=== PATIENT | male | born 1950 | race Caucasian/White ===

== ENCOUNTER → 2019-09-01 08:01 | Outpatient (BNVA) | payer MEDICARE, SELFPAY | PROVIDERS: Family Provider Physician Assistant; PCP Physician Assistant; Referring Provider Physician Assistant; Visit Provider Podiatrist Foot & Ankle Surgery | DX: E11.621 Type 2 diabetes mellitus with foot ulcer (principal); L97.509 Non-pressure chronic ulcer of other part of unspecified foot with unspecified severity | CPT/HCPCS: 73630 ==

== ENCOUNTER 2019-09-01 13:33 | Outpatient (CLI) | payer MEDICARE, SELFPAY | END 2019-09-01 13:34 | disposition home or self-care (01) | LOC: SPT 13:34 | PROVIDERS: Family Provider Physician Assistant; PCP Physician Assistant; Visit Provider Podiatrist Foot & Ankle Surgery | DX: L97.512 Non-pressure chronic ulcer of other part of right foot with fat layer exposed (principal) | CPT/HCPCS: L4361 ==

== ENCOUNTER 2019-09-16 13:18 | Observation (INO) | payer MEDICARE, SELFPAY ==
[2019-09-15 15:12] VITALS: BMI 28.4
[2019-09-16] VITALS (36 sets, daily range): BP systolic 123–204; BP diastolic 67–115; PULSE 82–115; RESP 7–28; TEMP 36.8–37; O2SAT 96–99
--- NOTE | 2019-09-16 07:00 | XACV_ITS ---
Wt: 93 kg BSA: 2.17 m2 Any Known Allergies: Penicillins Gender: Male : 1950 Exam Type: Invasive Peripheral Vascular Procedure(s): Procedure Description: Peripheral Cath Diagnostic Procedure Procedure Description: Peripheral vascular Intervention Procedure Description: PV Balloon Exam Priority: Routine Abdominal Diagnostic Findings Patient has peripheral arterial disease with a positive noninvasive study. He presents with limb ischemia due to nonhealing ulcers of the right toe and right heel. Lower abdominal aorta contains mild plaquing but is essentially a normal study. Lower Extremity Diagnostic Findings Patient has limb ischemia with ulcers of the right heel and the right toe. Noninvasive studies suggest SFA disease. Patient is [place] grade II, category 5; [place] stage IV. Both common iliacs are without significant disease. The internal iliacs are patent. Both external iliacs and common femoral arteries are without significant disease. On the right, there is a flush occlusion of the superficial femoral artery. This occlusion extends down to the adductor canal and the vessel reconstitutes via collaterals from the profunda. The popliteal has mild to moderate diffuse disease. The anterior tibial is occluded. There is severe diffuse disease of the tibial peroneal trunk. There is one-vessel runoff below the right knee. This appears to be the peroneal artery. It is mildly diffusely diseased. The posterior tibial artery is occluded. Lower Extremity Interventional Findings A crossover sheath was placed from the left common femoral artery. There was a flush occlusion of the vessel however I was able to place a wire down the superficial femoral artery. Plain old balloon angioplasty was unsuccessful. Some plaque was transferred into the profunda femoris. Atherectomy was performed which opened the artery. This was followed by drug-eluting balloon angioplasty. Subsequent to this, several more plain old balloon angioplasty procedures had to be performed in order to open the vessel. An adequate angiographic result was obtained. Conclusions Occlusion of the right superficial femoral artery from the origin down to the adductor canal. Difficult procedure with difficulty placing the wire. Plain old balloon angioplasty was unsuccessful. Atherectomy performed followed by drug-eluting balloon angioplasty. The vessel was open with minimal plaquing and minimal narrowing at the end of the procedure. Patient was hypertensive. Intra-arterial nitroglycerin was used frequently. The end result was adequate. No complications occurred during the procedure and required no further treatment. null was treated with 4 Balloon. Recommendations Continue current medical management and risk factor modification. Follow up with PCP as directed. Hemodynamic Data Phase:Rest AO : 175.0 mmHg / 114.0 mmHg ( 144.0 mmHg ) @ 2:52:00 AM 230.0 mmHg / 98.0 mmHg ( 157.0 mmHg ) @ 3:21:00 AM Access Site Site: Left Femoral artery Sheath Size: 6 Fr Hemost... Method: Suture Hemost... Success: Successful Procedure Details Findings Procedure Consent Obtained. Pre-Procedure Time Out. Identified patient by full name and date of as verbalized by the patient/guarantor. Does the consent match the physician's order: Yes. Accurate & Complete Informed Consent: Yes. Inpatient/Outpatient History & Physical on Chart: Yes. If H&P is completed, is and addenduem needed: No; If yes, is the addendum complete: N/A. Visualize and Verify Site with Patient/Guarantor: N/A. Relevant Radiology Images available: N/A. Pre-op teaching completed and patient verbalized understanding. The risks, benefits, and alternatives of sedation and/or procedure were discussed by physician. The patient agrees to continue. Procedure started. Correct patient, site and procedure confirmed by cath team. PERRLA. Strong, equal hand wrapper hands sprayer bilaterally. Lungs clear x 5 lobes. IV Site on Arrival: 20 gauge in the right anticubital. IV Fluids: 0.9% NaCl at KVO. 0 mL infused prior to sanitation laborer. Pre Procedural Pulses: bilateral dorsalis pedis was Doppled. Pre Procedural Pulses: bilateral posterior tibial was Doppled. Pre Procedural Pulses: bilateral radial was 3+. Oxygen started at 2liters/min via nasal canula. bilateral groins was prepped with chloroprep then draped in the usual sterile fashion. Physician notified. Baseline sample Acquired. HR: 95 BPM. Equipment: Peripheral. Cardiac Cath Pack. ACIST Manifold Kit Model BT 2000. Heparinized Saline (2 units/mL), 1000 mL bag. Physician arrived. Physician scrubbed in. Time out performed with cath team. Lidocaine 1% infiltrated to the left groin. Arterial access obtained. A 5Fr Contra catheter in over wire. Abdominal aortogram performed in AP @ 10 mL/sec for a total of 30 mL. Glidewire inserted. Catheter removed over the glide wire. A JJ 5F RIM 65 cm Diagnostic Catheter was advanced over the wire and used for Lower extremity arteriography. Right leg runoff 10 ml for total of 30 ml. Glidewire inserted. Catheter removed over the glide wire. Short 6 fr sheath exchanged for long 45 cm 6 fr Flexor sheath. Patient's family updated. SEEKER support catheter inserted over glidewire. Glidewire out. Hand injection performed. Glidewire inserted. SEEKER catheter removed over Glidewire. Side port of sheath attached to Normal Saline flush at KVO to maintain patency. Inflation number : 1 A AB [place] 35 INSURANCE FOLLOW UP REP Catheter [id number] was prepped and advanced across the Superficial Femoral, Right , then inflated to 6 BETTY for 0:49 seconds. Balloon pulled back into sheath to check results. Balloon back down. Inflation number: 2 The AB [place] 35 INSURANCE FOLLOW UP REP Catheter [id number] was reinflated across the Superficial Femoral, Right, to 6 BETTY for 1:05 seconds. Balloon out over wire. Results checked. SEEKER catheter inserted over Glidewire. Glidewire out. VIPERwire inserted through SEEKER catheter. SEEKER catheter out over VIPER wire. [place] 360 Peripheral atherectomy 2.00mm device inserted over VIPER wire. Orbital atherectomy performed in right SFA. Orbital atherectomy performed in right SFA. Orbital atherectomy performed in right SFA. Orbital atherectomy performed in right SFA. Orbital atherectomy performed in right SFA. Orbital atherectomy performed in right SFA. Family updated. Atherectomy device pulled back on wire to check results. Atherectomy device removed over VIPER wire. SEEKER catheter inserted over VIPER wire. Michel Reyes, ATMOSPHERIC PHYSICIST was relieved by Shreya Luevano RT as monitoring person. VIPER wire out. [place] wire inserted. Seeker out over glide wire. Inflation number : 3 A BARD 5FR Lutinox [id number] drug coated balloon was prepped and advanced across the Superficial Femoral, Right , then inflated to 7 BETTY for 1:02 seconds. Inflation number: 4 The BARD 5FR Lutinox [id number] drug coated balloon was reinflated across the Superficial Femoral, Right, to 7 BETTY for 1:02 seconds. Inflation number: 5 The BARD 5FR Lutinox [id number] drug coated balloon was reinflated across the Superficial Femoral, Right, to 7 BETTY for 1:02 seconds. family updated. Inflation number: 6 The BARD 5FR Lutinox [id number] drug coated balloon was reinflated across the Superficial Femoral, Right, to 10 BETTY for 1:04 seconds. Balloon out. checking results. Inflation number : 7 A AB [place] 35 OTW [id number] was prepped and advanced across the Superficial Femoral, Right , then inflated to 6 BETTY for 0:31 seconds. Inflation number: 8 The AB [place] 35 OTW [id number] was reinflated across the Superficial Femoral, Right, to 6 BTETY for 0:31 seconds. Inflation number: 9 The AB [place] 35 OTW [id number] was reinflated across the Superficial Femoral, Right, to 8 BETTY for 0:51 seconds. Inflation number: 10 The AB [place] 35 OTW [id number] was reinflated across the Superficial Femoral, Right, to 8 BETTY for 0:32 seconds. Balloon out. Inflation number : 11 A AB [place] 35 OTW [id number] was prepped and advanced across the Superficial Femoral, Right , then inflated to 8 BETTY for 1:02 seconds. Balloon out. checking results. Sheath upsized to a 6 Fr. Sheath(s) sutured into position with 2-0 silk and sterile 4x4's and Op-site applied over the site. No oozing or signs and symptoms of hematoma noted. Arterial sheath flushed and connected to tranducer and pressure bag with heparinized saline. Post Procedure: Pulses reassessed and unchanged. PERRLA. Strong, equal hand wrapper hands sprayer bilaterally. No VTE prophylaxis required. Total IV fluids: 137 mL. Contrast type used: Visipaque 320 mgI/mL, 500 mL bottle. Contrast Material : Visipaque 291 ml. Medication's Wasted: Heparin = 4000 units. Medication's Wasted: Lidocaine 1% = 10 mL. Medication's Wasted: Other = verapamil 3 mg. Post-op diagnosis: PAD. Complications: none. Estimated blood loss: 5mL-10mL. A Suture was successful obtaining hemostatsis at the Left Femoral artery insertion site. Procedure completed. Patient transferred by bed to CPRU. Vital chart was stopped. Procedure Medications Start: 8:36 AM Stop: 8:36 AM Medication: Versed Amount: 1 mg Route: I.V. Start: 8:36 AM Stop: 8:36 AM Medication: Fentanyl Amount: 50 mcg Route: I.V. Start: 8:43 AM Stop: 8:43 AM Medication: Versed Amount: 1 mg Route: I.V. Start: 8:43 AM Stop: 8:43 AM Medication: Fentanyl Amount: 50 mcg Route: I.V. Start: 9:05 AM Stop: 9:05 AM Medication: Versed Amount: 1 mg Route: I.V. Start: 9:05 AM Stop: 9:05 AM Medication: Fentanyl Amount: 50 mcg Route: I.V. Start: 9:12 AM Stop: 9:12 AM Medication: Versed Amount: 1 mg Route: I.V. Start: 9:12 AM Stop: 9:12 AM Medication: Fentanyl Amount: 50 mcg Route: I.V. Start: 9:32 AM Stop: 9:32 AM Medication: Versed Amount: 1 mg Route: I.V. Start: 9:32 AM Stop: 9:32 AM Medication: Fentanyl Amount: 50 mcg Route: I.V. Start: 9:56 AM Stop: 9:56 AM Medication: Nitrogylcerin Amount: 400 mcg Route: I.A. Start: 9:56 AM Stop: 9:56 AM Medication: Nitrogylcerin Amount: 400 mcg Route: I.A. Start: 9:58 AM Stop: 9:58 AM Medication: Versed Amount: 1 mg Route: I.V. Start: 9:59 AM Stop: 9:59 AM Medication: Fentanyl Amount: 50 mcg Route: I.V. Start: 10:00 AM Stop: 10:00 AM Medication: Nitrogylcerin Amount: 400 mcg Route: I.A. Start: 10:07 AM Stop: 10:07 AM Medication: Nitrogylcerin Amount: 400 mcg Route: I.A. Start: 10:11 AM Stop: 10:11 AM Medication: Nitrogylcerin Amount: 400 mcg Route: I.A. Start: 10:20 AM Stop: 10:20 AM Medication: Plavix Amount: 600 mg Route: P.O. I, the attending physician, have reviewed and verified all procedure medications. Yes, all medications given per verbal order History/Risk Factors Hypertension: Yes Dyslipidemia: No Diabetic Therapy: Insulin Peripheral Arterial Disease (PAD): Yes Myocardial Infarction ([place]): No Obesity: No Renal Disease: No Tobacco Use: Never Prior Interventions PCI: No CABG: No Valve Surgery: No Report Signatures Finalized by:Dr. Domenico Munguia MD on 09/16/2019 10:38:02 AM
[2019-09-16 07:48] LABS: Basophils # 0.1 10^3/uL (0.0-0.1); Basophils % 0.9 %; Eosinophils # 0.4 10^3/uL (0.0-0.8); Hematocrit 42.3 % (42.0-52.0); Hemoglobin 14.1 g/dL (11.7-16.6); Lymphocytes # 3.6 10^3/uL (0.8-4.8); Lymphocytes % 37.7 %; Mean Corpuscular HGB Conc 33.3 g/dL (30.0-36.0); Mean Corpuscular Hemoglobin 29.9 pg (28.0-34.0); Mean Corpuscular Volume 89.8 fL (80-94); Monocytes # 0.5 10^3/uL (0.2-0.9); Monocytes % 5.5 %; Neutrophils % 51.7 %; Nucleated Red Blood Cells % 0 %; Platelet Count 272 10^3/cmm (130-400); Red Blood Count 4.71 10^6/uL (4.1-5.3); Red Cell Distribution Width 11.9 % (12.1-15.1); White Blood Count 9.6 10^3/uL (4.0-10.0)
[2019-09-16 07:54] LABS: Anion Gap 14.5 (5-19); Blood Urea Nitrogen 26 mg/dL (8-23); Calcium 9.5 mg/dL (8.5-10.5); Carbon Dioxide 27 mmol/L (22-29); Chloride 104 mmol/L (98-107); Glomerular Filtration Rate 55.1 mL/min (90-130); Glucose 236 mg/dL (65-115); Osmolality Calculated 297 mOsm/kg (285-295); Potassium 4.5 mmol/L (3.5-5.1); Sodium 141 mmol/L (136-145)
[2019-09-16] MEDS: diphenhydrAMINE 50 mg Capsule PO (07:55)
--- NOTE | 2019-09-16 10:47 | SUR.PHASEI ---
Post Procedure Note Post cath. Returned to CPRU 3 via bed. Patient has no c/o. VS and assessments per flowsheet. Call light given. Informed to call for needs.
--- NOTE | 2019-09-16 10:50 | SUR.PHASEI ---
IV fluids Iv fluids running at 100 ml/hr as ordered post procedure by Dr Munguia.
--- NOTE | 2019-09-16 11:34 | SUR.PHASEI ---
BLOOD PRESSURE HIGH Dr Munguia notified of consistent b/p reading 190/100's. No other c/o noted. Verbal prn b/p med orders received.
[2019-09-16] MEDS: hyDRALAzine 20 mg/mL INJ 1 mL 10 MG IVP ×2 (11:54→14:06)
[2019-09-16] MEDS: fentaNYL 50 mcg/mL INJ 2mL IVP (15:24)
--- NOTE | 2019-09-16 19:03 | PC.NURSE ---
Addendum entered by Ajith Rodrigues RN 09/16/19 19:07: see note Original Note: all flow cardiac flow sheet vitals are documented in vitals.
--- NOTE | 2019-09-16 22:41 | PC.NURSE ---
Patient ambulated in russ with nurse. Patient pulses were doppled in both feet and both feet are warm. Patient states that he has pain in his right leg. Dr. Olvera notified. Oxycodone 5-325 mg ordered for q4 hour for pain. Dressing to left groin c/d/i. No bleeding or hematoma noted. VSS before and after ambulation.
[2019-09-16] MEDS: oxyCODONE-APAP 5-325 mg Tablet 1 TAB PO (23:02)
--- NOTE | 2019-09-16 23:17 | PC.NURSE ---
NS bag was showing up due at 10 AM. Order states to give 100 ml/hr for 8 hours. Asked day shift nurse to clarify if a bag had been hung and due to a computer glitch or something it did not save the scan. Nurse stated that patient had received their 8 hours of NS per order.
[2019-09-17] VITALS (8 sets, daily range): BP systolic 120–164; BP diastolic 65–81; PULSE 88–95; RESP 15–20; TEMP 36.6–36.8; O2SAT 94–971
[2019-09-17 04:48] LABS: Basophils # 0.1 10^3/uL (0.0-0.1); Basophils % 0.6 %; Eosinophils # 0.3 10^3/uL (0.0-0.8); Eosinophils % 2.7 %; Hematocrit 36.1 % (42.0-52.0); Hemoglobin 11.6 g/dL (11.7-16.6); Lymphocytes # 2.8 10^3/uL (0.8-4.8); Mean Corpuscular HGB Conc 32.1 g/dL (30.0-36.0); Mean Corpuscular Hemoglobin 29.1 pg (28.0-34.0); Mean Corpuscular Volume 90.7 fL (80-94); Monocytes # 0.7 10^3/uL (0.2-0.9); Monocytes % 7.4 %; Neutrophils # 5.8 10^3/uL (1.8-7.7); Neutrophils % 60.1 %; Nucleated Red Blood Cells % 0 %; Platelet Count 214 10^3/cmm (130-400); Red Blood Count 3.98 10^6/uL (4.1-5.3); Red Cell Distribution Width 12.1 % (12.1-15.1); White Blood Count 9.6 10^3/uL (4.0-10.0)
[2019-09-17 05:13] LABS: Anion Gap 13.5 (5-19); Blood Urea Nitrogen 25 mg/dL (8-23); Calcium 8.6 mg/dL (8.5-10.5); Carbon Dioxide 26 mmol/L (22-29); Chloride 104 mmol/L (98-107); Glomerular Filtration Rate 60.4 mL/min (90-130); Glucose 296 mg/dL (65-115); Osmolality Calculated 296 mOsm/kg (285-295); Potassium 4.5 mmol/L (3.5-5.1); Sodium 139 mmol/L (136-145)
--- NOTE | 2019-09-17 07:17 | PM.PN ---
Subjective Subjective: Interval history: Usman underwent intervention to his right superficial femoral artery yesterday via the left common femoral artery. He underwent balloon angioplasty, followed by atherectomy and then drug-eluting balloon angioplasty. The vessel was patent with reasonable flow at the end of the procedure. Patient has had pain in his thigh and in his leg since the procedure. He required some narcotic pain relievers last evening. He is still having some pain this morning. He is nervous about going home. His leg has been warm overnight. He was very hypertensive in the cardiac catheterization laboratory. He was hypertensive for a short period of time after the procedure. Overnight his blood pressure has settled down. Medications: Reviewed: Yes Vitals/I&O/Wt Last Vital Signs Temp 98 F 09/17/19 04:43 Pulse 90 09/17/19 04:43 Resp 19 H 09/17/19 04:43 BP 135/68 09/17/19 04:43 Pulse Ox 97 09/17/19 04:43 09/16/19 09/17/19 09/17/19 22:59 06:59 14:59 Intake Total 500 / 1060 300 / 1360 Output Total 1100 / 1100 Balance -600 / -40 300 / 260 Weight last 48 hrs Weight 204 lb Physical Exam Narrative: EXAM NARRATIVE: GENERAL: In general he looks and feels well but complains of some pain in his right thigh and his right ankle. HEENT: Exam within normal limits. NECK: Supple without jugular vein distention. The carotid upstroke is normal without bruits. BACK: Exam normal. LUNGS: Clear. HEART: Regular rate and rhythm. ABDOMEN: Benign without organomegaly or tenderness. EXTREMITIES: No edema. The left groin entry site is flat and dry without any bleeding, hematoma or other vascular anomaly. The right leg is warm. There are no abnormalities of the thigh, lower leg or foot. No palpable pulses are present. NEUROLOGIC: Exam normal. SKIN: Unremarkable. Data : 09/17/19 04:20 09/17/19 04:20 A&P Assessment and plan (1) Peripheral arterial disease: Status: Acute Code(s): I73.9 - Peripheral vascular disease, unspecified (2) Chronic ulcer of great toe of right foot with fat layer exposed: Status: Acute Code(s): L97.512 - Non-pressure chronic ulcer of other part of right foot with fat layer exposed (3) Diabetes: Status: Acute Code(s): E11.9 - Type 2 diabetes mellitus without complications (4) HTN (hypertension): Status: Acute Code(s): I10 - Essential (primary) hypertension Additional A&P Information He is uncomfortable going home given the degree of pain he has. We will hold onto him today. I will get him some pain medications and encouraged him to get up and around. His leg is warm. He has very poor if any flow below the knee so there is some possibility of some distal embolization which may be causing the pain in the foot. He did have some fairly significant pain during the atherectomy procedure. This may be residual causing the pain in the thigh. We will get him up and around today and see how he does. I will continue the Plavix. Attestations Medical Necessity Statement*: Patient needs to be changed to an inpatient. He is having too much pain to go home today. Coding Level of Care Code Acute Program/Music Director for Abdirizak Fwwilber History Detailed Exam Detailed Medical Decision Making Moderate Complexity Diagnoses Peripheral arterial disease I73.9 Chronic ulcer of great toe of right foot with fat layer exposed L97.512 Diabetes E11.9 HTN (hypertension) I10
[2019-09-17] MEDS: metoprolol succinate ER (24 HR) 25 mg Tablet 12.5 MG PO (08:53)
[2019-09-17] MEDS: clopidogrel 75 mg Tablet PO (08:54)
[2019-09-17] MEDS: lisinopril 20 mg Tablet PO (08:54)
[2019-09-17] MEDS: oxyCODONE-APAP 5-325 mg Tablet 2 TAB PO (08:55)
--- NOTE | 2019-09-17 16:03 | PC.CHAP ---
Pastoral Care Encounter/Spiritual Assessment Type of Contact [] Declined transmission calibration engineer visit [x] Patient/Family/Request visit [] Outpatient visit [] Follow-up visit [] Physician referral [] Code/Alert [x] Routine visit [] Staff referral [] Actively dying [] Patient sleeping [] Family support [] [] Out of room [] Palliative care [] [x] Receiving care in room [] Pre-surgical visit [] Trauma [x] Long length of stay [] ICU visit [] Other: Relational/Emotional Strength [x] Patient feels connected with others/family/visitors/staff [] Distress [] Loneliness/isolation [] Abandonment Spirituality of Patient [x] Person of Maryann [] Attends Anabaptism of their Maryann [x] Believes in Prayer [] Reads Bible or Temple materials [] There are Spiritual issues to be addressed Transformer Builder Interventions [x] Prayer [x] Active listening [x] Non-anxious presence [x] Spiritual/emotional support [] Crisis/trauma care [x] Spiritual counseling [] Bereavement support [] Provided bereavement packet [] Provided Bible/devotional materials [] Provided toy/stuffed animal, coloring book to patient or family member [] Provided Communion [] Anointing/[place] [] Salvation [x] Completed spiritual assessment [] Other: Impact on Illness or Injury [] Angry [x] Fearful [x] Anxious [] Often cries [] Exhaustion [x] Unable to work [] Unable to attend tenriism [x] Unable to walk/stand [] Unable to read [x] Unable to drive [] Unable to eat/drink [] Unable to sleep [] Unable to be with family [] Patient intubated [] Other: Summary / communication very good / Knows what is going on in his health Time spent with patient 10 mins
[2019-09-17] MEDS: sodium chloride 0.9% 1,000 ML 100 ML IV (17:14)
[2019-09-18 00:29] VITALS: BP 132/70; PULSE 91; RESP 18; TEMP 36.8; O2SAT 96
[2019-09-18] MEDS: ondansetron 2 mg/ML SDV 2 mL 4 MG IVP (02:14)
[2019-09-18 05:11] VITALS: BP 163/98; PULSE 99; RESP 19; TEMP 36.8; O2SAT 96
[2019-09-18 07:26] VITALS: BP 137/78; PULSE 95; RESP 20; O2SAT 96
--- NOTE | 2019-09-18 08:43 | PM.DCS ---
Discharge Providers Date of Admission: 09/16/19 13:18 Date of Discharge: September 18, 2019 Attending Provider at Admission: Domenico Munguia MD Attending Provider at Discharge: Domenico Munguia MD Primary Care Provider: Beatriz Brady Diagnoses at Discharge Discharge Diagnosis (1) Peripheral arterial disease: Status: Acute (2) Chronic ulcer of great toe of right foot with fat layer exposed: Status: Acute (3) Diabetes: Status: Acute (4) HTN (hypertension): Status: Acute Reason for Visit Reason for Visit: Reason For Visit: Chronic ulcer of great toe of right foot with fat Hospital Course Hospital Course: Patient underwent angiography of the right lower extremity. The procedure was done from the left common femoral artery. The superficial femoral artery on the right was occluded at the ostium. It was a flush occlusion. The profunda femoris was patent and provided collateral flow to the distal leg. The profunda femoris had modest diffuse disease. I placed a wire down the superficial femoral artery and into the vessels below the knee. The patient has very little flow below the right knee. The distal popliteal is occluded. There is 1 vessel which lights up via collaterals from a small vessel that arises from the popliteal artery. This is probably the posterior tibial artery. Balloon angioplasty did not open the superficial femoral artery. I used an atherectomy device which did open the vessel. There was a segment about 2 inches long in the midportion of the SFA which was especially difficult to get through. Following the atherectomy I performed balloon angioplasty with a drug-eluting balloon. There was reasonable flow down the SFA and into the distal vessels however there was relatively poor flow still below the knee. Additionally with the opening of the SFA the collateral flow from the profunda femoris was diminished relative to what was noted initially. There were no complications regarding the entry site. The left groin was flat and dry. The patient experienced a significant amount of pain in the mid thigh and in the right foot. This required narcotic pain relievers. He was reluctant to go home the following day because of the severity of the pain. For several hours after the procedure he had a fullness in the mid right thigh which is probably related to the edema associated with the atherectomy. The leg remained warm. The warmth extended all the way down to the toes. He has minimal Doppler pulses in the posterior tibial artery but nothing else due to the severity of the disease below the right knee. Over the ensuing 24 hours the pain improved significantly and is essentially gone by the time he is discharged. I believe the pain in the mid thigh is related to the arthrectomy and the pain in the distal leg and foot is probably related to showering of the below the knee vessels with pulverized plaque. Other cause may be secondary to decreasing collateral flow. Physical Exam Narrative: EXAM NARRATIVE: GENERAL: In general he looks and feels well at discharge HEENT: Exam within normal limits. [] NECK: Supple without jugular vein distention. The carotid upstroke is normal without bruits. BACK: Exam normal. LUNGS: Clear. HEART: Regular rate and rhythm. ABDOMEN: Benign without organomegaly or tenderness. EXTREMITIES: No edema. There is no more fullness or other abnormality of the right thigh. The entire right leg is warm with dopplerable pulses in the area of the posterior tibial. The skin is normal. There is good capillary refill. NEUROLOGIC: Exam normal. SKIN: Unremarkable. Discharge Data Data Completed and Pending: Completed Studies During Hospitalization Category Date Time Status NEUROLOGY EPILEPSY PHYSICIAN request for service Routin e Exams 09/16/19 07:00 Completed Vitals: Last Vital Signs Temp 98.2 F 09/18/19 05:11 Pulse 95 09/18/19 07:26 Resp 20 H 09/18/19 07:26 BP 137/78 09/18/19 07:26 Pulse Ox 96 09/18/19 07:26 Discharge Plan Discharge Patient Disposition: Home, Self-Care Condition: Stable Prescriptions: New clopidogrel 75 mg Tablet 75 mg PO DAILY Qty: 30 RF: 1 Adult Low Dose Aspirin 81 mg tablet,delayed release (DR/EC) 81 mg PO DAILY Qty: 100 RF: 0 Continued levothyroxine 100 mcg capsule 100 mcg PO QDAY RF: 0 vitamin B complex [B Complex-Vitamin B12] Tablet 1 tab PO QDAY RF: 0 garlic 1,000 mg capsule 1,000 mg PO QDAY RF: 0 turmeric root extract 500 mg capsule 500 mg PO QDAY RF: 0 Levemir U-100 Insulin 100 unit/mL solution 18 unit SUBCUT QAM RF: 0 lisinopril 20 mg tablet 20 mg PO QDAY RF: 0 metoprolol succinate 25 mg tablet extended release 24 hr 12.5 mg PO QDAY RF: 0 (DME) Diabetic Shoes Qty: 1 RF: 0 (DME) CAM WALKER Qty: 1 RF: 0 insulin detemir U-100 100 unit/mL Solution 8 unit SUBCUT QPM RF: 0 Ozempic 0.25 mg or 0.5 mg(2 mg/1.5 mL) Pen Injector 0.5 mg SUBCUT Q7D RF: 0 Discharge Orders: Discharge Order (Routine); Ordered 09/18/19 Ordered By: Domenico Munguia Referrals: Domenico Munguia MD [Physician] - 3 months () Fatou Stewart FNP [Nurse Practitioner] - 4-7 days ([facility] will be contacting you to schedule 2 follow-up appointments. 1. Fatou Stewart in 4 to 7 days for Wound check and Chem panel. 2. Dr. Munguia in 3 months. If you haven't heard from them by Friday afternoon, please call ) Discharge Diet: Diabetic Discharge Activity: Increase activity as tolerated and Limit activity as instructed Patient Instructions: Aspirin (By mouth), Clopidogrel (By mouth), Peripheral Artery Disease (DC), Hypertension (DC), Post Angiogram Home Care Instructions Activity Restrictions/Additional Instructions: No lifting over 5 pounds for 2 days. May walk, use stairs, drive as much as desired. Discharge Attestations Time Spent in Discharge Care*: greater than 30 min Quality Metrics Clinical Quality Measures During this hospital stay, did patient experience: None Coding Level of Care Code Acute Chief Wharfinger for Rembertog Fwd Diagnoses Peripheral arterial disease I73.9 Chronic ulcer of great toe of right foot with fat layer exposed L97.512 Diabetes E11.9 HTN (hypertension) I10
--- NOTE | 2019-09-18 08:53 | P.DS_ITS ---
Discharge Providers Date of Admission: 09/16/19 13:18 Date of Discharge: September 18, 2019 Attending Provider at Admission: Domenico Munguia MD Attending Provider at Discharge: Domenico Munguia MD Primary Care Provider: Beatriz Brady Diagnoses at Discharge Discharge Diagnosis (1) Peripheral arterial disease: Status: Acute (2) Chronic ulcer of great toe of right foot with fat layer exposed: Status: Acute (3) Diabetes: Status: Acute (4) HTN (hypertension): Status: Acute Reason for Visit Reason for Visit: Reason For Visit: Chronic ulcer of great toe of right foot with fat Hospital Course Hospital Course: Patient underwent angiography of the right lower extremity. The procedure was done from the left common femoral artery. The superficial femoral artery on the right was occluded at the ostium. It was a flush occlusion. The profunda femoris was patent and provided collateral flow to the distal leg. The profunda femoris had modest diffuse disease. I placed a wire down the superficial femoral artery and into the vessels below the knee. The patient has very little flow below the right knee. The distal popliteal is occluded. There is 1 vessel which lights up via collaterals from a small vessel that arises from the popliteal artery. This is probably the posterior tibial artery. Balloon angioplasty did not open the superficial femoral artery. I used an atherectomy device which did open the vessel. There was a segment about 2 inches long in the midportion of the SFA which was especially difficult to get through. Following the atherectomy I performed balloon angioplasty with a drug- eluting balloon. There was reasonable flow down the SFA and into the distal vessels however there was relatively poor flow still below the knee. Additionally with the opening of the SFA the collateral flow from the profunda femoris was diminished relative to what was noted initially. There were no complications regarding the entry site. The left groin was flat and dry. The patient experienced a significant amount of pain in the mid thigh and in the right foot. This required narcotic pain relievers. He was reluctant to go home the following day because of the severity of the pain. For several hours after the procedure he had a fullness in the mid right thigh which is probably related to the edema associated with the atherectomy. The leg remained warm. The warmth extended all the way down to the toes. He has minimal Doppler pulses in the posterior tibial artery but nothing else due to the severity of the disease below the right knee. Over the ensuing 24 hours the pain improved significantly and is essentially gone by the time he is discharged. I believe the pain in the mid thigh is related to the arthrectomy and the pain in the distal leg and foot is probably related to showering of the below the knee vessels with pulverized plaque. Other cause may be secondary to decreasing col lateral flow. 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 Routin e Exams 09/16/19 07:00 Completed Vitals: Last Vital Signs Temp 98.2 F 09/18/19 05:11 Pulse 95 09/18/19 07:26 Resp 20 H 09/18/19 07:26 BP 137/78 09/18/19 07:26 Pulse Ox 96 09/18/19 07:26 Discharge Plan Discharge Patient Disposition: Home, Self-Care Condition: Stable Prescriptions: New clopidogrel 75 mg Tablet 75 mg PO DAILY Qty: 30 RF: 1 aspirin [Adult Low Dose Aspirin] 81 mg tablet,delayed release (DR/EC) 81 mg PO DAILY Qty: 100 RF: 0 Continued levothyroxine 100 mcg capsule 100 mcg PO QDAY RF: 0 vitamin B complex [B Complex-Vitamin B12] Tablet 1 tab PO QDAY RF: 0 garlic 1,000 mg capsule 1,000 mg PO QDAY RF: 0 turmeric root extract 500 mg capsule 500 mg PO QDAY RF: 0 Levemir U-100 Insulin 100 unit/mL solution 18 unit SUBCUT QAM RF: 0 lisinopril 20 mg tablet 20 mg PO QDAY RF: 0 metoprolol succinate 25 mg tablet extended release 24 hr 12.5 mg PO QDAY RF: 0 (DME) Diabetic Shoes Qty: 1 RF: 0 (DME) CAM WALKER Qty: 1 RF: 0 insulin detemir U-100 100 unit/mL Solution 8 unit SUBCUT QPM RF: 0 Ozempic 0.25 mg or 0.5 mg(2 mg/1.5 mL) Pen Injector 0.5 mg SUBCUT Q7D RF: 0 Discharge Orders: Discharge Order (Routine); Ordered 09/18/19 Ordered By: Domenico Munguia Referrals: Domenico Munguia MD [Physician] - 3 months Fatou Stewart FNP [Nurse Practitioner] - 4-7 days (Check left groin entry site and entire right leg. Chemistry panel as well.) Discharge Diet: Diabetic Activity Restrictions/Additional Instructions: No lifting over 5 pounds for 2 days. May walk, use stairs, drive as much as desired. 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
[2019-09-18] MEDS: clopidogrel 75 mg Tablet PO (09:10)
[2019-09-18] MEDS: lisinopril 20 mg Tablet PO (09:10)
[2019-09-18] MEDS: metoprolol succinate ER (24 HR) 25 mg Tablet 12.5 MG PO (09:10)
[2019-09-18 10:27] VITALS: BP 137/78; PULSE 95; RESP 20; O2SAT 96
[2019-09-18] MEDS: ondansetron 4 MG Tablet PO (11:23)
== END 2019-09-18 11:30 | disposition home or self-care (01) ==
LOC: CSU 13:19
PROVIDERS: Admitting Provider Internal Medicine Cardiovascular Disease; Family Provider Physician Assistant; PCP Physician Assistant; Visit Provider Internal Medicine Cardiovascular Disease
DX: I77.1 Stricture of artery (principal); I73.9 Peripheral vascular disease, unspecified; L97.512 Non-pressure chronic ulcer of other part of right foot with fat layer exposed; E11.9 Type 2 diabetes mellitus without complications; I10 Essential (primary) hypertension
CPT/HCPCS: 12345; 36415; 37225; 75625; 75710; 80048; 85025; 96360; 96361; 96372; 96375; C1724; C1725; C1769; C1887; C1894; C2623; G0378; J0360; J1644; J1815; J2001; J2250; J2405; J3010; J7030; Q0162; Q0163; Q9967

== ENCOUNTER → 2019-09-30 15:17 | Outpatient (BNVA) | payer MEDICARE, SELFPAY | PROVIDERS: Family Provider Physician Assistant; PCP Physician Assistant; Visit Provider Podiatrist Foot & Ankle Surgery | DX: L97.519 Non-pressure chronic ulcer of other part of right foot with unspecified severity (principal) | CPT/HCPCS: 73630 ==

== ENCOUNTER → 2019-10-04 15:10 | Outpatient (BNVA) | payer MEDICARE, SELFPAY | PROVIDERS: Family Provider Physician Assistant; PCP Physician Assistant; Visit Provider Nurse Practitioner Family | DX: I73.9 Peripheral vascular disease, unspecified (principal) | CPT/HCPCS: 80048 ==

== ENCOUNTER 2019-10-26 07:53 | Outpatient (RCR) | payer MEDICARE, SELFPAY | END 2019-11-02 23:59 | disposition home or self-care (01) | LOC: WOUND 07:53 | PROVIDERS: Family Provider Physician Assistant; PCP Physician Assistant; Visit Provider Thoracic Surgery (Cardiothoracic Vascular Surgery) | DX: E11.621 Type 2 diabetes mellitus with foot ulcer (principal); L97.519 Non-pressure chronic ulcer of other part of right foot with unspecified severity | CPT/HCPCS: 99204; 99212; G0463 ==

== ENCOUNTER 2019-11-30 08:10 | Outpatient (RCR) | payer MEDICARE, SELFPAY | END 2019-12-02 23:59 | disposition home or self-care (01) | LOC: WOUND 08:10 | PROVIDERS: Family Provider Physician Assistant; PCP Physician Assistant; Visit Provider Thoracic Surgery (Cardiothoracic Vascular Surgery) | DX: E11.621 Type 2 diabetes mellitus with foot ulcer (principal); L97.512 Non-pressure chronic ulcer of other part of right foot with fat layer exposed | CPT/HCPCS: 97597; 99212; G0463 ==

== ENCOUNTER 2019-12-03 09:51 | Outpatient (CLI) | payer MEDICARE, SELFPAY | END 2019-12-03 09:52 | disposition home or self-care (01) | LOC: WOUND 12-06 13:29 | PROVIDERS: Family Provider Physician Assistant; PCP Physician Assistant; Visit Provider Surgery | DX: E11.621 Type 2 diabetes mellitus with foot ulcer (principal); L97.511 Non-pressure chronic ulcer of other part of right foot limited to breakdown of skin | CPT/HCPCS: 97597 ==

== ENCOUNTER 2019-12-08 10:44 | Outpatient (CLI) | payer MEDICARE, SELFPAY | END 2019-12-08 10:45 | disposition home or self-care (01) | LOC: WOUND 10:46 | PROVIDERS: Family Provider Physician Assistant; PCP Physician Assistant; Visit Provider Thoracic Surgery (Cardiothoracic Vascular Surgery) | DX: E11.621 Type 2 diabetes mellitus with foot ulcer (principal); L97.512 Non-pressure chronic ulcer of other part of right foot with fat layer exposed | CPT/HCPCS: 97597; A6446 ==

== ENCOUNTER 2019-12-13 06:01 | Day surgery (SDC) | payer MEDICARE, SELFPAY ==
[2019-12-10 10:05] VITALS: BMI 25.7
--- NOTE | 2019-12-13 06:20 | ECG_ITS ---
Measurements Intervals [place] Rate: 90 P: 56 NE: 171 QRS: 41 QRSD: 91 T: 58 QT: 353 QTc: 433 SINUS RHYTHM WITH OCCASIONAL SUPRAVENTRICULAR PREMATURE COMPLEXES NONSPECIFIC T-WAVE ABNORMALITY No previous ECG available for comparison Electronically Signed On 12-13-2019 18:48:42 CDT by Lito Louis M.D. [id number]
--- NOTE | 2019-12-13 06:24 | W.PM.OPSUD ---
Surgery/Procedure H&P Update DATE OF PROCEDURE: December 13, 2019 DATE H&P PERFORMED: 12/08/19 H&P UPDATE INFORMATION: I have reviewed H&P completed within last 30 days, I have examined patient prior to procedure and No changes to prior documentation PRIMARY INDICATION FOR PROCEDURE: gangrene right great toe PLANNED PROCEDURE: Operation Date: 12/13/19 07:00 Proposed Procedures p Debridement of great right toe(Right) - Pantera Moraes MD s poss Amputation Toe/s(Right) - Pantera Moraes MD
[2019-12-13 06:29] LABS: Glucose Point of Care 185 mg/dL (70-110)
[2019-12-13] MEDS: vancomycin 1,000 MG in sodium chloride 0.9% 250 ML 250 MG IV (06:35)
[2019-12-13] MEDS: sodium chloride 0.9% 1,000 ML 30 ML IV (06:35)
[2019-12-13 06:40] LABS: Basophils # 0.1 10^3/uL (0.0-0.1); Basophils % 0.8 %; Eosinophils # 0.4 10^3/uL (0.0-0.8); Hematocrit 44.9 % (42.0-52.0); Hemoglobin 14.5 g/dL (11.7-16.6); Lymphocytes # 3.9 10^3/uL (0.8-4.8); Lymphocytes % 35.7 %; Mean Corpuscular HGB Conc 32.3 g/dL (30.0-36.0); Mean Corpuscular Hemoglobin 29.5 pg (28.0-34.0); Mean Corpuscular Volume 91.4 fL (80-94); Mean Platelet Volume 9.6 fL (7.4-10.4); Monocytes # 0.6 10^3/uL (0.2-0.9); Monocytes % 5.9 %; Neutrophils # 5.7 10^3/uL (1.8-7.7); Neutrophils % 53.3 %; Nucleated Red Blood Cells % 0 %; Platelet Count 348 10^3/cmm (130-400); Red Blood Count 4.91 10^6/uL (4.1-5.3); White Blood Count 10.8 10^3/uL (4.0-10.0)
[2019-12-13 06:41] VITALS: BP 214/109; PULSE 97; RESP 18; TEMP 37.1; O2SAT 99
--- NOTE | 2019-12-13 06:47 | P.ANESASSM_ITS ---
Pre-Anesthetic Assessment Pre-Anesthetic Assessment: Height/Weight: Height 1.8 m Weight 83.915 kg Temp Pulse Resp BP Pulse Ox 98.8 F 97 18 214/109 99 12/13/19 06:41 12/13/19 06:41 12/13/19 06:41 12/13/19 06:41 12/13/19 06:41 Preop Diagnosis: Gangrene Proposed Procedure: Operation Date: 12/13/19 07:00 Proposed Procedures p Debridement of great right toe(Right) - Pantera Moraes MD s poss Amputation Toe/s(Right) - Pantera Moraes MD Familial anesthetic complications: PONV Was Beta Alexey taken within 24 hours: N/A Last intake: Intake Last Liquid Date 12/12/19 Last Liquid Time 21:30 Last Solid Date 12/12/19 Last Solid Time 17:00 Social: Social History: No alcohol and No tobacco Exam: Pre-Anes Outpt Exam: alert, oriented x 3, clear to auscultation bilaterally and regular rate & rhythm Airway: Cervical ROM: WNL MP: 3 Dentition: False Pulmonary: Pulmonary: None reported CV/HEM: CV/HEM: HTN (currently not treated) and PVD Comments: on plavix for blood clot in leg s/p endovascular treatment - last took plavix on : : None reported Hepatic: Hepatic: None reported GI: GI: Hiatus hernia Comments: no acid reflux this morning Metabolic: Metabolic: DM and Thyroid Musc/skel: Musc/skel: None reported Neuropsych: Neuropsych: None reported Anesthetic Plan: ASA status: 3 Anesthesia: MAC Other: MAC as tolerated Risk of > 500 ml blood loss (7ml/kg in children): No Meds/Allergies Current Medications: Current Medications Generic Name Dose Route Start Last Admin Trade Name Freq PRN Reason Stop Dose Admin Sodium Chloride 1,000 mls @ 30 ml s/hr 12/13/19 06:15 12/13/19 06:35 Sodium Chloride 0.9% IV 12/14/19 06:14 30 mls/hr .Q24H SAHARA Administration Vancomycin HCl 1,0 00 mg/ 250 mls @ 250 mls /hr 12/13/19 07:00 12/13/19 06:35 Sodium Chloride IV 12/13/19 07:59 250 mls/hr ONCE ONE Administration Protocol PFSH Anesthesia PFSH: Medical History (Updated 12/10/19 @ 09:53 by Chanelle Aparicio) Diabetes HTN (hypertension) Surgical History S/P cataract extraction S/P cholecystectomy S/P tonsillectomy Social History Smoking and tobacco status: never smoked Alcohol intake: never Household members: spouse Marital status: Current occupational status: retired Data Anesthesia CBC & Chem 7: 12/13/19 06:25 Other Labs: Laboratory Results - last 48 hr 12/13/19 12/13/19 06:25 06:26 WBC 10.8 H RBC 4.91 Hgb 14.5 Hct 44.9 MCV 91.4 MCH 29.5 MCHC 32.3 RDW 12.0 L Plt Count 348 MPV 9.6 Neut % (Auto) 53.3 Lymph % (Auto) 35.7 [place] % (Auto) 5.9 Eos % (Auto) 4.0 Baso % (Auto) 0.8 Neut # (Auto) 5.7 Lymph # (Auto) 3.9 [place] # (Auto) 0.6 Eos # (Auto) 0.4 Baso # (Auto) 0.1 Nucleated RBC % (auto) 0 Nucleated RBCs # 0.0 POC Glucose 185 Cardiac Studies: No Data to Display
[2019-12-13] MEDS: midazolam 1 mg/mL INJ 2 mL 2 MG IVP (06:48)
[2019-12-13 06:55] LABS: Anion Gap 15.1 (5-19); Blood Urea Nitrogen 21 mg/dL (8-23); Calcium 8.7 mg/dL (8.5-10.5); Carbon Dioxide 28 mmol/L (22-29); Chloride 103 mmol/L (98-107); Glomerular Filtration Rate 60.4 mL/min (90-130); Glucose 206 mg/dL (65-115); Osmolality Calculated 297 mOsm/kg (285-295); Potassium 4.1 mmol/L (3.5-5.1); Sodium 142 mmol/L (136-145)
[2019-12-13] MEDS: vancomycin 1,000 MG SDV 1000 MG IRRIGATION (07:25)
[2019-12-13] MEDS: lidocaine 1% INJ 20 mL IM (07:25)
--- NOTE | 2019-12-13 08:13 | PM.OP ---
Operative Report Date of procedure: December 13, 2019 Pre-op Diagnosis: Gangrene right great toe Post-op diagnosis: same Procedure Done: Right great toe amputation distal one half Specimens removed/disposition: Right great toe Surgeon: Pantera Moraes Anesthesia: MAC and Nerve Block (Digital nerve block with 1% lidocaine to right great toe) Estimated blood loss (mL): 20 Complications: None Condition: stable Disposition: same day Brief History: 69-year-old gentleman has been followed in wound care services for gangrene of the distal one half of the right great toe with prior history of arrhythmia. This is been treated conservatively but is failed to heal and appears to represent full-thickness tissue loss of the distal one half of the right great toe. He was also evaluated by Dr. Campos who also concurred with recommendation for attempted debridement and possible amputation. Details of risk the procedure were carefully and frankly discussed. Proper consents have been reviewed and signed. Procedure: Mr. Alvarez it was appropriately marked for the correct side. He was taken operating room theater where he underwent IV conscious sedation anesthesia monitoring. His entire right foot and lower leg was sterilely prepped and draped. 1% lidocaine was utilized to perform a digital block to the right great toe. As expected, with initial debridement there was full tissue loss down to the distal phalanx of the distal one half of the right great toe. Therefore, this was incised circumferentially at the line of demarcation. He is also noted that there is some erythema beginning to develop on the dorsum of the right great toe proximally as well. This is a new finding. After completion of the incision line this was continued down to the phalanx which was then transected utilizing bone rongeur. I then completed debridement of the bone by continuing down to the interphalangeal joint and remove the articular surface of the proximal phalanx. There was mild bleeding noted. Cautery was not required. Wound was irrigated with a large amounts of antibiotic solution. Hemostasis confirmed. We then performed a primary closure initially with a 2-0 nylon suture in an interrupted mattress fashion. This was further secured with interrupted 3-0 nylon suture. Sterile dressing was applied. He tolerated procedure well was awakened and taken back to the outpatient surgery department. We will continue Levaquin 500 mg daily for the next week. He will follow-up in wound care services on December 14 at 10 AM.
[2019-12-13 08:14] VITALS: BP 170/85; PULSE 81; RESP 16; TEMP 36.6; O2SAT 99
--- NOTE | 2019-12-13 08:20 | ANE.PACU2 ---
 Inpatient post-anesthesia follow up: Airway intact: Yes Vital signs: Temperature 97.9 F Pulse Rate 81 Respiratory Rate 16 Blood Pressure 170/85 Pulse Oximetry 99 Oxygen Delivery Me thod Room Air Oxygen Flow Rate Fraction of Inspir ed Oxygen Hydration adequate: Yes Nausea and vomiting: No Pain level: 1 Mental status: Baseline
[2019-12-13 08:34] VITALS: BP 188/91; PULSE 78; RESP 18; O2SAT 99
== END 2019-12-13 09:10 | disposition home or self-care (01) ==
PROVIDERS: Family Provider Physician Assistant; PCP Physician Assistant; Visit Provider Thoracic Surgery (Cardiothoracic Vascular Surgery)
PROC: (CPT 28160; principal; 2019-12-13 07:00)
DX: I96 Gangrene, not elsewhere classified (principal); L97.512 Non-pressure chronic ulcer of other part of right foot with fat layer exposed; I10 Essential (primary) hypertension; Z79.02 Long term (current) use of antithrombotics/antiplatelets; E11.9 Type 2 diabetes mellitus without complications
CPT/HCPCS: 28160; 12345; 36415; 36416; 80048; 82962; 85025; 88305; 93005; 96365; 96374; J2001; J2250; J2704; J3010; J3370; J7030; J7050

== ENCOUNTER 2019-12-15 09:47 | Outpatient (RCR) | payer MEDICARE, SELFPAY | END 2020-01-02 23:59 | disposition home or self-care (01) | LOC: WOUND 09:47 | PROVIDERS: Family Provider Physician Assistant; PCP Physician Assistant; Visit Provider Thoracic Surgery (Cardiothoracic Vascular Surgery) | DX: E11.621 Type 2 diabetes mellitus with foot ulcer (principal); L97.512 Non-pressure chronic ulcer of other part of right foot with fat layer exposed | CPT/HCPCS: 99202; 99212; L3260 ==

== ENCOUNTER 2019-12-22 09:53 | Outpatient (CLI) | payer MEDICARE, SELFPAY | END 2019-12-22 09:54 | disposition home or self-care (01) | LOC: WOUND 09:55 | PROVIDERS: Family Provider Physician Assistant; PCP Physician Assistant; Visit Provider Thoracic Surgery (Cardiothoracic Vascular Surgery) | DX: Z09 Encounter for follow-up examination after completed treatment for conditions other than malignant neoplasm (principal); Z89.421 Acquired absence of other right toe(s) | CPT/HCPCS: 99212; L4387 ==

== ENCOUNTER 2019-12-29 09:56 | Outpatient (CLI) | payer MEDICARE, SELFPAY | END 2019-12-29 09:57 | disposition home or self-care (01) | LOC: WOUND 09:57 | PROVIDERS: Family Provider Physician Assistant; PCP Physician Assistant; Visit Provider Thoracic Surgery (Cardiothoracic Vascular Surgery) | DX: Z89.421 Acquired absence of other right toe(s) (principal) | CPT/HCPCS: 99212 ==

== ENCOUNTER 2020-01-05 09:15 | Outpatient (CLI) | payer MEDICARE, SELFPAY | END 2020-01-05 09:16 | disposition home or self-care (01) | LOC: WOUND 09:16 | PROVIDERS: Family Provider Physician Assistant; PCP Physician Assistant; Visit Provider Thoracic Surgery (Cardiothoracic Vascular Surgery) | DX: T81.89XA Other complications of procedures, not elsewhere classified, initial encounter (principal); Y83.8 Other surgical procedures as the cause of abnormal reaction of the patient, or of later complication, without mention of misadventure at the time of the procedure; Z89.421 Acquired absence of other right toe(s) | CPT/HCPCS: 97597 ==

== ENCOUNTER 2020-01-12 10:26 | Outpatient (CLI) | payer MEDICARE, SELFPAY | END 2020-01-12 10:27 | disposition home or self-care (01) | LOC: WOUND 10:29 | PROVIDERS: Family Provider Physician Assistant; PCP Physician Assistant; Visit Provider Thoracic Surgery (Cardiothoracic Vascular Surgery) | DX: T81.89XA Other complications of procedures, not elsewhere classified, initial encounter (principal); Y83.8 Other surgical procedures as the cause of abnormal reaction of the patient, or of later complication, without mention of misadventure at the time of the procedure; Z89.421 Acquired absence of other right toe(s) | CPT/HCPCS: G0463 ==

== ENCOUNTER 2020-01-19 10:39 | Outpatient (CLI) | payer MEDICARE, SELFPAY | END 2020-01-19 10:40 | disposition home or self-care (01) | LOC: WOUND 10:44 | PROVIDERS: Family Provider Physician Assistant; PCP Physician Assistant; Visit Provider Thoracic Surgery (Cardiothoracic Vascular Surgery) | DX: T81.89XA Other complications of procedures, not elsewhere classified, initial encounter (principal); Y83.8 Other surgical procedures as the cause of abnormal reaction of the patient, or of later complication, without mention of misadventure at the time of the procedure; Z89.421 Acquired absence of other right toe(s) | CPT/HCPCS: 11042 ==

== ENCOUNTER 2020-01-26 10:27 | Outpatient (CLI) | payer MEDICARE, SELFPAY | END 2020-01-26 10:28 | disposition home or self-care (01) | LOC: WOUND 10:29 | PROVIDERS: Family Provider Physician Assistant; PCP Physician Assistant; Visit Provider Thoracic Surgery (Cardiothoracic Vascular Surgery) | DX: T81.89XA Other complications of procedures, not elsewhere classified, initial encounter (principal); Y83.8 Other surgical procedures as the cause of abnormal reaction of the patient, or of later complication, without mention of misadventure at the time of the procedure; Z89.421 Acquired absence of other right toe(s) | CPT/HCPCS: 11042 ==

== ENCOUNTER 2020-02-02 09:43 | Outpatient (CLI) | payer MEDICARE, SELFPAY | END 2020-02-02 09:44 | disposition home or self-care (01) | LOC: WOUND 09:48 | PROVIDERS: Family Provider Physician Assistant; PCP Physician Assistant; Visit Provider Thoracic Surgery (Cardiothoracic Vascular Surgery) | DX: T81.89XA Other complications of procedures, not elsewhere classified, initial encounter (principal); Y83.8 Other surgical procedures as the cause of abnormal reaction of the patient, or of later complication, without mention of misadventure at the time of the procedure; Z89.421 Acquired absence of other right toe(s) | CPT/HCPCS: 11042 ==

== ENCOUNTER 2020-02-09 10:25 | Outpatient (CLI) | payer MEDICARE, SELFPAY | END 2020-02-09 10:26 | disposition home or self-care (01) | LOC: WOUND 10:27 | PROVIDERS: Family Provider Physician Assistant; PCP Physician Assistant; Visit Provider Thoracic Surgery (Cardiothoracic Vascular Surgery) | DX: T81.89XA Other complications of procedures, not elsewhere classified, initial encounter (principal); Y83.8 Other surgical procedures as the cause of abnormal reaction of the patient, or of later complication, without mention of misadventure at the time of the procedure; Z89.421 Acquired absence of other right toe(s) | CPT/HCPCS: 11042 ==

== ENCOUNTER 2020-02-16 15:23 | Outpatient (CLI) | payer MEDICARE, SELFPAY | END 2020-02-16 15:24 | disposition home or self-care (01) | PROVIDERS: Family Provider Physician Assistant; PCP Physician Assistant; Visit Provider Emergency Medicine | DX: T81.89XA Other complications of procedures, not elsewhere classified, initial encounter (principal); Z89.421 Acquired absence of other right toe(s) | CPT/HCPCS: 11042 ==

== ENCOUNTER 2020-02-22 11:08 | Outpatient (CLI) | payer MEDICARE, SELFPAY | END 2020-02-22 11:09 | disposition home or self-care (01) | LOC: WOUND 11:12 | PROVIDERS: Family Provider Physician Assistant; PCP Physician Assistant; Visit Provider Thoracic Surgery (Cardiothoracic Vascular Surgery) | DX: T81.89XA Other complications of procedures, not elsewhere classified, initial encounter (principal); Z89.421 Acquired absence of other right toe(s) | CPT/HCPCS: 11042 ==

== ENCOUNTER 2020-02-29 08:23 | Outpatient (CLI) | payer MEDICARE, SELFPAY | END 2020-02-29 08:24 | disposition home or self-care (01) | LOC: WOUND 08:28 | PROVIDERS: Family Provider Physician Assistant; PCP Physician Assistant; Visit Provider Thoracic Surgery (Cardiothoracic Vascular Surgery) | DX: E11.621 Type 2 diabetes mellitus with foot ulcer (principal); L97.512 Non-pressure chronic ulcer of other part of right foot with fat layer exposed; Z89.421 Acquired absence of other right toe(s) | CPT/HCPCS: 11042 ==

== ENCOUNTER 2020-03-07 08:36 | Outpatient (CLI) | payer MEDICARE, SELFPAY | END 2020-03-07 08:37 | disposition home or self-care (01) | LOC: WOUND 08:43 | PROVIDERS: Family Provider Physician Assistant; PCP Physician Assistant; Visit Provider Thoracic Surgery (Cardiothoracic Vascular Surgery) | DX: E11.621 Type 2 diabetes mellitus with foot ulcer (principal); L97.512 Non-pressure chronic ulcer of other part of right foot with fat layer exposed; Z89.421 Acquired absence of other right toe(s) | CPT/HCPCS: 11042; L3260 ==

== ENCOUNTER 2020-03-14 08:40 | Outpatient (CLI) | payer MEDICARE, SELFPAY | END 2020-03-14 08:41 | disposition home or self-care (01) | LOC: WOUND 08:40 | PROVIDERS: Family Provider Physician Assistant; PCP Physician Assistant; Visit Provider Emergency Medicine | DX: E11.621 Type 2 diabetes mellitus with foot ulcer (principal); L97.512 Non-pressure chronic ulcer of other part of right foot with fat layer exposed; Z89.421 Acquired absence of other right toe(s) | CPT/HCPCS: 11042 ==

== ENCOUNTER 2020-03-21 08:35 | Outpatient (CLI) | payer MEDICARE, SELFPAY | END 2020-03-21 08:36 | disposition home or self-care (01) | LOC: WOUND 08:36 | PROVIDERS: Family Provider Physician Assistant; PCP Physician Assistant; Visit Provider Nurse Practitioner Family | DX: E11.621 Type 2 diabetes mellitus with foot ulcer (principal); L97.512 Non-pressure chronic ulcer of other part of right foot with fat layer exposed; Z89.421 Acquired absence of other right toe(s) | CPT/HCPCS: 11042 ==

== ENCOUNTER → 2020-03-28 08:20 | Outpatient (BNVA) | payer MEDICARE, SELFPAY | PROVIDERS: Family Provider Physician Assistant; PCP Physician Assistant; Referring Provider Physician Assistant; Visit Provider Specialist | DX: G62.9 Polyneuropathy, unspecified (principal); R42 Dizziness and giddiness; R20.2 Paresthesia of skin | CPT/HCPCS: 99204 ==

== ENCOUNTER 2020-04-04 10:39 | Outpatient (CLI) | payer MEDICARE, SELFPAY | END 2020-04-04 10:40 | disposition home or self-care (01) | LOC: WOUND 10:41 | PROVIDERS: Family Provider Physician Assistant; PCP Physician Assistant; Visit Provider Thoracic Surgery (Cardiothoracic Vascular Surgery) | DX: E11.621 Type 2 diabetes mellitus with foot ulcer (principal); L97.512 Non-pressure chronic ulcer of other part of right foot with fat layer exposed; Z89.421 Acquired absence of other right toe(s) | CPT/HCPCS: 11042 ==

== ENCOUNTER 2020-04-11 08:04 | Outpatient (CLI) | payer MEDICARE, SELFPAY | END 2020-04-11 08:05 | disposition home or self-care (01) | LOC: WOUND 08:07 | PROVIDERS: Family Provider Physician Assistant; PCP Physician Assistant; Visit Provider Thoracic Surgery (Cardiothoracic Vascular Surgery) | DX: Z09 Encounter for follow-up examination after completed treatment for conditions other than malignant neoplasm (principal) | CPT/HCPCS: 99212 ==

== ENCOUNTER → 2020-04-13 08:04 | Outpatient (BNVA) | payer MEDICARE, SELFPAY | PROVIDERS: Family Provider Physician Assistant; PCP Physician Assistant; Referring Provider Physician Assistant; Visit Provider Internal Medicine | DX: E11.22 Type 2 diabetes mellitus with diabetic chronic kidney disease (principal); E11.42 Type 2 diabetes mellitus with diabetic polyneuropathy; E11.51 Type 2 diabetes mellitus with diabetic peripheral angiopathy without gangrene; E78.5 Hyperlipidemia, unspecified; I10 Essential (primary) hypertension; Z86.39 Personal history of other endocrine, nutritional and metabolic disease | CPT/HCPCS: 95909; 95910; 99204 ==

== ENCOUNTER → 2020-05-25 07:52 | Outpatient (BNVA) | payer MEDICARE, SELFPAY | PROVIDERS: Family Provider Physician Assistant; PCP Physician Assistant; Visit Provider Internal Medicine | DX: E11.22 Type 2 diabetes mellitus with diabetic chronic kidney disease (principal); E11.42 Type 2 diabetes mellitus with diabetic polyneuropathy; E11.51 Type 2 diabetes mellitus with diabetic peripheral angiopathy without gangrene; E78.5 Hyperlipidemia, unspecified; I10 Essential (primary) hypertension; Z86.39 Personal history of other endocrine, nutritional and metabolic disease | CPT/HCPCS: 99214 ==

== ENCOUNTER 2020-06-12 15:50 | Emergency (ER) | payer MEDICARE, SELFPAY ==
[2020-06-12] VITALS (8 sets, daily range): BP systolic 150–221; BP diastolic 87–114; PULSE 82–97; RESP 16–27; TEMP 36.6–36.7; O2SAT 96–99; BMI 31.8
--- NOTE | 2020-06-12 17:56 | ECG_ITS ---
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 Measurements Intervals [place] Rate: 99 P: 48 MT: 163 QRS: 21 QRSD: 95 T: 131 QT: 325 QTc: 419 Interpretive Statements SINUS RHYTHM POSSIBLE LEFT ATRIAL ENLARGEMENT [-0.1mV P WAVE IN V1/V2] POSSIBLE RIGHT VENTRICULAR CONDUCTION DELAY [RSR (QR) IN V1/V2] NONSPECIFIC T-WAVE ABNORMALITY Compared to ECG 12/13/2019 06:30:16 No significant changes Electronically Signed On 06-12-2020 18:40:59 UNISHEAR OPERATOR by Christin Esquivel M.D. [id number] f
--- NOTE | 2020-06-12 18:13 | XR_ITS ---
WS: [id number] XR chest 1V portable [id number] REASON FOR EXAM: CP/SOB FINDINGS: No previous examination for comparison. Infiltrative density in the medial right lower lung field and more prominently in the left lower lung field. There is blunting of the left costophrenic angle. No other significant pulmonary parenchymal or pleural abnormality. Mild tortuosity of the thoracic aorta. The heart is at the upper limits of normal in size. 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 XR/XR chest 1V portable [id number] IMPRESSION: No previous examination for comparison. However, changes are seen likely repres enting acute or subacute pneumonitis.
[2020-06-12 19:01] LABS: Basophils # 0.1 10^3/uL (0.0-0.1); Basophils % 0.9 %; Eosinophils # 0.2 10^3/uL (0.0-0.8); Eosinophils % 2.5 %; Hematocrit 44.7 % (42.0-52.0); Hemoglobin 14.2 g/dL (11.7-16.6); Lymphocytes # 2.7 10^3/uL (0.8-4.8); Lymphocytes % 28.6 %; Mean Corpuscular HGB Conc 31.8 g/dL (30.0-36.0); Mean Corpuscular Hemoglobin 29.8 pg (28.0-34.0); Mean Corpuscular Volume 93.7 fL (80-94); Monocytes # 0.5 10^3/uL (0.2-0.9); Monocytes % 5.7 %; Neutrophils # 5.92 10^3/uL (1.8-7.7); Nucleated Red Blood Cells % 0 %; Platelet Count 271 10^3/cmm (130-400); Red Blood Count 4.77 10^6/uL (4.1-5.3); Red Cell Distribution Width 12.3 % (12.1-15.1); White Blood Count 9.6 10^3/uL (4.0-10.0)
[2020-06-12 19:06] LABS: INR 0.98 (0.8-1.2)
[2020-06-12 19:07] LABS: Partial Thromboplastin Time 28.6 SECONDS (23.9-36.7)
[2020-06-12 19:10] LABS: D Dimer 0.77 ug/mIFEU (0-0.59)
[2020-06-12 19:15] LABS: Troponin(5th) Baseline 56 ng/L (0-15)
[2020-06-12 19:23] LABS: Alanine Aminotransferase 26 U/L (0-41); Alkaline Phosphatase 111 IU/L (40-130); Anion Gap 13.4 (5-19); Aspartate Amino Transferase 14 U/L (0-40); Blood Urea Nitrogen 24 mg/dL (8-23); Carbon Dioxide 28 mmol/L (22-29); Chloride 104 mmol/L (98-107); Globulin 1.6 g/dL (1.3-4.6); Glomerular Filtration Rate 54.9 mL/min (90-130); Glucose 303 mg/dL (65-115); NT Pro B Type Natriuretic Pept 5903 pg/mL (0-125); Osmolality Calculated 307 mOsm/kg (285-295); Potassium 4.4 mmol/L (3.5-5.1); Sodium 141 mmol/L (136-145); Total Bilirubin 0.3 mg/dL (0.15-1.2); Total Protein 5.6 g/dL (6.6-8.7)
[2020-06-12 22:26] LABS: Troponin 5 2HR 53.45 ng/L (0-15)
[2020-06-12 22:30] LABS: Troponin 5 2HR Delta -2.55 ABS# (0-10)
--- NOTE | 2020-06-12 22:49 | ED_ITS ---
HPI - Chest Pain General: Chief Complaint: Chest Pain Stated Complaint: CHEST PAIN/sob/swelling in legs Time Seen by Provider: 06/12/20 15:52 Source: patient and family Mode of arrival: ambulatory Limitations: no limitations History of Present Illness: HPI narrative: Patient presents to the emergency department with symptoms that have been going on for about a month now. His c omplaints include a chest heaviness, he states he has no real pain but just a heaviness that is there usually on exertion. He has also had associated worsening shortness of breath, orthopnea and leg s welling. He has gained about 23 pounds in about 2 weeks. He has not been able to lay down flat for at least 1 week and has to sleep in a recliner, however even with that he still gets short of breath at night. He is therefore here to be evaluated complaint: chest heaviness Onset (ago): month(s) (1) Timing of current episode: constant Prior episodes: Yes Onset: during rest Pain location: substernal Pain radiation: none Severity: mild Quality: heaviness Relieving factors: nothing Exacerbating factors: nothing Context: recent illness Associated symptoms: Reports dyspnea and leg edema; Deny abdominal pain, diaphoresis, fever(s), nausea, palpitations, sense of impending doom, syncope or vomiting Review of Systems General: Reports: 10 or more systems reviewed and unremarkable except in HPI and below Const: Denies: fever(s) or diaphoresis Eyes: Denies: change in vision or blurry vision ENMT: Denies: throat pain, enlarged tonsils, odynophagia, hoarseness, mouth pain or swelling of lips/tongue Card: Denies: palpitations or syncope Resp: Reports: dyspnea GI: Denies: abdominal pain, nausea or vomiting : Denies: flank pain, dysuria, urinary frequency, urinary urgency or urinary hesitancy Musc: Denies: neck pain, back pain or extremity swelling Skin/Breast: Denies: rash, pruritus or erythema Neuro: Denies: headache(s), numbness in extremities or weakness in extremities Endo: Denies: polyuria, polydipsia or tired all the time PFS ED PFSH: Medical History Amputation toe Diabetes HTN (hypertension) Kidney stone Surgical History S/P cataract extraction S/P cholecystectomy S/P tonsillectomy Family History Father Cancer LUNG Mother CAD (coronary artery disease) Diabetes CHF (congestive heart failure) Myocardial infarction Social History Smoking and tobacco status: never smoked Alcohol intake: never Household members: spouse Marital status: Current occupational status: retired Physical Exam Const: COMMON NORMALS: no acute distress, average body habitus, patient oriented x3, no limitations, healthy appearing, alert and well nourished HENMT: COMMON NORMALS: normocephalic, atraumatic and moist oral mucous membranes HEAD & SCALP: normocephalic and atraumatic Neck/C-Spine: COMMON NORMALS: no meningeal signs and no JVD Resp: COMMON NORMALS: normal respiratory effort, No retractions, No use of accessory muscles and percussion normal AUSCULTATION: rales bilateral at the base PERCUSSION: percussion normal Cardio: COMMON NORMALS: no JVD, regular rate, regular rhythm, S1 normal heart sound present, S2 normal heart sound present, No gallops present (Cardio), No clicks present (Cardio), No murmurs present (Cardio), No rub (Cardio) and Peripheral pulses 2+ throughout RATE: regular rate RHYTHM: regular rhythm HEART SOUNDS: S1 normal heart sound present and S2 normal heart sound present PERIPHERAL PULSES: Peripheral pulses 2+ throughout GI: COMMON NORMALS: Normal to inspection, nondistended, normoactive bowel sounds present, Soft to palpation, non-tender, No hepatosplenomegaly present, no masses and no bruits PALPATION: Yes Soft to palpation and Yes No hepatosplenomegaly present Extremity: COMMON NORMALS: normal to inspection, full ROM, capillary refill normal, no calf tenderness and no pedal edema GENERAL: Yes edema (2-3+) Neuro: COMMON NORMALS: patient oriented x3 SENSORIUM/ORIENTATION: Yes alert MENINGEAL SIGNS: Yes no meningeal signs Skin: COMMON NORMALS: no rashes or lesions noted, no wounds, turgor normal, no jaundice, no petechiae and no mottling GENERAL SKIN EXAM: no rashes or lesions noted and turgor normal Course Reevaluation(s): Reevaluation #1: Discussed his lab and imaging findings with him. He appears to be in congestive heart failure. This is a new diagnosis for him and ideally I would like to admit him, however he is not requiring oxygen, he is saturating 97 to 98% on room air. Vital signs are all normal. He is not in any distress, so I think it is reasonable for us to manage him outpatient especially as currently the hospital is full and surrounding hospitals in the state are also full. The patient voiced understanding and is in agreement with the plan. We will order an outpatient echocardiogram who discharged him home with a prescription for oral furosemide. Time: 22:49 Vital Signs: Vital signs: Vital Signs Temperature 97.9 F 06/12/20 23:07 Pulse Rate 94 06/12/20 23:07 Respiratory Rate 16 06/12/20 23:07 Blood Pressure 171/95 06/12/20 23:07 Pulse Oximetry 97 06/12/20 22:00 MDM - Chest Pain MDM Narrative: Medical decision making narrative: 70-year-old male who presents to the emergency department with clinical features consistent with new onset congestive heart failure. Symptoms have been going on for about a month. In the emergency department the patient is not requiring oxygen, does not appear significantly fluid overloaded. We have not been able to get any other patients admitted to any hospital in [place]. Since he is clinically stable, not requiring oxygen, I think he is stable to be discharged home and worked up on an outpatient basis. We will obtain an outpatient echocardiogram. We will start him on oral furosemide and his primary care provider can continue with his management and add beta-blockers and BENEDICT inhibitors to his medications. Medical Records: Attestation: I reviewed the patient's medical records. Lab Data: Attestation: I reviewed the patient's lab results. Labs: Lab Results 06/12/20 06/12/20 06/12/20 Range/Units 16:08 16:08 16:08 WBC 9.6 (4.0-10.0) 10^3/ uL RBC 4.77 (4.1-5.3) 10^6/u L Hgb 14.2 (11.7-16.6) g/dL Hct 44.7 (42.0-52.0) % MCV 93.7 (80-94) fL MCH 29.8 (28.0-34.0) pg MCHC 31.8 (30.0-36.0) g/dL RDW 12.3 (12.1-15.1) % Plt Count 271 (130-400) 10^3/c mm MPV 11.0 H (7.4-10.4) fL Neut % (Auto) 62.0 % Lymph % (Auto) 28.6 % Spink % (Auto) 5.7 % Eos % (Auto) 2.5 % Baso % (Auto) 0.9 % Neut # (Auto) 5.92 (1.8-7.7) 10^3/u L Lymph # (Auto) 2.7 (0.8-4.8) 10^3/u L Spink # (Auto) 0.5 (0.2-0.9) 10^3/u L Eos # (Auto) 0.2 (0.0-0.8) 10^3/u L Baso # (Auto) 0.1 (0.0-0.1) 10^3/u L Nucleated RBC % (a uto) 0 % Nucleated RBCs # 0.0 /100WBC PT 13.30 (12.1-14.9) SECO NDS INR 0.98 (0.8-1.2) APTT 28.6 (23.9-36.7) SECO NDS D-Dimer 0.77 H (0-0.59) ug/mIFE U Sodium 141 (136-145) mmol/L Potassium 4.4 (3.5-5.1) mmol/L Chloride 104 (98-107) mmol/L Carbon Dioxide 28 (22-29) mmol/L Anion Gap 13.4 (5-19) BUN 24 H (8-23) mg/dL Creatinine 1.3 H (0.7-1.2) mg/dL GFR Calculation 54.9 L (90-130) mL/min Glucose 303 H (65-115) mg/dL Calculated Osmolal ity 307 H (285-295) mOsm/k g Calcium 9.0 (8.5-10.5) mg/dL Total Bilirubin 0.3 (0.15-1.2) mg/dL AST 14 (0-40) U/L ALT 26 (0-41) U/L Alkaline Phosphata se 111 (40-130) IU/L Troponin T Baselin e (0-15) ng/L Troponin T 120 Min soraya (0-15) ng/L Delta Troponin T (0-10) ABS# NT-Pro-B Natriuret Pep 5903 H (0-125) pg/mL Total Protein 5.6 L (6.6-8.7) g/dL Albumin 4.0 (3.5-5.2) g/dL Globulin 1.6 (1.3-4.6) g/dL 06/12/20 06/12/20 Range/Units 16:08 19:38 WBC (4.0-10.0) 10^3/ uL RBC (4.1-5.3) 10^6/u L Hgb (11.7-16.6) g/dL Hct (42.0-52.0) % MCV (80-94) fL MCH (28.0-34.0) pg MCHC (30.0-36.0) g/dL RDW (12.1-15.1) % Plt Count (130-400) 10^3/c mm MPV (7.4-10.4) fL Neut % (Auto) % Lymph % (Auto) % Spink % (Auto) % Eos % (Auto) % Baso % (Auto) % Neut # (Auto) (1.8-7.7) 10^3/u L Lymph # (Auto) (0.8-4.8) 10^3/u L Spink # (Auto) (0.2-0.9) 10^3/u L Eos # (Auto) (0.0-0.8) 10^3/u L Baso # (Auto) (0.0-0.1) 10^3/u L Nucleated RBC % (a uto) % Nucleated RBCs # /100WBC PT (12.1-14.9) SECO NDS INR (0.8-1.2) APTT (23.9-36.7) SECO NDS D-Dimer (0-0.59) ug/mIFE U Sodium (136-145) mmol/L Potassium (3.5-5.1) mmol/L Chloride (98-107) mmol/L Carbon Dioxide (22-29) mmol/L Anion Gap (5-19) BUN (8-23) mg/dL Creatinine (0.7-1.2) mg/dL GFR Calculation (90-130) mL/min Glucose (65-115) mg/dL Calculated Osmolal ity (285-295) mOsm/k g Calcium (8.5-10.5) mg/dL Total Bilirubin (0.15-1.2) mg/dL AST (0-40) U/L ALT (0-41) U/L Alkaline Phosphata se (40-130) IU/L Troponin T Baselin e 56 H (0-15) ng/L Troponin T 120 Min soraya 53.45 H (0-15) ng/L Delta Troponin T -2.55 L (0-10) ABS# NT-Pro-B Natriuret Pep (0-125) pg/mL Total Protein (6.6-8.7) g/dL Albumin (3.5-5.2) g/dL Globulin (1.3-4.6) g/dL Imaging Data^: CXR: Attestation: I personally reviewed and interpreted this imaging study as follows: My impression: Pulmonary vascular congestion EKG Data^: EKG 1: Attestation: I personally reviewed and interpreted this EKG as follows: EKG interpretation date: 06/12/20 EKG interpretation time: 15:58 Prior EKG tracings: not available for review Interpretation: Normal sinus rhythm. Heart rate [address] changes. Discharge Plan Discharge Patient Disposition: Home Clinical Impression: Congestive heart failure (CHF) Qualifiers: Heart failure type: unspecified Heart failure chronicity: unspecified Qualified Code(s): I50.9 - Heart failure, unspecified Condition: Stable Prescriptions: New Lasix 20 mg tablet 20 mg PO QAM Qty: 30 RF: 0 Continued levothyroxine 100 mcg capsule 100 mcg PO QDAY RF: 0 vitamin B complex [B Complex-Vitamin B12] Tablet 1 tab PO QDAY RF: 0 garlic 1,000 mg capsule 1,000 mg PO DAILY RF: 0 turmeric root extract 500 mg capsule 500 mg PO QDAY RF: 0 Levemir U-100 Insulin 100 unit/mL solution 20 unit SUBCUT QAM RF: 0 Adult Low Dose Aspirin 81 mg tablet,delayed release (DR/EC) 81 mg PO DAILY Qty: 90 RF: 0 insulin detemir U-100 100 unit/mL solution 10 unit SUBCUT QPM RF: 0 Multi For Him 1 tab PO DAILY RF: 0 alpha lipoic acid 1 tab PO DAILY RF: 0 resveratrol 1 tab PO DAILY RF: 0 Discharge Orders: Discharge Order (Routine); Ordered 06/12/20 Ordered By: Joe Johnson Referrals: Beatriz Brady PA [Primary Care Provider] - 1-3 days Discharge Diet: Low Salt Discharge Activity: Increase activity as tolerated Patient Instructions: Heart Failure (ED) Activity Restrictions/Additional Instructions: Return for any new or worsening symptoms. Follow-up with your primary care provider within 3 days. Take the medication as prescribed. You will be contacted by case management to schedule an outpatient ultrasound of your heart. It is also called an echocardiogram. Coding Level of Care Code ED Mgmt Specialist for Abdirizak Fwd Exam Comprehensive
[2020-06-12] MEDS: FUROsemide 40 mg Tablet PO (22:59)
--- NOTE | 2020-06-13 10:07 | DCPLANNER ---
computer security manager had message to schedule an outpatient echo cardiogram for patient. computer security manager faxed order for the echo to centralized scheduling. computer security manager will call for appointment information.
--- NOTE | 2020-06-28 09:50 | DCPLANNER ---
Patient has an echo cardiogram scheduled for Friday, July 17, 2020 at 8:45. Centralized scheduling called patient with appointment information.
--- NOTE | 2020-07-21 08:12 | DCPLANNER ---
Patient had a follow up appointment scheduled for 07.17.20 for an echo - patient did attend appointment.
== END 2020-06-12 23:10 | disposition home or self-care (01) ==
PROVIDERS: Emergency Provider Family Medicine; PCP Physician Assistant
DX: I11.0 Hypertensive heart disease with heart failure (principal); I50.9 Heart failure, unspecified; E11.9 Type 2 diabetes mellitus without complications; Z79.82 Long term (current) use of aspirin; Z79.4 Long term (current) use of insulin
CPT/HCPCS: 12345; 36415; 71045; 80053; 83880; 84484; 85025; 85378; 85610; 85730; 93005; 96374; 99283; 99284

== ENCOUNTER 2020-07-06 07:27 | Outpatient (CLI) | payer MEDICARE, SELFPAY ==
[2020-07-06 08:50] VITALS: BMI 28.1
--- NOTE | 2020-07-06 08:51 | NMCV_ITS ---
NM ely perf SPECT r/s* [id number] KimUsman mcgill Age: 70 Gender: M : 1950 Exam Date: 07/06/2020 08:51 Ordering Phys: Beatriz Brady Technologist: SAMEER Coon Exam Location: [facility] Indications: HEART FAILURE STRESS TEST Please see separate stress test report in [facility] for full findings IMAGE PROTOCOL Rest/Stress 1 Lexiscan Day Radiopharmaceutical Dose (mCi) Administration Site Administered by Rest: Tc-99m 10.9 IV SAMEER Swain Sestamibi Stress:Tc-99m 32.0 IV SAMEER Swain Sestamibi Rest: 06-Jul-2020 60 Discovery 630 Stress: 06-Jul-2020 30 Discovery 630 0.4mg Lexiscan. Supine position only as patient was unable to lay prone. SPECT RESULTS Technical Quality: Excellent Raw Data Analysis: Normal Image Corrections: No attenuation or motion correction applied Summed Stress Score: 13 Summed Rest Score: 3 Summed Difference Score: 10 PERFUSION FINDINGS There is a large in size severe in intensity partially reversible perfusion defect in apical, apical septum, inferior and apical lateral soto. 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 FUNCTIONAL RESULTS (calculated via Gated SPECT) Stress Image LV EF (%): 32 Stress EDV (mL):182 TID: 1.22 Stress ESV (mL):124 FUNCTIONAL FINDINGS: LV systolic function is severely reduced and is 32%. Elevated transient ischemic dilation ratio of 1.22 is noted. IMPRESSIONS 1. Abnormal myocardial perfusion imaging. 2. Partially reversible perfusion defect of apical, apical lateral, apical septal and inferior soto. 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 3. Is severely reduced LV systolic function with EF of 32%. Elevated transient ischemic dilation ratio of 1.22 is noted. This could represent multivessel disease/subendocardial ischemia. Harry Bryant MD (Electronically Signed) Final Date: 06 July 2020 16:38 S
--- NOTE | 2020-07-06 08:51 | ECG_ITS ---
[facility] Test Date: 2020-07-06 Pat Name: Usman Alvarez Department: Room: Gender: Male Kettle Coordinator: : 1950 Requested By: Beatriz Viveros Order Number: [id number] Jim MD: Harry Bryant M.D. Interpretive Statements NAME OF STUDY: LEXISCAN SESTAMIBI STRESS TEST INDICATION: [Acute CHF] Procedure: The baseline blood pressure was 197/98 mmHg with a heart rate of 91 bpm. The electrocardiogram showed normal sinus rhythm with normal ST and T's. The Lexiscan was infused for a duration of 20 seconds. A total of 0.4 mg of Lexiscan was infused. The stress phase was continued for a total of 5 minutes. Heart rate at end of stress phase was 97 bpm, with a blood pressure 140/79 mmHg. The EKG at the peak infusion revealed sinus rhythm with no significant ST-T wave changes. Sestamibi was injected 20 seconds after Lexiscan infusion. Blood pressure at the end of recovery phase was not recorded mmHg with a heart rate of 94 bpm. No significant EKG changes during recovery phase. Conclusion: 1. Normal EKG response to Lexiscan infusion. 2. No Lexiscan induced chest pain or cardiac arrhythmia. 3. Normal blood pressure and heart rate response. 4. Sestamibi/sestamibi perfusion scan pending; see separate report. Electronically Signed On 07-06-2020 18:49:29 GRAIN SACKER by Harry Bryant M.D. [email or web address]
[2020-07-06] MEDS: regadenoson 0.4 Mg/5 ml Syringe IVP (09:33)
--- NOTE | 2020-07-06 09:33 | SUR.PREOP ---
Patient reports no pain or discomfort prior to the start of the procedure.
[2020-07-06 09:51] VITALS: BP 140/79; PULSE 94
== END 2020-07-06 07:28 | disposition home or self-care (01) ==
LOC: RAD 07:33 → CDL 08:35
PROVIDERS: PCP Physician Assistant; Visit Provider Physician Assistant
DX: I50.20 Unspecified systolic (congestive) heart failure (principal); I77.819 Aortic ectasia, unspecified site
CPT/HCPCS: 78452; 93017; A9500; J2785

== ENCOUNTER 2020-07-17 08:42 | Outpatient (CLI) | payer MEDICARE, SELFPAY ==
--- NOTE | 2020-07-17 08:53 | USCV_ITS ---
Usman Alvarez Age: 70 Gender: M : 1950 Exam Date: 07/17/2020 09:10 Ordering Phys: Joe Johnson MD [facility] [place]: Marbin Chapman [place] [facility] [place]ication: congestive heart failure BP: 144 / 83 HR: 84 Rhythm: Sinus Technical Quality: Fair MEASUREMENTS (Male / Female) Normal Values 2D ECHO LV Diastolic Diameter PLAX 5.0 cm 4.2 - 5.9 / 3.9 - 5.3 cm LV Systolic Diameter PLAX 3.3 cm IVS Diastolic Thickness 1.0 cm 0.6 - 1.0 / 0.6 - 0.9 cm IVS Systolic Thickness 1.9 cm LVPW Diastolic Thickness 1.0 cm 0.6 - 1.0 / 0.6 - 0.9 cm LVPW Systolic Thickness 1.7 cm LVOT Diameter 2.0 cm LV Ejection Fraction 2D Teich 61.8 % LV Ejection Fraction MOD 2C 58.9 % LV Ejection Fraction 2C AL 61.1 % LA Diameter 3.2 cm LA Width 4.6 cm LA Height 3.9 cm RA Width 2.9 cm RA Height 3.3 cm Aorta at Sinotubular Diameter 2.4 cm M-MODE LV Diastolic Diameter MM 4.8 cm 4.2 - 5.9 / 3.9 - 5.3 cm LV Systolic Diameter MM 3.3 cm LV Ejection Fraction MM Teich 60.0 % IVS Diastolic Thickness MM 1.4 cm 0.6 - 1.0 / 0.6 - 0.9 cm IVS Systolic Thickness MM 1.9 cm LVPW Diastolic Thickness MM 1.5 cm 0.6 - 1.0 / 0.6 - 0.9 cm LVPW Systolic Thickness MM 1.9 cm RV Diastolic Diameter MM 1.3 cm Aortic Annulus Diameter 3.5 cm LA Ao Ratio MM 0.8 MV E Point Septal Separation 0.9 cm DOPPLER AV Peak Velocity 111.0 cm/s LVOT Peak Velocity 86.0 cm/s AV Area Cont Eq vti 2.1 cm squared AV Area Cont Eq pk 2.5 cm squared MV Area PHT 6.5 cm squared Mitral E to A Ratio 0.8 MV E' Velocity 55.5 cm/s Mitral E to MV E' Ratio 14.8 Mitral E to LV E' Lateral Ratio 14.4 Mitral E to LV E' Septal Ratio 15.4 TR Peak Velocity 85.0 cm/s TR Peak Gradient 2.9 mmHg TV Peak E Velocity 50.0 cm/s Right Atrial Pressure 3.0 mmHg Pulmonary Artery Systolic Pressu 5.9 mmHg FINDINGS Left Ventricle Mildly increased left ventricular cavity size. Moderately decreased left ventricular systolic function. Left ventricular ejection fraction is estimated at 30-35 %. There is moderate global hypokinesis probably more pronounced in septal wall. Grade II diastolic dysfunction, moderately elevated filling pressures. Right Ventricle Normal right ventricular size and systolic function. Right ventricular systolic pressure 5.9 mmHg. Right Atrium Normal right atrial size. Left Atrium Mildly increased left atrial size. Mitral Valve Moderate mitral annular calcification. Moderately thickened mitral valve. No mitral valve stenosis. Trace mitral valve regurgitation. Aortic Valve Moderately thickened and calcified aortic valve. No aortic valve stenosis. Tricuspid Valve Structurally normal tricuspid valve. Trace tricuspid valve regurgitation. Pulmonic Valve Pulmonic valve not well visualized. Pericardium No pericardial effusion. Aorta Normal size aortic root. CONCLUSIONS 1. This is a technically difficult study. 2. Mildly increased left ventricular cavity size. Moderately decreased left ventricular systolic function. Left ventricular ejection fraction is estimated at 30-35 %. There is moderate global hypokinesis probably more pronounced in septal wall. Grade II diastolic dysfunction, moderately elevated filling pressures. 3. Mildly increased left atrial size. 4. No prior similar studies to compare. Christin Esquivel MD (Electronically Signed) Final Date: 17 July 2020 17:52 S
== END 2020-07-17 08:43 | disposition home or self-care (01) ==
LOC: US 08:44
PROVIDERS: PCP Physician Assistant; Visit Provider Family Medicine
DX: I50.9 Heart failure, unspecified (principal); I07.1 Rheumatic tricuspid insufficiency; I70.0 Atherosclerosis of aorta
CPT/HCPCS: 93306

== ENCOUNTER → 2020-08-08 10:42 | Outpatient (BNVA) | payer MEDICARE, SELFPAY | PROVIDERS: PCP Physician Assistant; Visit Provider Internal Medicine Cardiovascular Disease | DX: I73.9 Peripheral vascular disease, unspecified (principal); I50.41 Acute combined systolic (congestive) and diastolic (congestive) heart failure; R94.39 Abnormal result of other cardiovascular function study; I10 Essential (primary) hypertension; E78.2 Mixed hyperlipidemia; G62.9 Polyneuropathy, unspecified | CPT/HCPCS: 80048; 83735; 83880 ==

== ENCOUNTER → 2020-08-22 08:29 | Outpatient (BNVA) | payer MEDICARE, SELFPAY | PROVIDERS: PCP Physician Assistant; Visit Provider Internal Medicine | DX: E11.22 Type 2 diabetes mellitus with diabetic chronic kidney disease (principal); N18.9 Chronic kidney disease, unspecified; E11.42 Type 2 diabetes mellitus with diabetic polyneuropathy; E11.51 Type 2 diabetes mellitus with diabetic peripheral angiopathy without gangrene; E78.2 Mixed hyperlipidemia; I10 Essential (primary) hypertension; Z86.39 Personal history of other endocrine, nutritional and metabolic disease | CPT/HCPCS: 99215 ==

== ENCOUNTER 2020-08-23 12:39 | Outpatient (CLI) | payer MEDICARE, SELFPAY ==
[2020-08-23 16:59] LABS: Estmated Average Glucose 223; Hemoglobin A1C 9.4 % (4.0-6.0)
== END 2020-08-23 12:40 | disposition home or self-care (01) ==
PROVIDERS: PCP Physician Assistant; Visit Provider Internal Medicine
DX: E11.22 Type 2 diabetes mellitus with diabetic chronic kidney disease (principal)
CPT/HCPCS: 83036

== ENCOUNTER → 2020-08-29 14:00 | Outpatient (BNVA) | payer MEDICARE, SELFPAY | PROVIDERS: PCP Physician Assistant; Visit Provider Podiatrist Foot & Ankle Surgery | DX: E11.51 Type 2 diabetes mellitus with diabetic peripheral angiopathy without gangrene (principal); L97.509 Non-pressure chronic ulcer of other part of unspecified foot with unspecified severity; Z89.429 Acquired absence of other toe(s), unspecified side; L97.512 Non-pressure chronic ulcer of other part of right foot with fat layer exposed | CPT/HCPCS: 87070; 87075; 87077; 87186; 87205 ==

== ENCOUNTER 2020-08-31 14:11 | Outpatient (CLI) | payer MEDICARE, SELFPAY | END 2020-08-31 14:12 | disposition home or self-care (01) | LOC: WOUND 14:12 | PROVIDERS: PCP Physician Assistant; Visit Provider Thoracic Surgery (Cardiothoracic Vascular Surgery) | DX: E11.621 Type 2 diabetes mellitus with foot ulcer (principal); L97.512 Non-pressure chronic ulcer of other part of right foot with fat layer exposed | CPT/HCPCS: 11042; 99203; L3260 ==

== ENCOUNTER → 2020-09-05 09:44 | Outpatient (BNVA) | payer MEDICARE, SELFPAY | PROVIDERS: PCP Physician Assistant; Visit Provider Specialist | DX: R42 Dizziness and giddiness (principal); E11.40 Type 2 diabetes mellitus with diabetic neuropathy, unspecified; Z79.4 Long term (current) use of insulin; Z89.411 Acquired absence of right great toe | CPT/HCPCS: 99214 ==

== ENCOUNTER 2020-09-07 14:02 | Outpatient (CLI) | payer MEDICARE, SELFPAY | END 2020-09-07 14:03 | disposition home or self-care (01) | PROVIDERS: PCP Physician Assistant; Visit Provider Thoracic Surgery (Cardiothoracic Vascular Surgery) | DX: E11.621 Type 2 diabetes mellitus with foot ulcer (principal); L97.512 Non-pressure chronic ulcer of other part of right foot with fat layer exposed; Z89.421 Acquired absence of other right toe(s); M79.671 Pain in right foot; L53.9 Erythematous condition, unspecified; Z89.411 Acquired absence of right great toe | CPT/HCPCS: 11042; 73630; 87070; 87176; 87205; L4397 ==

== ENCOUNTER 2020-09-07 16:05 | Outpatient (CLI) | payer MEDICARE, SELFPAY ==
--- NOTE | 2020-09-07 16:25 | XR_ITS ---
WS: [id number] Right foot, 3 views, 09/07/2020 Clinical Data: NON HEALING ULCER/RIGHT FOOT PAIN Comparison: Right foot, 09/30/2019. Findings: There is amputation of the distal portion of the right great toe. The base of the first toe proximal phalanx remains. The remainder the foot is unremarkable. 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
== END 2020-09-07 16:06 | disposition home or self-care (01) ==
LOC: RAD 16:08
PROVIDERS: PCP Physician Assistant; Visit Provider Thoracic Surgery (Cardiothoracic Vascular Surgery)
DX: M79.671 Pain in right foot (principal); Z89.411 Acquired absence of right great toe; L97.512 Non-pressure chronic ulcer of other part of right foot with fat layer exposed; L53.9 Erythematous condition, unspecified
CPT/HCPCS: 73630

== ENCOUNTER 2020-09-13 08:09 | Outpatient (CLI) | payer MEDICARE, SELFPAY ==
--- NOTE | 2020-09-13 08:19 | CT_ITS ---
WS: [id number] CT ANGIOGRAPHY OF THE ABDOMINAL AORTA WITH RUNOFF TO THE ANKLES HISTORY: PAIN REDNESS, NON HEALING ULCER TECHNIQUE: Arterial injection is performed during imaging to evaluate the aorta and runoff vessels to the ankles. MIP and volume rendering imaging has also been performed. All images are reviewed. All C T scans at [facility] use at least one of these dose optimization techniques: automated ex posure control; mA and/or kV adjustment per patient size (includes targeted exams where dose is match ed to clinical indication); or iterative reconstruction. Contrast: Visipaque 320; 95 mL IV. DLP: 1541.94 mGycm COMPARISON: None available. Abdominal aorta: Moderate amount of calcified plaque and intimal thickening throughout the abdominal aorta. No aneurysm. Mild narrowing of the lumen with a minimal diameter of 11 mm. Mild atheroscleroti c plaque at the origins of the celiac axis and SMA. Inferior mesenteric artery is still patent. Bilat eral renal arteries are patent although small caliber with mild to moderate atherosclerotic disease. RIGHT lower extremity arterial system: Moderate to severe atherosclerotic plaque through the common, internal and external iliac arteries. 67% stenosis in the distal common iliac artery. 50% stenosis pr oximal internal iliac artery. Moderate stenosis near 50% in the common femoral artery. Complete occlu jodie involving the proximal SFA with small adjacent collateral vessels. Deep profunda patent with mil d atherosclerotic plaque. SFA is occluded to Neri's canal. There is reconstitution through collater als but there is still a significant amount of calcified plaque with stenosis in the popliteal artery . Intermittently visualized but heavily calcified arteries below the knee. Very poor runoff via all 3 vessels to the ankle. LEFT lower extremity arterial system: 50% stenosis at the origin of the LEFT common iliac artery. The re is heavy calcified plaque and intimal thickening. Plaque extends into the internal and external il iac arteries. Moderate plaque in the common femoral artery. Superficial femoral artery and the deep p rofunda are patent with moderate plaque. High-grade stenosis involving the proximal LEFT SFA. There i s additional multi focal areas of stenosis in the mid SFA. At Neri's canal there a very high-grade stenosis over a very short segment. Stenosis at 87 percent. High-grade stenosis through the poplitea l artery, stenosis greater than 90 %. Moderate calcifications scattered throughout the arteries below the knee. Poor runoff to the ankle. Majority of the runoff appears to be via the posterior tibial ar aquiles. Lung bases are clear. No cardiomegaly. Small hiatal hernia. Prior cholecystectomy. No bile duct dilat ation. Mild pancreatic atrophy. Negative spleen. Negative adrenal glands. Bilateral renal atrophy. Fo connie area of cortical thinning and moderate atrophy of the LEFT kidney. Mild ischemic changes or prior infarct involving the lower pole LEFT kidney. Diffuse mild constipation. No adenopathy or ascites. CT/CT angio abd aorta runof [id number] IMPRESSION: 1. Complete occlusion origin RIGHT SFA with reconstitution near Neri's canal . 2. Continued multifocal areas of stenosis in the RIGHT popliteal artery with p oor runoff to the ankle via all 3 arteries. 3. Multifocal areas of significant stenosis in the LEFT SFA and popliteal emily ry. 4. High-grade distal LEFT SFA stenosis, 87%. 5. High-grade stenosis, greater than 90% LEFT popliteal artery.
[2020-09-13] MEDS: iodixanol 320 mg/mL 100mL Btl IV (08:50)
== END 2020-09-13 08:10 | disposition home or self-care (01) ==
LOC: RADWPI 08:13
PROVIDERS: PCP Physician Assistant; Visit Provider Thoracic Surgery (Cardiothoracic Vascular Surgery)
DX: R52 Pain, unspecified (principal); L53.9 Erythematous condition, unspecified; L98.499 Non-pressure chronic ulcer of skin of other sites with unspecified severity; I70.8 Atherosclerosis of other arteries
CPT/HCPCS: 75635; Q9967

== ENCOUNTER 2020-09-14 13:12 | Outpatient (CLI) | payer MEDICARE, SELFPAY | END 2020-09-14 13:13 | disposition home or self-care (01) | LOC: WOUND 13:13 | PROVIDERS: PCP Physician Assistant; Visit Provider Nurse Practitioner Family | DX: E11.621 Type 2 diabetes mellitus with foot ulcer (principal); L97.512 Non-pressure chronic ulcer of other part of right foot with fat layer exposed; Z89.421 Acquired absence of other right toe(s) | CPT/HCPCS: 11042 ==

== ENCOUNTER 2020-09-21 13:04 | Outpatient (CLI) | payer MEDICARE, SELFPAY | END 2020-09-21 13:05 | disposition home or self-care (01) | LOC: WOUND 13:05 | PROVIDERS: PCP Physician Assistant; Visit Provider Nurse Practitioner Family | DX: E11.621 Type 2 diabetes mellitus with foot ulcer (principal); L97.512 Non-pressure chronic ulcer of other part of right foot with fat layer exposed; Z89.421 Acquired absence of other right toe(s) | CPT/HCPCS: 11042 ==

== ENCOUNTER 2020-09-28 12:58 | Outpatient (CLI) | payer MEDICARE, SELFPAY | END 2020-09-28 12:59 | disposition home or self-care (01) | LOC: WOUND 12:59 | PROVIDERS: PCP Physician Assistant; Visit Provider Thoracic Surgery (Cardiothoracic Vascular Surgery) | DX: E11.621 Type 2 diabetes mellitus with foot ulcer (principal); L97.512 Non-pressure chronic ulcer of other part of right foot with fat layer exposed; Z89.421 Acquired absence of other right toe(s) | CPT/HCPCS: 11042; 87070; 87176; 87205 ==

== ENCOUNTER 2020-09-29 08:26 | Outpatient (CLI) | payer MEDICARE, SELFPAY ==
--- NOTE | 2020-09-29 08:35 | MR_ITS ---
WS: [id number] MRI RIGHT FOOT WITHOUT AND WITH GADOLINIUM ENHANCEMENT TECHNIQUE: Sagittal proton density, sagittal STIR, axial proton density, axial T1, axial T2 fat sat, coronal proton density, coronal proton density fat sat, coronal T2 fat sat. Post gadolinium imaging w as obtained. CLINICAL INFORMATION: PAIN,REDNESS,NONHEALING ULCER COMPARISON: Radiograph September 07, 2020 FINDINGS: Prior postoperative changes amputation at the base first distal phalanx. Associated soft tissue stump . Diffuse soft tissue edema involving the midfoot and forefoot soft tissues. Small plantar ulceration along the first phalanx distally with a small amount of edema and soft tissue enhancement. Tiny amou nt of edema and enhancement involving the distal cortical surface first distal phalanx at the area of amputation. Small amount of bony irregularity in this area with enhancement. Findings suspicious for osteomyelitis involving the distal one third of the remaining first phalanx. First metatarsal is normal in appearance. Normal first MTP. No drainable abscess or fluid collection. Diffuse edema in the plantar subcutaneous soft tissues. Plantar calcaneal spurring. Tiny Achilles en thesophyte. MR/MR foot RT wo/w con [id number] IMPRESSION: 1. Suspected osteomyelitis involving the distal one third remaining first phal anx at the area of amputation. Associated edema and enhancement involving the c ortical surface. 2. First MTP is normal in appearance. 3. Small soft tissue ulceration involving the plantar surface first distal pha lanx. 4. Diffuse soft tissue edema and enhancement consistent with cellulitis involv ing the midfoot and forefoot.
[2020-09-29] MEDS: gadobenate dimeglumine 20 mL vial IV (13:41)
== END 2020-09-29 08:27 | disposition home or self-care (01) ==
LOC: RADSHAW 08:32
PROVIDERS: PCP Physician Assistant; Visit Provider Thoracic Surgery (Cardiothoracic Vascular Surgery)
DX: M79.671 Pain in right foot (principal); L53.9 Erythematous condition, unspecified; R60.0 Localized edema; L97.519 Non-pressure chronic ulcer of other part of right foot with unspecified severity
CPT/HCPCS: 73720; A9577

== ENCOUNTER 2020-10-05 13:11 | Outpatient (CLI) | payer MEDICARE, SELFPAY | END 2020-10-05 13:12 | disposition home or self-care (01) | LOC: WOUND 13:12 | PROVIDERS: PCP Physician Assistant; Visit Provider Thoracic Surgery (Cardiothoracic Vascular Surgery) | DX: E11.621 Type 2 diabetes mellitus with foot ulcer (principal); L97.513 Non-pressure chronic ulcer of other part of right foot with necrosis of muscle; Z89.421 Acquired absence of other right toe(s) | CPT/HCPCS: 11042; 87070; 87176; 87205; L4387 ==

== ENCOUNTER → 2020-10-09 09:05 | Day surgery (SDC) | payer MEDICARE, SELFPAY ==
--- NOTE | 2020-10-09 09:43 | XR_ITS ---
WS: [id number] CHEST XRAY TECHNIQUE: Portable chest. CLINICAL INFORMATION: PICC PLACEMENT COMPARISON: None. FINDINGS: Left PICC line with tip in the mid to distal SVC. No pneumothorax. Heart: Cardiomegaly Lungs: Lungs are clear. No consolidation or pleural effusion. Bones: Normal visualized bony structures. XR/XR chest 1V portable [id number] IMPRESSION: Left PICC line in good position.
[2020-10-09 11:00] VITALS: BP 188/88; PULSE 84; RESP 18; TEMP 36.8; O2SAT 100
[2020-10-09 11:39] LABS: Blood Urea Nitrogen 27 mg/dL (8-23); Calcium 8.4 mg/dL (8.5-10.5); Carbon Dioxide 27 mmol/L (22-29); Chloride 101 mmol/L (98-107); Creatinine Clr Calc Pharmacy 68.6453; Glomerular Filtration Rate 60.2 mL/min (90-130); Glucose 330 mg/dL (65-115); Osmolality Calculated 300 mOsm/kg (285-295); Sodium 136 mmol/L (136-145)
[2020-10-09] MEDS: vancomycin 1,250 MG/250 ML PIGGYBACK 250 MG IV (12:03)
--- NOTE | 2020-10-09 12:32 | XRR_ITS ---
PROCEDURE INFORMATION: Exam: XR Chest Exam date and time: 10/09/2020 1:29 PM Age: 70 years old Clinical indication: Condition or disease; Lung condition and disease; Respiratory distress; Additional info: Encounter for screening for resp disorders TECHNIQUE: Imaging protocol: XR of the chest Views: 2 views. COMPARISON: No relevant prior studies available. FINDINGS: Tubes, catheters and devices: There is a left PICC catheter whose tip is at the cavoatrial junction. Lungs: Unremarkable. No consolidation. Pleural spaces: Unremarkable. No pleural effusion. No pneumothorax. Heart/Mediastinum: Unremarkable. No cardiomegaly. Bones/joints: Degenerative change is identified in the spine. There is no evidence for acute fracture or malalignment. XR/XR chest 2V* [id number] IMPRESSION: There are no acute concerning abnormalities.
--- NOTE | 2020-10-09 12:32 | ECG_ITS ---
[facility] Test Date: 2020-10-09 Pat Name: Usman Alvarez Department: Room: Gender: Male Increment Manager: : 1950 Requested By: Pantera Moraes Order Number: [id number] Diandra MD: HERLINDA LINTON Measurements Intervals [place] Rate: 75 P: 57 CT: 161 QRS: 32 QRSD: 93 T: 134 QT: 367 QTc: 410 Interpretive Statements SINUS RHYTHM NONSPECIFIC T-WAVE ABNORMALITY Compared to ECG 06/12/2020 15:58:12 No significant changes Electronically Signed On 10-09-2020 18:30:10 TUBE FITTER by HERLINDA LINTON [id number]
[2020-10-09 13:47] LABS: Basophils # 0.1 10^3/uL (0.0-0.1); Basophils % 0.9 %; Eosinophils # 0.2 10^3/uL (0.0-0.8); Eosinophils % 1.6 %; Hematocrit 38.6 % (42.0-52.0); Hemoglobin 12.7 g/dL (11.7-16.6); Lymphocytes # 3.4 10^3/uL (0.8-4.8); Lymphocytes % 32.9 %; Mean Corpuscular HGB Conc 32.9 g/dL (30.0-36.0); Mean Corpuscular Hemoglobin 30.5 pg (28.0-34.0); Mean Corpuscular Volume 92.6 fL (80-94); Mean Platelet Volume 9.8 fL (7.4-10.4); Monocytes # 0.6 10^3/uL (0.2-0.9); Monocytes % 5.8 %; Neutrophils % 58.5 %; Nucleated Red Blood Cells % 0 %; Platelet Count 249 10^3/cmm (130-400); Red Blood Count 4.17 10^6/uL (4.1-5.3); Red Cell Distribution Width 12.4 % (12.1-15.1); White Blood Count 10.4 10^3/uL (4.0-10.0)
[2020-10-09 13:48] LABS: C Reactive Protein 3.5 mg/L (0.0-4.9); Prealbumin 20.6 mg/dL (20-40)
[2020-10-09 14:19] LABS: Estmated Average Glucose 212
[2020-10-09 14:40] LABS: Erythrocyte Sedimentation Rate 22 mm/hr (0-10)
== END ==
PROVIDERS: PCP Physician Assistant; Visit Provider Thoracic Surgery (Cardiothoracic Vascular Surgery)
DX: M86.171 Other acute osteomyelitis, right ankle and foot (principal)
CPT/HCPCS: 36569; 36592; 71045; 71046; 80048; 83036; 84134; 85025; 85651; 86140; 93005; 96365; J3370

== ENCOUNTER 2020-10-12 12:02 | Outpatient (CLI) | payer MEDICARE, SELFPAY ==
[2020-10-12 12:23] LABS: Hematocrit 39.4 % (42.0-52.0); Hemoglobin 13.2 g/dL (11.7-16.6); Mean Corpuscular HGB Conc 33.5 g/dL (30.0-36.0); Mean Corpuscular Hemoglobin 30.6 pg (28.0-34.0); Mean Corpuscular Volume 91.2 fL (80-94); Mean Platelet Volume 9.9 fL (7.4-10.4); Platelet Count 285 10^3/cmm (130-400); Red Blood Count 4.32 10^6/uL (4.1-5.3); Red Cell Distribution Width 12.3 % (12.1-15.1); White Blood Count 9.2 10^3/uL (4.0-10.0)
[2020-10-12 12:42] LABS: Anion Gap 11.6 (5-19); Blood Urea Nitrogen 25 mg/dL (8-23); Calcium 8.8 mg/dL (8.5-10.5); Carbon Dioxide 28 mmol/L (22-29); Chloride 103 mmol/L (98-107); Glomerular Filtration Rate 60.2 mL/min (90-130); Glucose 207 mg/dL (65-115); Osmolality Calculated 296 mOsm/kg (285-295); Potassium 4.6 mmol/L (3.5-5.1); Sodium 138 mmol/L (136-145)
[2020-10-12 12:48] LABS: Vancomycin Trough 10.3 ug/mL (10-15)
[2020-10-12 12:52] LABS: Eosinophils 1 %; Lymphocytes 50 %; Monocytes Absolute 0.5 10^3/cmm (0.1-0.6); Platelet Estimate Normal (Normal); Segmented Neutrophils 44 %; Total Cells Counted 100 (0-100)
== END 2020-10-12 12:03 | disposition home or self-care (01) ==
LOC: LAB 12:03
PROVIDERS: PCP Physician Assistant; Visit Provider Thoracic Surgery (Cardiothoracic Vascular Surgery)
DX: M86.9 Osteomyelitis, unspecified (principal)
CPT/HCPCS: 80048; 80202; 85007; 85027

== ENCOUNTER 2020-10-12 14:41 | Outpatient (CLI) | payer MEDICARE, SELFPAY | END 2020-10-12 14:42 | disposition home or self-care (01) | LOC: WOUND 14:42 | PROVIDERS: PCP Physician Assistant; Visit Provider Thoracic Surgery (Cardiothoracic Vascular Surgery) | DX: E11.621 Type 2 diabetes mellitus with foot ulcer (principal); L97.512 Non-pressure chronic ulcer of other part of right foot with fat layer exposed; Z89.421 Acquired absence of other right toe(s) | CPT/HCPCS: 11042 ==

== ENCOUNTER 2020-10-16 12:46 | Outpatient (CLI) | payer MEDICARE, SELFPAY ==
[2020-10-16 13:27] LABS: Anion Gap 13.2 (5-19); Blood Urea Nitrogen 26 mg/dL (8-23); Calcium 8.5 mg/dL (8.5-10.5); Carbon Dioxide 27 mmol/L (22-29); Chloride 102 mmol/L (98-107); Glomerular Filtration Rate 66.6 mL/min (90-130); Glucose 187 mg/dL (65-115); Osmolality Calculated 296 mOsm/kg (285-295); Potassium 4.2 mmol/L (3.5-5.1); Sodium 138 mmol/L (136-145)
[2020-10-16 13:35] LABS: Vancomycin Trough 16.8 ug/mL (10-15)
[2020-10-16 13:43] LABS: Hematocrit 41.1 % (42.0-52.0); Hemoglobin 13.6 g/dL (11.7-16.6); Mean Corpuscular HGB Conc 33.1 g/dL (30.0-36.0); Mean Corpuscular Hemoglobin 30.4 pg (28.0-34.0); Mean Corpuscular Volume 91.7 fL (80-94); Mean Platelet Volume 9.9 fL (7.4-10.4); Platelet Count 290 10^3/cmm (130-400); Red Blood Count 4.48 10^6/uL (4.1-5.3); Red Cell Distribution Width 12.3 % (12.1-15.1); White Blood Count 10.5 10^3/uL (4.0-10.0)
[2020-10-16 14:24] LABS: Absolute Eosinophils 0.1 10^3/cmm (0.0-0.7); Absolute Neutrophil 5.7 10^3/cmm (1.4-6.5); Absolute Segmented Neutrophil 5.3 10/cmm (1.6-7.1); Band Neutrophils Absolute 0.4 10^3/cmm (0.0-1.2); Eosinophils 1 %; Lymphocytes 39 %; Monocytes Absolute 0.6 10^3/cmm (0.1-0.6); Platelet Estimate Normal (Normal); Segmented Neutrophils 50 %; Total Cells Counted 100 (0-100)
== END 2020-10-16 12:47 | disposition home or self-care (01) ==
LOC: LAB 12:47
PROVIDERS: PCP Physician Assistant; Visit Provider Thoracic Surgery (Cardiothoracic Vascular Surgery)
DX: M86.171 Other acute osteomyelitis, right ankle and foot (principal)
CPT/HCPCS: 80048; 80202; 85007; 85027

== ENCOUNTER 2020-10-19 13:45 | Outpatient (CLI) | payer MEDICARE, SELFPAY | END 2020-10-19 13:46 | disposition home or self-care (01) | LOC: WOUND 13:45 | PROVIDERS: PCP Physician Assistant; Visit Provider Thoracic Surgery (Cardiothoracic Vascular Surgery) | DX: E11.621 Type 2 diabetes mellitus with foot ulcer (principal); L97.512 Non-pressure chronic ulcer of other part of right foot with fat layer exposed; Z89.421 Acquired absence of other right toe(s) | CPT/HCPCS: 11042; 11044 ==

== ENCOUNTER 2020-10-23 14:26 | Outpatient (CLI) | payer MEDICARE, SELFPAY ==
[2020-10-23 15:09] LABS: Basophils # 0.1 10^3/uL (0.0-0.1); Basophils % 0.5 %; Eosinophils # 0.3 10^3/uL (0.0-0.8); Eosinophils % 2.8 %; Hematocrit 40.3 % (42.0-52.0); Hemoglobin 13.2 g/dL (11.7-16.6); Lymphocytes # 3.4 10^3/uL (0.8-4.8); Lymphocytes % 34.5 %; Mean Corpuscular HGB Conc 32.8 g/dL (30.0-36.0); Mean Corpuscular Hemoglobin 30.7 pg (28.0-34.0); Mean Corpuscular Volume 93.7 fL (80-94); Mean Platelet Volume 9.6 fL (7.4-10.4); Monocytes # 0.5 10^3/uL (0.2-0.9); Monocytes % 5.4 %; Neutrophils % 56.5 %; Nucleated Red Blood Cells % 0 %; Platelet Count 292 10^3/cmm (130-400); Red Cell Distribution Width 12.6 % (12.1-15.1); White Blood Count 9.7 10^3/uL (4.0-10.0)
[2020-10-23 15:27] LABS: Anion Gap 17.9 (5-19); Blood Urea Nitrogen 29 mg/dL (8-23); Calcium 8.8 mg/dL (8.5-10.5); Carbon Dioxide 24 mmol/L (22-29); Chloride 101 mmol/L (98-107); Glomerular Filtration Rate 66.6 mL/min (90-130); Glucose 313 mg/dL (65-115); Osmolality Calculated 304 mOsm/kg (285-295); Potassium 4.9 mmol/L (3.5-5.1); Sodium 138 mmol/L (136-145)
[2020-10-23 15:28] LABS: Vancomycin Trough 20.5 ug/mL (10-15)
== END 2020-10-23 14:27 | disposition home or self-care (01) ==
LOC: LAB 14:30
PROVIDERS: PCP Physician Assistant; Visit Provider Nurse Practitioner Family
DX: M86.171 Other acute osteomyelitis, right ankle and foot (principal)
CPT/HCPCS: 36415; 80048; 80202; 85025

== ENCOUNTER 2020-10-26 14:41 | Outpatient (CLI) | payer MEDICARE, SELFPAY | END 2020-10-26 14:42 | disposition home or self-care (01) | LOC: WOUND 14:43 | PROVIDERS: PCP Physician Assistant; Visit Provider Nurse Practitioner Family | DX: E11.621 Type 2 diabetes mellitus with foot ulcer (principal); L97.512 Non-pressure chronic ulcer of other part of right foot with fat layer exposed; L97.516 Non-pressure chronic ulcer of other part of right foot with bone involvement without evidence of necrosis; Z89.411 Acquired absence of right great toe | CPT/HCPCS: G0463 ==

== ENCOUNTER 2020-10-30 14:27 | Outpatient (CLI) | payer MEDICARE, SELFPAY ==
[2020-10-30 15:20] LABS: Blood Urea Nitrogen 24 mg/dL (8-23); Glomerular Filtration Rate 66.6 mL/min (90-130)
[2020-10-30 15:44] LABS: Vancomycin Trough 19.8 ug/mL (10-15)
== END 2020-10-30 14:28 | disposition home or self-care (01) ==
LOC: LAB 14:31
PROVIDERS: PCP Physician Assistant; Visit Provider Nurse Practitioner Family
DX: M86.171 Other acute osteomyelitis, right ankle and foot (principal)
CPT/HCPCS: 36415; 80202; 82565; 84520

== ENCOUNTER 2020-11-02 11:42 | Outpatient (CLI) | payer MEDICARE, SELFPAY ==
[2020-11-02 12:36] LABS: Vancomycin Trough 22.3 ug/mL (10-15)
[2020-11-02 12:46] LABS: Blood Urea Nitrogen 24 mg/dL (8-23); Calcium 8.2 mg/dL (8.5-10.5); Carbon Dioxide 26 mmol/L (22-29); Chloride 102 mmol/L (98-107); Glomerular Filtration Rate 60.2 mL/min (90-130); Glucose 110 mg/dL (65-115); Osmolality Calculated 291 mOsm/kg (285-295); Sodium 138 mmol/L (136-145)
== END 2020-11-02 11:43 | disposition home or self-care (01) ==
LOC: LAB 11:45
PROVIDERS: PCP Physician Assistant; Visit Provider Thoracic Surgery (Cardiothoracic Vascular Surgery)
DX: M86.171 Other acute osteomyelitis, right ankle and foot (principal)
CPT/HCPCS: 80048; 80202

== ENCOUNTER 2020-11-02 14:14 | Outpatient (CLI) | payer MEDICARE, SELFPAY | END 2020-11-02 14:15 | disposition home or self-care (01) | LOC: WOUND 14:15 | PROVIDERS: PCP Physician Assistant; Visit Provider Thoracic Surgery (Cardiothoracic Vascular Surgery) | DX: E11.621 Type 2 diabetes mellitus with foot ulcer (principal); L97.512 Non-pressure chronic ulcer of other part of right foot with fat layer exposed; L97.513 Non-pressure chronic ulcer of other part of right foot with necrosis of muscle; I96 Gangrene, not elsewhere classified | CPT/HCPCS: 11042; 11043 ==

== ENCOUNTER → 2020-11-03 11:36 | Outpatient (BNVA) | payer MEDICARE, SELFPAY | PROVIDERS: PCP Physician Assistant; Visit Provider Internal Medicine Cardiovascular Disease | DX: Z20.822 Contact with and (suspected) exposure to COVID-19 (principal) | CPT/HCPCS: 87635 ==

== ENCOUNTER 2020-11-06 12:27 | Outpatient (CLI) | payer MEDICARE, SELFPAY ==
[2020-11-06 12:55] LABS: Hematocrit 34.7 % (42.0-52.0); Hemoglobin 11.7 g/dL (11.7-16.6); Mean Corpuscular HGB Conc 33.7 g/dL (30.0-36.0); Mean Corpuscular Hemoglobin 30.9 pg (28.0-34.0); Mean Corpuscular Volume 91.6 fL (80-94); Mean Platelet Volume 9.7 fL (7.4-10.4); Platelet Count 291 10^3/cmm (130-400); Red Blood Count 3.79 10^6/uL (4.1-5.3); Red Cell Distribution Width 12.5 % (12.1-15.1); White Blood Count 7.2 10^3/uL (4.0-10.0)
[2020-11-06 13:09] LABS: Anion Gap 11.3 (5-19); Blood Urea Nitrogen 31 mg/dL (8-23); Calcium 8.5 mg/dL (8.5-10.5); Carbon Dioxide 22 mmol/L (22-29); Chloride 109 mmol/L (98-107); Glomerular Filtration Rate 60.2 mL/min (90-130); Glucose 370 mg/dL (65-115); Osmolality Calculated 308 mOsm/kg (285-295); Potassium 4.3 mmol/L (3.5-5.1); Sodium 138 mmol/L (136-145)
[2020-11-06 13:30] LABS: Lymphocytes 44 %; Monocytes Absolute 0.1 10^3/cmm (0.1-0.6); Segmented Neutrophils 55 %; Total Cells Counted 100 (0-100)
[2020-11-06 13:31] LABS: Eosinophils 0 %; Lymphocytes Absolute 3.2 10^3/cmm (1.2-3.4); Platelet Estimate Normal (Normal); Smudge Cells 1+
== END 2020-11-06 12:28 | disposition home or self-care (01) ==
LOC: LAB 12:31
PROVIDERS: PCP Physician Assistant; Visit Provider Thoracic Surgery (Cardiothoracic Vascular Surgery)
DX: M86.171 Other acute osteomyelitis, right ankle and foot (principal)
CPT/HCPCS: 80048; 80202; 85007; 85027

== ENCOUNTER 2020-11-09 07:27 | Day surgery (SDC) | payer MEDICARE, SELFPAY ==
[2020-11-09] VITALS (37 sets, daily range): BP systolic 129–187; BP diastolic 68–114; PULSE 76–95; RESP 0–22; TEMP 36.2–36.8; O2SAT 96–100; BMI 29.0
--- NOTE | 2020-11-09 07:30 | XACV_ITS ---
Exam Room: [facility] Ht: 180 cm Wt: 94 kg BSA: 2.19 m2 Gender: Male : 1950 Any Known Allergies: Penicillins Exam Priority: Routine Procedure(s): Procedure Description: Diagnostic procedure Procedure Description: PCI procedure Procedure Description: Drug Eluting Coronary Stent Procedure Description: Miscellaneous Procedure Description: ACT Procedure Description: Coronary Angiography Procedure Description: Pressure Wire Christin Esquivel MD; Diagnostic Cath Status: Elective Diagnostic Findings * LM has 0% stenosis. * CX has 0% stenosis. * Mid Left Anterior Descending Coronary Artery: Severe 75% stenosis, BAN: 3 flow. * Mid Right Coronary Artery: Moderate 60% stenosis, BAN: 3 flow. * Coronary angiography shows right dominance. Interventional Findings * Mid Left Anterior Descending Coronary Artery: 75% stenosis treated with MONICA R MAXIMO 2.5X26 JETT. 0% residual stenosis, BAN: 3 flow. Conclusions 1. LADIFR: After equalizing the distal and proximal pressure of IFR wire proximal to the lesion, mid LAD lesion was crossed with IFR wire. IFR was noted to be significant at 0.72.RCAFFR: After equalizing the distal and proximal pressure of FFR wire proximal to the lesion, mid RCA lesion was crossed with FFR wire. IV adenosine at rate of 140 mcg/min was started. Patient did not compliant of any symptoms, at then end of two minutes FFR was recorded as 0.85, which is not significant . 2. There is severe coronary artery disease with two vessel disease. 3. Mid Left Anterior Descending Coronary Artery was treated with Drug Eluting Stent. 4. Indication 5. for left heart cath/PCI: LV dysfunction, CHF, unexplained shortness of breath. Recommendations * 1-Return to inpatient for close monitoring and routine cath care 2-Risk factor modification for secondary prevention 3-Statin and aspirin 81 mg life--long, if tolerated 4-continue Plavix 75mg p.o. daily for at least one year. We will assess at the end of one year again to continue if further or not 5-Continue optimal medical management 6-Follow up with Cardiology in four weeks and primary care in 10 days. Diagnostic RX Recommendation: PCI w/o planned CABG Pressures Phase:Rest AO : 152 / 92 ( 122 ) @ 4:44:00 AM 159 / 70 ( 108 ) @ 4:58:00 AM 152 / 59 ( 99 ) @ 5:21:00 AM 159 / 62 ( 101 ) @ 5:26:00 AM 115 / 67 ( 89 ) @ 5:39:00 AM Clinical Evaluation EBL: 5mL-10mL Procedural Details Procedure Consent Obtained. Pre-Procedure Time Out. Identified patient by full name and date of as verbalized by the patient/guarantor. Does the consent match the physician's order: Yes. Accurate & Complete Informed Consent: Yes. Inpatient/Outpatient History & Physical on Chart: Yes. If H&P is completed, is and addenduem needed: No; If yes, is the addendum complete: N/A. Visualize and Verify Site with Patient/Guarantor: N/A. Relevant Radiology Images available: N/A. Pre-op teaching completed and patient verbalized understanding. The risks, benefits, and alternatives of sedation and/or procedure were discussed by physician. The patient agrees to continue. Procedure started. [facility] Clinical Fraility Score: 4: Vulnerable. Lumber Checker Indications: LV dysfunction Other--abnormal stress test. Chest Pain Symptom Assessment: Atypical Angina. Cardiovascular Instability: No. Correct patient, site and procedure confirmed by cath team. PERRLA. Strong, equal hand condenser winder bilaterally. Lungs clear x 5 lobes. Pt has PICC line to left upper arm. IV Fluids: 0.9% NaCl at KVO. 0 mL infused prior to grinding and polishing laborer. Pre Procedural Pulses: bilateral dorsalis pedis was 1+. Pre Procedural Pulses: bilateral posterior tibial was Doppled. Pre Procedural Pulses: bilateral radial was 3+. Oxygen started at 2liters/min via nasal canula. Physician arrived. Equipment: 6F - Radial. Cardiac Cath Pack. ACIST Manifold Kit Model BT 2000. Heparinized Saline (2 units/mL), 1000 mL bag. Baseline sample Acquired. HR: 96 BPM. bilateral groins was prepped with chloroprep then draped in the usual sterile fashion. right radial was prepped with chloroprep then draped in the usual sterile fashion. Physician scrubbed in. Immediate Pre-Procedure Time Out. Correct Patient: Yes; Correct Procedure: Yes; Correct Site: Yes; Correct Patient Position: Yes; Correct Supplies: Yes; Dried Flammable Prep: Yes; Blood Products Available: N/A;. Lidocaine 1% infiltrated to the right radial. Arterial access obtained. Inventory is TR Glidewire Angled Stiff Shaft .035 260cm. Exchange wire out. Glidewire inserted. Glidewire out. A 5 [place] citizen TIG catheter in over wire. Multiple views taken of left coronary artery. Catheter redirected to the RCA. A 5 [place] citizen 3DRC catheter in over wire. Catheter removed over the exchange wire. Multiple views taken of right coronary artery. Catheter removed over the exchange wire. Inventory is CRD 6 FR XB 3.5 GUIDE. 6 [place] citizen XB 3.5 guide catheter was inserted over the wire. FFR guidewire was advanced through the guide catheter to lesion in the mid LAD. Wire out. Guide catheter out. Inventory is CRD 6FR JL 4 GUIDE. 6 [place] citizen JL 4 guide catheter was inserted over the wire. Family updated. FFR guidewire was advanced through the guide catheter to lesion in the mid LAD. IFR 0.72. Pulled wire back to prox lesion of mid LAD. 0.96. Winona guidewire was advanced through the guide catheter to lesion in the mid LAD. Inventory is Apsalar Winona XT .014 190cm Str. Guidewire. FFR Wire out. Inflation Number : 1 Amanda Gaines MAXIMO 2.5X26 JETT -Lot Number# [id number] exp date 06/26/2022 was prepped and advanced across the Mid LAD. The stent was deployed at 12 BETTY for 0:42 seconds. Stent balloon out over wire. Results checked. Wire out. Guide catheter out. Inventory is CRD 6FR AL .75 GUIDE. 6 [place] citizen AL 0.75 guide catheter was inserted over the wire. Winona guidewire was advanced through the guide catheter to lesion in the mid RCA. Unable to cross lesion, guidewire removed. Guide catheter out. Inventory is CRD 6FR 3 DRC GUIDE. 6 [place] citizen 3DRC guide catheter was inserted over the wire. Family updated. FFR guidewire was advanced through the guide catheter to lesion in the mid RCA. An FFR value of 0.85 was obtained for a lesion located at Mid RCA. Wire out. Results checked. Guide catheter out. Physician scrubbed out. Fractional flow reserve measurements obtained. Physician scrubbed out. ACT drawn. Results 230 seconds. Therapeutic limits - pre-heparin administration 90-150 seconds and monitoring heparin during a vascular procedure >250 seconds. A TR Band was successful obtaining hemostatsis at the Right Radial artery insertion site. TR band placed. Hemostasis obtained. Post Procedure: Pulses reassessed and unchanged. PERRLA. Strong, equal hand condenser winder bilaterally. No VTE prophylaxis required. Medication's Wasted: Lidocaine 1% = 16 mL. Medication's Wasted: Nitro = 49.6 mg. Medication's Wasted: Other = adenosine 63 mg. Total IV fluids: 100 mL. Contrast type used: Visipaque 320 mgI/mL, 500 mL bottle. PCI Indication: CAD (without ischemic symptoms). Post-op diagnosis: obstructive CAD, post Mid LAD PCI. Complications: none. Estimated blood loss: 5mL-10mL. Procedure completed. Patient transferred by bed to 1st floor. Vital chart was stopped. Access Site Site: Right Radial artery Sheath Size: 6 Fr Hemostasis Method: TR Band Hemostasis Success: Successful Procedure Medications Start: 9:26 AM Stop: 9:26 AM Medication: Versed Amount: 1 mg Route: I.V. Start: 9:28 AM Stop: 9:28 AM Medication: Fentanyl Amount: 25 mcg Route: I.V. Start: 9:35 AM Stop: 9:35 AM Medication: Versed Amount: 1 mg Route: I.V. Start: 9:39 AM Stop: 9:39 AM Medication: Nitrogylcerin Amount: 200 mcg Route: I.A. Start: 9:42 AM Stop: 9:42 AM Medication: Heparin Amount: 5000 units Route: I.V. Start: 9:42 AM Stop: 9:42 AM Medication: Fentanyl Amount: 25 mcg Route: I.V. Start: 9:45 AM Stop: 9:45 AM Medication: Versed Amount: 1 mg Route: I.V. Start: 9:56 AM Stop: 9:56 AM Medication: Versed Amount: 1 mg Route: I.V. Start: 10:13 AM Stop: 10:13 AM Medication: Fentanyl Amount: 50 mcg Route: I.V. Start: 10:18 AM Stop: 10:18 AM Medication: Versed Amount: 1 mg Route: I.V. Start: 10:21 AM Stop: 10:21 AM Medication: Heparin Amount: 4000 units Route: I.V. Start: 10:25 AM Stop: 10:25 AM Medication: Nitrogylcerin Amount: 200 mcg Route: I.C. Start: 10:31 AM Stop: 10:31 AM Medication: Versed Amount: 1 mg Route: I.V. Start: 10:41 AM Stop: 10:41 AM Medication: Versed Amount: 1 mg Route: I.V. Start: 10:53 AM Stop: 10:53 AM Medication: Heparin Amount: 2000 units Route: I.V. I, the attending physician, have reviewed and verified all procedure medications. Yes, all medications given per verbal order History/Risk Factors Hypertension: Yes Dyslipidemia: Yes Peripheral Arterial Disease (PAD): No Myocardial Infarction (HI): No Obesity: No Renal Disease: No Tobacco Use: Never Prior Interventions PCI: No CABG: No Valve Surgery: No Report Signatures Finalized by Arnulfo Olvera MD on 11/22/2020 12:06 AM
[2020-11-09] MEDS: diphenhydrAMINE 50 mg Capsule PO (07:40)
--- NOTE | 2020-11-09 09:04 | P.HP_ITS ---
Same Day Surgery H&P Indication for Procedure/HPI DATE OF PROCEDURE: November 09, 2020 CHIEF COMPLAINT/INDICATIONFOR SURGICAL PROCEDURE: Worsening of heart failure, abnormal stress test in the patient with severe peripheral vascular disease PREOP DIAGNOSIS: Abnormal stress test, LV dysfunction, worsening of heart failure, PLANNED PROCEDRUE: Operation Date: 11/09/20 08:30 Proposed Procedures p left Cardiac Catheterization 40217 r94.39(Left) - Arnulfo Olvera MD 70-year-old male past medical history significant for worsening of heart failure chest pain abnormal stress test has been referred to us by Dr. Esquivel for left heart cath. Patient has been explained all risk benefit and not later for the procedure. Patient has been explained the risk for major minor bleed, CVA, arrhythmia, urgent emergent surgery and in worse case scenario. He would like to proceed with it. Patient is a good candidate for DAPT. Medications/Allergies* Home Medications Medication Instructions Recorded Confirmed Type garlic 1,000 mg capsule 1,000 mg PO DAILY 08/31/19 11/09/20 History turmeric root extract 500 mg 500 mg PO QDAY 08/31/19 11/09/20 History capsule vitamin B complex 1 tab PO QDAY 08/31/19 11/09/20 History Multi For Him 1 tab PO DAILY 06/12/20 11/09/20 History alpha lipoic acid 1 tab PO DAILY 06/12/20 11/09/20 History resveratrol 1 tab PO DAILY 06/12/20 11/09/20 History amitriptyline 25 mg tablet 25 mg PO DAILY 08/08/20 11/09/20 History levothyroxine 100 mcg tablet 100 mcg PO DAILY tab 08/08/20 11/09/20 History losartan 50 mg tablet 50 mg PO DAILY 08/08/20 11/09/20 History nitroglycerin 0.4 mg sublingual 0.4 mg SUBLINGUAL PRN 08/08/20 11/09/20 History tablet insulin detemir U-100 100 unit/mL 30 unit SUBCUT QAM ml 08/22/20 11/09/20 History subcutaneous solution Allergies/Adverse Reactions Allergy/AdvReac Type Severity Reaction Status Date / Time Penicillins Allergy Severe Throat Verified 11/09/20 07:59 swells Current Medications: Generic Name Dose Route Start Last Admin Trade Name Freq PRN Reason Stop Dose Admin Sodium Chloride 1,000 mls @ 50 mls/hr 11/09/20 07:30 11/09/20 07:44 Sodium Chloride 0.9% IV 11/10/20 03:29 Not Given .Q20H ONE Pertinent History/Comorbid Conditions* Medical History (Updated 08/29/20 @ 17:11 by Walter Baird DPM) Amputation toe Diabetes HTN (hypertension) Kidney stone Surgical History (Updated 09/09/19 @ 10:27 by Walter Baird DPM) S/P cataract extraction S/P cholecystectomy S/P tonsillectomy Family History (Updated 08/31/19 @ 12:05 by Daniela Roa RN) Diabetes Mother CAD (coronary artery disease) Mother CHF (congestive heart failure) Mother Myocardial infarction Mother Cancer Father LUNG Social History Smoking and tobacco status: never smoked Alcohol intake: never Household members: spouse Marital status: Current occupational status: retired Pertinent Exam Findings alert, oriented x 3, clear to auscultation bilaterally and regular rate & rhythm Conscious Sedation Assessment AIRWAY EVAL/ANESTHESIA PLAN: ASA II, Risks, benefits & alternatives of sedation and/or procedure discussed and Patient agrees to continue as planned Recommendations Surgery/Procedure today Coding Level of Care Code Acute On Air Host for Abdirizak Zhou
--- NOTE | 2020-11-09 11:17 | PC.CHAP ---
Pastoral Care Encounter/Spiritual Assessment Type of Contact [] Declined shipboard intelligence analyst visit [] Patient/Family/Request visit [] Outpatient visit [x] Follow-up visit [] Physician referral [] Code/Alert [] Routine visit [] Staff referral [] Actively dying [] Patient sleeping [] Family support [] [] Out of room [] Palliative care [] [] Receiving care in room [] Pre-surgical visit [] Trauma [] Long length of stay [] ICU visit [] Other: Proceedure Relational/Emotional Strength [] Patient feels connected with others/family/visitors/staff [] Distress [] Loneliness/isolation [] Abandonment Spirituality of Patient [] Person of Maryann [] Attends Nondenominational of their Maryann [] Believes in Prayer [] Reads Bible or Jew materials [] There are Spiritual issues to be addressed Personal Secretary Interventions [] Prayer [] Active listening [] Non-anxious presence [] Spiritual/emotional support [] Crisis/trauma care [] Spiritual counseling [] Bereavement support [] Provided bereavement packet [] Provided Bible/devotional materials [] Provided toy/stuffed animal, coloring book to patient or family member [] Provided Communion [] Anointing/Hoffmeister [] Salvation [] Completed spiritual assessment [] Other: Impact on Illness or Injury [] Angry [] Fearful [] Anxious [] Often cries [] Exhaustion [] Unable to work [] Unable to attend judaism [] Unable to walk/stand [] Unable to read [] Unable to drive [] Unable to eat/drink [] Unable to sleep [] Unable to be with family [] Patient intubated [] Other: Summary in Proceedure Time spent with patient 5 mins
[2020-11-09 11:28] LABS: Glucose Point of Care 90 mg/dL (70-110)
--- NOTE | 2020-11-09 12:01 | PC.NURSE ---
received from cardiac irrigation laborer at 1105 via bed.report received.pt is awake but drowsy.sr on monitor.right wrist with tr bands on times two and both are inflated.no hematoma noted.right hand is warm to touch and with brisk capillary refill.palpable radial pulse noted distal to tr bands.instructed in activity restrictions,and instructed to notify staff for any bleeding,pain,numbness..or for any concerns at all.pt verb understanding of instructions.
[2020-11-09] MEDS: losartan 50 mg Tablet PO (13:34)
[2020-11-09] MEDS: aspirin 81 mg EC Tablet PO (13:35)
[2020-11-09] MEDS: sodium chloride 0.9% 1,000 ML 75 ML IV (13:35)
[2020-11-09 16:56] LABS: Glucose Point of Care 287 mg/dL (70-110)
--- NOTE | 2020-11-09 18:12 | PC.NURSE ---
proximal tr band removed at 1500 and distal tr band removed at 1600.no hematoma noted .site dressed with 2x2 and secured with biocclusive drsg.right hand remains warm to touch and radial pulse palpable.instructed in activity restrictions s/p tr band removal..and instructed to notify staff for any bleeding,pain,numbness..or for any concerns at all.pt verb understanding of instructions.
[2020-11-09 20:44] LABS: Glucose Point of Care 305 mg/dL (70-110)
[2020-11-09] MEDS: carvedilol 6.25 mg Tablet PO (21:14)
[2020-11-09] MEDS: amitriptyline 25 mg Tablet PO (21:14)
[2020-11-09 23:50] LABS: Glucose Point of Care 51 mg/dL (70-110)
[2020-11-10] VITALS (7 sets, daily range): BP systolic 104–161; BP diastolic 64–87; PULSE 82–93; RESP 10–19; TEMP 36.6–36.9; O2SAT 96
[2020-11-10] MEDS: dextrose 50% syringe 50 mL 25 ML IVP (00:02)
[2020-11-10] MEDS: sodium chloride 0.9% 1,000 ML 75 ML IV (00:03)
[2020-11-10 01:01] LABS: Glucose Point of Care 173 mg/dL (70-110)
[2020-11-10 01:01] LABS: Glucose Point of Care 51 mg/dL (70-110)
[2020-11-10 05:36] LABS: Basophils % 0.4 %; Hematocrit 32.1 % (42.0-52.0); Hemoglobin 10.6 g/dL (11.7-16.6); Lymphocytes # 1.6 10^3/uL (0.8-4.8); Lymphocytes % 23.2 %; Mean Corpuscular Hemoglobin 30.6 pg (28.0-34.0); Mean Corpuscular Volume 92.8 fL (80-94); Mean Platelet Volume 9.5 fL (7.4-10.4); Monocytes # 0.5 10^3/uL (0.2-0.9); Monocytes % 6.8 %; Neutrophils # 4.88 10^3/uL (1.8-7.7); Neutrophils % 69.3 %; Nucleated Red Blood Cells % 0 %; Platelet Count 240 10^3/cmm (130-400); Red Blood Count 3.46 10^6/uL (4.1-5.3); Red Cell Distribution Width 12.5 % (12.1-15.1)
[2020-11-10 05:57] LABS: Anion Gap 12.5 (5-19); Blood Urea Nitrogen 31 mg/dL (8-23); Calcium 7.8 mg/dL (8.5-10.5); Carbon Dioxide 22 mmol/L (22-29); Chloride 107 mmol/L (98-107); Glomerular Filtration Rate 46.5 mL/min (90-130); Glucose 221 mg/dL (65-115); Osmolality Calculated 297 mOsm/kg (285-295); Potassium 4.5 mmol/L (3.5-5.1); Sodium 137 mmol/L (136-145)
[2020-11-10 07:19] LABS: Glucose Point of Care 219 mg/dL (70-110)
[2020-11-10] MEDS: losartan 50 mg Tablet 100 MG PO (08:02)
[2020-11-10] MEDS: levothyroxine 100 mcg Tablet PO (08:04)
[2020-11-10] MEDS: aspirin 81 mg EC Tablet PO (08:04)
[2020-11-10] MEDS: carvedilol 6.25 mg Tablet PO (08:04)
[2020-11-10] MEDS: clopidogrel 75 mg Tablet PO (08:04)
[2020-11-10 11:40] LABS: Glucose Point of Care 361 mg/dL (70-110)
--- NOTE | 2020-11-10 12:16 | P.DS_ITS ---
Discharge Providers Date of Discharge: November 10, 2020 Attending Provider at Discharge: Arnulfo Olvera MD Primary Care Provider: Beatriz Brady Reason for Visit Reason for Visit: [facility] Hospital Course Hospital Course 70-year-old male for worsening of heart failure, abnormal stress test underwent left heart cath noted to have a significant LAD by IFR treated with drug-eluting stent. Mid RCA also had moderate lesion which was not significant by FFR, it was left alone for medical management. Post PCI patient did fine from a cardiovascular perspective except this morning creatinine was slightly increased. Patient is on vancomycin for osteomyelitis. I will hold vancomycin for 2 days we will recheck level of vancomycin on Friday along with Chem-7. Patient has been advised to continue aspirin statin beta-narcisa diuretics and clopidogrel. His blood pressure was moderately elevated losartan was increased 100 mg. We will see him back in cardiology clinic with Ms. Fatou Stewart our cardiology nurse practitioner in 7 days. Will recheck BMP to rule out contrast- induced nephropathy in 2 to 3 days. Patient has been advised to call us with the result as home health are going to come and draw his blood work up on Friday Physical Exam Narrative: EXAM NARRATIVE: GENERAL: Patient is alert, awake and oriented x3. NECK: No jugular vein distension. HEENT: No cyanosis. No icterus. No pallor. HEART: Regular S1 and S2. No murmur, rub or gallop. LUNGS: Clear to auscultate bilaterally. ABDOMEN: Soft, nontender and nondistended. Positive bowel sounds. No guarding, rebound or tenderness. CENTRAL NERVOUS SYSTEM: Grossly nonfocal. EXTREMITIES: Lower extremities without edema bilaterally. Discharge Data Data Completed and Pending: Pending at discharge Category Date Time Status HRIS SPECIALIST request for service Routin e Exams 11/09/20 07:30 Taken Labs from last 24 hours 11/10/20 11/10/20 11/10/20 10:56 07:14 04:58 WBC RBC Hgb Hct MCV MCH MCHC RDW Plt Count MPV Neut % (Auto) Lymph % (Auto) Adams % (Auto) Eos % (Auto) Baso % (Auto) Neut # (Auto) Lymph # (Auto) Adams # (Auto) Eos # (Auto) Baso # (Auto) Nucleated RBC % (a uto) Nucleated RBCs # Sodium 137 Potassium 4.5 Chloride 107 Carbon Dioxide 22 Anion Gap 12.5 BUN 31 H Creatinine 1.5 H GFR Calculation 46.5 L Glucose 221 H POC Glucose 361 H 219 H Calculated Osmolal ity 297 H Calcium 7.8 L 11/10/20 11/10/20 11/09/20 04:58 00:43 23:57 WBC 7.0 RBC 3.46 L Hgb 10.6 L Hct 32.1 L MCV 92.8 MCH 30.6 MCHC 33.0 RDW 12.5 Plt Count 240 MPV 9.5 Neut % (Auto) 69.3 Lymph % (Auto) 23.2 Adams % (Auto) 6.8 Eos % (Auto) 0.0 Baso % (Auto) 0.4 Neut # (Auto) 4.88 Lymph # (Auto) 1.6 Adams # (Auto) 0.5 Eos # (Auto) 0.0 Baso # (Auto) 0.0 Nucleated RBC % (a uto) 0 Nucleated RBCs # 0.0 Sodium Potassium Chloride Carbon Dioxide Anion Gap BUN Creatinine GFR Calculation Glucose POC Glucose 173 H 51 L Calculated Osmolal ity Calcium 11/09/20 11/09/20 11/09/20 23:46 20:31 16:37 WBC RBC Hgb Hct MCV MCH MCHC RDW Plt Count MPV Neut % (Auto) Lymph % (Auto) Adams % (Auto) Eos % (Auto) Baso % (Auto) Neut # (Auto) Lymph # (Auto) Adams # (Auto) Eos # (Auto) Baso # (Auto) Nucleated RBC % (a uto) Nucleated RBCs # Sodium Potassium Chloride Carbon Dioxide Anion Gap BUN Creatinine GFR Calculation Glucose POC Glucose 51 L 305 H 287 H Calculated Osmolal ity Calcium Vitals: Last Vital Signs Temp 98.0 F 11/10/20 10:57 Pulse 84 11/10/20 10:57 Resp 10 L 11/10/20 10:57 BP 161/79 11/10/20 10:57 Pulse Ox 96 11/10/20 10:57 Discharge Plan Discharge Patient Disposition: Home Condition: Stable Prescriptions: Continued nitroglycerin 0.4 mg tablet, sublingual 0.4 mg sublingual PRN RF: 0 amitriptyline 25 mg tablet 25 mg PO DAILY RF: 0 levothyroxine 100 mcg tablet 100 mcg PO DAILY RF: 0 vitamin B complex [B Complex-Vitamin B12] Tablet 1 tab PO QDAY RF: 0 garlic 1,000 mg capsule 1,000 mg PO DAILY RF: 0 turmeric root extract 500 mg capsule 500 mg PO QDAY RF: 0 Levemir U-100 Insulin 100 unit/mL solution 30 unit SUBCUT QAM RF: 0 carvedilol 6.25 mg tablet 6.25 mg PO BID Qty: 180 RF: 3 furosemide 40 mg tablet 20 mg PO DAILY Qty: 30 RF: 0 Multi For Him 1 tab PO DAILY RF: 0 alpha lipoic acid 1 tab PO DAILY RF: 0 resveratrol 1 tab PO DAILY RF: 0 Adult Low Dose Aspirin 81 mg tablet,delayed release (DR/EC) 81 mg PO DAILY Qty: 90 RF: 4 Changed losartan 50 mg tablet 100 mg PO DAILY Qty: 30 RF: 3 Held vancomycin in 0.9 % sodium chl 1 gram/250 mL Solution 1 g IV Q24H RF: 0 Hold Instructions: Resume on 11/14/20. Hold for 3 days. Check vancomycin level on friday, check bmp on friday Discontinued clopidogrel 75 mg tablet 75 mg PO DAILY Qty: 5 RF: 0 No Action clopidogrel 75 mg tablet 75 mg PO DAILY Qty: 90 RF: 4 Discharge Orders: Discharge Order (Routine); Ordered 11/10/20 Ordered By: Arnulfo Olvera Referrals: Fatou Stewart FNP [Nurse Practitioner] - 4-7 days (You will have a follow-up appointment with Fatou Stewart on November 13 at 9:30 AM. Please call [phone] if need to reschedule. Thank You.) Chirstin Eqsuivel MD [Physician] - 1 month (You will have a cardiology appointment with Dr. Esquivel on December 18 at 10 AM. Please call [phone] if need to reschedule. Thank You.) Discharge Diet: Cardiac Discharge Activity: Increase activity as tolerated Patient Instructions: Clopidogrel (By mouth), Left Heart Catheterization (DC), Coronary Intravascular Stent Placement (DC), Cardiac Rehabilitation (DC), Post Angiogram Home Care Instructions Activity Restrictions/Additional Instructions: Follow-up with Fatou Stewart for wound care, Blood draw such as BMP and Vancomy maria ines level. Please hold your vancomycin and Furosemide(Lasix) for 2-3 days until you get your blood draw on Friday. If you gain more than 3 pound in 2 consecutive days or becoming short of breath please call Dr. Esquivel's office. Discharge Attestations Time Spent in Discharge Care*: greater than 30 min Status at Discharge: Cognitive status at discharge: cognitively intact , Behavioral status at discharge: cooperative , Quality Metrics Clinical Quality Measures During this hospital stay, did patient experience: None Coding Level of Care Code Established Pt Acute Chg FW DC note Patient Type Established History Detailed Exam Detailed Medical Decision Making Moderate Complexity
--- NOTE | 2020-11-10 13:01 | PC.CHAP ---
Pastoral Care Encounter/Spiritual Assessment Type of Contact [] Declined lean manufacturing specialist visit [] Patient/Family/Request visit [] Outpatient visit [] Follow-up visit [] Physician referral [] Code/Alert [xx] Routine visit [] Staff referral [] Actively dying [] Patient sleeping [] Family support [] [] Out of room [] Palliative care [] [] Receiving care in room [] Pre-surgical visit [] Trauma [] Long length of stay [] ICU visit [] Other: Relational/Emotional Strength [xx] Patient feels connected with others/family/visitors/staff [] Distress [] Loneliness/isolation [] Abandonment Spirituality of Patient [xx] Person of Maryann [xx] Attends Shinto of their Maryann [xx] Believes in Prayer [xx] Reads Bible or Presybeterian materials [] There are Spiritual issues to be addressed Cigarette Machine Filler Interventions [xx] Prayer [xx] Active listening [xx] Non-anxious presence [xx] Spiritual/emotional support [] Crisis/trauma care [] Spiritual counseling [] Bereavement support [] Provided bereavement packet [xx] Provided Bible/devotional materials [] Provided toy/stuffed animal, coloring book to patient or family member [] Provided Communion [] Anointing/[place] [] Salvation [xx] Completed spiritual assessment [] Other: Impact on Illness or Injury [] Angry [] Fearful [] Anxious [] Often cries [] Exhaustion [] Unable to work [] Unable to attend sabianism [] Unable to walk/stand [] Unable to read [] Unable to drive [] Unable to eat/drink [] Unable to sleep [] Unable to be with family [] Patient intubated [] Other: Summary Patient had stent put in today. He is worried about another surgery in few weeks to remove artery blockages in other parts of the body. That surgery could not be done today and he is worried about what might happen before the next surgery. Our Daily [employer] devotional accepted by him. Time spent with patient
--- NOTE | 2020-11-10 14:30 | PC.NURSE ---
Called [facility] Talked to nurse Hester regarding Dr. Olvera's order to hold pt's Vancomycin infusion for 3 days until they check the Vancomycin level trough on Friday. Hand-off report faxed to [facility] at [phone].
--- NOTE | 2020-11-10 15:06 | PC.NURSE ---
called [facility] pharmacy to verify the Clopidogrel 75 mg daily, 90 tabs quatity for 4 refills [address] ordered by Dr[address] Olvera to pharmacist.
--- NOTE | 2020-11-10 15:38 | PC.NURSE ---
Discharge to home with spouse Dr. Olvera is informed on pt's creatinine level today. Dr. Olvera at bedside, instructed pt and to hold pt's Vancomycin and Furosemide for 3 days until pt get his blood draws on Friday. 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 Educated pt on the importance of taking his Clopidogrel for [address] Olvera discussion at bedside. Educated pt on post angiogram home care such as wound care and activity restrictions and signs and symptoms of infection and how to call 911 or come to E.R for any worsening of symptoms. Pt and verbalizes understanding. Pt and questions has been answered by the doctor at bedside. Discharge packet provided to pt. Ushered via wheelchair.
== END 2020-11-10 15:07 | disposition home or self-care (01) ==
LOC: CCL 07:28 → CSU 07:39
PROVIDERS: PCP Physician Assistant; Visit Provider Internal Medicine Cardiovascular Disease
DX: I25.10 Atherosclerotic heart disease of native coronary artery without angina pectoris (principal); R94.39 Abnormal result of other cardiovascular function study; I50.9 Heart failure, unspecified; I73.9 Peripheral vascular disease, unspecified; E11.9 Type 2 diabetes mellitus without complications; Z79.4 Long term (current) use of insulin; I10 Essential (primary) hypertension; Z82.49 Family history of ischemic heart disease and other diseases of the circulatory system; Z83.3 Family history of diabetes mellitus; E78.5 Hyperlipidemia, unspecified
CPT/HCPCS: 36415; 36416; 36592; 80048; 82962; 85025; 85347; 93454; 96372; C1725; C1769; C1874; C1887; C1894; C9600; J0153; J1644; J1815; J2250; J3010; J3490; J7030; Q0163; Q9967

== ENCOUNTER 2020-11-13 13:14 | Outpatient (CLI) | payer MEDICARE, SELFPAY ==
[2020-11-13 13:35] LABS: Basophils # 0.1 10^3/uL (0.0-0.1); Basophils % 0.9 %; Eosinophils # 0.1 10^3/uL (0.0-0.8); Eosinophils % 1.9 %; Hematocrit 34.8 % (42.0-52.0); Hemoglobin 11.5 g/dL (11.7-16.6); Lymphocytes % 31.3 %; Mean Corpuscular Hemoglobin 30.6 pg (28.0-34.0); Mean Corpuscular Volume 92.6 fL (80-94); Mean Platelet Volume 9.8 fL (7.4-10.4); Monocytes # 0.4 10^3/uL (0.2-0.9); Monocytes % 5.8 %; Neutrophils # 3.86 10^3/uL (1.8-7.7); Neutrophils % 59.9 %; Nucleated Red Blood Cells % 0 %; Platelet Count 275 10^3/cmm (130-400); Red Blood Count 3.76 10^6/uL (4.1-5.3); Red Cell Distribution Width 12.5 % (12.1-15.1); White Blood Count 6.4 10^3/uL (4.0-10.0)
[2020-11-13 13:48] LABS: Anion Gap 10.1 (5-19); Blood Urea Nitrogen 30 mg/dL (8-23); Calcium 8.2 mg/dL (8.5-10.5); Carbon Dioxide 26 mmol/L (22-29); Chloride 108 mmol/L (98-107); Glomerular Filtration Rate 50.4 mL/min (90-130); Glucose 217 mg/dL (65-115); Osmolality Calculated 303 mOsm/kg (285-295); Potassium 4.1 mmol/L (3.5-5.1); Sodium 140 mmol/L (136-145)
[2020-11-13 13:59] LABS: Vancomycin Trough 5.7 ug/mL (10-15)
== END 2020-11-13 13:15 | disposition home or self-care (01) ==
LOC: LAB 13:16
PROVIDERS: PCP Physician Assistant; Visit Provider Thoracic Surgery (Cardiothoracic Vascular Surgery)
DX: M86.171 Other acute osteomyelitis, right ankle and foot (principal)
CPT/HCPCS: 80048; 80202; 85025

== ENCOUNTER 2020-11-16 10:48 | Outpatient (CLI) | payer MEDICARE, SELFPAY ==
[2020-11-16 11:19] LABS: Anion Gap 12.1 (5-19); Blood Urea Nitrogen 24 mg/dL (8-23); Calcium 8.3 mg/dL (8.5-10.5); Carbon Dioxide 29 mmol/L (22-29); Chloride 102 mmol/L (98-107); Glomerular Filtration Rate 54.9 mL/min (90-130); Glucose 126 mg/dL (65-115); Osmolality Calculated 294 mOsm/kg (285-295); Potassium 4.1 mmol/L (3.5-5.1); Sodium 139 mmol/L (136-145)
[2020-11-16 11:30] LABS: Vancomycin Trough 13.4 ug/mL (10-15)
== END 2020-11-16 10:49 | disposition home or self-care (01) ==
PROVIDERS: Nurse Practitioner Family; PCP Physician Assistant; Visit Provider Thoracic Surgery (Cardiothoracic Vascular Surgery)
DX: I10 Essential (primary) hypertension (principal); I73.9 Peripheral vascular disease, unspecified
CPT/HCPCS: 80048; 80202

== ENCOUNTER 2020-11-16 13:13 | Outpatient (CLI) | payer MEDICARE, SELFPAY | END 2020-11-16 13:14 | disposition home or self-care (01) | LOC: WOUND 13:15 | PROVIDERS: PCP Physician Assistant; Visit Provider Thoracic Surgery (Cardiothoracic Vascular Surgery) | DX: E11.621 Type 2 diabetes mellitus with foot ulcer (principal); L97.513 Non-pressure chronic ulcer of other part of right foot with necrosis of muscle; Z89.421 Acquired absence of other right toe(s) | CPT/HCPCS: 11042 ==

== ENCOUNTER 2020-11-20 12:07 | Outpatient (CLI) | payer MEDICARE, SELFPAY ==
[2020-11-20 12:48] LABS: Anion Gap 11.7 (5-19); Blood Urea Nitrogen 25 mg/dL (8-23); Carbon Dioxide 28 mmol/L (22-29); Chloride 104 mmol/L (98-107); Glomerular Filtration Rate 60.2 mL/min (90-130); Glucose 227 mg/dL (65-115); Osmolality Calculated 300 mOsm/kg (285-295); Potassium 4.7 mmol/L (3.5-5.1); Sodium 139 mmol/L (136-145)
[2020-11-20 13:03] LABS: Vancomycin Trough 14.4 ug/mL (10-15)
== END 2020-11-20 12:08 | disposition home or self-care (01) ==
PROVIDERS: PCP Physician Assistant; Visit Provider Thoracic Surgery (Cardiothoracic Vascular Surgery)
DX: M86.171 Other acute osteomyelitis, right ankle and foot (principal)
CPT/HCPCS: 80048; 80202

== ENCOUNTER 2020-11-23 13:56 | Outpatient (CLI) | payer MEDICARE, SELFPAY | END 2020-11-23 13:57 | disposition home or self-care (01) | LOC: WOUND 13:58 | PROVIDERS: PCP Physician Assistant; Visit Provider Thoracic Surgery (Cardiothoracic Vascular Surgery) | DX: E11.621 Type 2 diabetes mellitus with foot ulcer (principal); L97.512 Non-pressure chronic ulcer of other part of right foot with fat layer exposed; Z89.421 Acquired absence of other right toe(s) | CPT/HCPCS: 11042 ==

== ENCOUNTER → 2020-11-24 14:39 | Outpatient (BNVA) | payer MEDICARE, SELFPAY | PROVIDERS: PCP Physician Assistant; Visit Provider Internal Medicine Cardiovascular Disease | DX: Z01.812 Encounter for preprocedural laboratory examination (principal); Z20.822 Contact with and (suspected) exposure to COVID-19 | CPT/HCPCS: 87635 ==

== ENCOUNTER 2020-11-30 13:19 | Observation (INO) | payer MEDICARE, SELFPAY ==
[2020-11-03 10:55] LABS: Basophils % 0.3 %; Eosinophils % 0.1 %; Hematocrit 36.5 % (42.0-52.0); Hemoglobin 12.1 g/dL (11.7-16.6); Lymphocytes # 3.1 10^3/uL (0.8-4.8); Lymphocytes % 39.7 %; Mean Corpuscular HGB Conc 33.2 g/dL (30.0-36.0); Mean Corpuscular Hemoglobin 30.7 pg (28.0-34.0); Mean Corpuscular Volume 92.6 fL (80-94); Monocytes # 0.4 10^3/uL (0.2-0.9); Monocytes % 4.5 %; Neutrophils # 4.34 10^3/uL (1.8-7.7); Neutrophils % 55.3 %; Nucleated Red Blood Cells % 0 %; Platelet Count 271 10^3/cmm (130-400); Red Blood Count 3.94 10^6/uL (4.1-5.3); Red Cell Distribution Width 12.1 % (12.1-15.1); White Blood Count 7.8 10^3/uL (4.0-10.0)
[2020-11-03 11:14] LABS: INR 0.99 (0.83-1.21); Prothrombin Time (Patient) 13.4 Seconds (12.0-15.1)
[2020-11-03 11:16] LABS: Anion Gap 14.4 (5-19); Blood Urea Nitrogen 27 mg/dL (8-23); Calcium 8.3 mg/dL (8.5-10.5); Carbon Dioxide 25 mmol/L (22-29); Chloride 101 mmol/L (98-107); Glomerular Filtration Rate 66.6 mL/min (90-130); Glucose 221 mg/dL (65-115); Osmolality Calculated 294 mOsm/kg (285-295); Potassium 4.4 mmol/L (3.5-5.1); Sodium 136 mmol/L (136-145)
[2020-11-24 14:30] LABS: Basophils # 0.1 10^3/uL (0.0-0.1); Basophils % 1.4 %; Eosinophils % 0.1 %; Hematocrit 39.4 % (42.0-52.0); Lymphocytes # 2.8 10^3/uL (0.8-4.8); Lymphocytes % 32.4 %; Mean Corpuscular Hemoglobin 30.6 pg (28.0-34.0); Mean Corpuscular Volume 92.7 fL (80-94); Mean Platelet Volume 9.3 fL (7.4-10.4); Monocytes # 0.5 10^3/uL (0.2-0.9); Monocytes % 5.9 %; Neutrophils # 5.26 10^3/uL (1.8-7.7); Nucleated Red Blood Cells % 0 %; Platelet Count 312 10^3/cmm (130-400); Red Blood Count 4.25 10^6/uL (4.1-5.3); Red Cell Distribution Width 12.5 % (12.1-15.1); White Blood Count 8.8 10^3/uL (4.0-10.0)
[2020-11-24 14:40] LABS: INR 1.01 (0.8-1.2)
[2020-11-24 14:51] LABS: Anion Gap 11.8 (5-19); Blood Urea Nitrogen 27 mg/dL (8-23); Calcium 8.1 mg/dL (8.5-10.5); Carbon Dioxide 28 mmol/L (22-29); Chloride 103 mmol/L (98-107); Glomerular Filtration Rate 54.9 mL/min (90-130); Glucose 232 mg/dL (65-115); Osmolality Calculated 299 mOsm/kg (285-295); Potassium 4.8 mmol/L (3.5-5.1); Sodium 138 mmol/L (136-145)
[2020-11-30] VITALS (46 sets, daily range): BP systolic 109–171; BP diastolic 61–105; PULSE 90–102; RESP 10–46; TEMP 36.5–37; O2SAT 92–100; BMI 30.2
--- NOTE | 2020-11-30 09:00 | XACV_ITS ---
Ht: 185 cm Wt: 98 kg BSA: 2.27 m2 Any Known Allergies: Penicillins Gender: Male : 1950 Exam Type: Invasive Peripheral Vascular Procedure(s): Procedure Description: Peripheral Cath Diagnostic Procedure Procedure Description: Abdominal aortic angiography Procedure Description: Lower extremities' angiography Exam Priority: Routine Conclusions Indication for peripheral indication for peripheral angiogram: Critical limb ischemia of the right foot.Abdominal aorta has luminal irregularity, left renal artery has luminal irregularity right renal artery is not well visualized. Bilateral common iliac has luminal irregularity, bilateral external and internal iliac arteries luminal irregularity right common femoral has luminal irregularity. 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 Tibioperoneal trunk is not well visualized due to less contrast.Please note that at this point we took patient off the back table due to an emergency in the ER as we have to bring that patient for emergent procedure. We will bring patient back in couple of hours. Further plan will advised then. Recommendations We will continue the sheath in the left common iliac. Due to emergent case from the ER I will take this patient off the table and bring him back in couple of hours. Access Site Site: Left Femoral artery Sheath Size: 6 Fr Hemost... Method: Suture Hemost... Success: Successful Procedure Details Findings Procedure Consent Obtained. Pre-Procedure Time Out. Identified patient by full name and date of as verbalized by the patient/guarantor. Does the consent match the physician's order: Yes. Accurate & Complete Informed Consent: Yes. Inpatient/Outpatient History & Physical on Chart: Yes. If H&P is completed, is and addenduem needed: No; If yes, is the addendum complete: N/A. Visualize and Verify Site with Patient/Guarantor: N/A. Relevant Radiology Images available: Yes. Pre-op teaching completed and patient verbalized understanding. The risks, benefits, and alternatives of sedation and/or procedure were discussed by physician. The patient agrees to continue. Procedure started. PERRLA. Strong, equal hand fruit and vegetable packer bilaterally. Lungs clear x 5 lobes. Current diagnosis: Peripheral Vascular Disease. Correct patient, site and procedure confirmed by cath team. IV Site on Arrival: 20 gauge in the left anticubital. IV Fluids: 0.9% NaCl at KVO. 0 mL infused prior to metallurgy laboratory technician. Pre Procedural Pulses: bilateral dorsalis pedis was Doppled. Pre Procedural Pulses: bilateral posterior tibial was Doppled. Pre Procedural Pulses: bilateral radial was 2+. Oxygen started at 2liters/min via nasal canula. bilateral groins was prepped with chloroprep then draped in the usual sterile fashion. Physician notified. Baseline sample Acquired. HR: 102 BPM. Equipment: Peripheral. Cardiac Cath Pack. ACIST Manifold Kit Model BT 2000. Heparinized Saline (2 units/mL), 1000 mL bag. Physician arrived. Physician scrubbed in. Time out performed with cath team. Lidocaine 1% infiltrated to the left groin. Arterial access obtained with micropuncture set. A 5FrFr RIM catheter in over wire. Glidewire inserted. Catheter out. A 5FrFr UF catheter in over wire. Abdominal aortogram performed in LOVETT @ 10 mL/sec for a total of 30 mL. Glidewire inserted. Catheter out. 6FR regular sheath exchanged for a 6FR flexor long sheath. Dr. Olvera scrubbed out for emergency. Side port of sheath attached to Normal Saline flush at KVO to maintain patency. Wire out. Sheath(s) sutured into position with 2-0 silk and sterile 4x4's and Op-site applied over the site. No oozing or signs and symptoms of hematoma noted. Arterial sheath flushed and connected to tranducer and pressure bag with heparinized saline. Post Procedure: Pulses reassessed and unchanged. PERRLA. Strong, equal hand fruit and vegetable packer bilaterally. No VTE prophylaxis required. A Suture was successful obtaining hemostatsis at the Left Femoral artery insertion site. Due to emergency, patient taken off of table. Vital chart was stopped. Procedure Medications Start: 10:49 AM Stop: 10:49 AM Medication: Versed Amount: 1 mg Route: I.V. Start: 10:49 AM Stop: 10:49 AM Medication: Fentanyl Amount: 50 mcg Route: I.V. Start: 10:57 AM Stop: 10:57 AM Medication: Hydralazine Amount: 10 mg Route: I.V. Start: 10:58 AM Stop: 10:58 AM Medication: Versed Amount: 1 mg Route: I.V. Start: 10:58 AM Stop: 10:58 AM Medication: Fentanyl Amount: 50 mcg Route: I.V. I, the attending physician, have reviewed and verified all procedure medications. Yes, all medications given per verbal order History/Risk Factors Hypertension: Yes Dyslipidemia: Yes Peripheral Arterial Disease (PAD): No Obesity: No Renal Disease: No Tobacco Use: Never Prior Interventions PCI: Yes CABG: No Valve Surgery: No Report Signatures Finalized by Arnulfo Olvera MD on 12/11/2020 09:36 PM
[2020-11-30] MEDS: diphenhydrAMINE 50 mg Capsule PO (09:16)
--- NOTE | 2020-11-30 10:38 | P.HPUD_ITS ---
Surgery/Procedure H&P Update DATE OF PROCEDURE: November 30, 2020 DATE H&P PERFORMED: 11/14/19 H&P UPDATE INFORMATION: I have reviewed H&P completed within last 30 days, I have examined patient prior to procedure and No changes to prior documentation PREOP DIAGNOSIS: Abnormal stress test, LV dysfunction, worsening of heart failure, PLANNED PROCEDURE: Operation Date: 11/30/20 10:00 Proposed Procedures p Peripheral Diagnostic 86943 I73.9(Not Applicable) - Arnulfo Olvera MD PATIENT REASSESSED PRIOR TO SEDATION, WITH NO CHANGE NOTED: Yes PHYSICAL EXAM: alert, oriented x 3, clear to auscultation bilaterally and regular rate & rhythm AIRWAY EVAL/ANESTHESIA PLAN: ASA II, Risks, benefits & alternatives of sedation and/or procedure discussed and Patient agrees to continue as planned ADDITIONAL INFORMATION: Patient has been explained all risk benefit and alt ernative for the procedure. Patient has been explained all the risk for urgent emergent bleeding requiring transfusion, urgent emergent vascular surgery, acute limb ischemia, limb threatening ischemia leading to urgent emergent surgery. He would like to proceed with it. Patient has been explained all risk benefit and alternative for drug-coated balloon which he refused and would not like to use drug-coated balloon however he has nothing against stents or drug-coated stents..
--- NOTE | 2020-11-30 11:40 | SUR.PHASEI ---
PT RETURNED TO [facility] DUE TO EMERGENT CASE BEING BROUGHT TO [employer]STRUCTOR [employer]RESP[employer]. 6 FR SHEATH IN LEFT GROIN STITCHED IN PLACE CONNECTED TO PRESSURE BAG, NO HEMATOMA OR BLEEDING NOTED. PT ABLE TO ANSWER QUESTIONS APPROPRIATELY. STATES NO PAIN. WILL RETURN TO [employer] AFER CASE IS FINISHED.
--- NOTE | 2020-11-30 11:59 | SUR.PHASEI ---
PT AT BEDSIDE, PT ALERT AND TALKING. 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 SHEATH SITE STILL WITH NO BLEEDING OR HEMATOMA.
--- NOTE | 2020-11-30 12:16 | XACV_ITS ---
Ht: 185 cm Wt: 98 kg BSA: 2.27 m2 Any Known Allergies: Penicillins Gender: Male : 1950 Exam Type: Invasive Peripheral Vascular Procedure(s): Procedure Description: Peripheral Cath Diagnostic Procedure Procedure Description: Abdominal aortic angiography Procedure Description: Peripheral vascular Intervention Procedure Description: PV Balloon Procedure Description: Upper Extremity Arteriography Exam Priority: Routine Conclusions Indication for peripheral angiogram: Critical limb ischemia of the right foot. Please note that we perform peripheral angiogram due to elevated is present in the previous report from this morning due to emergent situation in the ER we have to bring patient to the Ramp And Cargo Supervisor therefore Mr. Ugarte was taken off to the Ramp And Cargo Supervisor table well and now we are bringing him back.As per peripheral angiogram described in the previous report patient has chronically occluded ostial to distal SFA and proximal popliteal vessel. Popliteal vessel reconstitute at the distal end. Through left common femoral approach Glidewire and seeker were used to cross the lesion. Balloon angioplasty of the proximal to distal right SFA into the popliteal artery was performed. Excellent angiographic result with good flow was achieved. Right tibioperoneal trunk has luminal irregularity, good single-vessel runoff was noted below the knee,. Recommendations Usual post-cath care. Continue medical management. Hemodynamic Data Phase:Rest AO : 90.0 / 78.0 ( 84.0 ) @ 12:16:00 PM Procedure Details Findings Procedure Consent Obtained. Pre-Procedure Time Out. Identified patient by full name and date of as verbalized by the patient/guarantor. Does the consent match the physician's order: Yes. Accurate & Complete Informed Consent: Yes. Inpatient/Outpatient History & Physical on Chart: Yes. If H&P is completed, is and addenduem needed: No; If yes, is the addendum complete: No. Visualize and Verify Site with Patient/Guarantor: N/A. Relevant Radiology Images available: Yes. Pre-op teaching completed and patient verbalized understanding. The risks, benefits, and alternatives of sedation and/or procedure were discussed by physician. The patient agrees to continue. Procedure started. Correct patient, site and procedure confirmed by cath team. PERRLA. Strong, equal hand septic tank servicer bilaterally. Lungs clear x 5 lobes. IV Fluids: 0.9% NaCl at KVO. 0 mL infused prior to clinical lab clerk. IV Site on Arrival: 20 gauge in the left anticubital. Physician notified. Baseline sample Acquired. HR: 104 BPM. Equipment: Peripheral. Cardiac Cath Pack. ACIST Manifold Kit Model BT 2000. Heparinized Saline (2 units/mL), 1000 mL bag. Physician arrived. Physician scrubbed in. Immediate Pre-Procedure Time Out. Correct Patient: Yes; Correct Procedure: Yes; Correct Site: Yes; Correct Patient Position: Yes; Correct Supplies: Yes; Dried Flammable Prep: Yes; Blood Products Available: No;. Lidocaine 1% infiltrated to the left groin. 6FR sheath already in place from prior procedure. 6FR flexor 45 cm sheath exchanged for new 6FR 45 cm sheath. Right leg runoff performed at 10mL for a total of 30mL. Glidewire inserted. Glidewire out. Trailblazer inserted and parked in the SFA. Hand injection performed. Glidewire inserted. Wire advanced to the TP trunk. Glidewire out. Hand injection performed. Glidewire inserted. Trailblazer out. Inflation number : 1 A [employer] [place] [employer] Catheter [id number] was prepped and advanced across the Superficial Femoral, Right , then inflated to 8 BETTY for 2:06 seconds. Inflation number: 2 The [employer] [place] [employer] SPECIALIST Catheter [id number] was reinflated across the Superficial Femoral, Right, to 8 BETTY for 2:00 seconds. Inflation number: 1 The [employer] [place] [employer] SPECIALIST Catheter [id number] was reinflated across the Proximal Superficial Femoral, Right, to 8 BETTY for 2:01 seconds. Balloon out. 6FR flexor sheath exchanged for 6FR regular sheath. Left leg runoff performed. ACT drawn. Results 183 seconds. Therapeutic limits - pre-heparin administration 90-150 seconds and monitoring heparin during a vascular procedure >250 seconds. Sheath(s) sutured into position with 2-0 silk and sterile 4x4's and Op-site applied over the site. No oozing or signs and symptoms of hematoma noted. Arterial sheath flushed and connected to tranducer and pressure bag with heparinized saline. Post Procedure: Pulses reassessed and unchanged. PERRLA. Strong, equal hand septic tank servicer bilaterally. No VTE prophylaxis required. Medication's Wasted: Heparin = 1000 units. Medication's Wasted: Lidocaine 1% = 12 mL. Medication's Wasted: Nitro = 49.6 mg. Medication's Wasted: Other = Hydralazine 10mg. Total IV fluids: 70.8 mL. Contrast type used: Visipaque 320 mgI/mL, 500 mL bottle. Post-op diagnosis: PAD. Complications: None. Estimated blood loss: 5mL-10mL. Procedure completed. Patient transferred by bed to 1st floor. Vital chart was stopped. Procedure Medications Start: 12:43 PM Stop: 12:43 PM Medication: Versed Amount: 1 mg Route: I.V. Start: 12:43 PM Stop: 12:43 PM Medication: Fentanyl Amount: 50 mcg Start: 12:48 PM Stop: 12:48 PM Medication: Versed Amount: 1 mg Route: I.V. Start: 12:48 PM Stop: 12:48 PM Medication: Fentanyl Amount: 50 mcg Start: 12:50 PM Stop: 12:50 PM Medication: Hydralazine Amount: 10 mg Route: I.V. Start: 1:10 PM Stop: 1:10 PM Medication: Heparin Amount: 5000 units Route: I.V. Start: 1:12 PM Stop: 1:12 PM Medication: Versed Amount: 1 mg Route: I.V. Start: 1:12 PM Stop: 1:12 PM Medication: Fentanyl Amount: 50 mcg Start: 1:31 PM Stop: 1:31 PM Medication: Heparin Amount: 2000 units Route: I.V. I, the attending physician, have reviewed and verified all procedure medications. Yes, all medications given per verbal order History/Risk Factors Hypertension: Yes Dyslipidemia: Yes Peripheral Arterial Disease (PAD): No Obesity: No Renal Disease: No Tobacco Use: Never Prior Interventions PCI: Yes CABG: No Valve Surgery: No Report Signatures Finalized by Arnulfo Olvera MD on 12/11/2020 09:48 PM
[2020-11-30] MEDS: sodium chloride 0.9% 1,000 ML 100 ML IV (13:50)
[2020-11-30 16:10] LABS: Partial Thromboplastin Time 233.4 SECONDS (23.9-36.7)
--- NOTE | 2020-11-30 18:00 | PC.NURSE ---
Pt refused novolog Pt and concerns of taking Novolog sliding scale while in the hospital. Per pt statement he had previous episode in the hospital where he did not tolerate the novolog and bottom his blood sugar level. Notified Dr and received order to okay to start pt on his own home med of insulin.
[2020-11-30 19:00] LABS: Partial Thromboplastin Time 28.9 SECONDS (23.9-36.7)
[2020-11-30 19:24] LABS: Glucose Point of Care 409 mg/dL (70-110)
--- NOTE | 2020-11-30 19:56 | PC.NURSE ---
Bedside report received from [facility]. Pt is A & O x4. Pt has a sheath to left groin, tolerating well. patient has no complaints of pain or needs at this time. Will continue to monitor patient and start sheath removal.
[2020-11-30 20:25] LABS: Glucose Point of Care 395 mg/dL (70-110)
[2020-11-30] MEDS: temazepam 15 mg Capsule PO (21:18)
[2020-11-30] MEDS: FUROsemide 10 mg/mL SDV 4mL 40 MG IVP (21:18)
[2020-11-30] MEDS: HYDROcodone-acetaminophen 5-325 mg Tablet 1 TAB PO (21:18)
[2020-11-30] MEDS: carvedilol 6.25 mg Tablet PO (21:22)
[2020-12-01] VITALS (8 sets, daily range): BP systolic 113–159; BP diastolic 66–90; PULSE 83–98; RESP 12–24; TEMP 36.2–36.9; O2SAT 97–98
--- NOTE | 2020-12-01 01:40 | PC.NURSE ---
Sheath removed @ 2048 per protocol. Hemostasis achieved immediately, pressure applied for 20 minutes. No hematoma formation. Patient tolerated well.
[2020-12-01 04:37] LABS: Basophils # 0.1 10^3/uL (0.0-0.1); Eosinophils % 0.2 %; Hematocrit 38.8 % (42.0-52.0); Hemoglobin 12.7 g/dL (11.7-16.6); Lymphocytes # 2.8 10^3/uL (0.8-4.8); Lymphocytes % 32.5 %; Mean Corpuscular HGB Conc 32.7 g/dL (30.0-36.0); Mean Corpuscular Hemoglobin 30.1 pg (28.0-34.0); Mean Corpuscular Volume 91.9 fL (80-94); Mean Platelet Volume 9.5 fL (7.4-10.4); Monocytes # 0.7 10^3/uL (0.2-0.9); Monocytes % 7.5 %; Neutrophils # 5.07 10^3/uL (1.8-7.7); Neutrophils % 58.6 %; Nucleated Red Blood Cells % 0 %; Platelet Count 247 10^3/cmm (130-400); Red Blood Count 4.22 10^6/uL (4.1-5.3); Red Cell Distribution Width 12.3 % (12.1-15.1); White Blood Count 8.7 10^3/uL (4.0-10.0)
[2020-12-01 04:55] LABS: Anion Gap 13.1 (5-19); Blood Urea Nitrogen 28 mg/dL (8-23); Calcium 7.9 mg/dL (8.5-10.5); Carbon Dioxide 27 mmol/L (22-29); Chloride 105 mmol/L (98-107); Glomerular Filtration Rate 46.5 mL/min (90-130); Glucose 185 mg/dL (65-115); Osmolality Calculated 300 mOsm/kg (285-295); Potassium 5.1 mmol/L (3.5-5.1); Sodium 140 mmol/L (136-145)
[2020-12-01 06:41] LABS: Glucose Point of Care 106 mg/dL (70-110)
[2020-12-01] MEDS: FUROsemide 20 mg Tablet PO (09:33)
[2020-12-01] MEDS: aspirin 81 mg EC Tablet PO (09:33)
[2020-12-01] MEDS: levothyroxine 100 mcg Tablet PO (09:33)
[2020-12-01] MEDS: losartan 50 mg Tablet 100 MG PO (09:34)
[2020-12-01] MEDS: multivitamin therapeutic Tablet 1 TAB PO (09:35)
[2020-12-01] MEDS: clopidogrel 75 mg Tablet PO (09:35)
[2020-12-01 11:15] LABS: Glucose Point of Care 213 mg/dL (70-110)
--- NOTE | 2020-12-01 11:20 | PC.NURSE ---
Pt stated he will use his own home med of Insulin. Notified Dr. Olvera that pt takes Levemir 30 units SQ. Okay with doctor. Pt brought his own flex touch pen and needle. Notified pharmacy to get pt's label as non-formulary.
--- NOTE | 2020-12-01 11:49 | PM.DCS ---
Discharge Providers Date of Admission: 11/30/20 13:19 Date of Discharge: December 01, 2020 Attending Provider at Admission: Arnulfo Olvera MD Attending Provider at Discharge: Arnulfo Olvera MD Primary Care Provider: Beatriz Brady Reason for Visit Reason for Visit: periphreal diagnositic Hospital Course Hospital Course For critical limb ischemia patient underwent peripheral angiogram noted to have complete occlusion of right SFA from the ostium to the distal segment. Through left common femoral approach with the help of Glidewire and seeker we were able to cross the lesion. Balloon angioplasty was performed which revealed excellent angiographic result with good flow above and below the knee. Overnight patient did not report any event. He has good anterior posterior tibial pulse. Foot color looks good he is moving around without any difficulty. Groin wound looks good no hematoma. We will discharge him today. Follow-up with Fatou Stewart in cardiology nurse practitioner in 7 days.. Follow-up with Dr. Moraes in wound care. Physical Exam Narrative: EXAM NARRATIVE: GENERAL: Patient is alert, awake and oriented x3. NECK: No jugular vein distension. HEENT: No cyanosis. No icterus. No pallor. HEART: Regular S1 and S2. No murmur, rub or gallop. LUNGS: Clear to auscultate bilaterally. ABDOMEN: Soft, nontender and nondistended. Positive bowel sounds. No guarding, rebound or tenderness. CENTRAL NERVOUS SYSTEM: Grossly nonfocal. EXTREMITIES: Lower extremities without edema bilaterally. Pulses palpable in the lower extremities, both dorsalis pedis and posterior tibial. Const: COMMON NORMALS: alert Resp: COMMON NORMALS: clear to auscultation bilaterally AUSCULTATION: clear to auscultation bilaterally Neuro: SENSORIUM/ORIENTATION: Yes alert Discharge Data Data Completed and Pending: Pending at discharge Category Date Time Status MANAGER OF BUSINESS OPERATIONS request for service Routin e Exams 11/30/20 09:00 Taken MANAGER OF BUSINESS OPERATIONS request for service Routin e Exams 11/30/20 12:16 Taken Labs from last 24 hours 12/01/20 12/01/20 12/01/20 10:57 06:31 04:13 WBC RBC Hgb Hct MCV MCH MCHC RDW Plt Count MPV Neut % (Auto) Lymph % (Auto) [place] % (Auto) Eos % (Auto) Baso % (Auto) Neut # (Auto) Lymph # (Auto) [place] # (Auto) Eos # (Auto) Baso # (Auto) Nucleated RBC % (a uto) Nucleated RBCs # APTT Sodium 140 Potassium 5.1 Chloride 105 Carbon Dioxide 27 Anion Gap 13.1 BUN 28 H Creatinine 1.5 H GFR Calculation 46.5 L Glucose 185 H POC Glucose 213 H 106 Calculated Osmolal ity 300 H Calcium 7.9 L 12/01/20 11/30/20 11/30/20 04:13 20:16 19:19 WBC 8.7 RBC 4.22 Hgb 12.7 Hct 38.8 L MCV 91.9 MCH 30.1 MCHC 32.7 RDW 12.3 Plt Count 247 MPV 9.5 Neut % (Auto) 58.6 Lymph % (Auto) 32.5 [place] % (Auto) 7.5 Eos % (Auto) 0.2 Baso % (Auto) 1.0 Neut # (Auto) 5.07 Lymph # (Auto) 2.8 [place] # (Auto) 0.7 Eos # (Auto) 0.0 Baso # (Auto) 0.1 Nucleated RBC % (a uto) 0 Nucleated RBCs # 0.0 APTT Sodium Potassium Chloride Carbon Dioxide Anion Gap BUN Creatinine GFR Calculation Glucose POC Glucose 395 H 409 H Calculated Osmolal ity Calcium 11/30/20 11/30/20 18:20 15:15 WBC RBC Hgb Hct MCV MCH MCHC RDW Plt Count MPV Neut % (Auto) Lymph % (Auto) [place] % (Auto) Eos % (Auto) Baso % (Auto) Neut # (Auto) Lymph # (Auto) [place] # (Auto) Eos # (Auto) Baso # (Auto) Nucleated RBC % (a uto) Nucleated RBCs # APTT 28.9 D 233.4 H* Sodium Potassium Chloride Carbon Dioxide Anion Gap BUN Creatinine GFR Calculation Glucose POC Glucose Calculated Osmolal ity Calcium Vitals: Last Vital Signs Temp 97.1 F L 12/01/20 11:22 Pulse 85 12/01/20 11:22 Resp 12 12/01/20 11:22 BP 159/83 12/01/20 11:22 Pulse Ox 98 12/01/20 11:22 Discharge Plan Discharge Patient Disposition: Home Condition: Stable Prescriptions: Continued nitroglycerin 0.4 mg tablet, sublingual 0.4 mg sublingual PRN RF: 0 amitriptyline 25 mg tablet 25 mg PO DAILY RF: 0 levothyroxine 100 mcg tablet 100 mcg PO DAILY RF: 0 vitamin B complex [B Complex-Vitamin B12] Tablet 1 tab PO QDAY RF: 0 garlic 1,000 mg capsule 1,000 mg PO DAILY RF: 0 turmeric root extract 500 mg capsule 500 mg PO QDAY RF: 0 Levemir U-100 Insulin 100 unit/mL solution 30 unit SUBCUT QAM RF: 0 carvedilol 6.25 mg tablet 6.25 mg PO BID Qty: 180 RF: 3 furosemide 40 mg tablet 20 mg PO DAILY Qty: 30 RF: 0 clopidogrel 75 mg tablet 75 mg PO DAILY Qty: 90 RF: 4 Multi For Him 1 tab PO DAILY RF: 0 alpha lipoic acid 1 tab PO DAILY RF: 0 resveratrol 1 tab PO DAILY RF: 0 losartan 50 mg tablet 100 mg PO DAILY Qty: 30 RF: 3 aspirin [Adult Low Dose Aspirin] 81 mg tablet,delayed release (DR/EC) 81 mg PO DAILY Qty: 90 RF: 4 Discharge Orders: Discharge Order (Routine); Ordered 12/01/20 Ordered By: Arnulfo Olvera Referrals: Fatou Stewart FNP [Nurse Practitioner] - 12/11/20 11:00 am (You have a post procedure followup with AMRIT Luna at [facility] December 11 at 11:00am) Christin Esquivel MD [Physician] - 12/18/20 10:15 am (Please keep thhe appointment you already have scheduled with Dr. Esquivel at [facility] on December 18 at 10:15am) WOUND [facility]ARE CL[facility], [Staff Physician] - (Please keep the appointment you already have scheduled at the Wound Care Clinic with Dr. Moraes. Thank you) Discharge Diet: Cardiac Discharge Activity: Increase activity as tolerated Patient Instructions: Peripheral Vascular Angioplasty (DC), Opioid Safety, Post Angiogram Home Care Instructions Activity Restrictions/Additional Instructions: No lifting of more than a gallon of milk for next 3 days. Follow-up with Dr. Moraes as scheduled, follow-up with Dr. Esquivel as scheduled follow-up with Ms. Fatou Stewart in 7 days. Discharge Attestations Time Spent in Discharge Care*: greater than 30 min Status at Discharge: Cognitive status at discharge: cognitively intact, Behavioral status at discharge: cooperative, Quality Metrics Clinical Quality Measures During this hospital stay, did patient experience: None Coding Level of Care Code Acute Chg FW DC note Exam Expanded Problem Focused
--- NOTE | 2020-12-01 12:08 | PC.NURSE ---
carvedilol Pt and stated he has not been taking coreg at home since last week. The is concerned that it made his hands and feet cold and cause reduce blood flow. stated she has been cutting his coreg to half dose. Asked if pt's doctors are aware and she has not. Educated and patient to inform his doctors if there is any concerns on his meds before changing his home meds. and pt verbalizes understanding. Dr. Olvera notified.
--- NOTE | 2020-12-01 14:16 | PC.NURSE ---
Discharge to home Instructed pt on post angiogram home care instructions such as activity restrictions and wound care. disharge packet provided to pt.
== END 2020-12-01 14:17 | disposition home or self-care (01) ==
LOC: CSU 13:20
PROVIDERS: Internal Medicine Cardiovascular Disease; Admitting Provider Internal Medicine Cardiovascular Disease; PCP Physician Assistant; Visit Provider Internal Medicine Cardiovascular Disease
DX: I73.9 Peripheral vascular disease, unspecified (principal); I25.10 Atherosclerotic heart disease of native coronary artery without angina pectoris; Z79.4 Long term (current) use of insulin; E11.9 Type 2 diabetes mellitus without complications; I10 Essential (primary) hypertension
CPT/HCPCS: 36415; 36416; 37224; 80048; 82962; 85025; 85347; 85610; 85730; 96372; C1725; C1769; C1887; C1894; G0378; J0360; J1644; J1940; J2250; J3010; J7030; Q0163; Q9967

== ENCOUNTER 2020-12-04 13:09 | Outpatient (CLI) | payer MEDICARE, SELFPAY | END 2020-12-04 13:10 | disposition home or self-care (01) | LOC: WOUND 13:10 | PROVIDERS: PCP Physician Assistant; Visit Provider Thoracic Surgery (Cardiothoracic Vascular Surgery) | DX: E11.621 Type 2 diabetes mellitus with foot ulcer (principal); L97.512 Non-pressure chronic ulcer of other part of right foot with fat layer exposed; Z89.421 Acquired absence of other right toe(s) | CPT/HCPCS: 11042 ==

== ENCOUNTER 2020-12-11 13:06 | Outpatient (CLI) | payer MEDICARE, SELFPAY | END 2020-12-11 13:07 | disposition home or self-care (01) | LOC: WOUND 13:07 | PROVIDERS: PCP Physician Assistant; Visit Provider Thoracic Surgery (Cardiothoracic Vascular Surgery) | DX: E11.621 Type 2 diabetes mellitus with foot ulcer (principal); L97.512 Non-pressure chronic ulcer of other part of right foot with fat layer exposed; Z89.421 Acquired absence of other right toe(s) | CPT/HCPCS: 11042; 80048; 97597 ==

== ENCOUNTER 2020-12-13 13:14 | Outpatient (CLI) | payer MEDICARE, SELFPAY | END 2020-12-13 13:15 | disposition home or self-care (01) | LOC: WOUND 13:16 | PROVIDERS: PCP Physician Assistant; Visit Provider Thoracic Surgery (Cardiothoracic Vascular Surgery) | DX: E11.621 Type 2 diabetes mellitus with foot ulcer (principal); L97.516 Non-pressure chronic ulcer of other part of right foot with bone involvement without evidence of necrosis; Z89.421 Acquired absence of other right toe(s) | CPT/HCPCS: G0277 ==

== ENCOUNTER 2020-12-14 13:17 | Outpatient (CLI) | payer MEDICARE, SELFPAY | END 2020-12-14 13:18 | disposition home or self-care (01) | LOC: WOUND 13:18 | PROVIDERS: PCP Physician Assistant; Visit Provider Thoracic Surgery (Cardiothoracic Vascular Surgery) | DX: E11.621 Type 2 diabetes mellitus with foot ulcer (principal); L97.516 Non-pressure chronic ulcer of other part of right foot with bone involvement without evidence of necrosis; Z89.421 Acquired absence of other right toe(s) | CPT/HCPCS: G0277 ==

== ENCOUNTER 2020-12-15 13:23 | Outpatient (CLI) | payer MEDICARE, SELFPAY | END 2020-12-15 13:24 | disposition home or self-care (01) | LOC: WOUND 13:24 | PROVIDERS: PCP Physician Assistant; Visit Provider Nurse Practitioner Family | DX: E11.621 Type 2 diabetes mellitus with foot ulcer (principal); L97.516 Non-pressure chronic ulcer of other part of right foot with bone involvement without evidence of necrosis; Z89.421 Acquired absence of other right toe(s) | CPT/HCPCS: G0277 ==

== ENCOUNTER 2020-12-18 16:56 | Inpatient (IN) | payer MEDICARE, SELFPAY ==
[2020-12-18 17:35] VITALS: BP 130/74; PULSE 94; RESP 17; TEMP 36.9; O2SAT 100
--- NOTE | 2020-12-18 17:35 | CTR_ITS ---
PROCEDURE INFORMATION: Exam: CT Right Lower Extremity Without Contrast, Foot Exam date and time: 12/18/2020 6:52 PM Age: 70 years old Clinical indication: Cellulitis; Foot; Right; Prior surgery; Additional info: Cellultis TECHNIQUE: Imaging protocol: CT of the Right lower extremity without contrast was performed. Exam focused on the foot. Radiation optimization: All CT scans at this facility use at least one of these dose optimization techniques: automated exposure control; mA and/or kV adjustment per patient size (includes targeted exams where dose is matched to clinical indication); or iterative reconstruction. COMPARISON: MR foot RT wo/w con [id number] 09/29/2020 8:52 AM RADIATION DOSE METRICS: Total DLP (mGy-cm): 214.28 FINDINGS: Bones/joints: First distal phalanx has been amputated. There is cortical irregularity of the 2nd distal phalanx. No fracture. Soft tissues: There is diffuse subcutaneous edema without organized fluid collection. CT/CT foot RT wo con* [id number] IMPRESSION: 1. Cortical irregularity at the 2nd distal phalanx suspicious for osteomyelitis. 2. Cellulitis without abscess. Radiation Dose CTDIVOL = (mGy): DLP = 214.28 (mGy-cm)
--- NOTE | 2020-12-18 17:41 | P.HP_ITS ---
Providers/Chief Complaint Admitting Physician: Vitaly Leyva MD Primary Care Provider: Beatriz Brady Chief Complaint: cellulitis left foot History of Present Illness Usman Alvarez is a 70 year old male with a past medical history of CAD status post stenting, CHF, insulin-dependent type 2 diabetes mellitus, peripheral arterial disease status post balloon angioplasty, hypertension, hyperlipidemia, history of right foot osteomyelitis status post 6 weeks of IV vancomycin, all for the last 3 weeks, history of chronic diabetic foot infections right foot, managed through wound care, who presents to [facility] due to concerns for right foot, second digit gangrenous necrosis, with surrounding cellulitis, concern for deep tissue infection. Patient tells me that he follows up with wound care, gets regular debridements, over the weekend his right foot second digit became much more dusky appearing, but became gangrenous, he when he presented to the wound care Dr. Moraes was concern for gangrenous necrosis, surrounding cellulitis, deep tissue infection so sent to [facility] for further evaluation. No fevers, chills, recent injuries, recent trauma. She recently finished 3 weeks of vancomycin IV, through PICC line, for deep tissue infection osteomyelitis of the right foot. Has received interventions for peripheral arterial disease on the right side by Dr. Su with the last few months. Review of Systems Const: Denies: fever(s), chills, fatigue or malaise Eyes: Denies: change in vision or blurry vision ENMT: Denies: nasal congestion Resp: Denies: dyspnea, productive cough, non-productive cough or wheezing GI: Denies: abdominal pain, nausea, vomiting, hematemesis, diarrhea, hematochezia or melena : Denies: flank pain or difficulty urinating Musc: Reports: back pain; Denies: neck pain Skin/Breast: Denies: rash Neuro: Denies: headache(s), dizziness or vertigo Endo: Denies: polyuria or polydipsia Medications/Allergies Home Medications Medication Instructions Recorded Confirmed Last Taken Type garlic 1,000 mg capsule 1,000 mg PO DAILY 08/31/19 12/11/20 11/29/20 08:00 History turmeric root extract 500 mg 500 mg PO QDAY 08/31/19 12/11/20 11/29/20 08:00 History capsule vitamin B complex 1 tab PO QDAY 08/31/19 12/11/20 11/29/20 08:00 History Multi For Him 1 tab PO DAILY 06/12/20 12/11/20 11/29/20 08:00 History alpha lipoic acid 1 tab PO DAILY 06/12/20 12/11/20 11/29/20 08:00 History resveratrol 1 tab PO DAILY 06/12/20 12/11/20 11/29/20 08:00 History amitriptyline 25 mg tablet 25 mg PO DAILY 08/08/20 11/29/20 11/29/20 08:00 History levothyroxine 100 mcg tablet 100 mcg PO DAILY tab 08/08/20 12/11/20 11/29/20 08:00 History nitroglycerin 0.4 mg sublingual 0.4 mg SUBLINGUAL PRN 08/08/20 12/11/20 Unknown History tablet insulin detemir U-100 100 unit/mL 30 unit SUBCUT QAM ml 08/22/20 12/11/20 11/29/20 08:00 History subcutaneous solution carvedilol 6.25 mg tablet 6.25 mg PO BID #180 tab 09/27/20 12/11/20 11/29/20 08:00 Rx furosemide 40 mg tablet 20 mg PO DAILY #30 tab 09/27/20 12/11/20 11/29/20 08:00 Rx aspirin [Adult Low Dose Aspirin] 81 mg PO DAILY #90 tab 11/10/20 12/11/20 11/29/20 08:00 Rx clopidogrel 75 mg tablet 75 mg PO DAILY #90 tab 11/10/20 12/11/20 11/29/20 08:00 Rx losartan 100 mg PO DAILY #30 tab 11/10/20 12/11/20 11/29/20 18:00 Rx Allergies Allergy/AdvReac Type Severity Reaction Status Date / Time Penicillins Allergy Severe Throat Verified 12/11/20 11:17 swells PFSH Acute PFSH: Medical History Amputation toe Atherosclerosis of coronary artery Diabetes HTN (hypertension) Kidney stone Surgical History S/P cataract extraction S/P cholecystectomy S/P tonsillectomy Family History Father Cancer LUNG Mother CAD (coronary artery disease) Diabetes CHF (congestive heart failure) Myocardial infarction Social History Smoking and tobacco status: never smoked Alcohol intake: never Household members: spouse Marital status: Current occupational status: retired Physical Exam Const: COMMON NORMALS: no acute distress and patient oriented x3 GENERAL APPEARANCE: cooperative and comfortable HENMT: COMMON NORMALS: normocephalic HEAD & SCALP: normocephalic Eye: COMMON NORMALS: Equal, round and reactive pupils present and EOMs intact bilaterally GENERAL EYE: appearance normal, both eyes and all related structures Neck/C-Spine: COMMON NORMALS: full ROM, no JVD and Thyroid normal Lymph: LYMPHATIC: no lymphadenopathy noted Resp: COMMON NORMALS: normal respiratory effort, No retractions, No use of accessory muscles and clear to auscultation bilaterally AUSCULTATION: clear to auscultation bilaterally Cardio: COMMON NORMALS: no JVD, regular rate, regular rhythm, S1 normal heart sound present, S2 normal heart sound present, No gallops present (Cardio), No clicks present (Cardio) and No murmurs present (Cardio) RATE: regular rate RHYTHM: regular rhythm HEART SOUNDS: S1 normal heart sound present and S2 normal heart sound present GI: COMMON NORMALS: Normal to inspection, nondistended, normoactive bowel sounds present, Soft to palpation, non-tender and No hepatosplenomegaly present PALPATION: Yes Soft to palpation and Yes No hepatosplenomegaly present Extremity: COMMON NORMALS: normal to inspection, full ROM and no pedal edema NARRATIVE EXTREMITY EXAM: Right foot, second digit, dusky in appearance, and gangrenous in appearance, with surrounding cellulitis Neuro: COMMON NORMALS: patient oriented x3, CN's II-XII intact bilaterally, moves all extremities and no focal motor deficits Psych: COMMON NORMALS: mental status grossly normal, Normal thought process present and cooperative THOUGHT PROCESS: Normal thought process present A&P Assessment and plan (1) Diabetic ulcer of right foot: Right foot, second digit, dusky in appearance, gangrenous, with surrounding cellulitis Admit to general medical floors CBC, CMP, ESR, CRP, blood cultures, wound cultures, will do CT scan of the right lower extremity Vancomycin, Levaquin for antibiotic coverage Monitor clinical status, monitor clinical progress Continue aspirin, Plavix for peripheral arterial disease Dr. Moraes at some point will perform a debridement Full code Lovenox for DVT prophylaxis Status: Acute (2) Atherosclerosis of coronary artery: Status: Acute (3) Diabetes mellitus with chronic kidney disease: Continue Levemir 30 units every morning, with insulin sliding scale Status: Acute (4) Hyperlipidemia: Status: Acute Qualifiers: Hyperlipidemia type: mixed hyperlipidemia Qualified Code(s): E78.2 - Mixed hyperlipidemia (5) Diabetes mellitus with peripheral vascular disease: Status: Acute (6) History of diabetic retinopathy: Status: Acute (7) Diabetic neuropathy: Status: Acute (8) Peripheral neuropathy: Status: Acute (9) Diabetic peripheral neuropathy associated with type 2 diabetes mellitus: Status: Acute (10) HTN (hypertension): Status: Acute Qualifiers: Hypertension type: essential hypertension Qualified Code(s): I10 - Essential (primary) hypertension Additional A&P Information Hypothyroidism, continue levothyroxine Attestations Medical Necessity Statement*: Patient requires hospitalization, inpatient, greater than 2 midnights, for diabetic foot ulcer right foot, concern for deep tissue infection, requiring IV antibiotics or treatment Coding Level of Care Code Acute [place] [employer] Controller for [facility] Fwd Diagnoses Diabetic ulcer of right foot E11.621; L97.519 Atherosclerosis of coronary artery I25.10 Diabetes mellitus with chronic kidney disease E11.22 Hyperlipidemia E78.2 Hyperlipidemia type: mixed hyperlipidemia Diabetes mellitus with peripheral vascular disease E11.51 History of diabetic retinopathy Z86.39 Diabetic neuropathy E11.40 Peripheral neuropathy G62.9 Diabetic peripheral neuropathy associated with type 2 diabetes mellitus E11.42 HTN (hypertension) I10 Hypertension type: essential hypertension
[2020-12-18 18:23] LABS: Basophils # 0.1 10^3/uL (0.0-0.1); Basophils % 0.7 %; Eosinophils # 0.1 10^3/uL (0.0-0.8); Eosinophils % 0.8 %; Hematocrit 36.9 % (42.0-52.0); Hemoglobin 12.1 g/dL (11.7-16.6); Lymphocytes # 2.3 10^3/uL (0.8-4.8); Mean Corpuscular HGB Conc 32.8 g/dL (30.0-36.0); Mean Corpuscular Volume 91.3 fL (80-94); Mean Platelet Volume 9.2 fL (7.4-10.4); Monocytes # 0.8 10^3/uL (0.2-0.9); Monocytes % 6.8 %; Neutrophils # 8.75 10^3/uL (1.8-7.7); Neutrophils % 72.5 %; Nucleated Red Blood Cells % 0 %; Platelet Count 363 10^3/cmm (130-400); Red Blood Count 4.04 10^6/uL (4.1-5.3); Red Cell Distribution Width 11.5 % (12.1-15.1); White Blood Count 12.1 10^3/uL (4.0-10.0)
[2020-12-18] MEDS: famotidine 20 mg Tablet PO (18:25)
[2020-12-18] MEDS: levofloxacin-dextrose 5 % 750 MG/150 ML PREMIX 100 MG IV (18:25)
[2020-12-18] MEDS: HYDROcodone-acetaminophen 5-325 mg Tablet 1 TAB PO (18:25)
[2020-12-18 18:50] LABS: NT Pro B Type Natriuretic Pept 4701 pg/mL (0-125)
[2020-12-18 18:51] LABS: C Reactive Protein 136.4 mg/L (0.0-4.9); Thyroid Stimulating Hormone 3.55 uIU/mL (0.27-4.20)
[2020-12-18 19:00] LABS: Erythrocyte Sedimentation Rate 109 mm/hr (0-10)
[2020-12-18 19:02] LABS: Alanine Aminotransferase 12 U/L (0-41); Albumin Level 3.5 g/dL (3.5-5.2); Alkaline Phosphatase 118 IU/L (40-130); Aspartate Amino Transferase 16 U/L (0-40); Blood Urea Nitrogen 24 mg/dL (8-23); Calcium 8.5 mg/dL (8.5-10.5); Carbon Dioxide 27 mmol/L (22-29); Chloride 102 mmol/L (98-107); Globulin 3.3 g/dL (1.3-4.6); Glomerular Filtration Rate 46.5 mL/min (90-130); Glucose 128 mg/dL (65-115); Magnesium 2.2 mg/dL (1.7-2.3); Osmolality Calculated 292 mOsm/kg (285-295); Sodium 138 mmol/L (136-145); Total Bilirubin 0.3 mg/dL (0.15-1.2); Total Protein 6.8 g/dL (6.6-8.7)
[2020-12-18 19:03] LABS: Anion Gap 13.8 (5-19); Potassium 4.8 mmol/L (3.5-5.1)
[2020-12-18 19:36] VITALS: BP 101/67; PULSE 91; RESP 18; TEMP 36.8; O2SAT 95
[2020-12-18 21:33] LABS: Estmated Average Glucose 189; Hemoglobin A1C 8.2 % (4.0-6.0)
[2020-12-18 21:51] LABS: Glucose Point of Care 150 mg/dL (70-110)
[2020-12-18 23:42] VITALS: BP 150/79; PULSE 85; RESP 18; TEMP 36.5; O2SAT 98
[2020-12-19] VITALS (12 sets, daily range): BP systolic 109–153; BP diastolic 70–81; PULSE 82–155; RESP 15–24; TEMP 36.5–37.2; O2SAT 97–100
--- NOTE | 2020-12-19 00:20 | PC.PHAR ---
Pharmacokinetic dosing service Date: 12/19/20 Time: 30 Objective: Patient: Usman Alvarez Floor: 264-1 Age: 70 yo Serum creatinine: 1.5 mg/dL Height: 71.0 Inches Weight (kg): 97.6 Diagnosis: Relevant medical/social history: Cultures and sensitivities: Other labs: Assessment: IBW (kg): 75.30 Dosing wt(kg): 97.6 Estimated Creatinine clearance (ml/min): 50.2 CRCL method: Cockcroft and Gault using ibw(default). Drug selected: Vancomycin Loading dose (mg): 0 Vd (liters): 87.8 (factor used: 0.9 L/kg) Olman (hr-1): 0.046 Half life (hrs): 15.07 Recommended dose: 1500 mg Interval: 18 hrs Infusion time (hrs): 1.5 Predicted peak (mcg/mL): 29.3 Predicted trough (mcg/mL): 13.72 Total body weight is being used for vancomycin dosing. Renal function is stable [ ] /unstable [ ] Recommendations: Give Vancomycin 1500 mg q 18 hrs with an expected Cpeak of 29.3 mcg/ml and an expected Ctrough of 13.72 mcg/ml Renal dosing of other antibiotics (review renal dosing of other medications and list guidelines here): Thank you for the consult, will continue to follow. Signature: Kyung Damian [facility]
[2020-12-19] MEDS: vancomycin 1,500 MG/300 ML PIGGYBACK 200 MG IV ×2 (01:16→20:29)
[2020-12-19] MEDS: HYDROcodone-acetaminophen 5-325 mg Tablet 1 TAB PO (01:39)
[2020-12-19 06:21] LABS: Basophils # 0.1 10^3/uL (0.0-0.1); Basophils % 0.8 %; Eosinophils # 0.1 10^3/uL (0.0-0.8); Eosinophils % 1.6 %; Hematocrit 32.7 % (42.0-52.0); Hemoglobin 10.4 g/dL (11.7-16.6); Lymphocytes # 1.8 10^3/uL (0.8-4.8); Lymphocytes % 21.7 %; Mean Corpuscular HGB Conc 31.8 g/dL (30.0-36.0); Mean Corpuscular Hemoglobin 29.9 pg (28.0-34.0); Mean Platelet Volume 9.1 fL (7.4-10.4); Monocytes # 0.7 10^3/uL (0.2-0.9); Monocytes % 8.4 %; Neutrophils # 5.61 10^3/uL (1.8-7.7); Neutrophils % 66.9 %; Nucleated Red Blood Cells % 0 %; Platelet Count 280 10^3/cmm (130-400); Red Blood Count 3.48 10^6/uL (4.1-5.3); Red Cell Distribution Width 11.6 % (12.1-15.1); White Blood Count 8.4 10^3/uL (4.0-10.0)
[2020-12-19 06:43] LABS: Alanine Aminotransferase 9 U/L (0-41); Albumin Level 2.9 g/dL (3.5-5.2); Alkaline Phosphatase 95 IU/L (40-130); Anion Gap 13.9 (5-19); Aspartate Amino Transferase 11 U/L (0-40); Blood Urea Nitrogen 23 mg/dL (8-23); Calcium 8.1 mg/dL (8.5-10.5); Carbon Dioxide 27 mmol/L (22-29); Chloride 102 mmol/L (98-107); Globulin 2.8 g/dL (1.3-4.6); Glomerular Filtration Rate 46.5 mL/min (90-130); Glucose 107 mg/dL (65-115); Magnesium 2.1 mg/dL (1.7-2.3); Osmolality Calculated 290 mOsm/kg (285-295); Phosphorus 3.9 mg/dL (2.5-4.5); Potassium 4.9 mmol/L (3.5-5.1); Sodium 138 mmol/L (136-145); Total Bilirubin 0.3 mg/dL (0.15-1.2); Total Protein 5.7 g/dL (6.6-8.7)
[2020-12-19 06:50] LABS: Glucose Point of Care 117 mg/dL (70-110)
[2020-12-19] MEDS: clopidogrel 75 mg Tablet PO (08:56)
[2020-12-19] MEDS: losartan 50 mg Tablet 100 MG PO (08:56)
[2020-12-19] MEDS: famotidine 20 mg Tablet PO ×2 (08:56→18:09)
[2020-12-19] MEDS: levothyroxine 100 mcg Tablet PO (08:56)
[2020-12-19] MEDS: aspirin 81 mg EC Tablet PO (08:56)
--- NOTE | 2020-12-19 09:36 | PC.CHAP ---
Pastoral Care Encounter/Spiritual Assessment Type of Contact [] Declined weights and measures inspector visit [] Patient/Family/Request visit [] Outpatient visit [] Follow-up visit [] Physician referral [] Code/Alert [x] Routine visit [] Staff referral [] Actively dying [] Patient sleeping [] Family support [] [x] Out of room [] Palliative care [] [] Receiving care in room [] Pre-surgical visit [] Trauma [] Long length of stay [] ICU visit [] Other: Relational/Emotional Strength [] Patient feels connected with others/family/visitors/staff [] Distress [] Loneliness/isolation [] Abandonment Spirituality of Patient [] Person of Maryann [] Attends Synagogue of their Maryann [] Believes in Prayer [] Reads Bible or Uatsdin materials [] There are Spiritual issues to be addressed [place] Interventions [] Prayer [] Active listening [] Non-anxious presence [] Spiritual/emotional support [] Crisis/trauma care [] Spiritual counseling [] Bereavement support [] Provided bereavement packet [] Provided Bible/devotional materials [] Provided toy/stuffed animal, coloring book to patient or family member [] Provided Communion [] Anointing/[place] [] Salvation [] Completed spiritual assessment [] Other: Impact on Illness or Injury [] Angry [] Fearful [] Anxious [] Often cries [] Exhaustion [] Unable to work [] Unable to attend buddhism [] Unable to walk/stand [] Unable to read [] Unable to drive [] Unable to eat/drink [] Unable to sleep [] Unable to be with family [] Patient intubated [] Other: Summary Time spent with patient
[2020-12-19] MEDS: ondansetron 2 mg/ML SDV 2 mL 4 MG IVP (10:07)
[2020-12-19 10:17] LABS: Glucose Point of Care 130 mg/dL (70-110)
[2020-12-19 11:35] LABS: Glucose Point of Care 187 mg/dL (70-110)
--- NOTE | 2020-12-19 12:04 | PM.PN ---
Subjective Subjective: Interval history: Patient was seen this morning, he tells me that he did have some pain overnight, but overall doing better, no fevers, no chills, no nausea, vomiting Vitals/I&O/Wt Last Vital Signs Temp 98.1 F 12/19/20 11:29 Pulse 87 12/19/20 11:29 Resp 15 12/19/20 11:29 BP 119/73 12/19/20 11:29 Pulse Ox 98 12/19/20 11:29 12/18/20 12/19/20 12/19/20 22:59 06:59 14:59 Intake Total 450 / 450 480 / 480 Output Total 100 / 100 100 / 200 Balance -100 / -100 350 / 250 480 / 480 Weight last 48 hrs Weight 92.986 kg Physical Exam Const: COMMON NORMALS: no acute distress and patient oriented x3 Neck/C-Spine: COMMON NORMALS: no JVD Resp: COMMON NORMALS: normal respiratory effort, No retractions, No use of accessory muscles and clear to auscultation bilaterally AUSCULTATION: clear to auscultation bilaterally Cardio: COMMON NORMALS: no JVD, regular rate, regular rhythm, S1 normal heart sound present and S2 normal heart sound present RATE: regular rate RHYTHM: regular rhythm HEART SOUNDS: S1 normal heart sound present and S2 normal heart sound present GI: COMMON NORMALS: Normal to inspection, nondistended, normoactive bowel sounds present, Soft to palpation, non-tender and No hepatosplenomegaly present PALPATION: Yes Soft to palpation and Yes No hepatosplenomegaly present Extremity: COMMON NORMALS: no pedal edema NARRATIVE EXTREMITY EXAM: Right foot, second digit, dusky in appearance, and gangrenous in appearance, with surrounding cellulitis Neuro: COMMON NORMALS: patient oriented x3 Psych: COMMON NORMALS: mental status grossly normal Data : 12/19/20 05:40 12/19/20 05:40 Micro: Microbiology 12/18/20 18:12 Gram Stain - Final Toe - Abscess 12/18/20 19:30 Blood Culture - Preliminary Blood SPECIMEN COLLECTED 12/18/20 19:36 Blood Culture - Preliminary Blood SPECIMEN COLLECTED A&P Assessment and plan (1) Diabetic ulcer of right foot: Right foot, second digit, dusky in appearance, gangrenous, with surrounding cellulitis Admit to general medical floors Blood cultures and wound cultures pending. ESR 109 CT scan shows osteomyelitis in the right second distal phalanx Vancomycin, Levaquin for antibiotic coverage Monitor clinical status, monitor clinical progress Continue aspirin, Plavix for peripheral arterial disease Dr. Moraes to see patient Full code Lovenox for DVT prophylaxis Status: Acute (2) Atherosclerosis of coronary artery: Status: Acute (3) Diabetes mellitus with chronic kidney disease: Continue Levemir 30 units every morning, with insulin sliding scale Status: Acute (4) Hyperlipidemia: Status: Acute Qualifiers: Hyperlipidemia type: mixed hyperlipidemia Qualified Code(s): E78.2 - Mixed hyperlipidemia (5) Diabetes mellitus with peripheral vascular disease: Status: Acute (6) History of diabetic retinopathy: Status: Acute (7) Diabetic neuropathy: Status: Acute (8) Peripheral neuropathy: Status: Acute (9) Diabetic peripheral neuropathy associated with type 2 diabetes mellitus: Status: Acute (10) HTN (hypertension): Status: Acute Qualifiers: Hypertension type: essential hypertension Qualified Code(s): I10 - Essential (primary) hypertension Additional A&P Information Hypothyroidism, continue levothyroxine Attestations Medical Necessity Statement*: Patient requires hospitalization for diabetic ulcer right foot Coding Level of Care Code Acute Animal Daycare Provider for [facility] Fwd Diagnoses Diabetic ulcer of right foot E11.621; L97.519 Atherosclerosis of coronary artery I25.10 Diabetes mellitus with chronic kidney disease E11.22 Hyperlipidemia E78.2 Hyperlipidemia type: mixed hyperlipidemia Diabetes mellitus with peripheral vascular disease E11.51 History of diabetic retinopathy Z86.39 Diabetic neuropathy E11.40 Peripheral neuropathy G62.9 Diabetic peripheral neuropathy associated with type 2 diabetes mellitus E11.42 HTN (hypertension) I10 Hypertension type: essential hypertension
--- NOTE | 2020-12-19 16:40 | PM.PN ---
Subjective Subjective: Interval history: Mr. Alvarez is afebrile. He states he is feeling improved. His white count has decreased since admission. He continues on parenteral antibiotics. 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 I will plan for amputation of the distal one half of the right second toe tomorrow morning. He request that we attempt to preserve as much length as possible. This is a similar situation to his right great toe which underwent distal amputation previously. Success of this limited amputation was frankly discussed with him and his with the understanding that further surgery or amputation may be required. Details and risk of surgery reviewed. We will plan to proceed with surgery in the morning. Status: Acute Attestations Medical Necessity Statement*: Negative changes right second toe Time Spent in Patient Care: less than 15 minutes Coding Level of Care Code Acute Chief Orthoptist for [facility] Diagnoses Chronic ulcer of toe of right foot with fat layer exposed L97.512
[2020-12-19 17:24] LABS: Glucose Point of Care 204 mg/dL (70-110)
[2020-12-19] MEDS: levofloxacin-dextrose 5 % 750 MG/150 ML PREMIX 100 MG IV (18:08)
--- NOTE | 2020-12-19 19:51 | ECG_ITS ---
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 Measurements Intervals [place] Rate: 152 P: 240 SC: 93 QRS: 23 QRSD: 102 T: 56 QT: 312 QTc: 497 Interpretive Statements POSSIBLE ATRIAL FLUTTER INCOMPLETE RIGHT BUNDLE BRANCH BLOCK [90+ ms QRS DURATION, TERMINAL R IN V1/V2, 40+ ms S IN I/aVL/V4/V5/V6] ABNORMAL RHYTHM ECG Compared to ECG 10/09/2020 12:47:14 Incomplete right bundle-branch block now present Sinus rhythm no longer present T-wave abnormality no longer present Electronically Signed On 12-26-2020 18:39:26 CDT by Christin Esquivel M.D. [id number]
[2020-12-19 19:52] LABS: Glucose Point of Care 206 mg/dL (70-110)
[2020-12-19] MEDS: nitroglycerin 0.4 mg sublingual Tablet SUBLINGUAL (20:01)
[2020-12-19] MEDS: metoprolol tartrate 1 mg/1 mL SDV 5 mL 5 MG IV (20:02)
[2020-12-19 20:42] LABS: Glucose Point of Care 185 mg/dL (70-110)
--- NOTE | 2020-12-19 21:32 | ECG_ITS ---
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 Measurements Intervals [place] Rate: 149 P: 233 WI: 133 QRS: 27 QRSD: 103 T: 58 QT: 307 QTc: 484 Interpretive Statements POSSIBLE ATRIAL FLUTTER LOW QRS VOLTAGE IN EXTREMITY LEADS [QRS DEFLECTION < 0.5 mV IN LIMB LEADS] INCOMPLETE RIGHT BUNDLE BRANCH BLOCK [90+ ms QRS DURATION, TERMINAL R IN V1/V2, 40+ ms S IN I/aVL/V4/V5/V6] ABNORMAL RHYTHM ECG Compared to ECG 12/19/2020 19:29:19 Low QRS voltage now present Electronically Signed On 12-26-2020 18:39:12 CDT by Christin Esquivel M.D. [id number]
[2020-12-19 21:48] LABS: Troponin(5th) Baseline 85 ng/L (0-15)
--- NOTE | 2020-12-19 21:51 | ECG_ITS ---
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 Measurements Intervals [place] Rate: 150 P: [place]: QRS: 30 QRSD: 104 T: 58 QT: 302 QTc: 478 Interpretive Statements ATRIAL FLUTTER/TACHYCARDIA WITH RAPID VENTRICULAR RESPONSE LOW QRS VOLTAGE IN EXTREMITY LEADS [QRS DEFLECTION < 0.5 mV IN LIMB LEADS] ABNORMAL RHYTHM ECG Compared to ECG 12/19/2020 19:29:19 Low QRS voltage now present Incomplete right bundle-branch block no longer present Electronically Signed On 12-26-2020 18:43:35 CDT by Christin Esquivel M.D. [id number]
[2020-12-19] MEDS: amitriptyline 25 mg Tablet PO (22:43)
--- NOTE | 2020-12-19 23:21 | PC.NURSE ---
Patient was noted to be in sinus tachycardia on telemetry. Upon assessment, he reported having chest pressure. Vital signs as follows: 123/83 P152 98% on RA 2L of oxygen applied. Phoned Dr. Barakat at 1938. Orders received: Nitostat sublinqual protocol - do not exceed 3 tabs. Call if pain/pressure persists after 3 tabs are administered. Metoprolol 5mg IVP every 4 hours as needed for HR > 110. Serial troponins, EKG series Nitro and metoprolol were administered at approximately 2000. HR did not decrease, patient became hypotensive at 80s/50s. Placed patient in trendelenberg position. BP 108/64. HR 148 Patient reported chest discomfort radiating into his neck, describing it as a arturo horse. This improved after approximately [address] Barakat arrived to assess the the patient at approximately 2100. Persistently tachycardiac in 140s-150s. Orders received for amiodorone bolus, and drip protocol. Transferred to CSU. , Anna, notified.
[2020-12-19 23:53] LABS: Troponin 5 2HR 86.58 ng/L (0-15); Troponin 5 2HR Delta 1.58 ABS# (0-10)
[2020-12-20] VITALS (109 sets, daily range): BP systolic 111–153; BP diastolic 62–93; PULSE 56–101; RESP 1–32; TEMP 36.1–37.3; O2SAT 94–100
--- NOTE | 2020-12-20 01:51 | ECG_ITS ---
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 Measurements Intervals [place] Rate: 88 P: 14 MS: 161 QRS: 27 QRSD: 94 T: 56 QT: 366 QTc: 445 Interpretive Statements SINUS RHYTHM NONSPECIFIC T-WAVE ABNORMALITY Compared to ECG 12/19/2020 21:43:04 T-wave abnormality now present Atrial flutter no longer present Electronically Signed On 12-21-2020 23:59:35 CDT by Lito Louis M.D. [email or web address] [facility].Pick a Student/store/[id number]
[2020-12-20 03:37] LABS: Basophils # 0.1 10^3/uL (0.0-0.1); Basophils % 0.6 %; Eosinophils # 0.1 10^3/uL (0.0-0.8); Eosinophils % 1.5 %; Hematocrit 33.7 % (42.0-52.0); Hemoglobin 10.7 g/dL (11.7-16.6); Lymphocytes # 1.9 10^3/uL (0.8-4.8); Lymphocytes % 21.8 %; Mean Corpuscular HGB Conc 31.8 g/dL (30.0-36.0); Mean Corpuscular Hemoglobin 30.2 pg (28.0-34.0); Mean Corpuscular Volume 95.2 fL (80-94); Mean Platelet Volume 10.1 fL (7.4-10.4); Monocytes # 0.6 10^3/uL (0.2-0.9); Monocytes % 6.8 %; Neutrophils # 5.86 10^3/uL (1.8-7.7); Neutrophils % 68.9 %; Nucleated Red Blood Cells % 0 %; Platelet Count 285 10^3/cmm (130-400); Red Blood Count 3.54 10^6/uL (4.1-5.3); Red Cell Distribution Width 11.5 % (12.1-15.1); White Blood Count 8.5 10^3/uL (4.0-10.0)
[2020-12-20 04:10] LABS: Alanine Aminotransferase 12 U/L (0-41); Alkaline Phosphatase 112 IU/L (40-130); Aspartate Amino Transferase 18 U/L (0-40); Blood Urea Nitrogen 26 mg/dL (8-23); Calcium 7.7 mg/dL (8.5-10.5); Carbon Dioxide 23 mmol/L (22-29); Chloride 104 mmol/L (98-107); Globulin 2.1 g/dL (1.3-4.6); Glomerular Filtration Rate 43.2 mL/min (90-130); Glucose 139 mg/dL (65-115); Magnesium 2.1 mg/dL (1.7-2.3); Osmolality Calculated 295 mOsm/kg (285-295); Phosphorus 4.6 mg/dL (2.5-4.5); Sodium 139 mmol/L (136-145); Total Bilirubin 0.2 mg/dL (0.15-1.2); Total Protein 5.1 g/dL (6.6-8.7)
[2020-12-20 04:11] LABS: Troponin 5 6HR 87.42 ng/L (0-15); Troponin 5 6HR Delta 2.42 ng/L (0-12)
[2020-12-20 04:16] LABS: Anion Gap 16.9 (5-19); Potassium 4.9 mmol/L (3.5-5.1)
--- NOTE | 2020-12-20 04:33 | PC.NURSE ---
received order from Dr Barakat to hold am dose of levemir
--- NOTE | 2020-12-20 05:05 | PC.NURSE ---
right foot cleaned with chg wipes and wrapped with telfa and kerlex
--- NOTE | 2020-12-20 06:16 | P.PN_ITS ---
Subjective Subjective: Interval history: No complaints this morning. Uneventful night. Vital signs are stable. Vitals/I&O/Wt Last Vital Signs Temp 98 F 12/20/20 04:00 Pulse 88 12/20/20 05:58 Resp 17 12/20/20 04:00 BP 147/93 12/20/20 04:00 Pulse Ox 100 12/20/20 04:00 12/19/20 12/19/20 12/20/20 14:59 22:59 06:59 Intake Total 960 / 960 690 / 1650 203 / 1853 Output Total 250 / 250 Balance 960 / 960 440 / 1400 203 / 1603 Weight last 48 hrs Weight 205 lb Physical Exam Resp: COMMON NORMALS: normal respiratory effort and clear to auscultation bilaterally AUSCULTATION: clear to auscultation bilaterally Cardio: COMMON NORMALS: regular rate, regular rhythm and S1 normal heart sound present RATE: regular rate RHYTHM: regular rhythm HEART SOUNDS: S1 normal heart sound present Extremity: OTHER: Decreased edema of the right to proceed with amputation of the distal one half of the right second toe Data : 12/20/20 03:18 12/20/20 03:18 Micro: Microbiology 12/18/20 19:30 Blood Culture - Preliminary Blood NEGATIVE TO DATE 12/18/20 19:36 Blood Culture - Preliminary Blood NEGATIVE TO DATE 12/18/20 18:12 Gram Stain - Final Toe - Abscess A&P Assessment and plan (1) Chronic 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 Alvarez and his that further surgery including further amputation may be required. He has requested that we attempt to limit amputation as much as possible. He and his are aware that further surgery, limited amputation, or major amputation may be required. Details the risk of the procedure were frankly discussed. Status: Acute Attestations Medical Necessity Statement*: Gangrenous changes right second toe Time Spent in Patient Care: 16 - 35 minutes Coding Level of Care Code Acute Inventory Control Analyst for [employer] Diagnoses Chronic ulcer of toe of right foot with fat layer exposed L97.512
--- NOTE | 2020-12-20 06:51 | P.ANESASSM_ITS ---
Pre-Anesthetic Assessment Pre-Anesthetic Assessment: Height/Weight: Height 1.8 m Weight 92.986 kg Temp Pulse Resp BP Pulse Ox 97 F L 97 18 153/79 100 12/20/20 06:29 12/20/20 06:29 12/20/20 06:29 12/20/20 06:29 12/20/20 06:29 Preop Diagnosis: Abnormal stress test, LV dysfunction, worsening of heart failure, Proposed Procedure: Operation Date: 12/20/20 07:00 Proposed Procedures p Right second toe amputation(Right) - Pantera Moraes MD Was Beta Alexey taken within 24 hours: Yes Was Clonidine taken within 24 hours: N/A Last intake: Intake Last Liquid Date 12/19/20 Last Solid Date 12/19/20 Social: Social History: No alcohol and No tobacco Exam: Pre-Anes Outpt Exam: alert, oriented x 3 and clear to auscultation bilaterally Additional Exam Findings (including area of procedure): Irregular rate and rhythm Airway: Submandibular: WNL Cervical ROM: WNL MP: 2 Additional comments: Edentulous Pulmonary: Pulmonary: SEGURA and SOB CV/HEM: CV/HEM: Afib, Angina (Unstable), Arrythmia, HTN and CA : : None reported Hepatic: Hepatic: None reported GI: GI: None reported Metabolic: Metabolic: DM, Morbid obesity and Thyroid Musc/skel: Musc/skel: OA/DJD Neuropsych: Neuropsych: None reported Anesthetic Plan: ASA status: 4 Anesthesia: MAC Meds/Allergies Current Medications: Current Medications Generic Name Dose Route Start Last Admin Trade Name Freq PRN Reason Stop Dose Admin Hydrocodone Bitart /Acetaminophen 1 tab 12/18/20 17:35 12/19/20 01:39 Hydrocodone-Acet aminophen 5-325 Mg Tablet PO 1 tab Q4H PRN Administration MODERATE TO SEVER E PAIN Amitriptyline HCl 25 mg 12/19/20 21:00 12/19/20 22:43 Amitriptyline 25 Mg Tablet PO 25 mg BEDTIME SAHARA Administration Aspirin 81 mg 12/19/20 09:00 12/19/20 08:56 Aspirin 81 Mg Ec Tablet PO 81 mg DAILY SAHARA Administration Clopidogrel Bisulf ate 75 mg 12/19/20 09:00 12/19/20 08:56 Clopidogrel 75 M g Tablet PO 75 mg DAILY SAHARA Administration Famotidine 20 mg 12/18/20 18:00 12/19/20 18:09 Famotidine 20 Mg Tablet PO 20 mg BID SAHARA Administration Levofloxacin/Dextr ose 750 mg in 150 mls @ 100 mls/hr 12/18/20 19:00 12/19/20 21:01 Levaquin-D5w IV Infused Q24H SAHARA Infusion Protocol Vancomycin/PEG/NAD A/Lysine/Water 1,500 mg in 300 m ls @ 200 mls/hr 12/19/20 01:00 12/19/20 22:44 Vancocin IV Infused Q18H SAHARA Infusion Amiodarone HCl 900 mg/ 518 mls @ 17.267 mls/hr 12/19/20 21:15 12/19/20 22:58 Dextrose/ IV Misce llaneous IV 0.5 mg/min Supplies CONT SAHARA 17.3 mls/hr Administration 0.5 MG/MIN Insulin Aspart 0 unit 12/18/20 18:00 12/19/20 18:09 Insulin Aspart 1 00 Unit/1 Ml SUBCUT 4 unit TIDWM SAHARA Administration Protocol Insulin Detemir 30 unit 12/19/20 06:00 12/20/20 05:07 Insulin Detemir 100 Units/1 Ml SUBCUT Not Given QAM [facility] Levothyroxine Sodi um 100 mcg 12/19/20 09:00 12/19/20 08:56 Levothyroxine 10 0 Mcg Tablet PO 100 mcg DAILY SAHARA Administration Losartan Potassium 100 mg 12/19/20 09:00 12/19/20 08:56 Losartan 50 Mg T ablet PO 100 mg DAILY SAHARA Administration Metoprolol Tartrat e 5 mg 12/19/20 19:43 12/19/20 20:02 Metoprolol Tartr ate 1 Mg/1 Ml Sdv 5 Ml IV 5 mg Q4H PRN Administration HR 110 Nitroglycerin 0.4 mg 12/19/20 19:44 12/19/20 20:01 Nitroglycerin 0. 4 Mg Sublingual Ta blet SUBLINGUAL 1 tab Q5M PRN Administration CHEST PAIN Ondansetron HCl 4 mg 12/18/20 17:35 12/19/20 10:07 Ondansetron 2 Mg /Ml Sdv 2 Ml IVP 4 mg Q8H PRN Administration vomiting, or N/V if npo PFSH Anesthesia PFSH: Medical History Amputation toe Atherosclerosis of coronary artery Diabetes HTN (hypertension) Kidney stone Surgical History S/P cataract extraction S/P cholecystectomy S/P tonsillectomy Family History Father Cancer LUNG Mother CAD (coronary artery disease) Diabetes CHF (congestive heart failure) Myocardial infarction Social History Smoking and tobacco status: never smoked Alcohol intake: never Household members: spouse Marital status: Current occupational status: retired Data Anesthesia CBC & Chem 7: 12/20/20 03:18 12/20/20 03:18 Other Labs: Laboratory Results - last 48 hr 12/18/20 12/18/20 12/18/20 18:00 18:00 18:00 WBC RBC Hgb Hct MCV MCH MCHC RDW Plt Count MPV Neut % (Auto) Lymph % (Auto) [place] % (Auto) Eos % (Auto) Baso % (Auto) Neut # (Auto) Lymph # (Auto) [place] # (Auto) Eos # (Auto) Baso # (Auto) Nucleated RBC % (auto) Nucleated RBCs # ESR 109 H Sodium Potassium Chloride Carbon Dioxide Anion Gap BUN Creatinine GFR Calculation Glucose POC Glucose Estimat Average Glucose 189 Hemoglobin A1c 8.2 H Calculated Osmolality Calcium Phosphorus Magnesium Total Bilirubin AST ALT Alkaline Phosphatase Troponin T Baseline Troponin T 120 Minute Delta Troponin T Troponin T Hi Sens 6Hr Troponin T Hi Sens 6Hr Delta C-Reactive Protein 136.4 H NT-Pro-B Natriuret Pep Total Protein Albumin Globulin Procalcitonin TSH 3.55 12/18/20 12/18/20 12/18/20 18:00 18:00 19:29 WBC 12.1 H RBC 4.04 L Hgb 12.1 Hct 36.9 L MCV 91.3 MCH 30.0 MCHC 32.8 RDW 11.5 L Plt Count 363 MPV 9.2 Neut % (Auto) 72.5 Lymph % (Auto) 19.0 [place] % (Auto) 6.8 Eos % (Auto) 0.8 Baso % (Auto) 0.7 Neut # (Auto) 8.75 H Lymph # (Auto) 2.3 [place] # (Auto) 0.8 Eos # (Auto) 0.1 Baso # (Auto) 0.1 Nucleated RBC % (auto) 0 Nucleated RBCs # 0.0 ESR Sodium 138 Potassium 4.8 Chloride 102 Carbon Dioxide 27 Anion Gap 13.8 BUN 24 H Creatinine 1.5 H GFR Calculation 46.5 L Glucose 128 H POC Glucose 150 H Estimat Average Glucose Hemoglobin A1c Calculated Osmolality 292 Calcium 8.5 Phosphorus 3.0 Magnesium 2.2 Total Bilirubin 0.3 AST 16 ALT 12 Alkaline Phosphatase 118 Troponin T Baseline Troponin T 120 Minute Delta Troponin T Troponin T Hi Sens 6Hr Troponin T Hi Sens 6Hr Delta C-Reactive Protein NT-Pro-B Natriuret Pep 4701 H Total Protein 6.8 Albumin 3.5 Globulin 3.3 Procalcitonin 0.20 TSH 12/19/20 12/19/20 12/19/20 05:40 05:40 06:36 WBC 8.4 RBC 3.48 L Hgb 10.4 L Hct 32.7 L MCV 94.0 MCH 29.9 MCHC 31.8 RDW 11.6 L Plt Count 280 MPV 9.1 Neut % (Auto) 66.9 Lymph % (Auto) 21.7 [place] % (Auto) 8.4 Eos % (Auto) 1.6 Baso % (Auto) 0.8 Neut # (Auto) 5.61 Lymph # (Auto) 1.8 [place] # (Auto) 0.7 Eos # (Auto) 0.1 Baso # (Auto) 0.1 Nucleated RBC % (auto) 0 Nucleated RBCs # 0.0 ESR Sodium 138 Potassium 4.9 Chloride 102 Carbon Dioxide 27 Anion Gap 13.9 BUN 23 Creatinine 1.5 H GFR Calculation 46.5 L Glucose 107 POC Glucose 117 H Estimat Average Glucose Hemoglobin A1c Calculated Osmolality 290 Calcium 8.1 L Phosphorus 3.9 Magnesium 2.1 Total Bilirubin 0.3 AST 11 ALT 9 Alkaline Phosphatase 95 Troponin T Baseline Troponin T 120 Minute Delta Troponin T Troponin T Hi Sens 6Hr Troponin T Hi Sens 6Hr Delta C-Reactive Protein NT-Pro-B Natriuret Pep Total Protein 5.7 L Albumin 2.9 L Globulin 2.8 Procalcitonin TSH 12/19/20 12/19/20 12/19/20 10:14 11:20 17:11 WBC RBC Hgb Hct MCV MCH MCHC RDW Plt Count MPV Neut % (Auto) Lymph % (Auto) [place] % (Auto) Eos % (Auto) Baso % (Auto) Neut # (Auto) Lymph # (Auto) [place] # (Auto) Eos # (Auto) Baso # (Auto) Nucleated RBC % (auto) Nucleated RBCs # ESR Sodium Potassium Chloride Carbon Dioxide Anion Gap BUN Creatinine GFR Calculation Glucose POC Glucose 130 H 187 H 204 H Estimat Average Glucose Hemoglobin A1c Calculated Osmolality Calcium Phosphorus Magnesium Total Bilirubin AST ALT Alkaline Phosphatase Troponin T Baseline Troponin T 120 Minute Delta Troponin T Troponin T Hi Sens 6Hr Troponin T Hi Sens 6Hr Delta C-Reactive Protein NT-Pro-B Natriuret Pep Total Protein Albumin Globulin Procalcitonin TSH 12/19/20 12/19/20 12/19/20 19:36 20:38 20:50 WBC RBC Hgb Hct MCV MCH MCHC RDW Plt Count MPV Neut % (Auto) Lymph % (Auto) [place] % (Auto) Eos % (Auto) Baso % (Auto) Neut # (Auto) Lymph # (Auto) [place] # (Auto) Eos # (Auto) Baso # (Auto) Nucleated RBC % (auto) Nucleated RBCs # ESR Sodium Potassium Chloride Carbon Dioxide Anion Gap BUN Creatinine GFR Calculation Glucose POC Glucose 206 H 185 H Estimat Average Glucose Hemoglobin A1c Calculated Osmolality Calcium Phosphorus Magnesium Total Bilirubin AST ALT Alkaline Phosphatase Troponin T Baseline 85 H Troponin T 120 Minute Delta Troponin T Troponin T Hi Sens 6Hr Troponin T Hi Sens 6Hr Delta C-Reactive Protein NT-Pro-B Natriuret Pep Total Protein Albumin Globulin Procalcitonin TSH 12/19/20 12/20/20 12/20/20 23:00 03:18 03:18 WBC 8.5 RBC 3.54 L Hgb 10.7 L Hct 33.7 L MCV 95.2 H MCH 30.2 MCHC 31.8 RDW 11.5 L Plt Count 285 MPV 10.1 Neut % (Auto) 68.9 Lymph % (Auto) 21.8 [place] % (Auto) 6.8 Eos % (Auto) 1.5 Baso % (Auto) 0.6 Neut # (Auto) 5.86 Lymph # (Auto) 1.9 [place] # (Auto) 0.6 Eos # (Auto) 0.1 Baso # (Auto) 0.1 Nucleated RBC % (auto) 0 Nucleated RBCs # 0.0 ESR Sodium 139 Potassium 4.9 Chloride 104 Carbon Dioxide 23 Anion Gap 16.9 BUN 26 H Creatinine 1.6 H GFR Calculation 43.2 L Glucose 139 H POC Glucose Estimat Average Glucose Hemoglobin A1c Calculated Osmolality 295 Calcium 7.7 L Phosphorus 4.6 H Magnesium 2.1 Total Bilirubin 0.2 AST 18 ALT 12 Alkaline Phosphatase 112 Troponin T Baseline Troponin T 120 Minute 86.58 H Delta Troponin T 1.58 Troponin T Hi Sens 6Hr Troponin T Hi Sens 6Hr Delta C-Reactive Protein NT-Pro-B Natriuret Pep Total Protein 5.1 L Albumin 3.0 L Globulin 2.1 Procalcitonin TSH 12/20/20 03:18 WBC RBC Hgb Hct MCV MCH MCHC RDW Plt Count MPV Neut % (Auto) Lymph % (Auto) [place] % (Auto) Eos % (Auto) Baso % (Auto) Neut # (Auto) Lymph # (Auto) [place] # (Auto) Eos # (Auto) Baso # (Auto) Nucleated RBC % (auto) Nucleated RBCs # ESR Sodium Potassium Chloride Carbon Dioxide Anion Gap BUN Creatinine GFR Calculation Glucose POC Glucose Estimat Average Glucose Hemoglobin A1c Calculated Osmolality Calcium Phosphorus Magnesium Total Bilirubin AST ALT Alkaline Phosphatase Troponin T Baseline Troponin T 120 Minute Delta Troponin T Troponin T Hi Sens 6Hr 87.42 H Troponin T Hi Sens 6Hr Delta 2.42 C-Reactive Protein NT-Pro-B Natriuret Pep Total Protein Albumin Globulin Procalcitonin TSH Micro: Microbiology 12/18/20 19:30 Blood Culture - Preliminary Blood NEGATIVE TO DATE 12/18/20 19:36 Blood Culture - Preliminary Blood NEGATIVE TO DATE 12/18/20 18:12 Gram Stain - Final Toe - Abscess Cardiac Studies: No Data to Display
[2020-12-20] MEDS: sodium chloride 0.9% 1,000 ML 30 ML IV (07:05)
[2020-12-20] MEDS: lidocaine 1% INJ 20 mL INJECTION (07:15)
[2020-12-20] MEDS: vancomycin 1,000 MG SDV 1000 MG IRRIGATION (07:21)
--- NOTE | 2020-12-20 08:25 | P.OP_ITS ---
Operative Report Date of procedure: December 20, 2020 Pre-op Diagnosis: Gangrene Right second toe Post-op diagnosis: same Procedure Done: Amputation right second toe Specimens removed/disposition: Right second toe/to pathology Surgeon: Pantera Moraes Anesthesia: MAC and Local Complications: None Findings: Suppurative changes of the distal portion of the right second toe extending proximally to near the metatarsophalangeal joint. This necessitated removal of the entire toe. Condition: stable Disposition: PACU Brief History: Mr. Alvarez is a 70-year-old diabetic gentleman with peripheral vascular disease status post intervention for PAD to the right lower extremity by Dr. Olvera. He has been followed in wound care for nonhealing right second toe lesion. He had prior amputation of the distal one half of the right great toe. Patient was seen in wound care services 2 days ago with subjective fevers and malaise. There appear to be worsening of the right second toe along with erythema and I recommended admission. He has been under the care of Dr. Leyva from our hospitalist service. He has been on vancomycin and Levaquin. Initial white count was over 12,000 and decreased to 8000 within 24 hours. Serum glucose level was over 400 upon presentation and decreased to 130 after 24 hours. I have recommended amputation of the right second toe. Details of risk the procedure were carefully and frankly discussed. Proper consents have been reviewed and signed. As noted he did have an episode of what appeared to be a flutter with rapid ventricular response overnight. He was treated with IV amiodarone and returned to sinus rhythm. There was slight elevation of his troponin level. This appears to be demand induced. I did discuss carefully with Dr. Jefferson from our anesthesia service. He appears comfortable in proceeding with the planned procedure. Procedure: Mr. Alvarez was taken to the operating room and carefully positioned on the OR table. He received IV conscious sedation with anesthesia monitoring. His entire right foot was sterilely prepped and draped. 1% lidocaine was utili zed to create a digital block to the right second toe. Following this, we initially began our incision at the interphalangeal joint in an attempt to save the proximal portion of the right second toe. However, it became evident fairly quickly there was purulence extending more proximally well down to near the base of the second toe. Therefore we proceeded with an elliptical incision at the base extending down through associated tendons and ligaments down to the phalangeal metatarsal joint. Indeed, purulence did extend down to near this level. The toe was removed at this level. Articular surface of the second metatarsal was then removed utilizing bone rongeur. The bone appeared to be viable and uninvolved at this level. Associated tendons were placed on stretch and divided. The entire wound was irrigated with large amounts of vancomycin laden saline solution. Bleeding was present during amputation, though modest. Following Irrigation, the wound was then closed with interrupted 3-0 nylon suture. Xeroform gauze was applied to the incision. The small wound of the right great toe underwent procedure #and Xeroform gauze was placed on this wound as well. Dressing was then applied. Mr. Alvarez tolerated procedure well and was awakened from conscious sedation and transferred to the PACU in stable condition. He had no arrhythmias throughout the procedure. I did career placement services counselor with his at the completion of the procedure.
[2020-12-20 08:44] LABS: Glucose Point of Care 142 mg/dL (70-110)
--- NOTE | 2020-12-20 08:50 | USCV_ITS ---
Usman Alvarez Age: 70 Gender: M : 1950 Exam Date: 12/20/2020 10:52 Ordering Phys: Vitaly Leyva MD Technologist: Exam Location: [facility] [place] Indication: AFLUTTER BP: 140 / 74 HR: 86 Rhythm: Sinus Technical Quality: Adequate MEASUREMENTS (Male / Female) Normal Values 2D ECHO LV Diastolic Diameter PLAX 4.8 cm 4.2 - 5.9 / 3.9 - 5.3 cm LV Systolic Diameter PLAX 2.8 cm IVS Diastolic Thickness 1.0 cm 0.6 - 1.0 / 0.6 - 0.9 cm IVS Systolic Thickness 1.0 cm LVPW Diastolic Thickness 1.0 cm 0.6 - 1.0 / 0.6 - 0.9 cm LVPW Systolic Thickness 1.5 cm LVOT Diameter 2.0 cm LV Ejection Fraction 2D Teich 71.4 % LV Ejection Fraction MOD 2C 68.3 % LV Ejection Fraction 2C AL 68.3 % LA Diameter 3.7 cm LA Width 4.8 cm LA Height 4.7 cm RA Width 4.0 cm RA Height 4.3 cm Aorta at Sinotubular Diameter 3.0 cm M-MODE LV Diastolic Diameter MM 3.5 cm 4.2 - 5.9 / 3.9 - 5.3 cm LV Systolic Diameter MM 2.6 cm LV Ejection Fraction MM Teich 53.3 % IVS Diastolic Thickness MM 1.0 cm 0.6 - 1.0 / 0.6 - 0.9 cm IVS Systolic Thickness MM 1.7 cm LVPW Diastolic Thickness MM 1.0 cm 0.6 - 1.0 / 0.6 - 0.9 cm LVPW Systolic Thickness MM 1.5 cm RV Diastolic Diameter MM 1.3 cm DOPPLER AV Peak Velocity 153.0 cm/s LVOT Peak Velocity 101.0 cm/s AV Area Cont Eq vti 2.2 cm squared AV Area Cont Eq pk 2.1 cm squared MV Area PHT 5.0 cm squared Mitral E to A Ratio 0.9 MV E' Velocity 61.5 cm/s Mitral E to MV E' Ratio 21.4 Mitral E to LV E' Lateral Ratio 24.1 Mitral E to LV E' Septal Ratio 19.7 TR Peak Velocity 129.3 cm/s TR Peak Gradient 6.7 mmHg TV Peak E Velocity 130.0 cm/s PV Peak Velocity 63.3 cm/s FINDINGS Left Ventricle Diffuse hypokinesia of the left ventricle with ejection fraction of around 40 to 45%.Grade I/IV diastolic dysfunction (abnormal relaxation filling pattern), normal to mildly elevated filling pressures. Technically difficult study because of the poor ultrasonic window Right Ventricle Normal right ventricular size and systolic function. Right Atrium Normal right atrial size. Left Atrium Normal left atrial size. Mitral Valve Thickened mitral valve. Moderate mitral annular calcification. Aortic Valve Thickened aortic valve. Aortic valve sclerosis. Tricuspid Valve No gross abnormalities noted Pulmonic Valve Pulmonic valve not well visualized. Pericardium Normal pericardium without effusion. Aorta Normal ascending aorta dimension. CONCLUSIONS Diffuse hypokinesia of the left ventricle with ejection fraction of around 40 to 45%. Grade I/IV diastolic dysfunction (abnormal relaxation filling pattern), normal to mildly elevated filling pressures. Technically difficult study because of the poor ultrasonic window. Thickened mitral valve. Moderate mitral annular calcification. Features of of aortic valve sclerosis No significant regurgitant lesions, based on the color flow examination Technically difficult study because of the poor ultrasonic window. Comparison with the previous study is difficult because of the difference in the technical quality. Dr Lito Louis MD [facility] (Electronically Signed) Final Date: 21 Dec 2020 01:07 S
--- NOTE | 2020-12-20 08:53 | ANE.PACU2 ---
Inpatient post-anesthesia follow up: Airway intact: Yes Vital signs: Temperature 98.3 F Pulse Rate 85 Respiratory Rate 16 Blood Pressure 136/69 Pulse Oximetry 98 Oxygen Delivery Me thod Room Air Oxygen Flow Rate 6 Fraction of Inspir ed Oxygen Hydration adequate: Yes Nausea and vomiting: No Pain level: 1 Mental status: Baseline
[2020-12-20] MEDS: dilTIAZem 30 mg Tablet PO ×3 (09:57→21:33)
[2020-12-20] MEDS: ondansetron 2 mg/ML SDV 2 mL 4 MG IVP (10:27)
[2020-12-20 11:12] LABS: Glucose Point of Care 196 mg/dL (70-110)
[2020-12-20] MEDS: HYDROcodone-acetaminophen 5-325 mg Tablet 1 TAB PO ×3 (11:47→21:33)
--- NOTE | 2020-12-20 12:17 | P.PN_ITS ---
Subjective Subjective: Interval history: Overnight patient developed episodes of atrial flutter, requiring metoprolol, however his blood pressures did drop, requiring transfer down to CSU for amiodarone drip, currently he converted to normal sinus rhythm, amiodarone drip has been turned off, he went to the OR at this morning, had amputation of right second toe, tolerated procedure well, currently alert oriented x3, no chest pain, no palpitation, no lightheadedness, no dizziness, no nausea, no vomiting Vitals/I&O/Wt Last Vital Signs Temp 98.2 F 12/20/20 11:09 Pulse 56 L 12/20/20 11:09 Resp 21 H 12/20/20 11:09 BP 111/77 12/20/20 11:09 Pulse Ox 94 12/20/20 11:09 12/19/20 12/20/20 12/20/20 22:59 06:59 14:59 Intake Total 690 / 1650 203 / 1853 220.287 / 220.287 Output Total 250 / 250 49 / 49 Balance 440 / 1400 203 / 1603 171.287 / 171.287 Weight last 48 hrs Weight 92.986 kg Physical Exam Chest: COMMONS NORMALS: normal inspection of the chest Cardio: COMMON NORMALS: regular rate, regular rhythm, S1 normal heart sound present and S2 normal heart sound present RATE: regular rate RHYTHM: regular rhythm HEART SOUNDS: S1 normal heart sound present and S2 normal heart sound present GI: COMMON NORMALS: Normal to inspection, nondistended, normoactive bowel sounds present, Soft to palpation, non-tender and No hepatosplenomegaly present PALPATION: Yes Soft to palpation and Yes No hepatosplenomegaly present Extremity: OTHER: Right lower extremity, and Kerlix bandage Data : 12/20/20 03:18 12/20/20 03:18 Micro: Microbiology 12/18/20 18:12 Gram Stain - Final Toe - Abscess Abscess Culture - Preliminary Staphylococcus aureus 12/18/20 19:30 Blood Culture - Preliminary Blood NEGATIVE TO DATE 12/18/20 19:36 Blood Culture - Preliminary Blood NEGATIVE TO DATE A&P Assessment and plan (1) Diabetic ulcer of right foot: Right foot, second digit, dusky in appearance, gangrenous, with surrounding cellulitis Status post amputation of right second toe Admit to general medical floors Blood cultures and wound cultures pending. ESR 109 CT scan shows osteomyelitis in the right second distal phalanx Vancomycin, Levaquin for antibiotic coverage, likely patient will require oral antibiotics on discharge Monitor clinical status, monitor clinical progress Continue aspirin, Plavix for peripheral arterial disease Dr. Moraes to see patient Full code Lovenox for DVT prophylaxis Status: Acute (2) Atherosclerosis of coronary artery: , Continue aspirin, Plavix Status: Acute (3) Diabetes mellitus with chronic kidney disease: Continue Levemir 30 units every morning, with insulin sliding scale Status: Acute (4) Hyperlipidemia: Status: Acute Qualifiers: Hyperlipidemia type: mixed hyperlipidemia Qualified Code(s): E78.2 - Mixed hyperlipidemia (5) Diabetes mellitus with peripheral vascular disease: Status: Acute (6) History of diabetic retinopathy: Status: Acute (7) Diabetic neuropathy: Status: Acute (8) Peripheral neuropathy: Status: Acute (9) Diabetic peripheral neuropathy associated with type 2 diabetes mellitus: Status: Acute (10) HTN (hypertension): Status: Acute Qualifiers: Hypertension type: essential hypertension Qualified Code(s): I10 - Essential (primary) hypertension (11) Atrial flutter: -Patient does report intermittent fluttering of his chest -Required amiodarone drip, currently off -On normal sinus rhythm -Continue Cardizem -Troponins as high as 87.42, 6-hour delta 2.42 -EKG no acute ST-T wave changes -Monitor for chest pain, monitor telemetry, monitor EKGs, monitor troponins -Cardiac echocardiogram ordered -Recently patient had stent placement RCA, in November 2020 -We will transition to Eliquis, but therapeutic Lovenox for now Status: Acute Additional A&P Information Hypothyroidism, continue levothyroxine Attestations Medical Necessity Statement*: Patient requires hospitalization, for diabetic ulcer, status post amputation, cellulitis, atrial flutter Coding Level of Care Code Acute Publications Production Supervisor for [facility] Fwd Diagnoses Diabetic ulcer of right foot E11.621; L97.519 Atherosclerosis of coronary artery I25.10 Diabetes mellitus with chronic kidney disease E11.22 Hyperlipidemia E78.2 Hyperlipidemia type: mixed hyperlipidemia Diabetes mellitus with peripheral vascular disease E11.51 History of diabetic retinopathy Z86.39 Diabetic neuropathy E11.40 Peripheral neuropathy G62.9 Diabetic peripheral neuropathy associated with type 2 diabetes mellitus E11.42 HTN (hypertension) I10 Hypertension type: essential hypertension Atrial flutter I48.92
[2020-12-20 12:23] LABS: Troponin T (5th) Once 76 ng/L (0-15)
[2020-12-20] MEDS: vancomycin 1,500 MG/300 ML PIGGYBACK 200 MG IV (13:51)
[2020-12-20 16:22] LABS: Glucose Point of Care 277 mg/dL (70-110)
[2020-12-20] MEDS: levofloxacin-dextrose 5 % 750 MG/150 ML PREMIX 100 MG IV (17:16)
[2020-12-20] MEDS: famotidine 20 mg Tablet PO (17:21)
[2020-12-20] MEDS: enoxaparin 100 mg/mL Syringe 90 MG SUBCUT (17:21)
--- NOTE | 2020-12-20 18:25 | PM.CONSULT ---
Providers/Reason For Consult Consulting Physican/Specialty*: SEVERIANO Louis MD/cardiology Reason for Consult*: Patient with history of coronary artery disease, status post recent PCI, currently with chest pain and elevated troponin T Attending Physician: Vitaly Leyva MD Primary Care Provider: Beatriz Brady History of Present Illness History of Present Illness Usman Alvarez is a 70 year old male with a history of atherosclerotic heart disease, status post PCI of the mid LAD, underwent amputation of the right second toe by Dr. Moraes today for nonhealing ulcer/osteomyelitis. He is complaining of intermittent episodes of tight feeling in the chest postoperatively. Cardiology consult is requested for further cardiac evaluation recommendations. This patient had a cardiac catheterization followed by PCI of the mid LAD lesion approximately a month ago. He had moderate disease in the right coronary artery which was found to be functionally insignificant by FFR. According the patient, he has been having episodes of tightness/heaviness in the chest intermittently for the last many months. Even after the PCI, he did not have any significant improvement of the symptoms. The current feeling of tightness/pressure in the chest is chronic with no significant change. He also has been having episodes of palpitations for the last many months. Last night, he had a prolonged episode of palpitation associated with chest tightness. He was found to be in atrial flutter with rapid ventricular rate. Even though he had palpitations before, usually it lasts only for a few minutes. But last night the palpitation lasted for 3 to 4 hours. His troponin T went up to 70 following this episode. The EKG did not reveal any acute ST-T changes. Patient is known to have cardiomyopathy with an LV ejection fraction of 30 to 35%, based on echocardiogram in July 2020. He has not had any repeat echocardiogram, following the PCI. Known to have peripheral arterial disease-severe diffuse disease in the SFA and popliteal artery bilaterally. He underwent atherectomy followed by angioplasty and stent placement of the right SFA in 2018. Apparently he did well after this. He had amputation of the right big toe for nonhealing ulcer and osteomyelitis in 2019. He has been in undergoing the wound care clinic for a nonhealing ulcer in his second toe on the right side. Lately the infection was found to be getting worse with purulent discharges and features of osteomyelitis. He had a repeat peripheral angiogram last month which revealed reocclusion of the right SFA from the ostium to the popliteal artery. He underwent balloon angioplasty of this lesion by Dr. Olvera. Apparently he has severe infrapopliteal disease. Review of Systems Narrative: CONSTITUTIONAL: No fever or chills. EYES: No blurring of vision or other visual disturbances lately. ENT: No hoarseness of voice, auditory disturbances or sore throat. CARDIOVASCULAR: As mentioned above. RESPIRATORY: No significant cough. GASTROINTESTINAL: No hematemesis or melena. GENITOURINARY: No dysuria or hematuria. INTEGUMENTARY: No skin rashes or history of skin cancer. NEURO: No transient ischemic attacks or amaurosis. PSYCHIATRIC: No history of psychosis or major depression. HEMATOLOGIC: No bleeding disorders or significant anemia. ENDOCRINE: Uncontrolled diabetes MUSCULOSKELETAL: As mentioned above ALLERGY/IMMUNOLOGY: As mentioned above. Meds/Allergies Home Medications and Allergies Home Medications Medication Instructions Recorded Confirmed Last Taken Type garlic 1,000 mg capsule 1,000 mg PO DAILY 08/31/19 12/19/20 11/29/20 08:00 History turmeric root extract 500 mg 500 mg PO DAILY 08/31/19 12/19/20 11/29/20 08:00 History capsule vitamin B complex 1 tab PO DAILY 08/31/19 12/19/20 11/29/20 08:00 History alpha lipoic acid 1 tab PO DAILY 06/12/20 12/19/20 11/29/20 08:00 History multivitamin 1 tab PO DAILY #0 06/12/20 12/19/20 11/29/20 08:00 History resveratrol 1 tab PO DAILY 06/12/20 12/19/20 11/29/20 08:00 History amitriptyline 25 mg tablet 25 mg PO BEDTIME 08/08/20 12/19/20 11/29/20 08:00 History levothyroxine 100 mcg tablet 100 mcg PO DAILY tab 08/08/20 12/19/20 11/29/20 08:00 History nitroglycerin 0.4 mg sublingual 0.4 mg SUBLINGUAL Q2M PRN 08/08/20 12/19/20 Unknown History tablet insulin detemir U-100 100 unit/mL 30 unit SUBCUT QAM ml 08/22/20 12/19/20 11/29/20 08:00 History subcutaneous solution carvedilol 6.25 mg tablet 6.25 mg PO BID #180 tab 09/27/20 12/19/20 11/29/20 08:00 Rx furosemide 40 mg tablet 20 mg PO DAILY #30 tab 09/27/20 12/19/20 11/29/20 08:00 Rx aspirin [Adult Low Dose Aspirin] 81 mg PO DAILY #90 tab 11/10/20 12/19/20 11/29/20 08:00 Rx clopidogrel 75 mg tablet 75 mg PO DAILY #90 tab 11/10/20 12/19/20 11/29/20 08:00 Rx losartan 100 mg PO DAILY #30 tab 11/10/20 12/19/20 11/29/20 18:00 Rx Allergies Allergy/AdvReac Type Severity Reaction Status Date / Time Penicillins Allergy Severe Throat Verified 12/11/20 11:17 [email or web address] Current Medications Current Medications Generic Name Dose Route Start Last Admin Trade Name Freq PRN Reason Stop Dose Admin Hydrocodone Bitart/Acetaminophen 1 tab 12/18/20 17:35 12/20/20 17:17 Hydrocodone-Acetaminophen 5-325 Mg Tablet PO 1 tab Q4H PRN Administration MODERATE TO SEVERE PAIN Amitriptyline HCl 25 mg 12/19/20 21:00 12/19/20 22:43 Amitriptyline 25 Mg Tablet PO 25 mg BEDTIME SAHARA Administration Aspirin 81 mg 12/19/20 09:00 12/19/20 08:56 Aspirin 81 Mg Ec Tablet PO 81 mg DAILY SAHARA Administration Clopidogrel Bisulfate 75 mg 12/19/20 09:00 12/19/20 08:56 Clopidogrel 75 Mg Tablet PO 75 mg DAILY SAHARA Administration Diltiazem HCl 30 mg 12/20/20 09:00 12/20/20 17:21 Diltiazem 30 Mg Tablet PO 30 mg Q6H SAHARA Administration Enoxaparin Sodium 90 mg 12/20/20 18:00 12/20/20 17:21 Enoxaparin 100 Mg/Ml Syringe 1 mg/kg (90 mg) 90 mg SUBCUT Administration Q12H SAHARA Famotidine 20 mg 12/18/20 18:00 12/20/20 17:21 Famotidine 20 Mg Tablet PO 20 mg BID SAHARA Administration Levofloxacin/Dextrose 750 mg in 150 mls @ 100 mls/hr 12/18/20 19:00 12/20/20 17:16 Levaquin-D5w IV 100 mls/hr Q24H SAHARA Administration Protocol Vancomycin/PEG/NADA/Lysine/Water 1,500 mg in 300 mls @ 200 mls/hr 12/19/20 01:00 12/20/20 13:51 Vancocin IV 200 mls/hr Q18H SAHARA Administration Insulin Aspart 0 unit 12/18/20 18:00 12/20/20 17:22 Insulin Aspart 100 Unit/1 Ml SUBCUT Not Given TIDWM SAHARA Protocol Insulin Detemir 30 unit 12/19/20 06:00 12/20/20 05:07 Insulin Detemir 100 Units/1 Ml SUBCUT Not Given QAM SAHARA Levothyroxine Sodium 100 mcg 12/19/20 09:00 12/19/20 08:56 Levothyroxine 100 Mcg Tablet PO 100 mcg DAILY SAHARA Administration Losartan Potassium 100 mg 12/19/20 09:00 12/19/20 08:56 Losartan 50 Mg Tablet PO 100 mg DAILY SAHARA Administration Metoprolol Tartrate 5 mg 12/19/20 19:43 12/19/20 20:02 Metoprolol Tartrate 1 Mg/1 Ml Sdv 5 Ml IV 5 mg Q4H PRN Administration HR 110 Nitroglycerin 0.4 mg 12/19/20 19:44 12/19/20 20:01 Nitroglycerin 0.4 Mg Sublingual Tablet SUBLINGUAL 1 tab Q5M PRN Administration CHEST PAIN Ondansetron HCl 4 mg 12/18/20 17:35 12/20/20 10:27 Ondansetron 2 Mg/Ml Sdv 2 Ml IVP 4 mg Q8H PRN Administration vomiting, or N/V if npo PFSH Acute PFSH: Medical History Amputation toe Atherosclerosis of coronary artery Diabetes HTN (hypertension) Kidney stone Surgical History S/P cataract extraction S/P cholecystectomy S/P tonsillectomy Family History Father Cancer LUNG Mother CAD (coronary artery disease) Diabetes CHF (congestive heart failure) Myocardial infarction Social History Smoking and tobacco status: never smoked Alcohol intake: never Household members: spouse Marital status: Current occupational status: retired Vitals/I&O/Wt Last Vital Signs Temp 98.2 F 12/20/20 11:09 Pulse 56 L 12/20/20 11:09 Resp 21 H 12/20/20 11:09 BP 111/77 12/20/20 11:09 Pulse Ox 94 12/20/20 11:09 12/20/20 12/20/20 12/20/20 06:59 14:59 22:59 Intake Total 203 / 1853 460.287 / 460.287 Output Total 49 / 49 Balance 203 / 1603 411.287 / 411.287 Weight last 48 hrs Weight 205 lb Physical Exam Narrative: EXAM NARRATIVE: GENERAL: The patient is alert and oriented times three. Not in any acute distress. HEENT: Minimal pallor, no icterus or lymphadenopathy. The pupils are reactant to light. Oral cavity: There are no mucous membrane lesions. Funduscopic examination: The fundus is not visualized NECK: Trachea appears to be central. No masses noted. No JVD or thyromegaly appreciated. No carotid bruit. RESPIRATORY: Chest is symmetrical. No intercostals muscle retraction or any accessory muscle activation. There is no chest wall tenderness. Breath sounds are heard bilaterally. No rales or rhonchi heard. No evidence of any consolidation. BREASTS: Deferred. HEART: The PMI could not be palpated. No other palpable precordial events. S1 and S2 are normal. No S3 or S4 heard. No pericardial rub or any click heard. ABDOMEN: No vessel pulsations or distention. No tenderness. No organomegaly appreciated. No abdominal bruit. Bowel sounds are normally heard. : Deferred. RECTAL: Deferred. LYMPHATIC: No lymphadenopathy noted in the neck or groin. EXTREMITIES: The dorsalis pedis and posterior pulses on the left side are nonpalpable. Femoral pulses are palpable in fairly good volume bilaterally. MUSCULOSKELETAL: No acute joint deformities or any swelling. SKIN: There are no significant scars or skin rash noted. NEUROPSYCHIATRIC: The patient is alert and oriented x3. Appears to be in a good mood. The higher functions are grossly within normal limits. No tremors or rigidity noted. Data Labs: Other Labs: Laboratory Last Values WBC 8.5 10^3/uL (4.0- 10.0) 12/20/20 03:18 RBC 3.54 10^6/uL (4.1 -5.3) L 12/20/20 03:18 Hgb 10.7 g/dL (11.7-1 6.6) L 12/20/20 03:18 Hct 33.7 % (42.0-52.0 ) L 12/20/20 03:18 MCV 95.2 fL (80-94) H 12/20/20 03:18 MCH 30.2 pg (28.0-34. 0) 12/20/20 03:18 MCHC 31.8 g/dL (30.0-3 6.0) 12/20/20 03:18 RDW 11.5 % (12.1-15.1 ) L 12/20/20 03:18 Plt Count 285 10^3/cmm (130 -400) 12/20/20 03:18 MPV 10.1 fL (7.4-10.4 ) 12/20/20 03:18 Neut % (Auto) 68.9 % 12/20/20 03:18 Lymph % (Auto) 21.8 % 12/20/20 03:18 Sac % (Auto) 6.8 % 12/20/20 03:18 Eos % (Auto) 1.5 % 12/20/20 03:18 Baso % (Auto) 0.6 % 12/20/20 03:18 Neut # (Auto) 5.86 10^3/uL (1.8 -7.7) 12/20/20 03:18 Lymph # (Auto) 1.9 10^3/uL (0.8- 4.8) 12/20/20 03:18 Sac # (Auto) 0.6 10^3/uL (0.2- 0.9) 12/20/20 03:18 Eos # (Auto) 0.1 10^3/uL (0.0- 0.8) 12/20/20 03:18 Baso # (Auto) 0.1 10^3/uL (0.0- 0.1) 12/20/20 03:18 Nucleated RBC % (a uto) 0 % 12/20/20 03:18 Nucleated RBCs # 0.0 /100WBC 12/20/20 03:18 ESR 109 mm/hr (0-10) H 12/18/20 18:00 Sodium 139 mmol/L (136-1 45) 12/20/20 03:18 Potassium 4.9 mmol/L (3.5-5 .1) 12/20/20 03:18 Chloride 104 mmol/L (98-10 7) 12/20/20 03:18 Carbon Dioxide 23 mmol/L (22-29) 12/20/20 03:18 Anion Gap 16.9 (5-19) 12/20/20 03:18 BUN 26 mg/dL (8-23) H 12/20/20 03:18 Creatinine 1.6 mg/dL (0.7-1. 2) H 12/20/20 03:18 GFR Calculation 43.2 mL/min (90-1 30) L 12/20/20 03:18 Glucose 139 mg/dL (65-115 ) H 12/20/20 03:18 POC Glucose 210 mg/dL (70-110 ) H 12/20/20 20:10 Estimat Average Gl ucose 189 12/18/20 18:00 Hemoglobin A1c 8.2 % (4.0-6.0) H 12/18/20 18:00 Calculated Osmolal ity 295 mOsm/kg (285- 295) 12/20/20 03:18 Calcium 7.7 mg/dL (8.5-10 .5) L 12/20/20 03:18 Phosphorus 4.6 mg/dL (2.5-4. 5) H 12/20/20 03:18 Magnesium 2.1 mg/dL (1.7-2. 3) 12/20/20 03:18 Total Bilirubin 0.2 mg/dL (0.15-1 .2) 12/20/20 03:18 AST 18 U/L (0-40) 12/20/20 03:18 ALT 12 U/L (0-41) 12/20/20 03:18 Alkaline Phosphata se 112 IU/L (40-130) 12/20/20 03:18 Troponin T Gen 5 n g/L 76 ng/L (0-15) H 12/20/20 11:36 Troponin T Baselin e 85 ng/L (0-15) H 12/19/20 20:50 Troponin T 120 Min in[place] 86.58 ng/L (0-15) H 12/19/20 23:00 Delta Troponin T 1.58 ABS# (0-10) 12/19/20 23:00 Troponin T Hi Sens 6Hr 87.42 ng/L (0-15) H 12/20/20 03:18 Troponin T Hi Sens 6Hr Delta 2.42 ng/L (0-12) 12/20/20 03:18 C-Reactive Protein 136.4 mg/L (0.0-4 .9) H 12/18/20 18:00 NT-Pro-B Natriuret Pep 4701 pg/mL (0-125 ) H 12/18/20 18:00 Total Protein 5.1 g/dL (6.6-8.7 ) L 12/20/20 03:18 Albumin 3.0 g/dL (3.5-5.2 ) L 12/20/20 03:18 Globulin 2.1 g/dL (1.3-4.6 ) 12/20/20 03:18 Procalcitonin 0.20 ng/mL (0-0.5 ) 12/18/20 18:00 TSH 3.55 uIU/mL (0.27 -4.20) 12/18/20 18:00 Micro: Micro: Microbiology 12/18/20 18:12 Gram Stain - Final Toe - Abscess Abscess Culture - Preliminary Staphylococcus aureus 12/18/20 19:30 Blood Culture - Pr eliminary Blood NEGATIVE TO COLETTE E 12/18/20 19:36 Blood Culture - Pr eliminary Blood NEGATIVE TO COLETTE E Peripheral angiogram in March 2020 1. Complete occlusion origin RIGHT SFA with reconstitution near Neri's canal. 2. Continued multifocal areas of stenosis in the RIGHT popliteal artery with poor runoff to the ankle via all 3 arteries. 3. Multifocal areas of significant stenosis in the LEFT SFA and popliteal artery. 4. High-grade distal LEFT SFA stenosis, 87%. 5. High-grade stenosis, greater than 90% LEFT popliteal artery. EKG^: EKG 1: My Interpretation: The EKG from early this morning shows sinus rhythm with some nonspecific changes. No acute ST-T changes. A&P Assessment and plan (1) Atypical chest pain: Patient chest pain is atypical and chronic. Most likely the arrhythmia might be causing the pain. The elevated troponin T could be related to the tachyarrhythmic episode yesterday. The 2-hour and 6-hour delta is insignificant. At this point, I may focus on controlling the arrhythmia. Status: Acute (2) Atrial flutter: For better control of the arrhythmia, I may start her on metoprolol 25 mg p.o. twice daily. The Eliquis may be restarted after 24 hours, if okay with Dr. Moraes Status: Acute Qualifiers: Atrial flutter type: typical Qualified Code(s): I48.3 - Typical atrial flutter (3) Chronic ulcer of toe of right foot with fat layer exposed: Status post amputation of the right big toe. Management as per Dr. Moraes Status: Acute (4) Diabetes mellitus with peripheral vascular disease: Continue on the Plavix and aspirin at this point. Status: Acute (5) HTN (hypertension): Status: Acute Qualifiers: Hypertension type: essential hypertension Qualified Code(s): I10 - Essential (primary) hypertension (6) Peripheral arterial disease: Continue on the current medications. Status: Acute (7) Atherosclerosis of coronary artery: Since there is no significant EKG changes, I may hold off on any further cardiac work-up at this point. Status: Acute Qualifiers: Coronary Disease-Associated Artery/Lesion type: [place] artery [place] vs. transplanted heart: [place] heart Associated angina: with other forms of angina Qualified Code(s): I25.118 - Atherosclerotic heart disease of [place] coronary artery with other forms of angina pectoris (8) Ischemic cardiomyopathy: I may go ahead and do a repeat echocardiogram, to reevaluate the LV ejection fraction. Need to consider LifeVest, if the left ventricular ejection fraction is still depressed. Status: Acute Additional A&P Information No problems are Anemia Diabetic neuropathy Chronic kidney disease Based on the patient's clinical progress and the results of the above tests, further recommendations will be made. Thank you for the opportunity to evaluate this patient and make these recommendations Consult Attestations Medical Necessity Statement: Disposition as per the primary. 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 transplanted heart: [place] heart Associated angina: with other forms of angina Ischemic cardiomyopathy I25.5
[2020-12-20 20:14] LABS: Glucose Point of Care 210 mg/dL (70-110)
--- NOTE | 2020-12-20 20:33 | PC.NURSE ---
pt and are refusing the novolog insulin ac/hc.states pt is extremely sensitive to novolog insulin...and last vist to [facility]...his blood sugar kept bottoming out after receiving it.pt is accepting his lantus insulin.
--- NOTE | 2020-12-20 20:57 | PC.NURSE ---
received from operating room at 0840.sleepy but easily awakened.report received.sr on monitor.amioderone drip infusing at 0.5 mg/hr.right foot drsg dry and intact.vss.
--- NOTE | 2020-12-20 20:59 | PC.NURSE ---
cardizem po given as ordered at 0957.amioderone drip turned off per dr rosales at 1130.pt remains sr on monitor.
--- NOTE | 2020-12-20 21:02 | PC.NURSE ---
pt c/o chest discomfort at 11:00.described discomfort as an icy cold feeling in my left chest .nonradiating.pt slightly diaphoretic.pt is s/p stent 11/22.ekg obtained.sr on monitor.vss.dr rosales notified..and he ordered a troponin..which was obtained.discomfort dissipated with -in 10 min.
[2020-12-20] MEDS: metoprolol tartrate 25 mg Tablet PO (21:33)
[2020-12-20] MEDS: amitriptyline 25 mg Tablet PO (21:33)
--- NOTE | 2020-12-20 22:57 | PC.NURSE ---
Patient is currently resting with eyes closed. Will monitor.
[2020-12-21] VITALS (11 sets, daily range): BP systolic 105–154; BP diastolic 59–73; PULSE 77–86; RESP 14–23; TEMP 36.6–37; O2SAT 92–97
[2020-12-21] MEDS: dilTIAZem 30 mg Tablet PO ×2 (03:17→09:42)
[2020-12-21] MEDS: HYDROcodone-acetaminophen 5-325 mg Tablet 1 TAB PO ×2 (03:17→07:45)
[2020-12-21 03:41] LABS: Basophils # 0.1 10^3/uL (0.0-0.1); Basophils % 0.8 %; Eosinophils # 0.2 10^3/uL (0.0-0.8); Eosinophils % 2.4 %; Hematocrit 31.9 % (42.0-52.0); Lymphocytes # 2.2 10^3/uL (0.8-4.8); Lymphocytes % 21.8 %; Mean Corpuscular HGB Conc 31.3 g/dL (30.0-36.0); Mean Corpuscular Hemoglobin 29.6 pg (28.0-34.0); Mean Corpuscular Volume 94.4 fL (80-94); Mean Platelet Volume 8.8 fL (7.4-10.4); Monocytes # 0.7 10^3/uL (0.2-0.9); Monocytes % 6.8 %; Neutrophils # 6.74 10^3/uL (1.8-7.7); Neutrophils % 67.9 %; Nucleated Red Blood Cells % 0 %; Platelet Count 268 10^3/cmm (130-400); Red Blood Count 3.38 10^6/uL (4.1-5.3); Red Cell Distribution Width 11.6 % (12.1-15.1); White Blood Count 9.9 10^3/uL (4.0-10.0)
[2020-12-21 04:03] LABS: Alanine Aminotransferase 15 U/L (0-41); Albumin Level 2.8 g/dL (3.5-5.2); Alkaline Phosphatase 122 IU/L (40-130); Aspartate Amino Transferase 22 U/L (0-40); Blood Urea Nitrogen 26 mg/dL (8-23); Calcium 7.8 mg/dL (8.5-10.5); Carbon Dioxide 25 mmol/L (22-29); Chloride 105 mmol/L (98-107); Glomerular Filtration Rate 35.4 mL/min (90-130); Glucose 63 mg/dL (65-115); Magnesium 2.1 mg/dL (1.7-2.3); Osmolality Calculated 289 mOsm/kg (285-295); Phosphorus 4.6 mg/dL (2.5-4.5); Sodium 138 mmol/L (136-145); Total Bilirubin 0.2 mg/dL (0.15-1.2); Total Protein 5.8 g/dL (6.6-8.7)
--- NOTE | 2020-12-21 06:31 | P.PN_ITS ---
Subjective Subjective: Interval history: POD #1 status post amputation right second toe. Appreciate oversight and medical management of Dr. Leyva as a consultation from Dr. Louis. Further chest discomfort. Vital signs are stable. Postoperative discomfort is under good control. No further arrhythmias. Heart rate 84 and sinus this morning. Vitals/I&O/Wt Last Vital Signs Temp 97.9 F 12/21/20 03:40 Pulse 83 12/21/20 06:00 Resp 22 H 12/21/20 03:40 BP 135/73 12/21/20 03:40 Pulse Ox 92 12/21/20 03:40 12/20/20 12/20/20 12/21/20 14:59 22:59 06:59 Intake Total 758.000 / 758.000 888.5 / 1646.500 150 / 1796.500 Output Total 49 / 49 900 / 949 Balance 709.000 / 709.000 -11.5 / 697.500 150 / 847.500 Weight last 48 hrs Weight 205 lb Physical Exam Extremity: OTHER: Surgical dressing remains in place. I would leave in position for another 24 hours. Data : 12/21/20 03:10 12/21/20 03:10 Micro: Microbiology 12/18/20 18:12 Gram Stain - Final Toe - Abscess Abscess Culture - Preliminary Staphylococcus aureus A&P Assessment and plan (1) Status post amputation of toe of right foot: POD #1 status post amputation of right second toe. May resume Eliquis at discretion of Dr. Leyva and Dr. Louis. May follow-up in wound care services at discharge. If Mr. Alvarez remains hospitalized for another day I will remove bandage tomorrow. 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
[2020-12-21 07:05] LABS: Glucose Point of Care 69 mg/dL (70-110)
[2020-12-21] MEDS: enoxaparin 100 mg/mL Syringe 90 MG SUBCUT (07:46)
[2020-12-21] MEDS: metoprolol tartrate 25 mg Tablet PO (09:38)
[2020-12-21] MEDS: famotidine 20 mg Tablet PO ×2 (09:40→18:50)
[2020-12-21] MEDS: clopidogrel 75 mg Tablet PO (09:40)
[2020-12-21] MEDS: aspirin 81 mg EC Tablet PO (09:41)
[2020-12-21] MEDS: levothyroxine 100 mcg Tablet PO (09:42)
[2020-12-21 09:53] LABS: Glucose Point of Care 129 mg/dL (70-110)
--- NOTE | 2020-12-21 10:06 | PC.SOCIAL ---
*IMM UPDATE* Gave patient IMM update with at bedside. Provided copy of pg 2. Verbalized understanding. 12/21/20 @ 9893 Initialed, dated, timed and placed in chart.
[2020-12-21 11:34] LABS: Glucose Point of Care 129 mg/dL (70-110)
[2020-12-21] MEDS: sodium chloride 0.9% 1,000 ML 75 ML IV (12:02)
--- NOTE | 2020-12-21 12:32 | P.PN_ITS ---
Subjective Subjective: Interval history: Patient was seen this morning, is at bedside, no fevers overnight, no nausea, no vomiting, he does tell me that his right hip is bothering him, but the [place] is helping, denies any chest pain this morning, no palpitations, no shortness of breath Vitals/I&O/Wt Last Vital Signs Temp 97.9 F 12/21/20 03:40 Pulse 83 12/21/20 06:00 Resp 22 H 12/21/20 03:40 BP 105/59 12/21/20 11:35 Pulse Ox 92 12/21/20 03:40 12/20/20 12/21/20 12/21/20 22:59 06:59 14:59 Intake Total 888.5 / 1646.500 150 / 1796.500 Output Total 900 / 949 Balance -11.5 / 697.500 150 / 847.500 Physical Exam Const: COMMON NORMALS: no acute distress Resp: COMMON NORMALS: normal respiratory effort, No retractions, No use of accessory muscles and clear to auscultation bilaterally AUSCULTATION: clear to auscultation bilaterally Cardio: COMMON NORMALS: regular rate, regular rhythm, S1 normal heart sound present, S2 normal heart sound present and No murmurs present (Cardio) RATE: regular rate RHYTHM: regular rhythm HEART SOUNDS: S1 normal heart sound present and S2 normal heart sound present GI: COMMON NORMALS: Normal to inspection, nondistended, normoactive bowel sounds present, Soft to palpation and non-tender PALPATION: Yes Soft to palpation Extremity: NARRATIVE EXTREMITY EXAM: Right lower extremity wrapped and bandaged Data : 12/21/20 03:10 12/21/20 03:10 Micro: Microbiology 12/18/20 18:12 Gram Stain - Final Toe - Abscess Abscess Culture - Preliminary Staphylococcus aureus A&P Assessment and plan (1) Diabetic ulcer of right foot: Right foot, second digit, dusky in appearance, gangrenous, with surrounding cellulitis Status post amputation of right second toe Admitted to [facility] Blood cultures and wound cultures so far show staph. ESR 109 CT scan shows osteomyelitis in the right second distal phalanx Stop vancomycin due to elevated Vanco troughs, and creatinine up to 1.9, switch to Zyvox, stop Levaquin, switch to p.o. ciprofloxacin Monitor clinical status, monitor clinical progress Continue aspirin, Plavix, therapeutic Lovenox for peripheral arterial disease and atrial flutter Dr. Moraes to see patient Full code Lovenox for DVT prophylaxis Status: Acute (2) Atherosclerosis of coronary artery: , Continue aspirin, Plavix Status: Acute Qualifiers: Coronary Disease-Associated Artery/Lesion type: [place] artery [place] vs. transplanted heart: [place] heart Associated angina: with other forms of angina Qualified Code(s): I25.118 - Atherosclerotic heart disease of [place] coronary artery with other forms of angina pectoris (3) Diabetes mellitus with chronic kidney disease: Continue Levemir 30 units every morning, with insulin sliding scale Status: Acute (4) Hyperlipidemia: Status: Acute Qualifiers: Hyperlipidemia type: mixed hyperlipidemia Qualified Code(s): E78.2 - Mixed hyperlipidemia (5) Diabetes mellitus with peripheral vascular disease: Status: Acute (6) History of diabetic retinopathy: Status: Acute (7) Diabetic neuropathy: Status: Acute (8) Peripheral neuropathy: Status: Acute (9) Diabetic peripheral neuropathy associated with type 2 diabetes mellitus: Status: Acute (10) HTN (hypertension): Status: Acute Qualifiers: Hypertension type: essential hypertension Qualified Code(s): I10 - Essential (primary) hypertension (11) Atrial flutter: -Patient does report intermittent fluttering of his chest -Required amiodarone drip, currently off -On normal sinus rhythm -Continue Cardizem -Troponins as high as 87.42, 6-hour delta 2.42 -EKG no acute ST-T wave changes -Monitor for chest pain, monitor telemetry, monitor EKGs, monitor troponins -Cardiac echocardiogram shows Diffuse hypokinesia of the left ventricle with ejection fraction of around 40 to 45%. Grade I/IV diastolic dysfunction (abnormal relaxation filling pattern), normal to mildly elevated filling pressures. Technically difficult study because of the poor ultrasonic window. Thickened mitral valve. Moderate mitral annular calcification. Features of of aortic valve sclerosis No significant regurgitant lesions, based on the color flow examination Technically difficult study because of the poor ultrasonic window. Comparison with the previous study is difficult because of the difference in the technical quality. -Recently patient had stent placement RCA, in November 2020 -We will transition to Eliquis, but therapeutic Lovenox for now Status: Acute Qualifiers: Atrial flutter type: typical Qualified Code(s): I48.3 - Typical atrial flutter (12) Atypical chest pain: -EKG does not show any acute ST-T wave changes, troponin 87.42, delta 2.42, no active chest pain, on aspirin, Plavix, therapeutic Lovenox, echocardio gram as above, cardiology on consult Status: Acute (13) SALLY (acute kidney injury): -Creatinine up to 1.9, then trough was 25, likely component of dehydration, vancomycin toxicity -Hold nephrotoxic agents -Monitor creatinine, monitor urine output -Receiving IV fluids at 75 cc an hour Status: Acute Additional A&P Information Hypothyroidism, continue levothyroxine Plan for today, continue wound care, continue antibiotics, start fluids, await cardiology recommendation, likely discharge in the next 24 hours Attestations Medical Necessity Statement*: Patient requires hospitalization for SALLY, a typical chest pain, right lower extremity cellulitis with osteomyelitis, atrial flutter Coding Level of Care Code Acute Shotblast Equipment Operator for g Fwd Diagnoses Diabetic ulcer of right foot E11.621; L97.519 Atherosclerosis of coronary artery I25.118 Coronary Disease-Associated Artery/Lesion type: [place] artery [place] vs. transplanted heart: [place] heart Associated angina: with other forms of angina Diabetes mellitus with chronic kidney disease E11.22 Hyperlipidemia E78.2 Hyperlipidemia type: mixed hyperlipidemia Diabetes mellitus with peripheral vascular disease E11.51 History of diabetic retinopathy Z86.39 Diabetic neuropathy E11.40 Peripheral neuropathy G62.9 Diabetic peripheral neuropathy associated with type 2 diabetes mellitus E11.42 HTN (hypertension) I10 Hypertension type: essential hypertension Atrial flutter I48.3 Atrial flutter type: typical Atypical chest pain R07.89 SALLY (acute kidney injury) N17.9
[2020-12-21] MEDS: ondansetron 2 mg/ML SDV 2 mL 4 MG IVP (13:50)
[2020-12-21] MEDS: linezolid premix 600 MG/300 ML PREMIX 300 MG IV (13:59)
--- NOTE | 2020-12-21 16:06 | PM.PN ---
Subjective Subjective: Interval history: Patient is feeling well. Post procedure he went into atrial flutter with RVR. No chest pain. Medications: Reviewed: Yes Vitals/I&O/Wt Last Vital Signs Temp 97.8 F 12/21/20 15:58 Pulse 78 12/21/20 15:58 Resp 14 12/21/20 15:58 BP 135/62 12/21/20 15:58 Pulse Ox 97 12/21/20 15:58 12/21/20 12/21/20 12/21/20 06:59 14:59 22:59 Intake Total 150 / 1796.500 350 / 350 Balance 150 / 847.500 350 / 350 Data : 12/21/20 03:10 12/21/20 03:10 Micro: Microbiology 12/18/20 18:12 Gram Stain - Final Toe - Abscess Abscess Culture - Preliminary Staphylococcus aureus A&P Assessment and plan (1) Atypical chest pain: Likely in setting of atrial flutter with RVR. Status: Acute (2) Atrial flutter: Paroxysmal atrial flutter currently in sinus rhythm. -Stop Cardizem and increase metoprolol tartrate to 50 mg twice a day. -Transition to Eliquis 5 mg twice a day. -On discharge will change metoprolol tartrate to his home dose of Coreg 6.25 mg twice a day Status: Acute Qualifiers: Atrial flutter type: typical Qualified Code(s): I48.3 - Typical atrial flutter (3) Atherosclerosis of coronary artery: S/p drug-eluting stent placement to mid LAD on 05 November 2020. -Stop aspirin and continue with Plavix and Eliquis. Status: Acute Qualifiers: Associated angina: with other forms of angina Coronary Disease-Associated Artery/Lesion type: [place] artery [place] vs. transplanted heart: [place] heart Qualified Code(s): I25.118 - Atherosclerotic heart disease of [place] coronary artery with other forms of angina pectoris (4) Ischemic cardiomyopathy: Heart failure with improved ejection fraction: recent echocardiogram on December 22 with LV ejection fraction of 40 to 45%. Status: Acute (5) Diabetic ulcer of right foot: Postop day #1 s/p amputation of right second toe. -CT scan showed osteomyelitis in right second distal phalanx. -On antibiotics as per primary team. Status: Acute (6) SALLY (acute kidney injury): BUN 26 and creatinine 1.9. Status: Acute (7) Diabetes mellitus with peripheral vascular disease: Status: Acute (8) HTN (hypertension): Fairly controlled. Status: Acute Qualifiers: Hypertension type: essential hypertension Qualified Code(s): I10 - Essential (primary) hypertension (9) Peripheral arterial disease: S/p balloon angioplasty of the occluded right SFA from ostium to popliteal artery. -He is to be scheduled for peripheral angiogram and left lower extremity as an outpatient. Status: Acute Attestations Medical Necessity Statement*: As per primary team. Time Spent in Patient Care: 16 - 35 minutes (>than 50% of time spent in counselling and/or direct pt care on unit). Coding Level of Care Code Acute Php Architect for Abdirizak Zhou Diagnoses Atypical chest pain R07.89 Atrial flutter I48.3 Atrial flutter type: typical Atherosclerosis of coronary artery I25.118 Associated angina: with other forms of angina Coronary Disease-Associated Artery/Lesion type: [place] artery [place] vs. transplanted heart: [place] heart Ischemic cardiomyopathy I25.5 Diabetic ulcer of right foot E11.621; L97.519 SALLY (acute kidney injury) N17.9 Diabetes mellitus with peripheral vascular disease E11.51 HTN (hypertension) I10 Hypertension type: essential hypertension Peripheral arterial disease I73.9
[2020-12-21 16:39] LABS: Glucose Point of Care 156 mg/dL (70-110)
[2020-12-21] MEDS: ciprofloxacin 500 mg Tablet 250 MG PO (18:48)
[2020-12-21 20:13] LABS: Glucose Point of Care 114 mg/dL (70-110)
[2020-12-21] MEDS: apixaban 5 mg Tablet PO (21:31)
[2020-12-21] MEDS: metoprolol tartrate 50 mg Tablet PO (21:31)
--- NOTE | 2020-12-21 22:46 | PC.NURSE ---
AO x4, follows commands, denies pain and SOB, C/O slight nausea but denied need for medication, supine 30 degrees call light within reach
[2020-12-22] VITALS (7 sets, daily range): BP systolic 136–162; BP diastolic 72–79; PULSE 78–84; RESP 17–24; TEMP 36.8–36.9; O2SAT 94–99
[2020-12-22] MEDS: linezolid premix 600 MG/300 ML PREMIX 300 MG IV (01:28)
[2020-12-22] MEDS: sodium chloride 0.9% 1,000 ML 75 ML IV (01:35)
[2020-12-22 03:54] LABS: Basophils # 0.1 10^3/uL (0.0-0.1); Basophils % 0.6 %; Eosinophils # 0.3 10^3/uL (0.0-0.8); Eosinophils % 2.7 %; Hematocrit 30.9 % (42.0-52.0); Hemoglobin 9.8 g/dL (11.7-16.6); Lymphocytes # 1.7 10^3/uL (0.8-4.8); Lymphocytes % 18.3 %; Mean Corpuscular HGB Conc 31.7 g/dL (30.0-36.0); Mean Corpuscular Volume 94.5 fL (80-94); Mean Platelet Volume 8.8 fL (7.4-10.4); Monocytes # 0.6 10^3/uL (0.2-0.9); Monocytes % 5.8 %; Neutrophils # 6.89 10^3/uL (1.8-7.7); Neutrophils % 72.4 %; Nucleated Red Blood Cells % 0 %; Platelet Count 244 10^3/cmm (130-400); Red Blood Count 3.27 10^6/uL (4.1-5.3); Red Cell Distribution Width 11.7 % (12.1-15.1); White Blood Count 9.5 10^3/uL (4.0-10.0)
[2020-12-22 04:23] LABS: Alanine Aminotransferase 14 U/L (0-41); Albumin Level 2.7 g/dL (3.5-5.2); Alkaline Phosphatase 128 IU/L (40-130); Anion Gap 13.6 (5-19); Aspartate Amino Transferase 16 U/L (0-40); Blood Urea Nitrogen 24 mg/dL (8-23); Calcium 7.6 mg/dL (8.5-10.5); Carbon Dioxide 22 mmol/L (22-29); Chloride 108 mmol/L (98-107); Globulin 2.9 g/dL (1.3-4.6); Glomerular Filtration Rate 46.5 mL/min (90-130); Glucose 90 mg/dL (65-115); Osmolality Calculated 292 mOsm/kg (285-295); Phosphorus 3.8 mg/dL (2.5-4.5); Potassium 4.6 mmol/L (3.5-5.1); Sodium 139 mmol/L (136-145); Total Bilirubin 0.2 mg/dL (0.15-1.2); Total Protein 5.6 g/dL (6.6-8.7)
[2020-12-22] MEDS: ciprofloxacin 500 mg Tablet 250 MG PO (05:51)
--- NOTE | 2020-12-22 06:22 | PC.NURSE ---
uneventful night, AO x4, no complaints throughout shift, supine 45 degrees call light within reach
[2020-12-22 06:36] LABS: Glucose Point of Care 86 mg/dL (70-110)
--- NOTE | 2020-12-22 07:46 | P.PN_ITS ---
Subjective Subjective: Interval history: Rested fairly well last night. Complaining of fatigue but no chest discomfort. Dressing change to right foot. Vitals/I&O/Wt Last Vital Signs Temp 98.5 F 12/22/20 07:23 Pulse 84 12/22/20 07:23 Resp 17 12/22/20 07:23 BP 152/73 12/22/20 07:23 Pulse Ox 98 12/22/20 07:23 12/21/20 12/22/20 12/22/20 22:59 06:59 14:59 Intake Total 300 / 650 1000 / 1650 Output Total 300 / 300 750 / 1050 Balance 0 / 350 250 / 600 Physical Exam Extremity: OTHER: Right second toe amputation site incision line is clean and intact. Incision painted with Betadine and Hydrofera Blue applied to it as well as the small wound on the right great toe. I recommended dressing changes daily. Data : 12/22/20 03:20 12/22/20 03:20 Micro: Microbiology 12/18/20 18:12 Gram Stain - Final Toe - Abscess Abscess Culture - Preliminary Staphylococcus aureus A&P Assessment and plan (1) Status post amputation of toe of right foot: Postop day #2. Plan: Follow-up with wound care services after discharge. Continue Betadine to the incision line and Hydrofera Blue to both it and the wound on the right great toe. Dressing changes to be performed daily. Greatly appreciate the expertise of our hospitalist and cardiology colleagues. Status: Acute Attestations 2 Medical Necessity Statement*: Status post right second toe amputation secondary to gangrene Time Spent in Patient Care: 16 - 35 minutes Coding Level of Care Code Acute Customer Account Coordinator for Abdirizak Fwwilber Diagnoses Status post amputation of toe of right foot Z89.421
[2020-12-22] MEDS: metoclopramide 5 mg/mL SDV 2 mL IVP (08:19)
[2020-12-22] MEDS: losartan 50 mg Tablet 100 MG PO (08:48)
[2020-12-22] MEDS: levothyroxine 100 mcg Tablet PO (08:48)
[2020-12-22] MEDS: apixaban 5 mg Tablet PO (08:49)
[2020-12-22] MEDS: famotidine 20 mg Tablet PO (08:49)
[2020-12-22] MEDS: metoprolol tartrate 50 mg Tablet PO (08:49)
[2020-12-22] MEDS: clopidogrel 75 mg Tablet PO (08:49)
[2020-12-22] MEDS: meclizine 25 mg tablet PO (10:28)
[2020-12-22 11:39] LABS: Glucose Point of Care 90 mg/dL (70-110)
--- NOTE | 2020-12-22 11:58 | P.PN_ITS ---
Subjective Subjective: Interval history: Patient is feeling well. Post procedure he went into atrial flutter with RVR. No chest pain. Overnight, he was in flutter with RVR for ~ 25-30 minutes. Medications: Reviewed: Yes Vitals/I&O/Wt Last Vital Signs Temp 98.5 F 12/22/20 07:23 Pulse 84 12/22/20 07:23 Resp 17 12/22/20 07:23 BP 162/74 12/22/20 08:48 Pulse Ox 98 12/22/20 07:23 12/21/20 12/22/20 12/22/20 22:59 06:59 14:59 Intake Total 300 / 650 1000 / 1650 120 / 120 Output Total 300 / 300 750 / 1050 Balance 0 / 350 250 / 600 120 / 120 Physical Exam Narrative: EXAM NARRATIVE: Gen: NAD, laying comfortably in bed. HEENT/Neck: PEERL, No JVD RS: CTAB/L, NO wheezing, rales or rhonchi CVS: S1, S2, normal , No murmur, rub or gallop INFORMATION SECURITY: AAOx 3, No DND Ext: Right foot dressed, No edema, No cyanosis. Psych: Normal mood and appropriate affect Data : 12/22/20 03:20 12/22/20 03:20 Micro: Microbiology 12/18/20 18:12 Gram Stain - Final Toe - Abscess Abscess Culture - Preliminary Staphylococcus aureus A&P Assessment and plan (1) Atypical chest pain: Likely in setting of atrial flutter with RVR. -resolved -No further w/u warranted. Status: Acute (2) Atrial flutter: Paroxysmal atrial flutter currently in sinus rhythm. -On metoprolol tartrate 50 mg twice a day. -Transition to Eliquis 5 mg twice a day. -On discharge will change metoprolol tartrate to his home dose of Coreg 6.25 mg twice a day -start on amiodarone 200 mg twice a day x 3 weeks and then 200 mg daily. -May be discharged today with follow up in [facility] in 2 weeks. Status: Acute Qualifiers: Atrial flutter type: typical Qualified Code(s): I48.3 - Typical atrial flutter (3) Atherosclerosis of coronary artery: S/p drug-eluting stent placement to mid LAD on 05 November 2020. -Stop aspirin and continue with Plavix and Eliquis. Status: Acute Qualifiers: Associated angina: with other forms of angina Coronary Disease- Associated Artery/Lesion type: [place] artery [place] vs. transplanted heart: [place] heart Qualified Code(s): I25.118 - Atherosclerotic heart disease of [place] coronary artery with other forms of angina pectoris (4) Ischemic cardiomyopathy: Heart failure with improved ejection fraction: recent echocardiogram on December 22 with LV ejection fraction of 40 to 45%. -continue coreg and losartan. Status: Acute (5) Diabetic ulcer of right foot: Postop day #2 s/p amputation of right second toe by Dr. Moraes. -CT scan showed osteomyelitis in right second distal phalanx. -On antibiotics as per primary team. Status: Acute (6) SALLY (acute kidney injury): BUN 26 and creatinine 1.9-->1.5. Status: Acute (7) Diabetes mellitus with peripheral vascular disease: Status: Acute (8) HTN (hypertension): Fairly controlled. Status: Acute Qualifiers: Hypertension type: essential hypertension Qualified Code(s): I10 - Essential (primary) hypertension (9) Peripheral arterial disease: S/p balloon angioplasty of the occluded right SFA from ostium to popliteal artery. -He is to be scheduled for peripheral angiogram and left lower extremity as an outpatient. Status: Acute Attestations Medical Necessity Statement*: As per primary team Time Spent in Patient Care: 16 - 35 minutes (>than 50% of time spent in counselling and/or direct pt care on unit) . Coding Level of Care Code Acute Lusterer for [facility] Fwd Diagnoses Atypical chest pain R07.89 Atrial flutter I48.3 Atrial flutter type: typical Atherosclerosis of coronary artery I25.118 Associated angina: with other forms of angina Coronary Disease-Associated Artery/Lesion type: [place] artery [place] vs. transplanted heart: [place] heart Ischemic cardiomyopathy I25.5 Diabetic ulcer of right foot E11.621; L97.519 SALLY (acute kidney injury) N17.9 Diabetes mellitus with peripheral vascular disease E11.51 HTN (hypertension) I10 Hypertension type: essential hypertension Peripheral arterial disease I73.9
--- NOTE | 2020-12-22 12:11 | PC.CHAP ---
Pastoral Care Encounter/Spiritual Assessment Type of Contact [] Declined launching pad mechanic visit [] Patient/Family/Request visit [] Outpatient visit [xx] Follow-up visit [] Physician referral [] Code/Alert [xx] Routine visit [] Staff referral [] Actively dying [] Patient sleeping [] Family support [] [] Out of room [] Palliative care [] [] Receiving care in room [] Pre-surgical visit [] Trauma [] Long length of stay [] ICU visit [] Other: Relational/Emotional Strength [xx] Patient feels connected with others/family/visitors/staff [] Distress [] Loneliness/isolation [] Abandonment Spirituality of Patient [xx] Person of Maryann [xx] Attends Catholic of their Maryann [xx] Believes in Prayer [xx] Reads Bible or Hinduism materials [] There are Spiritual issues to be addressed Paper Twister Tender Interventions [xx] Prayer [xx] Active listening [xx] Non-anxious presence [] Spiritual/emotional support [] Crisis/trauma care [] Spiritual counseling [] Bereavement support [] Provided bereavement packet [] Provided Bible/devotional materials [] Provided toy/stuffed animal, coloring book to patient or family member [] Provided Communion [] Anointing/[place] [] Salvation [xx] Completed spiritual assessment [] Other: Impact on Illness or Injury [] Angry [] Fearful [] Anxious [] Often cries [] Exhaustion [] Unable to work [] Unable to attend uatsdin [] Unable to walk/stand [] Unable to read [] Unable to drive [] Unable to eat/drink [] Unable to sleep [] Unable to be with family [] Patient intubated [] Other: Summary present. Patient doing better and hopes to be discharged by end of day. Time spent with patient 6 minutes
--- NOTE | 2020-12-22 12:20 | PM.PN ---
Subjective Subjective: Interval history: Patient was seen this morning, no chest pain overnight, no fevers overnight, it was difficult for him to work with physical therapy, as he is not able to bear weight in his forefoot, he is having episodes of significant nausea, overnight, and into this morning, cannot keep down liquids, he had his dressing changed by Dr. Moraes, continues to feel weak, nauseous, no signs of bleeding from his surgical site Vitals/I&O/Wt Last Vital Signs Temp 98.5 F 12/22/20 07:23 Pulse 84 12/22/20 07:23 Resp 17 12/22/20 07:23 BP 162/74 12/22/20 08:48 Pulse Ox 98 12/22/20 07:23 12/21/20 12/22/20 12/22/20 22:59 06:59 14:59 Intake Total 300 / 650 1000 / 1650 120 / 120 Output Total 300 / 300 750 / 1050 Balance 0 / 350 250 / 600 120 / 120 Physical Exam Const: COMMON NORMALS: no acute distress and patient oriented x3 HENMT: COMMON NORMALS: normocephalic HEAD & SCALP: normocephalic Neck/C-Spine: COMMON NORMALS: no JVD Resp: COMMON NORMALS: normal respiratory effort, No retractions, No use of accessory muscles and clear to auscultation bilaterally AUSCULTATION: clear to auscultation bilaterally Cardio: COMMON NORMALS: no JVD, regular rate, regular rhythm, S1 normal heart sound present and S2 normal heart sound present RATE: regular rate RHYTHM: regular rhythm HEART SOUNDS: S1 normal heart sound present and S2 normal heart sound present GI: COMMON NORMALS: Normal to inspection, nondistended, normoactive bowel sounds present, Soft to palpation, non-tender, No hepatosplenomegaly present, no masses and no bruits PALPATION: Yes Soft to palpation and Yes No hepatosplenomegaly present Extremity: NARRATIVE EXTREMITY EXAM: Surgical site is wrapped and bandaged Neuro: COMMON NORMALS: patient oriented x3 Psych: COMMON NORMALS: mental status grossly normal Data : 12/22/20 03:20 12/22/20 03:20 Micro: Microbiology 12/18/20 18:12 Gram Stain - Final Toe - Abscess Abscess Culture - Preliminary Staphylococcus aureus A&P Assessment and plan (1) Diabetic ulcer of right foot: Right foot, second digit, dusky in appearance, gangrenous, with surrounding cellulitis Status post amputation of right second toe Admitted to [facility] Blood cultures and wound cultures so far show staph. ESR 109 CT scan shows osteomyelitis in the right second distal phalanx Stop vancomycin due to elevated Vanco troughs, and creatinine up to 1.9, stop Zyvox due to nausea and vomiting, stop Levaquin, switch to p.o. ciprofloxacin and doxycycline Monitor clinical status, monitor clinical progress Continue Plavix, Eliquis for peripheral arterial disease and atrial flutter Dr. Moraes to see patient Full code Eliquis for DVT prophylaxis PT OT, nonweightbearing forefoot Plan for today, nausea control, with met Reglan, Zofran, promethazine, continue PT OT Status: Acute (2) Atherosclerosis of coronary artery: , Continue aspirin, Plavix Status: Acute Qualifiers: Coronary Disease-Associated Artery/Lesion type: [place] artery [place] vs. transplanted heart: [place] heart Associated angina: with other forms of angina Qualified Code(s): I25.118 - Atherosclerotic heart disease of [place] coronary artery with other forms of angina pectoris (3) Diabetes mellitus with chronic kidney disease: Continue Levemir 30 units every morning, with insulin sliding scale Status: Acute (4) Hyperlipidemia: Status: Acute Qualifiers: Hyperlipidemia type: mixed hyperlipidemia Qualified Code(s): E78.2 - Mixed hyperlipidemia (5) Diabetes mellitus with peripheral vascular disease: Status: Acute (6) History of diabetic retinopathy: Status: Acute (7) Diabetic neuropathy: Status: Acute (8) Peripheral neuropathy: Status: Acute (9) Diabetic peripheral neuropathy associated with type 2 diabetes mellitus: Status: Acute (10) HTN (hypertension): Status: Acute Qualifiers: Hypertension type: essential hypertension Qualified Code(s): I10 - Essential (primary) hypertension (11) Atrial flutter: -Patient does report intermittent fluttering of his chest -Required amiodarone drip, currently off -In normal sinus rhythm -On metoprolol -Troponins as high as 87.42, 6-hour delta 2.42 -EKG no acute ST-T wave changes -Monitor for chest pain, monitor telemetry, monitor EKGs, monitor troponins -Cardiac echocardiogram shows Diffuse hypokinesia of the left ventricle with ejection fraction of around 40 to 45%. Grade I/IV diastolic dysfunction (abnormal relaxation filling pattern), normal to mildly elevated filling pressures. Technically difficult study because of the poor ultrasonic window. Thickened mitral valve. Moderate mitral annular calcification. Features of of aortic valve sclerosis No significant regurgitant lesions, based on the color flow examination Technically difficult study because of the poor ultrasonic window. Comparison with the previous study is difficult because of the difference in the technical quality. -Recently patient had stent placement RCA, in November 2020 -We will transition to Eliquis, but therapeutic Lovenox for now Status: Acute Qualifiers: Atrial flutter type: typical Qualified Code(s): I48.3 - Typical atrial flutter (12) Atypical chest pain: -EKG does not show any acute ST-T wave changes, troponin 87.42, delta 2.42, no active chest pain, on aspirin, Plavix, therapeutic Lovenox, echocardiogram as above, cardiology on consult Status: Acute (13) SALLY (acute kidney injury): -Creatinine up to 1.5, then vancomycin trough was 25, likely component of dehydration, vancomycin toxicity -Hold nephrotoxic agents -Monitor creatinine, monitor urine output -Hold fluids Status: Acute Additional A&P Information Hypothyroidism, continue levothyroxine Plan for today, continue wound care, continue antibiotics, nausea control, physical therapy, hopefully discharge in the next 12 to 24 hours Attestations Medical Necessity Statement*: Patient requires hospitalization for diabetic ulcer right foot, atrial flutter, SALLY, chest pain, severe nausea vomiting Coding Level of Care Code Acute [place] Filter Operator for Chg Fwd Diagnoses Diabetic ulcer of right foot E11.621; L97.519 Atherosclerosis of coronary artery I25.118 Coronary Disease-Associated Artery/Lesion type: [place] artery [place] vs. transplanted heart: [place] heart Associated angina: with other forms of angina Diabetes mellitus with chronic kidney disease E11.22 Hyperlipidemia E78.2 Hyperlipidemia type: mixed hyperlipidemia Diabetes mellitus with peripheral vascular disease E11.51 History of diabetic retinopathy Z86.39 Diabetic neuropathy E11.40 Peripheral neuropathy G62.9 Diabetic peripheral neuropathy associated with type 2 diabetes mellitus E11.42 HTN (hypertension) I10 Hypertension type: essential hypertension Atrial flutter I48.3 Atrial flutter type: typical Atypical chest pain R07.89 SALLY (acute kidney injury) N17.9
--- NOTE | 2020-12-22 14:09 | P.DS_ITS ---
Discharge Providers Date of Admission: 12/18/20 16:56 Date of Discharge: December 22, 2020 Attending Provider at Admission: Vitaly Leyva MD Attending Provider at Discharge: Vitaly Leyva MD Primary Care Provider: Beatriz Brady Diagnoses at Discharge Discharge Diagnosis (1) Atypical chest pain: Status: Acute (2) Atrial flutter: Status: Acute Qualifiers: Atrial flutter type: typical Qualified Code(s): I48.3 - Typical atrial flutter (3) Atherosclerosis of coronary artery: Status: Acute Qualifiers: Associated angina: with other forms of angina Coronary Disease- Associated Artery/Lesion type: [place] artery [place] vs. transplanted heart: [place] heart Qualified Code(s): I25.118 - Atherosclerotic heart disease of [place] coronary artery with other forms of angina pectoris (4) Ischemic cardiomyopathy: Status: Acute (5) Diabetic ulcer of right foot: Status: Acute (6) SALLY (acute kidney injury): Status: Acute (7) Diabetes mellitus with peripheral vascular disease: Status: Acute (8) HTN (hypertension): Status: Acute Qualifiers: Hypertension type: essential hypertension Qualified Code(s): I10 - Essential (primary) hypertension (9) Peripheral arterial disease: Status: Acute Reason for Visit Reason for Visit: cellulitis left foot Hospital Course Hospital Course This is a 70-year-old male with a past medical history of CAD status post stenting to RCA a few months ago on aspirin, Plavix, ischemic cardiomyopathy, history of chronic diabetic ulcers of the right foot, type 2 diabetes mellitus insulin-dependent, hypertension, epilepsy medical for arterial disease, who presents [facility] due to concerns for worsening diabetic ulcer right foot with gangrene Patient was admitted to [facility] for right foot diabetic ulcer, has already finished 6 weeks of IV antibiotics for osteomyelitis of the right foot, this time had second digit, with gangrene, osteomyelitis, received IV antibiotics, status post amputation by Dr. Moraes, tolerated surgery well, culture showed staph aureus, discharged on 10 remaining days of doxycycline and ciprofloxacin, wound care, follow-up with wound center next week, weightbearing as tolerated, nonweightbearing in the forefoot, home health care, walker, wheelchair, bedside commode Patient also developed atrial flutter during his hospitalization, converted to normal sinus rhythm after amiodarone drip, discharged on Coreg 6.25 twice daily, amiodarone 200 mg twice daily for 3 weeks followed by 200 mg daily, with Eliquis 5 mg twice daily follow-up with cardiology 1 week, follow-up with general physician in a few weeks for recheck CBC, monitor for bloody or black stools if so go to the emergency room He also had atypical chest pain during his hospitalization, managed with Plavix, and Eliquis On discharge aspirin was stopped, continue Plavix, Eliquis Has ischemic cardiomyopathy, echocardiogram showed EF of 40 to 45%, continue Coreg, losartan Has peripheral arterial disease, follow-up as outpatient for angiogram of left lower extremity Physical Exam Const: COMMON NORMALS: no acute distress and patient oriented x3 Resp: COMMON NORMALS: normal respiratory effort, No retractions, No use of accessory muscles and clear to auscultation bilaterally AUSCULTATION: clear to auscultation bilaterally Cardio: COMMON NORMALS: regular rate, regular rhythm, S1 normal heart sound present and S2 normal heart sound present RATE: regular rate RHYTHM: regular rhythm HEART SOUNDS: S1 normal heart sound present and S2 normal heart sound present GI: COMMON NORMALS: Normal to inspection, nondistended, normoactive bowel sounds present, Soft to palpation and No hepatosplenomegaly present PALPATION: Yes Soft to palpation and Yes No hepatosplenomegaly present Extremity: NARRATIVE EXTREMITY EXAM: Surgical site is wrapped and bandaged Neuro: COMMON NORMALS: patient oriented x3 Discharge Data Data Completed and Pending: Completed Studies During Hospitalization Category Date Time Status CT foot RT wo con * [id number] Routine Cat Scan 12/18/20 17:35 Completed Pathology: Surgic al [PTH] Routine Pth 12/20/20 08:09 Completed CV echo complete* [id number] Routine Ultrasound 12/20/20 08:50 Completed Pending at discharge Category Date Time Status Abscess Culture a nd Gram Stain Stat Lab 12/18/20 18:12 Results Blood Culture Rou zak Lab 12/18/20 19:30 Results Vancomycin Trough Timed Lab 12/23/20 12:00 Ordered Labs from last 24 hours 12/22/20 12/22/20 12/22/20 11:34 06:30 03:20 WBC RBC Hgb Hct MCV MCH MCHC RDW Plt Count MPV Neut % (Auto) Lymph % (Auto) [place] % (Auto) Eos % (Auto) Baso % (Auto) Neut # (Auto) Lymph # (Auto) [place] # (Auto) Eos # (Auto) Baso # (Auto) Nucleated RBC % (a uto) Nucleated RBCs # Sodium 139 Potassium 4.6 Chloride 108 H Carbon Dioxide 22 Anion Gap 13.6 BUN 24 H Creatinine 1.5 H GFR Calculation 46.5 L Glucose 90 POC Glucose 90 86 Calculated Osmolal ity 292 Calcium 7.6 L Phosphorus 3.8 Magnesium 2.0 Total Bilirubin 0.2 AST 16 ALT 14 Alkaline Phosphata se 128 Total Protein 5.6 L Albumin 2.7 L Globulin 2.9 12/22/20 12/21/20 12/21/20 03:20 20:05 16:36 WBC 9.5 RBC 3.27 L Hgb 9.8 L Hct 30.9 L MCV 94.5 H MCH 30.0 MCHC 31.7 RDW 11.7 L Plt Count 244 MPV 8.8 Neut % (Auto) 72.4 Lymph % (Auto) 18.3 [place] % (Auto) 5.8 Eos % (Auto) 2.7 Baso % (Auto) 0.6 Neut # (Auto) 6.89 Lymph # (Auto) 1.7 [place] # (Auto) 0.6 Eos # (Auto) 0.3 Baso # (Auto) 0.1 Nucleated RBC % (a uto) 0 Nucleated RBCs # 0.0 Sodium Potassium Chloride Carbon Dioxide Anion Gap BUN Creatinine GFR Calculation Glucose POC Glucose 114 H 156 H Calculated Osmolal ity Calcium Phosphorus Magnesium Total Bilirubin AST ALT Alkaline Phosphata se Total Protein Albumin Globulin Vitals: Last Vital Signs Temp 98.4 F 12/22/20 12:00 Pulse 81 12/22/20 12:00 Resp 24 H 12/22/20 12:00 BP 136/78 12/22/20 12:00 Pulse Ox 94 12/22/20 12:00 Discharge Plan Discharge Patient Disposition: Home Condition: Stable Prescriptions: New hydrocodone-acetaminophen 5-325 mg Tablet 1 tab PO Q12H PRN (Reason: Moderate To Severe Pain) 7 Days Qty: 14 RF: 0 ciprofloxacin HCl 500 mg Tablet 250 mg PO Q12H 10 Days Qty: 10 RF: 0 doxycycline monohydrate 100 mg Tablet 100 mg PO BID 10 Days Qty: 20 RF: 0 nitroglycerin 0.4 mg Tablet, Sublingual 0.4 mg sublingual Q5M PRN (Reason: Chest Pain) 30 Days Qty: 30 RF: 0 Eliquis 5 mg Tablet 5 mg PO BID@0900,2100 30 Days Qty: 60 RF: 0 amiodarone [Pacerone] 200 mg Tablet See Rx Instructions .ROUTE .COMPLEX 30 Days Qty: 60 RF: 0 ondansetron HCl [Zofran] 4 mg tablet 4 mg PO TID PRN (Reason: nausea and vomiting) 5 Days Qty: 15 RF: 0 Continued nitroglycerin 0.4 mg tablet, sublingual 0.4 mg sublingual Q2M PRN (Reason: Pain) RF: 0 amitriptyline 25 mg tablet 25 mg PO BEDTIME RF: 0 levothyroxine 100 mcg tablet 100 mcg PO DAILY RF: 0 vitamin B complex [B Complex-Vitamin B12] Tablet 1 tab PO DAILY RF: 0 garlic 1,000 mg capsule 1,000 mg PO DAILY RF: 0 turmeric root extract 500 mg capsule 500 mg PO DAILY RF: 0 Levemir U-100 Insulin 100 unit/mL solution 30 unit SUBCUT QAM RF: 0 furosemide 40 mg tablet 20 mg PO DAILY Qty: 30 RF: 0 clopidogrel 75 mg tablet 75 mg PO DAILY Qty: 90 RF: 4 multivitamin Tablet 1 tab PO DAILY Qty: 0 RF: 0 alpha lipoic acid 1 tab PO DAILY RF: 0 resveratrol 1 tab PO DAILY RF: 0 losartan 50 mg tablet 100 mg PO DAILY Qty: 30 RF: 3 carvedilol 6.25 mg tablet 6.25 mg PO BID 30 Days Qty: 180 RF: 3 Discontinued aspirin [Adult Low Dose Aspirin] 81 mg tablet,delayed release (DR/EC) 81 mg PO DAILY Qty: 90 RF: 4 Discharge Orders: Discharge Order (Routine); Ordered 12/22/20 Ordered By: Vitaly Leyva Other Ambulatory Orders: DME: Commode (Order) Location: None Selected Ordered By: Vitaly Leyva DME: Wheelchair (Order) Location: None Selected Ordered By: Vitaly Leyva Referrals: [facility] [Outside] Lito Louis MD [Physician] - 7-10 days (aflutter) [facility], [Staff Physician] - 1-3 days Discharge Diet: Cardiac Discharge Activity: Resume usual activity Patient Instructions: Opioid Safety Activity Restrictions/Additional Instructions: -Patient was advised to take antibiotics for the next 10 days, probiotics, drink plenty electrolyte balance fluids -Right lower extremity, weightbearing as tolerated, minimize weightbearing in the forefoot, -Follow-up with wound care -Follow-up with cardiology in 1 week for atrial flutter -Metoprolol, amiodarone, Eliquis or new medications -Monitor for bloody or black stools, continue Plavix -Stop aspirin Discharge Attestations Time Spent in Discharge Care*: other Status at Discharge: Cognitive status at discharge: cognitively intact , Behavioral status at discharge: cooperative , Quality Metrics Clinical Quality Measures During this hospital stay, did patient experience: None Coding Level of Care Code Acute Chg FW DC note Diagnoses Atypical chest pain R07.89 Atrial flutter I48.3 Atrial flutter type: typical Atherosclerosis of coronary artery I25.118 Associated angina: with other forms of angina Coronary Disease-Associated Artery/Lesion type: [place] artery [place] vs. transplanted heart: [place] heart Ischemic cardiomyopathy I25.5 Diabetic ulcer of right foot E11.621; L97.519 SALLY (acute kidney injury) N17.9 Diabetes mellitus with peripheral vascular disease E11.51 HTN (hypertension) I10 Hypertension type: essential hypertension Peripheral arterial disease I73.9
[2020-12-22] MEDS: amiodarone 200 mg Tablet PO (14:15)
[2020-12-22 16:08] LABS: Glucose Point of Care 117 mg/dL (70-110)
--- NOTE | 2020-12-22 18:04 | PC.NURSE ---
Patient education has been provided to and himself. Neither have any questions or concerns regarding d/c medications, follow ups or diagnosis. Patient VS are stable upon departure. Patient taken to ER exit via wheelchair
== END 2020-12-22 16:45 | disposition home health service (06) | DRG 256 ==
LOC: MEDSURG 16:57 → CSU 12-19 22:28
PROVIDERS: Thoracic Surgery (Cardiothoracic Vascular Surgery); Admitting Provider Family Medicine; PCP Physician Assistant; Visit Provider Family Medicine
PROC: 0Y6R0Z0 Detachment at Right 2nd Toe, Complete, Open Approach (ICD-10-PCS; principal; 2020-12-20 07:00)
DX: E11.52 Type 2 diabetes mellitus with diabetic peripheral angiopathy with gangrene (principal); I96 Gangrene, not elsewhere classified; M86.171 Other acute osteomyelitis, right ankle and foot; I48.92 Unspecified atrial flutter; N17.9 Acute kidney failure, unspecified; E11.69 Type 2 diabetes mellitus with other specified complication; E11.621 Type 2 diabetes mellitus with foot ulcer; E11.51 Type 2 diabetes mellitus with diabetic peripheral angiopathy without gangrene; E11.319 Type 2 diabetes mellitus with unspecified diabetic retinopathy without macular edema; E11.42 Type 2 diabetes mellitus with diabetic polyneuropathy; L97.512 Non-pressure chronic ulcer of other part of right foot with fat layer exposed; L03.031 Cellulitis of right toe; E66.01 Morbid (severe) obesity due to excess calories; Z68.28 Body mass index [BMI] 28.0-28.9, adult; Z95.820 Peripheral vascular angioplasty status with implants and grafts; I25.118 Atherosclerotic heart disease of native coronary artery with other forms of angina pectoris; I50.9 Heart failure, unspecified; I11.0 Hypertensive heart disease with heart failure; E78.5 Hyperlipidemia, unspecified; Z89.411 Acquired absence of right great toe; Z87.442 Personal history of urinary calculi; I25.5 Ischemic cardiomyopathy; G89.29 Other chronic pain; B95.8 Unspecified staphylococcus as the cause of diseases classified elsewhere; E86.0 Dehydration; T36.8X5A Adverse effect of other systemic antibiotics, initial encounter; Z79.4 Long term (current) use of insulin; I35.8 Other nonrheumatic aortic valve disorders
CPT/HCPCS: 11042; 36415; 36416; 73700; 80053; 80202; 82962; 83036; 83735; 83880; 84100; 84145; 84443; 84484; 85025; 85651; 86140; 87040; 87070; 87075; 87077; 87186; 87205; 88305; 93005; 93306; 96372; 97162; 97530; G0277; J0282; J1650; J1815; J1956; J2020; J2405; J2704; J2765; J3010; J3370; J3490; J7030; J7060; J8597

== ENCOUNTER 2020-12-26 13:07 | Outpatient (CLI) | payer MEDICARE, SELFPAY | END 2020-12-26 13:08 | disposition home or self-care (01) | LOC: WOUND 13:09 | PROVIDERS: PCP Physician Assistant; Visit Provider Nurse Practitioner Family | DX: E11.621 Type 2 diabetes mellitus with foot ulcer (principal); L97.516 Non-pressure chronic ulcer of other part of right foot with bone involvement without evidence of necrosis; M86.9 Osteomyelitis, unspecified; Z89.421 Acquired absence of other right toe(s) | CPT/HCPCS: G0277; G0463 ==

== ENCOUNTER 2020-12-28 13:18 | Outpatient (CLI) | payer MEDICARE, SELFPAY | END 2020-12-28 13:19 | disposition home or self-care (01) | LOC: WOUND 13:19 | PROVIDERS: PCP Physician Assistant; Visit Provider Thoracic Surgery (Cardiothoracic Vascular Surgery) | DX: E11.621 Type 2 diabetes mellitus with foot ulcer (principal); L97.516 Non-pressure chronic ulcer of other part of right foot with bone involvement without evidence of necrosis; M86.9 Osteomyelitis, unspecified; Z89.421 Acquired absence of other right toe(s) | CPT/HCPCS: G0277 ==

== ENCOUNTER 2021-01-02 13:04 | Outpatient (CLI) | payer MEDICARE, SELFPAY | END 2021-01-02 13:05 | disposition home or self-care (01) | LOC: WOUND 13:05 | PROVIDERS: PCP Physician Assistant; Visit Provider Thoracic Surgery (Cardiothoracic Vascular Surgery) | DX: E11.621 Type 2 diabetes mellitus with foot ulcer (principal); L97.511 Non-pressure chronic ulcer of other part of right foot limited to breakdown of skin | CPT/HCPCS: 97597 ==

== ENCOUNTER 2021-01-03 13:11 | Outpatient (CLI) | payer MEDICARE, SELFPAY | END 2021-01-03 13:12 | disposition home or self-care (01) | LOC: WOUND 13:12 | PROVIDERS: PCP Physician Assistant; Visit Provider Thoracic Surgery (Cardiothoracic Vascular Surgery) | DX: E11.621 Type 2 diabetes mellitus with foot ulcer (principal); L97.516 Non-pressure chronic ulcer of other part of right foot with bone involvement without evidence of necrosis; M86.9 Osteomyelitis, unspecified; Z89.421 Acquired absence of other right toe(s) | CPT/HCPCS: G0277 ==

== ENCOUNTER 2021-01-04 13:11 | Outpatient (CLI) | payer MEDICARE, SELFPAY | END 2021-01-04 13:12 | disposition home or self-care (01) | LOC: WOUND 13:14 | PROVIDERS: PCP Physician Assistant; Visit Provider Thoracic Surgery (Cardiothoracic Vascular Surgery) | DX: E11.621 Type 2 diabetes mellitus with foot ulcer (principal); L97.516 Non-pressure chronic ulcer of other part of right foot with bone involvement without evidence of necrosis; M86.9 Osteomyelitis, unspecified; Z89.421 Acquired absence of other right toe(s) | CPT/HCPCS: G0277 ==

== ENCOUNTER 2021-01-05 13:04 | Outpatient (CLI) | payer MEDICARE, SELFPAY | END 2021-01-05 13:05 | disposition home or self-care (01) | LOC: WOUND 13:27 | PROVIDERS: PCP Physician Assistant; Visit Provider Surgery | DX: E11.621 Type 2 diabetes mellitus with foot ulcer (principal); L97.516 Non-pressure chronic ulcer of other part of right foot with bone involvement without evidence of necrosis; M86.9 Osteomyelitis, unspecified; Z89.421 Acquired absence of other right toe(s) | CPT/HCPCS: G0277 ==

== ENCOUNTER 2021-01-08 13:07 | Outpatient (CLI) | payer MEDICARE, SELFPAY | END 2021-01-08 13:08 | disposition home or self-care (01) | PROVIDERS: PCP Physician Assistant; Visit Provider Thoracic Surgery (Cardiothoracic Vascular Surgery) | DX: E11.621 Type 2 diabetes mellitus with foot ulcer (principal); L97.516 Non-pressure chronic ulcer of other part of right foot with bone involvement without evidence of necrosis; M86.9 Osteomyelitis, unspecified; Z89.421 Acquired absence of other right toe(s) | CPT/HCPCS: 11042; 97597; G0277 ==

== ENCOUNTER 2021-01-09 08:08 | Outpatient (CLI) | payer MEDICARE, SELFPAY | END 2021-01-09 08:09 | disposition home or self-care (01) | LOC: WOUND 08:08 | PROVIDERS: PCP Physician Assistant; Visit Provider Thoracic Surgery (Cardiothoracic Vascular Surgery) | DX: E11.621 Type 2 diabetes mellitus with foot ulcer (principal); L97.516 Non-pressure chronic ulcer of other part of right foot with bone involvement without evidence of necrosis; M86.9 Osteomyelitis, unspecified; Z89.421 Acquired absence of other right toe(s) | CPT/HCPCS: G0277 ==

== ENCOUNTER 2021-01-10 13:03 | Outpatient (CLI) | payer MEDICARE, SELFPAY | END 2021-01-10 13:04 | disposition home or self-care (01) | LOC: WOUND 13:04 | PROVIDERS: PCP Physician Assistant; Visit Provider Thoracic Surgery (Cardiothoracic Vascular Surgery) | DX: E11.621 Type 2 diabetes mellitus with foot ulcer (principal); L97.516 Non-pressure chronic ulcer of other part of right foot with bone involvement without evidence of necrosis; M86.9 Osteomyelitis, unspecified | CPT/HCPCS: G0277 ==

== ENCOUNTER 2021-01-11 13:05 | Outpatient (CLI) | payer MEDICARE, SELFPAY | END 2021-01-11 13:06 | disposition home or self-care (01) | LOC: WOUND 13:05 | PROVIDERS: PCP Physician Assistant; Visit Provider Thoracic Surgery (Cardiothoracic Vascular Surgery) | DX: E11.621 Type 2 diabetes mellitus with foot ulcer (principal); L97.516 Non-pressure chronic ulcer of other part of right foot with bone involvement without evidence of necrosis; M86.9 Osteomyelitis, unspecified | CPT/HCPCS: G0277 ==

== ENCOUNTER 2021-01-12 12:59 | Outpatient (CLI) | payer MEDICARE, SELFPAY | END 2021-01-12 13:00 | disposition home or self-care (01) | LOC: WOUND 13:00 | PROVIDERS: PCP Physician Assistant; Visit Provider Nurse Practitioner Family | DX: E11.621 Type 2 diabetes mellitus with foot ulcer (principal); L97.516 Non-pressure chronic ulcer of other part of right foot with bone involvement without evidence of necrosis; M86.9 Osteomyelitis, unspecified | CPT/HCPCS: G0277 ==

== ENCOUNTER 2021-01-15 13:01 | Outpatient (CLI) | payer MEDICARE, SELFPAY | END 2021-01-15 13:02 | disposition home or self-care (01) | LOC: WOUND 13:02 | PROVIDERS: PCP Physician Assistant; Visit Provider Thoracic Surgery (Cardiothoracic Vascular Surgery) | DX: E11.621 Type 2 diabetes mellitus with foot ulcer (principal); L97.516 Non-pressure chronic ulcer of other part of right foot with bone involvement without evidence of necrosis; M86.9 Osteomyelitis, unspecified; Z89.421 Acquired absence of other right toe(s) | CPT/HCPCS: 97597; G0277 ==

== ENCOUNTER 2021-01-17 13:20 | Outpatient (CLI) | payer MEDICARE, SELFPAY | END 2021-01-17 13:21 | disposition home or self-care (01) | LOC: WOUND 13:21 | PROVIDERS: PCP Physician Assistant; Visit Provider Thoracic Surgery (Cardiothoracic Vascular Surgery) | DX: E11.621 Type 2 diabetes mellitus with foot ulcer (principal); L97.516 Non-pressure chronic ulcer of other part of right foot with bone involvement without evidence of necrosis; M86.9 Osteomyelitis, unspecified | CPT/HCPCS: G0277 ==

== ENCOUNTER 2021-01-22 13:09 | Outpatient (CLI) | payer MEDICARE, SELFPAY | END 2021-01-22 13:10 | disposition home or self-care (01) | LOC: WOUND 13:10 | PROVIDERS: PCP Physician Assistant; Visit Provider Nurse Practitioner Family | DX: E11.621 Type 2 diabetes mellitus with foot ulcer (principal); L97.516 Non-pressure chronic ulcer of other part of right foot with bone involvement without evidence of necrosis; M86.9 Osteomyelitis, unspecified; Z89.421 Acquired absence of other right toe(s) | CPT/HCPCS: 11042; G0277 ==

== ENCOUNTER 2021-01-23 13:32 | Outpatient (CLI) | payer MEDICARE, SELFPAY | END 2021-01-23 13:33 | disposition home or self-care (01) | LOC: WOUND 13:33 | PROVIDERS: PCP Physician Assistant; Visit Provider Nurse Practitioner Family | DX: E11.621 Type 2 diabetes mellitus with foot ulcer (principal); L97.516 Non-pressure chronic ulcer of other part of right foot with bone involvement without evidence of necrosis; M86.9 Osteomyelitis, unspecified | CPT/HCPCS: G0277 ==

== ENCOUNTER 2021-01-25 07:47 | Outpatient (CLI) | payer MEDICARE, SELFPAY | END 2021-01-25 07:48 | disposition home or self-care (01) | LOC: WOUND 07:48 | PROVIDERS: PCP Physician Assistant; Visit Provider Nurse Practitioner Family | DX: E11.621 Type 2 diabetes mellitus with foot ulcer (principal); L97.516 Non-pressure chronic ulcer of other part of right foot with bone involvement without evidence of necrosis; M86.9 Osteomyelitis, unspecified | CPT/HCPCS: G0277 ==

== ENCOUNTER 2021-01-26 13:08 | Outpatient (CLI) | payer MEDICARE, SELFPAY | END 2021-01-26 13:09 | disposition home or self-care (01) | LOC: WOUND 13:09 | PROVIDERS: PCP Physician Assistant; Visit Provider Surgery | DX: E11.621 Type 2 diabetes mellitus with foot ulcer (principal); L97.516 Non-pressure chronic ulcer of other part of right foot with bone involvement without evidence of necrosis; M86.9 Osteomyelitis, unspecified | CPT/HCPCS: G0277 ==

== ENCOUNTER 2021-01-29 13:13 | Outpatient (CLI) | payer MEDICARE, SELFPAY | END 2021-01-29 13:14 | disposition home or self-care (01) | LOC: WOUND 13:14 | PROVIDERS: PCP Physician Assistant; Visit Provider Nurse Practitioner Family | DX: E11.621 Type 2 diabetes mellitus with foot ulcer (principal); L97.516 Non-pressure chronic ulcer of other part of right foot with bone involvement without evidence of necrosis; M86.9 Osteomyelitis, unspecified; Z89.421 Acquired absence of other right toe(s) | CPT/HCPCS: 11042; G0277 ==

== ENCOUNTER 2021-01-31 13:09 | Outpatient (CLI) | payer MEDICARE, SELFPAY | END 2021-01-31 13:10 | disposition home or self-care (01) | LOC: WOUND 13:10 | PROVIDERS: PCP Physician Assistant; Visit Provider Nurse Practitioner Family | DX: E11.621 Type 2 diabetes mellitus with foot ulcer (principal); L97.516 Non-pressure chronic ulcer of other part of right foot with bone involvement without evidence of necrosis; M86.671 Other chronic osteomyelitis, right ankle and foot | CPT/HCPCS: G0277 ==

== ENCOUNTER 2021-02-01 13:06 | Outpatient (CLI) | payer MEDICARE, SELFPAY | END 2021-02-01 13:07 | disposition home or self-care (01) | LOC: WOUND 13:07 | PROVIDERS: PCP Physician Assistant; Visit Provider Thoracic Surgery (Cardiothoracic Vascular Surgery) | DX: E11.621 Type 2 diabetes mellitus with foot ulcer (principal); L97.516 Non-pressure chronic ulcer of other part of right foot with bone involvement without evidence of necrosis; M86.9 Osteomyelitis, unspecified | CPT/HCPCS: G0277 ==

== ENCOUNTER 2021-02-02 13:05 | Outpatient (CLI) | payer MEDICARE, SELFPAY | END 2021-02-02 13:06 | disposition home or self-care (01) | LOC: WOUND 13:06 | PROVIDERS: PCP Physician Assistant; Visit Provider Nurse Practitioner Family | DX: E11.621 Type 2 diabetes mellitus with foot ulcer (principal); L97.516 Non-pressure chronic ulcer of other part of right foot with bone involvement without evidence of necrosis; M86.9 Osteomyelitis, unspecified | CPT/HCPCS: G0277 ==

== ENCOUNTER 2021-02-19 12:55 | Outpatient (CLI) | payer MEDICARE, SELFPAY | END 2021-02-19 12:56 | disposition home or self-care (01) | LOC: WOUND 12:58 | PROVIDERS: PCP Physician Assistant; Visit Provider Thoracic Surgery (Cardiothoracic Vascular Surgery) | DX: E11.621 Type 2 diabetes mellitus with foot ulcer (principal); L97.512 Non-pressure chronic ulcer of other part of right foot with fat layer exposed; Z89.421 Acquired absence of other right toe(s) | CPT/HCPCS: 11043 ==

== ENCOUNTER 2021-02-26 12:56 | Outpatient (CLI) | payer MEDICARE, SELFPAY | END 2021-02-26 12:57 | disposition home or self-care (01) | LOC: WOUND 12:57 | PROVIDERS: PCP Physician Assistant; Visit Provider Nurse Practitioner Family | DX: E11.621 Type 2 diabetes mellitus with foot ulcer (principal); L97.512 Non-pressure chronic ulcer of other part of right foot with fat layer exposed; Z89.421 Acquired absence of other right toe(s) | CPT/HCPCS: 11042; 87070; 87077; 87176; 87186; 87205 ==

== ENCOUNTER 2021-03-05 13:05 | Outpatient (CLI) | payer MEDICARE, SELFPAY | END 2021-03-05 13:06 | disposition home or self-care (01) | LOC: WOUND 13:06 | PROVIDERS: PCP Physician Assistant; Visit Provider Thoracic Surgery (Cardiothoracic Vascular Surgery) | DX: E11.621 Type 2 diabetes mellitus with foot ulcer (principal); L97.512 Non-pressure chronic ulcer of other part of right foot with fat layer exposed; Z89.421 Acquired absence of other right toe(s) | CPT/HCPCS: 11043 ==

== ENCOUNTER 2021-03-08 13:58 | Outpatient (CLI) | payer MEDICARE, SELFPAY | END 2021-03-08 13:59 | disposition home or self-care (01) | LOC: WOUND 13:59 | PROVIDERS: PCP Physician Assistant; Visit Provider Thoracic Surgery (Cardiothoracic Vascular Surgery) | DX: T81.31XA Disruption of external operation (surgical) wound, not elsewhere classified, initial encounter (principal); Y83.8 Other surgical procedures as the cause of abnormal reaction of the patient, or of later complication, without mention of misadventure at the time of the procedure | CPT/HCPCS: 11042; 87070; 87077; 87186; 97605 ==

== ENCOUNTER 2021-03-12 13:02 | Outpatient (CLI) | payer MEDICARE, SELFPAY | END 2021-03-12 13:03 | disposition home or self-care (01) | LOC: WOUND 13:03 | PROVIDERS: PCP Physician Assistant; Visit Provider Nurse Practitioner Family | DX: E11.621 Type 2 diabetes mellitus with foot ulcer (principal); L97.512 Non-pressure chronic ulcer of other part of right foot with fat layer exposed; Z89.421 Acquired absence of other right toe(s) | CPT/HCPCS: 11042 ==

== ENCOUNTER 2021-03-19 13:59 | Outpatient (CLI) | payer MEDICARE, SELFPAY | END 2021-03-19 14:00 | disposition home or self-care (01) | LOC: WOUND 14:00 | PROVIDERS: PCP Physician Assistant; Visit Provider Thoracic Surgery (Cardiothoracic Vascular Surgery) | DX: E11.621 Type 2 diabetes mellitus with foot ulcer (principal); L97.512 Non-pressure chronic ulcer of other part of right foot with fat layer exposed; Z89.421 Acquired absence of other right toe(s) | CPT/HCPCS: 11042 ==

== ENCOUNTER 2021-03-26 14:11 | Outpatient (CLI) | payer MEDICARE, SELFPAY | END 2021-03-26 14:12 | disposition home or self-care (01) | LOC: WOUND 14:13 | PROVIDERS: PCP Physician Assistant; Visit Provider Thoracic Surgery (Cardiothoracic Vascular Surgery) | DX: E11.621 Type 2 diabetes mellitus with foot ulcer (principal); L97.512 Non-pressure chronic ulcer of other part of right foot with fat layer exposed; Z89.421 Acquired absence of other right toe(s) | CPT/HCPCS: 87070; 97597 ==

== ENCOUNTER 2021-03-27 09:35 | Outpatient (CLI) | payer MEDICARE, SELFPAY | END 2021-03-27 09:36 | disposition home or self-care (01) | LOC: WOUND 09:36 | PROVIDERS: PCP Physician Assistant; Visit Provider Nurse Practitioner Family | DX: E11.621 Type 2 diabetes mellitus with foot ulcer (principal); L97.512 Non-pressure chronic ulcer of other part of right foot with fat layer exposed; I73.9 Peripheral vascular disease, unspecified; I50.9 Heart failure, unspecified; M86.171 Other acute osteomyelitis, right ankle and foot | CPT/HCPCS: 99212 ==

== ENCOUNTER 2021-04-02 13:43 | Outpatient (CLI) | payer MEDICARE, SELFPAY | END 2021-04-02 13:44 | disposition home or self-care (01) | LOC: WOUND 13:44 | PROVIDERS: PCP Physician Assistant; Visit Provider Nurse Practitioner Family | DX: E11.621 Type 2 diabetes mellitus with foot ulcer (principal); L97.512 Non-pressure chronic ulcer of other part of right foot with fat layer exposed; Z89.411 Acquired absence of right great toe | CPT/HCPCS: 11042 ==

== ENCOUNTER 2021-04-16 13:07 | Outpatient (CLI) | payer MEDICARE, SELFPAY | END 2021-04-16 13:08 | disposition home or self-care (01) | LOC: WOUND 13:09 | PROVIDERS: PCP Physician Assistant; Visit Provider Thoracic Surgery (Cardiothoracic Vascular Surgery) | DX: E11.621 Type 2 diabetes mellitus with foot ulcer (principal); L97.512 Non-pressure chronic ulcer of other part of right foot with fat layer exposed; Z89.421 Acquired absence of other right toe(s) | CPT/HCPCS: 11042 ==

== ENCOUNTER 2021-04-30 13:10 | Outpatient (CLI) | payer MEDICARE, SELFPAY | END 2021-04-30 13:11 | disposition home or self-care (01) | LOC: WOUND 13:11 | PROVIDERS: PCP Physician Assistant; Visit Provider Emergency Medicine | DX: Z09 Encounter for follow-up examination after completed treatment for conditions other than malignant neoplasm (principal) | CPT/HCPCS: 99212 ==

== ENCOUNTER 2021-09-12 14:22 | Outpatient (CLI) | payer MEDICARE, SELFPAY | END 2021-09-12 14:23 | disposition home or self-care (01) | LOC: WOUND 14:28 | PROVIDERS: PCP Physician Assistant; Visit Provider Thoracic Surgery (Cardiothoracic Vascular Surgery) | DX: I96 Gangrene, not elsewhere classified (principal); I87.2 Venous insufficiency (chronic) (peripheral); L97.311 Non-pressure chronic ulcer of right ankle limited to breakdown of skin; E11.622 Type 2 diabetes mellitus with other skin ulcer; L97.811 Non-pressure chronic ulcer of other part of right lower leg limited to breakdown of skin; L97.821 Non-pressure chronic ulcer of other part of left lower leg limited to breakdown of skin | CPT/HCPCS: 97597; 97598; 99213 ==

== ENCOUNTER 2021-09-19 14:17 | Outpatient (CLI) | payer MEDICARE, SELFPAY | END 2021-09-19 14:18 | disposition home or self-care (01) | LOC: WOUND 14:18 | PROVIDERS: PCP Physician Assistant; Visit Provider Thoracic Surgery (Cardiothoracic Vascular Surgery) | DX: I96 Gangrene, not elsewhere classified (principal); I87.2 Venous insufficiency (chronic) (peripheral); L97.311 Non-pressure chronic ulcer of right ankle limited to breakdown of skin; L97.811 Non-pressure chronic ulcer of other part of right lower leg limited to breakdown of skin; L97.821 Non-pressure chronic ulcer of other part of left lower leg limited to breakdown of skin; E11.9 Type 2 diabetes mellitus without complications | CPT/HCPCS: 97597; 97598 ==

== ENCOUNTER → 2021-09-24 09:25 | Outpatient (BNVA) | payer MEDICARE, SELFPAY | PROVIDERS: PCP Physician Assistant; Visit Provider Internal Medicine Cardiovascular Disease | DX: E78.5 Hyperlipidemia, unspecified (principal); I10 Essential (primary) hypertension; I25.5 Ischemic cardiomyopathy; I48.92 Unspecified atrial flutter; I73.9 Peripheral vascular disease, unspecified | CPT/HCPCS: 80048; 83735; 83880 ==

== ENCOUNTER 2021-09-26 08:44 | Outpatient (CLI) | payer MEDICARE, SELFPAY ==
--- NOTE | 2021-09-26 08:50 | USCV_ITS ---
KimUsman mcgill Age: 71 Gender: M : 1950 Exam Date: 09/26/2021 09:06 Ordering Phys: Pantera Moraes MD (Andy) ([email or web address]) Technologist: ADIS Exam Location: [facility] [place] Indication: TYPE 2 DM ULCERS Risk Factors: Previous Vascular Surgery: RIGHT LEFT Waveform Velocity (cm/s) Velocity (cm/s) Waveform Triphasic Iliac Prox Biphasic 107.7 160.6 Triphasic 137.3 Iliac Mid 136.0 Biphasic Triphasic 152.6 Iliac Distal 154.9 Biphasic Triphasic 111.4 SPOOLER OPERATOR AUTOMATIC 140.3 Biphasic Biphasic 38.1 SFA Prox 51.9 Biphasic N/A SFA Mid 91.5 Biphasic Monophasic 54.7 SFA Dist 158.5 Biphasic Monophasic 38.5 POP 85.0 Biphasic Monophasic 42.7 ELECTRIC MOTOR WINDER 67.8 Monophasic N/A DPA 39.5 Monophasic FINDINGS UNABLE TO OBTAIN SANIYA'S DUE TO PT HAVING OPEN ULCERS AT ANKLES. Moderate heterogeneous plaques are noted in the right SFA. No Doppler flow signals in the right mid SFA and the dorsalis pedis artery. Monophasic and continuous waveforms in the popliteal and posterior tibial arteries on the right side CONCLUSIONS 1. Features of total occlusion of the superficial femoral artery at the mid segment on the right side with collateral filling of the popliteal and posterior tibial artery. Possible occlusion of the dorsalis pedis artery on the right side. 2. Patent iliac, femoral, popliteal and infrapopliteal vessels on the left side. Moderate diffuse plaques were noted in the popliteal and infrapopliteal vessels. 3. ABIs could not be obtained because of the ulcerations at the ankle. Dr Lito Louis MD [facility] (Electronically Signed) Final Date: 26 September 2021 18:38 S
== END 2021-09-26 08:45 | disposition home or self-care (01) ==
PROVIDERS: PCP Physician Assistant; Visit Provider Thoracic Surgery (Cardiothoracic Vascular Surgery)
DX: E11.622 Type 2 diabetes mellitus with other skin ulcer (principal)
CPT/HCPCS: 93925

== ENCOUNTER 2021-09-26 09:42 | Outpatient (CLI) | payer MEDICARE, SELFPAY | END 2021-09-26 09:43 | disposition home or self-care (01) | LOC: WOUND 09:43 | PROVIDERS: PCP Physician Assistant; Visit Provider Thoracic Surgery (Cardiothoracic Vascular Surgery) | DX: I96 Gangrene, not elsewhere classified (principal); I87.2 Venous insufficiency (chronic) (peripheral); L97.311 Non-pressure chronic ulcer of right ankle limited to breakdown of skin; L97.811 Non-pressure chronic ulcer of other part of right lower leg limited to breakdown of skin; L97.821 Non-pressure chronic ulcer of other part of left lower leg limited to breakdown of skin; E11.9 Type 2 diabetes mellitus without complications | CPT/HCPCS: 97597 ==

== ENCOUNTER 2021-10-03 14:14 | Outpatient (CLI) | payer MEDICARE, SELFPAY | END 2021-10-03 14:15 | disposition home or self-care (01) | LOC: WOUND 14:15 | PROVIDERS: PCP Physician Assistant; Visit Provider Thoracic Surgery (Cardiothoracic Vascular Surgery) | DX: E11.622 Type 2 diabetes mellitus with other skin ulcer (principal); L97.311 Non-pressure chronic ulcer of right ankle limited to breakdown of skin; L97.811 Non-pressure chronic ulcer of other part of right lower leg limited to breakdown of skin; L97.821 Non-pressure chronic ulcer of other part of left lower leg limited to breakdown of skin; I87.2 Venous insufficiency (chronic) (peripheral) | CPT/HCPCS: 97597; 99212 ==

== ENCOUNTER 2021-10-10 09:09 | Outpatient (CLI) | payer MEDICARE, SELFPAY | END 2021-10-10 09:10 | disposition home or self-care (01) | LOC: WOUND 09:11 | PROVIDERS: PCP Physician Assistant; Visit Provider Thoracic Surgery (Cardiothoracic Vascular Surgery) | DX: I87.2 Venous insufficiency (chronic) (peripheral) (principal); L97.311 Non-pressure chronic ulcer of right ankle limited to breakdown of skin; L97.811 Non-pressure chronic ulcer of other part of right lower leg limited to breakdown of skin; L97.821 Non-pressure chronic ulcer of other part of left lower leg limited to breakdown of skin | CPT/HCPCS: 11042; 97597; 99214 ==

== ENCOUNTER → 2021-10-16 14:08 | Outpatient (BNVA) | payer MEDICARE, SELFPAY | PROVIDERS: PCP Physician Assistant; Visit Provider Internal Medicine | DX: Z01.812 Encounter for preprocedural laboratory examination (principal); Z20.822 Contact with and (suspected) exposure to COVID-19 | CPT/HCPCS: 87635 ==

== ENCOUNTER 2021-10-17 09:21 | Outpatient (CLI) | payer MEDICARE, SELFPAY | END 2021-10-17 09:22 | disposition home or self-care (01) | LOC: WOUND 09:22 | PROVIDERS: PCP Physician Assistant; Visit Provider Thoracic Surgery (Cardiothoracic Vascular Surgery) | DX: I87.2 Venous insufficiency (chronic) (peripheral) (principal); I73.9 Peripheral vascular disease, unspecified; L97.311 Non-pressure chronic ulcer of right ankle limited to breakdown of skin; L97.811 Non-pressure chronic ulcer of other part of right lower leg limited to breakdown of skin; L97.821 Non-pressure chronic ulcer of other part of left lower leg limited to breakdown of skin | CPT/HCPCS: 97597 ==

== ENCOUNTER 2021-10-19 13:12 | Observation (INO) | payer MEDICARE, SELFPAY ==
[2021-10-16 14:00] LABS: Basophils # 0.1 10^3/uL (0.0-0.1); Basophils % 0.8 %; Eosinophils # 0.4 10^3/uL (0.0-0.8); Eosinophils % 4.1 %; Hematocrit 41.3 % (42.0-52.0); Hemoglobin 12.7 g/dL (11.7-16.6); Lymphocytes # 3.4 10^3/uL (0.8-4.8); Mean Corpuscular HGB Conc 30.8 g/dL (30.0-36.0); Mean Corpuscular Hemoglobin 28.1 pg (28.0-34.0); Mean Corpuscular Volume 91.4 fl (80-94); Mean Platelet Volume 9.5 fL (7.4-10.4); Monocytes # 0.5 10^3/uL (0.2-0.9); Monocytes % 5.4 %; Neutrophils # 5.36 10^3/uL (1.8-7.7); Neutrophils % 54.5 %; Nucleated Red Blood Cells % 0 %; Platelet Count 229 10^3/cmm (130-400); Red Blood Count 4.52 10^6/uL (4.1-5.3); Red Cell Distribution Width 13.2 % (12.1-15.1); White Blood Count 9.8 10^3/uL (4.0-10.0)
[2021-10-16 14:05] LABS: INR 0.98 (0.83-1.21); Prothrombin Time (Patient) 13.3 Seconds (12.0-15.1)
[2021-10-16 14:36] LABS: Anion Gap 14.9 (5-19); Blood Urea Nitrogen 52 mg/dL (8-23); Calcium 8.7 mg/dL (8.5-10.5); Carbon Dioxide 28 mmol/L (22-29); Chloride 102 mmol/L (98-107); Glomerular Filtration Rate 37.6 mL/min (90-130); Glucose 234 mg/dL (65-115); Osmolality Calculated 312 mOsm/kg (285-295); Potassium 4.9 mmol/L (3.5-5.1); Sodium 140 mmol/L (136-145)
[2021-10-19] VITALS (32 sets, daily range): BP systolic 99–161; BP diastolic 61–92; PULSE 85–97; RESP 12–25; TEMP 36.7; O2SAT 88–98; BMI 30.7
--- NOTE | 2021-10-19 07:30 | XACV_ITS ---
Ht: 584 cm Wt: 33 kg BSA: 1.99 m2 Any Known Allergies: Penicillins Gender: Male : 1950 Exam Type: Invasive Peripheral Vascular Procedure(s): Procedure Description: Peripheral Cath Diagnostic Procedure Procedure Description: Lower extremities' angiography Procedure Description: Peripheral vascular Intervention Procedure Description: PV Balloon Exam Priority: Routine Lower Extremity Diagnostic Findings INDICATION: 71-year-old man with past medical history of ischemic cardiomyopathy, peripheral artery disease and diabetes has been referred by Dr. Moraes for evaluation regarding percutaneous intervention of his right SFA. Patient had right SFA occlusion and revascularization in the past. He has nonhealing ulcers and Doppler ultrasound reveals occluded mid SFA with collateral filling to the popliteal artery. Right common iliac artery: Patent Right external iliac artery: Patent Right common femoral artery: Patent Right profunda femoris artery: Patent Right SFA: Occluded at origin TP segment is reconstituted via collaterals. Right popliteal artery: Occluded TP segment: Has disease. Reconstitutes via collaterals. Has Severe below the knee peripheral artery disease.. Right Mid-longitudinal Superficial Femoral Artery: 70% stenosis. Lower Extremity Interventional Findings Procedure detail: After obtaining access in left common femoral artery, we used a UF catheter to go up and over to the contralateral lower extremity. SFA was ostially occluded. We attempted to wire totally stenotic SFA with seeker support catheter and Glidewire. However it was going into dissection plane. We then switched our access site to right posterior tibial artery. We were able to cross the occluded segment with a wire. As balloon was not advancing through the posterior tibial artery, we externalized to the Glidewire by snaring it through left common femoral access site. Balloon angioplasty is using 5.0x 250 mm balloon were performed from ostial SFA to popliteal artery. Pedal access sheath was removed and pressure was held. Final angiogram demonstrated latter-day of flow in SFA and popliteal artery. However below the knee patient has severe peripheral artery disease that is not amenable to intervention as it is diffuse and foot is supplied mostly by collateral blood supply.. Right Mid-longitudinal Superficial Femoral Artery: 70% stenosis treated with AB [place] 35 DELIVERY CLERK Catheter [id number]. Conclusions Severe peripheral artery disease in right lower extremity s/p successful revascularization of SFA and popliteal artery with balloon angioplasties. Patient has severe below the knee diffuse small vessel disease. Foot mostly supplied by collateral blood supply. There is severe right lower extremity disease. Right Mid-longitudinal Superficial Femoral Artery was treated with Balloon. Recommendations Continue aspirin and Plavix. Transfer to [facility]. Follow up with wound care. Outpatient cardiology follow up in 4 weeks. Hemodynamic Data Phase:Rest AO : 123.0 / 93.0 ( 108.0 ) @ 1:43:00 PM 156.0 / 76.0 ( 109.0 ) @ 1:51:00 PM 179.0 / 78.0 ( 116.0 ) @ 2:13:00 PM 158.0 / 65.0 ( 101.0 ) @ 2:22:00 PM 143.0 / 59.0 ( 93.0 ) @ 2:34:00 PM 132.0 / 79.0 ( 103.0 ) @ 3:04:00 PM Access Site Site: Left Pedal Sheath Size: 6 Fr Hemost... Method: Mechanical Compression Hemost... Success: Successful Site: Left Femoral artery Sheath Size: 6 Fr Hemost... Method: Suture Hemost... Success: Successful Procedure Details Findings Procedure Consent Obtained. Admit Source: Out Patient. Pre-Procedure Time Out. Identified patient by full name and date of as verbalized by the patient/guarantor. Does the consent match the physician's order: Yes. Accurate & Complete Informed Consent: Yes. Inpatient/Outpatient History & Physical on Chart: Yes. If H&P is completed, is and addenduem needed: N/A; If yes, is the addendum complete: N/A. Visualize and Verify Site with Patient/Guarantor: N/A. Relevant Radiology Images available: Yes. Pre-op teaching completed and patient verbalized understanding. The risks, benefits, and alternatives of sedation and/or procedure were discussed by physician. The patient agrees to continue. Procedure started. Correct patient, site and procedure confirmed by cath team. Current diagnosis: PVD. PERRLA. Strong, equal hand planning aide bilaterally. Lungs clear x 5 lobes. IV Site on Arrival: 20 gauge in the left anticubital. IV Fluids: 0.9% NaCl at KVO. 500 mL infused prior to cath lab nurse. Pre Procedural Pulses: bilateral posterior tibial was Doppled. Pre Procedural Pulses: bilateral dorsalis pedis was Doppled. Oxygen started at 2liters/min via nasal canula. bilateral groins was prepped with chloroprep then draped in the usual sterile fashion. Baseline sample Acquired. HR: 85 BPM. Physician notified. Physician arrived. Physician scrubbed in. Time out performed with cath team. Lidocaine 1% infiltrated to the left groin. Arterial access obtained with micropuncture set. A 5FrFr RIM catheter in over wire. Glidewire inserted. Rim catheter advanced to the external iliac. Glidewire removed. Pigtail postioned above the bifurcation of the iliacs. Aortagram performed @ 10 mL/sec for a total of 30 mL. Glidewire inserted. Catheter removed over the glide wire. 6 Fr short sheath exchanged for 45cm 6Fr Flexor Sheath. Seeker catheter inserted over the wire. Seeker positioned in mid SFA. Glidewire removed. [place] of femoral sheath connected to KVO to maintain patency. right posterior tibal was prepped with chloroprep then draped in the usual sterile fashion. Lidocaine 1% infiltrated to the right posterior tibial. Arterial access obtained with pedal access kit. Hand injection performed through the microdilator. Seeker catheter removed from femoral access. Glidewire advanced through pedal access site. Seeker catheter inserted into pedal access site. Wire and seeker positioned in the R SFA. Balloon inserted over the wire to the superficial femoral. Balloon out due to inability to cross lesion. Seeker catheter removed. Seeker inserted over the Glidewire. 6 FR Snare catheter inserted into femoral sheath. Glidewire snared through pedal access site and pulled through femoral access site. Seeker catheter removed from pedal access site. Balloon inserted over the wire to the superficial femoral. Inflation number : 1 A AB [place] 35 DELIVERY CLERK Catheter [id number] was prepped and advanced across the Mid Superficial Femoral, Right , then inflated to 6 BETTY for 1:30 seconds. Inflation number: 2 The AB [place] 35 DELIVERY CLERK Catheter [id number] was reinflated across the Mid Superficial Femoral, Right, to 6 BETTY for 1:49 seconds. Inflation number: 3 The AB [place] 35 DELIVERY CLERK Catheter [id number] was reinflated across the Mid Superficial Femoral, Right, to 4 BETTY for 1:31 seconds. Inflation number: 4 The AB [place] 35 DELIVERY CLERK Catheter [id number] was reinflated across the Mid Superficial Femoral, Right, to 6ATM for 1:33 seconds. Balloon out. R posterior tibial sheath removed and manual compression held. A Mechanical Compression was successful obtaining hemostatsis at the Left Pedal insertion site. Seeker inserted over the glidewire. Hand injection performed through the seeker catheter. Results checked. Seeker catheter removed. 6 Fr 45cm Flexor sheath exchaged for 6Fr short sheath. Glidewire removed. A Suture was successful obtaining hemostatsis at the Left Femoral artery insertion site. Post Procedure: Pulses reassessed and unchanged. PERRLA. Strong, equal hand planning aide bilaterally. No VTE prophylaxis required. Medication's Wasted: Lidocaine 1% = 8 mL. Medication's Wasted: Nitro = 49.6 mg. Medication's Wasted: Other = Hydralazine 10 mg. Total IV fluids: 362 mL. Post-op diagnosis: Severe PVD. Complications: none. Estimated blood loss: 5mL-10mL. Responsiveness - Normal response to verbal stimuli; alert and oriented, PERRLA. Airway - Unaffected, no intervention required; spontaneous ventilation. Circulation: W/N/L, pulses unchanged. Nausea/Vomiting: No. Procedure completed. Patient transferred by bed to 1st floor. Vital chart was stopped. Procedure Medications Start: 12:25 PM Stop: 12:25 PM Medication: Versed Amount: 1 mg Route: I.V. Start: 12:22 PM Stop: 12:22 PM Medication: Versed Amount: 1 mg Route: I.V. Start: 12:22 PM Stop: 12:22 PM Medication: Fentanyl Amount: 50 mcg Route: I.V. Start: 12:37 PM Stop: 12:37 PM Medication: Fentanyl Amount: 25 mcg Route: I.V. Start: 12:48 PM Stop: 12:48 PM Medication: Versed Amount: 1 mg Route: I.V. Start: 12:48 PM Stop: 12:48 PM Medication: Fentanyl Amount: 25 mcg Route: I.V. Start: 1:13 PM Stop: 1:13 PM Medication: Hydralazine Amount: 10 mg Route: I.V. Start: 1:15 PM Stop: 1:15 PM Medication: Versed Amount: 1 mg Route: I.V. Start: 1:28 PM Stop: 1:28 PM Medication: Versed Amount: 1 mg Route: I.V. Start: 1:28 PM Stop: 1:28 PM Medication: Fentanyl Amount: 25 mcg Route: I.V. Start: 1:35 PM Stop: 1:35 PM Medication: Versed Amount: 1 mg Route: I.V. Start: 1:35 PM Stop: 1:35 PM Medication: Fentanyl Amount: 25 mcg Route: I.V. Start: 1:47 PM Stop: 1:47 PM Medication: Versed Amount: 1 mg Route: I.V. Start: 1:47 PM Stop: 1:47 PM Medication: Fentanyl Amount: 25 mcg Route: I.V. Start: 2:04 PM Stop: 2:04 PM Medication: Versed Amount: 1 mg Route: I.V. Start: 2:04 PM Stop: 2:04 PM Medication: Fentanyl Amount: 25 mcg Route: I.V. Start: 2:08 PM Stop: 2:08 PM Medication: Heparin Amount: 5000 units Route: I.V. Start: 2:20 PM Stop: 2:20 PM Medication: Versed Amount: 1 mg Route: I.V. Start: 2:20 PM Stop: 2:20 PM Medication: Fentanyl Amount: 25 mcg Route: I.V. Start: 2:22 PM Stop: 2:22 PM Medication: Nitrogylcerin Amount: 400 mcg Route: I.A. Start: 2:35 PM Stop: 2:35 PM Medication: Versed Amount: 1 mg Route: I.V. Start: 2:35 PM Stop: 2:35 PM Medication: Fentanyl Amount: 25 mcg Route: I.V. Start: 2:39 PM Stop: 2:39 PM Medication: Fentanyl Amount: 25 mcg Route: I.V. Start: 2:41 PM Stop: 2:41 PM Medication: Heparin Amount: 3000 units Route: I.V. Start: 2:42 PM Stop: 2:42 PM Medication: Fentanyl Amount: 25 mcg Route: I.V. I, the attending physician, have reviewed and verified all procedure medications. Yes, all medications given per verbal order History/Risk Factors Hypertension: Yes Dyslipidemia: No Peripheral Arterial Disease (PAD): Yes Obesity: Yes Renal Disease: No Tobacco Use: Never Prior Interventions PCI: No CABG: No Valve Surgery: No Report Signatures Finalized by Harry Bryant MD on 10/31/2021 12:08 PM
--- NOTE | 2021-10-19 12:21 | W.PM.OPSUD ---
Surgery/Procedure H&P Update DATE OF PROCEDURE: October 19, 2021 DATE H&P PERFORMED: 10/10/21 H&P UPDATE INFORMATION: I have reviewed H&P completed within last 30 days, I have examined patient prior to procedure and No changes to prior documentation PREOP DIAGNOSIS: Non healing ulcers of right lower extremity/ Peripheral artery disease PRIMARY INDICATION FOR PROCEDURE: Non healing ulcers of right lower extremity/ Peripheral artery disease PLANNED PROCEDURE: Operation Date: 10/19/21 12:00 Proposed Procedures p Peripheral Diagnostic(Bilateral) - Harry Bryant M.D Possible percutaneous intervention of right lower extremity PATIENT REASSESSED PRIOR TO SEDATION, WITH NO CHANGE NOTED: Yes PHYSICAL EXAM: alert, oriented x 3, clear to auscultation bilaterally and regular rate & rhythm AIRWAY EVAL/ANESTHESIA PLAN: normal airway, ASA III, Monitored Anesthesia, Local Anesthesia, Risks, benefits & alternatives of sedation and/or procedure discussed and Patient agrees to continue as planned
[2021-10-19] MEDS: sodium chloride 0.9% 1,000 ML 100 ML IV (15:20)
[2021-10-19 17:00] LABS: Glucose Point of Care 201 mg/dL (70-110)
[2021-10-19] MEDS: saline nasal spray 44mL Btl 1 SPRAY NASAL (17:31)
[2021-10-19] MEDS: aspirin 81 mg EC Tablet PO (17:32)
[2021-10-19] MEDS: insulin lispro 100 unit/1 mL SUBCUT ×2 (17:32→20:25)
[2021-10-19 18:03] LABS: Partial Thromboplastin Time 161.2 SECONDS (23.9-36.7)
--- NOTE | 2021-10-19 18:37 | PC.NURSE ---
received from cardiac poultry farm laborer at 1520.report received.pt is awake and alert.denies pain.sr on monitor.vss.left femoral sheath intact to pressurized system.dressing is dry and intact.no hematoma noted.all le pulses dopplerable except for right pt..poultry farm laborer aware.warm pack applied to rle.pt and cg instructed in activity restrictions..and instructed to notify staff for any bleeding,pain,numbness,chest pain...or for any concerns at all.pt and cg vrb understanding of instructions.
--- NOTE | 2021-10-19 18:55 | PC.NURSE ---
at 1630 ,dopplerable right pt pulse noted.
--- NOTE | 2021-10-19 18:55 | PC.NURSE ---
ptt at 1755 reported by lab as critical at 161.2.small amt of blood noted oozing from left femoral sheath site.dressing applied.dr salmeron notified of lab and status.will continue to observe closely and recheck ptt at 2000
--- NOTE | 2021-10-19 19:03 | PC.NURSE ---
Received report from REESE Ladd. Patient is s/p peripheral angiogram via left groin. Noted oozing to dressing. No s/s of hematoma to site. Patient denies pain at this time. Instructed patient on pending lab draw for PTT. He and his verbalized complete understanding. Doppled lower extremity pulses present. No distress observed. Will continue to monitor.
[2021-10-19 19:58] LABS: Glucose Point of Care 237 mg/dL (70-110)
[2021-10-19 20:45] LABS: Partial Thromboplastin Time 30.8 SECONDS (23.9-36.7)
[2021-10-19] MEDS: temazepam 15 mg Capsule PO (21:06)
--- NOTE | 2021-10-19 21:38 | PC.NURSE ---
Instructed patient on sheath removal s/p peripheral angiogram. Patient verbalized understanding. Initiated sheath removal at 2114 per protocol. Hemostasis achieved immediately. Maintained pressure for 20min. VS remained WNL. No s/s of bleeding or hematoma formation observed. Covered site with 2x2 and occlusive dressing. Instructed patient on site care and restrictions. Patient again verbalized understanding. Will continue to monitor.
[2021-10-20] VITALS (15 sets, daily range): BP systolic 119–153; BP diastolic 72–80; PULSE 86–90; RESP 12–28; TEMP 36.6; O2SAT 90–96
[2021-10-20] MEDS: sodium chloride 0.9% 1,000 ML 100 ML IV (01:22)
--- NOTE | 2021-10-20 03:32 | PC.NURSE ---
Patient up to ambulate. Dressing to left groin remains c,d,i with no s/s of bleeding or hematoma formation observed. Patient denies pain to site. Does c/o mild discomfort to right lower extremity. Bilateral extremities warm to touch with doppled pulses. Pedal pulse to right foot faint but palpable. Instructed patient on site care and restrictions. Patient verbalized complete understanding. No distress observed. Will continue to monitor.
[2021-10-20 05:16] LABS: Basophils # 0.1 10^3/uL (0.0-0.1); Eosinophils # 0.3 10^3/uL (0.0-0.8); Eosinophils % 2.8 %; Hematocrit 41.2 % (42.0-52.0); Hemoglobin 12.4 g/dL (11.7-16.6); Lymphocytes # 2.5 10^3/uL (0.8-4.8); Lymphocytes % 24.5 %; Mean Corpuscular HGB Conc 30.1 g/dL (30.0-36.0); Mean Corpuscular Hemoglobin 27.9 pg (28.0-34.0); Mean Corpuscular Volume 92.8 fl (80-94); Mean Platelet Volume 9.9 fL (7.4-10.4); Monocytes # 0.6 10^3/uL (0.2-0.9); Monocytes % 5.8 %; Neutrophils # 6.55 10^3/uL (1.8-7.7); Neutrophils % 65.6 %; Nucleated Red Blood Cells % 0 %; Platelet Count 238 10^3/cmm (130-400); Red Blood Count 4.44 10^6/uL (4.1-5.3); Red Cell Distribution Width 13.7 % (12.1-15.1)
[2021-10-20 05:40] LABS: Anion Gap 15.6 (5-19); Blood Urea Nitrogen 42 mg/dL (8-23); Calcium 8.5 mg/dL (8.5-10.5); Carbon Dioxide 26 mmol/L (22-29); Chloride 105 mmol/L (98-107); Glomerular Filtration Rate 37.6 mL/min (90-130); Glucose 257 mg/dL (65-115); Osmolality Calculated 313 mOsm/kg (285-295); Potassium 4.6 mmol/L (3.5-5.1); Sodium 142 mmol/L (136-145)
[2021-10-20 06:17] LABS: Glucose Point of Care 231 mg/dL (70-110)
--- NOTE | 2021-10-20 06:27 | PC.NURSE ---
Shift Note Frequent safety and comfort rounds continue. Orders and/or nursing care completed as indicated. Patient monitored for response to intervention and treatment(s). Education provided includes post procedure site care and restrictions. Patient verbalized complete understanding. Dressing to left groin remains c,d,i with no s/s of bleeding or hematoma formation observed. Patient denies pain or needs. No distress observed. Will continue to monitor.
--- NOTE | 2021-10-20 07:31 | PC.NURSE ---
received report, assumed care of pt, no needs identified at this time.
[2021-10-20] MEDS: clopidogrel 75 mg Tablet PO (08:45)
[2021-10-20] MEDS: insulin lispro 100 unit/1 mL SUBCUT (08:46)
[2021-10-20] MEDS: gabapentin 100 mg Capsule PO (08:46)
[2021-10-20] MEDS: aspirin 81 mg EC Tablet PO (08:46)
--- NOTE | 2021-10-20 09:22 | PM.SDS ---
Short Stay Summary Providers Date of Admit/Discharge: 10/19/21 Attending Provider: Harry Bryant M.D Primary Care Provider: Beatriz Brady Chief Complaint: 07171 i73.9Peripheral vascular disease, unspecifie HPI History of Present Illness 71-year-old man with past medical history of ischemic cardiomyopathy, peripheral artery disease and diabetes has been referred by Dr. Moraes for evaluation regarding percutaneous intervention of his right SFA.? Patient had right SFA occlusion and revascularization in the past.? He has nonhealing ulcers and Doppler ultrasound reveals occluded mid SFA with collateral filling to the popliteal artery.? Patient planned to undergo peripheral angiogram Review of Systems Const: Denies: fever(s), chills, change in weight, fatigue or diaphoresis Eyes: Denies: change in vision or eye redness ENMT: Denies: throat pain, odynophagia, mouth pain or epistaxis Card: Reports: palpitations (occasionally), irregular heart rhythm (occasionally) and swelling of feet/ankles (improved); Denies: chest pain, edema, lightheadedness, syncope, pre-syncope, dyspnea on exertion, orthopnea or leg pain with exertion Resp: Denies: dyspnea, productive cough or wheezing GI: Denies: nausea, vomiting, hematemesis, hematochezia or melena : Denies: hematuria Musc: Denies: extremity swelling or joint pain Skin/Breast: Denies: rash, pruritus, erythema or new lesions Neuro: Reports: weakness in extremities; Denies: numbness in extremities, sensory changes, frequent falls, dizziness, Slurred speech present or difficulty communicating thoughts Psych: Denies: anxiety, depression, irritability, suicidal ideation or homicidal ideation Endo: Denies: polyuria, polydipsia or excessive sweating Zeb/Lymph: Reports: easy bruising and easy bleeding Home Meds/Allergies Home Medications and Allergies Home Medications Medication Instructions Recorded Confirmed Type garlic 1,000 mg capsule 1,000 mg PO DAILY 08/31/19 10/29/21 History vitamin B complex (B 1 tab PO DAILY 08/31/19 10/29/21 History Complex-Vitamin B12) multivitamin 1 tab PO DAILY #0 06/12/20 10/29/21 History resveratrol 1 tab PO DAILY 06/12/20 10/29/21 History nitroglycerin 0.4 mg sublingual 0.4 mg SUBLINGUAL Q2M PRN 08/08/20 10/29/21 History tablet insulin detemir U-100 100 unit/mL 38 unit SUBCUT QAM ml 08/22/20 10/29/21 History subcutaneous solution (Levemir U-100 Insulin) gabapentin 100 mg capsule 100 mg PO DAILY 09/14/21 10/29/21 History furosemide 40 mg tablet 100 mg PO DIRECTED tab 09/25/21 10/29/21 History Allergies Allergy/AdvReac Type Severity Reaction Status Date / Time Penicillins Allergy Severe Throat Verified 10/29/21 09:47 swells ciprofloxacin Allergy hallucinations Verified 10/29/21 09:47 and burning sensation in legs PFSH Acute PFSH: Medical History Amputation toe Atherosclerosis of coronary artery Diabetes HTN (hypertension) Kidney stone Surgical History S/P cataract extraction S/P cholecystectomy S/P tonsillectomy Family History Father Cancer LUNG Mother CAD (coronary artery disease) Diabetes CHF (congestive heart failure) Myocardial infarction Social History Smoking and tobacco status: never smoked Alcohol intake: never Household members: spouse Marital status: Current occupational status: retired Vitals/I&O/Wt Last Vital Signs Temp 98.0 F 10/19/21 08:04 Pulse 89 10/20/21 04:17 Resp 27 H 10/20/21 03:00 BP 122/72 10/20/21 03:30 Pulse Ox 96 10/20/21 09:06 10/19/21 10/20/21 10/20/21 22:59 06:59 14:59 Intake Total 1440 / 1440 1000 / 2440 Output Total 950 / 950 Balance 490 / 490 1000 / 1490 Weight last 48 hrs Weight 220 lb Physical Exam Const: COMMON NORMALS: no acute distress and patient oriented x3 Resp: COMMON NORMALS: normal respiratory effort, No retractions, No use of accessory muscles and clear to auscultation bilaterally AUSCULTATION: clear to auscultation bilaterally Cardio: COMMON NORMALS: regular rate, regular rhythm, S1 normal heart sound present and S2 normal heart sound present RATE: regular rate RHYTHM: regular rhythm HEART SOUNDS: S1 normal heart sound present and S2 normal heart sound present GI: COMMON NORMALS: Normal to inspection, nondistended, normoactive bowel sounds present, Soft to palpation and No hepatosplenomegaly present PALPATION: Yes Soft to palpation and Yes No hepatosplenomegaly present Extremity: NARRATIVE EXTREMITY EXAM: Pulses are weak in right lower extremity Neuro: COMMON NORMALS: patient oriented x3 Hospital Course Hospital Course 71-year-old man with past medical history of ischemic cardiomyopathy, peripheral artery disease and diabetes has been referred by Dr. Moraes for evaluation regarding percutaneous intervention of his right SFA.? Patient had right SFA occlusion and revascularization in the past.? He has nonhealing ulcers and Doppler ultrasound reveals occluded mid SFA with collateral filling to the popliteal artery.?Patient underwent peripheral angiogram yesterday that showed occluded ostial SFA with reconstitution of TP segement. Blow the knee patient has poor run off with mainly collateral filling. Successful revascularization was performed with balloon angioplasty. Patient was observed overnight and went home in a stable condition. SSS Data Data Completed and Pending: Pending at discharge Category Date Time Status NEWS EDITOR request for service Routin e Exams 10/19/21 07:30 Taken Discharge Plan Discharge Patient Disposition: Home Condition: Stable Prescriptions: New aspirin 81 mg Tablet,Delayed Release (Dr/Ec) 81 mg PO DAILY Qty: 90 2RF Continued nitroglycerin 0.4 mg tablet, sublingual 0.4 mg sublingual Q2M PRN (Reason: Pain) 0RF gabapentin 100 mg capsule 100 mg PO DAILY 0RF Rx Instructions: TITRATING TO TID vitamin B complex [B Complex-Vitamin B12] Tablet 1 tab PO DAILY 0RF garlic 1,000 mg capsule 1,000 mg PO DAILY 0RF Levemir U-100 Insulin 100 unit/mL solution 38 unit SUBCUT QAM 0RF clopidogrel 75 mg tablet 75 mg PO DAILY Qty: 90 4RF multivitamin Tablet 1 tab PO DAILY Qty: 0 0RF resveratrol 1 tab PO DAILY 0RF Held furosemide 40 mg tablet 100 mg PO DIRECTED 0RF Hold Instructions: Resume on 10/21/21. Rx Instructions: 60mg in AM and 40mg in PM Discharge Orders: Discharge Order (Routine); Ordered 10/20/21 Ordered By: Harry Bryant Referrals: Fatou Stewart FNP [Nurse Practitioner] - 7-10 days ([facility] will contact you to schedule an follow-up with Fatou Stewart in 7 to 10 days. If you haven't heard from them by Friday. Please call ) Christin Esquivel MD [Physician] - 1 month ([facility] will contact you to schedule an follow-up appointment with Dr. Esquivel. If you haven't heard from them by Friday. Please call ) Discharge Diet: Cardiac Discharge Activity: Increase activity as tolerated Patient Instructions: Aspirin (By mouth), Peripheral Vascular Angioplasty (DC), Opioid Safety, Post Angiogram Home Care Instructions Activity Restrictions/Additional Instructions: Please do not lift more than 5 pounds of weight for the next 5 days Attestations Medical Necessity Statement*: Care not expected to cross 2 midnights. Time Spent in Patient Care*: less than 30 min Status at Discharge: Cognitive status at discharge: cognitively intact, Behavioral status at discharge: cooperative, Quality Metrics Clinical Quality Measures: [ No reported AMI, CVA or VTE this stay] Coding Level of Care Code Acute Behavioral Health Worker for Abdirizak Zhou
--- NOTE | 2021-10-20 12:19 | PC.NURSE ---
dc'd pts piv. catheter intact. discharge instructions given. pt and verbalized understanding and have no further questions. pt left via wheelchair to private vehicle.
== END 2021-10-20 11:00 | disposition home or self-care (01) ==
LOC: CSU 13:12
PROVIDERS: Admitting Provider Internal Medicine; PCP Physician Assistant; Visit Provider Internal Medicine
DX: I73.9 Peripheral vascular disease, unspecified (principal); I25.5 Ischemic cardiomyopathy; I25.10 Atherosclerotic heart disease of native coronary artery without angina pectoris; I10 Essential (primary) hypertension; Z79.4 Long term (current) use of insulin; L98.499 Non-pressure chronic ulcer of skin of other sites with unspecified severity; E11.42 Type 2 diabetes mellitus with diabetic polyneuropathy
CPT/HCPCS: 36415; 36416; 37224; 75625; 75710; 80048; 82962; 85025; 85610; 85730; 96372; C1725; C1769; C1773; C1887; C1894; G0378; J0360; J1644; J1815; J2250; J3010; J3490; J7030; Q9967

== ENCOUNTER → 2021-10-24 08:58 | Outpatient (BNVA) | payer MEDICARE, SELFPAY | PROVIDERS: PCP Physician Assistant; Visit Provider Thoracic Surgery (Cardiothoracic Vascular Surgery) | DX: I73.9 Peripheral vascular disease, unspecified (principal); I87.2 Venous insufficiency (chronic) (peripheral); L97.311 Non-pressure chronic ulcer of right ankle limited to breakdown of skin; L97.811 Non-pressure chronic ulcer of other part of right lower leg limited to breakdown of skin; L97.821 Non-pressure chronic ulcer of other part of left lower leg limited to breakdown of skin | CPT/HCPCS: 97597 ==

== ENCOUNTER → 2021-10-29 11:09 | Outpatient (BNVA) | payer MEDICARE, SELFPAY | PROVIDERS: PCP Physician Assistant; Visit Provider Nurse Practitioner Family | DX: I73.9 Peripheral vascular disease, unspecified (principal) | CPT/HCPCS: 36415; 80048; 99213; 99214 ==

== ENCOUNTER → 2021-10-31 08:54 | Outpatient (BNVA) | payer MEDICARE, SELFPAY | PROVIDERS: PCP Physician Assistant; Visit Provider Thoracic Surgery (Cardiothoracic Vascular Surgery) | DX: I87.2 Venous insufficiency (chronic) (peripheral) (principal); I73.9 Peripheral vascular disease, unspecified; L97.311 Non-pressure chronic ulcer of right ankle limited to breakdown of skin; L97.811 Non-pressure chronic ulcer of other part of right lower leg limited to breakdown of skin; L97.821 Non-pressure chronic ulcer of other part of left lower leg limited to breakdown of skin | CPT/HCPCS: 97597 ==

== ENCOUNTER → 2021-11-07 08:22 | Outpatient (BNVA) | payer MEDICARE, SELFPAY | PROVIDERS: PCP Physician Assistant; Visit Provider Thoracic Surgery (Cardiothoracic Vascular Surgery) | DX: I87.2 Venous insufficiency (chronic) (peripheral) (principal); I73.9 Peripheral vascular disease, unspecified; L97.311 Non-pressure chronic ulcer of right ankle limited to breakdown of skin; L97.811 Non-pressure chronic ulcer of other part of right lower leg limited to breakdown of skin; L97.821 Non-pressure chronic ulcer of other part of left lower leg limited to breakdown of skin | CPT/HCPCS: 97597 ==

== ENCOUNTER → 2021-11-14 08:05 | Outpatient (BNVA) | payer MEDICARE, SELFPAY | PROVIDERS: PCP Physician Assistant; Visit Provider Thoracic Surgery (Cardiothoracic Vascular Surgery) | DX: I87.2 Venous insufficiency (chronic) (peripheral); I73.9 Peripheral vascular disease, unspecified; L97.821 Non-pressure chronic ulcer of other part of left lower leg limited to breakdown of skin; Z09 Encounter for follow-up examination after completed treatment for conditions other than malignant neoplasm | CPT/HCPCS: 99212 ==

== ENCOUNTER → 2022-01-14 13:45 | Outpatient (BNVA) | payer MEDICARE, SELFPAY | PROVIDERS: PCP Physician Assistant; Visit Provider Internal Medicine | DX: I73.9 Peripheral vascular disease, unspecified (principal); E11.42 Type 2 diabetes mellitus with diabetic polyneuropathy; I10 Essential (primary) hypertension; L98.499 Non-pressure chronic ulcer of skin of other sites with unspecified severity; Z79.4 Long term (current) use of insulin | CPT/HCPCS: 99214 ==

== ENCOUNTER 2022-04-18 06:41 | Outpatient (CLI) | payer MEDICARE, SELFPAY ==
--- NOTE | 2022-04-18 07:13 | CT_ITS ---
WS: [id number] CT CHEST TECHNIQUE: Noncontrast CT of the chest with coronal and sagittal reformatted images. CLINICAL INFORMATION: LEFT PLEURAL EFFUSION COMPARISON: None. DLP: 929.[address] scans at [facility] use at least one of these dose optimization techniques: automated e xposure control; mA and/or kV adjustment per patient size (includes targeted exams where dose is matc hed to clinical indication); or iterative reconstruction. FINDINGS: Small to moderate LEFT pleural effusion with compressive atelectasis LEFT lower lobe. Volume loss LEF T lung. Pleural effusion is similar to April 15, 2022. LEFT upper lobe is well aerated. RIGHT pattie g is well aerated. No pulmonary infiltrates in the RIGHT lung. Normal caliber thoracic aorta. Coronary calcification. Aortic calcification. No mediastinal or hilar lymphadenopathy. No axillary lymphadenopathy. Cholecystectomy clips. Small esophageal hiatal hernia. Hypertrophic changes thoracic spine.No axillar y lymphadenopathy. CT/CT chest wo con [id number] IMPRESSION: 1. Small to moderate LEFT pleural effusion with compressive atelectasis LEFT l ower lobe. Recommend correlation for pneumonia. Pleural fluid appears similar t o April 15, 2022 radiograph. 2. RIGHT lung is well aerated. 3. No mediastinal or hilar lymphadenopathy. 4. Vascular calcification including coronary. 5. Cholecystectomy clips. 6. No other acute findings.
== END 2022-04-18 06:42 | disposition home or self-care (01) ==
PROVIDERS: PCP Physician Assistant; Visit Provider Physician Assistant
DX: J90 Pleural effusion, not elsewhere classified (principal); Z90.49 Acquired absence of other specified parts of digestive tract
CPT/HCPCS: 71250

== ENCOUNTER 2022-05-09 11:11 | Day surgery (SDC) | payer MEDICARE, SELFPAY ==
[2022-05-08 11:19] VITALS: BMI 30.7
--- NOTE | 2022-05-09 11:16 | US_ITS ---
WS: [id number] Ultrasound LEFT thorax. HISTORY: Patient presents for possible LEFT thoracentesis. COMPARISON: Chest CT 04/18/2022 and chest radiograph 04/15/2022 are reviewed. There is a small LEFT pleural effusion identified. There is pleural thickening and mobile lung is not ed within the fluid. Patient understands the risks associated with a thoracentesis. Due to the small size of the thoracent esis patient has declined at this time in order for other imaging and evaluation prior to an invasive procedure. I have explained in detail the procedure with the wrist to the patient and his . US/US chest [id number] IMPRESSION: 1. Small LEFT pleural effusion with mobile atelectatic lung within the effusion . At this time patient has elected not to proceed with thoracentesis due to the r isk. 2. Suggest additional evaluation of the lungs. Chest CT with IV contrast would be helpful. Follow-up with pulmonology and possible bronchoscopy may be helpful to determine etiology of this fluid.
[2022-05-09 11:32] VITALS: BP 206/119; PULSE 91; RESP 16; TEMP 36.1; O2SAT 98
[2022-05-09 11:42] LABS: Glucose Point of Care 177 mg/dL (70-110)
[2022-05-09 11:56] LABS: INR 0.97 (0.8-1.2)
== END 2022-05-09 12:30 | disposition home or self-care (01) ==
PROVIDERS: Radiology Diagnostic Radiology; PCP Physician Assistant; Visit Provider Physician Assistant
DX: J90 Pleural effusion, not elsewhere classified (principal)
CPT/HCPCS: 36415; 36416; 76604; 82962; 85610

== ENCOUNTER → 2022-06-03 11:48 | Outpatient (BNVA) | payer MEDICARE, SELFPAY | PROVIDERS: PCP Physician Assistant; Visit Provider Internal Medicine Pulmonary Disease | DX: J90 Pleural effusion, not elsewhere classified (principal); I25.5 Ischemic cardiomyopathy; J98.6 Disorders of diaphragm; I50.20 Unspecified systolic (congestive) heart failure; J98.11 Atelectasis | CPT/HCPCS: 99204 ==

== ENCOUNTER 2022-06-11 14:38 | Outpatient (CLI) | payer MEDICARE, SELFPAY ==
--- NOTE | 2022-06-11 15:02 | XRR_ITS ---
PROCEDURE INFORMATION: Exam: XR Chest Exam date and time: 06/11/2022 3:02 PM Age: 72 years old Clinical indication: Condition or disease; Lung condition and disease; Pleural effusion; Other: Not specified; Prior surgery; Surgery type: Heart stent, gb, kidney; Additional info: Follow up pleural effusion TECHNIQUE: Imaging protocol: Radiologic exam of the chest. Views: 2 views. COMPARISON: CR XR chest 2V* [id number] 05/30/2022 11:53 AM FINDINGS: Lungs: Linear bibasilar atelectasis or scarring. No new or worsening consolidation. Pleural spaces: Similar appearance of a small to moderate volume left pleural effusion. No pneumothorax. Heart/Mediastinum: Similar cardiomegaly. Bones/joints: Visualized osseous structures are intact. XR/XR chest 2V* [id number] IMPRESSION: Similar appearance of a small to moderate volume left pleural effusion.
== END 2022-06-11 14:39 | disposition home or self-care (01) ==
LOC: RAD 14:40
PROVIDERS: PCP Physician Assistant; Visit Provider Internal Medicine Pulmonary Disease
DX: J98.6 Disorders of diaphragm (principal); J90 Pleural effusion, not elsewhere classified
CPT/HCPCS: 71046

== ENCOUNTER 2022-06-17 09:56 | Day surgery (SDC) | payer MEDICARE, SELFPAY ==
[2022-06-14 09:12] VITALS: BMI 30.4
[2022-06-17 10:33] LABS: Glucose Point of Care 112 mg/dL (70-110)
[2022-06-17 10:34] VITALS: BP 155/88; PULSE 84; RESP 18; TEMP 36.6; O2SAT 95
[2022-06-17] MEDS: sodium chloride 0.9% 1,000 ML 30 ML IV (10:35)
--- NOTE | 2022-06-17 10:48 | P.ANESASSM_ITS ---
Pre-Anesthetic Assessment Height/Weight: Height 1.8 m Weight 98.883 kg Temp Pulse Resp BP Pulse Ox O2 Del Method 97.8 F 84 18 155/88 95 06/17/22 10:34 06/17/22 10:34 06/17/22 10:34 06/17/22 10:34 06/17/22 10:34 06/17/22 10:34 Preop Diagnosis: Non healing ulcers of right lower extremity/ Peripheral artery disease Operation Date: 06/17/22 15:00 Proposed Procedures p bronchoscopy; 47834, 35379, 60880, 90193 J98.1(Not Applicable) - Wilfredo Mejía MD s Thoracentesis(Not Applicable) - Wilfredo NolascorMD Familial anesthetic complications: PONV Was Beta Alexey taken within 24 hours: N/A Was Clonidine taken within 24 hours: N/A Last intake: Intake Last Liquid Date 06/16/22 Last Liquid Time 22:00 Last Solid Date 06/16/22 Last Solid Time 20:30 Social No alcohol and No tobacco Exam alert, oriented x 3, clear to auscultation bilaterally (coarse breath sounds b/l ) and regular rate & rhythm Airway Mallampati: Class II Dentition: false Pulmonary L pleural effusion CV/HEM Arrythmia (hx a flutter), Coronary Artery Disease, Congestive Heart Failure (Ischemic cardiomyopathy - EF 40-45% with grade I diastolic dysfunction on 12/22 echo), Hypertension and Peripheral Vascular Disease Metabolic Diabetes Mellitus, Hyperlipidemia and Thyroid Disease Anesthetic Plan ASA status: 4 Anesthesia: General Risk of > 500 ml blood loss (7ml/kg in children): No Medications/Allergies Home Medications Medication Instructions Recorded Confirmed Last Taken Type garlic 1,000 mg capsule 1,000 mg PO DAILY 08/31/19 06/14/22 06/14/22 History multivitamin 1 tab PO DAILY ##0 06/12/20 06/14/22 06/14/22 History nitroglycerin 0.4 mg sublingual 0.4 mg sublingual Q2M PRN Pain 08/08/20 06/14/22 1 Year Ago History tablet ~06/14/21 insulin detemir U-100 100 unit/mL 38 unit SUBCUT QAM 08/22/20 06/14/22 06/14/22 History subcutaneous solution (Levemir U-100 Insulin) furosemide 40 mg tablet 40 mg PO DIRECTED 09/25/21 06/14/22 06/14/22 History aspirin 81 mg tablet,delayed 81 mg PO DAILY #90 tabs 10/20/21 06/14/22 06/14/22 Rx release cardio for life 1 dose PO DAILY 01/14/22 06/14/22 06/14/22 History potassium chloride 10 mEq 10 meq PO DAILY #30 tabs 06/03/22 06/14/22 06/14/22 Rx tablet,extended release levothyroxine 100 mcg tablet 100 mcg PO DAILY 06/14/22 06/14/22 06/14/22 History tramadol 50 mg tablet 50 mg PO PRN PRN Pain 06/14/22 06/14/22 06/14/22 History Allergies Allergy/AdvReac Type Severity Reaction Status Date / Time Penicillins Allergy Severe Throat Verified 06/14/22 09:06 swells azithromycin Allergy ADR/ALGY-Pa Verified 06/14/22 09:06 lpitations ciprofloxacin Allergy hallucinations Verified 06/14/22 09:06 and burning sensation in legs [facility] Anesthesia Medical History Amputation toe Atherosclerosis of coronary artery Diabetes HTN (hypertension) Kidney stone Surgical History S/P cataract extraction S/P cholecystectomy S/P tonsillectomy Family History Father Cancer LUNG Mother CAD (coronary artery disease) Diabetes CHF (congestive heart failure) Myocardial infarction Social History Smoking and tobacco status: never smoked Alcohol intake: never Household members: spouse Marital status: Current occupational status: retired Data Anesthesia : 06/17/22 10:25 06/17/22 10:25 Cardiac Studies: Echocardiogram Ultrasound 12/20/20 Sestamibi Stress Test (Cardiology) 07/06
[2022-06-17 10:49] LABS: Basophils # 0.1 10^3/uL (0.0-0.1); Basophils % 0.9 %; Eosinophils # 0.4 10^3/uL (0.0-0.8); Eosinophils % 3.2 %; Hematocrit 44.5 % (42.0-52.0); Lymphocytes # 4.4 10^3/uL (0.8-4.8); Lymphocytes % 38.1 %; Mean Corpuscular HGB Conc 31.5 g/dL (30.0-36.0); Mean Corpuscular Hemoglobin 30.3 pg (28.0-34.0); Mean Corpuscular Volume 96.3 fl (80-94); Mean Platelet Volume 9.3 fL (7.4-10.4); Monocytes # 0.5 10^3/uL (0.2-0.9); Monocytes % 4.4 %; Neutrophils # 6.15 10^3/uL (1.8-7.7); Neutrophils % 53.1 %; Nucleated Red Blood Cells % 0 %; Platelet Count 329 10^3/cmm (130-400); Red Blood Count 4.62 10^6/uL (4.1-5.3); Red Cell Distribution Width 12.4 % (12.1-15.1); White Blood Count 11.6 10^3/uL (4.0-10.0)
[2022-06-17 10:51] LABS: Slide Review Slide Review Perform
[2022-06-17 11:13] LABS: Alanine Aminotransferase 17 U/L (0-41); Albumin Level 3.6 g/dL (3.5-5.2); Alkaline Phosphatase 99 U/L (40-130); Anion Gap 10.5 (5-19); Aspartate Amino Transferase 26 U/L (0-40); Blood Urea Nitrogen 41 mg/dL (8-23); Calcium 8.9 mg/dL (8.5-10.5); Carbon Dioxide 33 mmol/L (22-29); Chloride 98 mmol/L (98-107); Globulin 3.4 g/dL (1.3-4.6); Glomerular Filtration Rate 33.2 mL/min (90-130); Glucose 118 mg/dL (65-115); Osmolality Calculated 295 mOsm/kg (285-295); Potassium 4.5 mmol/L (3.5-5.1); Sodium 137 mmol/L (136-145); Total Bilirubin 0.3 mg/dL (0.15-1.2)
--- NOTE | 2022-06-17 12:10 | W.PM.OPSUD ---
Surgery/Procedure H&P Update DATE OF PROCEDURE: June 17, 2022 DATE H&P PERFORMED: 06/03/22 CHANGES TO PREVIOUS DOCUMENTATION: None PREOP DIAGNOSIS: Non healing ulcers of right lower extremity/ Peripheral artery disease PRIMARY INDICATION FOR PROCEDURE: Persistent left hemidiaphragm elevation with [id number] left pleural effusion causing compressive atelectasis of left lower lobe-bronchoscopic evaluation to check for any endobronchial lesions PLANNED PROCEDURE: Operation Date: 06/17/22 15:00 Proposed Procedures p bronchoscopy; 99039, 95949, 71710, 15315 J98.1(Not Applicable) - Wilfredo Mejía MD s Thoracentesis(Not Applicable) - Wilfredo Mejía MD
[2022-06-17] MEDS: lidocaine 1% INJ 20 mL MDV (mL) XX (12:35)
[2022-06-17 13:03] VITALS: BP 115/69; PULSE 80; RESP 16; TEMP 36.3; O2SAT 96
[2022-06-17 13:08] VITALS: BP 138/74; PULSE 80; RESP 18; O2SAT 100
[2022-06-17 13:13] VITALS: BP 129/73; PULSE 89; RESP 18; O2SAT 96
--- NOTE | 2022-06-17 13:41 | XR_ITS ---
WS: [id number] Exam: XR chest 1V portable [id number] Date/Time of Exam: 06/17/2022 2:01 PM Reason For Exam: post bronch Comparison 06/11/2022. Moderate size left basal pleural effusion noted unchanged. Heart size is top limits normal. No pneumo thorax. The mediastinum is normal in contour. Regional bony structures are intact. XR/XR chest 1V portable [id number] IMPRESSION: 1. Left basal pleural effusion unchanged. No other significant finding.
--- NOTE | 2022-06-17 13:45 | ANE.PACU2 ---
Inpatient post-anesthesia follow up: Airway intact: Yes Vital signs: Temperature 97.4 F Pulse Rate 89 Respiratory Rate 18 Blood Pressure 129/73 Pulse Oximetry 96 Oxygen Delivery Me thod Nasal Cannula Oxygen Flow Rate 3 Fraction of Inspir ed Oxygen Hydration adequate: Yes Nausea and vomiting: No Pain level: 1 Mental status: Baseline
--- NOTE | 2022-06-17 13:46 | P.OP_ITS ---
Operative Report Date of procedure: June 17, 2022 Pre-op diagnosis: Preop Diagnosis chronic left lower lobe atelectasis with pleural effusion and elevated left hemidiaphragm-suspect endobronchial obstruction Post-op diagnosis: Intrinsic endobronchial obstruction in left lower lobe secondary to significant mucosal wall edema Post-op findings: Mucopurulent secretions in bilateral tracheobronchial tree, intrinsic endobronchial obstruction in left lower lobe secondary to significant mucosal wall edema Procedure done: 99956 Bronch via Trach site 29338 Dx Bronchoscope w/Washings or airway inspection 48266 Dx Bronchoscope w/BAL 38994 Dx Bronchoscopy w/Bronchial or Endobronchial biopsy(s), single or multiple sites 08780 Bronchoscopy w/ therapeutic aspiration of the tracheobronchial tree (clearance of airway secretions, removal of mucus plugs) Surgeon: Wilfredo Mejía MD [facility] Complications: None Brief History: 72-year-old Mr. Usman Alvarez has a past medical history of atrial flutter, diabetes, hypertension, hyperlipidemia, PAD, CHF-presented with symptoms of pneumonia in April-he had a chest x-ray and CT chest which showed consolidation/atelectasis/of left lower lung and [id number] left pleural effusion. He received antibiotics and was reviewed by IR for US guided thoracentesis on 05/09/2022, procedure was aborted due to small left pleural effusion with mobile atelectatic lung with not good enough pocket to tap. Follow-up CT chest 05/30/2022 showed continued consolidation of left lung base and so referred to pulmonary clinic. Patient is scheduled today for ultrasound evaluation of left pleural effusion as well as bronchoscopic evaluation of left lower lobe airways for endobronchial lesions. Procedure: Procedure: 17209 Bronch via Trach site 79902 Dx Bronchoscope w/Washings or airway inspection 04912 Dx Bronchoscope w/BAL 24124 Dx Bronchoscopy w/Bronchial or Endobronchial biopsy(s), single or multiple sites 16073 Bronchoscopy w/ therapeutic aspiration of the tracheobronchial tree (clearance of airway secretions, removal of mucus plugs) Pre-Operative Diagnosis: chronic left lower lobe atelectasis with pleural effusion and elevated left hemidiaphragm-suspect endobronchial obstruction Post-Operative Diagnosis: Intrinsic endobronchial obstruction in left lower lobe secondary to significant mucosal wall edema Indication: Chronic left diaphragm elevation with compressive atelectasis of left lower lobe with possible pleural effusion Anesthesia: Managed as per anesthesia team Pre-procedure Evaluation: Patient was evaluated clinically and ancillary testing reviewed. The risk of having active MTB infection is very low in my clinical judgement. ASA: 3 Consent: Consents were obtained from patient and placed in the chart Procedure Details: Time out was performed by the procedure team and nursing staff. Vent support maintained on Fio2 100. The bronchoscope was introduced through the laryngeal mask airway. A bronchoscopic airway exam was performed to evaluate the visible tracheobronchial tree to the segmental level. Summary of Significant Findings: -Bronchoscope passed through laryngeal mask airway, mobile vocal cords visualized to ml 1% lidocaine instilled on the vocal cords. Bronchoscope was passed into the trachea and noted moderate purulent secretions at the level of main pepe pooling around in both right and left main bronchus. Normal endotracheal mucosa. Instilled 2 mL 1% lidocaine at the level of main pepe, 2 mL each in both mainstem bronchi. After suctioning mucopurulent secretions in the right mainstem bronchus, the scope was passed through the right bronchial tree was assessed to include the RBI, and RUL/RML/RLL bronchi to the segmental and subsegmental levels. All airways were filled with free-flowing mucopurulent secretions which were all suctioned right away. Mucosa appeared normal. After clearing all airways-openings of all subsegments on right side were checked and they appeared patent with no endobronchial obstruction.. Then the scope was left bronchial tree was assessed to include the left mainstem bronchus, LOBITO, Lingula, and LLL bronchi to the segmental and subsegmental level. All airways were filled with free-flowing mucopurulent secretions which were all suctioned right away. After clearing all airways-openings of all subsegments on left side were checked and they appeared patent except opening of left lower lobe airways were edematous causing closure of the airway. 3 samples of endobronchial biopsies were taken and bleeding controlled with cold saline. BAL obtained from Left lower lobe the bronchoscope was then removed and the procedure terminated. Estimated Blood Loss: None Specimens: 1. 20 cc bronchoalveolar lavage was taken from left lower lobe and sent for wash analysis, microbiology cultures, cytology 2. 3 specimens of endobronchial biopsies from left lower lobe were sent in formalin for histopathology Complications:None; patient tolerated the procedure well. Disposition: Patient was extubated and recovering in PACU Wilfredo Mejía MD [facility] Pulmonary critical Care Medicine [facility]
[2022-06-17 13:51] LABS: Glucose Point of Care 109 mg/dL (70-110)
--- NOTE | 2022-06-17 14:07 | PM.MISC ---
Miscellaneous Note Purpose of Documentation: Scheduled for thoracentesis of left pleural effusion-however procedure was aborted secondary to inadequate fluid pocket Note: Prior to doing bronchoscopy-I checked with ultrasound for left pleural effusion -There is small left pleural effusion with atelectatic lung coming close to the diaphragm and there is no safe pocket to drain
[2022-06-17 14:11] VITALS: BP 137/72; PULSE 79; RESP 18; O2SAT 100
[2022-06-17 14:49] LABS: Cyto Order Verification Order Verified
[2022-06-17 14:50] LABS: Apprearance, Bronch Wash Bloody (CLEAR); Color, Bronc Wash Red
[2022-06-17 14:51] LABS: Bronch Source LEFT LOWER LOBE
[2022-06-17 15:38] LABS: Total Cells Counted Bronch 9595
[2022-06-26 15:36] LABS: Miscellaneous Test SEE COMMENTS
== END 2022-06-17 14:46 | disposition home or self-care (01) ==
PROVIDERS: Anesthesiology; PCP Physician Assistant; Visit Provider Internal Medicine Pulmonary Disease
PROC: 0BJ08ZZ Inspection of Tracheobronchial Tree, Via Natural or Artificial Opening Endoscopic (ICD-10-PCS; CPT 31622; principal; 2022-06-17 15:00)
DX: J98.11 Atelectasis (principal); I73.9 Peripheral vascular disease, unspecified; J90 Pleural effusion, not elsewhere classified; I25.10 Atherosclerotic heart disease of native coronary artery without angina pectoris; I11.0 Hypertensive heart disease with heart failure; I50.9 Heart failure, unspecified; E78.5 Hyperlipidemia, unspecified; Z79.82 Long term (current) use of aspirin; E11.621 Type 2 diabetes mellitus with foot ulcer
CPT/HCPCS: 31624; 31625; 36415; 36416; 71045; 80053; 80503; 82962; 85025; 87015; 87070; 87077; 87102; 87116; 87205; 87206; 87801; 88108; 88305; 89050; J2370; J2405; J2704; J7030

== ENCOUNTER 2022-07-19 09:04 | Outpatient (CLI) | payer MEDICARE, SELFPAY ==
--- NOTE | 2022-07-19 09:19 | XRR_ITS ---
PROCEDURE INFORMATION: Exam: XR Chest Exam date and time: 07/19/2022 9:28 AM Age: 72 years old Clinical indication: Condition or disease; Lung condition and disease; Other: Not specified; Prior surgery; Surgery type: Heart stent, gb, lt kidney; Patient HX: SOB, cough, HX pleural effusion TECHNIQUE: Imaging protocol: Radiologic exam of the chest. Views: 2 views. COMPARISON: CR XR chest 1V portable [id number] 06/17/2022 2:17 PM FINDINGS: Lungs: Left base is opacified consistent with a left pleural effusion and left lower lobe atelectasis. This is unchanged. There is increasing subsegmental atelectasis in the right lower lobe. Pleural spaces: Left pleural effusion. No pneumothorax. Heart/Mediastinum: Unremarkable. No cardiomegaly. Bones/joints: Unremarkable. XR/XR chest 2V* [id number] IMPRESSION: 1. Stable left basilar atelectasis and left pleural effusion. 2. Increasing subsegmental atelectasis in the right lung base.
== END 2022-07-19 09:05 | disposition home or self-care (01) ==
PROVIDERS: PCP Physician Assistant; Visit Provider Internal Medicine Pulmonary Disease
DX: J90 Pleural effusion, not elsewhere classified (principal); J98.6 Disorders of diaphragm; J98.11 Atelectasis; I25.5 Ischemic cardiomyopathy; I50.20 Unspecified systolic (congestive) heart failure
CPT/HCPCS: 71046; 99214

== ENCOUNTER 2022-07-24 11:18 | Outpatient (CLI) | payer MEDICARE, SELFPAY ==
--- NOTE | 2022-07-24 11:15 | FL_ITS ---
WS: [id number] Exam: FL sniff test [id number] Date/Time of Exam: 07/24/2022 11:25 AM Reason For Exam: Sniff test for evaluation of diaphragmatic motion performed under fluoroscopic visualization. There were no findings to suggest abnormal diaphragmatic motion during the sniff test. The margin of the left diaphragm was somewhat obscured by consolidation, pleural effusion and atelectasis in the le ft lower lobe. FL/FL sniff test [id number] IMPRESSION: 1. Sniff test demonstrating no obvious abnormal diaphragmatic motion. 2. Consolidation and atelectasis in the left lower lobe and left basal pleural effusion is visualized.
== END 2022-07-24 11:19 | disposition home or self-care (01) ==
LOC: RAD 11:19
PROVIDERS: PCP Physician Assistant; Visit Provider Internal Medicine Pulmonary Disease
DX: J98.6 Disorders of diaphragm (principal)
CPT/HCPCS: 76000

== ENCOUNTER 2022-08-14 09:18 | Outpatient (CLI) | payer MEDICARE, SELFPAY ==
--- NOTE | 2022-08-14 09:30 | FL_ITS ---
WS: [id number] FL barium swallow [id number] REASON FOR EXAM: CHRONIC PULMONARY ASPIRATION FLUOROSCOPY TIME: 2min [id number] # OF SPOT FILMS: Multiple FINDINGS: The esophagus was studied with multiple swallows in the upright and prone LOVETT projection. No abnormality of the cervical esophagus was identified. In the thoracic esophagus there are intermittent periods of loss of the primary peristaltic wave and development of low-level tertiary contractions with stasis of the contrast in the esophagus. Under fl uoroscopic evaluation episodes of retrograde reflux of this retained barium to the level of thoracic inlet were identified. No hiatal hernia or esophageal stricture. FL/FL barium swallow [id number] IMPRESSION: Esophageal dysmotility as described above which has the potential for aspiratio n.
== END 2022-08-14 09:19 | disposition home or self-care (01) ==
LOC: RAD 09:20
PROVIDERS: PCP Physician Assistant; Visit Provider Internal Medicine Pulmonary Disease
DX: T17.908A Unspecified foreign body in respiratory tract, part unspecified causing other injury, initial encounter (principal); X58.XXXA Exposure to other specified factors, initial encounter
CPT/HCPCS: 74220

== ENCOUNTER 2022-09-04 06:00 | Outpatient (RCR) | payer MEDICARE, SELFPAY | END 2022-10-01 23:59 | disposition home or self-care (01) | LOC: SST 06:00 | PROVIDERS: PCP Physician Assistant; Visit Provider Internal Medicine Pulmonary Disease | DX: R93.3 Abnormal findings on diagnostic imaging of other parts of digestive tract (principal) | CPT/HCPCS: 92610 ==

== ENCOUNTER 2022-09-22 16:36 | Emergency (ER) | payer MEDICARE, SELFPAY ==
[2022-09-22] VITALS (7 sets, daily range): BP systolic 153–176; BP diastolic 100–121; PULSE 104–135; RESP 20–22; TEMP 36.8; O2SAT 92–98; BMI 29.2
--- NOTE | 2022-09-22 16:52 | ED_ITS ---
HPI - Arrhythmia/Palpitations General: Chief Complaint: Arrhythmia/Palpitations Stated Complaint: high heart rate sent by Time Seen by Provider: 09/22/22 16:52 History of Present Illness: Mr. Alvarez is a 89-year-old gentleman with complex past medical history including diabetes, hypertension, hyperlipidemia, peripheral arterial disease, history of recent VATS presenting to the emergency department for racing heart associated with lightheadedness and generalized malaise. Onset of symptoms was at rest this morning. He endorses variability with sometimes improvement sometimes worse however it has been more persistent since this morning. Notes generalized weakness and lightheadedness. Intensity symptoms is moderate. Course has persisted since this morning. No other spec ific changes in health, exacerbating, or alleviating factors identified. Onset (ago): hour(s) Duration: constant Severity: moderate Associated symptoms: Reports short of breath and other Review of Systems General: Reports: 10 or more systems reviewed and unremarkable except in HPI and below PFSH ED PFSH: Medical History Amputation toe Atherosclerosis of coronary artery Diabetes HTN (hypertension) Kidney stone Surgical History S/P cataract extraction S/P cholecystectomy S/P tonsillectomy Family History Father Cancer LUNG Mother CAD (coronary artery disease) Diabetes CHF (congestive heart failure) Myocardial infarction Social History Smoking and tobacco status: never smoked Alcohol intake: never Household members: spouse Marital status: Current occupational status: retired Physical Exam Const: COMMON NORMALS: alert GENERAL APPEARANCE: cooperative and well developed HENMT: COMMON NORMALS: normocephalic and atraumatic HEAD & SCALP: normocephalic and atraumatic Eye: COMMON NORMALS: conjunctivae normal CONJUNCTIVA: Yes conjunctivae normal SCLERA: sclerae normal Neck/C-Spine: COMMON NORMALS: supple GENERAL: Yes trachea midline Resp: EFFORT & INSPECTION: Yes able to speak in complete sentences AUSCULTATION: diminished lung sounds on the left in the lower lung west Cardio: COMMON NORMALS: regular rhythm RATE: tachycardic RHYTHM: regular rhythm GI: COMMON NORMALS: Soft to palpation PALPATION: Yes Soft to palpation and No Tenderness to palpation present (GI) Extremity: GENERAL: Yes normal exam except as noted and No edema Neuro: COMMON NORMALS: moves all extremities SENSORIUM/ORIENTATION: Yes alert and No Orientation impaired Psych: COMMON NORMALS: mental status grossly normal and Normal thought process present THOUGHT PROCESS: Normal thought process present Course Vital Signs: Vital signs: Vital Signs Temperature 98.2 F 09/22/22 16:39 Pulse Rate 127 H 09/23/22 02:00 Respiratory Rate 18 09/23/22 02:00 Blood Pressure 125/79 09/23/22 02:00 Pulse Oximetry 98 09/23/22 02:00 Oxygen Delivery Me thod 09/23/22 02:00 MDM - Arrhythmia/Palpitations Medical Decision Making 72-year-old gentleman with complex past medical history presenting to the emergency department for persistent tachycardia. He reports recent hospitalization with VATS and chest tube placement at [facility] in [place]. He has had chest tubes removed and had been doing well postoperatively however over the past day noticed persistently increased heart rate as well as some dyspnea on exertion and generalized malaise. Associated with high heart rate is lightheadedness as well and generalized weakness. EKG demonstrates sinus tachycardia. Normal axis and intervals. No STEMI. Hematologic panel essentially unremarkable, no leukocytosis, normal hemoglobin, normal platelet count. Metabolic panel notable for mild hyperkalemia, near baseline CKD, mild hyperglycemia without evidence of DKA. Negative range 2-hour delta troponin. BNP is elevated. TSH elevated with pending free T4. Negative viral respiratory panel. Chest x-ray demonstrates left pleural effusion with compressive atelectasis and/or pneumonia. Given persistent tachycardia in the context of recent hospitalization and surgical procedures as well as patient unable to be ruled out by PERC criteria CTA ordered. There is no evidence of pulmonary embolism. There is small to moderate left and small right pleural effusion. There are also 2 apparent sections of tubing. Patient given IV fluids and 2 deficits of metoprolol without significant improvement in heart rate. Most likely etiology of patient's symptoms is unclear. He has had recurrent pleural effusions in the context of complex recent surgical management. Given his persistent tachycardia patient requires transfer for availability of cardiothoracic surgery which we do not have. I discussed extensively with the patient. He is reticent to be transferred for mostly financial reasons. I sympathized with him however ultimately still recommend transfer. He declines EMS transport. I discussed risks of transfer outside facility and risk of non-EMS transfer. Patient accepted by [facility] as a transfer and patient will be transferred via private vehicle. Medical Records I reviewed the patient's medical records. Lab Data I reviewed the patient's lab results. 09/22/22 17:12 09/22/22 17:12 Radiology Impressions Chest X-Ray 09/22/22 17:07 IMPRESSION: 1. Large left pleural effusion with adjacent compressive atelectasis and or pneumonia. 2. The left heart border is obscured. Possible cardiomegaly. Chest CTA 09/22/22 18:09 IMPRESSION: 1. Small to moderate left pleural effusion and small right pleural effusion with adjacent compressive atelectasis and or pneumonia. 2. A 6.1 cm portion of a tube is present in the left upper lobe along the oblique fissure with adjacent consolidation. A 2.2 cm segment of a tube extends along the pericardium of the left ventricle. Presumably these are residual portions of a drainage tube. 3. Streaky consolidation in the left lung may represent scarring, atelectasis, and or pneumonia. Laboratory Results WBC 9.5 10^3/uL (4.0-10.0) 09/22/22 17:12 RBC 4.23 10^6/uL (4.1-5.3) 09/22/22 17:12 Hgb 11.9 g/dL (11.7-16.6) 09/22/22 17:12 Hct 39.1 % (42.0-52.0) L 09/22/22 17:12 MCV 92.4 fl (80-94) 09/22/22 17:12 MCH 28.1 pg (28.0-34.0) 09/22/22 17:12 MCHC 30.4 g/dL (30.0-36.0) 09/22/22 17:12 RDW 13.1 % (12.1-15.1) 09/22/22 17:12 Plt Count 343 10^3/cmm (130-400) 09/22/22 17:12 MPV 9.4 fL (7.4-10.4) 09/22/22 17:12 Neut % (Auto) 55.8 % 09/22/22 17:12 Lymph % (Auto) 33.5 % 09/22/22 17:12 [place] % (Auto) 6.9 % 09/22/22 17:12 Eos % (Auto) 3.0 % 09/22/22 17:12 Baso % (Auto) 0.6 % 09/22/22 17:12 Neut # (Auto) 5.31 10^3/uL (1.8-7.7) 09/22/22 17:12 Lymph # (Auto) 3.2 10^3/uL (0.8-4.8) 09/22/22 17:12 [place] # (Auto) 0.7 10^3/uL (0.2-0.9) 09/22/22 17:12 Eos # (Auto) 0.3 10^3/uL (0.0-0.8) 09/22/22 17:12 Baso # (Auto) 0.1 10^3/uL (0.0-0.1) 09/22/22 17:12 Nucleated RBC % (auto) 0 % 09/22/22 17:12 Nucleated RBCs # 0.0 /100WBC 09/22/22 17:12 Sodium 141 mmol/L (136-145) 09/22/22 17:12 Potassium 5.3 mmol/L (3.5-5.1) H 09/22/22 17:12 Chloride 99 mmol/L (98-107) 09/22/22 17:12 Carbon Dioxide 32 mmol/L (22-29) H 09/22/22 17:12 Anion Gap 15.3 (5-19) 09/22/22 17:12 BUN 43 mg/dL (8-23) H 09/22/22 17:12 Creatinine 1.7 mg/dL (0.7-1.2) H 09/22/22 17:12 GFR Calculation 40.0 mL/min (90-130) L 09/22/22 17:12 Glucose 150 mg/dL (65-115) H 09/22/22 17:12 POC Glucose 63 mg/dL (70-110) L 09/22/22 20:56 Calculated Osmolality 306 mOsm/kg (285-295) H 09/22/22 17:12 Calcium 8.6 mg/dL (8.5-10.5) 09/22/22 17:12 Magnesium 2.4 mg/dL (1.7-2.3) H 09/22/22 17:12 Total Bilirubin 0.2 mg/dL (0.15-1.2) 09/22/22 17:12 AST 12 U/L (0-40) 09/22/22 17:12 ALT 9 U/L (0-41) 09/22/22 17:12 Alkaline Phosphatase 131 U/L (40-130) H 09/22/22 17:12 Troponin T Baseline 77 ng/L (0-15) H 09/22/22 17:12 Troponin T 120 Minute 67.93 ng/L (0-15) H 09/22/22 19:12 Delta Troponin T -9.07 ABS# (0-10) L 09/22/22 19:12 C-Reactive Protein 32.8 mg/L (0.0-4.9) H 09/22/22 17:12 NT-Pro-B Natriuret Pep 8524 pg/mL (0-125) H 09/22/22 17:12 Total Protein 5.9 g/dL (6.6-8.7) L 09/22/22 17:12 Albumin 3.7 g/dL (3.5-5.2) 09/22/22 17:12 Globulin 2.2 g/dL (1.3-4.6) 09/22/22 17:12 Procalcitonin 0.28 ng/mL (0-0.5) 09/22/22 17:12 TSH 29.62 uIU/mL (0.27-4.20) H 09/22/22 17:12 Free T4 0.84 ng/dL (0.82-1.77) 09/22/22 17:12 Coronavirus 229E (PCR) Not detected (NOT DETECT) 09/22/22 19:58 SARS-CoV-2 (PCR) Not detected (NOT DETECT) 09/22/22 19:58 Discharge Plan Discharge Patient Disposition: Xfer Short-Term Hosp Clinical Impression: Tachycardia, Recurrent pleural effusion, Hyperkalemia, CKD (chronic kidney disease), Elevated brain natriuretic peptide (BNP) level, Breath shortness, Abnormal TSH Condition: Stable Referrals: Beatriz Brady PA [Primary Care Provider] - Coding Level of Care Code ED Ceiling Insulation Blower for Chg Abelardo
--- NOTE | 2022-09-22 17:07 | XRR_ITS ---
PROCEDURE INFORMATION: Exam: XR Chest Exam date and time: 09/22/2022 5:12 PM Age: 72 years old Clinical indication: Pain; Chest pressure; TECHNIQUE: Imaging protocol: Radiologic exam of the chest. Views: 1 view. COMPARISON: CR XR chest 2V* [id number] 07/19/2022 9:28 AM FINDINGS: Lungs: See Pleural spaces finding. Pleural spaces: Large left pleural effusion with adjacent compressive atelectasis or pneumonia. Heart/Mediastinum: The left heart border is obscured. Possible cardiomegaly. Vasculature: There is calcified plaque in the aortic knob. Bones/joints: Unremarkable. XR/XR chest 1V portable [id number] IMPRESSION: 1. Large left pleural effusion with adjacent compressive atelectasis and or pneumonia. 2. The left heart border is obscured. Possible cardiomegaly.
[2022-09-22 17:24] LABS: Basophils # 0.1 10^3/uL (0.0-0.1); Basophils % 0.6 %; Eosinophils # 0.3 10^3/uL (0.0-0.8); Hematocrit 39.1 % (42.0-52.0); Hemoglobin 11.9 g/dL (11.7-16.6); Lymphocytes # 3.2 10^3/uL (0.8-4.8); Lymphocytes % 33.5 %; Mean Corpuscular HGB Conc 30.4 g/dL (30.0-36.0); Mean Corpuscular Hemoglobin 28.1 pg (28.0-34.0); Mean Corpuscular Volume 92.4 fl (80-94); Mean Platelet Volume 9.4 fL (7.4-10.4); Monocytes # 0.7 10^3/uL (0.2-0.9); Monocytes % 6.9 %; Neutrophils # 5.31 10^3/uL (1.8-7.7); Neutrophils % 55.8 %; Nucleated Red Blood Cells % 0 %; Platelet Count 343 10^3/cmm (130-400); Red Blood Count 4.23 10^6/uL (4.1-5.3); Red Cell Distribution Width 13.1 % (12.1-15.1); White Blood Count 9.5 10^3/uL (4.0-10.0)
--- NOTE | 2022-09-22 17:48 | ECG_ITS ---
[facility] Test Date: 2022-09-22 Pat Name: Usman Alvarez Department: Room: Gender: Male Beck Tender: : 1950 Requested By: Basil River Order Number: [id number] Diandra MD: Lito Louis M.D. Measurements Intervals [place] Rate: 130 P: 49 WV: 178 QRS: 23 QRSD: 98 T: 71 QT: 350 QTc: 515 Interpretive Statements SINUS TACHYCARDIA NONSPECIFIC ST & T-WAVE ABNORMALITY ABNORMAL RHYTHM ECG Compared to ECG 12/20/2020 10:35:01 Sinus rhythm no longer present T-wave abnormality still present Electronically Signed On 09-22-2022 22:08:24 DINING ROOM ATTENDANT by Lito Louis M.D. [id number]
[2022-09-22 17:51] LABS: Troponin(5th) Baseline 77 ng/L (0-15)
[2022-09-22 17:58] LABS: Slide Review Slide Review Perform
[2022-09-22 17:59] LABS: NT Pro B Type Natriuretic Pept 8524 pg/mL (0-125); Procalcitonin 0.28 ng/mL (0-0.5); Thyroid Stimulating Hormone 29.62 uIU/mL (0.27-4.20)
--- NOTE | 2022-09-22 18:09 | CTR_ITS ---
PROCEDURE INFORMATION: Exam: CTA Chest With Contrast Exam date and time: 09/22/2022 6:48 PM Age: 72 years old Clinical indication: Shortness of breath; Prior surgery; Surgery date: <1 month; Patient HX: HX of thoracentesis with drain; Additional info: Recent surg SOB tachycardia TECHNIQUE: Imaging protocol: Computed tomographic angiography of the chest with contrast. 3D rendering (Not supervised by radiologist): MIP and/or 3D reconstructed images were created by the technologist. Radiation optimization: All CT scans at this facility use at least one of these dose optimization techniques: automated exposure control; mA and/or kV adjustment per patient size (includes targeted exams where dose is matched to clinical indication); or iterative reconstruction. Contrast material: OMNI 350; Contrast volume: 100 ml; Contrast route: INTRAVENOUS (IV); Other protocol: This patient has received [address] and 0 known cardiac nuclear medicine studies in the 12 months prior to the current study. COMPARISON: CT chest wo con [id number] 04/18/2022 7:15 AM RADIATION DOSE METRICS: Total DLP (mGy-cm): 465.36 FINDINGS: Pulmonary arteries: Normal. No pulmonary emboli. Aorta: Unremarkable. No aortic aneurysm. No aortic dissection. Lungs: There are pulmonary parenchymal calcifications consistent with remote granulomatous organism exposure. There is streaky consolidation in the left lung. A 6.1 cm portion of a tube is present in the left upper lobe along the oblique fissure with adjacent consolidation. A 2.2 cm segment of a tube extends along the pericardium of the left ventricle. Pleural spaces: Small to moderate left pleural effusion and small right pleural effusion with adjacent compressive atelectasis and or pneumonia. Heart: See Lungs finding. Coronary arteries: Multivessel atherosclerotic disease which involves the coronary arteries. Lymph nodes: Unremarkable. No enlarged lymph nodes. Gallbladder and bile ducts: The gallbladder has been removed. Intraperitoneal space: Partially visualized hernia posterior left upper abdomen, stable from the prior study. Bones/joints: There are diffuse enthesopathic changes consistent with benign diffuse idiopathic skeletal hyperostosis (DISH). Soft tissues: Unremarkable. CT/CT angio chest PE protcl [id number] IMPRESSION: 1. Small to moderate left pleural effusion and small right pleural effusion with adjacent compressive atelectasis and or pneumonia. 2. A 6.1 cm portion of a tube is present in the left upper lobe along the oblique fissure with adjacent consolidation. A 2.2 cm segment of a tube extends along the pericardium of the left ventricle. Presumably these are residual portions of a drainage tube. 3. Streaky consolidation in the left lung may represent scarring, atelectasis, and or pneumonia.
[2022-09-22 18:10] LABS: Alanine Aminotransferase 9 U/L (0-41); Albumin Level 3.7 g/dL (3.5-5.2); Alkaline Phosphatase 131 U/L (40-130); Anion Gap 15.3 (5-19); Aspartate Amino Transferase 12 U/L (0-40); Blood Urea Nitrogen 43 mg/dL (8-23); C Reactive Protein 32.8 mg/L (0.0-4.9); Calcium 8.6 mg/dL (8.5-10.5); Carbon Dioxide 32 mmol/L (22-29); Chloride 99 mmol/L (98-107); Globulin 2.2 g/dL (1.3-4.6); Glucose 150 mg/dL (65-115); Magnesium 2.4 mg/dL (1.7-2.3); Osmolality Calculated 306 mOsm/kg (285-295); Potassium 5.3 mmol/L (3.5-5.1); Sodium 141 mmol/L (136-145); Total Bilirubin 0.2 mg/dL (0.15-1.2); Total Protein 5.9 g/dL (6.6-8.7)
[2022-09-22] MEDS: iohexol 350 mg/mL 500 mL Btl (per mL) IV (18:38)
--- NOTE | 2022-09-22 18:39 | ECG_ITS ---
[facility] Test Date: 2022-10-14 Pat Name: Usman Alvarez Department: Room: Gender: Male Temporary Administrative Assistant: : 1950 Requested By: Basil River Order Number: [id number] Diandra MD: Lito Louis M.D. Measurements Intervals [place] Rate: 77 P: 55 NC: 156 QRS: 42 QRSD: 97 T: 92 QT: 423 QTc: 480 Interpretive Statements SINUS RHYTHM POSSIBLE LEFT ATRIAL ENLARGEMENT [-0.1mV P-WAVE IN V1/V2] NONSPECIFIC ST & T-WAVE ABNORMALITY INTERPRETATION BASED ON A DEFAULT AGE OF 40 YEARS Compared to ECG 09/22/2022 21:21:31 Sinus tachycardia no longer present T-wave abnormality still present Electronically Signed On 10-15-2022 0:16:29 CDT by Lito Louis M.D. [id number] f
--- NOTE | 2022-09-22 19:08 | ECG_ITS ---
[facility] Test Date: 2022-09-22 Pat Name: Usman Alvarez Department: Room: Gender: Male Pulp Screen Operator: : 1950 Requested By: Basil River Order Number: [id number] Diandra MD: Lito Louis M.D. Measurements Intervals [place] Rate: 116 P: 79 SD: 160 QRS: 63 QRSD: 105 T: 89 QT: 320 QTc: 446 Interpretive Statements SINUS TACHYCARDIA POSSIBLE LEFT ATRIAL ENLARGEMENT [-0.1mV P-WAVE IN V1/V2] NONSPECIFIC T-WAVE ABNORMALITY ABNORMAL RHYTHM ECG INTERPRETATION BASED ON A DEFAULT AGE OF 40 YEARS Compared to ECG 09/22/2022 19:08:13 No significant changes Electronically Signed On 09-23-2022 19:14:01 BUCKRAM SEWER by Lito Louis M.D. [email or web address] Pharmawhitfield medical surgical hospitalCannonballohiohealth [facility].[employer]/store/[id number] f
[2022-09-22] MEDS: metoprolol tartrate 1 mg/1 mL SDV 5 mL 2.5 MG IVP ×2 (19:49→20:40)
[2022-09-22 20:01] LABS: Troponin 5 2HR 67.93 ng/L (0-15)
[2022-09-22 20:02] LABS: Troponin 5 2HR Delta -9.07 ABS# (0-10)
[2022-09-22 21:12] LABS: Glucose Point of Care 63 mg/dL (70-110)
[2022-09-22 21:53] LABS: Adenovirus Not Detected (NOT DETECT); Chlamydia Pneumoniae Not Detected (NOT DETECT); Coronavirus 229E,HKU1,NL63,OC4 Not Detected (NOT DETECT); Human Metapneumovirus Not Detected (NOT DETECT); Human Rhinovirus/Enterovirus Not Detected (NOT DETECT); Influenza A Not Detected (NOT DETECT); Influenza A H1 Not Detected (NOT DETECT); Influenza A H1-2009 Not Detected (NOT DETECT); Influenza A H3 Not Detected (NOT DETECT); Influenza B Not Detected (NOT DETECT); Mycoplasma Pneumoniae Not Detected (NOT DETECT); Parainfluenza Virus Type 1 Not Detected (NOT DETECT); Parainfluenza Virus Type 2 Not Detected (NOT DETECT); Parainfluenza Virus Type 3 Not Detected (NOT DETECT); Parainfluenza Virus Type 4 Not Detected (NOT DETECT); Respiratory Syncytial Virus A Not Detected (NOT DETECT); Respiratory Syncytial Virus B Not Detected (NOT DETECT); SARS-COV-2 Not Detected (NOT DETECT)
[2022-09-22] MEDS: FUROsemide 10 mg/mL SDV 4mL 40 MG IVP (22:54)
--- NOTE | 2022-09-22 23:08 | ECG_ITS ---
[facility] Test Date: 2022-09-22 Pat Name: Usman Alvarez Department: Room: Gender: Male Tappet Adjuster: : 1950 Requested By: Basil River Order Number: [id number] Diandra MD: Lito Louis M.D. Measurements Intervals [place] Rate: 128 P: 75 AK: 203 QRS: 56 QRSD: 96 T: 82 QT: 351 QTc: 513 Interpretive Statements SINUS TACHYCARDIA NONSPECIFIC T-WAVE ABNORMALITY ABNORMAL RHYTHM ECG Compared to ECG 09/22/2022 17:48:43 No significant changes Electronically Signed On 09-22-2022 22:21:30 SHIPPER by Lito Louis M.D. [email or web address] mississippi medical centerCallix Brasilsumma health barberton campusNPR/store/OM/[id number]
[2022-09-23] VITALS: BP 161/105; PULSE 124; RESP 18; O2SAT 96
[2022-09-23] MEDS: labetalol 5 mg/mL SDV 20mL 10 MG IVP (00:36)
[2022-09-23 00:55] LABS: Free T4 Free Thyroxine 0.84 ng/dL (0.82-1.77)
[2022-09-23 02:00] VITALS: BP 125/79; PULSE 127; RESP 18; O2SAT 98
== END 2022-09-23 02:15 | disposition short-term general hospital (02) ==
PROVIDERS: Emergency Provider Emergency Medicine; PCP Physician Assistant
DX: R00.0 Tachycardia, unspecified (principal); R06.02 Shortness of breath; J90 Pleural effusion, not elsewhere classified; E87.5 Hyperkalemia; R79.89 Other specified abnormal findings of blood chemistry; Z20.822 Contact with and (suspected) exposure to COVID-19; I12.9 Hypertensive chronic kidney disease with stage 1 through stage 4 chronic kidney disease, or unspecified chronic kidney disease; E11.22 Type 2 diabetes mellitus with diabetic chronic kidney disease; N18.9 Chronic kidney disease, unspecified; I25.10 Atherosclerotic heart disease of native coronary artery without angina pectoris
CPT/HCPCS: 36415; 36416; 71045; 71275; 80053; 82962; 83735; 83880; 84145; 84439; 84443; 84484; 85025; 86140; 87040; 87635; 93005; 96374; 96375; 96376; 99285; J1940; J3490; Q9967

== ENCOUNTER → 2022-10-14 13:19 | Outpatient (BNVA) | payer MEDICARE, SELFPAY | PROVIDERS: PCP Physician Assistant; Visit Provider Nurse Practitioner Family | DX: I11.0 Hypertensive heart disease with heart failure (principal); I50.20 Unspecified systolic (congestive) heart failure; I25.5 Ischemic cardiomyopathy; I48.3 Typical atrial flutter; I25.118 Atherosclerotic heart disease of native coronary artery with other forms of angina pectoris; Z79.82 Long term (current) use of aspirin | CPT/HCPCS: 93005; 99214 ==

== ENCOUNTER 2022-11-21 09:43 | Outpatient (CLI) | payer MEDICARE, SELFPAY ==
--- NOTE | 2022-11-21 09:57 | US_ITS ---
WS: [id number] RENAL ULTRASOUND HISTORY: STAGE 3B CHRONIC KIDNEY DZ COMPARISON: None available. TECHNIQUE: 2-D and color Doppler imaging of the kidney submitted. Right kidney: 12.5 cm x 7.1 cm x 6.9 cm. Cortex: 1.5 cm Normal echogenicity with no hydronephrosis or mass. Left kidney: 9.8 cm x 6.1 cm x 5.6 cm. Cortex: 1.6 cm Normal echogenicity with no hydronephrosis or mass. Aorta: Mild ectasia aorta. Urinary Bladder: There is very mild diffuse thickening of the bladder wall. This in part may be due t o underdistention or outlet obstruction. Prostate gland is enlarged and heterogeneous measuring 3.8 x 3.5 x 4.7 cm. US/US renal BI* [id number] IMPRESSION: 1. Normal kidneys. 2. Mildly enlarged prostate gland. 3. Mild diffuse bladder wall thickening is probably due to outlet obstruction from the enlarged prostate. No discrete mass.
== END 2022-11-21 09:44 | disposition home or self-care (01) ==
PROVIDERS: PCP Physician Assistant; Visit Provider Internal Medicine Nephrology
DX: N18.32 Chronic kidney disease, stage 3b (principal)
CPT/HCPCS: 76770

== ENCOUNTER → 2023-01-31 08:09 | Outpatient (BNVA) | payer MEDICARE, SELFPAY | PROVIDERS: PCP Physician Assistant; Visit Provider Thoracic Surgery (Cardiothoracic Vascular Surgery) | DX: E11.52 Type 2 diabetes mellitus with diabetic peripheral angiopathy with gangrene (principal); L97.522 Non-pressure chronic ulcer of other part of left foot with fat layer exposed | CPT/HCPCS: 99213 ==

== ENCOUNTER 2023-02-05 10:36 | Inpatient (IN) | payer MEDICARE, SELFPAY ==
[2023-02-05] VITALS (7 sets, daily range): BP systolic 129–150; BP diastolic 73–83; PULSE 82–100; RESP 16–18; TEMP 36.4–36.9; O2SAT 92–97; BMI 27.1
--- NOTE | 2023-02-05 11:25 | XRR_ITS ---
PROCEDURE INFORMATION: Exam: XR Right Foot Exam date and time: 02/05/2023 11:47 AM Age: 72 years old Clinical indication: Pain; Foot; Right TECHNIQUE: Imaging protocol: Radiologic exam of the right foot. Views: 3 or more views. COMPARISON: CT foot RT wo con* [id number] 12/18/2020 8:58 PM FINDINGS: Bones/joints: Prior amputation of the great toe at the mid proximal phalangeal level. Prior amputation of the 2nd toe. Believe there has been surgery involving the 3rd toe with the distal phalanx rotated medially. Soft tissues: Soft tissue swelling in the forefoot. Potential ulceration in the soft tissue of the stump of the great toe. Believe there may be gas in the soft tissue of the forefoot, particularly worrisome adjacent to the 3rd proximal phalanx on the AP view. XR/XR foot RT min 3V* [id number] IMPRESSION: Postoperative changes. Forefoot soft tissue swelling, potential ulceration, and possible soft tissue gas.
--- NOTE | 2023-02-05 11:25 | CT_ITS ---
WS: [id number] CTA ABDOMINAL AORTA WITH RUNOFF TECHNIQUE: Contrast enhanced CTA of the abdominal aorta with bilateral lower extremity runoff. Multip lanar reformatted images were obtained. MIP reformats were also reviewed. CLINICAL INFORMATION: leg pain COMPARISON: September 13, 2020 DLP: 707.[address] scans at [facility] use at least one of these dose optimization techniques: automated e xposure control; mA and/or kV adjustment per patient size (includes targeted exams where dose is matc hed to clinical indication); or iterative reconstruction. FINDINGS: Normal caliber abdominal aorta. Dense vascular calcification. Celiac and SMA are patent. Mo derate to severe RIGHT renal ostial stenosis. Normal renal parenchymal enhancement. RIGHT: Dense common iliac calcification. Densely calcified internal iliac artery. External iliac emily ry remains patent. Common femoral artery is patent. Superficial femoral artery is occluded at the quiana gin and remains occluded. Deep femoral artery is patent. Some reconstitution of the popliteal artery [id number]. Densely calcified popliteal artery with moderate to severe segmental stenosis. Areas of occlusion or near occlusion popliteal artery. Distal popliteal artery is tiny but patent at the tr ifurcation. Anterior tibial artery is occluded. Two-vessel runoff to the ankle with poor flow in the peroneal artery. Posterior tibial artery is dominant. LEFT: Common iliac artery is patent with dense calcification. Internal iliac artery is patent and den sely calcified. External iliac artery is patent. Mild stenosis common femoral artery which remains pa tent. Deep femoral artery is patent. Superficial femoral artery origin is patent with mild stenosis. Multifocal moderate to severe narrowing in the superficial femoral artery which is nearly occluded in the distal thigh near the adductor hiatus. Popliteal artery is diminutive with multifocal calcified stenosis moderate to severe. Distal popliteal artery is patent. Poor lower extremity runoff with brenden nant posterior tibial artery. No significant contribution from the anterior tibial or peroneal arteri es. Superficial femoral artery and popliteal artery disease has progressed. Prior cholecystectomy. Normal renal parenchymal enhancement. No hydronephrosis. Small esophageal hiat al hernia. Normal splenic enhancement. Enlarged prostate measuring 5.5 CM. Partially visualized LEFT lateral abdominal wall/spigelian hernia . No evidence of high-grade obstruction. CT/CT angio abd aorta runof [id number] IMPRESSION: 1. RIGHT: Superficial femoral artery is occluded at the origin and remains occ luded throughout the thigh. Reconstitution of the popliteal artery [id number] with multifocal areas of moderate to severe stenosis and near occlusion. Two -vessel runoff to the ankle with dominant posterior tibial artery. Tiny amount of flow in the peroneal artery. Anterior tibial artery is occluded. Popliteal d isease progressed compared to previous 2. LEFT: Moderate to severe multifocal segmental stenosis superficial femoral artery with near occlusion at the adductor hiatus. Tiny popliteal artery with m ultifocal stenosis. Dominant single vessel posterior tibial runoff. Densely connie cified anterior tibial and peroneal arteries. 3. No abdominal aortic aneurysm. 4. Small LEFT pleural effusion with patchy infiltrates LEFT lower lobe partial ly visualized.Recommend correlation for pneumonia. 5. Tiny RIGHT pleural effusion.
[2023-02-05 11:54] LABS: Basophils # 0.1 10^3/uL (0.0-0.1); Basophils % 0.4 %; Eosinophils # 0.2 10^3/uL (0.0-0.8); Hematocrit 38.7 % (42.0-52.0); Lymphocytes # 2.5 10^3/uL (0.8-4.8); Lymphocytes % 14.2 %; Mean Corpuscular Hemoglobin 27.9 pg (28.0-34.0); Monocytes # 0.8 10^3/uL (0.2-0.9); Monocytes % 4.7 %; Neutrophils # 13.92 10^3/uL (1.8-7.7); Nucleated Red Blood Cells % 0 %; Platelet Count 290 10^3/cmm (130-400); Red Cell Distribution Width 13.2 % (12.1-15.1); White Blood Count 17.6 10^3/uL (4.0-10.0)
[2023-02-05 12:21] LABS: Lactic Sepsis W/Reflex 1.2 mmol/L (0.5-2.2)
[2023-02-05 12:22] LABS: Alanine Aminotransferase 12 U/L (0-41); Albumin Level 2.6 g/dL (3.5-5.2); Alkaline Phosphatase 130 U/L (40-130); Anion Gap 17.5 (5-19); Aspartate Amino Transferase 11 U/L (0-40); Blood Urea Nitrogen 36 mg/dL (8-23); Carbon Dioxide 25 mmol/L (22-29); Chloride 95 mmol/L (98-107); Globulin 3.2 g/dL (1.3-4.6); Glucose 206 mg/dL (65-115); Osmolality Calculated 290 mOsm/kg (285-295); Potassium 4.5 mmol/L (3.5-5.1); Sodium 133 mmol/L (136-145); Total Bilirubin 0.3 mg/dL (0.15-1.2); Total Protein 5.8 g/dL (6.6-8.7)
[2023-02-05] MEDS: vancomycin 1,000 MG in sodium chloride 0.9% 250 ML 250 MG IV (12:41)
[2023-02-05 13:04] LABS: INR 1.09 (0.8-1.2)
--- NOTE | 2023-02-05 13:53 | W.ED.EXTPRO ---
HPI - Extremity Problem General: Chief complaint: Extremity Problem,Nontraumatic Stated complaint: Right foot,toe pain Time Seen by Provider: 02/05/23 11:14 Source: patient Mode of arrival: ambulatory Limitations: no limitations History of Present Illness: 72-year-old male has a history of diabetes severe peripheral vascular disease he has had amputations of toes on the right side in the past patient was sent here today as he is having worsening pain in that foot over the last 2 days and also has had toe that is became gangrenous with foul smelling. He states he is supposed to have a CT angiogram with runoff later this week. Rates his pain in that leg up 4 out of 10 currently. Denies any worsening proving factors. Associated symptoms: Deny chest pain, fever(s) or rash Review of Systems Const: Denies: fever(s), chills, body aches or change in appetite ENMT: Denies: throat pain or dental pain Card: Denies: chest pain Resp: Denies: dyspnea GI: Denies: abdominal pain, nausea, vomiting or diarrhea Musc: Reports: extremity pain; Denies: neck pain or back pain Skin/Breast: Denies: rash Neuro: Denies: headache(s) PFSH ED PFSH: Medical History Amputation toe Atherosclerosis of coronary artery Diabetes HTN (hypertension) Kidney stone Surgical History S/P cataract extraction S/P cholecystectomy S/P tonsillectomy Family History Father Cancer LUNG Mother CAD (coronary artery disease) Diabetes CHF (congestive heart failure) Myocardial infarction Social History Smoking and tobacco status: never smoked Alcohol intake: never Substance/Drug Use: never Household members: spouse Marital status: Current occupational status: retired Physical Exam Const: COMMON NORMALS: patient oriented x3 GENERAL APPEARANCE: ill appearing HENMT: COMMON NORMALS: normocephalic and atraumatic HEAD & SCALP: normocephalic and atraumatic Eye: COMMON NORMALS: Equal, round and reactive pupils present and EOMs intact bilaterally PUPIL: Yes Equal, round and reactive pupils present Neck/C-Spine: COMMON NORMALS: full ROM and supple Chest: COMMONS NORMALS: normal inspection of the chest Resp: COMMON NORMALS: normal respiratory effort Cardio: COMMON NORMALS: regular rate, regular rhythm and No murmurs present (Cardio) RATE: regular rate RHYTHM: regular rhythm GI: COMMON NORMALS: Normal to inspection, nondistended, normoactive bowel sounds present, Soft to palpation, non-tender and no masses PALPATION: Yes Soft to palpation Extremity: COMMON NORMALS: full ROM NARRATIVE EXTREMITY EXAM: Gangrenous right toe with foul-smelling thready pulse palpated has good cap refill Neuro: COMMON NORMALS: patient oriented x3, moves all extremities and no focal motor deficits Psych: COMMON NORMALS: mental status grossly normal, Normal thought process present and cooperative THOUGHT PROCESS: Normal thought process present Skin: COMMON NORMALS: no rashes or lesions noted and no wounds GENERAL SKIN EXAM: no rashes or lesions noted Course Vital Signs: Vital signs: Vital Signs Temperature 98.2 F 02/05/23 10:55 Pulse Rate 93 02/05/23 11:34 Respiratory Rate 16 02/05/23 11:34 Blood Pressure 143/76 02/05/23 11:34 Pulse Oximetry 96 02/05/23 11:34 Oxygen Delivery Me thod Room Air 02/05/23 11:34 MDM - Extremity (Nontraumatic) Medical Decision Making Patient presents here with right leg pain likely some claudication from peripheral vascular disease CTA runoff he does have severe disease no signs of acute ischemic limb he does have a gangrenous toe that is chronic but is acutely worsened with an elevated white count I did start him IV antibiotics up spoke to interventional cardiology along with CT surgery and podiatry will admit patient at this time on IV antibiotics. Lab Data 02/05/23 11:38 02/05/23 11:38 Radiology Impressions Aorta w/Runoff CTA 02/05/23 11:25 IMPRESSION: 1. RIGHT: Superficial femoral artery is occluded at the origin and remains occluded throughout the thigh. Reconstitution of the popliteal artery [id number] with multifocal areas of moderate to severe stenosis and near occlusion. Two-vessel runoff to the ankle with dominant posterior tibial artery. Tiny amount of flow in the peroneal artery. Anterior tibial artery is occluded. Popliteal disease progressed compared to previous 2. LEFT: Moderate to severe multifocal segmental stenosis superficial femoral artery with near occlusion at the adductor hiatus. Tiny popliteal artery with multifocal stenosis. Dominant single vessel posterior tibial runoff. Densely calcified anterior tibial and peroneal arteries. 3. No abdominal aortic aneurysm. 4. Small LEFT pleural effusion with patchy infiltrates LEFT lower lobe partially visualized.Recommend correlation for pneumonia. 5. Tiny RIGHT pleural effusion. Foot X-Ray 02/05/23 11:25 IMPRESSION: Postoperative changes. Forefoot soft tissue swelling, potential ulceration, and possible soft tissue gas. Laboratory Results WBC 17.6 10^3/uL (4.0-10.0) H 02/05/23 11:38 RBC 4.30 10^6/uL (4.1-5.3) 02/05/23 11:38 Hgb 12.0 g/dL (11.7-16.6) 02/05/23 11:38 Hct 38.7 % (42.0-52.0) L 02/05/23 11:38 MCV 90.0 fl (80-94) 02/05/23 11:38 MCH 27.9 pg (28.0-34.0) L 02/05/23 11:38 MCHC 31.0 g/dL (30.0-36.0) 02/05/23 11:38 RDW 13.2 % (12.1-15.1) 02/05/23 11:38 Plt Count 290 10^3/cmm (130-400) 02/05/23 11:38 MPV 9.0 fL (7.4-10.4) 02/05/23 11:38 Neut % (Auto) 79.0 % 02/05/23 11:38 Lymph % (Auto) 14.2 % 02/05/23 11:38 Saunders % (Auto) 4.7 % 02/05/23 11:38 Eos % (Auto) 1.0 % 02/05/23 11:38 Baso % (Auto) 0.4 % 02/05/23 11:38 Neut # (Auto) 13.92 10^3/uL (1.8-7.7) H 02/05/23 11:38 Lymph # (Auto) 2.5 10^3/uL (0.8-4.8) 02/05/23 11:38 Saunders # (Auto) 0.8 10^3/uL (0.2-0.9) 02/05/23 11:38 Eos # (Auto) 0.2 10^3/uL (0.0-0.8) 02/05/23 11:38 Baso # (Auto) 0.1 10^3/uL (0.0-0.1) 02/05/23 11:38 Nucleated RBC % (auto) 0 % 02/05/23 11:38 Nucleated RBCs # 0.0 /100WBC 02/05/23 11:38 PT 14.40 SECONDS (12.1-14.9) 02/05/23 12:39 INR 1.09 (0.8-1.2) 02/05/23 12:39 Sodium 133 mmol/L (136-145) L 02/05/23 11:38 Potassium 4.5 mmol/L (3.5-5.1) 02/05/23 11:38 Chloride 95 mmol/L (98-107) L 02/05/23 11:38 Carbon Dioxide 25 mmol/L (22-29) 02/05/23 11:38 Anion Gap 17.5 (5-19) 02/05/23 11:38 BUN 36 mg/dL (8-23) H 02/05/23 11:38 Creatinine 1.7 mg/dL (0.7-1.2) H 02/05/23 11:38 GFR Calculation 40.0 mL/min (90-130) L 02/05/23 11:38 Glucose 206 mg/dL (65-115) H 02/05/23 11:38 Calculated Osmolality 290 mOsm/kg (285-295) 02/05/23 11:38 Lactic Acid 1.2 mmol/L (0.5-2.2) 02/05/23 11:38 Calcium 8.0 mg/dL (8.5-10.5) L 02/05/23 11:38 Total Bilirubin 0.3 mg/dL (0.15-1.2) 02/05/23 11:38 AST 11 U/L (0-40) 02/05/23 11:38 ALT 12 U/L (0-41) 02/05/23 11:38 Alkaline Phosphatase 130 U/L (40-130) 02/05/23 11:38 Total Protein 5.8 g/dL (6.6-8.7) L 02/05/23 11:38 Albumin 2.6 g/dL (3.5-5.2) L 02/05/23 11:38 Globulin 3.2 g/dL (1.3-4.6) 02/05/23 11:38 Discharge Plan Discharge Admit Provider: Paddy Madsen Clinical Impression: Diabetes mellitus with peripheral vascular disease, 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
--- NOTE | 2023-02-05 14:35 | PM.CONSULT ---
Providers/Reason For Consult Consulting Physician/Specialty*: Walter Baird D.P.M. Reason for Consult*: Gangrene right third toe Primary Care Provider: Beatriz Brady History of Present Illness History of Present Illness Usman Alvarez is a 72 year old male with history of diabetes and peripheral arterial insufficiency presents with gangrenous right third toe with bone exposed, has foul odor. Patient endorses malaise. Review of Systems General: Reports: 10 or more systems reviewed and unremarkable except in HPI and below Const: Denies: fever(s) or chills Eyes: Denies: change in vision Card: Denies: chest pain or palpitations Resp: Denies: dyspnea or productive cough GI: Denies: abdominal pain, nausea or vomiting : Denies: flank pain Musc: Reports: extremity swelling, joint stiffness and deformity Skin/Breast: Reports: erythema, sores, changes in skin color, dry skin, nail changes and change in hair Neuro: Reports: numbness in extremities, sensory changes and difficulty walking Psych: Denies: suicidal ideation Endo: Denies: change in body appearance Zeb/Lymph: Denies: tender lymph nodes Medications/Allergies Home Medications Medication Instructions Recorded Confirmed Last Taken Type garlic 1,000 mg capsule 1,000 mg PO BEDTIME 08/31/19 02/05/23 02/04/23 History furosemide 40 mg tablet 40 mg PO QAM 09/25/21 02/05/23 02/04/23 History see pharmacy comment tramadol 50 mg tablet 50 mg PO BEDTIME 06/14/22 02/05/23 06/14/22 History potassium chloride 10 mEq 10 meq PO DAILY #30 tabs 12/09/22 02/05/23 2 Weeks Ago Rx tablet,extended release ~01/22/23 linezolid 600 mg tablet (Zyvox) 600 mg PO BID #14 tabs 01/31/23 02/05/23 02/05/23 05:30 Rx Clean Spleen Capsules 1 cap PO DAILY 02/05/23 02/05/23 Unknown History Dna Insulin Drops 10 drp buccal BID 02/05/23 02/05/23 Unknown History Mullein Drops See Rx Instructions .Route .COMPLEX 02/05/23 02/05/23 Unknown History Vitamin B Complex Liquid See Rx Instructions .Route .COMPLEX 02/05/23 02/05/23 Unknown History acetylcysteine 600 mg capsule (NAC) 600 mg PO DAILY 02/05/23 02/05/23 Unknown History aspirin 81 mg tablet,delayed 81 mg PO BEDTIME 02/05/23 02/05/23 1 Week Ago History release ~01/29/23 hawthorn 500 mg capsule (hawthorn 500 mg PO BID 02/05/23 02/05/23 Unknown History tejada) insulin detemir U-100 100 unit/mL 36 unit SUBCUT QAM 02/05/23 02/05/23 02/05/23 History (3 mL) subcutaneous pen (Levemir FlexPen) insulin regular human 100 unit/mL See Rx Instructions .Route .COMPLEX 02/05/23 02/05/23 Unknown History injection solution (Novolin R Regular U-100 Insulin) magnesium oxide 400 mg PO QPM 02/05/23 02/05/23 Unknown History nitroglycerin 0.4 mg sublingual 0.4 mg sublingual Q5M PRN Chest 02/05/23 02/05/23 Unknown History tablet (Nitrostat) Pain resveratrol 100 mg capsule 100 mg PO BID 02/05/23 02/05/23 Unknown History thyroid (pork) 60 mg tablet 60 mg PO QAM 02/05/23 02/05/23 1 Week Ago History ([place] Thyroid) ~01/29/23 Allergies Allergy/AdvReac Type Severity Reaction Status Date / Time Penicillins Allergy Severe Throat Verified 02/05/23 14:24 swells amiodarone Allergy Unknown Verified 02/05/23 14:24 azithromycin Allergy ADR/ALGY-Pa Verified 02/05/23 14:24 lpitations ciprofloxacin Allergy hallucinations Verified 02/05/23 14:24 and burning sensation in legs Cordarone Allergy Unknown Confusion Uncoded 10/14/22 13:31 PFSH Acute PFSH: Medical History (Updated 02/05/23 @ 16:05 by Walter Baird DPM) Amputation toe Atherosclerosis of coronary artery Diabetes Diabetes mellitus with peripheral vascular disease Diabetic neuropathy Diabetic ulcer of right foot HTN (hypertension) Ischemic cardiomyopathy Kidney stone Non-healing ulcer Pleural effusion, left Systolic heart failure Surgical History (Updated 02/05/23 @ 15:38 by Paddy Madsen MD) H/O chest tube placement S/P cataract extraction S/P cholecystectomy S/P tonsillectomy Family History Father Cancer LUNG Mother CAD (coronary artery disease) Diabetes CHF (congestive heart failure) Myocardial infarction Social History Smoking and tobacco status: never smoked Alcohol intake: never Substance/Drug Use: never Household members: spouse Marital status: Current occupational status: retired Vitals/I&O/Wt Last Vital Signs Temp 98.2 F 02/05/23 10:55 Pulse 93 02/05/23 11:34 Resp 16 02/05/23 11:34 BP 143/76 02/05/23 11:34 Pulse Ox 96 02/05/23 11:34 O2 Del Method Room Air 02/05/23 11:34 Weight last 48 hrs Weight 195 lb Physical Exam Narrative: GENERAL: Patient is alert and oriented ?3 and in no acute distress. The following is a focused right lower extremity exam. Accompanied by his . VASCULAR: Dorsalis pedis diminished. Right posterior tibial artery diminished. No cap refill at the right distal third toe. Rubor to bilateral lower extremity, dependent. NEUROLOGICAL: Protective sensation intact 0/10 sites, tested with [place] Jennifer monofilament to bilateral feet. DERMATOLOGICAL: Ischemic changes to the distal two thirds of right third toe, exposed proximal phalanx head and medial dislocation at the PIPJ. No proximal lymphangitic streaking. MUSCULOSKELETAL: Status post amputation of right great toe and second toe. No pain to palpation of right foot secondary to neuropathy. No crepitus with palpation of soft tissue, right foot. Data 02/05/23 11:38 02/05/23 11:38 Micro: Microbiology 02/05/23 12:39 Blood Culture - Preliminary Blood SPECIMEN COLLECTED 02/05/23 11:38 Blood Culture - Preliminary Blood SPECIMEN COLLECTED A&P Assessment and plan (1) Diabetes mellitus with peripheral vascular disease: (2) Non-pressure chronic ulcer of other part of right foot with necrosis of bone: (3) Peripheral arterial disease: (4) Gangrenous toe: Plan 72-year-old male with diabetes and peripheral arterial disease presents with gangrenous right third toe. Patient examined and evaluated, findings and treatment options were discussed with patient at length. Recommended right third toe amputation. Patient is agreeable and states that he was planning on this. Discussed risk of delayed healing, dehiscence of surgical amputation site, he is at increased risk for this due to underlying peripheral arterial disease. Ultimately patient is at risk of higher level amputation as a result of his vascular status. CT angiogram performed in the emergency department, see radiology report. Empiric IV antibiotics started, planning on admission to the floor and n.p.o. at midnight. Scheduled for right third toe amputation tomorrow morning 7:00 AM. Podiatry will follow. Coding Level of Care Code Acute Code for [facility] Diagnoses Diabetes mellitus with peripheral vascular disease E11.51 Non-pressure chronic ulcer of other part of right foot with necrosis of bone L97.514 Peripheral arterial disease I73.9 Gangrenous toe I96
--- NOTE | 2023-02-05 14:58 | PC.PHAR ---
Addendum entered by Marga Murguia 02/05/23 15:03: pt had an advair diskus 250-50mcg/dose inhaler written 06/19/22 states no longer having to use since his lung operation Original Note: pts states she takes care of the pts medications-pts states the pt takes lasix 40mg qam rx filled 11/04/22 90d/s 40mg bid-pt states he uses levemir flextouch 36 units daily and buys otc from [facility] r ss tid prn-pts states the pts kcl was put on hold states the pt not taken for 2 weeks-ext med history shows ultram 50mg tid prn filled 01/13/23 10d/s pts states the pt only takes 50mg hs-pts states the pt is still taking zyvox 600mg bid filled 01/31/23 7d/s pts states the pt has 4 tabs left-
--- NOTE | 2023-02-05 15:31 | USCV_ITS ---
Usman Alvarez Age: 72 Gender: M : 1950 Exam Date: 02/05/2023 16:14 Ordering Phys: Paddy Madsen MD Technologist: CT Exam Location: [facility] [place] Indication: chest tightness, hx of cad BP: 142 / 69 HR: 92 Rhythm: Sinus Technical Quality: Adequate MEASUREMENTS (Male / Female) Normal Values 2D ECHO LV Diastolic Diameter PLAX 5.0 cm 4.2 - 5.9 / 3.9 - 5.3 cm LV Systolic Diameter PLAX 4.3 cm LV Chamber Size 5.3 cm IVS Diastolic Thickness 1.5 cm 0.6 - 1.0 / 0.6 - 0.9 cm IVS Systolic Thickness 2.1 cm LVPW Diastolic Thickness 1.4 cm 0.6 - 1.0 / 0.6 - 0.9 cm LVPW Systolic Thickness 1.9 cm RV Chamber Size 4.4 cm LVOT Diameter 2.1 cm LV Ejection Fraction 2D Teich 23.0 % LV Ejection Fraction MOD 2C 21.1 % LV Ejection Fraction 2C AL 23.1 % LA Diameter 3.9 cm LA Width 6.0 cm LA Height 5.5 cm RA Width 4.1 cm RA Height 4.6 cm Aorta at Sinotubular Diameter 2.9 cm IVC Diameter 2.0 cm M-MODE Aortic Annulus Diameter 2.9 cm LA Ao Ratio MM 1.3 MV E Point Septal Separation 1.6 cm DOPPLER AV Peak Velocity 177.0 cm/s LVOT Peak Velocity 64.0 cm/s AV Area Cont Eq vti 2.0 cm squared AV Area Cont Eq pk 1.3 cm squared MV Peak Velocity 149.0 cm/s MV Area PHT 5.1 cm squared Mitral E to A Ratio 0.9 MV E' Velocity 64.0 cm/s Mitral E to MV E' Ratio 24.7 Mitral E to LV E' Lateral Ratio 28.1 Mitral E to LV E' Septal Ratio 22.4 TR Peak Velocity 109.0 cm/s TR Peak Gradient 4.8 mmHg TV Peak E Velocity 82.0 cm/s Right Atrial Pressure 3.0 mmHg Pulmonary Artery Systolic Pressu 7.8 mmHg FINDINGS Left Ventricle Left ventricle is normal in size. LV systolic function is severely reduced with EF of 30-35%. Accurate assessment of regional wall motion abnormalities is not possible because of poor ultrasonic windows. Grade 1 diastolic dysfunction. Right Ventricle Normal in size and function Right Atrium Normal in size Left Atrium Dilated Mitral Valve Moderate mitral annular calcification. Trace mitral regurgitation. Aortic Valve Aortic valve is thickened and calcified. Mild aortic stenosis with aortic valve area of 2 cm2. Mean gradient across arctic valve of 9 mmHg. Tricuspid Valve Mild tricuspid regurgitation. Insufficient TR jet to calculate RVSP. Pulmonic Valve Not well visualized Pericardium Normal Aorta Normal in size IVC Appears to be normal CONCLUSIONS Technically limited quality echocardiogram because of limited visualization LV systolic function is severely reduced with EF of 30 to 35%. Accurate assessment of regional wall motion abnormalities is not possible because of poor ultrasonic windows. Left atrial dilation Trace mitral regurgitation Mild aortic stenosis. Mild tricuspid regurgitation Compared to prior echocardiogram from 2019, no significant changes are seen Harry Bryant MD (Electronically Signed) Final Date: 06 February 2023 08:53 S
--- NOTE | 2023-02-05 15:48 | P.HP_ITS ---
Providers/Chief Complaint Admitting Physician: Paddy Madsen Primary Care Provider: Beatriz Brady Chief Complaint: Right foot,toe pain History of Present Illness Pleasant 72-year-old gentleman with past history of CAD, prior stenting, ischemic cardiomyopathy, EF initially down to 30 to 35% back in 2019, most recent echocardiogram back in December 2020 ejection fraction improved to 40-45% after revascularization, history of diabetes with diabetic nephropathy, complicated by peripheral arterial disease, previously requiring vascularization, toe amputations, presented with frankly gangrenous distal third right toe evaluated and wound care clinic, was referred for evaluation to ER due to worsening pain, malodorous drainage from the gangrenous toe. He denies any proximal redness, has not had fever, but has not been feeling well over the last several weeks at least, getting tired easily. He intermittently gets chest tightness, although thought it may be related to stress, denies relation to exertion, although does get out of breath with walking. His states he has not been getting up and around much for a number of reasons, including toe infection, but additionally recently had lost quite a bit of muscle mass and functional capacity after his hospitalization back in August due to pleural effusion for which he required a chest tube, and states around that time also had some persistent tachycardia which was also treated with hospitalization in [place], his states it was evaluated and found not to be atrial fibrillation. He was going to have CTA aorta with runoff as per prior outpatient plans, this was obtained in ER, finding of right SFA occlusion at origin, occluded throughout the thigh. Reconstitution and popliteal artery above the knee with multifocal areas of moderate to severe stenosis and near occlusion. Two-vessel runoff to the ankle with no posterior tibial artery. Tiny amount of fluid in peroneal artery. Anterior tibial artery occluded. Popliteal disease progressed compared to prior. On the left moderate to severe multifocal segmental stenosis. SFA with near occlusion at the abductor hiatus. Tiny popliteal artery with multifocal stenosis. Dominant single-vessel posterior tibial runoff. Densely calcified anterior tibial and peroneal arteries. Additionally incidentally noted small left pleural effusion with patchy infiltrates left lower lobe partially visualized. Cannot exclude pneumonia. Tiny right pleural effusion. He states that he takes aspirin. States he does not take statin, he and his think that perhaps he had some sort of intolerance to it in the past. Review of Systems Const: Reports: change in appetite (Has been having poor appetite) and malaise; Denies: fever(s), chills or body aches ENMT: Denies: throat pain Card: Reports: dyspnea on exertion and other (Occasional chest tightness, not related to activity. None at this time.); Denies: edema or pre-syncope Resp: Reports: dyspnea; Denies: change in phlegm color or hemoptysis GI: Denies: abdominal pain, nausea, vomiting, diarrhea, constipation, hematochezia or melena : Denies: flank pain, difficulty urinating, urinary frequency or hematuria Musc: Denies: back pain, joint swelling or joint redness Skin/Breast: Reports: changing lesions; Denies: rash Neuro: Denies: headache(s), numbness in extremities, weakness in extremities, dizziness, confusion or seizure-like activity Medications/Allergies Home Medications Medication Instructions Recorded Confirmed Last Taken Type garlic 1,000 mg capsule 1,000 mg PO BEDTIME 08/31/19 02/05/23 02/04/23 History furosemide 40 mg tablet 40 mg PO QAM 09/25/21 02/05/23 02/04/23 History see pharmacy comment tramadol 50 mg tablet 50 mg PO BEDTIME 06/14/22 02/05/23 06/14/22 History potassium chloride 10 mEq 10 meq PO DAILY #30 tabs 12/09/22 02/05/23 2 Weeks Ago Rx tablet,extended release ~01/22/23 linezolid 600 mg tablet (Zyvox) 600 mg PO BID #14 tabs 01/31/23 02/05/23 02/05/23 05:30 Rx Clean Spleen Capsules 1 cap PO DAILY 02/05/23 02/05/23 Unknown History Dna Insulin Drops 10 drp buccal BID 02/05/23 02/05/23 Unknown History Mullein Drops See Rx Instructions .Route .COMPLEX 02/05/23 02/05/23 Unknown History Vitamin B Complex Liquid See Rx Instructions .Route .COMPLEX 02/05/23 02/05/23 Unknown History acetylcysteine 600 mg capsule (NAC) 600 mg PO DAILY 02/05/23 02/05/23 Unknown History aspirin 81 mg tablet,delayed 81 mg PO BEDTIME 02/05/23 02/05/23 1 Week Ago History release ~01/29/23 hawthorn 500 mg capsule (hawthorn 500 mg PO BID 02/05/23 02/05/23 Unknown History tejada) insulin detemir U-100 100 unit/mL 36 unit SUBCUT QAM 02/05/23 02/05/23 02/05/23 History (3 mL) subcutaneous pen (Levemir FlexPen) insulin regular human 100 unit/mL See Rx Instructions .Route .COMPLEX 02/05/23 02/05/23 Unknown History injection solution (Novolin R Regular U-100 Insulin) magnesium oxide 400 mg PO QPM 02/05/23 02/05/23 Unknown History nitroglycerin 0.4 mg sublingual 0.4 mg sublingual Q5M PRN Chest 02/05/23 02/05/23 Unknown History tablet (Nitrostat) Pain resveratrol 100 mg capsule 100 mg PO BID 02/05/23 02/05/23 Unknown History thyroid (pork) 60 mg tablet 60 mg PO QAM 02/05/23 02/05/23 1 Week Ago History ([place] Thyroid) ~01/29/23 Allergies Allergy/AdvReac Type Severity Reaction Status Date / Time Penicillins Allergy Severe Throat Verified 02/05/23 14:24 swells amiodarone Allergy Unknown Verified 02/05/23 14:24 azithromycin Allergy ADR/ALGY-Pa Verified 02/05/23 14:24 lpitations ciprofloxacin Allergy hallucinations Verified 02/05/23 14:24 and burning sensation in legs Cordarone Allergy Unknown Confusion Uncoded 10/14/22 13:31 PFSH Acute PFSH: Medical History (Updated 02/05/23 @ 16:42 by Paddy Madsen MD) Amputation toe Atherosclerosis of coronary artery CKD (chronic kidney disease) Diabetes Diabetes mellitus with peripheral vascular disease Diabetic neuropathy Diabetic ulcer of right foot HTN (hypertension) Ischemic cardiomyopathy Kidney stone Non-healing ulcer Pleural effusion, left Systolic heart failure Surgical History H/O chest tube placement S/P cataract extraction S/P cholecystectomy S/P tonsillectomy Family History Father Cancer LUNG Mother CAD (coronary artery disease) Diabetes CHF (congestive heart failure) Myocardial infarction Social History Smoking and tobacco status: never smoked Alcohol intake: never Substance/Drug Use: never Household members: spouse Marital status: Current occupational status: retired Vitals/I&O/Wt Last Vital Signs Temp 98.2 F 02/05/23 10:55 Pulse 82 02/05/23 15:15 Resp 16 02/05/23 15:15 BP 143/76 02/05/23 15:15 Pulse Ox 92 02/05/23 15:15 O2 Del Method Room Air 02/05/23 15:15 Weight last 48 hrs Weight 88.451 kg Physical Exam Narrative: Accompanied by his Const: COMMON NORMALS: patient oriented x3 and alert GENERAL APPEARANCE: cooperative ORIENTATION/CONSCIOUSNESS: Yes awake HENMT: COMMON NORMALS: oropharynx normal Neck/C-Spine: COMMON NORMALS: no JVD Resp: COMMON NORMALS: normal respiratory effort and clear to auscultation bilaterally AUSCULTATION: clear to auscultation bilaterally Cardio: COMMON NORMALS: no JVD, regular rhythm, S1 normal heart sound present, S2 normal heart sound present and No murmurs present (Cardio) RHYTHM: regular rhythm HEART SOUNDS: S1 normal heart sound present and S2 normal heart sound present GI: COMMON NORMALS: Normal to inspection, nondistended, normoactive bowel sounds present, Soft to palpation and non-tender PALPATION: Yes Soft to palpation Extremity: COMMON NORMALS: no joint enlargement and no pedal edema NARRATIVE EXTREMITY EXAM: Right foot prior first and second digit amputations. Gangrenous distal right third toe, malodorous discharge. No proximal erythema. Neuro: COMMON NORMALS: patient oriented x3 and moves all extremities SENSORIUM/ORIENTATION: Yes alert Skin: GENERAL SKIN EXAM: no erythema OTHER: Minimal faint bruise plantar surface of the right foot. No erythema proximally to the gangrenous distal right third toe. Some scarring from prior wounds dorsal medial right foot, ankle. Data 02/05/23 11:38 02/05/23 11:38 Micro: Microbiology 02/05/23 12:39 Blood Culture - Preliminary Blood SPECIMEN COLLECTED 02/05/23 11:38 Blood Culture - Preliminary Blood SPECIMEN COLLECTED A&P Assessment and plan (1) Non-pressure chronic ulcer of other part of right foot with necrosis of bone: IGangrene of the distal third right toe with worsening, malodorous discharge, with noted leukocytosis 17.6. Is afebrile. No proximal cellulitis noted on exam. His noticed a small faint bruise on the plantar surface of the right foot. At the moment cannot entirely exclude osteomyelitis of proximal foot as well. Known peripheral atrial disease, noted worsening on aorta runoff CTA. Pending cardiac evaluation and consideration of angiographic relation, possible reperfusion. Assessed by podiatry with plan for toe amputation for tomorrow. In terms of surgical intervention would be at elevated risk for anesthesia given history of CAD, ischemic cardiomyopathy, recently intermittent chest pressure episodes, although these do not appear to be related to exertion. Underwent LAD in November 2020. Also noted moderate lesion mid RCA, nonsignificant by FFR. There was improvement in ejection fraction from original echocardiogram back in 2019 EF 30 To 35% suspected ischemic cardiomyopathy, improved up to 40-45% in December 2020. He does note some exertional dyspnea limitation, although overall states has participated with physical therapy recently after recent hospitalization. Will assess with TTE. Obtain baseline troponin, EKG. Discussed with podiatry, planning to perform procedure with local anesthesia. Additionally pending cardiology evaluation. Once more pressing issues are assessed, may benefit from consideration of cardiac risk stratification. At the current time does not have any apparent decompensated heart failure. For now empiric IV antibiotic coverage is added. Has throat swelling listed as allergy to penicillins,, allergy was in childhood. He has received vancomycin and has tolerated well. Reports additional treatment with vancomycin in the past. Discussed with him to follow-up with primary provider with consideration of allergy testing as he may have lost his allergy. For now we will continue vancomycin, otherwise add aztreonam, Flagyl empirically. Follow-up intraoperative cultures. Otherwise does not appear to have proximal cellulitis at current time. Requesting MRI to assess for osteomyelitis in the proximal foot to help assess duration of antibiotics needed following toe amputation, depending on this and intraoperative findings, brief antibiotic course may be all that may be needed. MRI noncontrast due to CKD. Assess A1c. (2) Diabetes mellitus with peripheral vascular disease: Additional assessment of progression of PVD as above. Accu-Cheks requested. Continue Lantus. Add SSI. Consistent carb diet. (3) Chest tightness: Intermittent chest tightness, not related to exertion, sometimes possibly related to stress as per his . None currently. Does have a history of coronary disease, stenting. Subsequently with abnormal stress test. History of ischemic cardiomyopathy with decreased EF. Will additionally assess with TTE. Obtain baseline troponin EKG. Will be seen by cardiology as well. Once more pressing issues are addressed, consideration may be given to further cardiac risk stratification. SL NTG as needed. Monitor with telemetry. (4) Exertional dyspnea: Further assessment as above. TTE. Additionally empiric coverage for possible pneumonia left lower lobe with patchy infiltrate noted with small effusion likely residual from prior effusion back in August for which he required treatment with chest tube as per him and his . Once more pressing issues are addressed, consideration may be given to further cardiac risk stratification. (5) Pulmonary infiltrate present on computed tomography: Left lower lung small effusion with patchy infiltrate noted. He has not been feeling well over the last several weeks, which is difficult to tell could be secondary to the infection as third right toe, but cannot entirely fluid pneumonia. Currently empiric antibiotic coverage as above. Sputum culture if he is able to provide. Will need follow-up to resolution with primary provider. (6) CKD (chronic kidney disease): Creatinine noted 1.7. Monitor renal function with contrast administration. Plan History of tachycardia during hospitalization: His is not sure what type of tachycardia it was, but states that after evaluation it was determined it was not atrial fibrillation. States that he has done well since then without recurrence. We will check magnesium level. Monitor on telemetry. HTN: Monitor blood pressure. Cardiac diet. Other medical problems noted. Discussed with ER physician, ER documentation reviewed. Podiatry documentation reviewed. Attestations Medical Necessity Statement*: Admission of that anticipated for assessment management of worsening of gangrenous third right toe and gentleman with progression of peripheral chill disease, diabetes with complications, CKD, additionally history of CAD, episodes of chest tightness, exertional dyspnea, additional comorbidities as above. Diagnoses Non-pressure chronic ulcer of other part of right foot with necrosis of bone L97.514 Diabetes mellitus with peripheral vascular disease E11.51 Chest tightness R07.89 Exertional dyspnea R06.09 Pulmonary infiltrate present on computed tomography R91.8 CKD (chronic kidney disease) N18.9
[2023-02-05 16:38] LABS: Troponin T (5th) Once 120 ng/L (0-15)
--- NOTE | 2023-02-05 16:57 | P.CONIM_ITS ---
Providers/Reason For Consult Consulting Physician/Specialty*: Cardiovascular diseases Reason for Consult*: Critical limb ischemia right lower extremity Requesting Physician: Emergency room Attending Physician: Paddy Madsen Primary Care Provider: Beatriz Brady History of Present Illness History of Present Illness Usman Alvarez is a 72 year old male with a complicated history. He has diabetes with neuropathy. He has not been a smoker. He developed peripheral arterial disease several years ago. I saw him in August 2019 when he had ulcers of his right leg and foot. I intervened on his right superficial femoral artery at that time. It was occluded. He had percutaneous angioplasty, atherectomy and then drug-coated balloon angioplasty at that time. Since then he has had his right great toe and right second toe amputated for gangrene and osteomyelitis. The following year in November he developed heart disease and underwent angiography after having presented with congestive heart failure. He had a stent placed to his LAD. At that time a lesion was found in his right but was not significant by fractional flow reserve. He did have a mild increase in his creatinine after that. Later the same month he underwent lower extremity angiography because of worsening right lower extremity signs and symptoms. The right superficial artery was occluded and intervened upon. This time percutaneous angioplasty only was performed. Then again the following October 2021 he had further difficulty with his right lower extremity and underwent angiography again. This time his right superficial femoral artery was occluded and was intervened upon. He has a long history of atrial flutter, dyslipidemia, congestive heart failure, nephrolithiasis, ischemic cardiomyopathy, hypertension, diabetes with nephropa thy, coronary disease. He has been seeing physicians in the wound clinic since 2019. He was there recently with worsening discoloration of his right third toe. He now was sent to the emergency room with a gangrenous right third toe. He has been admitted for IV antibiotics. He has been seen by podiatry and they are scheduled to remove the right third toe tomorrow morning at 7:00. He did have an abdominal aortogram with runoff by CT scanning today. His right superficial femoral artery is once again occluded and reconstitutes at the popliteal however the popliteal has multiple stenoses. He has scant two-vessel runoff below the right knee. On the left there are moderate to severe multif ocal lesions of the superficial femoral artery with one-vessel runoff below the left knee. Currently his creatinine is 1.7 with a BUN of 36. His glomerular filtration rate is 40. His white blood cell count is 17.6. His hemoglobin and hematocrit are 12 and 38 respectively. He has pain in the foot and toe. Review of Systems Narrative: No chest pain, shortness of breath. Medications/Allergies Home Medications Medication Instructions Recorded Confirmed Last Taken Type garlic 1,000 mg capsule 1,000 mg PO BEDTIME 08/31/19 02/05/23 02/04/23 History furosemide 40 mg tablet 40 mg PO QAM 09/25/21 02/05/23 02/04/23 History see pharmacy comment tramadol 50 mg tablet 50 mg PO BEDTIME 06/14/22 02/05/23 06/14/22 History potassium chloride 10 mEq 10 meq PO DAILY #30 tabs 12/09/22 02/05/23 2 Weeks Ago Rx tablet,extended release ~01/22/23 linezolid 600 mg tablet (Zyvox) 600 mg PO BID #14 tabs 01/31/23 02/05/23 02/05/23 05:30 Rx Clean Spleen Capsules 1 cap PO DAILY 02/05/23 02/05/23 Unknown History Dna Insulin Drops 10 drp buccal BID 02/05/23 02/05/23 Unknown History [place]lein Drops See Rx Instructions .Route .COMPLEX 02/05/23 02/05/23 Unknown History Vitamin B Complex Liquid See Rx Instructions .Route .COMPLEX 02/05/23 02/05/23 Unknown History acetylcysteine 600 mg capsule (NAC) 600 mg PO DAILY 02/05/23 02/05/23 Unknown History aspirin 81 mg tablet,delayed 81 mg PO BEDTIME 02/05/23 02/05/23 1 Week Ago History release ~01/29/23 hawthorn 500 mg capsule (hawthorn 500 mg PO BID 02/05/23 02/05/23 Unknown History tejada) insulin detemir U-100 100 unit/mL 36 unit SUBCUT QAM 02/05/23 02/05/23 02/05/23 History (3 mL) subcutaneous pen (Levemir FlexPen) insulin regular human 100 unit/mL See Rx Instructions .Route .COMPLEX 02/05/23 02/05/23 Unknown History injection solution (Novolin R Regular U-100 Insulin) magnesium oxide 400 mg PO QPM 02/05/23 02/05/23 Unknown History nitroglycerin 0.4 mg sublingual 0.4 mg sublingual Q5M PRN Chest 02/05/23 02/05/23 Unknown History tablet (Nitrostat) Pain resveratrol 100 mg capsule 100 mg PO BID 02/05/23 02/05/23 Unknown History thyroid (pork) 60 mg tablet 60 mg PO QAM 02/05/23 02/05/23 1 Week Ago History (Ava Thyroid) ~01/29/23 Allergies Allergy/AdvReac Type Severity Reaction Status Date / Time Penicillins Allergy Severe Throat Verified 02/05/23 14:24 swells amiodarone Allergy Unknown Verified 02/05/23 14:24 azithromycin Allergy ADR/ALGY-Pa Verified 02/05/23 14:24 lpitations ciprofloxacin Allergy hallucinations Verified 02/05/23 14:24 and burning sensation in legs Cordarone Allergy Unknown Confusion Uncoded 10/14/22 13:31 PFSH Acute PFSH: Medical History (Updated 02/05/23 @ 16:42 by Paddy Madsen MD) Amputation toe Atherosclerosis of coronary artery CKD (chronic kidney disease) Diabetes Diabetes mellitus with peripheral vascular disease Diabetic neuropathy Diabetic ulcer of right foot HTN (hypertension) Ischemic cardiomyopathy Kidney stone Non-healing ulcer Pleural effusion, left Systolic heart failure Surgical History H/O chest tube placement S/P cataract extraction S/P cholecystectomy S/P tonsillectomy Family History Father Cancer LUNG Mother CAD (coronary artery disease) Diabetes CHF (congestive heart failure) Myocardial infarction Social History Smoking and tobacco status: never smoked Alcohol intake: never Substance/Drug Use: never Household members: spouse Marital status: Current occupational status: retired Vitals/I&O/Wt Last Vital Signs Temp 97.6 F 02/05/23 16:32 Pulse 93 02/05/23 16:32 Resp 18 02/05/23 16:32 BP 150/83 02/05/23 16:32 Pulse Ox 97 02/05/23 16:32 O2 Del Method Room Air 02/05/23 16:32 02/05/23 02/05/23 02/05/23 06:59 14:59 22:59 Intake Total 250 / 250 Balance 250 / 250 Weight last 48 hrs Weight 195 lb Physical Exam Narrative: GENERAL: In general he appears uncomfortable. There is a distinctive odor in the room HEENT: Exam within normal limits. NECK: Supple without jugular vein distention. The carotid upstroke is normal without bruits. BACK: Exam normal. LUNGS: Clear. HEART: Regular rate and rhythm. ABDOMEN: Benign without organomegaly or tenderness. EXTREMITIES: No edema. The right foot is wrapped. I did not unwrap this given the appearance of the right foot x-ray. NEUROLOGIC: Exam normal. SKIN: Unremarkable. Data 02/05/23 11:38 02/05/23 11:38 Micro: Microbiology 02/05/23 12:39 Blood Culture - Preliminary Blood SPECIMEN COLLECTED 02/05/23 11:38 Blood Culture - Preliminary Blood SPECIMEN COLLECTED A&P Assessment and plan (1) CKD (chronic kidney disease): (2) Pulmonary infiltrate present on computed tomography: (3) Exertional dyspnea: (4) Diabetes mellitus with peripheral vascular disease: (5) Diabetic ulcer of right foot: (6) Diabetic neuropathy: (7) Ischemic cardiomyopathy: (8) Pleural effusion, left: (9) Systolic heart failure: (10) Gangrenous toe: (11) Status post amputation of toe of right foot: (12) Atypical chest pain: (13) Atrial flutter: Qualifiers: Atrial flutter type: typical Qualified Code(s): I48.3 - Typical atrial flutter (14) Atherosclerosis of coronary artery: Qualifiers: Coronary Disease-Associated Artery/Lesion type: [place] artery [place] vs. transplanted heart: [place] heart Associated angina: with other forms of angina Qualified Code(s): I25.118 - Atherosclerotic heart disease of [place] coronary artery with other forms of angina pectoris (15) Diabetes mellitus with chronic kidney disease: (16) Hyperlipidemia: Qualifiers: Hyperlipidemia type: mixed hyperlipidemia Qualified Code(s): E78.2 - Mixed hyperlipidemia (17) History of diabetic retinopathy: (18) Peripheral neuropathy: Plan He will need angiography again. One concern is his creatinine. I spoke to Dr. Baird over the phone. Our plan is to have him remove the right third toe at 7 tomorrow morning. Shortly thereafter I will plan to perform angiography of the right lower extremity and potential intervention. This will be to hopefully improve the flow to the foot which will promote healing. This will be the fourth attempt at intervention. The other possibility is that he may need a femoral-popliteal bypass if that is possible given the appearance of his popliteal artery. I also warned him that he may eventually come to amputation. Consult Attestations Medical Necessity Statement: Admission for treatment of critical limb ischemia on the right. and High Time for a total of 45 minutes, includes reviewing past or interval history, examining/interviewing patient, placing orders, counseling patient/family/other support, updating patient/family/other support, discussing plan of care with staff, communicating with other healthcare providers, documenting encounter and coordinating care Diagnoses CKD (chronic kidney disease) N18.9 Pulmonary infiltrate present on computed tomography R91.8 Exertional dyspnea R06.09 Diabetes mellitus with peripheral vascular disease E11.51 Diabetic ulcer of right foot E11.621; L97.519 Diabetic neuropathy E11.40 Ischemic cardiomyopathy I25.5 Pleural effusion, left J90 Systolic heart failure I50.20 Gangrenous toe I96 Status post amputation of toe of right foot Z89.421 Atypical chest pain R07.89 Atrial flutter I48.3 Atrial flutter type: typical Atherosclerosis of coronary artery I25.118 Coronary Disease-Associated Artery/Lesion type: [place] artery [place] vs. transplanted heart: [place] heart Associated angina: with other forms of angina Diabetes mellitus with chronic kidney disease E11.22 Hyperlipidemia E78.2 Hyperlipidemia type: mixed hyperlipidemia History of diabetic retinopathy Z86.39 Peripheral neuropathy G62.9
--- NOTE | 2023-02-05 17:01 | ECG_ITS ---
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 Measurements Intervals [place] Rate: 94 P: 52 MO: 168 QRS: 4 QRSD: 93 T: 34 QT: 330 QTc: 414 Interpretive Statements SINUS RHYTHM NONSPECIFIC T-WAVE ABNORMALITY Compared to ECG 10/14/2022 02:01:02 No significant changes Electronically Signed On 02-06-2023 12:24:33 CDT by Harry Bryant M.D. [email or web address]
[2023-02-05 17:03] LABS: Glucose Point of Care 115 mg/dL (70-110)
[2023-02-05 17:12] LABS: Magnesium 2.1 mg/dL (1.7-2.3)
[2023-02-05] MEDS: aztreonam 1,000 MG in sodium chloride 0.9% (plus) 50 ML 100 MG IV (17:42)
[2023-02-05] MEDS: heparin 5,000 unit/mL INJ 1 mL 5000 UNIT SUBCUT (17:42)
[2023-02-05] MEDS: sodium chloride 0.9% 1,000 ML 50 ML IV (17:44)
[2023-02-05] MEDS: metroNIDAZOLE IV 500 MG/100 ML PREMIX 100 MG IV (18:33)
[2023-02-05] MEDS: vancomycin 1,500 MG/300 ML PIGGYBACK 200 MG IV (20:55)
[2023-02-05] MEDS: aspirin 81 mg EC Tablet PO (20:55)
[2023-02-05] MEDS: acetaminophen 325 mg Tablet 650 MG PO (20:55)
[2023-02-05] MEDS: TRAMadol 50 mg Tablet PO (20:55)
[2023-02-05 21:02] LABS: Glucose Point of Care 227 mg/dL (70-110)
[2023-02-05] MEDS: ondansetron 2 mg/ML SDV 2 mL 4 MG IVP (22:31)
--- NOTE | 2023-02-05 23:16 | PC.NURSE ---
Pt showed SVT on compliance monitor. Went to check pt, he was A+Ox4 and asymptomatic. Called Dr. Moreno, received orders to check BMP and magnesium STAT.
[2023-02-06] VITALS (42 sets, daily range): BP systolic 111–155; BP diastolic 60–87; PULSE 89–102; RESP 7–28; TEMP 36.6–37.4; O2SAT 85–100
[2023-02-06 01:09] LABS: Basophils # 0.1 10^3/uL (0.0-0.1); Basophils % 0.3 %; Eosinophils # 0.2 10^3/uL (0.0-0.8); Eosinophils % 1.2 %; Hematocrit 38.1 % (42.0-52.0); Lymphocytes # 3.1 10^3/uL (0.8-4.8); Lymphocytes % 15.9 %; Mean Corpuscular HGB Conc 31.5 g/dL (30.0-36.0); Mean Platelet Volume 8.8 fL (7.4-10.4); Monocytes # 0.9 10^3/uL (0.2-0.9); Monocytes % 4.7 %; Neutrophils % 77.2 %; Nucleated Red Blood Cells % 0 %; Platelet Count 330 10^3/cmm (130-400); Red Blood Count 4.28 10^6/uL (4.1-5.3); Red Cell Distribution Width 13.2 % (12.1-15.1); White Blood Count 19.3 10^3/uL (4.0-10.0)
[2023-02-06] MEDS: metroNIDAZOLE IV 500 MG/100 ML PREMIX 100 MG IV ×2 (01:17→18:03)
[2023-02-06 01:31] LABS: Anion Gap 13.8 (5-19); Blood Urea Nitrogen 38 mg/dL (8-23); Carbon Dioxide 30 mmol/L (22-29); Chloride 98 mmol/L (98-107); Glomerular Filtration Rate 37.5 mL/min (90-130); Glucose 171 mg/dL (65-115); Magnesium 2.3 mg/dL (1.7-2.3); Osmolality Calculated 297 mOsm/kg (285-295); Potassium 4.8 mmol/L (3.5-5.1); Sodium 137 mmol/L (136-145)
[2023-02-06] MEDS: aztreonam 1,000 MG in sodium chloride 0.9% (plus) 50 ML 100 MG IV ×2 (05:21→19:57)
[2023-02-06] MEDS: FUROsemide 40 mg Tablet PO (05:21)
[2023-02-06] MEDS: thyroid 60 mg Tablet PO (05:21)
[2023-02-06] MEDS: heparin 5,000 unit/mL INJ 1 mL 5000 UNIT SUBCUT ×2 (05:22→18:04)
[2023-02-06] MEDS: insulin glargine 100 units/1 mL 36 UNIT SUBCUT (05:22)
--- NOTE | 2023-02-06 06:14 | XACV_ITS ---
Ht: 180 cm Wt: 88 kg BSA: 2.12 m2 Any Known Allergies: Other Gender: Male : 1950 Exam Type: Invasive Peripheral Vascular Procedure(s): Procedure Description: Peripheral Cath Diagnostic Procedure Procedure Description: Abdominal aortic angiography Exam Priority: Routine CROKE, Ezra; Lower Extremity Diagnostic Findings This patient with severe bilateral lower extremity peripheral arterial disease with multiple interventions has just had a gangrenous third toe removed this morning. He had a CT angiogram of the lower abdominal aorta with runoff yesterday which shows bilateral superficial femoral artery occlusions. His creatinine was 1.7 yesterday and is 1.8 this morning. Angiography is done to assess the vasculature and determine the possibility for intervention. The right common iliac artery is patent. The right external iliac artery is patent. The right internal iliac artery is occluded. Common femoral artery on the right is patent. The superficial femoral artery is occluded just at its origin. There is no stump available. The profunda femoris artery is patent and provides the collateral flow distally. There is reconstitution of the distal SFA and popliteal beyond the adductor canal. The popliteal appears patent but is a relatively small moderately diffusely diseased artery. The popliteal is nearly occluded at the knee joint. There is some collateral flow to the distal popliteal beyond this. I cannot identify an anterior tibial, posterior tibial or peroneal below the knee. Some small collaterals which emanate from the popliteal artery proximally provide a minimal amount of distal flow. There is 1 artery identified which is probably the posterior tibial artery which is seen via collateral flow. I do not see the anterior tibial or peroneal via collaterals.. Conclusions Severe peripheral arterial disease on the right with flush occlusion of the SFA with reconstitution distally, minimal flow to the popliteal with no antegrade flow below the knee. Some reconstitution via collaterals from the profunda femoris artery. An attempt at placing a wire via the common femoral artery was unsuccessful as the wire tends to preferentially enter the profunda femoris. Patient has had 3 prior interventions to this vessel with continued closure of the vessel again after intervention.. Recommendations Surgical evaluation for the possibility of femoral-popliteal bypass. Hemodynamic Data Phase:Rest AO : 106.0 / 88.0 ( 97.0 ) @ 8:55:00 AM Access Site Site: Left Femoral artery Sheath Size: 6 Fr Hemost... Method: Manual Compression Hemost... Success: Successful Procedure Details Findings Procedure Consent Obtained. Admit Source: In Patient. Pre-Procedure Time Out. Identified patient by full name and date of as verbalized by the patient/guarantor. Does the consent match the physician's order: Yes. Accurate & Complete Informed Consent: Yes. Inpatient/Outpatient History & Physical on Chart: Yes. If H&P is completed, is and addenduem needed: No; If yes, is the addendum complete: N/A. Visualize and Verify Site with Patient/Guarantor: N/A. Relevant Radiology Images available: Yes. The risks, benefits, and alternatives of sedation and/or procedure were discussed by physician. The patient agrees to continue. Procedure started. Correct patient, site and procedure confirmed by cath team. PERRLA. 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 Lungs clear x 5 lobes. IV Site on Arrival: 20 gauge in the right hand. IV Fluids: 0.9% NaCl at KVO. 50 mL infused prior to lab tester. Pre Procedural Pulses: bilateral posterior tibial was Doppled. Pre Procedural Pulses: bilateral dorsalis pedis was Doppled. Oxygen started at 2liters/min via nasal canula. bilateral groins was prepped with chloroprep then draped in the usual sterile fashion. Physician notified. Baseline sample Acquired. HR: 98 BPM. Physician arrived. Physician scrubbed in. Time out performed with cath team. Lidocaine 1% infiltrated to the left groin. Arterial access obtained. A 5FrFr RIM catheter in over glidewire. Glidewire removed. Sheath injected in Right common femoral artery and runoff performed. Glidewire inserted. Catheter out. A Manual Compression was successful obtaining hemostatsis at the Left Femoral artery insertion site. Post Procedure: Pulses reassessed and unchanged. PERRLA. 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 No VTE prophylaxis required. Right common iliac selected and arteriogram with runoff performed @ 10 mL/sec for a total of 30 mL. Post-op diagnosis: PAD. Complications: none. Estimated blood loss: 5mL-10mL. Responsiveness - Normal response to verbal stimuli; alert and oriented, PERRLA. Airway - Unaffected, no intervention required; spontaneous ventilation. Circulation: W/N/L, pulses unchanged. Nausea/Vomiting: No. Total IV fluids: 50 mL. Medication's Wasted: Heparin = 1000 units. Procedure completed. Patient transferred by bed to CPRU. Lidocaine 1% infiltrated to the left groin. Glidewire removed. Vital chart was stopped. Procedure Medications Start: 7:42 AM Stop: 7:42 AM Medication: Versed 1 mg and Fentanyl 25 mcg Amount: 1 Route: I.V. Start: 7:49 AM Stop: 7:49 AM Medication: Fentanyl Amount: 25 mcg Route: I.V. Start: 8:08 AM Stop: 8:08 AM Medication: Fentanyl Amount: 25 mcg Route: I.V. Start: 8:18 AM Stop: 8:18 AM Medication: Fentanyl Amount: 25 mcg Route: I.V. I, the attending physician, have reviewed and verified all procedure medications. Yes, all medications given per verbal order History/Risk Factors Hypertension: Yes Dyslipidemia: Yes Peripheral Arterial Disease (PAD): Yes Obesity: No Renal Disease: Yes Prior Interventions PCI: Yes Valve Surgery: No Date of PCI: 11/09/2020 Report Signatures Finalized by Dr. Domenico Munguia MD on 02/06/2023 08:35 AM
[2023-02-06 06:44] LABS: Glucose Point of Care 184 mg/dL (70-110)
--- NOTE | 2023-02-06 06:46 | W.PM.OPSUD ---
Surgery/Procedure H&P Update DATE OF PROCEDURE: February 06, 2023 DATE H&P PERFORMED: 02/05/23 CHANGES TO PREVIOUS DOCUMENTATION: none PLANNED PROCEDURE: Operation Date: 02/06/23 07:00 Proposed Procedures p Right third toe amputation(Right) - Walter Baird DPM
[2023-02-06] MEDS: sodium chloride 0.9% 1,000 ML 30 ML IV (06:56)
--- NOTE | 2023-02-06 07:22 | P.ANESASSM_ITS ---
Pre-Anesthetic Assessment Height/Weight: Height 1.8 m Weight 88.451 kg Temp Pulse Resp BP Pulse Ox O2 Del Method 98.2 F 97 17 155/80 93 Room Air 02/06/23 04:00 02/06/23 06:00 02/06/23 04:00 02/06/23 04:00 02/06/23 04:00 02/06/23 06:35 Operation Date: 02/06/23 07:00 Proposed Procedures p Right third toe amputation(Right) - Walter Baird DPM Familial anesthetic complications: none Was Beta Alexey taken within 24 hours: N/A Was Clonidine taken within 24 hours: N/A Last intake: Intake Last Liquid Date 02/05/23 Last Liquid Time 22:00 Last Solid Date 02/05/23 Last Solid Time 18:00 Social No alcohol and No tobacco Exam alert, oriented x 3, clear to auscultation bilaterally and regular rate & rhythm Airway Submandibular: within normal limits Cervical ROM: within normal limits Mallampati: Class II Dentition: false CV/HEM Atrial Fibrillation, Anemia, Arrythmia, Coronary Artery Disease (stent), Congestive Heart Failure, Hypertension and Peripheral Vascular Disease CONCLUSIONS ?Diffuse hypokinesia of the left ventricle with ejection fraction ?of around 40 to 45%. ?Grade I/IV diastolic dysfunction (abnormal relaxation filling ?pattern), normal to mildly elevated filling pressures. ? Technically difficult study because of the poor ultrasonic ?window. ?Thickened mitral valve. Moderate mitral annular calcification. ?Features of? of aortic valve sclerosis ?No significant regurgitant lesions, based on the color flow ?examination ?Technically difficult study because of the poor ultrasonic ?window. ?Comparison with the previous study is difficult because of the ?difference in the technical quality. ?Dr Lito Louis MD [facility] ?(Electronically Signed) ?Final Date:? ? ? 21 Dec 2020 01: Chronic Renal Insufficiency Metabolic Diabetes Mellitus and Hyperlipidemia Neuropsych Neuropathy Anesthetic Plan ASA status: 3 Anesthesia: MAC Medications/Allergies Home Medications Medication Instructions Recorded Confirmed Last Taken Type garlic 1,000 mg capsule 1,000 mg PO BEDTIME 08/31/19 02/05/23 02/04/23 History furosemide 40 mg tablet 40 mg PO QAM 09/25/21 02/05/23 02/04/23 History see pharmacy comment tramadol 50 mg tablet 50 mg PO BEDTIME 06/14/22 02/05/2306/14/22 History potassium chloride 10 mEq 10 meq PO DAILY #30 tabs 12/09/22 02/05/23 2 Weeks Ago Rx tablet,extended release ~01/22/23 linezolid 600 mg tablet (Zyvox) 600 mg PO BID #14 tabs 01/31/23 02/05/23 02/05/23 05:30 Rx Clean Spleen Capsules 1 cap PO DAILY 02/05/23 02/05/23 Unknown History Dna Insulin Drops 10 drp buccal BID 02/05/23 02/05/23 Unknown History Mullein Drops See Rx Instructions .Route .COMPLEX 02/05/23 02/05/23 Unknown History Vitamin B Complex Liquid See Rx Instructions .Route .COMPLEX 02/05/23 02/05/23 Unknown History acetylcysteine 600 mg capsule (NAC) 600 mg PO DAILY 02/05/23 02/05/23 Unknown History aspirin 81 mg tablet,delayed 81 mg PO BEDTIME 02/05/23 02/05/23 1 Week Ago History release ~01/29/23 hawthorn 500 mg capsule (hawthorn 500 mg PO BID 02/05/23 02/05/23 Unknown History tejada) insulin detemir U-100 100 unit/mL 36 unit SUBCUT QAM 02/05/23 02/05/23 02/05/23 History (3 mL) subcutaneous pen (Levemir FlexPen) insulin regular human 100 unit/mL See Rx Instructions .Route .COMPLEX 02/05/23 02/05/23 Unknown History injection solution (Novolin R Regular U-100 Insulin) magnesium oxide 400 mg PO QPM 02/05/23 02/05/23 Unknown History nitroglycerin 0.4 mg sublingual 0.4 mg sublingual Q5M PRN Chest 02/05/2312/24 Unknown History tablet (Nitrostat) Pain resveratrol 100 mg capsule 100 mg PO BID 02/05/23 02/05/23 Unknown History thyroid (pork) 60 mg tablet 60 mg PO QAM 02/05/23 02/05/23 1 Week Ago History ([place] Thyroid) ~01/29/23 Allergies Allergy/AdvReac Type Severity Reaction Status Date / Time Penicillins Allergy Severe Throat Verified 02/05/23 14:24 swells amiodarone Allergy Unknown Verified 02/05/23 14:24 azithromycin Allergy ADR/ALGY-Pa Verified 02/05/23 14:24 lpitations ciprofloxacin Allergy hallucinations Verified 02/05/23 14:24 and burning sensation in legs Cordarone Allergy Unknown Confusion Uncoded 10/14/22 13:31 Current Medications Generic Name Dose Route Start Last Admin Trade Name Freq PRN Reason Stop Dose Admin Acetaminophen 650 mg 02/05/23 15:48 02/05/23 20:55 Acetaminophen 325 Mg Tablet PO 650 mg Q6H PRN Administration Mild/Mod Pain Or Temp >/= 101 Aspirin 81 mg 02/05/23 21:00 02/05/23 20:55 Aspirin 81 Mg Ec Tablet PO 81 mg BEDTIME SAHARA Administration Furosemide 40 mg 02/06/23 06:00 02/06/23 05:21 Furosemide 40 Mg Tablet PO 40 mg QAM SAHARA Administration Heparin Sodium (Porcine) 5,000 unit 02/05/23 18:00 02/06/23 05:22 Heparin 5,000 Unit/Ml Inj 1 Ml SUBCUT 5,000 unit Q12H SAHARA Administration Aztreonam 1,000 mg/ Sodium 50 mls @ 100 mls/hr 02/05/23 17:00 02/06/23 06:03 Chloride IV Infused Q12H SAHARA Infusion Protocol Metronidazole 500 mg in 100 mls @ 100 mls/hr 02/05/23 16:30 02/06/23 02:20 Flagyl Iv IV Infused Q8H SAHARA Infusion Protocol Vancomycin/PEG/NADA/Lysine/Water 1,500 mg in 300 mls @ 200 mls/hr 02/05/23 21:00 02/05/23 22:39 Vancocin IV Infused Q24H SAHARA Infusion Sodium Chloride 1,000 mls @ 50 mls/hr 02/05/23 16:55 02/05/23 17:44 Sodium Chloride 0.9% IV 02/06/23 12:54 50 mls/hr .Q20H ONE Administration Sodium Chloride 1,000 mls @ 30 mls/hr 02/06/23 07:00 02/06/23 06:56 Sodium Chloride 0.9% IV 02/07/23 06:59 30 mls/hr .Q24H SAHARA Administration Insulin Glargine 36 unit 02/06/23 06:00 02/06/23 05:22 Insulin Glargine 100 Units/1 Ml SUBCUT 36 unit QAM SAHARA Administration Insulin Human Lispro 0 unit 02/05/23 18:00 02/05/23 21:10 Insulin Lispro 100 Unit/1 Ml SUBCUT Not Given WM&BEDTIME SAHARA Protocol Magnesium Oxide 400 mg 02/05/23 18:00 02/05/23 17:44 Magnesium Oxide 400 Mg Tablet PO Not Given QPM SAHARA Non-Formulary Medication 10 drop 02/05/23 18:00 02/05/23 17:37 Dna Insulin Drops BUCCAL Not Given BID SAHARA Ondansetron HCl 4 mg 02/05/23 15:48 02/05/23 22:31 Ondansetron 2 Mg/Ml Sdv 2 Ml IVP 4 mg Q8H PRN Administration vomiting, or N/V if npo Thyroid 60 mg 02/06/23 06:00 02/06/23 05:21 Thyroid 60 Mg Tablet PO 60 mg QAM SAHARA Administration Tramadol HCl 50 mg 02/05/23 21:00 02/05/23 20:55 Tramadol 50 Mg Tablet PO 50 mg BEDTIME SAHARA Administration [facility] Anesthesia Medical History (Updated 02/05/23 @ 16:42 by Paddy Madsen MD) Amputation toe Atherosclerosis of coronary artery CKD (chronic kidney disease) Diabetes Diabetes mellitus with peripheral vascular disease Diabetic neuropathy Diabetic ulcer of right foot HTN (hypertension) Ischemic cardiomyopathy Kidney stone Non-healing ulcer Pleural effusion, left Systolic heart failure Surgical History H/O chest tube placement S/P cataract extraction S/P cholecystectomy S/P tonsillectomy Family History Father Cancer LUNG Mother CAD (coronary artery disease) Diabetes CHF (congestive heart failure) Myocardial infarction Social History Smoking and tobacco status: never smoked Alcohol intake: never Substance/Drug Use: never Household members: spouse Marital status: Current occupational status: retired Data Anesthesia 02/06/23 00:56 02/06/23 00:56 Short CBC 02/05/23 02/06/23 Range/Units 11:38 00:56 WBC 17.6 H 19.3 H (4.0-10.0) 10^3/uL Hgb 12.0 12.0 (11.7-16.6) g/dL Hct 38.7 L 38.1 L (42.0-52.0) % MCV 90.0 89.0 (80-94) fl Plt Count 290 330 (130-400) 10^3/cmm Neut % (Auto) 79.0 77.2 % Neut # (Auto) 13.92 H 14.90 H (1.8-7.7) 10^3/uL BMP 02/05/23 02/06/23 11:38 00:56 Sodium 133 L 137 Potassium 4.5 4.8 Chloride 95 L 98 Carbon Dioxide 25 30 H BUN 36 H 38 H Creatinine 1.7 H 1.8 H Glucose 206 H 171 H Calcium 8.0 L 8.0 L Cardiac Enzymes 02/05/23 Range/Units 15:53 Troponin T Gen 5 ng/L 120 H* (0-15) ng/L Liver Function 02/05/23 Range/Units 11:38 Total Bilirubin 0.3 (0.15-1.2) mg/dL AST 11 (0-40) U/L ALT 12 (0-41) U/L Alkaline Phosphatase 130 (40-130) U/L Albumin 2.6 L (3.5-5.2) g/dL Coags 02/05/23 12:39 PT 14.40 INR 1.09 Microbiology 02/05/23 12:39 Blood Culture - Preliminary Blood SPECIMEN COLLECTED 02/05/23 11:38 Blood Culture - Preliminary Blood SPECIMEN COLLECTED Cardiac Studies: Echocardiogram Ultrasound 12/20/20 Sestamibi Stress Test (Cardiology) 07/06
[2023-02-06] MEDS: lidocaine 2% INJ 20 mL 10 ML INJECTION (07:26)
--- NOTE | 2023-02-06 07:31 | PM.OP ---
Operative Report Date of procedure: February 06, 2023 Pre-op diagnosis: Gangrene right third toe Post-op diagnosis: Gangrene right third toe Procedure done: Third toe amputation at metatarsal phalangeal joint. Implants: None Specimens removed/disposition: Third proximal phalanx bone sent to microbiology for Gram stain, culture and sensitivity. Pathology: Right third toe sent to pathology gross anatomic review Surgeon: Walter Baird D.P.M. Custodial Officer: Zurdo Estimated blood loss: 5 0 IV fluids: 0 Urine output: 0 Complications: None Brief History: 72-year-old male with diabetes and peripheral arterial disease presents with gangrenous right third toe. Patient examined and evaluated, findings and treatment options were discussed with patient at length.? Recommended right third toe amputation.? Patient is agreeable and states that he was planning on this.? Discussed risk of delayed healing, dehiscence of surgical amputation site, he is at increased risk for this due to underlying peripheral arterial disease.? Ultimately patient is at risk of higher level amputation as a result of his vascular status.? CT angiogram performed in the emergency department, see radiology report.? Empiric IV antibiotics started, planning on admission to the floor and n.p.o. at midnight.? Scheduled for right third toe amputation tomorrow morning 7:00 AM.? Procedure: Patient was brought to the operating room, timeout was performed. Anesthesia administered by the anesthesia service. Local anesthesia injected by myself consisting of one-to-one mixture 1% lidocaine and 0.25 sent Marcaine total of 20 cc in a right third ray block fashion. Well-padded pneumatic tourniquet was applied to the right ankle. This was never inflated during the duration of the procedure. The right lower extremity was scrubbed, prepped and draped utilizing normal aseptic technique. Attention was directed to the right third toe where gangrenous changes were appreciated with exposed bone. Vertical semilateral incisions converging about the right third metatarsal phalangeal joint were performed full-thickness down to bone and the right third toe was sharply disarticulated at the third metatarsal phalangeal joint and passed from the operative field. Base of the proximal phalanx of the right third toe was sent to microbiology as a bone culture. The remaining toe was sent to pathology for gross anatomic review. The incision was irrigated with copious amounts of sterile skin solution. Third metatarsal head was directly visualized and had appropriate color, was bright white without density changes, no obvious signs of infection at this level. Skin margins were delayed and bleeding. I am guarded as to healing potential. Planning on transferring to the [facility] for angiography. Patient tolerated the procedure and anesthesia well and was transferred to [facility] for continued care.
--- NOTE | 2023-02-06 08:35 | PC.NURSE ---
Patient arrived from laboratory immunologist to [facility] room 3. Pt drowsy and arouses to verbal and touch stimuli. Breathing even and non-labored on room air. Placed on bedside playground monitor. Awaiting room on CSU. Left groin has dressing without sheath. Clean, dry, and asymptomatic. No signs of hematoma. Left pedal pulses dopplered. Right foot is wrapped with priscilla wrap, dressing is clean, dry, and intact. at bedside. Pt denies pain at this time.
--- NOTE | 2023-02-06 10:23 | ANE.PACU2 ---
Inpatient post-anesthesia follow up: Airway intact: Yes Vital signs: Temperature 98.2 F Pulse Rate 92 Respiratory Rate 23 Blood Pressure 129/70 Pulse Oximetry 96 Oxygen Delivery Me thod Room Air Oxygen Flow Rate Fraction of Inspir ed Oxygen Hydration adequate: Yes Nausea and vomiting: No Pain level: 1 Mental status: Baseline
[2023-02-06 11:12] LABS: Glucose Point of Care 128 mg/dL (70-110)
[2023-02-06] MEDS: sodium chloride 0.9% 1,000 ML 100 ML IV ×2 (11:32→19:57)
--- NOTE | 2023-02-06 11:47 | P.PN_ITS ---
Subjective Subjective: He is somewhat tired after his eventful morning with peripheral angiogram and amputation, currently resting, denies pain or discomfort. Accompanied by his . Vitals/I&O/Wt Last Vital Signs Temp 98.2 F 02/06/23 04:00 Pulse 93 02/06/23 11:15 Resp 25 H 02/06/23 11:15 BP 131/73 02/06/23 11:15 Pulse Ox 100 02/06/23 11:15 O2 Del Method Oxymask 02/06/23 08:00 O2 Flow Rate 3 02/06/23 08:00 02/05/23 02/06/23 02/06/23 22:59 06:59 14:59 Intake Total 1180 / 1180 150 / 1330 895.833 / 895.833 Output Total Balance 1180 / 1180 125 / 1305 895.833 / 895.833 Weight last 48 hrs Weight 88.451 kg Physical Exam Narrative: Accompanied by his Const: COMMON NORMALS: patient oriented x3 GENERAL APPEARANCE: cooperative OTHER: Somnolent, wakes up to voice. HENMT: COMMON NORMALS: oropharynx normal Neck/C-Spine: COMMON NORMALS: no JVD Resp: COMMON NORMALS: normal respiratory effort and clear to auscultation bilaterally AUSCULTATION: clear to auscultation bilaterally Cardio: COMMON NORMALS: no JVD, regular rhythm, S1 normal heart sound present, S2 normal heart sound present and No murmurs present (Cardio) RHYTHM: regular rhythm HEART SOUNDS: S1 normal heart sound present and S2 normal heart sound present GI: COMMON NORMALS: Normal to inspection, nondistended, normoactive bowel sounds present, Soft to palpation and non-tender PALPATION: Yes Soft to palpation Extremity: COMMON NORMALS: no joint enlargement and no pedal edema NARRATIVE EXTREMITY EXAM: Right foot in post-op dressing. No proximal erythema or swelling at the ankle. Neuro: COMMON NORMALS: patient oriented x3 and moves all extremities Skin: GENERAL SKIN EXAM: no erythema OTHER: Some scarring from prior wounds dorsal medial right foot, ankle. Data 02/06/23 00:56 02/06/23 00:56 Micro: Microbiology 02/05/23 12:39 Blood Culture - Preliminary Blood SPECIMEN COLLECTED 02/05/23 11:38 Blood Culture - Preliminary Blood SPECIMEN COLLECTED A&P Assessment and plan (1) Non-pressure chronic ulcer of other part of right foot with necrosis of bone: Status post amputation third digit of the right foot. Subsequently peripheral angiogram this morning with possibility of intervention. Guarded healing potential. Discussed with cardiovascular surgery, considering whether there is possibility and benefits outweigh the risks with regards to potential femoropopliteal bypass, to further consider options with patient and family. Pending MRI evaluation of proximal foot to assess for any osteomyelitis. Discussed with his study suboptimal due to lack of contrast, she would still potentially offer better use compared to CT scan. Continue calcium and as noted will need prolonged course of antibiotic. In case no osteomyelitis, discussed still could be possibility of false negative without contrast use, consideration of longer antibiotic course empirically, but not without risk of complications. states would be concerned with proceeding that route, per discussion pending imaging results. Leukocytosis noted worse today up to 19.3, predominantly neutrophilic 14.9.. Currently continue IV antibiotic coverage empirically. Follow-up intraoperative cultures. Hx throat swelling listed as allergy to penicillins, allergy was in childhood. He has received vancomycin and has tolerated well. Reports additional treatment with vancomycin in the past. Discussed with him to follow-up with primary provider with consideration of allergy testing as he may have lost his allergy. Tolerating vancomycin so far. Assess A1c. (2) Diabetes mellitus with peripheral vascular disease: No possibility of percutaneous revascularization. Reassess renal function. Caution with fluid, at risk of overload with cardiomyopathy, EF again noted down to 30-35% on TTE. Glucose noted 128. Continue Accu-Cheks. Continue Lantus. SSI. Consistent carb diet. (3) Chest tightness: TTE noted ejection fraction down to 30-35% again. Gets occasional episodes of chest tightness. No current symptoms. EKG with nonspecific T wave abnormality. Baseline troponin 120 in setting of CKD. Discussed with him and his this morning at some point would benefit from additional cardiac risk stratification with stress testing after more acute i ssues are addressed. Intermittent chest tightness, not related to exertion, sometimes possibly rela bhavna to stress as per his . None currently. Does have a history of coronary disease, stenting. Subsequently with abnormal stress test. History of ischemic cardiomyopathy with decreased EF. Once more pressing issues are addressed, consideration may be given to further cardiac risk stratification. SL NTG as needed. Monitor with telemetry. (4) Exertional dyspnea: Discussed with him and his possible underlying pneumonia with left lower lung patchy infiltrate, additionally possibility of scar tissue plus atelectasis with small effusion, following chest tube and the report talc pleurodesis. Currently empiric IV antibiotics as above. Consideration of additional antibiotic course coverage for pneumonia in case not requiring longer course of antibiotics for lower extremity wound. Additionally noted TTE ejection fraction down to 30-35% again as above. (5) Pulmonary infiltrate present on computed tomography: Left lower lung small effusion with patchy infiltrate noted. He has not been feeling well over the last several weeks, which is difficult to tell could be secondary to the infection as third right toe, but cannot entirely fluid pneumonia. Currently empiric antibiotic coverage as above. Sputum culture if he is able to provide. Will need follow-up to resolution with primary provider. (6) CKD (chronic kidney disease): Creatinine noted 1.8. Monitor renal function with contrast administration. Receiving gentle IV hydration following contrast administration. Caution with IVF with cardiomyopathy, risk of fluid overload. Plan History of tachycardia during hospitalization: His is not sure what type of tachycardia it was, but states that after evaluation it was determined it was not atrial fibrillation. States that he has done well since then without recurrence. We will check magnesium level. Monitor on telemetry. HTN: Monitor blood pressure. Cardiac diet. Other medical problems noted. Discussed with CV surgery, cardiology and podiatry documentation reviewed. Attestations 2 Medical Necessity Statement*: Continue assessment management following infection with gangrene of the third right digit, requiring amputation, with PVD not amenable to percutaneous revascularization, guarded healing potential, consideration of further options, further assessment to exclude more proximal bone infection, in a gentleman also with diabetes, CKD and additional underlying comorbidities as above. Diagnoses Non-pressure chronic ulcer of other part of right foot with necrosis of bone L97.514 Diabetes mellitus with peripheral vascular disease E11.51 Chest tightness R07.89 Exertional dyspnea R06.09 Pulmonary infiltrate present on computed tomography R91.8 CKD (chronic kidney disease) N18.9
[2023-02-06 12:24] LABS: Estmated Average Glucose 174; Hemoglobin A1C 7.7 % (4.0-6.0)
[2023-02-06] MEDS: acetaminophen 325 mg Tablet 650 MG PO ×2 (14:42→20:00)
[2023-02-06 16:40] LABS: Glucose Point of Care 170 mg/dL (70-110)
[2023-02-06] MEDS: magnesium oxide 400 mg tablet PO (18:04)
[2023-02-06] MEDS: insulin lispro 100 unit/1 mL SUBCUT ×2 (18:04→22:17)
[2023-02-06] MEDS: aspirin 81 mg EC Tablet PO (20:00)
[2023-02-06] MEDS: TRAMadol 50 mg Tablet PO (20:00)
[2023-02-06] MEDS: vancomycin 1,500 MG/300 ML PIGGYBACK 200 MG IV (20:45)
[2023-02-06 22:24] LABS: Glucose Point of Care 159 mg/dL (70-110)
[2023-02-07] VITALS (45 sets, daily range): BP systolic 108–151; BP diastolic 56–96; PULSE 89–155; RESP 0–34; TEMP 36.8–37.3; O2SAT 88–98
[2023-02-07] MEDS: metroNIDAZOLE IV 500 MG/100 ML PREMIX 100 MG IV ×3 (00:19→15:26)
[2023-02-07 00:40] LABS: Glucose Point of Care 49 mg/dL (70-110)
[2023-02-07 01:04] LABS: Glucose Point of Care 79 mg/dL (70-110)
[2023-02-07 01:50] LABS: Glucose Point of Care 108 mg/dL (70-110)
[2023-02-07 03:58] LABS: Basophils # 0.1 10^3/uL (0.0-0.1); Basophils % 0.3 %; Eosinophils # 0.2 10^3/uL (0.0-0.8); Eosinophils % 1.1 %; Hematocrit 36.8 % (42.0-52.0); Hemoglobin 11.2 g/dL (11.7-16.6); Lymphocytes # 2.6 10^3/uL (0.8-4.8); Lymphocytes % 14.2 %; Mean Corpuscular HGB Conc 30.4 g/dL (30.0-36.0); Mean Corpuscular Hemoglobin 27.9 pg (28.0-34.0); Mean Corpuscular Volume 91.5 fl (80-94); Monocytes # 0.7 10^3/uL (0.2-0.9); Monocytes % 3.8 %; Neutrophils # 14.93 10^3/uL (1.8-7.7); Nucleated Red Blood Cells % 0 %; Platelet Count 301 10^3/cmm (130-400); Red Blood Count 4.02 10^6/uL (4.1-5.3); Red Cell Distribution Width 13.6 % (12.1-15.1); White Blood Count 18.6 10^3/uL (4.0-10.0)
[2023-02-07 04:26] LABS: Anion Gap 17.9 (5-19); Blood Urea Nitrogen 46 mg/dL (8-23); Calcium 7.7 mg/dL (8.5-10.5); Carbon Dioxide 25 mmol/L (22-29); Chloride 100 mmol/L (98-107); Glomerular Filtration Rate 16.8 mL/min (90-130); Glucose 132 mg/dL (65-115); Osmolality Calculated 300 mOsm/kg (285-295); Potassium 4.9 mmol/L (3.5-5.1); Sodium 138 mmol/L (136-145)
[2023-02-07] MEDS: heparin 5,000 unit/mL INJ 1 mL 5000 UNIT SUBCUT ×2 (05:24→17:40)
[2023-02-07] MEDS: thyroid 60 mg Tablet PO (05:25)
[2023-02-07] MEDS: FUROsemide 40 mg Tablet PO (05:25)
[2023-02-07] MEDS: sodium chloride 0.9% 1,000 ML 100 ML IV ×2 (05:27→21:05)
[2023-02-07] MEDS: aztreonam 1,000 MG in sodium chloride 0.9% (plus) 50 ML 100 MG IV ×2 (05:29→17:42)
--- NOTE | 2023-02-07 06:21 | PM.PN ---
Subjective Subjective: Mr. Alvarez was evaluated bedside this AM, he was resting comfortably. He reported a hypoglycemic event overnight. Has discomfort to his right lower extremity but no pain. Headache is subsiding. No strikethrough bleeding at his right foot dressing. Vitals/I&O/Wt Last Vital Signs Temp 98.6 F 02/07/23 03:09 Pulse 97 02/07/23 05:54 Resp 18 02/07/23 03:09 BP 134/72 02/07/23 03:09 Pulse Ox 93 02/07/23 03:09 O2 Del Method Room Air 02/07/23 03:09 O2 Flow Rate 3 02/06/23 08:00 02/06/23 02/06/23 02/07/23 14:59 22:59 06:59 Intake Total 1031.833 / 2197.136 5597.667 / 2673.500 1600 / 4273.500 Output Total 100 / 100 300 / 400 Balance 1031.833 / 0254.862 5577.667 / 2573.500 1300 / 3873.500 Weight last 48 hrs Weight 195 lb Physical Exam Narrative: GENERAL: Patient is alert and oriented ?3 and in no acute distress. The following is a focused right lower extremity exam. Accompanied by his . VASCULAR: Dorsalis pedis diminished. Right posterior tibial artery diminished. Delayed capillary refill at right fourth and fifth toes. Rubor to bilateral lower extremity, dependent. NEUROLOGICAL: Protective sensation intact 0/10 sites, tested with [place] Jennifer monofilament to bilateral feet. DERMATOLOGICAL: Right third amputation site of right third toe left open. Minimal bleeding, no purulence, rubor to the right forefoot more prominent laterally and dorsally. MUSCULOSKELETAL: Status post amputation of right great toe and second toe. Status post right third toe amputation. No pain to palpation of right foot secondary to neuropathy. No crepitus with palpation of soft tissue, right foot. Data 02/07/23 03:27 02/07/23 03:27 Micro: Microbiology 02/06/23 07:20 Gram Stain - Final Foot - Right 02/05/23 12:39 Blood Culture - Preliminary Blood NEGATIVE TO DATE 02/05/23 11:38 Blood Culture - Preliminary Blood NEGATIVE TO DATE A&P Assessment and plan (1) Diabetes mellitus with peripheral vascular disease: (2) Non-pressure chronic ulcer of other part of right foot with necrosis of bone: (3) Peripheral arterial disease: (4) Gangrenous toe: Plan 72-year-old male with diabetes and peripheral arterial disease presents with gangrenous right third toe. -Status post right third toe amputation secondary to gangrene. Date of operation 02/06/2023. Amputation site left open for delayed closure versus tertiary healing. -We will continue saline wet-to-dry dressing changes 3 times daily and evaluate for clinical improvement of soft tissue envelope, hopeful that delayed closure can be performed in the next 2 to 3 days. -Bone culture pending, to amputation was curative of osteomyelitis, antibiotics at this point are for soft tissue. -Angiography with intervention 02/06/2023, patient has extensive PAD, poor healing prognosis. Ultimately at risk for higher limb amputation, I am guarded as to TMA, more likely BKA. Patient wishing to continue limb salvage efforts. -Heel touch for transfers with postop shoe. -Podiatry will follow Dr. Goodman CurzPBerenice. cell phone [phone] Attestations Medical Necessity Statement*: Gangrene Coding Level of Care Code Acute Code for [facility] Fwd Diagnoses Diabetes mellitus with peripheral vascular disease E11.51 Non-pressure chronic ulcer of other part of right foot with necrosis of bone L97.514 Peripheral arterial disease I73.9 Gangrenous toe I96
[2023-02-07 06:31] LABS: Glucose Point of Care 126 mg/dL (70-110)
--- NOTE | 2023-02-07 08:16 | PM.PN ---
Subjective Subjective: Umsan states that he feels okay today. He thinks he had low blood sugar overnight. His leg is comfortable. Unfortunately, but not unexpectedly, his creatinine has gone up to 3.6 with a BUN of 46 today. His glomerular filtration rate is down to 16.8. Vitals/I&O/Wt Last Vital Signs Temp 98.6 F 02/07/23 03:09 Pulse 97 02/07/23 05:54 Resp 18 02/07/23 03:09 BP 134/72 02/07/23 03:09 Pulse Ox 93 02/07/23 03:09 O2 Del Method Room Air 02/07/23 03:09 O2 Flow Rate 3 02/06/23 08:00 02/06/23 02/07/23 02/07/23 22:59 06:59 14:59 Intake Total 1641.667 / 2673.500 1600 / 4273.500 Output Total 100 / 100 300 / 400 Balance 1541.667 / 2573.500 1300 / 3873.500 Weight last 48 hrs Weight 195 lb Physical Exam Narrative: GENERAL: In general he looks and feels well HEENT: Exam within normal limits. NECK: Supple without jugular vein distention. The carotid upstroke is normal without bruits. BACK: Exam normal. LUNGS: Clear. HEART: Regular rate and rhythm. ABDOMEN: Benign without organomegaly or tenderness. EXTREMITIES: No edema. NEUROLOGIC: Exam normal. SKIN: Unremarkable. Data 02/07/23 03:27 02/07/23 03:27 Micro: Microbiology 02/06/23 07:20 Gram Stain - Final Foot - Right 02/05/23 12:39 Blood Culture - Preliminary Blood NEGATIVE TO DATE 02/05/23 11:38 Blood Culture - Preliminary Blood NEGATIVE TO DATE A&P Assessment and plan (1) CKD (chronic kidney disease): (2) Non-pressure chronic ulcer of other part of right foot with necrosis of bone: (3) Diabetes mellitus with peripheral vascular disease: (4) Diabetic neuropathy: (5) Ischemic cardiomyopathy: (6) Pleural effusion, left: (7) Systolic heart failure: (8) Gangrenous toe: (9) Atrial flutter: Qualifiers: Atrial flutter type: typical Qualified Code(s): I48.3 - Typical atrial flutter (10) Atherosclerosis of coronary artery: Qualifiers: Coronary Disease-Associated Artery/Lesion type: [place] artery [place] vs. transplanted heart: [place] heart Associated angina: with other forms of angina Qualified Code(s): I25.118 - Atherosclerotic heart disease of [place] coronary artery with other forms of angina pectoris (11) Hyperlipidemia: Qualifiers: Hyperlipidemia type: mixed hyperlipidemia Qualified Code(s): E78.2 - Mixed hyperlipidemia (12) HTN (hypertension): Qualifiers: Hypertension type: essential hypertension Qualified Code(s): I10 - Essential (primary) hypertension (13) Peripheral arterial disease: (14) Contrast-induced nephropathy: Plan Follow kidney function. For now given the inability to intervene interventionally and with little to no surgical option we will follow him medically. I spoke to both him and his yesterday about all of the possibilities including eventual amputation. For now continue antibiotics. Attestations Medical Necessity Statement*: Hospital stay for treatment of gangrene, cellulitis, contrast-induced nephropathy. and Moderate Time for a total of 40 minutes, includes reviewing past or interval history, examining/interviewing patient, placing orders, counseling patient/family/other support, updating patient/family/other support, discussing plan of care with staff, communicating with other healthcare providers, documenting encounter and coordinating care Diagnoses CKD (chronic kidney disease) N18.9 Non-pressure chronic ulcer of other part of right foot with necrosis of bone L97.514 Diabetes mellitus with peripheral vascular disease E11.51 Diabetic neuropathy E11.40 Ischemic cardiomyopathy I25.5 Pleural effusion, left J90 Systolic heart failure I50.20 Gangrenous toe I96 Atrial flutter I48.3 Atrial flutter type: typical Atherosclerosis of coronary artery I25.118 Coronary Disease-Associated Artery/Lesion type: [place] artery [place] vs. transplanted heart: [place] heart Associated angina: with other forms of angina Hyperlipidemia E78.2 Hyperlipidemia type: mixed hyperlipidemia HTN (hypertension) I10 Hypertension type: essential hypertension Peripheral arterial disease I73.9 Contrast-induced nephropathy N14.11; T50.8X5A
--- NOTE | 2023-02-07 09:30 | MR_ITS ---
WS: [id number] MRI RIGHT FOOT without CONTRAST. COMPARISON: RIGHT foot radiograph 02/05/2023. Multiplanar, multisequence imaging is performed without contrast. History: Recent third toe amputation. Postoperative changes at the amputation site of the third phalanx. There is increased edema and posto perative changes in the soft tissues. No fluid collection. Typical and expected postoperative changes . No marrow edema in the residual bone. Also prior amputation involving the distal phalanx of the fir st toe. Absent second toe. Normal alignment at the tarsometatarsal junction. No additional areas of abnormal signal on this unen hanced exam. MR/MR foot RT wo con* [id number] IMPRESSION: 1. Satisfactory postoperative recent changes of amputation involving the third phalanx. 2. No marrow edema identified involving the distal third metatarsal. 3. Prior amputation distal phalanx first toe and absent second toe.
[2023-02-07 11:07] LABS: Glucose Point of Care 111 mg/dL (70-110)
[2023-02-07] MEDS: acetaminophen 325 mg Tablet 650 MG PO ×2 (15:32→21:42)
[2023-02-07 16:26] LABS: Glucose Point of Care 123 mg/dL (70-110)
[2023-02-07] MEDS: magnesium oxide 400 mg tablet PO (17:42)
[2023-02-07 20:23] LABS: Glucose Point of Care 200 mg/dL (70-110)
--- NOTE | 2023-02-07 20:30 | PC.NURSE ---
Patient monitor showing tachycardia. Rate 150's. Patient in no apparent distress. Denies chest pain. BP 141/86. Sata 12 lead EKG ordered.
--- NOTE | 2023-02-07 20:38 | ECG_ITS ---
[facility] Test Date: 2023-02-07 Pat Name: Usman Alvarez Department: Room: 101 Gender: Male Zigzag [employer]: : 1950 Requested By: Kia Moreno Order Number: [id number] Diandra MD: Harry Bryant M.D. Measurements Intervals [place] Rate: 154 P: 0 TN: 0 QRS: 8 QRSD: 99 T: 13 QT: 309 QTc: 496 Interpretive Statements ATRIAL FLUTTER WITH RAPID VENTRICULAR RESPONSE NONSPECIFIC T-WAVE ABNORMALITY Compared to ECG 02/05/2023 17:01:21 Sinus rhythm no longer present T-wave abnormality still present Electronically Signed On 02-08-2023 1:08:07 CDT by Harry Bryant M.D. [email or web address]/[id number]
[2023-02-07 20:41] LABS: Vancomycin Trough 34.1 ug/mL (10-15)
[2023-02-07 21:10] LABS: Anion Gap 16.6 (5-19); Blood Urea Nitrogen 51 mg/dL (8-23); Calcium 7.6 mg/dL (8.5-10.5); Carbon Dioxide 25 mmol/L (22-29); Chloride 98 mmol/L (98-107); Glomerular Filtration Rate 12.4 mL/min (90-130); Glucose 192 mg/dL (65-115); Magnesium 2.2 mg/dL (1.7-2.3); Osmolality Calculated 297 mOsm/kg (285-295); Potassium 5.6 mmol/L (3.5-5.1); Sodium 134 mmol/L (136-145)
[2023-02-07] MEDS: TRAMadol 50 mg Tablet PO (21:19)
[2023-02-07] MEDS: aspirin 81 mg EC Tablet PO (21:20)
--- NOTE | 2023-02-07 21:39 | P.PN_ITS ---
Subjective Subjective: He states he is doing all right today. Not in pain. No discomfort. No trouble breathing. Vitals/I&O/Wt Last Vital Signs Temp 98.6 F 02/07/23 19:41 Pulse 94 02/07/23 19:41 Resp 22 H 02/07/23 19:41 BP 127/73 02/07/23 19:41 Pulse Ox 95 02/07/23 19:41 O2 Del Method Room Air 02/07/23 19:41 O2 Flow Rate 3 02/06/23 08:00 02/07/23 02/07/23 02/07/23 06:59 14:59 22:59 Intake Total 1600 / 4273.500 1420 / 1420 1500 / 2920 Output Total 300 / 400 Balance 1300 / 3873.500 1420 / 1420 1500 / 2920 Physical Exam Narrative: Accompanied by his Const: COMMON NORMALS: patient oriented x3 and alert GENERAL APPEARANCE: cooperative ORIENTATION/CONSCIOUSNESS: Yes awake HENMT: COMMON NORMALS: oropharynx normal Neck/C-Spine: COMMON NORMALS: no JVD Resp: COMMON NORMALS: normal respiratory effort and clear to auscultation bilaterally AUSCULTATION: clear to auscultation bilaterally Cardio: COMMON NORMALS: no JVD, regular rhythm, S1 normal heart sound present, S2 normal heart sound present and No murmurs present (Cardio) RHYTHM: regular rhythm HEART SOUNDS: S1 normal heart sound present and S2 normal heart sound present GI: COMMON NORMALS: Normal to inspection, nondistended, normoactive bowel sounds present, Soft to palpation and non-tender PALPATION: Yes Soft to palpation Extremity: COMMON NORMALS: no joint enlargement and no pedal edema NARRATIVE EXTREMITY EXAM: Right foot in post-op dressing. No proximal erythema or swelling at the ankle. Neuro: COMMON NORMALS: patient oriented x3 and moves all extremities SENSORIUM/ORIENTATION: Yes alert Skin: GENERAL SKIN EXAM: no erythema OTHER: Some scarring from prior wounds dorsal medial right foot, ankle. Data 02/07/23 03:27 02/07/23 20:00 Micro: Microbiology 02/06/23 07:20 Gram Stain - Final Foot - Right Tissue Culture - Preliminary A&P Assessment and plan (1) Acute kidney injury superimposed on CKD: Worsening renal function without response to fluid challenge. Hold further IVF he is listed as cumulative +8 L, although not sure that is accurate. Requesting daily weights. Nephrology consultation. Noted developing hyperkalemia, changed to low potassium diet. Follow-up chemistry. Monitor on telemetry. Possibly progressing to renal failure at risk of electrolyte normality, arrhythmia. (2) Non-pressure chronic ulcer of other part of right foot with necrosis of nusrat ne: Appreciated reassessment by podiatry. Continue wound care. Continue empiric antibiotics. Consideration of delayed closure. MRI foot obtained today, no evidence of OM. They were reluctant for extended empiric antibiotics for ROM, will discuss results in the morning. Otherwise no option for vascular intervention. At risk of nonhealing wound, infection, additional more proximal amputation in the future. Discussed with PT. Case management. If returning home may end up needing a wheelchair due to 100 foot distance which would be difficult for him to cover. Status post amputation third digit of the right foot. Subsequently peripheral angiogram this morning with possibility of intervention. Guarded healing potential. Leukocytosis with mild improvement. Wound culture noted with 2 gram-negative rods, few gram-positive cocci in pairs, rare PMNs. A1c is reasonable at 7.7. (3) Diabetes mellitus with peripheral vascular disease: No possibility of percutaneous revascularization. Reassess renal function. Caution with fluid, at risk of overload with cardiomyopathy, EF again noted down to 30-35% on TTE. Glucose noted 128. Continue Accu-Cheks. Continue Lantus. SSI. Consistent carb diet. (4) Chest tightness: TTE noted ejection fraction down to 30-35% again. Gets occasional episodes of chest tightness. No current symptoms. EKG with nonspecific T wave abnormality. Baseline troponin 120 in setting of CKD. Discussed with him and his this morning at some point would benefit from additional cardiac risk stratification with stress testing after more acute issues are addressed. Intermittent chest tightness, not related to exertion, sometimes possibly related to stress as per his . None currently. Does have a history of coronary disease, stenting. Subsequently with abnormal stress test. History of ischemic cardiomyopathy with decreased EF. Once more pressing issues are addressed, consideration may be given to further cardiac risk stratification. SL NTG as needed. Monitor with telemetry. (5) Exertional dyspnea: Discussed with him and his possible underlying pneumonia with left lower lung patchy infiltrate, additionally possibility of scar tissue plus atelectasis with small effusion, following chest tube and the report talc pleurodesis. Currently empiric IV antibiotics as above. Consideration of additional antibiotic course coverage for pneumonia in case not requiring longer course of antibiotics for lower extremity wound. Additionally noted TTE ejection fraction down to 30-35% again as above. (6) Pulmonary infiltrate present on computed tomography: Left lower lung small effusion with patchy infiltrate noted. He has not been feeling well over the last several weeks, which is difficult to tell could be secondary to the infection as third right toe, but cannot entirely fluid pneumonia. Currently empiric antibiotic coverage as above. Sputum culture if he is able to provide. Will need follow-up to resolution with primary provider. (7) CKD (chronic kidney disease): As above. Plan History of tachycardia during hospitalization: His is not sure what type of tachycardia it was, but states that after evaluation it was determined it was not atrial fibrillation. States that he has done well since then without recurrence. We will check magnesium level. Monitor on telemetry. HTN: Monitor blood pressure. Cardiac diet. Other medical problems noted. Cardiology documentation noted. Attestations Medical Necessity Statement*: Continue assessment management following infection with gangrene of the third right digit, requiring amputation, with PVD not amenable to percutaneous revascularization, guarded healing potential, consideration of further options, further assessment to exclude more proximal bone infection, in a gentleman also with diabetes, CKD and additional underlying comorbidities as above. Diagnoses Acute kidney injury superimposed on CKD N17.9; N18.9 Non-pressure chronic ulcer of other part of right foot with necrosis of bone L97.514 Diabetes mellitus with peripheral vascular disease E11.51 Chest tightness R07.89 Exertional dyspnea R06.09 Pulmonary infiltrate present on computed tomography R91.8 CKD (chronic kidney disease) N18.9
[2023-02-07] MEDS: metoprolol tartrate 1 mg/1 mL SDV 5 mL 5 MG IVP (21:43)
--- NOTE | 2023-02-07 21:49 | ECG_ITS ---
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 Measurements Intervals [place] Rate: 145 P: 68 WI: 159 QRS: 58 QRSD: 96 T: 21 QT: 325 QTc: 506 Interpretive Statements ATRIAL FLUTTER WITH RAPID VENTRICULAR RATE NONSPECIFIC T-WAVE ABNORMALITY ABNORMAL RHYTHM ECG Compared to ECG 02/07/2023 20:38:24 No significant changes Electronically Signed On 02-08-2023 1:07:38 CDT by Harry Bryant M.D. [id number]
--- NOTE | 2023-02-07 22:00 | PC.NURSE ---
Dr. Munguia at bedside. Order received for adenosine. Adenosine given at 2222. Patient tolerated administration well. No CP. No nausea. HR response to 93.
[2023-02-07] MEDS: adenosine 3 mg/mL SDV 2mL 6 MG IVP (22:21)
--- NOTE | 2023-02-07 22:25 | PM.MISC ---
Miscellaneous Note Note: I received a call from the hospitalist a short time ago that the patient's heart rate was 150 bpm. Twelve-lead EKG appears to show SVT. The hospitalist gave him 5 mg of IV metoprolol which did not make a difference. I came in to see him. He is hemodynamically stable and actually does not even feel the tachycardia. I tried carotid sinus massage and Valsalva neither of which made a difference. I then gave him 6 mg of adenosine IV which immediately converted him to sinus rhythm. Continue present care.
[2023-02-07] MEDS: ondansetron 2 mg/ML SDV 2 mL 4 MG IVP (22:57)
[2023-02-08] VITALS (30 sets, daily range): BP systolic 116–181; BP diastolic 56–111; PULSE 70–121; RESP 16–34; TEMP 36.3–36.9; O2SAT 88–98
[2023-02-08] MEDS: metroNIDAZOLE IV 500 MG/100 ML PREMIX 100 MG IV ×3 (00:43→22:23)
[2023-02-08 02:31] LABS: Basophils # 0.1 10^3/uL (0.0-0.1); Basophils % 0.4 %; Eosinophils # 0.2 10^3/uL (0.0-0.8); Eosinophils % 0.9 %; Hematocrit 36.4 % (42.0-52.0); Hemoglobin 11.2 g/dL (11.7-16.6); Lymphocytes # 2.4 10^3/uL (0.8-4.8); Lymphocytes % 12.7 %; Mean Corpuscular HGB Conc 30.8 g/dL (30.0-36.0); Mean Platelet Volume 9.1 fL (7.4-10.4); Monocytes # 0.7 10^3/uL (0.2-0.9); Monocytes % 3.9 %; Neutrophils # 15.23 10^3/uL (1.8-7.7); Neutrophils % 81.5 %; Nucleated Red Blood Cells % 0 %; Platelet Count 289 10^3/cmm (130-400); Red Cell Distribution Width 13.9 % (12.1-15.1); White Blood Count 18.7 10^3/uL (4.0-10.0)
[2023-02-08 02:53] LABS: Anion Gap 19.3 (5-19); Blood Urea Nitrogen 54 mg/dL (8-23); Calcium 7.7 mg/dL (8.5-10.5); Carbon Dioxide 22 mmol/L (22-29); Chloride 99 mmol/L (98-107); Glomerular Filtration Rate 11.3 mL/min (90-130); Glucose 148 mg/dL (65-115); Osmolality Calculated 298 mOsm/kg (285-295); Potassium 5.3 mmol/L (3.5-5.1); Sodium 135 mmol/L (136-145)
[2023-02-08] MEDS: FUROsemide 40 mg Tablet PO (05:33)
[2023-02-08] MEDS: aztreonam 1,000 MG in sodium chloride 0.9% (plus) 50 ML 100 MG IV ×2 (05:33→21:18)
[2023-02-08] MEDS: thyroid 60 mg Tablet PO (05:33)
[2023-02-08] MEDS: insulin glargine 100 units/1 mL 36 UNIT SUBCUT (05:34)
[2023-02-08] MEDS: heparin 5,000 unit/mL INJ 1 mL 5000 UNIT SUBCUT (05:34)
[2023-02-08 06:33] LABS: Glucose Point of Care 127 mg/dL (70-110)
--- NOTE | 2023-02-08 07:52 | PM.PN ---
Subjective Subjective: Patient seen bedside this morning, was resting comfortably. His is present. Patient denies any subjective nausea, vomiting, fever, chills, shortness of breath or chest pain. Vitals/I&O/Wt Last Vital Signs Temp 98.1 F 02/08/23 03:05 Pulse 91 02/08/23 06:00 Resp 16 02/08/23 03:05 BP 133/72 02/08/23 03:05 Pulse Ox 96 02/08/23 03:05 O2 Del Method Room Air 02/08/23 03:05 O2 Flow Rate 3 02/06/23 08:00 02/07/23 02/08/23 02/08/23 22:59 06:59 14:59 Intake Total 1575 / 2995 Balance 1575 / 2995 Weight last 48 hrs Weight 8 lb Physical Exam Narrative: GENERAL: Patient is alert and oriented ?3 and in no acute distress. The following is a focused right lower extremity exam. Accompanied by his . VASCULAR: Dorsalis pedis diminished. Right posterior tibial artery diminished. Delayed capillary refill at right fourth and fifth toes. Rubor to bilateral lower extremity, dependent. NEUROLOGICAL: Protective sensation intact 0/10 sites, tested with [place] Jennifer monofilament to bilateral feet. DERMATOLOGICAL: Right third amputation site of right third toe left open. Minimal bleeding, no purulence, improving rubor to the right forefoot more prominent laterally and dorsally. MUSCULOSKELETAL: Status post amputation of right great toe and second toe. Status post right third toe amputation. No pain to palpation of right foot secondary to neuropathy. No crepitus with palpation of soft tissue, right foot. Data 02/08/23 00:08 02/08/23 00:08 Micro: Microbiology 02/06/23 07:20 Gram Stain - Final Foot - Right Tissue Culture - Preliminary A&P Assessment and plan (1) Diabetes mellitus with peripheral vascular disease: (2) Non-pressure chronic ulcer of other part of right foot with necrosis of bone: (3) Peripheral arterial disease: (4) Gangrenous toe: Plan 72-year-old male with diabetes and peripheral arterial disease presents with gangrenous right third toe. -Status post right third toe amputation secondary to gangrene. Date of operation 02/06/2023. Amputation site left open for delayed closure versus tertiary healing. -We will continue saline wet-to-dry dressing changes 3 times daily and evaluate for clinical improvement of soft tissue envelope, hopeful that delayed closure can be performed in the next 2 to 3 days. -Bone culture pending, to amputation was curative of osteomyelitis, antibiotics at this point are for soft tissue. -Angiography with intervention 02/06/2023, patient has extensive PAD, poor healing prognosis. Ultimately at risk for higher limb amputation, I am guarded as to TMA, more likely BKA. Patient wishing to continue limb salvage efforts. Some clinical improvement at the right foot. We will plan for further irrigation and delayed closure tomorrow a.m. -N.p.o. at midnight -Heel touch for transfers with postop shoe. -Podiatry will follow Dr. Goodman CruzP.Kevin. cell phone [phone] Attestations Medical Necessity Statement*: Gangrene right foot Coding Level of Care Code Acute Code for [facility] Fwd Diagnoses Diabetes mellitus with peripheral vascular disease E11.51 Non-pressure chronic ulcer of other part of right foot with necrosis of bone L97.514 Peripheral arterial disease I73.9 Gangrenous toe I96
--- NOTE | 2023-02-08 08:24 | P.PN_ITS ---
Subjective Subjective: Usman had an episode of SVT last night around 10:00. Please see my note from last evening for management. He has remained in sinus rhythm overnight. His urine output has dropped off. He even recognizes that he is not urinating. This morning his creatinine is up to 5.1 with a BUN of 54 and glomerular filtration rate of 11.3. His potassium is 5.3. He does not feel well. He is a little nauseated. He has not had any vomiting. He does not have an appetite. Vitals/I&O/Wt Last Vital Signs Temp 98.4 F 02/08/23 07:51 Pulse 91 02/08/23 07:51 Resp 28 H 02/08/23 07:51 BP 160/81 02/08/23 07:51 Pulse Ox 97 02/08/23 07:51 O2 Del Method Room Air 02/08/23 07:51 O2 Flow Rate 3 02/06/23 08:00 02/07/23 02/08/23 02/08/23 22:59 06:59 14:59 Intake Total 1575 / 2995 150 / 150 Balance 1575 / 2995 150 / 150 Weight last 48 hrs Weight 8 lb Physical Exam Narrative: GENERAL: In general he looks and feels somewhat uncomfortable HEENT: Exam within normal limits. NECK: Supple without jugular vein distention. The carotid upstroke is normal without bruits. BACK: Exam normal. LUNGS: Clear. HEART: Regular rate and rhythm. ABDOMEN: Benign without organomegaly or tenderness. EXTREMITIES: No edema. NEUROLOGIC: Exam normal. SKIN: Unremarkable. Data 02/08/23 00:08 02/08/23 00:08 Micro: Microbiology 02/06/23 07:20 Gram Stain - Final Foot - Right Tissue Culture - Preliminary A&P Assessment and plan (1) Contrast-induced nephropathy: (2) Acute kidney injury superimposed on CKD: (3) Non-pressure chronic ulcer of other part of right foot with necrosis of nusrat ne: (4) Diabetes mellitus with peripheral vascular disease: (5) Ischemic cardiomyopathy: (6) Pleural effusion, left: (7) Systolic heart failure: (8) Status post amputation of toe of right foot: (9) Atrial flutter: Qualifiers: Atrial flutter type: typical Qualified Code(s): I48.3 - Typical atrial flutter (10) Diabetes mellitus with chronic kidney disease: (11) HTN (hypertension): Qualifiers: Hypertension type: essential hypertension Qualified Code(s): I10 - Esse ntial (primary) hypertension (12) Peripheral arterial disease: (13) SVT (supraventricular tachycardia): Plan He will likely need nephrology involvement and possibly the dialysis. Currently he is not uremic and his potassium though slightly high is stable. 1 could try some Lasix to see if we can get his kidneys going. This is an unfortunate complication of underlying kidney disease with diabetes and application of contrast material. He and I discussed this before the angiogram. Attestations Medical Necessity Statement*: Continued hospitalization necessary for management of multiple medical problems including contrast-induced nephropathy, severe peripheral arterial disease with limb ischemia among others. and High Time for a total of 50 minutes, includes reviewing past or interval history, examining/interviewing patient, placing orders, counseling patient/family/other support, updating patient/family/other support, discussing plan of care with staff, communicating with other healthcare providers, documenting encounter and coordinating care Diagnoses Contrast-induced nephropathy N14.11; T50.8X5A Acute kidney injury superimposed on CKD N17.9; N18.9 Non-pressure chronic ulcer of other part of right foot with necrosis of bone L97.514 Diabetes mellitus with peripheral vascular disease E11.51 Ischemic cardiomyopathy I25.5 Pleural effusion, left J90 Systolic heart failure I50.20 Status post amputation of toe of right foot Z89.421 Atrial flutter I48.3 Atrial flutter type: typical Diabetes mellitus with chronic kidney disease E11.22 HTN (hypertension) I10 Hypertension type: essential hypertension Peripheral arterial disease I73.9 SVT (supraventricular tachycardia) I47.1
--- NOTE | 2023-02-08 08:33 | XRR_ITS ---
PROCEDURE INFORMATION: Exam: XR Chest Exam date and time: 02/08/2023 11:04 AM Age: 72 years old Clinical indication: Shortness of breath; Additional info: Assess for pna TECHNIQUE: Imaging protocol: Radiologic exam of the chest. Views: 1 view. COMPARISON: CR (CHEST, ) 09/22/2022 5:12 PM FINDINGS: Lungs: Left basilar consolidation concerning for possible pneumonia versus scarring versus atelectasis. This is overall similar to prior exam. The remainder of the lung parenchyma is clear. Pleural spaces: The right costophrenic angle remain sharp. Difficult to exclude left-sided pleural effusion given left basilar consolidation. Heart/Mediastinum: The cardiomediastinal silhouette is within normal limits. Bones/joints: Unremarkable. XR/XR chest 1V portable [id number] IMPRESSION: Left basilar consolidation concerning for pneumonia, scarring, or atelectasis. This is overall similar to prior exam.
[2023-02-08] MEDS: metoprolol tartrate 25 mg Tablet PO ×2 (09:02→21:00)
[2023-02-08] MEDS: ondansetron 2 mg/ML SDV 2 mL 4 MG IVP (09:21)
--- NOTE | 2023-02-08 10:50 | P.CONIM_ITS ---
Providers/Reason For Consult Consulting Physician/Specialty*: [facility]/nephrology Reason for Consult*: sally Attending Physician: Paddy Madsen Primary Care Provider: Beatriz Brady History of Present Illness History of Present Illness Usman Alvarez is a 72 year old male with past medical history of coronary artery disease prior stents, ischemic cardiomyopathy with ejection fraction 35%, diabetes hypertension, peripheral vascular disease presented to the hospital on 02/05/2023 due to right third toe. Patient initially had a CT angiogram showing right SFA occlusion and left sided multilevel stenosis. Patient had underwent a right third toe amputation on 02/06/2023. He also had a CT angiogram with runoff.. His creatinine on presentation is 1.7, he has a history of CKD with a baseline creatinine of 1.7-2 range. And patient follows with Dr. Julio from nephrology as outpatient in [place]. Patient's creatinine has further gotten worse in the last 48 hours to 5.1 today along with hyperkalemia with a potassium of 5.3 and metabolic acidosis with a bicarbonate level of 19. His urine output has dropped as well Review of Systems Narrative: On review of systems negative Medications/Allergies Home Medications Medication Instructions Recorded Confirmed Last Taken Type garlic 1,000 mg capsule 1,000 mg PO BEDTIME 08/31/19 02/05/23 02/04/23 History furosemide 40 mg tablet 40 mg PO QAM 09/25/21 02/05/23 02/04/23 History see pharmacy comment tramadol 50 mg tablet 50 mg PO BEDTIME 06/14/22 02/05/23 06/14/22 History potassium chloride 10 mEq 10 meq PO DAILY #30 tabs 12/09/22 02/05/23 2 Weeks Ago Rx tablet,extended release ~01/22/23 linezolid 600 mg tablet (Zyvox) 600 mg PO BID #14 tabs 01/31/23 02/05/23 02/05/23 05:30 Rx Clean Spleen Capsules 1 cap PO DAILY 02/05/23 02/05/23 Unknown History Dna Insulin Drops 10 drp buccal BID 02/05/23 02/05/23 Unknown History Mullein Drops See Rx Instructions .Route .COMPLEX 02/05/23 02/05/23 Unknown History Vitamin B Complex Liquid See Rx Instructions .Route .COMPLEX 02/05/23 02/05/23 Unknown History acetylcysteine 600 mg capsule (NAC) 600 mg PO DAILY 02/05/23 02/05/23 Unknown History aspirin 81 mg tablet,delayed 81 mg PO BEDTIME 02/05/23 02/05/23 1 Week Ago History release ~01/29/23 hawthorn 500 mg capsule (hawthorn 500 mg PO BID 02/05/23 02/05/23 Unknown History tejada) insulin detemir U-100 100 unit/mL 36 unit SUBCUT QAM 02/05/23 02/05/23 02/05/23 History (3 mL) subcutaneous pen (Levemir FlexPen) insulin regular human 100 unit/mL See Rx Instructions .Route .COMPLEX 02/05/23 02/05/23 Unknown History injection solution (Novolin R Regular U-100 Insulin) magnesium oxide 400 mg PO QPM 02/05/23 02/05/23 Unknown History nitroglycerin 0.4 mg sublingual 0.4 mg sublingual Q5M PRN Chest 02/05/23 02/05/23 Unknown History tablet (Nitrostat) Pain resveratrol 100 mg capsule 100 mg PO BID 02/05/23 02/05/23 Unknown History thyroid (pork) 60 mg tablet 60 mg PO QAM 02/05/23 02/05/23 1 Week Ago History ([place] Thyroid) ~01/29/23 Allergies Allergy/AdvReac Type Severity Reaction Status Date / Time Penicillins Allergy Severe Throat Verified 02/05/23 14:24 swells amiodarone Allergy Unknown Verified 02/05/23 14:24 azithromycin Allergy ADR/ALGY-Pa Verified 02/05/23 14:24 lpitations ciprofloxacin Allergy hallucinations Verified 02/05/23 14:24 and burning sensation in legs Cordarone Allergy Unknown Confusion Uncoded 10/14/22 13:31 Current Medications Generic Name Dose Route Start Last Admin Trade Name Freq PRN Reason Stop Dose Admin Acetaminophen 650 mg 02/05/23 15:48 02/07/23 21:42 Acetaminophen 325 Mg Tablet PO 650 mg Q6H PRN Administration Mild/Mod Pain Or Temp >/= 101 Aspirin 81 mg 02/05/23 21:00 02/07/23 21:20 Aspirin 81 Mg Ec Tablet PO 81 mg BEDTIME SAHARA Administration Furosemide 40 mg 02/06/23 06:00 02/08/23 05:33 Furosemide 40 Mg Tablet PO 40 mg QAM SAHARA Administration Heparin Sodium (Porcine) 5,000 unit 02/05/23 18:00 02/08/23 05:34 Heparin 5,000 Unit/Ml Inj 1 Ml SUBCUT 5,000 unit Q12H SAHARA Administration Aztreonam 1,000 mg/ Sodium 50 mls @ 100 mls/hr 02/05/23 17:00 02/08/23 08:08 Chloride IV Infused Q12H SAHARA Infusion Protocol Metronidazole 500 mg in 100 mls @ 100 mls/hr 02/05/23 16:30 02/08/23 10:12 Flagyl Iv IV Infused Q8H SAHARA Infusion Protocol Sodium Chloride 1,000 mls @ 100 mls/hr 02/06/23 10:47 02/07/23 21:05 Sodium Chloride 0.9% IV 100 mls/hr .Q10H SAHARA Administration Insulin Glargine 36 unit 02/06/23 06:00 02/08/23 05:34 Insulin Glargine 100 Units/1 Ml SUBCUT 36 unit QAM SAHARA Administration Insulin Human Lispro 0 unit 02/05/23 18:00 02/08/23 08:10 Insulin Lispro 100 Unit/1 Ml SUBCUT Not Given WM&BEDTIME SAHARA Protocol Magnesium Oxide 400 mg 02/05/23 18:00 02/07/23 17:42 Magnesium Oxide 400 Mg Tablet PO 400 mg QPM SAHARA Administration Metoprolol Tartrate 25 mg 02/08/23 09:00 02/08/23 09:02 Metoprolol Tartrate 25 Mg Tablet PO 25 mg BID SAHARA Administration Non-Formulary Medication 600 mg 02/06/23 09:00 02/08/23 09:04 Acetylcysteine [Nac] PO Not Given DAILY SAHARA Non-Formulary Medication 10 drop 02/05/23 18:00 02/08/23 09:04 Dna Insulin Drops BUCCAL Not Given BID SAHARA Ondansetron HCl 4 mg 02/05/23 15:48 02/08/23 09:21 Ondansetron 2 Mg/Ml Sdv 2 Ml IVP 4 mg Q8H PRN Administration vomiting, or N/V if npo Thyroid 60 mg 02/06/23 06:00 02/08/23 05:33 Thyroid 60 Mg Tablet PO 60 mg QAM SAHARA Administration Tramadol HCl 50 mg 02/05/23 21:00 02/07/23 21:19 Tramadol 50 Mg Tablet PO 50 mg BEDTIME SAHARA Administration PFSH Acute PFSH: Medical History (Updated 02/08/23 @ 08:26 by Domenico Munguia MD) Amputation toe Atherosclerosis of coronary artery CKD (chronic kidney disease) Diabetes Diabetes mellitus with peripheral vascular disease Diabetic neuropathy Diabetic ulcer of right foot HTN (hypertension) Ischemic cardiomyopathy Kidney stone Non-healing ulcer Pleural effusion, left SVT (supraventricular tachycardia) Systolic heart failure Surgical History H/O chest tube placement S/P cataract extraction S/P cholecystectomy S/P tonsillectomy Family History Father Cancer LUNG Mother CAD (coronary artery disease) Diabetes CHF (congestive heart failure) Myocardial infarction Social History Smoking and tobacco status: never smoked Alcohol intake: never Substance/Drug Use: never Household members: spouse Marital status: Current occupational status: retired Vitals/I&O/Wt Last Vital Signs Temp 98.4 F 02/08/23 07:51 Pulse 91 02/08/23 07:51 Resp 28 H 02/08/23 07:51 BP 160/81 02/08/23 07:51 Pulse Ox 97 02/08/23 08:50 O2 Del Method Room Air 02/08/23 08:50 O2 Flow Rate 3 02/06/23 08:00 02/07/23 02/08/23 02/08/23 22:59 06:59 14:59 Intake Total 1575 / 2995 250 / 250 Balance 1575 / 2995 250 / 250 Weight last 48 hrs Weight 3.629 kg Physical Exam Narrative: Patient is awake alert with no acute distress, on room air HEENT S1-S2 regular rate and rhythm per report Clear to auscultation per report Right foot dressed, has pedal edema Data 02/08/23 00:08 02/08/23 00:08 Micro: Microbiology 02/06/23 07:20 Gram Stain - Final Foot - Right Tissue Culture - Preliminary A&P Assessment and plan (1) Acute kidney injury superimposed on CKD: 1. Acute on chronic kidney disease stage III: Baseline creatinine is in the 1.7-2 range. Patient now has SALLY's-multifactorial secondary to ATN from acute infection, contrast nephropathy -Creatinine getting worse along with hyperkalemia and metabolic acidosis -Requested temporary HD catheter placement and initiate HD. -Anticipate patient renal function to get further worse without dialysis. Discussed with patient and patient's at bedside, who agreed for temporary dialysis. 2. Hyperkalemia: Placed on low potassium diet, check BMP this afternoon, will give a dose of Lasix, and amp of bicarbonate 3. History of hypertension: Blood pressure controlled 4. Metabolic acidosis: Secondary to lactic acidosis, 5 severe peripheral vascular disease: Status post right toe amputation. 6. History of coronary artery disease and prior stents Patient evaluated using audiovisual cart. Time spent 40 minutes. - Consult Attestations Medical Necessity Statement: Per medicine Coding Level of Care Code Acute Code for Chg Fwd Diagnoses Acute kidney injury superimposed on CKD N17.9; N18.9
[2023-02-08 12:10] LABS: Glucose Point of Care 92 mg/dL (70-110)
[2023-02-08] MEDS: pantoprazole 40 mg SDV IVP (13:32)
[2023-02-08] MEDS: diphenhydrAMINE 50 mg/mL SDV 1mL 12.5 MG IVP (13:34)
--- NOTE | 2023-02-08 14:02 | P.PN_ITS ---
Subjective Subjective: This morning had nausea, vomited. Currently feeling slightly better. Vitals/I&O/Wt Last Vital Signs Temp 97.7 F 02/08/23 11:33 Pulse 79 02/08/23 11:33 Resp 17 02/08/23 11:33 BP 119/71 02/08/23 11:33 Pulse Ox 97 02/08/23 11:33 O2 Del Method Room Air 02/08/23 11:33 O2 Flow Rate 3 02/06/23 08:00 02/07/23 02/08/23 02/08/23 22:59 06:59 14:59 Intake Total 1575 / 2995 250 / 250 Balance 1575 / 2995 250 / 250 Weight last 48 hrs Weight 3.629 kg Physical Exam Narrative: Accompanied by his Const: COMMON NORMALS: patient oriented x3 and alert GENERAL APPEARANCE: cooperative ORIENTATION/CONSCIOUSNESS: Yes awake OTHER: Somnolent, wakes up to voice. HENMT: COMMON NORMALS: oropharynx normal Neck/C-Spine: COMMON NORMALS: no JVD Resp: COMMON NORMALS: normal respiratory effort and clear to auscultation bilaterally AUSCULTATION: clear to auscultation bilaterally Cardio: COMMON NORMALS: no JVD, regular rhythm, S1 normal heart sound present, S2 normal heart sound present and No murmurs present (Cardio) RHYTHM: regular rhythm HEART SOUNDS: S1 normal heart sound present and S2 normal heart sound present GI: COMMON NORMALS: Normal to inspection, nondistended, normoactive bowel sounds present, Soft to palpation and non-tender PALPATION: Yes Soft to palpation Extremity: COMMON NORMALS: no joint enlargement and no pedal edema NARRATIVE EXTREMITY EXAM: Right foot in post-op dressing. No proximal erythema or swelling at the ankle. Neuro: COMMON NORMALS: patient oriented x3 and moves all extremities SENSORIUM/ORIENTATION: Yes alert Skin: GENERAL SKIN EXAM: no erythema OTHER: Some scarring from prior wounds dorsal medial right foot, ankle. Data 02/08/23 00:08 02/08/23 00:08 Micro: Microbiology 02/06/23 07:20 Gram Stain - Final Foot - Right Tissue Culture - Preliminary A&P Assessment and plan (1) Acute kidney injury superimposed on CKD: Acute renal failure, anuria. Discussed with nephrology, appreciate consultation, documentation reviewed, anticipated further deterioration, possibly severe and/or life-threatening without dialysis. Temporary hemodialysis catheter and dialysis tonight. No uremia in setting of cardiomyopathy, high risk of CHF decompensation, electro abnormality with hyperkalemia, potassium 5.3, metabolic acidosis, and gap of 19.3, bicarb down to 22. Creatinine with rapid rise, currently 5.1. This morning nausea, vomiting. Noted developing hyperkalemia, changed to low potassium diet. Follow-up chemistry. Monitor on telemetry. Possibly progressing to renal failure at risk of electrolyte normality, arrhythmia. (2) Non-pressure chronic ulcer of other part of right foot with necrosis of bone: Discussed with podiatry, wound is appearing better today, still guarded long- term prognosis, discussed with patient again still elevated risk that down the line may end up requiring BKA. However, tomorrow if wound continues to be in improved condition consideration may be given to closure. Continue wound care. Continue empiric antibiotics. Consideration of delayed closure. MRI foot obtained today, no evidence of OM. They would not want extended empiric antibiotics for OM. Consideration of shorter course of antibiotic at discharge additionally with coverage for possible pneumonia. He is afebrile, but leukocytosis is noted persistent 18.7. Most neutrophilic 15.23. Wound culture day 1 reviewed, results to follow. Blood culture remaining negative so far. With persistent leukocytosis additionally requested chest x-ray, UA if possible to obtain, although may be difficult with oliguria/anuria, kidney, bladder ultrasound. Discussed with case management. Otherwise no option for vascular intervention. At risk of nonhealing wound, inf ection, additional more proximal amputation in the future. Status post amputation third digit of the right foot. Subsequently peripheral angiogram this morning with possibility of intervention. Guarded healing potential. (3) Diabetes mellitus with peripheral vascular disease: A1c is reasonable at 7.7. Glucose noted 148. Continue Accu-Cheks. Continue Lantus. SSI. Consistent carb diet when resumed, currently n.p.o. (4) Chest tightness: TTE noted ejection fraction down to 30-35% again. Gets occasional episodes of chest tightness. No current symptoms. EKG with nonspecific T wave abnormality. Baseline troponin 120 in setting of CKD. Discussed with him and his this morning at some point would benefit from additional cardiac risk stratification with stress testing after more acute issues are addressed. Intermittent chest tightness, not related to exertion, sometimes possibly related to stress as per his . None currently. Does have a history of coronary disease, stenting. Subsequently with abnormal stress test. History of ischemic cardiomyopathy with decreased EF. Once more pressing issues are addressed, consideration may be given to further cardiac risk stratification. SL NTG as needed. Monitor with telemetry. (5) Exertional dyspnea: Discussed with him and his possible underlying pneumonia with left lower lung patchy infiltrate, additionally possibility of scar tissue plus atelectasis with small effusion, following chest tube and the report talc pleurodesis. Currently empiric IV antibiotics as above. Consideration of additional antibiotic course coverage for pneumonia in case not requiring longer course of antibiotics for lower extremity wound. Additionally noted TTE ejection fraction down to 30-35% again as above. (6) Pulmonary infiltrate present on computed tomography: Left lower lung small effusion with patchy infiltrate noted. He has not been feeling well over the last several weeks, which is difficult to tell could be secondary to the infection as third right toe, but cannot entirely fluid pneumonia. Currently empiric antibiotic coverage as above. Sputum culture if he is able to provide. Will need follow-up to resolution with primary provider. (7) CKD (chronic kidney disease): As above. Plan History of tachycardia during hospitalization: His is not sure what type of tachycardia it was, but states that after evaluation it was determined it was not atrial fibrillation. States that he has done well since then without recurrence. We will check magnesium level. Monitor on telemetry. HTN: Monitor blood pressure. Cardiac diet. Other medical problems noted. Cardiology documentation noted. Attestations Medical Necessity Statement*: Continue admission for assessment management of acute renal failure with SALLY on CKD, HTN, with underlying cardiomyopathy, treatment of complicated wound with peripheral vascular disease status post amputation of gangrenous third right toe with underlying diabetes. Diagnoses Acute kidney injury superimposed on CKD N17.9; N18.9 Non-pressure chronic ulcer of other part of right foot with necrosis of bone L97.514 Diabetes mellitus with peripheral vascular disease E11.51 Chest tightness R07.89 Exertional dyspnea R06.09 Pulmonary infiltrate present on computed tomography R91.8 CKD (chronic kidney disease) N18.9
--- NOTE | 2023-02-08 14:50 | SC_ITS ---
WS: [id number] C-arm FL for CVA [id number] REASON FOR EXAM: dialysis cath placement FINDINGS: Right subclavian dual lumen catheter placement with the tip in the superior vena cava above the right atrium. SC/C-arm FL for CVA [id number] IMPRESSION: Catheter placement as above.
--- NOTE | 2023-02-08 15:32 | PM.CONSULT ---
Providers/Reason For Consult Consulting Physician/Specialty*: Jagdeep gibson MD generl surgeon Reason for Consult*: place dialysis catheter Requesting Physician: see below Attending Physician: Paddy Madsen Primary Care Provider: Beatriz Brady History of Present Illness History of Present Illness Usman Alvarez is a 72 year old male recently had foot/toe amputation and needs it closed in OR tomorrow. He developed contast induced nephropathy/ATN and needs temporary dialysis catheter placed. He has had PICC line in past but never had diaylis catheter or central line. He did not eat today because of nausea. Nephrology wants to dialyze him prior to closure of open amputation site tomorrow Review of Systems Narrative: Constitutional: denies rigors, singnificant weight gain, increased appetite HEENT: denies chronic cough, blurry vision, excessive tearing, eye pain, flashing lights, odynophagia, painful mastication, change in voice, change in taste, chronic sore throat, hypersalivation Heart: denies racing heart, palpitations, othropnea, PND Lungs: denies hemoptysis, pain with deep inspiration, chronic bronchitis GI: denies hematemesis, hematochezia, dysphagia, tenesmus : denies polyuria, hematuria, painful micturation Musculoskeletal: denies hemarthrosis, Muscle wasting, change in amubation Neuro: denies new onset syncope, dysesthesia, dysequilibrium, ptosis eyelid or face SKin: denies new onset hyperalgia, new rash new cyanosis Endocrine: denies new polyuria, polydipsia, polyphagia, heat intolerance, excessive energy Hem/Onc: denies new petechiae, swollen glands, new excessive epstaxis Psych: denies racing thought Medications/Allergies Home Medications Medication Instructions Recorded Confirmed Last Taken Type garlic 1,000 mg capsule 1,000 mg PO BEDTIME 08/31/19 02/05/23 02/04/23 History furosemide 40 mg tablet 40 mg PO QAM 09/25/21 02/05/23 02/04/23 History see pharmacy comment tramadol 50 mg tablet 50 mg PO BEDTIME 06/14/22 02/05/23 06/14/22 History potassium chloride 10 mEq 10 meq PO DAILY #30 tabs 12/09/22 02/05/23 2 Weeks Ago Rx tablet,extended release ~01/22/23 linezolid 600 mg tablet (Zyvox) 600 mg PO BID #14 tabs 01/31/23 02/05/23 02/05/23 05:30 Rx Clean Spleen Capsules 1 cap PO DAILY 02/05/23 02/05/23 Unknown History Dna Insulin Drops 10 drp buccal BID 02/05/23 02/05/23 Unknown History Mullein Drops See Rx Instructions .Route .COMPLEX 02/05/23 02/05/23 Unknown History Vitamin B Complex Liquid See Rx Instructions .Route .COMPLEX 02/05/23 02/05/23 Unknown History acetylcysteine 600 mg capsule (NAC) 600 mg PO DAILY 02/05/23 02/05/23 Unknown History aspirin 81 mg tablet,delayed 81 mg PO BEDTIME 02/05/23 02/05/23 1 Week Ago History release ~01/29/23 hawthorn 500 mg capsule (hawthorn 500 mg PO BID 02/05/23 02/05/23 Unknown History tejada) insulin detemir U-100 100 unit/mL 36 unit SUBCUT QAM 02/05/23 02/05/23 02/05/23 History (3 mL) subcutaneous pen (Levemir FlexPen) insulin regular human 100 unit/mL See Rx Instructions .Route .COMPLEX 02/05/23 02/05/23 Unknown History injection solution (Novolin R Regular U-100 Insulin) magnesium oxide 400 mg PO QPM 02/05/23 02/05/23 Unknown History nitroglycerin 0.4 mg sublingual 0.4 mg sublingual Q5M PRN Chest 02/05/23 02/05/23 Unknown History tablet (Nitrostat) Pain resveratrol 100 mg capsule 100 mg PO BID 02/05/23 02/05/23 Unknown History thyroid (pork) 60 mg tablet 60 mg PO QAM 02/05/23 02/05/23 1 Week Ago History ([place] Thyroid) ~01/29/23 Allergies Allergy/AdvReac Type Severity Reaction Status Date / Time Penicillins Allergy Severe Throat Verified 02/05/23 14:24 swells amiodarone Allergy Unknown Verified 02/05/23 14:24 azithromycin Allergy ADR/ALGY-Pa Verified 02/05/23 14:24 lpitations ciprofloxacin Allergy hallucinations Verified 02/05/23 14:24 and burning sensation in legs Cordarone Allergy Unknown Confusion Uncoded 10/14/22 13:31 Current Medications Generic Name Dose Route Start Last Admin Trade Name Jarrett PRN Reason Stop Dose Admin Acetaminophen 650 mg 02/05/23 15:48 02/07/23 21:42 Acetaminophen 325 Mg Tablet PO 650 mg Q6H PRN Administration Mild/Mod Pain Or Temp >/= 101 Aspirin 81 mg 02/05/23 21:00 02/07/23 21:20 Aspirin 81 Mg Ec Tablet PO 81 mg BEDTIME SAHARA Administration Furosemide 40 mg 02/06/23 06:00 02/08/23 05:33 Furosemide 40 Mg Tablet PO 40 mg QAM SAHARA Administration Heparin Sodium (Porcine) 5,000 unit 02/05/23 18:00 02/08/23 05:34 Heparin 5,000 Unit/Ml Inj 1 Ml SUBCUT 5,000 unit Q12H SAHARA Administration Aztreonam 1,000 mg/ Sodium 50 mls @ 100 mls/hr 02/05/23 17:00 02/08/23 08:08 Chloride IV Infused Q12H SAHARA Infusion Protocol Metronidazole 500 mg in 100 mls @ 100 mls/hr 02/05/23 16:30 02/08/23 10:12 Flagyl Iv IV Infused Q8H [facility] Infusion Protocol Sodium Chloride 1,000 mls @ 100 mls/hr 02/06/23 10:47 02/07/23 21:05 Sodium Chloride 0.9% IV 100 mls/hr .Q10H SAHARA Administration Insulin Glargine 36 unit 02/06/23 06:00 02/08/23 05:34 Insulin Glargine 100 Units/1 Ml SUBCUT 36 unit QAM SAHARA Administration Insulin Human Lispro 0 unit 02/05/23 18:00 02/08/23 12:56 Insulin Lispro 100 Unit/1 Ml SUBCUT Not Given WM&BEDTIME SAHARA Protocol Magnesium Oxide 400 mg 02/05/23 18:00 02/07/23 17:42 Magnesium Oxide 400 Mg Tablet PO 400 mg QPM SAHARA Administration Metoprolol Tartrate 25 mg 02/08/23 09:00 02/08/23 09:02 Metoprolol Tartrate 25 Mg Tablet PO 25 mg BID SAHARA Administration Non-Formulary Medication 600 mg 02/06/23 09:00 02/08/23 09:04 Acetylcysteine [Nac] PO Not Given DAILY SAHARA Non-Formulary Medication 10 drop 02/05/23 18:00 02/08/23 09:04 Dna Insulin Drops BUCCAL Not Given BID SAHARA Ondansetron HCl 4 mg 02/05/23 15:48 02/08/23 09:21 Ondansetron 2 Mg/Ml Sdv 2 Ml IVP 4 mg Q8H PRN Administration vomiting, or N/V if npo Pantoprazole Sodium 40 mg 02/08/23 11:00 02/08/23 13:32 Pantoprazole 40 Mg Sdv IVP 40 mg DAILY SAHARA Administration Thyroid 60 mg 02/06/23 06:00 02/08/23 05:33 Thyroid 60 Mg Tablet PO 60 mg QAM SAHARA Administration Tramadol HCl 50 mg 02/05/23 21:00 02/07/23 21:19 Tramadol 50 Mg Tablet PO 50 mg BEDTIME SAHARA Administration PFSH Acute PFSH: Medical History (Updated 02/08/23 @ 08:26 by Domenico Munguia MD) Amputation toe Atherosclerosis of coronary artery CKD (chronic kidney disease) Diabetes Diabetes mellitus with peripheral vascular disease Diabetic neuropathy Diabetic ulcer of right foot HTN (hypertension) Ischemic cardiomyopathy Kidney stone Non-healing ulcer Pleural effusion, left SVT (supraventricular tachycardia) Systolic heart failure Surgical History H/O chest tube placement S/P cataract extraction S/P cholecystectomy S/P tonsillectomy Family History Father Cancer LUNG Mother CAD (coronary artery disease) Diabetes CHF (congestive heart failure) Myocardial infarction Social History Smoking and tobacco status: never smoked Alcohol intake: never Substance/Drug Use: never Household members: spouse Marital status: Current occupational status: retired Vitals/I&O/Wt Last Vital Signs Temp 97.4 F L 02/08/23 15:19 Pulse 89 02/08/23 15:19 Resp 20 H 02/08/23 15:19 BP 152/79 02/08/23 15:19 Pulse Ox 98 02/08/23 15:19 O2 Del Method Room Air 02/08/23 15:19 O2 Flow Rate 3 02/06/23 08:00 02/08/23 02/08/23 02/08/23 06:59 14:59 22:59 Intake Total 250 / 250 Balance 250 / 250 Weight last 48 hrs Weight 8 lb Physical Exam Narrative: Patient is a well developed well nourished and in NAD and is afebrile with vitals stable and is answering questions appropriately with a normal affect and is alert and oriented x3 HEENT: normocephalic with normal external ears and nonicteric, oral mucosa moist and dentition normal for age, trachea midline with no large masses visualized Heart: RRR, no gallops murmurs or rubs, normal PMI with no thrills Lungs: normal excursions, no loud audible wheezing, no subcutaneous emphysema Abdomen: nondistended, no gross hepatosplenomegaly, no masses, no rigidity or rebound, no loud borborygmi Neuro: nonfocal, RAUSCH, grossly normal sensation Musculoskeletal: good muscle tone, no fasciculations, normal gait Skin: pink warm and dry with no rashes or ecchymosis Vascular: good radial pulses, no ulceration, less than 2 second capillary refill in hand : deferred Data 02/08/23 00:08 02/08/23 00:08 Micro: Microbiology 02/06/23 07:20 Gram Stain - Final Foot - Right Tissue Culture - Preliminary A&P Assessment and plan (1) Acute kidney injury superimposed on CKD: Patient requires temporary dialysis. He has never had this before. He understands risks benefits and alternatives to procedure. Risks include bleeding, infection, cardiopulmonary problems, mechanical problems, VTE, aspiration, more surgery, PTX, injury to neck/chest/leg structures. Coding Level of Care Code 20343 Diagnoses Acute kidney injury superimposed on CKD N17.9; N18.9
--- NOTE | 2023-02-08 15:49 | P.ANESUD_ITS ---
Pre-Anesthetic Update Pre-Anesthetic Assessment: Date of Surgery/Procedure: 02/08/23 Preop Jeannine gnosis: renal failure Proposed Procedure: Operation Date: 02/06/23 07:00 Proposed Procedures p Right third toe amputation(Right) - Walter Baird DPM Operation Date: 02/06/23 08:30 Proposed Procedures p Peripheral Diagnostic(Right) - Domenico Munguia MD Operation Date: 02/08/23 14:50 Proposed Procedures p Dialysis Catheter Insertion(Not Applicable) - Bennie Shafer MD Any changes to Pre-Anesthetic Assessment?: Yes Changes from Pre-Anesthetic Assessment: Acute on chronic renal failure, N/V, EF 30-35% Last Intake: Intake Last Liquid Date 02/05/23 Last Liquid Time 22:00 Last Solid Date 02/05/23 Last Solid Time 18:00 Labs Last 48hrs: Short CBC 02/07/23 02/08/23 Range/Units 03:27 00:08 WBC 18.6 H 18.7 H (4.0-10.0) 10^3/ uL Hgb 11.2 L 11.2 L (11.7-16.6) g/dL Hct 36.8 L 36.4 L (42.0-52.0) % MCV 91.5 91.0 (80-94) fl Plt Count 301 289 (130-400) 10^3/c mm Neut % (Auto) 80.0 81.5 % Neut # (Auto) 14.93 H 15.23 H (1.8-7.7) 10^3/u L BMP 02/07/23 02/07/23 02/08/23 03:27 20:00 00:08 Sodium 138 134 L 135 L Potassium 4.9 5.6 H 5.3 H Chloride 100 98 99 Carbon Dioxide 25 25 22 BUN 46 H 51 H 54 H Creatinine 3.6 H 4.7 H 5.1 H Glucose 132 H 192 H 148 H Calcium 7.7 L 7.6 L 7.7 L Vitals: Temperature 97.4 F L 02/08/23 15:19 Temperature Source Temporal Artery S can 02/08/23 15:19 Pulse Rate 89 02/08/23 15:19 Pulse Rhythm Regular 02/06/23 06:35 Pulse Strength 3+ Normal 02/08/23 10:00 Respiratory Rate 20 H 02/08/23 15:19 Respiratory Effort Spontaneous, Non- Labored 02/05/23 21:11 Respiratory Depth Normal 02/05/23 21:11 Respiratory Patter n Normal 02/05/23 21:11 Blood Pressure 152/79 02/08/23 15:19 Blood Pressure Amanda n 103 02/08/23 15:19 Blood Pressure Pos ition Semi Fowlers 02/08/23 11:33 Pulse Oximetry 98 02/08/23 15:19 Oxygen Delivery Me thod Room Air 02/08/23 15:19 Oxygen Flow Rate 3 02/06/23 08:00 Exam: Pre-Anes Outpt Exam: alert, oriented x 3, clear to auscultation bilaterally and regular rate & rhythm Additional Exam Findings (including area of procedure): ASA 3E Cardiac Studies: Echocardiogram 02/05/23 Echocardiogram Ultrasound 12/20/20 Sestamibi Stress Test (Cardiology) 07/06
--- NOTE | 2023-02-08 15:51 | PC.NURSE ---
in the surgery for HD insertion- temporary HD port.
[2023-02-08] MEDS: lidocaine-epi 1% 20 mL INJ 10 ML INJECTION (15:55)
[2023-02-08] MEDS: heparin, porcine 1,000 unit/mL INJ 10 mL 10000 UNIT INJECTION (16:01)
--- NOTE | 2023-02-08 16:09 | XRR_ITS ---
PROCEDURE INFORMATION: Exam: XR Chest Exam date and time: 02/08/2023 4:31 PM Age: 72 years old Clinical indication: Device placement; Other: Dialysis cath placement; Additional info: Upright for line placement TECHNIQUE: Imaging protocol: Radiologic exam of the chest. Views: 1 view. COMPARISON: CR (CHEST, ) 02/08/2023 11:04 AM FINDINGS: Tubes, catheters and devices: There is a right subclavian dialysis catheter with tip in the superior vena cava. Lungs: There is mild improvement in left basilar opacity compatible with atelectasis versus pneumonitis. There is new linear atelectasis mid right lung. Pleural spaces: Unchanged small left pleural effusion. There is no evidence of pneumothorax. Heart/Mediastinum: The heart is enlarged. Bones/joints: No acute abnormality. XR/XR chest 1V portable [id number] IMPRESSION: 1. There is a right subclavian dialysis catheter with tip in the superior vena cava. 2. There is mild improvement in left basilar opacity compatible with atelectasis versus pneumonitis.
--- NOTE | 2023-02-08 16:19 | PM.OP ---
Operative Report Date of procedure: February 08, 2023 Pre-op diagnosis: Preop Diagnosis renal failure Post-op diagnosis: same Procedure done: right subclavian temporary dialysis catheter placement Implants: temporary dual lumen dialysis catheter Surgeon: Jagdeep gibson MD general surgeon Estimated blood loss: minimal Complications: none Brief History: Patient in for toe amputation. He developed ATN on chronic renal failure. He needs dialysis temporarily. He understands risks, benefits and alternatives to surgery. Risks include bleeding, infection, cardiopulmonary problems, mechanical issues, VTE, PTX, more procedures, aspiration Procedure: After prepping and draping patient in supine position, patient placed in trendelenberg position. 1% lidocaine with epinephrine was infused over the vein and was cannulated with large bore needle. A guide wire was inserted with use of fluoro toward heart. BY seldinger technique a large bore two lumen arrow temporary dialysis catheter with no cuff was inserted with use of fluoro with tip at junction of SVC and right atrium. Good blood flow was noted from both ports and were hepflushed after removal of guide wire. Catheter was sutured to skin with 3-0 nylon and aseptically dressed the catheter was inserted its entire length at 16 cm at skin. CXR in recovery room is pending.
--- NOTE | 2023-02-08 16:23 | ANE.PACU2 ---
Inpatient post-anesthesia follow up: Airway intact: Yes Vital signs: Temperature 97.4 F Pulse Rate 80 Respiratory Rate 17 Blood Pressure [Le ft Arm] 150/80 Blood Pressure 141/74 Pulse Oximetry 94 Oxygen Delivery Me thod [ Room Air Current Rate & Del hilda] Oxygen Delivery Me thod Room Air Oxygen Flow Rate 3 Fraction of Inspir ed Oxygen Hydration adequate: Yes Nausea and vomiting: No Pain level: 1 Mental status: Baseline
--- NOTE | 2023-02-08 17:19 | PC.NURSE ---
in dialysis right now.
--- NOTE | 2023-02-08 17:30 | PC.HD ---
Upon treatment initiation, this RN was unable to draw from arterial port at all. Treatment was set up wtih lines reversed. Arterial pressures elevated, but within acceptable range at this time. Sink Cutter notified.
[2023-02-08] MEDS: aspirin 81 mg EC Tablet PO (21:00)
[2023-02-08] MEDS: TRAMadol 50 mg Tablet PO (21:00)
[2023-02-08] MEDS: magnesium oxide 400 mg tablet PO (21:00)
[2023-02-08 21:35] LABS: Glucose Point of Care 45 mg/dL (70-110)
[2023-02-08 22:04] LABS: Hepatitis B Surface AB 6.6 (11.5-1000); Hepatitis B Surface Antigen Non-Reactive (Nonreactive)
[2023-02-08 22:09] LABS: Glucose Point of Care 74 mg/dL (70-110)
[2023-02-08] MEDS: acetaminophen 325 mg Tablet 650 MG PO (23:24)
[2023-02-09] VITALS (16 sets, daily range): BP systolic 112–142; BP diastolic 60–78; PULSE 77–88; RESP 16–24; TEMP 36.1–37.3; O2SAT 89–98
[2023-02-09] MEDS: metroNIDAZOLE IV 500 MG/100 ML PREMIX 100 MG IV ×2 (00:23→16:25)
[2023-02-09 03:16] LABS: Basophils # 0.1 10^3/uL (0.0-0.1); Basophils % 0.4 %; Eosinophils # 0.2 10^3/uL (0.0-0.8); Eosinophils % 1.4 %; Hematocrit 34.3 % (42.0-52.0); Hemoglobin 10.5 g/dL (11.7-16.6); Lymphocytes # 3.3 10^3/uL (0.8-4.8); Lymphocytes % 20.4 %; Mean Corpuscular HGB Conc 30.6 g/dL (30.0-36.0); Mean Corpuscular Volume 91.5 fl (80-94); Mean Platelet Volume 8.9 fL (7.4-10.4); Monocytes # 0.9 10^3/uL (0.2-0.9); Monocytes % 5.7 %; Neutrophils # 11.67 10^3/uL (1.8-7.7); Neutrophils % 71.4 %; Nucleated Red Blood Cells % 0 %; Platelet Count 240 10^3/cmm (130-400); Red Blood Count 3.75 10^6/uL (4.1-5.3); White Blood Count 16.4 10^3/uL (4.0-10.0)
[2023-02-09 03:30] LABS: Anion Gap 12.7 (5-19); Blood Urea Nitrogen 34 mg/dL (8-23); Calcium 7.8 mg/dL (8.5-10.5); Carbon Dioxide 27 mmol/L (22-29); Chloride 99 mmol/L (98-107); Glomerular Filtration Rate 14.1 mL/min (90-130); Glucose 83 mg/dL (65-115); Osmolality Calculated 285 mOsm/kg (285-295); Potassium 4.7 mmol/L (3.5-5.1); Sodium 134 mmol/L (136-145)
[2023-02-09 03:31] LABS: Vancomycin Random 23.3 ug/mL (20.0-40.0)
[2023-02-09] MEDS: heparin 5,000 unit/mL INJ 1 mL 5000 UNIT SUBCUT ×2 (05:25→17:35)
[2023-02-09] MEDS: aztreonam 1,000 MG in sodium chloride 0.9% (plus) 50 ML 100 MG IV ×2 (05:26→17:34)
[2023-02-09 06:21] LABS: Glucose Point of Care 68 mg/dL (70-110)
[2023-02-09] MEDS: dextrose 5 % 500 ML 50 ML IV (06:24)
--- NOTE | 2023-02-09 07:33 | P.PN_ITS ---
Subjective Subjective: Usman had the temporary dialysis catheter placed yesterday and underwent dialysis yesterday. Currently he is in the operating room for further treatment of the toe amputation area. No changes otherwise. 2 L were removed yesterday. Creatinine down to 4.2 today with a BUN of 34. Vitals/I&O/Wt Last Vital Signs Temp 97 F L 02/09/23 07:33 Pulse 87 02/09/23 07:33 Resp 18 02/09/23 07:33 BP 117/60 02/09/23 07:33 Pulse Ox 97 02/09/23 07:33 O2 Del Method Room Air 02/09/23 07:33 O2 Flow Rate 3 02/06/23 08:00 02/08/23 02/09/23 02/09/23 22:59 06:59 14:59 Intake Total 400 / 650 1515 / 2165 Output Total 2300 / 2300 0 / 2300 Balance -1900 / -1650 1515 / -135 Weight last 48 hrs Weight 215 lb 3.2 oz Weight 212 lb 8.41 oz Weight 8 lb Physical Exam Narrative: GENERAL: Generally looks and feels comfortable today HEENT: Exam within normal limits. NECK: Supple without jugular vein distention. The carotid upstroke is normal without bruits. BACK: Exam normal. LUNGS: Clear. HEART: Regular rate and rhythm. ABDOMEN: Benign without organomegaly or tenderness. EXTREMITIES: No edema. NEUROLOGIC: Exam normal. SKIN: Unremarkable. Data 02/09/23 03:02 02/09/23 03:02 Micro: Microbiology 02/06/23 07:20 Gram Stain - Final Foot - Right Tissue Culture - Preliminary Gram Negative Rods Coag positive Staphylococcus A&P Assessment and plan (1) SVT (supraventricular tachycardia): (2) Acute kidney injury superimposed on CKD: (3) Contrast-induced nephropathy: (4) Pulmonary infiltrate present on computed tomography: (5) Non-pressure chronic ulcer of other part of right foot with necrosis of b one: (6) Diabetes mellitus with peripheral vascular disease: (7) Pleural effusion, left: (8) Systolic heart failure: (9) Atrial flutter: Qualifiers: Atrial flutter type: typical Qualified Code(s): I48.3 - Typical atrial flutter (10) Diabetes mellitus with chronic kidney disease: (11) Peripheral arterial disease: Plan Continue present management. Attestations Medical Necessity Statement*: Can continued hospitalization required for management of multiple medical problems mentioned above. and Moderate Time for a total of 30 minutes, includes reviewing past or interval history, examining/interviewing patient, counseling patient/family/other support, updating patient/family/other support, documenting encounter and coordinating care Diagnoses SVT (supraventricular tachycardia) I47.1 Acute kidney injury superimposed on CKD N17.9; N18.9 Contrast-induced nephropathy N14.11; T50.8X5A Pulmonary infiltrate present on computed tomography R91.8 Non-pressure chronic ulcer of other part of right foot with necrosis of bone L97.514 Diabetes mellitus with peripheral vascular disease E11.51 Pleural effusion, left J90 Systolic heart failure I50.20 Atrial flutter I48.3 Atrial flutter type: typical Diabetes mellitus with chronic kidney disease E11.22 Peripheral arterial disease I73.9
--- NOTE | 2023-02-09 07:58 | W.PM.OPSUD ---
Surgery/Procedure H&P Update DATE OF PROCEDURE: February 09, 2023 DATE H&P PERFORMED: 02/05/23 CHANGES TO PREVIOUS DOCUMENTATION: none PREOP DIAGNOSIS: renal failure PLANNED PROCEDURE: Operation Date: 02/06/23 07:00 Proposed Procedures p Right third toe amputation(Right) - Walter Baird DPM Operation Date: 02/06/23 08:30 Proposed Procedures p Peripheral Diagnostic(Right) - Domenico Munguia MD Operation Date: 02/08/23 14:50 Proposed Procedures p Dialysis Catheter Insertion(Not Applicable) - Bennie Shafer MD Operation Date: 02/09/23 08:10 Proposed Procedures p Delayed Wound Closure RIGHT FOOT(Right) - Walter Baird DPM
--- NOTE | 2023-02-09 08:11 | PC.NURSE ---
pt ushered to the surgery
--- NOTE | 2023-02-09 08:13 | ANES.PAUD2 ---
Documented by User: Domenico Marrero, DIANE 02/09/23 08:14 Pre-Anesthetic Update Pre-Anesthetic Assessment: Date of Surgery/Procedure: 02/09/23 Preop Diagnosis: renal failure Proposed Procedure: Operation Date: 02/06/23 07:00 Proposed Procedures p Right third toe amputation(Right) - Walter Baird DPM Operation Date: 02/06/23 08:30 Proposed Procedures p Peripheral Diagnostic(Right) - Domenico Munguia MD Operation Date: 02/08/23 14:50 Proposed Procedures p Dialysis Catheter Insertion(Not Applicable) - Bennie Shafer MD Operation Date: 02/09/23 08:10 Proposed Procedures p Delayed Wound Closure RIGHT FOOT(Right) - Walter Baird DPM Any changes to Pre-Anesthetic Assessment?: No Last Intake: Intake Last Liquid Date 02/05/23 Last Liquid Time 22:00 Last Solid Date 02/05/23 Last Solid Time 18:00 Labs Last 48hrs: Short CBC 02/08/23 02/09/23 Range/Units 00:08 03:02 WBC 18.7 H 16.4 H (4.0-10.0) 10^3/ uL Hgb 11.2 L 10.5 L (11.7-16.6) g/dL Hct 36.4 L 34.3 L (42.0-52.0) % MCV 91.0 91.5 (80-94) fl Plt Count 289 240 (130-400) 10^3/c mm Neut % (Auto) 81.5 71.4 % Neut # (Auto) 15.23 H 11.67 H (1.8-7.7) 10^3/u L BMP 02/07/23 02/08/23 02/09/23 20:00 00:08 03:02 Sodium 134 L 135 L 134 L Potassium 5.6 H 5.3 H 4.7 Chloride 98 99 99 Carbon Dioxide 25 22 27 BUN 51 H 54 H 34 H Creatinine 4.7 H 5.1 H 4.2 H Glucose 192 H 148 H 83 Calcium 7.6 L 7.7 L 7.8 L Vitals: Temperature 97 F L 02/09/23 07:33 Temperature Source Oral 02/09/23 04:00 Pulse Rate 87 02/09/23 07:33 Pulse Rhythm Regular 02/08/23 08:00 Pulse Strength 3+ Normal 02/08/23 20:00 Respiratory Rate 18 02/09/23 07:33 Respiratory Effort Spontaneous, Non- Labored 02/08/23 20:00 Respiratory Depth Normal 02/08/23 20:00 Respiratory Patter n Normal 02/05/23 21:11 Blood Pressure 117/60 02/09/23 07:33 Blood Pressure Amanda n 79 02/09/23 07:33 Blood Pressure Pos ition Semi Fowlers 02/08/23 11:33 Pulse Oximetry 97 02/09/23 07:33 Oxygen Delivery Me thod Room Air 02/09/23 07:33 Oxygen Flow Rate 3 02/06/23 08:00 Exam: Pre-Anes Outpt Exam: alert, oriented x 3, clear to auscultation bilaterally and regular rate & rhythm Cardiac Studies: Echocardiogram 02/05/23 Echocardiogram Ultrasound 12/20/20 Sestamibi Stress Test (Cardiology) 07/06/20 Documented by User: Rufus Rene 02/09/23 09:15 Pre-Anesthetic Update Pre-Anesthetic Assessment: Date of Surgery/Procedure: 02/09/23 Cardiac Studies: Echocardiogram 02/05/23 Echocardiogram Ultrasound 12/20/20 Sestamibi Stress Test (Cardiology) 07/06/20
--- NOTE | 2023-02-09 08:32 | PM.OP ---
Operative Report Date of procedure: February 09, 2023 Pre-op diagnosis: Gangrene right third toe status post right third toe amputation. Post-op diagnosis: Gangrene right third toe Post-op findings: Diminished skin bleeding and diminished pedal pulses. Procedure done: Primary delayed closure right foot. CPT code 41241 Implants: 4-0 Monocryl. 3-0 Prolene Specimens removed/disposition: None Pathology: None Surgeon: Walter Baird D.P.M. Licensed Nurse Practitioner: [place] Estimated blood loss: 1 No tourniquet IV fluids: 0 Urine output: None Complications: None Findings: Diminished pedal pulses and diminished skin bleeding at amputation site. Brief History: Mr. Alvarez is a pleasant 72-year-old male with diabetes type 2, insulin-dependent, history of significant peripheral arterial disease with multiple revascularizations within the last 5 years. He has had a progression of PAD. Patient admitted to the hospital service for gangrene to the right third toe. Is status post right third toe amputation which was performed 02/06/2023. Over the course of his hospitalization following the amputation while on empiric IV antibiotics his soft tissue continue to improve. Will require further debridement and delayed closure. Procedure: Under mild sedation the patient was brought to the operating room and remained on the hospital bed in supine position. A timeout was performed. Anesthesia was then administered by the anesthesia service. The right lower extremity was scrubbed, prepped and draped utilizing normal aseptic technique. No tourniquet was utilized during this procedure. Attention was directed to the right forefoot at the right third toe amputation site where sharp debridement was performed excisionally with pickups and a #15 blade through subcutaneous tissue, myofascial layer and tendon. The incision was debrided of all devitalized tissue sharply and irrigated with copious amounts of Staticin solution. The incision wound was then closed in a layered fashion. Myofascial layer and subcutaneous tissue layer were closed with 4-0 Monocryl. Skin was closed with 3-0 Prolene. The incision was dressed with Adaptic, sterile 4 x 4's, Kerlix and Domniik wrap without compression with Dominik wrap as to not hinder underlying perfusion. The patient tolerated the procedure well and was transferred to the PACU with vital signs stable and vascular status intact. I am guarded as the patient's ability to heal with underlying peripheral arterial disease. Discussed frankly the risk factor of delayed healing and nonhealing, surgical site dehiscence, infection and ultimately need for higher level of amputation. Patient is agreeable. May heel touch for transfers. We will continue antibiotics at this time. Third toe amputation performed 02/06/2023 significant for gram-negative rods and coag positive staph. Will collaborate with hospitalist and infectious disease if available regarding antibiotic regimen at discharge.
--- NOTE | 2023-02-09 08:33 | USR_ITS ---
PROCEDURE INFORMATION: Exam: US Retroperitoneal; Complete; Kidneys and Bladder Exam date and time: 02/09/2023 11:22 AM Age: 72 years old Clinical indication: Abnormal findings; Abnormal lab test; Abnormal kidney function lab tests; Additional info: Gregorio, leukocytosis TECHNIQUE: Imaging protocol: Real-time ultrasound of the retroperitoneum with image documentation. Complete exam focused on the kidneys and bladder. COMPARISON: US renal BI* [id number] 11/21/2022 10:07 AM FINDINGS: Right kidney: Normal. No stones. No hydronephrosis. Left kidney: Normal. No stones. No hydronephrosis. Urinary bladder: Unremarkable. US/US renal BI with PV bladder IMPRESSION: Unremarkable kidneys and bladder.
--- NOTE | 2023-02-09 09:16 | ANE.PACU2 ---
Inpatient post-anesthesia follow up: Airway intact: Yes Vital signs: Temperature 97 F Pulse Rate 80 Respiratory Rate 16 Blood Pressure [Le ft Arm] 150/80 Blood Pressure 116/66 Pulse Oximetry 95 Oxygen Delivery Me thod [ Room Air Current Rate & Del hilda] Oxygen Delivery Me thod Room Air Oxygen Flow Rate 3 Fraction of Inspir ed Oxygen Hydration adequate: Yes Nausea and vomiting: No Pain level: 1 Mental status: Baseline
[2023-02-09] MEDS: metoprolol tartrate 25 mg Tablet PO ×2 (09:21→17:34)
[2023-02-09] MEDS: pantoprazole 40 mg SDV IVP (09:22)
[2023-02-09] MEDS: ondansetron 2 mg/ML SDV 2 mL 4 MG IVP (09:27)
--- NOTE | 2023-02-09 11:36 | PM.PN ---
Subjective Subjective: s/p OR today Medications: Reviewed: Yes Vitals/I&O/Wt Last Vital Signs Temp 99.2 F 02/09/23 11:18 Pulse 83 02/09/23 11:18 Resp 24 H 02/09/23 11:18 BP 122/74 02/09/23 11:18 Pulse Ox 91 02/09/23 11:18 O2 Del Method Room Air 02/09/23 11:18 O2 Flow Rate 3 02/06/23 08:00 02/08/23 02/09/23 02/09/23 22:59 06:59 14:59 Intake Total 400 / 650 1515 / 2165 0 / 0 Output Total 2300 / 2300 0 / 2300 1 / 1 Balance -1900 / -1650 1515 / -135 -1 / -1 Weight last 48 hrs Weight 97.613 kg Weight 96.4 kg Weight 3.629 kg Physical Exam Narrative: Patient is awake alert with no acute distress, on room air HEENT S1-S2 regular rate and rhythm per report Clear to auscultation per report Right foot dressed, has pedal edema Data 02/09/23 03:02 02/09/23 03:02 Micro: Microbiology 02/06/23 07:20 Gram Stain - Final Foot - Right Tissue Culture - Preliminary Gram Negative Rods Coag positive Staphylococcus A&P Assessment and plan (1) Acute kidney injury superimposed on CKD: 1. Acute on chronic kidney disease stage III: Baseline creatinine is in the 1.7-2 range. Patient now has SALLY's-multifactorial secondary to ATN from acute infection, contrast nephropathy -Creatinine getting worse along with hyperkalemia and metabolic acidosis -Requested temporary HD catheter placement and initiate HD. Discussed with patient and patient's at bedside, who agreed for temporary dialysis. - s/p HD yesterday 2. Hyperkalemia: Placed on low potassium diet, check BMP this afternoon, will give a dose of Lasix, and amp of bicarbonate 3. History of hypertension: Blood pressure controlled 4. Metabolic acidosis: Secondary to lactic acidosis, 5 severe peripheral vascular disease: Status post right toe amputation, s/p OR today again 6. History of coronary artery disease and prior stents Patient evaluated using audiovisual cart. Time spent 40 minutes. - Attestations Medical Necessity Statement*: per medicine Coding Level of Care Code Acute Code for [facility] Fwd Diagnoses Acute kidney injury superimposed on CKD N17.9; N18.9
[2023-02-09 11:52] LABS: Glucose Point of Care 155 mg/dL (70-110)
[2023-02-09] MEDS: insulin lispro 100 unit/1 mL SUBCUT ×2 (12:55→21:36)
--- NOTE | 2023-02-09 13:56 | P.PN_ITS ---
Subjective Subjective: no complaints Vitals/I&O/Wt Last Vital Signs Temp 99.2 F 02/09/23 11:18 Pulse 83 02/09/23 11:18 Resp 24 H 02/09/23 11:18 BP 122/74 02/09/23 11:18 Pulse Ox 91 02/09/23 11:18 O2 Del Method Room Air 02/09/23 11:18 O2 Flow Rate 3 02/06/23 08:00 02/08/23 02/09/23 02/09/23 22:59 06:59 14:59 Intake Total 400 / 650 1515 / 2165 180 / 180 Output Total 2300 / 2300 0 / 2300 Balance -1900 / -1650 1515 / -135 179 / 179 Weight last 48 hrs Weight 215 lb 3.2 oz Weight 212 lb 8.41 oz Weight 8 lb Physical Exam Narrative: Patient is a well developed well nourished and in NAD and is afebrile with vitals stable and is answering questions appropriately with a normal affect and is alert and oriented x3 HEENT: normocephalic with normal external ears and nonicteric, oral mucosa moist and dentition normal for age, trachea midline with no large masses visualized Heart: RRR, no gallops murmurs or rubs, normal PMI with no thrills Lungs: normal excursions, no loud audible wheezing, no subcutaneous emphysema Abdomen: nondistended, no gross hepatosplenomegaly, no masses, no rigidity or rebound, no loud borborygmi Neuro: nonfocal, RAUSCH, grossly normal sensation Musculoskeletal: good muscle tone, no fasciculations, normal gait Skin: pink warm and dry with no rashes or ecchymosis Vascular: good radial pulses, less than 2 second capillary refill in hand : deferred Data 02/09/23 03:02 02/09/23 03:02 Micro: Microbiology 02/06/23 07:20 Gram Stain - Final Foot - Right Tissue Culture - Preliminary Gram Negative Rods Coag positive Staphylococcus A&P Assessment and plan (1) Acute kidney injury superimposed on CKD: Temporary dialysis catheter is functioning. He has not been dialyzed today so far. Attestations Medical Necessity Statement*: see hospitalist note Coding Level of Care Code Acute Code for [facility] Fwd Diagnoses Acute kidney injury superimposed on CKD N17.9; N18.9
[2023-02-09 16:32] LABS: Glucose Point of Care 131 mg/dL (70-110)
[2023-02-09] MEDS: magnesium oxide 400 mg tablet PO (17:34)
[2023-02-09] MEDS: acetaminophen 325 mg Tablet 650 MG PO (20:05)
[2023-02-09] MEDS: aspirin 81 mg EC Tablet PO (20:05)
[2023-02-09] MEDS: TRAMadol 50 mg Tablet PO (20:06)
--- NOTE | 2023-02-09 21:09 | PM.PN ---
Subjective Subjective: He is feeling much better after dialysis, but still having nausea this morning. Received some nausea medicine. Could not tolerate breakfast. Has not made any urine. No chest pain or pressure. No pain in his right foot. Status post wound closure this morning. Vitals/I&O/Wt Last Vital Signs Temp 98.4 F 02/09/23 19:17 Pulse 88 02/09/23 19:17 Resp 22 H 02/09/23 19:17 BP 142/75 02/09/23 19:17 Pulse Ox 89 L 02/09/23 19:17 O2 Del Method Room Air 02/09/23 19:17 O2 Flow Rate 3 02/06/23 08:00 02/09/23 02/09/23 02/09/23 06:59 14:59 22:59 Intake Total 1515 / 2165 180 / 180 150 / 330 Output Total 0 / 2300 Balance 1515 / -135 179 / 179 150 / 329 Weight last 48 hrs Weight 97.613 kg Weight 96.4 kg Weight 3.629 kg Physical Exam Narrative: Accompanied by his Holding a basin. Const: COMMON NORMALS: patient oriented x3 and alert GENERAL APPEARANCE: cooperative ORIENTATION/CONSCIOUSNESS: Yes awake OTHER: Somnolent, wakes up to voice. HENMT: COMMON NORMALS: oropharynx normal Neck/C-Spine: COMMON NORMALS: no JVD Resp: COMMON NORMALS: normal respiratory effort and clear to auscultation bilaterally AUSCULTATION: clear to auscultation bilaterally Cardio: COMMON NORMALS: no JVD, regular rhythm, S1 normal heart sound present, S2 normal heart sound present and No murmurs present (Cardio) RHYTHM: regular rhythm HEART SOUNDS: S1 normal heart sound present and S2 normal heart sound present GI: COMMON NORMALS: Normal to inspection, nondistended, normoactive bowel sounds present, Soft to palpation and non-tender PALPATION: Yes Soft to palpation Extremity: COMMON NORMALS: no joint enlargement and no pedal edema NARRATIVE EXTREMITY EXAM: Right foot in post-op dressing after wound closure. No proximal erythema or swelling at the ankle. Neuro: COMMON NORMALS: patient oriented x3 and moves all extremities SENSORIUM/ORIENTATION: Yes alert Skin: GENERAL SKIN EXAM: no erythema OTHER: Some scarring from prior wounds dorsal medial right foot, ankle. Data 02/09/23 03:02 02/09/23 03:02 Micro: Microbiology 02/06/23 07:20 Gram Stain - Final Foot - Right Tissue Culture - Final Citrobacter Freundii Complex Staphylococcus aureus A&P Assessment and plan (1) Acute kidney injury superimposed on CKD: Feeling better after dialysis. Noted 2300 mL removed yesterday. Still nauseated this morning. Has not made urine. Continue renal replacement therapy at this time as per nephrology. Documentation appreciated. Reassess renal function, monitor urine output. Discussed with RN. Further consideration of duration of dialysis depending on condition. Surgery note reviewed, dialysis catheter is functioning. Acute renal failure, anuria. No uremia in setting of cardiomyopathy, high risk of CHF decompensation, electro abnormality with hyperkalemia, potassium 5.3, metabolic acidosis, and gap of 19.3, bicarb down to 22. Creatinine with rapid rise, currently 5.1. This morning nausea, vomiting. Hyperkalemia resolved, status post dialysis. At risk of further electrolyte abnormalities. Follow-up chemistry. Monitor on telemetry at risk of arrhythmia with underlying cardiac disease including cardiomyopathy. Cardiology note reviewed. Continue present management. (2) Non-pressure chronic ulcer of other part of right foot with necrosis of bone: Underwent wound closure today. Podiatry operative note reviewed. At risk of poor healing, additional infection. At risk of loss of limb. Continued risk of need for additional amputation. May heel touch for transfers. Continue current antibiotics. Considering infectious disease consultation if available this coming week. Noted supratherapeutic with vancomycin with renal failure. At risk of toxicity. Monitor. Tissue culture from 02/06 noted with Citrobacter and MSSA Staph aureus, sensitive to current antibiotics. Blood cultures so far remaining negative. MRI foot obtained, no evidence of OM but noncontrast study. They would not want extended empiric antibiotics for OM. Consideration of shorter course of antibiotic at discharge additionally with coverage for possible pneumonia. Leukocytosis is now noted with improvement down to 16.4. Neutrophilia 11.67. Chest x-ray similar to CT. Kidney ultrasound unremarkable. So far no available urine sample due to anuria. Discussed with case management in rounds. Otherwise no option for vascular intervention. At risk of nonhealing wound, infection, additional more proximal amputation in the future. Status post amputation third digit of the right foot. Peripheral angiogram without possibility of intervention. Guarded healing potential. (3) Diabetes mellitus with peripheral vascular disease: A1c is reasonable at 7.7. Glucose noted 206. But this morning 83. Hold off on increasing long-acting insulin. Continue to monitor Accu-Cheks. Continue Accu-Cheks. Continue Lantus. SSI. Consistent carb diet (4) Pulmonary infiltrate present on computed tomography: Left lower lung small effusion with patchy infiltrate noted. He has not been feeling well over the last several weeks, which is difficult to tell could be secondary to the infection as third right toe, but cannot entirely fluid pneumonia. Currently empiric antibiotic coverage as above. Sputum culture if he is able to provide. Will need follow-up to resolution. (5) Chest tightness: TTE noted ejection fraction down to 30-35% again. Gets occasional episodes of chest tightness. No current symptoms. EKG with nonspecific T wave abnormality. Baseline troponin 120 in setting of CKD. Discussed with him and his this morning at some point would benefit from additional cardiac risk stratification with stress testing after more acute issues are addressed. Intermittent chest tightness, not related to exertion, sometimes possibly related to stress as per his . None currently. Does have a history of coronary disease, stenting. Subsequently with abnormal stress test. History of ischemic cardiomyopathy with decreased EF. Once more pressing issues are addressed, consideration may be given to further cardiac risk stratification. SL NTG as needed. Monitor with telemetry. (6) Exertional dyspnea: Discussed with him and his possible underlying pneumonia with left lower lung patchy infiltrate, additionally possibility of scar tissue plus atelectasis with small effusion, following chest tube and the report talc pleurodesis. Currently empiric IV antibiotics as above. Consideration of additional antibiotic course coverage for pneumonia in case not requiring longer course of antibiotics for lower extremity wound. Additionally noted TTE ejection fraction down to 30-35% again as above. (7) CKD (chronic kidney disease): As above. Plan History of tachycardia during hospitalization: His is not sure what type of tachycardia it was, but states that after evaluation it was determined it was not atrial fibrillation. States that he has done well since then without recurrence. We will check magnesium level. Monitor on telemetry. HTN: Monitor blood pressure. Cardiac diet. Other medical problems noted. Cardiology documentation noted. Attestations Medical Necessity Statement*: Continue admission for assessment management of acute renal failure with SALLY on CKD, HTN, with underlying cardiomyopathy, treatment of complicated wound with peripheral vascular disease status post amputation of gangrenous third right toe with underlying diabetes. Diagnoses Acute kidney injury superimposed on CKD N17.9; N18.9 Non-pressure chronic ulcer of other part of right foot with necrosis of bone L97.514 Diabetes mellitus with peripheral vascular disease E11.51 Pulmonary infiltrate present on computed tomography R91.8 Chest tightness R07.89 Exertional dyspnea R06.09 CKD (chronic kidney disease) N18.9
[2023-02-09 21:18] LABS: Glucose Point of Care 206 mg/dL (70-110)
[2023-02-10] VITALS (58 sets, daily range): BP systolic 101–144; BP diastolic 66–78; PULSE 77–86; RESP 0–26; TEMP 36.8–37.4; O2SAT 77–99; BMI 30.3
[2023-02-10 00:12] LABS: Glucose Point of Care 185 mg/dL (70-110)
[2023-02-10] MEDS: metroNIDAZOLE IV 500 MG/100 ML PREMIX 100 MG IV ×2 (01:43→10:01)
[2023-02-10] MEDS: ondansetron 2 mg/ML SDV 2 mL 4 MG IVP (01:52)
[2023-02-10 03:25] LABS: Basophils # 0.1 10^3/uL (0.0-0.1); Basophils % 0.6 %; Eosinophils # 0.3 10^3/uL (0.0-0.8); Eosinophils % 1.9 %; Hematocrit 34.1 % (42.0-52.0); Hemoglobin 10.5 g/dL (11.7-16.6); Lymphocytes # 3.3 10^3/uL (0.8-4.8); Mean Corpuscular HGB Conc 30.8 g/dL (30.0-36.0); Mean Corpuscular Hemoglobin 27.9 pg (28.0-34.0); Mean Corpuscular Volume 90.5 fl (80-94); Monocytes # 0.9 10^3/uL (0.2-0.9); Monocytes % 6.1 %; Neutrophils # 9.84 10^3/uL (1.8-7.7); Neutrophils % 67.8 %; Nucleated Red Blood Cells % 0 %; Platelet Count 245 10^3/cmm (130-400); Red Blood Count 3.77 10^6/uL (4.1-5.3); Red Cell Distribution Width 14.1 % (12.1-15.1); White Blood Count 14.5 10^3/uL (4.0-10.0)
[2023-02-10 03:42] LABS: Anion Gap 16.5 (5-19); Blood Urea Nitrogen 41 mg/dL (8-23); Carbon Dioxide 24 mmol/L (22-29); Chloride 99 mmol/L (98-107); Glomerular Filtration Rate 10.8 mL/min (90-130); Glucose 164 mg/dL (65-115); Osmolality Calculated 294 mOsm/kg (285-295); Potassium 4.5 mmol/L (3.5-5.1); Sodium 135 mmol/L (136-145)
[2023-02-10 04:35] LABS: Vancomycin Random 21.3 ug/mL (20.0-40.0)
[2023-02-10] MEDS: aztreonam 1,000 MG in sodium chloride 0.9% (plus) 50 ML 100 MG IV ×2 (04:48→18:24)
[2023-02-10] MEDS: FUROsemide 40 mg Tablet PO (05:54)
[2023-02-10] MEDS: thyroid 60 mg Tablet PO (05:55)
[2023-02-10] MEDS: heparin 5,000 unit/mL INJ 1 mL 5000 UNIT SUBCUT ×2 (05:55→18:24)
[2023-02-10] MEDS: insulin glargine 100 units/1 mL 36 UNIT SUBCUT (05:55)
--- NOTE | 2023-02-10 06:38 | PM.PN ---
Subjective Subjective: Patient seen bedside this AM. Denies any acute events overnight. Status post right third toe amputation secondary to gangrene performed 02/06/2023. He is 1 day status post primary delayed closure performed 02/09/2023. Vitals/I&O/Wt Last Vital Signs Temp 99.3 F 02/10/23 03:48 Pulse 85 02/10/23 06:00 Resp 22 H 02/10/23 03:48 BP 131/76 02/10/23 03:48 Pulse Ox 93 02/10/23 03:48 O2 Del Method Room Air 02/10/23 03:48 O2 Flow Rate 3 02/06/23 08:00 02/09/23 02/09/23 02/10/23 14:59 22:59 06:59 Intake Total 180 / 180 150 / 330 150 / 480 Output Total Balance 179 / 179 150 / 329 150 / 479 Weight last 48 hrs Weight 217 lb 5 oz Weight 215 lb 3.2 oz Weight 212 lb 8.41 oz Physical Exam Narrative: GENERAL: Patient is alert and oriented ?3 and in no acute distress. The following is a focused right lower extremity exam. Accompanied by his . VASCULAR: Dorsalis pedis diminished. Right posterior tibial artery diminished. Delayed capillary refill at right fourth and fifth toes. Rubor to bilateral lower extremity, dependent. NEUROLOGICAL: Protective sensation intact 0/10 sites, tested with [place] [employer] monofilament to bilateral feet. DERMATOLOGICAL: Postoperative dressings left intact, no strikethrough bleeding. No proximal lymphangitic streaking or erythema at the right ankle. MUSCULOSKELETAL: Status post amputation of right great toe and second toe. Status post right third toe amputation. No pain to palpation of right foot secondary to neuropathy. No crepitus with palpation of soft tissue, right foot. Data 02/10/23 03:16 02/10/23 03:16 Micro: Microbiology 02/06/23 07:20 Gram Stain - Final Foot - Right Tissue Culture - Final Citrobacter Freundii Complex Staphylococcus aureus A&P Assessment and plan (1) Diabetes mellitus with peripheral vascular disease: (2) Gangrenous toe: (3) Status post amputation of toe of right foot: (4) Peripheral arterial disease: Plan 72-year-old male with diabetes and peripheral arterial disease presents with gangrenous right third toe. -1 day status post primary delayed closure right foot. -Postoperative dressings to be kept clean and dry. -May heel touch for transfers of the right lower extremity with postop shoe. -We will continue saline wet-to-dry dressing changes 3 times daily and evaluate for clinical improvement of soft tissue envelope, hopeful that delayed closure can be performed in the next 2 to 3 days. -Bone culture right third toe significant for Citrobacter and MRSA. -WBC trending down. Right foot is clinically stable. Underlying concern is adequate perfusion. Patient is aware that he may require higher level of amputation should he fail to heal delayed closure at the right third toe amputation site. -We will collaborate with hospitalist on antibiotic regimen at discharge -From podiatry standpoint patient is okay for discharge. He is to keep his surgical dressing clean, dry and intact until follow-up visit input clinic outpatient 02/14/2023. Dr. Baird D.P.M. cell phone [phone] Attestations Medical Necessity Statement*: Gangrene right foot Coding Level of Care Code Acute Code for [facility] Fwd Diagnoses Diabetes mellitus with peripheral vascular disease E11.51 Gangrenous toe I96 Status post amputation of toe of right foot Z89.421 Peripheral arterial disease I73.9
[2023-02-10 06:46] LABS: Glucose Point of Care 173 mg/dL (70-110)
--- NOTE | 2023-02-10 07:08 | P.PN_ITS ---
Subjective Subjective: Things are largely unchanged. No urine output yesterday. Intake less than 500 mL. Still feels less than good. Slight nausea. Creatinine is up to 5.3 today. His potassium is within normal limits. No further arrhythmias. Vitals/I&O/Wt Last Vital Signs Temp 99.3 F 02/10/23 03:48 Pulse 85 02/10/23 06:00 Resp 22 H 02/10/23 03:48 BP 131/76 02/10/23 03:48 Pulse Ox 93 02/10/23 03:48 O2 Del Method Room Air 02/10/23 03:48 O2 Flow Rate 3 02/06/23 08:00 02/09/23 02/10/23 02/10/23 22:59 06:59 14:59 Intake Total 150 / 330 150 / 480 Balance 150 / 329 150 / 479 Weight last 48 hrs Weight 217 lb 5 oz Weight 215 lb 3.2 oz Weight 212 lb 8.41 oz Physical Exam Narrative: GENERAL: Sleeping this morning otherwise comfortable HEENT: Exam within normal limits. NECK: Supple without jugular vein distention. The carotid upstroke is normal without bruits. BACK: Exam normal. LUNGS: Clear. HEART: Regular rate and rhythm. ABDOMEN: Benign without organomegaly or tenderness. EXTREMITIES: No edema. NEUROLOGIC: Exam normal. SKIN: Unremarkable. Data 02/10/23 03:16 02/10/23 03:16 Micro: Microbiology 02/06/23 07:20 Gram Stain - Final Foot - Right Tissue Culture - Final Citrobacter Freundii Complex Staphylococcus aureus A&P Assessment and plan (1) SVT (supraventricular tachycardia): (2) Acute kidney injury superimposed on CKD: (3) Contrast-induced nephropathy: (4) CKD (chronic kidney disease): (5) Diabetes mellitus with peripheral vascular disease: (6) Ischemic cardiomyopathy: (7) Pleural effusion, left: (8) Systolic heart failure: (9) Gangrenous toe: (10) Status post amputation of toe of right foot: (11) Atherosclerosis of coronary artery: Qualifiers: Coronary Disease-Associated Artery/Lesion type: zuni artery [place] vs. transplanted heart: zuni heart Associated angina: with other forms of angina Qualified Code(s): I25.118 - Atherosclerotic heart disease of zuni coronary artery with other forms of angina pectoris (12) Hyperlipidemia: Qualifiers: Hyperlipidemia type: mixed hyperlipidemia Qualified Code(s): E78.2 - Mixed hyperlipidemia (13) HTN (hypertension): Qualifiers: Hypertension type: essential hypertension Qualified Code(s): I10 - Essential (primary) hypertension (14) Peripheral arterial disease: Plan Hemodialysis as needed. Otherwise continue present plan. Attestations Medical Necessity Statement*: Continued hospitalization for management of multiple medical problems as noted and Moderate Time for a total of 30 minutes, includes reviewing past or interval history, examining/interviewing patient, updating patient/family/other support, communicating with other healthcare providers and documenting encounter Diagnoses SVT (supraventricular tachycardia) I47.1 Acute kidney injury superimposed on CKD N17.9; N18.9 Contrast-induced nephropathy N14.11; T50.8X5A CKD (chronic kidney disease) N18.9 Diabetes mellitus with peripheral vascular disease E11.51 Ischemic cardiomyopathy I25.5 Pleural effusion, left J90 Systolic heart failure I50.20 Gangrenous toe I96 Status post amputation of toe of right foot Z89.421 Atherosclerosis of coronary artery I25.118 Coronary Disease-Associated Artery/Lesion type: zuni artery [place] vs. transplanted heart: zuni heart Associated angina: with other forms of angina Hyperlipidemia E78.2 Hyperlipidemia type: mixed hyperlipidemia HTN (hypertension) I10 Hypertension type: essential hypertension Peripheral arterial disease I73.9
--- NOTE | 2023-02-10 08:50 | PC.HD ---
This RN was unable to draw from arterial port of HD catheter. Lines were set up in reverse configuration. Machine arterial pressures remained very elevated with alarms. Unable to maintain prescribed blood flow rate of 350. Blood flow rate lowered to 250; A/P remain very elevated without alarms.
--- NOTE | 2023-02-10 09:03 | PC.NURSE ---
In the dialysis room
[2023-02-10] MEDS: pantoprazole 40 mg SDV IVP (10:01)
[2023-02-10] MEDS: metoprolol tartrate 25 mg Tablet PO ×2 (10:02→18:23)
--- NOTE | 2023-02-10 10:12 | PC.SOCIAL ---
IMM Update pg 2 of IMM updated and reviewed w/ patient. Copy provided and copy dated, and initialed and placed in chart.
--- NOTE | 2023-02-10 10:20 | PM.PN ---
Subjective Subjective: denies nay complaints Medications: Reviewed: Yes Vitals/I&O/Wt Last Vital Signs Temp 98.4 F 02/10/23 08:49 Pulse 81 02/10/23 08:49 Resp 16 02/10/23 08:49 BP 122/73 02/10/23 08:49 Pulse Ox 97 02/10/23 08:00 O2 Del Method Room Air 02/10/23 08:00 O2 Flow Rate 3 02/06/23 08:00 02/09/23 02/10/23 02/10/23 22:59 06:59 14:59 Intake Total 150 / 330 150 / 480 Balance 150 / 329 150 / 479 Weight last 48 hrs Weight 98.571 kg Weight 97.613 kg Weight 96.4 kg Physical Exam Narrative: Patient is awake alert with no acute distress, on room air HEENT S1-S2 regular rate and rhythm per report Clear to auscultation per report Right foot dressed, has pedal edema Data 02/10/23 03:16 02/10/23 03:16 Micro: Microbiology 02/06/23 07:20 Gram Stain - Final Foot - Right Tissue Culture - Final Citrobacter Freundii Complex Staphylococcus aureus A&P Assessment and plan (1) Acute kidney injury superimposed on CKD: 1. Acute on chronic kidney disease stage III: Baseline creatinine is in the 1.7-2 range. Patient now has SALLY's-multifactorial secondary to ATN from acute infection, contrast nephropathy -Creatinine getting worse along with hyperkalemia and metabolic acidosis -Requested temporary HD catheter placement and initiate HD. Discussed with patient and patient's at bedside, who agreed for temporary dialysis. - HD today , no renal recovery yet 2. Hyperkalemia: Placed on low potassium diet, check BMP this afternoon, will give a dose of Lasix, and amp of bicarbonate 3. History of hypertension: Blood pressure controlled 4. Metabolic acidosis: Secondary to lactic acidosis, 5 severe peripheral vascular disease: Status post right toe amputation, 6. History of coronary artery disease and prior stents Patient evaluated using audiovisual cart. Time spent 40 minutes. Attestations Medical Necessity Statement*: per medicine Coding Level of Care Code Acute Code for Chg Fwd Diagnoses Acute kidney injury superimposed on CKD N17.9; N18.9
--- NOTE | 2023-02-10 12:55 | P.PN_ITS ---
Subjective Subjective: Patient getting dialyzed Hemoglobin stable No overnight events White count trending down Reviewed podiatry recommendations hosp course Very pleasant gentleman, usually accompanied by his , with history of PAD, diabetes, amputations of first and second toes on the right foot, recently pres ented to wound care clinic with gangrene of the third toe, CTA was ordered outpatient, but due to pain came into the ER. CTA done in the ER, noted with occlusion of SFA down to popliteal, with some reconstitution distally, but poor flow, seen by podiatry, cardiology, underwent potation of the toe, empirically treated with aztreonam, vancomycin, Flagyl. Seen by cardiology, underwent angiogram but without possibility of intervention. Seen also by vascular surgery, consideration of femoropopliteal bypass, but thought to be likely to risky/more detrimental than beneficial. No good option for intervention. Continues with antibiotics. Podiatry followed initially concern for one of the area appearing dusky after amputation, but then looked better day yesterday, today underwent delayed closure. Hospitalization complicated by acute renal failure, possibly contrast-induced nephropathy, possibly ATN secondary to infection, possibly also due to some cardiorenal syndrome, although he is maintaining his blood pressures. He does have history of CAD, stent in the past, as well as cardiomyopathy, previously EF 30-35%, after stenting improved up to 40-45%. On presentation stated that he occasionally gets chest pressure episodes, not really related to exertion, but does get dyspnea with exertion. R echeck echocardiogram, EF again down to 30-35%. Will need further work-up for possible progression of CAD, and/or possible additional underlying pulmonary condition after more acute issues are resolved. Renal failure with oliguria, acidosis, hyperkalemia, uremia, nephrology saw him, temporary HD catheter placed, underwent dialysis yesterday, feeling somewhat better. Nephrology following. Additionally has been having some persistent pretty high leukocytosis, even despite amputation, left lower lung appears to have some patchy infiltrates in the night, he previously had a pleural effusion and chest tube back in August earlier this year, subsequently he had pleurodesis. Difficult to say if some of that is due to scarring or actually having some pneumonia again. Does not really have a lot of respiratory symptoms, but has been fatigued in the last several weeks. Covered empirically with antibiotics. Did MRI of his foot, and does not appear to have osteomyelitis, but MRI was done without contrast. Discussed this with them, they are somewhat reluctant to keep on long-term antibiotics empirically for possibility of OM. However, podiatry may wish to continue him on some antibiotics for a while. Today underwent delayed closure of the wound, seems stable would like infectious disease consu ltation if available Vitals/I&O/Wt Last Vital Signs Temp 98.6 F 02/10/23 11:48 Pulse 83 02/10/23 11:48 Resp 16 02/10/23 11:48 BP 128/71 02/10/23 11:48 Pulse Ox 97 02/10/23 08:00 O2 Del Method Room Air 02/10/23 08:00 O2 Flow Rate 3 02/06/23 08:00 02/09/23 02/10/23 02/10/23 22:59 06:59 14:59 Intake Total 150 / 330 150 / 480 400 / 400 Output Total 2300 / 2300 Balance 150 / 329 150 / 479 -1900 / -1900 Weight last 48 hrs Weight 96.3 kg Weight 98.571 kg Weight 97.613 kg Weight 96.4 kg Physical Exam Narrative: Euvolemic Right foot covered in dressing No active drainage No active fever Pleasant cooperative Getting dialyzed GCS 15 Nonfocal neuro exam Currently on room air Data 02/10/23 03:16 02/10/23 03:16 Micro: Microbiology 02/05/23 12:39 Blood Culture - Final Blood NO GROWTH AFTER 5 DAYS 02/05/23 11:38 Blood Culture - Final Blood NO GROWTH AFTER 5 DAYS 02/06/23 07:20 Gram Stain - Final Foot - Right Tissue Culture - Final Citrobacter Freundii Complex Staphylococcus aureus A&P Assessment and plan (1) SVT (supraventricular tachycardia): (2) Acute kidney injury superimposed on CKD: (3) Contrast-induced nephropathy: (4) Pulmonary infiltrate present on computed tomography: (5) Exertional dyspnea: (6) Non-pressure chronic ulcer of other part of right foot with necrosis of bone: (7) Diabetes mellitus with peripheral vascular disease: (8) Diabetic neuropathy: (9) Ischemic cardiomyopathy: (10) Non-healing ulcer: (11) Pleural effusion, left: (12) Gangrenous toe: (13) Elevated hemidiaphragm: (14) Status post amputation of toe of right foot: (15) HTN (hypertension): Qualifiers: Hypertension type: essential hypertension Qualified Code(s): I10 - Essential (primary) hypertension (16) Peripheral arterial disease: Plan Diabetic foot ulcer with gangrene Status post amputation, Dr. Baird operated on him on 02/09 Postop day 1: Delayed primary closure Saline wet-to-dry dressing change 3 times daily Concern for delayed wound healing with underlying peripheral arterial disease Wound culture positive for Citrobacter and Staph aureus tissue culture 02/06, discontinue metronidazole, Staph aureus is sensitive to cephalosporins, but resistant to ampicillin, patient has listed allergy of anaphylaxis with penicillin, I would be reluctant to use cephalosporins Vanco trough level around 21.3, will switch to linezolid, Leukocytosis trending down Afebrile MRI without contrast did not show osteomyelitis Patient at risk of higher level of amputation if he wound fails to heal, cardiology has not recommended vascular intervention at this point Contrast-induced nephropathy Temporary dialysis Monitor urine output No significant renal recovery at this point Monitor closely to see if patient would require tunnel catheter and permanent dialysis Angina: Patient will need coronary angiogram versus stress test once renal function improves, no active chest pain, appreciate cardiology recommendations EF has not improved 30 to 35%, Diabetes with peripheral vascular disease and neuropathy A1c 7.7 No active hypoglycemic events Intermittent tachycardia: Monitor on telemetry floor We will touch base with Dr. Jimenez today for long-term antibiotic regimen, family is not very excited but IV prolonged antibiotic course but considering guarded healing this seems inevitable at this point Attestations Medical Necessity Statement*: Continue medical therapy Diagnoses SVT (supraventricular tachycardia) I47.1 Acute kidney injury superimposed on CKD N17.9; N18.9 Contrast-induced nephropathy N14.11; T50.8X5A Pulmonary infiltrate present on computed tomography R91.8 Exertional dyspnea R06.09 Non-pressure chronic ulcer of other part of right foot with necrosis of bone L97.514 Diabetes mellitus with peripheral vascular disease E11.51 Diabetic neuropathy E11.40 Ischemic cardiomyopathy I25.5 Non-healing ulcer L98.499 Pleural effusion, left J90 Gangrenous toe I96 Elevated hemidiaphragm J98.6 Status post amputation of toe of right foot Z89.421 HTN (hypertension) I10 Hypertension type: essential hypertension Peripheral arterial disease I73.9
[2023-02-10 13:34] LABS: Glucose Point of Care 110 mg/dL (70-110)
[2023-02-10] MEDS: linezolid premix 600 MG/300 ML PREMIX 300 MG IV (15:15)
[2023-02-10 17:16] LABS: Glucose Point of Care 183 mg/dL (70-110)
[2023-02-10] MEDS: magnesium oxide 400 mg tablet PO (18:23)
[2023-02-10] MEDS: aspirin 81 mg EC Tablet PO (20:13)
[2023-02-10] MEDS: TRAMadol 50 mg Tablet PO (20:14)
[2023-02-10] MEDS: acetaminophen 325 mg Tablet 650 MG PO (20:20)
[2023-02-10 21:13] LABS: Glucose Point of Care 226 mg/dL (70-110)
[2023-02-11] VITALS (55 sets, daily range): BP systolic 111–140; BP diastolic 61–78; PULSE 70–85; RESP 0–31; TEMP 36.6–37.1; O2SAT 85–100; BMI 29.5
[2023-02-11] MEDS: linezolid premix 600 MG/300 ML PREMIX 300 MG IV (01:19)
[2023-02-11 01:31] LABS: Glucose Point of Care 192 mg/dL (70-110)
[2023-02-11] MEDS: thyroid 60 mg Tablet PO (05:22)
[2023-02-11] MEDS: insulin glargine 100 units/1 mL 36 UNIT SUBCUT (05:22)
[2023-02-11] MEDS: heparin 5,000 unit/mL INJ 1 mL 5000 UNIT SUBCUT ×2 (05:22→19:24)
[2023-02-11] MEDS: FUROsemide 40 mg Tablet PO (05:22)
[2023-02-11] MEDS: aztreonam 1,000 MG in sodium chloride 0.9% (plus) 50 ML 100 MG IV (05:22)
[2023-02-11 05:34] LABS: Basophils # 0.1 10^3/uL (0.0-0.1); Basophils % 0.5 %; Eosinophils # 0.3 10^3/uL (0.0-0.8); Eosinophils % 2.1 %; Hematocrit 35.3 % (42.0-52.0); Hemoglobin 10.5 g/dL (11.7-16.6); Lymphocytes # 2.8 10^3/uL (0.8-4.8); Lymphocytes % 20.8 %; Mean Corpuscular HGB Conc 29.7 g/dL (30.0-36.0); Mean Corpuscular Hemoglobin 27.6 pg (28.0-34.0); Mean Corpuscular Volume 92.7 fl (80-94); Mean Platelet Volume 9.5 fL (7.4-10.4); Monocytes % 7.1 %; Neutrophils # 9.42 10^3/uL (1.8-7.7); Nucleated Red Blood Cells % 0 %; Platelet Count 283 10^3/cmm (130-400); Red Blood Count 3.81 10^6/uL (4.1-5.3); Red Cell Distribution Width 13.9 % (12.1-15.1); White Blood Count 13.7 10^3/uL (4.0-10.0)
[2023-02-11 06:20] LABS: Anion Gap 15.4 (5-19); Blood Urea Nitrogen 30 mg/dL (8-23); Calcium 7.9 mg/dL (8.5-10.5); Carbon Dioxide 24 mmol/L (22-29); Chloride 100 mmol/L (98-107); Glucose 168 mg/dL (65-115); Osmolality Calculated 290 mOsm/kg (285-295); Potassium 4.4 mmol/L (3.5-5.1); Sodium 135 mmol/L (136-145)
[2023-02-11 06:43] LABS: Glucose Point of Care 180 mg/dL (70-110)
--- NOTE | 2023-02-11 06:55 | PM.PN ---
Subjective Subjective: Patient seen bedside this AM. Denies any acute events overnight. Status post right third toe amputation secondary to gangrene performed 02/06/2023. is bedside. Vitals/I&O/Wt Last Vital Signs Temp 98.0 F 02/11/23 04:00 Pulse 79 02/11/23 06:00 Resp 18 02/11/23 04:00 BP 138/78 02/11/23 04:00 Pulse Ox 99 02/11/23 04:00 O2 Del Method Room Air 02/11/23 04:00 O2 Flow Rate 3 02/06/23 08:00 02/10/23 02/10/23 02/11/23 14:59 22:59 06:59 Intake Total 636 / 636 468 / 1104 500 / 1604 Output Total 2301 / 2301 25 / 2326 Balance -1665 / -1665 468 / -1197 475 / -722 Weight last 48 hrs Weight 212 lb 4.882 oz Weight 217 lb 5 oz Physical Exam Narrative: GENERAL: Patient is alert and oriented ?3 and in no acute distress. The following is a focused right lower extremity exam. Accompanied by his . VASCULAR: Dorsalis pedis diminished. Right posterior tibial artery diminished. Delayed capillary refill at right fourth and fifth toes. Rubor to bilateral lower extremity, dependent. NEUROLOGICAL: Protective sensation intact 0/10 sites, tested with [place] Jennifer monofilament to bilateral feet. DERMATOLOGICAL: Sutures intact without dehiscence at delayed closure site. No proximal lymphangitic streaking or erythema at the right ankle. MUSCULOSKELETAL: Status post amputation of right great toe and second toe. Status post right third toe amputation. No pain to palpation of right foot secondary to neuropathy. No crepitus with palpation of soft tissue, right foot. Data 02/11/23 04:28 02/11/23 04:28 Micro: Microbiology 02/05/23 12:39 Blood Culture - Final Blood NO GROWTH AFTER 5 DAYS 02/05/23 11:38 Blood Culture - Final Blood NO GROWTH AFTER 5 DAYS A&P Assessment and plan (1) Diabetes mellitus with peripheral vascular disease: (2) Gangrenous toe: (3) Status post amputation of toe of right foot: (4) Peripheral arterial disease: Plan 72-year-old male with diabetes and peripheral arterial disease presents with gangrenous right third toe. -status post primary delayed closure right foot. -Postoperative dressings to be kept clean and dry. -May heel touch for transfers of the right lower extremity with postop shoe. -Bone culture right third toe significant for Citrobacter and MRSA. -WBC trending down. Right foot is clinically stable. Underlying concern is adequate perfusion. Patient is aware that he may require higher level of amputation should he fail to heal delayed closure at the right third toe amputation site. -Plans for PICC line in ceftriaxone -From podiatry standpoint patient is okay for discharge. Daily dressing change of Maxorb AG, gauze and skin retention tape at amputation site right foot. Follow-up visit input clinic outpatient 02/14/2023. Dr. Baird D.P.M. cell phone [phone] Attestations Medical Necessity Statement*: Gangrene right third toe Coding Level of Care Code Acute Code for g Fwd Diagnoses Diabetes mellitus with peripheral vascular disease E11.51 Gangrenous toe I96 Status post amputation of toe of right foot Z89.421 Peripheral arterial disease I73.9
--- NOTE | 2023-02-11 07:51 | P.PN_ITS ---
Subjective Subjective: Usman is doing okay. He was dialyzed yesterday. His wants to know when he can go home. Hemoglobin is stable at 10.5. Creatinine is down to 4.5 today. Potassium 4.4. He says he has had a very small amount of urine. No further arrhythmias. Vitals/I&O/Wt Last Vital Signs Temp 98.0 F 02/11/23 04:00 Pulse 79 02/11/23 06:00 Resp 18 02/11/23 04:00 BP 138/78 02/11/23 04:00 Pulse Ox 99 02/11/23 04:00 O2 Del Method Room Air 02/11/23 04:00 O2 Flow Rate 3 02/06/23 08:00 02/10/23 02/11/23 02/11/23 22:59 06:59 14:59 Intake Total 468 / 1104 500 / 1604 Output Total 25 / 2326 Balance 468 / -1197 475 / -722 Weight last 48 hrs Weight 212 lb 4.882 oz Weight 217 lb 5 oz Physical Exam Narrative: GENERAL: In general he appears comfortable today. HEENT: Exam within normal limits. NECK: Supple without jugular vein distention. The carotid upstroke is normal without bruits. BACK: Exam normal. LUNGS: Clear. HEART: Regular rate and rhythm. ABDOMEN: Benign without organomegaly or tenderness. EXTREMITIES: No edema. NEUROLOGIC: Exam normal. SKIN: Unremarkable. Data 02/11/23 04:28 02/11/23 04:28 Micro: Microbiology 02/05/23 12:39 Blood Culture - Final Blood NO GROWTH AFTER 5 DAYS 02/05/23 11:38 Blood Culture - Final Blood NO GROWTH AFTER 5 DAYS A&P Assessment and plan (1) SVT (supraventricular tachycardia): (2) Acute kidney injury superimposed on CKD: (3) Contrast-induced nephropathy: (4) Diabetes mellitus with peripheral vascular disease: (5) Ischemic cardiomyopathy: (6) Pleural effusion, left: (7) Systolic heart failure: (8) Gangrenous toe: (9) Atherosclerosis of coronary artery: Qualifiers: Coronary Disease-Associated Artery/Lesion type: [place] artery [place] vs. transplanted heart: [place] heart Associated angina: with other forms of angina Qualified Code(s): I25.118 - Atherosclerotic heart disease of [place] coronary artery with other forms of angina pectoris (10) HTN (hypertension): Qualifiers: Hypertension type: essential hypertension Qualified Code(s): I10 - Essential (primary) hypertension (11) Peripheral arterial disease: Plan Continue present plan. No changes. Attestations Medical Necessity Statement*: Continued hospitalization for management of critical limb ischemia and contrast- induced nephropathy. and Moderate Time for a total of 35 minutes, includes reviewing past or interval history, examining/interviewing patient, counseling p atient/family/other support, updating patient/family/other support, communicating with other healthcare providers and documenting encounter Diagnoses SVT (supraventricular tachycardia) I47.1 Acute kidney injury superimposed on CKD N17.9; N18.9 Contrast-induced nephropathy N14.11; T50.8X5A Diabetes mellitus with peripheral vascular disease E11.51 Ischemic cardiomyopathy I25.5 Pleural effusion, left J90 Systolic heart failure I50.20 Gangrenous toe I96 Atherosclerosis of coronary artery I25.118 Coronary Disease-Associated Artery/Lesion type: [place] artery [place] vs. transplanted heart: [place] heart Associated angina: with other forms of angina HTN (hypertension) I10 Hypertension type: essential hypertension Peripheral arterial disease I73.9
[2023-02-11] MEDS: ondansetron 2 mg/ML SDV 2 mL 4 MG IVP (08:06)
[2023-02-11] MEDS: pantoprazole 40 mg SDV IVP (08:06)
[2023-02-11] MEDS: acetaminophen 325 mg Tablet 650 MG PO (08:17)
[2023-02-11] MEDS: metoprolol tartrate 25 mg Tablet PO ×2 (09:29→19:24)
[2023-02-11] MEDS: cefTRIAXone 2,000 MG in sodium chloride 0.9% (plus) 50 ML 100 MG IV (09:29)
--- NOTE | 2023-02-11 09:37 | PM.PN ---
Subjective Subjective: denies any complaints Medications: Reviewed: Yes Vitals/I&O/Wt Last Vital Signs Temp 98.0 F 02/11/23 04:00 Pulse 79 02/11/23 06:00 Resp 18 02/11/23 04:00 BP 138/78 02/11/23 04:00 Pulse Ox 99 02/11/23 04:00 O2 Del Method Room Air 02/11/23 04:00 O2 Flow Rate 3 02/06/23 08:00 02/10/23 02/11/23 02/11/23 22:59 06:59 14:59 Intake Total 468 / 1104 500 / 1604 Output Total 2325 Balance 468 / -1197 475 / -722 Weight last 48 hrs Weight 96.162 kg Weight 96.3 kg Weight 98.571 kg Physical Exam Narrative: Patient is awake alert with no acute distress, on room air HEENT S1-S2 regular rate and rhythm per report Clear to auscultation per report Right foot dressed, has pedal edema Data 02/11/23 04:28 02/11/23 04:28 Micro: Microbiology 02/05/23 12:39 Blood Culture - Final Blood NO GROWTH AFTER 5 DAYS 02/05/23 11:38 Blood Culture - Final Blood NO GROWTH AFTER 5 DAYS A&P Assessment and plan (1) Acute kidney injury superimposed on CKD: 1. Acute on chronic kidney disease stage III: Baseline creatinine is in the 1.7-2 range. Patient now has SALLY's-multifactorial secondary to ATN from acute infection, contrast nephropathy -Creatinine getting worse along with hyperkalemia and metabolic acidosis -Requested temporary HD catheter placement and initiate HD. Discussed with patient and patient's at bedside, who agreed for temporary dialysis.s/p HD yesterday -Non renal recovery yet , assess daily for HD needs 2. Hyperkalemia: Placed on low potassium diet, check BMP this afternoon, will give a dose of Lasix, and amp of bicarbonate 3. History of hypertension: Blood pressure controlled 4. Metabolic acidosis: Secondary to lactic acidosis, 5 severe peripheral vascular disease: Status post right toe amputation, 6. History of coronary artery disease and prior stents Patient evaluated using audiovisual cart. Time spent 40 minutes. Attestations Medical Necessity Statement*: per medicine Coding Level of Care Code Acute Code for Chg Fwd Diagnoses Acute kidney injury superimposed on CKD N17.9; N18.9
--- NOTE | 2023-02-11 10:07 | P.PN_ITS ---
Subjective Subjective: Leukocytosis trending down I have decided to go with ceftriaxone 2 g daily I have asked nurse to notify me if any signs of anaphylactic reaction skin rash or itching are reported by the patient Patient had a bowel movement yesterday Patient is stating that he does not feel like eating he feels nauseous however no active vomiting Passing flatus, he made about 25 ml of urine this morning I would go ahead and request PICC line placement and give him 4 weeks of ceftriaxone 2 g daily I have asked criminal justice social worker to see if PCP could follow-up for IV antibiotics Vitals/I&O/Wt Last Vital Signs Temp 98.0 F 02/11/23 04:00 Pulse 79 02/11/23 06:00 Resp 18 02/11/23 04:00 BP 123/76 02/11/23 10:02 Pulse Ox 99 02/11/23 04:00 O2 Del Method Room Air 02/11/23 04:00 O2 Flow Rate 3 02/06/23 08:00 02/10/23 02/11/23 02/11/23 22:59 06:59 14:59 Intake Total 468 / 1104 500 / 1604 Output Total / 6 150 / 150 Balance 468 / -1197 475 / -722 -150 / -150 Weight last 48 hrs Weight 96.162 kg Weight 96.3 kg Weight 98.571 kg Physical Exam Narrative: Patient lying supine Fatigued and lethargic Awake and alert GCS 15 Nonfocal neuro exam Abdomen soft Dialysis catheter in place S1, S2 Abdomen soft Lower extremity trace edema Cellulitis improving Right foot covered in dressing Data 02/11/23 04:28 02/11/23 04:28 Micro: Microbiology 02/05/23 12:39 Blood Culture - Final Blood NO GROWTH AFTER 5 DAYS 02/05/23 11:38 Blood Culture - Final Blood NO GROWTH AFTER 5 DAYS A&P Assessment and plan (1) Contrast-induced nephropathy: (2) Pulmonary infiltrate present on computed tomography: (3) Exertional dyspnea: (4) Chest tightness: (5) Non-pressure chronic ulcer of other part of right foot with necrosis of bone: (6) Diabetes mellitus with peripheral vascular disease: (7) Diabetic ulcer of right foot: (8) Ischemic cardiomyopathy: (9) Gangrenous toe: (10) Diabetes: Qualifiers: Diabetes mellitus type: type 2 Diabetes mellitus nursing home insulin use: with bed bug exterminator use Diabetes mellitus complication status: with kidney complications (11) Peripheral neuropathy: (12) History of diabetic retinopathy: (13) History of amputation of toe: Plan Diabetic foot ulcer with gangrene Postop day 2 Leukocytosis trending down Afebrile MSSA and Citrobacter sensitive to cephalosporin Start ceftriaxone 2 g, will need PICC line placement and 4 weeks of antibiotics Asked criminal justice social worker to follow-up with PCP if they could follow-up for IV antibiotics Appreciate podiatry recommendations MRI without osteomyelitis Contrast-induced nephropathy Temporary dialysis catheter in place Getting dialyzed Only made 25 mL of urine We will ask nephrology if this needs to be changed to tunneled catheter Patient will need long-term IV antibiotics as he is at risk of delayed wound healing, further worsening, amputation Anorexia Nausea, patient had a bowel movement yesterday No active emesis Could be due to uremia Insomnia: We will give him sleep aid tonight Diabetes with retinopathy peripheral vascular disease and neuropathy Consistent carb renal diet Intermittent tachycardia: No acute exacerbation Patient and his both agreeable for PICC line placement and 4 weeks of IV antibiotics at discharge Spoke with, Nataliya and Dr. Munguia Attestations Medical Necessity Statement*: Continue medical management Diagnoses Contrast-induced nephropathy N14.11; T50.8X5A Pulmonary infiltrate present on computed tomography R91.8 Exertional dyspnea R06.09 Chest tightness R07.89 Non-pressure chronic ulcer of other part of right foot with necrosis of bone L97.514 Diabetes mellitus with peripheral vascular disease E11.51 Diabetic ulcer of right foot E11.621; L97.519 Ischemic cardiomyopathy I25.5 Gangrenous toe I96 Diabetes E11.9 Diabetes mellitus type: type 2 Diabetes mellitus nursing home insulin use: with bed bug exterminator use Diabetes mellitus complication status: with kidney complications Peripheral neuropathy G62.9 History of diabetic retinopathy Z86.39 History of amputation of toe Z89.429
[2023-02-11] MEDS: metoclopramide 5 mg/mL SDV 2 mL IVP (10:52)
[2023-02-11 11:33] LABS: Glucose Point of Care 155 mg/dL (70-110)
--- NOTE | 2023-02-11 11:47 | PC.NURSE ---
Patient did not feel like eating breakfast, due to nausea. Offered snack if he gets hungry/or feels like eating before lunch.
--- NOTE | 2023-02-11 18:02 | PC.NURSE ---
Patient and had asked that patient please get a bath today. I told them that we could try and do that. Explained to patient and that time had gotten away from us throughout the day and that we had not been able to get him a bath and that we would talk to power and recovery shift engineer about the patient getting a bath prior to going to sleep tonight.
[2023-02-11 18:06] LABS: Glucose Point of Care 198 mg/dL (70-110)
[2023-02-11] MEDS: magnesium oxide 400 mg tablet PO (19:23)
[2023-02-11] MEDS: zolpidem 5 mg Tablet PO (20:18)
[2023-02-11] MEDS: aspirin 81 mg EC Tablet PO (20:18)
[2023-02-11] MEDS: TRAMadol 50 mg Tablet PO (20:19)
[2023-02-11 22:05] LABS: Glucose Point of Care 213 mg/dL (70-110)
[2023-02-12] VITALS (9 sets, daily range): BP systolic 120–142; BP diastolic 62–78; PULSE 77–87; RESP 16–27; TEMP 36.5–36.9; O2SAT 92–98
[2023-02-12 04:34] LABS: Basophils # 0.1 10^3/uL (0.0-0.1); Basophils % 0.4 %; Eosinophils # 0.3 10^3/uL (0.0-0.8); Eosinophils % 1.7 %; Hematocrit 35.2 % (42.0-52.0); Lymphocytes # 3.3 10^3/uL (0.8-4.8); Mean Corpuscular HGB Conc 31.3 g/dL (30.0-36.0); Mean Corpuscular Hemoglobin 28.6 pg (28.0-34.0); Mean Corpuscular Volume 91.7 fl (80-94); Mean Platelet Volume 9.6 fL (7.4-10.4); Monocytes % 6.1 %; Neutrophils # 11.12 10^3/uL (1.8-7.7); Neutrophils % 70.2 %; Nucleated Red Blood Cells % 0 %; Platelet Count 371 10^3/cmm (130-400); Red Blood Count 3.84 10^6/uL (4.1-5.3); Red Cell Distribution Width 14.1 % (12.1-15.1); White Blood Count 15.9 10^3/uL (4.0-10.0)
[2023-02-12 04:56] LABS: Blood Urea Nitrogen 34 mg/dL (8-23); Calcium 8.1 mg/dL (8.5-10.5); Carbon Dioxide 27 mmol/L (22-29); Chloride 97 mmol/L (98-107); Glomerular Filtration Rate 12.4 mL/min (90-130); Glucose 100 mg/dL (65-115); Osmolality Calculated 286 mOsm/kg (285-295); Sodium 134 mmol/L (136-145)
[2023-02-12] MEDS: FUROsemide 40 mg Tablet PO (05:05)
[2023-02-12] MEDS: thyroid 60 mg Tablet PO (05:06)
[2023-02-12] MEDS: insulin glargine 100 units/1 mL 36 UNIT SUBCUT (05:06)
[2023-02-12] MEDS: heparin 5,000 unit/mL INJ 1 mL 5000 UNIT SUBCUT ×2 (05:06→18:27)
[2023-02-12 06:35] LABS: Glucose Point of Care 91 mg/dL (70-110)
--- NOTE | 2023-02-12 07:09 | P.PN_ITS ---
Subjective Subjective: Usman said he is doing fine except for out of 4:00 this morning he felt a little woozy. No nausea. Creatinine is 4.7 this morning with a BUN of 34. He says he is making a little urine. No arrhythmias Vitals/I&O/Wt Last Vital Signs Temp 98.4 F 02/12/23 03:58 Pulse 83 02/12/23 04:54 Resp 16 02/12/23 03:58 BP 131/67 02/12/23 03:58 Pulse Ox 98 02/12/23 03:58 O2 Del Method Room Air 02/12/23 03:58 O2 Flow Rate 3 02/06/23 08:00 02/11/23 02/12/23 02/12/23 22:59 06:59 14:59 Intake Total 236 / 522 1000 / 1522 Output Total 275 / 525 500 / 1025 Balance -39 / -3 500 / 497 Weight last 48 hrs Weight 190 lb Weight 212 lb Weight 212 lb 4.882 oz Physical Exam Narrative: GENERAL: In general he is comfortable this morning HEENT: Exam within normal limits. NECK: Supple without jugular vein distention. The carotid upstroke is normal without bruits. BACK: Exam normal. LUNGS: Clear. HEART: Regular rate and rhythm. ABDOMEN: Benign without organomegaly or tenderness. EXTREMITIES: No edema. NEUROLOGIC: Exam normal. SKIN: Unremarkable. Data 02/12/23 03:09 02/12/23 03:09 A&P Assessment and plan (1) SVT (supraventricular tachycardia): (2) Acute kidney injury superimposed on CKD: (3) Contrast-induced nephropathy: (4) Diabetes mellitus with peripheral vascular disease: (5) Ischemic cardiomyopathy: (6) Pleural effusion, left: (7) Systolic heart failure: (8) Gangrenous toe: (9) Status post amputation of toe of right foot: (10) Atherosclerosis of coronary artery: Qualifiers: Coronary Disease-Associated Artery/Lesion type: [place] artery [place] vs. transplanted heart: [place] heart Associated angina: with other forms of angina Qualified Code(s): I25.118 - Atherosclerotic heart disease of [place] coronary artery with other forms of angina pectoris (11) Hyperlipidemia: Qualifiers: Hyperlipidemia type: mixed hyperlipidemia Qualified Code(s): E78.2 - Mixed hyperlipidemia (12) Peripheral neuropathy: (13) HTN (hypertension): Qualifiers: Hypertension type: essential hypertension Qualified Code(s): I10 - Essential (primary) hypertension (14) Peripheral arterial disease: Plan Continue present care. Hopefully his kidneys will recover. Attestations Medical Necessity Statement*: Hospitalization required for management of acute renal failure among other problems and Straight Forward/Low Time for a total of 15 minutes, includes reviewing past or interval history, examining/interviewing patient, updating patient/family/other support and documenting encounter Diagnoses SVT (supraventricular tachycardia) I47.1 Acute kidney injury superimposed on CKD N17.9; N18.9 Contrast-induced nephropathy N14.11; T50.8X5A Diabetes mellitus with peripheral vascular disease E11.51 Ischemic cardiomyopathy I25.5 Pleural effusion, left J90 Systolic heart failure I50.20 Gangrenous toe I96 Status post amputation of toe of right foot Z89.421 Atherosclerosis of coronary artery I25.118 Coronary Disease-Associated Artery/Lesion type: [place] artery [place] vs. transplanted heart: [place] heart Associated angina: with other forms of angina Hyperlipidemia E78.2 Hyperlipidemia type: mixed hyperlipidemia Peripheral neuropathy G62.9 HTN (hypertension) I10 Hypertension type: essential hypertension Peripheral arterial disease I73.9
[2023-02-12] MEDS: pantoprazole 40 mg SDV IVP (09:07)
[2023-02-12] MEDS: metoprolol tartrate 25 mg Tablet PO ×2 (09:07→18:27)
[2023-02-12] MEDS: cefTRIAXone 2,000 MG in sodium chloride 0.9% (plus) 50 ML 100 MG IV (09:08)
--- NOTE | 2023-02-12 09:53 | P.PN_ITS ---
Subjective Subjective: no new complaints Medications: Reviewed: Yes Vitals/I&O/Wt Last Vital Signs Temp 98.3 F 02/12/23 07:31 Pulse 83 02/12/23 07:31 Resp 27 H 02/12/23 07:31 BP 134/74 02/12/23 07:31 Pulse Ox 97 02/12/23 07:31 O2 Del Method Room Air 02/12/23 07:31 O2 Flow Rate 3 02/06/23 08:00 02/11/23 02/12/23 02/12/23 22:59 06:59 14:59 Intake Total 236 / 522 1000 / 1522 473 / 473 Output Total 275 / 525 500 / 1025 Balance -39 / -3 500 / 497 473 / 473 Weight last 48 hrs Weight 86.183 kg Weight 96.162 kg Weight 96.3 kg Physical Exam Narrative: Patient is awake alert with no acute distress, on room air HEENT S1-S2 regular rate and rhythm per report Clear to auscultation per report Right foot dressed, has pedal edema Data 02/12/23 03:09 02/12/23 03:09 A&P Assessment and plan (1) Acute kidney injury superimposed on CKD: 1. Acute on chronic kidney disease stage III: Baseline creatinine is in the 1.7-2 range. Patient now has SALLY's-multifactorial secondary to ATN from acute infection, contrast nephropathy -Creatinine worsened with hyperkalemia and metabolic acidosis, s/p temporary HD catheter placement and initiate HD. s/p 2 sessions - Cr stable today and UOP increased -No HD today and watch for renal recovery. 2. Hyperkalemia: Placed on low potassium diet, check BMP this afternoon, will g reymundo a dose of Lasix, and amp of bicarbonate 3. History of hypertension: Blood pressure controlled 4. Metabolic acidosis: Secondary to lactic acidosis, 5 severe peripheral vascular disease: Status post right toe amputation, 6. History of coronary artery disease and prior stents Patient evaluated using audiovisual cart. Time spent 40 minutes. (2) Contrast-induced nephropathy: (3) Diabetes mellitus with peripheral vascular disease: (4) Ischemic cardiomyopathy: (5) Status post amputation of toe of right foot: (6) Hyperlipidemia: Qualifiers: Hyperlipidemia type: mixed hyperlipidemia Qualified Code(s): E78.2 - Mixed hyperlipidemia (7) Peripheral neuropathy: (8) HTN (hypertension): Qualifiers: Hypertension type: essential hypertension Qualified Code(s): I10 - Essential (primary) hypertension (9) Peripheral arterial disease: Attestations Medical Necessity Statement*: per medicine Coding Level of Care Code Acute Code for [facility] Fwd Diagnoses Acute kidney injury superimposed on CKD N17.9; N18.9 Contrast-induced nephropathy N14.11; T50.8X5A Diabetes mellitus with peripheral vascular disease E11.51 Ischemic cardiomyopathy I25.5 Status post amputation of toe of right foot Z89.421 Hyperlipidemia E78.2 Hyperlipidemia type: mixed hyperlipidemia Peripheral neuropathy G62.9 HTN (hypertension) I10 Hypertension type: essential hypertension Peripheral arterial disease I73.9
--- NOTE | 2023-02-12 10:03 | PM.PN ---
Subjective Subjective: Urine output has improved Creatinine stable No hyperkalemia or acidosis Monitoring off dialysis for 1 more day PICC line today Patient will need ceftriaxone 2 g daily, PCP to follow-up outpatient for IV antibiotics request lifevest Ef30% Vitals/I&O/Wt Last Vital Signs Temp 98.3 F 02/12/23 07:31 Pulse 83 02/12/23 07:31 Resp 27 H 02/12/23 07:31 BP 134/74 02/12/23 07:31 Pulse Ox 97 02/12/23 07:31 O2 Del Method Room Air 02/12/23 07:31 O2 Flow Rate 3 02/06/23 08:00 02/11/23 02/12/23 02/12/23 22:59 06:59 14:59 Intake Total 236 / 522 1000 / 1522 473 / 473 Output Total 275 / 525 500 / 1025 Balance -39 / -3 500 / 497 473 / 473 Weight last 48 hrs Weight 86.183 kg Weight 96.162 kg Weight 96.3 kg Physical Exam Narrative: Patient is laying supine Clinically looks euvolemic No active complaints Currently on room air Short attention span No active chest pain Hemodynamically stable Data 02/12/23 03:09 02/12/23 03:09 A&P Assessment and plan (1) Ischemic cardiomyopathy: (2) Contrast-induced nephropathy: (3) Pulmonary infiltrate present on computed tomography: (4) Exertional dyspnea: (5) Diabetes mellitus with peripheral vascular disease: (6) Diabetic neuropathy: (7) Systolic heart failure: (8) Gangrenous toe: (9) History of amputation of toe: (10) Peripheral neuropathy: (11) History of diabetic retinopathy: (12) Diabetes: Qualifiers: Diabetes mellitus type: type 2 Diabetes mellitus terminal carman insulin use: with terminal carman use Diabetes mellitus complication status: with kidney complications (13) Peripheral arterial disease: Plan Diabetic foot with gangrene Status post surgical intervention by Dr. Baird MSSA and Citrobacter patient has not developed any reaction to ceftriaxone which was started on 02/11, patient will need at least 4 weeks of ceftriaxone 2 g daily sr. social media & mobile manager notified PCP to follow-up outpatient Systolic reduced EF exacerbation Continue Lasix We will request LifeVest at discharge No plan for stress test or angiogram at this point considering worsening contrast-induced nephropathy Non-STEMI: Medical management for now Appreciate cardio recommendations Contrast-induced nephropathy requiring dialysis Monitoring off dialysis for next 24 hours Urine output more than a liter in last 24 hours Creatinine is stable no hyperkalemia or acidosis No plan for permanent dialysis catheter placement as of yet Appreciate nephro recommendations Diabetes: Consistent carb diet DVT prophylaxis heparin Continue Lantus Hypomagnesemia: Continue p.o. magnesium tablets Continue levothyroxine Insomnia: Ambien started yesterday patient rested well PICC line to be placed today Attestations Medical Necessity Statement*: Continue medical management Diagnoses Ischemic cardiomyopathy I25.5 Contrast-induced nephropathy N14.11; T50.8X5A Pulmonary infiltrate present on computed tomography R91.8 Exertional dyspnea R06.09 Diabetes mellitus with peripheral vascular disease E11.51 Diabetic neuropathy E11.40 Systolic heart failure I50.20 Gangrenous toe I96 History of amputation of toe Z89.429 Peripheral neuropathy G62.9 History of diabetic retinopathy Z86.39 Diabetes E11.9 Diabetes mellitus type: type 2 Diabetes mellitus terminal carman insulin use: with custodial use Diabetes mellitus complication status: with kidney complications Peripheral arterial disease I73.9
--- NOTE | 2023-02-12 10:29 | PC.SOCIAL ---
Imm update IMM updated with patient at bedside. Copy of page 2 provided. Patient verbalized understanding. Copy in chart initialed, dated and timed.
[2023-02-12 11:18] LABS: Glucose Point of Care 204 mg/dL (70-110)
[2023-02-12] MEDS: acetaminophen 325 mg Tablet 650 MG PO ×2 (11:26→20:49)
[2023-02-12] MEDS: insulin lispro 100 unit/1 mL SUBCUT (11:56)
--- NOTE | 2023-02-12 13:30 | XR_ITS ---
WS: [id number] XR chest 1V portable [id number] REASON FOR EXAM: Post PICC FINDINGS: A left arm PICC line has been placed. The tip of the PICC line is in the superior vena cava just above the right atrium. Left pleural effusion. Increasing reticular lung opacities in the central lungs and additional airspace consolidation in the left lower lung compared to the previous examination of 02/08/2023. No other interval change or new findings. XR/XR chest 1V portable [id number] IMPRESSION: PICC line placement in proper position in the SVC as above. Increasing lung opacities as above. The central lung opacities may represent ea rly interstitial edema. The left lung base abnormality may represent pneumoniti s and/or atelectasis.
--- NOTE | 2023-02-12 14:32 | PC.NURSE ---
Single lumen PICC placed without difficulty. Referred for PICC line due to need for IV antibiotics x 4-6 weeks. Pt states he had a PICC line previously and they were unable to pass catheter through right shoulder area. Left arm basilic vein assessed, noted to be 5 mm, straight, and apparent best choice for placement. Informed consent obtained from patient and prior to procedure. Using sterile technique and MST, left basilic vein accessed x 1 stick. Mid-arm circumference measured 10 cm from left AC 30 cm. Trimmed cath 42 cm with 0 cm external length. CXR confirms tip in SVC, in good position for use per radiologist. Stat lock used to secure line. Insertion site covered with Biopatch and TSM. Report given to charge nurse Tracy.
[2023-02-12 18:09] LABS: Glucose Point of Care 112 mg/dL (70-110)
[2023-02-12] MEDS: magnesium oxide 400 mg tablet PO (18:27)
[2023-02-12] MEDS: aspirin 81 mg EC Tablet PO (20:48)
[2023-02-12] MEDS: TRAMadol 50 mg Tablet PO (20:48)
[2023-02-12 20:59] LABS: Glucose Point of Care 163 mg/dL (70-110)
[2023-02-13] VITALS (11 sets, daily range): BP systolic 115–141; BP diastolic 46–73; PULSE 52–95; RESP 14–31; TEMP 36.5–36.8; O2SAT 92–100
--- NOTE | 2023-02-13 00:15 | PC.NURSE ---
Patient requested that I recheck his blood glucose.
[2023-02-13 00:22] LABS: Glucose Point of Care 125 mg/dL (70-110)
[2023-02-13 05:27] LABS: Basophils # 0.1 10^3/uL (0.0-0.1); Basophils % 0.5 %; Eosinophils # 0.3 10^3/uL (0.0-0.8); Eosinophils % 1.9 %; Hematocrit 33.9 % (42.0-52.0); Hemoglobin 10.5 g/dL (11.7-16.6); Lymphocytes # 3.2 10^3/uL (0.8-4.8); Lymphocytes % 22.7 %; Mean Corpuscular Hemoglobin 28.3 pg (28.0-34.0); Mean Corpuscular Volume 91.4 fl (80-94); Mean Platelet Volume 9.4 fL (7.4-10.4); Monocytes % 6.7 %; Neutrophils # 9.63 10^3/uL (1.8-7.7); Neutrophils % 67.6 %; Nucleated Red Blood Cells % 0 %; Platelet Count 414 10^3/cmm (130-400); Red Blood Count 3.71 10^6/uL (4.1-5.3); Red Cell Distribution Width 14.2 % (12.1-15.1); White Blood Count 14.3 10^3/uL (4.0-10.0)
[2023-02-13 05:44] LABS: Anion Gap 12.5 (5-19); Blood Urea Nitrogen 36 mg/dL (8-23); Calcium 7.9 mg/dL (8.5-10.5); Carbon Dioxide 28 mmol/L (22-29); Chloride 102 mmol/L (98-107); Glomerular Filtration Rate 14.9 mL/min (90-130); Glucose 85 mg/dL (65-115); Osmolality Calculated 294 mOsm/kg (285-295); Potassium 4.5 mmol/L (3.5-5.1); Sodium 138 mmol/L (136-145)
[2023-02-13 06:11] LABS: Glucose Point of Care 87 mg/dL (70-110)
[2023-02-13] MEDS: FUROsemide 40 mg Tablet PO (06:16)
[2023-02-13] MEDS: heparin 5,000 unit/mL INJ 1 mL 5000 UNIT SUBCUT ×2 (06:16→18:18)
[2023-02-13] MEDS: thyroid 60 mg Tablet PO (06:16)
--- NOTE | 2023-02-13 07:53 | PM.PN ---
Subjective Subjective: Usman is comfortable. He did not require dialysis. Hemoglobin hematocrit are stable 10.5 and 33.9 respectively. His creatinine is down to 4.0 with a BUN of 36. Potassium remains well within normal range. His urine output has picked up. According to the chart 910 mL of urine output yesterday. His echo from the fifth was limited and suggested an ejection fraction of 30 to 35% but it was a poor quality study. There was no significant valvular disease. The echo looks similar to the echo from 2019. Vitals/I&O/Wt Last Vital Signs Temp 97.7 F 02/13/23 07:31 Pulse 95 02/13/23 07:31 Resp 14 02/13/23 07:31 BP 115/46 02/13/23 07:31 Pulse Ox 97 02/13/23 07:31 O2 Del Method Room Air 02/13/23 07:31 O2 Flow Rate 2 02/13/23 04:00 02/12/23 02/13/23 02/13/23 22:59 06:59 14:59 Intake Total 356 / 1239 120 / 1359 Output Total 810 / 1110 Balance -454 / 129 120 / 249 Weight last 48 hrs Weight 190 lb Weight 212 lb Physical Exam Narrative: GENERAL: He is awake and alert and comfortable. HEENT: Exam within normal limits. NECK: Supple without jugular vein distention. The carotid upstroke is normal without bruits. BACK: Exam normal. LUNGS: Clear. HEART: Regular rate and rhythm. ABDOMEN: Benign without organomegaly or tenderness. EXTREMITIES: No edema. NEUROLOGIC: Exam normal. SKIN: Unremarkable. Data 02/13/23 04:04 02/13/23 04:04 A&P Assessment and plan (1) SVT (supraventricular tachycardia): (2) Acute kidney injury superimposed on CKD: (3) Contrast-induced nephropathy: (4) CKD (chronic kidney disease): (5) Diabetes mellitus with peripheral vascular disease: (6) Ischemic cardiomyopathy: (7) Systolic heart failure: (8) Gangrenous toe: (9) Status post amputation of toe of right foot: (10) Atherosclerosis of coronary artery: Qualifiers: Coronary Disease-Associated Artery/Lesion type: [place] artery [place] vs. transplanted heart: [place] heart Associated angina: with other forms of angina Qualified Code(s): I25.118 - Atherosclerotic heart disease of [place] coronary artery with other forms of angina pectoris (11) History of diabetic retinopathy: (12) Hyperlipidemia: Qualifiers: Hyperlipidemia type: mixed hyperlipidemia Qualified Code(s): E78.2 - Mixed hyperlipidemia (13) History of amputation of toe: (14) HTN (hypertension): Qualifiers: Hypertension type: essential hypertension Qualified Code(s): I10 - Essential (primary) hypertension (15) Peripheral arterial disease: Plan He said someone mentioned a LifeVest. He seems relatively uninterested in this. His ejection fraction has been the same since 2019. His renal function appears to be recovering. Urine output is up significantly and his creatinine has stabilized. Hopefully he will not need dialysis for the future. Attestations Medical Necessity Statement*: Hospitalist management of acute renal failure, ischemic cardiomyopathy, critical limb ischemia. and Moderate Time for a total of 30 minutes, includes reviewing past or interval history, examining/interviewing patient, updating patient/family/other support and documenting encounter Diagnoses SVT (supraventricular tachycardia) I47.1 Acute kidney injury superimposed on CKD N17.9; N18.9 Contrast-induced nephropathy N14.11; T50.8X5A CKD (chronic kidney disease) N18.9 Diabetes mellitus with peripheral vascular disease E11.51 Ischemic cardiomyopathy I25.5 Systolic heart failure I50.20 Gangrenous toe I96 Status post amputation of toe of right foot Z89.421 Atherosclerosis of coronary artery I25.118 Coronary Disease-Associated Artery/Lesion type: [place] artery [place] vs. transplanted heart: [place] heart Associated angina: with other forms of angina History of diabetic retinopathy Z86.39 Hyperlipidemia E78.2 Hyperlipidemia type: mixed hyperlipidemia History of amputation of toe Z89.429 HTN (hypertension) I10 Hypertension type: essential hypertension Peripheral arterial disease I73.9
--- NOTE | 2023-02-13 08:26 | P.PN_ITS ---
Subjective Subjective: This morning patient is resting comfortably No overnight complaints Patient is stating that he rested very well last night Currently on room air Made about 900 mL urine No active chest pain shortness of breath or abdominal pain LifeVest has been requested PICC line has been placed Creatinine improvement noted We might not need tunneled catheter Vitals/I&O/Wt Last Vital Signs Temp 97.7 F 02/13/23 07:31 Pulse 95 02/13/23 07:31 Resp 14 02/13/23 07:31 BP 115/46 02/13/23 07:31 Pulse Ox 97 02/13/23 07:31 O2 Del Method Room Air 02/13/23 07:31 O2 Flow Rate 2 02/13/23 04:00 02/12/23 02/13/23 02/13/23 22:59 06:59 14:59 Intake Total 356 / 1239 120 / 1359 Output Total 810 / 1110 Balance -454 / 129 120 / 249 Weight last 48 hrs Weight 86.183 kg Weight 96.162 kg Physical Exam 2 Narrative: Awake and alert Euvolemic No active pain S1, S2 Doing well on room air Nonfocal neuro exam Left arm PICC line Abdomen soft Data 02/13/23 04:04 02/13/23 04:04 A&P Assessment and plan (1) Contrast-induced nephropathy: (2) Pulmonary infiltrate present on computed tomography: (3) Exertional dyspnea: (4) Non-pressure chronic ulcer of other part of right foot with necrosis of bone: (5) Diabetic ulcer of right foot: (6) Ischemic cardiomyopathy: (7) Non-healing ulcer: (8) Diabetic neuropathy: (9) Gangrenous toe: (10) Peripheral arterial disease: (11) HTN (hypertension): Qualifiers: Hypertension type: essential hypertension Qualified Code(s): I10 - Essential (primary) hypertension (12) Diabetic peripheral neuropathy associated with type 2 diabetes mellitus: (13) Diabetes mellitus with chronic kidney disease: (14) History of diabetic retinopathy: Plan Diabetic foot ulcer/gangrene status post intervention MSSA and Citrobacter sensitive to cephalosporins plan is to do 6 weeks of ceftriaxone 2 g daily bone margins are positive Dr. Baird in agreement PCP follow-up for IV antibiotics Non-STEMI: Medical management as of now Ischemic cardiomyopathy: Requested LifeVest Contrast-induced nephropathy: Kidney function is improving gradually, made 900 mL today patient is not oliguric anymore we might be able to remove dialysis catheter if he keeps showing signs of improvement Insomnia: Resolved Systolic reduced EF CHF exacerbation: Improving Continue low-dose Lasix at this point Consistent carb diet DVT prophylaxis covered with heparin Magnesium supplemented PICC line placed left arm Ambien on board as well for insomnia Full code Patient will be discharged home once his dialysis catheter is removed and kidney function is improving he will get home health care, PCP will follow-up for IV antibiotic Attestations Medical Necessity Statement*: Continue medical manage Diagnoses Contrast-induced nephropathy N14.11; T50.8X5A Pulmonary infiltrate present on computed tomography R91.8 Exertional dyspnea R06.09 Non-pressure chronic ulcer of other part of right foot with necrosis of bone L97.514 Diabetic ulcer of right foot E11.621; L97.519 Ischemic cardiomyopathy I25.5 Non-healing ulcer L98.499 Diabetic neuropathy E11.40 Gangrenous toe I96 Peripheral arterial disease I73.9 HTN (hypertension) I10 Hypertension type: essential hypertension Diabetic peripheral neuropathy associated with type 2 diabetes mellitus E11.42 Diabetes mellitus with chronic kidney disease E11.22 History of diabetic retinopathy Z86.39
[2023-02-13] MEDS: pantoprazole 40 mg SDV IVP (08:55)
[2023-02-13] MEDS: cefTRIAXone 2,000 MG in sodium chloride 0.9% (plus) 50 ML 100 MG IV (08:55)
[2023-02-13] MEDS: metoprolol tartrate 25 mg Tablet PO ×2 (08:55→21:45)
--- NOTE | 2023-02-13 10:56 | PM.PN ---
Subjective Subjective: no new complaints Medications: Reviewed: Yes Vitals/I&O/Wt Last Vital Signs Temp 97.7 F 02/13/23 07:31 Pulse 95 02/13/23 07:31 Resp 14 02/13/23 07:31 BP 115/46 02/13/23 07:31 Pulse Ox 97 02/13/23 07:31 O2 Del Method Room Air 02/13/23 07:31 O2 Flow Rate 2 02/13/23 04:00 02/12/23 02/13/23 02/13/23 22:59 06:59 14:59 Intake Total 356 / 1239 120 / 1359 Output Total 810 / 1110 700 / 700 Balance -454 / 129 120 / 249 -700 / -700 Weight last 48 hrs Weight 86.183 kg Physical Exam Narrative: Patient is awake alert with no acute distress, on room air HEENT S1-S2 regular rate and rhythm per report Clear to auscultation per report Right foot dressed, has pedal edema Data 02/13/23 04:04 02/13/23 04:04 A&P Assessment and plan (1) Acute kidney injury superimposed on CKD: 1. Acute on chronic kidney disease stage III: Baseline creatinine is in the 1.7-2 range. Patient now has SALLY's-multifactorial secondary to ATN from acute infection, contrast nephropathy -Creatinine worsened with hyperkalemia and metabolic acidosis, s/p temporary HD catheter placement and initiate HD. s/p 2 sessions - Cr improving and UOP increased -No HD and pt recovering renal function 2. Hyperkalemia: Placed on low potassium diet, improved 3. History of hypertension: Blood pressure controlled 4. Metabolic acidosis: Secondary to lactic acidosis,improved 5 severe peripheral vascular disease: Status post right toe amputation, 6. History of coronary artery disease and prior stents Patient evaluated using audiovisual cart. Time spent 20 minutes. Plan per medicine Attestations Medical Necessity Statement*: per medicine Coding Level of Care Code Acute Code for [facility] Fwd Diagnoses Acute kidney injury superimposed on CKD N17.9; N18.9
[2023-02-13 11:23] LABS: Glucose Point of Care 181 mg/dL (70-110)
[2023-02-13] MEDS: insulin lispro 100 unit/1 mL SUBCUT (13:00)
[2023-02-13] MEDS: acetaminophen 325 mg Tablet 650 MG PO ×2 (14:59→21:45)
[2023-02-13 16:29] LABS: Glucose Point of Care 86 mg/dL (70-110)
--- NOTE | 2023-02-13 17:38 | PC.NURSE ---
Notified Dr Baird via cellphone provided in chart Notified him in regards to pt's right foot/toe amputation is started to get red, tender, shooting pain off and on since last night and has pus underneath the sole of his right foot. patient requested pain medicine.
[2023-02-13] MEDS: morphine IR 15 mg Tablet PO ×2 (17:57→21:58)
[2023-02-13] MEDS: magnesium oxide 400 mg tablet PO (17:59)
--- NOTE | 2023-02-13 19:57 | DCPLANNER ---
Addendum entered by Yovani Hand RN 02/13/23 20:11: pls wound assessment Original Note: Wound assessment Dressing change w/ night nurse donald to visualize wound. sutures intact, purulent yellow slough noted around the amputated toe, below the amputated, proximal volar plantar areas has gangrene, 10 cm redness and small spots of necrotic areas. 4th and 5th toes are red and swollen.
--- NOTE | 2023-02-13 20:09 | XRR_ITS ---
PROCEDURE INFORMATION: Exam: XR Right Foot Exam date and time: 02/13/2023 8:19 PM Age: 72 years old Clinical indication: Pain; Foot; Right; Prior surgery; Surgery date: 1-6 months; Surgery type: Toe amputations; Additional info: Pain and redness TECHNIQUE: Imaging protocol: Radiologic exam of the right foot. Views: 3 or more views. COMPARISON: CR XR foot RT min 3V* [id number] 02/05/2023 11:47 AM FINDINGS: Bones/joints: Interval amputation of the 3rd toe. Previous amputation the 1st toe across the base of the proximal phalanx, and amputation of the 2nd toe again noted. Hyperlucent 2nd metatarsal head is concerning for infection. Soft tissues: Gas is present in the soft tissues lateral to the 1st proximal phalanx base extending to the level of the 3rd metatarsal head. No radiopaque foreign body. XR/XR foot RT min 3V* [id number] IMPRESSION: 1. Interval amputation of the 3rd toe. 2. There appears to be acute bony destructive change of the 2nd metatarsal head. 3. Multifocal soft tissue gas has developed extending from the lateral aspect of the 1st proximal phalanx to the region overlying the 3rd metatarsal head. This could be surgical change, but infection is not excluded.
--- NOTE | 2023-02-13 20:14 | PC.NURSE ---
Wound assessment Dressing change w/ night nurse donald to visualize wound. sutures intact, purulent yellow slough noted around the amputated toe, below the amputated, proximal volar plantar areas has gangrene, 10 cm redness and small spots of necrotic areas. 4th and 5th toes are red and swollen.
[2023-02-13 21:07] LABS: Glucose Point of Care 123 mg/dL (70-110)
[2023-02-13] MEDS: aspirin 81 mg EC Tablet PO (21:45)
[2023-02-13] MEDS: TRAMadol 50 mg Tablet PO (21:58)
[2023-02-14] VITALS (13 sets, daily range): BP systolic 114–139; BP diastolic 59–74; PULSE 80–120; RESP 14–26; TEMP 36.1–37.3; O2SAT 93–99
[2023-02-14 05:08] LABS: Basophils # 0.1 10^3/uL (0.0-0.1); Basophils % 0.5 %; Eosinophils # 0.3 10^3/uL (0.0-0.8); Eosinophils % 1.7 %; Hematocrit 35.2 % (42.0-52.0); Hemoglobin 10.7 g/dL (11.7-16.6); Lymphocytes # 5.4 10^3/uL (0.8-4.8); Lymphocytes % 31.5 %; Mean Corpuscular HGB Conc 30.4 g/dL (30.0-36.0); Mean Corpuscular Hemoglobin 27.9 pg (28.0-34.0); Mean Corpuscular Volume 91.7 fl (80-94); Monocytes # 1.1 10^3/uL (0.2-0.9); Monocytes % 6.5 %; Neutrophils # 10.23 10^3/uL (1.8-7.7); Neutrophils % 59.3 %; Nucleated Red Blood Cells % 0 %; Platelet Count 475 10^3/cmm (130-400); Red Blood Count 3.84 10^6/uL (4.1-5.3); Red Cell Distribution Width 14.4 % (12.1-15.1); White Blood Count 17.2 10^3/uL (4.0-10.0)
[2023-02-14 05:27] LABS: Anion Gap 14.8 (5-19); Blood Urea Nitrogen 33 mg/dL (8-23); Calcium 8.1 mg/dL (8.5-10.5); Carbon Dioxide 29 mmol/L (22-29); Chloride 103 mmol/L (98-107); Creatinine Clr Calc Pharmacy 24.9808; Glucose 46 mg/dL (65-115); Osmolality Calculated 298 mOsm/kg (285-295); Potassium 4.8 mmol/L (3.5-5.1); Sodium 142 mmol/L (136-145)
[2023-02-14] MEDS: FUROsemide 40 mg Tablet PO (05:31)
[2023-02-14] MEDS: thyroid 60 mg Tablet PO (05:31)
[2023-02-14] MEDS: heparin 5,000 unit/mL INJ 1 mL 5000 UNIT SUBCUT ×2 (05:32→17:25)
[2023-02-14 05:46] LABS: Slide Review Slide Review Perform
--- NOTE | 2023-02-14 06:07 | PM.PN ---
Subjective Subjective: Patient seen bedside. Experiencing increased pain to the right foot. Complains of increased redness of the right foot. Vitals/I&O/Wt Last Vital Signs Temp 97.0 F L 02/14/23 04:00 Pulse 81 02/14/23 04:00 Resp 22 H 02/14/23 04:00 BP 139/71 02/14/23 04:00 Pulse Ox 99 02/14/23 04:00 O2 Del Method Oxymask 02/14/23 04:00 O2 Flow Rate 2 02/14/23 04:00 02/13/23 02/13/23 02/14/23 14:59 22:59 06:59 Intake Total 170 / 170 480 / 650 Output Total 700 / 700 600 / 1300 220 / 1520 Balance -530 / -530 -600 / -1130 260 / -870 Physical Exam Narrative: GENERAL: Patient is alert and oriented ?3 and in no acute distress. The following is a focused right lower extremity exam. Accompanied by his . VASCULAR: Dorsalis pedis diminished. Right posterior tibial artery diminished. Delayed capillary refill at right fourth and fifth toes. Rubor to bilateral lower extremity, dependent. NEUROLOGICAL: Protective sensation intact 0/10 sites, tested with [place] Jennifer monofilament to bilateral feet. DERMATOLOGICAL: Full-thickness dehiscence at the amputation site of the right third toe. Skin margins at dehiscence site ischemic appearing, erythema streaking proximally at the right plantar foot to the level of the instep. MUSCULOSKELETAL: Status post amputation of right great toe and second toe. Status post right third toe amputation. No pain to palpation of right foot secondary to neuropathy. Tenderness to palpation at the right plantar foot. Data 02/14/23 04:34 02/14/23 04:34 A&P Assessment and plan (1) Diabetes mellitus with peripheral vascular disease: (2) Gangrenous toe: (3) Status post amputation of toe of right foot: (4) Peripheral arterial disease: Plan 72-year-old male with diabetes and peripheral arterial disease presents with gangrenous right third toe. Surgical site dehiscence with ischemic appearing incision and erythema streaking at the plantar right foot with increased pain. Repeat x-ray right foot negative for soft tissue emphysema, no obvious bony erosions or lysis. Packed with iodoform May heel touch for transfers of the right lower extremity with postop shoe. Discussed indications for transmetatarsal amputation versus bone amputation. Patient will contemplate this. He is opposed amputation at this time. States that he may be willing to proceed with a transmetatarsal amputation. I am guarded as to his ability to heal this level amputation due to arterial insufficiency. We will collaborate with hospitalist on potentially empiric IV antibiotics being reinitiated, will continue to discuss amputation options with the patient tomorrow. Attestations Medical Necessity Statement*: Gangrene right foot Coding Level of Care Code Acute Code for [facility] Fw Diagnoses Diabetes mellitus with peripheral vascular disease E11.51 Gangrenous toe I96 Status post amputation of toe of right foot Z89.421 Peripheral arterial disease I73.9
[2023-02-14 06:20] LABS: Glucose Point of Care 83 mg/dL (70-110)
--- NOTE | 2023-02-14 08:19 | PM.PN ---
Subjective Subjective: Usman has had a significant amount of pain in the right foot overnight. He also complains of redness in the foot itself especially near the surgical site. He is tachycardic this morning with a heart rate of about 120. The rhythm is sinus. His white blood cell count is elevated today 17.2. He produced 1520 mL of urine yesterday. He has not required dialysis in 2 or 3 days. Hemoglobin hematocrit are stable. His creatinine is down to 3.1 with a BUN of 33. Vitals/I&O/Wt Last Vital Signs Temp 97.8 F 02/14/23 07:28 Pulse 119 H 02/14/23 07:28 Resp 17 02/14/23 07:28 BP 114/74 02/14/23 07:28 Pulse Ox 97 02/14/23 07:28 O2 Del Method Room Air 02/14/23 07:28 O2 Flow Rate 2 02/14/23 04:00 02/13/23 02/14/23 02/14/23 22:59 06:59 14:59 Intake Total 480 / 650 Output Total 600 / 1300 220 / 1520 Balance -600 / -1130 260 / -870 Weight last 48 hrs Weight 211 lb 8 oz Physical Exam Narrative: GENERAL: In general he is comfortable. Tachycardic HEENT: Exam within normal limits. NECK: Supple without jugular vein distention. The carotid upstroke is normal without bruits. BACK: Exam normal. LUNGS: Clear. HEART: Regular rate and rhythm. ABDOMEN: Benign without organomegaly or tenderness. EXTREMITIES: No edema. NEUROLOGIC: Exam normal. SKIN: Unremarkable. Data 02/14/23 04:34 02/14/23 04:34 A&P Assessment and plan (1) SVT (supraventricular tachycardia): (2) Acute kidney injury superimposed on CKD: (3) Contrast-induced nephropathy: (4) Diabetes mellitus with peripheral vascular disease: (5) Ischemic cardiomyopathy: (6) Systolic heart failure: (7) Gangrenous toe: (8) Status post amputation of toe of right foot: (9) Atherosclerosis of coronary artery: Qualifiers: Coronary Disease-Associated Artery/Lesion type: [place] artery [place] vs. transplanted heart: [place] heart Associated angina: with other forms of angina Qualified Code(s): I25.118 - Atherosclerotic heart disease of [place] coronary artery with other forms of angina pectoris (10) Diabetes mellitus with chronic kidney disease: (11) Hyperlipidemia: Qualifiers: Hyperlipidemia type: mixed hyperlipidemia Qualified Code(s): E78.2 - Mixed hyperlipidemia (12) HTN (hypertension): Qualifiers: Hypertension type: essential hypertension Qualified Code(s): I10 - Essential (primary) hypertension (13) Peripheral arterial disease: Plan I fear the infection is worsening. His white blood cell count is up and he is tachycardic. He has pain redness in the area. I think he will ultimately need further tissue removal. He is blood supply to that area is extremely poor and I do not think he will heal this without further tissue removal. He no longer needs dialysis at this time but I would not remove the catheter until we are sure he is through this acute episode. Attestations Medical Necessity Statement*: Continued hospitalization for management of infected foot, critical limb ischemia, contrast-induced nephropathy. and Moderate Time for a total of 30 minutes, includes reviewing past or interval history, examining/interviewing patient, counseling patient/family/other support, updating patient/family/other support and documenting encounter Diagnoses SVT (supraventricular tachycardia) I47.1 Acute kidney injury superimposed on CKD N17.9; N18.9 Contrast-induced nephropathy N14.11; T50.8X5A Diabetes mellitus with peripheral vascular disease E11.51 Ischemic cardiomyopathy I25.5 Systolic heart failure I50.20 Gangrenous toe I96 Status post amputation of toe of right foot Z89.421 Atherosclerosis of coronary artery I25.118 Coronary Disease-Associated Artery/Lesion type: [place] artery [place] vs. transplanted heart: [place] heart Associated angina: with other forms of angina Diabetes mellitus with chronic kidney disease E11.22 Hyperlipidemia E78.2 Hyperlipidemia type: mixed hyperlipidemia HTN (hypertension) I10 Hypertension type: essential hypertension Peripheral arterial disease I73.9
[2023-02-14] MEDS: cefTRIAXone 2,000 MG in sodium chloride 0.9% (plus) 50 ML 100 MG IV (08:34)
[2023-02-14] MEDS: pantoprazole 40 mg SDV IVP (08:35)
[2023-02-14] MEDS: metoprolol tartrate 25 mg Tablet PO ×2 (08:35→17:25)
--- NOTE | 2023-02-14 09:29 | PM.PN ---
Subjective Subjective: White count worsening No fever Redness of right foot around surgical site Dr. Baird discussed amputation with the patient, he would contemplate once is at the bedside, As per nephrology will need dialysis anymore patient has improved significantly making adequate urine, creatinine improving, we can remove dialysis catheter There is still a plan in place to give him ceftriaxone for at least 6 weeks for positive bone margins for MSSA and Citrobacter with ceftriaxone 2 g daily however this plan might change if patient opts for amputation Vitals/I&O/Wt Last Vital Signs Temp 97.8 F 02/14/23 07:28 Pulse 119 H 02/14/23 07:28 Resp 17 02/14/23 07:28 BP 114/74 02/14/23 07:28 Pulse Ox 97 02/14/23 07:28 O2 Del Method Room Air 02/14/23 07:28 O2 Flow Rate 2 02/14/23 04:00 02/13/23 02/14/23 02/14/23 22:59 06:59 14:59 Intake Total 480 / 650 650 / 650 Output Total 600 / 1300 220 / 1520 Balance -600 / -1130 260 / -870 650 / 650 Weight last 48 hrs Weight 95.935 kg Physical Exam Narrative: Laying supine No active pain Looks euvolemic Sinus tachycardia heart rate 120 No active worsening of pain Abdomen soft Awake and alert Short attention span Pleasant and cooperative Right foot surgical site dehiscence with redness Data 02/14/23 04:34 02/14/23 04:34 A&P Assessment and plan (1) Contrast-induced nephropathy: (2) Acute kidney injury superimposed on CKD: (3) Pulmonary infiltrate present on computed tomography: (4) Exertional dyspnea: (5) Diabetes mellitus with peripheral vascular disease: (6) Diabetic ulcer of right foot: (7) Dehiscence of wound: (8) Ischemic cardiomyopathy: (9) Non-healing ulcer: (10) Gangrenous toe: (11) History of diabetic retinopathy: (12) Peripheral neuropathy: (13) Diabetic peripheral neuropathy associated with type 2 diabetes mellitus: (14) Peripheral arterial disease: Plan Gangrene right foot Status post primary delayed closure Bone margins are positive, culture showed Citrobacter and MSSA there was plan to discharge him on 6 weeks of IV antibiotics via PICC line and PCP to follow-up outpatient However White count worsened 02/14 Amputation discussed with the patient who will contemplate about it and let us know, Dr. Baird has seen him today there is some surgical site dehiscence, afebrile patient is tachycardic Continue ceftriaxone for now in case of further worsening of white count I will opt for broad-spectrum antibiotics 1 more time Contrast-induced nephropathy Kidney function improved Nephrology recommended removal of dialysis catheter Adequate urine output Creatinine improving Insomnia: Resolved Constipation: Resolved Non-STEMI: Ischemic cardiomyopathy EF has not changed since 2019, family is not interested in LifeVest at this point Cardiac consistent carb diet Insulin and sliding scale Peripheral arterial disease continue aspirin Sinus tachycardia I will give him a small bolus of 250 to see if his heart rate would improve We will request D-dimer as well Communicated with commercial construction estimator, will touch base with Dr. Baird Attestations Medical Necessity Statement*: Continue medical management Diagnoses Contrast-induced nephropathy N14.11; T50.8X5A Acute kidney injury superimposed on CKD N17.9; N18.9 Pulmonary infiltrate present on computed tomography R91.8 Exertional dyspnea R06.09 Diabetes mellitus with peripheral vascular disease E11.51 Diabetic ulcer of right foot E11.621; L97.519 Dehiscence of wound T81.30XA Ischemic cardiomyopathy I25.5 Non-healing ulcer L98.499 Gangrenous toe I96 History of diabetic retinopathy Z86.39 Peripheral neuropathy G62.9 Diabetic peripheral neuropathy associated with type 2 diabetes mellitus E11.42 Peripheral arterial disease I73.9
[2023-02-14 09:48] LABS: D Dimer 1.45 ug/mIFEU (0-0.59)
--- NOTE | 2023-02-14 09:52 | PC.SOCIAL ---
IMM IMM updated with patient and at bedside. Verbalized an understanding. Copy Pg 2 provided. Initialled, dated, timed, and placed in chart.
[2023-02-14 09:58] LABS: Hematocrit 35.3 % (42.0-52.0); Hemoglobin 10.7 g/dL (11.7-16.6); Mean Corpuscular HGB Conc 30.3 g/dL (30.0-36.0); Mean Corpuscular Hemoglobin 27.8 pg (28.0-34.0); Mean Corpuscular Volume 91.7 fl (80-94); Mean Platelet Volume 8.9 fL (7.4-10.4); Platelet Count 471 10^3/cmm (130-400); Red Blood Count 3.85 10^6/uL (4.1-5.3); Red Cell Distribution Width 14.6 % (12.1-15.1); White Blood Count 14.4 10^3/uL (4.0-10.0)
[2023-02-14] MEDS: sodium chloride 0.9% 250 ML IV (10:02)
[2023-02-14 10:21] LABS: Slide Review Slide Review Perform
[2023-02-14 10:22] LABS: Absolute Eosinophils 0.1 10^3/cmm (0.0-0.7); Absolute Neutrophil 8.5 10^3/cmm (1.4-6.5); Absolute Segmented Neutrophil 8.4 10/cmm (1.6-7.1); Band Neutrophils Absolute 0.1 10^3/cmm (0.0-1.2); Eosinophils 1 %; Lymphocytes 19 %; Lymphocytes Absolute 5.3 10^3/cmm (1.2-3.4); Monocytes Absolute 0.4 10^3/cmm (0.1-0.6); Platelet Estimate Increased (Normal); Segmented Neutrophils 58 %; Total Cells Counted 100 (0-100)
[2023-02-14] MEDS: morphine IR 15 mg Tablet PO ×3 (10:26→22:02)
[2023-02-14 11:33] LABS: Glucose Point of Care 147 mg/dL (70-110)
[2023-02-14] MEDS: insulin lispro 100 unit/1 mL SUBCUT ×3 (12:18→20:14)
--- NOTE | 2023-02-14 12:50 | PM.PN ---
Subjective Subjective: no new complaints feels better Medications: Reviewed: Yes Vitals/I&O/Wt Last Vital Signs Temp 97.8 F 02/14/23 07:28 Pulse 119 H 02/14/23 07:28 Resp 26 H 02/14/23 10:26 BP 114/74 02/14/23 07:28 Pulse Ox 97 02/14/23 10:26 O2 Del Method Room Air 02/14/23 07:28 O2 Flow Rate 2 02/14/23 04:00 02/13/23 02/14/23 02/14/23 22:59 06:59 14:59 Intake Total 480 / 650 900 / 900 Output Total 600 / 1300 220 / 1520 750 / 750 Balance -600 / -1130 260 / -870 150 / 150 Weight last 48 hrs Weight 95.935 kg Physical Exam Narrative: Patient is awake alert with no acute distress, on room air HEENT S1-S2 regular rate and rhythm per report Clear to auscultation per report Right foot dressed, has pedal edema Data 02/14/23 09:36 02/14/23 04:34 A&P Assessment and plan (1) Acute kidney injury superimposed on CKD: 1. Acute on chronic kidney disease stage III: Baseline creatinine is in the 1.7-2 range. Patient now has SALLY's-multifactorial secondary to ATN from acute infection, contrast nephropathy -Creatinine worsened with hyperkalemia and metabolic acidosis, s/p temporary HD catheter placement and initiate HD. s/p 2 sessions - Cr improving and UOP increased , Cr 3.1 today -No HD and pt recovering renal function - can DC temp hD catheter - Pt to follow up with ( Nephrology ) 2 weeks post discharge . 2. Hyperkalemia: Placed on low potassium diet, improved 3. History of hypertension: Blood pressure controlled 4. Metabolic acidosis: Secondary to lactic acidosis,improved 5 severe peripheral vascular disease: Status post right toe amputation, 6. History of coronary artery disease and prior stents Patient evaluated using audiovisual cart. Time spent 20 minutes. Plan per medicine Attestations Medical Necessity Statement*: per medicine Coding Level of Care Code Acute Code for Chg Fwd Diagnoses Acute kidney injury superimposed on CKD N17.9; N18.9
--- NOTE | 2023-02-14 15:11 | PC.NURSE ---
Dressing change of the right 2nd toe, Dr. Baird came in and removed dressing and assessed the surgical site. Scant purulent yellow slough is noted around amputated toe. 10cm of redness and small spots of necrotic areas are observed. The right 4th and 5th toes are red, swollen, and warm to the touch.
[2023-02-14] MEDS: magnesium oxide 400 mg tablet PO (17:24)
[2023-02-14 17:38] LABS: Glucose Point of Care 151 mg/dL (70-110)
[2023-02-14 20:02] LABS: Glucose Point of Care 177 mg/dL (70-110)
[2023-02-14] MEDS: acetaminophen 325 mg Tablet 650 MG PO (20:11)
[2023-02-14] MEDS: aspirin 81 mg EC Tablet PO (20:12)
[2023-02-14] MEDS: TRAMadol 50 mg Tablet PO (20:13)
--- NOTE | 2023-02-14 20:46 | PC.NURSE ---
clarified NPO order with Dr Baird, received verbal order to continue PO meds scheduled for 0600
--- NOTE | 2023-02-14 22:31 | PC.NURSE ---
Left lateral posterior side larger than right side. Patient states no pain or tenderness. No redness noted. Area marked to monitor.
[2023-02-14 22:35] LABS: Urine Appearance Hazy (CLEAR); Urine Color Yellow (Yellow)
[2023-02-14 22:36] LABS: Add Urine Microscopic? YES; Bilirubin Urine Neg (Negative); Blood Urine 2+ (Negative); Glucose Urine UA Norm (Normal); Ketones Urine Negative (Negative); Leukocyte Esterase Urine Trace (Negative); Nitrate Urine Negative (Negative); Protein Urine 2+ (Negative); Urobilinogen Urine Norm (Negative); pH Urine 5 (5-7)
[2023-02-14 22:39] LABS: Bacteria Urine 1+ /hpf; Squamous Epithelial Cell Urine 0-4 /hpf (0-5)
[2023-02-14 22:40] LABS: Add Urine Culture? Yes
[2023-02-15] VITALS (16 sets, daily range): BP systolic 115–136; BP diastolic 58–82; PULSE 85–130; RESP 12–26; TEMP 36.7–37.2; O2SAT 91–97
[2023-02-15] MEDS: HYDROmorphone 1 mg/mL INJ 1 mL IVP (00:19)
--- NOTE | 2023-02-15 01:28 | PC.NURSE ---
Helped patient to the bsc, patient was diaphoretic with very damp gown and linens. Changed linens and gown and adjusted temp in room. Patient now resting comfortable.
[2023-02-15 02:43] LABS: Basophils # 0.1 10^3/uL (0.0-0.1); Basophils % 0.5 %; Eosinophils # 0.2 10^3/uL (0.0-0.8); Eosinophils % 1.6 %; Hemoglobin 10.2 g/dL (11.7-16.6); Lymphocytes # 3.3 10^3/uL (0.8-4.8); Lymphocytes % 21.5 %; Mean Corpuscular HGB Conc 30.9 g/dL (30.0-36.0); Mean Corpuscular Hemoglobin 28.4 pg (28.0-34.0); Mean Corpuscular Volume 91.9 fl (80-94); Mean Platelet Volume 8.9 fL (7.4-10.4); Monocytes % 6.7 %; Neutrophils # 10.71 10^3/uL (1.8-7.7); Neutrophils % 69.3 %; Nucleated Red Blood Cells % 0 %; Platelet Count 452 10^3/cmm (130-400); Red Blood Count 3.59 10^6/uL (4.1-5.3); Red Cell Distribution Width 14.5 % (12.1-15.1); White Blood Count 15.5 10^3/uL (4.0-10.0)
[2023-02-15 02:56] LABS: Anion Gap 11.9 (5-19); Blood Urea Nitrogen 30 mg/dL (8-23); Calcium 7.8 mg/dL (8.5-10.5); Carbon Dioxide 29 mmol/L (22-29); Chloride 102 mmol/L (98-107); Glomerular Filtration Rate 28.3 mL/min (90-130); Glucose 109 mg/dL (65-115); Osmolality Calculated 293 mOsm/kg (285-295); Potassium 4.9 mmol/L (3.5-5.1); Sodium 138 mmol/L (136-145)
[2023-02-15] MEDS: FUROsemide 40 mg Tablet PO (05:30)
[2023-02-15] MEDS: thyroid 60 mg Tablet PO (05:30)
--- NOTE | 2023-02-15 06:36 | PC.NURSE ---
Reviewed charting and agree with documentation by nurse resident
[2023-02-15 06:58] LABS: Glucose Point of Care 138 mg/dL (70-110)
--- NOTE | 2023-02-15 07:15 | W.PM.OPSUD ---
Surgery/Procedure H&P Update DATE OF PROCEDURE: February 15, 2023 DATE H&P PERFORMED: 02/14/23 CHANGES TO PREVIOUS DOCUMENTATION: None PREOP DIAGNOSIS: renal failure PLANNED PROCEDURE: Operation Date: 02/06/23 07:00 Proposed Procedures p Right third toe amputation(Right) - Walter Baird DPM Operation Date: 02/06/23 08:30 Proposed Procedures p Peripheral Diagnostic(Right) - Domenico Munguia MD Operation Date: 02/08/23 14:50 Proposed Procedures p Dialysis Catheter Insertion(Not Applicable) - Bennie Shafer MD Operation Date: 02/09/23 08:10 Proposed Procedures p Delayed Wound Closure RIGHT FOOT(Right) - Walter Baird DPM Operation Date: 02/15/23 08:20 Proposed Procedures p Amputation Transmetatarsal(Right) - Walter Baird DPM
[2023-02-15] MEDS: sodium chloride 0.9% 1,000 ML 30 ML IV (07:30)
--- NOTE | 2023-02-15 07:32 | P.ANESUD_ITS ---
Pre-Anesthetic Update Pre-Anesthetic Assessment: Date of Surgery/Procedure: 02/15/23 Preop Jeannine gnosis: renal failure Proposed Procedure: Operation Date: 02/06/23 07:00 Proposed Procedures p Right third toe amputation(Right) - Walter Baird DPM Operation Date: 02/06/23 08:30 Proposed Procedures p Peripheral Diagnostic(Right) - Domenico Munguia MD Operation Date: 02/08/23 14:50 Proposed Procedures p Dialysis Catheter Insertion(Not Applicable) - Bennie Shafer MD Operation Date: 02/09/23 08:10 Proposed Procedures p Delayed Wound Closure RIGHT FOOT(Right) - Walter Baird DPM Operation Date: 02/15/23 08:20 Proposed Procedures p Amputation Transmetatarsal(Right) - Walter Baird DPM Any changes to Pre-Anesthetic Assessment?: Yes Changes from Pre-Anesthetic Assessment: Kidney function improving Last Intake: Intake Last Liquid Date 02/14/23 Last Liquid Time 23:59 Last Solid Date 02/14/23 Last Solid Time 17:30 Labs Last 48hrs: Short CBC 02/14/23 02/14/23 02/15/23 Range/Units 04:34 09:36 02:28 WBC 17.2 H 14.4 H 15.5 H (4.0-10.0) 10^3/ uL Hgb 10.7 L 10.7 L 10.2 L (11.7-16.6) g/dL Hct 35.2 L 35.3 L 33.0 L (42.0-52.0) % MCV 91.7 91.7 91.9 (80-94) fl Plt Count 475 H 471 H 452 H (130-400) 10^3/c mm Neut % (Auto) 59.3 69.3 % Neut # (Auto) 10.23 H 10.71 H (1.8-7.7) 10^3/u L BMP 02/14/23 02/15/23 04:34 02:28 Sodium 142 138 Potassium 4.8 4.9 Chloride 103 102 Carbon Dioxide 29 29 BUN 33 H 30 H Creatinine 3.1 H 2.3 H Glucose 46 L 109 Calcium 8.1 L 7.8 L Urine 02/14/23 Range/Units 22:20 Urine Color Yellow (Yellow) Urine Appearance Hazy A (CLEAR) Urine pH 5 (5-7) Ur Specific Gravit y 1.020 (1.005-1.030) Urine Protein 2+ H (Negative) Urine Glucose (UA) Norm (Normal) Urine Ketones Negative (Negative) Urine Nitrate Negative (Negative) Urine Bilirubin Neg (Negative) Ur Leukocyte Kassandra ase Trace H (Negative) Urine RBC 10-15 H (0-2) /hpf Urine WBC 10-15 H (0-5) /hpf Coags 02/14/23 04:34 D-Dimer 1.45 H Vitals: Temperature 99.0 F 02/15/23 07:17 Temperature Source Temporal Artery S can 02/15/23 07:17 Pulse Rate 89 02/15/23 07:17 Pulse Rhythm Regular 02/14/23 23:53 Pulse Strength 3+ Normal 02/14/23 23:53 Respiratory Rate 17 02/15/23 07:17 Respiratory Effort Spontaneous, Non- Labored 02/15/23 00:19 Respiratory Depth Normal 02/15/23 00:19 Respiratory Patter n Normal 02/15/23 00:19 Blood Pressure 135/65 02/15/23 07:17 Blood Pressure Amanda n 88 02/15/23 07:17 Blood Pressure Pos ition Semi Fowlers 02/15/23 04:00 Pulse Oximetry 94 02/15/23 07:17 Oxygen Delivery Me thod Room Air 02/15/23 07:17 Oxygen Flow Rate 1.5 02/15/23 04:00 Exam: Pre-Anes Outpt Exam: alert, oriented x 3, clear to auscultation bilaterally and regular rate & rhythm Cardiac Studies: Echocardiogram 02/05/23 Echocardiogram Ultrasound 12/20/20 Sestamibi Stress Test (Cardiology) 07/06
[2023-02-15] MEDS: vancomycin 1,000 MG SDV 1000 MG XX (08:04)
[2023-02-15] MEDS: lidocaine 2% INJ 20 mL INJECTION (08:05)
[2023-02-15 08:58] LABS: Glucose Point of Care 130 mg/dL (70-110)
[2023-02-15 08:58] LABS: Glucose Point of Care 157 mg/dL (70-110)
--- NOTE | 2023-02-15 09:12 | PM.OP ---
Operative Report Date of procedure: February 15, 2023 Pre-op diagnosis: Gangrene right foot Post-op diagnosis: Gangrene foot Procedure done: Right transmetatarsal amputation. CPT code 57703 Implants: 2-0 Vicryl, 3-0 nylon Specimens removed/disposition: No cultures, patient has been on empiric antibiotics as well as narrowed antibiotics, previous cultures were taken during his hospitalization. Cultures at today's surgery would result in suppression of growth. Pathology: Right forefoot sent to pathology for permanent included distal metatarsals 1 through 5 and toes 4 and 5 Surgeon: Walter Baird D.P.M. Deportation Officer: Kaylen Estimated blood loss: 15 17 IV fluids: 0 Urine output: 0 Complications: None Brief History: Patient has peripheral arterial disease, had a wound with gangrene to the right third toe. Status post right third toe amputation as well as delayed closure to the right foot, on admission had empiric IV antibiotics which were narrowed once surgical cultures yielded further information. History of 3 revascularizations of the lower extremities. Attempted revascularization during this hospitalization was unsuccessful to the lower extremity. Has significant peripheral arterial disease and diabetes with neuropathy. Continued to have gangrenous changes to the right forefoot necessitating a higher level of amputation. Patient not on board with a below-knee amputation, requesting a transmetatarsal potation with the understanding that there are no guarantees that this will go on to heal. I reviewed at length with the patient, the risks, potential complications, benefits, alternatives, expectations, and typical outcomes associated with the surgery. The risks and potential complications were explained in detail, including but not limited to infection, wound dehiscence or soft tissue complications, bleeding and hematoma, chronic edema, neuritis or nerve damage producing numbness or chronic pain, CRPS, failure to relieve pain or worsening pain, thick / painful / unsightly scar, limited motion / stiffness, malposition, delayed union, malunion, or nonunion, fracture, reaction to implants, anesthetic complications, venous thromboembolism, and deformity recurrence. I discussed the notion of no regrets with the patient as it pertains to complications and outcomes. The patient seemed to understand the nature of the proposed care and required convalescence. They asked appropriate questions, answered to their satisfaction. They are aware no guarantees can be made as to a satisfactory outcome and they understand there may be other possible unforeseen complications or outcomes not listed here that will be treated accordingly if they arise. There were no written or implied guarantees given to the patient. They gave informed consent to proceed. Procedure: Under mild sedation the patient was brought to the operating room and remained on the hospital bed in supine position. A timeout was performed. Anesthesia was then administered by the anesthesia service. Local anesthesia was injected by myself consisting of 30 cc of one-to-one mixture 1% lidocaine and 0.5% Marcaine plain in a right ankle block fashion. Well-padded pneumatic tourniquet was applied to the right ankle. The right lower extremity was scrubbed, prepped and draped utilizing normal aseptic technique. A longitudinal incision was made over the dorsum of the right foot, extending from the base of the great toe to the midfoot. Dissection was carried down to the underlying subcutaneous tissue. The underlying soft tissues were found to be extensively necrotic and infected. Copious irrigation with a sterile saline solution was performed to remove debris and reduce bacterial load. The necrotic tissues were sharply debrided, and any pockets of pus were drained this was noted plantarly in the fat pad at the ball of the foot.. Hemostasis was achieved using bipolar electrocautery as needed. The metatarsals were identified and carefully dissected from the surrounding soft tissues. A decision was made to perform a transmetatarsal amputation due to the extent of the infection and tissue loss. The second, third, and fourth metatarsals were transected at their bases using an oscillating saw, ensuring adequate margins for healing. The proximal and distal ends of the metatarsals were smoothed and beveled to minimize any potential sharp edges. Attention was given to preserving the neurovascular structures during the procedure. The wound bed was thoroughly irrigated once again to remove any residual debris. Closure was achieved in layers. The deep fascia was reapproximated using interrupted absorbable sutures. Subcutaneous tissues were closed using absorbable sutures, and the skin was closed with interrupted non-absorbable sutures. Sterile dressings were applied, and the foot was immobilized with a bulky dressing. Postoperative Care: The patient was transferred to the post-anesthesia care unit in stable condition. Regular monitoring of vital signs and close evaluation of the surgical site were performed. The patient was advised to keep the right foot elevated to minimize swelling and promote healing. Nonweightbearing status to the right lower extremity at this time to prevent further soft tissue injury and to reduce risk of amputation site dehiscing. Discussion: The right transmetatarsal amputation was performed successfully to address the severe infection and tissue necrosis involving the metatarsal region. The patient will be closely monitored during the postoperative period to ensure adequate wound healing and prevent any potential complications. Rehabilitation and prosthetic options will be considered to optimize functional outcomes for the patient.
--- NOTE | 2023-02-15 10:00 | ANE.PACU2 ---
Inpatient post-anesthesia follow up: Airway intact: Yes Vital signs: Temperature 98.0 F Pulse Rate 89 Respiratory Rate 25 Blood Pressure [Le ft Arm] 150/80 Blood Pressure 115/60 Pulse Oximetry 95 Oxygen Delivery Me thod [ Room Air Current Rate & Del hilda] Oxygen Delivery Me thod Room Air Oxygen Flow Rate 1.5 Fraction of Inspir ed Oxygen Hydration adequate: Yes Nausea and vomiting: Yes Pain level: 1 Mental status: Baseline
[2023-02-15] MEDS: fluconazole 100 mg Tablet 150 MG PO (10:05)
--- NOTE | 2023-02-15 10:35 | P.PN_ITS ---
Subjective Subjective: Cardiology coverage This patient admitted with gangrene of the right toes, diabetic ulcer, periph eral artery disease, atherosclerotic heart disease, chronic kidney disease and multiple other medical problems. Patient underwent a transmetatarsal amputation of the right foot this morning because of a nonhealing ulcer and the ongoing infection. Patient currently seems to be stable. He has no chest pain. No recurrence of SVT. He is on continuous telemetry. Denies any palpitations I may see the patient as and when it is needed. Or any unusual shortness of breath. Medications: Medication Review Details: Current Medications Acetaminophen (Acetaminophen 325 Mg Tablet) 650 mg PO Q6H PRN PRN Reason: Mild/Mod Pain Or Temp >/= 101 Last Admin: 02/14/23 20:11 Dose: 650 mg Albuterol Sulfate (Albuterol 2.5 Mg/3 Ml Neb) 2.5 mg INHALATION ONCE PRN PRN Reason: WHEEZING Aspirin (Aspirin 81 Mg Ec Tablet) 81 mg PO BEDTIME [facility] Last Admin: 02/14/23 20:12 Dose: 81 mg Dextrose (Dextrose 50% Syringe 50 Ml) 50 ml IVP PRN PRN; Protocol PRN Reason: hypoglycemia protocol Dextrose (Dextrose 50% Syringe 50 Ml) 25 ml IVP ONCE PRN; Protocol PRN Reason: hypoglycemia protocol Furosemide (Furosemide 40 Mg Tablet) 40 mg PO QAM [facility] Last Admin: 02/15/23 05:30 Dose: 40 mg Glucagon (Glucagon 1 Mg/Ml Inj 1 Ml) 1 mg IM ONCE PRN; Protocol PRN Reason: Adult Acute Hypoglycemia Prot. Heparin Sodium (Porcine) (Heparin 5,000 Unit/Ml Inj 1 Ml) 5,000 unit SUBCUT Q12H [facility] Last Admin: 02/15/23 05:44 Dose: Not Given Aztreonam 1,000 mg/ Sodium (Chloride) 50 mls @ 100 mls/hr IV Q12H [facility]; Protocol Last Infusion: 02/11/23 05:57 Dose: Infused Dextrose (D5w) 500 mls @ 100 mls/hr IV ONCE PRN; Protocol PRN Reason: Adult Acute Hypoglycemia Prot Last Infusion: 02/09/23 08:00 Dose: 0 mls/hr Sodium Chloride (Sodium Chloride 0.9%) 1,000 mls @ 0 mls/hr IV .Q0M PRN PRN Reason: hypotension or symptomatic Albumin Human (Albumin) 12.5 gm in 50 mls @ 60 mls/hr IV PRN PRN PRN Reason: Hypotension and/or symptomatic Sodium Chloride (Sodium Chloride 0.9%) 1,000 mls @ 0 mls/hr IV .Q0M PRN PRN Reason: hypotension or symptomatic Linezolid (Zyvox Premix) 600 mg in 300 mls @ 300 mls/hr IV Q12H [facility]; Protocol Last Infusion: 02/11/23 02:57 Dose: Infused Ceftriaxone Sodium 2,000 mg/ (Sodium Chloride) 50 mls @ 100 mls/hr IV Q24H [facility]; Protocol Last Infusion: 02/14/23 09:23 Dose: Infused Insulin Glargine (Insulin Glargine 100 Units/1 Ml) 36 unit SUBCUT QAM [facility] Last Admin: 02/15/23 05:45 Dose: Not Given Insulin Human Lispro (Insulin Lispro 100 Unit/1 Ml) 0 unit SUBCUT WM&BEDTIME [facility]; Protocol Last Admin: 02/14/23 20:14 Dose: 4 unit Magnesium Oxide (Magnesium Oxide 400 Mg Tablet) 400 mg PO QPM [facility] Last Admin: 02/14/23 17:24 Dose: 400 mg Metoprolol Tartrate (Metoprolol Tartrate 25 Mg Tablet) 25 mg PO BID [facility] Last Admin: 02/14/23 17:25 Dose: 25 mg Morphine Sulfate (Morphine Ir 15 Mg Tablet) 15 mg PO Q4H PRN PRN Reason: SEVERE PAIN Last Admin: 02/14/23 22:02 Dose: 15 mg Nitroglycerin (Nitroglycerin 0.4 Mg Sublingual Tablet) 0.4 mg SUBLINGUAL Q5M PRN PRN Reason: Chest Pain Non-Formulary Medication (Acetylcysteine [Nac]) 600 mg PO DAILY [facility] Last Admin: 02/14/23 09:17 Dose: Not Given Non-Formulary Medication (Dna Insulin Drops) 10 drop BUCCAL BID [facility] Last Admin: 02/14/23 17:48 Dose: Not Given Ondansetron HCl (Ondansetron 2 Mg/Ml Sdv 2 Ml) 4 mg IVP Q8H PRN PRN Reason: vomiting, or N/V if npo Last Admin: 02/11/23 08:06 Dose: 4 mg Pantoprazole Sodium (Pantoprazole 40 Mg Sdv) 40 mg IVP DAILY [facility] Last Admin: 02/14/23 08:35 Dose: 40 mg Thyroid (Thyroid 60 Mg Tablet) 60 mg PO QAM [facility] Last Admin: 02/15/23 05:30 Dose: 60 mg Tramadol HCl (Tramadol 50 Mg Tablet) 50 mg PO BEDTIME [facility] Last Admin: 02/14/23 20:13 Dose: 50 mg Zolpidem Tartrate (Zolpidem 5 Mg Tablet) 5 mg PO BEDTIME [facility] Last Admin: 02/14/23 20:09 Dose: Not Given Vitals/I&O/Wt Last Vital Signs Temp 98.8 F 02/15/23 08:59 Pulse 88 02/15/23 08:59 Resp 17 02/15/23 08:59 BP 122/61 02/15/23 08:59 Pulse Ox 94 02/15/23 08:59 O2 Del Method Room Air 02/15/23 08:59 O2 Flow Rate 1.5 02/15/23 04:00 02/14/23 02/15/23 02/15/23 22:59 06:59 14:59 Intake Total 440 / 1780 630 / 630 Output Total 700 / 1450 350 / 1800 Balance -260 / 330 -350 / -20 610 / 610 Weight last 48 hrs Weight 211 lb 4 oz Weight 211 lb 8 oz Physical Exam Narrative: GENERAL: The patient is alert and oriented times three. Not in any acute distress. HEENT: No significant pallor, icterus or lymphadenopathy.Oral cavity: There are no mucous membrane lesions. NECK: Trachea appears to be central. No masses noted. No JVD or thyromegaly appr eciated. RESPIRATORY: Chest is symmetrical. No intercostals muscle retraction or any accessory muscle activation. There is no chest wall tenderness. Breath sounds are heard bilaterally. No rales or rhonchi heard. No evidence of any consolidation. BREASTS: Deferred. HEART: The heart sounds are normal. No S3 or S4. No significant murmurs. No pericardial rub ABDOMEN: No vessel pulsations or distention. No tenderness. No organomegaly appreciated. Bowel sounds are normally heard. : Deferred. RECTAL: Deferred. LYMPHATIC: No lymphadenopathy noted in the neck. EXTREMITIES: Diffuse edema of the right lower extremity. Status post transmetatarsal amputation of the right foot. MUSCULOSKELETAL: No acute joint deformities or swelling SKIN: There are no significant rashes or ecchymosis NEUROPSYCHIATRIC: The patient is alert and oriented x3. Appears to be in a good mood. No tremors or rigidity noted. Data 02/15/23 02:28 02/15/23 02:28 Other data: Echocardiogram on 02/05/2023 technically limited quality echocardiogram because of limited ?visualization ?LV systolic function is severely reduced with EF of 30 to 35%.? ?Accurate assessment of regional wall motion abnormalities is not ?possible because of poor ultrasonic windows. ?Left atrial dilation ?Trace mitral regurgitation ?Mild aortic stenosis. ?Mild tricuspid regurgitation ?Compared to prior echocardiogram from 2019, no significant ?changes are seen A&P Assessment and plan (1) Non-healing ulcer: Had a gangrene of the toe. Signs of nonhealing with progression of the infection. Status post a transmetatarsal amputation of the right foot. Currently he is doing okay. (2) SVT (supraventricular tachycardia): No recurrence of SVT at this time. (3) Contrast-induced nephropathy: BUN /creatinine is improving. This is being followed by the nephrology service. (4) Diabetes mellitus with peripheral vascular disease: ColonoscopyAppropriate management of the diabetes (5) Ischemic cardiomyopathy: No evidence of any cardiac decompensation. May continue on the current medications. (6) Atherosclerosis of coronary artery: Status post PCI of the LAD lesion, currently remaining stable. May continue on the current medications. Qualifiers: Coronary Disease-Associated Artery/Lesion type: seminole artery [place] vs. transplanted heart: seminole heart Associated angina: with other forms of angina Qualified Code(s): I25.118 - Atherosclerotic heart disease of seminole coronary artery with other forms of angina pectoris Plan May continue on the current treatment measures. Based on the clinical progress, further recommendations will be made. Attestations Medical Necessity Statement*: Patient requires continued hospital stay for close monitoring and further management Coding Level of Care Code 43140 Diagnoses Non-healing ulcer L98.499 SVT (supraventricular tachycardia) I47.1 Contrast-induced nephropathy N14.11; T50.8X5A Diabetes mellitus with peripheral vascular disease E11.51 Ischemic cardiomyopathy I25.5 Atherosclerosis of coronary artery I25.118 Coronary Disease-Associated Artery/Lesion type: seminole artery [place] vs. transplanted heart: seminole heart Associated angina: with other forms of angina
[2023-02-15 11:19] LABS: Glucose Point of Care 129 mg/dL (70-110)
--- NOTE | 2023-02-15 11:46 | XRR_ITS ---
PROCEDURE INFORMATION: Exam: XR Right Foot Exam date and time: 02/15/2023 12:07 PM Age: 72 years old Clinical indication: Other: S/P tma TECHNIQUE: Imaging protocol: Radiologic exam of the right foot. Views: 3 or more views. COMPARISON: CR (LOW EXM, ) 02/13/2023 8:19 PM FINDINGS: Bones/joints: There is amputation of the forefoot at the level of the proximal shaft of the metatarsals. No acute bony abnormalities seen. Soft tissues: The soft tissues of the stump shows subcutaneous air adjacent to the residual bone structures. This finding may represent postoperative etiology. Cranium with shoe XR/XR foot RT min 3V* [id number] IMPRESSION: 1. Amputation of the forefoot at the level of the proximal shaft of the metatarsals 2. Subcutaneous emphysema of the postoperative stump likely surgical changes
--- NOTE | 2023-02-15 12:14 | PM.PN ---
Subjective Subjective: TMA status post Postop day 0 Leukocytosis morning no Patient not endorsing pain at the bedside They are hoping if he could be discharged tomorrow if everything remains stable he will still need 6 weeks of IV antibiotics Vitals/I&O/Wt Last Vital Signs Temp 98.5 F 02/15/23 09:39 Pulse 85 02/15/23 09:39 Resp 16 02/15/23 09:39 BP 121/61 02/15/23 09:39 Pulse Ox 95 02/15/23 09:39 O2 Del Method Room Air 02/15/23 09:39 O2 Flow Rate 1.5 02/15/23 04:00 02/14/23 02/15/23 02/15/23 22:59 06:59 14:59 Intake Total 440 / 1780 630 / 630 Output Total 700 / 1450 350 / 1800 Balance -260 / 330 -350 / -20 610 / 610 Weight last 48 hrs Weight 95.821 kg Weight 95.935 kg Physical Exam Narrative: Patient in supine Currently on facemask Awake and alert Abdomen soft No active complaints is at the bedside Patient looks euvolemic Pleasant and cooperative Data 02/15/23 02:28 02/15/23 02:28 A&P Assessment and plan (1) Dehiscence of wound: (2) Acute kidney injury superimposed on CKD: (3) Exertional dyspnea: (4) Diabetic ulcer of right foot: (5) Diabetic neuropathy: (6) Peripheral arterial disease: (7) Diabetes: Qualifiers: Diabetes mellitus type: type 2 Diabetes mellitus [employer] insulin use: with retirement use Diabetes mellitus complication status: with kidney complications (8) HTN (hypertension): Qualifiers: Hypertension type: essential hypertension Qualified Code(s): I10 - Essential (primary) hypertension (9) Peripheral neuropathy: (10) History of amputation of toe: (11) S/P transmetatarsal amputation of foot: Plan Postop day 0 transmetatarsal amputation Plan is to discharge on ceftriaxone 2 g daily for 6 weeks Leukocytosis trending down Yeast infection in urine currently on ceftriaxone, given 1 dose of fluconazole Non-STEMI: Medical management Insomnia: Resolved Plan to discharge home with home health on IV antibiotics We will remove dialysis catheter before discharge contrast-induced nephropathy:Improving creatinine trending down Full code Diabetic diet Attestations Medical Necessity Statement*: Discharge in next 24 to 48 hours Diagnoses Dehiscence of wound T81.30XA Acute kidney injury superimposed on CKD N17.9; N18.9 Exertional dyspnea R06.09 Diabetic ulcer of right foot E11.621; L97.519 Diabetic neuropathy E11.40 Peripheral arterial disease I73.9 Diabetes E11.9 Diabetes mellitus type: type 2 Diabetes mellitus retirement insulin use: with intermodal customer service use Diabetes mellitus complication status: with kidney complications HTN (hypertension) I10 Hypertension type: essential hypertension Peripheral neuropathy G62.9 History of amputation of toe Z89.429 S/P transmetatarsal amputation of foot Z89.439
[2023-02-15] MEDS: metoprolol tartrate 25 mg Tablet PO ×2 (14:21→20:47)
[2023-02-15 17:06] LABS: Glucose Point of Care 181 mg/dL (70-110)
[2023-02-15] MEDS: magnesium oxide 400 mg tablet PO (17:15)
[2023-02-15] MEDS: insulin lispro 100 unit/1 mL SUBCUT ×2 (17:15→20:47)
[2023-02-15] MEDS: heparin 5,000 unit/mL INJ 1 mL 5000 UNIT SUBCUT (17:15)
[2023-02-15] MEDS: HYDROcodone-acetaminophen 5-325 mg Tablet 1 TAB PO (18:56)
--- NOTE | 2023-02-15 19:54 | PM.PN ---
Subjective Subjective: no new complaints Medications: Reviewed: Yes Vitals/I&O/Wt Last Vital Signs Temp 98.4 F 02/15/23 19:24 Pulse 88 02/15/23 19:24 Resp 26 H 02/15/23 19:24 BP 120/67 02/15/23 19:24 Pulse Ox 96 02/15/23 19:24 O2 Del Method Room Air 02/15/23 19:24 O2 Flow Rate 1.5 02/15/23 04:00 02/15/23 02/15/23 02/15/23 06:59 14:59 22:59 Intake Total 630 / 630 Output Total 350 / 1800 270 / 270 350 / 620 Balance -350 / -20 360 / 360 -350 / 10 Weight last 48 hrs Weight 95.821 kg Weight 95.935 kg Physical Exam Narrative: Patient is awake alert with no acute distress, on room air HEENT S1-S2 regular rate and rhythm per report Clear to auscultation per report Right foot dressed, has pedal edema Data 02/15/23 02:28 02/15/23 02:28 A&P Assessment and plan (1) Acute kidney injury superimposed on CKD: 1. Acute on chronic kidney disease stage III: Baseline creatinine is in the 1.7-2 range. Patient now has SALLY's-multifactorial secondary to ATN from acute infection, contrast nephropathy -Creatinine worsened with hyperkalemia and metabolic acidosis, s/p temporary HD catheter placement and initiate HD. s/p 2 sessions - Cr improving and UOP increased , -No HD and pt recovering renal function - can DC temp hD catheter - Pt to follow up with ( Nephrology ) 2 weeks post discharge . 2. Hyperkalemia: Placed on low potassium diet, improved 3. History of hypertension: Blood pressure controlled 4. Metabolic acidosis: Secondary to lactic acidosis,improved 5 severe peripheral vascular disease: Status post right toe amputation, 6. History of coronary artery disease and prior stents Patient evaluated using audiovisual cart. Time spent 20 minutes. Plan per medicine Attestations Medical Necessity Statement*: per medicine Coding Level of Care Code Acute Code for Chg Fwd Diagnoses Acute kidney injury superimposed on CKD N17.9; N18.9
[2023-02-15 20:03] LABS: Glucose Point of Care 213 mg/dL (70-110)
[2023-02-15] MEDS: TRAMadol 50 mg Tablet PO (20:47)
[2023-02-15] MEDS: aspirin 81 mg EC Tablet PO (20:47)
[2023-02-15] MEDS: acetaminophen 325 mg Tablet 650 MG PO (20:47)
[2023-02-16] VITALS (10 sets, daily range): BP systolic 105–143; BP diastolic 60–79; PULSE 85–96; RESP 16–24; TEMP 36.8–37.3; O2SAT 90–97
[2023-02-16 02:56] LABS: Basophils # 0.1 10^3/uL (0.0-0.1); Basophils % 0.5 %; Eosinophils # 0.2 10^3/uL (0.0-0.8); Eosinophils % 1.1 %; Hematocrit 35.9 % (42.0-52.0); Hemoglobin 10.5 g/dL (11.7-16.6); Lymphocytes # 3.2 10^3/uL (0.8-4.8); Lymphocytes % 21.5 %; Mean Corpuscular HGB Conc 29.2 g/dL (30.0-36.0); Mean Corpuscular Hemoglobin 27.5 pg (28.0-34.0); Mean Platelet Volume 8.9 fL (7.4-10.4); Monocytes % 6.4 %; Neutrophils # 10.51 10^3/uL (1.8-7.7); Neutrophils % 70.1 %; Nucleated Red Blood Cells % 0 %; Platelet Count 495 10^3/cmm (130-400); Red Blood Count 3.82 10^6/uL (4.1-5.3); Red Cell Distribution Width 14.5 % (12.1-15.1)
[2023-02-16 03:15] LABS: Anion Gap 14.6 (5-19); Blood Urea Nitrogen 31 mg/dL (8-23); Calcium 8.2 mg/dL (8.5-10.5); Carbon Dioxide 29 mmol/L (22-29); Chloride 102 mmol/L (98-107); Glomerular Filtration Rate 31.4 mL/min (90-130); Glucose 182 mg/dL (65-115); Osmolality Calculated 301 mOsm/kg (285-295); Potassium 5.6 mmol/L (3.5-5.1); Sodium 140 mmol/L (136-145)
[2023-02-16] MEDS: FUROsemide 40 mg Tablet PO (05:23)
[2023-02-16] MEDS: thyroid 60 mg Tablet PO (05:23)
[2023-02-16] MEDS: heparin 5,000 unit/mL INJ 1 mL 5000 UNIT SUBCUT ×2 (05:24→17:59)
[2023-02-16] MEDS: insulin glargine 100 units/1 mL 36 UNIT SUBCUT (06:31)
[2023-02-16 06:37] LABS: Glucose Point of Care 186 mg/dL (70-110)
[2023-02-16] MEDS: metoprolol tartrate 25 mg Tablet PO ×2 (08:26→17:59)
[2023-02-16] MEDS: insulin lispro 100 unit/1 mL SUBCUT ×4 (08:27→20:51)
[2023-02-16] MEDS: cefTRIAXone 2,000 MG in sodium chloride 0.9% (plus) 50 ML 100 MG IV (08:27)
--- NOTE | 2023-02-16 09:32 | PM.PN ---
Subjective Subjective: k elevated Medications: Reviewed: Yes Vitals/I&O/Wt Last Vital Signs Temp 98.5 F 02/16/23 07:21 Pulse 96 02/16/23 07:00 Resp 21 H 02/16/23 07:00 BP 127/79 02/16/23 07:00 Pulse Ox 96 02/16/23 07:00 O2 Del Method Room Air 02/16/23 04:32 O2 Flow Rate 1.5 02/15/23 04:00 02/15/23 02/16/23 02/16/23 22:59 06:59 14:59 Intake Total 0 / 630 290 / 290 Output Total 650 / 920 250 / 1170 275 / 275 Balance -650 / -290 -250 / -540 Weight last 48 hrs Weight 95.98 kg Weight 95.821 kg Physical Exam Narrative: Patient is awake alert with no acute distress, on room air HEENT S1-S2 regular rate and rhythm per report Clear to auscultation per report Right foot dressed, has pedal edema Data 02/16/23 02:47 02/16/23 02:47 A&P Assessment and plan (1) Acute kidney injury superimposed on CKD: 1. Acute on chronic kidney disease stage III: Baseline creatinine is in the 1.7-2 range. Patient now has SALLY's-multifactorial secondary to ATN from acute infection, contrast nephropathy -Creatinine worsened with hyperkalemia and metabolic acidosis, s/p temporary HD catheter placement and initiate HD. s/p 2 sessions - Cr improving and UOP increased , -No HD and pt recovering renal function - can DC temp hD catheter - Pt to follow up with ( Nephrology ) 2 weeks post discharge . 2. Hyperkalemia: Placed on low potassium diet, improved 3. History of hypertension: Blood pressure controlled 4. Metabolic acidosis: Secondary to lactic acidosis,improved 5 severe peripheral vascular disease: Status post right toe amputation, 6. History of coronary artery disease and prior stents 7. Hyperkalemia : K 5.6 , recommeded low K diet , ordered a dose of Kayexylate Patient evaluated using audiovisual cart. Time spent 20 minutes. Plan per medicine Attestations Medical Necessity Statement*: per medicine Coding Level of Care Code Acute Code for g Fwd Diagnoses Acute kidney injury superimposed on CKD N17.9; N18.9
[2023-02-16] MEDS: sodium polystyrene sulfonate 15 gm/60 mL Btl 30 GM PR (09:59)
[2023-02-16] MEDS: HYDROcodone-acetaminophen 5-325 mg Tablet 1 TAB PO ×2 (10:38→17:22)
--- NOTE | 2023-02-16 10:58 | P.PN_ITS ---
Subjective Subjective: Patient seen bedside this morning. He is 1 day status post right transmetatarsal amputation. Pain is being controlled with medication, took a hydrocodone this morning with improvement. Strikethrough on outer layer stockinette from fiberglass cast having been saturated and water. There is no s trikethrough bleeding or purulence. Vitals/I&O/Wt Last Vital Signs Temp 98.5 F 02/16/23 07:21 Pulse 96 02/16/23 07:00 Resp 21 H 02/16/23 07:00 BP 127/79 02/16/23 07:00 Pulse Ox 96 02/16/23 07:00 O2 Del Method Room Air 02/16/23 04:32 O2 Flow Rate 1.5 02/15/23 04:00 02/15/23 02/16/23 02/16/23 22:59 06:59 14:59 Intake Total 0 / 630 290 / 290 Output Total 650 / 920 250 / 1170 275 / 275 Balance -650 / -290 -250 / -540 Weight last 48 hrs Weight 211 lb 9.6 oz Weight 211 lb 4 oz Physical Exam Narrative: GENERAL: Patient is alert and oriented ?3 and in no acute distress. The following is a focused right lower extremity exam. Accompanied by his . VASCULAR: Dorsalis pedis diminished. Right posterior tibial artery diminished. Delayed capillary refill at right fourth and fifth toes. Rubor to bilateral lower extremity, dependent. NEUROLOGICAL: Protective sensation intact 0/10 sites, tested with Sheldon Jennifer monofilament to bilateral feet. DERMATOLOGICAL: Postoperative dressings are clean, outer layer stockinette was changed, underlying dressings are not saturated. No erythema or warmth of the right proximal leg. Julio splint left intact. MUSCULOSKELETAL status post right transmetatarsal amputation. Data 02/16/23 02:47 02/16/23 02:47 A&P Assessment and plan (1) Diabetes mellitus with peripheral vascular disease: (2) Gangrenous toe: (3) Status post amputation of toe of right foot: (4) Peripheral arterial disease: Plan 72-year-old male with diabetes and peripheral arterial disease presents with gangrenous right third toe. Status post right transmetatarsal amputation. Right transmetatarsal potation performed 02/15/2023 Surgical dressing left intact. Will not change until later this week in clinic outpatient. Nonweightbearing right foot at this time until amputation site is healed. PICC line in place, 2 g of ceftriaxone being administered daily, this will be continued on discharge at home. Hydrocodone 5/325 mg to be taken every 8 hours as needed for pain sent to pharmacy of choice electronically ([facility]) to be utilized at discharge. Patient okay for discharge from podiatry standpoint. Follow-up in podiatry clinic 7:30 AM this , 02/20/2023 Attestations Medical Necessity Statement*: Green right foot Coding Level of Care Code Acute Code for Chg Fwd Diagnoses Diabetes mellitus with peripheral vascular disease E11.51 Gangrenous toe I96 Status post amputation of toe of right foot Z89.421 Peripheral arterial disease I73.9
--- NOTE | 2023-02-16 10:59 | PC.SOCIAL ---
IMM Updated Updated pt on IMM. No questions voiced. Provided pt a copy. Initialed, dated, & timed copy in chart.
[2023-02-16 11:10] LABS: Glucose Point of Care 227 mg/dL (70-110)
--- NOTE | 2023-02-16 11:43 | P.PN_ITS ---
Subjective Subjective: This morning patient is not complaining of active pain Leukocytosis around 15,000 No fever Spoke with Dr. Baird who has cleared him to return home, Dr. Baird was notified about the mild soaking of dressing For hyperkalemia patient will receive Kayexalate Urine output been good in last 48 hours, today around 300 mL in the morning Vitals/I&O/Wt Last Vital Signs Temp 98.5 F 02/16/23 07:21 Pulse 87 02/16/23 11:21 Resp 16 02/16/23 11:21 BP 117/66 02/16/23 11:21 Pulse Ox 90 02/16/23 11:21 O2 Del Method Room Air 02/16/23 04:32 O2 Flow Rate 1.5 02/15/23 04:00 02/15/23 02/16/23 02/16/23 22:59 06:59 14:59 Intake Total 0 / 630 290 / 290 Output Total 650 / 920 250 / 1170 275 / 275 Balance -650 / -290 -250 / -540 Weight last 48 hrs Weight 95.98 kg Weight 95.821 kg Physical Exam Narrative: Patient is laying supine No active complaint Currently on room air Abdominal soft Bowel sound present No audible stridor or wheezing Pleasant and cooperative S1, S2 GCS 15 Nonfocal neuro exam Right foot covered in dressing Data 02/16/23 02:47 02/16/23 02:47 Micro: Microbiology 02/14/23 22:20 Urine Culture - Preliminary Urine,Clean Catch Yeast species A&P Assessment and plan (1) S/P transmetatarsal amputation of foot: (2) Dehiscence of wound: (3) Acute kidney injury superimposed on CKD: (4) Contrast-induced nephropathy: (5) Exertional dyspnea: (6) Diabetes mellitus with peripheral vascular disease: (7) Diabetic neuropathy: (8) Ischemic cardiomyopathy: (9) Non-healing ulcer: (10) Peripheral arterial disease: (11) HTN (hypertension): Qualifiers: Hypertension type: essential hypertension Qualified Code(s): I10 - Essential (primary) hypertension (12) History of diabetic retinopathy: Plan Gangrene right foot status post amputation third proximal phalanx with positive bone margins Patient suffered with wound dehiscence with worsening of leukocytosis 02/14 however remained afebrile, cultures negative, previous wound culture positive for MSSA and Citrobacter sensitive to cephalosporin Because of worsening leukocytosis and surgical site dehiscence patient went for transmetatarsal amputation however he is still considered high risk for below- knee amputation considering peripheral vascular disease Has been cleared by Dr. 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 Baird will see him in the clinic on PICC line placed left arm 02/12 Acute hypoxia: Resolved Left lung consolidation Patient has received antibiotics during hospitalization No need of antibiotics at the time of discharge for pneumonia Contrast-induced nephropathy, status post 2 dialysis session, temporary dialysis catheter Temporary dialysis catheter to be removed today 02/16 Kidney function is improved Increased urine output noted Continue low-dose Lasix Hyperkalemia Given Kayexalate today Intermittent sinus tachycardia, patient is on metoprolol Currently heart rate is below 90 PICC line tip is in SVC Peripheral vascular disease: Medical management appreciate cardio recommendations Continue aspirin and statin Non-STEMI: Patient and family not interested in LifeVest, cardiology has not approved LifeVest because his EF is still the same since 2019 Full code Cardiac diet Plan to discharge him on Friday if leukocytosis trends below 15,000 Prophylaxis heparin Insomnia: Patient responded well to Ambien Constipation: Resolved Spoke with Dr. Baird Attestations Medical Necessity Statement*: Anticipating discharge on Friday if white count below 15,000 Diagnoses S/P transmetatarsal amputation of foot Z89.439 Dehiscence of wound T81.30XA Acute kidney injury superimposed on CKD N17.9; N18.9 Contrast-induced nephropathy N14.11; T50.8X5A Exertional dyspnea R06.09 Diabetes mellitus with peripheral vascular disease E11.51 Diabetic neuropathy E11.40 Ischemic cardiomyopathy I25.5 Non-healing ulcer L98.499 Peripheral arterial disease I73.9 HTN (hypertension) I10 Hypertension type: essential hypertension History of diabetic retinopathy Z86.39
--- NOTE | 2023-02-16 15:14 | PC.NURSE ---
Temporary dialysis catheter removed from right chest. Patient was instructed to hold breath and bear down, Dialysis catheter removed. Pressure held for 15 minutes. No external or signs of internal bleeding observed. Site cleaned and covered with gauze and transparent dressing to allow for easier assessments. Patient instructed to limit use or right arm for next 2 hours and avoid strenuous activity or lifting object with right arm.
[2023-02-16 17:06] LABS: Glucose Point of Care 177 mg/dL (70-110)
[2023-02-16 17:39] LABS: Potassium 4.8 mmol/L (3.5-5.1)
[2023-02-16] MEDS: magnesium oxide 400 mg tablet PO (17:59)
--- NOTE | 2023-02-16 20:05 | PM.PN ---
Subjective Subjective: The patient seems to be doing okay with no chest pain or palpitations. No arrhythmias on the monitor. Remains afebrile. White cell count is coming down. No new symptoms. Medications: Medication Review Details: Current Medications Acetaminophen (Acetaminophen 325 Mg Tablet) 650 mg PO Q6H PRN PRN Reason: Mild/Mod Pain Or Temp >/= 101 Last Admin: 02/15/23 20:47 Dose: 650 mg Hydrocodone Bitart/Acetaminophen (Hydrocodone-Acetaminophen 5-325 Mg Tablet) 1 tab PO Q6H PRN PRN Reason: MODERATE PAIN Last Admin: 02/16/23 17:22 Dose: 1 tab Albuterol Sulfate (Albuterol 2.5 Mg/3 Ml Neb) 2.5 mg INHALATION ONCE PRN PRN Reason: WHEEZING Aspirin (Aspirin 81 Mg Ec Tablet) 81 mg PO BEDTIME [facility] Last Admin: 02/15/23 20:47 Dose: 81 mg Dextrose (Dextrose 50% Syringe 50 Ml) 50 ml IVP PRN PRN; Protocol PRN Reason: hypoglycemia protocol Dextrose (Dextrose 50% Syringe 50 Ml) 25 ml IVP ONCE PRN; Protocol PRN Reason: hypoglycemia protocol Furosemide (Furosemide 40 Mg Tablet) 40 mg PO QAM [facility] Last Admin: 02/16/23 05:23 Dose: 40 mg Glucagon (Glucagon 1 Mg/Ml Inj 1 Ml) 1 mg IM ONCE PRN; Protocol PRN Reason: Adult Acute Hypoglycemia Prot. Heparin Sodium (Porcine) (Heparin 5,000 Unit/Ml Inj 1 Ml) 5,000 unit SUBCUT Q12H [facility] Last Admin: 02/16/23 17:59 Dose: 5,000 unit Aztreonam 1,000 mg/ Sodium (Chloride) 50 mls @ 100 mls/hr IV Q12H [facility]; Protocol Last Infusion: 02/11/23 05:57 Dose: Infused Dextrose (D5w) 500 mls @ 100 mls/hr IV ONCE PRN; Protocol PRN Reason: Adult Acute Hypoglycemia Prot Last Infusion: 02/09/23 08:00 Dose: 0 mls/hr Sodium Chloride (Sodium Chloride 0.9%) 1,000 mls @ 0 mls/hr IV .Q0M PRN PRN Reason: hypotension or symptomatic Sodium Chloride (Sodium Chloride 0.9%) 1,000 mls @ 0 mls/hr IV .Q0M PRN PRN Reason: hypotension or symptomatic Ceftriaxone Sodium 2,000 mg/ (Sodium Chloride) 50 mls @ 100 mls/hr IV Q24H [facility]; Protocol Last Infusion: 02/16/23 09:16 Dose: Infused Insulin Glargine (Insulin Glargine 100 Units/1 Ml) 36 unit SUBCUT QAM [facility] Last Admin: 02/16/23 06:31 Dose: 36 unit Insulin Human Lispro (Insulin Lispro 100 Unit/1 Ml) 0 unit SUBCUT WM&BEDTIME [facility]; Protocol Last Admin: 02/16/23 17:58 Dose: 4 unit Magnesium Oxide (Magnesium Oxide 400 Mg Tablet) 400 mg PO QPM [facility] Last Admin: 02/16/23 17:59 Dose: 400 mg Metoprolol Tartrate (Metoprolol Tartrate 25 Mg Tablet) 25 mg PO BID [facility] Last Admin: 02/16/23 17:59 Dose: 25 mg Morphine Sulfate (Morphine Ir 15 Mg Tablet) 15 mg PO Q12H PRN PRN Reason: SEVERE PAIN Nitroglycerin (Nitroglycerin 0.4 Mg Sublingual Tablet) 0.4 mg SUBLINGUAL Q5M PRN PRN Reason: Chest Pain Non-Formulary Medication (Acetylcysteine [Nac]) 600 mg PO DAILY [facility] Last Admin: 02/16/23 09:17 Dose: Not Given Non-Formulary Medication (Dna Insulin Drops) 10 drop BUCCAL BID [facility] Last Admin: 02/16/23 19:17 Dose: Not Given Ondansetron HCl (Ondansetron 2 Mg/Ml Sdv 2 Ml) 4 mg IVP Q8H PRN PRN Reason: vomiting, or N/V if npo Last Admin: 02/11/23 08:06 Dose: 4 mg Thyroid (Thyroid 60 Mg Tablet) 60 mg PO QAM [facility] Last Admin: 02/16/23 05:23 Dose: 60 mg Tramadol HCl (Tramadol 50 Mg Tablet) 50 mg PO BEDTIME [facility] Last Admin: 02/15/23 20:47 Dose: 50 mg Zolpidem Tartrate (Zolpidem 5 Mg Tablet) 5 mg PO BEDTIME [facility] Last Admin: 02/15/23 20:54 Dose: Not Given Vitals/I&O/Wt Last Vital Signs Temp 98.2 F 02/16/23 15:38 Pulse 85 02/16/23 15:38 Resp 20 H 02/16/23 15:38 BP 143/73 02/16/23 17:00 Pulse Ox 93 02/16/23 15:38 O2 Del Method Room Air 02/16/23 04:32 O2 Flow Rate 1.5 02/15/23 04:00 02/16/23 02/16/23 02/16/23 06:59 14:59 22:59 Intake Total 0 / 630 510 / 510 240 / 750 Output Total 250 / 1170 275 / 275 Balance -250 / -540 235 / 235 240 / 475 Weight last 48 hrs Weight 211 lb 9.6 oz Weight 211 lb 4 oz Physical Exam Narrative: GENERAL: The patient is alert and oriented times three. Not in any acute distress. HEENT: No significant pallor, icterus or lymphadenopathy.Oral cavity: There are no mucous membrane lesions. NECK: Trachea appears to be central. No masses noted. No JVD or thyromegaly appreciated. RESPIRATORY: Chest is symmetrical. No intercostals muscle retraction or any accessory muscle activation. There is no chest wall tenderness. Breath sounds are heard bilaterally. No rales or rhonchi heard. No evidence of any consolidation. BREASTS: Deferred. HEART: The heart sounds are normal. No S3 or S4. No significant murmurs. No pericardial rub ABDOMEN: No vessel pulsations or distention. No tenderness. No organomegaly appreciated. Bowel sounds are normally heard. : Deferred. RECTAL: Deferred. LYMPHATIC: No lymphadenopathy noted in the neck. EXTREMITIES: Diffuse edema of the right lower extremity. Status post transmetatarsal amputation of the right foot. Currently bandaged. MUSCULOSKELETAL: No acute joint deformities or swelling SKIN: There are no significant rashes or ecchymosis NEUROPSYCHIATRIC: The patient is alert and oriented x3. Appears to be in a good mood. No tremors or rigidity noted. Data 02/16/23 02:47 02/16/23 16:45 Other Labs: Laboratory Last Values WBC 15.0 10^3/uL (4.0-10.0) H 02/16/23 02:47 RBC 3.82 10^6/uL (4.1-5.3) L 02/16/23 02:47 Hgb 10.5 g/dL (11.7-16.6) L 02/16/23 02:47 Hct 35.9 % (42.0-52.0) L 02/16/23 02:47 MCV 94.0 fl (80-94) 02/16/23 02:47 MCH 27.5 pg (28.0-34.0) L 02/16/23 02:47 MCHC 29.2 g/dL (30.0-36.0) L D 02/16/23 02:47 RDW 14.5 % (12.1-15.1) 02/16/23 02:47 Plt Count 495 10^3/cmm (130-400) H 02/16/23 02:47 MPV 8.9 fL (7.4-10.4) 02/16/23 02:47 Neut % (Auto) 70.1 % 02/16/23 02:47 Lymph % (Auto) 21.5 % 02/16/23 02:47 [place] % (Auto) 6.4 % 02/16/23 02:47 Eos % (Auto) 1.1 % 02/16/23 02:47 Baso % (Auto) 0.5 % 02/16/23 02:47 Neut # (Auto) 10.51 10^3/uL (1.8-7.7) H 02/16/23 02:47 Lymph # (Auto) 3.2 10^3/uL (0.8-4.8) 02/16/23 02:47 [place] # (Auto) 1.0 10^3/uL (0.2-0.9) H 02/16/23 02:47 Eos # (Auto) 0.2 10^3/uL (0.0-0.8) 02/16/23 02:47 Baso # (Auto) 0.1 10^3/uL (0.0-0.1) 02/16/23 02:47 Nucleated RBC % (auto) 0 % 02/16/23 02:47 Total Counted 100 (0-100) 02/14/23 09:36 Atypical Lymphs % 18.0 % (0-5) H 02/14/23 09:36 Absolute Neutrophils 8.5 10^3/cmm (1.4-6.5) H 02/14/23 09:36 Segmented Neutrophils 58 % 02/14/23 09:36 Abs Segm Neuts (Man) 8.4 10/cmm (1.6-7.1) H 02/14/23 09:36 Band Neutrophils 1.0 % 02/14/23 09:36 Abs Band Neuts (Man) 0.1 10^3/cmm (0.0-1.2) 02/14/23 09:36 Absolute Lymphocytes 5.3 10^3/cmm (1.2-3.4) H 02/14/23 09:36 Lymphocytes (Manual) 19 % 02/14/23 09:36 Monocytes (Manual) 3.0 % 02/14/23 09:36 Absolute Monocytes 0.4 10^3/cmm (0.1-0.6) 02/14/23 09:36 Eosinophils (Manual) 1 % 02/14/23 09:36 Absolute Eosinophils 0.1 10^3/cmm (0.0-0.7) 02/14/23 09:36 Basophils (Manual) 0.0 % 02/14/23 09:36 Absolute Basophils 0.0 10^3/cmm (0.0-0.2) 02/14/23 09:36 Nucleated RBCs # 0.0 /100WBC 02/16/23 02:47 Platelet Estimate Increased (Normal) 02/14/23 09:36 PT 14.40 SECONDS (12.1-14.9) 02/05/23 12:39 INR 1.09 (0.8-1.2) 02/05/23 12:39 D-Dimer 1.45 ug/mIFEU (0-0.59) H 02/14/23 04:34 Sodium 140 mmol/L (136-145) 02/16/23 02:47 Potassium 4.8 mmol/L (3.5-5.1) 02/16/23 16:45 Chloride 102 mmol/L (98-107) 02/16/23 02:47 Carbon Dioxide 29 mmol/L (22-29) 02/16/23 02:47 Anion Gap 14.6 (5-19) 02/16/23 02:47 BUN 31 mg/dL (8-23) H 02/16/23 02:47 Creatinine 2.1 mg/dL (0.7-1.2) H 02/16/23 02:47 GFR Calculation 31.4 mL/min (90-130) L 02/16/23 02:47 Glucose 182 mg/dL (65-115) H 02/16/23 02:47 POC Glucose 177 mg/dL (70-110) H 02/16/23 16:51 Estimat Average Glucose 174 02/06/23 00:56 Hemoglobin A1c 7.7 % (4.0-6.0) H 02/06/23 00:56 Calculated Osmolality 301 mOsm/kg (285-295) H 02/16/23 02:47 Lactic Acid 1.2 mmol/L (0.5-2.2) 02/05/23 11:38 Calcium 8.2 mg/dL (8.5-10.5) L 02/16/23 02:47 Magnesium 2.2 mg/dL (1.7-2.3) 02/07/23 20:00 Total Bilirubin 0.3 mg/dL (0.15-1.2) 02/05/23 11:38 AST 11 U/L (0-40) 02/05/23 11:38 ALT 12 U/L (0-41) 02/05/23 11:38 Alkaline Phosphatase 130 U/L (40-130) 02/05/23 11:38 Troponin T Gen 5 ng/L 120 ng/L (0-15) H* 02/05/23 15:53 Total Protein 5.8 g/dL (6.6-8.7) L 02/05/23 11:38 Albumin 2.6 g/dL (3.5-5.2) L 02/05/23 11:38 Globulin 3.2 g/dL (1.3-4.6) 02/05/23 11:38 Urine Color Yellow (Yellow) 02/14/23 22:20 Urine Appearance Hazy (CLEAR) A 02/14/23 22:20 Urine pH 5 (5-7) 02/14/23 22:20 Ur Specific [place] 1.020 (1.005-1.030) 02/14/23 22:20 Urine Protein 2+ (Negative) H 02/14/23 22:20 Urine Glucose (UA) Norm (Normal) 02/14/23 22:20 Urine Ketones Negative (Negative) 02/14/23 22:20 Urine Blood 2+ (Negative) H 02/14/23 22:20 Urine Nitrate Negative (Negative) 02/14/23 22:20 Urine Bilirubin Neg (Negative) 02/14/23 22:20 Urine Urobilinogen Norm mg/dL (Negative) 02/14/23 22:20 Ur Leukocyte Esterase Trace (Negative) H 02/14/23 22:20 Urine RBC 10-15 /hpf (0-2) H 02/14/23 22:20 Urine WBC 10-15 /hpf (0-5) H 02/14/23 22:20 Ur Squamous Epith Cells 0-4 /hpf (0-5) H 02/14/23 22:20 Amorphous Sediment Not Reportable 02/14/23 22:20 Urine Bacteria 1+ /hpf (NONE) H 02/14/23 22:20 Urine Yeast 3+ /hpf H 02/14/23 22:20 Vancomycin Trough 34.1 ug/mL (10-15) H* 02/07/23 20:00 Random Vancomycin 21.3 ug/mL (20.0-40.0) 02/10/23 03:16 Hep Bs Antigen Non-reactive (Nonreactive) 02/08/23 17:55 Hep Bs Antibody 6.6 (11.5-1000) L 02/08/23 17:55 Micro: Microbiology 02/14/23 22:20 Urine Culture - Preliminary Urine,Clean Catch Yeast species A&P Assessment and plan (1) Non-healing ulcer: Patient is status post transmetatarsal amputation of the right foot. Currently remaining afebrile. The white cell count is coming down. (2) SVT (supraventricular tachycardia): No recurrence of SVT at this time. Myocardial nuclear medications (3) Contrast-induced nephropathy: BUN /creatinine is improving. This is being followed by the nephrology service. (4) Diabetes mellitus with peripheral vascular disease: Gangrene of the toe, status post transmetatarsal amputation (5) Ischemic cardiomyopathy: No evidence of any cardiac decompensation. May continue on the current medications. (6) Atherosclerosis of coronary artery: Status post PCI of the LAD lesion, currently remaining stable. May continue on the current medications. Qualifiers: Coronary Disease-Associated Artery/Lesion type: [place] artery [place] vs. transplanted heart: [place] heart Associated angina: with other forms of angina Qualified Code(s): I25.118 - Atherosclerotic heart disease of [place] coronary artery with other forms of angina pectoris Plan May continue on the current treatment measures. Based on the clinical progress, further recommendations will be made. Attestations Medical Necessity Statement*: Disposition as per the primary Coding Level of Care Code Acute Code for Chg Fwd Diagnoses Non-healing ulcer L98.499 SVT (supraventricular tachycardia) I47.1 Contrast-induced nephropathy N14.11; T50.8X5A Diabetes mellitus with peripheral vascular disease E11.51 Ischemic cardiomyopathy I25.5 Atherosclerosis of coronary artery I25.118 Coronary Disease-Associated Artery/Lesion type: [place] artery [place] vs. transplanted heart: [place] heart Associated angina: with other forms of angina
[2023-02-16 20:40] LABS: Glucose Point of Care 171 mg/dL (70-110)
[2023-02-16] MEDS: TRAMadol 50 mg Tablet PO (20:49)
[2023-02-16] MEDS: acetaminophen 325 mg Tablet 650 MG PO (20:49)
[2023-02-16] MEDS: aspirin 81 mg EC Tablet PO (20:50)
[2023-02-17] VITALS (8 sets, daily range): BP systolic 116–146; BP diastolic 65–83; PULSE 78–95; RESP 18–33; TEMP 36.7–37.2; O2SAT 93–98
--- NOTE | 2023-02-17 00:45 | PC.NURSE ---
Patient stated pain level at a 4 on a scale 0-10. Patient was offered the prn pain medication, patient refused medication, said pain was tolerable.
[2023-02-17] MEDS: HYDROcodone-acetaminophen 5-325 mg Tablet 1 TAB PO ×2 (02:50→13:40)
[2023-02-17 03:05] LABS: Basophils # 0.1 10^3/uL (0.0-0.1); Basophils % 0.5 %; Eosinophils # 0.1 10^3/uL (0.0-0.8); Hematocrit 32.6 % (42.0-52.0); Hemoglobin 9.8 g/dL (11.7-16.6); Lymphocytes # 2.8 10^3/uL (0.8-4.8); Lymphocytes % 20.5 %; Mean Corpuscular HGB Conc 30.1 g/dL (30.0-36.0); Mean Corpuscular Hemoglobin 27.5 pg (28.0-34.0); Mean Corpuscular Volume 91.6 fl (80-94); Mean Platelet Volume 8.5 fL (7.4-10.4); Monocytes # 0.8 10^3/uL (0.2-0.9); Monocytes % 6.2 %; Neutrophils # 9.56 10^3/uL (1.8-7.7); Neutrophils % 71.3 %; Nucleated Red Blood Cells % 0 %; Platelet Count 419 10^3/cmm (130-400); Red Blood Count 3.56 10^6/uL (4.1-5.3); Red Cell Distribution Width 14.6 % (12.1-15.1); White Blood Count 13.4 10^3/uL (4.0-10.0)
[2023-02-17 03:27] LABS: Anion Gap 15.3 (5-19); Blood Urea Nitrogen 31 mg/dL (8-23); C Reactive Protein 120.8 mg/L (0.0-4.9); Calcium 8.3 mg/dL (8.5-10.5); Carbon Dioxide 30 mmol/L (22-29); Chloride 102 mmol/L (98-107); Glomerular Filtration Rate 37.5 mL/min (90-130); Glucose 84 mg/dL (65-115); Osmolality Calculated 302 mOsm/kg (285-295); Potassium 4.3 mmol/L (3.5-5.1); Sodium 143 mmol/L (136-145)
[2023-02-17] MEDS: FUROsemide 40 mg Tablet PO (06:03)
[2023-02-17] MEDS: thyroid 60 mg Tablet PO (06:03)
[2023-02-17] MEDS: heparin 5,000 unit/mL INJ 1 mL 5000 UNIT SUBCUT (06:04)
[2023-02-17] MEDS: insulin glargine 100 units/1 mL 36 UNIT SUBCUT (06:28)
[2023-02-17 06:33] LABS: Glucose Point of Care 104 mg/dL (70-110)
--- NOTE | 2023-02-17 07:18 | PC.NURSE ---
chart reviewed and agree with documentation by nurse resident
--- NOTE | 2023-02-17 07:26 | P.PN_ITS ---
Subjective Subjective: The events of the weekend are noted. He had a right transmetatarsal amputation on Friday. His heart rate is back down less than 100. Rhythm is sinus. Creatinine is down to 1.8 today. Urine output greater than 1 L. He is fast asleep this morning. Vitals/I&O/Wt Last Vital Signs Temp 98.9 F 02/17/23 05:11 Pulse 92 02/17/23 06:00 Resp 33 H 02/17/23 05:11 BP 146/72 02/17/23 05:11 Pulse Ox 93 02/17/23 05:11 O2 Del Method Room Air 02/17/23 00:00 O2 Flow Rate 1.5 02/15/23 04:00 02/16/23 02/17/23 02/17/23 22:59 06:59 14:59 Intake Total 390 / 900 325 / 1225 Output Total 500 / 775 250 / 1025 Balance -110 / 125 75 / 200 Weight last 48 hrs Weight 210 lb 9.6 oz Weight 211 lb 9.6 oz Physical Exam Narrative: GENERAL: In general he looks and feels well this morning HEENT: Exam within normal limits. NECK: Supple without jugular vein distention. The carotid upstroke is normal without bruits. BACK: Exam normal. LUNGS: Clear. HEART: Regular rate and rhythm. ABDOMEN: Benign without organomegaly or tenderness. EXTREMITIES: No edema. NEUROLOGIC: Exam normal. SKIN: Unremarkable. Data 02/17/23 02:57 02/17/23 02:57 Micro: Microbiology 02/14/23 22:20 Urine Culture - Preliminary Urine,Clean Catch Yeast species A&P Assessment and plan (1) S/P transmetatarsal amputation of foot: (2) Dehiscence of wound: (3) SVT (supraventricular tachycardia): (4) Acute kidney injury superimposed on CKD: (5) Contrast-induced nephropathy: (6) Diabetes mellitus with peripheral vascular disease: (7) Atherosclerosis of coronary artery: Qualifiers: Coronary Disease-Associated Artery/Lesion type: [place] artery [place] vs. transplanted heart: [place] heart Associated angina: with other forms of ang uriah Qualified Code(s): I25.118 - Atherosclerotic heart disease of [place] c oronary artery with other forms of angina pectoris (8) Hyperlipidemia: Qualifiers: Hyperlipidemia type: mixed hyperlipidemia Qualified Code(s): E78.2 - Mixed hyperlipidemia (9) Peripheral arterial disease: Plan Stable cardiovascular system. No changes today. Attestations Medical Necessity Statement*: Continued hospitalization for management of critical limb ischemia and contrast- induced nephropathy. and Straight Forward/Low Time for a total of 15 minutes, includes reviewing past or interval history, examining/interviewing patient and documenting encounter Diagnoses S/P transmetatarsal amputation of foot Z89.439 Dehiscence of wound T81.30XA SVT (supraventricular tachycardia) I47.1 Acute kidney injury superimposed on CKD N17.9; N18.9 Contrast-induced nephropathy N14.11; T50.8X5A Diabetes mellitus with peripheral vascular disease E11.51 Atherosclerosis of coronary artery I25.118 Coronary Disease-Associated Artery/Lesion type: [place] artery [place] vs. transplanted heart: [place] heart Associated angina: with other forms of angina Hyperlipidemia E78.2 Hyperlipidemia type: mixed hyperlipidemia Peripheral arterial disease I73.9
[2023-02-17] MEDS: cefTRIAXone 2,000 MG in sodium chloride 0.9% (plus) 50 ML 100 MG IV (08:14)
[2023-02-17] MEDS: metoprolol tartrate 25 mg Tablet PO (08:14)
--- NOTE | 2023-02-17 10:36 | PM.PN ---
Subjective Subjective: discussed with RN No new complaints Medications: Reviewed: Yes Vitals/I&O/Wt Last Vital Signs Temp 98.0 F 02/17/23 08:00 Pulse 93 02/17/23 08:00 Resp 22 H 02/17/23 08:00 BP 116/65 02/17/23 08:00 Pulse Ox 96 02/17/23 08:00 O2 Del Method Room Air 02/17/23 08:00 O2 Flow Rate 1.5 02/15/23 04:00 02/16/23 02/17/23 02/17/23 22:59 06:59 14:59 Intake Total 390 / 900 325 / 1225 410 / 410 Output Total 500 / 775 250 / 1025 400 / 400 Balance -110 / 125 75 / 200 10 / 10 Weight last 48 hrs Weight 95.527 kg Weight 95.98 kg Physical Exam Narrative: deferred Data 02/17/23 02:57 02/17/23 02:57 Micro: Microbiology 02/14/23 22:20 Urine Culture - Preliminary Urine,Clean Catch Yeast species A&P Assessment and plan (1) Acute kidney injury superimposed on CKD: 1. Acute on chronic kidney disease stage III: Baseline creatinine is in the 1.7-2 range. Patient now has SALLY's-multifactorial secondary to ATN from acute infection, contrast nephropathy -Creatinine worsened with hyperkalemia and metabolic acidosis, s/p temporary HD catheter placement and initiate HD. s/p 2 sessions - Crimproved back to baseline , - can DC temp hD catheter - Pt to follow up with ( Nephrology ) 2 weeks post discharge . 2. Hyperkalemia: Placed on low potassium diet, improved 3. History of hypertension: Blood pressure controlled 4. Metabolic acidosis: Secondary to lactic acidosis,improved 5 severe peripheral vascular disease: Status post right toe amputation, 6. History of coronary artery disease and prior stents 7. Hyperkalemia : K 5.6 , recommeded low K diet , ordered a dose of Kayexylate Patient evaluated using audiovisual cart. Time spent 20 minutes. Plan per medicine Attestations Medical Necessity Statement*: per medicine Coding Level of Care Code Acute Code for Chg Fwd Diagnoses Acute kidney injury superimposed on CKD N17.9; N18.9
[2023-02-17 11:15] LABS: Glucose Point of Care 183 mg/dL (70-110)
[2023-02-17] MEDS: insulin lispro 100 unit/1 mL SUBCUT (12:43)
--- NOTE | 2023-02-17 14:43 | P.DS_ITS ---
Discharge Providers Date of Admission: 02/05/23 14:37 Date of Discharge: February 17, 2023 Attending Provider at Admission: Paddy Madsen Attending Provider at Discharge: Paddy Madsen Primary Care Provider: Beatriz Brady Diagnoses at Discharge Discharge Diagnosis (1) Acute kidney injury superimposed on CKD: Status: Acute Reason for Visit Reason for Visit: Right foot,toe pain Hospital Course Hospital Course Very pleasant 72-year-old with history of PVD, DM, prior amputations first and second digit on the right foot, prior to admission, presented to wound care clinic with gangrene of the third toe, CTA was ordered outpatient, but due to pain came into the ER. CTA done in the ER, noted with occlusion of SFA down to popliteal, with some reconstitution distally, but poor flow, seen by podiatry, cardiology, underwent potation of the toe, empirically treated with aztreonam, vancomycin, Flagyl. Seen by cardiology, underwent angiogram but without possibility of intervention. Seen also by vascular surgery, consideration of femoropopliteal bypass, but thought to be likely to risky/more detrimental than beneficial. No good option for intervention. Underwent third right digit amputation on 02/09. Continued with empiric IV antibiotics. Subsequently underwent delayed closure following amputation. Continues to have gangrenous changes to the right forefoot necessitating a higher level of amputation. Despite discussion of poor vascular supply and elevated risk of nonhealing, he was not on board for BKA. Underwent TMT amputation on 02/15. He is to remain nonweightbearing on right lower extremity amputation site is healed. Maintain dressing until follow-up with podiatry in office. Prognosis still guarded without guarantees that this will heal. MRI right foot, noncontrast due to renal failure, did not show osteomyelitis. Original cultures from 02/06 growing Citrobacter from the and MSSA. He was planned to continue with additional 6 weeks of IV ceftriaxone at discharge via PICC line placed during this admission. Hospitalization was complicated by acute renal failure, possibly contrast- induced nephropathy, possibly ATN secondary to infection. With progressively worsening renal failure, uremia, required placement of t emporary dialysis catheter and dialysis support while in hospital. SALLY gradually improved, and was able to come off dialysis, temporary dialysis catheter was removed. He is asked to follow-up with nephrology with Dr. Julio. While in the hospital maintain on low potassium diet due to trending up potassium initially, is asked to continue. Creatinine has been gradually improving, today down to 1.8. During hospitalization monitored also for fluid overload. He does have history of CAD, stent in the past, as well as cardiomyopathy, previously EF 30-35%, after stenting improved up to 40-45%. On presentation stated that he occasionally gets chest pressure episodes, not really related to exertion, but does get dyspnea with exertion. Recheck echocardiogram, EF again down to 30-35%, although other cardiac work-up with no suggestion of acute ischemia. Per discussion with cardiology he should follow-up with cardiology in office for determination of further assessment steps, consideration of stress test versus other options. Continue to optimize cardiovascular risk factors. Physical Exam Narrative: Accompanied by his Const: COMMON NORMALS: patient oriented x3 and alert GENERAL APPEARANCE: cooperative ORIENTATION/CONSCIOUSNESS: Yes awake HENMT: COMMON NORMALS: oropharynx normal Neck/C-Spine: COMMON NORMALS: no JVD Resp: COMMON NORMALS: normal respiratory effort and clear to auscultation bilaterally AUSCULTATION: clear to auscultation bilaterally Cardio: COMMON NORMALS: no JVD, regular rhythm, S1 normal heart sound present, S2 normal heart sound present and No murmurs present (Cardio) RHYTHM: regular rhythm HEART SOUNDS: S1 normal heart sound present and S2 normal heart sound present GI: COMMON NORMALS: Normal to inspection, nondistended, normoactive bowel sounds present, Soft to palpation and non-tender PALPATION: Yes Soft to palpation Extremity: COMMON NORMALS: no joint enlargement and no pedal edema NARRAT EVETTE EXTREMITY EXAM: Right foot in post-op dressing after wound closure. No proximal erythema or swelling at the ankle. Neuro: COMMON NORMALS: patient oriented x3 and moves all extremities SENSORIUM/ORIENTATION: Yes alert Skin: GENERAL SKIN EXAM: no erythema Discharge Data Studies Completed and Pending Completed Studies During Hospitalization Category Date Time Status CT angio abd aorta runof [id number] Stat Cat Scan 02/05/23 11:25 Completed [employer] request for service Routine Exams 02/06/23 06:14 Completed CXRP [XR chest 1V portable [id number]] Routine Exams 02/08/23 08:33 Completed CXRP [XR chest 1V portable [id number]] Routine Exams 02/12/23 13:30 Completed XR chest 1V portable [id number] Stat Exams 02/08/23 16:09 Completed XR foot RT min 3V* [id number] Routine Exams 02/13/23 20:09 Completed XR foot RT min 3V* [id number] Routine Exams 02/15/23 11:46 Completed XR foot RT min 3V* [id number] Stat Exams 02/05/23 11:25 Completed MR foot RT wo con* [id number] Routine MRI 02/07/23 09:30 Completed Pathology: Surgical [PTH] Routine Pth 02/06/23 07:43 Completed CV. echo complete* [id number] Routine Ultrasound 02/05/23 15:31 Completed US renal BI with PV bladder Routine Ultrasound 02/09/23 08:33 Completed Pending at discharge Category Date Time Status Sputum Culture and Gram Stain Routine Lab 02/05/23 16:02 Uncollected Urine Culture Routine Lab 02/14/23 22:20 Results Pathology: Surgical [PTH] Routine Pth 02/15/23 08:47 Received Radiology Impressions Aorta w/Runoff CTA 02/05/23 11:25 IMPRESSION: 1. RIGHT: Superficial femoral artery is occluded at the origin and remains occluded throughout the thigh. Reconstitution of the popliteal artery [id number] with multifocal areas of moderate to severe stenosis and near occlusion. Two-vessel runoff to the ankle with dominant posterior tibial artery. Tiny amount of flow in the peroneal artery. Anterior tibial artery is occluded. Popliteal disease progressed compared to previous 2. LEFT: Moderate to severe multifocal segmental stenosis superficial femoral artery with near occlusion at the adductor hiatus. Tiny popliteal artery with multifocal stenosis. Dominant single vessel posterior tibial runoff. Densely calcified anterior tibial and peroneal arteries. 3. No abdominal aortic aneurysm. 4. Small LEFT pleural effusion with patchy infiltrates LEFT lower lobe partially visualized.Recommend correlation for pneumonia. 5. Tiny RIGHT pleural effusion. Foot MRI 02/07/23 09:30 IMPRESSION: 1. Satisfactory postoperative recent changes of amputation involving the third phalanx. 2. No marrow edema identified involving the distal third metatarsal. 3. Prior amputation distal phalanx first toe and absent second toe. C-Arm Fluoroscopy 02/08/23 14:50 IMPRESSION: Catheter placement as above. Renal Ultrasound 02/09/23 08:33 IMPRESSION: Unremarkable kidneys and bladder. Chest X-Ray 02/12/23 13:30 IMPRESSION: PICC line placement in proper position in the SVC as above. Increasing lung opacities as above. The central lung opacities may represent early interstitial edema. The left lung base abnormality may represent pneumonitis and/or atelectasis. Foot X-Ray 02/15/23 11:46 IMPRESSION: 1. Amputation of the forefoot at the level of the proximal shaft of the metatarsals 2. Subcutaneous emphysema of the postoperative stump likely surgical changes Laboratory Results WBC 13.4 10^3/uL (4.0-10.0) H 02/17/23 02:57 RBC 3.56 10^6/uL (4.1-5.3) L 02/17/23 02:57 Hgb 9.8 g/dL (11.7-16.6) L 02/17/23 02:57 Hct 32.6 % (42.0-52.0) L 02/17/23 02:57 MCV 91.6 fl (80-94) 02/17/23 02:57 MCH 27.5 pg (28.0-34.0) L 02/17/23 02:57 MCHC 30.1 g/dL (30.0-36.0) 02/17/23 02:57 RDW 14.6 % (12.1-15.1) 02/17/23 02:57 Plt Count 419 10^3/cmm (130-400) H 02/17/23 02:57 MPV 8.5 fL (7.4-10.4) 02/17/23 02:57 Neut % (Auto) 71.3 % 02/17/23 02:57 Lymph % (Auto) 20.5 % 02/17/23 02:57 Rich % (Auto) 6.2 % 02/17/23 02:57 Eos % (Auto) 1.0 % 02/17/23 02:57 Baso % (Auto) 0.5 % 02/17/23 02:57 Neut # (Auto) 9.56 10^3/uL (1.8-7.7) H 02/17/23 02:57 Lymph # (Auto) 2.8 10^3/uL (0.8-4.8) 02/17/23 02:57 Rich # (Auto) 0.8 10^3/uL (0.2-0.9) 02/17/23 02:57 Eos # (Auto) 0.1 10^3/uL (0.0-0.8) 02/17/23 02:57 Baso # (Auto) 0.1 10^3/uL (0.0-0.1) 02/17/23 02:57 Nucleated RBC % (auto) 0 % 02/17/23 02:57 Total Counted 100 (0-100) 02/14/23 09:36 Atypical Lymphs % 18.0 % (0-5) H 02/14/23 09:36 Absolute Neutrophils 8.5 10^3/cmm (1.4-6.5) H 02/14/23 09:36 Segmented Neutrophils 58 % 02/14/23 09:36 Abs Segm Neuts (Man) 8.4 10/cmm (1.6-7.1) H 02/14/23 09:36 Band Neutrophils 1.0 % 02/14/23 09:36 Abs Band Neuts (Man) 0.1 10^3/cmm (0.0-1.2) 02/14/23 09:36 Absolute Lymphocytes 5.3 10^3/cmm (1.2-3.4) H 02/14/23 09:36 Lymphocytes (Manual) 19 % 02/14/23 09:36 Monocytes (Manual) 3.0 % 02/14/23 09:36 Absolute Monocytes 0.4 10^3/cmm (0.1-0.6) 02/14/23 09:36 Eosinophils (Manual) 1 % 02/14/23 09:36 Absolute Eosinophils 0.1 10^3/cmm (0.0-0.7) 02/14/23 09:36 Basophils (Manual) 0.0 % 02/14/23 09:36 Absolute Basophils 0.0 10^3/cmm (0.0-0.2) 02/14/23 09:36 Nucleated RBCs # 0.0 /100WBC 02/17/23 02:57 Platelet Estimate Increased (Normal) 02/14/23 09:36 PT 14.40 SECONDS (12.1-14.9) 02/05/23 12:39 INR 1.09 (0.8-1.2) 02/05/23 12:39 D-Dimer 1.45 ug/mIFEU (0-0.59) H 02/14/23 04:34 Sodium 143 mmol/L (136-145) 02/17/23 02:57 Potassium 4.3 mmol/L (3.5-5.1) 02/17/23 02:57 Chloride 102 mmol/L (98-107) 02/17/23 02:57 Carbon Dioxide 30 mmol/L (22-29) H 02/17/23 02:57 Anion Gap 15.3 (5-19) 02/17/23 02:57 BUN 31 mg/dL (8-23) H 02/17/23 02:57 Creatinine 1.8 mg/dL (0.7-1.2) H 02/17/23 02:57 GFR Calculation 37.5 mL/min (90-130) L 02/17/23 02:57 Glucose 84 mg/dL (65-115) 02/17/23 02:57 POC Glucose 183 mg/dL (70-110) H 02/17/23 11:09 Estimat Average Glucose 174 02/06/23 00:56 Hemoglobin A1c 7.7 % (4.0-6.0) H 02/06/23 00:56 Calculated Osmolality 302 mOsm/kg (285-295) H 02/17/23 02:57 Lactic Acid 1.2 mmol/L (0.5-2.2) 02/05/23 11:38 Calcium 8.3 mg/dL (8.5-10.5) L 02/17/23 02:57 Magnesium 2.2 mg/dL (1.7-2.3) 02/07/23 20:00 Total Bilirubin 0.3 mg/dL (0.15-1.2) 02/05/23 11:38 AST 11 U/L (0-40) 02/05/23 11:38 ALT 12 U/L (0-41) 02/05/23 11:38 Alkaline Phosphatase 130 U/L (40-130) 02/05/23 11:38 Troponin T Gen 5 ng/L 120 ng/L (0-15) H* 02/05/23 15:53 C-Reactive Protein 120.8 mg/L (0.0-4.9) H 02/17/23 02:57 Total Protein 5.8 g/dL (6.6-8.7) L 02/05/23 11:38 Albumin 2.6 g/dL (3.5-5.2) L 02/05/23 11:38 Globulin 3.2 g/dL (1.3-4.6) 02/05/23 11:38 Urine Color Yellow (Yellow) 02/14/23 22:20 Urine Appearance Hazy (CLEAR) A 02/14/23 22:20 Urine pH 5 (5-7) 02/14/23 22:20 Ur Specific [place] 1.020 (1.005-1.030) 02/14/23 22:20 Urine Protein 2+ (Negative) H 02/14/23 22:20 Urine Glucose (UA) Norm (Normal) 02/14/23 22:20 Urine Ketones Negative (Negative) 02/14/23 22:20 Urine Blood 2+ (Negative) H 02/14/23 22:20 Urine Nitrate Negative (Negative) 02/14/23 22:20 Urine Bilirubin Neg (Negative) 02/14/23 22:20 Urine Urobilinogen Norm mg/dL (Negative) 02/14/23 22:20 Ur Leukocyte Esterase Trace (Negative) H 02/14/23 22:20 Urine RBC 10-15 /hpf (0-2) H 02/14/23 22:20 Urine WBC 10-15 /hpf (0-5) H 02/14/23 22:20 Ur Squamous Epith Cells 0-4 /hpf (0-5) H 02/14/23 22:20 Amorphous Sediment Not Reportable 02/14/23 22:20 Urine Bacteria 1+ /hpf (NONE) H 02/14/23 22:20 Urine Yeast 3+ /hpf H 02/14/23 22:20 Vancomycin Trough 34.1 ug/mL (10-15) H* 02/07/23 20:00 Random Vancomycin 21.3 ug/mL (20.0-40.0) 02/10/23 03:16 Hep Bs Antigen Non-reactive (Nonreactive) 02/08/23 17:55 Hep Bs Antibody 6.6 (11.5-1000) L 02/08/23 17:55 Vitals Last Vital Signs Temp 98.0 F 02/17/23 08:00 Pulse 92 02/17/23 12:00 Resp 19 H 02/17/23 12:00 BP 133/66 02/17/23 12:00 Pulse Ox 96 02/17/23 12:00 O2 Del Method Room Air 02/17/23 12:00 O2 Flow Rate 1.5 02/15/23 04:00 Discharge Plan Discharge Patient Disposition: Home Health Service Condition: Stable Prescriptions: New hydrocodone-acetaminophen 5-325 mg tablet 1 tab PO Q8H PRN (Reason: pain) 7 Days Qty: 21 0RF ceftriaxone 1 gram recon soln 2 g IM Q24H 42 Days Qty: 43 0RF Continued garlic 1,000 mg capsule 1,000 mg PO BEDTIME furosemide 40 mg tablet 40 mg PO QAM Hold Instructions: Resume on 10/21/21. Novolin R Regular U-100 Insuln 100 unit/mL Solution See Rx Instructions .ROUTE .COMPLEX Rx Instructions: sliding scale three times a day as needed Nitrostat 0.4 mg Tablet, Sublingual 0.4 mg SUBLINGUAL Q5M PRN (Reason: Chest Pain) Rx Instructions: do not exceed 3 doses per episode [place]orn tejada 500 mg Capsule 500 mg PO BID Levemir FlexPen 100 unit/mL (3 mL) insulin pen 36 unit SUBCUT QAM [place] Thyroid 60 mg tablet 60 mg PO QAM magnesium oxide 400 mg magnesium Capsule 400 mg PO QPM NAC 600 mg Capsule 600 mg PO DAILY resveratrol 100 mg Capsule 100 mg PO BID Clean Spleen Capsules 1 cap PO DAILY Dna Insulin Drops 10 drp buccal BID [place] Drops See Rx Instructions .ROUTE .COMPLEX Rx Instructions: one dropperful twice a day Vitamin B Complex Liquid See Rx Instructions .ROUTE .COMPLEX Rx Instructions: one dropperful twice a day aspirin 81 mg tablet,delayed release (DR/EC) 81 mg PO BEDTIME tramadol 50 mg tablet 50 mg PO BEDTIME Discontinued linezolid [Zyvox] 600 mg tablet 600 mg PO BID Qty: 14 0RF Rx Instructions: for 7 days (rx filled 01/31/23) potassium chloride 10 mEq tablet extended release 10 meq PO DAILY Qty: 30 3RF Rx Instructions: medication on hold as of 02/05/23 pt not taken in 2 weeks Discharge Orders: Discharge Order (Routine); Ordered 02/17/23 Ordered By: Paddy Madsen Other Ambulatory Orders: DME: Wheelchair (Order) Location: None Selected Ordered By: Paddy Madsen Miscellaneous Procedure (Order) Location: None Selected Ordered By: Paddy Madsen Referrals: Nephrology [Provider Group] - 2 weeks ([facility] has been contacted with your discharge appointment information. They will cotact you to schedule an appointment. ) [facility] [Outside] [facility] [place]) [Outside] Domenico Munguia MD [Physician] - (Your Dr. Munguia follow up appointment will be scheduled while you are at your Fatou Stewart appointment. Thank you.) Walter Baird DPM [Physician] - 02/20/23 7:45 am (Please arrive 15 min prior to appointment time.) Fatou Stewart FNP [Nurse Practitioner] - 02/21/23 10:00 am Beatriz Brady PA [Primary Care Provider] - 03/14/23 8:40 am Discharge Diet: As Directed and Cardiac Discharge Activity: Limit activity as instructed and As per PT/OT instructions Patient Instructions: Hydrocodone/Acetaminophen (By mouth), Ceftriaxone (By injection), Heart Failure (DC), Dialysis Diet (DC), Peripheral Vascular Angioplasty (DC), Hemodialysis (DC), PICC (Peripherally Inserted [address]) (GEN), CHF Stoplight, Opioid Safety, Post Angiogram Home Care Instructions Activity Restrictions/Additional Instructions: Please maintain low potassium, cardiac diet. Follow-up with cardiology and nephrology in office. Continue IV antibiotic ceftriaxone as per prior plan for 6 weeks. Follow-up with your primary provider as well as podiatry for reassessment. Once antibiotic completed unless it needs to be extended PICC line should be removed. Nonweightbearing right foot at this time until amputation site is healed. Continue to monitor blood pressure 3 times daily, write down values. Continue to optimize risk factors of cardiovascular disease with your primary doctor and cardiology. Please follow-up with cardiology for additional discussion regarding cardiomyopathy and consideration of further evaluation, stress test or other. Seek medical attention in case of any worsening pain or color change in your right lower extremity, any malodorous or purulent appearing drainage, fever, or any other concerning findings, including chest pain pressure, shortness of breath, feeling faint, being unable to urinate, or any other concerns. Discharge Attestations Time Spent in Discharge Care*: greater than 30 min Status at Discharge: Cognitive status at discharge: cognitively intact , Behavioral status at discharge: [facility] , Quality Metrics Clinical Quality Measures [ No reported AMI, CVA or VTE this stay] Coding Level of Care Code 54313 Total time (in minutes) for Discharge: 60 Diagnoses Acute kidney injury superimposed on CKD N17.9; N18.9
[2023-02-17 17:03] LABS: Glucose Point of Care 89 mg/dL (70-110)
== END 2023-02-17 18:13 | disposition home health service (06) | DRG 239 ==
LOC: ER 13:53 → MEDSURG 14:38 → CSU 02-06 08:32
PROVIDERS: Hospitalist; Internal Medicine; Internal Medicine Cardiovascular Disease; Podiatrist Foot & Ankle Surgery; Specialist; Admitting Provider Internal Medicine; Emergency Provider Emergency Medicine; PCP Physician Assistant; Visit Provider Internal Medicine
PROC: 0Y6T0Z0 Detachment at Right 3rd Toe, Complete, Open Approach (ICD-10-PCS; principal; 2023-02-06 07:00)
PROC: B41DYZZ Fluoroscopy of Aorta and Bilateral Lower Extremity Arteries using Other Contrast (ICD-10-PCS; principal; 2023-02-06 08:30)
PROC: 02HV33Z Insertion of Infusion Device into Superior Vena Cava, Percutaneous Approach (ICD-10-PCS; principal; 2023-02-08 14:50)
PROC: 0JQQ0ZZ Repair Right Foot Subcutaneous Tissue and Fascia, Open Approach (ICD-10-PCS; CPT 13160; principal; 2023-02-09 08:00)
PROC: 0Y6M0Z9 Detachment at Right Foot, Partial 1st Ray, Open Approach (ICD-10-PCS; CPT 28805; principal; 2023-02-15 08:00)
DX: E11.52 Type 2 diabetes mellitus with diabetic peripheral angiopathy with gangrene (principal); N17.0 Acute kidney failure with tubular necrosis; B37.49 Other urogenital candidiasis; I96 Gangrene, not elsewhere classified; I13.0 Hypertensive heart and chronic kidney disease with heart failure and stage 1 through stage 4 chronic kidney disease, or unspecified chronic kidney disease; M86.171 Other acute osteomyelitis, right ankle and foot; M86.671 Other chronic osteomyelitis, right ankle and foot; I50.22 Chronic systolic (congestive) heart failure; T81.31XA Disruption of external operation (surgical) wound, not elsewhere classified, initial encounter; Z16.11 Resistance to penicillins; E87.20 Acidosis, unspecified; I47.1 Supraventricular tachycardia; I48.4 Atypical atrial flutter; E11.621 Type 2 diabetes mellitus with foot ulcer; L97.514 Non-pressure chronic ulcer of other part of right foot with necrosis of bone; E11.69 Type 2 diabetes mellitus with other specified complication; E11.42 Type 2 diabetes mellitus with diabetic polyneuropathy; E11.319 Type 2 diabetes mellitus with unspecified diabetic retinopathy without macular edema; E11.22 Type 2 diabetes mellitus with diabetic chronic kidney disease; N18.30 Chronic kidney disease, stage 3 unspecified; T50.8X5A Adverse effect of diagnostic agents, initial encounter; N14.11 Contrast-induced nephropathy; G47.00 Insomnia, unspecified; Z89.411 Acquired absence of right great toe; Z89.421 Acquired absence of other right toe(s); I82.411 Acute embolism and thrombosis of right femoral vein; B95.61 Methicillin susceptible Staphylococcus aureus infection as the cause of diseases classified elsewhere; B96.89 Other specified bacterial agents as the cause of diseases classified elsewhere; I25.10 Atherosclerotic heart disease of native coronary artery without angina pectoris; Z95.5 Presence of coronary angioplasty implant and graft; I25.5 Ischemic cardiomyopathy; T81.82XA Emphysema (subcutaneous) resulting from a procedure, initial encounter; Z79.4 Long term (current) use of insulin; Z79.82 Long term (current) use of aspirin; Z79.891 Long term (current) use of opiate analgesic; K59.00 Constipation, unspecified; E87.5 Hyperkalemia; E78.2 Mixed hyperlipidemia; Z88.0 Allergy status to penicillin; Y83.8 Other surgical procedures as the cause of abnormal reaction of the patient, or of later complication, without mention of misadventure at the time of the procedure
CPT/HCPCS: 36415; 36416; 36569; 71045; 73630; 73718; 75635; 75710; 76770; 76857; 77001; 80048; 80053; 80202; 81001; 82962; 83036; 83605; 83735; 84132; 84484; 85007; 85025; 85378; 85610; 86140; 86706; 87040; 87070; 87077; 87086; 87106; 87176; 87186; 87205; 87340; 88305; 88307; 88311; 90935; 93005; 93306; 96365; 96372; 96376; 97110; 97116; 97161; 97530; 97760; 99152; 99153; 99285; C1752; C1769; C1887; C1894; C9113; J0153; J0696; J1170; J1200; J1644; J1815; J2020; J2250; J2371; J2405; J2704; J2765; J3010; J3370; J3490; J7030; J7050; J7060; L3260; Q3014; Q9967

== ENCOUNTER 2023-02-24 14:50 | Outpatient (CLI) | payer MEDICARE, SELFPAY ==
[2023-02-24 15:23] LABS: Basophils # 0.1 10^3/uL (0.0-0.1); Basophils % 1.1 %; Eosinophils # 0.4 10^3/uL (0.0-0.8); Eosinophils % 3.9 %; Hematocrit 38.5 % (42.0-52.0); Hemoglobin 11.5 g/dL (11.7-16.6); Lymphocytes # 1.7 10^3/uL (0.8-4.8); Lymphocytes % 18.6 %; Mean Corpuscular HGB Conc 29.9 g/dL (30.0-36.0); Mean Corpuscular Hemoglobin 27.8 pg (28.0-34.0); Mean Corpuscular Volume 93.2 fl (80-94); Mean Platelet Volume 9.2 fL (7.4-10.4); Monocytes # 0.5 10^3/uL (0.2-0.9); Monocytes % 5.1 %; Neutrophils # 6.58 10^3/uL (1.8-7.7); Neutrophils % 70.9 %; Nucleated Red Blood Cells % 0 %; Platelet Count 498 10^3/cmm (130-400); Red Blood Count 4.13 10^6/uL (4.1-5.3); Red Cell Distribution Width 14.4 % (12.1-15.1); White Blood Count 9.3 10^3/uL (4.0-10.0)
[2023-02-24 16:13] LABS: Alanine Aminotransferase 8 U/L (0-41); Alkaline Phosphatase 145 U/L (40-130); Anion Gap 15.6 (5-19); Aspartate Amino Transferase 11 U/L (0-40); Blood Urea Nitrogen 23 mg/dL (8-23); Calcium 8.6 mg/dL (8.5-10.5); Carbon Dioxide 30 mmol/L (22-29); Chloride 96 mmol/L (98-107); Globulin 3.4 g/dL (1.3-4.6); Glomerular Filtration Rate 54.6 mL/min (90-130); Glucose 139 mg/dL (65-115); Osmolality Calculated 290 mOsm/kg (285-295); Potassium 4.6 mmol/L (3.5-5.1); Sodium 137 mmol/L (136-145); Total Bilirubin 0.2 mg/dL (0.15-1.2); Total Protein 6.4 g/dL (6.6-8.7)
== END 2023-02-24 14:51 | disposition home or self-care (01) ==
LOC: LAB 14:54
PROVIDERS: PCP Physician Assistant; Visit Provider Physician Assistant
DX: L97.514 Non-pressure chronic ulcer of other part of right foot with necrosis of bone (principal)
CPT/HCPCS: 80053; 85025

== ENCOUNTER 2023-03-03 12:17 | Outpatient (CLI) | payer MEDICARE, SELFPAY ==
[2023-03-03 12:46] LABS: Basophils # 0.1 10^3/uL (0.0-0.1); Basophils % 1.1 %; Eosinophils # 0.2 10^3/uL (0.0-0.8); Eosinophils % 2.4 %; Hematocrit 39.8 % (42.0-52.0); Hemoglobin 11.8 g/dL (11.7-16.6); Lymphocytes # 1.9 10^3/uL (0.8-4.8); Lymphocytes % 29.9 %; Mean Corpuscular HGB Conc 29.6 g/dL (30.0-36.0); Mean Corpuscular Hemoglobin 27.6 pg (28.0-34.0); Mean Platelet Volume 9.2 fL (7.4-10.4); Monocytes # 0.8 10^3/uL (0.2-0.9); Monocytes % 12.5 %; Neutrophils # 3.37 10^3/uL (1.8-7.7); Neutrophils % 53.2 %; Nucleated Red Blood Cells % 0 %; Platelet Count 390 10^3/cmm (130-400); Red Blood Count 4.28 10^6/uL (4.1-5.3); Red Cell Distribution Width 14.9 % (12.1-15.1); White Blood Count 6.3 10^3/uL (4.0-10.0)
[2023-03-03 13:04] LABS: Slide Review Slide Review Perform
[2023-03-03 13:07] LABS: Alanine Aminotransferase 6 U/L (0-41); Albumin Level 2.9 g/dL (3.5-5.2); Alkaline Phosphatase 113 U/L (40-130); Anion Gap 12.3 (5-19); Aspartate Amino Transferase 10 U/L (0-40); Blood Urea Nitrogen 25 mg/dL (8-23); Calcium 8.3 mg/dL (8.5-10.5); Carbon Dioxide 34 mmol/L (22-29); Chloride 100 mmol/L (98-107); Globulin 2.9 g/dL (1.3-4.6); Glomerular Filtration Rate 59.9 mL/min (90-130); Glucose 172 mg/dL (65-115); Osmolality Calculated 302 mOsm/kg (285-295); Potassium 4.3 mmol/L (3.5-5.1); Sodium 142 mmol/L (136-145); Total Bilirubin 0.2 mg/dL (0.15-1.2); Total Protein 5.8 g/dL (6.6-8.7)
== END 2023-03-03 12:18 | disposition home or self-care (01) ==
LOC: LAB 12:18
PROVIDERS: PCP Physician Assistant; Visit Provider Physician Assistant
DX: L97.514 Non-pressure chronic ulcer of other part of right foot with necrosis of bone (principal)
CPT/HCPCS: 80053; 85025

== ENCOUNTER 2023-03-10 11:24 | Outpatient (CLI) | payer MEDICARE, SELFPAY ==
[2023-03-10 11:50] LABS: Basophils # 0.1 10^3/uL (0.0-0.1); Basophils % 0.9 %; Eosinophils % 0.1 %; Hemoglobin 12.7 g/dL (11.7-16.6); Lymphocytes # 2.7 10^3/uL (0.8-4.8); Lymphocytes % 34.8 %; Mean Corpuscular Hemoglobin 28.6 pg (28.0-34.0); Mean Corpuscular Volume 92.3 fl (80-94); Mean Platelet Volume 9.8 fL (7.4-10.4); Monocytes # 0.6 10^3/uL (0.2-0.9); Monocytes % 7.4 %; Neutrophils # 4.32 10^3/uL (1.8-7.7); Neutrophils % 56.4 %; Nucleated Red Blood Cells % 0 %; Platelet Count 283 10^3/cmm (130-400); Red Blood Count 4.44 10^6/uL (4.1-5.3); Red Cell Distribution Width 14.7 % (12.1-15.1); White Blood Count 7.7 10^3/uL (4.0-10.0)
[2023-03-10 12:43] LABS: Slide Review Slide Review Perform
[2023-03-10 12:47] LABS: Alanine Aminotransferase 7 U/L (0-41); Albumin Level 2.9 g/dL (3.5-5.2); Alkaline Phosphatase 97 U/L (40-130); Anion Gap 13.4 (5-19); Aspartate Amino Transferase 13 U/L (0-40); Blood Urea Nitrogen 29 mg/dL (8-23); Calcium 8.2 mg/dL (8.5-10.5); Carbon Dioxide 31 mmol/L (22-29); Chloride 103 mmol/L (98-107); Globulin 2.4 g/dL (1.3-4.6); Glomerular Filtration Rate 54.6 mL/min (90-130); Glucose 85 mg/dL (65-115); Osmolality Calculated 301 mOsm/kg (285-295); Potassium 4.4 mmol/L (3.5-5.1); Sodium 143 mmol/L (136-145); Total Bilirubin 0.2 mg/dL (0.15-1.2); Total Protein 5.3 g/dL (6.6-8.7)
== END 2023-03-10 11:25 | disposition home or self-care (01) ==
LOC: LAB 11:24
PROVIDERS: PCP Physician Assistant; Visit Provider Physician Assistant
DX: L97.514 Non-pressure chronic ulcer of other part of right foot with necrosis of bone (principal)
CPT/HCPCS: 80053; 85025

== ENCOUNTER 2023-03-17 13:06 | Outpatient (CLI) | payer MEDICARE, SELFPAY ==
[2023-03-17 13:37] LABS: Basophils # 0.1 10^3/uL (0.0-0.1); Basophils % 1.1 %; Hematocrit 43.6 % (42.0-52.0); Hemoglobin 13.1 g/dL (11.7-16.6); Lymphocytes # 2.8 10^3/uL (0.8-4.8); Mean Corpuscular Hemoglobin 28.1 pg (28.0-34.0); Mean Corpuscular Volume 93.6 fl (80-94); Mean Platelet Volume 9.6 fL (7.4-10.4); Monocytes # 0.5 10^3/uL (0.2-0.9); Monocytes % 5.5 %; Neutrophils # 5.67 10^3/uL (1.8-7.7); Neutrophils % 62.2 %; Nucleated Red Blood Cells % 0 %; Platelet Count 253 10^3/cmm (130-400); Red Blood Count 4.66 10^6/uL (4.1-5.3); Red Cell Distribution Width 14.6 % (12.1-15.1); White Blood Count 9.1 10^3/uL (4.0-10.0)
[2023-03-17 13:56] LABS: Slide Review Slide Review Perform
[2023-03-17 14:07] LABS: Alanine Aminotransferase 9 U/L (0-41); Albumin Level 3.4 g/dL (3.5-5.2); Alkaline Phosphatase 94 U/L (40-130); Anion Gap 15.3 (5-19); Aspartate Amino Transferase 12 U/L (0-40); Blood Urea Nitrogen 37 mg/dL (8-23); Calcium 8.6 mg/dL (8.5-10.5); Carbon Dioxide 33 mmol/L (22-29); Chloride 103 mmol/L (98-107); Globulin 2.4 g/dL (1.3-4.6); Glomerular Filtration Rate 59.9 mL/min (90-130); Glucose 139 mg/dL (65-115); Osmolality Calculated 313 mOsm/kg (285-295); Potassium 5.3 mmol/L (3.5-5.1); Sodium 146 mmol/L (136-145); Total Bilirubin 0.3 mg/dL (0.15-1.2); Total Protein 5.8 g/dL (6.6-8.7)
== END 2023-03-17 13:07 | disposition home or self-care (01) ==
LOC: LAB 13:07
PROVIDERS: PCP Physician Assistant; Visit Provider Physician Assistant
DX: L97.514 Non-pressure chronic ulcer of other part of right foot with necrosis of bone (principal)
CPT/HCPCS: 80053; 85025

== ENCOUNTER 2023-03-25 17:23 | Outpatient (CLI) | payer MEDICARE, SELFPAY ==
[2023-03-25 17:57] LABS: Basophils # 0.1 10^3/uL (0.0-0.1); Basophils % 0.9 %; Hematocrit 45.9 % (37-53); Lymphocytes % 29.5 %; Mean Corpuscular HGB Conc 30.1 g/dL (30-55); Mean Corpuscular Hemoglobin 28.7 pg (27-33); Mean Corpuscular Volume 95.4 fl (82-101); Mean Platelet Volume 9.9 fL (7.4-10.4); Monocytes # 0.6 10^3/uL (0.2-0.9); Monocytes % 5.5 %; Neutrophils # 6.42 10^3/uL (1.8-7.7); Neutrophils % 63.8 %; Nucleated Red Blood Cells % 0 %; Platelet Count 252 10^3/cmm (157-399); Red Blood Count 4.81 10^6/uL (3.85-5.65); Red Cell Distribution Width 14.6 % (12.1-15.1); White Blood Count 10.06 10^3/uL (3.29-11.43)
[2023-03-25 18:00] LABS: Erythrocyte Sedimentation Rate 10 mm/hr (0-10)
[2023-03-25 18:23] LABS: Slide Review Slide Review Perform
[2023-03-25 18:25] LABS: Alanine Aminotransferase 12 U/L (0-41); Albumin Level 3.6 g/dL (3.5-5.2); Alkaline Phosphatase 91 U/L (40-130); Anion Gap 13.6 (5-19); Aspartate Amino Transferase 12 U/L (0-40); Blood Urea Nitrogen 39 mg/dL (8-23); Calcium 8.5 mg/dL (8.5-10.5); Carbon Dioxide 35 mmol/L (22-29); Chloride 104 mmol/L (98-107); Globulin 2.3 g/dL (1.3-4.6); Glomerular Filtration Rate 54.6 mL/min (90-130); Glucose 151 mg/dL (65-115); Osmolality Calculated 318 mOsm/kg (285-295); Potassium 4.6 mmol/L (3.5-5.1); Sodium 148 mmol/L (136-145); Total Bilirubin 0.2 mg/dL (0.15-1.2); Total Protein 5.9 g/dL (6.6-8.7)
== END 2023-03-25 17:24 | disposition home or self-care (01) ==
PROVIDERS: Podiatrist Foot & Ankle Surgery; PCP Physician Assistant; Visit Provider Physician Assistant
DX: L97.514 Non-pressure chronic ulcer of other part of right foot with necrosis of bone (principal); Z89.439 Acquired absence of unspecified foot
CPT/HCPCS: 80053; 85025; 85651; 86140

== ENCOUNTER → 2023-03-26 08:56 | Outpatient (BNVA) | payer MEDICARE, SELFPAY | PROVIDERS: PCP Physician Assistant; Visit Provider Podiatrist Foot & Ankle Surgery | DX: E11.51 Type 2 diabetes mellitus with diabetic peripheral angiopathy without gangrene; I73.9 Peripheral vascular disease, unspecified; N18.9 Chronic kidney disease, unspecified; Z89.431 Acquired absence of right foot; Z79.4 Long term (current) use of insulin; E11.22 Type 2 diabetes mellitus with diabetic chronic kidney disease | CPT/HCPCS: 73630 ==

== ENCOUNTER 2023-03-26 11:17 | Outpatient (CLI) | payer MEDICARE, SELFPAY | END 2023-03-26 11:18 | disposition home or self-care (01) | LOC: SPT 11:18 | PROVIDERS: PCP Physician Assistant; Visit Provider Podiatrist Foot & Ankle Surgery | DX: Z46.89 Encounter for fitting and adjustment of other specified devices (principal); E11.51 Type 2 diabetes mellitus with diabetic peripheral angiopathy without gangrene; I73.9 Peripheral vascular disease, unspecified; Z79.4 Long term (current) use of insulin; Z89.431 Acquired absence of right foot; E11.22 Type 2 diabetes mellitus with diabetic chronic kidney disease; N18.9 Chronic kidney disease, unspecified | CPT/HCPCS: 97760; 99024; L4361 ==

== ENCOUNTER → 2023-04-16 11:36 | Outpatient (BNVA) | payer MEDICARE, SELFPAY | PROVIDERS: PCP Physician Assistant; Visit Provider Internal Medicine Cardiovascular Disease | DX: I73.9 Peripheral vascular disease, unspecified (principal); E11.51 Type 2 diabetes mellitus with diabetic peripheral angiopathy without gangrene; I13.0 Hypertensive heart and chronic kidney disease with heart failure and stage 1 through stage 4 chronic kidney disease, or unspecified chronic kidney disease; E11.22 Type 2 diabetes mellitus with diabetic chronic kidney disease; I50.20 Unspecified systolic (congestive) heart failure; N18.9 Chronic kidney disease, unspecified; N17.9 Acute kidney failure, unspecified; Z89.439 Acquired absence of unspecified foot; I47.1 Supraventricular tachycardia; N14.11 Contrast-induced nephropathy; R06.09 Other forms of dyspnea; I25.5 Ischemic cardiomyopathy; Z89.421 Acquired absence of other right toe(s); I48.3 Typical atrial flutter; I25.118 Atherosclerotic heart disease of native coronary artery with other forms of angina pectoris; G62.9 Polyneuropathy, unspecified; Z79.4 Long term (current) use of insulin | CPT/HCPCS: 99215 ==

== ENCOUNTER → 2023-04-28 16:15 | Outpatient (BNVA) | payer MEDICARE, SELFPAY | PROVIDERS: PCP Physician Assistant; Visit Provider Podiatrist Foot & Ankle Surgery | DX: I73.9 Peripheral vascular disease, unspecified; Z89.431 Acquired absence of right foot; Z98.890 Other specified postprocedural states; E11.51 Type 2 diabetes mellitus with diabetic peripheral angiopathy without gangrene; E11.22 Type 2 diabetes mellitus with diabetic chronic kidney disease; N18.9 Chronic kidney disease, unspecified; Z79.4 Long term (current) use of insulin | CPT/HCPCS: 73630; 99024 ==

== ENCOUNTER → 2023-05-27 15:33 | Outpatient (BNVA) | payer MEDICARE, SELFPAY | PROVIDERS: PCP Physician Assistant; Visit Provider Podiatrist Foot & Ankle Surgery | DX: Z89.431 Acquired absence of right foot (principal); E11.51 Type 2 diabetes mellitus with diabetic peripheral angiopathy without gangrene; I73.9 Peripheral vascular disease, unspecified; N18.9 Chronic kidney disease, unspecified; E11.22 Type 2 diabetes mellitus with diabetic chronic kidney disease; Z79.4 Long term (current) use of insulin | CPT/HCPCS: 99213 ==

== ENCOUNTER 2023-07-01 15:24 | Inpatient (IN) | payer MEDICARE, SELFPAY ==
[2023-07-01] VITALS (18 sets, daily range): BP systolic 107–156; BP diastolic 57–103; PULSE 72–83; RESP 14–20; TEMP 36.3; O2SAT 94–98
--- NOTE | 2023-07-01 15:55 | XRR_ITS ---
PROCEDURE INFORMATION: Exam: XR Chest Exam date and time: 07/01/2023 4:11 PM Age: 73 years old Clinical indication: Cough and dyspnea; Additional info: Dyspnea/cough TECHNIQUE: Imaging protocol: Radiologic exam of the chest. Views: 1 view. COMPARISON: CR XR chest 1V portable [id number] 02/12/2023 2:11 PM FINDINGS: Lungs: Air-fluid level projecting over the right lower chest. Pleural spaces: Unremarkable. No pleural effusion. No pneumothorax. Heart/Mediastinum: Unremarkable. No cardiomegaly. Bones/joints: Unremarkable. XR/XR chest 1V portable [id number] IMPRESSION: Air-fluid level projecting over the right lower chest. This is a new finding most likely reflecting either a hiatal hernia, pulmonary abscess, or interposed colon.
--- NOTE | 2023-07-01 15:56 | ED_ITS ---
HPI - Recheck/Abnormal Lab/Rx General: Chief Complaint: Recheck/Abnormal Lab/Rx Stated Complaint: sent down, low 02 stats, chills Time Seen by Provider: 07/01/23 15:54 PFSH ED PFSH: Medical History Amputation toe Atherosclerosis of coronary artery CKD (chronic kidney disease) Diabetes Diabetes mellitus with peripheral vascular disease Diabetic neuropathy Diabetic ulcer of right foot Gangrenous toe HTN (hypertension) Ischemic cardiomyopathy Kidney stone Non-healing ulcer Pleural effusion, left SVT (supraventricular tachycardia) Systolic heart failure Surgical History H/O chest tube placement S/P cataract extraction S/P cholecystectomy S/P tonsillectomy Family History Father Cancer LUNG Mother CAD (coronary artery disease) Diabetes CHF (congestive heart failure) Myocardial infarction Social History Smoking and tobacco/nicotine status: never used tobacco/nicotine Alcohol intake: never Substance/Drug Use: never Household members: spouse Marital status: Current occupational status: retired Course Vital Signs: Vital signs: Vital Signs Temperature 97.4 F L 07/01/23 15:35 Pulse Rate 83 07/01/23 15:35 Respiratory Rate 18 07/01/23 15:35 Blood Pressure 151/72 07/01/23 15:35 Pulse Oximetry 96 07/01/23 15:35 Oxygen Delivery Me thod Room Air 07/01/23 15:35 Discharge Plan Discharge Condition: Stable Prescriptions: No Action garlic 1,000 mg capsule 1,000 mg PO BEDTIME mirtazapine [Remeron] 15 mg tablet 15 mg PO DAILY Qty: 30 0RF (DME) [place] Boot to the right See Rx Instructions .Route .MEDSUPPLY Qty: 1 0RF Rx Instructions: As directed furosemide 40 mg tablet 40 mg PO QAM Hold Instructions: Resume on 10/21/21. (DME) [place] to Right Lower Extremity See Rx Instructions .Route .MEDSUPPLY Qty: 1 0RF Rx Instructions: As directed [place] Bull Novolin R Regular U100 Insulin 100 unit/mL Solution See Rx Instructions .ROUTE .COMPLEX Rx Instructions: sliding scale three times a day as needed Nitrostat 0.4 mg Tablet, Sublingual 0.4 mg SUBLINGUAL Q5M PRN (Reason: Chest Pain) Rx Instructions: do not exceed 3 doses per episode [place] tejada 500 mg Capsule 500 mg PO BID Levemir FlexPen 100 unit/mL (3 mL) insulin pen 36 unit SUBCUT QAM [place] Thyroid 60 mg tablet 60 mg PO QAM magnesium oxide 400 mg magnesium Capsule 400 mg PO QPM NAC 600 mg Capsule 600 mg PO DAILY resveratrol 100 mg Capsule 100 mg PO BID Clean Spleen Capsules 1 cap PO DAILY Dna Insulin Drops 10 drp buccal BID [place] Drops See Rx Instructions .ROUTE .COMPLEX Rx Instructions: one dropperful twice a day aspirin 81 mg tablet,delayed release (DR/EC) 81 mg PO BEDTIME Vitamin B Complex Liquid See Rx Instructions .ROUTE .COMPLEX Rx Instructions: one dropperful once a day tramadol 50 mg tablet 50 mg PO BEDTIME Referrals: Beatriz Brady PA [Primary Care Provider] - Coding Level of Care Code ED [employer] Instructor for Abdirizak Zhou
--- NOTE | 2023-07-01 15:58 | ED_ITS ---
Documented by User: Garrett Martinezgustavolorena, DO 07/08/23 07:51 HPI - SOB/Dyspnea 2 General: Chief Complaint: Recheck/Abnormal Lab/Rx Stated Complaint: Baird sent down, low 02 stats, chills Time Seen by Provider: 07/01/23 15:54 Source: patient Mode of arrival: ambulatory History of Present Illness: HPI Narrative: 73-year-old male presents emergency room via his [employer] office he was there today and they noted to have hypoxia with sats reported in the 80s. He has not had any fever sweats or chills. He has been immobile since he had a surgical procedure done his right foot with transmetatarsal amputation. He has been sitting quite a bit and has noticed increased swelling. They have been wrapping his legs he has developed some fluid blisters on his light left leg that have deroofed and drained Dr. Baird wrap of those today. He denies any chest pain. He is somewhat short of breath with even repositioning in the bed. MD elicited complaint: shortness of breath and cough Associated symptoms: Deny abdominal pain, chest congestion, chest pain, cough, diaphoresis, dizziness, extremity pain, fever(s), hemoptysis, lightheadedness, myalgias, nausea, orthopnea, palpitations, paresthesias, polydipsia, polyuria, rash, sense of impending doom, syncope or vomiting Review of Systems 2 Const: Denies: fever(s), chills or diaphoresis Card: Denies: chest pain, palpitations, lightheadedness, syncope or orthopnea Resp: Denies: dyspnea, hemoptysis or chest congestion GI: Denies: abdominal pain, nausea or vomiting : Denies: dysuria, urinary frequency or urinary urgency Musc: Denies: neck pain, back pain or extremity pain Skin/Breast: Denies: rash Neuro: Denies: dizziness Endo: Denies: polyuria or polydipsia PFSH ED 2 PFSH: Medical History SVT (supraventricular tachycardia) Gangrenous toe CKD (chronic kidney disease) Systolic heart failure Pleural effusion, left Non-healing ulcer Ischemic cardiomyopathy Diabetic ulcer of right foot Atherosclerosis of coronary artery Kidney stone Amputation toe Diabetes mellitus with peripheral vascular disease Diabetic neuropathy HTN (hypertension) Diabetes Surgical History H/O chest tube placement S/P cholecystectomy S/P tonsillectomy S/P cataract extraction Family History Father Cancer LUNG Mother CAD (coronary artery disease) Diabetes CHF (congestive heart failure) Myocardial infarction Social History Smoking and tobacco/nicotine status: never used tobacco/nicotine Alcohol intake: never Substance/Drug Use: never Household members: spouse Marital status: Current occupational status: retired Physical Exam 2 Const: GENERAL APPEARANCE: cooperative and comfortable O RIENTATION/CONSCIOUSNESS: Yes awake, Yes oriented to person, Yes oriented to place and Yes oriented to time HENMT: COMMON NORMALS: normocephalic, atraumatic and hearing grossly normal bilaterally HEAD & SCALP: normocephalic and atraumatic Resp: COMMON NORMALS: normal respiratory effort, No retractions, No use of accessory muscles and clear to auscultation bilaterally AUSCULTATION: clear to auscultation bilaterally Cardio: COMMON NORMALS: regular rate, regular rhythm and No murmurs present (Cardio) RATE: regular rate RHYTHM: regular rhythm GI: COMMON NORMALS: Soft to palpation and No hepatosplenomegaly present A USCULTATION: Yes normoactive bowel sounds PALPATION: Yes Soft to palpation, No Tenderness to palpation present (GI), No Guarding due to palpation present (GI) and Yes No hepatosplenomegaly present Extremity: OTHER: 2+ edema of the left lower extremity wit h skin breakdown and deroofed ulcers. It is red and inflamed warm to the touch in the distal forefoot with slow capillary refill. Neuro: SENSORIUM/ORIENTATION: Yes oriented to person, Yes oriented to place and Yes oriented to time Skin: COMMON NORMALS: no rashes or lesions noted GENERAL SKIN EXAM: no rashes or lesions noted Course 2 Vital Signs: Vital signs: Vital Signs Temperature 98.5 F 07/08/23 04:14 Pulse Rate 75 07/08/23 06:00 Respiratory Rate 25 H 07/08/23 04:17 Blood Pressure 114/67 07/08/23 04:14 Pulse Oximetry 90 07/08/23 04:17 Oxygen Delivery Me thod Nasal Cannula 07/07/23 20:22 Oxygen Flow Rate 2 07/07/23 20:22 Fraction of Inspir ed Oxygen 35 07/07/23 04:00 MDM - SOB/Dyspnea Medical Decision Making Patient initially seen and evaluated, labs pending at change of shift. Care signed out to Dr. Nunez at change of shift. See final notes for diagnosis and disposition. Patient presents here with history of peripheral vascular disease along with chronic kidney disease he has acute kidney injury here his BUN and creatinine is elevated he also has hyperkalemia I did give him insulin D50 along with calcium spoke to hospitalist will admit to the ICU at this time he had a pleural effusion noted as well did have blood cultures drawn and antibiotics he is not febrile here. Lab Data 07/08/23 07:00 07/08/23 07:00 Labs/Radiology: Radiology Impressions Chest CT 07/01/23 16:58 IMPRESSION: 1. Moderate volume right pleural effusion, with right basilar atelectasis, and patulous atelectasis of the right middle lobe. No pulmonary abscess. 2. Mild cardiomegaly. Chest X-Ray 07/06/23 07:00 IMPRESSION: Bilateral predominantly perihilar and lower lobe opacities. There are bilateral pleural effusions. Findings may be seen with pulmonary edema or pneumonia. Laboratory Results WBC 11.85 10^3/uL (3.29-11.43) H 07/01/23 16:24 RBC 5.19 10^6/uL (3.85-5.65) 07/01/23 16:24 Hgb 13.50 g/dL (11.27-16.99) 07/01/23 16:24 Hct 47.1 % (37-53) 07/01/23 16:24 MCV 90.8 fl (82-101) 07/01/23 16:24 MCH 26.0 pg (27-33) L 07/01/23 16:24 MCHC 28.7 g/dL (30-55) L 07/01/23 16:24 RDW 15.6 % (12.1-15.1) H 07/01/23 16:24 Plt Count 187 10^3/cmm (157-399) 07/01/23 16:24 MPV 9.9 fL (7.4-10.4) 07/01/23 16: Neut % (Auto) 59.8 % 07/01/23 16:24 Lymph % (Auto) 32.0 % 07/01/23 16:24 Marshall % (Auto) 5.8 % 07/01/23 16:24 Eos % (Auto) 1.7 % 07/01/23 16:24 Baso % (Auto) 0.5 % 07/01/23 16:24 Neut # (Auto) 7.09 10^3/uL (1.8-7.7) 07/01/23 16:24 Lymph # (Auto) 3.8 10^3/uL (0.8-4.8) 07/01/23 16:24 Marshall # (Auto) 0.7 10^3/uL (0.2-0.9) 07/01/23 16:24 Eos # (Auto) 0.2 10^3/uL (0.0-0.8) 07/01/23 16:24 Baso # (Auto) 0.1 10^3/uL (0.0-0.1) 07/01/23 16:24 Nucleated RBC % (auto) 0 % 07/01/23 16: Nucleated RBCs # 0.0 /100WBC 07/01/23 16:24 Specimen Type Arterial 07/01/23 23:25 Sample Site Radial, right 07/01/23 23:25 ABG pH 7.39 (7.35-7.45) 07/01/23 23:25 ABG pCO2 54.9 mmHg (35-45) H 07/01/23 23:25 ABG pO2 120.0 mmHg (80.0-100.0) H 07/01/23 23:25 ABG PO2/FiO2 Ratio 0 07/01/23 23:25 ABG HCO3 32.9 mmol/L (22-26) H 07/01/23 23:25 ABG O2 Saturation 98.6 07/01/23 23:25 ABG Base Excess 6.3 mmol/L (-2.0-2.0) H 07/01/23 23:25 Peter Test Pos 07/01/23 23:25 A-a O2 Gradient 3.5 mmHg (5-10) L 07/01/23 23:25 Hematocrit 38.8 % (42-52) L 07/01/23 23:25 Hgb O2 Saturation 96.8 % (95-100) 07/01/23 23:25 Carboxyhemoglobin 1.2 %THgb (0.4-20.1) 07/01/23 23:25 Methemoglobin 0.6 % (0.4-1.5) 07/01/23 23:25 Total Hemoglobin 12.7 g/dL (14-18) L 07/01/23 23:25 Sodium 143.0 mmol/L (131-143) 07/01/23 23:25 Potassium 5.6 mmol/L (3.5-5.0) H 07/01/23 23:25 Glucose 80.0 mg/dL (70-115) 07/01/23 23:25 Ionized Calcium 1.1 mmol/L (1.1-1.4) 07/01/23 23:25 O2 Delivery Device Bipap 07/01/23 23:25 O2 Liters/Min 1.5 % 07/01/23 21:34 FiO2 30.0 % 07/01/23 23:25 Tidal Volume 0.45 07/01/23 23:25 PEEP 8.0 cmH20 07/01/23 23:25 Electric Brain Wave Equipment Mechanic ID [email or web address] 07/01/23 23:25 Sodium 144 mmol/L (136-145) 07/01/23 22:19 Potassium 6.3 mmol/L (3.5-5.1) H 07/01/23 22:19 Chloride 106 mmol/L (98-107) 07/01/23 22:19 Carbon Dioxide 32 mmol/L (22-29) H 07/01/23 22:19 Anion Gap 12.3 (5-19) 07/01/23 22:19 BUN 86 mg/dL (8-23) H* 07/01/23 22:19 Creatinine 3.2 mg/dL (0.7-1.2) H 07/01/23 22:19 GFR Calculation Not Reportable 07/01/23 22:19 Glucose 78 mg/dL (65-115) 07/01/23 22:19 POC Glucose 96 mg/dL (70-110) 07/01/23 23:35 Calculated Osmolality 323 mOsm/kg (285-295) H 07/01/23 22:19 Lactic Acid 0.9 mmol/L (0.5-2.2) 07/01/23 16:53 Calcium 7.6 mg/dL (8.5-10.5) L 07/01/23 22:19 Total Bilirubin 0.3 mg/dL (0.15-1.2) 07/01/23 16:24 AST 12 U/L (0-40) 07/01/23 16:24 ALT 17 U/L (0-41) 07/01/23 16:24 Alkaline Phosphatase 109 U/L (40-130) 07/01/23 16:24 C-Reactive Protein 3.0 mg/L (0.0-4.9) 07/01/23 16:53 NT-Pro-B Natriuret Pep 38558 pg/mL (0-125) H 07/01/23 16:53 Total Protein 5.8 g/dL (6.6-8.7) L 07/01/23 16:24 Albumin 3.6 g/dL (3.5-5.2) 07/01/23 16:24 Globulin 2.2 g/dL (1.3-4.6) 07/01/23 16:24 Discharge Plan Discharge Patient Disposition: Admitted As Inpatient Admit Provider: Arnulfo Frances Clinical Impression: Acute kidney injury, Acute hyperkalemia, Pleural effusion, History of amputation of toe, Diabetes mellitus with chronic kidney disease Condition: Stable Coding Level of Care Code ED Bench Assembl[employer] for [employer]g Fwd Documented by User: Silvia Nunez MD 07/01/23 19:27 HPI - SOB/Dyspnea 2 General: Chief Complaint: Recheck/Abnormal Lab/Rx Stated Complaint: Baird sent down, low 02 stats, chills Time Seen by Provider: 07/01/23 15:54 PFSH ED 2 PFSH: Medical History SVT (supraventricular tachycardia) Gangrenous toe CKD (chronic kidney disease) Systolic heart failure Pleural effusion, left Non-healing ulcer Ischemic cardiomyopathy Diabetic ulcer of right foot Atherosclerosis of coronary artery Kidney stone Amputation toe Diabetes mellitus with peripheral vascular disease Diabetic neuropathy HTN (hypertension) Diabetes Surgical History H/O chest tube placement S/P cholecystectomy S/P tonsillectomy S/P cataract extraction Family History Father Cancer LUNG Mother CAD (coronary artery disease) Diabetes CHF (congestive heart failure) Myocardial infarction Social History Smoking and tobacco/nicotine status: never used tobacco/nicotine Alcohol intake: never Substance/Drug Use: never Household members: spouse Marital status: Current occupational status: retired Course 2 Vital Signs: Vital signs: Vital Signs Temperature 98.5 F 07/08/23 04:14 Pulse Rate 75 07/08/23 06:00 Respiratory Rate 25 H 07/08/23 04:17 Blood Pressure 114/67 07/08/23 04:14 Pulse Oximetry 90 07/08/23 04:17 Oxygen Delivery Me thod Nasal Cannula 07/07/23 20:22 Oxygen Flow Rate 2 07/07/23 20:22 Fraction of Inspir ed Oxygen 35 07/07/23 04:00 MDM - SOB/Dyspnea Medical Decision Making Patient presents here with history of peripheral vascular disease along with chronic kidney disease he has acute kidney injury here his BUN and creatinine is elevated he also has hyperkalemia I did give him insulin D50 along with calcium spoke to hospitalist will admit to the ICU at this time he had a pleural effusion noted as well did have blood cultures drawn and antibiotics he is not febrile here. Medical Records I reviewed the patient's medical records. Lab Data I reviewed the patient's lab results. 07/08/23 07:00 07/08/23 07:00 Labs/Radiology: Radiology Impressions Chest CT 07/01/23 16:58 IMPRESSION: 1. Moderate volume right pleural effusion, with right basilar atelectasis, and patulous atelectasis of the right middle lobe. No pulmonary abscess. 2. Mild cardiomegaly. Chest X-Ray 07/06/23 07:00 IMPRESSION: Bilateral predominantly perihilar and lower lobe opacities. There are bilateral pleural effusions. Findings may be seen with pulmonary edema or pneumonia. Laboratory Results WBC 11.85 10^3/uL (3.29-11.43) H 07/01/23 16:24 RBC 5.19 10^6/uL (3.85-5.65) 07/01/23 16:24 Hgb 13.50 g/dL (11.27-16.99) 07/01/23 16:24 Hct 47.1 % (37-53) 07/01/23 16:24 MCV 90.8 fl (82-101) 07/01/23 16:24 MCH 26.0 pg (27-33) L 07/01/23 16:24 MCHC 28.7 g/dL (30-55) L 07/01/23 16:24 RDW 15.6 % (12.1-15.1) H 07/01/23 16:24 Plt Count 187 10^3/cmm (157-399) 07/01/23 16:24 MPV 9.9 fL (7.4-10.4) 07/01/23 16:24 Neut % (Auto) 59.8 % 07/01/23 16:24 Lymph % (Auto) 32.0 % 07/01/23 16:24 Marshall % (Auto) 5.8 % 07/01/23 16:24 Eos % (Auto) 1.7 % 07/01/23 16:24 Baso % (Auto) 0.5 % 07/01/23 16: Neut # (Auto) 7.09 10^3/uL (1.8-7.7) 07/01/23 16:24 Lymph # (Auto) 3.8 10^3/uL (0.8-4.8) 07/01/23 16:24 Marshall # (Auto) 0.7 10^3/uL (0.2-0.9) 07/01/23 16:24 Eos # (Auto) 0.2 10^3/uL (0.0-0.8) 07/01/23 16:24 Baso # (Auto) 0.1 10^3/uL (0.0-0.1) 07/01/23 16:24 Nucleated RBC % (auto) 0 % 07/01/23 16:24 Nucleated RBCs # 0.0 /100WBC 07/01/23 16:24 Specimen Type Arterial 07/01/23 23:25 Sample Site Radial, right 07/01/23 23:25 ABG pH 7.39 (7.35-7.45) 07/01/23 23:25 ABG pCO2 54.9 mmHg (35-45) H 07/01/23 23:25 ABG pO2 120.0 mmHg (80.0-100.0) H 07/01/23 23:25 ABG PO2/FiO2 Ratio 0 07/01/23 23:25 ABG HCO3 32.9 mmol/L (22-26) H 07/01/23 23:25 ABG O2 Saturation 98.6 07/01/23 23:25 ABG Base Excess 6.3 mmol/L (-2.0-2.0) H 07/01/23 23:25 Peter Test Pos 07/01/23 23:25 A-a O2 Gradient 3.5 mmHg (5-10) L 07/01/23 23:25 Hematocrit 38.8 % (42-52) L 07/01/23 23:25 Hgb O2 Saturation 96.8 % (95-100) 07/01/23 23:25 Carboxyhemoglobin 1.2 %THgb (0.4-20.1) 07/01/23 23:25 Methemoglobin 0.6 % (0.4-1.5) 07/01/23 23:25 Total Hemoglobin 12.7 g/dL (14-18) L 07/01/23 23:25 Sodium 143.0 mmol/L (131-143) 07/01/23 23:25 Potassium 5.6 mmol/L (3.5-5.0) H 07/01/23 23:25 Glucose 80.0 mg/dL (70-115) 07/01/23 23:25 Ionized Calcium 1.1 mmol/L (1.1-1.4) 07/01/23 23:25 O2 Delivery Device Bipap 07/01/23 23:25 O2 Liters/Min 1.5 % 07/01/23 21:34 FiO2 30.0 % 07/01/23 23:25 Tidal Volume 0.45 07/01/23 23:25 PEEP 8.0 cmH20 07/01/23 23:25 Electric Brain Wave Equipment Mechanic ID [email or web address] 07/01/23 23:25 Sodium 144 mmol/L (136-145) 07/01/23 22:19 Potassium 6.3 mmol/L (3.5-5.1) H 07/01/23 22:19 Chloride 106 mmol/L (98-107) 07/01/23 22:19 Carbon Dioxide 32 mmol/L (22-29) H 07/01/23 22:19 Anion Gap 12.3 (5-19) 07/01/23 22:19 BUN 86 mg/dL (8-23) H* 07/01/23 22:19 Creatinine 3.2 mg/dL (0.7-1.2) H 07/01/23 22:19 GFR Calculation Not Reportable 07/01/23 22:19 Glucose 78 mg/dL (65-115) 07/01/23 22:19 POC Glucose 96 mg/dL (70-110) 07/01/23 23:35 Calculated Osmolality 323 mOsm/kg (285-295) H 07/01/23 22:19 Lactic Acid 0.9 mmol/L (0.5-2.2) 07/01/23 16:53 Calcium 7.6 mg/dL (8.5-10.5) L 07/01/23 22:19 Total Bilirubin 0.3 mg/dL (0.15-1.2) 07/01/23 16:24 AST 12 U/L (0-40) 07/01/23 16:24 ALT 17 U/L (0-41) 07/01/23 16:24 Alkaline Phosphatase 109 U/L (40-130) 07/01/23 16:24 C-Reactive Protein 3.0 mg/L (0.0-4.9) 07/01/23 16:53 NT-Pro-B Natriuret Pep 23641 pg/mL (0-125) H 07/01/23 16:53 Total Protein 5.8 g/dL (6.6-8.7) L 07/01/23 16:24 Albumin 3.6 g/dL (3.5-5.2) 07/01/23 16:24 Globulin 2.2 g/dL (1.3-4.6) 07/01/23 16:24 All radiology interpretation(s) finalized by discharge Critical Care Time 2 Critical Care Time: Critical Care Time: Yes Total Critical Care Time: 40 Attestation: The high probability of a clinically significant, sudden or life threatening deterioration of the patient's renal system(s) required my full and direct attention, intervention and personal management. The critical care time is as shown. This time is in addition to time spent performing any reported procedures but includes the following: [x] Data and vital sign review and interpretation [x] Patient assessment, examination and intervention [x] Documentation [x] Medication orders and management Discharge Plan Discharge Patient Disposition: Admitted As Inpatient Admit Provider: Arnulfo Frances Clinical Impression: Acute kidney injury, Acute hyperkalemia, Pleural effusion, History of amputation of toe, Diabetes mellitus with chronic kidney disease Condition: Stable Coding Level of Care Code ED Bench Assembler Electrical for Abdirizak Zhou
[2023-07-01 16:38] LABS: Basophils # 0.1 10^3/uL (0.0-0.1); Basophils % 0.5 %; Eosinophils # 0.2 10^3/uL (0.0-0.8); Eosinophils % 1.7 %; Hematocrit 47.1 % (37-53); Lymphocytes # 3.8 10^3/uL (0.8-4.8); Mean Corpuscular HGB Conc 28.7 g/dL (30-55); Mean Corpuscular Volume 90.8 fl (82-101); Mean Platelet Volume 9.9 fL (7.4-10.4); Monocytes # 0.7 10^3/uL (0.2-0.9); Monocytes % 5.8 %; Neutrophils # 7.09 10^3/uL (1.8-7.7); Neutrophils % 59.8 %; Nucleated Red Blood Cells % 0 %; Platelet Count 187 10^3/cmm (157-399); Red Blood Count 5.19 10^6/uL (3.85-5.65); Red Cell Distribution Width 15.6 % (12.1-15.1); White Blood Count 11.85 10^3/uL (3.29-11.43)
--- NOTE | 2023-07-01 16:58 | CTR_ITS ---
PROCEDURE INFORMATION: Exam: CT Chest Without Contrast; Diagnostic Exam date and time: 07/01/2023 6:24 PM Age: 73 years old Clinical indication: Shortness of breath; Additional info: Hypoxic TECHNIQUE: Imaging protocol: Diagnostic computed tomography of the chest without contrast. Radiation optimization: All CT scans at this facility use at least one of these dose optimization techniques: automated exposure control; mA and/or kV adjustment per patient size (includes targeted exams where dose is matched to clinical indication); or iterative reconstruction. REPORTING DATA: Count of CT and Cardiac NM exams in prior 12 months: This patient has received 2 known CTs and 0 known cardiac nuclear medicine studies in the 12 months prior to the current study. COMPARISON: CT angio chest PE protcl [id number] 09/22/2022 6:48 PM RADIATION DOSE METRICS: Total DLP (mGy-cm): 609 FINDINGS: Lungs: Right basilar atelectasis adjacent to the effusion and streaky atelectasis in the right middle lobe. Subsegmental atelectasis in the left lower lung. No pulmonary abscess. Pleural spaces: Moderate volume right pleural effusion with fluid within the pulmonary fissure which along with the atelectasis in the right lower and middle lobes are contributing to the appearance of an air-fluid artifact on prior radiographs. Heart: Coronary artery calcifications noted. Mild cardiomegaly. Lymph nodes: Unremarkable. No enlarged lymph nodes. Vasculature: Unremarkable. No aortic aneurysm. Bones/joints: Unremarkable. No acute fracture. Soft tissues: Unremarkable. CT/CT chest [facility] [id number] IMPRESSION: 1. Moderate volume right pleural effusion, with right basilar atelectasis, and patulous atelectasis of the right middle lobe. No pulmonary abscess. 2. Mild cardiomegaly.
[2023-07-01 17:15] LABS: Alanine Aminotransferase 17 U/L (0-41); Albumin Level 3.6 g/dL (3.5-5.2); Alkaline Phosphatase 109 U/L (40-130); Anion Gap 16.7 (5-19); Aspartate Amino Transferase 12 U/L (0-40); Calcium 7.9 mg/dL (8.5-10.5); Carbon Dioxide 31 mmol/L (22-29); Chloride 102 mmol/L (98-107); Globulin 2.2 g/dL (1.3-4.6); Glucose 64 mg/dL (65-115); Osmolality Calculated 322 mOsm/kg (285-295); Sodium 143 mmol/L (136-145); Total Bilirubin 0.3 mg/dL (0.15-1.2); Total Protein 5.8 g/dL (6.6-8.7)
[2023-07-01 17:28] LABS: Potassium 6.7 mmol/L (3.5-5.1)
[2023-07-01 17:29] LABS: Blood Urea Nitrogen 91 mg/dL (8-23)
[2023-07-01 17:48] LABS: NT Pro B Type Natriuretic Pept 19864 pg/mL (0-125)
[2023-07-01] MEDS: dextrose 50% syringe 50 mL IVP ×5 (17:52→22:24)
[2023-07-01] MEDS: calcium gluconate 0.1 gm/mL 10% SDV 10mL 1 GM IVP (17:57)
[2023-07-01 18:04] LABS: Lactic Sepsis W/Reflex 0.9 mmol/L (0.5-2.2)
[2023-07-01 18:23] LABS: Glucose Point of Care 110 mg/dL (70-110)
--- NOTE | 2023-07-01 18:32 | ECG_ITS ---
[facility] Test Date: 2023-07-01 Pat Name: Usman Alvarez Department: Room: Gender: Male Home Health Nurse: : 1950 Requested By: Silvia Nunez Order Number: [id number] Diandra MD: Paula Steele M.D. Measurements Intervals [place] Rate: 82 P: 73 MD: 185 QRS: 40 QRSD: 97 T: 85 QT: 389 QTc: 456 Interpretive Statements SINUS RHYTHM LOW QRS VOLTAGE IN PRECORDIAL LEADS [QRS DEFLECTION < 1.0 mV IN CHEST LEADS] INCOMPLETE RIGHT BUNDLE BRANCH BLOCK [90+ ms QRS DURATION, TERMINAL R IN V1/V2, 40+ ms S IN I/aVL/V4/V5/V6] SEPTAL MYOCARDIAL INFARCTION , OF INDETERMINATE AGE [40+ ms Q WAVE IN V1/V2] Compared to ECG 02/07/2023 21:49:27 Low QRS voltage now present Atrial flutter no longer present Electronically Signed On 07-03-2023 16:49:54 TEST ANALYST by Paula Steele M.D. [email or web address]
[2023-07-01] MEDS: insulin regular-human 100 units/1 mL 10 UNIT IVP (18:43)
[2023-07-01] MEDS: vancomycin 1,000 MG in sodium chloride 0.9% 250 ML 250 MG IV (18:45)
[2023-07-01 19:20] LABS: Glucose Point of Care 120 mg/dL (70-110)
--- NOTE | 2023-07-01 19:24 | P.HP_ITS ---
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 Baird once a month, venous stasis dermatitis, history of contrast-induced nephropathy leading to ATN required temporary dialysis catheter placement in 2 dialysis sessions which improved his kidney function, referred from Dr. Baird's clinic for chills/rigors. Patient is drowsy after getting hyperkalemic treatment. His sugar was low he was getting D50 amp at the time of my evaluation I requested ABG. Patient does have hyperkalemia with acute on chronic kidney disease. As per the he has not been eating very well but they have not followed potassium restricted diet, patient was also getting potassium with Lasix about 40 mEq, Patient is not a provide history because of his drowsiness He is full code Able to protect airway Hemodynamically stable Review of Systems 2 General: Reports: ROS unobtainable due to medical condition Medications/Allergies Home Medications Medication Instructions Recorded Confirmed Last Taken Type garlic 1,000 mg capsule 1,000 mg PO BEDTIME 08/31/19 07/01/23 06/30/23 History furosemide 40 mg tablet 40 mg PO QAM 09/25/21 07/01/23 07/01/23 History tramadol 50 mg tablet 50 mg PO BEDTIME 06/14/22 07/01/23 06/30/23 History Mullein Drops See Rx Instructions .Route .COMPLEX 02/05/23 07/01/23 07/01/23 History aspirin 81 mg tablet,delayed 81 mg PO BEDTIME 02/05/23 07/01/23 06/30/23 History release hawthorn 500 mg capsule (hawthorn 500 mg PO BID 02/05/23 07/01/23 07/01/23 History tejada) insulin detemir U-100 100 unit/mL 36 unit SUBCUT QAM 02/05/23 07/01/23 06/30/23 History (3 mL) subcutaneous pen (Levemir FlexPen) insulin regular human 100 unit/mL See Rx Instructions .Route .COMPLEX 02/05/23 07/01/23 06/30/23 History injection solution (Novolin R Regular U-100 Insulin) magnesium oxide 400 mg PO QPM 02/05/23 07/01/23 06/30/23 History nitroglycerin 0.4 mg sublingual 0.4 mg sublingual Q5M PRN Chest 02/05/23 07/01/23 Unknown History tablet (Nitrostat) Pain resveratrol 100 mg capsule 100 mg PO BID 02/05/23 07/01/23 07/01/23 History thyroid (pork) 60 mg tablet 60 mg PO QAM 02/05/23 07/01/23 1 Week Ago History ([place] Thyroid) ~01/29/23 Owls Boot to Right Lower Extremity #1 ea 03/24/23 07/01/23 Unknown Rx Cam Boot to the right #1 ea 03/26/23 07/01/23 Unknown Rx Vitamin B Complex Liquid See Rx Instructions .Route .COMPLEX 04/16/23 07/01/23 07/01/23 History mirtazapine 15 mg tablet (Remeron) 15 mg PO DAILY #30 tabs 06/20/23 07/01/23 07/01/23 Rx Allergies Allergy/AdvReac Type Severity Reaction Status Date / Time Penicillins Allergy Severe Throat Verified 07/01/23 15:43 swells amiodarone Allergy Unknown Verified 07/01/23 15:43 azithromycin Allergy ADR/ALGY-Pa Verified 07/01/23 15:43 lpitations ciprofloxacin Allergy hallucinations Verified 07/01/23 15:43 and burning sensation in legs Cordarone Allergy Unknown Confusion Uncoded 07/01/23 14:55 PFSH Acute 2 PFSH: Medical History SVT (supraventricular tachycardia) Gangrenous toe CKD (chronic kidney disease) Systolic heart failure Pleural effusion, left Non-healing ulcer Ischemic cardiomyopathy Diabetic ulcer of right foot Atherosclerosis of coronary artery Kidney stone Amputation toe Diabetes mellitus with peripheral vascular disease Diabetic neuropathy HTN (hypertension) Diabetes Surgical History H/O chest tube placement S/P cholecystectomy S/P tonsillectomy S/P cataract extraction Family History Father Cancer LUNG Mother CAD (coronary artery disease) Diabetes CHF (congestive heart failure) Myocardial infarction Social History Smoking and tobacco/nicotine status: never used tobacco/nicotine Alcohol intake: never Substance/Drug Use: never Household members: spouse Marital status: Current occupational status: retired Vitals/I&O/Wt Last Vital Signs Temp 97.4 F L 07/01/23 15:35 Pulse 78 07/01/23 17:30 Resp 16 07/01/23 17:30 BP 107/64 07/01/23 17:30 Pulse Ox 94 07/01/23 17:30 O2 Del Method Nasal Cannula 07/01/23 17:30 O2 Flow Rate 2 07/01/23 17:30 Physical Exam 2 Narrative: Patient is drowsy and lethargic Able to protect airway Hemodynamically stable Currently on 2 L Abdomen soft Positive asterixis Left foot with venous stasis dermatitis Right foot covered with dressing Back was not examined patient was unable to follow commands Pupils are symmetrical S1, S2 Hemodynamic stable at the bedside Data 07/01/23 16:24 07/01/23 16:24 Micro: Microbiology 07/01/23 16:55 Blood Culture - Preliminary Blood SPECIMEN COLLECTED 07/01/23 16:53 Blood Culture - Preliminary Blood SPECIMEN COLLECTED A&P Assessment and plan (1) Acute hyperkalemia: (2) Pleural effusion: (3) S/P transmetatarsal amputation of foot: Qualifiers: Laterality: right Qualified Code(s): Z89.431 - Acquired absence of right foot (4) Acute kidney injury superimposed on CKD: (5) CKD (chronic kidney disease): (6) Pulmonary infiltrate present on computed tomography: (7) Non-pressure chronic ulcer of other part of right foot with necrosis of bone: (8) Diabetic neuropathy: (9) Ischemic cardiomyopathy: (10) Systolic heart failure: (11) Elevated hemidiaphragm: (12) Atelectasis, left: (13) Status post amputation of toe of right foot: (14) Atrial flutter: Qualifiers: Atrial flutter type: typical Qualified Code(s): I48.3 - Typical atrial flutter Plan Acute on chronic kidney disease Patient is showing signs of asterixis Nephro consulted Required temporary dialysis for contrast-induced nephropathy in the past Patient has received hyperkalemia treatment cocktail which made him hypoglycemic He was given D50 amp at the time my evaluation requested ABG Able to protect airway Admit to ICU Patient is full code Once able to swallow we will give Kayexalate along lactulose Acute hypoxia requiring 2 L Related pleural effusion Systolic CHF Family not interested in a LifeVest or AICD However EF has improved from 35% to 45% now Patient has bilateral lower extremity swelling I will continue IV Lasix EF 40 to 45% Intermittent tachycardia patient receives metoprolol at home Peripheral vascular disease cardiology recommended medical management Wound care: Follows up with Dr. Baird once a month Consistent carb diet Sliding scale DVT prophylaxis on board Patient is full code Attestations 2 Medical Necessity Statement*: More than 2 midnights anticipated Diagnoses Acute hyperkalemia E87.5 Pleural effusion J90 Status post amputation of right foot through metatarsal bone Z89.431 Laterality: right Acute kidney injury superimposed on CKD N17.9; N18.9 CKD (chronic kidney disease) N18.9 Pulmonary infiltrate present on computed tomography R91.8 Non-pressure chronic ulcer of other part of right foot with necrosis of bone L97.514 Diabetic neuropathy E11.40 Ischemic cardiomyopathy I25.5 Systolic heart failure I50.20 Elevated hemidiaphragm J98.6 Atelectasis, left J98.11 Status post amputation of toe of right foot Z89.421 Typical atrial flutter I48.3 Atrial flutter type: typical
[2023-07-01 20:05] LABS: Glucose Point of Care 55 mg/dL (70-110)
[2023-07-01 20:49] LABS: Glucose Point of Care 77 mg/dL (70-110)
[2023-07-01 21:23] LABS: Glucose Point of Care 116 mg/dL (70-110)
[2023-07-01 21:45] LABS: ABG PH Result 7.22 (7.35-7.45); Arterial Blood Gas Hematocrit 40.1 % (42-52); Base Excess ABG 3.5 mmol/L (-2.0-2.0); Blood Gas Allen Test Pos; Blood Gas LPM 1.5 %; Blood Gas Sample Site Radial, right; Blood Gas Sample Type Arterial; Carboxyhemoglobin 1.1 %THgb (0.4-20.1); HCO3 ABG 33.8 mmol/L (22-26); HGB O2 Sat 95.2 % (95-100); Ionized Calcium Level - ABG 1.1 mmol/L (1.1-1.4); Methemoglobin 0.4 % (0.4-1.5); Oxygen Device NC; Oxygen Saturation ABG 96.7; Potassium Level - ABG 5.7 mmol/L (3.5-5.0); Total Hemoglobin 13.1 g/dL (14-18)
[2023-07-01 21:48] LABS: ABG PCO2 82.3 mmHg (35-45)
[2023-07-01 22:27] LABS: Glucose Point of Care 68 mg/dL (70-110)
[2023-07-01 22:39] LABS: Anion Gap 12.3 (5-19); Calcium 7.6 mg/dL (8.5-10.5); Carbon Dioxide 32 mmol/L (22-29); Chloride 106 mmol/L (98-107); Glucose 78 mg/dL (65-115); Osmolality Calculated 323 mOsm/kg (285-295); Potassium 6.3 mmol/L (3.5-5.1); Sodium 144 mmol/L (136-145)
[2023-07-01 22:41] LABS: Blood Urea Nitrogen 86 mg/dL (8-23)
[2023-07-01 23:16] LABS: Glucose Point of Care 93 mg/dL (70-110)
[2023-07-01 23:36] LABS: ABG PCO2 54.9 mmHg (35-45); ABG PH Result 7.39 (7.35-7.45); Alveolar-Arterial Oxygen Gradi 3.5 mmHg (5-10); Arterial Blood Gas Hematocrit 38.8 % (42-52); Base Excess ABG 6.3 mmol/L (-2.0-2.0); Blood Gas Allen Test Pos; Blood Gas Sample Site Radial, right; Blood Gas Sample Type Arterial; Blood Gas Tidal Volume 0.45; Carboxyhemoglobin 1.2 %THgb (0.4-20.1); HCO3 ABG 32.9 mmol/L (22-26); HGB O2 Sat 96.8 % (95-100); Ionized Calcium Level - ABG 1.1 mmol/L (1.1-1.4); Methemoglobin 0.6 % (0.4-1.5); Oxygen Device BIPAP; Oxygen Saturation ABG 98.6; PO2 FiO2 Ratio Arterial Blood 0; Potassium Level - ABG 5.6 mmol/L (3.5-5.0); Total Hemoglobin 12.7 g/dL (14-18)
[2023-07-01 23:37] LABS: Glucose Point of Care 96 mg/dL (70-110)
[2023-07-02] VITALS (97 sets, daily range): BP systolic 100–219; BP diastolic 47–182; PULSE 74–120; RESP 2–38; TEMP 36.4–36.6; O2SAT 75–98; BMI 33.4
[2023-07-02] MEDS: dextrose 50% syringe 50 mL 25 ML IVP ×2 (01:16→01:31)
[2023-07-02] MEDS: dextrose 5 % 500 ML 100 ML IV (01:17)
--- NOTE | 2023-07-02 01:30 | PC.NURSE ---
Blood Sugar Patient's blood sugar 52 upon arrival to the unit. 4 oz of apple juice administered per protocol. 15 minutes later, patient's blood sugar 61. Juice not administered due to high potassium. 25 ml of D50w administered IVP and D5w started at 100 ml/hr per protocol. Dr. Frances notified; orders received to stop D5 and administer another 25 ml of D50w IVP once. Heparin medication also ordered for 1999 on 07/01/23 not administered. Order received to administer the 5000 units heparin SubQ now. See MAR for details.
[2023-07-02] MEDS: sodium polystyrene sulfonate 15 gm/60 mL Btl PO (01:32)
[2023-07-02] MEDS: lactulose oral liq 20 gm/30 mL UDC 10 GM PO (01:32)
[2023-07-02 02:03] LABS: Glucose Point of Care 52 mg/dL (70-110)
[2023-07-02 02:03] LABS: Glucose Point of Care 61 mg/dL (70-110)
[2023-07-02 02:03] LABS: Glucose Point of Care 113 mg/dL (70-110)
[2023-07-02] MEDS: heparin 5,000 unit/mL INJ 1 mL 5000 UNIT SUBCUT ×3 (02:04→20:35)
[2023-07-02 04:35] LABS: Add Urine Culture? No; Add Urine Microscopic? YES; Bacteria Urine TRACE /hpf; Bilirubin Urine Neg (Negative); Blood Urine Neg (Negative); Glucose Urine UA Norm (Normal); Ketones Urine Negative (Negative); Leukocyte Esterase Urine Negative (Negative); Mucus Urine 1+ /hpf; Nitrate Urine Negative (Negative); Protein Urine 1+ (Negative); RBC Urine 0-4 /hpf (0-2); Specific Gravity, Urine 1.015 (1.005-1.030); Urine Appearance Clear (CLEAR); Urine Color Yellow (Yellow); Urobilinogen Urine Neg (Negative); pH Urine 5 (5-7)
[2023-07-02 04:58] LABS: Glucose Point of Care 94 mg/dL (70-110)
[2023-07-02 04:58] LABS: Glucose Point of Care 95 mg/dL (70-110)
[2023-07-02 05:41] LABS: Glucose Point of Care 92 mg/dL (70-110)
[2023-07-02 05:59] LABS: Basophils # 0.1 10^3/uL (0.0-0.1); Basophils % 0.6 %; Eosinophils # 0.2 10^3/uL (0.0-0.8); Eosinophils % 2.1 %; Hematocrit 45.3 % (37-53); Lymphocytes % 37.4 %; Mean Corpuscular HGB Conc 28.3 g/dL (30-55); Mean Corpuscular Hemoglobin 26.1 pg (27-33); Mean Corpuscular Volume 92.4 fl (82-101); Mean Platelet Volume 9.9 fL (7.4-10.4); Monocytes # 0.6 10^3/uL (0.2-0.9); Monocytes % 5.6 %; Neutrophils # 5.85 10^3/uL (1.8-7.7); Neutrophils % 54.2 %; Nucleated Red Blood Cells % 0 %; Platelet Count 174 10^3/cmm (157-399); Red Cell Distribution Width 15.5 % (12.1-15.1); White Blood Count 10.79 10^3/uL (3.29-11.43)
[2023-07-02 06:21] LABS: Anion Gap 12.1 (5-19); C Reactive Protein 3.4 mg/L (0.0-4.9); Calcium 7.7 mg/dL (8.5-10.5); Carbon Dioxide 34 mmol/L (22-29); Chloride 106 mmol/L (98-107); Glucose 95 mg/dL (65-115); Magnesium 3.6 mg/dL (1.7-2.3); Osmolality Calculated 327 mOsm/kg (285-295); Phosphorus 5.3 mg/dL (2.5-4.5); Potassium 6.1 mmol/L (3.5-5.1); Sodium 146 mmol/L (136-145)
[2023-07-02 06:33] LABS: Blood Urea Nitrogen 84 mg/dL (8-23)
--- OUTSIDE RECORDS SUMMARY | 2023-07-02 06:53 | XMS_ITS | Encounter Summary ---
Author Name Unknown Organization [facility] Address [facility] [place] [address] Encounter Details Date Type Department Care Team Description 2023-02-28 Telephone [facility] [address] [place] [address] Jannet Patel Medication Reconciliation was successfully completed by the [facility]. ASSESSMENT No Information TREATMENT PLAN No Information
[2023-07-02] MEDS: thyroid 60 mg Tablet PO (06:58)
[2023-07-02 08:29] LABS: Glucose Point of Care 99 mg/dL (70-110)
[2023-07-02 08:29] LABS: Glucose Point of Care 86 mg/dL (70-110)
[2023-07-02] MEDS: FUROsemide 10 mg/mL SDV 4mL 40 MG IVP ×3 (08:32→20:35)
[2023-07-02] MEDS: cefTRIAXone 1,000 MG in sodium chloride 0.9% (plus) 50 ML 100 MG IV (08:35)
[2023-07-02 08:43] LABS: ABG PH Result 7.22 (7.35-7.45); Arterial Blood Gas Hematocrit 39.5 % (42-52); Base Excess ABG 3.7 mmol/L (-2.0-2.0); Blood Gas Allen Test Pos; Blood Gas Operator Identificat GD; Blood Gas Sample Site Radial, left; Blood Gas Sample Type Arterial; HCO3 ABG 34.1 mmol/L (22-26); Oxygen Device NC; PO2 ABG 96.9 mmHg (80.0-100.0); PO2 FiO2 Ratio Arterial Blood 0
[2023-07-02 08:44] LABS: ABG PCO2 83.6 mmHg (35-45)
--- NOTE | 2023-07-02 09:13 | PC.SOCIAL ---
IMM Update Pg.2 of IMM Updated and reviewed with patient. Copy provided to patient, initialed and dated copy in chart.
[2023-07-02] MEDS: dextrose 50% syringe 50 mL IVP ×3 (09:30→12:46)
[2023-07-02] MEDS: insulin regular-human 10 UNIT in SYRINGE 1 EACH IVP (09:33)
[2023-07-02] MEDS: dexamethasone 10 mg/mL INJ 6 MG IVP (09:42)
[2023-07-02 10:05] LABS: Glucose Point of Care 103 mg/dL (70-110)
--- NOTE | 2023-07-02 10:16 | USCV_ITS ---
Usman Alvarez Age: 73 Gender: M : 1950 Exam Date: 07/02/2023 10:52 Ordering Phys: Vitaly Leyva MD Technologist: Marbin Chapman [place] [facility] [place] Indication: EDEMA PROCEDURES: The venous duplex Doppler examination of both lower extremities was performed in the standard fashion. The following venous structures were evaluated: common femoral vein, profunda vein, proximal portion of the greater saphenous vein, superficial femoral vein, and the popliteal vein. FINDINGS: Normal 2-D Doppler and augmentation and compressibility throughout the lower extremity venous structures. Additional imaging through the proximal calf veins also reveals no thrombus. Limited evaluation of the greater saphenous vein is patent with no thrombus. CONCLUSIONS No evidence of right lower extremity DVT. No evidence of left lower extremity DVT. Sj Arenas MD (Electronically Signed) Final Date: 02 July 2023 12:45 S
--- NOTE | 2023-07-02 10:16 | ECG_ITS ---
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 Measurements Intervals [place] Rate: 79 P: 56 [place]: 172 QRS: 41 QRSD: 94 T: 81 QT: 391 QTc: 449 Interpretive Statements SINUS RHYTHM LOW QRS VOLTAGE IN PRECORDIAL LEADS [QRS DEFLECTION < 1.0 mV IN CHEST LEADS] Septal myocardial infarction, indeterminate age NONSPECIFIC T-WAVE ABNORMALITY Compared to ECG 07/01/2023 18:32:33 No significant change Electronically Signed On 07-03-2023 16:43:38 HOME CARE ASSISTANT by Paula Steele M.D. [id number]
--- NOTE | 2023-07-02 10:16 | USCV_ITS ---
KimUsman james Age: 73 Gender: M : 1950 Exam Date: 07/02/2023 10:42 Ordering Phys: Vitaly Leyva MD Technologist: Marbin Chapman Exam Location: [facility] Indication: sob BP: 128 / 73 HR: 79 Rhythm: Sinus Technical Quality: Adequate MEASUREMENTS (Male / Female) Normal Values 2D ECHO LV Diastolic Diameter PLAX 5.6 cm 4.2 - 5.9 / 3.9 - 5.3 cm LV Systolic Diameter PLAX 4.8 cm IVS Diastolic Thickness 1.2 cm 0.6 - 1.0 / 0.6 - 0.9 cm IVS Systolic Thickness 1.7 cm LVPW Diastolic Thickness 1.7 cm 0.6 - 1.0 / 0.6 - 0.9 cm LVPW Systolic Thickness 1.3 cm LVOT Diameter 2.0 cm LV Ejection Fraction 2D Teich 11.0 % LV Ejection Fraction MOD 2C 67.2 % LV Ejection Fraction 2C AL 68.3 % LA Diameter 3.4 cm M-MODE Aortic Annulus Diameter 3.6 cm LA Ao Ratio MM 0.9 MV E Point Septal Separation 2.0 cm DOPPLER RV Acceleration Time 0.1 s FINDINGS Left Ventricle Mild left ventricular hypertrophy. Mildly reduced LV systolic function. Mild hypokinesis of mid anterior and anteroseptal wall segment. Estimated LVEF is mildly reduced 45 to 50%. Right Ventricle Normal right ventricular size and systolic function. Right Atrium Normal right atrial size. Left Atrium Normal left atrial size. Mitral Valve Aortic Valve Tricuspid Valve Pulmonic Valve Pericardium Aorta IVC CONCLUSIONS Limited echo to assess the LV function. Mild concentric LVH. Mildly reduced LV systolic function with hypokinesis of mid anterior and anteroseptal wall segments. Estimated LVEF is mildly reduced 45 to 50%. Aortic valve appears significantly thickened with sclerosis and restricted movements of aortic valve leaflets. However any stenosis or regurgitation was not evaluated during the study. Paula Steele MD (Electronically Signed) Final Date: 02 July 2023 14:13 S
[2023-07-02 10:29] LABS: ABG PCO2 59.5 mmHg (35-45); ABG PH Result 7.37 (7.35-7.45); Alveolar-Arterial Oxygen Gradi 3.2 mmHg (5-10); Arterial Blood Gas Hematocrit 38.5 % (42-52); Base Excess ABG 7.5 mmol/L (-2.0-2.0); Blood Gas Allen Test Pos; Blood Gas Operator Identificat GD; Blood Gas Sample Site Radial, right; Blood Gas Sample Type Arterial; Carboxyhemoglobin 1.4 %THgb (0.4-20.1); HCO3 ABG 34.6 mmol/L (22-26); HGB O2 Sat 94.3 % (95-100); Methemoglobin 0.6 % (0.4-1.5); Oxygen Device BIPAP; Oxygen Saturation ABG 96.2; PO2 ABG 74.8 mmHg (80.0-100.0); PO2 FiO2 Ratio Arterial Blood 0; Potassium Level - ABG 5.1 mmol/L (3.5-5.0); Total Hemoglobin 12.6 g/dL (14-18)
[2023-07-02 10:41] LABS: Glucose Point of Care 52 mg/dL (70-110)
--- NOTE | 2023-07-02 10:43 | P.CONIM_ITS ---
Providers/Reason For Consult 2 Consulting Physician/Specialty*: [facility] /Nephrology Reason for Consult*: aCUTE ON ckd Attending Physician: Vitaly Leyva MD Primary Care Provider: Beatriz Brady History of Present Illness History of Present Illness Usman Alvarez is a 73 year old male With past medical history of chronic kidney disease, peripheral vascular disease, diabetes, coronary artery disease and cardiomyopathy with ejection fraction 35 to 45%, history of prior femoropopliteal bypass, prior transmetatarsal amputation on the right was sent from PCPs office due to fevers and chills. Patient was noted to be hypoglycemic and also has SALLY with hyperkalemia with a potassium of 6.7 on presentation. Family reports decreased p.o. intake at home. Patient takes Lasix at home In the emergency department vital signs are stable lab data significant for potassium 6.7 BUN of 91 creatinine 3.5. Blood cultures have been drawn and pending at this time Review of Systems 2 Narrative: Other review of systems negative Medications/Allergies Home Medications Medication Instructions Recorded Confirmed Last Taken Type garlic 1,000 mg capsule 1,000 mg PO BEDTIME 08/31/19 07/01/23 06/30/23 History furosemide 40 mg tablet 40 mg PO QAM 09/25/21 07/01/23 07/01/23 History tramadol 50 mg tablet 50 mg PO BEDTIME 06/14/22 07/01/23 06/30/23 History Mullein Drops See Rx Instructions .Route .COMPLEX 02/05/23 07/01/23 07/01/23 History aspirin 81 mg tablet,delayed 81 mg PO BEDTIME 02/05/23 07/01/23 06/30/23 History release hawthorn 500 mg capsule (hawthorn 500 mg PO BID 02/05/23 07/01/23 07/01/23 History tejada) insulin detemir U-100 100 unit/mL 36 unit SUBCUT QAM 02/05/23 07/01/23 06/30/23 History (3 mL) subcutaneous pen (Levemir FlexPen) insulin regular human 100 unit/mL See Rx Instructions .Route .COMPLEX 02/05/23 07/01/23 06/30/23 History injection solution (Novolin R Regular U-100 Insulin) magnesium oxide 400 mg PO QPM 02/05/23 07/01/23 06/30/23 History nitroglycerin 0.4 mg sublingual 0.4 mg sublingual Q5M PRN Chest 02/05/23 07/01/23 Unknown History tablet (Nitrostat) Pain resveratrol 100 mg capsule 100 mg PO BID 02/05/23 07/01/23 07/01/23 History thyroid (pork) 60 mg tablet 60 mg PO QAM 02/05/23 07/01/23 1 Week Ago History ([place] Thyroid) ~01/29/23 Owls Boot to Right Lower Extremity #1 ea 03/24/23 07/01/23 Unknown Rx Cam Boot to the right #1 ea 03/26/23 07/01/23 Unknown Rx Vitamin B Complex Liquid See Rx Instructions .Route .COMPLEX 04/16/23 07/01/23 07/01/23 History mirtazapine 15 mg tablet (Remeron) 15 mg PO DAILY #30 tabs 06/20/23 07/01/23 07/01/23 Rx Allergies Allergy/AdvReac Type Severity Reaction Status Date / Time Penicillins Allergy Severe Throat Verified 07/01/23 15:43 swells amiodarone Allergy Unknown Verified 07/01/23 15:43 azithromycin Allergy ADR/ALGY-Pa Verified 07/01/23 15:43 lpitations ciprofloxacin Allergy hallucinations Verified 07/01/23 15:43 and burning sensation in legs Cordarone Allergy Unknown Confusion Uncoded 07/01/23 14:55 Current Medications Generic Name Dose Route Start Last Admin Trade Name Freq PRN Reason Stop Dose Admin Heparin Sodium (Porcine) 5,000 unit 07/01/23 20:00 07/02/23 09:15 Heparin 5,000 Unit/Ml Inj 1 Ml SUBCUT 5,000 unit Q12H SAHARA Administration Dextrose 500 mls @ 0 mls/hr 07/01/23 19:25 07/02/23 01:27 D5w IV 0 mls/hr ONCE PRN Infusion Adult Acute Hypoglycemia Prot Protocol Per Protocol Ceftriaxone Sodium 1,000 mg/ 50 mls @ 100 mls/hr 07/02/23 09:00 07/02/23 09:00 Sodium Chloride IV Infused DAILY SAHARA Infusion Protocol Insulin Human Lispro 0 unit 07/02/23 08:00 07/02/23 08:27 Insulin Lispro 100 Unit/1 Ml SUBCUT Not Given TIDWM SAHARA Protocol Thyroid 60 mg 07/02/23 06:00 07/02/23 06:58 Thyroid 60 Mg Tablet PO 60 mg QAM SAHARA Administration PFSH Acute 2 PFSH: Medical History SVT (supraventricular tachycardia) Gangrenous toe CKD (chronic kidney disease) Systolic heart failure Pleural effusion, left Non-healing ulcer Ischemic cardiomyopathy Diabetic ulcer of right foot Atherosclerosis of coronary artery Kidney stone Amputation toe Diabetes mellitus with peripheral vascular disease Diabetic neuropathy HTN (hypertension) Diabetes Surgical History H/O chest tube placement S/P cholecystectomy S/P tonsillectomy S/P cataract extraction Family History Father Cancer LUNG Mother CAD (coronary artery disease) Diabetes CHF (congestive heart failure) Myocardial infarction Social History Smoking and tobacco/nicotine status: never used tobacco/nicotine Alcohol intake: never Substance/Drug Use: never Household members: spouse Marital status: Current occupational status: retired Vitals/I&O/Wt Last Vital Signs Temp 97.6 F 07/02/23 08:00 Pulse 80 07/02/23 09:51 Resp 28 H 07/02/23 08:55 BP 130/66 07/02/23 08:45 Pulse Ox 98 07/02/23 09:51 O2 Del Method BiPAP 07/02/23 08:55 O2 Flow Rate 2 07/02/23 08:00 FiO2 24 07/02/23 09:51 07/01/23 07/02/23 07/02/23 22:59 06:59 14:59 Intake Total 16.667 / 16.667 50 / 50 Output Total 1020 / 1020 Balance -1003.333 / -1003.333 50 / 50 Weight last 48 hrs Weight 108.771 kg Weight 108.771 kg Physical Exam 2 Narrative: Awake, no acute distress Urinary Catheter Management: K[place]aid: Cath Placed During This Visit: yes Reason for Continuing Indwelling Catheter: Accurate Measurement of Urinary Output in Critically Ill Patients Urinary Catheter Date of Insertion: 07/02/23 Urinary Catheter Time of Insertion: 03:30 Data 07/02/23 05:20 07/02/23 05:20 Micro: Microbiology 07/01/23 16:55 Blood Culture - Preliminary Blood SPECIMEN COLLECTED 07/01/23 16:53 Blood Culture - Preliminary Blood SPECIMEN COLLECTED A&P Assessment and plan (1) Acute kidney injury superimposed on CKD: Plan 1. Acute on chronic kidney disease stage III: Baseline creatinine is in the mid 1 range, had prior SALLY requiring temporary hemodialysis due to contrast nephropathy -Patient now presented with SALLY with a creatinine of 3.5 on presentation likely prerenal/ATN. Nonoliguric. Also has hyperkalemia with a potassium of 6.1. -Status post IV diuretics, hold off on further diuretics until renal function back to baseline, avoid contrast studies -UA with 1+ protein, 2. Hyperkalemia: Medical management, low K diet, repeat BMP pending 3. Hyponatremia: Mild, monitor 4. History of CHF, with low ejection fraction 35 to 45%, status post diuretics on hold now 5. History of peripheral vascular disease and right TMA in the past Patient evaluated using audiovisual cart. Time spent 35 minutes. Consult Attestations 2 Medical Necessity Statement: Per medicine team Coding Level of Care Code Acute Code for Chg Fwd Diagnoses Acute kidney injury superimposed on CKD N17.9; N18.9
[2023-07-02] MEDS: citric acid-sodium citrate 30 mL UDC 60 ML PO (11:20)
[2023-07-02 11:35] LABS: Glucose Point of Care 92 mg/dL (70-110)
[2023-07-02 12:05] LABS: Troponin(5th) Baseline 123 ng/L (0-15)
[2023-07-02] MEDS: metOLazone 5 MG Tablet PO (12:18)
[2023-07-02 12:37] LABS: Glucose Point of Care 62 mg/dL (70-110)
[2023-07-02 14:34] LABS: Anion Gap 17.4 (5-19); Calcium 7.4 mg/dL (8.5-10.5); Carbon Dioxide 30 mmol/L (22-29); Chloride 104 mmol/L (98-107); Glucose 89 mg/dL (65-115); Osmolality Calculated 326 mOsm/kg (285-295); Potassium 5.4 mmol/L (3.5-5.1); Sodium 146 mmol/L (136-145)
--- NOTE | 2023-07-02 14:36 | P.PN_ITS ---
Subjective 2 Subjective: Patient was examined multiple times throughout the morning, ? Early in the morning he was seen, he was found to have acute hypercarbic respiratory failure, was placed on BiPAP, currently seen, currently resting on BiPAP he does awaken, but falls back asleep, ? Was seen by me at bedside, with at bedside, ? Had extensive discussion with about patient's hypercarbic respiratory failure, will see if he responds to BiPAP therapy if he does not we will have to intubate him, to help with his hypercarbia and his respiratory failure, she is agreeable, patient was reexamined, his PCO2 is improving, he is much more alert and awake, will continue bipap -We discussed his fluid overload, he has bilateral lower extremity edema, 3+ pitting edema, he has crackles in all lung west, will have to diurese him, given his CKD and his SALLY this is going to be difficult, he has a risk of renal failure, risk of dialysis, but with his fluid overload is respiratory failure we will have to diurese him, she is agreeable, we will continue to monitor him in the ICU, discussed dialysis she is agreeable if it is needed, he did need dialysis back in February when he had contrast-induced nephropathy needing to 2 sessions Vitals/I&O/Wt Last Vital Signs Temp 97.6 F 07/02/23 08:00 Pulse 115 H 07/02/23 14:15 Resp 19 H 07/02/23 14:15 BP 133/76 07/02/23 14:15 Pulse Ox 96 07/02/23 14:15 O2 Del Method BiPAP 07/02/23 08:55 O2 Flow Rate 2 07/02/23 08:00 FiO2 24 07/02/23 12:02 07/01/23 07/02/23 07/02/23 22:59 06:59 14:59 Intake Total 16.667 / 16.667 110 / 110 Output Total 1020 / 1020 1100 / 1100 Balance -1003.333 / -1003.333 -990 / -990 Weight last 48 hrs Weight 108.771 kg Weight 108.771 kg Physical Exam 2 Const: COMMON NORMALS: no acute distress Resp: AUSCULTATION: crackles and wheezes Cardio: COMMON NORMALS: regular rate, regular rhythm, S1 normal heart sound present and S2 normal heart sound present RATE: regular rate RHYTHM: r egular rhythm HEART SOUNDS: S1 normal heart sound present and S2 normal heart sound present GI: COMMON NORMALS: Normal to inspection, nondistended, normoactive bowel sounds present and non-tender Extremity: NARRATIVE EXTREMITY EXAM: 3+ pitting edema bilateral extremity, an asarca Urinary Catheter Management: Kincaid: Cath Placed During This Visit: yes Reason for Continuing Indwelling Catheter: Accurate Measurement of Urinary Output in Critically Ill Patients Urinary Catheter Date of Insertion: 07/02/23 Urinary Catheter Time of Insertion: 03:30 Data 07/02/23 05:20 07/02/23 13:42 Micro: Microbiology 07/01/23 16:55 Blood Culture - Preliminary Blood SPECIMEN COLLECTED 07/01/23 16:53 Blood Culture - Preliminary Blood SPECIMEN COLLECTED A&P Assessment and plan (1) Acute hyperkalemia: (2) Pleural effusion: (3) S/P transmetatarsal amputation of foot: Qualifiers: Laterality: right Qualified Code(s): Z89.431 - Acquired absence of right foot (4) Acute kidney injury superimposed on CKD: (5) CKD (chronic kidney disease): (6) Pulmonary infiltrate present on computed tomography: (7) Non-pressure chronic ulcer of other part of right foot with necrosis of bone: (8) Diabetic neuropathy: (9) Ischemic cardiomyopathy: (10) Systolic heart failure: (11) Elevated hemidiaphragm: (12) Atelectasis, left: (13) Status post amputation of toe of right foot: (14) Atrial flutter: Qualifiers: Atrial flutter type: typical Qualified Code(s): I48.3 - Typical atrial flutter (15) Acute respiratory failure with hypoxia and hypercapnia: (16) NSTEMI (non-ST elevated myocardial infarction): (17) Systolic CHF, acute: (18) Pulmonary edema: (19) Fluid overload: (20) Hyperkalemia: Plan Acute hypoxic hypercarbic respiratory failure ? Secondary to pulm edema, fluid overload, systolic CHF, ? Plan, ? Monitor intensive care unit, ? Continue BiPAP therapy, ? Monitor ABG, ? Monitor respiratory status, ? Status post 2 doses of IV Lasix 40 mg, metolazone, monitor urine output we will consider further doses of Lasix based on clinical progress and possible Lasix drip, ? Monitor creatinine monitor urine output, monitor potassium ? Full code, ? Heparin for DVT prophylaxis Systolic CHF, ? Repeat cardiac echo, ? As above, NSTEMI, History of CAD, stenting x1, ? Type I versus type II NSTEMI ? Acute respiratory failure, ? Plan, ? Serial EKGs, serial troponins, telemetry monitoring, ? Cardiac echo as above, ? Aspirin, statin, ? Based on troponin trend will consider anticoagulant therapy Acute on chronic kidney disease Patient is showing signs of asterixis Nephro consulted Required temporary dialysis for contrast-induced nephropathy in the past Hyperkalemia, ? With underlying CKD, ? Several doses of insulin, D50, Kayexalate have been given, with Lasix as above ? Continue ICU monitoring, monitor telemetry, repeat BMP in afternoon Acute hypoxia requiring 2 L Related pleural effusion Right pleural effusion, will consider thoracocentesis Systolic CHF Family not interested in a LifeVest or AICD However EF has improved from 35% to 45% now Patient has bilateral lower extremity swelling I will continue IV Lasix EF 40 to 45% Intermittent tachycardia patient receives metoprolol at home Peripheral vascular disease cardiology recommended medical management Wound care: Follows up with Dr. Baird once a month Consistent carb diet Sliding scale DVT prophylaxis on board Patient is full code Attestations 2 Medical Necessity Statement*: Patient requires hospitalization for acute hypoxic hypercarbic respiratory failure secondary fluid overload, NSTEMI, CHF, SALLY Diagnoses Acute hyperkalemia E87.5 Pleural effusion J90 Status post amputation of right foot through metatarsal bone Z89.431 Laterality: right Acute kidney injury superimposed on CKD N17.9; N18.9 CKD (chronic kidney disease) N18.9 Pulmonary infiltrate present on computed tomography R91.8 Non-pressure chronic ulcer of other part of right foot with necrosis of bone L97.514 Diabetic neuropathy E11.40 Ischemic cardiomyopathy I25.5 Systolic heart failure I50.20 Elevated hemidiaphragm J98.6 Atelectasis, left J98.11 Status post amputation of toe of right foot Z89.421 Typical atrial flutter I48.3 Atrial flutter type: typical Acute respiratory failure with hypoxia and hypercapnia J96.01; J96.02 NSTEMI (non-ST elevated myocardial infarction) I21.4 Systolic CHF, acute I50.21 Pulmonary edema J81.1 Fluid overload E87.70 Hyperkalemia E87.5
[2023-07-02 14:38] LABS: Blood Urea Nitrogen 81 mg/dL (8-23); Troponin 5 2HR 137.1 ng/L (0-15); Troponin 5 2HR Delta 14.1 ABS# (0-10)
[2023-07-02 14:46] LABS: Glucose Point of Care 95 mg/dL (70-110)
[2023-07-02 15:33] LABS: Glucose Point of Care 96 mg/dL (70-110)
[2023-07-02] MEDS: aspirin 81 mg EC Tablet PO ×2 (15:41→20:35)
[2023-07-02] MEDS: acetaminophen 500 mg Tablet PO (15:41)
[2023-07-02] MEDS: thiamine 100 mg Tablet PO (15:41)
[2023-07-02 16:47] LABS: Glucose Point of Care 87 mg/dL (70-110)
[2023-07-02 16:47] LABS: Glucose Point of Care 127 mg/dL (70-110)
[2023-07-02 17:22] LABS: Glucose Point of Care 108 mg/dL (70-110)
[2023-07-02 17:57] LABS: Adenovirus Not Detected (NOT DETECT); Chlamydia Pneumoniae Not Detected (NOT DETECT); Coronavirus 229E,HKU1,NL63,OC4 Not Detected (NOT DETECT); Human Metapneumovirus Not Detected (NOT DETECT); Human Rhinovirus/Enterovirus Not Detected (NOT DETECT); Influenza A Not Detected (NOT DETECT); Influenza A H1 Not Detected (NOT DETECT); Influenza A H1-2009 Not Detected (NOT DETECT); Influenza A H3 Not Detected (NOT DETECT); Influenza B Not Detected (NOT DETECT); Mycoplasma Pneumoniae Not Detected (NOT DETECT); Parainfluenza Virus Type 1 Not Detected (NOT DETECT); Parainfluenza Virus Type 2 Not Detected (NOT DETECT); Parainfluenza Virus Type 3 Not Detected (NOT DETECT); Parainfluenza Virus Type 4 Not Detected (NOT DETECT); Respiratory Syncytial Virus A Not Detected (NOT DETECT); Respiratory Syncytial Virus B Not Detected (NOT DETECT); SARS-COV-2 Not Detected (NOT DETECT)
[2023-07-02 18:09] LABS: Troponin 5 6HR Delta 11.4 ng/L (0-12)
[2023-07-02 18:12] LABS: Troponin 5 6HR 134.4 ng/L (0-15)
[2023-07-02] MEDS: atorvastatin 40 mg Tablet PO (20:35)
[2023-07-02 22:14] LABS: Glucose Point of Care 211 mg/dL (70-110)
[2023-07-03] VITALS (16 sets, daily range): BP systolic 110–174; BP diastolic 59–102; PULSE 81–96; RESP 14–32; TEMP 36.7–36.8; O2SAT 82–99; BMI 33.0
[2023-07-03 04:19] LABS: Alanine Aminotransferase 12 U/L (0-41); Albumin Level 2.8 g/dL (3.5-5.2); Alkaline Phosphatase 93 U/L (40-130); Calcium 7.4 mg/dL (8.5-10.5); Carbon Dioxide 32 mmol/L (22-29); Chloride 101 mmol/L (98-107); Globulin 1.9 g/dL (1.3-4.6); Glucose 219 mg/dL (65-115); Magnesium 3.2 mg/dL (1.7-2.3); Osmolality Calculated 325 mOsm/kg (285-295); Phosphorus 3.7 mg/dL (2.5-4.5); Sodium 141 mmol/L (136-145); Total Bilirubin 0.5 mg/dL (0.15-1.2); Total Protein 4.7 g/dL (6.6-8.7)
[2023-07-03 04:38] LABS: Aspartate Amino Transferase 16 U/L (0-40); Blood Urea Nitrogen 86 mg/dL (8-23)
[2023-07-03 04:46] LABS: NT Pro B Type Natriuretic Pept 18430 pg/mL (0-125)
[2023-07-03 04:57] LABS: Basophils % 0.3 %; Eosinophils % 0.2 %; Lymphocytes # 4.4 10^3/uL (0.8-4.8); Lymphocytes % 45.4 %; Mean Corpuscular HGB Conc 30.2 g/dL (30-55); Mean Platelet Volume 9.7 fL (7.4-10.4); Monocytes # 0.5 10^3/uL (0.2-0.9); Monocytes % 5.5 %; Neutrophils # 4.68 10^3/uL (1.8-7.7); Neutrophils % 48.4 %; Nucleated Red Blood Cells % 0 %; Platelet Count 189 10^3/cmm (157-399); Red Blood Count 4.77 10^6/uL (3.85-5.65); Red Cell Distribution Width 15.4 % (12.1-15.1); White Blood Count 9.67 10^3/uL (3.29-11.43)
[2023-07-03 05:10] LABS: ABG PH Result 7.53 (7.35-7.45); Arterial Blood Gas Hematocrit 38.2 % (42-52); Base Excess ABG 11.8 mmol/L (-2.0-2.0); Blood Gas Allen Test Pos; Blood Gas Operator Identificat CAK; Blood Gas Sample Site Radial, left; Blood Gas Sample Type Arterial; HCO3 ABG 35.8 mmol/L (22-26); Oxygen Device BIPAP; PO2 ABG 70.1 mmHg (80.0-100.0); PO2 FiO2 Ratio Arterial Blood 0
[2023-07-03] MEDS: thyroid 60 mg Tablet PO (06:11)
--- NOTE | 2023-07-03 07:33 | PC.NURSE ---
Provider ordered PT/OT evaluation. Order entered.
[2023-07-03 07:58] LABS: Glucose Point of Care 187 mg/dL (70-110)
[2023-07-03] MEDS: FUROsemide 10 mg/mL SDV 4mL 40 MG IVP (08:04)
[2023-07-03] MEDS: heparin 5,000 unit/mL INJ 1 mL 5000 UNIT SUBCUT ×2 (08:05→19:55)
[2023-07-03] MEDS: albumin 25 G/100 ML BAG 60 G IV ×3 (08:05→23:44)
[2023-07-03] MEDS: metOLazone 5 MG Tablet PO (08:10)
[2023-07-03] MEDS: insulin lispro 100 unit/1 mL SUBCUT (09:21)
[2023-07-03] MEDS: insulin glargine 100 units/1 mL 20 UNIT SUBCUT (09:22)
[2023-07-03] MEDS: mirtazapine 15 mg Tablet PO (10:15)
[2023-07-03] MEDS: thiamine 100 mg Tablet PO (10:15)
[2023-07-03] MEDS: FUROsemide 10 mg/mL SDV 10mL 80 MG IVP (10:15)
[2023-07-03] MEDS: citric acid-sodium citrate 30 mL UDC 60 ML PO (10:15)
[2023-07-03] MEDS: sodium polystyrene sulfonate 15 gm/60 mL Btl 30 GM PO (10:16)
--- NOTE | 2023-07-03 10:35 | P.PN_ITS ---
Subjective 2 Subjective: no new complaints Medications: Reviewed: Yes Vitals/I&O/Wt Last Vital Signs Temp 97.7 F 07/02/23 17:00 Pulse 84 07/03/23 09:32 Resp 18 07/03/23 09:32 BP 124/59 07/03/23 06:03 Pulse Ox 94 07/03/23 09:32 O2 Del Method Nasal Cannula 07/03/23 09:32 O2 Flow Rate 2 07/03/23 09:32 FiO2 24 07/02/23 12:02 07/02/23 07/03/23 07/03/23 22:59 06:59 14:59 Intake Total 740 / 850 Output Total 1800 / 2900 850 / 3750 Balance -1060 / -2050 -850 / -2900 Weight last 48 hrs Weight 107.671 kg Weight 108.771 kg Weight 108.771 kg Physical Exam 2 Narrative: Awake, no acute distress Urinary Catheter Management: Kincaid: Cath Placed During This Visit: yes Reason for Continuing Indwelling Catheter: Accurate Measurement of Urinary Output in Critically Ill Patients Urinary Catheter Date of Insertion: 07/02/23 Urinary Catheter Time of Insertion: 03:30 Data 07/03/23 04:50 07/03/23 03:15 Micro: Microbiology 07/01/23 16:55 Blood Culture - Preliminary Blood NEGATIVE TO DATE 07/01/23 16:53 Blood Culture - Preliminary Blood NEGATIVE TO DATE A&P Assessment and plan (1) Acute kidney injury superimposed on CKD: Plan 1. Acute on chronic kidney disease stage III: Baseline creatinine is in the mid 1 range, had prior SALLY requiring temporary hemodialysis due to contrast nephropathy -Patient now presented with SALLY with a creatinine of 3.5 on presentation likely prerenal/ATN. Nonoliguric. Also has hyperkalemia with a potassium of 6.1. -Status post IV diuretics, hold off on further diuretics until renal function back to baseline, avoid contrast studies -UA with 1+ protein, - repeat BMP , UOP reasonable 2. Hyperkalemia: Medical management, low K diet, repeat BMP pending 3. Hyponatremia: improved 4. History of CHF, with low ejection fraction 35 to 45%, status post diuretics , on hold now 5. History of peripheral vascular disease and right TMA in the past 6. Metabolic alkalosis Patient evaluated using audiovisual cart. Time spent 35 minutes. Attestations 2 Medical Necessity Statement*: per medicine team Coding Level of Care Code Acute Code for Chg Fwd Diagnoses Acute kidney injury superimposed on CKD N17.9; N18.9
[2023-07-03 12:04] LABS: Glucose Point of Care 140 mg/dL (70-110)
[2023-07-03 14:31] LABS: Anion Gap 11.9 (5-19); Calcium 7.7 mg/dL (8.5-10.5); Carbon Dioxide 38 mmol/L (22-29); Chloride 100 mmol/L (98-107); Glucose 111 mg/dL (65-115); Osmolality Calculated 326 mOsm/kg (285-295); Potassium 4.9 mmol/L (3.5-5.1); Sodium 145 mmol/L (136-145)
[2023-07-03 14:38] LABS: Blood Urea Nitrogen 83 mg/dL (8-23)
--- NOTE | 2023-07-03 14:47 | PC.NURSE ---
Dr Cee is notified of patients K+ level of 4.9. She said to hold the kayexalate for the rest of the day.
--- NOTE | 2023-07-03 15:53 | P.PN_ITS ---
Subjective 2 Subjective: Patient was examined early in the morning, he is alert to person And place, to time, he is on 2 L, he had a good night, he tells me that he does not feel short of breath this morning, no fevers, no chills, no nausea, no vomiting, we discussed his kidney function is improving with diuresis we will continue to monitor closely continues to have hyperkalemia we will need to monitor that closely, but he is -3 L overnight so far we will continue to diurese him, he is agreeable, he has been tolerating the BiPAP well for the hypercarbic respiratory failure, Vitals/I&O/Wt Last Vital Signs Temp 97.7 F 07/02/23 17:00 Pulse 91 07/03/23 15:40 Resp 14 07/03/23 15:40 BP 113/62 07/03/23 15:40 Pulse Ox 95 07/03/23 15:40 O2 Del Method Room Air 07/03/23 15:40 O2 Flow Rate 2 07/03/23 12:00 FiO2 24 07/02/23 12:02 07/03/23 07/03/23 07/03/23 06:59 14:59 22:59 Intake Total 220 / 220 Output Total 850 / 3750 Balance -850 / -2900 220 / 220 Weight last 48 hrs Weight 107.671 kg Weight 108.771 kg Weight 108.771 kg Physical Exam 2 Const: COMMON NORMALS: no acute distress and patient oriented x3 Resp: COMMON NORMALS: normal respiratory effort, No retractions, No use of accessory muscles and clear to auscultation bilaterally AUSCULTATION: clear to auscultation bilaterally Cardio: COMMON NORMALS: regular rate, regular rhythm, S1 normal heart sound present and S2 normal heart sound present RATE: regular rate RHYTHM: r egular rhythm HEART SOUNDS: S1 normal heart sound present and S2 normal heart sound present GI: COMMON NORMALS: Normal to inspection, nondistended, normoactive bowel sounds present and non-tender Extremity: NARRATIVE EXTREMITY EXAM: 1+ pitting edema Neuro: COMMON NORMALS: patient oriented x3 Psych: COMMON NORMALS: mental status grossly normal Urinary Catheter Management: Kincaid: Cath Placed During This Visit: yes Reason for Continuing Indwelling Catheter: Accurate Measurement of Urinary Output in Critically Ill Patients Urinary Catheter Date of Insertion: 07/02/23 Urinary Catheter Time of Insertion: 03:30 Data 07/03/23 04:50 07/03/23 14:03 Micro: Microbiology 07/01/23 16:55 Blood Culture - Preliminary Blood NEGATIVE TO DATE 07/01/23 16:53 Blood Culture - Preliminary Blood NEGATIVE TO DATE A&P Assessment and plan (1) Acute hyperkalemia: (2) Pleural effusion: (3) S/P transmetatarsal amputation of foot: Qualifiers: Laterality: right Qualified Code(s): Z89.431 - Acquired absence of right foot (4) Acute kidney injury superimposed on CKD: (5) CKD (chronic kidney disease): (6) Pulmonary infiltrate present on computed tomography: (7) Non-pressure chronic ulcer of other part of right foot with necrosis of bone: (8) Diabetic neuropathy: (9) Ischemic cardiomyopathy: (10) Systolic heart failure: (11) Elevated hemidiaphragm: (12) Atelectasis, left: (13) Status post amputation of toe of right foot: (14) Atrial flutter: Qualifiers: Atrial flutter type: typical Qualified Code(s): I48.3 - Typical atrial flutter (15) Acute respiratory failure with hypoxia and hypercapnia: (16) NSTEMI (non-ST elevated myocardial infarction): (17) Systolic CHF, acute: (18) Pulmonary edema: (19) Fluid overload: (20) Hyperkalemia: Plan Acute hypoxic hypercarbic respiratory failure ? Secondary to pulm edema, fluid overload, systolic CHF, ? Plan, ? Monitor intensive care unit, ? Continue BiPAP therapy, ? Monitor ABG, ? Monitor respiratory status, ? -3 L so far, creatinine 3.2, IV doses of Lasix this morning ? Monitor creatinine monitor urine output, monitor potassium ? Full code, ? Heparin for DVT prophylaxis Systolic CHF, ? Repeat cardiac echo, CONCLUSIONS Limited echo to assess the LV function. Mild concentric LVH. Mildly reduced LV systolic function with hypokinesis of mid anterior and anteroseptal wall segments. Estimated LVEF is mildly reduced 45 to 50%. Aortic valve appears significantly thickened with sclerosis and restricted movements of aortic valve leaflets. However any stenosis or regurgitation was not evaluated during the study. ? As above, NSTEMI, History of CAD, stenting x1, ? Type I versus type II NSTEMI ? Acute respiratory failure, ? Plan, ? Serial EKGs, serial troponins, telemetry monitoring, ? Cardiac echo as above, does show mildly reduced ejection fraction ? Aspirin, statin, ? No chest pain complaints, will continue to monitor, consider stress testing either inpatient versus outpatient depending on clinical progress Acute on chronic kidney disease Creatinine 3.2 Nephro consulted Required temporary dialysis for contrast-induced nephropathy in the past Hyperkalemia, improving ? With underlying CKD, ? Several doses of insulin, D50, Kayexalate have been given, with Lasix as above ? Currently on scheduled Kayexalate Acute hypoxia requiring 2 L Related pleural effusion Right pleural effusion, will consider thoracocentesis Systolic CHF Family not interested in a LifeVest or AICD However EF has improved from 35% to 45% now Patient has bilateral lower extremity swelling I will continue IV Lasix EF 40 to 45% Intermittent tachycardia patient receives metoprolol at home Peripheral vascular disease cardiology recommended medical management Wound care: Follows up with Dr. Baird once a month Consistent carb diet Sliding scale DVT prophylaxis on board Patient is full code Plan for today, moved to general medical floors continue IV diuresis, continue to monitor clinically, monitor kidney function monitor hyperkalemia, Attestations 2 Medical Necessity Statement*: Patient requires hospitalization for CHF exacerbation requiring diuresis, fluid overload, SALLY, on CKD, hyperkalemia Diagnoses Acute hyperkalemia E87.5 Pleural effusion J90 Status post amputation of right foot through metatarsal bone Z89.431 Laterality: right Acute kidney injury superimposed on CKD N17.9; N18.9 CKD (chronic kidney disease) N18.9 Pulmonary infiltrate present on computed tomography R91.8 Non-pressure chronic ulcer of other part of right foot with necrosis of bone L97.514 Diabetic neuropathy E11.40 Ischemic cardiomyopathy I25.5 Systolic heart failure I50.20 Elevated hemidiaphragm J98.6 Atelectasis, left J98.11 Status post amputation of toe of right foot Z89.421 Typical atrial flutter I48.3 Atrial flutter type: typical Acute respiratory failure with hypoxia and hypercapnia J96.01; J96.02 NSTEMI (non-ST elevated myocardial infarction) I21.4 Systolic CHF, acute I50.21 Pulmonary edema J81.1 Fluid overload E87.70 Hyperkalemia E87.5
[2023-07-03 17:30] LABS: Glucose Point of Care 118 mg/dL (70-110)
--- NOTE | 2023-07-03 18:40 | PC.NURSE ---
Provider is notified of the monitor reading his last 2 blood pressures high. A manual blood pressure is taken and it 174/72. Provider said to just monitor for now.
[2023-07-03] MEDS: aspirin 81 mg EC Tablet PO (20:17)
[2023-07-03] MEDS: acetaminophen 500 mg Tablet PO (20:18)
--- NOTE | 2023-07-03 20:53 | PC.NURSE ---
Transferred to [facility]-2 via bed. at bedside. Bedside report given to Yakelin. No distress noted.
[2023-07-03 20:59] LABS: Glucose Point of Care 228 mg/dL (70-110)
--- NOTE | 2023-07-03 21:16 | PC.NURSE ---
TRANSFER FROM ICU Pt received from ICU at 2054. Alert and oriented. at bedside. Pt only c/o is of being cold. Warm blanket applied. O2 in place at 2l per NC and BIPAP up from ICU for use. Oriented to new room. Call light at bedside
[2023-07-03 23:31] LABS: T3 Free 1.4 PG/ML (2.0-4.4); Thyroid Stimulating Hormone 60.81 uIU/mL (0.27-4.20)
[2023-07-04] VITALS (10 sets, daily range): BP systolic 118–158; BP diastolic 65–81; PULSE 73–126; RESP 16–34; TEMP 36.4–36.8; O2SAT 92–97
[2023-07-04] MEDS: thyroid 60 mg Tablet PO (05:18)
[2023-07-04 06:14] LABS: Glucose Point of Care 193 mg/dL (70-110)
[2023-07-04 06:16] LABS: Basophils % 0.3 %; Eosinophils # 0.1 10^3/uL (0.0-0.8); Eosinophils % 1.5 %; Hematocrit 40.2 % (37-53); Lymphocytes # 2.9 10^3/uL (0.8-4.8); Lymphocytes % 30.6 %; Mean Corpuscular HGB Conc 29.1 g/dL (30-55); Mean Corpuscular Hemoglobin 25.9 pg (27-33); Mean Corpuscular Volume 89.1 fl (82-101); Mean Platelet Volume 8.9 fL (7.4-10.4); Monocytes # 0.5 10^3/uL (0.2-0.9); Monocytes % 5.1 %; Neutrophils # 5.97 10^3/uL (1.8-7.7); Neutrophils % 62.2 %; Nucleated Red Blood Cells % 0 %; Platelet Count 142 10^3/cmm (157-399); Red Blood Count 4.51 10^6/uL (3.85-5.65); Red Cell Distribution Width 15.7 % (12.1-15.1)
[2023-07-04 06:44] LABS: Alanine Aminotransferase 13 U/L (0-41); Albumin Level 3.8 g/dL (3.5-5.2); Alkaline Phosphatase 96 U/L (40-130); Anion Gap 11.4 (5-19); Aspartate Amino Transferase 17 U/L (0-40); Calcium 7.2 mg/dL (8.5-10.5); Carbon Dioxide 37 mmol/L (22-29); Chloride 101 mmol/L (98-107); Globulin 1.7 g/dL (1.3-4.6); Glucose 221 mg/dL (65-115); Magnesium 2.9 mg/dL (1.7-2.3); Osmolality Calculated 332 mOsm/kg (285-295); Phosphorus 4.2 mg/dL (2.5-4.5); Potassium 4.4 mmol/L (3.5-5.1); Sodium 145 mmol/L (136-145); Total Bilirubin 0.4 mg/dL (0.15-1.2); Total Protein 5.5 g/dL (6.6-8.7)
[2023-07-04 06:59] LABS: Blood Urea Nitrogen 82 mg/dL (8-23)
[2023-07-04 07:17] LABS: NT Pro B Type Natriuretic Pept 22634 pg/mL (0-125)
[2023-07-04] MEDS: mirtazapine 15 mg Tablet PO (08:43)
[2023-07-04] MEDS: thiamine 100 mg Tablet PO (08:43)
[2023-07-04] MEDS: heparin 5,000 unit/mL INJ 1 mL 5000 UNIT SUBCUT (08:44)
[2023-07-04] MEDS: insulin lispro 100 unit/1 mL SUBCUT (08:46)
[2023-07-04] MEDS: albumin 25 G/100 ML BAG 60 G IV ×3 (08:47→23:26)
[2023-07-04] MEDS: metOLazone 5 MG Tablet PO (09:29)
[2023-07-04] MEDS: liothyronine 5 mcg Tablet 10 MCG PO (09:29)
[2023-07-04] MEDS: FUROsemide 10 mg/mL SDV 4mL 40 MG IVP (09:30)
[2023-07-04] MEDS: insulin glargine 100 units/1 mL 20 UNIT SUBCUT (09:59)
--- NOTE | 2023-07-04 11:26 | PC.SOCIAL ---
Pg 2 IMM Explained to pt Pg 2 IMM. No questions voiced. Provided pt a copy. Initialed, dated, & timed a copy & placed in chart.
[2023-07-04 11:30] LABS: Glucose Point of Care 117 mg/dL (70-110)
--- NOTE | 2023-07-04 11:51 | P.PN_ITS ---
Subjective 2 Subjective: no new complaints Medications: Reviewed: Yes Vitals/I&O/Wt Last Vital Signs Temp 97.6 F 07/04/23 11:34 Pulse 89 07/04/23 11:34 Resp 19 H 07/04/23 11:34 BP 138/69 07/04/23 11:34 Pulse Ox 93 07/04/23 11:34 O2 Del Method Nasal Cannula 07/04/23 11:34 O2 Flow Rate 2 07/04/23 07:22 FiO2 28 07/03/23 21:50 07/03/23 07/04/23 07/04/23 22:59 06:59 14:59 Intake Total 420 / 640 300 / 940 580 / 580 Output Total 850 / 850 725 / 1575 Balance -430 / -210 -425 / -635 580 / 580 Weight last 48 hrs Weight 110.223 kg Weight 107.671 kg Physical Exam 2 Narrative: Awake, no acute distress Urinary Catheter Management: Kincaid: Cath Placed During This Visit: yes Reason for Continuing Indwelling Catheter: Other Urinary Catheter Date of Insertion: 07/02/23 Urinary Catheter Time of Insertion: 03:30 Data 07/04/23 06:05 07/04/23 06:05 A&P Assessment and plan (1) Acute kidney injury superimposed on CKD: Plan 1. Acute on chronic kidney disease stage III: Baseline creatinine is in the mid 1 range, had prior SALLY requiring temporary hemodialysis due to contrast nephropathy -Patient now presented with SALLY with a creatinine of 3.5 on presentation likely prerenal/ATN. Nonoliguric. Also has hyperkalemia with a potassium of 6.1. -Cr stable @ 3.1 ,getting IV albumin , holding off lasix - for another day sec to met alkalosis , avoid contrast studies -UA with 1+ protein, - , UOP reasonable 2. Hyperkalemia: Medical management, low K diet, repeat BMP pending 3. Hyponatremia: improved 4. History of CHF, with low ejection fraction 35 to 45%, status post diuretics , on hold now 5. History of peripheral vascular disease and right TMA in the past 6. Metabolic alkalosis - contraction alkalosis Patient evaluated using audiovisual cart. Time spent 20minutes. Attestations 2 Medical Necessity Statement*: per medicie team Coding Level of Care Code Acute Code for Chg Fwd Diagnoses Acute kidney injury superimposed on CKD N17.9; N18.9
--- NOTE | 2023-07-04 14:42 | ECG_ITS ---
[facility] Test Date: 2023-07-04 Pat Name: Usman Alvarez Department: Room: 278 Gender: Male Pill Packer: : [id number] Requested By: Vitaly Leyva Order Number: [id number] Diandra MD: Harry Bryant M.D. Measurements Intervals [place] Rate: 179 P: 0 MD: 0 QRS: 35 QRSD: 97 T: 236 QT: 241 QTc: 417 Interpretive Statements SUPRAVENTRICULAR TACHYCARDIA INCOMPLETE RIGHT BUNDLE BRANCH BLOCK [90+ ms QRS DURATION, TERMINAL R IN V1/V2, 40+ ms S IN I/aVL/V4/V5/V6] ST DEVIATION AND MODERATE T-WAVE ABNORMALITY, CONSIDER ANTEROLATERAL ISCHEMIA [-0.1+ mV T-WAVE IN V3-V6] ST DEVIATION AND MODERATE T-WAVE ABNORMALITY, CONSIDER INFERIOR ISCHEMIA [-0.1+ mV T-WAVE IN II/aVF] CRITICAL TEST RESULT Compared to ECG 07/02/2023 11:09:05 Incomplete right bundle-branch block now present Possible ischemia now present Sinus rhythm no longer present Myocardial infarct finding no longer present T-wave abnormality still present Electronically Signed On 07-07-2023 8:19:23 INSEAM TRIMMING MACHINE OPERATOR by Harry Bryant M.D. [id number]
[2023-07-04] MEDS: adenosine 3 mg/mL SDV 2mL IVP (15:16)
[2023-07-04] MEDS: metoprolol tartrate 1 mg/1 mL SDV 5 mL 5 MG IVP (15:16)
--- NOTE | 2023-07-04 15:17 | PC.NURSE ---
I presented to the room and patient was connected to EKG with A Fib with RVR converting to SVT in Lead II. Julissa Ferrera RN placed patient on Zoll monitor. Continued monitoring, patient HR increased to 150-[address] Leyva at the bedside and gave verbal order for Adenosine 6 mg IV push. Order placed and medication drawn up, pushed using stop-cock and rapid administration method with the assistance of Julissa Ferrera RN pushing flush immediately behind dose. Patient had no pause in rhythm or cardiac activity, but did decrease rate to 105-110. Monitored patient for 5 minutes and HR continued to increase and decrease erratically between [address] Leyva ordered for patient to be placed on an Amiodarone gtt and transferred to CSU. Patient's spouse at bedside and is agreeable with plan of care.
[2023-07-04] MEDS: metoprolol tartrate 25 mg Tablet PO (15:21)
--- NOTE | 2023-07-04 15:40 | PC.OT ---
OT tx attempted at this time. Pt currently having issues with increased heart rate and in the process of being transferred to CSU fro continued care. Hold OT tx at this time.
[2023-07-04 15:51] LABS: Glucose Point of Care 38 mg/dL (70-110)
[2023-07-04 15:53] LABS: Basophils # 0.1 10^3/uL (0.0-0.1); Basophils % 0.4 %; Eosinophils # 0.2 10^3/uL (0.0-0.8); Eosinophils % 1.4 %; Lymphocytes # 3.2 10^3/uL (0.8-4.8); Lymphocytes % 28.3 %; Mean Corpuscular HGB Conc 28.5 g/dL (30-55); Mean Corpuscular Hemoglobin 26.2 pg (27-33); Mean Corpuscular Volume 91.7 fl (82-101); Mean Platelet Volume 10.3 fL (7.4-10.4); Monocytes # 0.6 10^3/uL (0.2-0.9); Neutrophils # 7.17 10^3/uL (1.8-7.7); Neutrophils % 64.6 %; Nucleated Red Blood Cells % 0 %; Platelet Count 146 10^3/cmm (157-399); Red Blood Count 4.47 10^6/uL (3.85-5.65); Red Cell Distribution Width 15.8 % (12.1-15.1); White Blood Count 11.12 10^3/uL (3.29-11.43)
[2023-07-04] MEDS: dextrose 50% syringe 50 mL IVP (15:54)
[2023-07-04 16:17] LABS: Alanine Aminotransferase 12 U/L (0-41); Albumin Level 3.6 g/dL (3.5-5.2); Alkaline Phosphatase 80 U/L (40-130); Blood Urea Nitrogen 77 mg/dL (8-23); Calcium 7.6 mg/dL (8.5-10.5); Carbon Dioxide 35 mmol/L (22-29); Chloride 100 mmol/L (98-107); Globulin 1.9 g/dL (1.3-4.6); Magnesium 2.9 mg/dL (1.7-2.3); Osmolality Calculated 317 mOsm/kg (285-295); Sodium 144 mmol/L (136-145); Total Bilirubin 0.5 mg/dL (0.15-1.2); Total Protein 5.5 g/dL (6.6-8.7)
[2023-07-04 16:34] LABS: Glucose Point of Care 101 mg/dL (70-110)
[2023-07-04 16:46] LABS: Anion Gap 12.8 (5-19); Aspartate Amino Transferase 20 U/L (0-40); Glucose 35 mg/dL (65-115); Potassium 3.8 mmol/L (3.5-5.1)
--- NOTE | 2023-07-04 17:00 | PC.NURSE ---
received from [facility] unit at 1635 via bed.report received.pt in svt/afib on monitor with rate 120'2-140's.bp 118/65.denies chest pain,sob.alert and awake.blood sugar 101 on arrival to unit. noted to have converted to nsr at approx 1650.dr rosales notified.he ordered to hold cardizem drip .pt instructed in turn of events...and oriented to room environment.instructed to notify staff for any chest pain,sob,or for any concerns at all.pt verb understanding of instructions
--- NOTE | 2023-07-04 17:46 | P.PN_ITS ---
Subjective 2 Subjective: - Patient was seen this morning, is at bedside, continues to complain shortness of breath, fatigue, malaise, ? Patient tells me that the Remeron has not really helped with his sleep, ? Patient tells me that he has not taken his thyroid medication in over a week due to nausea, not feeling well, we discussed his TSH being over 60, likely etiology behind his weakness, fatigue, low T3, T4, will resume and monitor his TSH, given his persistent fatigue, malaise, will dose 1 dose Cytomel ? He does report no fevers, no chills, he was gotten up to a chair with physical therapy, ? We discussed with his monitoring his kidney function and monitoring his urine output, he is agreeable he is a bit uncomfortable with the Kincaid catheter in place we will decide in the evening time if he needs to be removed, ? At roughly 4 PM or so patient had episodes with SVT versus A-fib, ? Did vagal maneuvers, ice pack without improvement of heart rates, heart rates went as high as 190s ? Initially it looked like SVT, but then it started to look like A-fib on the telemetry monitoring, ? Looking at patient, he is alert to person, to place, not time he was fatigue and tired, short of breath, did follow commands, did not appear to be in respiratory distress, is at bedside, she tells me that this happens time to time, nursing staff reports that he had a coughing fit and right after that he went into SVT heart rates in the 190s versus A-fib ? Given 5 mg IV push metoprolol, heart rates did improve to the 140s, on the monitors it showed SVT, ? Patient was given 6 mg of IV push adenosine 5 minutes after, heart rates came down to the low 100s, patient was much more alert, heart rates in the 1 low 100s sometimes going to the 120s, EKG showed A-fib with RVR, ? Plan was to move him down to the CSU to be placed on a Cardizem drip as an allergic reaction amiodarone, ? Was given 25 mg of p.o. metoprolol, ? Patient was moved down to CSU, in CSU he was in A-fib then converted to normal sinus rhythm, currently in sinus rhythm, ? Vitals/I&O/Wt Last Vital Signs Temp 97.6 F 07/04/23 11:34 Pulse 82 07/04/23 16:00 Resp 26 H 07/04/23 16:00 BP 118/65 07/04/23 16:00 Pulse Ox 97 07/04/23 16:00 O2 Del Method Nasal Cannula 07/04/23 11:34 O2 Flow Rate 2 07/04/23 07:22 FiO2 28 07/03/23 21:50 07/04/23 07/04/23 07/04/23 06:59 14:59 22:59 Intake Total 300 / 940 640 / 640 Output Total 725 / 1575 Balance -425 / -635 640 / 640 Weight last 48 hrs Weight 110.223 kg Weight 107.671 kg Physical Exam 2 Const: COMMON NORMALS: no acute distress and patient oriented x3 Neck/C-Spine: COMMON NORMALS: no JVD Resp: COMMON NORMALS: normal respiratory effort, No retractions, No use of accessory muscles and clear to auscultation bilaterally AUSCULTATION: clear to auscultation bilaterally Cardio: COMMON NORMALS: no JVD, regular rate, regular rhythm, S1 normal heart sound present and S2 normal heart sound present RATE: regular rate RHYTHM: regular rhythm HEART SOUNDS: S1 normal heart sound present and S2 normal heart sound present GI: COMMON NORMALS: Normal to inspection, nondistended, normoactive bowel sounds present and non-tender Extremity: COMMON NORMALS: no pedal edema Neuro: COMMON NORMALS: patient oriented x3 Psych: COMMON NORMALS: mental status grossly normal Urinary Catheter Management: Kincaid: Cath Placed During This Visit: yes Reason for Continuing Indwelling Catheter: Other Urinary Catheter Date of Insertion: 07/02/23 Urinary Catheter Time of Insertion: 03:30 Data 07/04/23 15:45 07/04/23 15:45 A&P Assessment and plan (1) Acute hyperkalemia: (2) Pleural effusion: (3) S/P transmetatarsal amputation of foot: Qualifiers: Laterality: right Qualified Code(s): Z89.431 - Acquired absence of right foot (4) Acute kidney injury superimposed on CKD: (5) CKD (chronic kidney disease): (6) Pulmonary infiltrate present on computed tomography: (7) Non-pressure chronic ulcer of other part of right foot with necrosis of bone: (8) Diabetic neuropathy: (9) Ischemic cardiomyopathy: (10) Systolic heart failure: (11) Elevated hemidiaphragm: (12) Atelectasis, left: (13) Status post amputation of toe of right foot: (14) Atrial flutter: Qualifiers: Atrial flutter type: typical Qualified Code(s): I48.3 - Typical atrial flutter (15) Acute respiratory failure with hypoxia and hypercapnia: (16) NSTEMI (non-ST elevated myocardial infarction): (17) Systolic CHF, acute: (18) Pulmonary edema: (19) Fluid overload: (20) Hyperkalemia: (21) Hypothyroidism: (22) SVT (supraventricular tachycardia): (23) Atrial fibrillation with RVR: Plan Acute hypoxic hypercarbic respiratory failure ? Secondary to pulm edema, fluid overload, systolic CHF, ? Plan, ? Monitor intensive care unit, ? Continue BiPAP therapy, ? Monitor ABG, ? Monitor respiratory status, ? -4 L so far, creatinine 3.2, IV doses of Lasix this morning ? Monitor creatinine monitor urine output, monitor potassium ? Full code, ? Heparin for DVT prophylaxis Systolic CHF, ? Repeat cardiac echo, CONCLUSIONS Limited echo to assess the LV function. Mild concentric LVH. Mildly reduced LV systolic function with hypokinesis of mid anterior and anteroseptal wall segments. Estimated LVEF is mildly reduced 45 to 50%. Aortic valve appears significantly thickened with sclerosis and restricted movements of aortic valve leaflets. However any stenosis or regurgitation was not evaluated during the study. ? As above, NSTEMI, History of CAD, stenting x1, ? Type I versus type II NSTEMI ? Acute respiratory failure, ? Plan, ? Serial EKGs, serial troponins, telemetry monitoring, ? Cardiac echo as above, does show mildly reduced ejection fraction ? Aspirin, statin, ? No chest pain complaints, will continue to monitor, consider stress testing either inpatient versus outpatient depending on clinical progress Acute on chronic kidney disease Creatinine 3.2 Nephro consulted Required temporary dialysis for contrast-induced nephropathy in the past Hyperkalemia, improving ? With underlying CKD, ? Several doses of insulin, D50, Kayexalate have been given, with Lasix as above ? Currently on scheduled Kayexalate Acute hypoxia requiring 2 L Related pleural effusion Right pleural effusion, will consider thoracocentesis Systolic CHF Family not interested in a LifeVest or AICD However EF has improved from 35% to 45% now Patient has bilateral lower extremity swelling I will continue IV Lasix EF 40 to 45% Intermittent tachycardia patient receives metoprolol at home Peripheral vascular disease cardiology recommended medical management SVT, status post adenosine, A-fib with RVR, converted to normal sinus rhythm, currently on metoprolol Wound care: Follows up with Dr. Baird once a month Consistent carb diet Sliding scale DVT prophylaxis on board - Patient was seen this morning, is at bedside, continues to complain shortness of breath, fatigue, malaise, ? Patient tells me that the Remeron has not really helped with his sleep, ? Patient tells me that he has not taken his thyroid medication in over a week due to nausea, not feeling well, we discussed his TSH being over 60, likely etiology behind his weakness, fatigue, low T3, T4, will resume and monitor his TSH, given his persistent fatigue, malaise, will dose 1 dose Cytomel ? He does report no fevers, no chills, he was gotten up to a chair with physical therapy, ? We discussed with his monitoring his kidney function and monitoring his urine output, he is agreeable he is a bit uncomfortable with the Ikncaid catheter in place we will decide in the evening time if he needs to be removed, ? At roughly 4 PM or so patient had episodes with SVT versus A-fib, ? Did vagal maneuvers, ice pack without improvement of heart rates, heart rates went as high as 190s ? Initially it looked like SVT, but then it started to look like A-fib on the telemetry monitoring, ? Looking at patient, he is alert to person, to place, not time he was fatigue and tired, short of breath, did follow commands, did not appear to be in respiratory distress, is at bedside, she tells me that this happens time to time, nursing staff reports that he had a coughing fit and right after that he went into SVT heart rates in the 190s versus A-fib ? Given 5 mg IV push metoprolol, heart rates did improve to the 140s, on the monitors it showed SVT, ? Patient was given 6 mg of IV push adenosine 5 minutes after, heart rates came down to the low 100s, patient was much more alert, heart rates in the 1 low 100s sometimes going to the 120s, EKG showed A-fib with RVR, ? Plan was to move him down to the CSU to be placed on a Cardizem drip as an allergic reaction amiodarone, ? Was given 25 mg of p.o. metoprolol, ? Patient was moved down to CSU, in CSU he was in A-fib then converted to normal sinus rhythm, currently in sinus rhythm, ? Patient is full code Attestations 2 Medical Necessity Statement*: Patient requires hospitalization, due to SVT, A-fib with RVR, respiratory failure requiring diuresis, Coding Level of Care Code Critical Care >/= 30 minutes Critical care time (in minutes): 35 The high probability of a clinically significant, sudden or life threatening deterioration, as referenced in this documentation, required my full and direct attention, intervention and personal management. The critical care time shown is in addition to time spent performing any reported separately billable procedures and includes the following: [x] Data and vital sign review and interpretation [x ] Patient assessment, examination and intervention [x] Medication orders and management [x] Patient/Family updates as able [x] Care Coordination and Documentation. Diagnoses Acute hyperkalemia E87.5 Pleural effusion J90 Status post amputation of right foot through metatarsal bone Z89.431 Laterality: right Acute kidney injury superimposed on CKD N17.9; N18.9 CKD (chronic kidney disease) N18.9 Pulmonary infiltrate present on computed tomography R91.8 Non-pressure chronic ulcer of other part of right foot with necrosis of bone L97.514 Diabetic neuropathy E11.40 Ischemic cardiomyopathy I25.5 Systolic heart failure I50.20 Elevated hemidiaphragm J98.6 Atelectasis, left J98.11 Status post amputation of toe of right foot Z89.421 Typical atrial flutter I48.3 Atrial flutter type: typical Acute respiratory failure with hypoxia and hypercapnia J96.01; J96.02 NSTEMI (non-ST elevated myocardial infarction) I21.4 Systolic CHF, acute I50.21 Pulmonary edema J81.1 Fluid overload E87.70 Hyperkalemia E87.5 Hypothyroidism E03.9 SVT (supraventricular tachycardia) I47.1 Atrial fibrillation with RVR I48.91
--- NOTE | 2023-07-04 18:57 | PC.NURSE ---
pt took a few bites of food and immediately regurgitated it up and out. aware.
[2023-07-04] MEDS: glucagon 1 mg/mL KIT 1 mL IM (20:16)
[2023-07-04 20:31] LABS: Glucose Point of Care 38 mg/dL (70-110)
--- NOTE | 2023-07-04 20:36 | PC.NURSE ---
at ~2000 Family and patient requested to have blood sugar checked due to sudden not feeling well. Found patient blood sugar to be at 38. Found Dr Frances on the floor and informed him of patient's condition. Patient is currently unable to swallow anything. Glucagon given as ordered and Dr Frances added D10W at 100ml/hr for maintenance. Patient reports feeling some better. Spouse remains at bedside. Patient tried a popsicle and was not able to eat it due to inability to swallow. Speech therapy has been consulted. Patient unable to swallow medications at this time. Will check with him later and continue to monitor blood sugars.
[2023-07-04] MEDS: dextrose 10% 1,000 ML 100 ML IV (20:40)
--- NOTE | 2023-07-04 20:57 | PC.NURSE ---
Patient's current blood sugar is 121. Patient reports feeling better.
[2023-07-04 21:41] LABS: Glucose Point of Care 121 mg/dL (70-110)
[2023-07-04 21:43] LABS: Anion Gap 8.4 (5-19); Blood Urea Nitrogen 76 mg/dL (8-23); Calcium 7.6 mg/dL (8.5-10.5); Carbon Dioxide 40 mmol/L (22-29); Chloride 101 mmol/L (98-107); Glucose 109 mg/dL (65-115); Osmolality Calculated 325 mOsm/kg (285-295); Potassium 3.4 mmol/L (3.5-5.1); Sodium 146 mmol/L (136-145)
[2023-07-04] MEDS: acetaminophen 500 mg Tablet PO (23:25)
--- NOTE | 2023-07-04 23:31 | PC.NURSE ---
Patient wanted to attempt to take a tylenol at this time. Patient says it goes a little way and then everything just comes back up. Unable to keep anything down. Not emesis however.
[2023-07-05] VITALS (27 sets, daily range): BP systolic 74–172; BP diastolic 52–117; PULSE 66–146; RESP 3–35; TEMP 36.5–37; O2SAT 83–100
[2023-07-05] MEDS: morphine 4 mg/mL SDV 1 mL 2 MG IVP ×3 (01:42→23:19)
[2023-07-05 03:52] LABS: Basophils % 0.2 %; Eosinophils # 0.1 10^3/uL (0.0-0.8); Eosinophils % 0.6 %; Hematocrit 42.6 % (37-53); Lymphocytes # 2.1 10^3/uL (0.8-4.8); Lymphocytes % 16.6 %; Mean Corpuscular HGB Conc 28.2 g/dL (30-55); Mean Corpuscular Volume 92.2 fl (82-101); Mean Platelet Volume 9.5 fL (7.4-10.4); Monocytes # 0.6 10^3/uL (0.2-0.9); Monocytes % 4.5 %; Neutrophils # 9.79 10^3/uL (1.8-7.7); Neutrophils % 77.9 %; Nucleated Red Blood Cells % 0 %; Platelet Count 119 10^3/cmm (157-399); Red Blood Count 4.62 10^6/uL (3.85-5.65); Red Cell Distribution Width 15.7 % (12.1-15.1); White Blood Count 12.56 10^3/uL (3.29-11.43)
--- NOTE | 2023-07-05 03:53 | PC.NURSE ---
Performed dressing change to right foot. Removed old dressing. Noted area of amputation to be healing well with minimal drainage to site. Replaced dressing using betadine and gauze wet/dry. Wrapped with kerlix and tape. Patient requested to leave boot off at this time. Performed dressing change to left stanley. Removed serous fluid soaked dressing from left stanley. Observed area of blister that has drained and as area of skin peeling away. Cleaned area with normal saline. Applied abd and wrapped with kerlix. Patient tolerated procedures well.
[2023-07-05 04:24] LABS: Alanine Aminotransferase 14 U/L (0-41); Albumin Level 4.1 g/dL (3.5-5.2); Alkaline Phosphatase 83 U/L (40-130); Anion Gap 12.5 (5-19); Aspartate Amino Transferase 24 U/L (0-40); Blood Urea Nitrogen 72 mg/dL (8-23); Calcium 7.4 mg/dL (8.5-10.5); Carbon Dioxide 36 mmol/L (22-29); Chloride 101 mmol/L (98-107); Globulin 1.6 g/dL (1.3-4.6); Glucose 154 mg/dL (65-115); Magnesium 2.7 mg/dL (1.7-2.3); Osmolality Calculated 326 mOsm/kg (285-295); Phosphorus 4.3 mg/dL (2.5-4.5); Potassium 3.5 mmol/L (3.5-5.1); Sodium 146 mmol/L (136-145); Total Bilirubin 0.7 mg/dL (0.15-1.2); Total Protein 5.7 g/dL (6.6-8.7)
[2023-07-05 04:28] LABS: Free T4 Free Thyroxine 0.38 ng/dL (0.82-1.77); T3 Free 1.6 PG/ML (2.0-4.4)
[2023-07-05 04:35] LABS: NT Pro B Type Natriuretic Pept 27875 pg/mL (0-125); Thyroid Stimulating Hormone 41.64 uIU/mL (0.27-4.20)
--- NOTE | 2023-07-05 05:41 | PC.NURSE ---
Patient's heart rate increased to 190 sustained for about 2 min then decreased back to 69 NSR. Then increased again to 170s then dropped again. Patient is now currently sustaining 150s. Dr Frances notified. In to see patient. Verified with spouse regarding amiodarone allergy. ordering Amiodarone 150mg IVP times.
--- NOTE | 2023-07-05 06:03 | ECG_ITS ---
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 Measurements Intervals [place] Rate: 138 P: 111 IA: 169 QRS: 47 QRSD: 105 T: -19 QT: 355 QTc: 540 Interpretive Statements SINUS TACHYCARDIA LOW QRS VOLTAGE [QRS DEFLECTION < 0.5/1.0 mV IN LIMB/CHEST LEADS] NONSPECIFIC ST & T-WAVE ABNORMALITY INTERPRETATION BASED ON A DEFAULT AGE OF 40 YEARS Compared to ECG 07/04/2023 14:45:03 Low QRS voltage now present Supraventricular tachycardia no longer present Incomplete right bundle-branch block no longer present Possible ischemia no longer present T-wave abnormality still present Electronically Signed On 07-07-2023 8:18:36 PROJECT MANAGER PROCESS DEVELOPMENT by Harry Bryant M.D. [id number]
[2023-07-05] MEDS: sodium chloride 0.9% 250 ML 999 ML IV (06:21)
[2023-07-05] MEDS: amiodarone 50 mg/mL SDV 3 mL 150 MG IVP (06:21)
--- NOTE | 2023-07-05 06:26 | W.PM.EVENTAC ---
Event Notes Attestations Time Spent in Patient Care: I examined the patient when he was showing signs of tachyarrhythmia Heart rate was fluctuating Initial rhythm was sinus however EKG did verify atrial fibrillation Patient was put on BiPAP his D10 Patient was able to answer questions He was saturating low 80s his FiO2 was increased that improved his hypoxia Magnesium was above 2, potassium below 4 Creatinine plateaued Assessment and plan Paroxysmal A-fib I did verify amiodarone side effect with the stated that she read online that it is hard on the kidneys, she has drug journal which she is using I requested 150 mg of amiodarone, this was pushed relatively fast within a minute instead of 10 minutes that dropped her blood pressure Heart rate improved to low 70s, however blood pressure dropped to 80/54mmhg, I gave him 250 mill bolus which improved his blood pressure current map is around 80, blood pressure 110/70 mmHg now I do believe hypotension was related to rapid push of amiodarone, I would not put him on amiodarone drip, Patient will need cardiology consultation for his paroxysmal A-fib he cannot take any p.o. medication because he has been vomiting, not a good candidate for digoxin because of kidney issue
[2023-07-05 06:38] LABS: Glucose Point of Care 123 mg/dL (70-110)
--- NOTE | 2023-07-05 06:48 | PC.NURSE ---
Dr Frances in to see patient. Patient's heart sustaining 140s. decreased in blood pressure after giving amiodarone. NS 250ml bolus given. BP recovered. Patient transferred to ICU 5.
[2023-07-05 07:52] LABS: Glucose Point of Care 112 mg/dL (70-110)
--- NOTE | 2023-07-05 08:34 | XRR_ITS ---
PROCEDURE INFORMATION: Exam: XR Chest Exam date and time: 07/05/2023 10:33 AM Age: 73 years old Clinical indication: Shortness of breath; Additional info: SOB TECHNIQUE: Imaging protocol: Radiologic exam of the chest. Views: 1 view. COMPARISON: CT chest con [id number] 07/01/2023 6:24 PM FINDINGS: Lungs: Unchanged bilateral lower lung atelectasis and/or pneumonitis. Pleural spaces: Unchanged large right pleural effusion. Unchanged small left pleural effusion. No pneumothorax. Heart/Mediastinum: Unremarkable. No cardiomegaly. Bones/joints: Unchanged mild and moderate multilevel spondylosis. Unchanged shoulder arthritis. XR/XR chest 1V portable [id number] IMPRESSION: Unchanged bilateral pleural effusions and bibasilar atelectasis and/or pneumonitis.
[2023-07-05] MEDS: albumin 25 G/100 ML BAG 60 G IV ×3 (08:41→20:53)
[2023-07-05] MEDS: ondansetron 2 mg/ML SDV 2 mL 4 MG IVP (08:46)
[2023-07-05] MEDS: FUROsemide 10 mg/mL SDV 4mL 40 MG IVP ×3 (08:46→21:09)
[2023-07-05 09:22] LABS: ABG PH Result 7.31 (7.35-7.45); Arterial Blood Gas Hematocrit 34.9 % (42-52); Base Excess ABG 11.1 mmol/L (-2.0-2.0); Blood Gas Allen Test Pos; Blood Gas Operator Identificat CAK; Blood Gas Sample Site Radial, left; Blood Gas Sample Type Arterial; Oxygen Device BIPAP; PO2 ABG 83.3 mmHg (80.0-100.0); PO2 FiO2 Ratio Arterial Blood 0
[2023-07-05 09:23] LABS: ABG PCO2 79.1 mmHg (35-45)
[2023-07-05] MEDS: dextrose 50% syringe 50 mL IVP (09:59)
[2023-07-05 11:35] LABS: Glucose Point of Care 107 mg/dL (70-110)
[2023-07-05 11:35] LABS: Glucose Point of Care 118 mg/dL (70-110)
[2023-07-05 11:35] LABS: Glucose Point of Care 93 mg/dL (70-110)
--- NOTE | 2023-07-05 13:08 | XRR_ITS ---
PROCEDURE INFORMATION: Exam: XR Chest Exam date and time: 07/05/2023 1:10 PM Age: 73 years old Clinical indication: Other: Possible pe; Additional info: Pulmonary edema TECHNIQUE: Imaging protocol: Radiologic exam of the chest. Views: 1 view. COMPARISON: CR (CHEST, ) 07/05/2023 10:33 AM FINDINGS: Lungs: Unchanged bilateral atelectasis and/or pneumonitis. Pleural spaces: Unchanged bilateral pleural effusions. Heart/Mediastinum: Unremarkable. No cardiomegaly. Bones/joints: No change. XR/XR chest 1V portable [id number] IMPRESSION: No change.
--- NOTE | 2023-07-05 13:14 | PC.SLP ---
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 Leyva.
[2023-07-05] MEDS: norepinephrine 4 MG/250 ML BAG 11.25 MG IV (13:16)
[2023-07-05] MEDS: hydrocortisone 100 mg/2 mL SDV IVP (13:36)
--- NOTE | 2023-07-05 13:40 | SUR.PREOP ---
TIME OUT FOR PICC LINE INSERTION.
--- NOTE | 2023-07-05 14:44 | PC.NURSE ---
Event Patient has been resting well on bipap for the duration of this shift until around 1330. Patient woke up and wanted to sit on the side of the bed. This nurse took bipap off and placed 4L nc on. Patient sat on the side of the bed and began to feel unwell. Dizzy and lightheaded. Patient laid back in bed and became hypoxic and unresponsive, blood pressure dropped to a MAP of 52. Albumin, Levophed, and a 250ml bolus was given per physician orders. Bipap was placed back on and patient has been resting. Blood pressure has recovered. Nurse will continue to monitor patient closely.
[2023-07-05 15:23] LABS: Glucose Point of Care 95 mg/dL (70-110)
--- NOTE | 2023-07-05 17:04 | P.PN_ITS ---
Subjective 2 Subjective: Patient was examined multiple times throughout the morning, early in the morning he was seen, he is alert, awake, did not follow commands was on BiPAP, heart rates were atrial fibrillation, but heart rates are well controlled, patient's is at bedside, she tells me that he did not sleep throughout the night, he does awaken, but easily falls back asleep, will hold off on speech therapy eval until the afternoon, will keep n.p.o. continue BiPAP monitor heart rate, was given metoprolol, Lasix, albumin and monitored ? At about noon time, patient was got up to the side of the bed, became suddenly hypotensive, less responsive, ? Immediately examined patient, systolic 70s over 40s, patient was blue, cyanotic, closest O2 sats in the 90s, heart rates in the 90s, look like atrial fibrillation, he is nonresponsive, ? Placed in Trendelenburg, blood pressures improved slightly to 80s over 50s, becoming a bit more responsive, ? Was placed on BiPAP, was given a dose of albumin, started on low-dose Levophed at 4, ? Immediately thereafter, his blood pressures improved to 160s over 80s he is much more alert and awake, can follow some commands, heart rates are still in the low 100s, looks like atrial fibrillation, kept on BiPAP has diffuse crackles on exam ? We will give another dose of Lasix continue Levophed, monitor urine output, ? Had extensive discussion with at bedside, patient has had episodes of A- fib with RVR requiring amiodarone bolus, during the nighttime, now with worsening respiratory failure, ? We had extensive discussion about her thoughts of goals of care, for now she wants to keep Usman a full code, she wants us to do everything, if need be she is okay with elective intubation, ? Early in the morning we had discussions about possible elective intubation, when he became hypotensive and unresponsive, but after our interventions, he was much more alert and awake, and his respiratory status improved, so decision was made to hold off on intubation for now continue to monitor status very closely in the ICU, patient's is agreeable ? Discussed morbidity and mortality associate with respiratory failure, A-fib, his current clinical condition, she voiced understanding, all questions answered, shared decision making, agreed to proceed, ? Examined multiple times about the evening, remains in sinus rhythm, urine output about 1100, resting comfortably on BiPAP, no episodes of agitation, will continue to monitor in the ICU, 1 more dose of IV Lasix this evening, will see if we can give him his Eliquis and metoprolol tonight, Vitals/I&O/Wt Last Vital Signs Temp 98.6 F 07/05/23 04:00 Pulse 70 07/05/23 16:00 Resp 6 L 07/05/23 16:00 BP 122/72 07/05/23 16:00 Pulse Ox 98 07/05/23 16:00 O2 Del Method BiPAP 07/05/23 09:44 O2 Flow Rate 2 07/05/23 02:29 FiO2 35 07/05/23 15:48 07/05/23 07/05/23 07/05/23 06:59 14:59 22:59 Intake Total 1308.333 / 2398.433 100 / 100 100 / 200 Output Total 600 / 850 Balance 708.333 / 1548.433 100 / 100 100 / 200 Weight last 48 hrs Weight 104.553 kg Weight 110.223 kg Physical Exam 2 Const: COMMON NORMALS: no acute distress EXAM LIMITATIONS: altered mental status ORIENTATION/CONSCIOUSNESS: Yes awake, Yes oriented to person, Yes oriented to place and Yes confused; not oriented to time Eye: COMMON NORMALS: Equal, round and reactive pupils present PUPIL: Yes Equal, round and reactive pupils present Neck/C-Spine: COMMON NORMALS: no JVD Resp: COMMON NORMALS: normal respiratory effort, No retractions and No use of accessory muscles AUSCULTATION: crackles Cardio: COMMON NORMALS: no JVD, S1 normal heart sound present and S2 normal heart sound present RATE: tachycardic RHYTHM: abnormal rhythm HEART SOUNDS: S1 normal heart sound present and S2 normal heart sound present GI: COMMON NORMALS: Normal to inspection, nondistended, normoactive bowel sounds present and non-tender Extremity: NARRATIVE EXTREMITY EXAM: 2+ pitting edema Neuro: SENSORIUM/ORIENTATION: Yes oriented to person, Yes oriented to place and No oriented to time Psych: COMMON NORMALS: mental status grossly normal Urinary Catheter Management: Kincaid: Cath Placed During This Visit: yes Reason for Continuing Indwelling Catheter: Acute Urinary Retention or Obstruction Urinary Catheter Date of Insertion: 07/02/23 Urinary Catheter Time of Insertion: 03:30 Data 07/05/23 03:43 07/05/23 03:43 A&P Assessment and plan (1) Acute hyperkalemia: (2) Pleural effusion: (3) S/P transmetatarsal amputation of foot: Qualifiers: Laterality: right Qualified Code(s): Z89.431 - Acquired absence of right foot (4) Acute kidney injury superimposed on CKD: (5) CKD (chronic kidney disease): (6) Pulmonary infiltrate present on computed tomography: (7) Non-pressure chronic ulcer of other part of right foot with necrosis of bone: (8) Diabetic neuropathy: (9) Ischemic cardiomyopathy: (10) Systolic heart failure: (11) Elevated hemidiaphragm: (12) Atelectasis, left: (13) Status post amputation of toe of right foot: (14) Atrial flutter: Qualifiers: Atrial flutter type: typical Qualified Code(s): I48.3 - Typical atrial flutter (15) Acute respiratory failure with hypoxia and hypercapnia: (16) NSTEMI (non-ST elevated myocardial infarction): (17) Systolic CHF, acute: (18) Pulmonary edema: (19) Fluid overload: (20) Hyperkalemia: (21) Hypothyroidism: (22) SVT (supraventricular tachycardia): (23) Atrial fibrillation with RVR: (24) PNA (pneumonia): Plan Acute encephalopathy, ? Likely secondary to fluid overload, pulmonary edema ? Monitor mentation closely, ? Neurochecks, aspiration precautions, Acute hypoxic hypercarbic respiratory failure ? Secondary to pulm edema, fluid overload, systolic CHF, ? Plan, ? Monitor intensive care unit, ? Continue BiPAP therapy, ? Monitor ABG, in a.m. ? Monitor respiratory status, ?Continue low-dose Levophed, albumin therapy, ? 1 dose of Lasix tonight ? Monitor creatinine monitor urine output, monitor potassium ? Full code, ? Heparin for DVT prophylaxis Pneumonia Chest x-ray shows bibasilar atelectasis and/or pneumonitis Possible aspiration event given his altered mental status, hypotension episode, A-fib with RVR, his choking spells? keep n.p.o. Speech therapy eval vancomycin aztreonam Acute hypotension ? Likely secondary to vasovagal event, A-fib with RVR, ? Continue on low-dose Levophed, wean off as tolerated ? Currently midline in place, A-fib with RVR ? Currently in normal sinus rhythm, resume low-dose metoprolol if blood pressure heart rate will allow, ? It sensitive to amiodarone, had hypotension will avoid for now ? Can consider Cardizem ? Eliquis for DVT prophylaxis Systolic CHF, ? Repeat cardiac echo, CONCLUSIONS Limited echo to assess the LV function. Mild concentric LVH. Mildly reduced LV systolic function with hypokinesis of mid anterior and anteroseptal wall segments. Estimated LVEF is mildly reduced 45 to 50%. Aortic valve appears significantly thickened with sclerosis and restricted movements of aortic valve leaflets. However any stenosis or regurgitation was not evaluated during the study. ? As above, NSTEMI, History of CAD, stenting x1, ? Type I versus type II NSTEMI ? Acute respiratory failure, ? Plan, ? Serial EKGs, serial troponins, telemetry monitoring, ? Cardiac echo as above, does show mildly reduced ejection fraction ? Aspirin, statin, ? No chest pain complaints, will continue to monitor, consider stress testing either inpatient versus outpatient depending on clinical progress Acute on chronic kidney disease Creatinine 3.2 Nephro consulted Required temporary dialysis for contrast-induced nephropathy in the past Hyperkalemia, improving ? With underlying CKD, ? Several doses of insulin, D50, Kayexalate have been given, with Lasix as above ? Currently on scheduled Kayexalate Right pleural effusion, will consider thoracocentesis Systolic CHF Family not interested in a LifeVest or AICD However EF has improved from 35% to 45% now Patient has bilateral lower extremity swelling Intermittent tachycardia patient receives metoprolol at home Peripheral vascular disease cardiology recommended medical management SVT, status post adenosine, on 07/04/2023 Wound care: Follows up with Dr. Baird once a month Consistent carb diet Sliding scale DVT prophylaxis on board - Patient was seen this morning, is at bedside, continues to complain shortness of breath, fatigue, malaise, ? Patient tells me that the Remeron has not really helped with his sleep, ? Patient tells me that he has not taken his thyroid medication in over a week due to nausea, not feeling well, we discussed his TSH being over 60, likely etiology behind his weakness, fatigue, low T3, T4, will resume and monitor his TSH, given his persistent fatigue, malaise, will dose 1 dose Cytomel ? He does report no fevers, no chills, he was gotten up to a chair with physical therapy, ? We discussed with his monitoring his kidney function and monitoring his urine output, he is agreeable he is a bit uncomfortable with the Kincaid catheter in place we will decide in the evening time if he needs to be removed, ? At roughly 4 PM or so patient had episodes with SVT versus A-fib, ? Did vagal maneuvers, ice pack without improvement of heart rates, heart rates went as high as 190s ? Initially it looked like SVT, but then it started to look like A-fib on the telemetry monitoring, ? Looking at patient, he is alert to person, to place, not time he was fatigue and tired, short of breath, did follow commands, did not appear to be in respiratory distress, is at bedside, she tells me that this happens time to time, nursing staff reports that he had a coughing fit and right after that he went into SVT heart rates in the 190s versus A-fib ? Given 5 mg IV push metoprolol, heart rates did improve to the 140s, on the monitors it showed SVT, ? Patient was given 6 mg of IV push adenosine 5 minutes after, heart rates came down to the low 100s, patient was much more alert, heart rates in the 1 low 100s sometimes going to the 120s, EKG showed A-fib with RVR, ? Plan was to move him down to the CSU to be placed on a Cardizem drip as an allergic reaction amiodarone, ? Was given 25 mg of p.o. metoprolol, ? Patient was moved down to CSU, in CSU he was in A-fib then converted to normal sinus rhythm, currently in sinus rhythm, ? Patient was examined multiple times throughout the morning, early in the morning he was seen, he is alert, awake, did not follow commands was on BiPAP, heart rates were atrial fibrillation, but heart rates are well controlled, patient's is at bedside, she tells me that he did not sleep throughout the night, he does awaken, but easily falls back asleep, will hold off on speech therapy eval until the afternoon, will keep n.p.o. continue BiPAP monitor heart rate, was given metoprolol, Lasix, albumin and monitored ? At about noon time, patient was got up to the side of the bed, became suddenly hypotensive, less responsive, ? Immediately examined patient, systolic 70s over 40s, patient was blue, cyanotic, closest O2 sats in the 90s, heart rates in the 90s, look like atrial fibrillation, he is nonresponsive, ? Placed in Trendelenburg, blood pressures improved slightly to 80s over 50s, becoming a bit more responsive, ? Was placed on BiPAP, was given a dose of albumin, started on low-dose Levophed at 4, ? Immediately thereafter, his blood pressures improved to 160s over 80s he is much more alert and awake, can follow some commands, heart rates are still in the low 100s, looks like atrial fibrillation, kept on BiPAP has diffuse crackles on exam ? We will give another dose of Lasix continue Levophed, monitor urine output, ? Had extensive discussion with at bedside, patient has had episodes of A- fib with RVR requiring amiodarone bolus, during the nighttime, now with worsening respiratory failure, ? We had extensive discussion about her thoughts of goals of care, for now she wants to keep Usman a full code, she wants us to do everything, if need be she is okay with elective intubation, ? Early in the morning we had discussions about possible elective intubation, when he became hypotensive and unresponsive, but after our interventions, he was much more alert and awake, and his respiratory status improved, so decision was made to hold off on intubation for now continue to monitor status very closely in the ICU, patient's is agreeable ? Discussed morbidity and mortality associate with respiratory failure, A-fib, his current clinical condition, she voiced understanding, all questions answered, shared decision making, agreed to proceed, ? Examined multiple times about the evening, remains in sinus rhythm, urine output about 1100, resting comfortably on BiPAP, no episodes of agitation, will continue to monitor in the ICU, 1 more dose of IV Lasix this evening, will see if we can give him his Eliquis and metoprolol tonight, Attestations 2 Medical Necessity Statement*: Patient requires hospitalization for acute hypoxic respiratory failure, acute hypotension, NSTEMI, A-fib with RVR, encephalopathy, acute hypercarbic respiratory failure, hypoxia, fluid overload systolic CHF, Coding Level of Care Code Critical Care >/= 30 minutes Critical care time (in minutes): 45 The high probability of a clinically significant, sudden or life threatening deterioration, as referenced in this documentation, required my full and direct attention, intervention and personal management. The critical care time shown is in addition to time spent performing any reported separately billable procedures and includes the following: [x] Data and vital sign review and interpretation [x ] Patient assessment, examination and intervention [x] Medication orders and management [x] Patient/Family updates as able [x] Care Coordination and Documentation. Diagnoses Acute hyperkalemia E87.5 Pleural effusion J90 Status post amputation of right foot through metatarsal bone Z89.431 Laterality: right Acute kidney injury superimposed on CKD N17.9; N18.9 CKD (chronic kidney disease) N18.9 Pulmonary infiltrate present on computed tomography R91.8 Non-pressure chronic ulcer of other part of right foot with necrosis of bone L97.514 Diabetic neuropathy E11.40 Ischemic cardiomyopathy I25.5 Systolic heart failure I50.20 Elevated hemidiaphragm J98.6 Atelectasis, left J98.11 Status post amputation of toe of right foot Z89.421 Typical atrial flutter I48.3 Atrial flutter type: typical Acute respiratory failure with hypoxia and hypercapnia J96.01; J96.02 NSTEMI (non-ST elevated myocardial infarction) I21.4 Systolic CHF, acute I50.21 Pulmonary edema J81.1 Fluid overload E87.70 Hyperkalemia E87.5 Hypothyroidism E03.9 SVT (supraventricular tachycardia) I47.1 Atrial fibrillation with RVR I48.91 PNA (pneumonia) J18.9
[2023-07-05] MEDS: aztreonam 1,000 MG in sodium chloride 0.9% (plus) 50 ML 100 MG IV (18:00)
[2023-07-05 18:18] LABS: Glucose Point of Care 110 mg/dL (70-110)
[2023-07-05] MEDS: metoprolol tartrate 25 mg Tablet 12.5 MG PO (19:14)
[2023-07-05] MEDS: vancomycin 1,500 MG/300 ML PIGGYBACK 200 MG IV (19:51)
[2023-07-05 20:15] LABS: Glucose Point of Care 104 mg/dL (70-110)
[2023-07-05] MEDS: apixaban 5 mg Tablet PO (21:02)
[2023-07-05] MEDS: lanolin oint 7 gm 1 APPLIC TOPICAL (21:02)
[2023-07-05] MEDS: aspirin 81 mg EC Tablet PO (21:02)
--- NOTE | 2023-07-05 21:23 | P.PN_ITS ---
Subjective 2 Subjective: no new complaints Medications: Reviewed: Yes Vitals/I&O/Wt Last Vital Signs Temp 98.6 F 07/05/23 04:00 Pulse 75 07/05/23 19:33 Resp 19 H 07/05/23 19:33 BP 122/72 07/05/23 16:00 Pulse Ox 99 07/05/23 19:33 O2 Del Method BiPAP 07/05/23 19:33 O2 Flow Rate 2 07/05/23 02:29 FiO2 35 07/05/23 19:33 07/05/23 07/05/23 07/05/23 06:59 14:59 22:59 Intake Total 1308.333 / 2398.433 100 / 100 150 / 250 Output Total 600 / 850 1100 / 1100 Balance 708.333 / 1548.433 100 / 100 -950 / -850 Weight last 48 hrs Weight 104.553 kg Weight 110.223 kg Physical Exam 2 Narrative: Awake, no acute distress Urinary Catheter Management: Kincaid: Cath Placed During This Visit: yes Reason for Continuing Indwelling Catheter: Acute Urinary Retention or Obstruction Urinary Catheter Date of Insertion: 07/02/23 Urinary Catheter Time of Insertion: 03:30 Data 07/05/23 03:43 07/05/23 03:43 A&P Assessment and plan (1) Acute kidney injury superimposed on CKD: Plan 1. Acute on chronic kidney disease stage III: Baseline creatinine is in the mid 1 range, had prior SALLY requiring temporary hemodialysis due to contrast nephropathy -Patient presented with SALLY with a creatinine of 3.5 on presentation likely prerenal/ATN. Nonoliguric. Also has hyperkalemia with a potassium of 6.1. -Cr improved , resumed lasix -UA with 1+ protein, - , UOP reasonable 2. Hyperkalemia: Medical management, low K diet, repeat BMP pending 3. Hyponatremia: improved 4. History of CHF, with low ejection fraction 35 to 45%, 5. History of peripheral vascular disease and right TMA in the past 6. Metabolic alkalosis - contraction alkalosis Patient evaluated using audiovisual cart. Time spent 20minutes. Attestations 2 Medical Necessity Statement*: per medicine team Coding Level of Care Code Acute Code for [facility] Fwd Diagnoses Acute kidney injury superimposed on CKD N17.9; N18.9
[2023-07-05 21:26] LABS: Glucose Point of Care 105 mg/dL (70-110)
[2023-07-05 22:29] LABS: Glucose Point of Care 129 mg/dL (70-110)
[2023-07-05 23:26] LABS: Glucose Point of Care 106 mg/dL (70-110)
[2023-07-06] VITALS (27 sets, daily range): BP systolic 113–187; BP diastolic 53–111; PULSE 70–104; RESP 10–30; TEMP 36.6–37.4; O2SAT 90–100
[2023-07-06 00:14] LABS: Glucose Point of Care 108 mg/dL (70-110)
--- NOTE | 2023-07-06 01:28 | PC.NURSE ---
Addendum entered by Ibis Murguia RN 07/06/23 01:38: Levophed drip still shows as running in oct, however, per report, was turned off by day shift nurse. Original Note: Levophed drip not running upon my arrival on shift.
--- NOTE | 2023-07-06 01:30 | PC.NURSE ---
Report given to REESE Baumann
[2023-07-06 01:31] LABS: Glucose Point of Care 105 mg/dL (70-110)
[2023-07-06 02:17] LABS: Glucose Point of Care 107 mg/dL (70-110)
[2023-07-06 03:13] LABS: Glucose Point of Care 99 mg/dL (70-110)
[2023-07-06 04:00] LABS: Basophils % 0.2 %; Eosinophils % 0.3 %; Hematocrit 38.5 % (37-53); Lymphocytes # 2.7 10^3/uL (0.8-4.8); Lymphocytes % 29.9 %; Mean Corpuscular HGB Conc 29.6 g/dL (30-55); Mean Corpuscular Hemoglobin 25.7 pg (27-33); Mean Corpuscular Volume 86.9 fl (82-101); Mean Platelet Volume 9.7 fL (7.4-10.4); Monocytes # 0.3 10^3/uL (0.2-0.9); Monocytes % 3.2 %; Neutrophils % 66.2 %; Nucleated Red Blood Cells % 0 %; Platelet Count 113 10^3/cmm (157-399); Red Blood Count 4.43 10^6/uL (3.85-5.65); Red Cell Distribution Width 15.7 % (12.1-15.1); White Blood Count 9.07 10^3/uL (3.29-11.43)
[2023-07-06 04:30] LABS: Base Excess ABG 13.6 mmol/L (-2.0-2.0); Blood Gas Sample Site Brachial, right; Blood Gas Sample Type Arterial; Blood Gas Tidal Volume 0.45; HCO3 ABG 36.6 mmol/L (22-26); Oxygen Device BIPAP; PO2 FiO2 Ratio Arterial Blood 0
[2023-07-06 04:34] LABS: ABG PH Result 7.58 (7.35-7.45)
[2023-07-06 04:46] LABS: Alanine Aminotransferase 11 U/L (0-41); Albumin Level 3.9 g/dL (3.5-5.2); Alkaline Phosphatase 71 U/L (40-130); Anion Gap 16.4 (5-19); Aspartate Amino Transferase 12 U/L (0-40); Chloride 100 mmol/L (98-107); Glucose 103 mg/dL (65-115); Phosphorus 3.7 mg/dL (2.5-4.5)
[2023-07-06] MEDS: thyroid 60 mg Tablet PO (04:48)
[2023-07-06] MEDS: albumin 25 G/100 ML BAG 60 G IV ×5 (04:49→20:59)
[2023-07-06 04:53] LABS: Procalcitonin 2.73 ng/mL (0-0.5)
[2023-07-06 05:04] LABS: Creatine Phosphokinase 61 U/L (39-308)
[2023-07-06 05:05] LABS: Glucose Point of Care 109 mg/dL (70-110)
[2023-07-06 05:20] LABS: Blood Urea Nitrogen 70 mg/dL (8-23); C Reactive Protein 60.5 mg/L (0.0-4.9); Calcium 7.9 mg/dL (8.5-10.5); Carbon Dioxide 35 mmol/L (22-29); Magnesium 2.6 mg/dL (1.7-2.3); Osmolality Calculated 327 mOsm/kg (285-295); Potassium 3.4 mmol/L (3.5-5.1); Sodium 148 mmol/L (136-145); Total Protein 4.9 g/dL (6.6-8.7)
[2023-07-06] MEDS: aztreonam 1,000 MG in sodium chloride 0.9% (plus) 50 ML 100 MG IV ×2 (06:35→17:10)
[2023-07-06 06:42] LABS: Glucose Point of Care 105 mg/dL (70-110)
--- NOTE | 2023-07-06 07:00 | XRR_ITS ---
PROCEDURE INFORMATION: Exam: XR Chest Exam date and time: 07/06/2023 5:42 AM Age: 73 years old Clinical indication: Shortness of breath; Patient HX: F/u SOB. Wearing bipap. TECHNIQUE: Imaging protocol: Radiologic exam of the chest. Views: 1 view. COMPARISON: CR (CHEST, ) 07/05/2023 1:10 PM FINDINGS: Lungs: Bilateral predominantly perihilar and lower lobe opacities. Findings may be seen with pulmonary edema or pneumonia. Pleural spaces: There are bilateral pleural effusions. Heart/Mediastinum: Cardiomegaly. Bones/joints: No acute fracture. XR/XR chest 1V portable [id number] IMPRESSION: Bilateral predominantly perihilar and lower lobe opacities. There are bilateral pleural effusions. Findings may be seen with pulmonary edema or pneumonia.
[2023-07-06 07:36] LABS: Glucose Point of Care 112 mg/dL (70-110)
--- NOTE | 2023-07-06 08:43 | PC.NURSE ---
Pt bed zeroed out by previous nurse. Pt becomes severely hypoxic whenever transferred, so this nurse is unable to obtain daily weight.
[2023-07-06 09:03] LABS: Free T4 Free Thyroxine 0.41 ng/dL (0.82-1.77); T3 Free 1.3 PG/ML (2.0-4.4); Thyroid Stimulating Hormone 21.08 uIU/mL (0.27-4.20)
[2023-07-06] MEDS: lidocaine 1% 5 ML in potassium chloride premix 100 ML 26.25 ML IV (09:22)
[2023-07-06] MEDS: FUROsemide 10 mg/mL SDV 4mL 40 MG IVP (09:23)
[2023-07-06] MEDS: midodrine 5 mg TABLET PO (09:23)
[2023-07-06] MEDS: metOLazone 5 MG Tablet PO (09:23)
[2023-07-06] MEDS: thiamine 100 mg Tablet PO (09:24)
[2023-07-06] MEDS: apixaban 5 mg Tablet PO ×2 (09:28→20:59)
[2023-07-06] MEDS: metoprolol tartrate 25 mg Tablet 12.5 MG PO ×2 (09:28→20:57)
[2023-07-06 11:52] LABS: Glucose Point of Care 128 mg/dL (70-110)
[2023-07-06] MEDS: FUROsemide 10 mg/mL SDV 10mL 80 MG IVP (12:41)
--- NOTE | 2023-07-06 13:10 | P.PN_ITS ---
Subjective 2 Subjective: c/o increased SOB Medications: Reviewed: Yes Vitals/I&O/Wt Last Vital Signs Temp 98.9 F 07/06/23 07:47 Pulse 78 07/06/23 12:00 Resp 18 07/06/23 12:00 BP 131/62 07/06/23 12:00 Pulse Ox 95 07/06/23 12:00 O2 Del Method Nasal Cannula 07/06/23 12:00 O2 Flow Rate 3 07/06/23 12:00 FiO2 35 07/06/23 04:00 07/05/23 07/06/23 07/06/23 22:59 06:59 14:59 Intake Total 650 / 750 180 / 930 100 / 100 Output Total 1100 / 1100 2600 / 3700 400 / 400 Balance -450 / -350 -2420 / -2770 -300 / -300 Weight last 48 hrs Weight 104.553 kg Physical Exam 2 Narrative: Awake, mild distress Urinary Catheter Management: Kincaid: Cath Placed During This Visit: yes Reason for Continuing Indwelling Catheter: Accurate Measurement of Urinary Output in Critically Ill Patients Urinary Catheter Date of Insertion: 07/02/23 Urinary Catheter Time of Insertion: 03:30 Data 07/06/23 03:46 07/06/23 03:46 A&P Assessment and plan (1) Acute kidney injury superimposed on CKD: Plan 1. Acute on chronic kidney disease stage III: Baseline creatinine is in the mid 1 range, had prior SALLY requiring temporary hemodialysis due to contrast nephropathy -Patient presented with SALLY with a creatinine of 3.5 on presentation likely prerenal/ATN. Nonoliguric. Also has hyperkalemia with a potassium of 6.1. -Cr stable , but has SOB and increased O2 requirement , - will increase lasix - if no adequate UOP -will discuss temporary HD -UA with 1+ protein, - , UOP reasonable 2. Hyperkalemia: Medical management, low K diet, repeat BMP pending 3. Hypernatremia ,liberlize free water intake to 2000 ml/day 4. History of CHF, with low ejection fraction 35 to 45%, 5. History of peripheral vascular disease and right TMA in the past 6. Metabolic alkalosis - contraction alkalosis , likely will get worse with increasing diuretic dose Patient evaluated using audiovisual cart. Time spent 20minutes. Attestations 2 Medical Necessity Statement*: per medicine team Coding Level of Care Code Acute Code for [facility] Fwd Diagnoses Acute kidney injury superimposed on CKD N17.9; N18.9
--- NOTE | 2023-07-06 15:30 | PC.NURSE ---
PICC dressing changed at 24hour [place] per protocol. Tolerated well.
--- NOTE | 2023-07-06 15:38 | P.PN_ITS ---
Subjective 2 Subjective: Patient was examined multiple times throughout the morning, into the afternoon, ? Seen early in the morning, he is alert awake to person, to place, not to time he can follow commands, he is on 4 L, denies any shortness of breath, no fevers, no chills, no cough ? I had a detailed discussion with the patient's , and patient about his respiratory failure, likely secondary to flash pulm edema, hypercarbia, but I am very highly suspicious that when he was on MedSurg and he had a coughing spell, choking spell, I am highly suspicious that he aspirated and developed a pneumonia, as his chest x-ray shows evidence of bilateral lower lobe pneumonia, ? The question is is that he is chronically aspirating, he does report a globus sensation, we will have speech therapy evaluate him, ? The plan is to continue to monitor him in the ICU, will avoid amiodarone as he has hypotension with amiodarone, will continue metoprolol, ? Patient was reexamined, after speech therapy omid spoke to speech therapy, patient seems to have episodes of aspiration, choking, gagging, a few minutes after his meals, we are going to try to keep him on clear liquids, and will do a modified barium and barium swallow tomorrow, ? I spoke to patient about this, I advised him for small volume feeds, aspiration precautions, monitor for cough choking, coughing, gagging if so please stop feeding, discussed morbidity and mortality associate with aspiration, aspiration pneumonitis, aspiration pneumonia, choking and gagging, he voiced understanding, all questions answered, ? Discussed diuresis, will continue to monitor, Vitals/I&O/Wt Last Vital Signs Temp 98.9 F 07/06/23 07:47 Pulse 78 07/06/23 12:00 Resp 18 07/06/23 12:00 BP 131/62 07/06/23 12:00 Pulse Ox 95 07/06/23 12:00 O2 Del Method Nasal Cannula 07/06/23 12:00 O2 Flow Rate 3 07/06/23 12:00 FiO2 35 07/06/23 04:00 07/06/23 07/06/23 07/06/23 06:59 14:59 22:59 Intake Total 180 / 930 305 / 305 Output Total 2600 / 3700 1400 / 1400 Balance -2420 / -2770 -1095 / -1095 Weight last 48 hrs Weight 104.553 kg Physical Exam 2 Const: COMMON NORMALS: no acute distress and patient oriented x3 Resp: COMMON NORMALS: normal respiratory effort, No retractions, No use of accessory muscles and clear to auscultation bilaterally AUSCULTATION: clear to auscultation bilaterally Cardio: COMMON NORMALS: regular rate, regular rhythm, S1 normal heart sound present and S2 normal heart sound present RATE: regular rate RHYTHM: r egular rhythm HEART SOUNDS: S1 normal heart sound present and S2 normal heart sound present GI: COMMON NORMALS: Normal to inspection, nondistended, normoactive bowel sounds present and non-tender Extremity: COMMON NORMALS: no pedal edema Neuro: COMMON NORMALS: patient oriented x3 Psych: COMMON NORMALS: mental status grossly normal Urinary Catheter Management: Kincaid: Cath Placed During This Visit: yes Reason for Continuing Indwelling Catheter: Accurate Measurement of Urinary Output in Critically Ill Patients Urinary Catheter Date of Insertion: 07/02/23 Urinary Catheter Time of Insertion: 03:30 Data 07/06/23 03:46 07/06/23 03:46 A&P Assessment and plan (1) Acute hyperkalemia: (2) Pleural effusion: (3) S/P transmetatarsal amputation of foot: Qualifiers: Laterality: right Qualified Code(s): Z89.431 - Acquired absence of right foot (4) Acute kidney injury superimposed on CKD: (5) CKD (chronic kidney disease): (6) Pulmonary infiltrate present on computed tomography: (7) Non-pressure chronic ulcer of other part of right foot with necrosis of bone: (8) Diabetic neuropathy: (9) Ischemic cardiomyopathy: (10) Systolic heart failure: (11) Elevated hemidiaphragm: (12) Atelectasis, left: (13) Status post amputation of toe of right foot: (14) Atrial flutter: Qualifiers: Atrial flutter type: typical Qualified Code(s): I48.3 - Typical atrial flutter (15) Acute respiratory failure with hypoxia and hypercapnia: (16) NSTEMI (non-ST elevated myocardial infarction): (17) Systolic CHF, acute: (18) Pulmonary edema: (19) Fluid overload: (20) Hyperkalemia: (21) Hypothyroidism: (22) SVT (supraventricular tachycardia): (23) Atrial fibrillation with RVR: (24) PNA (pneumonia): (25) Aspiration into airway: (26) Aspiration pneumonitis: (27) Physical deconditioning: (28) Protein calorie malnutrition: Plan Plan Acute encephalopathy, resolving ? Likely secondary to fluid overload, pulmonary edema ? Monitor mentation closely, ? Neurochecks, aspiration precautions, Acute hypoxic hypercarbic respiratory failure ? Secondary to pulm edema, fluid overload, systolic CHF, pneumonia, aspiration pneumonitis, aspiration into airway ? Plan, ? Monitor intensive care unit, ? Continue BiPAP therapy, as needed during the day, schedule during the night ? Monitor ABG, in a.m. ? Monitor respiratory status, ? 1 dose of Lasix, with metolazone with albumin, -7 L so far ? Monitor creatinine monitor urine output, monitor potassium ? Full code, ? Heparin for DVT prophylaxis Pneumonia Chest x-ray shows bibasilar atelectasis and/or pneumonitis Highly concerning for aspiration event given his altered mental status, hypotension episode, A-fib with RVR, his choking spells? Continue clear liquids for now Speech therapy eval ? Modified barium swallow and barium swallow tomorrow vancomycin aztreonam Aspiration pneumonia, aspiration pneumonitis, aspiration airway, ? Aspiration precautions, small volume feeds, for now clear liquids, ? Modified barium and barium swallow tomorrow Acute hypotension ? Likely secondary to vasovagal event, A-fib with RVR, ? currently off leophed ? Currently midline in place, A-fib with RVR ? Currently in normal sinus rhythm, resume low-dose metoprolol if blood pressure heart rate will allow, ? It sensitive to amiodarone, had hypotension will avoid for now -eliquis ? Eliquis for DVT prophylaxis Systolic CHF, ? Repeat cardiac echo, CONCLUSIONS Limited echo to assess the LV function. Mild concentric LVH. Mildly reduced LV systolic function with hypokinesis of mid anterior and anteroseptal wall segments. Estimated LVEF is mildly reduced 45 to 50%. Aortic valve appears significantly thickened with sclerosis and restricted movements of aortic valve leaflets. However any stenosis or regurgitation was not evaluated during the study. ? As above, NSTEMI, History of CAD, stenting x1, ? Type I versus type II NSTEMI ? Acute respiratory failure, ? Plan, ? Serial EKGs, serial troponins, telemetry monitoring, ? Cardiac echo as above, does show mildly reduced ejection fraction ? Aspirin, statin, ? No chest pain complaints, will continue to monitor, consider stress testing either inpatient versus outpatient depending on clinical progress Acute on chronic kidney disease Creatinine 3.2 Nephro consulted Required temporary dialysis for contrast-induced nephropathy in the past Hyperkalemia, improving ? With underlying CKD, ? Several doses of insulin, D50, Kayexalate have been given, with Lasix as above ? Currently on scheduled Kayexalate Right pleural effusion, will consider thoracocentesis Systolic CHF Family not interested in a LifeVest or AICD However EF has improved from 35% to 45% now Patient has bilateral lower extremity swelling Intermittent tachycardia patient receives metoprolol at home Peripheral vascular disease cardiology recommended medical management SVT, status post adenosine, on 07/04/2023 Physical deconditioning, protein calorie malnutrition, consult dietary, PT OT Wound care: Follows up with Dr. Baird once a month Consistent carb diet Sliding scale DVT prophylaxis on board Patient was examined multiple times throughout the morning, into the afternoon, ? Seen early in the morning, he is alert awake to person, to place, not to time he can follow commands, he is on 4 L, denies any shortness of breath, no fevers, no chills, no cough ? I had a detailed discussion with the patient's , and patient about his respiratory failure, likely secondary to flash pulm edema, hypercarbia, but I am very highly suspicious that when he was on MedSurg and he had a coughing spell, choking spell, I am highly suspicious that he aspirated and developed a pneumonia, as his chest x-ray shows evidence of bilateral lower lobe pneumonia, ? The question is is that he is chronically aspirating, he does report a globus sensation, we will have speech therapy evaluate him, ? The plan is to continue to monitor him in the ICU, will avoid amiodarone as he has hypotension with amiodarone, will continue metoprolol, ? Patient was reexamined, after speech therapy omid spoke to speech therapy, patient seems to have episodes of aspiration, choking, gagging, a few minutes after his meals, we are going to try to keep him on clear liquids, and will do a modified barium and barium swallow tomorrow, ? I spoke to patient about this, I advised him for small volume feeds, aspiration precautions, monitor for cough choking, coughing, gagging if so please stop feeding, discussed morbidity and mortality associate with aspiration, aspiration pneumonitis, aspiration pneumonia, choking and gagging, he voiced understanding, all questions answered, ? Discussed diuresis, will continue to monitor, Attestations 2 Medical Necessity Statement*: Patient requires hospitalization for acute respiratory failure, fluid overload, pneumonia, aspiration pneumonia, aspiration events, aspiration into airways, deconditioning, Diagnoses Acute hyperkalemia E87.5 Pleural effusion J90 Status post amputation of right foot through metatarsal bone Z89.431 Laterality: right Acute kidney injury superimposed on CKD N17.9; N18.9 CKD (chronic kidney disease) N18.9 Pulmonary infiltrate present on computed tomography R91.8 Non-pressure chronic ulcer of other part of right foot with necrosis of bone L97.514 Diabetic neuropathy E11.40 Ischemic cardiomyopathy I25.5 Systolic heart failure I50.20 Elevated hemidiaphragm J98.6 Atelectasis, left J98.11 Status post amputation of toe of right foot Z89.421 Typical atrial flutter I48.3 Atrial flutter type: typical Acute respiratory failure with hypoxia and hypercapnia J96.01; J96.02 NSTEMI (non-ST elevated myocardial infarction) I21.4 Systolic CHF, acute I50.21 Pulmonary edema J81.1 Fluid overload E87.70 Hyperkalemia E87.5 Hypothyroidism E03.9 SVT (supraventricular tachycardia) I47.1 Atrial fibrillation with RVR I48.91 PNA (pneumonia) J18.9 Aspiration into airway T17.908A Aspiration pneumonitis J69.0 Physical deconditioning R53.81 Protein calorie malnutrition E46
[2023-07-06 17:02] LABS: Glucose Point of Care 168 mg/dL (70-110)
[2023-07-06] MEDS: insulin lispro 100 unit/1 mL SUBCUT (17:11)
[2023-07-06 18:22] LABS: Anion Gap 18.9 (5-19); Blood Urea Nitrogen 67 mg/dL (8-23); Calcium 7.9 mg/dL (8.5-10.5); Carbon Dioxide 34 mmol/L (22-29); Chloride 98 mmol/L (98-107); Glucose 148 mg/dL (65-115); Osmolality Calculated 326 mOsm/kg (285-295); Potassium 3.9 mmol/L (3.5-5.1); Sodium 147 mmol/L (136-145)
[2023-07-06] MEDS: aspirin 81 mg EC Tablet PO (20:57)
[2023-07-06] MEDS: morphine 4 mg/mL SDV 1 mL 2 MG IVP (21:13)
[2023-07-06 22:12] LABS: Glucose Point of Care 100 mg/dL (70-110)
--- NOTE | 2023-07-06 22:40 | PC.NURSE ---
Patient calls out and reports that he is feeling anxious and a little short of breath. Patient is sweaty, blood sugar on patients dexcom is 120. Checked temp, currently decreased from 99.4 oral to 97.9 axillary. Placed on bipap. Will continue to monitor.
[2023-07-07] VITALS (44 sets, daily range): BP systolic 107–171; BP diastolic 51–117; PULSE 65–143; RESP 0–32; TEMP 36.3–37.1; O2SAT 58–100
[2023-07-07 04:47] LABS: Basophils % 0.3 %; Eosinophils # 0.3 10^3/uL (0.0-0.8); Eosinophils % 2.8 %; Hematocrit 38.2 % (37-53); Lymphocytes # 3.4 10^3/uL (0.8-4.8); Lymphocytes % 38.2 %; Mean Corpuscular HGB Conc 28.8 g/dL (30-55); Mean Corpuscular Hemoglobin 25.9 pg (27-33); Mean Corpuscular Volume 90.1 fl (82-101); Mean Platelet Volume 10.7 fL (7.4-10.4); Monocytes # 0.4 10^3/uL (0.2-0.9); Monocytes % 4.8 %; Neutrophils # 4.76 10^3/uL (1.8-7.7); Neutrophils % 53.6 %; Nucleated Red Blood Cells % 0 %; Platelet Count 115 10^3/cmm (157-399); Red Blood Count 4.24 10^6/uL (3.85-5.65)
[2023-07-07 05:13] LABS: Lactate (Lactic Acid level) 0.8 mmol/L (0.5-2.2)
[2023-07-07] MEDS: albumin 25 G/100 ML BAG 60 G IV ×3 (05:14→20:45)
[2023-07-07] MEDS: aztreonam 1,000 MG in sodium chloride 0.9% (plus) 50 ML 100 MG IV ×2 (05:15→17:29)
[2023-07-07 05:17] LABS: Procalcitonin 2.46 ng/mL (0-0.5)
[2023-07-07] MEDS: thyroid 60 mg Tablet PO (05:20)
[2023-07-07 05:22] LABS: Alanine Aminotransferase 12 U/L (0-41); Albumin Level 4.5 g/dL (3.5-5.2); Alkaline Phosphatase 75 U/L (40-130); Anion Gap 20.6 (5-19); Aspartate Amino Transferase 18 U/L (0-40); Blood Urea Nitrogen 69 mg/dL (8-23); C Reactive Protein 35.3 mg/L (0.0-4.9); Calcium 7.9 mg/dL (8.5-10.5); Carbon Dioxide 32 mmol/L (22-29); Chloride 99 mmol/L (98-107); Glucose 117 mg/dL (65-115); Magnesium 2.6 mg/dL (1.7-2.3); Osmolality Calculated 327 mOsm/kg (285-295); Phosphorus 4.1 mg/dL (2.5-4.5); Potassium 3.6 mmol/L (3.5-5.1); Sodium 148 mmol/L (136-145); Total Bilirubin 1.2 mg/dL (0.15-1.2); Total Protein 5.5 g/dL (6.6-8.7)
[2023-07-07] MEDS: metoprolol tartrate 25 mg Tablet 12.5 MG PO (05:23)
[2023-07-07 05:31] LABS: Creatine Phosphokinase 41 U/L (39-308)
[2023-07-07 05:38] LABS: NT Pro B Type Natriuretic Pept 29234 pg/mL (0-125)
[2023-07-07 07:54] LABS: Glucose Point of Care 120 mg/dL (70-110)
[2023-07-07] MEDS: metoprolol tartrate 25 mg Tablet PO ×2 (08:51→20:46)
[2023-07-07] MEDS: thiamine 100 mg Tablet PO (08:55)
[2023-07-07] MEDS: apixaban 5 mg Tablet PO ×2 (08:55→20:46)
[2023-07-07] MEDS: vancomycin 1,500 MG/300 ML PIGGYBACK 200 MG IV (08:55)
--- NOTE | 2023-07-07 10:21 | P.PN_ITS ---
Subjective 2 Subjective: no new complaints Medications: Reviewed: Yes Vitals/I&O/Wt Last Vital Signs Temp 97.4 F L 07/07/23 04:00 Pulse 73 07/07/23 08:00 Resp 16 07/07/23 08:00 BP 157/65 07/07/23 04:00 Pulse Ox 91 07/07/23 08:00 O2 Del Method Nasal Cannula 07/07/23 08:00 O2 Flow Rate 3 07/07/23 08:00 FiO2 35 07/07/23 04:00 07/06/23 07/07/23 07/07/23 22:59 06:59 14:59 Intake Total 1200 / 1505 Output Total 450 / 1850 1000 / 2850 Balance 750 / -345 -1000 / -1345 Physical Exam 2 Narrative: Awake, mild distress Urinary Catheter Management: Kincaid: Cath Placed During This Visit: yes Reason for Continuing Indwelling Catheter: Accurate Measurement of Urinary Output in Critically Ill Patients Urinary Catheter Date of Insertion: 07/02/23 Urinary Catheter Time of Insertion: 03:30 Data 07/07/23 04:07 07/07/23 04:07 Micro: Microbiology 07/01/23 16:55 Blood Culture - Final Blood NO GROWTH AFTER 5 DAYS 07/01/23 16:53 Blood Culture - Final Blood NO GROWTH AFTER 5 DAYS A&P Assessment and plan (1) Acute kidney injury superimposed on CKD: Plan 1. Acute on chronic kidney disease stage III: Baseline creatinine is in the mid 1 range, had prior SALLY requiring temporary hemodialysis due to contrast nephropathy -Patient presented with SALLY with a creatinine of 3.5 on presentation likely prerenal/ATN. Nonoliguric. Also has hyperkalemia with a potassium of 6.1. -Cr up today , still with high O2 requirement and has LE edema , watch another 24 hours , if O2 requirement remain high - will benifit from inititation of HD -UA with 1+ protein, - , UOP reasonable 2. Hyperkalemia: Medical management, low K diet, 3. Hypernatremia ,liberlize free water intake to 2000 ml/day 4. History of CHF, with low ejection fraction 35 to 45%, 5. History of peripheral vascular disease and right TMA in the past 6. Metabolic alkalosis - contraction alkalosis , likely will get worse with increasing diuretic dose Patient evaluated using audiovisual cart. Time spent 20minutes. Attestations 2 Medical Necessity Statement*: PER MEDICINE TEAM Coding Level of Care Code Acute Code for Chg Fwd Diagnoses Acute kidney injury superimposed on CKD N17.9; N18.9
--- NOTE | 2023-07-07 11:15 | FL_ITS ---
WS: [id number] MODIFIED BARIUM SWALLOW TECHNIQUE: Modified barium swallow with speech therapy using multiple consistencies. FLUOROSCOPY TIME: 2min [phone] # of spot films: 1 CLINICAL INFORMATION: Oral dysphagia COMPARISON: None. FINDINGS: Multiple consistencies utilized. No evidence of aspiration or penetration. No difficulties of the bar ium tablet. Mild esophageal dysmotility visualized with slightly delayed emptying. Evidence of esophageal reflux to the thoracic inlet. IMPRESSION: 1. No evidence of aspiration or penetration. 2. Mild esophageal dysmotility with delayed emptying. 3. Esophageal reflux visualized to the thoracic inlet.
[2023-07-07 12:29] LABS: Glucose Point of Care 243 mg/dL (70-110)
[2023-07-07] MEDS: insulin lispro 100 unit/1 mL SUBCUT ×3 (12:33→21:33)
--- NOTE | 2023-07-07 14:06 | PC.SOCIAL ---
IMM Updated Updated pt on IMM. No questions voiced. Provided pt a copy. Initialed, dated, & timed copy in chart.
--- NOTE | 2023-07-07 14:11 | P.PN_ITS ---
Subjective 2 Subjective: Patient was seen early this morning, he is sitting up in bed, he is shaving his easley, using a electric shaver, his oxygen is off O2 sats in the low 80s, he denies any shortness of breath, is able to put back on his oxygen on him, he tells me he is doing okay, no fevers, cough, shortness of breath, abdominal pain, we discussed his modified barium swallow today we will see how he does with that test, and then we will have physical therapy work with him, plan on moving him to the cardiac side of the hospital, him and his are agreeable, Vitals/I&O/Wt Last Vital Signs Temp 98.8 F 07/07/23 13:00 Pulse 72 07/07/23 13:30 Resp 27 H 07/07/23 13:30 BP 125/68 07/07/23 13:30 Pulse Ox 93 07/07/23 13:30 O2 Del Method Nasal Cannula 07/07/23 13:00 O2 Flow Rate 3 07/07/23 13:00 FiO2 35 07/07/23 04:00 07/06/23 07/07/23 07/07/23 22:59 06:59 14:59 Intake Total 1200 / 1505 850 / 850 Output Total 450 / 1850 1000 / 2850 150 / 150 Balance 750 / -345 -1000 / -1345 700 / 700 Physical Exam 2 Const: COMMON NORMALS: no acute distress and patient oriented x3 Resp: COMMON NORMALS: normal respiratory effort, No retractions, No use of accessory muscles and clear to auscultation bilaterally AUSCULTATION: clear to auscultation bilaterally Cardio: COMMON NORMALS: regular rate, regular rhythm, S1 normal heart sound present and S2 normal heart sound present RATE: regular rate RHYTHM: r egular rhythm HEART SOUNDS: S1 normal heart sound present and S2 normal heart sound present GI: COMMON NORMALS: Normal to inspection, nondistended, normoactive bowel sounds present and non-tender Extremity: COMMON NORMALS: no pedal edema Neuro: COMMON NORMALS: patient oriented x3 Psych: COMMON NORMALS: mental status grossly normal Urinary Catheter Management: Kincaid: Cath Placed During This Visit: yes Reason for Continuing Indwelling Catheter: Accurate Measurement of Urinary Output in Critically Ill Patients Urinary Catheter Date of Insertion: 07/02/23 Urinary Catheter Time of Insertion: 03:30 Data 12/04/23 04:07 07/07/23 04:07 Micro: Microbiology 07/01/23 16:55 Blood Culture - Final Blood NO GROWTH AFTER 5 DAYS 07/01/23 16:53 Blood Culture - Final Blood NO GROWTH AFTER 5 DAYS A&P Assessment and plan (1) Acute hyperkalemia: (2) Pleural effusion: (3) S/P transmetatarsal amputation of foot: Qualifiers: Laterality: right Qualified Code(s): Z89.431 - Acquired absence of right foot (4) Acute kidney injury superimposed on CKD: (5) CKD (chronic kidney disease): (6) Pulmonary infiltrate present on computed tomography: (7) Non-pressure chronic ulcer of other part of right foot with necrosis of bone: (8) Diabetic neuropathy: (9) Ischemic cardiomyopathy: (10) Systolic heart failure: (11) Elevated hemidiaphragm: (12) Atelectasis, left: (13) Status post amputation of toe of right foot: (14) Atrial flutter: Qualifiers: Atrial flutter type: typical Qualified Code(s): I48.3 - Typical atrial flutter (15) Acute respiratory failure with hypoxia and hypercapnia: (16) NSTEMI (non-ST elevated myocardial infarction): (17) Systolic CHF, acute: (18) Pulmonary edema: (19) Fluid overload: (20) Hyperkalemia: (21) Hypothyroidism: (22) SVT (supraventricular tachycardia): (23) Atrial fibrillation with RVR: (24) PNA (pneumonia): (25) Aspiration into airway: (26) Aspiration pneumonitis: (27) Physical deconditioning: (28) Protein calorie malnutrition: Plan Plan Acute encephalopathy, resolved ? Likely secondary to fluid overload, pulmonary edema ? Monitor mentation closely, ? Neurochecks, aspiration precautions, Acute hypoxic hypercarbic respiratory failure ? Secondary to pulm edema, fluid overload, systolic CHF, pneumonia, aspiration pneumonitis, aspiration into airway ? Plan, ? Monitor intensive care unit, ? Continue BiPAP therapy, as needed during the day, schedule during the night ? Monitor respiratory status, ? Creatinine 3.2, looks euvolemic, -7 L so far ? Monitor creatinine monitor urine output, monitor potassium ? Full code, ? Heparin for DVT prophylaxis Pneumonia Chest x-ray shows bibasilar atelectasis and/or pneumonitis Highly concerning for aspiration event given his altered mental status, hypotension episode, A-fib with RVR, his choking spells? Continue clear liquids for now Speech therapy eval ? Modified barium swallow and barium swallow today vancomycin aztreonam Aspiration pneumonia, aspiration pneumonitis, aspiration airway, ? Aspiration precautions, small volume feeds, for now clear liquids, ? Modified barium and barium swallow today Acute hypotension, resolved ? Likely secondary to vasovagal event, A-fib with RVR, ? currently off leophed ? Currently midline in place, A-fib with RVR ? Currently in normal sinus rhythm, resume low-dose metoprolol if blood pressure heart rate will allow, ? It sensitive to amiodarone, had hypotension will avoid for now -eliquis ? Eliquis for DVT prophylaxis Systolic CHF, ? Repeat cardiac echo, CONCLUSIONS Limited echo to assess the LV function. Mild concentric LVH. Mildly reduced LV systolic function with hypokinesis of mid anterior and anteroseptal wall segments. Estimated LVEF is mildly reduced 45 to 50%. Aortic valve appears significantly thickened with sclerosis and restricted movements of aortic valve leaflets. However any stenosis or regurgitation was not evaluated during the study. ? As above, NSTEMI, History of CAD, stenting x1, ? Type I versus type II NSTEMI ? Acute respiratory failure, ? Plan, ? Serial EKGs, serial troponins, telemetry monitoring, ? Cardiac echo as above, does show mildly reduced ejection fraction ? Aspirin, statin, ? No chest pain complaints, will continue to monitor, consider stress testing either inpatient versus outpatient depending on clinical progress Acute on chronic kidney disease Creatinine 3.2 Nephro consulted Required temporary dialysis for contrast-induced nephropathy in the past Hyperkalemia, improving ? With underlying CKD, ? Several doses of insulin, D50, Kayexalate have been given, with Lasix as above ? Currently on scheduled Kayexalate Right pleural effusion, will consider thoracocentesis Systolic CHF Family not interested in a LifeVest or AICD However EF has improved from 35% to 45% now Patient has bilateral lower extremity swelling Intermittent tachycardia patient receives metoprolol at home Peripheral vascular disease cardiology recommended medical management SVT, status post adenosine, on 07/04/2023 Physical deconditioning, protein calorie malnutrition, consult dietary, PT OT Wound care: Follows up with Dr. Baird once a month Consistent carb diet Sliding scale DVT prophylaxis on board Attestations 2 Medical Necessity Statement*: Patient requires hospitalization for fluid overload, A-fib, fluid overload, NSTEMI, deconditioning, pneumonia Diagnoses Acute hyperkalemia E87.5 Pleural effusion J90 Status post amputation of right foot through metatarsal bone Z89.431 Laterality: right Acute kidney injury superimposed on CKD N17.9; N18.9 CKD (chronic kidney disease) N18.9 Pulmonary infiltrate present on computed tomography R91.8 Non-pressure chronic ulcer of other part of right foot with necrosis of bone L97.514 Diabetic neuropathy E11.40 Ischemic cardiomyopathy I25.5 Systolic heart failure I50.20 Elevated hemidiaphragm J98.6 Atelectasis, left J98.11 Status post amputation of toe of right foot Z89.421 Typical atrial flutter I48.3 Atrial flutter type: typical Acute respiratory failure with hypoxia and hypercapnia J96.01; J96.02 NSTEMI (non-ST elevated myocardial infarction) I21.4 Systolic CHF, acute I50.21 Pulmonary edema J81.1 Fluid overload E87.70 Hyperkalemia E87.5 Hypothyroidism E03.9 SVT (supraventricular tachycardia) I47.1 Atrial fibrillation with RVR I48.91 PNA (pneumonia) J18.9 Aspiration into airway T17.908A Aspiration pneumonitis J69.0 Physical deconditioning R53.81 Protein calorie malnutrition E46
[2023-07-07 17:00] LABS: Glucose Point of Care 239 mg/dL (70-110)
--- NOTE | 2023-07-07 18:27 | PC.NURSE ---
SHift Summary: Uneventful shift. Patient was up to the chair for most of the day, worked with PT and did additional exercise on his own. Went for a barium swallow which revelaed reflux, diet changed to soft mechanical. Physician recommends small but more frequent meals, eating more slowly, and remaining upright for 1 hour after meals. started with 3LNC, down to 1LNC. Total urine output for dayshift 07/07/2023: 275mL
[2023-07-07 19:38] LABS: Glucose Point of Care 304 mg/dL (70-110)
[2023-07-07] MEDS: morphine 4 mg/mL SDV 1 mL 2 MG IVP (20:46)
[2023-07-07] MEDS: aspirin 81 mg EC Tablet PO (20:46)
[2023-07-07 21:30] LABS: Glucose Point of Care 232 mg/dL (70-110)
[2023-07-07 23:33] LABS: Glucose Point of Care 161 mg/dL (70-110)
[2023-07-08] VITALS (38 sets, daily range): BP systolic 92–162; BP diastolic 53–88; PULSE 63–113; RESP 11–31; TEMP 36.7–36.9; O2SAT 90–100; BMI 32.1
[2023-07-08 01:59] LABS: Glucose Point of Care 87 mg/dL (70-110)
[2023-07-08 02:01] LABS: Glucose Point of Care 89 mg/dL (70-110)
--- NOTE | 2023-07-08 02:09 | PC.NURSE ---
Addendum entered by Ibis Murguia RN 07/08/23 02:54: Blood glucose at 02:30 123. Original Note: Patient's blood glucose 87 at 0130. Grape juice given. Recheck at 2 am 89. Ice cream given. Report called to Sugar nurse in [facility] via telephone. Patient transferred to [facility]. to be notified later in the morning.
[2023-07-08 02:45] LABS: Glucose Point of Care 123 mg/dL (70-110)
--- NOTE | 2023-07-08 03:01 | PC.NURSE ---
patient arrived to [facility] floor at 0230 from ICU. Ibis LEIGH called report. Patient currently stable, sitting on side of bed. Vitals 97/53, HR 74, O2 94 temp 98.5 ax.
[2023-07-08] MEDS: morphine 4 mg/mL SDV 1 mL 2 MG IVP (04:17)
[2023-07-08] MEDS: albumin 25 G/100 ML BAG 60 G IV (04:18)
[2023-07-08] MEDS: aztreonam 1,000 MG in sodium chloride 0.9% (plus) 50 ML 100 MG IV ×2 (06:35→17:25)
[2023-07-08] MEDS: thyroid 60 mg Tablet PO (06:36)
[2023-07-08 06:48] LABS: Glucose Point of Care 187 mg/dL (70-110)
[2023-07-08 07:14] LABS: Basophils % 0.4 %; Eosinophils # 0.2 10^3/uL (0.0-0.8); Eosinophils % 2.3 %; Lymphocytes % 32.3 %; Mean Corpuscular HGB Conc 27.7 g/dL (30-55); Mean Corpuscular Hemoglobin 26.3 pg (27-33); Mean Corpuscular Volume 94.9 fl (82-101); Mean Platelet Volume 10.9 fL (7.4-10.4); Monocytes # 0.5 10^3/uL (0.2-0.9); Monocytes % 5.4 %; Neutrophils % 59.3 %; Nucleated Red Blood Cells % 0 %; Platelet Count 114 10^3/cmm (157-399); Red Blood Count 4.11 10^6/uL (3.85-5.65); Red Cell Distribution Width 16.1 % (12.1-15.1); White Blood Count 9.27 10^3/uL (3.29-11.43)
[2023-07-08 07:49] LABS: Alanine Aminotransferase 13 U/L (0-41); Alkaline Phosphatase 77 U/L (40-130); Anion Gap 19.8 (5-19); Aspartate Amino Transferase 19 U/L (0-40); C Reactive Protein 22.3 mg/L (0.0-4.9); Calcium 7.9 mg/dL (8.5-10.5); Carbon Dioxide 32 mmol/L (22-29); Chloride 94 mmol/L (98-107); Globulin 1.1 g/dL (1.3-4.6); Glucose 185 mg/dL (65-115); Magnesium 2.5 mg/dL (1.7-2.3); Osmolality Calculated 324 mOsm/kg (285-295); Phosphorus 5.4 mg/dL (2.5-4.5); Potassium 3.8 mmol/L (3.5-5.1); Sodium 142 mmol/L (136-145); Total Bilirubin 0.8 mg/dL (0.15-1.2); Total Protein 6.1 g/dL (6.6-8.7)
[2023-07-08 07:57] LABS: Procalcitonin 2.01 ng/mL (0-0.5)
[2023-07-08 08:10] LABS: Blood Urea Nitrogen 83 mg/dL (8-23); Creatine Phosphokinase 40 U/L (39-308)
[2023-07-08 08:18] LABS: Lactate (Lactic Acid level) 0.7 mmol/L (0.5-2.2)
[2023-07-08 08:49] LABS: Glucose Point of Care 178 mg/dL (70-110)
[2023-07-08 08:57] LABS: Glucose Point of Care 191 mg/dL (70-110)
[2023-07-08] MEDS: apixaban 5 mg Tablet PO (10:32)
[2023-07-08] MEDS: thiamine 100 mg Tablet PO (10:33)
[2023-07-08] MEDS: metoprolol tartrate 25 mg Tablet PO ×2 (10:33→21:35)
[2023-07-08] MEDS: insulin lispro 100 unit/1 mL SUBCUT ×2 (10:34→12:48)
[2023-07-08 11:26] LABS: Blood Gas Allen Test Pos; Blood Gas Sample Type Arterial
[2023-07-08 11:36] LABS: ABG PCO2 99.7 mmHg (35-45); ABG PH Result 7.18 (7.35-7.45); Arterial Blood Gas Hematocrit 34.6 % (42-52); Base Excess ABG 6.2 mmol/L (-2.0-2.0); Blood Gas Operator Identificat MONRO; Blood Gas Sample Site Radial, right; HCO3 ABG 37.3 mmol/L (22-26); Oxygen Device NC; PO2 ABG 97.8 mmHg (80.0-100.0); PO2 FiO2 Ratio Arterial Blood 0
[2023-07-08] MEDS: midodrine 5 mg TABLET PO (11:37)
[2023-07-08] MEDS: metOLazone 5 MG Tablet PO (11:37)
[2023-07-08] MEDS: FUROsemide 10 mg/mL SDV 4mL 40 MG IVP ×3 (11:37→21:08)
[2023-07-08] MEDS: lidocaine 1% 5 ML in potassium chloride premix 100 ML 52.5 ML IV (11:38)
[2023-07-08 11:47] LABS: Glucose Point of Care 231 mg/dL (70-110)
--- NOTE | 2023-07-08 12:30 | PC.NURSE ---
Called report to REESE Pedersen
[2023-07-08] MEDS: albumin 12.5 GM/50 ML VIAL IV (12:47)
[2023-07-08 13:09] LABS: ABG PH Result 7.29 (7.35-7.45); Alveolar-Arterial Oxygen Gradi 4.6 mmHg (5-10); Arterial Blood Gas Hematocrit 34.2 % (42-52); Base Excess ABG 8.6 mmol/L (-2.0-2.0); Blood Gas Allen Test Pos; Blood Gas Sample Site Radial, right; Blood Gas Sample Type Arterial; Carboxyhemoglobin 1.9 %THgb (0.4-20.1); HCO3 ABG 37.6 mmol/L (22-26); Methemoglobin 0.4 % (0.4-1.5); Oxygen Device BIPAP; Oxygen Saturation ABG 99.3; PO2 FiO2 Ratio Arterial Blood 0; Total Hemoglobin 11.2 g/dL (14-18)
[2023-07-08 13:12] LABS: ABG PCO2 77.8 mmHg (35-45)
--- NOTE | 2023-07-08 13:41 | PC.NURSE ---
Arrived from [facility], little LEthargic at this time, tolerating BiPap at this time. Dr. Leyva on unit
--- NOTE | 2023-07-08 13:42 | PC.OT ---
OT tx attempted. Pt has had a decline in status and is being transferred to ICU at this time.
--- NOTE | 2023-07-08 16:32 | PC.NURSE ---
glucose 75, v.o. received per mar, recheck 1 hour after
[2023-07-08] MEDS: dextrose 50% syringe 50 mL IVP (16:39)
[2023-07-08 16:57] LABS: Glucose Point of Care 75 mg/dL (70-110)
--- NOTE | 2023-07-08 18:00 | P.PN_ITS ---
Subjective 2 Subjective: ? Patient was examined multiple times throughout the morning, into the afternoon into the evening, As she was seen early in the morning in the cardiac stepdown unit,, ? Early in the morning, he had 3 L of oral intake, and the last 12 hours, ? On examination he is alert to person, not to place, not to time, encephalopathic, confused with bilateral pitting edema, ? I had extensive discussion with the , my concerns for his decreasing urine output, developing respiratory failure, encephalopathy, hypercarbia, ? Patient was urgently moved into the intensive care unit, for concerns for acute hypoxic hypercarbic respiratory failure, acute encephalopathy secondary to uremia, and hypercarbia, acute renal failure with decreasing urine output, fluid overload, confirmed CODE STATUS with , is a full code ? Repeat ABG shows hypercarbic respiratory failure, was placed on BiPAP, PCO2 was over 99, repeat ABG shows PCO2 improving to 77.8, ? Concerns for fluid overload and was given Lasix in the morning, urine output about 600 cc, ? I had extensive discussion about goals of care with patient's at bedside, for now as his PCO2 is improving he is becoming more alert and awake as he was examined in the ICU, we can hold off on intubation, but his mentation deteriorates, respiratory test deteriorates, we will have to consider intubation, she is agreeable, ? In terms of his fluid overload, I advised her that this continues to be a vicious cycle, he continues to develop fluid overload, his urine output is decreasing his creatinine is becoming increased, his uremia is worsening, this could be playing a role in terms of his encephalopathy, ? Thus we discussed the possibility of dialysis, would help with his fluid overload to help with urea, she was initially hesitant however if his urine output continues to decline his urea continues to worsens, she is agreeable for dialysis, ? For now we will plan on possible dialysis early in the morning tomorrow, based on clinical progress ? Patient did have episode of hypoglycemia, improved with D50, will have to monitor his blood sugars closely, as he has had a history of hypoglycemia, likely related to his acute renal failure ? Mel continues antibiotic therapy ? I again discussed in detail with the patient's at bedside, plan is to monitor urine output overnight, monitor respiratory status, if he is uremia worsens, respiratory status worsens, she is agreeable to intubation, if his uremia worsens urine output through the declines, respiratory status worsens, she is agreeable to elective dialysis Vitals/I&O/Wt Last Vital Signs Temp 98.0 F 07/08/23 08:00 Pulse 66 07/08/23 17:40 Resp 14 07/08/23 17:40 BP 150/76 07/08/23 17:40 Pulse Ox 100 07/08/23 17:40 O2 Del Method Nasal Cannula 07/08/23 11:28 O2 Flow Rate 3 07/08/23 08:00 FiO2 30 07/08/23 15:54 07/08/23 07/08/23 07/08/23 06:59 14:59 22:59 Intake Total 890 / 3920 290 / 290 Output Total 400 / 400 200 / 600 Balance 890 / 3645 -110 / -110 -200 / -310 Weight last 48 hrs Weight 104.326 kg Weight 102.421 kg Physical Exam 2 Urinary Catheter Management: Kincaid: Cath Placed During This Visit: yes Reason for Continuing Indwelling Catheter: Accurate Measurement of Urinary Output in Critically Ill Patients Urinary Catheter Date of Insertion: 07/02/23 Urinary Catheter Time of Insertion: 03:30 Data 07/08/23 07:00 07/08/23 07:00 A&P Assessment and plan (1) Acute hyperkalemia: (2) Pleural effusion: (3) S/P transmetatarsal amputation of foot: Qualifiers: Laterality: right Qualified Code(s): Z89.431 - Acquired absence of right foot (4) Acute kidney injury superimposed on CKD: (5) CKD (chronic kidney disease): (6) Pulmonary infiltrate present on computed tomography: (7) Non-pressure chronic ulcer of other part of right foot with necrosis of bone: (8) Diabetic neuropathy: (9) Ischemic cardiomyopathy: (10) Systolic heart failure: (11) Elevated hemidiaphragm: (12) Atelectasis, left: (13) Status post amputation of toe of right foot: (14) Atrial flutter: Qualifiers: Atrial flutter type: typical Qualified Code(s): I48.3 - Typical atrial flutter (15) Acute respiratory failure with hypoxia and hypercapnia: (16) NSTEMI (non-ST elevated myocardial infarction): (17) Systolic CHF, acute: (18) Pulmonary edema: (19) Fluid overload: (20) Hyperkalemia: (21) Hypothyroidism: (22) SVT (supraventricular tachycardia): (23) Atrial fibrillation with RVR: (24) PNA (pneumonia): (25) Aspiration into airway: (26) Aspiration pneumonitis: (27) Physical deconditioning: (28) Protein calorie malnutrition: Plan Plan Plan Acute encephalopathy, secondary to hypercarbia, uremia ? Likely secondary to fluid overload, pulmonary edema ? Monitor mentation closely, ? Neurochecks, aspiration precautions, Acute renal failure, ? With uremia, ? With uremic encephalopathy, ? Monitor urine output, monitor creatinine, ? Hold Eliquis, keep n.p.o. midnight, for possible dialysis catheter placement tomorrow based on clinical progress Acute hypoxic hypercarbic respiratory failure, ? Low threshold for intubation, continue ICU monitoring ? Secondary to pulm edema, fluid overload, systolic CHF, pneumonia, aspiration pneumonitis, aspiration into airway\?currently hypercarbic respiratory failure PCO2 improving with bipap ? Plan, ? Monitor intensive care unit, ? Continue BiPAP therapy, ? Monitor respiratory status, ?Lasix 40 mg IV 3 doses with metolazone today ? Monitor creatinine monitor urine output, monitor potassium ? Full code, ? scd for DVT prophylaxis Pneumonia Chest x-ray shows bibasilar atelectasis and/or pneumonitis Highly concerning for aspiration event given his altered mental status, hypotension episode, A-fib with RVR, his choking spells? Continue clear liquids for now Speech therapy eval ? Modified barium swallow and barium swallow today vancomycin aztreonam Aspiration pneumonia, aspiration pneumonitis, aspiration airway, ? Aspiration precautions, small volume feeds, for now clear liquids, ? Modified barium and barium swallow today Acute hypotension, resolved ? Likely secondary to vasovagal event, A-fib with RVR, ? currently off leophed ? Currently midline in place, A-fib with RVR ? Currently in normal sinus rhythm, resume low-dose metoprolol if blood pressure heart rate will allow, ? It sensitive to amiodarone, had hypotension will avoid for now -eliquis ? Eliquis for DVT prophylaxis Systolic CHF, ? Repeat cardiac echo, CONCLUSIONS Limited echo to assess the LV function. Mild concentric LVH. Mildly reduced LV systolic function with hypokinesis of mid anterior and anteroseptal wall segments. Estimated LVEF is mildly reduced 45 to 50%. Aortic valve appears significantly thickened with sclerosis and restricted movements of aortic valve leaflets. However any stenosis or regurgitation was not evaluated during the study. ? As above, NSTEMI, History of CAD, stenting x1, ? Type I versus type II NSTEMI ? Acute respiratory failure, ? Plan, ? Serial EKGs, serial troponins, telemetry monitoring, ? Cardiac echo as above, does show mildly reduced ejection fraction ? Aspirin, statin, ? No chest pain complaints, will continue to monitor, consider stress testing either inpatient versus outpatient depending on clinical progress Acute on chronic kidney disease Creatinine 3.2 Nephro consulted Required temporary dialysis for contrast-induced nephropathy in the past Hyperkalemia, improving ? With underlying CKD, ? Several doses of insulin, D50, Kayexalate have been given, with Lasix as above ? Currently on scheduled Kayexalate Right pleural effusion, will consider thoracocentesis Systolic CHF Family not interested in a LifeVest or AICD However EF has improved from 35% to 45% now Patient has bilateral lower extremity swelling Intermittent tachycardia patient receives metoprolol at home Peripheral vascular disease cardiology recommended medical management SVT, status post adenosine, on 07/04/2023 Physical deconditioning, protein calorie malnutrition, consult dietary, PT OT Wound care: Follows up with Dr. Baird once a month Consistent carb diet Sliding scale DVT prophylaxis on board ? Patient was examined multiple times throughout the morning, into the afternoon into the evening, As she was seen early in the morning in the cardiac stepdown unit,, ? Early in the morning, he had 3 L of oral intake, and the last 12 hours, ? On examination he is alert to person, not to place, not to time, encephalopathic, confused with bilateral pitting edema, ? I had extensive discussion with the , my concerns for his decreasing urine output, developing respiratory failure, encephalopathy, hypercarbia, ? Patient was urgently moved into the intensive care unit, for concerns for acute hypoxic hypercarbic respiratory failure, acute encephalopathy secondary to uremia, and hypercarbia, acute renal failure with decreasing urine output, fluid overload, confirmed CODE STATUS with , is a full code ? Repeat ABG shows hypercarbic respiratory failure, was placed on BiPAP, PCO2 was over 99, repeat ABG shows PCO2 improving to 77.8, ? Concerns for fluid overload and was given Lasix in the morning, urine output about 600 cc, ? I had extensive discussion about goals of care with patient's at bedside, for now as his PCO2 is improving he is becoming more alert and awake as he was examined in the ICU, we can hold off on intubation, but his mentation deteriorates, respiratory test deteriorates, we will have to consider intubation, she is agreeable, ? In terms of his fluid overload, I advised her that this continues to be a vicious cycle, he continues to develop fluid overload, his urine output is decreasing his creatinine is becoming increased, his uremia is worsening, this could be playing a role in terms of his encephalopathy, ? Thus we discussed the possibility of dialysis, would help with his fluid overload to help with urea, she was initially hesitant however if his urine output continues to decline his urea continues to worsens, she is agreeable for dialysis, ? For now we will plan on possible dialysis early in the morning tomorrow, based on clinical progress ? Patient did have episode of hypoglycemia, improved with D50, will have to monitor his blood sugars closely, as he has had a history of hypoglycemia, likely related to his acute renal failure ? continues antibiotic therapy ? So far urine output in the last 12 hours it has been 1800 ? I again discussed in detail with the patient's at bedside, plan is to monitor urine output overnight, monitor respiratory status, if he is uremia worsens, respiratory status worsens, she is agreeable to intubation, if his uremia worsens urine output through the declines, respiratory status worsens, she is agreeable to elective dialysis Attestations 2 Medical Necessity Statement*: Patient requires hospitalization for acute hypoxic hypercarbic respiratory failure, uremia, hypercarbia, acute renal failure, encephalopathy, requiring ICU admission, full code, possible dialysis, possible intubation based on clinical progress pneumonia, Coding Level of Care Code Critical Care >/= 30 minutes Critical care time (in minutes): 55 The high probability of a clinically significant, sudden or life threatening deterioration, as referenced in this documentation, required my full and direct attention, intervention and personal management. The critical care time shown is in addition to time spent performing any reported separately billable procedures and includes the following: [x] Data and vital sign review and interpretation [x ] Patient assessment, examination and intervention [x] Medication orders and management [x] Patient/Family updates as able [x] Care Coordination and Documentation. Diagnoses Acute hyperkalemia E87.5 Pleural effusion J90 Status post amputation of right foot through metatarsal bone Z89.431 Laterality: right Acute kidney injury superimposed on CKD N17.9; N18.9 CKD (chronic kidney disease) N18.9 Pulmonary infiltrate present on computed tomography R91.8 Non-pressure chronic ulcer of other part of right foot with necrosis of bone L97.514 Diabetic neuropathy E11.40 Ischemic cardiomyopathy I25.5 Systolic heart failure I50.20 Elevated hemidiaphragm J98.6 Atelectasis, left J98.11 Status post amputation of toe of right foot Z89.421 Typical atrial flutter I48.3 Atrial flutter type: typical Acute respiratory failure with hypoxia and hypercapnia J96.01; J96.02 NSTEMI (non-ST elevated myocardial infarction) I21.4 Systolic CHF, acute I50.21 Pulmonary edema J81.1 Fluid overload E87.70 Hyperkalemia E87.5 Hypothyroidism E03.9 SVT (supraventricular tachycardia) I47.1 Atrial fibrillation with RVR I48.91 PNA (pneumonia) J18.9 Aspiration into airway T17.908A Aspiration pneumonitis J69.0 Physical deconditioning R53.81 Protein calorie malnutrition E46
[2023-07-08 18:01] LABS: Glucose Point of Care 107 mg/dL (70-110)
[2023-07-08 18:02] LABS: Anion Gap 17.5 (5-19); Calcium 7.8 mg/dL (8.5-10.5); Carbon Dioxide 34 mmol/L (22-29); Chloride 97 mmol/L (98-107); Glucose 86 mg/dL (65-115); Osmolality Calculated 326 mOsm/kg (285-295); Potassium 3.5 mmol/L (3.5-5.1); Sodium 145 mmol/L (136-145)
--- NOTE | 2023-07-08 18:09 | P.PN_ITS ---
Subjective 2 Subjective: on 3 L o2 Medications: Reviewed: Yes Vitals/I&O/Wt Last Vital Signs Temp 98.0 F 07/08/23 08:00 Pulse 66 07/08/23 17:40 Resp 14 07/08/23 17:40 BP 150/76 07/08/23 17:40 Pulse Ox 100 07/08/23 17:40 O2 Del Method Nasal Cannula 07/08/23 11:28 O2 Flow Rate 3 07/08/23 08:00 FiO2 30 07/08/23 15:54 07/08/23 07/08/23 07/08/23 06:59 14:59 22:59 Intake Total 890 / 3920 290 / 290 Output Total 400 / 400 200 / 600 Balance 890 / 3645 -110 / -110 -200 / -310 Weight last 48 hrs Weight 104.326 kg Weight 102.421 kg Physical Exam 2 Narrative: Awake, mild distress Urinary Catheter Management: Kincaid: Cath Placed During This Visit: yes Reason for Continuing Indwelling Catheter: Accurate Measurement of Urinary Output in Critically Ill Patients Urinary Catheter Date of Insertion: 07/02/23 Urinary Catheter Time of Insertion: 03:30 Data 07/08/23 07:00 07/08/23 17:25 A&P Assessment and plan (1) Acute kidney injury superimposed on CKD: Plan 1. Acute on chronic kidney disease stage III: Baseline creatinine is in the mid 1 range, had prior SALLY requiring temporary hemodialysis due to contrast nephropathy -Patient presented with SALLY with a creatinine of 3.5 on presentation likely prerenal/ATN. Nonoliguric. Also has hyperkalemia with a potassium of 6.1. -Cr up today , still with has LE edema , if no improvement - will benifit from inititation of HD -UA with 1+ protein, - , UOP lower today 2. Hyperkalemia: Medical management, low K diet, improved 3. Hypernatremia ,improving 4. History of CHF, with low ejection fraction 35 to 45%, 5. History of peripheral vascular disease and right TMA in the past 6. Metabolic alkalosis - contraction alkalosis ,stable Patient evaluated using audiovisual cart. Time spent 20minutes. Attestations 2 Medical Necessity Statement*: per mediicen team Coding Level of Care Code Acute Code for Chg Fwd Diagnoses Acute kidney injury superimposed on CKD N17.9; N18.9
[2023-07-08 18:24] LABS: Blood Urea Nitrogen 87 mg/dL (8-23)
[2023-07-08 18:51] LABS: Glucose Point of Care 65 mg/dL (70-110)
[2023-07-08 20:46] LABS: Glucose Point of Care 91 mg/dL (70-110)
[2023-07-08] MEDS: vancomycin 1,500 MG/300 ML PIGGYBACK 200 MG IV (20:57)
[2023-07-08] MEDS: aspirin 81 mg EC Tablet PO (21:35)
[2023-07-09] VITALS (56 sets, daily range): BP systolic 113–171; BP diastolic 40–81; PULSE 66–89; RESP 12–36; TEMP 36.9; O2SAT 88–99
[2023-07-09 03:15] LABS: Glucose Point of Care 95 mg/dL (70-110)
[2023-07-09 05:03] LABS: ABG PH Result 7.36 (7.35-7.45); Arterial Blood Gas Hematocrit 34.5 % (42-52); Base Excess ABG 7.7 mmol/L (-2.0-2.0); Blood Gas Allen Test Pos; Blood Gas Sample Site Radial, right; Blood Gas Sample Type Arterial; HCO3 ABG 34.9 mmol/L (22-26); Oxygen Device BIPAP; PO2 ABG 78.9 mmHg (80.0-100.0); PO2 FiO2 Ratio Arterial Blood 0
[2023-07-09 05:36] LABS: Basophils # 0.1 10^3/uL (0.0-0.1); Basophils % 0.5 %; Eosinophils # 0.4 10^3/uL (0.0-0.8); Eosinophils % 3.7 %; Lymphocytes # 3.8 10^3/uL (0.8-4.8); Mean Corpuscular HGB Conc 28.5 g/dL (30-55); Mean Corpuscular Hemoglobin 25.8 pg (27-33); Mean Corpuscular Volume 90.5 fl (82-101); Mean Platelet Volume 10.8 fL (7.4-10.4); Monocytes # 0.5 10^3/uL (0.2-0.9); Monocytes % 4.9 %; Neutrophils # 4.99 10^3/uL (1.8-7.7); Neutrophils % 51.7 %; Nucleated Red Blood Cells % 0 %; Platelet Count 119 10^3/cmm (157-399); Red Blood Count 4.31 10^6/uL (3.85-5.65); Red Cell Distribution Width 16.1 % (12.1-15.1); White Blood Count 9.66 10^3/uL (3.29-11.43)
[2023-07-09 05:47] LABS: INR 1.76 (0.8-1.2)
[2023-07-09 05:53] LABS: Lactate (Lactic Acid level) 0.8 mmol/L (0.5-2.2)
[2023-07-09] MEDS: aztreonam 1,000 MG in sodium chloride 0.9% (plus) 50 ML 100 MG IV ×2 (05:54→17:28)
[2023-07-09 06:07] LABS: Procalcitonin 1.61 ng/mL (0-0.5); Thyroid Stimulating Hormone 30.74 uIU/mL (0.27-4.20)
[2023-07-09 06:20] LABS: Alanine Aminotransferase 12 U/L (0-41); Alkaline Phosphatase 71 U/L (40-130); Anion Gap 18.8 (5-19); Aspartate Amino Transferase 12 U/L (0-40); C Reactive Protein 17.6 mg/L (0.0-4.9); Calcium 7.9 mg/dL (8.5-10.5); Carbon Dioxide 33 mmol/L (22-29); Chloride 97 mmol/L (98-107); Creatine Phosphokinase 25 U/L (39-308); Globulin 1.3 g/dL (1.3-4.6); Glucose 101 mg/dL (65-115); Magnesium 2.6 mg/dL (1.7-2.3); Osmolality Calculated 328 mOsm/kg (285-295); Phosphorus 4.4 mg/dL (2.5-4.5); Potassium 3.8 mmol/L (3.5-5.1); Sodium 145 mmol/L (136-145); Total Bilirubin 0.8 mg/dL (0.15-1.2); Total Protein 5.3 g/dL (6.6-8.7)
[2023-07-09 06:22] LABS: Blood Urea Nitrogen 91 mg/dL (8-23)
[2023-07-09 06:28] LABS: NT Pro B Type Natriuretic Pept 30948 pg/mL (0-125)
--- NOTE | 2023-07-09 06:45 | PM.CONSULT ---
Providers/Reason For Consult Consulting Physician/Specialty*: Walter Baird D.P.M. Reason for Consult*: Venous insufficiency wound left leg, wound right transmetatarsal amputation Attending Physician: Vitaly Leyva MD Primary Care Provider: Beatriz Brady History of Present Illness History of Present Illness Usman Alvarez is a 73 year old male Review of Systems General: Reports: 10 or more systems reviewed and unremarkable except in HPI and below Const: Denies: fever(s) or chills Eyes: Denies: change in vision Card: Denies: chest pain or palpitations Resp: Denies: dyspnea or productive cough GI: Denies: abdominal pain, nausea or vomiting : Denies: flank pain Musc: Reports: extremity swelling, joint stiffness and deformity Skin/Breast: Reports: erythema, sores, changes in skin color, dry skin, nail changes and change in hair Neuro: Reports: numbness in extremities, sensory changes and difficulty walking Psych: Denies: suicidal ideation Endo: Denies: change in body appearance Zeb/Lymph: Denies: tender lymph nodes Medications/Allergies Home Medications Medication Instructions Recorded Confirmed Last Taken Type garlic 1,000 mg capsule 1,000 mg PO BEDTIME 08/31/19 07/01/23 06/30/23 History furosemide 40 mg tablet 40 mg PO QAM 09/25/21 07/01/23 07/01/23 History tramadol 50 mg tablet 50 mg PO BEDTIME 06/14/22 07/01/23 06/30/23 History [place] Drops See Rx Instructions .Route .COMPLEX 02/05/23 07/01/23 07/01/23 History aspirin 81 mg tablet,delayed 81 mg PO BEDTIME 02/05/23 07/01/23 06/30/23 History release hawthorn 500 mg capsule (hawthorn 500 mg PO BID 02/05/23 07/01/23 07/01/23 History tejada) insulin detemir U-100 100 unit/mL 36 unit SUBCUT QAM 02/05/23 07/01/23 06/30/23 History (3 mL) subcutaneous pen (Levemir FlexPen) insulin regular human 100 unit/mL See Rx Instructions .Route .COMPLEX 02/05/23 07/01/23 06/30/23 History injection solution (Novolin R Regular U-100 Insulin) magnesium oxide 400 mg PO QPM 02/05/23 07/01/23 06/30/23 History nitroglycerin 0.4 mg sublingual 0.4 mg sublingual Q5M PRN Chest 02/05/23 07/01/23 Unknown History tablet (Nitrostat) Pain resveratrol 100 mg capsule 100 mg PO BID 02/05/23 07/01/23 07/01/23 History thyroid (pork) 60 mg tablet 60 mg PO QAM 02/05/23 07/01/23 1 Week Ago History ([place] Thyroid) ~01/29/23 [place] to Right Lower Extremity #1 ea 03/24/23 07/01/23 Unknown Rx [place] Boot to the right #1 ea 03/26/23 07/01/23 Unknown Rx Vitamin B Complex Liquid See Rx Instructions .Route .COMPLEX 04/16/23 07/01/23 07/01/23 History mirtazapine 15 mg tablet (Remeron) 15 mg PO DAILY #30 tabs 06/20/23 07/01/23 07/01/23 Rx Allergies Allergy/AdvReac Type Severity Reaction Status Date / Time Penicillins Allergy Severe Throat Verified 07/01/23 15:43 swells amiodarone Allergy Unknown Verified 07/05/23 05:55 atorvastatin Allergy ADR-Muscle Verified 07/06/23 03:25 Pain azithromycin Allergy ADR/ALGY-Pa Verified 07/01/23 15:43 lpitations ciprofloxacin Allergy hallucinations Verified 07/01/23 15:43 and burning sensation in legs simvastatin Allergy ADR-Muscle Verified 07/06/23 03:12 Pain Cordarone Allergy Unknown Confusion Uncoded 07/01/23 14:55 Current Medications Generic Name Dose Route Start Last Admin Trade Name Freq PRN Reason Stop Dose Admin Acetaminophen 500 mg 07/01/23 19:25 07/04/23 23:25 Acetaminophen 500 Mg Tablet PO 500 mg Q4H PRN Administration fever Apixaban 5 mg 07/05/23 21:00 07/08/23 10:32 Apixaban 5 Mg Tablet PO 5 mg BID@0900,2100 SAHARA Administration Aspirin 81 mg 07/02/23 14:40 07/08/23 21:35 Aspirin 81 Mg Ec Tablet PO 81 mg BEDTIME SAHARA Administration Dextrose 500 mls @ 0 mls/hr 07/01/23 19:25 07/08/23 02:58 D5w IV Infused ONCE PRN Infusion Adult Acute Hypoglycemia Prot Protocol Per Protocol Aztreonam 1,000 mg/ Sodium 50 mls @ 100 mls/hr 07/05/23 18:00 07/09/23 06:29 Chloride IV Infused Q12H SAHARA Infusion Protocol Vancomycin/PEG/NADA/Lysine/Water 1,500 mg in 300 mls @ 200 mls/hr 07/05/23 19:30 07/08/23 22:30 Vancocin IV Infused Q36H SAHARA Infusion Insulin Human Lispro 0 unit 07/07/23 21:15 07/08/23 20:59 Insulin Lispro 100 Unit/1 Ml SUBCUT Not Given WM&BEDTIME SAHARA Protocol Lanolin 1 applic 07/05/23 20:51 07/05/23 21:02 Lanolin Oint 7 Gm TOPICAL 1 applic PRN PRN Administration DRYNESS Metoprolol Tartrate 25 mg 07/07/23 09:00 07/08/23 21:35 Metoprolol Tartrate 25 Mg Tablet PO 25 mg BID@0900,2100 SAHARA Administration Ondansetron HCl 4 mg 07/01/23 19:25 07/05/23 08:46 Ondansetron 2 Mg/Ml Sdv 2 Ml IVP 4 mg Q6H PRN Administration NAUSEA AND VOMITING Thiamine Mononitrate 100 mg 07/02/23 14:40 07/08/23 10:33 Thiamine 100 Mg Tablet PO 100 mg DAILY SAHARA Administration Thyroid 60 mg 07/05/23 06:00 07/09/23 05:53 Thyroid 60 Mg Tablet PO Not Given QAM SAHARA PFSH Acute PFSH: Medical History SVT (supraventricular tachycardia) Gangrenous toe CKD (chronic kidney disease) Systolic heart failure Pleural effusion, left Non-healing ulcer Ischemic cardiomyopathy Diabetic ulcer of right foot Atherosclerosis of coronary artery Kidney stone Amputation toe Diabetes mellitus with peripheral vascular disease Diabetic neuropathy HTN (hypertension) Diabetes Surgical History H/O chest tube placement S/P cholecystectomy S/P tonsillectomy S/P cataract extraction Family History Father Cancer LUNG Mother CAD (coronary artery disease) Diabetes CHF (congestive heart failure) Myocardial infarction Social History Smoking and tobacco/nicotine status: never used tobacco/nicotine Alcohol intake: never Substance/Drug Use: never Household members: spouse Marital status: Current occupational status: retired Vitals/I&O/Wt Last Vital Signs Temp 98.5 F 07/09/23 05:30 Pulse 73 07/09/23 06:00 Resp 12 07/09/23 06:00 BP 152/62 07/09/23 06:00 Pulse Ox 99 07/09/23 06:00 O2 Del Method BiPAP 07/09/23 06:00 O2 Flow Rate 3 07/08/23 08:00 FiO2 30 07/09/23 06:00 07/08/23 07/08/23 07/09/23 14:59 22:59 06:59 Intake Total 290 / 290 505 / 795 50 / 845 Output Total 400 / 400 200 / 600 150 / 750 Balance -110 / -110 305 / 195 -100 / 95 Weight last 48 hrs Weight 232 lb 8 oz Weight 230 lb Weight 225 lb 12.8 oz Physical Exam Narrative: GENERAL: Patient is alert and oriented ?3 and in no acute distress. The following is a focused right lower extremity exam. VASCULAR: Dorsalis pedis and posterior tibial arteries diminished. Delay in capillary refill right transmetatarsal potation stump. Edema to the right lower extremity. NEUROLOGICAL: Protective sensation diminished to light touch. DERMATOLOGICAL: Eschar at the plantar lateral aspect of the right transmetatarsal amputation site. No purulence or erythema or warmth. Bilateral feet and leg dependent rubor. Water blisters limited to breakdown of skin x 2 at the left anterior leg. No purulent drainage and no proximal lymphangitic streaking, no soft tissue crepitus. MUSCULOSKELETAL: No pain with posterior calf squeeze. Status post right transmetatarsal amputation. Urinary Catheter Management: Kincaid: Cath Placed During This Visit: yes Reason for Continuing Indwelling Catheter: Accurate Measurement of Urinary Output in Critically Ill Patients Urinary Catheter Date of Insertion: 07/02/23 Urinary Catheter Time of Insertion: 03:30 Data 07/10/23 04:58 07/10/23 04:58 A&P Assessment and plan (1) S/P transmetatarsal amputation of foot: Qualifiers: Laterality: right Qualified Code(s): Z89.431 - Acquired absence of right foot (2) Dehiscence of wound: (3) Diabetic peripheral neuropathy associated with type 2 diabetes mellitus: (4) Leg wound, left: Plan 73-year-old male status post right transmetatarsal amputation with surgical site dehiscence and delayed healing. At this time the right TMA amputation site with wound is stable with a stable eschar, no periwound erythema, there is no warmth or drainage. Right foot wound was dressed at today's visit with silver alginate, 4 inch Kerlix, skin tape, sock covering and white stockinette without compression of the right leg. Left leg has a grade 1 wound at the anterior lateral leg without acute signs of infection. Dressed with silver alginate, Unna boot, formed Kerlix, Dominik wrap and stockinette. Patient may weight-bear as tolerated with a Ortho Claudia whole limb salvage boot to the right lower extremity and a diabetic shoe with diabetic insert to the left lower extremity. May be weightbearing as tolerated with physical therapy, will require aggressive physical therapy for standing, transferring and walking. Coding Level of Care Code Acute Code for Chg Fwd Diagnoses Status post amputation of right foot through metatarsal bone Z89.431 Laterality: right Dehiscence of wound T81.30XA Diabetic peripheral neuropathy associated with type 2 diabetes mellitus E11.42 Leg wound, left S81.802A
--- NOTE | 2023-07-09 07:00 | XRR_ITS ---
PROCEDURE INFORMATION: Exam: XR Chest Exam date and time: 07/09/2023 7:56 AM Age: 73 years old Clinical indication: Shortness of breath; Additional info: SOB TECHNIQUE: Imaging protocol: Radiologic exam of the chest. Views: 1 view. COMPARISON: CR (CHEST, ) 07/06/2023 5:42 AM FINDINGS: Lungs: There is increased strandy atelectasis or infiltrate in the left lung base. Density in the right hemithorax is thought to be a combination of right basilar atelectasis/infiltrate and right pleural effusion some of which is layering posteriorly. The pleural effusion appears somewhat larger than before but this could be due to differences in positioning. Pleural spaces: See Lungs finding. Heart/Mediastinum: The heart is mildly enlarged and stable. Bones/joints: Unremarkable. XR/XR chest 1V portable [id number] IMPRESSION: 1. Increased atelectasis/infiltrate left lung base. 2. Increased density right lung thought to be a combination of increased atelectasis/infiltrate right lung base and increased size right pleural effusion, see above.
[2023-07-09 07:13] LABS: ABG PCO2 61.7 mmHg (35-45)
[2023-07-09 07:54] LABS: Glucose Point of Care 93 mg/dL (70-110)
--- NOTE | 2023-07-09 08:18 | PC.OT ---
OT TREATMENT HELD DUE TO ELEVATED BUN
[2023-07-09] MEDS: albumin 25 G/100 ML BAG 60 G IV (08:53)
[2023-07-09] MEDS: bumetanide 0.25 mg/mL SDV 4 mL 1 MG IVP ×2 (08:54→15:43)
[2023-07-09] MEDS: metOLazone 5 MG Tablet PO (08:54)
[2023-07-09] MEDS: metoprolol tartrate 25 mg Tablet PO ×2 (08:54→21:06)
[2023-07-09] MEDS: thiamine 100 mg Tablet PO (08:54)
--- NOTE | 2023-07-09 09:11 | P.PN_ITS ---
Subjective 2 Subjective: UOP low Medications: Reviewed: Yes Vitals/I&O/Wt Last Vital Signs Temp 98.5 F 07/09/23 05:30 Pulse 73 07/09/23 08:00 Resp 12 07/09/23 08:00 BP 171/75 07/09/23 08:00 Pulse Ox 98 07/09/23 08:00 O2 Del Method BiPAP 07/09/23 08:00 O2 Flow Rate 3 07/08/23 08:00 FiO2 30 07/09/23 08:00 07/08/23 07/09/23 07/09/23 22:59 06:59 14:59 Intake Total 505 / 795 50 / 845 0 / 0 Output Total 200 / 600 150 / 750 575 / 575 Balance 305 / 195 -100 / 95 -575 / -575 Weight last 48 hrs Weight 105.46 kg Weight 104.326 kg Weight 102.421 kg Physical Exam 2 Narrative: Awake, mild distress Urinary Catheter Management: Kincaid: Cath Placed During This Visit: yes Reason for Continuing Indwelling Catheter: Accurate Measurement of Urinary Output in Critically Ill Patients Urinary Catheter Date of Insertion: 07/02/23 Urinary Catheter Time of Insertion: 03:30 Data 07/09/23 04:52 07/09/23 04:52 A&P Assessment and plan (1) Acute kidney injury superimposed on CKD: Plan 1. Acute on chronic kidney disease stage III: Baseline creatinine is in the mid 1 range, had prior SALLY requiring temporary hemodialysis due to contrast nephropathy -Patient presented with SALLY with a creatinine of 3.5 on presentation likely prerenal/ATN. Nonoliguric. no improvement in renal function - has volume overload , rising BUN , and low UOP , -UA with 1+ protein, - , UOP low, plan to inititate HD for volume management 2. Hyperkalemia: Medical management, low K diet, improved 3. Hypernatremia ,improving 4. History of CHF, with low ejection fraction 35 to 45%, 5. History of peripheral vascular disease and right TMA in the past 6. Metabolic alkalosis - contraction alkalosis ,stable Patient evaluated using audiovisual cart. Time spent 20minutes. Attestations 2 Medical Necessity Statement*: per medicine Coding Level of Care Code Acute Code for Chg Fwd Diagnoses Acute kidney injury superimposed on CKD N17.9; N18.9
--- NOTE | 2023-07-09 09:55 | PC.SOCIAL ---
IMM Update Updated pt on IMM. No questions voiced. Provided pt a copy. Initialed, dated, & timed copy in chart.
[2023-07-09] MEDS: epoetin alfa 1000 Unit/0.05 mL (ESRD) 20000 UNIT IVP (11:05)
[2023-07-09 11:20] LABS: Glucose Point of Care 108 mg/dL (70-110)
--- NOTE | 2023-07-09 14:59 | P.PN_ITS ---
Subjective 2 Subjective: ? Patient was examined early this morning is alert oriented x3, follows all commands and is on nasal cannula, we discussed his persistent hypercarbia improved to 66, plan on putting him back on BiPAP throughout the day, we can try clear liquids if he can tolerate we can advance to GI soft diet ?I discussed his renal failure, he is uremia, I will continue diuresis, but he has had recurrent ICU visits for acute flash pulm edema fluid overload, I would strongly recommend for him to get dialysis, to keep the fluid off of him, to help with the uremia, and hopefully keep him out of the hospital, to keep him out of the ICU to keep him out of acute flash pulmonary edema, ? I spoke to him about the risk and benefits about dialysis, at bedside, he voiced understanding, all questions answered, agreed to proceed with dialysis, ? Spoke to general surgery last dose of Eliquis was yesterday at 10 AM, plan on permacath placement tomorrow morning at in the morning, I spoke to nephrology, plan on dialysis tomorrow morning plan is to dialyze hopefully tomorrow, ? We will diurese today Vitals/I&O/Wt Last Vital Signs Temp 98.4 F 07/09/23 10:00 Pulse 74 07/09/23 14:00 Resp 20 H 07/09/23 13:30 BP 154/68 07/09/23 13:30 Pulse Ox 95 07/09/23 13:30 O2 Del Method BiPAP 07/09/23 13:30 O2 Flow Rate 3 07/09/23 13:00 FiO2 30 07/09/23 13:30 07/08/23 07/09/23 07/09/23 22:59 06:59 14:59 Intake Total 505 / 795 50 / 845 160 / 160 Output Total 200 / 600 150 / 750 1000 / 1000 Balance 305 / 195 -100 / 95 -840 / -840 Weight last 48 hrs Weight 105.46 kg Weight 104.326 kg Weight 102.421 kg Physical Exam 2 Const: COMMON NORMALS: no acute distress and patient oriented x3 Resp: COMMON NORMALS: normal respiratory effort, No retractions and No use of accessory muscles OTHER: Crackles on examination Cardio: COMMON NORMALS: regular rate, regular rhythm, S1 normal heart sound present and S2 normal heart sound present RATE: regular rate RHYTHM: r egular rhythm HEART SOUNDS: S1 normal heart sound present and S2 normal heart sound present GI: COMMON NORMALS: Normal to inspection, nondistended, normoactive bowel sounds present and non-tender Extremity: NARRATIVE EXTREMITY EXAM: 2+ pitting edema bilateral extremity Neuro: COMMON NORMALS: patient oriented x3 Psych: COMMON NORMALS: mental status grossly normal Urinary Catheter Management: Kincaid: Cath Placed During This Visit: yes Reason for Continuing Indwelling Catheter: Accurate Measurement of Urinary Output in Critically Ill Patients Urinary Catheter Date of Insertion: 07/02/23 Urinary Catheter Time of Insertion: 03:30 Data 07/09/23 04:52 07/09/23 04:52 A&P Assessment and plan (1) Acute hyperkalemia: (2) Pleural effusion: (3) S/P transmetatarsal amputation of foot: Qualifiers: Laterality: right Qualified Code(s): Z89.431 - Acquired absence of right foot (4) Acute kidney injury superimposed on CKD: (5) CKD (chronic kidney disease): (6) Pulmonary infiltrate present on computed tomography: (7) Non-pressure chronic ulcer of other part of right foot with necrosis of bone: (8) Diabetic neuropathy: (9) Ischemic cardiomyopathy: (10) Systolic heart failure: (11) Elevated hemidiaphragm: (12) Atelectasis, left: (13) Status post amputation of toe of right foot: (14) Atrial flutter: Qualifiers: Atrial flutter type: typical Qualified Code(s): I48.3 - Typical atrial flutter (15) Acute respiratory failure with hypoxia and hypercapnia: (16) NSTEMI (non-ST elevated myocardial infarction): (17) Systolic CHF, acute: (18) Pulmonary edema: (19) Fluid overload: (20) Hyperkalemia: (21) Hypothyroidism: (22) SVT (supraventricular tachycardia): (23) Atrial fibrillation with RVR: (24) PNA (pneumonia): (25) Aspiration into airway: (26) Aspiration pneumonitis: (27) Physical deconditioning: (28) Protein calorie malnutrition: Plan Plan Plan Acute encephalopathy, secondary to hypercarbia, uremia ? Improving this morning, back to baseline alert oriented x3 ? Likely secondary to fluid overload, pulmonary edema ? Monitor mentation closely, ? Neurochecks, aspiration precautions, Acute renal failure, ? With uremia, ? With uremic encephalopathy, ? Monitor urine output, monitor creatinine, ? Hold Eliquis, keep n.p.o. midnight, for possible dialysis catheter placement tomorrow -General surgery consulted Acute hypoxic hypercarbic respiratory failure, ? Low threshold for intubation, continue ICU monitoring ? Secondary to pulm edema, fluid overload, systolic CHF, pneumonia, aspiration pneumonitis, aspiration into airway\?currently hypercarbic respiratory failure PCO2 improving with bipap ? Plan, ? Monitor intensive care unit, ? Continue BiPAP therapy, ? Monitor respiratory status, ? 2 doses of Bumex today we will consider another dose this afternoon based on clinical progress ? Monitor creatinine monitor urine output, monitor potassium ? Full code, ? scd for DVT prophylaxis Pneumonia Chest x-ray shows bibasilar atelectasis and/or pneumonitis Highly concerning for aspiration event given his altered mental status, hypotension episode, A-fib with RVR, his choking spells? Continue clear liquids for now Speech therapy eval ? Modified barium swallow and barium swallow today vancomycin aztreonam Aspiration pneumonia, aspiration pneumonitis, aspiration airway, ? Aspiration precautions, small volume feeds, for now clear liquids, ? Modified barium and barium swallow today Acute hypotension, resolved ? Likely secondary to vasovagal event, A-fib with RVR, ? currently off leophed ? Currently midline in place, A-fib with RVR ? Currently in normal sinus rhythm, resume low-dose metoprolol if blood pressure heart rate will allow, ? It sensitive to amiodarone, had hypotension will avoid for now -eliquis ? Eliquis for DVT prophylaxis Systolic CHF, ? Repeat cardiac echo, CONCLUSIONS Limited echo to assess the LV function. Mild concentric LVH. Mildly reduced LV systolic function with hypokinesis of mid anterior and anteroseptal wall segments. Estimated LVEF is mildly reduced 45 to 50%. Aortic valve appears significantly thickened with sclerosis and restricted movements of aortic valve leaflets. However any stenosis or regurgitation was not evaluated during the study. ? As above, NSTEMI, History of CAD, stenting x1, ? Type I versus type II NSTEMI ? Acute respiratory failure, ? Plan, ? Serial EKGs, serial troponins, telemetry monitoring, ? Cardiac echo as above, does show mildly reduced ejection fraction ? Aspirin, statin, ? No chest pain complaints, will continue to monitor, consider stress testing either inpatient versus outpatient depending on clinical progress Acute on chronic kidney disease Creatinine 3.2 Nephro consulted Required temporary dialysis for contrast-induced nephropathy in the past Hyperkalemia, improving ? With underlying CKD, ? Several doses of insulin, D50, Kayexalate have been given, with Lasix as above ? Currently on scheduled Kayexalate Right pleural effusion, will consider thoracocentesis Systolic CHF Family not interested in a LifeVest or AICD However EF has improved from 35% to 45% now Patient has bilateral lower extremity swelling Intermittent tachycardia patient receives metoprolol at home Peripheral vascular disease cardiology recommended medical management SVT, status post adenosine, on 07/04/2023 Physical deconditioning, protein calorie malnutrition, consult dietary, PT OT Wound care: Follows up with Dr. Baird once a month Consistent carb diet Sliding scale DVT prophylaxis on board Plan for today continue diuresis, optimize for dialysis catheter placement tomorrow, n.p.o. midnight, hold anticoagulant therapy, continue BiPAP therapy persistently hypercarbic, continue to monitor closely in ICU Attestations 2 Medical Necessity Statement*: Patient requires hospitalization for acute renal failure, hypercarbic respiratory failure, fluid overload, uremia, pneumonia Diagnoses Acute hyperkalemia E87.5 Pleural effusion J90 Status post amputation of right foot through metatarsal bone Z89.431 Laterality: right Acute kidney injury superimposed on CKD N17.9; N18.9 CKD (chronic kidney disease) N18.9 Pulmonary infiltrate present on computed tomography R91.8 Non-pressure chronic ulcer of other part of right foot with necrosis of bone L97.514 Diabetic neuropathy E11.40 Ischemic cardiomyopathy I25.5 Systolic heart failure I50.20 Elevated hemidiaphragm J98.6 Atelectasis, left J98.11 Status post amputation of toe of right foot Z89.421 Typical atrial flutter I48.3 Atrial flutter type: typical Acute respiratory failure with hypoxia and hypercapnia J96.01; J96.02 NSTEMI (non-ST elevated myocardial infarction) I21.4 Systolic CHF, acute I50.21 Pulmonary edema J81.1 Fluid overload E87.70 Hyperkalemia E87.5 Hypothyroidism E03.9 SVT (supraventricular tachycardia) I47.1 Atrial fibrillation with RVR I48.91 PNA (pneumonia) J18.9 Aspiration into airway T17.908A Aspiration pneumonitis J69.0 Physical deconditioning R53.81 Protein calorie malnutrition E46
[2023-07-09 15:01] LABS: Hepatitis B Core AB, Total Non-Reactive (Nonreactive); Hepatitis B Surface AB < 3.5 (11.5-1000); Hepatitis B Surface Antigen Non-Reactive (Nonreactive)
--- NOTE | 2023-07-09 16:10 | P.CONIM_ITS ---
Providers/Reason For Consult 2 Consulting Physician/Specialty*: Dr. Yogesh De La Rosa, DO/General surgery Reason for Consult*: Need for hemodialysis access Attending Physician: Vitaly Leyva MD Primary Care Provider: Beatriz Brady History of Present Illness History of Present Illness Usman Alvarez is a 73 year old male who originally presented to the hospital from his practice advisor's office due to hypoxia. He has been in the hospital approximately 2 weeks now. He does have a history of ATN after contrast-induced Nephropathy. He has a history of temporary hemodialysis catheter placed twice. He is currently responsive on BiPAP in the ICU. He denies any current pain. Medications/Allergies Home Medications Medication Instructions Recorded Confirmed Last Taken Type garlic 1,000 mg capsule 1,000 mg PO BEDTIME 08/31/19 07/01/23 06/30/23 History furosemide 40 mg tablet 40 mg PO QAM 09/25/21 07/01/23 07/01/23 History tramadol 50 mg tablet 50 mg PO BEDTIME 06/14/22 07/01/23 06/30/23 History [place]lein Drops See Rx Instructions .Route .COMPLEX 02/05/23 07/01/23 07/01/23 History aspirin 81 mg tablet,delayed 81 mg PO BEDTIME 02/05/23 07/01/23 06/30/23 History release hawthorn 500 mg capsule (hawthorn 500 mg PO BID 02/05/23 07/01/23 07/01/23 History tejada) insulin detemir U-100 100 unit/mL 36 unit SUBCUT QAM 02/05/23 07/01/23 06/30/23 History (3 mL) subcutaneous pen (Levemir FlexPen) insulin regular human 100 unit/mL See Rx Instructions .Route .COMPLEX 02/05/23 07/01/23 06/30/23 History injection solution (Novolin R Regular U-100 Insulin) magnesium oxide 400 mg PO QPM 02/05/23 07/01/23 06/30/23 History nitroglycerin 0.4 mg sublingual 0.4 mg sublingual Q5M PRN Chest 02/05/23 07/01/23 Unknown History tablet (Nitrostat) Pain resveratrol 100 mg capsule 100 mg PO BID 02/05/23 07/01/23 07/01/23 History thyroid (pork) 60 mg tablet 60 mg PO QAM 02/05/23 07/01/23 1 Week Ago History (Mead Thyroid) ~01/29/23 Owls Boot to Right Lower Extremity #1 ea 03/24/23 07/01/23 Unknown Rx Cam Boot to the right #1 ea 03/26/23 07/01/23 Unknown Rx Vitamin B Complex Liquid See Rx Instructions .Route .COMPLEX 04/16/23 07/01/23 07/01/23 History mirtazapine 15 mg tablet (Remeron) 15 mg PO DAILY #30 tabs 06/20/23 07/01/23 07/01/23 Rx Allergies Allergy/AdvReac Type Severity Reaction Status Date / Time Penicillins Allergy Severe Throat Verified 07/01/23 15:43 swells amiodarone Allergy Unknown Verified 07/05/23 05:55 atorvastatin Allergy ADR-Muscle Verified 07/06/23 03:25 Pain azithromycin Allergy ADR/ALGY-Pa Verified 07/01/23 15:43 lpitations ciprofloxacin Allergy hallucinations Verified 07/01/23 15:43 and burning sensation in legs simvastatin Allergy ADR-Muscle Verified 07/06/23 03:12 Pain Cordarone Allergy Unknown Confusion Uncoded 07/01/23 14:55 Current Medications Generic Name Dose Route Start Last Admin Trade Name Freq PRN Reason Stop Dose Admin Acetaminophen 500 mg 07/01/23 19:25 07/09/23 22:07 Acetaminophen 500 Mg Tablet PO 500 mg Q4H PRN Administration fever Apixaban 5 mg 07/05/23 21:00 07/08/23 10:32 Apixaban 5 Mg Tablet PO 5 mg BID@0900,2100 SAHARA Administration Aspirin 81 mg 07/02/23 14:40 07/09/23 21:06 Aspirin 81 Mg Ec Tablet PO 81 mg BEDTIME SAHARA Administration Dextrose 500 mls @ 0 mls/hr 07/01/23 19:25 07/08/23 02:58 D5w IV Infused ONCE PRN Infusion Adult Acute Hypoglycemia Prot Protocol Per Protocol Aztreonam 1,000 mg/ Sodium 50 mls @ 100 mls/hr 07/05/23 18:00 07/10/23 06:27 Chloride IV Infused Q12H SAHARA Infusion Protocol Vancomycin/PEG/NADA/Lysine/Water 1,500 mg in 300 mls @ 200 mls/hr 07/05/23 19:30 07/10/23 07:41 Vancocin IV Not Given Q36H SAHARA Insulin Human Lispro 0 unit 07/07/23 21:15 07/09/23 21:05 Insulin Lispro 100 Unit/1 Ml SUBCUT 8 unit WM&BEDTIME SAHARA Administration Protocol Lanolin 1 applic 07/05/23 20:51 07/05/23 21:02 Lanolin Oint 7 Gm TOPICAL 1 applic PRN PRN Administration DRYNESS Metoprolol Tartrate 25 mg 07/07/23 09:00 07/09/23 21:06 Metoprolol Tartrate 25 Mg Tablet PO 25 mg BID@0900,2100 SAHARA Administration Ondansetron HCl 4 mg 07/01/23 19:25 07/05/23 08:46 Ondansetron 2 Mg/Ml Sdv 2 Ml IVP 4 mg Q6H PRN Administration NAUSEA AND VOMITING Thiamine Mononitrate 100 mg 07/02/23 14:40 07/09/23 08:54 Thiamine 100 Mg Tablet PO 100 mg DAILY SAHARA Administration Thyroid 60 mg 07/05/23 06:00 07/10/23 07:40 Thyroid 60 Mg Tablet PO Not Given QAM SAHARA PFSH Acute 2 PFSH: Medical History SVT (supraventricular tachycardia) Gangrenous toe CKD (chronic kidney disease) Systolic heart failure Pleural effusion, left Non-healing ulcer Ischemic cardiomyopathy Diabetic ulcer of right foot Atherosclerosis of coronary artery Kidney stone Amputation toe Diabetes mellitus with peripheral vascular disease Diabetic neuropathy HTN (hypertension) Diabetes Surgical History H/O chest tube placement S/P cholecystectomy S/P tonsillectomy S/P cataract extraction Family History Father Cancer LUNG Mother CAD (coronary artery disease) Diabetes CHF (congestive heart failure) Myocardial infarction Social History Smoking and tobacco/nicotine status: never used tobacco/nicotine Alcohol intake: never Substance/Drug Use: never Household members: spouse Marital status: Current occupational status: retired Vitals/I&O/Wt Last Vital Signs Temp 98.6 F 07/10/23 04:30 Pulse 78 07/10/23 06:00 Resp 15 07/10/23 05:00 BP 144/64 07/10/23 06:00 Pulse Ox 96 07/10/23 06:00 O2 Del Method Nasal Cannula 07/10/23 06:00 O2 Flow Rate 3 07/10/23 06:00 FiO2 30 07/10/23 04:00 07/09/23 07/10/23 07/10/23 22:59 06:59 14:59 Intake Total 470 / 630 293 / 923 Output Total 425 / 1425 300 / 1725 Balance 45 / -795 -7 / -802 Weight last 48 hrs Weight 229 lb 9.6 oz Weight 232 lb 8 oz Physical Exam 2 Narrative: General : Patient is well developed , no acute distress, oriented x3 Head : Normal cephalic, a-traumatic. Ears : Pinnae and external canal are normal. Hearing is normal. Eyes : PERRLA, Sclera and injection are normal. No conjunctival discharge. Nose : Mucous membranes are without erythema. Throat : buccal mucosa is normal, gums are without significant recession or hypertrophy. Lungs : Equal chest rise bilaterally, no use of accessory muscles, trachea is midline. Cor : Rate and rhythm are normal. Abdomen : Soft, ND, NT, no g/r/m Extremities : No edema, no cyanosis or clubbing, dorsalis pedis pulses are present bilaterally, non-tender to palpation of calves. Upper extremities are normal bilaterally. Back : non-tender to palpation, no CVA tenderness. Neuro : CN II - XII intact, Upper and lower extremities have equal and full strength Urinary Catheter Management: Ikncaid: Cath Placed During This Visit: yes Reason for Continuing Indwelling Catheter: Accurate Measurement of Urinary Output in Critically Ill Patients Urinary Catheter Date of Insertion: 07/02/23 Urinary Catheter Time of Insertion: 03:30 Data 07/10/23 04:58 07/10/23 04:58 A&P Assessment and plan (1) Contrast-induced nephropathy: (2) CKD (chronic kidney disease): (3) Fluid overload: Plan Permacath placement tomorrow The risks and benefits of the procedure, including but not limited to, bleeding, infection, infection requiring Mediport removal antibiotic therapy and repeat surgery, damage to surrounding structures, scar, numbness, pain, pneumothorax requiring thoracostomy tube, were explained to the patient. He/She is understanding of the risks and wishes to proceed. Coding Level of Care Code 41367 Diagnoses Contrast-induced nephropathy N14.11; T50.8X5A CKD (chronic kidney disease) N18.9 Fluid overload E87.70
[2023-07-09 17:24] LABS: Glucose Point of Care 133 mg/dL (70-110)
[2023-07-09 20:53] LABS: Glucose Point of Care 253 mg/dL (70-110)
[2023-07-09] MEDS: insulin lispro 100 unit/1 mL SUBCUT (21:05)
[2023-07-09] MEDS: aspirin 81 mg EC Tablet PO (21:06)
[2023-07-09 22:05] LABS: Glucose Point of Care 242 mg/dL (70-110)
[2023-07-09] MEDS: acetaminophen 500 mg Tablet PO (22:07)
[2023-07-10] VITALS (52 sets, daily range): BP systolic 102–177; BP diastolic 52–101; PULSE 72–89; RESP 3–36; TEMP 36.6–37; O2SAT 79–100
[2023-07-10 05:37] LABS: Basophils % 0.4 %; Eosinophils # 0.2 10^3/uL (0.0-0.8); Eosinophils % 2.2 %; Hematocrit 36.9 % (37-53); Lymphocytes # 4.6 10^3/uL (0.8-4.8); Lymphocytes % 44.5 %; Mean Corpuscular HGB Conc 29.3 g/dL (30-55); Mean Corpuscular Hemoglobin 25.9 pg (27-33); Mean Corpuscular Volume 88.5 fl (82-101); Mean Platelet Volume 10.8 fL (7.4-10.4); Monocytes # 0.6 10^3/uL (0.2-0.9); Monocytes % 5.5 %; Neutrophils # 4.85 10^3/uL (1.8-7.7); Neutrophils % 47.2 %; Nucleated Red Blood Cells % 0 %; Platelet Count 119 10^3/cmm (157-399); Red Blood Count 4.17 10^6/uL (3.85-5.65); Red Cell Distribution Width 15.9 % (12.1-15.1); White Blood Count 10.29 10^3/uL (3.29-11.43)
[2023-07-10 05:54] LABS: INR 1.54 (0.8-1.2)
[2023-07-10 06:01] LABS: Alanine Aminotransferase 8 U/L (0-41); Albumin Level 3.9 g/dL (3.5-5.2); Alkaline Phosphatase 69 U/L (40-130); Aspartate Amino Transferase 9 U/L (0-40); C Reactive Protein 36.9 mg/L (0.0-4.9); Calcium 8.1 mg/dL (8.5-10.5); Carbon Dioxide 31 mmol/L (22-29); Chloride 98 mmol/L (98-107); Globulin 1.5 g/dL (1.3-4.6); Glucose 194 mg/dL (65-115); Magnesium 2.4 mg/dL (1.7-2.3); Osmolality Calculated 336 mOsm/kg (285-295); Phosphorus 3.6 mg/dL (2.5-4.5); Sodium 145 mmol/L (136-145); Total Bilirubin 0.8 mg/dL (0.15-1.2); Total Protein 5.4 g/dL (6.6-8.7)
[2023-07-10] MEDS: aztreonam 1,000 MG in sodium chloride 0.9% (plus) 50 ML 100 MG IV ×2 (06:01→17:56)
[2023-07-10 06:04] LABS: Blood Urea Nitrogen 99 mg/dL (8-23)
[2023-07-10 06:12] LABS: Procalcitonin 1.29 ng/mL (0-0.5); Thyroid Stimulating Hormone 42.32 uIU/mL (0.27-4.20)
[2023-07-10 06:26] LABS: Creatine Phosphokinase 24 U/L (39-308)
[2023-07-10 06:33] LABS: NT Pro B Type Natriuretic Pept 34891 pg/mL (0-125)
[2023-07-10 07:40] LABS: Vancomycin Trough 29.1 ug/mL (10-15)
[2023-07-10 07:52] LABS: Glucose Point of Care 172 mg/dL (70-110)
--- NOTE | 2023-07-10 08:09 | SC_ITS ---
WS: [id number] C-arm fluoroscopy for dialysis catheter placement, 07/10/2023 Clinical Data: intraoperative Comparison: None. Findings: The dialysis catheter has been placed into the right internal jugular vein and ends in the mid superi or vena cava. Impression: Placement of right-sided dialysis catheter.
--- NOTE | 2023-07-10 08:14 | P.PN_ITS ---
Vitals/I&O/Wt Last Vital Signs Temp 98.6 F 07/10/23 04:30 Pulse 78 07/10/23 06:00 Resp 15 07/10/23 05:00 BP 144/64 07/10/23 06:00 Pulse Ox 96 07/10/23 06:00 O2 Del Method Nasal Cannula 07/10/23 06:00 O2 Flow Rate 3 07/10/23 06:00 FiO2 30 07/10/23 04:00 07/09/23 07/10/23 07/10/23 22:59 06:59 14:59 Intake Total 470 / 630 293 / 923 Output Total 425 / 1425 300 / 1725 Balance 45 / -795 -7 / -802 Weight last 48 hrs Weight 229 lb 9.6 oz Weight 232 lb 8 oz Physical Exam 2 Urinary Catheter Management: Kincaid: Cath Placed During This Visit: yes Reason for Continuing Indwelling Catheter: Accurate Measurement of Urinary Output in Critically Ill Patients Urinary Catheter Date of Insertion: 07/02/23 Urinary Catheter Time of Insertion: 03:30 Data 07/10/23 04:58 07/10/23 04:58 A&P Assessment and plan (1) Contrast-induced nephropathy: (2) CKD (chronic kidney disease): (3) Fluid overload: Plan Permacath placement The risks and benefits of the procedure, including but not limited to, bleeding, infection, infection requiring Mediport removal antibiotic therapy and repeat surgery, damage to surrounding structures, scar, numbness, pain, pneumothorax requiring thoracostomy tube, were explained to the patient. He/She is understanding of the risks and wishes to proceed. Attestations 2 Medical Necessity Statement*: Per primary Coding Level of Care Code Acute Code for g Fwd Diagnoses Contrast-induced nephropathy N14.11; T50.8X5A CKD (chronic kidney disease) N18.9 Fluid overload E87.70
--- NOTE | 2023-07-10 08:38 | P.ANESASSM_ITS ---
Pre-Anesthetic Assessment Height/Weight: Height 1.8 m Weight 104.145 kg Temp Pulse Resp BP Pulse Ox O2 Del Method O2 Flow Rate 98.6 F 80 18 155/62 95 Nasal Cannula 3 07/10/23 04:30 07/10/23 08:36 07/10/23 08:36 07/10/23 08:00 07/10/23 08:36 07/10/23 08:36 07/10/23 08:36 FiO2 30 07/10/23 04:00 Operation Date: 07/10/23 09:30 Proposed Procedures p Dialysis Catheter Insertion(Not Applicable) - Yogesh De La Rosa DO Familial anesthetic complications: none Was Beta Alexey taken within 24 hours: N/A Was Clonidine taken within 24 hours: N/A Social No alcohol and No tobacco Exam alert and clear to auscultation bilaterally Airway Submandibular: within normal limits Cervical ROM: within normal limits Mallampati: Class II Dentition: false Pulmonary Acute resp failure CV/HEM Acquired Immunodeficiency Syndrome, Anemia, Coronary Artery Disease, Congestive Heart Failure, Hypertension, Myocardial Infarction, Murmur and Peripheral Vascular Disease CONCLUSIONS Limited echo to assess the LV function. Mild concentric LVH. Mildly reduced LV systolic function with hypokinesis of mid anterior and anteroseptal wall segments. Estimated LVEF is mildly reduced 45 to 50%. Aortic valve appears significantly thickened with sclerosis and restricted movements of aortic valve leaflets. However any stenosis or regurgitation was not evaluated during the study. Paula Steele MD (Electronically Signed) Final Date: 02 July 2023 Chronic Renal Insufficiency Acute renal failure Neuropsych Anxiety and Depression Anesthetic Plan ASA status: 4 Anesthesia: MAC Medications/Allergies Home Medications Medication Instructions Recorded Confirmed Last Taken Type garlic 1,000 mg capsule 1,000 mg PO BEDTIME 08/31/19 07/01/23 06/30/23 History furosemide 40 mg tablet 40 mg PO QAM 09/25/21 07/01/23 07/01/23 History tramadol 50 mg tablet 50 mg PO BEDTIME 06/14/22 07/01/23 06/30/23 History [place] Drops See Rx Instructions .Route .COMPLEX 02/05/23 07/01/23 07/01/23 History aspirin 81 mg tablet,delayed 81 mg PO BEDTIME 02/05/23 07/01/23 06/30/23 History release hawthorn 500 mg capsule (hawthorn 500 mg PO BID 02/05/23 07/01/23 07/01/23 History tejada) insulin detemir U-100 100 unit/mL 36 unit SUBCUT QAM 02/05/23 07/01/23 06/30/23 History (3 mL) subcutaneous pen (Levemir FlexPen) insulin regular human 100 unit/mL See Rx Instructions .Route .COMPLEX 02/05/23 07/01/23 06/30/23 History injection solution (Novolin R Regular U-100 Insulin) magnesium oxide 400 mg PO QPM 02/05/23 07/01/23 06/30/23 History nitroglycerin 0.4 mg sublingual 0.4 mg sublingual Q5M PRN Chest 02/05/23 07/01/23 Unknown History tablet (Nitrostat) Pain resveratrol 100 mg capsule 100 mg PO BID 02/05/23 07/01/23 07/01/23 History thyroid (pork) 60 mg tablet 60 mg PO QAM 02/05/23 07/01/23 1 Week Ago History ([place] Thyroid) ~01/29/23 [place] to Right Lower Extremity #1 ea 03/24/23 07/01/23 Unknown Rx Cam Boot to the right #1 ea 03/26/23 07/01/23 Unknown Rx Vitamin B Complex Liquid See Rx Instructions .Route .COMPLEX 04/16/23 07/01/23 07/01/23 History mirtazapine 15 mg tablet (Remeron) 15 mg PO DAILY #30 tabs 06/20/23 07/01/23 07/01/23 Rx Allergies Allergy/AdvReac Type Severity Reaction Status Date / Time Penicillins Allergy Severe Throat Verified 07/01/23 15:43 swells amiodarone Allergy Unknown Verified 07/05/23 05:55 atorvastatin Allergy ADR-Muscle Verified 07/06/23 03:25 Pain azithromycin Allergy ADR/ALGY-Pa Verified 07/01/23 15:43 lpitations ciprofloxacin Allergy hallucinations Verified 07/01/23 15:43 and burning sensation in legs simvastatin Allergy ADR-Muscle Verified 07/06/23 03:12 Pain Cordarone Allergy Unknown Confusion Uncoded 07/01/23 14:55 Current Medications Generic Name Dose Route Start Last Admin Trade Name Freq PRN Reason Stop Dose Admin Acetaminophen 500 mg 07/01/23 19:25 07/09/23 22:07 Acetaminophen 500 Mg Tablet PO 500 mg Q4H PRN Administration fever Apixaban 5 mg 07/05/23 21:00 07/08/23 10:32 Apixaban 5 Mg Tablet PO 5 mg BID@0900,2100 [facility] Administration Aspirin 81 mg 07/02/23 14:40 07/09/23 21:06 Aspirin 81 Mg Ec Tablet PO 81 mg BEDTIME SAHARA Administration Dextrose 500 mls @ 0 mls/hr 07/01/23 19:25 07/08/23 02:58 D5w IV Infused ONCE PRN Infusion Adult Acute Hypoglycemia Prot Protocol Per Protocol Aztreonam 1,000 mg/ Sodium 50 mls @ 100 mls/hr 07/05/23 18:00 07/10/23 06:27 Chloride IV Infused Q12H [facility] Infusion Protocol Vancomycin/PEG/NADA/Lysine/Water 1,500 mg in 300 mls @ 200 mls/hr 07/05/23 19:30 07/10/23 07:41 Vancocin IV Not Given Q36H [facility] Insulin Human Lispro 0 unit 07/07/23 21:15 07/10/23 08:18 Insulin Lispro 100 Unit/1 Ml SUBCUT Not Given WM&BEDTIME [facility] Protocol Lanolin 1 applic 07/05/23 20:51 07/05/23 21:02 Lanolin Oint 7 Gm TOPICAL 1 applic PRN PRN Administration DRYNESS Metoprolol Tartrate 25 mg 07/07/23 09:00 07/09/23 21:06 Metoprolol Tartrate 25 Mg Tablet PO 25 mg BID@0900,2100 [facility] Administration Ondansetron HCl 4 mg 07/01/23 19:25 07/05/23 08:46 Ondansetron 2 Mg/Ml Sdv 2 Ml IVP 4 mg Q6H PRN Administration NAUSEA AND VOMITING Thiamine Mononitrate 100 mg 07/02/23 14:40 07/09/23 08:54 Thiamine 100 Mg Tablet PO 100 mg DAILY SAHARA Administration Thyroid 60 mg 07/05/23 06:00 07/10/23 07:40 Thyroid 60 Mg Tablet PO Not Given QAM [facility] Anesthesia Medical History SVT (supraventricular tachycardia) Gangrenous toe CKD (chronic kidney disease) Systolic heart failure Pleural effusion, left Non-healing ulcer Ischemic cardiomyopathy Diabetic ulcer of right foot Atherosclerosis of coronary artery Kidney stone Amputation toe Diabetes mellitus with peripheral vascular disease Diabetic neuropathy HTN (hypertension) Diabetes Surgical History H/O chest tube placement S/P cholecystectomy S/P tonsillectomy S/P cataract extraction Family History Father Cancer LUNG Mother CAD (coronary artery disease) Diabetes CHF (congestive heart failure) Myocardial infarction Social History Smoking and tobacco/nicotine status: never used tobacco/nicotine Alcohol intake: never Substance/Drug Use: never Household members: spouse Marital status: Current occupational status: retired Data Anesthesia 07/10/23 04:58 07/10/23 04:58 Short CBC 07/09/23 07/10/23 Range/Units 04:52 04:58 WBC 9.66 10.29 (3.29-11.43) 10^3/uL Hgb 11.10 L 10.80 L (11.27-16.99) g/dL Hct 39.0 36.9 L (37-53) % MCV 90.5 88.5 (82-101) fl Plt Count 119 L 119 L (157-399) 10^3/cmm Neut % (Auto) 51.7 47.2 % Neut # (Auto) 4.99 4.85 (1.8-7.7) 10^3/uL BMP 07/08/23 07/09/23 07/10/23 17:25 04:52 04:58 Sodium 145 145 145 Potassium 3.5 3.8 4.0 Chloride 97 L 97 L 98 Carbon Dioxide 34 H 33 H 31 H BUN 87 H* 91 H* 99 H* Creatinine 4.0 H 3.6 H 3.8 H Glucose 86 101 194 H Calcium 7.8 L 7.9 L 8.1 L Cardiac Enzymes 07/09/23 07/10/23 Range/Units 04:52 04:58 Creatine Kinase 25 L 24 L (39-308) U/L NT-Pro-B Natriuret Pep 60597 H 97855 H (0-125) pg/mL Liver Function 07/09/23 07/10/23 Range/Units 04:52 04:58 Total Bilirubin 0.8 0.8 (0.15-1.2) mg/dL AST 12 9 (0-40) U/L ALT 12 8 (0-41) U/L Alkaline Phosphatase 71 69 (40-130) U/L Albumin 4.0 3.9 (3.5-5.2) g/dL Coags 07/09/23 07/10/23 04:52 04:58 PT 21.10 H 19.00 H INR 1.76 H 1.54 H C-Reactive Protein 17.6 H 36.9 H ABG 07/08/23 07/08/23 07/09/23 11:13 12:57 04:55 Specimen Type Arterial Arterial Arterial Sample Site Radial, right Radial, right Radial, right ABG pH 7.18 L* 7.29 L 7.36 ABG pCO2 99.7 H* 77.8 H* 61.7 H* ABG pO2 97.8 121.0 H 78.9 L ABG PO2/FiO2 Ratio 0 0 0 ABG HCO3 37.3 H 37.6 H 34.9 H ABG O2 Saturation 99.3 ABG Base Excess 6.2 H 8.6 H 7.7 H A-a O2 Gradient 4.6 L O2 Delivery Device Nc Bipap Bipap O2 Liters/Min 3.0 FiO2 32.0 35.0 30.0 PEEP 6.0 Cardiac Studies: 2 Echocardiogram 02/05/23 Echocardiogram Limited Views 07/02/23 Echocardiogram Ultrasound 12/20/20 Sestamibi Stress Test (Cardiology) 07/06
--- NOTE | 2023-07-10 08:47 | PC.OT ---
HOLD OT TREATMENT TODAY DUE TO PERMACATH PLACEMENT SCHEDULED.
[2023-07-10] MEDS: lidocaine-epi 2% 20 mL INJ INJECTION (09:08)
[2023-07-10] MEDS: heparin, porcine 1,000 unit/mL INJ 10 mL 10000 UNIT INJECTION (09:08)
--- NOTE | 2023-07-10 09:21 | XR_ITS ---
WS: [id number] Portable AP upright chest, 07/10/2023 Clinical Data: Postop permacath placement Comparison: Portable chest, 07/09/2023 Findings: The right dialysis catheter enters the right internal jugular vein and ends at the cavoatri al junction. The right pleural effusion has increased. There is a small left effusion unchanged. Ther e is opacity in the right lung which may represent atelectasis and/or pneumonia. There is opacity ove r the surface of the left diaphragm which could represent atelectasis and/or pneumonia. The heart siz e remains the same. Aortic arch shows calcification. Monitor leads are on the chest wall. Impression: 1. Placement of right dialysis catheter. 2. Increase in right pleural effusion and no change in left pleural effusion. 3. Patchy opacities in the right lung and left lower lobe.
--- NOTE | 2023-07-10 09:21 | PM.OP ---
Operative Report Date of procedure: July 10, 2023 Pre-op diagnosis: Acute on chronic kidney disease requiring hemodialysis Post-op diagnosis: same Procedure done: Permacath placement Implants: 27 cm PermCath Specimens removed/disposition: None Surgeon: Yogesh De La Rosa DO Anesthesia: MAC Estimated blood loss (mL): 5 Complications: None apparent Brief History: This is a very pleasant 73-year-old male with acute on chronic kidney disease. Nephrology requested permacath placement for hemodialysis access. The risk and benefits were explained and documented. Procedure: Patient was taken to the operating room and placed supine on the operating room table. All bony prominences were padded. He was given IV sedation and monitored throughout the case by the anesthesia personnel. SCDs were placed and turned on. The arms were tucked to the side. Patient received Vancomycin preoperatively IV. The bilateral chest wall was prepped and draped in usual sterile fashion using chlorhexidine base prep. Sterile drapes were applied. We did procedure pause prior to beginning. An 18 gauge needle was placed in the right internal jugular vein under ultrasound guidance. Dark, nonpulsatile blood was aspirated. A guidewire was placed through the needle centrally toward the atrial/vena caval junction. Fluoroscopy visualized good placement. The needle was removed and the guidewire was clipped to the drape with a hemostat. Further local anesthetic was infiltrated in the soft tissues of the right chest wall and a #15 blade was used to make a vertical skin incision. A #15 blade was used to make a small skin delphine around the guidewire insertion area. The permacath tubing was tunneled through the subcutaneous tissues up to the needle insertion location. Serial dilators were used to serially dilate over the guidewire . A dilator with a peel-away sheath was placed over the guidewire and placed centrally. The guidewire was removed as well as the dilator and the permacath was fed into the split sheath. The split sheath was removed. Both ports were aspirated to reveal dark blood and were flushed with saline only as the patient has a heparin allergy. final fluoroscopy visualization showed no kink in the catheter and the tip of the permacath tubing near the atrial/vena caval junction. Both skin incisions were thoroughly irrigated and suctioned dry. Meticulous hemostasis noted. The internal jugular access site was closed with 4-0 Vicryl in a subcuticular fashion. The skin overlying the permacath was closed in a similar manner. The permacath was then sutured into place using 2-0 nylon in a simple interrupted fashion. skin glue was applied as a topical dressing. This was allowed to dry. Patient was awakened from anesthesia and transferred via her cart to the recovery room in stable condition. All needle, sponge, and instrument counts were correct per the operating personnel x2 counts.
--- NOTE | 2023-07-10 09:33 | PC.NURSE ---
Report given to REESE Gonzalez ICU
--- NOTE | 2023-07-10 09:58 | P.PN_ITS ---
Subjective 2 Subjective: getting tunnelled catheter placed Medications: Reviewed: Yes Vitals/I&O/Wt Last Vital Signs Temp 98.6 F 07/10/23 04:30 Pulse 80 07/10/23 08:36 Resp 18 07/10/23 08:36 BP 155/62 07/10/23 08:00 Pulse Ox 95 07/10/23 08:36 O2 Del Method Nasal Cannula 07/10/23 08:36 O2 Flow Rate 3 07/10/23 08:36 FiO2 30 07/10/23 04:00 07/09/23 07/10/23 07/10/23 22:59 06:59 14:59 Intake Total 470 / 630 293 / 923 0 / 0 Output Total 425 / 1425 300 / 1725 Balance 45 / -795 -7 / -802 0 / 0 Weight last 48 hrs Weight 104.145 kg Weight 105.46 kg Physical Exam 2 Narrative: Awake, mild distress + edema Urinary Catheter Management: Kincaid: Cath Placed During This Visit: yes Reason for Continuing Indwelling Catheter: Accurate Measurement of Urinary Output in Critically Ill Patients Urinary Catheter Date of Insertion: 07/02/23 Urinary Catheter Time of Insertion: 03:30 Data 07/10/23 04:58 07/10/23 04:58 A&P Assessment and plan (1) Acute kidney injury superimposed on CKD: Plan 1. Acute on chronic kidney disease stage III: Baseline creatinine is in the mid 1 range, had prior SALLY requiring temporary hemodialysis due to contrast nephropathy -Patient presented with SALLY with a creatinine of 3.5 on presentation likely prerenal/ATN. Nonoliguric. no improvement in renal function - has volume overload , rising BUN , and low UOP ,, - plan to inititate HD for volume management , HD #1 today 2. Hyperkalemia: Medical maximiliano gemisis, low K diet, improved 3. Hypernatremia ,improving 4. History of CHF, with low ejection fraction 35 to 45%, 5. History of peripheral vascular disease and right TMA in the past 6. Metabolic alkalosis - contraction alkalosis ,stable Patient evaluated using audiovisual cart. Time spent 20minutes. Attestations 2 Medical Necessity Statement*: per medicine team Coding Level of Care Code Acute Code for Chg Fwd Diagnoses Acute kidney injury superimposed on CKD N17.9; N18.9
--- NOTE | 2023-07-10 10:09 | XR_ITS ---
WS: [id number] Portable AP upright chest, 07/10/2023, 1014 hours Clinical Data: Thoravent Comparison: Portable chest, 07/10/2023, 0942 hours Findings: There is a small chest tube which has been inserted and the pleural effusion is greatly red uced. No pneumothorax is seen. The remainder of the chest shows no change. Impression: Decrease in right pleural effusion due to insertion of small right chest tube.
--- NOTE | 2023-07-10 10:22 | PC.NURSE ---
Addendum entered by Lisa Quiroga RN 07/10/23 10:29: Time out performed at 0951 Original Note: Event Note: Patient arrived back to ICU from OR for permacath dialysis placement. Upon arrival patient's oxygen saturation level was lower than normal, upon presentation with Dr. De La Roas beside chest xray ordered, chest xray showed pneumothorax on right side, thoravent placed via emergent need, time out performed with this nurse, Dr. De La Rosa, and Tracy LEIGH. Consent obtained see chart. Family updated.
[2023-07-10 10:33] LABS: ABG PCO2 85.4 mmHg (35-45); ABG PH Result 7.24 (7.35-7.45); Arterial Blood Gas Hematocrit 35.4 % (42-52); Base Excess ABG 6.4 mmol/L (-2.0-2.0); Blood Gas Allen Test Pos; Blood Gas Operator Identificat GD; Blood Gas Sample Site Radial, right; Blood Gas Sample Type Arterial; Carboxyhemoglobin 1.7 %THgb (0.4-20.1); HCO3 ABG 36.4 mmol/L (22-26); HGB O2 Sat 96.7 % (95-100); Ionized Calcium Level - ABG 1.1 mmol/L (1.1-1.4); Methemoglobin 0.9 % (0.4-1.5); Oxygen Device SIMPLE MASK; Oxygen Saturation ABG 99.3; Potassium Level - ABG 3.8 mmol/L (3.5-5.0); Total Hemoglobin 11.5 g/dL (14-18)
[2023-07-10] MEDS: ondansetron 2 mg/ML SDV 2 mL 4 MG IVP (10:42)
[2023-07-10 11:17] LABS: Glucose Point of Care 176 mg/dL (70-110)
--- NOTE | 2023-07-10 12:10 | XR_ITS ---
WS: [id number] Portable AP upright chest, 07/10/2023, 1220 hours Clinical Data: CP SOB Comparison: Portable chest, 07/10/2023 1014 hours Findings: The right chest tube remains in good position. There is reexpansion of the right lung. The right dialysis catheter remains in good position. There is patchy opacity over the surface of the lef t diaphragm which may represent atelectasis or pneumonia. There is minimal opacity on the lateral asp ect of the right diaphragm with a small right effusion. The heart remains enlarged. There are monitor leads on the chest wall. There is contrast material in the colon. Impression: 1. Satisfactory position of small right chest tube with complete reexpansion of right lung. 2. No change in heart size or left and right lung opacities
--- NOTE | 2023-07-10 12:15 | ECG_ITS ---
[facility] Test Date: 2023-07-10 Pat Name: Usman Alvarez Department: Room: ICU09 Gender: Male [id number] Architect: : [id number] Requested By: Vitaly Leyva Order Number: [id number] Diandra MD: Domenico Munguia M.D. Measurements Intervals [place] Rate: 78 P: 34 FL: 172 QRS: 11 QRSD: 110 T: 32 QT: 369 QTc: 422 Interpretive Statements SINUS RHYTHM POSSIBLE LEFT ATRIAL ENLARGEMENT [-0.1mV P-WAVE IN V1/V2] INCOMPLETE RIGHT BUNDLE BRANCH BLOCK [90+ ms QRS DURATION, TERMINAL R IN V1/V2, 40+ ms S IN I/aVL/V4/V5/V6] NONSPECIFIC T-WAVE ABNORMALITY Compared to ECG 07/05/2023 06:06:17 Incomplete right bundle-branch block now present Sinus tachycardia no longer present T-wave abnormality still present Electronically Signed On 07-10-2023 14:38:17 AUDIO INSTALLER by Domenico Munguia M.D. [email or web address]
--- NOTE | 2023-07-10 12:39 | P.PCN_ITS ---
Acute Procedures Chest Tube: Chest Tube 1: Progress: Preoperative diagnosis: Right-sided pneumothorax Postoperative diagnosis: Same Procedure: Thoravent placement Surgeon: Dr. Yogesh De La Rosa DO Estimated blood loss: 1 cc Complications: None apparent Brief history: This is a 73-year-old gentleman who just came back from a right- sided permacath placement. Postoperative chest x-ray showed pneumothorax. Thora vent placement was indicated. The risk and benefits were explained and documented. Description of procedure: The right chest was inspected prepped and draped in usual sterile fashion. A timeout was performed. All present were in agreement. 2% lidocaine with epinephrine was used to anesthetize the skin overlying the second intercostal space in the midclavicular line. An 11 blade scalpel was used to make a 5 mm incision. Thora vent was then placed through this incision and into the chest. The obturator was removed and the Thora vent was sewn into place with 2-0 silk in an interrupted fashion. The Thora vent was then hooked up to wall suction and approximately 1 L of serous fluid was withdrawn immediately. There was initially an air leak and then none. Patient tolerated procedure well.
[2023-07-10] MEDS: heparin, porcine 1,000 unit/mL INJ 10 mL 10000 UNIT INTRACATH (14:11)
[2023-07-10 14:29] LABS: ABG PH Result 7.29 (7.35-7.45); Arterial Blood Gas Hematocrit 34.3 % (42-52); Base Excess ABG 4.9 mmol/L (-2.0-2.0); Blood Gas Allen Test Pos; Blood Gas Operator Identificat GD; Blood Gas Sample Site Radial, right; Blood Gas Sample Type Arterial; HCO3 ABG 33.3 mmol/L (22-26); Oxygen Device NC; PO2 FiO2 Ratio Arterial Blood 0
[2023-07-10 14:30] LABS: ABG PCO2 69.9 mmHg (35-45)
--- NOTE | 2023-07-10 15:36 | ANE.PACU2 ---
Inpatient post-anesthesia follow up: Airway intact: Yes Vital signs: Temperature 98.6 F Pulse Rate 78 Respiratory Rate 12 Blood Pressure 141/76 Pulse Oximetry 99 Oxygen Delivery Me thod Nasal Cannula Oxygen Flow Rate 2 Fraction of Inspir ed Oxygen 30 Hydration adequate: Yes Nausea and vomiting: No Pain level: 2 Mental status: Baseline Additional Comments: Postop PTX
--- NOTE | 2023-07-10 15:47 | PC.NURSE ---
1,400 removed with dialysis
--- NOTE | 2023-07-10 17:24 | P.PN_ITS ---
Subjective 2 Subjective: ? Patient was examined multiple times throughout the morning, ? Reason morning he was seen just before he was going to have his dialysis catheter placed, alert awake, following all commands, denies any shortness of breath, uneventful overnight, ? Seen after dialysis catheter placement, patient had a pneumothorax, status post Thora vent placement, ? He was seen thereafter, he is alert awake, can follow commands, does report intermittent shortness of breath and chest pain repeat chest x-ray shows pneumothorax has resolved, ? He did have about 1200 mL from his Thora vent ? He is receiving dialysis, did complain of intermittent chest pain, and shortness of breath, repeat chest x-ray no reexpansion of pneumothorax pneumothorax cannot be seen on chest x-ray, EKG no acute ST-T wave changes, ? Seen there after dialysis he is alert awake and follow commands, his pCO2 has gone down 69.9, will continue to monitor, will try to avoid BiPAP throughout the night, if he does become confused increasingly short of breath we will place back on BiPAP on suction Thora vent, ? Currently Thora vent on suction, he has no complaints of chest pain, no shortness of breath, we will continue to monitor likely to be clamped tomorrow morning, ? Overnight, if patient does become short of breath, can put him on BiPAP, monitor pCO2, while Thora vent is on suction Vitals/I&O/Wt Last Vital Signs Temp 97.9 F 07/10/23 15:52 Pulse 78 07/10/23 15:52 Resp 16 07/10/23 15:52 BP 149/65 07/10/23 15:52 Pulse Ox 98 07/10/23 15:30 O2 Del Method Nasal Cannula 07/10/23 15:30 O2 Flow Rate 1 07/10/23 15:30 FiO2 30 07/10/23 04:00 07/10/23 07/10/23 07/10/23 06:59 14:59 22:59 Intake Total 293 / 923 620 / 650 Output Total 300 / 1725 1200 / 1200 1965 / 3165 Balance -7 / -802 -1170 / -1170 -1345 / -2515 Weight last 48 hrs Weight 93.259 kg Weight 104.145 kg Weight 105.46 kg Physical Exam 2 Const: COMMON NORMALS: no acute distress and patient oriented x3 Chest: OTHER: Right chest Thora vent in place, right chest permacath in place Resp: COMMON NORMALS: normal respiratory effort, No retractions, No use of accessory muscles and clear to auscultation bilaterally AUSCULTATION: clear to auscultation bilaterally Cardio: COMMON NORMALS: regular rate, regular rhythm, S1 normal heart sound present and S2 normal heart sound present RATE: regular rate RHYTHM: r egular rhythm HEART SOUNDS: S1 normal heart sound present and S2 normal heart sound present GI: COMMON NORMALS: Normal to inspection, nondistended, normoactive bowel sounds present and non-tender Neuro: COMMON NORMALS: patient oriented x3 Psych: COMMON NORMALS: mental status grossly normal Urinary Catheter Management: Kincaid: Cath Placed During This Visit: yes Reason for Continuing Indwelling Catheter: Accurate Measurement of Urinary Output in Critically Ill Patients Urinary Catheter Date of Insertion: 07/02/23 Urinary Catheter Time of Insertion: 03:30 Data 07/10/23 04:58 07/10/23 04:58 A&P Assessment and plan (1) Acute hyperkalemia: (2) Pleural effusion: (3) S/P transmetatarsal amputation of foot: Qualifiers: Laterality: right Qualified Code(s): Z89.431 - Acquired absence of right foot (4) Acute kidney injury superimposed on CKD: (5) CKD (chronic kidney disease): (6) Pulmonary infiltrate present on computed tomography: (7) Non-pressure chronic ulcer of other part of right foot with necrosis of bone: (8) Diabetic neuropathy: (9) Ischemic cardiomyopathy: (10) Systolic heart failure: (11) Elevated hemidiaphragm: (12) Atelectasis, left: (13) Status post amputation of toe of right foot: (14) Atrial flutter: Qualifiers: Atrial flutter type: typical Qualified Code(s): I48.3 - Typical atrial flutter (15) Acute respiratory failure with hypoxia and hypercapnia: (16) NSTEMI (non-ST elevated myocardial infarction): (17) Systolic CHF, acute: (18) Pulmonary edema: (19) Fluid overload: (20) Hyperkalemia: (21) Hypothyroidism: (22) SVT (supraventricular tachycardia): (23) Atrial fibrillation with RVR: (24) PNA (pneumonia): (25) Aspiration into airway: (26) Aspiration pneumonitis: (27) Physical deconditioning: (28) Protein calorie malnutrition: (29) Pneumothorax on right: Plan Plan Pneumothorax, -Repeat chest x-ray does not show any radiographic evidence of recurrence or pneumothorax, ? Currently Thora vent to suction, ? Will continue to monitor over 24 hours consider placing to waterseal, ? Will repeat chest x-ray tomorrow morning Right pleural effusion, ? Thora vent in place, ? 1200 mL removed's overall recommend ?monitor for reexpansion injury Acute encephalopathy, secondary to hypercarbia, uremia, resolving ? Improving this morning, back to baseline alert oriented x3 ? Likely secondary to fluid overload, pulmonary edema ? Monitor mentation closely, ? Neurochecks, aspiration precautions, Acute renal failure, ? With uremia, ? With uremic encephalopathy, ? Monitor urine output, monitor creatinine, ?Status post dialysis catheter replacement, status post dialysis Acute hypoxic hypercarbic respiratory failure, ? Low threshold for intubation, continue ICU monitoring ? Secondary to pulm edema, fluid overload, systolic CHF, pneumonia, aspiration pneumonitis, aspiration into airway ?currently hypercarbic respiratory failure -Holding off on BiPAP, as Thora vent in place ? However if respiratory status worsens overnight, can consider putting back on BiPAP with Thora vent on suction ? Plan, ? Monitor intensive care unit, ? Monitor respiratory status, ? Status post dialysisi ? Monitor creatinine monitor urine output, monitor potassium ? Full code, ? scd for DVT prophylaxis Pneumonia Chest x-ray shows bibasilar atelectasis and/or pneumonitis Highly concerning for aspiration event given his altered mental status, hypotension episode, A-fib with RVR, his choking spells? Continue clear liquids for now Speech therapy eval ? Modified barium swallow and barium swallow today vancomycin on hold due to elevated vancomycin trough at 29.1 aztreonam Aspiration pneumonia, aspiration pneumonitis, aspiration airway, ? Aspiration precautions, small volume feeds, for now clear liquids, ? Modified barium and barium swallow today Acute hypotension, resolved ? Likely secondary to vasovagal event, A-fib with RVR, ? currently off leophed ? Currently midline in place, A-fib with RVR, resolved ? Currently in normal sinus rhythm, resume low-dose metoprolol if blood pressure heart rate will allow, ? It sensitive to amiodarone, had hypotension will avoid for now -eliquis ? Metoprolol 25 twice daily ? Eliquis for DVT prophylaxis Systolic CHF, ? Repeat cardiac echo, CONCLUSIONS Limited echo to assess the LV function. Mild concentric LVH. Mildly reduced LV systolic function with hypokinesis of mid anterior and anteroseptal wall segments. Estimated LVEF is mildly reduced 45 to 50%. Aortic valve appears significantly thickened with sclerosis and restricted movements of aortic valve leaflets. However any stenosis or regurgitation was not evaluated during the study. ? As above, NSTEMI, History of CAD, stenting x1, ? Type I versus type II NSTEMI ? Acute respiratory failure, ? Plan, ? Serial EKGs, serial troponins, telemetry monitoring, ? Cardiac echo as above, does show mildly reduced ejection fraction ? Aspirin, statin, ? No chest pain complaints, will continue to monitor, consider stress testing either inpatient versus outpatient depending on clinical progress Acute on chronic kidney disease Creatinine 3.2 Nephro consulted Required temporary dialysis for contrast-induced nephropathy in the past Hyperkalemia, improving ? With underlying CKD, ? Several doses of insulin, D50, Kayexalate have been given, with Lasix as above ? Currently on scheduled Kayexalate Systolic CHF Family not interested in a LifeVest or AICD However EF has improved from 35% to 45% now Patient has bilateral lower extremity swelling Intermittent tachycardia patient receives metoprolol at home Peripheral vascular disease cardiology recommended medical management SVT, status post adenosine, on 07/04/2023 Physical deconditioning, protein calorie malnutrition, consult dietary, PT OT Wound care: Follows up with Dr. Baird once a month Consistent carb diet Sliding scale DVT prophylaxis, Eliquis currently on hold, resume tomorrow morning ? Patient was examined multiple times throughout the morning, ? Reason morning he was seen just before he was going to have his dialysis catheter placed, alert awake, following all commands, denies any shortness of breath, uneventful overnight, ? Seen after dialysis catheter placement, patient had a pneumothorax, status post Thora vent placement, ? He was seen thereafter, he is alert awake, can follow commands, does report intermittent shortness of breath and chest pain repeat chest x-ray shows pneumothorax has resolved, ? He did have about 1200 mL from his Thora vent ? He is receiving dialysis, did complain of intermittent chest pain, and shortness of breath, repeat chest x-ray no reexpansion of pneumothorax pneumothorax cannot be seen on chest x-ray, EKG no acute ST-T wave changes, ? Seen there after dialysis he is alert awake and follow commands, his pCO2 has gone down 69.9, will continue to monitor, will try to avoid BiPAP throughout the night, if he does become confused increasingly short of breath we will place back on BiPAP on suction Thora vent, ? Currently Thora vent on suction, he has no complaints of chest pain, no shortness of breath, we will continue to monitor likely to be clamped tomorrow morning, ? Overnight, if patient does become short of breath, can put him on BiPAP, monitor pCO2, while Thora vent is on suction Attestations 2 Medical Necessity Statement*: Patient requires hospitalization for pneumothorax, fluid overload, hypercarbia, pneumonia, fluid overload, end-stage renal disease, Coding Level of Care Code Critical Care >/= 30 minutes Critical care time (in minutes): 45 The high probability of a clinically significant, sudden or life threatening deterioration, as referenced in this documentation, required my full and direct attention, intervention and personal management. The critical care time shown is in addition to time spent performing any reported separately billable procedures and includes the following: [x] Data and vital sign review and interpretation [x ] Patient assessment, examination and intervention [x] Medication orders and management [x] Patient/Family updates as able [x] Care Coordination and Documentation. Diagnoses Acute hyperkalemia E87.5 Pleural effusion J90 Status post amputation of right foot through metatarsal bone Z89.431 Laterality: right Acute kidney injury superimposed on CKD N17.9; N18.9 CKD (chronic kidney disease) N18.9 Pulmonary infiltrate present on computed tomography R91.8 Non-pressure chronic ulcer of other part of right foot with necrosis of bone L97.514 Diabetic neuropathy E11.40 Ischemic cardiomyopathy I25.5 Systolic heart failure I50.20 Elevated hemidiaphragm J98.6 Atelectasis, left J98.11 Status post amputation of toe of right foot Z89.421 Typical atrial flutter I48.3 Atrial flutter type: typical Acute respiratory failure with hypoxia and hypercapnia J96.01; J96.02 NSTEMI (non-ST elevated myocardial infarction) I21.4 Systolic CHF, acute I50.21 Pulmonary edema J81.1 Fluid overload E87.70 Hyperkalemia E87.5 Hypothyroidism E03.9 SVT (supraventricular tachycardia) I47.1 Atrial fibrillation with RVR I48.91 PNA (pneumonia) J18.9 Aspiration into airway T17.908A Aspiration pneumonitis J69.0 Physical deconditioning R53.81 Protein calorie malnutrition E46 Pneumothorax on right J93.9
[2023-07-10 17:30] LABS: Glucose Point of Care 232 mg/dL (70-110)
[2023-07-10] MEDS: insulin lispro 100 unit/1 mL SUBCUT ×2 (17:56→20:08)
[2023-07-10] MEDS: acetaminophen 500 mg Tablet PO (17:57)
--- NOTE | 2023-07-10 19:34 | PC.NURSE ---
Oxycodone: Pt reporting 6/10 pain in his shoulder and hips. requesting no morphine. Dr. Frances aware. New order for 5mg Oxycodone IR NOW ONCE.
[2023-07-10] MEDS: polyethylene glycol 3350 Pkt 17 gm PO (19:51)
[2023-07-10] MEDS: oxyCODONE 5 mg IR Tab/Cap PO (19:52)
[2023-07-10 19:54] LABS: Glucose Point of Care 289 mg/dL (70-110)
[2023-07-10] MEDS: aspirin 81 mg EC Tablet PO (20:02)
[2023-07-10] MEDS: metoprolol tartrate 25 mg Tablet PO (20:02)
[2023-07-11] VITALS (59 sets, daily range): BP systolic 89–153; BP diastolic 46–93; PULSE 67–84; RESP 0–34; TEMP 36.6–36.9; O2SAT 84–100
[2023-07-11] MEDS: acetaminophen 500 mg Tablet PO (02:12)
[2023-07-11 05:00] LABS: ABG PH Result 7.23 (7.35-7.45); Arterial Blood Gas Hematocrit 34.1 % (42-52); Base Excess ABG 4.8 mmol/L (-2.0-2.0); Blood Gas Allen Test Pos; Blood Gas Operator Identificat JB; Blood Gas Sample Site Radial, right; Blood Gas Sample Type Arterial; HCO3 ABG 34.5 mmol/L (22-26); Oxygen Device NC
[2023-07-11 05:01] LABS: ABG PCO2 82.5 mmHg (35-45)
[2023-07-11 05:26] LABS: Basophils % 0.4 %; Eosinophils # 0.2 10^3/uL (0.0-0.8); Hematocrit 38.6 % (37-53); Lymphocytes # 4.1 10^3/uL (0.8-4.8); Lymphocytes % 43.9 %; Mean Corpuscular HGB Conc 28.5 g/dL (30-55); Mean Corpuscular Hemoglobin 26.3 pg (27-33); Mean Corpuscular Volume 92.3 fl (82-101); Mean Platelet Volume 10.3 fL (7.4-10.4); Monocytes # 0.6 10^3/uL (0.2-0.9); Monocytes % 6.2 %; Neutrophils # 4.43 10^3/uL (1.8-7.7); Neutrophils % 47.2 %; Nucleated Red Blood Cells % 0 %; Platelet Count 128 10^3/cmm (157-399); Red Blood Count 4.18 10^6/uL (3.85-5.65); Red Cell Distribution Width 15.9 % (12.1-15.1)
--- NOTE | 2023-07-11 05:29 | PC.NURSE ---
BIPAP: Critically high CO2. pt is lethargic. RT adjusted BIPAP settings and pt was placed on BIPAP. Dr. Frances made aware. Dr. De La Rosa made aware @1366. No new orders, continue w/ chest x-ray in the morning.
[2023-07-11 05:38] LABS: INR 1.36 (0.8-1.2)
[2023-07-11 05:48] LABS: Alanine Aminotransferase 9 U/L (0-41); Alkaline Phosphatase 73 U/L (40-130); Anion Gap 12.8 (5-19); Aspartate Amino Transferase 11 U/L (0-40); Blood Urea Nitrogen 69 mg/dL (8-23); C Reactive Protein 35.2 mg/L (0.0-4.9); Calcium 8.2 mg/dL (8.5-10.5); Carbon Dioxide 35 mmol/L (22-29); Chloride 99 mmol/L (98-107); Globulin 1.7 g/dL (1.3-4.6); Glucose 155 mg/dL (65-115); Magnesium 2.3 mg/dL (1.7-2.3); Osmolality Calculated 317 mOsm/kg (285-295); Phosphorus 4.4 mg/dL (2.5-4.5); Potassium 4.8 mmol/L (3.5-5.1); Sodium 142 mmol/L (136-145); Total Bilirubin 0.6 mg/dL (0.15-1.2); Total Protein 5.7 g/dL (6.6-8.7)
[2023-07-11] MEDS: aztreonam 1,000 MG in sodium chloride 0.9% (plus) 50 ML 100 MG IV ×2 (05:48→17:20)
[2023-07-11 05:50] LABS: Lactate (Lactic Acid level) 0.7 mmol/L (0.5-2.2)
[2023-07-11 05:55] LABS: Procalcitonin 1.11 ng/mL (0-0.5)
[2023-07-11 06:08] LABS: ABG PH Result 7.27 (7.35-7.45); Arterial Blood Gas Hematocrit 33.6 % (42-52); Base Excess ABG 4.7 mmol/L (-2.0-2.0); Blood Gas Allen Test Pos; Blood Gas Operator Identificat JB; Blood Gas Sample Site Radial, right; Blood Gas Sample Type Arterial; HCO3 ABG 33.5 mmol/L (22-26); Oxygen Device BIPAP; PO2 ABG 87.4 mmHg (80.0-100.0); PO2 FiO2 Ratio Arterial Blood 0
[2023-07-11 06:08] LABS: Creatine Phosphokinase 28 U/L (39-308)
[2023-07-11 06:09] LABS: ABG PCO2 73.4 mmHg (35-45)
[2023-07-11 06:16] LABS: NT Pro B Type Natriuretic Pept 29357 pg/mL (0-125)
[2023-07-11] MEDS: thyroid 60 mg Tablet PO (06:17)
--- NOTE | 2023-07-11 07:00 | XRR_ITS ---
PROCEDURE INFORMATION: Exam: XR Chest Exam date and time: 07/11/2023 5:50 AM Age: 73 years old Clinical indication: Shortness of breath; Prior surgery; Surgery date: 3-7 days post-operative; Surgery type: Thoravent, dialysis cath; Additional info: SOB TECHNIQUE: Imaging protocol: Radiologic exam of the chest. Views: 1 view. COMPARISON: CR XR chest 1V portable [id number] 07/10/2023 1:19 PM FINDINGS: Tubes, catheters and devices: Short right thoracostomy tube and multi lumen right catheter unchanged. Lungs: Bibasilar atelectasis, left greater than right unchanged. Pleural spaces: Only a trace right pleural effusion is present. Heart/Mediastinum: See Vasculature finding. Vasculature: Mild cardiomegaly and uncoiling of the thoracic aorta. Bones/joints: Unremarkable. Gastrointestinal tract: Contrast residue within colon. XR/XR chest 1V portable [id number] IMPRESSION: 1. No acute findings. 2. No significant interval change.
--- NOTE | 2023-07-11 08:25 | XR_ITS ---
WS: [id number] Portable AP upright chest, 07/11/2023, 0842 hours Clinical Data: increase SOB Comparison: Portable chest, 07/11/2023, 0551 hours Findings: The bibasilar opacities have not changed. There is more opacity on the left than the right. The heart is slightly enlarged. No upper lobe pneumonia is seen. There is no pneumothorax. The small right chest tube remains in position. The dialysis catheter is not changed. There are monitor leads on the chest wall. Impression: No change from earlier chest x-ray.
[2023-07-11] MEDS: FUROsemide 40 mg Tablet PO ×2 (08:34→17:35)
[2023-07-11] MEDS: metoprolol tartrate 25 mg Tablet PO ×2 (08:34→20:41)
[2023-07-11] MEDS: thiamine 100 mg Tablet PO (08:34)
[2023-07-11] MEDS: insulin lispro 100 unit/1 mL SUBCUT ×2 (08:41→20:42)
[2023-07-11 08:44] LABS: Glucose Point of Care 154 mg/dL (70-110)
--- NOTE | 2023-07-11 10:00 | PC.SOCIAL ---
IMM Updated Updated pt & his on IMM. No questions voiced. Provided pt a copy. Initialed, dated, & timed copy in chart.
[2023-07-11 11:51] LABS: ABG PH Result 7.29 (7.35-7.45); Arterial Blood Gas Hematocrit 33.3 % (42-52); Blood Gas Allen Test Pos; Blood Gas Operator Identificat GD; Blood Gas Sample Site Radial, right; Blood Gas Sample Type Arterial; Carboxyhemoglobin 1.7 %THgb (0.4-20.1); HCO3 ABG 35.5 mmol/L (22-26); HGB O2 Sat 95.7 % (95-100); Ionized Calcium Level - ABG 1.1 mmol/L (1.1-1.4); Methemoglobin 0.8 % (0.4-1.5); Oxygen Device BIPAP; Oxygen Saturation ABG 98.2; Potassium Level - ABG 4.3 mmol/L (3.5-5.0); Total Hemoglobin 10.9 g/dL (14-18)
[2023-07-11 11:52] LABS: Alveolar-Arterial Oxygen Gradi 0.7 mmHg (5-10); Blood Gas Tidal Volume 0.35; PO2 FiO2 Ratio Arterial Blood 0
[2023-07-11 11:54] LABS: ABG PCO2 73.2 mmHg (35-45)
--- NOTE | 2023-07-11 12:20 | PM.PN ---
Subjective Subjective: Patient seen and examined. He is somewhat somnolent in the ICU bed. No further air leak Vitals/I&O/Wt Last Vital Signs Temp 99.1 F 07/12/23 08:00 Pulse 108 H 07/12/23 12:11 Resp 15 07/12/23 08:33 BP 105/65 07/12/23 10:00 Pulse Ox 95 07/12/23 12:11 O2 Del Method BiPAP 07/12/23 08:33 O2 Flow Rate 24 07/12/23 08:33 FiO2 24 07/12/23 12:11 07/11/23 07/12/23 07/12/23 22:59 06:59 14:59 Intake Total 670 / 730 50 / 780 480 / 480 Output Total 6 / 2066 Balance -1396 / -1336 50 / -1286 480 / 480 Weight last 48 hrs Weight 221 lb Weight 221 lb Weight 205 lb 9.6 oz Physical Exam Narrative: General: No acute distress, somnolent on BiPAP Respiratory: Equal chest rise bilaterally on BiPAP, Thora vent on wall suction without air leak, serous output Urinary Catheter Management: Kincaid: Cath Placed During This Visit: yes Reason for Continuing Indwelling Catheter: Accurate Measurement of Urinary Output in Critically Ill Patients Urinary Catheter Date of Insertion: 07/02/23 Urinary Catheter Time of Insertion: 03:30 Data 07/12/23 04:36 07/12/23 04:36 A&P Assessment and plan (1) Acute kidney injury: (2) Systolic CHF, acute: (3) Fluid overload: (4) Pneumothorax on right: Plan Status post permacath placement Status post right-sided Thoravent placement for Right-sided pneumothorax Continue Pleur-evac to wall suction until off high-pressure ventilation Hemodialysis per nephrology Medical management per hospitalist Attestations Medical Necessity Statement*: Per primary Coding Level of Care Code Acute Code for [facility] Diagnoses Acute kidney injury N17.9 Systolic CHF, acute I50.21 Fluid overload E87.70 Pneumothorax on right J93.9
[2023-07-11 12:28] LABS: Glucose Point of Care 82 mg/dL (70-110)
--- NOTE | 2023-07-11 13:33 | P.PN_ITS ---
Subjective 2 Subjective: - Patient was seen this morning, he does awaken, described drowsy, alert to person, not to place, not to time, at bedside, -thora vent currently to waterseal, on B iPAP, no air leak detected ? Currently on BiPAP, switched chest tube to suction, while on BiPAP, chest x- ray does not show reoccurrence of pneumothorax, ? Discussed with at bedside, currently the issue is that he is hypercarbic, has hypercarbic respiratory failure, will keep on BiPAP for the next few hours, if his pCO2 does not improve he will need a longer course of BiPAP while he is on BiPAP will keep the chest tube to suction, to prevent reoccurrence of the pneumothorax, ? Will have to monitor his pCO2 closely, I need him to blow off the CO2, as it is affecting his mentation, and morbidity mortality associated, he has had hypercarbic respiratory failure here during his hospitalization and typically with appropriate BiPAP therapy he blows off his CO2 I am hoping that we can continue to use BiPAP, however if his respiratory status worsens or imitations worsen then we will have to consider intubation ? Once his hypercarbia resolves, we can consider putting the chest tube to waterseal and likely hopefully remove ? Continue to diurese, Vitals/I&O/Wt Last Vital Signs Temp 98.1 F 07/10/23 23:30 Pulse 67 07/11/23 12:00 Resp 19 H 07/11/23 12:00 BP 125/59 07/11/23 12:00 Pulse Ox 98 07/11/23 12:00 O2 Del Method BiPAP 07/11/23 08:34 O2 Flow Rate 30 07/11/23 08:34 FiO2 24 07/11/23 12:00 07/10/23 07/11/23 07/11/23 22:59 06:59 14:59 Intake Total 1088 / 1118 100 / 1218 60 / 60 Output Total 2375 / 3575 185 / 3760 Balance -1287 / -2457 -85 / -2542 60 / 60 Weight last 48 hrs Weight 93.259 kg Weight 104.145 kg Physical Exam 2 Const: COMMON NORMALS: no acute distress Neck/C-Spine: COMMON NORMALS: no lymphadenopathy Resp: COMMON NORMALS: normal respiratory effort, No retractions and No use of accessory muscles AUSCULTATION: crackles Cardio: COMMON NORMALS: regular rate, regular rhythm, S1 normal heart sound present, S2 normal heart sound present, No gallops present (Cardio), No clicks present (Cardio) and No murmurs present (Cardio) RATE: regular rate R HYTHM: regular rhythm HEART SOUNDS: S1 normal heart sound present and S2 normal heart sound present GI: COMMON NORMALS: Normal to inspection, nondistended, normoactive bowel sounds present and Soft to palpation PALPATION: Yes Soft to palpation Extremity: NARRATIVE EXTREMITY EXAM: 1+ pitting edema Urinary Catheter Management: Kincaid: Cath Placed During This Visit: yes Reason for Continuing Indwelling Catheter: Accurate Measurement of Urinary Output in Critically Ill Patients Urinary Catheter Date of Insertion: 07/02/23 Urinary Catheter Time of Insertion: 03:30 Data 07/11/23 05:04 07/11/23 05:04 A&P Assessment and plan (1) Acute hyperkalemia: (2) Pleural effusion: (3) S/P transmetatarsal amputation of foot: Qualifiers: Laterality: right Qualified Code(s): Z89.431 - Acquired absence of right foot (4) Acute kidney injury superimposed on CKD: (5) CKD (chronic kidney disease): (6) Pulmonary infiltrate present on computed tomography: (7) Non-pressure chronic ulcer of other part of right foot with necrosis of bone: (8) Diabetic neuropathy: (9) Ischemic cardiomyopathy: (10) Systolic heart failure: (11) Elevated hemidiaphragm: (12) Atelectasis, left: (13) Status post amputation of toe of right foot: (14) Atrial flutter: Qualifiers: Atrial flutter type: typical Qualified Code(s): I48.3 - Typical atrial flutter (15) Acute respiratory failure with hypoxia and hypercapnia: (16) NSTEMI (non-ST elevated myocardial infarction): (17) Systolic CHF, acute: (18) Pulmonary edema: (19) Fluid overload: (20) Hyperkalemia: (21) Hypothyroidism: (22) SVT (supraventricular tachycardia): (23) Atrial fibrillation with RVR: (24) PNA (pneumonia): (25) Aspiration into airway: (26) Aspiration pneumonitis: (27) Physical deconditioning: (28) Protein calorie malnutrition: (29) Pneumothorax on right: Plan Plan Pneumothorax, -Repeat chest x-ray does not show any radiographic evidence of recurrence or pneumothorax, ? Currently Thora vent to suction, while he is on BiPAP ? Will continue to monitor over 24 hours consider placing to waterseal, ? Will repeat chest x-ray tomorrow morning Right pleural effusion, ? Thora vent in place, ? 1200 mL removed's overall recommend ?monitor for reexpansion injury, Left pleural effusion will consider thoracocentesis based on clinical progress Acute encephalopathy, secondary to hypercarbia, uremia, resolving ? Currently having hypercarbic encephalopathy, continue bipap, monitor ABG, ? Likely secondary to fluid overload, pulmonary edema ? Monitor mentation closely, ? Neurochecks, aspiration precautions, Acute renal failure, ? With uremia, ? With uremic encephalopathy, ? Monitor urine output, monitor creatinine, ?Status post dialysis catheter replacement, status post dialysis Acute hypoxic hypercarbic respiratory failure, ? Low threshold for intubation, continue ICU monitoring ? Secondary to pulm edema, fluid overload, systolic CHF, pneumonia, aspiration pneumonitis, aspiration into airway ?currently hypercarbic respiratory failure -Holding off on BiPAP, as Thora vent in place ? However if respiratory status worsens overnight, can consider putting back on BiPAP with Thora vent on suction ? Plan, ? Monitor intensive care unit, ? Monitor respiratory status, ? Status post dialysisi ? Monitor creatinine monitor urine output, monitor potassium ? Full code, ? scd for DVT prophylaxis Pneumonia Chest x-ray shows bibasilar atelectasis and/or pneumonitis Highly concerning for aspiration event given his altered mental status, hypotension episode, A-fib with RVR, his choking spells? Continue clear liquids for now Speech therapy eval ? Modified barium swallow and barium swallow today vancomycin on hold due to elevated vancomycin trough at 29.1 aztreonam Aspiration pneumonia, aspiration pneumonitis, aspiration airway, ? Aspiration precautions, small volume feeds, for now clear liquids, ? Modified barium and barium swallow today Acute hypotension, resolved ? Likely secondary to vasovagal event, A-fib with RVR, ? currently off leophed ? Currently midline in place, A-fib with RVR, resolved ? Currently in normal sinus rhythm, resume low-dose metoprolol if blood pressure heart rate will allow, ? It sensitive to amiodarone, had hypotension will avoid for now -eliquis ? Metoprolol 25 twice daily ? Eliquis for DVT prophylaxis Systolic CHF, ? Repeat cardiac echo, CONCLUSIONS Limited echo to assess the LV function. Mild concentric LVH. Mildly reduced LV systolic function with hypokinesis of mid anterior and anteroseptal wall segments. Estimated LVEF is mildly reduced 45 to 50%. Aortic valve appears significantly thickened with sclerosis and restricted movements of aortic valve leaflets. However any stenosis or regurgitation was not evaluated during the study. ? As above, NSTEMI, History of CAD, stenting x1, ? Type I versus type II NSTEMI ? Acute respiratory failure, ? Plan, ? Serial EKGs, serial troponins, telemetry monitoring, ? Cardiac echo as above, does show mildly reduced ejection fraction ? Aspirin, statin, ? No chest pain complaints, will continue to monitor, consider stress testing either inpatient versus outpatient depending on clinical progress Acute on chronic kidney disease Creatinine 3.2 Nephro consulted Required temporary dialysis for contrast-induced nephropathy in the past Hyperkalemia, improving ? With underlying CKD, ? Several doses of insulin, D50, Kayexalate have been given, with Lasix as above ? Currently on scheduled Kayexalate Systolic CHF Family not interested in a LifeVest or AICD However EF has improved from 35% to 45% now Patient has bilateral lower extremity swelling Intermittent tachycardia patient receives metoprolol at home Peripheral vascular disease cardiology recommended medical management SVT, status post adenosine, on 07/04/2023 Physical deconditioning, protein calorie malnutrition, consult dietary, PT OT Wound care: Follows up with Dr. Baird once a month Consistent carb diet Sliding scale DVT prophylaxis, Eliquis currently on hold, resume tomorrow morning - Patient was seen this morning, he does awaken, described drowsy, alert to person, not to place, not to time, at bedside, -thora vent currently to waterseal, on BiPAP, no air leak detected ? Currently on BiPAP, switched chest tube to suction, while on BiPAP, chest x- ray does not show reoccurrence of pneumothorax, ? Discussed with at bedside, currently the issue is that he is hypercarbic, has hypercarbic respiratory failure, will keep on BiPAP for the next few hours, if his pCO2 does not improve he will need a longer course of BiPAP while he is on BiPAP will keep the chest tube to suction, to prevent reoccurrence of the pneumothorax, ? Will have to monitor his pCO2 closely, I need him to blow off the CO2, as it is affecting his mentation, and morbidity mortality associated, he has had hypercarbic respiratory failure here during his hospitalization and typically with appropriate BiPAP therapy he blows off his CO2 I am hoping that we can continue to use BiPAP, however if his respiratory status worsens or imitations worsen then we will have to consider intubation ? Once his hypercarbia resolves, we can consider putting the chest tube to waterseal and likely hopefully remove ? Continue to dmitry, Attricardo 2 Medical Necessity Statement*: Patient requires for hypercarbic respiratory failure, renal failure, fluid overload, chest tube management, hypercarbic respiratory failure requiring BiPAP, diuresis, Coding Level of Care Code Critical Care >/= 30 minutes Critical care time (in minutes): 45 The high probability of a clinically significant, sudden or life threatening deterioration, as referenced in this documentation, required my full and direct attention, intervention and personal management. The critical care time shown is in addition to time spent performing any reported separately billable procedures and includes the following: [x] Data and vital sign review and interpretation [x ] Patient assessment, examination and intervention [x] Medication orders and management [x] Patient/Family updates as able [x] Care Coordination and Documentation. Diagnoses Acute hyperkalemia E87.5 Pleural effusion J90 Status post amputation of right foot through metatarsal bone Z89.431 Laterality: right Acute kidney injury superimposed on CKD N17.9; N18.9 CKD (chronic kidney disease) N18.9 Pulmonary infiltrate present on computed tomography R91.8 Non-pressure chronic ulcer of other part of right foot with necrosis of bone L97.514 Diabetic neuropathy E11.40 Ischemic cardiomyopathy I25.5 Systolic heart failure I50.20 Elevated hemidiaphragm J98.6 Atelectasis, left J98.11 Status post amputation of toe of right foot Z89.421 Typical atrial flutter I48.3 Atrial flutter type: typical Acute respiratory failure with hypoxia and hypercapnia J96.01; J96.02 NSTEMI (non-ST elevated myocardial infarction) I21.4 Systolic CHF, acute I50.21 Pulmonary edema J81.1 Fluid overload E87.70 Hyperkalemia E87.5 Hypothyroidism E03.9 SVT (supraventricular tachycardia) I47.1 Atrial fibrillation with RVR I48.91 PNA (pneumonia) J18.9 Aspiration into airway T17.908A Aspiration pneumonitis J69.0 Physical deconditioning R53.81 Protein calorie malnutrition E46 Pneumothorax on right J93.9
--- NOTE | 2023-07-11 15:32 | P.PN_ITS ---
Subjective 2 Subjective: feels ok Medications: Reviewed: Yes Vitals/I&O/Wt Last Vital Signs Temp 98.1 F 07/10/23 23:30 Pulse 72 07/11/23 14:00 Resp 14 07/11/23 12:30 BP 89/66 07/11/23 14:00 Pulse Ox 95 07/11/23 13:55 O2 Del Method BiPAP 07/11/23 08:34 O2 Flow Rate 30 07/11/23 08:34 FiO2 24 07/11/23 13:55 07/11/23 07/11/23 07/11/23 06:59 14:59 22:59 Intake Total 100 / 1218 60 / 60 Output Total 185 / 3760 Balance -85 / -2542 60 / 60 Weight last 48 hrs Weight 93.259 kg Weight 104.145 kg Physical Exam 2 Narrative: Awake, mild distress + edema Urinary Catheter Management: Kincaid: Cath Placed During This Visit: yes Reason for Continuing Indwelling Catheter: Accurate Measurement of Urinary Output in Critically Ill Patients Urinary Catheter Date of Insertion: 07/02/23 Urinary Catheter Time of Insertion: 03:30 Data 07/11/23 05:04 07/11/23 05:04 A&P Assessment and plan (1) Acute kidney injury superimposed on CKD: Plan 1. Acute on chronic kidney disease stage III: Baseline creatinine is in the mid 1 range, had prior SALLY requiring temporary hemodialysis due to contrast nephropathy -Patient presented with SALLY with a creatinine of 3.5 on presentation likely prerenal/ATN. Nonoliguric. no improvement in renal function - has volume overload , rising BUN , and low UOP ,, - inititated HD for volume management , HD #2 today 2. Hyperkalemia: Medical maximiliano daly, low K diet, improved 3. Hypernatremia ,improving 4. History of CHF, with low ejection fraction 35 to 45%, 5. History of peripheral vascular disease and right TMA in the past 6. Metabolic alkalosis - contraction alkalosis ,stable Patient evaluated using audiovisual cart. Time spent 20minutes. Attestations 2 Medical Necessity Statement*: per medicine team Coding Level of Care Code Acute Code for Chg Fwd Diagnoses Acute kidney injury superimposed on CKD N17.9; N18.9
[2023-07-11] MEDS: heparin, porcine 1,000 unit/mL INJ 10 mL 1000 UNIT IV (15:37)
[2023-07-11 17:05] LABS: Glucose Point of Care 90 mg/dL (70-110)
[2023-07-11] MEDS: aspirin 81 mg EC Tablet PO (20:41)
[2023-07-12] VITALS (59 sets, daily range): BP systolic 100–185; BP diastolic 50–87; PULSE 73–120; RESP 0–32; TEMP 36.7–37.3; O2SAT 90–100
[2023-07-12 05:23] LABS: Basophils % 0.4 %; Eosinophils # 0.3 10^3/uL (0.0-0.8); Eosinophils % 3.1 %; Hematocrit 38.1 % (37-53); Lymphocytes # 3.3 10^3/uL (0.8-4.8); Lymphocytes % 35.6 %; Mean Corpuscular HGB Conc 28.9 g/dL (30-55); Mean Corpuscular Hemoglobin 26.1 pg (27-33); Mean Corpuscular Volume 90.3 fl (82-101); Mean Platelet Volume 10.6 fL (7.4-10.4); Monocytes # 0.6 10^3/uL (0.2-0.9); Neutrophils # 4.99 10^3/uL (1.8-7.7); Neutrophils % 54.6 %; Nucleated Red Blood Cells % 0 %; Platelet Count 154 10^3/cmm (157-399); Red Blood Count 4.22 10^6/uL (3.85-5.65); Red Cell Distribution Width 16.1 % (12.1-15.1); White Blood Count 9.14 10^3/uL (3.29-11.43)
[2023-07-12 05:33] LABS: ABG PCO2 59.9 mmHg (35-45); ABG PH Result 7.34 (7.35-7.45); Arterial Blood Gas Hematocrit 32.8 % (42-52); Base Excess ABG 5.3 mmol/L (-2.0-2.0); Blood Gas Allen Test Pos; Blood Gas Operator Identificat JB; Blood Gas Sample Site Radial, right; Blood Gas Sample Type Arterial; Blood Gas Tidal Volume 0.45; HCO3 ABG 32.4 mmol/L (22-26); Oxygen Device BIPAP; PO2 ABG 74.9 mmHg (80.0-100.0); PO2 FiO2 Ratio Arterial Blood 0
[2023-07-12 05:48] LABS: Alanine Aminotransferase 8 U/L (0-41); Albumin Level 3.8 g/dL (3.5-5.2); Alkaline Phosphatase 75 U/L (40-130); Aspartate Amino Transferase 8 U/L (0-40); Blood Urea Nitrogen 61 mg/dL (8-23); C Reactive Protein 31.4 mg/L (0.0-4.9); Calcium 8.1 mg/dL (8.5-10.5); Carbon Dioxide 31 mmol/L (22-29); Chloride 100 mmol/L (98-107); Globulin 1.8 g/dL (1.3-4.6); Glucose 183 mg/dL (65-115); Lactate (Lactic Acid level) 0.9 mmol/L (0.5-2.2); Magnesium 2.2 mg/dL (1.7-2.3); Osmolality Calculated 316 mOsm/kg (285-295); Sodium 142 mmol/L (136-145); Total Bilirubin 0.5 mg/dL (0.15-1.2); Total Protein 5.6 g/dL (6.6-8.7)
[2023-07-12 05:51] LABS: NT Pro B Type Natriuretic Pept 28457 pg/mL (0-125); Procalcitonin 0.92 ng/mL (0-0.5)
[2023-07-12] MEDS: aztreonam 1,000 MG in sodium chloride 0.9% (plus) 50 ML 100 MG IV ×2 (06:20→17:17)
[2023-07-12] MEDS: thyroid 60 mg Tablet PO (06:21)
--- NOTE | 2023-07-12 07:00 | XRR_ITS ---
PROCEDURE INFORMATION: Exam: XR Chest Exam date and time: 07/12/2023 7:42 AM Age: 73 years old Clinical indication: Shortness of breath; Additional info: SOB TECHNIQUE: Imaging protocol: Radiologic exam of the chest. Views: 1 view. COMPARISON: CR XR chest 1V portable [id number] 07/11/2023 9:41 AM FINDINGS: Tubes, catheters and devices: No change in the right multi lumen catheter or right thoracostomy tube. Lungs: Stable bibasilar atelectasis or infiltrate trace pleural effusions. Pleural spaces: No pneumothorax. Heart/Mediastinum: No change in the heart, mediastinum, or bony thorax. Bones/joints: See Heart/Mediastinum finding. XR/XR chest 1V portable [id number] IMPRESSION: No significant change.
[2023-07-12 08:36] LABS: Glucose Point of Care 193 mg/dL (70-110)
[2023-07-12] MEDS: FUROsemide 40 mg Tablet PO ×2 (08:37→17:18)
[2023-07-12] MEDS: metoprolol tartrate 25 mg Tablet PO ×2 (08:37→21:06)
[2023-07-12] MEDS: insulin lispro 100 unit/1 mL SUBCUT ×4 (08:38→21:17)
[2023-07-12] MEDS: thiamine 100 mg Tablet PO (08:38)
--- NOTE | 2023-07-12 08:43 | P.PN_ITS ---
Subjective 2 Subjective: doing well SOB improved Medications: Reviewed: Yes Vitals/I&O/Wt Last Vital Signs Temp 98.0 F 07/11/23 19:30 Pulse 75 07/12/23 08:33 Resp 15 07/12/23 08:33 BP 151/57 07/12/23 06:30 Pulse Ox 95 07/12/23 08:33 O2 Del Method BiPAP 07/12/23 08:33 O2 Flow Rate 24 07/12/23 08:33 FiO2 24 07/12/23 08:31 07/11/23 07/12/23 07/12/23 22:59 06:59 14:59 Intake Total 670 / 730 50 / 780 Output Total 2065 / 2065 Balance -1396 / -1336 50 / -1286 Weight last 48 hrs Weight 100.244 kg Weight 100.244 kg Weight 93.259 kg Physical Exam 2 Narrative: Awake, mild distress + edema Urinary Catheter Management: Kincaid: Cath Placed During This Visit: yes Reason for Continuing Indwelling Catheter: Accurate Measurement of Urinary Output in Critically Ill Patients Urinary Catheter Date of Insertion: 07/02/23 Urinary Catheter Time of Insertion: 03:30 Data 07/12/23 04:36 07/12/23 04:36 A&P Assessment and plan (1) Acute kidney injury superimposed on CKD: Plan 1. Acute on chronic kidney disease stage III: Baseline creatinine is in the mid 1 range, had prior SALLY requiring temporary hemodialysis due to contrast nephropathy -Patient presented with SALLY with a creatinine of 3.5 on presentation likely prerenal/ATN. Nonoliguric. no improvement in renal function - has volume overload , rising BUN , and low UOP ,, - inititated HD for volume management , s/p 2 sessions 2. Hyperkalemia:, low K diet, improved 3. Hypernatremia ,improving 4. History of CHF, with low ejection fraction 35 to 45%, 5. History of peripheral vascular disease and right TMA in the past 6. Metabolic alkalosis - contraction alkalosis ,stable Patient evaluated using audiovisual cart. Time spent 20minutes. Attestations 2 Medical Necessity Statement*: per lucy Coding Level of Care Code Acute Code for Chg Fwd Diagnoses Acute kidney injury superimposed on CKD N17.9; N18.9
[2023-07-12] MEDS: apixaban 5 mg Tablet PO (09:44)
[2023-07-12] MEDS: acetaminophen 500 mg Tablet PO ×2 (09:44→17:39)
--- NOTE | 2023-07-12 10:03 | P.PN_ITS ---
Subjective 2 Subjective: Patient seen bedside this a.m. for dressing change of lower extremities. Received a Ortho Claudia whole limb solutions boot to the right lower extremity to facilitate weightbearing and offloading of the transmetatarsal potation site with delayed wound healing. Vitals/I&O/Wt Last Vital Signs Temp 99.1 F 07/12/23 08:00 Pulse 84 07/12/23 09:00 Resp 15 07/12/23 08:33 BP 159/65 07/12/23 09:00 Pulse Ox 92 07/12/23 09:00 O2 Del Method BiPAP 07/12/23 08:33 O2 Flow Rate 24 07/12/23 08:33 FiO2 24 07/12/23 08:31 07/11/23 07/12/23 07/12/23 22:59 06:59 14:59 Intake Total 670 / 730 50 / 780 Output Total 2065 / 2065 Balance -1396 / -1336 50 / -1286 Weight last 48 hrs Weight 221 lb Weight 221 lb Weight 205 lb 9.6 oz Physical Exam 2 Narrative: GENERAL: Patient is alert and oriented ?3 and in no acute distress. The following is a focused right lower extremity exam. VASCULAR: Dorsalis pedis and posterior tibial arteries diminished. Delay in capillary refill right transmetatarsal potation stump. Edema to the right lower extremity. NEUROLOGICAL: Protective sensation diminished to light touch. DERMATOLOGICAL: Stable eschar at the plantar lateral aspect of the right transmetatarsal amputation site. No purulence or erythema or warmth. Bilateral feet and leg dependent rubor. Water blisters limited to breakdown of skin x 2 at the left anterior leg. No purulent drainage and no proximal lymphangitic streaking, no soft tissue crepitus. MUSCULOSKELETAL: No pain with posterior calf squeeze. Status post right transmetatarsal amputation. Urinary Catheter Management: Kincaid: Cath Placed During This Visit: yes Reason for Continuing Indwelling Catheter: Accurate Measurement of Urinary Output in Critically Ill Patients Urinary Catheter Date of Insertion: 07/02/23 Urinary Catheter Time of Insertion: 03:30 Data 07/12/23 04:36 07/12/23 04:36 A&P Assessment and plan (1) S/P transmetatarsal amputation of foot: Qualifiers: Laterality: right Qualified Code(s): Z89.431 - Acquired absence of right foot (2) Dehiscence of wound: (3) Diabetic peripheral neuropathy associated with type 2 diabetes mellitus: (4) Leg wound, left: Plan 73-year-old male status post right transmetatarsal amputation with surgical site dehiscence and delayed healing. At this time the right TMA amputation site with wound is stable with a stable eschar, no periwound erythema, there is no warmth or drainage. Right foot wound was dressed at today's visit with silver alginate, 4 inch Kerlix, skin tape, sock covering and white stockinette without compression of the right leg. Left leg has a grade 1 wound at the anterior lateral leg without acute signs of infection. Dressed with silver alginate, 4 inch Kerlix and stockinette. Patient may weight-bear as tolerated with a Ortho Claudia whole limb salvage boot to the right lower extremity and a diabetic shoe with diabetic insert to the left lower extremity. May be weightbearing as tolerated with physical therapy, will require aggressive physical therapy for standing, transferring and walking. Attestations 2 Medical Necessity Statement*: Bilateral lower extremity wounds. Coding Level of Care Code Acute Code for Chg Fwd Diagnoses Status post amputation of right foot through metatarsal bone Z89.431 Laterality: right Dehiscence of wound T81.30XA Diabetic peripheral neuropathy associated with type 2 diabetes mellitus E11.42 Leg wound, left S81.802A
[2023-07-12 11:31] LABS: Glucose Point of Care 183 mg/dL (70-110)
[2023-07-12 11:31] LABS: Glucose Point of Care 175 mg/dL (70-110)
[2023-07-12 12:12] LABS: Glucose Point of Care 274 mg/dL (70-110)
--- NOTE | 2023-07-12 12:24 | P.PN_ITS ---
Subjective 2 Subjective: Patient sitting up in chair and alert today. Pain controlled Vitals/I&O/Wt Last Vital Signs Temp 99.1 F 07/12/23 08:00 Pulse 108 H 07/12/23 12:11 Resp 15 07/12/23 08:33 BP 105/65 07/12/23 10:00 Pulse Ox 95 07/12/23 12:11 O2 Del Method BiPAP 07/12/23 08:33 O2 Flow Rate 24 07/12/23 08:33 FiO2 24 07/12/23 12:11 07/11/23 07/12/23 07/12/23 22:59 06:59 14:59 Intake Total 670 / 730 50 / 780 480 / 480 Output Total 2066 / 2066 Balance -1396 / -1336 50 / -1286 480 / 480 Weight last 48 hrs Weight 221 lb Weight 221 lb Weight 205 lb 9.6 oz Physical Exam 2 Narrative: General: No acute distress, alert and sitting up in chair BiPAP Respiratory: Equal chest rise bilaterally on BiPAP, Thora vent on wall suction without air leak, serous output Urinary Catheter Management: Kincaid: Cath Placed During This Visit: yes Reason for Continuing Indwelling Catheter: Accurate Measurement of Urinary Output in Critically Ill Patients Urinary Catheter Date of Insertion: 07/02/23 Urinary Catheter Time of Insertion: 03:30 Data 07/12/23 04:36 07/12/23 04:36 A&P Assessment and plan (1) Acute kidney injury: (2) Systolic CHF, acute: (3) Fluid overload: (4) Pneumothorax on right: Plan Status post permacath placement Status post right-sided Thoravent placement for Right-sided pneumothorax Continue Pleur-evac to wall suction until off high-pressure ventilation Hemodialysis per nephrology Medical management per hospitalist Attestations 2 Medical Necessity Statement*: per primary Coding Level of Care Code 72690 Diagnoses Acute kidney injury N17.9 Systolic CHF, acute I50.21 Fluid overload E87.70 Pneumothorax on right J93.9
--- NOTE | 2023-07-12 13:58 | P.PN_ITS ---
Subjective 2 Subjective: Patient was seen this morning, currently on BiPAP, is alert awake, following all commands, overnight he remained on suction on his Thora vent, this morning he continues to have some degree of hypercarbia 60, with a pH of 7.34, will continue bicarb, continue to monitor his respiratory status he can take the BiPAP off today eating his meals once he blows off his CO2, we can consider taking his Thora vent off suction and to waterseal, and then hopefully discontinue thereafter, but as long as he remains BiPAP dependent we will have to keep him on suction as I am worried that he might develop a recurrence of his pneumothorax, is at bedside is understandable we will have PT OT work with him continue to monitor him currently closely in ICU, he is agreeable he is alert awake, following all commands, he thinks Dr. Frye, thanks me BMP it remains elevated, but he is put out about 8 L Vitals/I&O/Wt Last Vital Signs Temp 99.1 F 07/12/23 08:00 Pulse 110 H 07/12/23 13:00 Resp 23 H 07/12/23 13:00 BP 140/84 07/12/23 13:00 Pulse Ox 96 07/12/23 13:00 O2 Del Method BiPAP 07/12/23 08:33 O2 Flow Rate 24 07/12/23 08:33 FiO2 24 07/12/23 12:11 07/11/23 07/12/23 07/12/23 22:59 06:59 14:59 Intake Total 670 / 730 50 / 780 840 / 840 Output Total 2066 / 2066 Balance -1396 / -1336 50 / -1286 840 / 840 Weight last 48 hrs Weight 100.244 kg Weight 100.244 kg Weight 93.259 kg Physical Exam 2 Const: COMMON NORMALS: no acute distress and patient oriented x3 Resp: COMMON NORMALS: normal respiratory effort, No retractions, No use of accessory muscles and clear to auscultation bilaterally AUSCULTATION: clear to auscultation bilaterally Cardio: COMMON NORMALS: regular rate, regular rhythm, S1 normal heart sound present and S2 normal heart sound present RATE: regular rate RHYTHM: r egular rhythm HEART SOUNDS: S1 normal heart sound present and S2 normal heart sound present GI: COMMON NORMALS: Normal to inspection, nondistended, normoactive bowel sounds present and non-tender Extremity: COMMON NORMALS: no pedal edema Neuro: COMMON NORMALS: patient oriented x3 Psych: COMMON NORMALS: mental status grossly normal Urinary Catheter Management: Kincaid: Cath Placed During This Visit: yes Reason for Continuing Indwelling Catheter: Accurate Measurement of Urinary Output in Critically Ill Patients Urinary Catheter Date of Insertion: 07/02/23 Urinary Catheter Time of Insertion: 03:30 Data 07/12/23 04:36 07/12/23 04:36 A&P Assessment and plan (1) Acute hyperkalemia: (2) Pleural effusion: (3) S/P transmetatarsal amputation of foot: Qualifiers: Laterality: right Qualified Code(s): Z89.431 - Acquired absence of right foot (4) Acute kidney injury superimposed on CKD: (5) CKD (chronic kidney disease): (6) Pulmonary infiltrate present on computed tomography: (7) Non-pressure chronic ulcer of other part of right foot with necrosis of bone: (8) Diabetic neuropathy: (9) Ischemic cardiomyopathy: (10) Systolic heart failure: (11) Elevated hemidiaphragm: (12) Atelectasis, left: (13) Status post amputation of toe of right foot: (14) Atrial flutter: Qualifiers: Atrial flutter type: typical Qualified Code(s): I48.3 - Typical atrial flutter (15) Acute respiratory failure with hypoxia and hypercapnia: (16) NSTEMI (non-ST elevated myocardial infarction): (17) Systolic CHF, acute: (18) Pulmonary edema: (19) Fluid overload: (20) Hyperkalemia: (21) Hypothyroidism: (22) SVT (supraventricular tachycardia): (23) Atrial fibrillation with RVR: (24) PNA (pneumonia): (25) Aspiration into airway: (26) Aspiration pneumonitis: (27) Physical deconditioning: (28) Protein calorie malnutrition: (29) Pneumothorax on right: Plan Plan Pneumothorax, -Repeat chest x-ray does not show any radiographic evidence of recurrence or pneumothorax, ? Currently Thora vent to suction, while he is on BiPAP ? Will continue to monitor over 24 hours consider placing to waterseal, ? Will repeat chest x-ray tomorrow morning Right pleural effusion, ? Thora vent in place, ? 1200 mL removed's overall recommend ?monitor for reexpansion injury, Left pleural effusion will consider thoracocentesis based on clinical progress Acute encephalopathy, secondary to hypercarbia, uremia, resolving ? Currently having hypercarbic encephalopathy, continue bipap, monitor ABG, ? Likely secondary to fluid overload, pulmonary edema ? Monitor mentation closely, ? Neurochecks, aspiration precautions, Acute renal failure, ? With uremia, ? With uremic encephalopathy, ? Monitor urine output, monitor creatinine, ?Status post dialysis catheter replacement, status post dialysis Acute hypoxic hypercarbic respiratory failure, ? Low threshold for intubation, continue ICU monitoring ? Secondary to pulm edema, fluid overload, systolic CHF, pneumonia, aspiration pneumonitis, aspiration into airway ?currently hypercarbic respiratory failure -Holding off on BiPAP, as Thora vent in place ? However if respiratory status worsens overnight, can consider putting back on BiPAP with Thora vent on suction ? Plan, ? Monitor intensive care unit, ? Monitor respiratory status, ? Status post dialysisi ? Monitor creatinine monitor urine output, monitor potassium ? Full code, ? scd for DVT prophylaxis Pneumonia Chest x-ray shows bibasilar atelectasis and/or pneumonitis Highly concerning for aspiration event given his altered mental status, hypotension episode, A-fib with RVR, his choking spells? Continue clear liquids for now Speech therapy eval ? Modified barium swallow and barium swallow today vancomycin on hold due to elevated vancomycin trough at 29.1 aztreonam Aspiration pneumonia, aspiration pneumonitis, aspiration airway, ? Aspiration precautions, small volume feeds, for now clear liquids, ? Modified barium and barium swallow today Acute hypotension, resolved ? Likely secondary to vasovagal event, A-fib with RVR, ? currently off leophed ? Currently midline in place, A-fib with RVR, resolved ? Currently in normal sinus rhythm, resume low-dose metoprolol if blood pressure heart rate will allow, ? It sensitive to amiodarone, had hypotension will avoid for now -eliquis ? Metoprolol 25 twice daily ? Eliquis for DVT prophylaxis Systolic CHF, ? Repeat cardiac echo, CONCLUSIONS Limited echo to assess the LV function. Mild concentric LVH. Mildly reduced LV systolic function with hypokinesis of mid anterior and anteroseptal wall segments. Estimated LVEF is mildly reduced 45 to 50%. Aortic valve appears significantly thickened with sclerosis and restricted movements of aortic valve leaflets. However any stenosis or regurgitation was not evaluated during the study. ? As above, NSTEMI, History of CAD, stenting x1, ? Type I versus type II NSTEMI ? Acute respiratory failure, ? Plan, ? Serial EKGs, serial troponins, telemetry monitoring, ? Cardiac echo as above, does show mildly reduced ejection fraction ? Aspirin, statin, ? No chest pain complaints, will continue to monitor, consider stress testing either inpatient versus outpatient depending on clinical progress Acute on chronic kidney disease Creatinine 3.2 Nephro consulted Required temporary dialysis for contrast-induced nephropathy in the past Hyperkalemia, improving ? With underlying CKD, ? Several doses of insulin, D50, Kayexalate have been given, with Lasix as above ? Currently on scheduled Kayexalate Systolic CHF Family not interested in a LifeVest or AICD However EF has improved from 35% to 45% now Patient has bilateral lower extremity swelling Intermittent tachycardia patient receives metoprolol at home Peripheral vascular disease cardiology recommended medical management SVT, status post adenosine, on 07/04/2023 Physical deconditioning, protein calorie malnutrition, consult dietary, PT OT Wound care: Follows up with Dr. Baird once a month Consistent carb diet Sliding scale DVT prophylaxis, Eliquis currently on hold, resume tomorrow morning Patient was seen this morning, currently on BiPAP, is alert awake, following all commands, overnight he remained on suction on his Thora vent, this morning he continues to have some degree of hypercarbia 60, with a pH of 7.34, will continue bicarb, continue to monitor his respiratory status he can take the BiPAP off today eating his meals once he blows off his CO2, we can consider taking his Thora vent off suction and to waterseal, and then hopefully discontinue thereafter, but as long as he remains BiPAP dependent we will have to keep him on suction as I am worried that he might develop a recurrence of his pneumothorax, is at bedside is understandable we will have PT OT work with him continue to monitor him currently closely in ICU, he is agreeable he is alert awake, following all commands, he thinks Dr. Frye, thanks me BMP it remains elevated, but he is put out about 8 L Attestations 2 Medical Necessity Statement*: Patient requires hospitalization for respiratory failure, pneumothorax, requiring diuresis, renal failure, requiring dialysis, requiring chest tube Thora vent management Coding Level of Care Code Critical Care >/= 30 minutes Critical care time (in minutes): 45 The high probability of a clinically significant, sudden or life threatening deterioration, as referenced in this documentation, required my full and direct attention, intervention and personal management. The critical care time shown is in addition to time spent performing any reported separately billable procedures and includes the following: [x] Data and vital sign review and interpretation [x ] Patient assessment, examination and intervention [x] Medication orders and management [x] Patient/Family updates as able [x] Care Coordination and Documentation. Diagnoses Acute hyperkalemia E87.5 Pleural effusion J90 Status post amputation of right foot through metatarsal bone Z89.431 Laterality: right Acute kidney injury superimposed on CKD N17.9; N18.9 CKD (chronic kidney disease) N18.9 Pulmonary infiltrate present on computed tomography R91.8 Non-pressure chronic ulcer of other part of right foot with necrosis of bone L97.514 Diabetic neuropathy E11.40 Ischemic cardiomyopathy I25.5 Systolic heart failure I50.20 Elevated hemidiaphragm J98.6 Atelectasis, left J98.11 Status post amputation of toe of right foot Z89.421 Typical atrial flutter I48.3 Atrial flutter type: typical Acute respiratory failure with hypoxia and hypercapnia J96.01; J96.02 NSTEMI (non-ST elevated myocardial infarction) I21.4 Systolic CHF, acute I50.21 Pulmonary edema J81.1 Fluid overload E87.70 Hyperkalemia E87.5 Hypothyroidism E03.9 SVT (supraventricular tachycardia) I47.1 Atrial fibrillation with RVR I48.91 PNA (pneumonia) J18.9 Aspiration into airway T17.908A Aspiration pneumonitis J69.0 Physical deconditioning R53.81 Protein calorie malnutrition E46 Pneumothorax on right J93.9
[2023-07-12 15:37] LABS: ABG PH Result 7.36 (7.35-7.45); Arterial Blood Gas Hematocrit 32.8 % (42-52); Base Excess ABG 7.1 mmol/L (-2.0-2.0); Blood Gas Allen Test Pos; Blood Gas Operator Identificat GD; Blood Gas Sample Site Radial, left; Blood Gas Sample Type Arterial; HCO3 ABG 34.2 mmol/L (22-26); Oxygen Device BIPAP; PO2 FiO2 Ratio Arterial Blood 0
--- NOTE | 2023-07-12 16:17 | XRR_ITS ---
PROCEDURE INFORMATION: Exam: XR Chest Exam date and time: 07/12/2023 6:28 PM Age: 73 years old Clinical indication: Pain; Patient HX: Increased chest pressure; Chest tube eval; Followup pneumothorax TECHNIQUE: Imaging protocol: Radiologic exam of the chest. Views: 1 view. COMPARISON: CR (CHEST, ) 07/12/2023 7:42 AM FINDINGS: Tubes, catheters and devices: Wide bore central venous catheter tip projects over the right atrium similar to the prior study. Chest tube overlies the right upper lung field similar to the prior study. No residual pneumothorax seen on this limited image. Lungs: Hazy bibasilar opacities. Pleural spaces: Costophrenic angles are obscured and pleural effusions cannot be excluded. Heart/Mediastinum: Unremarkable. No cardiomegaly. Vasculature: There is calcified plaque in the aortic knob. Bones/joints: Unremarkable. XR/XR chest 1V portable [id number] IMPRESSION: 1. Chest tube overlies the right upper lung field similar to the prior study. No residual pneumothorax seen on this limited image. 2. Hazy bibasilar opacities are nonspecific and may represent atelectatic change. Pneumonia cannot be excluded.
[2023-07-12 17:08] LABS: Glucose Point of Care 287 mg/dL (70-110)
--- NOTE | 2023-07-12 18:36 | ECG_ITS ---
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 Measurements Intervals [place] Rate: 110 P: 38 OR: 205 QRS: 29 QRSD: 101 T: 55 QT: 384 QTc: 522 Interpretive Statements SINUS TACHYCARDIA NONSPECIFIC T-WAVE ABNORMALITY ABNORMAL RHYTHM ECG Compared to ECG 07/10/2023 12:15:17 Sinus rhythm no longer present Incomplete right bundle-branch block no longer present T-wave abnormality still present Electronically Signed On 07-13-2023 8:35:33 C PROGRAMMER by Domenico Munguia M.D. [id number]
[2023-07-12] MEDS: aspirin 81 mg EC Tablet PO (21:06)
[2023-07-12 21:13] LABS: Glucose Point of Care 272 mg/dL (70-110)
--- NOTE | 2023-07-12 21:51 | PC.NURSE ---
Report given to REESE King
[2023-07-13] VITALS (41 sets, daily range): BP systolic 103–152; BP diastolic 55–83; PULSE 75–89; RESP 0–26; TEMP 36.4–36.9; O2SAT 76–100
[2023-07-13 04:00] LABS: ABG PCO2 54.2 mmHg (35-45); ABG PH Result 7.39 (7.35-7.45); Arterial Blood Gas Hematocrit 31.6 % (42-52); Base Excess ABG 6.3 mmol/L (-2.0-2.0); Blood Gas Allen Test Pos; Blood Gas Operator Identificat CAK; Blood Gas Sample Site Radial, left; Blood Gas Sample Type Arterial; HCO3 ABG 32.5 mmol/L (22-26); Oxygen Device NC
[2023-07-13 05:19] LABS: Basophils % 0.4 %; Eosinophils # 0.3 10^3/uL (0.0-0.8); Eosinophils % 3.9 %; Hematocrit 33.7 % (37-53); Lymphocytes # 3.2 10^3/uL (0.8-4.8); Lymphocytes % 38.1 %; Mean Corpuscular Hemoglobin 26.9 pg (27-33); Mean Corpuscular Volume 89.6 fl (82-101); Mean Platelet Volume 10.3 fL (7.4-10.4); Monocytes # 0.5 10^3/uL (0.2-0.9); Monocytes % 5.9 %; Neutrophils # 4.37 10^3/uL (1.8-7.7); Neutrophils % 51.2 %; Nucleated Red Blood Cells % 0 %; Platelet Count 190 10^3/cmm (157-399); Red Blood Count 3.76 10^6/uL (3.85-5.65); White Blood Count 8.51 10^3/uL (3.29-11.43)
[2023-07-13 05:38] LABS: Alanine Aminotransferase 6 U/L (0-41); Albumin Level 3.7 g/dL (3.5-5.2); Alkaline Phosphatase 69 U/L (40-130); Anion Gap 15.6 (5-19); Aspartate Amino Transferase 10 U/L (0-40); Blood Urea Nitrogen 75 mg/dL (8-23); C Reactive Protein 26.1 mg/L (0.0-4.9); Calcium 8.2 mg/dL (8.5-10.5); Carbon Dioxide 30 mmol/L (22-29); Chloride 98 mmol/L (98-107); Globulin 1.6 g/dL (1.3-4.6); Glucose 154 mg/dL (65-115); Magnesium 2.2 mg/dL (1.7-2.3); Osmolality Calculated 313 mOsm/kg (285-295); Phosphorus 2.8 mg/dL (2.5-4.5); Potassium 4.6 mmol/L (3.5-5.1); Sodium 139 mmol/L (136-145); Total Bilirubin 0.5 mg/dL (0.15-1.2); Total Protein 5.3 g/dL (6.6-8.7)
[2023-07-13 05:39] LABS: Lactate (Lactic Acid level) 1.1 mmol/L (0.5-2.2)
[2023-07-13 05:50] LABS: NT Pro B Type Natriuretic Pept 32685 pg/mL (0-125); Procalcitonin 0.78 ng/mL (0-0.5)
--- NOTE | 2023-07-13 05:57 | P.PN_ITS ---
Subjective 2 Subjective: no new complaints Medications: Reviewed: Yes Vitals/I&O/Wt Last Vital Signs Temp 98.4 F 07/13/23 04:00 Pulse 83 07/13/23 04:00 Resp 16 07/13/23 04:00 BP 125/65 07/13/23 04:00 Pulse Ox 100 07/13/23 04:00 O2 Del Method Nasal Cannula 07/13/23 04:00 O2 Flow Rate 3 07/13/23 04:00 FiO2 24 07/12/23 23:04 07/12/23 07/12/23 07/13/23 14:59 22:59 06:59 Intake Total 840 / 840 230 / 1070 Output Total 100 / 100 Balance 840 / 840 130 / 970 Weight last 48 hrs Weight 100.244 kg Weight 100.244 kg Physical Exam 2 Narrative: Awake, mild distress + edema Urinary Catheter Management: Kincaid: Cath Placed During This Visit: yes Reason for Continuing Indwelling Catheter: Accurate Measurement of Urinary Output in Critically Ill Patients Urinary Catheter Date of Insertion: 07/02/23 Urinary Catheter Time of Insertion: 03:30 Data 07/14/23 03:29 07/14/23 03:29 A&P Assessment and plan (1) Acute kidney injury superimposed on CKD: Plan 1. Acute on chronic kidney disease stage III: Baseline creatinine is in the mid 1 range, had prior SALLY requiring temporary hemodialysis due to contrast nephropathy -Patient presented with SALLY with a creatinine of 3.5 on presentation likely prerenal/ATN. Nonoliguric. no improvement in renal function - has volume overload , rising BUN , and low UOP ,, - inititated HD for volume management , s/p 2 sessions , next HD friday - Arrange out pt HD 2. Hyperkalemia:, low K diet, improved 3. Hypernatremia ,improving 4. History of CHF, with low ejection fraction 35 to 45%, 5. History of peripheral vascular disease and right TMA in the past 6. Metabolic alkalosis - contraction alkalosis ,stable Patient evaluated using audiovisual cart. Time spent 20minutes. Attestations 2 Medical Necessity Statement*: per medicine team Coding Level of Care Code Acute Code for Chg Fwd Diagnoses Acute kidney injury superimposed on CKD N17.9; N18.9
[2023-07-13] MEDS: aztreonam 1,000 MG in sodium chloride 0.9% (plus) 50 ML 100 MG IV ×2 (06:35→17:16)
[2023-07-13] MEDS: thyroid 60 mg Tablet PO (06:36)
--- NOTE | 2023-07-13 07:00 | XRR_ITS ---
PROCEDURE INFORMATION: Exam: XR Chest Exam date and time: 07/13/2023 7:16 AM Age: 73 years old Clinical indication: Patient HX: F/u pneumothorax. Chest tube in place. ; Additional info: SOB TECHNIQUE: Imaging protocol: Radiologic exam of the chest. Views: 1 view. COMPARISON: CR (CHEST, ) 07/12/2023 6:28 PM FINDINGS: Lungs: Bibasilar atelectasis or infiltrate probably with small effusions persist. There may be minimally denser than before. Pleural spaces: The 2 right life support lines are stable. I see no pneumothorax. Heart/Mediastinum: No change in the heart or mediastinum. Bones/joints: Unremarkable. XR/XR chest 1V portable [id number] IMPRESSION: No significant change.
[2023-07-13 08:50] LABS: Glucose Point of Care 133 mg/dL (70-110)
[2023-07-13] MEDS: FUROsemide 40 mg Tablet PO ×2 (09:37→17:15)
[2023-07-13] MEDS: thiamine 100 mg Tablet PO (09:37)
[2023-07-13] MEDS: metoprolol tartrate 25 mg Tablet PO ×2 (09:37→20:18)
--- NOTE | 2023-07-13 09:50 | PC.NURSE ---
0849 am verbal order received at bedside by DR MEZA to put pt chest tube to waterseal. suction dc and put on waterseal as ordered.
--- NOTE | 2023-07-13 11:36 | XRR_ITS ---
PROCEDURE INFORMATION: Exam: XR Chest Exam date and time: 07/13/2023 1:10 PM Age: 73 years old Clinical indication: Device placement; Patient HX: SOB; Chest tube maintnance; F/u pneumothorax TECHNIQUE: Imaging protocol: Radiologic exam of the chest. Views: 1 view. COMPARISON: CR (CHEST, ) 07/13/2023 7:16 AM FINDINGS: Tubes, catheters and devices: Unchanged, satisfactory appearing tunneled right IJ dialysis catheter terminating in the upper right atrium. Lungs: Unchanged pulmonary vascular congestion. Unchanged bilateral pulmonary edema and/or pneumonitis with atelectasis in the lung bases. Pleural spaces: Unchanged small bilateral pleural effusions. No pneumothorax. Heart/Mediastinum: Unchanged mild cardiomegaly. Bones/joints: Unremarkable. XR/XR chest 1V portable [id number] IMPRESSION: No change.
[2023-07-13] MEDS: metOLazone 5 MG Tablet PO (11:40)
[2023-07-13 11:48] LABS: Glucose Point of Care 232 mg/dL (70-110)
[2023-07-13] MEDS: insulin lispro 100 unit/1 mL SUBCUT ×3 (12:23→20:18)
--- NOTE | 2023-07-13 15:30 | P.PN_ITS ---
Subjective 2 Subjective: Patient was examined early this morning, unfortunately overnight, his chest tube was not placed to waterseal, ? I saw him early this morning, no significant fluid output form thoravent, had the nursing staff placed his chest tube to waterseal, ? Currently he is off BiPAP therapy, he is alert awake, following all commands, denies any chest pain, shortness of breath his repeat ABG this morning shows pCO2 at 54.2 and a pH of 7.39, we discussed his chronic hypercarbia, as he continues to develop episodes of hypercarbia I think that he likely will need a chronic BiPAP machine to help with chronic hypercarbic respiratory failure, as whenever we take him off BiPAP, especially during the night, his pCO2 goes up to 100, and he needs BiPAP therapy for 24 to 48 hours to blow off the CO2 I am worried that when he goes home he will continue to have hypercarbic respiratory failure requiring recurrent hospitalizations, I clinically believe that patient will benefit from BiPAP therapy, will order overnight pulse ox ? Patient does have some pitting edema will continue his Lasix therapy, he is on 3 L, advised to fluid restriction therapy, will consider dialysis tomorrow, ? Repeat chest x-ray at 12 PM, shows no significant pneumothorax, his thoravent waterseal was removed by nursing staff and was capped -will repeat cxray at 4pm, watch in icu -reexamined, equal beath sounds bilatera lly, no shortness of breath -spoke to general surgery, agreed with a jose alfredo plan, plan on removal of thoravent by general surgery possibly this evening or tomorrow am based on clinical progress -In terms of anticoagulant therapy, Eliq uis therapy, for history of A-fib, patient and declined Eliquis therapy yesterday and today they are worried about bleeding, especially if he is bleeding from some peripheral wounds on his left leg, discussed the risks and benefits of anticoagulation, benefits including but not limited to to decrease the risk of CVA, they accept the risk of not being on anticoagulation therapy, understand morbidity mortality, shared decision making, for now they are agreeable to aspirin 81 mg, discharge will be discharged on aspirin 81 mg, will switch to Lovenox for DVT prophylaxis 40 mg subcut -discussed physical deconditioning, [facility] might require long-term placement, patient and he rather go home on home health, they have a daughter to help at home Vitals/I&O/Wt Last Vital Signs Temp 97.8 F 07/13/23 11:53 Pulse 78 07/13/23 14:30 Resp 9 L 07/13/23 14:30 BP 131/63 07/13/23 14:00 Pulse Ox 96 07/13/23 14:30 O2 Del Method Nasal Cannula 07/13/23 12:26 O2 Flow Rate 3 07/13/23 12:26 FiO2 24 07/12/23 23:04 07/13/23 07/13/23 07/13/23 06:59 14:59 22:59 Intake Total 415 / 1485 587 / 587 Output Total 276 / 376 40 / 40 Balance 139 / 1109 547 / 547 Weight last 48 hrs Weight 100.244 kg Weight 100.244 kg Physical Exam 2 Const: COMMON NORMALS: no acute distress and patient oriented x3 Chest: OTHER: right chest thora vent in place Resp: COMMON NORMALS: normal respiratory effort, No retractions, No use of accessory muscles and clear to auscultation bilaterally AUSCULTATION: clear to auscultation bilaterally Cardio: COMMON NORMALS: regular rate, regular rhythm, S1 normal heart sound present and S2 normal heart sound present RATE: regular rate RHYTHM: r egular rhythm HEART SOUNDS: S1 normal heart sound present and S2 normal heart sound present GI: COMMON NORMALS: Normal to inspection, nondistended, normoactive bowel sounds present and non-tender Extremity: COMMON NORMALS: no pedal edema Neuro: COMMON NORMALS: patient oriented x3 Psych: COMMON NORMALS: mental status grossly normal Urinary Catheter Management: Kincaid: Cath Placed During This Visit: yes Reason for Continuing Indwelling Catheter: Accurate Measurement of Urinary Output in Critically Ill Patients Urinary Catheter Date of Insertion: 07/02/23 Urinary Catheter Time of Insertion: 03:30 Data 07/13/23 04:49 07/13/23 04:49 A&P Assessment and plan (1) Acute hyperkalemia: (2) Pleural effusion: (3) S/P transmetatarsal amputation of foot: Qualifiers: Laterality: right Qualified Code(s): Z89.431 - Acquired absence of right foot (4) Acute kidney injury superimposed on CKD: (5) CKD (chronic kidney disease): (6) Pulmonary infiltrate present on computed tomography: (7) Non-pressure chronic ulcer of other part of right foot with necrosis of bone: (8) Diabetic neuropathy: (9) Ischemic cardiomyopathy: (10) Systolic heart failure: (11) Elevated hemidiaphragm: (12) Atelectasis, left: (13) Status post amputation of toe of right foot: (14) Atrial flutter: Qualifiers: Atrial flutter type: typical Qualified Code(s): I48.3 - Typical atrial flutter (15) Acute respiratory failure with hypoxia and hypercapnia: (16) NSTEMI (non-ST elevated myocardial infarction): (17) Systolic CHF, acute: (18) Pulmonary edema: (19) Fluid overload: (20) Hyperkalemia: (21) Hypothyroidism: (22) SVT (supraventricular tachycardia): (23) Atrial fibrillation with RVR: (24) PNA (pneumonia): (25) Aspiration into airway: (26) Aspiration pneumonitis: (27) Physical deconditioning: (28) Protein calorie malnutrition: (29) Pneumothorax on right: Plan Plan Pneumothorax, -Repeat chest x-ray does not show any radiographic evidence of recurrence or pneumothorax, ? Currently Thora vent capped, repeat xray at 5pm, then at 7am -hopefully can be removed in 24 hours ?would avoid bipap for now, but if goes in to respiratory failure can resume tonight Right pleural effusion, ? Thora vent in place, ? 1200 mL removed's overall r ?monitor for reexpansion injury, Left pleural effusion will consider thoracocentesis based on clinical progress Acute encephalopathy, secondary to hypercarbia, uremia, resolving ? Currently having hypercarbic encephalopathy, continue bipap, monitor ABG, ? Likely secondary to fluid overload, pulmonary edema ? Monitor mentation closely, ? Neurochecks, aspiration precautions, Acute renal failure, ? With uremia, ? With uremic encephalopathy, ? Monitor urine output, monitor creatinine, ?Status post dialysis catheter replacement, status post dialysis Acute hypoxic hypercarbic respiratory failure, ? Low threshold for intubation, continue ICU monitoring ? Secondary to pulm edema, fluid overload, systolic CHF, pneumonia, aspiration pneumonitis, aspiration into airway ?currently hypercarbic respiratory failure -Holding off on BiPAP, as Thora vent in place ? However if respiratory status worsens overnight, can consider putting back on BiPAP with Thora vent on suction ? Plan, ? Monitor intensive care unit, ? Monitor respiratory status, ? Status post dialysisi ? Monitor creatinine monitor urine output, monitor potassium ? Full code, ? scd for DVT prophylaxis Pneumonia Chest x-ray shows bibasilar atelectasis and/or pneumonitis Highly concerning for aspiration event given his altered mental status, hypotension episode, A-fib with RVR, his choking spells? Continue clear liquids for now Speech therapy eval ? Modified barium swallow and barium swallow today vancomycin on hold due to elevated vancomycin trough at 29.1 aztreonam Aspiration pneumonia, aspiration pneumonitis, aspiration airway, ? Aspiration precautions, small volume feeds, for now clear liquids, ? Modified barium and barium swallow today Acute hypotension, resolved ? Likely secondary to vasovagal event, A-fib with RVR, ? currently off leophed ? Currently midline in place, A-fib with RVR, resolved ? Currently in normal sinus rhythm, resume low-dose metoprolol if blood pressure heart rate will allow, ? It sensitive to amiodarone, had hypotension will avoid for now -eliquis ? Metoprolol 25 twice daily ? In terms of anticoagulant therapy, Eliquis therapy, for history of A-fib, patient and declined Eliquis therapy yesterday and today they are worried about bleeding, especially if he is bleeding from some peripheral wounds on his left leg, discussed the risks and benefits of anticoagulation, benefits including but not limited to to decrease the risk of CVA, they accept the risk of not being on anticoagulation therapy, understand morbidity mortality, shared decision making, for now they are agreeable to aspirin 81 mg, discharge will be discharged on aspirin 81 mg, will switch to Lovenox for DVT prophylaxis 40 mg subcut Systolic CHF, ? Repeat cardiac echo, CONCLUSIONS Limited echo to assess the LV function. Mild concentric LVH. Mildly reduced LV systolic function with hypokinesis of mid anterior and anteroseptal wall segments. Estimated LVEF is mildly reduced 45 to 50%. Aortic valve appears significantly thickened with sclerosis and restricted movements of aortic valve leaflets. However any stenosis or regurgitation was not evaluated during the study. ? As above, NSTEMI, History of CAD, stenting x1, ? Type I versus type II NSTEMI ? Acute respiratory failure, ? Plan, ? Serial EKGs, serial troponins, telemetry monitoring, ? Cardiac echo as above, does show mildly reduced ejection fraction ? Aspirin, statin, ? No chest pain complaints, will continue to monitor, consider stress testing either inpatient versus outpatient depending on clinical progress Acute on chronic kidney disease Creatinine 3.2 Nephro consulted Required temporary dialysis for contrast-induced nephropathy in the past Hyperkalemia, improving ? With underlying CKD, ? Several doses of insulin, D50, Kayexalate have been given, with Lasix as above ? Currently on scheduled Kayexalate Systolic CHF Family not interested in a LifeVest or AICD However EF has improved from 35% to 45% now Patient has bilateral lower extremity swelling Intermittent tachycardia patient receives metoprolol at home Peripheral vascular disease cardiology recommended medical management SVT, status post adenosine, on 07/04/2023 Physical deconditioning, protein calorie malnutrition, consult dietary, PT OT Wound care: Follows up with Dr. Baird once a month Consistent carb diet Sliding scale DVT prophylaxis,aspirin, resume tomorrow morning Patient was examined early this morning, unfortunately overnight, his chest tube was not placed to waterseal, ? I saw him early this morning, no significant fluid output form thoravent, had the nursing staff placed his chest tube to waterseal, ? Currently he is off BiPAP therapy, he is alert awake, following all commands, denies any chest pain, shortness of breath his repeat ABG this morning shows pCO2 at 54.2 and a pH of 7.39, we discussed his chronic hypercarbia, as he continues to develop episodes of hypercarbia I think that he likely will need a chronic BiPAP machine to help with chronic hypercarbic respiratory failure, as whenever we take him off BiPAP, especially during the night, his pCO2 goes up to 100, and he needs BiPAP therapy for 24 to 48 hours to blow off the CO2 I am worried that when he goes home he will continue to have hypercarbic respiratory failure requiring recurrent hospitalizations, I clinically believe that patient will benefit from BiPAP therapy, will order overnight pulse ox ? Patient does have some pitting edema will continue his Lasix therapy, he is on 3 L, advised to fluid restriction therapy, will consider dialysis tomorrow, ? Repeat chest x-ray at 12 PM, shows no significant pneumothorax, his thoravent waterseal was removed by nursing staff and was capped -will repeat cxray at 4pm, watch in icu -reexamined, equal beath sounds bilaterally, no shortness of breath -spoke to general surgery, agreed with above plan, plan on removal of thoravent by general surgery possibly this evening or tomorrow am based on clinical progress -In terms of anticoagulant therapy, Eliquis therapy, for history of A-fib, patient and declined Eliquis therapy yesterday and today they are worried about bleeding, especially if he is bleeding from some peripheral wounds on his left leg, discussed the risks and benefits of anticoagulation, benefits including but not limited to to decrease the risk of CVA, they accept the risk of not being on anticoagulation therapy, understand morbidity mortality, shared decision making, for now they are agreeable to aspirin 81 mg, discharge will be discharged on aspirin 81 mg, will switch to Lovenox for DVT prophylaxis 40 mg subcut Attestations 2 Medical Necessity Statement*: patient requires hospitalization for thoravent management, respiratory failure, pna, deconditioning Coding Level of Care Code Critical Care >/= 30 minutes Critical care time (in minutes): 45 The high probability of a clinically significant, sudden or life threatening deterioration, as referenced in this documentation, required my full and direct attention, intervention and personal management. The critical care time shown is in addition to time spent performing any reported separately billable procedures and includes the following: [x] Data and vital sign review and interpretation [x ] Patient assessment, examination and intervention [x] Medication orders and management [x] Patient/Family updates as able [x] Care Coordination and Documentation. Diagnoses Acute hyperkalemia E87.5 Pleural effusion J90 Status post amputation of right foot through metatarsal bone Z89.431 Laterality: right Acute kidney injury superimposed on CKD N17.9; N18.9 CKD (chronic kidney disease) N18.9 Pulmonary infiltrate present on computed tomography R91.8 Non-pressure chronic ulcer of other part of right foot with necrosis of bone L97.514 Diabetic neuropathy E11.40 Ischemic cardiomyopathy I25.5 Systolic heart failure I50.20 Elevated hemidiaphragm J98.6 Atelectasis, left J98.11 Status post amputation of toe of right foot Z89.421 Typical atrial flutter I48.3 Atrial flutter type: typical Acute respiratory failure with hypoxia and hypercapnia J96.01; J96.02 NSTEMI (non-ST elevated myocardial infarction) I21.4 Systolic CHF, acute I50.21 Pulmonary edema J81.1 Fluid overload E87.70 Hyperkalemia E87.5 Hypothyroidism E03.9 SVT (supraventricular tachycardia) I47.1 Atrial fibrillation with RVR I48.91 PNA (pneumonia) J18.9 Aspiration into airway T17.908A Aspiration pneumonitis J69.0 Physical deconditioning R53.81 Protein calorie malnutrition E46 Pneumothorax on right J93.9
--- NOTE | 2023-07-13 17:00 | XRR_ITS ---
PROCEDURE INFORMATION: Exam: XR Chest Exam date and time: 07/13/2023 6:19 PM Age: 73 years old Clinical indication: Device placement; Patient HX: SOB; Pneumothroax; Chest tube maintenance; Chest tube clamped 1300 TECHNIQUE: Imaging protocol: Radiologic exam of the chest. Views: 1 view. COMPARISON: CR (CHEST, ) 07/13/2023 1:10 PM FINDINGS: Tubes, catheters and devices: Stable right central line. Lungs: Decreased bibasilar opacities with mild residual bibasilar atelectasis and/or infiltrate and/or effusion. Pleural spaces: Stable right chest tube with no obvious residual/recurrent pneumothorax. Heart/Mediastinum: Unremarkable. No cardiomegaly. Bones/joints: Unremarkable. XR/XR chest 1V portable [id number] IMPRESSION: 1. Stable right central line. 2. Stable right chest tube with no obvious residual/recurrent pneumothorax. 3. Decreased bibasilar opacities with mild residual bibasilar atelectasis and/or infiltrate and/or effusion.
[2023-07-13] MEDS: enoxaparin 30 mg/0.3 mL Syringe SUBCUT (17:14)
[2023-07-13 17:28] LABS: Glucose Point of Care 265 mg/dL (70-110)
--- NOTE | 2023-07-13 17:43 | P.PN_ITS ---
Subjective 2 Subjective: Patient seen and examined. He was put on waterseal earlier today. Chest x-ray performed 4 hours later showed no pneumothorax. He has no new complaints. Vitals/I&O/Wt Last Vital Signs Temp 97.7 F 07/15/23 10:00 Pulse 80 07/15/23 12:00 Resp 29 H 07/15/23 12:00 BP 134/70 07/15/23 12:00 Pulse Ox 99 07/15/23 12:00 O2 Del Method Nasal Cannula 07/15/23 12:00 O2 Flow Rate 2 07/15/23 08:00 FiO2 24 07/15/23 07:58 07/14/23 07/15/23 07/15/23 22:59 06:59 14:59 Intake Total 550 / 1270 50 / 1320 236 / 236 Output Total 3131 / 3131 150 / 3281 Balance -2581 / -1861 -100 / -1961 236 / 236 Weight last 48 hrs Weight 217 lb Weight 214 lb 1.102 oz Weight 220 lb Physical Exam 2 Narrative: General: No acute distress, somnolent on BiPAP Respiratory: Equal chest rise bilaterally on BiPAP, Thora vent waterseal without air leak, serous output Urinary Catheter Management: Kincaid: Cath Placed During This Visit: yes Reason for Continuing Indwelling Catheter: Accurate Measurement of Urinary Output in Critically Ill Patients Urinary Catheter Date of Insertion: 07/02/23 Urinary Catheter Time of Insertion: 03:30 Data 07/14/23 03:29 07/14/23 03:29 A&P Assessment and plan (1) Acute kidney injury: (2) Systolic CHF, acute: (3) Fluid overload: (4) Pneumothorax on right: Plan Status post permacath placement Status post right-sided Thoravent placement for Right-sided pneumothorax Thora vent was removed. Repeat chest x-ray in 4 hours. Dressing to remain in place for 48 hours and then remove Hemodialysis per nephrology Medical management per hospitalist Attestations 2 Medical Necessity Statement*: Per primary Coding Level of Care Code 26702 Diagnoses Acute kidney injury N17.9 Systolic CHF, acute I50.21 Fluid overload E87.70 Pneumothorax on right J93.9
--- NOTE | 2023-07-13 18:00 | PC.NURSE ---
surgeon at bedside for removal of thora vent chest tube. received verbal order to have a repeat xray on chest 4 hrs post removal. per dr to not call him if there is no critical findings such as pneumothorax tonight.
--- NOTE | 2023-07-13 19:10 | P.PN_ITS ---
Subjective 2 Subjective: Patient seen bedside this a evening for dressing change of lower extremities. Received a Ortho Claudia whole limb solutions boot to the right lower extremity to facilitate weightbearing and offloading of the transmetatarsal potation site with delayed wound healing. Strikethrough bleeding at left leg dressing. Patient's is bedside. Vitals/I&O/Wt Last Vital Signs Temp 97.6 F 07/13/23 17:24 Pulse 86 07/13/23 18:30 Resp 17 07/13/23 18:30 BP 103/75 07/13/23 18:30 Pulse Ox 98 07/13/23 18:30 O2 Del Method Nasal Cannula 07/13/23 17:24 O2 Flow Rate 3 07/13/23 17:24 FiO2 24 07/12/23 23:04 07/13/23 07/13/23 07/13/23 06:59 14:59 22:59 Intake Total 415 / 1485 587 / 587 286 / 873 Output Total 276 / 376 40 / 40 300 / 340 Balance 139 / 1109 547 / 547 -14 / 533 Weight last 48 hrs Weight 221 lb Physical Exam 2 Narrative: GENERAL: Patient is alert and oriented ?3 and in no acute distress. The following is a focused right lower extremity exam. VASCULAR: Dorsalis pedis and posterior tibial arteries diminished. Delay in capillary refill right transmetatarsal potation stump. Edema to the right lower extremity. NEUROLOGICAL: Protective sensation diminished to light touch. DERMATOLOGICAL: Stable eschar at the plantar lateral aspect of the right transmetatarsal amputation site. No purulence or erythema or warmth. Bilateral feet and leg dependent rubor. Water blisters limited to breakdown of skin x 2 at the left anterior leg. No purulent drainage and no proximal lymphangitic streaking, no soft tissue crepitus. MUSCULOSKELETAL: No pain with posterior calf squeeze. Status post right transmetatarsal amputation. Urinary Catheter Management: Kincaid: Cath Placed During This Visit: yes Reason for Continuing Indwelling Catheter: Acute Urinary Retention or Obstruction Urinary Catheter Date of Insertion: 07/02/23 Urinary Catheter Time of Insertion: 03:30 Data 07/13/23 04:49 07/13/23 04:49 A&P Assessment and plan (1) S/P transmetatarsal amputation of foot: Qualifiers: Laterality: right Qualified Code(s): Z89.431 - Acquired absence of right foot (2) Dehiscence of wound: (3) Diabetic peripheral neuropathy associated with type 2 diabetes mellitus: (4) Leg wound, left: Qualifiers: Encounter type: subsequent encounter Qualified Code(s): S81.802D - Unspecified open wound, left lower leg, subsequent encounter Plan 73-year-old male status post right transmetatarsal amputation with surgical site dehiscence and delayed healing. At this time the right TMA amputation site with wound is stable with a stable eschar, no periwound erythema, there is no warmth or drainage. Right foot wound was dressed at today's visit with silver alginate, 4 inch Kerlix, skin tape, sock covering and white stockinette without compression of the right leg. Left leg has a grade 1 wound at the anterior lateral leg without acute signs of infection. Dressed with silver alginate, 4 inch Kerlix and stockinette. Patient may weight-bear as tolerated with a Ortho Claudia whole limb salvage boot to the right lower extremity and a diabetic shoe with diabetic insert to the left lower extremity. May be weightbearing as tolerated with physical therapy, will require aggressive physical therapy for standing, transferring and walking. Attestations 2 Medical Necessity Statement*: Bilateral lower extremity wound Coding Level of Care Code Acute Code for Chg Fwd Diagnoses Status post amputation of right foot through metatarsal bone Z89.431 Laterality: right Dehiscence of wound T81.30XA Diabetic peripheral neuropathy associated with type 2 diabetes mellitus E11.42 Wound of left lower extremity, subsequent encounter S81.802D Encounter type: subsequent encounter
[2023-07-13 19:24] LABS: Glucose Point of Care 270 mg/dL (70-110)
[2023-07-13] MEDS: aspirin 81 mg EC Tablet PO (20:18)
--- NOTE | 2023-07-13 22:00 | XRR_ITS ---
PROCEDURE INFORMATION: Exam: XR Chest Exam date and time: 07/13/2023 11:24 PM Age: 73 years old Clinical indication: Device placement; Patient HX: Chest tube maintenance; CT removed @ 1800 TECHNIQUE: Imaging protocol: Radiologic exam of the chest. Views: 1 view. COMPARISON: CR (CHEST, ) 07/13/2023 6:19 PM FINDINGS: Tubes, catheters and devices: Stable right central line. Lungs: Stable mild to moderate bibasilar atelectasis and/or infiltrate and/or effusion. Pleural spaces: Right chest tube removal with no obvious residual pneumothorax. Heart/Mediastinum: Stable borderline to mild cardiomegaly. Vasculature: Calcification of the thoracic aorta and/or great vessels consistent with atherosclerotic vessel disease. Bones/joints: Unremarkable. XR/XR chest 1V portable [id number] IMPRESSION: Right chest tube removal with no obvious residual pneumothorax.
[2023-07-14] VITALS (57 sets, daily range): BP systolic 94–172; BP diastolic 50–90; PULSE 76–100; RESP 7–33; TEMP 36.7–36.9; O2SAT 79–99
[2023-07-14 05:09] LABS: Glucose Point of Care 179 mg/dL (70-110)
--- NOTE | 2023-07-14 05:15 | XRR_ITS ---
PROCEDURE INFORMATION: Exam: XR Chest Exam date and time: 07/14/2023 6:23 AM Age: 73 years old Clinical indication: Shortness of breath; Patient HX: C/O returning SOB. RT side thoravent removed last night. TECHNIQUE: Imaging protocol: Radiologic exam of the chest. Views: 1 view. COMPARISON: 1. CR (CHEST, ) 07/13/2023 11:24 PM 2. CR (CHEST, ) 07/13/2023 6:19 PM FINDINGS: Tubes, catheters and devices: Right-sided central venous line noted with the distal tip at the cavoatrial junction. Lungs: Bibasilar consolidation. Persistent small bilateral pleural effusions with probable atelectasis and/or pulmonary edema in the lung bases. Pleural spaces: Blunting of the bilateral costophrenic angles. Heart/Mediastinum: The cardiomediastinal silhouette is within normal limits. Bones/joints: Unremarkable. XR/XR chest 1V portable [id number] IMPRESSION: 1. No significant change from prior exam. 2. No radiographically evident pneumothorax identified.
[2023-07-14 05:34] LABS: Basophils % 0.5 %; Eosinophils # 0.3 10^3/uL (0.0-0.8); Eosinophils % 3.8 %; Hematocrit 36.4 % (37-53); Lymphocytes % 37.5 %; Mean Corpuscular HGB Conc 29.1 g/dL (30-55); Mean Corpuscular Hemoglobin 26.4 pg (27-33); Mean Corpuscular Volume 90.5 fl (82-101); Mean Platelet Volume 10.2 fL (7.4-10.4); Monocytes # 0.5 10^3/uL (0.2-0.9); Neutrophils % 51.8 %; Nucleated Red Blood Cells % 0 %; Platelet Count 248 10^3/cmm (157-399); Red Blood Count 4.02 10^6/uL (3.85-5.65); Red Cell Distribution Width 16.3 % (12.1-15.1); White Blood Count 8.11 10^3/uL (3.29-11.43)
[2023-07-14 05:37] LABS: ABG PH Result 7.32 (7.35-7.45); Arterial Blood Gas Hematocrit 30.1 % (42-52); Base Excess ABG 5.1 mmol/L (-2.0-2.0); Blood Gas Allen Test Pos; Blood Gas Sample Site Radial, right; Blood Gas Sample Type Arterial; Carboxyhemoglobin 1.8 %THgb (0.4-20.1); HCO3 ABG 32.6 mmol/L (22-26); HGB O2 Sat 96.3 % (95-100); Ionized Calcium Level - ABG 1.1 mmol/L (1.1-1.4); Oxygen Device NC; Oxygen Saturation ABG 99.1; PO2 ABG 93.9 mmHg (80.0-100.0); Potassium Level - ABG 4.4 mmol/L (3.5-5.0); Total Hemoglobin 9.8 g/dL (14-18)
[2023-07-14 05:40] LABS: ABG PCO2 63.9 mmHg (35-45)
[2023-07-14] MEDS: aztreonam 1,000 MG in sodium chloride 0.9% (plus) 50 ML 100 MG IV ×2 (05:41→19:22)
[2023-07-14] MEDS: thyroid 60 mg Tablet PO (05:41)
[2023-07-14 06:00] LABS: Procalcitonin 0.65 ng/mL (0-0.5)
[2023-07-14 06:17] LABS: Alanine Aminotransferase 8 U/L (0-41); Alkaline Phosphatase 77 U/L (40-130); Anion Gap 14.5 (5-19); Aspartate Amino Transferase 9 U/L (0-40); C Reactive Protein 24.1 mg/L (0.0-4.9); Calcium 8.4 mg/dL (8.5-10.5); Carbon Dioxide 32 mmol/L (22-29); Chloride 95 mmol/L (98-107); Globulin 1.8 g/dL (1.3-4.6); Glucose 189 mg/dL (65-115); Magnesium 2.4 mg/dL (1.7-2.3); Osmolality Calculated 315 mOsm/kg (285-295); Phosphorus 3.1 mg/dL (2.5-4.5); Potassium 4.5 mmol/L (3.5-5.1); Sodium 137 mmol/L (136-145); Total Bilirubin 0.3 mg/dL (0.15-1.2); Total Protein 5.8 g/dL (6.6-8.7)
[2023-07-14 06:21] LABS: Blood Urea Nitrogen 84 mg/dL (8-23)
[2023-07-14 06:24] LABS: NT Pro B Type Natriuretic Pept 31260 pg/mL (0-125)
[2023-07-14] MEDS: FUROsemide 40 mg Tablet PO ×2 (08:55→18:08)
[2023-07-14] MEDS: insulin lispro 100 unit/1 mL SUBCUT ×4 (08:55→20:24)
[2023-07-14] MEDS: metoprolol tartrate 25 mg Tablet PO ×2 (08:55→20:24)
[2023-07-14] MEDS: thiamine 100 mg Tablet PO (08:55)
[2023-07-14 11:15] LABS: Glucose Point of Care 188 mg/dL (70-110)
--- NOTE | 2023-07-14 12:00 | PC.SOCIAL ---
IMM Update pg 2 of IMM updated and reviewed w/ patient and his . Copy provided and copy dated, initialed and placed in chart.
[2023-07-14] MEDS: epoetin alfa 1000 Unit/0.05 mL (ESRD) 20000 UNIT IVP (16:33)
[2023-07-14] MEDS: heparin, porcine 1,000 unit/mL INJ 10 mL 1000 UNIT IV (16:35)
[2023-07-14 17:23] LABS: Glucose Point of Care 232 mg/dL (70-110)
[2023-07-14 17:40] LABS: Glucose Point of Care 171 mg/dL (70-110)
[2023-07-14] MEDS: enoxaparin 30 mg/0.3 mL Syringe SUBCUT (18:08)
[2023-07-14 20:08] LABS: Glucose Point of Care 259 mg/dL (70-110)
[2023-07-14] MEDS: aspirin 81 mg EC Tablet PO (20:24)
--- NOTE | 2023-07-14 20:42 | P.PN_ITS ---
Subjective 2 Subjective: doing better Medications: Reviewed: Yes Vitals/I&O/Wt Last Vital Signs Temp 98.0 F 07/14/23 19:48 Pulse 85 07/14/23 20:30 Resp 33 H 07/14/23 20:30 BP 142/66 07/14/23 20:30 Pulse Ox 99 07/14/23 20:30 O2 Del Method Nasal Cannula 07/13/23 17:24 O2 Flow Rate 3 07/13/23 17:24 FiO2 24 07/14/23 19:52 07/14/23 07/14/23 07/14/23 06:59 14:59 22:59 Intake Total 50 / 943 720 / 720 50 / 770 Output Total 300 / 300 Balance 50 / 603 720 / 720 -250 / 470 Weight last 48 hrs Weight 99.79 kg Physical Exam 2 Narrative: Awake, mild distress + edema Urinary Catheter Management: Kincaid: Cath Placed During This Visit: yes Reason for Continuing Indwelling Catheter: Accurate Measurement of Urinary Output in Critically Ill Patients Urinary Catheter Date of Insertion: 07/02/23 Urinary Catheter Time of Insertion: 03:30 Data 07/14/23 03:29 07/14/23 03:29 A&P Assessment and plan (1) Acute kidney injury superimposed on CKD: Plan 1. Acute on chronic kidney disease stage III: Baseline creatinine is in the mid 1 range, had prior SALLY requiring temporary hemodialysis due to contrast nephropathy -Patient presented with SALLY with a creatinine of 3.5 on presentation likely prerenal/ATN. Nonoliguric. no improvement in renal function - has volume overload , rising BUN , and low UOP ,, - inititated HD for volume management , s/p 2 sessions , next HD today - Arrange out pt HD 2. Hyperkalemia:, low K diet, improved 3. Hypernatremia ,improving 4. History of CHF, with low ejection fraction 35 to 45%, 5. History of peripheral vascular disease and right TMA in the past 6. Metabolic alkalosis - contraction alkalosis ,stable Patient evaluated using audiovisual cart. Time spent 20minutes. Attestations 2 Medical Necessity Statement*: per lucy Coding Level of Care Code Acute Code for Chg Fwd Diagnoses Acute kidney injury superimposed on CKD N17.9; N18.9
--- NOTE | 2023-07-14 22:30 | P.PN_ITS ---
Vitals/I&O/Wt Last Vital Signs Temp 98.1 F 07/14/23 20:46 Pulse 78 07/14/23 22:00 Resp 30 H 07/14/23 22:00 BP 126/60 07/14/23 22:00 Pulse Ox 96 07/14/23 22:00 O2 Del Method Nasal Cannula 07/13/23 17:24 O2 Flow Rate 3 07/13/23 17:24 FiO2 24 07/14/23 19:52 07/14/23 07/14/23 07/14/23 06:59 14:59 22:59 Intake Total 50 / 943 720 / 720 550 / 1270 Output Total 3131 / 3131 Balance 50 / 603 720 / 720 -2581 / -1861 Weight last 48 hrs Weight 97.1 kg Weight 99.79 kg Physical Exam 2 Const: GENERAL APPEARANCE: cooperative, comfortable and ill appearing N UTRITIONAL APPEARANCE: obese ORIENTATION/CONSCIOUSNESS: Yes awake, Yes oriented to person, Yes oriented to place and Yes oriented to time HENMT: COMMON NORMALS: normocephalic, atraumatic and external ears normal H EAD & SCALP: normal to inspection, normocephalic and atraumatic EXTERNAL EAR: Yes external ears normal MOUTH: Normal oral and palatal mucosa present T HROAT: posterior oropharynx normal Eye: COMMON NORMALS: Equal, round and reactive pupils present and conjunctivae normal CONJUNCTIVA: Yes conjunctivae normal PUPIL: Yes Equal, round and reactive pupils present EOM: No EOM abnormal Neck/C-Spine: COMMON NORMALS: Thyroid normal GENERAL: Yes normal visual inspection and Yes trachea midline THYROID: Thyroid normal CAROTIDS: No bruit Lymph: LYMPHATIC: No lymphadenopathy Resp: OTHER: Bilateral crackles and diminishing breath sounds bilaterally from mid to lower lung west. Cardio: OTHER: Irregular rate and rhythm, with no gallops, clicks, or rubs. Patient has 1/6 systolic murmurs in all 4 valves. GI: OTHER: Bowel sounds positive. Nontender, nondistended, no guarding, no rigidity, no rebound tenderness, and no hepatosplenomegaly appreciated on palpation. Extremity: NARRATIVE EXTREMITY EXAM: R. foot in a boot, L. foot wrapped by Dr. Baird GENERAL: No clubbing and No cyanosis Neuro: SENSORIUM/ORIENTATION: Yes oriented to person, Yes oriented to place and Yes oriented to time CRANIAL NERVES: Yes CN normal except as noted S PEECH: speech normal MOTOR EXAM: Normal motor muscle tone present throughout Psych: COMMON NORMALS: Normal thought process present and speech normal A PPEARANCE: Yes grossly normal ATTITUDE: Yes calm and Yes engaged A CTIVITY/MOTOR BEHAVIOR: Yes appropriate eye contact SPEECH: Yes normal speech MOOD & AFFECT: Yes euthymic mood THOUGHT PROCESS: Normal thought process present THOUGHT CONTENT: Yes Normal thought content present A TTENTION/CONCENTRATION: Yes attention grossly intact Skin: NARRATIVE SKIN EXAM: No rashes lesions or wounds on the skin except as noted above on the legs. Urinary Catheter Management: Kincaid: Cath Placed During This Visit: yes Reason for Continuing Indwelling Catheter: Accurate Measurement of Urinary Output in Critically Ill Patients Urinary Catheter Date of Insertion: 07/02/23 Urinary Catheter Time of Insertion: 03:30 Data 07/14/23 03:29 07/14/23 03:29 A&P Assessment and plan (1) Atrial fibrillation with RVR: (2) Acute HFrEF (heart failure with reduced ejection fraction): (3) Acute hyperkalemia: (4) ESRD on hemodialysis: (5) NSTEMI (non-ST elevated myocardial infarction): (6) Acute kidney injury superimposed on CKD: Plan Mr. 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 Baird for fever, chills, rigors noted in clinic and was admitted for hyperkalemia (K+ of 6.7), SALLY on CKDIII. BCx were drawn and Nephrology was consulted. On admission, 07/02, he went into acute hypoxic, hypercapneic respiratory failure requiring BiPAP, due to Pulmonary Edema caused by Acute onset HFrEF. A TTE was done that showed an EF of 45-50% w/ hypokinesis of the mid-anterior and anteroseptal wall segments. He went into Afib w/ RVR on 07/04/2023 and was diuresed on the floor. He went into Acute hypercapneic resp. failure on 07/08 due to increasing vol overload in the setting of worsening renal fxn. He was transferred to the ICU again and placed on BiPAP. A. perm cath was plced on 07/10/2023 and it was complicated by a R. sided Pneumothorax requiring chest tube placement that was d/c'ed on 07/13. He initiated HD on 07/10. #Acute Encephalopathy #Acute hypoxic hypercapneic respiratory failure #b/l pneumonia vs pneumonitis: On Vanc/Aztreonam - Will find out from Nephrology if CT chest can be obtained. #R. Pleural effusion - On abx for up to 10 days. It is unclear whether he #NSTEMI (Type I vs Type II): On Aspirin, Statin #Acute on chronic HFrEF. #Afib w/ RVR: Patient's declining Eliquis #PVD - On Aspirin, STatin #SALLY on CKDIII --> ESRD on HD via R. IJ perm cath - Contact Home Service Consultant to see whether she is ok w/ the patient getting CT w/ contrast. #Hyponatremia #Hyperkalemia - Managed w/ HD. #Hypothyroidism - Resum [place] Thyroid #IDDM2: On moderate dose sliding scale. #R. TMA wound #L. LE leg wound due to #Chronic venous insufficiency - Managed by [facility] Dr. Baird DVT ppx: On Lovenox Attestations 2 Medical Necessity Statement*: Patient needing dialysis chair, evaluation of pneumonia, and NSTEMI Coding Level of Care Code 63841 Diagnoses Atrial fibrillation with RVR I48.91 Acute HFrEF (heart failure with reduced ejection fraction) I50.21 Acute hyperkalemia E87.5 ESRD on hemodialysis N18.6; Z99.2 NSTEMI (non-ST elevated myocardial infarction) I21.4 Acute kidney injury superimposed on CKD N17.9; N18.9
[2023-07-15] VITALS (54 sets, daily range): BP systolic 109–167; BP diastolic 57–109; PULSE 76–109; RESP 10–35; TEMP 36.5–36.9; O2SAT 76–100
[2023-07-15] MEDS: aztreonam 1,000 MG in sodium chloride 0.9% (plus) 50 ML 100 MG IV ×2 (05:11→17:04)
[2023-07-15] MEDS: thyroid 60 mg Tablet PO (05:11)
[2023-07-15 07:52] LABS: Glucose Point of Care 194 mg/dL (70-110)
[2023-07-15] MEDS: insulin lispro 100 unit/1 mL SUBCUT ×4 (08:10→20:21)
[2023-07-15] MEDS: metoprolol tartrate 25 mg Tablet PO ×2 (08:10→20:21)
[2023-07-15] MEDS: FUROsemide 40 mg Tablet PO ×2 (08:10→17:05)
[2023-07-15] MEDS: thiamine 100 mg Tablet PO (08:10)
[2023-07-15] MEDS: acetaminophen 500 mg Tablet PO ×2 (09:05→14:29)
[2023-07-15 11:12] LABS: Glucose Point of Care 214 mg/dL (70-110)
--- NOTE | 2023-07-15 12:37 | P.PN_ITS ---
Subjective 2 Subjective: feels better Medications: Reviewed: Yes Vitals/I&O/Wt Last Vital Signs Temp 97.7 F 07/15/23 10:00 Pulse 80 07/15/23 12:00 Resp 29 H 07/15/23 12:00 BP 134/70 07/15/23 12:00 Pulse Ox 99 07/15/23 12:00 O2 Del Method Nasal Cannula 07/15/23 12:00 O2 Flow Rate 2 07/15/23 08:00 FiO2 24 07/15/23 07:58 07/14/23 07/15/23 07/15/23 22:59 06:59 14:59 Intake Total 550 / 1270 50 / 1320 236 / 236 Output Total 3131 / 3131 150 / 3281 Balance -2581 / -1861 -100 / -1961 236 / 236 Weight last 48 hrs Weight 98.43 kg Weight 97.1 kg Weight 99.79 kg Physical Exam 2 Narrative: Awake, mild distress + edema Urinary Catheter Management: Kincaid: Cath Placed During This Visit: yes Reason for Continuing Indwelling Catheter: Accurate Measurement of Urinary Output in Critically Ill Patients Urinary Catheter Date of Insertion: 07/02/23 Urinary Catheter Time of Insertion: 03:30 Data 07/14/23 03:29 07/14/23 03:29 A&P Assessment and plan (1) Acute kidney injury superimposed on CKD: Plan 1. Acute on chronic kidney disease stage III: Baseline creatinine is in the mid 1 range, had prior SALLY requiring temporary hemodialysis due to contrast nephropathy -Patient presented with SALLY with a creatinine of 3.5 on presentation likely prerenal/ATN. Nonoliguric. no improvement in renal function - has volume overload , rising BUN , and low UOP ,, - inititated HD for volume management , s/p 2 sessions , next HD tomorrow - Arrange out pt HD 2. Hyperkalemia:, low K diet, improved 3. Hypernatremia ,improved 4. History of CHF, with low ejection fraction 35 to 45%, 5. History of peripheral vascular disease and right TMA in the past 6. Metabolic alkalosis - contraction alkalosis ,stable Patient evaluated using audiovisual cart. Time spent 20minutes. Attestations 2 Medical Necessity Statement*: per medicine Coding Level of Care Code Acute Code for Chg Fwd Diagnoses Acute kidney injury superimposed on CKD N17.9; N18.9
[2023-07-15] MEDS: enoxaparin 30 mg/0.3 mL Syringe SUBCUT (17:04)
--- NOTE | 2023-07-15 17:08 | P.PN_ITS ---
Subjective 2 Subjective: Patient seen this a evening for dressing change of bilateral lower extremity. Patient is sitting up in his chair. Patient's is bedside. Vitals/I&O/Wt Last Vital Signs Temp 97.7 F 07/15/23 10:00 Pulse 84 07/15/23 14:36 Resp 24 H 07/15/23 14:00 BP 163/74 07/15/23 14:00 Pulse Ox 93 07/15/23 13:30 O2 Del Method Nasal Cannula 07/15/23 13:30 O2 Flow Rate 2 07/15/23 08:00 FiO2 24 07/15/23 07:58 07/15/23 07/15/23 07/15/23 06:59 14:59 22:59 Intake Total 50 / 1320 476 / 476 Output Total 150 / 3281 Balance -100 / -1961 476 / 476 Weight last 48 hrs Weight 217 lb Weight 214 lb 1.102 oz Weight 220 lb Physical Exam 2 Narrative: GENERAL: Patient is alert and oriented ?3 and in no acute distress. The following is a focused right lower extremity exam. VASCULAR: Dorsalis pedis and posterior tibial arteries diminished. Delay in capillary refill right transmetatarsal potation stump. Edema to the right lower extremity. NEUROLOGICAL: Protective sensation diminished to light touch. DERMATOLOGICAL: Stable eschar at the plantar lateral aspect of the right transmetatarsal amputation site. No purulence or erythema or warmth. Bilateral feet and leg dependent rubor. Water blisters limited to breakdown of skin x 2 at the left anterior leg. No purulent drainage and no proximal lymphangitic streaking, no soft tissue crepitus. MUSCULOSKELETAL: No pain with posterior calf squeeze. Status post right transmetatarsal amputation. Urinary Catheter Management: Kincaid: Cath Placed During This Visit: yes Reason for Continuing Indwelling Catheter: Accurate Measurement of Urinary Output in Critically Ill Patients Urinary Catheter Date of Insertion: 07/02/23 Urinary Catheter Time of Insertion: 03:30 Data 07/14/23 03:29 07/14/23 03:29 A&P Assessment and plan (1) S/P transmetatarsal amputation of foot: Qualifiers: Laterality: right Qualified Code(s): Z89.431 - Acquired absence of right foot (2) Dehiscence of wound: (3) Diabetic peripheral neuropathy associated with type 2 diabetes mellitus: (4) Leg wound, left: Qualifiers: Encounter type: subsequent encounter Qualified Code(s): S81.802D - Unspecified open wound, left lower leg, subsequent encounter Plan 73-year-old male status post right transmetatarsal amputation with surgical site dehiscence and delayed healing. At this time the right TMA amputation site with wound is stable with a stable eschar, no periwound erythema, there is no warmth or drainage. Right foot wound was dressed at today's visit with silver alginate, 4 inch Kerlix, skin tape, sock covering and white stockinette without compression of the right leg. Left leg has a grade 1 wound at the anterior lateral leg without acute signs of infection. Dressed with silver alginate, 4 inch Kerlix and stockinette. Patient may weight-bear as tolerated with a Ortho Claudia whole limb salvage boot to the right lower extremity and a diabetic shoe with diabetic insert to the left lower extremity. May be weightbearing as tolerated with physical therapy, will require aggressive physical therapy for standing, transferring and walking. Attestations 2 Medical Necessity Statement*: Bilateral lower extremity wound Coding Level of Care Code Acute Code for Chg Fwd Diagnoses Status post amputation of right foot through metatarsal bone Z89.431 Laterality: right Dehiscence of wound T81.30XA Diabetic peripheral neuropathy associated with type 2 diabetes mellitus E11.42 Wound of left lower extremity, subsequent encounter S81.802D Encounter type: subsequent encounter
[2023-07-15 17:43] LABS: Glucose Point of Care 300 mg/dL (70-110)
[2023-07-15 19:32] LABS: Glucose Point of Care 303 mg/dL (70-110)
[2023-07-15] MEDS: aspirin 81 mg EC Tablet PO (20:21)
--- NOTE | 2023-07-15 21:16 | CTR_ITS ---
PROCEDURE INFORMATION: Exam: CT Chest With Contrast; Diagnostic Exam date and time: 07/15/2023 10:04 PM Age: 73 years old Clinical indication: Abnormal findings; Abnormal radiologic exam of lung or chest; Additional info: Consolidation vs atelectasis on cxr. TECHNIQUE: Imaging protocol: Diagnostic computed tomography of the chest with contrast. Radiation optimization: All CT scans at this facility use at least one of these dose optimization techniques: automated exposure control; mA and/or kV adjustment per patient size (includes targeted exams where dose is matched to clinical indication); or iterative reconstruction. Contrast material: OMNI 350; Contrast volume: 80 ml; Contrast route: INTRAVENOUS (IV); REPORTING DATA: Count of CT and Cardiac NM exams in prior 12 months: This patient has received 3 known CTs and 0 known cardiac nuclear medicine studies in the 12 months prior to the current study. COMPARISON: CT chest wo con [id number] 07/01/2023 6:24 PM RADIATION DOSE METRICS: Total DLP (mGy-cm): 793.67 FINDINGS: Lungs: Patchy bilateral dependent airspace infiltrates . Pleural spaces: Moderate to large right and small left pleural effusion. Heart: Cardiomegaly. Coronary arteries: Coronary artery atherosclerotic calcifications. Lymph nodes: Unremarkable. No enlarged lymph nodes. Vasculature: Unremarkable. No aortic aneurysm. Gallbladder and bile ducts: Cholecystectomy. Bones/joints: Unremarkable. No acute fracture. Soft tissues: Unremarkable. CT/CT chest w con* [id number] IMPRESSION: 1. Negative for pulmonary embolus. 2. Moderate to large right and small left pleural effusion. 3. Cardiomegaly. 4. Coronary artery atherosclerotic calcifications. 5. Cholecystectomy. 6. Patchy bilateral dependent airspace infiltrates .
--- NOTE | 2023-07-15 21:29 | PM.PN ---
Subjective Subjective: He says he had a good day. He had 3 BMs w/ the milk of magnesia today. He walked w/ PT. He denies SOB, CP, palpitations, headaches, dizziness, light headedness, fever, chills, abdominal pain,n/v. no symptoms. Per night nurse, the patient states that he had such a good day that he does not want to wear his BiPAP at night. I spoke w/ the Telephone Information Supervisor via telecommunication and she mentioned that the patient is New ESRD, and that it is ok to obtain CT chest w/ contrast. Vitals/I&O/Wt Last Vital Signs Temp 97.7 F 07/15/23 10:00 Pulse 88 07/15/23 20:30 Resp 16 07/15/23 20:30 BP 147/74 07/15/23 20:30 Pulse Ox 100 07/15/23 20:30 O2 Del Method Nasal Cannula 07/15/23 19:48 O2 Flow Rate 2 07/15/23 19:48 FiO2 24 07/15/23 07:58 07/15/23 07/15/23 07/15/23 06:59 14:59 22:59 Intake Total 50 / 1320 476 / 476 50 / 526 Output Total 150 / 3281 150 / 150 Balance -100 / -1961 476 / 476 -100 / 376 Weight last 48 hrs Weight 98.43 kg Weight 97.1 kg Weight 99.79 kg Physical Exam Const: GENERAL APPEARANCE: cooperative, comfortable and ill appearing NUTRITIONAL APPEARANCE: obese ORIENTATION/CONSCIOUSNESS: Yes awake, Yes oriented to person, Yes oriented to place and Yes oriented to time HENMT: COMMON NORMALS: normocephalic, atraumatic and external ears normal HEAD & SCALP: normal to inspection, normocephalic and atraumatic EXTERNAL EAR: Yes external ears normal MOUTH: Normal oral and palatal mucosa present THROAT: posterior oropharynx normal Eye: COMMON NORMALS: Equal, round and reactive pupils present and conjunctivae normal CONJUNCTIVA: Yes conjunctivae normal PUPIL: Yes Equal, round and reactive pupils present EOM: No EOM abnormal Neck/C-Spine: COMMON NORMALS: Thyroid normal GENERAL: Yes normal visual inspection and Yes trachea midline THYROID: Thyroid normal CAROTIDS: No bruit Lymph: LYMPHATIC: No lymphadenopathy Resp: OTHER: diminishing breath sounds bilaterally from mid to lower lung west to the point that it is virtually absent in the b/l lower lung west. Cardio: OTHER: Irregular rate and rhythm, with no gallops, clicks, or rubs. Patient has 2/6 systolic murmurs in all 4 valves. GI: OTHER: Bowel sounds positive. Nontender, nondistended, no guarding, no rigidity, no rebound tenderness, and no hepatosplenomegaly appreciated on palpation. Extremity: NARRATIVE EXTREMITY EXAM: R. foot in a boot, L. foot wrapped by Dr. Baird GENERAL: No clubbing and No cyanosis Neuro: SENSORIUM/ORIENTATION: Yes oriented to person, Yes oriented to place and Yes oriented to time CRANIAL NERVES: Yes CN normal except as noted SPEECH: speech normal MOTOR EXAM: Normal motor muscle tone present throughout Psych: COMMON NORMALS: Normal thought process present and speech normal APPEARANCE: Yes grossly normal ATTITUDE: Yes calm and Yes engaged ACTIVITY/MOTOR BEHAVIOR: Yes appropriate eye contact SPEECH: Yes normal speech MOOD & AFFECT: Yes euthymic mood THOUGHT PROCESS: Normal thought process present THOUGHT CONTENT: Yes Normal thought content present ATTENTION/CONCENTRATION: Yes attention grossly intact Skin: NARRATIVE SKIN EXAM: No rashes lesions or wounds on the skin except as noted above on the legs. Urinary Catheter Management: Kincaid: Cath Placed During This Visit: yes Reason for Continuing Indwelling Catheter: Accurate Measurement of Urinary Output in Critically Ill Patients Urinary Catheter Date of Insertion: 07/02/23 Urinary Catheter Time of Insertion: 03:30 Data 07/14/23 03:29 07/14/23 03:29 A&P Assessment and plan (1) Atrial fibrillation with RVR: (2) Acute HFrEF (heart failure with reduced ejection fraction): (3) Acute hyperkalemia: (4) ESRD on hemodialysis: (5) NSTEMI (non-ST elevated myocardial infarction): (6) Acute kidney injury superimposed on CKD: Plan Mr. 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 Baird for fever, chills, rigors noted in clinic and was admitted on 07/01/2023 for hyperkalemia (K+ of 6.7), SALLY on CKDIII. BCx were drawn and Nephrology was consulted. On admission, 07/02, he went into acute hypoxic, hypercapneic respiratory failure requiring BiPAP, due to Pulmonary Edema caused by Acute onset HFrEF. A TTE was done that showed an EF of 45-50% w/ hypokinesis of the mid-anterior and anteroseptal wall segments. He went into Afib w/ RVR on 07/04/2023 and was diuresed on the floor. He went into Acute hypercapneic resp. failure on 07/08 due to increasing vol overload in the setting of worsening renal fxn. He was transferred to the ICU again and placed on BiPAP. A. perm cath was plced on 07/10/2023 and it was complicated by a R. sided Pneumothorax requiring chest tube placement that was d/c'ed on 07/13. He initiated HD on 07/10. An overnight study to qualify him for BiPAP was attempted, and per case mgmt, he qualified by ABG, but his desaturations were monitored for only 3 minutes instead of 5 minutes. #Acute Encephalopathy #Acute hypoxic hypercapneic respiratory failure on Intermittent BiPAP including at night. #b/l pneumonia vs pneumonitis: On Vanc/Aztreonam. Vanc d/c'ed on 07/10. On Aztreonam since 07/05/2023 - Per Nephrology, ok to obtain CT chest w/ contrast, so will order CT cheset. #R. Pleural effusion - Will get CT chest and f/u accordingly. #NSTEMI (Type I vs Type II): On Aspirin, Statin. Will consult Cardiology in the AM. #Acute on chronic HFrEF. #Afib w/ RVR: Patient's declining Eliquis #PVD - On Aspirin, Statin #SALLY on CKDIII --> ESRD on HD via R. IJ perm cath - Contact Telephone Information Supervisor to see whether she is ok w/ the patient getting CT w/ contrast. #Hyponatremia #Hyperkalemia - Managed w/ HD. #Hypothyroidism - [place] Thyroid #IDDM2: On moderate dose sliding scale. It was switched to Lantus 10units daily w/ low dose sliding scale insulin, low dose b/c the patient's nurse was worried that the patient had had episodes of hypoglycemia on the moderate SSI. #R. TMA wound #L. LE leg wound due to #Chronic venous insufficiency - Managed by [facility] Dr. Baird #Constipation: Improved w/ bowel regimen DVT ppx: On Lovenox Attestations Medical Necessity Statement*: He needs to remain hospitalized for dialysis chair and to better evaluate his lung etiology Coding Level of Care Code 78845 Diagnoses Atrial fibrillation with RVR I48.91 Acute HFrEF (heart failure with reduced ejection fraction) I50.21 Acute hyperkalemia E87.5 ESRD on hemodialysis N18.6; Z99.2 NSTEMI (non-ST elevated myocardial infarction) I21.4 Acute kidney injury superimposed on CKD N17.9; N18.9
[2023-07-15] MEDS: iohexol 350 mg/mL 500 mL Btl (per mL) IV (22:08)
[2023-07-16] VITALS (54 sets, daily range): BP systolic 97–181; BP diastolic 53–109; PULSE 84–122; RESP 1–34; TEMP 36.4–37.1; O2SAT 84–100
[2023-07-16] MEDS: thyroid 60 mg Tablet PO (05:33)
[2023-07-16] MEDS: aztreonam 1,000 MG in sodium chloride 0.9% (plus) 50 ML 100 MG IV ×2 (05:33→17:24)
[2023-07-16] MEDS: insulin glargine 100 units/1 mL 10 UNIT SUBCUT (05:48)
[2023-07-16 06:10] LABS: Glucose Point of Care 225 mg/dL (70-110)
--- NOTE | 2023-07-16 07:10 | P.PN_ITS ---
Subjective 2 Subjective: no new complaints Medications: Reviewed: Yes Vitals/I&O/Wt Last Vital Signs Temp 97.7 F 07/15/23 10:00 Pulse 117 H 07/16/23 06:30 Resp 21 H 07/16/23 06:30 BP 160/70 07/16/23 06:30 Pulse Ox 97 07/16/23 06:30 O2 Del Method Nasal Cannula 07/15/23 19:48 O2 Flow Rate 2 07/15/23 19:48 FiO2 24 07/16/23 04:00 07/15/23 07/16/23 07/16/23 22:59 06:59 14:59 Intake Total 50 / 526 50 / 576 Output Total 150 / 150 Balance -100 / 376 50 / 426 Weight last 48 hrs Weight 98.883 kg Weight 98.43 kg Weight 97.1 kg Physical Exam 2 Narrative: Awake, alert , no distress S1S2 RRR per report + edema Urinary Catheter Management: Kincaid: Cath Placed During This Visit: yes Reason for Continuing Indwelling Catheter: Accurate Measurement of Urinary Output in Critically Ill Patients Urinary Catheter Date of Insertion: 07/02/23 Urinary Catheter Time of Insertion: 03:30 Data 07/14/23 03:29 07/14/23 03:29 A&P Assessment and plan (1) Acute kidney injury superimposed on CKD: Plan 1. Acute on chronic kidney disease stage III: Baseline creatinine is in the mid 1 range, had prior SALLY requiring temporary hemodialysis due to contrast nephropathy -Patient presented with SALLY with a creatinine of 3.5 on presentation likely prerenal/ATN. Nonoliguric. no improvement in renal function - has volume overload , rising BUN , and low UOP ,, - inititated HD for volume management , , next HD today - Arrange out pt HD 2. Hyperkalemia:, low K diet, improved 3. Hypernatremia ,improved 4. History of CHF, with low ejection fraction 35 to 45%, 5. History of peripheral vascular disease and right TMA in the past 6. Metabolic alkalosis - contraction alkalosis ,stable Patient evaluated using audiovisual cart. Time spent 20minutes. Attestations 2 Medical Necessity Statement*: per lucy Coding Level of Care Code Acute Code for Chg Fwd Diagnoses Acute kidney injury superimposed on CKD N17.9; N18.9
[2023-07-16 07:27] LABS: Glucose Point of Care 238 mg/dL (70-110)
[2023-07-16] MEDS: FUROsemide 40 mg Tablet PO (07:52)
[2023-07-16] MEDS: insulin lispro 100 unit/1 mL SUBCUT ×4 (07:52→21:27)
[2023-07-16] MEDS: thiamine 100 mg Tablet PO (07:52)
[2023-07-16] MEDS: metoprolol tartrate 25 mg Tablet PO ×2 (07:52→21:27)
--- NOTE | 2023-07-16 09:37 | US_ITS ---
WS: [id number] ULTRASOUND-GUIDED THORACENTESIS, RIGHT HISTORY: RIGHT pleural effusion. Procedure, risks, and complications were explained to the patient. With the patient in an upright pos ition, the skin over the RIGHT posterior thorax was cleansed with ChloraPrep and anesthetized with 1% buffered lidocaine. A 5 Malay Yueh needle is inserted into the pleural fluid without complication. Approximately 900 cc of red-tinged pleural fluid is removed without difficulty. Fluid specimen also collected for analysis. IMPRESSION: 1. RIGHT thoracentesis yielding 900 cc of fluid. 2. Chest radiograph to follow to evaluate for pneumothorax.
--- NOTE | 2023-07-16 10:26 | P.PN_ITS ---
Subjective 2 Subjective: He was seen after he walked with PT. He walked twice the distance w/ PT. He has no complaints today. He denies fever, chills, shortness of breath, chest pain, palpitations, dizziness, lightheadedness. His is worried about the bruising on his right chest wall and R. axillary region that occurred as a result of the chest tube placed in him. We also discussed the new baseline that he is now ESRD. We discussed that the patient's and the patient keeps declining Eliquis. The patient's stated that the patient tends to bruise more easily with Eliquis; furthermore, she feels that he has no energy when he is on Eliquis. I mentioned the option of warfarin, given that he has atrial fibrillation. We told her that I would defer to discussion of anticoagulation to cardiology, but it should probably be considered. I also informed him of the bilateral right greater than left pleural effusions in his lungs, and informed them that I would be ordering a thoracentesis. Per radiology, they will do a thoracentesis today instead of tomorrow. Vitals/I&O/Wt Last Vital Signs Temp 98.7 F 07/16/23 08:08 Pulse 122 H 07/16/23 08:21 Resp 18 07/16/23 08:21 BP 160/70 07/16/23 06:30 Pulse Ox 100 07/16/23 08:21 O2 Del Method Nasal Cannula 07/16/23 08:21 O2 Flow Rate 2 07/16/23 08:21 FiO2 24 07/16/23 04:00 07/15/23 07/16/23 07/16/23 22:59 06:59 14:59 Intake Total 50 / 526 50 / 576 Output Total 150 / 150 Balance -100 / 376 50 / 426 Weight last 48 hrs Weight 98.883 kg Weight 98.43 kg Weight 97.1 kg Physical Exam 2 Const: GENERAL APPEARANCE: cooperative, comfortable and ill appearing N UTRITIONAL APPEARANCE: obese ORIENTATION/CONSCIOUSNESS: Yes awake, Yes oriented to person, Yes oriented to place and Yes oriented to time HENMT: COMMON NORMALS: normocephalic, atraumatic and external ears normal H EAD & SCALP: normal to inspection, normocephalic and atraumatic EXTERNAL EAR: Yes external ears normal MOUTH: Normal oral and palatal mucosa present T HROAT: posterior oropharynx normal Eye: COMMON NORMALS: Equal, round and reactive pupils present and conjunctivae normal CONJUNCTIVA: Yes conjunctivae normal PUPIL: Yes Equal, round and reactive pupils present EOM: No EOM abnormal Neck/C-Spine: COMMON NORMALS: Thyroid normal GENERAL: Yes normal visual inspection and Yes trachea midline THYROID: Thyroid normal CAROTIDS: No bruit Lymph: LYMPHATIC: No lymphadenopathy Resp: OTHER: diminishing breath sounds bilaterally from mid to lower lung west to the point that it is virtually absent in the b/l lower lung west. Cardio: OTHER: Irregular rate and rhythm, with no gallops, clicks, or rubs. Patient has 2/6 systolic murmurs in all 4 valves. GI: OTHER: Bowel sounds positive. Nontender, nondistended, no guarding, no rigidity, no rebound tenderness, and no hepatosplenomegaly appreciated on palpation. Extremity: NARRATIVE EXTREMITY EXAM: R. foot in a boot, L. foot wrapped by Dr. Baird GENERAL: No clubbing and No cyanosis Neuro: SENSORIUM/ORIENTATION: Yes oriented to person, Yes oriented to place and Yes oriented to time CRANIAL NERVES: Yes CN normal except as noted S PEECH: speech normal MOTOR EXAM: Normal motor muscle tone present throughout Psych: COMMON NORMALS: Normal thought process present and speech normal A PPEARANCE: Yes grossly normal ATTITUDE: Yes calm and Yes engaged A CTIVITY/MOTOR BEHAVIOR: Yes appropriate eye contact SPEECH: Yes normal speech MOOD & AFFECT: Yes euthymic mood THOUGHT PROCESS: Normal thought process present THOUGHT CONTENT: Yes Normal thought content present A TTENTION/CONCENTRATION: Yes attention grossly intact Skin: NARRATIVE SKIN EXAM: No rashes lesions or wounds on the skin except as noted above on the legs. Urinary Catheter Management: Kincaid: Cath Placed During This Visit: yes Reason for Continuing Indwelling Catheter: Accurate Measurement of Urinary Output in Critically Ill Patients Urinary Catheter Date of Insertion: 07/02/23 Urinary Catheter Time of Insertion: 03:30 Data 07/17/23 03:30 07/17/23 03:30 A&P Assessment and plan (1) Atrial fibrillation with RVR: (2) Acute HFrEF (heart failure with reduced ejection fraction): (3) Acute hyperkalemia: (4) ESRD on hemodialysis: (5) NSTEMI (non-ST elevated myocardial infarction): (6) Acute kidney injury superimposed on CKD: Plan Mr. 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 Baird for fever, chills, rigors noted in clinic and was admitted on 07/01/2023 for hyperkalemia (K+ of 6.7), SALLY on CKDIII. BCx were drawn and Nephrology was consulted. On admission, 07/02, he went into acute hypoxic, hypercapneic respiratory failure requiring BiPAP, due to Pulmonary Edema caused by Acute onset HFrEF. A TTE was done that showed an EF of 45-50% w/ hypokinesis of the mid-anterior and anteroseptal wall segments. He went into Afib w/ RVR on 07/04/2023 and was diuresed on the floor. He went into Acute hypercapneic resp. failure on 07/08 due to increasing vol overload in the setting of worsening renal fxn. He was transferred to the ICU again and placed on BiPAP. A. perm cath was plced on 07/10/2023 and it was complicated by a R. sided Pneumothorax requiring chest tube placement that was d/c'ed on 07/13. He initiated HD on 07/10. An overnight study to qualify him for BiPAP was attempted, and per case mgmt, he qualified by ABG, but his desaturations were monitored for only 3 minutes instead of 5 minutes. #Acute Encephalopathy #Acute hypoxic hypercapneic respiratory failure on Intermittent BiPAP including at night. #b/l pneumonia vs pneumonitis: On Vanc/Aztreonam. Vanc d/c'ed on 07/10. On Aztreonam since 07/05/2023 - Per Nephrology, ok to obtain CT chest w/ contrast, so will order CT cheset. #R.>>L Pleural effusion - CT chest shows b/l interstitial opacities concerning for pneumonia as well as b/l >L pleural effusion. Thoracentesis w/ pleural fluid labs ordered on 07/16/2023 #NSTEMI (Type I vs Type II): On Aspirin, Statin. Will consult Cardiology. #Acute on chronic HFrEF. #Afib w/ RVR: Patient's declining Eliquis #PVD - On Aspirin, Statin #SALLY on CKDIII --> ESRD on HD via R. IJ perm cath - Contact [employer] to see whether she is ok w/ the patient getting CT w/ contrast. #Hyponatremia #Hyperkalemia - Managed w/ HD. #Hypothyroidism - ResumeArmour Thyroid #IDDM2: On moderate dose sliding scale. It was switched to Lantus 10units daily w/ low dose sliding scale insulin, low dose b/c the patient's nurse was worried that the patient had had episodes of hypoglycemia on the moderate SSI. #R. TMA wound #L. LE leg wound due to #Chronic venous insufficiency - Managed by [facility] Dr. Baird #Constipation: Improved w/ bowel regimen DVT ppx: On Lovenox Attestations 2 Medical Necessity Statement*: Patient needing to remain hospitalized for 2 midnights. Pending thoracentesis and overnight BiPAP study. Coding Level of Care Code 95202 Diagnoses Atrial fibrillation with RVR I48.91 Acute HFrEF (heart failure with reduced ejection fraction) I50.21 Acute hyperkalemia E87.5 ESRD on hemodialysis N18.6; Z99.2 NSTEMI (non-ST elevated myocardial infarction) I21.4 Acute kidney injury superimposed on CKD N17.9; N18.9
[2023-07-16 11:08] LABS: Glucose Point of Care 277 mg/dL (70-110)
[2023-07-16 11:24] LABS: Basophils # 0.1 10^3/uL (0.0-0.1); Basophils % 0.6 %; Eosinophils # 0.2 10^3/uL (0.0-0.8); Eosinophils % 2.5 %; Hematocrit 31.4 % (37-53); Lymphocytes # 2.5 10^3/uL (0.8-4.8); Lymphocytes % 28.4 %; Mean Corpuscular HGB Conc 29.6 g/dL (30-55); Mean Corpuscular Hemoglobin 26.5 pg (27-33); Mean Corpuscular Volume 89.5 fl (82-101); Monocytes # 0.5 10^3/uL (0.2-0.9); Monocytes % 5.9 %; Neutrophils # 5.48 10^3/uL (1.8-7.7); Neutrophils % 61.8 %; Nucleated Red Blood Cells % 0 %; Platelet Count 364 10^3/cmm (157-399); Red Blood Count 3.51 10^6/uL (3.85-5.65); Red Cell Distribution Width 17.2 % (12.1-15.1); White Blood Count 8.86 10^3/uL (3.29-11.43)
--- NOTE | 2023-07-16 11:32 | XR_ITS ---
WS: [id number] PORTABLE CHEST HISTORY: Post RIGHT thoracentesis. COMPARISON: 07/14/2023 Much better aeration of the RIGHT lung status post thoracentesis. Very tiny residual blunting of the costophrenic angle. No pneumothorax. Slight elevation of the LEFT hemidiaphragm. Cardiac size: Normal. Mediastinum/Aorta: Mild atherosclerosis aorta. No osseous abnormality seen. RIGHT subclavian dialysis catheter. IMPRESSION: No pneumothorax status post RIGHT thoracentesis.
[2023-07-16 11:40] LABS: Alanine Aminotransferase 8 U/L (0-41); Albumin Level 3.7 g/dL (3.5-5.2); Alkaline Phosphatase 75 U/L (40-130); Anion Gap 11.8 (5-19); Aspartate Amino Transferase 10 U/L (0-40); Blood Urea Nitrogen 70 mg/dL (8-23); Calcium 8.4 mg/dL (8.5-10.5); Carbon Dioxide 32 mmol/L (22-29); Chloride 97 mmol/L (98-107); Globulin 1.3 g/dL (1.3-4.6); Glucose 267 mg/dL (65-115); Lactate Dehydrogenase 173 U/L (135-225); Magnesium 2.2 mg/dL (1.7-2.3); Phosphorus 2.4 mg/dL (2.5-4.5); Potassium 4.8 mmol/L (3.5-5.1); Sodium 136 mmol/L (136-145); Total Bilirubin 0.3 mg/dL (0.15-1.2)
[2023-07-16] MEDS: insulin glargine 100 units/1 mL 5 UNIT SUBCUT (12:12)
[2023-07-16 12:14] LABS: Cyto Order Verification No Order
[2023-07-16 12:15] LABS: PATH Referal YES
[2023-07-16 12:16] LABS: Appearance, Pleural Fluid CLOUDY (CLEAR); Color, Pleural Fluid Red (Pale Yellow)
[2023-07-16 12:31] LABS: Mononuclear %, Pleural Fluid 93 %; Polynuclear Cells, Pleural % 7 %
--- NOTE | 2023-07-16 12:44 | PC.OT ---
OT TREATMENT ATTEMPTED THIS A.M. PATIENT RECEIVING ULTRASOUND IN ROOM. WILL ATTEMPT AGAIN AT A LATER TIME.
[2023-07-16 12:47] LABS: LDH Pleural Fluid 90 U/L; Pleural Fluid Albumin 2.1 g/dL; Pleural Fluid Triglycerides 16 mg/dL
[2023-07-16 12:50] LABS: Total Protein Body Fluid 2.7 g/dL
--- NOTE | 2023-07-16 13:07 | P.PN_ITS ---
Subjective 2 Subjective: Patient seen bedside this a afternoon for dressing change of bilateral lower extremity. Dialysis is setting up. Patient has been able to walk short distances around the room with PT. Patient's is bedside. Vitals/I&O/Wt Last Vital Signs Temp 98.5 F 07/16/23 12:35 Pulse 117 H 07/16/23 10:00 Resp 31 H 07/16/23 10:00 BP 132/86 07/16/23 10:00 Pulse Ox 93 07/16/23 10:00 O2 Del Method Nasal Cannula 07/16/23 10:00 O2 Flow Rate 1 07/16/23 10:00 FiO2 24 07/16/23 04:00 07/15/23 07/16/23 07/16/23 22:59 06:59 14:59 Intake Total 50 / 526 50 / 576 Output Total 150 / 150 Balance -100 / 376 50 / 426 Weight last 48 hrs Weight 218 lb Weight 217 lb Weight 214 lb 1.102 oz Physical Exam 2 Narrative: GENERAL: Patient is alert and oriented ?3 and in no acute distress. The following is a focused right lower extremity exam. VASCULAR: Dorsalis pedis and posterior tibial arteries diminished. Delay in capillary refill right transmetatarsal potation stump. Edema to the right lower extremity. NEUROLOGICAL: Protective sensation diminished to light touch. DERMATOLOGICAL: Stable eschar at the plantar lateral aspect of the right transmetatarsal amputation site. No purulence or erythema or warmth. Bilateral feet and leg dependent rubor. Water blisters limited to breakdown of skin x 2 at the left anterior leg. No purulent drainage and no proximal lymphangitic streaking, no soft tissue crepitus. MUSCULOSKELETAL: No pain with posterior calf squeeze. Status post right transmetatarsal amputation. Urinary Catheter Management: Kincaid: Cath Placed During This Visit: yes Reason for Continuing Indwelling Catheter: Accurate Measurement of Urinary Output in Critically Ill Patients Urinary Catheter Date of Insertion: 07/02/23 Urinary Catheter Time of Insertion: 03:30 Data 07/16/23 11:07 07/16/23 11:07 A&P Assessment and plan (1) S/P transmetatarsal amputation of foot: Qualifiers: Laterality: right Qualified Code(s): Z89.431 - Acquired absence of right foot (2) Dehiscence of wound: (3) Diabetic peripheral neuropathy associated with type 2 diabetes mellitus: (4) Leg wound, left: Qualifiers: Encounter type: subsequent encounter Qualified Code(s): S81.802D - Unspecified open wound, left lower leg, subsequent encounter Plan 73-year-old male status post right transmetatarsal amputation with surgical site dehiscence and delayed healing. At this time the right TMA amputation site with wound is stable with a stable eschar, no periwound erythema, there is no warmth or drainage. Right foot wound was dressed at today's visit with silver alginate, 4 inch Kerlix, skin tape, sock covering and white stockinette without compression of the right leg. Left leg has a grade 1 wound at the anterior lateral leg without acute signs of infection. Dressed with silver alginate, 4 inch Kerlix and stockinette. Patient may weight-bear as tolerated with a Ortho Claudia whole limb salvage boot to the right lower extremity and a diabetic shoe with diabetic insert to the left lower extremity. May be weightbearing as tolerated with physical therapy, will require aggressive physical therapy for standing, transferring and walking. Attestations 2 Medical Necessity Statement*: Bilateral lower extremity wounds Coding Level of Care Code Acute Code for Chg Fwd Diagnoses Status post amputation of right foot through metatarsal bone Z89.431 Laterality: right Dehiscence of wound T81.30XA Diabetic peripheral neuropathy associated with type 2 diabetes mellitus E11.42 Wound of left lower extremity, subsequent encounter S81.802D Encounter type: subsequent encounter
[2023-07-16] MEDS: TRAMadol 50 mg Tablet 25 MG PO ×2 (13:40→21:28)
--- NOTE | 2023-07-16 14:30 | PC.SOCIAL ---
IMM Update pg 2 of IMM updated and reviewed w/ patient. Copy provided and copy dated, initialed and placed in chart.
[2023-07-16] MEDS: heparin, porcine 1,000 unit/mL INJ 10 mL 10000 UNIT HE (14:57)
[2023-07-16] MEDS: heparin, porcine 1,000 unit/mL INJ 10 mL 10000 UNIT INTRACATH (15:41)
[2023-07-16 17:23] LABS: Glucose Point of Care 209 mg/dL (70-110)
[2023-07-16] MEDS: enoxaparin 30 mg/0.3 mL Syringe SUBCUT (17:23)
--- NOTE | 2023-07-16 18:42 | PC.NURSE ---
Shift summary- Patient removed bipap and stated he would not wear it at the beginning of sift, NC applied at 2L, RT titrated to RA. Thoracenteses performed at bedside, 480ml off. Dialysis performed, 2400L removed as reported by dialysis nurse, Khadra. Patient complains of pain right side, bruising visible from previous procedures. Tramadol given, See MAR, Patient reports this has controlled pain. Patient more tired today, AOX4. Worked with PT, OT, up to chair, resting in bed with at bedside with no complaints or requests currently.
[2023-07-16 20:44] LABS: Glucose Point of Care 231 mg/dL (70-110)
[2023-07-16] MEDS: aspirin 81 mg EC Tablet PO (21:27)
[2023-07-17] VITALS (56 sets, daily range): BP systolic 93–137; BP diastolic 53–108; PULSE 81–120; RESP 2–34; TEMP 36.7–37.2; O2SAT 77–100; BMI 30.3
[2023-07-17] MEDS: TRAMadol 50 mg Tablet 25 MG PO (02:05)
--- NOTE | 2023-07-17 02:35 | PC.NURSE ---
Pain Patient complaining of moderate pain at a 6 on a 1-10 numerical scale in the right chest and leg. Dr. Frances contacted and notified of tramadol administration at 2127 as well as current pain; order received to administer an additional 25 mg tramadol PO once now. See MAR for details.
[2023-07-17 04:47] LABS: Alanine Aminotransferase 7 U/L (0-41); Albumin Level 3.4 g/dL (3.5-5.2); Alkaline Phosphatase 69 U/L (40-130); Anion Gap 12.5 (5-19); Aspartate Amino Transferase 12 U/L (0-40); Blood Urea Nitrogen 43 mg/dL (8-23); Calcium 8.1 mg/dL (8.5-10.5); Carbon Dioxide 29 mmol/L (22-29); Chloride 96 mmol/L (98-107); Globulin 1.8 g/dL (1.3-4.6); Glucose 175 mg/dL (65-115); Magnesium 2.1 mg/dL (1.7-2.3); Phosphorus 2.2 mg/dL (2.5-4.5); Potassium 4.5 mmol/L (3.5-5.1); Sodium 133 mmol/L (136-145); Total Bilirubin 0.3 mg/dL (0.15-1.2); Total Protein 5.2 g/dL (6.6-8.7)
[2023-07-17 05:00] LABS: Basophils % 0.4 %; Eosinophils # 0.2 10^3/uL (0.0-0.8); Eosinophils % 1.6 %; Hematocrit 29.2 % (37-53); Lymphocytes # 2.9 10^3/uL (0.8-4.8); Lymphocytes % 31.1 %; Mean Corpuscular HGB Conc 29.8 g/dL (30-55); Mean Corpuscular Hemoglobin 26.5 pg (27-33); Mean Platelet Volume 9.6 fL (7.4-10.4); Monocytes # 0.7 10^3/uL (0.2-0.9); Monocytes % 7.8 %; Neutrophils # 5.52 10^3/uL (1.8-7.7); Neutrophils % 58.5 %; Nucleated Red Blood Cells % 0 %; Platelet Count 411 10^3/cmm (157-399); Red Blood Count 3.28 10^6/uL (3.85-5.65); Red Cell Distribution Width 17.2 % (12.1-15.1); White Blood Count 9.45 10^3/uL (3.29-11.43)
[2023-07-17] MEDS: aztreonam 1,000 MG in sodium chloride 0.9% (plus) 50 ML 100 MG IV ×2 (05:24→18:08)
[2023-07-17] MEDS: insulin glargine 100 units/1 mL 15 UNIT SUBCUT (05:25)
[2023-07-17] MEDS: thyroid 60 mg Tablet PO (05:25)
--- NOTE | 2023-07-17 07:36 | PC.NURSE ---
Pain Patient complaining of moderate pain at a 6 on a 1-10 numerical scale in his right chest and leg. Dr. Frances contacted and notified of previous administration at 2127; order received to administer another 25 mg tramadol PO once. See MAR for administration.
[2023-07-17 07:48] LABS: Glucose Point of Care 163 mg/dL (70-110)
[2023-07-17 07:48] LABS: Glucose Point of Care 172 mg/dL (70-110)
[2023-07-17] MEDS: metoprolol tartrate 25 mg Tablet PO ×2 (08:06→21:57)
[2023-07-17] MEDS: insulin lispro 100 unit/1 mL SUBCUT ×3 (08:07→21:56)
[2023-07-17] MEDS: thiamine 100 mg Tablet PO (08:07)
--- NOTE | 2023-07-17 08:23 | USR_ITS ---
PROCEDURE INFORMATION: Exam: US Right Non-Vascular Joint or Other Extremity Structure Exam date and time: 07/17/2023 9:52 AM Age: 73 years old Clinical indication: Screening exam; Edema, pain, bruising, soft tissue right chest wall TECHNIQUE: Imaging protocol: Right US joint or other nonvascular extremity structure or structures. Real-time ultrasound with image documentation. Limited study. Exam focused on the upper extremity in the region of clinical interest. COMPARISON: US thoracentesis [id number] 07/16/2023 11:13 AM FINDINGS: Soft tissues: Unremarkable. No loculated collections. No mass lesion US/US soft tissue/extremity [id number] IMPRESSION: Unremarkable US.
--- NOTE | 2023-07-17 08:28 | USCV_ITS ---
Usman Alvarez Age: 73 Gender: M : 1950 Exam Date: 07/17/2023 09:18 Ordering Phys: Marianne Ward MD Technologist: MYA Exam Location: [facility] [place] Indication: Arm swelling/bruising FINDINGS: No DVT noted at this time CONCLUSIONS No evidence of thrombus of the right upper extremity veins. Sj Arenas MD (Electronically Signed) Final Date: 17 July 2023 13:30 S
--- NOTE | 2023-07-17 10:09 | P.PN_ITS ---
Subjective 2 Subjective: s/p Hd yesterday Medications: Reviewed: Yes Vitals/I&O/Wt Last Vital Signs Temp 98.1 F 07/17/23 08:04 Pulse 88 07/17/23 08:23 Resp 18 07/17/23 08:23 BP 114/57 07/17/23 07:00 Pulse Ox 93 07/17/23 08:23 O2 Del Method Nasal Cannula 07/17/23 08:23 O2 Flow Rate 1 07/17/23 08:23 FiO2 24 07/16/23 04:00 07/16/23 07/17/23 07/17/23 22:59 06:59 14:59 Intake Total 1386 / 1386 50 / 1436 Output Total 2885 / 2885 175 / 3060 Balance -1499 / -1499 -125 / -1624 Weight last 48 hrs Weight 98.7 kg Weight 98.7 kg Weight 98.883 kg Physical Exam 2 Narrative: Awake, alert , no distress S1S2 RRR per report + edema Urinary Catheter Management: Kincaid: Cath Placed During This Visit: yes Reason for Continuing Indwelling Catheter: Accurate Measurement of Urinary Output in Critically Ill Patients Urinary Catheter Date of Insertion: 07/02/23 Urinary Catheter Time of Insertion: 03:30 Data 07/17/23 03:30 07/17/23 03:30 A&P Assessment and plan (1) Acute kidney injury superimposed on CKD: Plan 1. Acute on chronic kidney disease stage III: Baseline creatinine is in the mid 1 range, had prior SALLY requiring temporary hemodialysis due to contrast nephropathy -Patient presented with SALLY with a creatinine of 3.5 on presentation likely prerenal/ATN. Nonoliguric. no improvement in renal function - has volume overload , rising BUN , and low UOP ,, - initiated HD for volume management , next HD tomorrow - Arrange out pt HD 2. Hyperkalemia:, low K diet, improved 3. Hypernatremia ,improved 4. History of CHF, with low ejection fraction 35 to 45%, 5. History of peripheral vascular disease and right TMA in the past 6. Metabolic alkalosis - contraction alkalosis ,stable Patient evaluated using audiovisual cart. Time spent 20minutes. Attestations 2 Medical Necessity Statement*: per medicine Coding Level of Care Code Acute Code for Chg Fwd Diagnoses Acute kidney injury superimposed on CKD N17.9; N18.9
[2023-07-17 11:04] LABS: Glucose Point of Care 146 mg/dL (70-110)
[2023-07-17] MEDS: ondansetron 2 mg/ML SDV 2 mL 4 MG IVP (11:04)
--- NOTE | 2023-07-17 11:26 | ECG_ITS ---
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 Measurements Intervals [place] Rate: 82 P: 13 SD: 171 QRS: 19 QRSD: 105 T: 123 QT: 366 QTc: 428 Interpretive Statements SINUS RHYTHM LOW QRS VOLTAGE [QRS DEFLECTION < 0.5/1.0 mV IN LIMB/CHEST LEADS] ABNORMAL QRS-T ANGLE [QRS-T AXIS DIFFERENCE > 60] Compared to ECG 07/12/2023 18:36:25 Low QRS voltage now present Sinus tachycardia no longer present T-wave abnormality no longer present Electronically Signed On 07-17-2023 12:16:28 ASSESSMENT CONSULTANT by Christin Esquivel M.D. [id number]
--- NOTE | 2023-07-17 11:43 | XR_ITS ---
WS: [id number] Portable AP upright chest, 07/17/2023 Clinical Data: feeling of impending doom Comparison: Portable chest, 07/16/2023 Findings: There are bilateral patchy basilar pulmonary opacities which probably represent pleural eff usion. The opacity on the right has developed since yesterday and the opacity on the left has not tristen nged. The upper lobes are clear. The heart is enlarged. No pneumothorax is seen. The right dialysis c atheter remains in the same position. There are monitor leads on the chest wall. Impression: 1. Bilateral patchy pulmonary opacities which probably represent pleural effusion. 2. Cardiomegaly.
--- NOTE | 2023-07-17 11:45 | P.PN_ITS ---
Subjective 2 Subjective: I spoke w/ the Circulation Librarian bridge contractor, Dr. Esquivel, on 07/16/2023 about the NSTEMI type I vs Type II documented during the patient's earlier hospitalization. The Circulation Librarian advised to wait until the patient stabilizes to consider a nuclear medicine stress test. 900cc of fluid was removed from the R. l kim during thoracentesis. Post procedure CXR showed no signs of a PTX. With removal of the fluid the patient's O2 requirement decreased to 1L. The patient felt nauseous today, then he felt a sense of impending doom. An EKG was obtained that showed NSR w/ no ST changes and a QTc of 428. An ABG was done that was 7.38/51/72.9 on 1L NC. He was briefly placed on BiPAP. His initial Trop T was 238. A full dose of Aspirin was given then Trop T was trended. It was 250.9, then 263.2. I d/c'ed his monroe catheter today, 07/17/2023. The plan is to also plan to do the study to see whether the patient will qualify for O2 and BiPAP. There was also concern for bruising and swelling of the patient's R. arm and axillary area and back. A soft tissue US of the chest wall and axillary region, and R. back, and a venous duplex US of the upper extremity was done. The venous duplex US was negative for a DVT, and the soft tissue US of the chest wall and axillary region, and R. back were unremarkable. No loculations were noted. Medications: Reviewed: Yes Vitals/I&O/Wt Last Vital Signs Temp 98.8 F 07/17/23 10:06 Pulse 88 07/17/23 08:23 Resp 18 07/17/23 08:23 BP 114/57 07/17/23 07:00 Pulse Ox 93 07/17/23 08:23 O2 Del Method Nasal Cannula 07/17/23 08:23 O2 Flow Rate 1 07/17/23 08:23 FiO2 24 07/16/23 04:00 07/16/23 07/17/23 07/17/23 22:59 06:59 14:59 Intake Total 1386 / 1386 50 / 1436 Output Total 2885 / 2885 175 / 3060 Balance -1499 / -1499 -125 / -1624 Weight last 48 hrs Weight 98.7 kg Weight 98.7 kg Weight 98.883 kg Physical Exam 2 Const: GENERAL APPEARANCE: cooperative, comfortable and ill appearing N UTRITIONAL APPEARANCE: obese ORIENTATION/CONSCIOUSNESS: Yes awake, Yes oriented to person, Yes oriented to place and Yes oriented to time HENMT: COMMON NORMALS: normocephalic, atraumatic and external ears normal H EAD & SCALP: normal to inspection, normocephalic and atraumatic EXTERNAL EAR: Yes external ears normal MOUTH: Normal oral and palatal mucosa present T HROAT: posterior oropharynx normal Eye: COMMON NORMALS: Equal, round and reactive pupils present and conjunctivae normal CONJUNCTIVA: Yes conjunctivae normal PUPIL: Yes Equal, round and reactive pupils present EOM: No EOM abnormal Neck/C-Spine: COMMON NORMALS: Thyroid normal GENERAL: Yes normal visual inspection and Yes trachea midline THYROID: Thyroid normal CAROTIDS: No bruit Lymph: LYMPHATIC: No lymphadenopathy Resp: OTHER: diminishing breath sounds bilaterally from mid to lower lung west to the point that it is virtually absent in the b/l lower lung west. Cardio: OTHER: Irregular rate and rhythm, with no gallops, clicks, or rubs. Patient has 2/6 systolic murmurs in all 4 valves. GI: OTHER: Bowel sounds positive. Nontender, nondistended, no guarding, no rigidity, no rebound tenderness, and no hepatosplenomegaly appreciated on palpation. Extremity: NARRATIVE EXTREMITY EXAM: R. foot in a boot, L. foot wrapped by Dr. Baird GENERAL: No clubbing and No cyanosis Neuro: SENSORIUM/ORIENTATION: Yes oriented to person, Yes oriented to place and Yes oriented to time CRANIAL NERVES: Yes CN normal except as noted S PEECH: speech normal MOTOR EXAM: Normal motor muscle tone present throughout Psych: COMMON NORMALS: Normal thought process present and speech normal A PPEARANCE: Yes grossly normal ATTITUDE: Yes calm and Yes engaged A CTIVITY/MOTOR BEHAVIOR: Yes appropriate eye contact SPEECH: Yes normal speech MOOD & AFFECT: Yes euthymic mood THOUGHT PROCESS: Normal thought process present THOUGHT CONTENT: Yes Normal thought content present A TTENTION/CONCENTRATION: Yes attention grossly intact Skin: NARRATIVE SKIN EXAM: No rashes lesions or wounds on the skin except as noted above on the legs. Urinary Catheter Management: Monroe: Cath Placed During This Visit: yes Reason for Continuing Indwelling Catheter: Accurate Measurement of Urinary Output in Critically Ill Patients Urinary Catheter Date of Insertion: 07/02/23 Urinary Catheter Time of Insertion: 03:30 Data 07/17/23 03:30 07/17/23 03:30 A&P Assessment and plan (1) Atrial fibrillation with RVR: (2) Acute HFrEF (heart failure with reduced ejection fraction): (3) Acute hyperkalemia: (4) ESRD on hemodialysis: (5) NSTEMI (non-ST elevated myocardial infarction): (6) Acute kidney injury superimposed on CKD: Plan Mr. 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 Baird for fever, chills, rigors noted in clinic and was admitted on 07/01/2023 for hyperkalemia (K+ of 6.7), SALLY on CKDIII. BCx were drawn and Nephrology was consulted. On admission, 07/02, he went into acute hypoxic, hypercapneic respiratory failure requiring BiPAP, due to Pulmonary Edema caused by Acute onset HFrEF. A TTE was done that showed an EF of 45-50% w/ hypokinesis of the mid-anterior and anteroseptal wall segments. He went into Afib w/ RVR on 07/04/2023 and was diuresed on the floor. He went into Acute hypercapneic resp. failure on 07/08 due to increasing vol overload in the setting of worsening renal fxn. He was transferred to the ICU again and placed on BiPAP. A. perm cath was plced on 07/10/2023 and it was complicated by a R. sided Pneumothorax requiring chest tube placement that was d/c'ed on 07/13. He initiated HD on 07/10. An overnight study to qualify him for BiPAP was attempted, and per case mgmt, he qualified by ABG, but his desaturations were monitored for only 3 minutes instead of 5 minutes. #Acute Encephalopathy #Acute hypoxic hypercapneic respiratory failure on Intermittent BiPAP including at night. #b/l pneumonia vs pneumonitis: On Vanc/Aztreonam. Vanc d/c'ed on 07/10. On Aztreonam since 07/05/2023 - Per Nephrology, ok to obtain CT chest w/ contrast, so will order CT cheset. #R.>>L Pleural effusion - CT chest shows b/l interstitial opacities concerning for pneumonia as well as b/l >L pleural effusion. Thoracentesis w/ pleural fluid labs ordered on 07/16/2023 - F/u Pleural fluid studies and cxs. #Recurrent chest pain: Will start ACS protocol by d/c'ing prophylactic Lovenox and starting Heparin drip. Will consult Cardiology in the AM. In the meantime, will make patient NPO after midnight for stress test vs cardiac cath. #NSTEMI (Type I vs Type II): On Aspirin, Statin. Will consult Cardiology. #Acute on chronic HFrEF. #Afib w/ RVR: Patient's declining Eliquis #PVD - On Aspirin, Statin #SALLY on CKDIII --> ESRD on HD via R. IJ perm cath - Contact Dairy Manager to see whether she is ok w/ the patient getting CT w/ contrast. #Hyponatremia #Hyperkalemia - Managed w/ HD. #Hypothyroidism - ResumeArmour Thyroid #IDDM2: On moderate dose sliding scale. It was switched to Lantus 10units daily w/ low dose sliding scale insulin, low dose b/c the patient's nurse was worried that the patient had had episodes of hypoglycemia on the moderate SSI. #R. TMA wound #L. LE leg wound due to #Chronic venous insufficiency - Managed by [facility] Dr. Baird #Constipation: Improved w/ bowel regimen DVT ppx: Start Heparin drip. Attestations 2 Medical Necessity Statement*: The patient needs to remain hospitalized for concerns for chest pain. Coding Level of Care Code 44117 Diagnoses Atrial fibrillation with RVR I48.91 Acute HFrEF (heart failure with reduced ejection fraction) I50.21 Acute hyperkalemia E87.5 ESRD on hemodialysis N18.6; Z99.2 NSTEMI (non-ST elevated myocardial infarction) I21.4 Acute kidney injury superimposed on CKD N17.9; N18.9
[2023-07-17 11:46] LABS: Glucose Point of Care 134 mg/dL (70-110)
--- NOTE | 2023-07-17 11:59 | PC.NURSE ---
Notified Dr. Ward of patient complaints of nausea and feeling of impending doom. EKG completed, 2L NC applied, Zofran given. Orders for chest xray and troponin pending at this time.
[2023-07-17 12:05] LABS: ABG PH Result 7.38 (7.35-7.45); Alveolar-Arterial Oxygen Gradi 2.2 mmHg (5-10); Arterial Blood Gas Hematocrit 26.5 % (42-52); Base Excess ABG 4.3 mmol/L (-2.0-2.0); Blood Gas Allen Test Pos; Blood Gas Operator Identificat GD; Blood Gas Sample Site Radial, left; Blood Gas Sample Type Arterial; Carboxyhemoglobin 2.5 %THgb (0.4-20.1); HCO3 ABG 30.1 mmol/L (22-26); HGB O2 Sat 93.9 % (95-100); Ionized Calcium Level - ABG 1.1 mmol/L (1.1-1.4); Methemoglobin 0.9 % (0.4-1.5); Oxygen Device ROOM AIR; Oxygen Saturation ABG 97.2; PO2 ABG 72.9 mmHg (80.0-100.0); Potassium Level - ABG 4.4 mmol/L (3.5-5.0); Total Hemoglobin 8.7 g/dL (14-18)
[2023-07-17 12:44] LABS: Troponin T (5th) Once 238 ng/L (0-15)
[2023-07-17] MEDS: aspirin 325 mg EC Tablet PO (13:34)
[2023-07-17 14:37] LABS: Troponin 5 2HR 250.9 ng/L (0-15); Troponin 5 2HR Delta 12.9 ABS# (0-10)
[2023-07-17 17:32] LABS: Glucose Point of Care 188 mg/dL (70-110)
[2023-07-17] MEDS: enoxaparin 30 mg/0.3 mL Syringe SUBCUT (18:09)
[2023-07-17 18:49] LABS: Troponin 5 6HR 263.2 ng/L (0-15); Troponin 5 6HR Delta 25.2 ng/L (0-12)
--- NOTE | 2023-07-17 18:52 | P.PN_ITS ---
Subjective 2 Subjective: Patient evaluated in ICU room 9 was sitting in his chair upon entering the room, his is bedside. Denies any acute events overnight. Has been working with PT and OT. Tolerating regular diet. Vitals/I&O/Wt Last Vital Signs Temp 98.6 F 07/17/23 18:30 Pulse 84 07/17/23 16:30 Resp 20 H 07/17/23 16:30 BP 125/64 07/17/23 16:30 Pulse Ox 92 07/17/23 16:30 O2 Del Method Nasal Cannula 07/17/23 14:00 O2 Flow Rate 1 07/17/23 08:23 FiO2 24 07/16/23 04:00 07/17/23 07/17/23 07/17/23 06:59 14:59 22:59 Intake Total 50 / 1436 236 / 236 118 / 354 Output Total 175 / 3060 Balance -125 / -1624 236 / 236 118 / 354 Weight last 48 hrs Weight 217 lb 9.54 oz Weight 217 lb 9.54 oz Weight 218 lb Physical Exam 2 Narrative: GENERAL: Patient is alert and oriented ?3 and in no acute distress. The following is a focused right lower extremity exam. VASCULAR: Dorsalis pedis and posterior tibial arteries diminished. Delay in capillary refill right transmetatarsal potation stump. Edema to the right lower extremity. NEUROLOGICAL: Protective sensation diminished to light touch. DERMATOLOGICAL: Stable eschar at the plantar lateral aspect of the right transmetatarsal amputation site. No purulence or erythema or warmth. Bilateral feet and leg dependent rubor. Water blisters limited to breakdown of skin x 2 at the left anterior leg. No purulent drainage and no proximal lymphangitic streaking, no soft tissue crepitus. MUSCULOSKELETAL: No pain with posterior calf squeeze. Status post right transmetatarsal amputation. Urinary Catheter Management: Kincaid: Cath Placed During This Visit: yes Reason for Continuing Indwelling Catheter: Accurate Measurement of Urinary Output in Critically Ill Patients Urinary Catheter Date of Insertion: 07/02/23 Urinary Catheter Time of Insertion: 03:30 Data 07/17/23 03:30 07/17/23 03:30 Micro: Microbiology 07/16/23 11:42 Gram Stain - Final Pleural Fluid Body Fluid Culture - Preliminary A&P Assessment and plan (1) S/P transmetatarsal amputation of foot: Qualifiers: Laterality: right Qualified Code(s): Z89.431 - Acquired absence of right foot (2) Dehiscence of wound: (3) Diabetic peripheral neuropathy associated with type 2 diabetes mellitus: (4) Leg wound, left: Qualifiers: Encounter type: subsequent encounter Qualified Code(s): S81.802D - Unspecified open wound, left lower leg, subsequent encounter Plan 73-year-old male status post right transmetatarsal amputation with surgical site dehiscence and delayed healing. At this time the right TMA amputation site with wound is stable with a stable eschar, no periwound erythema, there is no warmth or drainage. Right foot wound was dressed at today's visit with silver alginate, 4 inch Kerlix, skin tape, sock covering and white stockinette without compression of the right leg. Left leg has a grade 1 wound at the anterior lateral leg without acute signs of infection. Dressed with silver alginate, 4 inch Kerlix and stockinette. Patient may weight-bear as tolerated with a Ortho Claudia whole limb salvage boot to the right lower extremity and a diabetic shoe with diabetic insert to the left lower extremity. May be weightbearing as tolerated with physical therapy, will require aggressive physical therapy for standing, transferring and walking. Attestations 2 Medical Necessity Statement*: bilateral lower extremity wound Coding Level of Care Code Acute Code for Chg Fwd Diagnoses Status post amputation of right foot through metatarsal bone Z89.431 Laterality: right Dehiscence of wound T81.30XA Diabetic peripheral neuropathy associated with type 2 diabetes mellitus E11.42 Wound of left lower extremity, subsequent encounter S81.802D Encounter type: subsequent encounter
--- NOTE | 2023-07-17 19:18 | PC.NURSE ---
Dr. Ward on unit, verbal oder to start Heparin drip, order entered.
[2023-07-17 20:52] LABS: Partial Thromboplastin Time 37.9 SECONDS (23.9-36.7)
[2023-07-17] MEDS: heparin 5,000 unit/mL INJ 1 mL IV (21:22)
[2023-07-17] MEDS: heparin drip 25,000 UNIT/500 ML PREMIX 27 UNIT IV (21:25)
[2023-07-17 23:26] LABS: Troponin T (5th) Once 254 ng/L (0-15)
[2023-07-18] VITALS (52 sets, daily range): BP systolic 93–149; BP diastolic 57–104; PULSE 77–120; RESP 5–37; TEMP 36.5–36.8; O2SAT 76–100; BMI 30.3
[2023-07-18 04:19] LABS: Basophils # 0.1 10^3/uL (0.0-0.1); Basophils % 0.6 %; Eosinophils # 0.3 10^3/uL (0.0-0.8); Eosinophils % 2.9 %; Hematocrit 30.7 % (37-53); Lymphocytes # 3.9 10^3/uL (0.8-4.8); Lymphocytes % 41.2 %; Mean Corpuscular HGB Conc 29.3 g/dL (30-55); Mean Corpuscular Hemoglobin 26.4 pg (27-33); Mean Platelet Volume 9.2 fL (7.4-10.4); Monocytes # 0.7 10^3/uL (0.2-0.9); Monocytes % 7.1 %; Neutrophils # 4.45 10^3/uL (1.8-7.7); Neutrophils % 47.7 %; Nucleated Red Blood Cells % 0 %; Platelet Count 474 10^3/cmm (157-399); Red Blood Count 3.41 10^6/uL (3.85-5.65); Red Cell Distribution Width 17.9 % (12.1-15.1); White Blood Count 9.34 10^3/uL (3.29-11.43)
[2023-07-18] MEDS: TRAMadol 50 mg Tablet PO ×2 (04:23→20:46)
[2023-07-18 04:40] LABS: Alanine Aminotransferase 9 U/L (0-41); Albumin Level 3.9 g/dL (3.5-5.2); Alkaline Phosphatase 79 U/L (40-130); Anion Gap 13.2 (5-19); Aspartate Amino Transferase 13 U/L (0-40); Blood Urea Nitrogen 54 mg/dL (8-23); Calcium 8.4 mg/dL (8.5-10.5); Carbon Dioxide 31 mmol/L (22-29); Chloride 95 mmol/L (98-107); Glucose 86 mg/dL (65-115); Phosphorus 2.9 mg/dL (2.5-4.5); Potassium 5.2 mmol/L (3.5-5.1); Sodium 134 mmol/L (136-145); Total Bilirubin 0.4 mg/dL (0.15-1.2); Total Protein 5.9 g/dL (6.6-8.7)
[2023-07-18 04:41] LABS: Creatinine Clr Calc Pharmacy 19.7884
[2023-07-18] MEDS: thyroid 60 mg Tablet PO (06:07)
[2023-07-18] MEDS: aztreonam 1,000 MG in sodium chloride 0.9% (plus) 50 ML 100 MG IV ×2 (06:08→17:43)
--- NOTE | 2023-07-18 09:24 | PC.SOCIAL ---
IMM Update pg 2 of IMM updated and reviewed w/ patient. Copy provided and copy dated, initialed and placed in chart.
[2023-07-18] MEDS: aspirin 81 mg EC Tablet PO (10:10)
[2023-07-18] MEDS: metoprolol tartrate 25 mg Tablet PO ×2 (10:10→20:46)
[2023-07-18] MEDS: thiamine 100 mg Tablet PO (10:11)
[2023-07-18 10:21] LABS: Partial Thromboplastin Time 58.1 SECONDS (23.9-36.7)
--- NOTE | 2023-07-18 10:39 | P.PN_ITS ---
Subjective 2 Subjective: o new complaints Medications: Reviewed: Yes Vitals/I&O/Wt Last Vital Signs Temp 98.3 F 07/18/23 03:36 Pulse 111 H 07/18/23 10:00 Resp 25 H 07/18/23 10:00 BP 134/81 07/18/23 10:00 Pulse Ox 100 07/18/23 10:00 O2 Del Method Room Air 07/18/23 07:46 O2 Flow Rate 1 07/17/23 08:23 FiO2 24 07/16/23 04:00 07/17/23 07/18/23 07/18/23 22:59 06:59 14:59 Intake Total 168 / 404 257.95 / 661.95 Output Total 40 / 40 35 / 75 Balance 128 / 364 222.95 / 586.95 Weight last 48 hrs Weight 98.7 kg Weight 98.7 kg Weight 98.7 kg Physical Exam 2 Narrative: Awake, alert , no distress S1S2 RRR per report + edema Urinary Catheter Management: Kincaid: Cath Placed During This Visit: yes Reason for Continuing Indwelling Catheter: Accurate Measurement of Urinary Output in Critically Ill Patients Urinary Catheter Date of Insertion: 07/02/23 Urinary Catheter Time of Insertion: 03:30 Data 07/19/23 03:57 07/19/23 03:57 Micro: Microbiology 07/16/23 11:42 Gram Stain - Final Pleural Fluid Body Fluid Culture - Preliminary A&P Assessment and plan (1) Acute kidney injury superimposed on CKD: Plan 1. Acute on chronic kidney disease stage III: Baseline creatinine is in the mid 1 range, had prior SALLY requiring temporary hemodialysis due to contrast nephropathy -Patient presented with SALLY with a creatinine of 3.5 on presentation likely prerenal/ATN. Nonoliguric. no improvement in renal function - initiated HD for volume management , next HD friday - Arrange out pt HD 2. Hyperkalemia:, low K diet, improved 3. Hypernatremia ,improved 4. History of CHF, with low ejection fraction 35 to 45%, 5. History of peripheral vascular disease and right TMA in the past 6. Metabolic alkalosis - contraction alkalosis ,stable Patient evaluated using audiovisual cart. Time spent 20minutes. Attestations 2 Medical Necessity Statement*: per medicine team Coding Level of Care Code Acute Code for Chg Fwd Diagnoses Acute kidney injury superimposed on CKD N17.9; N18.9
[2023-07-18 11:33] LABS: Glucose Point of Care 187 mg/dL (70-110)
[2023-07-18 11:33] LABS: Glucose Point of Care 158 mg/dL (70-110)
[2023-07-18 11:33] LABS: Glucose Point of Care 93 mg/dL (70-110)
--- NOTE | 2023-07-18 11:55 | P.PN_ITS ---
Subjective 2 Subjective: He had a bad night, because with the pulse oximetry study, his O2 would drop when he fell asleep, then the monitors would alarm, consequently waking him up. He is working with PT in the room. He meets criteria for exudative fluid based on serum total protein ratio of 0.54. However, Pleural fluid cx are negative x 1 day. Cardiology on-call, Dr. Louis, was consulted regarding his elevated troponin on 07/17/2023, concern for NSTEMI type I versus NSTEMI type II that he had during the early part of his hospitalization, as well as the 's reticence about Eliquis. Per Dr. Louis, ok to d/c the heparin drip. Patient would benefit from a stress test in the future; however,t he patient and did not want invasive or interventional procedures at this point. They just wanted medical management for the patient; however, the patient would consider further cardiac workup if he started having chest pain. Regarding the Eliquis, ok to add Plavix to the patient's medication regimen, so it was started. Vitals/I&O/Wt Last Vital Signs Temp 98.3 F 07/18/23 03:36 Pulse 111 H 07/18/23 10:00 Resp 25 H 07/18/23 10:00 BP 134/81 07/18/23 10:00 Pulse Ox 100 07/18/23 10:00 O2 Del Method Room Air 07/18/23 07:46 O2 Flow Rate 1 07/17/23 08:23 FiO2 24 07/16/23 04:00 07/17/23 07/18/23 07/18/23 22:59 06:59 14:59 Intake Total 168 / 404 257.95 / 661.95 Output Total 40 / 40 35 / 75 Balance 128 / 364 222.95 / 586.95 Weight last 48 hrs Weight 98.7 kg Weight 98.7 kg Weight 98.7 kg Physical Exam 2 Const: GENERAL APPEARANCE: cooperative, comfortable and ill appearing N UTRITIONAL APPEARANCE: obese ORIENTATION/CONSCIOUSNESS: Yes awake, Yes oriented to person, Yes oriented to place and Yes oriented to time HENMT: COMMON NORMALS: normocephalic, atraumatic and external ears normal H EAD & SCALP: normal to inspection, normocephalic and atraumatic EXTERNAL EAR: Yes external ears normal MOUTH: Normal oral and palatal mucosa present T HROAT: posterior oropharynx normal Eye: COMMON NORMALS: Equal, round and reactive pupils present and conjunctivae normal CONJUNCTIVA: Yes conjunctivae normal PUPIL: Yes Equal, round and reactive pupils present EOM: No EOM abnormal Neck/C-Spine: COMMON NORMALS: Thyroid normal GENERAL: Yes normal visual inspection and Yes trachea midline THYROID: Thyroid normal CAROTIDS: No bruit Lymph: LYMPHATIC: No lymphadenopathy Resp: OTHER: diminishing breath sounds bilaterally from mid to lower lung west to the point that it is virtually absent in the b/l lower lung west. Cardio: OTHER: Irregular rate and rhythm, with no gallops, clicks, or rubs. Patient has 2/6 systolic murmurs in all 4 valves. GI: OTHER: Bowel sounds positive. Nontender, nondistended, no guarding, no rigidity, no rebound tenderness, and no hepatosplenomegaly appreciated on palpation. Extremity: NARRATIVE EXTREMITY EXAM: R. foot in a boot, L. foot wrapped by Dr. Baird GENERAL: No clubbing and No cyanosis Neuro: SENSORIUM/ORIENTATION: Yes oriented to person, Yes oriented to place and Yes oriented to time CRANIAL NERVES: Yes CN normal except as noted S PEECH: speech normal MOTOR EXAM: Normal motor muscle tone present throughout Psych: COMMON NORMALS: Normal thought process present and speech normal A PPEARANCE: Yes grossly normal ATTITUDE: Yes calm and Yes engaged A CTIVITY/MOTOR BEHAVIOR: Yes appropriate eye contact SPEECH: Yes normal speech MOOD & AFFECT: Yes euthymic mood THOUGHT PROCESS: Normal thought process present THOUGHT CONTENT: Yes Normal thought content present A TTENTION/CONCENTRATION: Yes attention grossly intact Skin: NARRATIVE SKIN EXAM: No rashes lesions or wounds on the skin except as noted above on the legs. Urinary Catheter Management: Kincaid: Cath Placed During This Visit: yes Reason for Continuing Indwelling Catheter: Accurate Measurement of Urinary Output in Critically Ill Patients Urinary Catheter Date of Insertion: 07/02/23 Urinary Catheter Time of Insertion: 03:30 Data 07/19/23 03:57 07/19/23 03:57 Micro: Microbiology 07/16/23 11:42 Gram Stain - Final Pleural Fluid Body Fluid Culture - Preliminary A&P Assessment and plan (1) Atrial fibrillation with RVR: (2) Acute HFrEF (heart failure with reduced ejection fraction): (3) Acute hyperkalemia: (4) ESRD on hemodialysis: (5) NSTEMI (non-ST elevated myocardial infarction): (6) Acute kidney injury superimposed on CKD: Plan Mr. 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 Baird for fever, chills, rigors noted in clinic and was admitted on 07/01/2023 for hyperkalemia (K+ of 6.7), SALLY on CKDIII. BCx were drawn and Nephrology was consulted. On admission, 07/02, he went into acute hypoxic, hypercapneic respiratory failure requiring BiPAP, due to Pulmonary Edema caused by Acute onset HFrEF. A TTE was done that showed an EF of 45-50% w/ hypokinesis of the mid-anterior and anteroseptal wall segments. He went into Afib w/ RVR on 07/04/2023 and was diuresed on the floor. He went into Acute hypercapneic resp. failure on 07/08 due to increasing vol overload in the setting of worsening renal fxn. He was transferred to the ICU again and placed on BiPAP. A. perm cath was plced on 07/10/2023 and it was complicated by a R. sided Pneumothorax requiring chest tube placement that was d/c'ed on 07/13. He initiated HD on 07/10. An overnight study to qualify him for BiPAP was attempted, and per case mgmt, he qualified by ABG, but his desaturations were monitored for only 3 minutes instead of 5 minutes. Cardiology on-call, Dr. Louis, was consulted regarding his elevated troponin on 07/17/2023, concern for NSTEMI type I versus NSTEMI type II that he had during the early part of his hospitalization, as well as the 's reticence about Eliquis. Per Dr. Louis, ok to d/c the heparin drip. Patient would benefit from a stress test in the future; however,t he patient and did not want invasive or interventional procedures at this point. They just wanted medical management for the patient; however, the patient would consider further cardiac workup if he started having chest pain. Regarding the Eliquis, ok to add Plavix to the patient's medication regimen, so it was started. #Acute Encephalopathy #Acute hypoxic hypercapneic respiratory failure on Intermittent BiPAP including at night. #b/l pneumonia vs pneumonitis: On Vanc/Aztreonam. Vanc d/c'ed on 07/10. On Aztreonam since 07/05/2023 - Per Nephrology, ok to obtain CT chest w/ contrast, so will order CT cheset. #R.>>L Pleural effusion #Exudative Pleural effusion - CT chest shows b/l interstitial opacities concerning for pneumonia as well as b/l >L pleural effusion. Thoracentesis w/ pleural fluid labs ordered on 07/16/2023 - F/u Pleural fluid cxs. #Elevated Trop T on 07/17/2023: Consulted Cardiology on 07/18/2023. #NSTEMI (Type I vs Type II): On Aspirin, Statin. Consulted Cardiology on 07/18/2023. #Acute on chronic HFrEF. #Afib w/ RVR: Patient's declining Eliquis #PVD - On Aspirin, Statin #SALLY on CKDIII --> ESRD on HD via R. IJ perm cath - Contact Elevator Dispatcher to see whether she is ok w/ the patient getting CT w/ contrast. #Hyponatremia #Hyperkalemia - Managed w/ HD. #Hypothyroidism - ResumeArmour Thyroid #IDDM2: On moderate dose sliding scale. It was switched to Lantus 10units daily w/ low dose sliding scale insulin, low dose b/c the patient's nurse was worried that the patient had had episodes of hypoglycemia on the moderate SSI. #R. TMA wound #L. LE leg wound due to #Chronic venous insufficiency - Managed by [facility] Dr. Baird #Constipation: Improved w/ bowel regimen DVT ppx: Start Heparin drip. Attestations 2 Medical Necessity Statement*: Patient remains hospitalized at this time as results of the pleural fluid cultures are pending. Coding Level of Care Code 84034 Diagnoses Atrial fibrillation with RVR I48.91 Acute HFrEF (heart failure with reduced ejection fraction) I50.21 Acute hyperkalemia E87.5 ESRD on hemodialysis N18.6; Z99.2 NSTEMI (non-ST elevated myocardial infarction) I21.4 Acute kidney injury superimposed on CKD N17.9; N18.9
[2023-07-18 12:21] LABS: Glucose Point of Care 90 mg/dL (70-110)
[2023-07-18] MEDS: heparin, porcine 1,000 unit/mL INJ 10 mL 1000 UNIT IV (12:33)
--- NOTE | 2023-07-18 12:43 | PM.CONSULT ---
Providers/Reason For Consult Consulting Physician/Specialty*: SEVERIANO Louis MD/cardiology Reason for Consult*: Patient with multiple medical problems including chronic kidney disease, on hemodialysis, AKA, coronary artery disease with previous PCI, having chest symptoms with elevated troponin T Requesting Physician: Dr. Ward Attending Physician: Marianne Ward MD Primary Care Provider: Beatriz Brady History of Present Illness History of Present Illness Usman Alvarez is a 73 year old male with multiple medical problems, was admitted to hospital on 07/01/2023 with complaints of increasing swelling in the extremities, fever and chills and some shortness of breath. The patient was found to be hypoxic, acute on chronic renal failure and hyperkalemia. He was found to be in congestive heart failure. he was started on hemodialysis after placing a permacath. Apparently he developed pneumothorax after the permacath for which he had a chest tube placement. Yesterday the patient was complaining of not feeling well. he had a troponin T which was found to be in the 200 range. He had a delta of 12.9 after 6 hours. His EKG did not show any new changes. Cardiology consult is requested for further cardiac evaluation recommendations. According the patient, he did not have any chest pain or any unusual shortness of breath yesterday. He is currently getting the hemodialysis. His overall status is slowly improving. No fever or chills. No cough. This patient had a PCI of the LAD in 2019. He had moderate disease in the right coronary artery . the FFR on this lesion was in the normal range. So it was decided to treat him medically. He stopped taking the Plavix after a year. He has a history of atrial flutter and has been on Eliquis. According to the , he had a significant bleed from his left leg without any provocation. Also the patient has been not feeling well when he takes the Eliquis. He has an extensive history of peripheral artery disease. He had multiple peripheral arterial interventions in the right lower extremity. He ended up in having toe amputations for dry gangrene. He has a totally occluded SFA. He has diffuse disease in the popliteal artery and the infrapopliteal vessels. A surgical consult was obtained from Dr. Moraes. He was found to be not a candidate for any surgical intervention. In April, he had a transmetatarsal amputation. This is being followed by Dr. Baird. he is known to have ischemic cardiomyopathy. His LV ejection fraction was around 30 to 35% in February. The repeat echocardiogram, a limited 2D echo on the revealed ejection fraction around 45%. Patient is known to have diabetes complicated with diabetic neuropathy. He also has a history of hypertension, dyslipidemia, contrast-induced nephropathy, pleural effusion and chronic anemia. Review of Systems Narrative: CONSTITUTIONAL: Had some chills at the time of admission EYES: No blurring of vision or other visual disturbances lately. ENT: No hoarseness of voice, auditory disturbances or sore throat. CARDIOVASCULAR: As mentioned above. RESPIRATORY: Bilateral pleural effusion, improving GASTROINTESTINAL: No hematemesis or melena. GENITOURINARY: Patient on hemodialysis now INTEGUMENTARY: No skin rashes or history of skin cancer. NEURO: No transient ischemic attacks or amaurosis. PSYCHIATRIC: No history of psychosis or major depression. HEMATOLOGIC: No bleeding disorders or significant anemia. ENDOCRINE: No history of polyuria or polydipsia. MUSCULOSKELETAL: No recent joint pain or swelling. ALLERGY/IMMUNOLOGY: As mentioned above. Medications/Allergies Home Medications Medication Instructions Recorded Confirmed Last Taken Type garlic 1,000 mg capsule 1,000 mg PO BEDTIME 08/31/19 07/01/23 06/30/23 History furosemide 40 mg tablet 40 mg PO QAM 09/25/21 07/01/23 07/01/23 History tramadol 50 mg tablet 50 mg PO BEDTIME 06/14/22 07/01/23 06/30/23 History [place] Drops See Rx Instructions .Route .COMPLEX 02/05/23 07/01/23 07/01/23 History aspirin 81 mg tablet,delayed 81 mg PO BEDTIME 02/05/23 07/01/23 06/30/23 History release hawthorn 500 mg capsule (hawthorn 500 mg PO BID 02/05/23 07/01/23 07/01/23 History tejada) insulin detemir U-100 100 unit/mL 36 unit SUBCUT QAM 02/05/23 07/01/23 06/30/23 History (3 mL) subcutaneous pen (Levemir FlexPen) insulin regular human 100 unit/mL See Rx Instructions .Route .COMPLEX 02/05/23 07/01/23 06/30/23 History injection solution (Novolin R Regular U-100 Insulin) magnesium oxide 400 mg PO QPM 02/05/23 07/01/23 06/30/23 History nitroglycerin 0.4 mg sublingual 0.4 mg sublingual Q5M PRN Chest 02/05/23 07/01/23 Unknown History tablet (Nitrostat) Pain resveratrol 100 mg capsule 100 mg PO BID 02/05/23 07/01/23 07/01/23 History thyroid (pork) 60 mg tablet 60 mg PO QAM 02/05/23 07/01/23 1 Week Ago History ([place] Thyroid) ~01/29/23 [place] to Right Lower Extremity #1 ea 03/24/23 07/01/23 Unknown Rx [place] to the right #1 ea 03/26/23 07/01/23 Unknown Rx Vitamin B Complex Liquid See Rx Instructions .Route .COMPLEX 04/16/23 07/01/23 07/01/23 History mirtazapine 15 mg tablet (Remeron) 15 mg PO DAILY #30 tabs 06/20/23 07/01/23 07/01/23 Rx Allergies Allergy/AdvReac Type Severity Reaction Status Date / Time Penicillins Allergy Severe Throat Verified 07/01/23 15:43 swells amiodarone Allergy Unknown Verified 07/05/23 05:55 atorvastatin Allergy ADR-Muscle Verified 07/06/23 03:25 Pain azithromycin Allergy ADR/ALGY-Pa Verified 07/01/23 15:43 lpitations ciprofloxacin Allergy hallucinations Verified 07/01/23 15:43 and burning sensation in legs simvastatin Allergy ADR-Muscle Verified 07/06/23 03:12 Pain Cordarone Allergy Unknown Confusion Uncoded 07/01/23 14:55 Current Medications Generic Name Dose Route Start Last Admin Trade Name Freq PRN Reason Stop Dose Admin Acetaminophen 500 mg 07/01/23 19:25 07/15/23 14:29 Acetaminophen 500 Mg Tablet PO 500 mg Q4H PRN Administration MILD PAIN OR INCREASE TEMP Aspirin 81 mg 07/18/23 09:00 07/18/23 10:10 Aspirin 81 Mg Ec Tablet PO 81 mg DAILY SAHARA Administration Heparin Sodium (Porcine) 0 unit 07/17/23 19:17 07/17/23 21:22 Heparin 5,000 Unit/Ml Inj 1 Ml IV 4,900 unit PRN PRN Administration Heparin weight-base protocol Protocol Aztreonam 1,000 mg/ Sodium 50 mls @ 100 mls/hr 07/05/23 18:00 07/18/23 06:08 Chloride IV 100 mls/hr Q12H SAHARA Administration Protocol Heparin Sodium/Sodium Chloride 25,000 unit in 500 mls @ 0 mls/hr 07/17/23 19:30 07/18/23 04:16 Heparin Drip IV 10.64 unit/kg/hr .Q0M SAHARA 21 mls/hr Titration Protocol Per Protocol Insulin Glargine 15 unit 07/17/23 06:00 07/18/23 06:55 Insulin Glargine 100 Units/1 Ml SUBCUT Not Given QAM [facility] Insulin Human Lispro 0 unit 07/16/23 08:00 07/18/23 06:55 Insulin Lispro 100 Unit/1 Ml SUBCUT Not Given TIDWM [facility] Protocol Insulin Human Lispro 0 unit 07/15/23 21:00 07/17/23 21:56 Insulin Lispro 100 Unit/1 Ml SUBCUT 2 unit BEDTIME [facility] Administration Protocol Lanolin 1 applic 07/05/23 20:51 07/05/23 21:02 Lanolin Oint 7 Gm TOPICAL 1 applic PRN PRN Administration DRYNESS Metoprolol Tartrate 25 mg 07/07/23 09:00 07/18/23 10:10 Metoprolol Tartrate 25 Mg Tablet PO 25 mg BID@0900,2100 [facility] Administration Ondansetron HCl 4 mg 07/01/23 19:25 07/17/23 11:04 Ondansetron 2 Mg/Ml Sdv 2 Ml IVP 4 mg Q6H PRN Administration NAUSEA AND VOMITING Thiamine Mononitrate 100 mg 07/02/23 14:40 07/18/23 10:11 Thiamine 100 Mg Tablet PO 100 mg DAILY SAHARA Administration Thyroid 60 mg 07/05/23 06:00 07/18/23 06:07 Thyroid 60 Mg Tablet PO 60 mg QAM [facility] Administration Tramadol HCl 50 mg 07/17/23 08:29 07/18/23 04:23 Tramadol 50 Mg Tablet PO 50 mg Q6H PRN Administration MODERATE PAIN PFSH Acute PFSH: Medical History SVT (supraventricular tachycardia) Gangrenous toe CKD (chronic kidney disease) Systolic heart failure Pleural effusion, left Non-healing ulcer Ischemic cardiomyopathy Diabetic ulcer of right foot Atherosclerosis of coronary artery Kidney stone Amputation toe Diabetes mellitus with peripheral vascular disease Diabetic neuropathy HTN (hypertension) Diabetes Surgical History H/O chest tube placement S/P cholecystectomy S/P tonsillectomy S/P cataract extraction Family History Father Cancer LUNG Mother CAD (coronary artery disease) Diabetes CHF (congestive heart failure) Myocardial infarction Social History Smoking and tobacco/nicotine status: never used tobacco/nicotine Alcohol intake: never Substance/Drug Use: never Household members: spouse Marital status: Current occupational status: retired Vitals/I&O/Wt Last Vital Signs Temp 98.3 F 07/18/23 03:36 Pulse 111 H 07/18/23 10:00 Resp 25 H 07/18/23 10:00 BP 134/81 07/18/23 10:00 Pulse Ox 100 07/18/23 10:00 O2 Del Method Room Air 07/18/23 07:46 O2 Flow Rate 1 07/17/23 08:23 FiO2 24 07/16/23 04:00 07/17/23 07/18/23 07/18/23 22:59 06:59 14:59 Intake Total 168 / 404 257.95 / 661.95 Output Total 40 / 40 35 / 75 Balance 128 / 364 222.95 / 586.95 Weight last 48 hrs Weight 217 lb 9.54 oz Weight 217 lb 9.54 oz Weight 217 lb 9.54 oz Physical Exam Narrative: GENERAL: The patient is alert and oriented times three. Not in any acute distress. Moderate pallor HEENT: No significant pallor, icterus or lymphadenopathy.Oral cavity: There are no mucous membrane lesions. NECK: Trachea appears to be central. No masses noted. No JVD or thyromegaly appreciated. RESPIRATORY: Dialysis catheter in the right subclavian some diffuse ecchymosis in the upper axillary region on the right side. No intercostals muscle retraction or any accessory muscle activation. There is no chest wall tenderness. Breath sounds are heard bilaterally. No rales or rhonchi heard. No evidence of any consolidation. BREASTS: Deferred. HEART: The heart sounds are normal. No S3 or S4. Short systolic murmur in the left sternal border. No diastolic murmurs. ABDOMEN: No vessel pulsations or distention. No tenderness. No organomegaly appreciated. Bowel sounds are normally heard. : Deferred. RECTAL: Deferred. LYMPHATIC: No lymphadenopathy noted in the neck. EXTREMITIES: 1-2+ edema both lower extremities; both legs are bandaged MUSCULOSKELETAL: No acute joint deformities or swelling SKIN: There are no significant rashes or ecchymosis NEUROPSYCHIATRIC: The patient is alert and oriented x3. Appears to be in a good mood. No tremors or rigidity noted. Urinary Catheter Management: K[place]aid: Cath Placed During This Visit: yes Reason for Continuing Indwelling Catheter: Accurate Measurement of Urinary Output in Critically Ill Patients Urinary Catheter Date of Insertion: 07/02/23 Urinary Catheter Time of Insertion: 03:30 Data 07/18/23 03:18 07/18/23 03:18 Other Labs: Laboratory Last Values WBC 9.34 10^3/uL (3.29-11.43) 07/18/23 03:18 Corrected WBC Cancelled 07/03/23 03:15 RBC 3.41 10^6/uL (3.85-5.65) L 07/18/23 03:18 Hgb 9.00 g/dL (11.27-16.99) L 07/18/23 03:18 Hct 30.7 % (37-53) L 07/18/23 03:18 MCV 90.0 fl (82-101) 07/18/23 03:18 MCH 26.4 pg (27-33) L 07/18/23 03:18 MCHC 29.3 g/dL (30-55) L 07/18/23 03:18 RDW 17.9 % (12.1-15.1) H 07/18/23 03:18 Plt Count 474 10^3/cmm (157-399) H 07/18/23 03:18 MPV 9.2 fL (7.4-10.4) 07/18/23 03:18 Gran % Cancelled 07/03/23 03:15 Neut % (Auto) 47.7 % 07/18/23 03:18 Lymph % (Auto) 41.2 % 07/18/23 03:18 [place] % (Auto) 7.1 % 07/18/23 03:18 Eos % (Auto) 2.9 % 07/18/23 03:18 Baso % (Auto) 0.6 % 07/18/23 03:18 Neut # (Auto) 4.45 10^3/uL (1.8-7.7) 07/18/23 03:18 Lymph # (Auto) 3.9 10^3/uL (0.8-4.8) 07/18/23 03:18 [place] # (Auto) 0.7 10^3/uL (0.2-0.9) 07/18/23 03:18 Eos # (Auto) 0.3 10^3/uL (0.0-0.8) 07/18/23 03:18 Baso # (Auto) 0.1 10^3/uL (0.0-0.1) 07/18/23 03:18 Absolute Gran (auto) Cancelled 07/03/23 03:15 Nucleated RBC % (auto) 0 % 07/18/23 03:18 Total Counted Not Reportable 07/16/23 11:42 Nucleated RBCs # 0.0 /100WBC 07/18/23 03:18 PT 17.20 SECONDS (12.1-14.9) H 07/11/23 05:04 INR 1.36 (0.8-1.2) H 07/11/23 05:04 APTT 58.1 SECONDS (23.9-36.7) H 07/18/23 09:58 Specimen Type Arterial 07/17/23 11:50 Sample Site Radial, left 07/17/23 11:50 ABG pH 7.38 (7.35-7.45) 07/17/23 11:50 ABG pCO2 51.0 mmHg (35-45) H 07/17/23 11:50 ABG pO2 72.9 mmHg (80.0-100.0) L 07/17/23 11:50 ABG PO2/FiO2 Ratio 0 07/12/23 15:20 ABG HCO3 30.1 mmol/L (22-26) H 07/17/23 11:50 ABG O2 Saturation 97.2 07/17/23 11:50 ABG Base Excess 4.3 mmol/L (-2.0-2.0) H 07/17/23 11:50 Peter Test Pos 07/17/23 11:50 A-a O2 Gradient 2.2 mmHg (5-10) L 07/17/23 11:50 Hematocrit 26.5 % (42-52) L 07/17/23 11:50 Hgb O2 Saturation 93.9 % (95-100) L 07/17/23 11:50 Carboxyhemoglobin 2.5 %THgb (0.4-20.1) 07/17/23 11:50 Methemoglobin 0.9 % (0.4-1.5) 07/17/23 11:50 Total Hemoglobin 8.7 g/dL (14-18) L 07/17/23 11:50 Sodium 135.0 mmol/L (131-143) 07/17/23 11:50 Potassium 4.4 mmol/L (3.5-5.0) 07/17/23 11:50 Glucose 140.0 mg/dL (70-115) H 07/17/23 11:50 Ionized Calcium 1.1 mmol/L (1.1-1.4) 07/17/23 11:50 O2 Delivery Device Room air 07/17/23 11:50 O2 Liters/Min 3.0 % 07/14/23 05:32 FiO2 24.0 % 07/12/23 15:20 Tidal Volume 0.40 07/12/23 15:20 PEEP 6.0 cmH20 07/12/23 15:20 Boat Rental Clerk ID Gd 07/17/23 11:50 Sodium 134 mmol/L (136-145) L 07/18/23 03:18 Potassium 5.2 mmol/L (3.5-5.1) H 07/18/23 03:18 Chloride 95 mmol/L (98-107) L 07/18/23 03:18 Carbon Dioxide 31 mmol/L (22-29) H 07/18/23 03:18 Anion Gap 13.2 (5-19) 07/18/23 03:18 BUN 54 mg/dL (8-23) H 07/18/23 03:18 Creatinine 4.1 mg/dL (0.7-1.2) H 07/18/23 03:18 GFR Calculation Not Reportable 07/18/23 03:18 Glucose 86 mg/dL (65-115) 07/18/23 03:18 POC Glucose 90 mg/dL (70-110) 07/18/23 12:19 Calculated Osmolality 315 mOsm/kg (285-295) H 07/14/23 03:29 Lactic Acid 0.9 mmol/L (0.5-2.2) 07/01/23 16:53 Lactate 1.1 mmol/L (0.5-2.2) 07/13/23 04:49 Calcium 8.4 mg/dL (8.5-10.5) L 07/18/23 03:18 Phosphorus 2.9 mg/dL (2.5-4.5) 07/18/23 03:18 Magnesium 2.1 mg/dL (1.7-2.3) 07/17/23 03:30 Total Bilirubin 0.4 mg/dL (0.15-1.2) 07/18/23 03:18 Direct Bilirubin 0.20 mg/dL (0.00-0.30) 07/18/23 03:18 AST 13 U/L (0-40) 07/18/23 03:18 ALT 9 U/L (0-41) 07/18/23 03:18 Alkaline Phosphatase 79 U/L (40-130) 07/18/23 03:18 Lactate Dehydrogenase 173 U/L (135-225) 07/16/23 11:07 Creatine Kinase 28 U/L (39-308) L 07/11/23 05:04 Troponin T 5th Gen ng/L 254 ng/L (0-15) H* 07/17/23 22:58 Troponin T Baseline 123 ng/L (0-15) H* 07/02/23 11:20 Troponin T 120 Minute 250.9 ng/L (0-15) H 07/17/23 14:00 Delta Troponin T 12.9 ABS# (0-10) H* 07/17/23 14:00 Troponin T Hi Sens 6Hr 263.2 ng/L (0-15) H 07/17/23 17:58 Troponin T Hi Sens 6Hr Delta 25.2 ng/L (0-12) H* 07/17/23 17:58 C-Reactive Protein 24.1 mg/L (0.0-4.9) H 07/14/23 03:29 NT-Pro-B Natriuret Pep 55559 pg/mL (0-125) H 07/14/23 03:29 Total Protein 5.9 g/dL (6.6-8.7) L 07/18/23 03:18 Albumin 3.9 g/dL (3.5-5.2) 07/18/23 03:18 Globulin 2.0 g/dL (1.3-4.6) 07/18/23 03:18 Procalcitonin 0.65 ng/mL (0-0.5) H 07/14/23 03:29 TSH 42.32 uIU/mL (0.27-4.20) H 07/10/23 04:58 Free T4 0.41 ng/dL (0.82-1.77) L 07/06/23 03:46 Free T3 1.3 PG/ML (2.0-4.4) L 07/06/23 03:46 Urine Color Yellow (Yellow) 07/02/23 04:19 Urine Appearance Clear (CLEAR) 07/02/23 04:19 Urine pH 5 (5-7) 07/02/23 04:19 Ur Specific [place] 1.015 (1.005-1.030) 07/02/23 04:19 Urine Protein 1+ (Negative) H 07/02/23 04:19 Urine Glucose (UA) Norm (Normal) 07/02/23 04:19 Urine Ketones Negative (Negative) 07/02/23 04:19 Urine Blood Neg (Negative) 07/02/23 04:19 Urine Nitrate Negative (Negative) 07/02/23 04:19 Urine Bilirubin Neg (Negative) 07/02/23 04:19 Urine Urobilinogen Neg mg/dL (Negative) 07/02/23 04:19 Ur Leukocyte Esterase Negative (Negative) 07/02/23 04:19 Urine RBC 0-4 /hpf (0-2) H 07/02/23 04:19 Urine WBC None /hpf (0-5) 07/02/23 04:19 Ur Squamous Epith Cells None /hpf (0-5) 07/02/23 04:19 Amorphous Sediment Not Reportable 07/02/23 04:19 Urine Bacteria Trace /hpf (NONE) 07/02/23 04:19 Urine Mucus 1+ /hpf 07/02/23 04:19 Fld Crystal Laterality Cancelled 07/16/23 11:42 Fluid Total Protein 2.7 g/dL 07/16/23 11:42 Pleural Color Red (Pale Yellow) H 07/16/23 11:42 Pleural Appearance Cloudy (CLEAR) 07/16/23 11:42 Pleural pH 8.00 (6.5-7.5) H 07/16/23 11:42 Pleural WBC 430.000 /uL (0-1000) 07/16/23 11:42 Pleural RBC 15.000 10^3/uL 07/16/23 11:42 Pleural Mononuc # Auto Cancelled 07/16/23 11:42 Pleural Other Cells Not Reportable 07/16/23 11:42 Pleural Polynuclear % 7 % 07/16/23 11:42 Pleural Polynuclear # Cancelled 07/16/23 11:42 Pleural Mononuclear % 93 % 07/16/23 11:42 Pleural Other Cells Rt Cancelled 07/16/23 11:42 Pleural Other Cells Lt Cancelled 07/16/23 11:42 Pleural Albumin 2.1 g/dL 07/16/23 11:42 Pleural LDH 90 U/L 07/16/23 11:42 Pleural Glucose 274.0 mg/dL 07/16/23 11:42 Pleural Amylase 6.0 U/L 07/16/23 11:42 Pleural Triglycerides 16 mg/dL 07/16/23 11:42 Nasal Influ A H1 2009 PCR Not detected (NOT DETECT) 07/02/23 12:25 Vancomycin Trough 29.1 ug/mL (10-15) H* 07/10/23 07:02 Adenovirus (PCR) Not detected (NOT DETECT) 07/02/23 12:25 C. pneumoniae DNA (PCR) Not detected (NOT DETECT) 07/02/23 12:25 Coronavirus 229E (PCR) Not detected (NOT DETECT) 07/02/23 12:25 Hep Bs Antigen Non-reactive (Nonreactive) 07/09/23 13:50 Hep Bs Antibody < 3.5 (11.5-1000) L 07/09/23 13:50 Hep B Core Total Ab Non-reactive (Nonreactive) 07/09/23 13:50 Human Metapneumovir PCR Not detected (NOT DETECT) 07/02/23 12:25 Influenza A (H1) PCR Not detected (NOT DETECT) 07/02/23 12:25 Influenza A (H3) PCR Not detected (NOT DETECT) 07/02/23 12:25 Influenza Type A (PCR) Not detected (NOT DETECT) 07/02/23 12:25 Influenza Type B (PCR) Not detected (NOT DETECT) 07/02/23 12:25 M. pneumoniae (PCR) Not detected (NOT DETECT) 07/02/23 12:25 Parainfluenza 1 (PCR) Not detected (NOT DETECT) 07/02/23 12:25 Parainfluenza 2 (PCR) Not detected (NOT DETECT) 07/02/23 12:25 Parainfluenza 3 (PCR) Not detected (NOT DETECT) 07/02/23 12:25 Parainfluenza 4 (PCR) Not detected (NOT DETECT) 07/02/23 12:25 RSV Type A (PCR) Not detected (NOT DETECT) 07/02/23 12:25 RSV Type B (PCR) Not detected (NOT DETECT) 07/02/23 12:25 Entero/Rhino (PCR) Not detected (NOT DETECT) 07/02/23 12:25 SARS-CoV-2 (PCR) Not detected (NOT DETECT) 07/02/23 12:25 Path Cons w/Slide Yes 07/16/23 11:42 Pathology Message Cancelled 07/16/23 11:42 Micro: Microbiology 07/16/23 11:42 Gram Stain - Final Pleural Fluid Body Fluid Culture - Preliminary Other data: EKG from 07/17/2023 normal sinus rhythm with diffuse nonspecific ST-T changes. Low voltage QRScomplexes Echocardiogram on 07/02/2023 Limited echo to assess the LV function. Mild concentric LVH. Mildly reduced LV systolic function with hypokinesis of mid anterior and anteroseptal wall segments. Estimated LVEF is mildly reduced 45 to 50%. Aortic valve appears significantly thickened with sclerosis and restricted movements of aortic valve leaflets. However any stenosis or regurgitation was not evaluated during the study. ECHO on 02/05/2023 Technically limited quality echocardiogram because of limited visualization LV systolic function is severely reduced with EF of 30 to 35%. Accurate assessment of regional wall motion abnormalities is not possible because of poor ultrasonic windows. Left atrial dilation Trace mitral regurgitation Mild aortic stenosis. Mild tricuspid regurgitation Compared to prior echocardiogram from 2019, no significant changes are seen A&P Assessment and plan (1) Elevated troponin: In view of the patient's acute kidney injury and tachycardia, this could very well be secondary to type II myocardial infarction. However because of his history of coronary disease and previous PCI, possibility of underlying coronary ischemia causing this cannot be excluded. The EKG is unremarkable. I discussed with the patient about doing a stress test to further evaluate the coronary status and decide on further management. The patient and his does not want to undergo any invasive or interventional procedures at this point. They just want to be treated medically. He may consider further cardiac workup, if he starts having chest pain (2) Atrial flutter: Patient is currently in sinus rhythm/sinus tachycardia. Because of his bleeding complication and intolerance to the Eliquis, it was decided to keep him on Plavix and aspirin. Patient and his understand the implications. Qualifiers: Atrial flutter type: typical Qualified Code(s): I48.3 - Typical atrial flutter (3) Ischemic cardiomyopathy: The left ventricular ejection fraction has improved. May continue on the current medication for the time being. (4) Atherosclerosis of coronary artery: As mentioned above. Qualifiers: Associated angina: with other forms of angina Coronary Disease-Associated Artery/Lesion type: [place] artery [place] vs. transplanted heart: [place] heart Qualified Code(s): I25.118 - Atherosclerotic heart disease of [place] coronary artery with other forms of angina pectoris (5) Hyperlipidemia: May continue on the current medications. Qualifiers: Hyperlipidemia type: mixed hyperlipidemia Qualified Code(s): E78.2 - Mixed hyperlipidemia (6) HTN (hypertension): May optimize antihypertensive medications. Qualifiers: Hypertension type: essential hypertension Qualified Code(s): I10 - Essential (primary) hypertension (7) Peripheral arterial disease: Continue on the current measures. Based on the clinical progress, further recommendations will be made. Thank you for the opportunity to evaluate this patient and make these recommendations Coding Level of Care Code 31678 Diagnoses Elevated troponin R79.89 Typical atrial flutter I48.3 Atrial flutter type: typical Ischemic cardiomyopathy I25.5 Atherosclerosis of [place] coronary artery of [place] heart with other form of angina pectoris I25.118 Associated angina: with other forms of angina Coronary Disease-Associated Artery/Lesion type: [place] artery [place] vs. transplanted heart: [place] heart Mixed hyperlipidemia E78.2 Hyperlipidemia type: mixed hyperlipidemia Essential hypertension I10 Hypertension type: essential hypertension Peripheral arterial disease I73.9
[2023-07-18] MEDS: clopidogrel 75 mg Tablet 150 MG PO (14:30)
[2023-07-18 14:31] LABS: Glucose Point of Care 114 mg/dL (70-110)
[2023-07-18] MEDS: heparin, porcine 1,000 unit/mL INJ 10 mL 10000 UNIT INTRACATH (15:49)
[2023-07-18 17:16] LABS: Glucose Point of Care 155 mg/dL (70-110)
[2023-07-18 20:44] LABS: Glucose Point of Care 223 mg/dL (70-110)
[2023-07-18] MEDS: insulin lispro 100 unit/1 mL SUBCUT (20:45)
[2023-07-19] VITALS (25 sets, daily range): BP systolic 104–139; BP diastolic 56–93; PULSE 75–113; RESP 9–30; TEMP 36.7–37; O2SAT 91–99
[2023-07-19] MEDS: aztreonam 1,000 MG in sodium chloride 0.9% (plus) 50 ML 100 MG IV (05:01)
[2023-07-19] MEDS: thyroid 60 mg Tablet PO (05:07)
[2023-07-19 05:10] LABS: Basophils # 0.1 10^3/uL (0.0-0.1); Basophils % 0.9 %; Eosinophils # 0.2 10^3/uL (0.0-0.8); Eosinophils % 3.1 %; Hematocrit 30.3 % (37-53); Lymphocytes # 2.1 10^3/uL (0.8-4.8); Mean Corpuscular HGB Conc 29.4 g/dL (30-55); Mean Corpuscular Volume 91.8 fl (82-101); Mean Platelet Volume 9.2 fL (7.4-10.4); Monocytes # 0.6 10^3/uL (0.2-0.9); Monocytes % 8.9 %; Neutrophils # 3.56 10^3/uL (1.8-7.7); Neutrophils % 54.6 %; Nucleated Red Blood Cells % 0 %; Platelet Count 444 10^3/cmm (157-399); Red Cell Distribution Width 18.2 % (12.1-15.1); White Blood Count 6.51 10^3/uL (3.29-11.43)
[2023-07-19 05:29] LABS: Alanine Aminotransferase 10 U/L (0-41); Albumin Level 3.8 g/dL (3.5-5.2); Alkaline Phosphatase 84 U/L (40-130); Anion Gap 13.7 (5-19); Aspartate Amino Transferase 14 U/L (0-40); Blood Urea Nitrogen 35 mg/dL (8-23); Calcium 8.2 mg/dL (8.5-10.5); Carbon Dioxide 29 mmol/L (22-29); Chloride 95 mmol/L (98-107); Glucose 143 mg/dL (65-115); Phosphorus 3.5 mg/dL (2.5-4.5); Potassium 4.7 mmol/L (3.5-5.1); Sodium 133 mmol/L (136-145); Total Bilirubin 0.4 mg/dL (0.15-1.2); Total Protein 5.8 g/dL (6.6-8.7)
--- NOTE | 2023-07-19 05:43 | PC.NURSE ---
Spoke with regarding patient with PICC line with no blood return, obtained order for alteplase for each lumen.
[2023-07-19] MEDS: insulin glargine 100 units/1 mL 15 UNIT SUBCUT (05:50)
--- NOTE | 2023-07-19 06:38 | PC.NURSE ---
Bedside report given to Slava LEIGH, made aware that awaiting alteplase from pharmacy for administration.
[2023-07-19 08:33] LABS: Glucose Point of Care 232 mg/dL (70-110)
[2023-07-19] MEDS: aspirin 81 mg EC Tablet PO (09:04)
[2023-07-19] MEDS: insulin lispro 100 unit/1 mL SUBCUT ×3 (09:04→21:01)
[2023-07-19] MEDS: clopidogrel 75 mg Tablet 150 MG PO (09:05)
[2023-07-19] MEDS: thiamine 100 mg Tablet PO (09:05)
[2023-07-19] MEDS: metoprolol tartrate 25 mg Tablet PO ×2 (09:07→21:00)
[2023-07-19 11:11] LABS: Glucose Point of Care 144 mg/dL (70-110)
--- NOTE | 2023-07-19 14:14 | P.PN_ITS ---
Subjective 2 Subjective: The patient is sitting in the room this morning with his at bedside. He is on room air while sitting down. He has no complaints at this time. He denies fever, chills, shortness of breath, chest pain, palpitations. He has not had a BM in over 3 days. He required BiPAP overnight. Vitals/I&O/Wt Last Vital Signs Temp 98.1 F 07/19/23 04:00 Pulse 105 H 07/19/23 13:00 Resp 12 07/19/23 13:00 BP 107/60 07/19/23 13:00 Pulse Ox 94 07/19/23 12:00 O2 Del Method Room Air 07/19/23 08:00 O2 Flow Rate 1 07/18/23 19:47 FiO2 24 07/19/23 04:20 07/18/23 07/19/23 07/19/23 22:59 06:59 14:59 Intake Total 650 / 665 80 / 745 400 / 400 Output Total 2800 / 2906 Balance -2150 / -2241 80 / -2161 400 / 400 Weight last 48 hrs Weight 95 kg Weight 98.7 kg Physical Exam 2 Const: GENERAL APPEARANCE: cooperative, comfortable and ill appearing N UTRITIONAL APPEARANCE: obese ORIENTATION/CONSCIOUSNESS: Yes awake, Yes oriented to person, Yes oriented to place and Yes oriented to time HENMT: COMMON NORMALS: normocephalic, atraumatic and external ears normal H EAD & SCALP: normal to inspection, normocephalic and atraumatic EXTERNAL EAR: Yes external ears normal MOUTH: Normal oral and palatal mucosa present T HROAT: posterior oropharynx normal Eye: COMMON NORMALS: Equal, round and reactive pupils present and conjunctivae normal CONJUNCTIVA: Yes conjunctivae normal PUPIL: Yes Equal, round and reactive pupils present EOM: No EOM abnormal Neck/C-Spine: COMMON NORMALS: Thyroid normal GENERAL: Yes normal visual inspection and Yes trachea midline THYROID: Thyroid normal CAROTIDS: No bruit Lymph: LYMPHATIC: No lymphadenopathy Resp: OTHER: diminishing breath sounds bilaterally from mid to lower lung west to the point that it is virtually absent in the b/l lower lung west. Cardio: OTHER: Irregular rate and rhythm, with no gallops, clicks, or rubs. Patient has 2/6 systolic murmurs in all 4 valves. GI: OTHER: Bowel sounds positive. Nontender, nondistended, no guarding, no rigidity, no rebound tenderness, and no hepatosplenomegaly appreciated on palpation. Extremity: NARRATIVE EXTREMITY EXAM: R. foot in a boot, L. foot wrapped by Dr. Baird GENERAL: No clubbing and No cyanosis Neuro: SENSORIUM/ORIENTATION: Yes oriented to person, Yes oriented to place and Yes oriented to time CRANIAL NERVES: Yes CN normal except as noted S PEECH: speech normal MOTOR EXAM: Normal motor muscle tone present throughout Psych: COMMON NORMALS: Normal thought process present and speech normal A PPEARANCE: Yes grossly normal ATTITUDE: Yes calm and Yes engaged A CTIVITY/MOTOR BEHAVIOR: Yes appropriate eye contact SPEECH: Yes normal speech MOOD & AFFECT: Yes euthymic mood THOUGHT PROCESS: Normal thought process present THOUGHT CONTENT: Yes Normal thought content present A TTENTION/CONCENTRATION: Yes attention grossly intact Skin: NARRATIVE SKIN EXAM: No rashes lesions or wounds on the skin except as noted above on the legs. Urinary Catheter Management: Kincaid: Cath Placed During This Visit: yes Reason for Continuing Indwelling Catheter: Accurate Measurement of Urinary Output in Critically Ill Patients Urinary Catheter Date of Insertion: 07/02/23 Urinary Catheter Time of Insertion: 03:30 Data 07/19/23 03:57 07/19/23 03:57 Micro: Microbiology 07/16/23 11:42 Anaerobic Culture - Preliminary Pleural Fluid 07/16/23 11:42 Gram Stain - Final Pleural Fluid Body Fluid Culture - Preliminary A&P Assessment and plan (1) Atrial fibrillation with RVR: (2) Acute HFrEF (heart failure with reduced ejection fraction): (3) Acute hyperkalemia: (4) ESRD on hemodialysis: (5) NSTEMI (non-ST elevated myocardial infarction): (6) Acute kidney injury superimposed on CKD: Plan Mr. 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 Baird for fever, chills, rigors noted in clinic and was admitted on 07/01/2023 for hyperkalemia (K+ of 6.7), SALLY on CKDIII. BCx were drawn and Nephrology was consulted. On admission, 07/02, he went into acute hypoxic, hypercapneic respiratory failure requiring BiPAP, due to Pulmonary Edema caused by Acute onset HFrEF. A TTE was done that showed an EF of 45-50% w/ hypokinesis of the mid-anterior and anteroseptal wall segments. He went into Afib w/ RVR on 07/04/2023 and was diuresed on the floor. He went into Acute hypercapneic resp. failure on 07/08 due to increasing vol overload in the setting of worsening renal fxn. He was transferred to the ICU again and placed on BiPAP. A. perm cath was plced on 07/10/2023 and it was complicated by a R. sided Pneumothorax requiring chest tube placement that was d/c'ed on 07/13. He initiated HD on 07/10. An overnight study to qualify him for BiPAP was attempted, and per case mgmt, he qualified by ABG, but his desaturations were monitored for only 3 minutes instead of 5 minutes. Cardiology on-call, Dr. Louis, was consulted regarding his elevated troponin on 07/17/2023, concern for NSTEMI type I versus NSTEMI type II that he had during the early part of his hospitalization, as well as the 's reticence about Eliquis. Per Dr. Louis, ok to d/c the heparin drip. Patient would benefit from a stress test in the future; however,t he patient and did not want invasive or interventional procedures at this point. They just wanted medical management for the patient; however, the patient would consider further cardiac workup if he started having chest pain. Regarding the Eliquis, ok to add Plavix to the patient's medication regimen, so it was started. #Acute Encephalopathy #Acute hypoxic hypercapneic respiratory failure: on Intermittent BiPAP including at night. -Will do 6-minute walk test today 07/19/2023, to determine the patient's O2 requirements. #b/l pneumonia vs pneumonitis: On Vanc/Aztreonam. Vanc d/c'ed on 07/10. On Aztreonam since 07/05/2023 #R.>>L Pleural effusion #Exudative Pleural effusion - CT chest shows b/l interstitial opacities concerning for pneumonia as well as b/l >L pleural effusion. Thoracentesis w/ pleural fluid labs ordered on 07/16/2023 - F/u Pleural fluid cxs. #Elevated Trop T on 07/17/2023: Consulted Cardiology on 07/18/2023. #NSTEMI (Type I vs Type II): On Aspirin, Statin. Consulted Cardiology on 07/18/2023. #Acute on chronic HFrEF. #Afib w/ RVR: Patient's declining Eliquis. Started on Plavix per discussion with cardiology. #PVD - On Aspirin, Statin #SALLY on CKDIII --> ESRD on HD via R. IJ perm cath - Contact Immigration Consultant to see whether she is ok w/ the patient getting CT w/ contrast. #Hyponatremia #Hyperkalemia - Managed w/ HD. #Hypothyroidism - [place] Thyroid #IDDM2: On moderate dose sliding scale. It was switched to Lantus 10units daily w/ low dose sliding scale insulin, low dose b/c the patient's nurse was worried that the patient had had episodes of hypoglycemia on the moderate SSI. #R. TMA wound #L. LE leg wound due to #Chronic venous insufficiency - Managed by [facility] Dr. Baird #Constipation: Will give a dose of milk of magnesia today, 07/19/2023 DVT ppx: Start Heparin drip. Attestations 2 Medical Necessity Statement*: Patient requires hospitalization for 2 more days. Coding Level of Care Code Acute Code for Chg Fwd Diagnoses Atrial fibrillation with RVR I48.91 Acute HFrEF (heart failure with reduced ejection fraction) I50.21 Acute hyperkalemia E87.5 ESRD on hemodialysis N18.6; Z99.2 NSTEMI (non-ST elevated myocardial infarction) I21.4 Acute kidney injury superimposed on CKD N17.9; N18.9
[2023-07-19 17:34] LABS: Glucose Point of Care 100 mg/dL (70-110)
[2023-07-19 20:55] LABS: Glucose Point of Care 208 mg/dL (70-110)
[2023-07-19] MEDS: acetaminophen 500 mg Tablet PO (23:30)
[2023-07-19] MEDS: TRAMadol 50 mg Tablet PO (23:31)
[2023-07-20] VITALS (12 sets, daily range): BP systolic 121–143; BP diastolic 68–78; PULSE 88–114; RESP 15–19; TEMP 36.4–37.1; O2SAT 95–100
[2023-07-20] MEDS: thyroid 60 mg Tablet PO (06:08)
[2023-07-20 06:13] LABS: Glucose Point of Care 96 mg/dL (70-110)
[2023-07-20 06:39] LABS: Glucose Point of Care 103 mg/dL (70-110)
[2023-07-20] MEDS: metoprolol tartrate 25 mg Tablet PO ×2 (09:10→22:22)
[2023-07-20] MEDS: aspirin 81 mg EC Tablet PO (09:10)
[2023-07-20] MEDS: thiamine 100 mg Tablet PO (09:10)
[2023-07-20 11:12] LABS: Glucose Point of Care 200 mg/dL (70-110)
[2023-07-20] MEDS: insulin lispro 100 unit/1 mL SUBCUT ×3 (11:32→22:23)
[2023-07-20 16:57] LABS: Glucose Point of Care 250 mg/dL (70-110)
--- NOTE | 2023-07-20 18:41 | P.PN_ITS ---
Subjective 2 Subjective: Yesterday, Mr. Alvarez was transferred out of the ICU. While in the ICU, 6- minute walk test was done, and he did not require oxygen during the walk. Mr. Alvarez was seen today. He had no complaints. He is on room air. I reviewed the results of the Pulse ox study done on the night of 07/17/2023 into 07/18/2023, and the patient appears to qualify for O2 at night. There were two times, where the patient's O2 sats decreased to 79% for greater than 10 seconds, thus qualifying him for O2 at night. Medications: Reviewed: Yes Vitals/I&O/Wt Last Vital Signs Temp 98.1 F 07/20/23 16:00 Pulse 114 H 07/20/23 16:00 Resp 16 07/20/23 16:00 BP 133/72 07/20/23 16:00 Pulse Ox 98 07/20/23 16:00 O2 Del Method Room Air 07/20/23 16:00 O2 Flow Rate 1 07/18/23 19:47 FiO2 24 07/20/23 01:58 07/20/23 07/20/23 07/20/23 06:59 14:59 22:59 Intake Total 840 / 840 480 / 1320 Output Total 175 / 175 Balance 665 / 665 480 / 1145 Weight last 48 hrs Weight 95.118 kg Weight 94.801 kg Physical Exam 2 Const: GENERAL APPEARANCE: cooperative, comfortable and ill appearing N UTRITIONAL APPEARANCE: obese ORIENTATION/CONSCIOUSNESS: Yes awake, Yes oriented to person, Yes oriented to place and Yes oriented to time HENMT: COMMON NORMALS: normocephalic, atraumatic and external ears normal H EAD & SCALP: normal to inspection, normocephalic and atraumatic EXTERNAL EAR: Yes external ears normal MOUTH: Normal oral and palatal mucosa present T HROAT: posterior oropharynx normal Eye: COMMON NORMALS: Equal, round and reactive pupils present and conjunctivae normal CONJUNCTIVA: Yes conjunctivae normal PUPIL: Yes Equal, round and reactive pupils present EOM: No EOM abnormal Neck/C-Spine: COMMON NORMALS: Thyroid normal GENERAL: Yes normal visual inspection and Yes trachea midline THYROID: Thyroid normal CAROTIDS: No bruit Lymph: LYMPHATIC: No lymphadenopathy Resp: OTHER: diminishing breath sounds bilaterally from mid to lower lung west to the point that it is virtually absent in the b/l lower lung west. Cardio: OTHER: Irregular rate and rhythm, with no gallops, clicks, or rubs. Patient has 2/6 systolic murmurs in all 4 valves. GI: OTHER: Bowel sounds positive. Nontender, nondistended, no guarding, no rigidity, no rebound tenderness, and no hepatosplenomegaly appreciated on palpation. Extremity: NARRATIVE EXTREMITY EXAM: R. foot in a boot, L. foot wrapped by Dr. Baird GENERAL: No clubbing and No cyanosis Neuro: SENSORIUM/ORIENTATION: Yes oriented to person, Yes oriented to place and Yes oriented to time CRANIAL NERVES: Yes CN normal except as noted S PEECH: speech normal MOTOR EXAM: Normal motor muscle tone present throughout Psych: COMMON NORMALS: Normal thought process present and speech normal A PPEARANCE: Yes grossly normal ATTITUDE: Yes calm and Yes engaged A CTIVITY/MOTOR BEHAVIOR: Yes appropriate eye contact SPEECH: Yes normal speech MOOD & AFFECT: Yes euthymic mood THOUGHT PROCESS: Normal thought process present THOUGHT CONTENT: Yes Normal thought content present A TTENTION/CONCENTRATION: Yes attention grossly intact Skin: NARRATIVE SKIN EXAM: No rashes lesions or wounds on the skin except as noted above on the legs. Urinary Catheter Management: Kincaid: Cath Placed During This Visit: yes Reason for Continuing Indwelling Catheter: Accurate Measurement of Urinary Output in Critically Ill Patients Urinary Catheter Date of Insertion: 07/02/23 Urinary Catheter Time of Insertion: 03:30 Data 07/19/23 03:57 07/19/23 03:57 Micro: Microbiology 07/16/23 11:42 Anaerobic Culture - Preliminary Pleural Fluid 07/16/23 11:42 Gram Stain - Final Pleural Fluid Body Fluid Culture - Final A&P Assessment and plan (1) Atrial fibrillation with RVR: (2) Acute HFrEF (heart failure with reduced ejection fraction): (3) Acute hyperkalemia: (4) ESRD on hemodialysis: (5) NSTEMI (non-ST elevated myocardial infarction): (6) Acute kidney injury superimposed on CKD: Plan Mr. 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 Baird for fever, chills, rigors noted in clinic and was admitted on 07/01/2023 for hyperkalemia (K+ of 6.7), SALLY on CKDIII. BCx were drawn and Nephrology was consulted. On admission, 07/02, he went into acute hypoxic, hypercapneic respiratory failure requiring BiPAP, due to Pulmonary Edema caused by Acute onset HFrEF. A TTE was done that showed an EF of 45-50% w/ hypokinesis of the mid-anterior and anteroseptal wall segments. He went into Afib w/ RVR on 07/04/2023 and was diuresed on the floor. He went into Acute hypercapneic resp. failure on 07/08 due to increasing vol overload in the setting of worsening renal fxn. He was transferred to the ICU again and placed on BiPAP. A. perm cath was plced on 07/10/2023 and it was complicated by a R. sided Pneumothorax requiring chest tube placement that was d/c'ed on 07/13. He initiated HD on 07/10. An overnight study to qualify him for BiPAP was attempted, and per case mgmt, he qualified by ABG, but his desaturations were monitored for only 3 minutes instead of 5 minutes. Cardiology on-call, Dr. Louis, was consulted regarding his elevated troponin on 07/17/2023, concern for NSTEMI type I versus NSTEMI type II that he had during the early part of his hospitalization, as well as the 's reticence about Eliquis. Per Dr. Louis, ok to d/c the heparin drip. Patient would benefit from a stress test in the future; however,t he patient and did not want invasive or interventional procedures at this point. They just wanted medical management for the patient; however, the patient would consider further cardiac workup if he started having chest pain. Regarding the Eliquis, ok to add Plavix to the patient's medication regimen, so it was started. #Acute Encephalopathy #Acute hypoxic hypercapneic respiratory failure: on Intermittent BiPAP including at night. At this time, he is on BiPAP at night likely due to LACHO. He will need a sleep study referral on discharge. . -PAtient did a 6-minute walk test on 07/19/2023 & did not need O2 w/ activity. #b/l pneumonia vs pneumonitis: On Vanc/Aztreonam. Vanc d/c'ed on 07/10. On Aztreonam since 07/05/2023 #R.>>L Pleural effusion #Exudative Pleural effusion - CT chest shows b/l interstitial opacities concerning for pneumonia as well as b/l >L pleural effusion. Thoracentesis w/ pleural fluid labs ordered on 07/16/2023 - F/u Pleural fluid cxs are negative. #L Pleural effusion: Ordered US thoracentesis. Need to discuss with radiology to see whether the pleural effusion is sufficient for thoracentesis. If the pleural effusions is insufficient for thoracentesis, patient can be discharged w/ home O2. #Elevated Trop T on 07/17/2023: Consulted Cardiology on 07/18/2023. #NSTEMI (Type I vs Type II): On Aspirin, Statin. Consulted Cardiology on 07/18/2023. #Acute on chronic HFrEF. #Afib w/ RVR: Patient's declining Eliquis. Started on Plavix per discussion with cardiology. #PVD - Discharge On Aspirin, Statin, and Plavix, but no Eliquis. #SLALY on CKDIII --> ESRD on HD via R. IJ perm cath - Contact [employer] to see whether she is ok w/ the patient getting CT w/ contrast. #Hyponatremia #Hyperkalemia - Managed w/ HD. #Hypothyroidism - Resume [place] Thyroid #IDDM2: On moderate dose sliding scale. It was switched to Lantus 10units daily w/ low dose sliding scale insulin, low dose b/c the patient's nurse was worried that the patient had had episodes of hypoglycemia on the moderate SSI. #R. TMA wound #L. LE leg wound due to #Chronic venous insufficiency - Managed by [facility] Dr. Baird #Constipation: Will give a dose of milk of magnesia today, 07/19/2023 DVT ppx:Lovenox Attestations 2 Medical Necessity Statement*: Patient remains hospitalized pending arrangement of O2 and final evaluation of breath left pleural effusion prior to discharge. Coding Level of Care Code 20039 Diagnoses Atrial fibrillation with RVR I48.91 Acute HFrEF (heart failure with reduced ejection fraction) I50.21 Acute hyperkalemia E87.5 ESRD on hemodialysis N18.6; Z99.2 NSTEMI (non-ST elevated myocardial infarction) I21.4 Acute kidney injury superimposed on CKD N17.9; N18.9
--- NOTE | 2023-07-20 19:54 | P.PN_ITS ---
Subjective 2 Subjective: no new complaints Medications: Reviewed: Yes Vitals/I&O/Wt Last Vital Signs Temp 98.1 F 07/20/23 16:00 Pulse 114 H 07/20/23 16:00 Resp 16 07/20/23 16:00 BP 133/72 07/20/23 16:00 Pulse Ox 98 07/20/23 16:00 O2 Del Method Room Air 07/20/23 16:00 O2 Flow Rate 1 07/18/23 19:47 FiO2 24 07/20/23 01:58 07/20/23 07/20/23 07/20/23 06:59 14:59 22:59 Intake Total 840 / 840 480 / 1320 Output Total 175 / 175 Balance 665 / 665 480 / 1145 Weight last 48 hrs Weight 95.118 kg Weight 94.801 kg Physical Exam 2 Narrative: Awake, alert , no distress S1S2 RRR per report + edema Urinary Catheter Management: Kincaid: Cath Placed During This Visit: yes Reason for Continuing Indwelling Catheter: Accurate Measurement of Urinary Output in Critically Ill Patients Urinary Catheter Date of Insertion: 07/02/23 Urinary Catheter Time of Insertion: 03:30 Data 07/19/23 03:57 07/19/23 03:57 Micro: Microbiology 07/16/23 11:42 Anaerobic Culture - Preliminary Pleural Fluid 07/16/23 11:42 Gram Stain - Final Pleural Fluid Body Fluid Culture - Final A&P Assessment and plan (1) Acute kidney injury superimposed on CKD: Plan 1. Acute on chronic kidney disease stage III: Baseline creatinine is in the mid 1 range, had prior SALLY requiring temporary hemodialysis due to contrast nephropathy -Patient presented with SALLY with a creatinine of 3.5 on presentation likely prerenal/ATN. Nonoliguric. no improvement in renal function - initiated HD for volume management , next HD friday - Arrange out pt HD 2. Hyperkalemia:, low K diet, improved 3. Hypernatremia ,improved 4. History of CHF, with low ejection fraction 35 to 45%, 5. History of peripheral vascular disease and right TMA in the past 6. Metabolic alkalosis - contraction alkalosis ,stable Patient evaluated using audiovisual cart. Time spent 20minutes. Attestations 2 Medical Necessity Statement*: per medicine team Coding Level of Care Code Acute Code for Chg Fwd Diagnoses Acute kidney injury superimposed on CKD N17.9; N18.9
[2023-07-20 21:25] LABS: Glucose Point of Care 219 mg/dL (70-110)
[2023-07-20] MEDS: TRAMadol 50 mg Tablet PO (22:22)
[2023-07-20] MEDS: acetaminophen 500 mg Tablet PO (22:23)
[2023-07-21] VITALS (10 sets, daily range): BP systolic 122–177; BP diastolic 66–99; PULSE 77–105; RESP 16–24; TEMP 36.4–37.6; O2SAT 94–99; BMI 29.3
--- NOTE | 2023-07-21 02:33 | SUR.OPER ---
Assumed care of the pt at this time
[2023-07-21 05:21] LABS: Basophils # 0.1 10^3/uL (0.0-0.1); Eosinophils # 0.2 10^3/uL (0.0-0.8); Eosinophils % 3.3 %; Hematocrit 29.7 % (37-53); Lymphocytes # 2.9 10^3/uL (0.8-4.8); Lymphocytes % 40.9 %; Mean Corpuscular HGB Conc 30.3 g/dL (30-55); Mean Corpuscular Hemoglobin 26.7 pg (27-33); Mean Corpuscular Volume 88.1 fl (82-101); Mean Platelet Volume 9.1 fL (7.4-10.4); Monocytes # 0.6 10^3/uL (0.2-0.9); Monocytes % 8.5 %; Neutrophils # 3.25 10^3/uL (1.8-7.7); Nucleated Red Blood Cells % 0 %; Platelet Count 397 10^3/cmm (157-399); Red Blood Count 3.37 10^6/uL (3.85-5.65); Red Cell Distribution Width 18.6 % (12.1-15.1); White Blood Count 7.05 10^3/uL (3.29-11.43)
[2023-07-21 05:30] LABS: INR 1.13 (0.8-1.2)
[2023-07-21 05:31] LABS: Partial Thromboplastin Time 35.8 SECONDS (23.9-36.7)
[2023-07-21 05:34] LABS: Alanine Aminotransferase 9 U/L (0-41); Albumin Level 3.8 g/dL (3.5-5.2); Alkaline Phosphatase 82 U/L (40-130); Anion Gap 14.7 (5-19); Aspartate Amino Transferase 9 U/L (0-40); Blood Urea Nitrogen 51 mg/dL (8-23); Calcium 8.3 mg/dL (8.5-10.5); Carbon Dioxide 26 mmol/L (22-29); Chloride 96 mmol/L (98-107); Globulin 1.9 g/dL (1.3-4.6); Glucose 156 mg/dL (65-115); Magnesium 2.3 mg/dL (1.7-2.3); Phosphorus 3.9 mg/dL (2.5-4.5); Potassium 4.7 mmol/L (3.5-5.1); Sodium 132 mmol/L (136-145); Total Bilirubin 0.4 mg/dL (0.15-1.2); Total Protein 5.7 g/dL (6.6-8.7)
[2023-07-21 05:44] LABS: Lactate Dehydrogenase 155 U/L (135-225)
[2023-07-21 06:27] LABS: Glucose Point of Care 178 mg/dL (70-110)
[2023-07-21] MEDS: insulin glargine 100 units/1 mL 15 UNIT SUBCUT (06:50)
[2023-07-21] MEDS: thyroid 60 mg Tablet PO (06:50)
[2023-07-21] MEDS: aspirin 81 mg EC Tablet PO (08:00)
[2023-07-21] MEDS: insulin lispro 100 unit/1 mL SUBCUT (08:00)
[2023-07-21] MEDS: thiamine 100 mg Tablet PO (08:00)
[2023-07-21] MEDS: metoprolol tartrate 25 mg Tablet 50 MG PO (08:00)
[2023-07-21] MEDS: enoxaparin 30 mg/0.3 mL Syringe SUBCUT (08:27)
--- NOTE | 2023-07-21 08:28 | PC.NURSE ---
Lovenox 30mg administered late due to order being put in late and back timed.
--- NOTE | 2023-07-21 11:56 | PC.HD ---
Per newspaper vendor's orders, heparin 1000 units loading dose administered at 11:42 via venous port of HD catheter.
[2023-07-21 12:08] LABS: Glucose Point of Care 174 mg/dL (70-110)
--- NOTE | 2023-07-21 12:24 | PC.SOCIAL ---
IMM Updated Updated pt & on IMM. No questions voiced. Provided pt a copy. Initialed, dated, & timed copy in chart.
--- NOTE | 2023-07-21 14:02 | P.PN_ITS ---
Subjective 2 Subjective: getting HD Medications: Reviewed: Yes Vitals/I&O/Wt Last Vital Signs Temp 97.6 F 07/21/23 12:00 Pulse 79 07/21/23 12:00 Resp 18 07/21/23 12:00 BP 143/76 07/21/23 12:00 Pulse Ox 97 07/21/23 12:00 O2 Del Method Room Air 07/21/23 12:00 O2 Flow Rate 1 07/18/23 19:47 FiO2 24 07/21/23 04:58 07/20/23 07/21/23 07/21/23 22:59 06:59 14:59 Intake Total 480 / 1320 360 / 360 Balance 480 / 1145 360 / 360 Weight last 48 hrs Weight 95.436 kg Weight 95.118 kg Physical Exam 2 Narrative: Awake, alert , no distress S1S2 RRR per report + edema Urinary Catheter Management: Kincaid: Cath Placed During This Visit: yes Reason for Continuing Indwelling Catheter: Accurate Measurement of Urinary Output in Critically Ill Patients Urinary Catheter Date of Insertion: 07/02/23 Urinary Catheter Time of Insertion: 03:30 Data 07/21/23 04:58 07/21/23 04:58 Micro: Microbiology 07/16/23 11:42 Anaerobic Culture - Preliminary Pleural Fluid A&P Assessment and plan (1) Acute kidney injury superimposed on CKD: Plan 1. Acute on chronic kidney disease stage III: Baseline creatinine is in the mid 1 range, had prior SALLY requiring temporary hemodialysis due to contrast nephropathy -Patient presented with SALLY with a creatinine of 3.5 on presentation likely prerenal/ATN. Nonoliguric. no improvement in renal function - initiated HD for volume management , next HD today - Arrange out pt HD 2. Hyperkalemia:, low K diet, improved 3. Hypernatremia ,improved 4. History of CHF, with low ejection fraction 35 to 45%, 5. History of peripheral vascular disease and right TMA in the past 6. Metabolic alkalosis - contraction alkalosis ,stable Patient evaluated using audiovisual cart. Time spent 20minutes. Attestations 2 Medical Necessity Statement*: per medicine Coding Level of Care Code Acute Code for Chg Fwd Diagnoses Acute kidney injury superimposed on CKD N17.9; N18.9
--- NOTE | 2023-07-21 14:08 | PC.HD ---
Per personal development coach's order, heparin 500 unit maintenance dose administered via HD circuit at 12:45 and 13:45.
[2023-07-21] MEDS: hyDRALAzine 25 mg Tablet PO (14:43)
--- NOTE | 2023-07-21 14:59 | PC.HD ---
At conclusion of treatment, heparin 2200 units and heparin 2300 units were instilled into the HD catheter arterial and venous ports, respectively per produce department manager's orders. Epogen not obtained prior to treatment end; primary RN to obtain orders to administer sub-q.
[2023-07-21] MEDS: epoetin alfa 1000 Unit/0.05 mL (ESRD) 20000 UNIT SUBCUT (15:00)
--- NOTE | 2023-07-21 16:01 | P.DS_ITS ---
Discharge Providers Date of Admission: 07/02/23 00:45 Date of Discharge: July 21, 2023 Attending Provider at Admission: Arnulfo Frances MD Attending Provider at Discharge: Leeroy Dye DO Primary Care Provider: Beatriz Brady Diagnoses at Discharge Discharge Diagnosis (1) Acute kidney injury superimposed on CKD: Status: Acute Reason for Visit Reason for Visit: Baird sent down, low 02 stats, chills Brief History: Usman Alvarez is a 73 year old male with history of improved cardiomyopathy from 35% to 45% after stent placement, diabetes, peripheral vascular disease, not a good candidate for femoropopliteal bypass, 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 Baird once a month, venous stasis dermatitis, history of contrast-induced nephropathy leading to ATN required temporary dialysis catheter placement in 2 dialysis sessions which improved his kidney function, referred from Dr. Baird's clinic for chills/rigors. Patient is drowsy after getting hyperkalemic treatment. His sugar was low he was getting D50 amp at the time of my evaluation I requested ABG. Patient does have hyperkalemia with acute on chronic kidney disease. As per the he has not been eating very well but they have not followed potassium restricted diet, patient was also getting potassium with Lasix about 40 mEq, Patient is not a provide history because of his drowsiness He is full code Hospital Course Hospital Course Mr. 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 Baird for fever, chills, rigors noted in clinic and was admitted on 07/01/2023 for hyperkalemia (K+ of 6.7), SALLY on CKDIII. BCx were drawn and Nephrology was consulted. On admission, 07/02, he went into acute hypoxic, hypercapneic respiratory failure requiring BiPAP, due to Pulmonary Edema caused by Acute onset HFrEF. A TTE was done that showed an EF of 45-50% w/ hypokinesis of the mid-anterior and anteroseptal wall segments. He went into Afib w/ RVR on 07/04/2023 and was diuresed on the floor. He went into Acute hypercapneic resp. failure on 07/08 due to increasing vol overload in the setting of worsening renal fxn. He was transferred to the ICU again and placed on BiPAP. A. perm cath was plced on 07/10/2023 and it was complicated by a R. sided Pneumothorax requiring chest tube placement that was d/c'ed on 07/13. He initiated HD on 07/10. An overnight study to qualify him for BiPAP was attempted, and per case mgmt, he qualified by ABG, but his desaturations were monitored for only 3 minutes instead of 5 minutes. Cardiology on-call, Dr. Louis, was consulted regarding his elevated troponin on 07/17/2023, concern for NSTEMI type I versus NSTEMI type II that he had during the early part of his hospitalization, as well as the 's reticence about Eliquis. Per Dr. Louis, ok to d/c the heparin drip. Patient would benefit from a stress test in the future; however,t he patient and did not want invasive or interventional procedures at this point. They just wanted medical management for the patient; however, the patient would consider further cardiac workup if he started having chest pain. Regarding the Eliquis, ok to add Plavix to the patient's medication regimen, so it was started. Patient had overnight pulse oximetry which showed that he qualified for O2 at [facility]. Patient does not qualify for BiPAP or CPAP. He may benefit from a sleep study after recovery from hospitalization as an outpatient Physical Exam Narrative: Alert alert and oriented to person place time and situation nonfocal NAD Heart regular somewhat tachycardic soft systolic murmur auscultated Lungs clear anteriorly Chest over right dialysis catheter in place in the right chest marked ecchymosis in the lower right lateral chest as well as dependent right arm Abdomen soft nontender nondistended positive bowel sounds Extremities bilateral pitting edema but improving per Urinary Catheter Management: Kincaid: Cath Placed During This Visit: yes Reason for Continuing Indwelling Catheter: Accurate Measurement of Urinary Output in Critically Ill Patients Urinary Catheter Date of Insertion: 07/02/23 Urinary Catheter Time of Insertion: 03:30 Discharge Data Studies Completed and Pending Completed Studies During Hospitalization Category Date Time Status CT chest w con* [id number] Routine Cat Scan 07/15/23 21:[address] chest wo con [id number] Stat Cat Scan 07/01/23 16:58 Completed CXRP [XR chest 1V portable [id number]] Routine Exams 07/10/23 09:21 Completed CXRP [XR chest 1V portable [id number]] Stat Exams 07/17/23 11:43 Completed FL barium swallow modifd [id number] Routine Exams 07/07/23 11:15 Completed XR chest 1V portable [id number] Routine Exams 07/05/23 08:34 Completed XR chest 1V portable [id number] Routine Exams 07/06/23 07:00 Completed XR chest 1V portable [id number] Routine Exams 07/09/23 07:00 Completed XR chest 1V portable [id number] Routine Exams 07/10/23 10:09 Completed XR chest 1V portable [id number] Routine Exams 07/10/23 12:10 Completed XR chest 1V portable [id number] Routine Exams 07/11/23 07:00 Completed XR chest 1V portable [id number] Routine Exams 07/12/23 07:00 Completed XR chest 1V portable [id number] Routine Exams 07/13/23 07:00 Completed XR chest 1V portable [id number] Routine Exams 07/13/23 22:00 Completed XR chest 1V portable [id number] Stat Exams 07/01/23 15:55 Completed XR chest 1V portable [id number] Stat Exams 07/05/23 13:08 Completed XR chest 1V portable [id number] Stat Exams 07/11/23 08:25 Completed XR chest 1V portable [id number] Stat Exams 07/12/23 16:17 Completed XR chest 1V portable [id number] Stat Exams 07/13/23 11:36 Completed XR chest 1V portable [id number] Stat Exams 07/13/23 17:00 Completed XR chest 1V portable [id number] Stat Exams 07/14/23 05:15 Completed XR chest 1V portable [id number] Stat Exams 07/16/23 11:32 [place] [id number] Stat Ultrasound 07/02/23 10:16 Completed CV. echo limited [id number] Routine Ultrasound 07/02/23 10:16 Completed US soft tissue and or extremity [US soft tissue/ Ultrasound 07/17/23 08:23 Completed extremity 84528] Routine US thoracentesis [id number] Routine Ultrasound 07/16/23 09:37 Completed US venous duplex upper extremity RT [CV venous duplex Ultrasound 07/17/23 08:[place] [id number]] Routine Pending at discharge Category Date Time Status Anaerobic Culture Routine Lab 07/16/23 11:42 Results CBC Auto Diff [Complete Blood Count w/Auto] AM LABS Lab 07/22/23 04:00 Ordered CBC Auto Diff [Complete Blood Count w/Auto] AM LABS Lab 07/23/23 04:00 Ordered Fungal Culture not HR/SK/BL Routine Lab 07/16/23 11:42 Received Liver Panel AM LABS Lab 07/22/23 04:00 Ordered Liver Panel AM LABS Lab 07/23/23 04:00 Ordered Mycobacteria, Culture w/Fluor Routine Lab 07/16/23 11:42 Received Prothrombin Time INR AM LABS Lab 07/22/23 04:00 Ordered Prothrombin Time INR AM LABS Lab 07/23/23 04:00 Ordered US thoracentesis [id number] Routine Ultrasound 07/22/23 06:00 Ordered Radiology Impressions Chest CT 07/15/23 21:16 IMPRESSION: 1. Negative for pulmonary embolus. 2. Moderate to large right and small left pleural effusion. 3. Cardiomegaly. 4. Coronary artery atherosclerotic calcifications. 5. Cholecystectomy. 6. Patchy bilateral dependent airspace infiltrates . Soft Tissue Ultrasound 07/17/23 08:23 IMPRESSION: Unremarkable US. Laboratory Results WBC 7.05 10^3/uL (3.29-11.43) 07/21/23 04:58 Corrected WBC Cancelled 07/03/23 03:15 RBC 3.37 10^6/uL (3.85-5.65) L 07/21/23 04:58 Hgb 9.00 g/dL (11.27-16.99) L 07/21/23 04:58 Hct 29.7 % (37-53) L 07/21/23 04:58 MCV 88.1 fl (82-101) 07/21/23 04:58 MCH 26.7 pg (27-33) L 07/21/23 04:58 MCHC 30.3 g/dL (30-55) 07/21/23 04:58 RDW 18.6 % (12.1-15.1) H 07/21/23 04:58 Plt Count 397 10^3/cmm (157-399) 07/21/23 04:58 MPV 9.1 fL (7.4-10.4) 07/21/23 04:58 Gran % Cancelled 07/03/23 03:15 Neut % (Auto) 46.0 % 07/21/23 04:58 Lymph % (Auto) 40.9 % 07/21/23 04:58 Collin % (Auto) 8.5 % 07/21/23 04:58 Eos % (Auto) 3.3 % 07/21/23 04:58 Baso % (Auto) 1.0 % 07/21/23 04:58 Neut # (Auto) 3.25 10^3/uL (1.8-7.7) 07/21/23 04:58 Lymph # (Auto) 2.9 10^3/uL (0.8-4.8) 07/21/23 04:58 Collin # (Auto) 0.6 10^3/uL (0.2-0.9) 07/21/23 04:58 Eos # (Auto) 0.2 10^3/uL (0.0-0.8) 07/21/23 04:58 Baso # (Auto) 0.1 10^3/uL (0.0-0.1) 07/21/23 04:58 Absolute Gran (auto) Cancelled 07/03/23 03:15 Nucleated RBC % (auto) 0 % 07/21/23 04:58 Total Counted Not Reportable 07/16/23 11:42 Nucleated RBCs # 0.0 /100WBC 07/21/23 04:58 PT 14.90 SECONDS (12.1-14.9) 07/21/23 04:58 INR 1.13 (0.8-1.2) 07/21/23 04:58 APTT 35.8 SECONDS (23.9-36.7) 07/21/23 04:58 Specimen Type Arterial 07/17/23 11:50 Sample Site Radial, left 07/17/23 11:50 ABG pH 7.38 (7.35-7.45) 07/17/23 11:50 ABG pCO2 51.0 mmHg (35-45) H 07/17/23 11:50 ABG pO2 72.9 mmHg (80.0-100.0) L 07/17/23 11:50 ABG PO2/FiO2 Ratio 0 07/12/23 15:20 ABG HCO3 30.1 mmol/L (22-26) H 07/17/23 11:50 ABG O2 Saturation 97.2 07/17/23 11:50 ABG Base Excess 4.3 mmol/L (-2.0-2.0) H 07/17/23 11:50 Peter Test Pos 07/17/23 11:50 A-a O2 Gradient 2.2 mmHg (5-10) L 07/17/23 11:50 Hematocrit 26.5 % (42-52) L 07/17/23 11:50 Hgb O2 Saturation 93.9 % (95-100) L 07/17/23 11:50 Carboxyhemoglobin 2.5 %THgb (0.4-20.1) 07/17/23 11:50 Methemoglobin 0.9 % (0.4-1.5) 07/17/23 11:50 Total Hemoglobin 8.7 g/dL (14-18) L 07/17/23 11:50 Sodium 135.0 mmol/L (131-143) 07/17/23 11:50 Potassium 4.4 mmol/L (3.5-5.0) 07/17/23 11:50 Glucose 140.0 mg/dL (70-115) H 07/17/23 11:50 Ionized Calcium 1.1 mmol/L (1.1-1.4) 07/17/23 11:50 O2 Delivery Device Room air 07/17/23 11:50 O2 Liters/Min 3.0 % 07/14/23 05:32 FiO2 24.0 % 07/12/23 15:20 Tidal Volume 0.40 07/12/23 15:20 PEEP 6.0 cmH20 07/12/23 15:20 Pan Pusher ID Gd 07/17/23 11:50 Sodium 132 mmol/L (136-145) L 07/21/23 04:58 Potassium 4.7 mmol/L (3.5-5.1) 07/21/23 04:58 Chloride 96 mmol/L (98-107) L 07/21/23 04:58 Carbon Dioxide 26 mmol/L (22-29) 07/21/23 04:58 Anion Gap 14.7 (5-19) 07/21/23 04:58 BUN 51 mg/dL (8-23) H 07/21/23 04:58 Creatinine 3.5 mg/dL (0.7-1.2) H 07/21/23 04:58 GFR Calculation Not Reportable 07/21/23 04:58 Glucose 156 mg/dL (65-115) H 07/21/23 04:58 POC Glucose 174 mg/dL (70-110) H 07/21/23 11:28 Calculated Osmolality 315 mOsm/kg (285-295) H 07/14/23 03:29 Lactic Acid 0.9 mmol/L (0.5-2.2) 07/01/23 16:53 Lactate 1.1 mmol/L (0.5-2.2) 07/13/23 04:49 Calcium 8.3 mg/dL (8.5-10.5) L 07/21/23 04:58 Phosphorus 3.9 mg/dL (2.5-4.5) 07/21/23 04:58 Magnesium 2.3 mg/dL (1.7-2.3) 07/21/23 04:58 Total Bilirubin 0.4 mg/dL (0.15-1.2) 07/21/23 04:58 Direct Bilirubin 0.20 mg/dL (0.00-0.30) 07/21/23 04:58 AST 9 U/L (0-40) 07/21/23 04:58 ALT 9 U/L (0-41) 07/21/23 04:58 Alkaline Phosphatase 82 U/L (40-130) 07/21/23 04:58 Lactate Dehydrogenase 155 U/L (135-225) 07/21/23 04:58 Creatine Kinase 28 U/L (39-308) L 07/11/23 05:04 Troponin T 5th Gen ng/L 254 ng/L (0-15) H* 07/17/23 22:58 Troponin T Baseline 123 ng/L (0-15) H* 07/02/23 11:20 Troponin T 120 Minute 250.9 ng/L (0-15) H 07/17/23 14:00 Delta Troponin T 12.9 ABS# (0-10) H* 07/17/23 14:00 Troponin T Hi Sens 6Hr 263.2 ng/L (0-15) H 07/17/23 17:58 Troponin T Hi Sens 6Hr Delta 25.2 ng/L (0-12) H* 07/17/23 17:58 C-Reactive Protein 24.1 mg/L (0.0-4.9) H 07/14/23 03:29 NT-Pro-B Natriuret Pep [id number] pg/mL (0-125) H 07/14/23 03:29 Total Protein 5.7 g/dL (6.6-8.7) L 07/21/23 04:58 Albumin 3.8 g/dL (3.5-5.2) 07/21/23 04:58 Globulin 1.9 g/dL (1.3-4.6) 07/21/23 04:58 Procalcitonin 0.65 ng/mL (0-0.5) H 07/14/23 03:29 TSH 42.32 uIU/mL (0.27-4.20) H 07/10/23 04:58 Free T4 0.41 ng/dL (0.82-1.77) L 07/06/23 03:46 Free T3 1.3 PG/ML (2.0-4.4) L 07/06/23 03:46 Urine Color Yellow (Yellow) 07/02/23 04:19 Urine Appearance Clear (CLEAR) 07/02/23 04:19 Urine pH 5 (5-7) 07/02/23 04:19 Ur Specific [place] 1.015 (1.005-1.030) 07/02/23 04:19 Urine Protein 1+ (Negative) H 07/02/23 04:19 Urine Glucose (UA) Norm (Normal) 07/02/23 04:19 Urine Ketones Negative (Negative) 07/02/23 04:19 Urine Blood Neg (Negative) 07/02/23 04:19 Urine Nitrate Negative (Negative) 07/02/23 04:19 Urine Bilirubin Neg (Negative) 07/02/23 04:19 Urine Urobilinogen Neg mg/dL (Negative) 07/02/23 04:19 Ur Leukocyte Esterase Negative (Negative) 07/02/23 04:19 Urine RBC 0-4 /hpf (0-2) H 07/02/23 04:19 Urine WBC None /hpf (0-5) 07/02/23 04:19 Ur Squamous Epith Cells None /hpf (0-5) 07/02/23 04:19 Amorphous Sediment Not Reportable 07/02/23 04:19 Urine Bacteria Trace /hpf (NONE) 07/02/23 04:19 Urine Mucus 1+ /hpf 07/02/23 04:19 Fld Crystal Laterality Cancelled 07/16/23 11:42 Fluid Total Protein 2.7 g/dL 07/16/23 11:42 Pleural Color Red (Pale Yellow) H 07/16/23 11:42 Pleural Appearance Cloudy (CLEAR) 07/16/23 11:42 Pleural pH 8.00 (6.5-7.5) H 07/16/23 11:42 Pleural WBC 430.000 /uL (0-1000) 07/16/23 11:42 Pleural RBC 15.000 10^3/uL 07/16/23 11:42 Pleural Mononuc # Auto Cancelled 07/16/23 11:42 Pleural Other Cells Not Reportable 07/16/23 11:42 Pleural Polynuclear % 7 % 07/16/23 11:42 Pleural Polynuclear # Cancelled 07/16/23 11:42 Pleural Mononuclear % 93 % 07/16/23 11:42 Pleural Other Cells Rt Cancelled 07/16/23 11:42 Pleural Other Cells Lt Cancelled 07/16/23 11:42 Pleural Albumin 2.1 g/dL 07/16/23 11:42 Pleural LDH 90 U/L 07/16/23 11:42 Pleural Glucose 274.0 mg/dL 07/16/23 11:42 Pleural Amylase 6.0 U/L 07/16/23 11:42 Pleural Triglycerides 16 mg/dL 07/16/23 11:42 Nasal Influ A H1 2008 PCR Not detected (NOT DETECT) 07/02/23 12:25 Vancomycin Trough 29.1 ug/mL (10-15) H* 07/10/23 07:02 Adenovirus (PCR) Not detected (NOT DETECT) 07/02/23 12:25 C. pneumoniae DNA (PCR) Not detected (NOT DETECT) 07/02/23 12:25 Coronavirus 229E (PCR) Not detected (NOT DETECT) 07/02/23 12:25 Hep Bs Antigen Non-reactive (Nonreactive) 07/09/23 13:50 Hep Bs Antibody < 3.5 (11.5-1000) L 07/09/23 13:50 Hep B Core Total Ab Non-reactive (Nonreactive) 07/09/23 13:50 Human Metapneumovir PCR Not detected (NOT DETECT) 07/02/23 12:25 Influenza A (H1) PCR Not detected (NOT DETECT) 07/02/23 12:25 Influenza A (H3) PCR Not detected (NOT DETECT) 07/02/23 12:25 Influenza Type A (PCR) Not detected (NOT DETECT) 07/02/23 12:25 Influenza Type B (PCR) Not detected (NOT DETECT) 07/02/23 12:25 M. pneumoniae (PCR) Not detected (NOT DETECT) 07/02/23 12:25 Parainfluenza 1 (PCR) Not detected (NOT DETECT) 07/02/23 12:25 Parainfluenza 2 (PCR) Not detected (NOT DETECT) 07/02/23 12:25 Parainfluenza 3 (PCR) Not detected (NOT DETECT) 07/02/23 12:25 Parainfluenza 4 (PCR) Not detected (NOT DETECT) 07/02/23 12:25 RSV Type A (PCR) Not detected (NOT DETECT) 07/02/23 12:25 RSV Type B (PCR) Not detected (NOT DETECT) 07/02/23 12:25 Entero/Rhino (PCR) Not detected (NOT DETECT) 07/02/23 12:25 SARS-CoV-2 (PCR) Not detected (NOT DETECT) 07/02/23 12:25 Path Cons w/Slide Yes 07/16/23 11:42 Pathology Message Cancelled 07/16/23 11:42 Vitals Last Vital Signs Temp 98.1 F 07/21/23 14:58 Pulse 105 H 07/21/23 14:58 Resp 16 07/21/23 14:58 BP 177/99 07/21/23 14:58 Pulse Ox 97 07/21/23 12:00 O2 Del Method Room Air 07/21/23 12:00 O2 Flow Rate 1 07/18/23 19:47 FiO2 24 07/21/23 04:58 Discharge Plan Discharge Patient Disposition: Home Health Service Condition: Stable Prescriptions: New clopidogrel 75 mg Tablet 75 mg PO DAILY Qty: 30 0RF metoprolol tartrate 25 mg Tablet 50 mg PO BID@0900,2100 Qty: 60 0RF Continued garlic 1,000 mg capsule 1,000 mg PO BEDTIME mirtazapine [Remeron] 15 mg tablet 15 mg PO DAILY Qty: 30 0RF (DME) [place] to the right See Rx Instructions .Route .MEDSUPPLY Qty: 1 0RF Rx Instructions: As directed (DME) [place] to Right Lower Extremity See Rx Instructions .Route .MEDSUPPLY Qty: 1 0RF Rx Instructions: As directed [employer] Novolin R Regular U100 Insulin 100 unit/mL Solution See Rx Instructions .ROUTE .COMPLEX Rx Instructions: sliding scale three times a day as needed nitroglycerin [Nitrostat] 0.4 mg Tablet, Sublingual 0.4 mg SUBLINGUAL Q5M PRN (Reason: Chest Pain) Rx Instructions: do not exceed 3 doses per episode hawthorn tejada 500 mg Capsule 500 mg PO BID Levemir FlexPen 100 unit/mL (3 mL) insulin pen 36 unit SUBCUT QAM thyroid (pork) [[place] Thyroid] 60 mg tablet 60 mg PO QAM magnesium oxide 400 mg magnesium Capsule 400 mg PO QPM resveratrol 100 mg Capsule 100 mg PO BID [place] Drops See Rx Instructions .ROUTE .COMPLEX Rx Instructions: one dropperful twice a day aspirin 81 mg tablet,delayed release (DR/EC) 81 mg PO BEDTIME Vitamin B Complex Liquid See Rx Instructions .ROUTE .COMPLEX Rx Instructions: one dropperful once a day tramadol 50 mg tablet 50 mg PO BEDTIME (DME) FreeStyle Marcial 2 Sensor Kit MISCELLANEOUS (DME) FreeStyle Marcial 2 [place] Misc MISCELLANEOUS Discontinued furosemide 40 mg tablet 40 mg PO QAM Hold Instructions: Resume on 10/21/21. Discharge Orders: Discharge Order (Routine); Ordered 07/21/23 Ordered By: Leeroy Dye Other Ambulatory Orders: DME: Oxygen (Order) Location: None Selected Ordered By: Marianne Ward Referrals: [facility] [Other] - 07/18/23 2:00 pm (Your chair time should be 2:50 on MWF on the 1st day of dialysis you will need to arive by 2:00 p.m. so that you can complete the intake paperwork. ) [facility] ([facility]) [Outside] Beatriz Brady PA [Primary Care Provider] - 08/06/23 3:00 pm Discharge Diet: Diabetic Discharge Activity: As per PT/OT instructions Patient Instructions: Dialysis Diet (DC), Hemodialysis (DC), CHF Stoplight, Opioid Safety Discharge Attestations Time Spent in Discharge Care*: less than 30 min Status at Discharge: Cognitive status at discharge: cognitively intact , Behavioral status at discharge: cooperative , Quality Metrics Clinical Quality Measures [ No reported AMI, CVA or VTE this stay] Coding Level of Care Code Acute Code for Chg Fwd Diagnoses Acute kidney injury superimposed on CKD N17.9; N18.9
--- NOTE | 2023-07-21 16:05 | PC.OT ---
OT tx attempted earlier today and pt in dialysis and plans for discharge home later today.
[2023-07-21 16:08] LABS: Glucose Point of Care 129 mg/dL (70-110)
== END 2023-07-21 18:12 | disposition home health service (06) | DRG 673 ==
LOC: ER 22:00 → ICU 07-02 03:13 → MEDSURG 07-03 21:07 → CSU 07-04 15:50 → ICU 07-05 06:43 → CSU 07-08 02:24 → ICU 07-08 13:32 → MEDSURG 07-19 17:18
PROVIDERS: Family Medicine; Hospitalist; Internal Medicine; Surgery; Admitting Provider Internal Medicine; Emergency Provider Emergency Medicine; PCP Physician Assistant; Visit Provider Internal Medicine
PROC: 0W9930Z Drainage of Right Pleural Cavity with Drainage Device, Percutaneous Approach (ICD-10-PCS; principal; 2023-07-10 09:30)
DX: N17.9 Acute kidney failure, unspecified (principal); I21.A1 Myocardial infarction type 2; J95.811 Postprocedural pneumothorax; I50.23 Acute on chronic systolic (congestive) heart failure; J96.02 Acute respiratory failure with hypercapnia; J96.01 Acute respiratory failure with hypoxia; J69.0 Pneumonitis due to inhalation of food and vomit; I13.2 Hypertensive heart and chronic kidney disease with heart failure and with stage 5 chronic kidney disease, or end stage renal disease; J98.11 Atelectasis; L97.921 Non-pressure chronic ulcer of unspecified part of left lower leg limited to breakdown of skin; E46 Unspecified protein-calorie malnutrition; G93.40 Encephalopathy, unspecified; I47.10 Supraventricular tachycardia, unspecified; I48.92 Unspecified atrial flutter; E87.3 Alkalosis; E87.1 Hypo-osmolality and hyponatremia; E87.5 Hyperkalemia; N18.6 End stage renal disease; E11.22 Type 2 diabetes mellitus with diabetic chronic kidney disease; E11.649 Type 2 diabetes mellitus with hypoglycemia without coma; E11.51 Type 2 diabetes mellitus with diabetic peripheral angiopathy without gangrene; E11.40 Type 2 diabetes mellitus with diabetic neuropathy, unspecified; I25.5 Ischemic cardiomyopathy; I25.10 Atherosclerotic heart disease of native coronary artery without angina pectoris; I48.91 Unspecified atrial fibrillation; R22.31 Localized swelling, mass and lump, right upper limb; K59.00 Constipation, unspecified; D63.1 Anemia in chronic kidney disease; E03.9 Hypothyroidism, unspecified; E11.622 Type 2 diabetes mellitus with other skin ulcer; T87.81 Dehiscence of amputation stump; I95.2 Hypotension due to drugs; T46.2X5A Adverse effect of other antidysrhythmic drugs, initial encounter; N18.30 Chronic kidney disease, stage 3 unspecified; Z99.2 Dependence on renal dialysis; Y83.8 Other surgical procedures as the cause of abnormal reaction of the patient, or of later complication, without mention of misadventure at the time of the procedure; Z11.52 Encounter for screening for COVID-19; Z68.28 Body mass index [BMI] 28.0-28.9, adult; Z79.82 Long term (current) use of aspirin; Z79.4 Long term (current) use of insulin; Z95.5 Presence of coronary angioplasty implant and graft; Z89.411 Acquired absence of right great toe; Z89.421 Acquired absence of other right toe(s)
CPT/HCPCS: 32555; 36415; 36416; 36573; 36592; 36600; 51702; 71045; 71250; 71260; 74230; 76000; 76882; 77001; 80048; 80051; 80053; 80069; 80076; 80202; 80503; 81001; 82042; 82150; 82330; 82550; 82803; 82805; 82945; 82962; 83605; 83615; 83735; 83880; 83986; 84100; 84145; 84157; 84439; 84443; 84478; 84481; 84484; 85025; 85610; 85730; 86140; 86705; 86706; 87015; 87040; 87070; 87075; 87102; 87116; 87205; 87206; 87340; 87486; 87581; 87633; 87801; 89050; 90935; 92523; 92526; 92610; 92611; 93005; 93308; 93970; 93971; 94660; 94762; 96361; 96365; 96372; 96375; 96376; 97110; 97116; 97162; 97166; 97530; 97535; 99213; 99291; C1751; J0153; J0282; J0612; J0696; J1100; J1610; J1644; J1650; J1720; J1815; J1940; J2270; J2405; J2704; J3010; J3370; J3480; J3490; J7050; J7060; P9046; P9047; Q3014; Q4081; Q9967

== ENCOUNTER 2023-08-05 16:03 | Emergency (ER) | payer MEDICARE, SELFPAY ==
[2023-08-05] VITALS (21 sets, daily range): BP systolic 66–131; BP diastolic 35–67; PULSE 57–82; RESP 3–27; TEMP 34.8; O2SAT 88–97
--- NOTE | 2023-08-05 16:10 | ECG_ITS ---
[facility] Test Date: 2023-08-05 Pat Name: Usman Alvarez Department: Room: Gender: Male Supervisor Laboratory: : [id number] Requested By: Peter Mott Order Number: [id number] Diandra MD: Lito Louis M.D. 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 [email or web address] [id number] f
--- NOTE | 2023-08-05 16:11 | XRR_ITS ---
PROCEDURE INFORMATION: Exam: XR Chest Exam date and time: 08/05/2023 4:18 PM Age: 73 years old Clinical indication: Condition or disease; Lung condition and disease; Respiratory failure; Status not specified; Additional info: Resp failure, intubation, cpr TECHNIQUE: Imaging protocol: Radiologic exam of the chest. Views: 1 view. COMPARISON: CR XR chest 1V portable [id number] 07/17/2023 12:52 PM FINDINGS: Tubes, catheters and devices: Unchanged dialysis catheter. Lungs: Diffuse bilateral infiltrates are seen, worse on the right. Pleural spaces: Unremarkable. No pleural effusion. No pneumothorax. Heart/Mediastinum: Unremarkable. No cardiomegaly. Bones/joints: Unremarkable. XR/XR chest 1V portable [id number] IMPRESSION: Diffuse bilateral infiltrates are seen, worse on the right.
[2023-08-05 16:14] LABS: Arterial Blood Gas Hematocrit 38.1 % (42-52); Base Excess ABG -4.1 mmol/L (-2.0-2.0); Blood Gas Allen Test Pos; Blood Gas Sample Type Arterial; Carboxyhemoglobin 1.7 %THgb (0.4-20.1); HCO3 ABG 27.9 mmol/L (22-26); HGB O2 Sat 93.5 % (95-100); Ionized Calcium Level - ABG 1.2 mmol/L (1.1-1.4); Methemoglobin 0.6 % (0.4-1.5); Oxygen Saturation ABG 95.7; PO2 ABG 78.8 mmHg (80.0-100.0); Potassium Level - ABG 5.1 mmol/L (3.5-5.0); Total Hemoglobin 12.4 g/dL (14-18)
[2023-08-05 16:15] LABS: ABG PCO2 93.6 mmHg (35-45); ABG PH Result 7.08 (7.35-7.45); Alveolar-Arterial Oxygen Gradi 69.4 mmHg (5-10); Blood Gas Operator Identificat MONRO; Blood Gas Sample Site Radial, left; Blood Gas Tidal Volume 0.45; Oxygen Device VENT; PO2 FiO2 Ratio Arterial Blood 0
--- NOTE | 2023-08-05 16:21 | W.ED.CPR ---
HPI - CPR General: Chief Complaint: Cardiac Arrest/CPR Stated Complaint: POST CODE Time Seen by Provider: 08/05/23 16:11 History of Present Illness: 73-year-old male presents to the emergency department as a return of spontaneous circulation after what EMS believes to be a respiratory arrest. He was last seen at his baseline last night at around 7:30 PM this morning he was sleeping and excessively long. His got worried on him this afternoon and called EMS. When EMS arrived he had agonal respirations and was bradycardic in the 30s. They attempted to get an IV for about 10 minutes and during this time he lost pulses and they initiated CPR. Patient was reported to be in PEA arrest initially. An IO was started and the patient was given 2 doses of epinephrine per ACLS protocol. 7.5 ET tube was used to intubate the patient. The patient was noted to have an end-tidal CO2 reading in the 90s. Patient ultimately developed an episode of V. tach and was shocked with 200 J. He had return of spontaneous circulation on pulse check after a cycle of CPR that was administered following the defibrillation. He has maintained a pulse ever since then. He is GCS 3 T on arrival to the emergency department. However within 15 minutes of his evaluation, he is flexing his arms and starting to move his lips. EMS reports that his initial blood sugar was 112. They report according to the that his last dialysis was on Friday. They also noted that he was recently hospitalized. told EMS that he is a full code at this time. EMS reports the patient's end-tidal CO2 started to improve and got down into the 60s during transport with ventilation through the ET tube. Patient D/c'd from hospital 07/21/23 with this discharge summary that was reviewed: Mr. 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 Baird for fever, chills, rigors noted in clinic and was admitted on 07/01/2023 for hyperkalemia (K+ of 6.7), SALLY on CKDIII. BCx were drawn and Nephrology was consulted. On admission, 07/02, he went into acute hypoxic, hypercapneic respiratory failure requiring BiPAP, due to Pulmonary Edema caused by Acute onset HFrEF. A TTE was done that showed an EF of 45-50% w/ hypokinesis of the mid-anterior and anteroseptal wall segments. He went into Afib w/ RVR on 07/04/2023 and was diuresed on the floor. He went into Acute hypercapneic resp. failure on 07/08 due to increasing vol overload in the setting of worsening renal fxn. He was transferred to the ICU again and placed on BiPAP. A. perm cath was plced on 07/10/2023 and it was complicated by a R. sided Pneumothorax requiring chest tube placement that was d/c'ed on 07/13. He initiated HD on 07/10. An overnight study to qualify him for BiPAP was attempted, and per case mgmt, he qualified by ABG, but his desaturations were monitored for only 3 minutes instead of 5 minutes. Cardiology on-call, Dr. Louis, was consulted regarding his elevated troponin on 07/17/2023, concern for NSTEMI type I versus NSTEMI type II that he had during the early part of his hospitalization, as well as the 's reticence about Eliquis. Per Dr. Louis, ok to d/c the heparin drip. Patient would benefit from a stress test in the future; however,t he patient and did not want invasive or interventional procedures at this point. They just wanted medical management for the patient; however, the patient would consider further cardiac workup if he started having chest pain. Regarding the Eliquis, ok to add Plavix to the patient's medication regimen, so it was started. Patient had overnight pulse oximetry which showed that he qualified for O2 at night. Patient does not qualify for BiPAP or CPAP. He may benefit from a sleep study after recovery from hospitalization as an outpatient Review of Systems General: Reports: ROS unobtainable due to endotracheal tube, ROS unobtainable due to medical condition and ROS unobtainable due to mental status [facility] ED PFSH: Medical History ESRD on hemodialysis Leg wound, left Protein calorie malnutrition Aspiration pneumonitis Aspiration into airway Atrial fibrillation with RVR Hypothyroidism Fluid overload Pulmonary edema Systolic CHF, acute Acute kidney injury Dehiscence of wound Acute kidney injury superimposed on CKD Contrast-induced nephropathy Pulmonary infiltrate present on computed tomography Non-pressure chronic ulcer of other part of right foot with necrosis of bone Atelectasis, left Elevated hemidiaphragm Atrial flutter History of amputation of toe Diabetes mellitus with chronic kidney disease Hyperlipidemia Diabetic peripheral neuropathy associated with type 2 diabetes mellitus Peripheral arterial disease SVT (supraventricular tachycardia) Gangrenous toe CKD (chronic kidney disease) Systolic heart failure Pleural effusion, left Non-healing ulcer Ischemic cardiomyopathy Diabetic ulcer of right foot Atherosclerosis of coronary artery Kidney stone Amputation toe Diabetes mellitus with peripheral vascular disease Diabetic neuropathy HTN (hypertension) Diabetes Surgical History S/P transmetatarsal amputation of foot Status post amputation of toe of right foot H/O chest tube placement S/P cholecystectomy S/P tonsillectomy S/P cataract extraction Family History Father Cancer LUNG Mother CAD (coronary artery disease) Diabetes CHF (congestive heart failure) Myocardial infarction Social History Smoking and tobacco/nicotine status: never used tobacco/nicotine Alcohol intake: never Substance/Drug Use: never Household members: spouse Marital status: Current occupational status: retired Physical Exam Narrative: EXAM NARRATIVE: This is an ill appearing deconditioned elderly male who is intubated. GCS 3 T on arrival. Pupils are pinpoint bilaterally. EMS reports use of Narcan did not change this. The patient is being mechanically ventilated. He has bilateral breath sounds present. There are rales bilaterally. There is a mobile rib in the right lower chest margin. No crepitus. There is blood in the circumoral region that EMS reports occurred after initiation of CPR. There are multiple bruises in different stages of healing across the abdomen. It looks as if he was probably getting Lovenox injections. There is a dialysis port in the right chest. The abdomen is soft with the exception of area of small hematoma near what I believed to be Lovenox injections. Patient's bilateral lower extremities are wrapped as if by a cnc specialist. He is missing the toes of his right foot. He has just finished 1 L of IV fluid through a left tibial IO that was initiated by EMS. By the end of my examination, the patient's GCS had improved slightly. He was starting to flex his arms and move his lips. His eyes never opened and he was not making purposeful movements. Update After approximately 1500 cc of IV fluid, norepinephrine was initiated. It is running at 10 mcg/min. Patient's blood pressure has improved to 122/84. Patient is making some nonpurposeful movements. His pupils are still pinpoint. We used Versed 2 mg for some mild sedation while we were working him up and getting his blood pressure up. We will now initiate propofol. Repeat blood gas shows that we are improving his pCO2 and pH by titrating the tidal volume and respiratory rate. We will continue to follow this. Patient's white blood cell count, AST, ALT, lactic acid, mildly elevated potassium, bicarb 33, BUN 41. Creatinine 3.7. This does not appear to be an infectious etiology. I have not initiated blood cultures or antibiotics. The pulmonary edema is likely a combination of both simple fluid as well as posttraumatic fluid and may even be some pulmonary hemorrhage given that he had blood come from his airway during CPR per EMS. I spoke with the hospitalist here to admit to ICU for further care. After speaking with dye house vat worker, there are no beds available in the ICU. Patient will have to be transferred. Neither [facility] nor [facility] have ICU beds. Outcome Analyst is going to look at other hospitals in the region. Const: COMMON NORMALS: well nourished HENMT: COMMON NORMALS: normocephalic, atraumatic and external ears normal HEAD & SCALP: normocephalic and atraumatic EXTERNAL EAR: Yes external ears normal MOUTH: no muffled voice Eye: COMMON NORMALS: no scleral icterus Neck/C-Spine: GENERAL: Yes normal visual inspection and Yes trachea midline Cardio: COMMON NORMALS: regular rate and regular rhythm RATE: regular rate RHYTHM: regular rhythm Course Vital Signs: Vital signs: Vital Signs Pulse Rate 78 08/05/23 19:12 Respiratory Rate 22 H 08/05/23 19:12 Blood Pressure 131/66 08/05/23 19:12 Pulse Oximetry 93 08/05/23 19:12 Oxygen Delivery Me thod Mechanical Ventil ation 08/05/23 16:06 Fraction of Inspir ed Oxygen 100 08/05/23 17:42 MDM - Cardiac Arrest/CPR Medical Decision Making 73-year-old male presents with what appears to be a hypercapnic respiratory failure followed by a PEA arrest and ultimately resulted in V. tach which was defibrillated. He now has return of spontaneous circulation. However, I cannot feel his radial pulses. He just finished 1 L of IV fluids from EMS via left tibial IO. He will get a second liter of IV fluids here in the emergency department. If his blood pressure does not improve, we will have to initiate vasopressors. His pupils are pinpoint and nonreactive. He has not responding to visual threat. He is making a few nonpurposeful flexing movements of his arms and I visualize some movement of his lips. I am told that he is a full code by EMS. He had a total of 16 to 18 minutes of CPR. An ABG was performed shortly after arrival showing a pH of 7.08 with a pCO2 of 93.6 and a pO2 of 78.8 on 100% FiO2. I increased his respiratory rate as well as his tidal volume to help improve what appears to be an acute on chronic respiratory acidosis. Chest x-ray 1 view was obtained; there is pulmonary edema right apparently greater than left. Central venous catheter visible projecting over the right chest. Fluid visible in the fissure. Probable small to moderate right-sided pleural effusion. No large pneumothorax. What appears to be a loop recorder projecting over the heart. RT advance the ET tube 2 cm to 25. Given the pulmonary edema present and the fact that the patient has known renal failure, I have asked the nurse to initiate norepinephrine drip for hypotension. As soon as she starts norepinephrine drip and achieve normotension, we can hold further IV fluids for the time being. Update [address] Garza at [facility] in [facility]. He is excepted to the ICU there. He has asked me to do a CT scan of the head, chest, abdomen pelvis. He is also requested blood cultures and an empiric dose of vancomycin and Zosyn. Patient is allergic to penicillins, I will replace this with cefepime. He would have like to have done a CT angiogram but the patient's kidney function is abnormal and according to the notes they are hoping that this dysfunction is transient. Pulmonary embolism is possible but is not high on my differential diagnosis. I think this was a hypercapnic respiratory failure. I discussed with the family. They do not want to use IV contrast at this time. It would be reasonable to use it if the patient could have dialysis shortly after administration of the contrast. We will transport by helicopter. Pt/daughter informed of diagnosis, plans, and are in agreement. He is full code at this time. I was able to STOP NE gtt as patient became hypertensive--he opened his eyes. He wouldn't make eye contact but was opening eyes and fluttering his lids. UPDATE 1534 staff respiratory therapist gave report and activated [facility], helicopter is going to be here in 12 min. I asked them to at least do CT head w/o. They cannot upload any images to [facility]--therefore, I think it is acceptable to delay the chest/abd/pelv w/o until he arrives there. I have asked collect on delivery clerk to notify them of this change. I have also added a small dose calcium gluconate and bicarb to stabilize myocardium (hyperK) for transport. Lab Data 08/05/23 16:18 08/05/23 16:18 Radiology Impressions Chest X-Ray 08/05/23 16:11 IMPRESSION: Diffuse bilateral infiltrates are seen, worse on the right. Laboratory Results WBC 15.94 10^3/uL (3.29-11.43) H 08/05/23 16:18 RBC 4.34 10^6/uL (3.85-5.65) 08/05/23 16:18 Hgb 12.30 g/dL (11.27-16.99) 08/05/23 16:18 Hct 46.4 % (37-53) 08/05/23 16:18 MCV 106.9 fl (82-101) H 08/05/23 16:18 MCH 28.3 pg (27-33) 08/05/23 16:18 MCHC 26.5 g/dL (30-55) L 08/05/23 16:18 RDW 18.9 % (12.1-15.1) H 08/05/23 16:18 Plt Count 136 10^3/cmm (157-399) L 08/05/23 16:18 MPV 10.1 fL (7.4-10.4) 08/05/23 16:18 Neut % (Auto) 71.0 % 08/05/23 16:18 Lymph % (Auto) 19.5 % 08/05/23 16:18 Dane % (Auto) 4.6 % 08/05/23 16:18 Eos % (Auto) 0.2 % 08/05/23 16:18 Baso % (Auto) 0.4 % 08/05/23 16:18 Neut # (Auto) 11.30 10^3/uL (1.8-7.7) H 08/05/23 16:18 Lymph # (Auto) 3.1 10^3/uL (0.8-4.8) 08/05/23 16:18 Dane # (Auto) 0.7 10^3/uL (0.2-0.9) 08/05/23 16:18 Eos # (Auto) 0.0 10^3/uL (0.0-0.8) 08/05/23 16:18 Baso # (Auto) 0.1 10^3/uL (0.0-0.1) 08/05/23 16:18 Nucleated RBC % (auto) 0 % 08/05/23 16:18 Nucleated RBCs # 0.0 /100WBC 08/05/23 16:18 PT 17.10 SECONDS (12.1-14.9) H 08/05/23 16:18 INR 1.35 (0.8-1.2) H 08/05/23 16:18 APTT 44.3 SECONDS (23.9-36.7) H 08/05/23 16:18 Specimen Type Arterial 08/05/23 17:15 Sample Site Radial, left 08/05/23 17:15 ABG pH 7.16 (7.35-7.45) L* 08/05/23 17:15 ABG pCO2 75.9 mmHg (35-45) H* 08/05/23 17:15 ABG pO2 53.0 mmHg (80.0-100.0) L 08/05/23 17:15 ABG PO2/FiO2 Ratio 0 08/05/23 17:15 ABG HCO3 27.0 mmol/L (22-26) H 08/05/23 17:15 ABG O2 Saturation 95.7 08/05/23 16:02 ABG Base Excess -3.2 mmol/L (-2.0-2.0) L 08/05/23 17:15 Peter Test Pos 08/05/23 17:15 A-a O2 Gradient 69.4 mmHg (5-10) H 08/05/23 16:02 Hematocrit 37.0 % (42-52) L 08/05/23 17:15 Hgb O2 Saturation 93.5 % (95-100) L 08/05/23 16:02 Carboxyhemoglobin 1.7 %THgb (0.4-20.1) 08/05/23 16:02 Methemoglobin 0.6 % (0.4-1.5) 08/05/23 16:02 Total Hemoglobin 12.4 g/dL (14-18) L 08/05/23 16:02 Sodium 141.0 mmol/L (131-143) 08/05/23 16:02 Potassium 5.1 mmol/L (3.5-5.0) H 08/05/23 16:02 Glucose 66.0 mg/dL (70-115) L 08/05/23 16:02 Ionized Calcium 1.2 mmol/L (1.1-1.4) 08/05/23 16:02 O2 Delivery Device Vent 08/05/23 17:15 FiO2 100.0 % 08/05/23 17:15 Tidal Volume 0.50 08/05/23 17:15 PEEP 8.0 cmH20 08/05/23 17:15 Chief Radiation Therapist ID [place] 08/05/23 17:15 Sodium 144 mmol/L (136-145) 08/05/23 16:18 Potassium 5.2 mmol/L (3.5-5.1) H 08/05/23 16:18 Chloride 101 mmol/L (98-107) 08/05/23 16:18 Carbon Dioxide 33 mmol/L (22-29) H 08/05/23 16:18 Anion Gap 15.2 (5-19) 08/05/23 16:18 BUN 41 mg/dL (8-23) H 08/05/23 16:18 Creatinine 3.7 mg/dL (0.7-1.2) H 08/05/23 16:18 GFR Calculation Not Reportable 08/05/23 16:18 Glucose 66 mg/dL (65-115) 08/05/23 16:18 Calculated Osmolality 306 mOsm/kg (285-295) H 08/05/23 16:18 Lactic Acid 4.2 mmol/L (0.5-2.2) H* 08/05/23 16:18 Calcium 8.4 mg/dL (8.5-10.5) L 08/05/23 16:18 Magnesium 2.7 mg/dL (1.7-2.3) H 08/05/23 16:18 Total Bilirubin 0.4 mg/dL (0.15-1.2) 08/05/23 16:18 AST 141 U/L (0-40) H 08/05/23 16:18 ALT 91 U/L (0-41) H 08/05/23 16:18 Alkaline Phosphatase 108 U/L (40-130) 08/05/23 16:18 Total Protein 5.9 g/dL (6.6-8.7) L 08/05/23 16:18 Albumin 4.0 g/dL (3.5-5.2) 08/05/23 16:18 Globulin 1.9 g/dL (1.3-4.6) 08/05/23 16:18 Urine Color [place] (Yellow) A 08/05/23 17:30 Urine Appearance Hazy (CLEAR) A 08/05/23 17:30 Urine pH 5 (5-7) 08/05/23 17:30 Ur Specific [place] 1.030 (1.005-1.030) 08/05/23 17:30 Urine Protein 3+ (Negative) H 08/05/23 17:30 Urine Glucose (UA) Norm (Normal) 08/05/23 17:30 Urine Ketones Negative (Negative) 08/05/23 17:30 Urine Blood 2+ (Negative) H 08/05/23 17:30 Urine Nitrate Negative (Negative) 08/05/23 17:30 Urine Bilirubin 1+ (Negative) H 08/05/23 17:30 Urine Urobilinogen 1 mg/dL (Negative) H 08/05/23 17:30 Ur Leukocyte Esterase Negative (Negative) 08/05/23 17:30 Urine RBC 0-4 /hpf (0-2) H 08/05/23 17:30 Urine WBC 0-4 /hpf (0-5) H 08/05/23 17:30 Ur Squamous Epith Cells 5-10 /hpf (0-5) H 08/05/23 17:30 Ur Transition Epith Cell 0-4 /hpf 08/05/23 17:30 Amorphous Sediment 1+ /hpf 08/05/23 17:30 Urine Bacteria Trace /hpf (NONE) 08/05/23 17:30 Hyaline Casts 5-10 /lpf H 08/05/23 17:30 Urine Mucus Trace /hpf 08/05/23 17:30 SARS-CoV-2 Ag (Rapid) negative (Negative) 08/05/23 18:25 XR interpretation done by ED provider, pending radiology final review ED provider radiology interpretation(s): CXR 1 view--b/l infiltrates R>L, looks more like edema EKG Data EKG 1: Interpretation: Sinus rhythm, rate 77, QRS 101, right bundle branch block, T wave inversions lead III and V3. Some nonspecific T wave flattening laterally. No concerning ST segment elevations. Critical Care Time Critical Care Time: Critical Care Time: Yes Total Critical Care Time: 120 Attestation: See MDM text. Discharge Plan Discharge Patient Disposition: Xfer Short-Term Hosp Clinical Impression: Respiratory failure with hypoxia and hypercapnia, Signs of return of spontaneous circulation, Acidosis, lactic, Transaminitis, Pulmonary edema, Cardiopulmonary arrest with successful resuscitation Condition: Stable Referrals: Evelin Jenkins DO [Primary Care Provider] - Coding Level of Care Code ED [employer] for Abdirizak Zhou
[2023-08-05] MEDS: sodium chloride 0.9% 1,000 ML 999 ML IV (16:29)
[2023-08-05] MEDS: norepinephrine 4 MG/250 ML BAG 37.5 MG IV (16:45)
--- NOTE | 2023-08-05 16:45 | PC.NURSE ---
Levophed was started at 10mcg/min per VORB from Dr. Gunn.
[2023-08-05] MEDS: midazolam 1 mg/mL INJ 2 mL 2 MG IVP (16:47)
[2023-08-05 16:55] LABS: Basophils # 0.1 10^3/uL (0.0-0.1); Basophils % 0.4 %; Eosinophils % 0.2 %; Hematocrit 46.4 % (37-53); Lymphocytes # 3.1 10^3/uL (0.8-4.8); Lymphocytes % 19.5 %; Mean Corpuscular HGB Conc 26.5 g/dL (30-55); Mean Corpuscular Hemoglobin 28.3 pg (27-33); Mean Corpuscular Volume 106.9 fl (82-101); Mean Platelet Volume 10.1 fL (7.4-10.4); Monocytes # 0.7 10^3/uL (0.2-0.9); Monocytes % 4.6 %; Nucleated Red Blood Cells % 0 %; Platelet Count 136 10^3/cmm (157-399); Red Blood Count 4.34 10^6/uL (3.85-5.65); Red Cell Distribution Width 18.9 % (12.1-15.1); White Blood Count 15.94 10^3/uL (3.29-11.43)
[2023-08-05 17:17] LABS: INR 1.35 (0.8-1.2)
[2023-08-05 17:18] LABS: Partial Thromboplastin Time 44.3 SECONDS (23.9-36.7)
[2023-08-05 17:24] LABS: Alanine Aminotransferase 91 U/L (0-41); Alkaline Phosphatase 108 U/L (40-130); Anion Gap 15.2 (5-19); Aspartate Amino Transferase 141 U/L (0-40); Blood Urea Nitrogen 41 mg/dL (8-23); Calcium 8.4 mg/dL (8.5-10.5); Carbon Dioxide 33 mmol/L (22-29); Chloride 101 mmol/L (98-107); Globulin 1.9 g/dL (1.3-4.6); Glucose 66 mg/dL (65-115); Magnesium 2.7 mg/dL (1.7-2.3); Osmolality Calculated 306 mOsm/kg (285-295); Potassium 5.2 mmol/L (3.5-5.1); Sodium 144 mmol/L (136-145); Total Bilirubin 0.4 mg/dL (0.15-1.2); Total Protein 5.9 g/dL (6.6-8.7)
[2023-08-05 17:26] LABS: Lactic Sepsis W/Reflex 4.2 mmol/L (0.5-2.2)
[2023-08-05 17:30] LABS: Base Excess ABG -3.2 mmol/L (-2.0-2.0); Blood Gas Allen Test Pos; Blood Gas Operator Identificat WALCI; Blood Gas Sample Site Radial, left; Blood Gas Sample Type Arterial; Oxygen Device VENT; PO2 FiO2 Ratio Arterial Blood 0
--- NOTE | 2023-08-05 17:30 | PC.NURSE ---
pt arrives via EMS and is intubated. pts told EMS that pt had been sleeping all day and upon EMS arrival pt was agonal breathing and had no pulse. EMS began CPR and achieved ROSC at 1519. pt does dialysis and last time he went was 08/03/2023. pts last well known was yesterday evening.
[2023-08-05 17:31] LABS: ABG PCO2 75.9 mmHg (35-45); ABG PH Result 7.16 (7.35-7.45)
[2023-08-05 17:45] LABS: Glucose Urine UA Norm (Normal); Ketones Urine Negative (Negative); Protein Urine 3+ (Negative); Urine Appearance Hazy (CLEAR); Urine Color Orange (Yellow); pH Urine 5 (5-7)
[2023-08-05 17:46] LABS: Add Urine Microscopic? YES; Bilirubin Urine 1+ (Negative); Blood Urine 2+ (Negative); Leukocyte Esterase Urine Negative (Negative); Nitrate Urine Negative (Negative); Urobilinogen Urine 1 mg/dL (Negative)
[2023-08-05 18:02] LABS: Add Urine Culture? No; Amorphous Sediment Urine 1+ /hpf; Bacteria Urine TRACE /hpf; Mucus Urine TRACE /hpf; RBC Urine 0-4 /hpf (0-2); Transitional Epi Cells Urine 0-4 /hpf; WBC Urine 0-4 /hpf (0-5)
[2023-08-05 18:38] LABS: Reflex Lactate Order REFLEX LACTIC ORDERD
[2023-08-05] MEDS: propofol 1,000 MG/100 ML INJ 5 MG IV (18:38)
[2023-08-05 18:50] LABS: SARS Covid-2 Antigen negative (Negative)
--- NOTE | 2023-08-05 18:58 | CTR_ITS ---
PROCEDURE INFORMATION: Exam: CT Head Without Contrast Exam date and time: 08/05/2023 7:42 PM Age: 73 years old Clinical indication: Altered mental status/memory loss; Additional info: AMS, cpr, pinpoint pupils TECHNIQUE: Imaging protocol: Computed tomography of the head without contrast. Radiation optimization: All CT scans at this facility use at least one of these dose optimization techniques: automated exposure control; mA and/or kV adjustment per patient size (includes targeted exams where dose is matched to clinical indication); or iterative reconstruction. COMPARISON: RF FL barium swallow modifd [id number] 07/07/2023 11:32 AM RADIATION DOSE METRICS: Total DLP (mGy-cm): 1229 FINDINGS: Brain: No hemorrhage. No edema. Moderate diffuse cerebral atrophy and mild sequela of chronic small vessel ischemic disease. No mass effect. Cerebral ventricles: No ventriculomegaly. Paranasal sinuses: Visualized sinuses are unremarkable. No fluid levels. Mastoid air cells: Visualized mastoid air cells are well aerated. Bones/joints: Unremarkable. No acute fracture. Soft tissues: Unremarkable. CT/CT head wo con* [id number] IMPRESSION: No acute intracranial abnormality.
--- NOTE | 2023-08-05 19:01 | CTR_ITS ---
PROCEDURE INFORMATION: Exam: CT Chest Without Contrast; Diagnostic Exam date and time: 08/05/2023 7:45 PM Age: 73 years old Clinical indication: Other: Post code; Additional info: Arrested had cpr, mobile 10th rib right, resp failure TECHNIQUE: Imaging protocol: Diagnostic computed tomography of the chest without contrast. Radiation optimization: All CT scans at this facility use at least one of these dose optimization techniques: automated exposure control; mA and/or kV adjustment per patient size (includes targeted exams where dose is matched to clinical indication); or iterative reconstruction. COMPARISON: CT chest w con* [id number] 07/15/2023 10:04 PM RADIATION DOSE METRICS: Total DLP (mGy-cm): 1188 FINDINGS: Thyroid: Grossly unremarkable. Trachea: Endotracheal tube in place with tip approximately 2.6 cm from the pepe. Lungs: Extensive bilateral airspace opacities and consolidations compatible with multifocal pneumonia and/or ARDS. Pleural spaces: Moderate right-sided and small left-sided pleural effusions. Artifact limits detailed evaluation of the effusions. The density of the left effusion raising the question of hemothorax, though again evaluation is limited by artifact. Heart: No cardiomegaly or pericardial effusion. Coronary arteries: The Lymph nodes: No evidence of mediastinal adenopathy. Evaluation for hilar adenopathy is limited by lack of IV contrast. Vasculature: Dual lumen right IJ central venous catheter No evidence of aneurysmal dilatation of the thoracic aorta. Evaluation for acute vascular injury or thrombosis is limited by lack of IV contrast. Diaphragm: No evidence of diaphragmatic defect. Bones/joints: Acute nondisplaced fracture of the left L1 transverse process. Thoracic spine is intact. No convincing evidence of rib fracture. Soft tissues: No evidence of fluid collection, hematoma or masslike lesion in the superficial soft tissues within limitations of a noncontrast exam. PROCEDURE INFORMATION: Exam: CT Abdomen And Pelvis Without Contrast Exam date and time: 08/05/2023 7:45 PM Age: 73 years old Clinical indication: Other: Post code; Additional info: Arrested had cpr, mobile 10th rib right, resp failure TECHNIQUE: Imaging protocol: Computed tomography of the abdomen and pelvis without contrast. Radiation optimization: All CT scans at this facility use at least one of these dose optimization techniques: automated exposure control; mA and/or kV adjustment per patient size (includes targeted exams where dose is matched to clinical indication); or iterative reconstruction. COMPARISON: US renal BI with PV bladder 02/09/2023 11:22 AM RADIATION DOSE METRICS: Total DLP (mGy-cm): 1188 FINDINGS: Lungs: Subsegmental bibasilar atelectasis. The visualized lung bases are otherwise clear. Diaphragm: No evidence of diaphragmatic defect. Liver: No focal hepatic lesion within limitations of a noncontrast exam. Gallbladder and bile ducts: Status post cholecystectomy. No evidence of intrahepatic or extrahepatic biliary dilatation. Pancreas: Grossly unremarkable. Spleen: Grossly unremarkable. Adrenal glands: Grossly unremarkable. Kidneys and ureters: No gross renal parenchymal abnormality. No evidence of hydronephrosis or ureteral stone. Stomach and bowel: No evidence of bowel obstruction, free air or pneumatosis. No evidence of fluid collection. Appendix: Normal appendix. Intraperitoneal space: Small free fluid. There is diffuse mesenteric edema and subcutaneous soft tissue edema compatible with anasarca. Vasculature: No evidence of aneurysmal dilitation of abdominal aorta. Evaluation for vascular injury or thombosis is limited by lack of IV contrast. Lymph nodes: No evidence of adenopathy. Urinary bladder: Decompressed by a Kincaid catheter in expected position. Reproductive: Grossly unremarkable. Bones/joints: No evidence of acute fracture or aggresive osseous lesion. Soft tissues: No evidence of fluid collection, hematoma or mass-like lesion in the superficial soft tissues within limitations of a noncontrast exam. Other: Extensive aortobi-iliac atherosclerosis without aneurysmal dilatation. CT/[place] [id number] IMPRESSION: 1. Extensive bilateral airspace opacities and consolidations compatible with multifocal pneumonia and/or ARDS. 2. Moderate right-sided and small left-sided pleural effusions. Artifact limits detailed evaluation of the effusions. The density of the left effusion raises the question of hemothorax, though again evaluation is limited by artifact. 3. Acute nondisplaced fracture of the left L1 transverse process. 4. Endotracheal tube and right IJ dialysis catheter in place. IMPRESSION: 1. Anasarca with small free fluid. 2. Kincaid catheter in place.
[2023-08-05 19:54] LABS: Lactic Acid level (Lactate) 3.9 mmol/L (0.5-2.2)
--- NOTE | 2023-08-05 20:05 | PC.NURSE ---
IO removed at this time
--- NOTE | 2023-08-05 20:38 | PC.NURSE ---
Report called to [facility] per Charge nurse Stephania. Pt being transported via airevac. Pt on levophed and propofol. and daughter at bedside. given the number and address of facility that patient is being transported too. Pt is on the vent, RT at bedside switching vent to Airevacs ventilator.
== END 2023-08-05 20:52 | disposition short-term general hospital (02) ==
PROVIDERS: Emergency Provider Emergency Medicine; PCP Family Medicine
DX: J96.92 Respiratory failure, unspecified with hypercapnia (principal); J96.91 Respiratory failure, unspecified with hypoxia; E87.20 Acidosis, unspecified; R74.01 Elevation of levels of liver transaminase levels; J81.1 Chronic pulmonary edema; I46.9 Cardiac arrest, cause unspecified; Z11.52 Encounter for screening for COVID-19; E11.22 Type 2 diabetes mellitus with diabetic chronic kidney disease; I13.2 Hypertensive heart and chronic kidney disease with heart failure and with stage 5 chronic kidney disease, or end stage renal disease; I50.9 Heart failure, unspecified; N18.6 End stage renal disease; Z99.2 Dependence on renal dialysis; E78.5 Hyperlipidemia, unspecified; E11.42 Type 2 diabetes mellitus with diabetic polyneuropathy; I25.5 Ischemic cardiomyopathy; I25.10 Atherosclerotic heart disease of native coronary artery without angina pectoris
CPT/HCPCS: 36415; 36600; 51702; 70450; 71045; 71250; 74176; 80051; 80053; 81001; 82330; 82803; 82805; 83605; 83735; 85025; 85610; 85730; 87070; 87205; 87426; 93005; 94002; 94799; 96361; 96374; 96375; 99291; J2250; J2704; J7030

== ENCOUNTER 2023-09-22 08:03 | Oncology outpatient (recurring) (ONCR) | payer MEDICARE, SELFPAY ==
[2023-09-22 08:14] VITALS: BP 172/82; PULSE 80; RESP 20; TEMP 36.2; O2SAT 95
--- NOTE | 2023-09-22 15:55 | PC.NURSE ---
Pt in infusion room for removal of tunneled PICC line. Pt has two lines, right side of chest is for dialysis per . Left sided PICC is the one that is to be removed. As per , sutures are removed from PICC line already by nurse at previous hospital. This nurse attempted to remove line. With slight pulling of line, pt complains of pain. Line would not come out. Called REESE Garibay from GI lab. She observed pts PICC line. It was agreed that staff would not attempt any more to remove line. Lani called general surgery for Dr. De La Rosa. Doctor states to bring him up to 3rd floor to his office for PICC removal. Cleaned PICC site with chloraprep and covered with gauze and tegaderm for transport to general surgery. This nurse pushed pt in wheel chair to Dr. Briggs office for PICC removal.
== END 2023-10-02 23:59 | disposition home or self-care (01) ==
PROVIDERS: PCP Family Medicine; Visit Provider Family Medicine
DX: Z45.2 Encounter for adjustment and management of vascular access device (principal); Z53.9 Procedure and treatment not carried out, unspecified reason
CPT/HCPCS: 36590; 99204

== ENCOUNTER 2023-09-29 20:10 | Outpatient (CLI) | payer MEDICARE, SELFPAY ==
[2023-09-29 21:29] LABS: Thyroid Stimulating Hormone 95.34 uIU/mL (0.27-4.20)
== END 2023-09-29 20:11 | disposition home or self-care (01) ==
PROVIDERS: PCP Family Medicine; Visit Provider Family Medicine
DX: R94.6 Abnormal results of thyroid function studies (principal)
CPT/HCPCS: 84443

== ENCOUNTER 2023-10-06 11:32 | Inpatient (IN) | payer MEDICARE, SELFPAY ==
[2023-10-06] VITALS (79 sets, daily range): BP systolic 109–175; BP diastolic 56–109; PULSE 77–135; RESP 3–44; TEMP 36.3–36.8; O2SAT 81–100; BMI 29.7; BMI 26.9
--- NOTE | 2023-10-06 11:35 | XRR_ITS ---
PROCEDURE INFORMATION: Exam: XR Chest Exam date and time: 10/06/2023 11:45 AM Age: 73 years old Clinical indication: Cough and dyspnea; Prior surgery; Surgery date: 6+ months; Surgery type: Dialysis cath; Additional info: Dyspnea/cough TECHNIQUE: Imaging protocol: Radiologic exam of the chest. Views: 1 view. COMPARISON: [place] [id number] 08/05/2023 7:45 PM FINDINGS: Tubes, catheters and devices: Right IJ dialysis catheter remains in place with tip near the cavoatrial junction. Interval removal of the ETT. Lungs: Interval increase in right pleural effusion which is now [id number] in size partial obscuration of subjacent right lung with ground-glass opacities in the visualized perihilar region. Suboptimal pulmonary expansion with associated accentuation of bronchovascular markings. Small left effusion with mild left basilar atelectasis and/or airspace disease. Pleural spaces: See Lungs finding. Heart/Mediastinum: Cardiomediastinal contours are unremarkable where visualized. Bones/joints: Degenerative changes noted in the shoulders. XR/XR chest 1V portable [id number] IMPRESSION: Interval enlargement of right pleural effusion now moderate to large in size with obscuration majority of the right lung. Left basilar atelectasis and/or airspace disease with small left effusion.
--- NOTE | 2023-10-06 11:39 | ECG_ITS ---
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 Measurements Intervals [place] Rate: 133 P: 46 VA: 198 QRS: 49 QRSD: 101 T: 56 QT: 335 QTc: 499 Interpretive Statements SINUS TACHYCARDIA WITH OCCASIONAL VENTRICULAR PREMATURE COMPLEXES INCOMPLETE RIGHT BUNDLE BRANCH BLOCK [90+ ms QRS DURATION, TERMINAL R IN V1/V2, 40+ ms S IN I/aVL/V4/V5/V6] ABNORMAL RHYTHM ECG Compared to ECG 08/05/2023 16:07:27 Ventricular premature complex(es) now present Incomplete right bundle-branch block now present Sinus rhythm no longer present Myocardial infarct finding no longer present Electronically Signed On 10-06-2023 13:29:00 SENIOR BIOINFORMATICS SPECIALIST by Harry Bryant M.D. [id number]
[2023-10-06 11:40] LABS: ABG PCO2 56.5 mmHg (35-45); Alveolar-Arterial Oxygen Gradi 55.6 mmHg (5-10); Arterial Blood Gas Hematocrit 34.5 % (42-52); Base Excess ABG 8.1 mmol/L (-2.0-2.0); Blood Gas Allen Test Pos; Blood Gas Operator Identificat MONRO; Blood Gas Sample Site Radial, left; Blood Gas Sample Type Arterial; Carboxyhemoglobin 0.9 %THgb (0.4-20.1); HCO3 ABG 34.5 mmol/L (22-26); HGB O2 Sat 98.5 % (95-100); Ionized Calcium Level - ABG 1.2 mmol/L (1.1-1.4); Methemoglobin 0.6 % (0.4-1.5); Oxygen Device NRB; PO2 FiO2 Ratio Arterial Blood 0; Potassium Level - ABG 4.4 mmol/L (3.5-5.0); Total Hemoglobin 11.2 g/dL (14-18)
[2023-10-06 11:47] LABS: Basophils # 0.1 10^3/uL (0.0-0.1); Basophils % 0.7 %; Eosinophils # 0.5 10^3/uL (0.0-0.8); Eosinophils % 4.3 %; Hematocrit 37.4 % (37-53); Lymphocytes % 36.3 %; Mean Corpuscular HGB Conc 30.2 g/dL (30-55); Mean Corpuscular Hemoglobin 29.2 pg (27-33); Mean Corpuscular Volume 96.6 fl (82-101); Mean Platelet Volume 9.3 fL (7.4-10.4); Monocytes # 0.7 10^3/uL (0.2-0.9); Monocytes % 6.1 %; Neutrophils # 5.69 10^3/uL (1.8-7.7); Neutrophils % 52.3 %; Nucleated Red Blood Cells % 0 %; Platelet Count 245 10^3/cmm (157-399); Red Blood Count 3.87 10^6/uL (3.85-5.65); Red Cell Distribution Width 14.4 % (12.1-15.1)
[2023-10-06] MEDS: dexamethasone 10 mg/mL INJ IM (12:00)
[2023-10-06] MEDS: ipratropium-albuterol 3 mL Neb INHALATION (12:07)
--- NOTE | 2023-10-06 12:07 | PC.PHAR ---
pts verified pts medications-pts states she gives the pt humalog kwikpen ss tid prn rx filled for 10 units tid-pt was discharged on 09/18/23 with levemir flexpen 10 units qam pts states she gives 12 units qam-pts states the pts ultram 50mg hs,mag ox 400mg daily,klonopin 0.5mg take 0.25mg hs, was dced-pts states she gives the pt metoprolol tartrate 50mg qam rx filled for 50mg bid-
[2023-10-06 12:16] LABS: Alanine Aminotransferase 8 U/L (0-41); Albumin Level 3.4 g/dL (3.5-5.2); Alkaline Phosphatase 79 U/L (40-130); Anion Gap 13.8 (5-19); Aspartate Amino Transferase 12 U/L (0-40); Blood Urea Nitrogen 26 mg/dL (8-23); Calcium 8.1 mg/dL (8.5-10.5); Carbon Dioxide 34 mmol/L (22-29); Chloride 94 mmol/L (98-107); Globulin 1.9 g/dL (1.3-4.6); Glucose 140 mg/dL (65-115); Osmolality Calculated 291 mOsm/kg (285-295); Potassium 4.8 mmol/L (3.5-5.1); Sodium 137 mmol/L (136-145); Total Bilirubin 0.2 mg/dL (0.15-1.2); Total Protein 5.3 g/dL (6.6-8.7)
--- NOTE | 2023-10-06 12:16 | W.ED.SOB ---
HPI - SOB/Dyspnea General: Chief Complaint: Shortness of Breath/Dyspnea Stated Complaint: resp distress Time Seen by Provider: 10/06/23 11:35 History of Present Illness: HPI Narrative: 73-year-old male presents to the emergency room via EMS in acute respiratory distress is on BiPAP by the EMS. He is also been tachycardic. Normally he is on 2 L on arrival here he is satting 98%. He is normally on dialysis for end-stage renal disease Friday and Saturdays he did receive all of his recent dialysis treatments. He has been increasingly short of breath with a nonproductive cough. He has not had any chest pain. Associated symptoms: Deny abdominal pain, chest pain or fever(s) Review of Systems Const: Denies: fever(s) or chills Card: Denies: chest pain Resp: Denies: dyspnea GI: Denies: abdominal pain : Denies: dysuria, urinary frequency or urinary urgency Musc: Denies: neck pain or back pain Skin/Breast: Denies: rash PFSH ED PFSH: Medical History (Updated 10/06/23 @ 15:00 by Garrett Schwartz DO) Hypothyroidism SVT (supraventricular tachycardia) Atrial flutter ESRD on hemodialysis Leg wound, left Protein calorie malnutrition Aspiration pneumonitis Pulmonary edema Dehiscence of wound Contrast-induced nephropathy Pulmonary infiltrate present on computed tomography Non-pressure chronic ulcer of other part of right foot with necrosis of bone Atelectasis, left 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 Hyperlipidemia Diabetic peripheral neuropathy associated with type 2 diabetes mellitus Peripheral arterial disease Gangrenous toe CKD (chronic kidney disease) Systolic heart failure Pleural effusion, left Non-healing ulcer Ischemic cardiomyopathy Diabetic ulcer of right foot Atherosclerosis of coronary artery Kidney stone Amputation toe Diabetes mellitus with peripheral vascular disease HTN (hypertension) Diabetes Surgical History History of amputation of toe S/P transmetatarsal amputation of foot Status post amputation of toe of right foot H/O chest tube placement S/P cholecystectomy S/P tonsillectomy S/P cataract extraction Family History Father Cancer LUNG Mother CAD (coronary artery disease) Diabetes Congestive heart failure (CHF) Myocardial infarction Social History Smoking and tobacco/nicotine status: never used tobacco/nicotine Alcohol intake: never Substance/Drug Use: never Household members: spouse Marital status: Current occupational status: retired Physical Exam Const: COMMON NORMALS: no acute distress GENERAL APPEARANCE: cooperative and comfortable ORIENTATION/CONSCIOUSNESS: Yes awake, Yes oriented to person, Yes oriented to place and Yes oriented to time HENMT: COMMON NORMALS: normocephalic, atraumatic and hearing grossly normal bilaterally HEAD & SCALP: normocephalic and atraumatic Resp: COMMON NORMALS: normal respiratory effort, No retractions, No use of accessory muscles and clear to auscultation bilaterally AUSCULTATION: clear to auscultation bilaterally Cardio: COMMON NORMALS: regular rate, regular rhythm and No murmurs present (Cardio) RATE: regular rate RHYTHM: regular rhythm GI: COMMON NORMALS: Soft to palpation and No hepatosplenomegaly present AUSCULTATION: Yes normoactive bowel sounds PALPATION: Yes Soft to palpation, No Tenderness to palpation present (GI), No Guarding due to palpation present (GI) and Yes No hepatosplenomegaly present Extremity: COMMON NORMALS: normal to inspection, capillary refill normal, no clubbing, cyanosis or edema, no calf tenderness and no pedal edema Neuro: SENSORIUM/ORIENTATION: Yes oriented to person, Yes oriented to place and Yes oriented to time Skin: COMMON NORMALS: no rashes or lesions noted GENERAL SKIN EXAM: no rashes or lesions noted Course Vital Signs: Vital signs: Vital Signs Temperature 98.2 F 10/06/23 11:32 Pulse Rate 101 H 10/06/23 14:32 Respiratory Rate 16 10/06/23 12:07 Blood Pressure 128/88 10/06/23 13:52 Pulse Oximetry 96 10/06/23 14:32 Oxygen Delivery Me thod BiPAP 10/06/23 12:07 Oxygen Flow Rate 15 10/06/23 11:32 Fraction of Inspir ed Oxygen 35 10/06/23 14:32 MDM - SOB/Dyspnea Medical Decision Making Patient acute respiratory distress large pleural effusion. Troponin is elevated although the second troponin did not climb. He is due for dialysis tomorrow. Will admit to the hospital ICU on BiPAP. Consult nephrology and consider dialysis this evening. Will also consult pulmonology for assistance with the pleural effusion. Discussed with hospitalist orders written Medical Records I reviewed the patient's medical records. Lab Data I reviewed the patient's lab results. 10/06/23 11:21 10/06/23 11:21 Labs/Radiology: Radiology Impressions Chest X-Ray 10/06/23 11:35 IMPRESSION: Interval enlargement of right pleural effusion now moderate to large in size with obscuration majority of the right lung. Left basilar atelectasis and/or airspace disease with small left effusion. Laboratory Results WBC 10.90 10^3/uL (3.29-11.43) 10/06/23 11:21 RBC 3.87 10^6/uL (3.85-5.65) 10/06/23 11:21 Hgb 11.30 g/dL (11.27-16.99) 10/06/23 11:21 Hct 37.4 % (37-53) 10/06/23 11:21 MCV 96.6 fl (82-101) 10/06/23 11:21 MCH 29.2 pg (27-33) 10/06/23 11:21 MCHC 30.2 g/dL (30-55) 10/06/23 11:21 RDW 14.4 % (12.1-15.1) 10/06/23 11:21 Plt Count 245 10^3/cmm (157-399) 10/06/23 11:21 MPV 9.3 fL (7.4-10.4) 10/06/23 11:21 Neut % (Auto) 52.3 % 10/06/23 11:21 Lymph % (Auto) 36.3 % 10/06/23 11:21 [place] % (Auto) 6.1 % 10/06/23 11:21 Eos % (Auto) 4.3 % 10/06/23 11:21 Baso % (Auto) 0.7 % 10/06/23 11:21 Neut # (Auto) 5.69 10^3/uL (1.8-7.7) 10/06/23 11:21 Lymph # (Auto) 4.0 10^3/uL (0.8-4.8) 10/06/23 11:21 [place] # (Auto) 0.7 10^3/uL (0.2-0.9) 10/06/23 11:21 Eos # (Auto) 0.5 10^3/uL (0.0-0.8) 10/06/23 11:21 Baso # (Auto) 0.1 10^3/uL (0.0-0.1) 10/06/23 11:21 Nucleated RBC % (auto) 0 % 10/06/23 11:21 Nucleated RBCs # 0.0 /100WBC 10/06/23 11:21 Specimen Type Arterial 10/06/23 11:27 Sample Site Radial, left 10/06/23 11:27 ABG pH 7.40 (7.35-7.45) 10/06/23 11:27 ABG pCO2 56.5 mmHg (35-45) H 10/06/23 11:27 ABG pO2 211.0 mmHg (80.0-100.0) H 10/06/23 11:27 ABG PO2/FiO2 Ratio 0 10/06/23 11:27 ABG HCO3 34.5 mmol/L (22-26) H 10/06/23 11:27 ABG O2 Saturation 100.0 10/06/23 11:27 ABG Base Excess 8.1 mmol/L (-2.0-2.0) H 10/06/23 11:27 Peter Test Pos 10/06/23 11:27 A-a O2 Gradient 55.6 mmHg (5-10) H 10/06/23 11:27 Hematocrit 34.5 % (42-52) L 10/06/23 11:27 Hgb O2 Saturation 98.5 % (95-100) 10/06/23 11:27 Carboxyhemoglobin 0.9 %THgb (0.4-20.1) 10/06/23 11:27 Methemoglobin 0.6 % (0.4-1.5) 10/06/23 11:27 Total Hemoglobin 11.2 g/dL (14-18) L 10/06/23 11:27 Sodium 138.0 mmol/L (131-143) 10/06/23 11:27 Potassium 4.4 mmol/L (3.5-5.0) 10/06/23 11:27 Glucose 138.0 mg/dL (70-115) H 10/06/23 11:27 Ionized Calcium 1.2 mmol/L (1.1-1.4) 10/06/23 11:27 O2 Delivery Device Nrb 10/06/23 11:27 O2 Liters/Min 15.0 % 10/06/23 11:27 FiO2 100.0 % 10/06/23 11:27 Manager Training And Development ID Rashmi 10/06/23 11:27 Sodium 137 mmol/L (136-145) 10/06/23 11:21 Potassium 4.8 mmol/L (3.5-5.1) 10/06/23 11:21 Chloride 94 mmol/L (98-107) L 10/06/23 11:21 Carbon Dioxide 34 mmol/L (22-29) H 10/06/23 11:21 Anion Gap 13.8 (5-19) 10/06/23 11:21 BUN 26 mg/dL (8-23) H 10/06/23 11:21 Creatinine 4.1 mg/dL (0.7-1.2) H 10/06/23 11:21 GFR Calculation Not Reportable 10/06/23 11:21 Glucose 140 mg/dL (65-115) H 10/06/23 11:21 Calculated Osmolality 291 mOsm/kg (285-295) 10/06/23 11:21 Lactic Acid 1.0 mmol/L (0.5-2.2) 10/06/23 11:21 Calcium 8.1 mg/dL (8.5-10.5) L 10/06/23 11:21 Total Bilirubin 0.2 mg/dL (0.15-1.2) 10/06/23 11:21 AST 12 U/L (0-40) 10/06/23 11:21 ALT 8 U/L (0-41) 10/06/23 11:21 Alkaline Phosphatase 79 U/L (40-130) 10/06/23 11:21 Troponin T Baseline 340 ng/L (0-15) H* 10/06/23 11:21 Troponin T 120 Minute 336.6 ng/L (0-15) H 10/06/23 13:21 Delta Troponin T -3.4 ABS# (0-10) L 10/06/23 13:21 NT-Pro-B Natriuret Pep 24653 pg/mL (0-125) H 10/06/23 11:21 Total Protein 5.3 g/dL (6.6-8.7) L 10/06/23 11:21 Albumin 3.4 g/dL (3.5-5.2) L 10/06/23 11:21 Globulin 1.9 g/dL (1.3-4.6) 10/06/23 11:21 Influenza Type A Ag Negative (Negative) 10/06/23 12:05 Influenza Type B Ag Negative (Negative) 10/06/23 12:05 All radiology interpretation(s) finalized by discharge Discharge Plan Discharge Patient Disposition: Admitted As Inpatient Clinical Impression: Acute exacerbation of chronic obstructive airways disease, Diabetic ulcer of right foot, Respiratory failure, Pleural effusion, End-stage renal disease on hemodialysis Condition: Stable Prescriptions: No Action garlic 1,000 mg capsule 1,000 mg PO DAILY (DME) [place] to the right See Rx Instructions .Route .MEDSUPPLY Qty: 1 0RF Rx Instructions: As directed (DME) [place] to Right Lower Extremity See Rx Instructions .Route .MEDSUPPLY Qty: 1 0RF Rx Instructions: As directed The Toshia Brasher[employer] insulin lispro [Humalog KwikPen Insulin] 100 unit/mL insulin pen See Rx Instructions .ROUTE .COMPLEX Qty: 15 0RF Dose Instruction: inject 10 units SUBCUTANEOUSLY THREE TIMES DAILY Rx Instructions: sliding scale tid prn (DME) FreeStyle Marcial 2 Sensor Kit MISCELLANEOUS Qty: 1 0RF Rx Instructions: As directed nitroglycerin [Nitrostat] 0.4 mg Tablet, Sublingual 0.4 mg SUBLINGUAL Q5M PRN (Reason: Chest Pain) Rx Instructions: do not exceed 3 doses per episode resveratrol 100 mg Capsule 100 mg PO BID [place] Drops See Rx Instructions .ROUTE .COMPLEX Rx Instructions: one dropperful twice a day aspirin 81 mg tablet,delayed release (DR/EC) 81 mg PO BEDTIME Vitamin B Complex Liquid See Rx Instructions .ROUTE .COMPLEX Rx Instructions: one dropperful once a day clopidogrel 75 mg tablet 75 mg PO BEDTIME levothyroxine 150 mcg tablet 150 mcg PO QAM metoprolol tartrate 50 mg tablet 50 mg PO QAM Levemir FlexPen 100 unit/mL (3 mL) insulin pen 12 unit SUBCUT QAM (DME) FreeStyle Marcial 2 [place] Misc MISCELLANEOUS fenugreek seed 610 mg Capsule 610 mg PO DAILY Referrals: Evelin Jenkins DO [Primary Care Provider] - Patient Instructions: Opioid Safety, Pain Management Coding Level of Care Code ED Revenue Integrity Analyst for Abdirizak Zhou
[2023-10-06 12:19] LABS: Creatinine Clr Calc Pharmacy 19.0165
[2023-10-06 12:25] LABS: Troponin(5th) Baseline 340 ng/L (0-15)
[2023-10-06 12:41] LABS: NT Pro B Type Natriuretic Pept 48077 pg/mL (0-125)
[2023-10-06 12:41] LABS: Influenza A by IFA Negative (Negative); Influenza B by IFA Negative (Negative)
--- NOTE | 2023-10-06 12:49 | CT_ITS ---
WS: [id number] CTA OF THE CHEST WITH PULMONARY EMBOLISM PROTOCOL TECHNIQUE: High-resolution contrast enhanced CTA of the chest with coronal and sagittal reformatted i mages with pulmonary embolism protocol. MIP images are also reviewed. CLINICAL INFORMATION: large pleural effusion, resp failure COMPARISON: CT 08/05/2023 DLP: 475.[address] scans at [facility] use at least one of these dose optimization techniques: automated e xposure control; mA and/or kV adjustment per patient size (includes targeted exams where dose is matc hed to clinical indication); or iterative reconstruction. FINDINGS: Proximal main pulmonary arteries are normal. No evidence of pulmonary embolus. Aortic calcification. Normal caliber thoracic aorta. Coronary calcification. Large RIGHT pleural effusion with compressive atelectasis in the RIGHT middle lobe and RIGHT lower lo be. Mild RIGHT to LEFT mediastinal shift. Slight hazy infiltrates in the RIGHT upper lobe have improv ed. Subsegmental atelectasis LEFT lower lobe with trace LEFT pleural fluid. RIGHT subpectoral and supraclavicular inflammatory stranding and induration with suspected retropecto ral hematoma. Recommend correlation with recent line placement. RIGHT IJ catheter with tip in the di stal SVC. Small esophageal hiatal hernia. Cardiomegaly. Mild RIGHT to LEFT mediastinal shift. Induration with inflammatory stranding in the RIG HT chest with suspected subpectoral hematoma. Small amount of subcutaneous air in this area. Recommen d correlation for recent line placement in this area. Hematoma measures approximately 7.1 x 3.5 cm IMPRESSION: 1. No evidence of pulmonary embolus. 2. Large RIGHT pleural effusion progressed compared to previous. Improved RIGHT upper lobe groundgla ss infiltrates. Compressive atelectasis RIGHT lower lobe and RIGHT middle lobe. 3. Improved LEFT pleural effusion with subsegmental atelectasis LEFT lower lobe. 4. Moderate chronic emphysematous changes. 5. Mild RIGHT to LEFT mediastinal shift. 6. Diffuse body wall anasarca. 7. RIGHT subpectoral hematoma described above may be due to recent attempted line placement. RIGHT t unneled IJ catheter appears in good position with tip in the SVC. Notified Garrett Schwartz DO at 10/06/2023 2:34 PM.
[2023-10-06] MEDS: meropenem 1,000 MG in sodium chloride 0.9% (plus) 50 ML 100 MG IV (13:12)
[2023-10-06] MEDS: sodium chloride 0.9% 500 ML IV (13:16)
--- NOTE | 2023-10-06 13:36 | ECG_ITS ---
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 Measurements Intervals [place] Rate: 92 P: 76 MI: 169 QRS: 50 QRSD: 100 T: 96 QT: 362 QTc: 448 Interpretive Statements SINUS RHYTHM INCOMPLETE RIGHT BUNDLE BRANCH BLOCK [90+ ms QRS DURATION, TERMINAL R IN V1/V2, 40+ ms S IN I/aVL/V4/V5/V6] NONSPECIFIC T-WAVE ABNORMALITY Compared to ECG 10/06/2023 11:39:45 T-wave abnormality now present Sinus tachycardia no longer present Ventricular premature complex(es) no longer present Electronically Signed On 10-06-2023 16:16:20 CERTIFIED PROSTHETIST VICE PRESIDENT by Harry Bryant M.D. [id number]
[2023-10-06] MEDS: iohexol 350 mg/mL 500 mL Btl (per mL) IV (13:54)
[2023-10-06 14:02] LABS: Troponin 5 2HR 336.6 ng/L (0-15); Troponin 5 2HR Delta -3.4 ABS# (0-10)
--- NOTE | 2023-10-06 14:09 | P.HP_ITS ---
Providers/Chief Complaint 2 Admitting Physician: Roseline Parson MD Primary Care Provider: Evelin Jenkins DO Chief Complaint: resp distress History of Present Illness Usman Alvarez is a 73 year old male who presented to the emergency room with chief complaint of increased heart rate and increased difficulty breathing today. Mr. Alvarez has had a significant medical history over the last 6 months or so. He was last hospitalized here in June and July 2023. At that time he had hyperkalemia and evidence of acute kidney injury along with hypercapnic respiratory failure requiring BiPAP. He also developed atrial fibrillation with rapid ventricular response along with increasing volume overload. He required initiation of hemodialysis. There was also concern for acute coronary syndrome but further evaluation was not undertaken due to kidney dysfunction and lack of chest pain. He followed up with his primary care provider and had home health care. In August he presented to the emergency room again after an out of hospital cardiac arrest with return of spontaneous circulation. He was transferred to [place] due to lack of ICU beds here. He was intubated there for 17 days. Outside records reviewed and he was covid positive then, received remdesivir and dexamethasoneDuring his hospital stay he required dialysis, diuresis and ultimately underwent cardiac catheterization with subsequent percutaneous intervention. Review of stent cards show that he had 3 drug-eluting stents placed in the RCA. 2 days after this procedure he was able to be extubated. He was quite deconditioned but has generally done okay since then. He does have pressure injury to the sacral area that is still requiring treatment and he still requires significant assistance with activities of daily living but had gotten to where he could stand up a bit on his own to assist in this. Over the last few days patient and his have noticed gradually worsening increased work of breathing. Home health nurses come out regularly. He had a low-grade temperature 1 day. No significant cough. Not necessarily experiencing significant edema. Oxygen saturations have been doing okay. He is usually on 3 L by nasal cannula during the day and is on BiPAP at night. Today when home health came out, they noted that Mr. Alvarez heart rate was quite high and that his work of breathing was much worse than it has been. According to his symptoms began maybe 10 minutes after he took his metoprolol dose this morning. She does not know if it had anything to do with it but did note this in talking with me. No reports of any chest pain. On arrival to the emergency room heart rate in the 130s. Normally heart rate is normal per his . Blood pressures dropped transiently but ultimately improved. Patient required initiation of BiPAP in route due to difficulty breathing. Usual dialysis schedule is Tuesdays, and Saturdays with last session on Friday. No significant change in diet or changes to medications. He is not on any diuretics. Unknown if had significant weight gain. Typically sleeps with some elevation in the bed. Review of Systems 2 General: Reports: Other (ROS as per HPI or as otherwise noted here) Const: Reports: fever(s) (Low-grade temp a couple of days ago); Denies: change in weight ENMT: Denies: throat pain or nasal congestion Card: Reports: palpitations, edema, lightheadedness, dyspnea on exertion and orthopnea; Denies: chest pain Resp: Reports: dyspnea; Denies: productive cough, pain on inspiration or hemoptysis GI: Denies: diarrhea (But some fecal urgency) or hematochezia : Denies: difficulty urinating or hematuria Musc: Reports: muscle weakness and decrease in muscle mass Skin/Breast: Reports: lesions (Sacral area and right foot) Neuro: Reports: weakness in extremities Psych: Reports: anxiety and other (Difficulty with sleep) Zeb/Lymph: Reports: easy bruising Medications/Allergies Home Medications Medication Instructions Recorded Confirmed Last Taken Type garlic 1,000 mg capsule 1,000 mg PO DAILY 08/31/19 10/06/23 06/30/23 History Mullein Drops See Rx Instructions .Route .COMPLEX 02/05/23 10/06/23 07/01/23 History aspirin 81 mg tablet,delayed 81 mg PO BEDTIME 02/05/23 10/06/23 10/05/23 History release nitroglycerin 0.4 mg sublingual 0.4 mg sublingual Q5M PRN Chest 02/05/23 10/06/23 Unknown History tablet (Nitrostat) Pain resveratrol 100 mg capsule 100 mg PO BID 02/05/23 10/06/23 10/05/23 History Owls Boot to Right Lower Extremity #1 ea 03/24/23 10/06/23 Unknown Rx Cam Boot to the right #1 ea 03/26/23 10/06/23 Unknown Rx Vitamin B Complex Liquid See Rx Instructions .Route .COMPLEX 04/16/23 10/06/23 07/01/23 History flash glucose scanning reader 07/19/23 10/06/23 Unknown History (FreeStyle Marcial 2 Gallagher) fenugreek seed 610 mg capsule 610 mg PO DAILY 08/05/23 10/06/23 Unknown History insulin lispro 100 unit/mL See Rx Instructions .Route 09/08/23 10/06/23 Unknown Rx subcutaneous pen (Humalog KwikPen .COMPLEX #15 mL (U-100) Insulin) flash glucose sensor (FreeStyle #1 ea 10/03/23 10/06/23 Unknown Rx Marcial 2 Sensor kit) clopidogrel 75 mg tablet 75 mg PO BEDTIME 10/06/23 10/06/23 10/05/23 History insulin detemir U-100 100 unit/mL 12 unit SUBCUT QAM 10/06/23 10/06/23 10/06/23 History (3 mL) subcutaneous pen (Levemir FlexPen) levothyroxine 150 mcg tablet 150 mcg PO QAM 10/06/23 10/06/23 10/06/23 History metoprolol tartrate 50 mg tablet 50 mg PO QAM 10/06/23 10/06/23 10/06/23 History Allergies Allergy/AdvReac Type Severity Reaction Status Date / Time Penicillins Allergy Severe Throat Verified 09/22/23 09:27 swells amiodarone Allergy Unknown Verified 09/22/23 09:27 atorvastatin Allergy ADR-Muscle Verified 09/22/23 09:27 Pain azithromycin Allergy ADR/ALGY-Pa Verified 09/22/23 09:27 lpitations ciprofloxacin Allergy hallucinations Verified 09/22/23 09:27 and burning sensation in legs mirtazapine [From Remeron] Allergy ADR-Nightma Verified 10/06/23 12:00 re simvastatin Allergy ADR-Muscle Verified 09/22/23 09:27 Pain Cordarone Allergy Unknown Confusion Uncoded 09/22/23 09:27 PFSH Acute 2 PFSH: Medical History (Updated 10/06/23 @ 17:56 by Roseline Parson MD) Atherosclerosis of coronary artery Sputum culture positive for Pseudomonas and bactrim resistant stenotrophomonas in 08/2023 from [place], prolonged ventilation COVID-19 08/2023 History of pneumothorax 07/2023 iatragenic Hypothyroidism SVT (supraventricular tachycardia) Atrial flutter does not tolerate amiodarone per ESRD on hemodialysis Hopeful that he will be able to come off of dialysis Leg wound, left Protein calorie malnutrition Aspiration pneumonitis Pulmonary edema Dehiscence of wound 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 Atelectasis, left 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 Hyperlipidemia Diabetic peripheral neuropathy associated with type 2 diabetes mellitus Peripheral arterial disease Gangrenous toe CKD (chronic kidney disease) Systolic heart failure Pleural effusion, left Non-healing ulcer Ischemic cardiomyopathy Diabetic ulcer of right foot Kidney stone Amputation toe Diabetes mellitus with peripheral vascular disease HTN (hypertension) Diabetes Surgical History (Updated 10/06/23 @ 17:50 by Roseline Parson MD) History of thoracentesis 08/2022, 07/2023 right pleural effusion, S/P right coronary artery (RCA) stent placement 08/2023 at [place], 3 JETT to RCA [(2) 2.5 x 38mm, (1) 2.5 x 12 mm] History of cardiac catheterization 08/2023 at [place] History of amputation of toe S/P transmetatarsal amputation of foot all toes right foor Status post amputation of toe of right foot H/O chest tube placement S/P cholecystectomy S/P tonsillectomy S/P cataract extraction Family History Father Cancer LUNG Mother CAD (coronary artery disease) Diabetes Congestive heart failure (CHF) Myocardial infarction Social History Smoking and tobacco/nicotine status: never used tobacco/nicotine Alcohol intake: never Substance/Drug Use: never Household members: spouse Marital status: Current occupational status: retired Vitals/I&O/Wt Last Vital Signs Temp 98.2 F 10/06/23 11:32 Pulse 128 H 10/06/23 12:10 Resp 16 10/06/23 12:07 BP 128/88 10/06/23 13:52 Pulse Ox 99 10/06/23 12:10 O2 Del Method BiPAP 10/06/23 12:07 O2 Flow Rate 15 10/06/23 11:32 FiO2 35 10/06/23 12:10 Weight last 48 hrs Weight 93.894 kg Physical Exam 2 Narrative: Patient is awake and alert. Able to provide some basic information but currently on BiPAP and unable to talk for long periods of time. Some bruising and dried blood noted around the nose from mask but otherwise normocephalic. Extraocular movements are intact. Visible oral mucosa is dry. Neck is supple. Elevated JVD. Lungs with coarse breath sounds on the left. Some breath sounds noted in the right apices but right lung is otherwise decreased. Some retractions noted. Abdomen is soft, nontender with positive bowel sounds. Kincaid catheter in place with cloudy urine and significant sediment. Trace pitting edema. Previous amputation of toes of right foot with scabbing and healing as shown below. Currently unable to visualize sacral wounds present on admission due to respiratoy status. Some stasis changes, brisk capillary refill. Bruising noted at right lateral thorax. Speech clear. Data 10/06/23 11:21 10/06/23 11:21 Other Labs: Radiology Impressions Chest X-Ray 10/06/23 11:35 IMPRESSION: Interval enlargement of right pleural effusion now moderate to large in size with obscuration majority of the right lung. Left basilar atelectasis and/or airspace disease with small left effusion. Laboratory Results WBC 10.90 10^3/uL (3.29-11.43) 10/06/23 11:21 RBC 3.87 10^6/uL (3.85-5.65) 10/06/23 11:21 Hgb 11.30 g/dL (11.27-16.99) 10/06/23 11:21 Hct 37.4 % (37-53) 10/06/23 11:21 MCV 96.6 fl (82-101) 10/06/23 11:21 MCH 29.2 pg (27-33) 10/06/23 11:21 MCHC 30.2 g/dL (30-55) 10/06/23 11:21 RDW 14.4 % (12.1-15.1) 10/06/23 11:21 Plt Count 245 10^3/cmm (157-399) 10/06/23 11:21 MPV 9.3 fL (7.4-10.4) 10/06/23 11:21 Neut % (Auto) 52.3 % 10/06/23 11:21 Lymph % (Auto) 36.3 % 10/06/23 11:21 [place] % (Auto) 6.1 % 10/06/23 11:21 Eos % (Auto) 4.3 % 10/06/23 11:21 Baso % (Auto) 0.7 % 10/06/23 11:21 Neut # (Auto) 5.69 10^3/uL (1.8-7.7) 10/06/23 11:21 Lymph # (Auto) 4.0 10^3/uL (0.8-4.8) 10/06/23 11:21 [place] # (Auto) 0.7 10^3/uL (0.2-0.9) 10/06/23 11:21 Eos # (Auto) 0.5 10^3/uL (0.0-0.8) 10/06/23 11:21 Baso # (Auto) 0.1 10^3/uL (0.0-0.1) 10/06/23 11:21 Nucleated RBC % (auto) 0 % 10/06/23 11:21 Nucleated RBCs # 0.0 /100WBC 10/06/23 11:21 Specimen Type Arterial 10/06/23 11:27 Sample Site Radial, left 10/06/23 11:27 ABG pH 7.40 (7.35-7.45) 10/06/23 11:27 ABG pCO2 56.5 mmHg (35-45) H 10/06/23 11:27 ABG pO2 211.0 mmHg (80.0-100.0) H 10/06/23 11:27 ABG PO2/FiO2 Ratio 0 10/06/23 11:27 ABG HCO3 34.5 mmol/L (22-26) H 10/06/23 11:27 ABG O2 Saturation 100.0 10/06/23 11:27 ABG Base Excess 8.1 mmol/L (-2.0-2.0) H 10/06/23 11:27 Peter Test Pos 10/06/23 11:27 A-a O2 Gradient 55.6 mmHg (5-10) H 10/06/23 11:27 Hematocrit 34.5 % (42-52) L 10/06/23 11:27 Hgb O2 Saturation 98.5 % (95-100) 10/06/23 11:27 Carboxyhemoglobin 0.9 %THgb (0.4-20.1) 10/06/23 11:27 Methemoglobin 0.6 % (0.4-1.5) 10/06/23 11:27 Total Hemoglobin 11.2 g/dL (14-18) L 10/06/23 11:27 Sodium 138.0 mmol/L (131-143) 10/06/23 11:27 Potassium 4.4 mmol/L (3.5-5.0) 10/06/23 11:27 Glucose 138.0 mg/dL (70-115) H 10/06/23 11:27 Ionized Calcium 1.2 mmol/L (1.1-1.4) 10/06/23 11:27 O2 Delivery Device Nrb 10/06/23 11:27 O2 Liters/Min 15.0 % 10/06/23 11:27 FiO2 100.0 % 10/06/23 11:27 Boat Engines Installer ID Monro 10/06/23 11:27 Sodium 137 mmol/L (136-145) 10/06/23 11:21 Potassium 4.8 mmol/L (3.5-5.1) 10/06/23 11:21 Chloride 94 mmol/L (98-107) L 10/06/23 11:21 Carbon Dioxide 34 mmol/L (22-29) H 10/06/23 11:21 Anion Gap 13.8 (5-19) 10/06/23 11:21 BUN 26 mg/dL (8-23) H 10/06/23 11:21 Creatinine 4.1 mg/dL (0.7-1.2) H 10/06/23 11:21 GFR Calculation Not Reportable 10/06/23 11:21 Glucose 140 mg/dL (65-115) H 10/06/23 11:21 Calculated Osmolality 291 mOsm/kg (285-295) 10/06/23 11:21 Lactic Acid 1.0 mmol/L (0.5-2.2) 10/06/23 11:21 Calcium 8.1 mg/dL (8.5-10.5) L 10/06/23 11:21 Total Bilirubin 0.2 mg/dL (0.15-1.2) 10/06/23 11:21 AST 12 U/L (0-40) 10/06/23 11:21 ALT 8 U/L (0-41) 10/06/23 11:21 Alkaline Phosphatase 79 U/L (40-130) 10/06/23 11:21 Troponin T Baseline 340 ng/L (0-15) H* 10/06/23 11:21 Troponin T 120 Minute 336.6 ng/L (0-15) H 10/06/23 13:21 Delta Troponin T -3.4 ABS# (0-10) L 10/06/23 13:21 NT-Pro-B Natriuret Pep 53616 pg/mL (0-125) H 10/06/23 11:21 Total Protein 5.3 g/dL (6.6-8.7) L 10/06/23 11:21 Albumin 3.4 g/dL (3.5-5.2) L 10/06/23 11:21 Globulin 1.9 g/dL (1.3-4.6) 10/06/23 11:21 Influenza Type A Ag Negative (Negative) 10/06/23 12:05 Influenza Type B Ag Negative (Negative) 10/06/23 12:05 Micro: Microbiology 10/06/23 12:14 Blood Culture - Preliminary Blood SPECIMEN COLLECTED 10/06/23 12:11 Blood Culture - Preliminary Blood SPECIMEN COLLECTED A&P Assessment and plan (1) Exertional dyspnea: Gradually worsening over time and acutely worse today. Has been found to have large right-sided pleural effusion which I suspect is the primary cause of respiratory issues. He had a prolonged hospital stay with prolonged intubation in August of this year. Review of records from [facility] where he was hospitalized shows that he had COVID at that time with associated ARDS. He also was found to have coronary atherosclerosis and underwent placement of 3 RCA stents. He carries a diagnosis of ischemic cardiomyopathy. Echocardiogram from [place] did show decreased ejection fraction prior to stent placement. Last echo here in June showed EF of 45 to 50%. He is not on chronic diuretic therapy. No BENEDICT or ARB secondary to renal dysfunction and blood pressures. Progressively worsening CHF is within the differential. proBNP is significantly elevated at 48,000 but I do not know what his baseline is after acute illness from August. He does remain on dialysis. I am not sure currently if he has had decreased volume taken off given reported attempts to get him off of dialysis. Thromboembolic event within differential but CTA did not show evidence of such. Pulmonary infection should also be kept in mind. He had Pseudomonas and Bactrim resistant stenotrophomonas noted in sputum cultures at [place] a couple of months ago. (2) SVT (supraventricular tachycardia): Somewhat sudden onset today. I suspect it is related to #1 secondary to #3 and its impact on respiratory status. He received his usual metoprolol dosing, antibiotics and 1 dose of Lasix with clinical improvement. Has a history of atrial fibrillation with rapid ventricular response/atrial flutter during a prior hospital stay. Not on chronic anticoagulation due to concern about bleeding risk. Is on antiplatelet therapy with aspirin and Plavix. (3) Pleural effusion, right: Has previously had pleural effusion on the left. In July of last year did have some right-sided effusion identified and underwent a thoracentesis of approximately 900 cc fluid. I did not see indication of thoracentesis being performed at [facility] nor does recall that 1 had been done there. July did not show any abnormal. Pathology from cells. Studies noted. (4) CKD (chronic kidney disease): Currently on hemodialysis 3 times a week. Initial need for dialysis was contrast related nephropathy. Dialysis catheter was placed in the right upper chest in July of last year. He has had improvement in his kidney function over time according to his and him and his remain hopeful that he may be able to come off of dialysis. Previously had chronic kidney disease stage III-IV before acute events at the end of last year beginning of this year. Does make urine. With contrast administration today at risk for contrast-induced nephropathy. Qualifiers: Chronic kidney disease stage: on chronic dialysis Qualified Code(s): N 18.6 - End stage renal disease; Z99.2 - Dependence on renal dialysis (5) UTI (urinary tract infection): Present on admission. No reported dysuria but has had increased sediment and cloudiness noted at home. Qualifiers: Urinary tract infection type: acute cystitis Hematuria presence: w ithout hematuria Qualified Code(s): N30.00 - Acute cystitis without hematuria (6) Atherosclerosis of coronary artery: Status post RCA stent x 3 in August of this year. Initial troponin 340. 2- hour troponin 336. Unknown baseline after prolonged hospital stay in August of this year when he had the cardiac intervention. No report of chest pain, primarily shortness of breath with palpitations and some transient lightheadedness. Cannot currently rule out a type II process but I suspect he has a baseline significant elevation in troponin currently. On chronic aspirin and Plavix along with beta-blockade. Intolerant of statin therapy. Has as needed nitroglycerin at home. Qualifiers: Coronary Disease-Associated Artery/Lesion type: [place] artery [place] vs. transplanted heart: [place] heart Associated angina: without angina Qualified Code(s): I25.10 - Atherosclerotic heart disease of [place] coronary artery without angina pectoris (7) Hypothyroidism: Suboptimally controlled with most recent TSH at 92. Dosing of levothyroxine was adjusted. Qualifiers: Hypothyroidism type: acquired Qualified Code(s): E03.9 - Hypothyroidism, unspecified (8) Diabetes mellitus with peripheral vascular disease: Insulin requiring. On both long and short acting insulin. (9) Chronic ulcer of toe of right foot with fat layer exposed: Follows with Dr. Baird (10) Pressure injury of sacral region, unstageable: Has regular wound care, currently receiving Santyl with dressing changes daily (11) Panic attacks: And difficulty sleeping. Has been tried on multiple medications none with any significant success. Hesitant to try new medications as he does not tolerate medicines the same way others do. Currently manageable. Plan Inpatient admission ICU level care for now Nephrology consultation for hemodialysis today given contrast administration and chronic dialysis Pulmonology consultation for assistance with respiratory management and likely thoracentesis Continue meropenem at renal dosing Status post 1 dose of vancomycin Blood and urine cultures are pending Status post 1 dose of IV Lasix in the emergency room Will monitor urine output Maintain Kincaid catheter for close monitoring of urine output in a dialysis patient with significant effusion Continue serial cardiac enzymes Telemetry monitoring Continue home aspirin, Plavix, beta-blockade Continue home levothyroxine Continue long and short acting insulin though I will adjust dosages given acute illness Continue wound care to sacral region and right foot as per outpatient management Turn frequently Continue home oxygen therapy and BiPAP as needed, adjusting as indicated Home vitamins and supplements are currently held Repeat laboratory studies ordered tomorrow VTE prophylaxis: Subcu heparin GI Prophylaxis: PPI Antibiotics: Status post 1 dose of vancomycin 3/4, meropenem initiated 3/4 Pending studies: Blood and urine cultures, thoracentesis, sputum pending collection Telemetry: Ordered secondary to arrhythmia at presentation Kincaid: Ordered secondary to need to monitor urine output and overall volume status closely Line(s): peripheral IVs, right upper chest dialysis catheter. I will note patient had a PICC line removed in September. Disposition plan: Currently anticipate discharge back home with home health care to include ongoing wound care, medication assistance, PT and OT. Followed by a [facility] home health care who sent him to the hospital today Code Status: Full Code Supportive care otherwise Findings, concerns and plans were discussed with patient as well as his and they were given an opportunity to ask questions Attestations 2 Medical Necessity Statement*: Anticipated stay greater than two midnights in this patient presenting with respiratory difficulty and tachycardia found to have significant right pleural effusion and other issues as described above. Currently being evaluated by pulmonology & nephrology, plan for thoracentesis, undergoing dialysis outside of usual schedule secondary to need for contrast administration today, receiving IV antibiotics and close monitoring in the ICU setting. and High Time for a total of 85 minutes, includes reviewing past or interval history, examining/interviewing patient, placing orders, counseling patient/family/other support, discussing plan of care with staff, communicating with other healthcare providers and documenting encounter Diagnoses Exertional dyspnea R06.09 SVT (supraventricular tachycardia) I47.1 Pleural effusion, right J90 Stage 5 chronic kidney disease on chronic dialysis N18.6; Z99.2 Chronic kidney disease stage: on chronic dialysis Acute cystitis without hematuria N30.00 Urinary tract infection type: acute cystitis Hematuria presence: without hematuria Atherosclerosis of [place] coronary artery of [place] heart without angina pectoris I25.10 Coronary Disease-Associated Artery/Lesion type: [place] artery [place] vs. transplanted heart: [place] heart Associated angina: without angina Acquired hypothyroidism E03.9 Hypothyroidism type: acquired Diabetes mellitus with peripheral vascular disease E11.51 Chronic ulcer of toe of right foot with fat layer exposed L97.512 Pressure injury of sacral region, unstageable L89.150 Panic attacks F41.0
[2023-10-06] MEDS: vancomycin 1,000 MG in sodium chloride 0.9% 250 ML 250 MG IV (14:22)
--- NOTE | 2023-10-06 14:28 | PC.NURSE ---
Nurse verbalized with Dr. Parson, per provider hold heparin drip until further notice.
[2023-10-06 15:33] LABS: Bilirubin Urine Neg (Negative); Blood Urine 3+ (Negative); Glucose Urine UA Norm (Normal); Ketones Urine Negative (Negative); Nitrate Urine Negative (Negative); Protein Urine 2+ (Negative); Urine Color Yellow (Yellow); pH Urine 5 (5-7)
[2023-10-06 15:34] LABS: Add Urine Culture? Yes; Add Urine Microscopic? YES; Bacteria Urine TRACE /hpf; Leukocyte Esterase Urine 2+ (Negative); RBC Urine 0-4 /hpf (0-2); Squamous Epithelial Cell Urine 0-4 /hpf (0-5); Urobilinogen Urine Norm (Negative); WBC Urine 55-80 /hpf (0-5)
[2023-10-06 15:51] LABS: Adenovirus Not Detected (NOT DETECT); Chlamydia Pneumoniae Not Detected (NOT DETECT); Coronavirus 229E,HKU1,NL63,OC4 Not Detected (NOT DETECT); Human Metapneumovirus Not Detected (NOT DETECT); Human Rhinovirus/Enterovirus Not Detected (NOT DETECT); Influenza A Not Detected (NOT DETECT); Influenza A H1 Not Detected (NOT DETECT); Influenza A H1-2009 Not Detected (NOT DETECT); Influenza A H3 Not Detected (NOT DETECT); Influenza B Not Detected (NOT DETECT); Mycoplasma Pneumoniae Not Detected (NOT DETECT); Parainfluenza Virus Type 1 Not Detected (NOT DETECT); Parainfluenza Virus Type 2 Not Detected (NOT DETECT); Parainfluenza Virus Type 3 Not Detected (NOT DETECT); Parainfluenza Virus Type 4 Not Detected (NOT DETECT); Respiratory Syncytial Virus A Not Detected (NOT DETECT); Respiratory Syncytial Virus B Not Detected (NOT DETECT); SARS-COV-2 Not Detected (NOT DETECT)
[2023-10-06] MEDS: FUROsemide 10 mg/mL SDV 4mL 40 MG IVP (16:16)
--- NOTE | 2023-10-06 16:39 | PC.NURSE ---
Received pt from ER per er hand off report to hold heparin drip ordered by doctor salas. wound assessment.
--- NOTE | 2023-10-06 17:05 | ECG_ITS ---
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 Measurements Intervals Willis Rate: 99 P: 63 GA: 166 QRS: 37 QRSD: 102 T: 92 QT: 352 QTc: 453 Interpretive Statements SINUS RHYTHM INCOMPLETE RIGHT BUNDLE BRANCH BLOCK [90+ ms QRS DURATION, TERMINAL R IN V1/V2, 40+ ms S IN I/aVL/V4/V5/V6] Compared to ECG 10/06/2023 14:49:42 T-wave abnormality no longer present Electronically Signed On 10-06-2023 23:20:45 UX DEVELOPER DESIGNER by Harry Bryant M.D. [id number]
[2023-10-06] MEDS: ondansetron 2 mg/ML SDV 2 mL 4 MG IVP (17:13)
--- NOTE | 2023-10-06 17:47 | PM.CONSULT ---
Providers/Reason For Consult Consulting Physician/Specialty*: Wilfredo Mejía MD/Pulmonary Critical Care Reason for Consult*: Large right pleural effusion Requesting Physician: Dr. Schwartz Attending Physician: Roseline Parson MD Primary Care Provider: Evelin Jenkins DO History of Present Illness History of Present Illness Usman Alvarez is a 73 year old male with past medical history atrial flutter; DM, HTN, Hyperlipidemia, PAD came to the emergency room nded the emergency room today morning with chief complaint of increased heart rate and increased shortness of breath. Patient patient had 2 admissions in June 2023 in July 2023-hyperkalemia, evidence of acute kidney injury with hypercapnic respiratory failure requiring BiPAP. He also had A-fib with RVR and increasing volume overload. He was started on hemodialysis at that time. There was a concern for underlying acute coronary syndrome but further evaluation not pursued due to kidney dysfunction. In August 2022-he presented to ER after an [id number]-[id number] cardiac arrest with return of spontaneous circulation-transfer to [facility]-intubated for 17 days; outside records suggest he was tested positive for COVID-treated with remdesivir and dexamethasone. He underwent cardiac catheterization with subsequent placement of 3 drug-eluting stents in the RCA. According to his , patient was significantly deconditioned during August 2022 hospital admission-still requiring significant assistance with activities of daily living. Today home health nurse checked patient's heart rate was quite high and work of breathing was much worse and so she called EMS and patient was brought to hospital. In the emergency room patient chest imaging showed a significant right pleural effusion and patient is on his baseline 2 L supplemental oxygen. Pulmonary consult requested for therapeutic thoracentesis. Seen patient at bedside-he is in ICU-lying on bed and appeared not in significant respiratory distress-saturating 94% on 2 L nasal cannula Is visibly fluid overloaded-tells me that he gets easily short of breath; reported that she has noticed gradual worsening of his work of breathing and trying to assist him for his ADLs. And noticed low-grade fever. He is using his 3 L nasal cannula during daytime and BiPAP at nighttime. His last hemodialysis was 2 days ago I have seen patient in late 2021 in pulmonary clinic referred for persistent left lower lobe pleural effusion/consolidation after having pneumonia in April 2022. He was referred for outpatient thoracentesis and ultrasound examination by radiology on 05/09/2022 showed small left pleural effusion with mobile atelectatic lung within the effusion-not good enough pocket to tap.Follow-up CT on 05/30/2022 showed continued consolidation of the left lung base. Previous chest x-rays he has a left hemidiaphragm elevation in 10/09/2020. Sniff test ruled out diaphragmatic paralysis. Suspect the fluid may be secondary to left lower lobe atelectasis as well as systolic CHF. I did flexible bronchoscopy on 06/17/2022 to look for any endobronchial lesions causing left lower lobe atelectasis. I have seen a lot of mucopurulent secretions on both sides which were suctioned right away. Cultures grew corynebacterium species but identification and sensitivity were not possible. Also left lower lobe airways has significant mucosal edema and biopsy of these areas were reported chronic inflammation. Suspected chronic aspiration as cause of left lower airway mucosal edema leading to atelectasis and the transudative fluid accumulation-barium swallow August 2022-showed esophageal dysmotility and potential for aspiration. Patient was referred for VATS. He underwent VATS in September 2022 and Malgorzata Marquez- ??- is not sure if they did pleurodesis. However 2 days imaging did not show any significant left pleural effusion. Review of Systems General: Reports: 10 or more systems reviewed and unremarkable except in HPI and below Medications/Allergies Home Medications Medication Instructions Recorded Confirmed Last Taken Type garlic 1,000 mg capsule 1,000 mg PO DAILY 08/31/19 10/06/23 06/30/23 History Mullein Drops See Rx Instructions .Route .COMPLEX 02/05/23 10/06/23 07/01/23 History aspirin 81 mg tablet,delayed 81 mg PO BEDTIME 02/05/23 10/06/23 10/05/23 History release nitroglycerin 0.4 mg sublingual 0.4 mg sublingual Q5M PRN Chest 02/05/23 10/06/23 Unknown History tablet (Nitrostat) Pain resveratrol 100 mg capsule 100 mg PO BID 02/05/23 10/06/23 10/05/23 History Owls Boot to Right Lower Extremity #1 ea 03/24/23 10/06/23 Unknown Rx Cam Boot to the right #1 ea 03/26/23 10/06/23 Unknown Rx Vitamin B Complex Liquid See Rx Instructions .Route .COMPLEX 04/16/23 10/06/23 07/01/23 History flash glucose scanning reader 07/19/23 10/06/23 Unknown History (FreeStyle Marcial 2 Alviso) fenugreek seed 610 mg capsule 610 mg PO DAILY 08/05/23 10/06/23 Unknown History insulin lispro 100 unit/mL See Rx Instructions .Route 09/08/23 10/06/23 Unknown Rx subcutaneous pen (Humalog KwikPen .COMPLEX #15 mL (U-100) Insulin) flash glucose sensor (FreeStyle #1 ea 10/03/23 10/06/23 Unknown Rx Marcial 2 Sensor kit) clopidogrel 75 mg tablet 75 mg PO BEDTIME 10/06/23 10/06/23 10/05/23 History insulin detemir U-100 100 unit/mL 12 unit SUBCUT QAM 10/06/23 10/06/23 10/06/23 History (3 mL) subcutaneous pen (Levemir FlexPen) levothyroxine 150 mcg tablet 150 mcg PO QAM 10/06/23 10/06/23 10/06/23 History metoprolol tartrate 50 mg tablet 50 mg PO QAM 10/06/23 10/06/23 10/06/23 History Allergies Allergy/AdvReac Type Severity Reaction Status Date / Time Penicillins Allergy Severe Throat Verified 09/22/23 09:27 swells amiodarone Allergy Unknown Verified 09/22/23 09:27 atorvastatin Allergy ADR-Muscle Verified 09/22/23 09:27 Pain azithromycin Allergy ADR/ALGY-Pa Verified 09/22/23 09:27 lpitations ciprofloxacin Allergy hallucinations Verified 09/22/23 09:27 and burning sensation in legs mirtazapine [From Remeron] Allergy ADR-Nightma Verified 10/06/23 12:00 re simvastatin Allergy ADR-Muscle Verified 09/22/23 09:27 Pain Cordarone Allergy Unknown Confusion Uncoded 09/22/23 09:27 PFSH Acute PFSH: Medical History Protein calorie malnutrition Atherosclerosis of coronary artery Sputum culture positive for Pseudomonas and bactrim resistant stenotrophomonas in 08/2023 from [place], prolonged ventilation COVID-19 08/2023 History of pneumothorax 07/2023 iatragenic Hypothyroidism SVT (supraventricular tachycardia) Atrial flutter does not tolerate amiodarone per ESRD on hemodialysis Hopeful that he will be able to come off of dialysis Leg wound, left Aspiration pneumonitis Pulmonary edema Dehiscence of wound 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 Atelectasis, left 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 Hyperlipidemia Diabetic peripheral neuropathy associated with type 2 diabetes mellitus Peripheral arterial disease Gangrenous toe CKD (chronic kidney disease) Systolic heart failure Pleural effusion, left Non-healing ulcer Ischemic cardiomyopathy Diabetic ulcer of right foot Kidney stone Amputation toe Diabetes mellitus with peripheral vascular disease HTN (hypertension) Diabetes Surgical History History of thoracentesis 08/2022, 07/2023 right pleural effusion, S/P right coronary artery (RCA) stent placement 08/2023 at [place], 3 JETT to RCA [(2) 2.5 x 38mm, (1) 2.5 x 12 mm] History of cardiac catheterization 08/2023 at [place] History of amputation of toe S/P transmetatarsal amputation of foot all toes right foor Status post amputation of toe of right foot H/O chest tube placement S/P cholecystectomy S/P tonsillectomy S/P cataract extraction Family History Father Cancer LUNG Mother CAD (coronary artery disease) Diabetes Congestive heart failure (CHF) Myocardial infarction Social History Smoking and tobacco/nicotine status: never used tobacco/nicotine Alcohol intake: never Substance/Drug Use: never Household members: spouse Marital status: Current occupational status: retired Vitals/I&O/Wt Last Vital Signs Temp 98.2 F 10/06/23 11:32 Pulse 101 H 10/06/23 14:32 Resp 16 10/06/23 12:07 BP 128/88 10/06/23 13:52 Pulse Ox 96 10/06/23 14:32 O2 Del Method BiPAP 10/06/23 12:07 O2 Flow Rate 15 10/06/23 11:32 FiO2 35 10/06/23 14:32 10/06/23 10/06/23 10/06/23 06:59 14:59 22:59 Intake Total 500 / 500 250 / 750 Balance 500 / 500 250 / 750 Weight last 48 hrs Weight 207 lb Physical Exam Narrative: General: alert, NAD HEENT: conj clear, EOMI, PERRL, mmm, Neck: supple, no meningismus Heme: no cervical LAP Respiratory: Inspection: No visible deformity of the chest wall Palpation: Trachea is mildly deviated to the right, bilateral symmetric expansion Percussion: Dullness to percussion on right lower lung zone Auscultation: Reduced breath sounds on right lower lung zone Cardiovascular: rrr, nl s1s2, no mrg Abdomen: soft, nt, nd, no r/g, bs+ Extremities: pulses +, 1+ pitting pedal edema, no c/c : no CVA tenderness Skin: intact, no rash MSK: no back or neck pain Neurologic: grossly intact Urinary Catheter Management: K[place]aid: Cath Placed During This Visit: yes Urinary Catheter Date of Insertion: 10/06/23 Urinary Catheter Time of Insertion: 14:22 Data 10/08/23 04:59 10/08/23 04:59 Other Labs: Radiology Impressions Chest X-Ray 10/08/23 07:00 IMPRESSION: Increasing infiltrates bilaterally. Laboratory Results WBC 9.83 10^3/uL (3.29-11.43) 10/08/23 04:59 RBC 3.38 10^6/uL (3.85-5.65) L 10/08/23 04:59 Hgb 9.90 g/dL (11.27-16.99) L 10/08/23 04:59 Hct 34.3 % (37-53) L 10/08/23 04:59 MCV 101.5 fl (82-101) H 10/08/23 04:59 MCH 29.3 pg (27-33) 10/08/23 04:59 MCHC 28.9 g/dL (30-55) L 10/08/23 04:59 RDW 14.6 % (12.1-15.1) 10/08/23 04:59 Plt Count 255 10^3/cmm (157-399) 10/08/23 04:59 MPV 9.0 fL (7.4-10.4) 10/08/23 04:59 Neut % (Auto) 45.6 % 10/08/23 04:59 Lymph % (Auto) 41.6 % 10/08/23 04:59 [place] % (Auto) 5.4 % 10/08/23 04:59 Eos % (Auto) 6.0 % 10/08/23 04:59 Baso % (Auto) 1.2 % 10/08/23 04:59 Neut # (Auto) 4.48 10^3/uL (1.8-7.7) 10/08/23 04:59 Lymph # (Auto) 4.1 10^3/uL (0.8-4.8) 10/08/23 04:59 [place] # (Auto) 0.5 10^3/uL (0.2-0.9) 10/08/23 04:59 Eos # (Auto) 0.6 10^3/uL (0.0-0.8) 10/08/23 04:59 Baso # (Auto) 0.1 10^3/uL (0.0-0.1) 10/08/23 04:59 Nucleated RBC % (auto) 0 % 10/08/23 04:59 Nucleated RBCs # 0.0 /100WBC 10/08/23 04:59 Differential Comment Yes 10/06/23 17:45 PT 12.80 SECONDS (12.1-14.9) 10/07/23 03:38 INR 0.93 (0.8-1.2) 10/07/23 03:38 APTT 23.3 SECONDS (23.9-36.7) L 10/07/23 03:38 Specimen Type Arterial 10/07/23 04:05 Sample Site Brachial, right 10/07/23 04:05 ABG pH 7.38 (7.35-7.45) 10/07/23 04:05 ABG pCO2 52.9 mmHg (35-45) H 10/07/23 04:05 ABG pO2 129.0 mmHg (80.0-100.0) H 10/07/23 04:05 ABG PO2/FiO2 Ratio 0 10/07/23 04:05 ABG HCO3 31.3 mmol/L (22-26) H 10/07/23 04:05 ABG O2 Saturation 100.0 10/06/23 11:27 ABG Base Excess 5.2 mmol/L (-2.0-2.0) H 10/07/23 04:05 Peter Test N/a 10/07/23 04:05 A-a O2 Gradient 55.6 mmHg (5-10) H 10/06/23 11:27 Hematocrit 31.3 % (42-52) L 10/07/23 04:05 Hgb O2 Saturation 98.5 % (95-100) 10/06/23 11:27 Carboxyhemoglobin 0.9 %THgb (0.4-20.1) 10/06/23 11:27 Methemoglobin 0.6 % (0.4-1.5) 10/06/23 11:27 Total Hemoglobin 11.2 g/dL (14-18) L 10/06/23 11:27 Sodium 138.0 mmol/L (131-143) 10/06/23 11:27 Potassium 4.4 mmol/L (3.5-5.0) 10/06/23 11:27 Glucose 138.0 mg/dL (70-115) H 10/06/23 11:27 Ionized Calcium 1.2 mmol/L (1.1-1.4) 10/06/23 11:27 O2 Delivery Device Bipap 10/07/23 04:05 O2 Liters/Min 15.0 % 10/06/23 11:27 FiO2 35.0 % 10/07/23 04:05 Tidal Volume 0.50 10/07/23 04:05 Instructor Watch Assembly ID [email or web address] 10/07/23 04:05 Sodium 139 mmol/L (136-145) 10/08/23 04:59 Potassium 4.9 mmol/L (3.5-5.1) 10/08/23 04:59 Chloride 99 mmol/L (98-107) 10/08/23 04:59 Carbon Dioxide 29 mmol/L (22-29) 10/08/23 04:59 Anion Gap 15.9 (5-19) 10/08/23 04:59 BUN 39 mg/dL (8-23) H 10/08/23 04:59 Creatinine 3.9 mg/dL (0.7-1.2) H 10/08/23 04:59 GFR Calculation Not Reportable 10/08/23 04:59 Glucose 201 mg/dL (65-115) H 10/08/23 04:59 POC Glucose 216 mg/dL (70-110) H 10/08/23 21:09 Calculated Osmolality 303 mOsm/kg (285-295) H 10/08/23 04:59 Lactic Acid 1.0 mmol/L (0.5-2.2) 10/06/23 11:21 Calcium 7.8 mg/dL (8.5-10.5) L 10/08/23 04:59 Phosphorus 5.3 mg/dL (2.5-4.5) H 10/08/23 04:59 Magnesium 2.0 mg/dL (1.7-2.3) 10/08/23 04:59 Total Bilirubin 0.2 mg/dL (0.15-1.2) 10/08/23 04:59 AST 10 U/L (0-40) 10/08/23 04:59 ALT 8 U/L (0-41) 10/08/23 04:59 Alkaline Phosphatase 88 U/L (40-130) 10/08/23 04:59 Troponin T Baseline 340 ng/L (0-15) H* 10/06/23 11:21 Troponin T 120 Minute 336.6 ng/L (0-15) H 10/06/23 13:21 Delta Troponin T -3.4 ABS# (0-10) L 10/06/23 13:21 Troponin T Hi Sens 6Hr 270.5 ng/L (0-15) H 10/06/23 18:18 Troponin T Hi Sens 6Hr Delta -69.5 ng/L (0-12) L 10/06/23 18:18 C-Reactive Protein 16.7 mg/L (0.0-4.9) H 10/08/23 04:59 NT-Pro-B Natriuret Pep 43798 pg/mL (0-125) H 10/08/23 04:59 Total Protein 4.9 g/dL (6.6-8.7) L 10/08/23 04:59 Albumin 3.2 g/dL (3.5-5.2) L 10/08/23 04:59 Globulin 1.7 g/dL (1.3-4.6) 10/08/23 04:59 Procalcitonin 0.38 ng/mL (0-0.5) 10/08/23 04:59 Urine Color Yellow (Yellow) 10/06/23 14:15 Urine Appearance Sl cloudy (CLEAR) A 10/06/23 14:15 Urine pH 5 (5-7) 10/06/23 14:15 Ur Specific [place] 1.010 (1.005-1.030) 10/06/23 14:15 Urine Protein 2+ (Negative) H 10/06/23 14:15 Urine Glucose (UA) Norm (Normal) 10/06/23 14:15 Urine Ketones Negative (Negative) 10/06/23 14:15 Urine Blood 3+ (Negative) H 10/06/23 14:15 Urine Nitrate Negative (Negative) 10/06/23 14:15 Urine Bilirubin Neg (Negative) 10/06/23 14:15 Urine Urobilinogen Norm mg/dL (Negative) 10/06/23 14:15 Ur Leukocyte Esterase 2+ (Negative) H 10/06/23 14:15 Urine RBC 0-4 /hpf (0-2) H 10/06/23 14:15 Urine WBC 55-80 /hpf (0-5) H 10/06/23 14:15 Ur Squamous Epith Cells 0-4 /hpf (0-5) H 10/06/23 14:15 Amorphous Sediment Not Reportable 10/06/23 14:15 Urine Bacteria Trace /hpf (NONE) 10/06/23 14:15 Fluid Color Yellow 10/06/23 17:45 Fluid Appearance Clear 10/06/23 17:45 Fluid Specific Grav 1.010 10/06/23 17:45 Fluid pH 9.0 10/06/23 17:45 Fluid WBC 84 /uL 10/06/23 17:45 Fluid RBC 0 10^3/uL 10/06/23 17:45 Fld Polynuclear WBCs # 0.007 10/06/23 17:45 Fld Polynuclear WBCs % 8.300 % 10/06/23 17:45 Fl Mononucl WBCs #(Auto) 0.077 10/06/23 17:45 Fl Mononuclear % Auto 91.700 % 10/06/23 17:45 Fld Crystal Laterality Right pleural fluid 10/06/23 17:45 Fluid Glucose 143.0 mg/dL 10/06/23 17:45 Fluid Albumin 2.3 g/dL 10/06/23 17:45 Fluid LDH 99 U/L 10/06/23 17:45 Fluid Amylase 8 U/L 10/06/23 17:45 Fluid Alk Phosphatase 11 IU/L 10/06/23 17:45 Fluid Cholesterol 56 mg/dL (0-200) 10/06/23 17:45 Fluid Triglycerides 23 mg/dL (0-150) 10/06/23 17:45 Fluid Uric Acid 4 mg/dL 10/06/23 17:45 Pleural Total Protein 3.2 g/dL 10/06/23 17:45 Coronavirus 229E (PCR) Not detected (NOT DETECT) 10/06/23 12:05 Hep Bs Antigen Non-reactive (Nonreactive) 10/06/23 11:21 Hep Bs Antibody < 3.5 (11.5-1000) L 10/06/23 11:21 Hep B Core Total Ab Non-reactive (Nonreactive) 10/06/23 11:21 Influenza Type A Ag Negative (Negative) 10/06/23 12:05 Influenza Type B Ag Negative (Negative) 10/06/23 12:05 SARS-CoV-2 (PCR) Not detected (NOT DETECT) 10/06/23 12:05 Micro: Microbiology 10/06/23 12:14 Blood Culture - Preliminary Blood SPECIMEN COLLECTED 10/06/23 12:11 Blood Culture - Preliminary Blood SPECIMEN COLLECTED A&P Assessment and plan (1) Pleural effusion, right: (2) Acute hypoxic respiratory failure: (3) End-stage renal disease on hemodialysis: Plan # Acute hypoxic respiratory failure secondary to fluid overload-causing large right pleural effusion and patient with underlying ESRD dependent on hemodialysis and recent three-vessel CAD s/p 3 stents -Performed therapeutic thoracentesis-drained 1100 cc fluid and patient started complaining of chest discomfort and so aborted procedure -Fluid is transudative-cultures are pending -His last hemodialysis 2 days ago-patient to get his hemodialysis shortly as per renal team -Patient is on aspirin/clopidogrel/metoprolol for underlying CAD # Rest of the comorbidities managed as per primary team Consult Attestations Medical Necessity Statement: Patient to get hemodialysis shortly and will stay in ICU at least for tonight Time Spent in Patient Care: Greater than 35 minutes (>than 50% of time spent in counselling and/or direct pt care on unit). Critical Care Time: The high probability of a clinically significant, sudden or life threatening deterioration of the patient's [pulmonary, renal, cardiac] system(s) required my full and direct attention, intervention and personal management. The critical care time is as shown. This time is in addition to time spent performing any reported procedures but includes the following: [x] Data and vital sign review and interpretation [x] Patient assessment, examination and intervention [x] Documentation [x] Medication orders and management Critical Care Time (min): 62 Coding Level of Care Code Acute Code for Chg Fwd Diagnoses Pleural effusion, right J90 Acute hypoxic respiratory failure J96.01 End-stage renal disease on hemodialysis N18.6; Z99.2 Time Spent (min) 62
--- NOTE | 2023-10-06 17:48 | P.PCN_ITS ---
Procedure/Consent 2 Time out: Time Out Performed: Yes Consent: Consent for Procedure: Consent obtained from patient Procedure Narrative: Pulmonary & Critical Care Medicine Procedure - Ultrasound guided Thoracentesis Procedure: CPT code 00914 thoracentesis, needle or catheter, aspiration of the pleural space; with imaging guidance Indication: Worsening right pleural effusion. C56.2 Parks Recreation Coordinator(s): Wilfredo Mejía MD [facility] Clinical history: 73-year-old male with past medical history of ESRD on dialysis, recent CAD s/p 3 stents placement, admitted for hypoxic respiratory failure secondary to large right pleural effusion. Technique: The study was performed in an ACR accredited facility. Medication reconciliation form reviewed and any changes related this procedure resolved. Report: The procedure for thoracentesis was explained to the patient including the risks, benefits and possible complications. The patient was given the opportunity to ask questions, wished to proceed, and signed the written informed consent form. Using ultrasound guidance, a safe route of access was identified into the right pleural space. The site was then prepped and draped using maximal sterile barrier technique. The 1% lidocaine was used for local anesthetic. With sonographic guidance, a 6 [place] thoracentesis catheter was placed with return of 5 cc straw-colored pleural fluid. The catheter was slipped into the pleural cavity and approximately 1.1 L of straw-colored pleural fluid was removed and procedure aborted when patient started complaining of discomfort. Suspect there is trapped lung physiology. The patient tolerated the procedure well without any immediate complications. Impression: 1. Successful ultrasound-guided right t horacentesis with removal of approximately 1.1 L of straw-colored pleural fluid. ICD-10 code-J90 pleural effusion, not elsewhere classified Acute Procedures 2 Epistaxis Control: Time out performed: Yes
--- NOTE | 2023-10-06 17:49 | XRR_ITS ---
PROCEDURE INFORMATION: Exam: XR Chest Exam date and time: 10/06/2023 10:00 PM Age: 73 years old Clinical indication: Other: Post thoracentesis; Additional info: Post right side thoracentesis TECHNIQUE: Imaging protocol: Radiologic exam of the chest. Views: 1 view. COMPARISON: 1. CT angio chest PE protcl [id number] 11/05/2023 13:50 2. CR XR chest 1V portable [id number] 10/06/2023 11:45 AM FINDINGS: Lungs: Improved aeration of the right lung with persistent left base consolidation. Stable atelectasis in the left lung base. Pleural spaces: The right effusion is significantly smaller, consistent with thoracentesis. No pneumothorax. Heart/Mediastinum: Unremarkable. No cardiomegaly. Bones/joints: Unremarkable. XR/XR chest 1V portable [id number] IMPRESSION: Improved right pleural effusion. No pneumothorax.
[2023-10-06] MEDS: heparin, porcine 1,000 unit/mL INJ 10 mL 1000 UNIT IV (18:07)
[2023-10-06 18:43] LABS: Glucose Point of Care 103 mg/dL (70-110)
[2023-10-06 19:32] LABS: Troponin 5 6HR Delta -69.5 ng/L (0-12)
[2023-10-06 19:33] LABS: Troponin 5 6HR 270.5 ng/L (0-15)
[2023-10-06 19:34] LABS: Apprearance, Body Fluid CLEAR; Color, Body Fluid YELLOW
--- NOTE | 2023-10-06 19:44 | PC.NURSE ---
1720PM- THORACENTESIS ON RIGHT SIDE DATAR IN ROOM FOR INFORMED CONSENT W/PT AND FOR A THORACENTESIS FOR RIGHT SIDE PLEURAL EFFUSION. TIME OUT PROVIDED. PT VERIFIED AND CORRECT SITE AND SITTING UP POSITION IN BED. REMOVED 1100 ML OF CLEAR YELLOW PLEURAL FLUID. PT STARTED TO GET DIZZY AFTER 20-25MINS. PROCEDURE STOPPED. PT LAID BACK IN BED.
[2023-10-06 19:46] LABS: Body Fluid Polynuclear #Cells 0.007; Body Fluid WBC 84 /uL; Monocytes # Body Fluid 0.077; RBC, Body Fluid 0 10^3/uL
[2023-10-06 19:55] LABS: Cyto Order Verification Order Verified; PATH Referral YES
[2023-10-06 19:56] LABS: Fluid Laterality RIGHT PLEURAL FLUID
--- NOTE | 2023-10-06 20:16 | P.CONIM_ITS ---
Providers/Reason For Consult 2 Consulting Physician/Specialty*: kommana/nephrology Reason for Consult*: ESRD Attending Physician: Roseline Parson MD Primary Care Provider: Evelin Jenkins DO History of Present Illness History of Present Illness Usman Alvarez is a 73 year old male 73-year-old male with past medical history of hypertension, end-stage renal disease on dialysis per Friday schedule, atrial fibrillation, coronary artery disease with prior stents brought to the emergency department due to shortness of breath and respiratory distress. Last dialysis was on Friday. In the emergency department lab data significant for hypoxia and was placed on BiPAP, hemoglobin was 11.3 creatinine was 4.1. Chest x-ray showed large right pleural effusion. Review of Systems 2 Narrative: negative Medications/Allergies Home Medications Medication Instructions Recorded Confirmed Last Taken Type garlic 1,000 mg capsule 1,000 mg PO DAILY 08/31/19 10/06/23 06/30/23 History [place] Drops See Rx Instructions .Route .COMPLEX 02/05/23 10/06/23 07/01/23 History aspirin 81 mg tablet,delayed 81 mg PO BEDTIME 02/05/23 10/06/23 10/05/23 History release nitroglycerin 0.4 mg sublingual 0.4 mg sublingual Q5M PRN Chest 02/05/23 10/06/23 Unknown History tablet (Nitrostat) Pain resveratrol 100 mg capsule 100 mg PO BID 02/05/23 10/06/23 10/05/23 History Owls Boot to Right Lower Extremity #1 ea 03/24/23 10/06/23 Unknown Rx Cam Boot to the right #1 ea 03/26/23 10/06/23 Unknown Rx Vitamin B Complex Liquid See Rx Instructions .Route .COMPLEX 04/16/23 10/06/23 07/01/23 History flash glucose scanning reader 07/19/23 10/06/23 Unknown History (FreeStyle Marcial 2 Joanna) fenugreek seed 610 mg capsule 610 mg PO DAILY 08/05/23 10/06/23 Unknown History insulin lispro 100 unit/mL See Rx Instructions .Route 09/08/23 10/06/23 Unknown Rx subcutaneous pen (Humalog KwikPen .COMPLEX #15 mL (U-100) Insulin) flash glucose sensor (FreeStyle #1 ea 10/03/23 10/06/23 Unknown Rx Marcial 2 Sensor kit) clopidogrel 75 mg tablet 75 mg PO BEDTIME 10/06/23 10/06/23 10/05/23 History insulin detemir U-100 100 unit/mL 12 unit SUBCUT QAM 10/06/23 10/06/23 10/06/23 History (3 mL) subcutaneous pen (Levemir FlexPen) levothyroxine 150 mcg tablet 150 mcg PO QAM 10/06/23 10/06/23 10/06/23 History metoprolol tartrate 50 mg tablet 50 mg PO QAM 10/06/23 10/06/23 10/06/23 History Allergies Allergy/AdvReac Type Severity Reaction Status Date / Time Penicillins Allergy Severe Throat Verified 09/22/23 09:27 swells amiodarone Allergy Unknown Verified 09/22/23 09:27 atorvastatin Allergy ADR-Muscle Verified 09/22/23 09:27 Pain azithromycin Allergy ADR/ALGY-Pa Verified 09/22/23 09:27 lpitations ciprofloxacin Allergy hallucinations Verified 09/22/23 09:27 and burning sensation in legs mirtazapine [From Remeron] Allergy ADR-Nightma Verified 10/06/23 12:00 re simvastatin Allergy ADR-Muscle Verified 09/22/23 09:27 Pain Cordarone Allergy Unknown Confusion Uncoded 09/22/23 09:27 Current Medications Generic Name Dose Route Start Last Admin Trade Name Freq PRN Reason Stop Dose Admin Heparin Sodium (Porcine) 5,000 unit 10/06/23 17:45 10/06/23 18:38 Heparin 5,000 Unit/Ml Inj 1 Ml SUBCUT Not Given Q12H COUNT INCLUDES THE [facility] Insulin Human Lispro 0 unit 10/06/23 18:00 10/06/23 19:01 Insulin Lispro 100 Unit/1 Ml SUBCUT Not Given TIDWM COUNT INCLUDES THE [facility] Protocol PFSH Acute 2 PFSH: Medical History (Updated 10/06/23 @ 17:56 by Roseline Parson MD) Atherosclerosis of coronary artery Sputum culture positive for Pseudomonas and bactrim resistant stenotrophomonas in 08/2023 from [place], prolonged ventilation COVID-19 08/2023 History of pneumothorax 07/2023 iatragenic Hypothyroidism SVT (supraventricular tachycardia) Atrial flutter does not tolerate amiodarone per ESRD on hemodialysis Hopeful that he will be able to come off of dialysis Leg wound, left Protein calorie malnutrition Aspiration pneumonitis Pulmonary edema Dehiscence of wound 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 Atelectasis, left 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 Hyperlipidemia Diabetic peripheral neuropathy associated with type 2 diabetes mellitus Peripheral arterial disease Gangrenous toe CKD (chronic kidney disease) Systolic heart failure Pleural effusion, left Non-healing ulcer Ischemic cardiomyopathy Diabetic ulcer of right foot Kidney stone Amputation toe Diabetes mellitus with peripheral vascular disease HTN (hypertension) Diabetes Surgical History (Updated 10/06/23 @ 17:50 by Roseline Parson MD) History of thoracentesis 08/2022, 07/2023 right pleural effusion, S/P right coronary artery (RCA) stent placement 08/2023 at [facility], 3 JETT to RCA [(2) 2.5 x 38mm, (1) 2.5 x 12 mm] History of cardiac catheterization 08/2023 at [facility] History of amputation of toe S/P transmetatarsal amputation of foot all toes right foor Status post amputation of toe of right foot H/O chest tube placement S/P cholecystectomy S/P tonsillectomy S/P cataract extraction Family History Father Cancer LUNG Mother CAD (coronary artery disease) Diabetes Congestive heart failure (CHF) Myocardial infarction Social History Smoking and tobacco/nicotine status: never used tobacco/nicotine Alcohol intake: never Substance/Drug Use: never Household members: spouse Marital status: Current occupational status: retired Vitals/I&O/Wt Last Vital Signs Temp 97.5 F L 10/06/23 18:21 Pulse 96 10/06/23 18:21 Resp 18 10/06/23 18:21 BP 158/79 10/06/23 18:21 Pulse Ox 100 10/06/23 17:58 O2 Del Method Nasal Cannula 10/06/23 16:40 O2 Flow Rate 15 10/06/23 11:32 FiO2 35 10/06/23 14:32 10/06/23 10/06/23 10/06/23 06:59 14:59 22:59 Intake Total 500 / 500 250 / 750 Output Total 1100 / 1100 Balance 500 / 500 -850 / -350 Weight last 48 hrs Weight 93.894 kg Physical Exam 2 Narrative: awake , alert no distress decreased BS on right per report + edema Urinary Catheter Management: Kincaid: Cath Placed During This Visit: yes Reason for Continuing Indwelling Catheter: Other Urinary Catheter Date of Insertion: 10/06/23 Urinary Catheter Time of Insertion: 14:22 Data 10/07/23 03:38 10/07/23 03:38 Micro: Microbiology 10/06/23 12:14 Blood Culture - Preliminary Blood SPECIMEN COLLECTED 10/06/23 12:11 Blood Culture - Preliminary Blood SPECIMEN COLLECTED A&P Assessment and plan (1) End-stage renal disease on hemodialysis: Plan 1. End-stage renal disease: On TTS schedule as outpatient but patient presented with volume overload and respiratory distress and plan for HD today and ultrafiltration as tolerated. 2. Large right pleural effusion Plan for thoracentesis 3. Hypertension: Restart home meds 4. History of coronary artery disease and stents 5. History of atrial fibrillation 6. Anemia hemoglobin at goal Patient evaluated using audiovisual cart. Time spent 40 minutes. Consult Attestations 2 Medical Necessity Statement: per medicne team Coding Level of Care Code Acute Code for Chg Fwd Diagnoses End-stage renal disease on hemodialysis N18.6; Z99.2
[2023-10-06 20:20] LABS: Albumin Body Fluid 2.3 g/dL; Amylase Body Fluid 8 U/L; Cholesterol Body Fluid 56 mg/dL (0-200); Fluid Alkaline Phos. 11 IU/L; LDH Body Fluid 99 U/L; Total Protein Pleural Fluid 3.2 g/dL; Triglycerides Body Fluid 23 mg/dL (0-150); Uric Acid Body Fluid 4 mg/dL
[2023-10-06 20:56] LABS: Hepatitis B Core AB, Total Non-Reactive (Nonreactive); Hepatitis B Surface AB < 3.5 (11.5-1000); Hepatitis B Surface Antigen Non-Reactive (Nonreactive)
[2023-10-06] MEDS: heparin, porcine 1,000 unit/mL INJ 10 mL 10000 UNIT INTRACATH (21:05)
[2023-10-06 21:57] LABS: Glucose Point of Care 114 mg/dL (70-110)
[2023-10-06] MEDS: aspirin 81 mg EC Tablet PO (22:06)
[2023-10-06] MEDS: clopidogrel 75 mg Tablet PO (22:06)
[2023-10-06] MEDS: metoprolol tartrate 50 mg Tablet 25 MG PO (22:07)
[2023-10-07] VITALS (100 sets, daily range): BP systolic 77–140; BP diastolic 41–90; PULSE 73–87; RESP 0–41; TEMP 36.5–36.8; O2SAT 97–100; BMI 27.1
[2023-10-07] MEDS: meropenem 500 MG in sodium chloride 0.9% (plus) 50 ML 100 MG IV ×2 (01:15→14:44)
[2023-10-07 03:58] LABS: Basophils % 0.2 %; Eosinophils % 0.1 %; Hematocrit 34.7 % (37-53); Lymphocytes # 2.9 10^3/uL (0.8-4.8); Lymphocytes % 36.5 %; Mean Corpuscular HGB Conc 29.4 g/dL (30-55); Mean Corpuscular Hemoglobin 29.1 pg (27-33); Mean Corpuscular Volume 99.1 fl (82-101); Mean Platelet Volume 9.7 fL (7.4-10.4); Monocytes # 0.4 10^3/uL (0.2-0.9); Monocytes % 5.5 %; Neutrophils % 57.3 %; Nucleated Red Blood Cells % 0 %; Platelet Count 217 10^3/cmm (157-399); Red Cell Distribution Width 14.3 % (12.1-15.1); White Blood Count 8.03 10^3/uL (3.29-11.43)
--- NOTE | 2023-10-07 04:00 | XRR_ITS ---
PROCEDURE INFORMATION: Exam: XR Chest Exam date and time: 10/07/2023 4:04 AM Age: 73 years old Clinical indication: Shortness of breath; Additional info: Follow up effusion, shortness of breath TECHNIQUE: Imaging protocol: Radiologic exam of the chest. Views: 1 view. COMPARISON: CR XR chest 1V portable [id number] 10/06/2023 10:00 PM FINDINGS: Tubes, catheters and devices: Dual lumen right central vein catheter with distal tip silhouetting the right atrium, similar to prior comparison. Lungs: Redemonstrated bibasilar airspace disease with interval improvement in aeration from most recent prior. Pleural spaces: Interval improvement in blunting of the bilateral costophrenic angles with residual pleural effusions. Heart/Mediastinum: Unremarkable. No cardiomegaly. Bones/joints: Unremarkable. Other findings: Remainder of the exam is unchanged. XR/XR chest 1V portable [id number] IMPRESSION: 1. Interval improvement in aeration of the bilateral lung west with interval improvement in blunting of the bilateral costophrenic angles with likely residual pleural effusions. 2. Medical devices as above.
[2023-10-07 04:14] LABS: INR 0.93 (0.8-1.2)
[2023-10-07 04:15] LABS: Partial Thromboplastin Time 23.3 SECONDS (23.9-36.7)
[2023-10-07 04:17] LABS: ABG PCO2 52.9 mmHg (35-45); ABG PH Result 7.38 (7.35-7.45); Arterial Blood Gas Hematocrit 31.3 % (42-52); Base Excess ABG 5.2 mmol/L (-2.0-2.0); Blood Gas Sample Site Brachial, right; Blood Gas Sample Type Arterial; HCO3 ABG 31.3 mmol/L (22-26); Oxygen Device BIPAP; PO2 FiO2 Ratio Arterial Blood 0
[2023-10-07 04:21] LABS: Anion Gap 15.7 (5-19); Blood Urea Nitrogen 18 mg/dL (8-23); Calcium 7.9 mg/dL (8.5-10.5); Carbon Dioxide 29 mmol/L (22-29); Chloride 98 mmol/L (98-107); Creatinine Clr Calc Pharmacy 26.0804; Glucose 193 mg/dL (65-115); Osmolality Calculated 293 mOsm/kg (285-295); Potassium 4.7 mmol/L (3.5-5.1); Sodium 138 mmol/L (136-145)
[2023-10-07] MEDS: levothyroxine 150 mcg Tablet PO (05:55)
[2023-10-07] MEDS: heparin 5,000 unit/mL INJ 1 mL 5000 UNIT SUBCUT ×2 (05:55→18:00)
[2023-10-07 07:36] LABS: Glucose Point of Care 160 mg/dL (70-110)
[2023-10-07] MEDS: insulin lispro 100 unit/1 mL SUBCUT ×4 (08:24→21:14)
[2023-10-07] MEDS: insulin glargine 100 units/1 mL 8 UNIT SUBCUT (08:29)
[2023-10-07] MEDS: metoprolol tartrate 50 mg Tablet 25 MG PO (08:40)
[2023-10-07] MEDS: pantoprazole DR 40 mg Tablet PO (08:40)
--- NOTE | 2023-10-07 10:57 | P.PN_ITS ---
Subjective 2 Subjective: feels ok on 3L NC Medications: Reviewed: Yes Vitals/I&O/Wt Last Vital Signs Temp 97.7 F 10/07/23 04:00 Pulse 82 10/07/23 10:35 Resp 23 H 10/07/23 10:00 BP 97/46 10/07/23 10:00 Pulse Ox 100 10/07/23 10:35 O2 Del Method Nasal Cannula 10/07/23 06:00 O2 Flow Rate 3 10/07/23 06:00 FiO2 35 10/07/23 10:35 10/06/23 10/07/23 10/07/23 22:59 06:59 14:59 Intake Total 790 / 1290 50 / 1340 300 / 300 Output Total 4400 / 4400 450 / 4850 Balance -3610 / -3110 -400 / -3510 300 / 300 Weight last 48 hrs Weight 86.001 kg Weight 86.001 kg Weight 81 kg Weight 85.321 kg Weight 93.894 kg Physical Exam 2 Narrative: awake , alert no distress + edema Urinary Catheter Management: Kincaid: Cath Placed During This Visit: yes Reason for Continuing Indwelling Catheter: Chronic Indwelling Urinary Catheter on Admission Urinary Catheter Date of Insertion: 10/06/23 Urinary Catheter Time of Insertion: 14:22 Data 10/07/23 03:38 10/07/23 03:38 Micro: Microbiology 10/06/23 12:14 Blood Culture - Preliminary Blood SPECIMEN COLLECTED 10/06/23 12:11 Blood Culture - Preliminary Blood SPECIMEN COLLECTED A&P Assessment and plan (1) End-stage renal disease on hemodialysis: Plan 1. End-stage renal disease: On TTS schedule as outpatient but patient presented with volume overload and respiratory distress S/P HD yesterday and plan for HD again today 2. Large right pleural effusion S/P thoracentesis 3. Hypertension: Restart home meds 4. History of coronary artery disease and stents 5. History of atrial fibrillation 6. Anemia hemoglobin at goal Patient evaluated using audiovisual cart. Time spent 40 minutes. Attestations 2 Medical Necessity Statement*: per lucy Coding Level of Care Code Acute Code for Chg Fwd Diagnoses End-stage renal disease on hemodialysis N18.6; Z99.2
[2023-10-07 11:44] LABS: Glucose Point of Care 304 mg/dL (70-110)
[2023-10-07] MEDS: norepinephrine 4 MG/250 ML BAG 7.5 MG IV (11:46)
--- NOTE | 2023-10-07 11:59 | PC.HD ---
Upon arrival to patient's room, BP was 83/43. After setting up and preparing to initiate dialysis, BP continued to trend downwards, eventually reaching 71/38. [employer] contacted, this RN advised to abort treatment and try again tomorrow. No dialysis was performed.
[2023-10-07] MEDS: collagenase oint 30 gm 1 APPLIC TOPICAL (14:44)
--- NOTE | 2023-10-07 14:59 | P.PN_ITS ---
Vitals/I&O/Wt Last Vital Signs Temp 97.7 F 10/07/23 04:00 Pulse 82 10/07/23 14:00 Resp 23 H 10/07/23 14:00 BP 110/58 10/07/23 14:00 Pulse Ox 100 10/07/23 14:00 O2 Del Method Nasal Cannula 10/07/23 06:00 O2 Flow Rate 3 10/07/23 06:00 FiO2 35 10/07/23 10:35 10/06/23 10/07/23 10/07/23 22:59 06:59 14:59 Intake Total 790 / 1290 50 / 1340 450 / 450 Output Total 4400 / 4400 450 / 4850 Balance -3610 / -3110 -400 / -3510 450 / 450 Weight last 48 hrs Weight 86.001 kg Weight 86.001 kg Weight 81 kg Weight 85.321 kg Weight 93.894 kg Physical Exam 2 Const: COMMON NORMALS: no acute distress and patient oriented x3 Resp: COMMON NORMALS: normal respiratory effort, No retractions, No use of accessory muscles and clear to auscultation bilaterally AUSCULTATION: clear to auscultation bilaterally Cardio: COMMON NORMALS: regular rate, regular rhythm, S1 normal heart sound present and S2 normal heart sound present RATE: regular rate RHYTHM: r egular rhythm HEART SOUNDS: S1 normal heart sound present and S2 normal heart sound present GI: COMMON NORMALS: Normal to inspection, nondistended, normoactive bowel sounds present and non-tender Extremity: COMMON NORMALS: no pedal edema Neuro: COMMON NORMALS: patient oriented x3 Psych: COMMON NORMALS: mental status grossly normal Urinary Catheter Management: Kincaid: Cath Placed During This Visit: yes Reason for Continuing Indwelling Catheter: Chronic Indwelling Urinary Catheter on Admission Urinary Catheter Date of Insertion: 10/06/23 Urinary Catheter Time of Insertion: 14:22 Data 10/07/23 03:38 10/07/23 03:38 Micro: Microbiology 10/06/23 12:14 Blood Culture - Preliminary Blood NEGATIVE TO DATE 10/06/23 12:11 Blood Culture - Preliminary Blood NEGATIVE TO DATE 10/06/23 17:45 Gram Stain - Final Pleural Fluid Body Fluid Culture - Preliminary A&P Assessment and plan (1) Exertional dyspnea: (2) SVT (supraventricular tachycardia): Somewhat sudden onset today. I suspect it is related to #1 secondary to #3 and its impact on respiratory status. He received his usual metoprolol dosing, antibiotics and 1 dose of Lasix with clinical improvement. Has a history of atrial fibrillation with rapid ventricular response/atrial flutter during a prior hospital stay. Not on chronic anticoagulation due to concern about bleeding risk. Is on antiplatelet therapy with aspirin and Plavix. (3) Pleural effusion, right: (4) CKD (chronic kidney disease): Qualifiers: Chronic kidney disease stage: on chronic dialysis Qualified Code(s): N 18.6 - End stage renal disease; Z99.2 - Dependence on renal dialysis (5) UTI (urinary tract infection): Present on admission. No reported dysuria but has had increased sediment and cloudiness noted at home. Qualifiers: Urinary tract infection type: acute cystitis Hematuria presence: w ithout hematuria Qualified Code(s): N30.00 - Acute cystitis without hematuria (6) Atherosclerosis of coronary artery: Status post RCA stent x 3 in August of this year. Initial troponin 340. 2- hour troponin 336. Unknown baseline after prolonged hospital stay in August of this year when he had the cardiac intervention. No report of chest pain, primarily shortness of breath with palpitations and some transient lightheadedness. Cannot currently rule out a type II process but I suspect he has a baseline significant elevation in troponin currently. On chronic aspirin and Plavix along with beta-blockade. Intolerant of statin therapy. Has as needed nitroglycerin at home. Qualifiers: Coronary Disease-Associated Artery/Lesion type: [place] artery [place] vs. transplanted heart: [place] heart Associated angina: without angina Qualified Code(s): I25.10 - Atherosclerotic heart disease of [place] coronary artery without angina pectoris (7) Hypothyroidism: Suboptimally controlled with most recent TSH at 92. Dosing of levothyroxine was adjusted. Qualifiers: Hypothyroidism type: acquired Qualified Code(s): E03.9 - Hypothyroidism, unspecified (8) Diabetes mellitus with peripheral vascular disease: Insulin requiring. On both long and short acting insulin. (9) Chronic ulcer of toe of right foot with fat layer exposed: Follows with Dr. Baird (10) Pressure injury of sacral region, unstageable: Has regular wound care, currently receiving Santyl with dressing changes daily (11) Panic attacks: And difficulty sleeping. Has been tried on multiple medications none with any significant success. Hesitant to try new medications as he does not tolerate medicines the same way others do. Currently manageable. (12) Acute hypoxic respiratory failure: (13) Physical deconditioning: (14) Protein calorie malnutrition: Plan Acute hypoxic respiratory failure ? Secondary to fluid overload, end-stage renal disease, systolic and diastolic CHF exacerbation ? Plan ? Continue inpatient dialysis ? Continue meropenem ? Follow blood cultures, follow respiratory viral panel ? Will monitor fluid status closely, next?monitor creatinine monitor electrolytes Systolic CHF, ischemic cardiomyopathy ? As above Right pleural effusion ? Status post thoracocentesis , 900 cc removed ?appears transudative ? Follow-up culture studies End-stage renal disease on dialysis ? Continue dialysis send ?currently requiring Levophed during dialysis History of COVID-19, prolonged intubation, prolonged hospitalization, ? Monitor History of CAD status post stenting x 3 Continue aspirin, Plavix Low blood pressure ? Likely requiring during dialysis Concerns for pneumonia ? CT of the chest showed right upper lobe groundglass infiltrates, with subsegmental atelectasis left lower lobe left pleural effusion ? 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 Consult dietary ? Continue protein shakes Type 2 diabetes mellitus, ? Continue insulin sliding scale Right lower extremity UTI, continue meropenem SVT ? Continue to monitor Sacral decubitus ulcer, DTI ? Continue offloading no ? Wound care Chronic ulcer of toe right foot ? Monitor VTE prophylaxis: Subcu heparin GI Prophylaxis: PPI Antibiotics: Status post 1 dose of vancomycin 3/4, meropenem initiated 3/4 Pending studies: Blood and urine cultures, thoracentesis, sputum pending collection Telemetry: Ordered secondary to arrhythmia at presentation Kincaid: Ordered secondary to need to monitor urine output and overall volume status closely Line(s): peripheral IVs, right upper chest dialysis catheter. I will note patient had a PICC line removed in September. Disposition plan: Currently anticipate discharge back home with home health care to include ongoing wound care, medication assistance, PT and OT. Followed by a [facility] home health care who sent him to the hospital today Code Status: Full Code Plan for today, spoke to pulmonary critical care, spoke to nephrology, spoke to nursing staff spoke to patient, spoke to family, plan on dialysis continue antibiotics, continue mobility PT OT, consult dietary, adequate nutrition, Attestations 2 Medical Necessity Statement*: Patient requires hospitalization for respiratory failure secondary fluid overload requiring dialysis, concerns for pneumonia, concerns for UTI, deconditioning protein, malnutrition physical deconditioning Diagnoses Exertional dyspnea R06.09 SVT (supraventricular tachycardia) I47.1 Pleural effusion, right J90 Stage 5 chronic kidney disease on chronic dialysis N18.6; Z99.2 Chronic kidney disease stage: on chronic dialysis Acute cystitis without hematuria N30.00 Urinary tract infection type: acute cystitis Hematuria presence: without hematuria Atherosclerosis of [place] coronary artery of [place] heart without angina pectoris I25.10 Coronary Disease-Associated Artery/Lesion type: [place] artery [place] vs. transplanted heart: [place] heart Associated angina: without angina Acquired hypothyroidism E03.9 Hypothyroidism type: acquired Diabetes mellitus with peripheral vascular disease E11.51 Chronic ulcer of toe of right foot with fat layer exposed L97.512 Pressure injury of sacral region, unstageable L89.150 Panic attacks F41.0 Acute hypoxic respiratory failure J96.01 Physical deconditioning R53.81 Protein calorie malnutrition E46
[2023-10-07] MEDS: acetaminophen 325 mg Tablet 650 MG PO ×2 (15:21→22:48)
[2023-10-07 17:07] LABS: Glucose Point of Care 178 mg/dL (70-110)
[2023-10-07] MEDS: docusate sodium 10 mg/mL (5ml) Liq 100 MG PO (18:01)
--- NOTE | 2023-10-07 20:34 | P.PN_ITS ---
Subjective 2 Subjective: Patient was seen this morning, is at bedside, Patient reported his breathing as significantly improved after thoracentesis and hemodialysis yesterday evening. He is requiring low-dose pressor post dialysis Labs and imaging reviewed Medications: Reviewed: Yes Vitals/I&O/Wt Last Vital Signs Temp 98 F 10/07/23 16:00 Pulse 87 10/07/23 20:00 Resp 17 10/07/23 18:00 BP 140/57 10/07/23 18:00 Pulse Ox 99 10/07/23 20:00 O2 Del Method Nasal Cannula 10/07/23 06:00 O2 Flow Rate 3 10/07/23 06:00 FiO2 35 10/07/23 20:00 10/07/23 10/07/23 10/07/23 06:59 14:59 22:59 Intake Total 50 / 1340 450 / 450 1000 / 1450 Output Total 450 / 4850 200 / 200 Balance -400 / -3510 450 / 450 800 / 1250 Weight last 48 hrs Weight 189 lb 9.6 oz Weight 189 lb 9.6 oz Weight 178 lb 9.191 oz Weight 188 lb 1.6 oz Weight 207 lb Physical Exam 2 Narrative: General: alert, NAD HEENT: conj clear, EOMI, PERRL, mmm, Neck: supple, no meningismus Heme: no cervical LAP Respiratory: Inspection: No visible deformity of the chest wall Palpation: Trachea is mildly deviated to the right, bilateral symmetric expansion Percussion: Improved dullness to percussion on right lower lung zone Auscultation: Improved breath sounds on right lower lung zone Cardiovascular: rrr, nl s1s2, no mrg Abdomen: soft, nt, nd, no r/g, bs+ Extremities: pulses +, 1+ pitting pedal edema, no c/c : no CVA tenderness Skin: intact, no rash MSK: no back or neck pain Neurologic: grossly intact Urinary Catheter Management: Kincaid: Cath Placed During This Visit: yes Reason for Continuing Indwelling Catheter: Chronic Indwelling Urinary Catheter on Admission Urinary Catheter Date of Insertion: 10/06/23 Urinary Catheter Time of Insertion: 14:22 Data 10/08/23 04:59 10/08/23 04:59 Other Labs: Radiology Impressions Chest X-Ray 10/08/23 07:00 IMPRESSION: Increasing infiltrates bilaterally. Laboratory Results WBC 9.83 10^3/uL (3.29-11.43) 10/08/23 04:59 RBC 3.38 10^6/uL (3.85-5.65) L 10/08/23 04:59 Hgb 9.90 g/dL (11.27-16.99) L 10/08/23 04:59 Hct 34.3 % (37-53) L 10/08/23 04:59 MCV 101.5 fl (82-101) H 10/08/23 04:59 MCH 29.3 pg (27-33) 10/08/23 04:59 MCHC 28.9 g/dL (30-55) L 10/08/23 04:59 RDW 14.6 % (12.1-15.1) 10/08/23 04:59 Plt Count 255 10^3/cmm (157-399) 10/08/23 04:59 MPV 9.0 fL (7.4-10.4) 10/08/23 04:59 Neut % (Auto) 45.6 % 10/08/23 04:59 Lymph % (Auto) 41.6 % 10/08/23 04:59 [place] % (Auto) 5.4 % 10/08/23 04:59 Eos % (Auto) 6.0 % 10/08/23 04:59 Baso % (Auto) 1.2 % 10/08/23 04:59 Neut # (Auto) 4.48 10^3/uL (1.8-7.7) 10/08/23 04:59 Lymph # (Auto) 4.1 10^3/uL (0.8-4.8) 10/08/23 04:59 [place] # (Auto) 0.5 10^3/uL (0.2-0.9) 10/08/23 04:59 Eos # (Auto) 0.6 10^3/uL (0.0-0.8) 10/08/23 04:59 Baso # (Auto) 0.1 10^3/uL (0.0-0.1) 10/08/23 04:59 Nucleated RBC % (auto) 0 % 10/08/23 04:59 Nucleated RBCs # 0.0 /100WBC 10/08/23 04:59 Differential Comment Yes 10/06/23 17:45 PT 12.80 SECONDS (12.1-14.9) 10/07/23 03:38 INR 0.93 (0.8-1.2) 10/07/23 03:38 APTT 23.3 SECONDS (23.9-36.7) L 10/07/23 03:38 Specimen Type Arterial 10/07/23 04:05 Sample Site Brachial, right 10/07/23 04:05 ABG pH 7.38 (7.35-7.45) 10/07/23 04:05 ABG pCO2 52.9 mmHg (35-45) H 10/07/23 04:05 ABG pO2 129.0 mmHg (80.0-100.0) H 10/07/23 04:05 ABG PO2/FiO2 Ratio 0 10/07/23 04:05 ABG HCO3 31.3 mmol/L (22-26) H 10/07/23 04:05 ABG O2 Saturation 100.0 10/06/23 11:27 ABG Base Excess 5.2 mmol/L (-2.0-2.0) H 10/07/23 04:05 Peter Test N/a 10/07/23 04:05 A-a O2 Gradient 55.6 mmHg (5-10) H 10/06/23 11:27 Hematocrit 31.3 % (42-52) L 10/07/23 04:05 Hgb O2 Saturation 98.5 % (95-100) 10/06/23 11:27 Carboxyhemoglobin 0.9 %THgb (0.4-20.1) 10/06/23 11:27 Methemoglobin 0.6 % (0.4-1.5) 10/06/23 11:27 Total Hemoglobin 11.2 g/dL (14-18) L 10/06/23 11:27 Sodium 138.0 mmol/L (131-143) 10/06/23 11:27 Potassium 4.4 mmol/L (3.5-5.0) 10/06/23 11:27 Glucose 138.0 mg/dL (70-115) H 10/06/23 11:27 Ionized Calcium 1.2 mmol/L (1.1-1.4) 10/06/23 11:27 O2 Delivery Device Bipap 10/07/23 04:05 O2 Liters/Min 15.0 % 03/04/24 11:27 FiO2 35.0 % 10/07/23 04:05 Tidal Volume 0.50 10/07/23 04:05 Medical Supply Technician ID [email or web address] 10/07/23 04:05 Sodium 139 mmol/L (136-145) 10/08/23 04:59 Potassium 4.9 mmol/L (3.5-5.1) 10/08/23 04:59 Chloride 99 mmol/L (98-107) 10/08/23 04:59 Carbon Dioxide 29 mmol/L (22-29) 10/08/23 04:59 Anion Gap 15.9 (5-19) 10/08/23 04:59 BUN 39 mg/dL (8-23) H 10/08/23 04:59 Creatinine 3.9 mg/dL (0.7-1.2) H 10/08/23 04:59 GFR Calculation Not Reportable 10/08/23 04:59 Glucose 201 mg/dL (65-115) H 10/08/23 04:59 POC Glucose 216 mg/dL (70-110) H 10/08/23 21:09 Calculated Osmolality 303 mOsm/kg (285-295) H 10/08/23 04:59 Lactic Acid 1.0 mmol/L (0.5-2.2) 10/06/23 11:21 Calcium 7.8 mg/dL (8.5-10.5) L 10/08/23 04:59 Phosphorus 5.3 mg/dL (2.5-4.5) H 10/08/23 04:59 Magnesium 2.0 mg/dL (1.7-2.3) 10/08/23 04:59 Total Bilirubin 0.2 mg/dL (0.15-1.2) 10/08/23 04:59 AST 10 U/L (0-40) 10/08/23 04:59 ALT 8 U/L (0-41) 10/08/23 04:59 Alkaline Phosphatase 88 U/L (40-130) 10/08/23 04:59 Troponin T Baseline 340 ng/L (0-15) H* 10/06/23 11:21 Troponin T 120 Minute 336.6 ng/L (0-15) H 10/06/23 13:21 Delta Troponin T -3.4 ABS# (0-10) L 10/06/23 13:21 Troponin T Hi Sens 6Hr 270.5 ng/L (0-15) H 10/06/23 18:18 Troponin T Hi Sens 6Hr Delta -69.5 ng/L (0-12) L 10/06/23 18:18 C-Reactive Protein 16.7 mg/L (0.0-4.9) H 10/08/23 04:59 NT-Pro-B Natriuret Pep 20749 pg/mL (0-125) H 10/08/23 04:59 Total Protein 4.9 g/dL (6.6-8.7) L 10/08/23 04:59 Albumin 3.2 g/dL (3.5-5.2) L 10/08/23 04:59 Globulin 1.7 g/dL (1.3-4.6) 10/08/23 04:59 Procalcitonin 0.38 ng/mL (0-0.5) 10/08/23 04:59 Urine Color Yellow (Yellow) 10/06/23 14:15 Urine Appearance Sl cloudy (CLEAR) A 10/06/23 14:15 Urine pH 5 (5-7) 10/06/23 14:15 Ur Specific [place] 1.010 (1.005-1.030) 10/06/23 14:15 Urine Protein 2+ (Negative) H 10/06/23 14:15 Urine Glucose (UA) Norm (Normal) 10/06/23 14:15 Urine Ketones Negative (Negative) 10/06/23 14:15 Urine Blood 3+ (Negative) H 10/06/23 14:15 Urine Nitrate Negative (Negative) 10/06/23 14:15 Urine Bilirubin Neg (Negative) 10/06/23 14:15 Urine Urobilinogen Norm mg/dL (Negative) 10/06/23 14:15 Ur Leukocyte Esterase 2+ (Negative) H 10/06/23 14:15 Urine RBC 0-4 /hpf (0-2) H 10/06/23 14:15 Urine WBC 55-80 /hpf (0-5) H 10/06/23 14:15 Ur Squamous Epith Cells 0-4 /hpf (0-5) H 10/06/23 14:15 Amorphous Sediment Not Reportable 10/06/23 14:15 Urine Bacteria Trace /hpf (NONE) 10/06/23 14:15 Fluid Color Yellow 10/06/23 17:45 Fluid Appearance Clear 10/06/23 17:45 Fluid Specific Grav 1.010 10/06/23 17:45 Fluid pH 9.0 10/06/23 17:45 Fluid WBC 84 /uL 10/06/23 17:45 Fluid RBC 0 10^3/uL 10/06/23 17:45 Fld Polynuclear WBCs # 0.007 10/06/23 17:45 Fld Polynuclear WBCs % 8.300 % 10/06/23 17:45 Fl Mononucl WBCs #(Auto) 0.077 10/06/23 17:45 Fl Mononuclear % Auto 91.700 % 10/06/23 17:45 Fld Crystal Laterality Right pleural fluid 10/06/23 17:45 Fluid Glucose 143.0 mg/dL 10/06/23 17:45 Fluid Albumin 2.3 g/dL 10/06/23 17:45 Fluid LDH 99 U/L 10/06/23 17:45 Fluid Amylase 8 U/L 10/06/23 17:45 Fluid Alk Phosphatase 11 IU/L 10/06/23 17:45 Fluid Cholesterol 56 mg/dL (0-200) 10/06/23 17:45 Fluid Triglycerides 23 mg/dL (0-150) 10/06/23 17:45 Fluid Uric Acid 4 mg/dL 10/06/23 17:45 Pleural Total Protein 3.2 g/dL 10/06/23 17:45 Coronavirus 229E (PCR) Not detected (NOT DETECT) 10/06/23 12:05 Hep Bs Antigen Non-reactive (Nonreactive) 10/06/23 11:21 Hep Bs Antibody < 3.5 (11.5-1000) L 10/06/23 11:21 Hep B Core Total Ab Non-reactive (Nonreactive) 10/06/23 11:21 Influenza Type A Ag Negative (Negative) 10/06/23 12:05 Influenza Type B Ag Negative (Negative) 10/06/23 12:05 SARS-CoV-2 (PCR) Not detected (NOT DETECT) 10/06/23 12:05 Micro: Microbiology 10/06/23 12:14 Blood Culture - Preliminary Blood NEGATIVE TO DATE 10/06/23 12:11 Blood Culture - Preliminary Blood NEGATIVE TO DATE 10/06/23 17:45 Gram Stain - Final Pleural Fluid Body Fluid Culture - Preliminary A&P Assessment and plan (1) Pleural effusion, right: (2) Acute hypoxic respiratory failure: (3) End-stage renal disease on hemodialysis: Plan # Acute hypoxic respiratory failure secondary to fluid overload-causing large right pleural effusion and patient with underlying ESRD dependent on hemodialysis and recent three-vessel CAD s/p 3 stents -Performed therapeutic thoracentesis-drained 1100 cc fluid and patient started complaining of chest discomfort and so aborted procedure; At this point of time-there is residual right pleural effusion which should be taken care with hemodialysis. -Fluid is exudative with pleural/serum protein ratio > 0.5; glucose 143-this is not suggestive of empyema or parapneumonic effusion;-however cultures are pending-patient is on meropenem -His last hemodialysis 2 days ago-patient to get his hemodialysis shortly as per renal team -Patient is on aspirin/clopidogrel/metoprolol for underlying CAD # Rest of the comorbidities managed as per primary team patient chest x-ray postthoracentesis has significantly improved-recommended to do hemodialysis with goal to remove excess fluid depending on hemodynamic stability I am signing off at this point of time and please reconsult if necessary Attestations 2 Medical Necessity Statement*: Deferred to hospitalist Critical Care Time: The high probability of a clinically significant, sudden or life threatening deterioration of the patient's [pulmonary, renal, cardiac] system(s) required my full and direct attention, intervention and personal management. The critical care time is as shown. This time is in addition to time spent performing any reported procedures but includes the following: [x] Data and vital sign review and interpretation [x] Patient assessment, examination and intervention [x] Documentation [x] Medication orders and management Critical Care Time (min): 43 Coding Level of Care Code Acute Code for [facility] Fwd Diagnoses Pleural effusion, right J90 Acute hypoxic respiratory failure J96.01 End-stage renal disease on hemodialysis N18.6; Z99.2 Time Spent (min) 43
[2023-10-07] MEDS: clopidogrel 75 mg Tablet PO (21:03)
[2023-10-07] MEDS: aspirin 81 mg EC Tablet PO (21:03)
[2023-10-07 21:10] LABS: Glucose Point of Care 206 mg/dL (70-110)
[2023-10-08] VITALS (28 sets, daily range): BP systolic 96–158; BP diastolic 44–80; PULSE 78–101; RESP 3–33; TEMP 36.4–36.6; O2SAT 97–100
[2023-10-08] MEDS: meropenem 500 MG in sodium chloride 0.9% (plus) 50 ML 100 MG IV ×2 (00:56→13:00)
[2023-10-08 05:17] LABS: Basophils # 0.1 10^3/uL (0.0-0.1); Basophils % 1.2 %; Eosinophils # 0.6 10^3/uL (0.0-0.8); Hematocrit 34.3 % (37-53); Lymphocytes # 4.1 10^3/uL (0.8-4.8); Lymphocytes % 41.6 %; Mean Corpuscular HGB Conc 28.9 g/dL (30-55); Mean Corpuscular Hemoglobin 29.3 pg (27-33); Mean Corpuscular Volume 101.5 fl (82-101); Monocytes # 0.5 10^3/uL (0.2-0.9); Monocytes % 5.4 %; Neutrophils # 4.48 10^3/uL (1.8-7.7); Neutrophils % 45.6 %; Nucleated Red Blood Cells % 0 %; Platelet Count 255 10^3/cmm (157-399); Red Blood Count 3.38 10^6/uL (3.85-5.65); Red Cell Distribution Width 14.6 % (12.1-15.1); White Blood Count 9.83 10^3/uL (3.29-11.43)
[2023-10-08 05:53] LABS: Alanine Aminotransferase 8 U/L (0-41); Albumin Level 3.2 g/dL (3.5-5.2); Alkaline Phosphatase 88 U/L (40-130); Anion Gap 15.9 (5-19); Aspartate Amino Transferase 10 U/L (0-40); Blood Urea Nitrogen 39 mg/dL (8-23); C Reactive Protein 16.7 mg/L (0.0-4.9); Calcium 7.8 mg/dL (8.5-10.5); Carbon Dioxide 29 mmol/L (22-29); Chloride 99 mmol/L (98-107); Creatinine Clr Calc Pharmacy 19.2159; Globulin 1.7 g/dL (1.3-4.6); Glucose 201 mg/dL (65-115); Osmolality Calculated 303 mOsm/kg (285-295); Phosphorus 5.3 mg/dL (2.5-4.5); Potassium 4.9 mmol/L (3.5-5.1); Sodium 139 mmol/L (136-145); Total Bilirubin 0.2 mg/dL (0.15-1.2); Total Protein 4.9 g/dL (6.6-8.7)
[2023-10-08 05:54] LABS: Procalcitonin 0.38 ng/mL (0-0.5)
[2023-10-08] MEDS: heparin 5,000 unit/mL INJ 1 mL 5000 UNIT SUBCUT ×2 (05:56→17:46)
[2023-10-08] MEDS: levothyroxine 150 mcg Tablet PO (05:56)
[2023-10-08 06:13] LABS: Slide Review Slide Review Perform
[2023-10-08 06:17] LABS: NT Pro B Type Natriuretic Pept 37675 pg/mL (0-125)
--- NOTE | 2023-10-08 07:00 | XRR_ITS ---
PROCEDURE INFORMATION: Exam: XR Chest Exam date and time: 10/08/2023 6:21 AM Age: 73 years old Clinical indication: Shortness of breath; Prior surgery; Surgery date: 6+ months; Surgery type: Dialysis cath; Additional info: SOB TECHNIQUE: Imaging protocol: Radiologic exam of the chest. Views: 1 view. COMPARISON: CR XR chest 1V portable [id number] 10/07/2023 4:04 AM FINDINGS: Tubes, catheters and devices: Multi lumen catheter unchanged. Lungs: Bilateral lower lobe opacities have increased on each side particularly on the right. There is an increasing right effusion and there is increasing bilateral lower lobe infiltrates. Pleural spaces: Unremarkable. No pleural effusion. No pneumothorax. Heart/Mediastinum: No change in the heart or mediastinum. Bones/joints: Unremarkable. XR/XR chest 1V portable [id number] IMPRESSION: Increasing infiltrates bilaterally.
[2023-10-08] MEDS: insulin lispro 100 unit/1 mL SUBCUT ×4 (07:26→21:20)
[2023-10-08] MEDS: albumin 12.5 GM/50 ML VIAL IV ×2 (07:26→07:46)
[2023-10-08] MEDS: insulin glargine 100 units/1 mL 8 UNIT SUBCUT (07:28)
[2023-10-08 07:34] LABS: Glucose Point of Care 208 mg/dL (70-110)
--- NOTE | 2023-10-08 07:52 | PC.HD ---
Per mud boss's orders from 10/06 (which were discontinued), heparin 1000 units loading dose administered via HD catheter at 0730 prior to HD treatment initiation. 10/06's HD treatment was cancelled due to patient's low bp, but dressing was changed. Therefore, it was not changed today. Albumin initiated at treatment start.
[2023-10-08] MEDS: pantoprazole DR 40 mg Tablet PO (10:53)
[2023-10-08] MEDS: docusate sodium 10 mg/mL (5ml) Liq 100 MG PO ×2 (10:54→17:46)
--- NOTE | 2023-10-08 11:12 | P.PN_ITS ---
Subjective 2 Subjective: getting hD Medications: Reviewed: Yes Vitals/I&O/Wt Last Vital Signs Temp 97.9 F 10/08/23 07:50 Pulse 92 10/08/23 11:00 Resp 19 H 10/08/23 11:00 BP 122/56 10/08/23 11:00 Pulse Ox 99 10/08/23 11:00 O2 Del Method Nasal Cannula 10/08/23 11:00 O2 Flow Rate 3 10/08/23 11:00 FiO2 35 10/08/23 04:00 10/07/23 10/08/23 10/08/23 22:59 06:59 14:59 Intake Total 1054.625 / 1504.625 39.250 / 1543.875 131.125 / 131.125 Output Total 200 / 200 50 / 250 Balance 854.625 / 1304.625 -10.750 / 1293.875 131.125 / 131.125 Weight last 48 hrs Weight 87.09 kg Weight 87.09 kg Weight 86.001 kg Weight 86.001 kg Weight 81 kg Weight 85.321 kg Weight 93.894 kg Physical Exam 2 Narrative: awake , alert no distress + edema Urinary Catheter Management: Kincaid: Cath Placed During This Visit: yes Reason for Continuing Indwelling Catheter: Accurate Measurement of Urinary Output in Critically Ill Patients Urinary Catheter Date of Insertion: 10/06/23 Urinary Catheter Time of Insertion: 14:22 Data 10/08/23 04:59 10/08/23 04:59 Micro: Microbiology 10/06/23 17:45 Gram Stain - Final Pleural Fluid Body Fluid Culture - Preliminary 10/06/23 14:15 Urine Culture - Preliminary Urine,Clean Catch Yeast species 10/06/23 12:14 Blood Culture - Preliminary Blood NEGATIVE TO DATE 10/06/23 12:11 Blood Culture - Preliminary Blood NEGATIVE TO DATE A&P Assessment and plan (1) End-stage renal disease on hemodialysis: Plan 1. End-stage renal disease: On TTS schedule as outpatient but patient presented with volume overload and respiratory distress HD today 2. Large right pleural effusion S/P thoracentesis 3. Hypertension: Restart home meds 4. History of coronary artery disease and stents 5. History of atrial fibrillation 6. Anemia hemoglobin at goal Patient evaluated using audiovisual cart. Time spent 20 minutes. Attestations 2 Medical Necessity Statement*: per mediicje Coding Level of Care Code Acute Code for [facility] Fwd Diagnoses End-stage renal disease on hemodialysis N18.6; Z99.2
--- NOTE | 2023-10-08 11:33 | PC.NURSE ---
BSG per patient monitor is 144.
--- NOTE | 2023-10-08 12:40 | PC.SOCIAL ---
Pg 2 IMM Explained to pt & Pg 2 IMM. No questions voiced. Provided pt a copy. Initialed, dated, & timed a copy & placed in chart.
--- NOTE | 2023-10-08 12:43 | P.PN_ITS ---
Subjective 2 Subjective: Patient was seen this morning, is at bedside, currently receiving dialysis, yesterday after dialysis patient required Levophed currently remains on Levophed to maintain MAP greater than 65, he is alert oriented x 3, following all commands, denies any fevers, chills he shortness of breath has improved, we discussed his fluid overload requiring dialysis ,due to his hypotension with his dialysis, and fluid shifts, he is requiring pressors, which we will continue, hopefully wean off, will require inpatient and icu monitoring, had extensive discussion with patient and his , he voiced understanding, all consents recommended to proceed Vitals/I&O/Wt Last Vital Signs Temp 97.5 F L 10/08/23 12:35 Pulse 92 10/08/23 12:35 Resp 24 H 10/08/23 12:35 BP 127/59 10/08/23 12:35 Pulse Ox 99 10/08/23 11:00 O2 Del Method Nasal Cannula 10/08/23 11:00 O2 Flow Rate 3 10/08/23 11:00 FiO2 35 10/08/23 04:00 10/07/23 10/08/23 10/08/23 22:59 06:59 14:59 Intake Total 1054.625 / 1504.625 39.250 / 1543.875 671.125 / 671.125 Output Total 200 / 200 50 / 250 2800 / 2800 Balance 854.625 / 1304.625 -10.750 / 1293.875 -2128.875 / -2128.875 Weight last 48 hrs Weight 90 kg Weight 87.09 kg Weight 87.09 kg Weight 86.001 kg Weight 86.001 kg Weight 81 kg Weight 85.321 kg Physical Exam 2 Const: COMMON NORMALS: no acute distress and patient oriented x3 Resp: COMMON NORMALS: normal respiratory effort, No retractions, No use of accessory muscles and clear to auscultation bilaterally AUSCULTATION: clear to auscultation bilaterally Cardio: COMMON NORMALS: regular rate, regular rhythm, S1 normal heart sound present and S2 normal heart sound present RATE: regular rate RHYTHM: r egular rhythm HEART SOUNDS: S1 normal heart sound present and S2 normal heart sound present GI: COMMON NORMALS: Normal to inspection, nondistended, normoactive bowel sounds present and non-tender Extremity: COMMON NORMALS: no pedal edema Neuro: COMMON NORMALS: patient oriented x3 Psych: COMMON NORMALS: mental status grossly normal Urinary Catheter Management: Kincaid: Cath Placed During This Visit: yes Reason for Continuing Indwelling Catheter: Accurate Measurement of Urinary Output in Critically Ill Patients Urinary Catheter Date of Insertion: 10/06/23 Urinary Catheter Time of Insertion: 14:22 Data 10/08/23 04:59 10/08/23 04:59 Micro: Microbiology 10/06/23 17:45 Gram Stain - Final Pleural Fluid Body Fluid Culture - Preliminary 10/06/23 14:15 Urine Culture - Preliminary Urine,Clean Catch Yeast species 10/06/23 12:14 Blood Culture - Preliminary Blood NEGATIVE TO DATE 10/06/23 12:11 Blood Culture - Preliminary Blood NEGATIVE TO DATE A&P Assessment and plan (1) Exertional dyspnea: (2) SVT (supraventricular tachycardia): Somewhat sudden onset today. I suspect it is related to #1 secondary to #3 and its impact on respiratory status. He received his usual metoprolol dosing, antibiotics and 1 dose of Lasix with clinical improvement. Has a history of atrial fibrillation with rapid ventricular response/atrial flutter during a prior hospital stay. Not on chronic anticoagulation due to concern about bleeding risk. Is on antiplatelet therapy with aspirin and Plavix. (3) Pleural effusion, right: (4) CKD (chronic kidney disease): Qualifiers: Chronic kidney disease stage: on chronic dialysis Qualified Code(s): N 18.6 - End stage renal disease; Z99.2 - Dependence on renal dialysis (5) UTI (urinary tract infection): Present on admission. No reported dysuria but has had increased sediment and cloudiness noted at home. Qualifiers: Urinary tract infection type: acute cystitis Hematuria presence: w [facility] hematuria Qualified Code(s): N30.00 - Acute cystitis without hematuria (6) Atherosclerosis of coronary artery: Status post RCA stent x 3 in August of this year. Initial troponin 340. 2- hour troponin 336. Unknown baseline after prolonged hospital stay in August of this year when he had the cardiac intervention. No report of chest pain, primarily shortness of breath with palpitations and some transient lightheadedness. Cannot currently rule out a type II process but I suspect he has a baseline significant elevation in troponin currently. On chronic aspirin and Plavix along with beta-blockade. Intolerant of statin therapy. Has as needed nitroglycerin at home. Qualifiers: Coronary Disease-Associated Artery/Lesion type: [place] artery [place] vs. transplanted heart: [place] heart Associated angina: without angina Qualified Code(s): I25.10 - Atherosclerotic heart disease of [place] coronary artery without angina pectoris (7) Hypothyroidism: Suboptimally controlled with most recent TSH at 92. Dosing of levothyroxine was adjusted. Qualifiers: Hypothyroidism type: acquired Qualified Code(s): E03.9 - Hypothyroidism, unspecified (8) Diabetes mellitus with peripheral vascular disease: Insulin requiring. On both long and short acting insulin. (9) Chronic ulcer of toe of right foot with fat layer exposed: Follows with Dr. Baird (10) Pressure injury of sacral region, unstageable: Has regular wound care, currently receiving Santyl with dressing changes daily (11) Panic attacks: And difficulty sleeping. Has been tried on multiple medications none with any significant success. Hesitant to try new medications as he does not tolerate medicines the same way others do. Currently manageable. (12) Acute hypoxic respiratory failure: (13) Physical deconditioning: (14) Protein calorie malnutrition: Plan Acute hypoxic respiratory failure ? Secondary to fluid overload, end-stage renal disease, systolic and diastolic CHF exacerbation ? Plan ? Continue inpatient dialysis -requiring levophed due to hypotension ? Continue meropenem ? Follow blood cultures, follow respiratory viral panel ? Will monitor fluid status closely, next?monitor creatinine monitor electrolytes Systolic CHF, ischemic cardiomyopathy ? As above Right pleural effusion ? Status post thoracocentesis , 900 cc removed ?appears transudative ? Follow-up culture studies End-stage renal disease on dialysis ? Continue dialysis send ?currently requiring Levophed during dialysis History of COVID-19, prolonged intubation, prolonged hospitalization, ? Monitor History of CAD status post stenting x 3 Continue aspirin, Plavix Low blood pressure ? Likely requiring during dialysis Concerns for pneumonia ? CT of the chest showed right upper lobe groundglass infiltrates, with subsegmental atelectasis left lower lobe left pleural effusion ? 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 Consult dietary ? Continue protein shakes Type 2 diabetes mellitus, ? Continue insulin sliding scale Right lower extremity UTI, continue meropenem SVT ? Continue to monitor Sacral decubitus ulcer, DTI ? Continue offloading no ? Wound care Chronic ulcer of toe right foot ? Monitor VTE prophylaxis: Subcu heparin GI Prophylaxis: PPI Antibiotics: Status post 1 dose of vancomycin /, meropenem initiated 3/ Pending studies: Blood and urine cultures, thoracentesis, sputum pending collection Telemetry: Ordered secondary to arrhythmia at presentation Kincaid: Ordered secondary to need to monitor urine output and overall volume status closely Line(s): peripheral IVs, right upper chest dialysis catheter. I will note patient had a PICC line removed in September. Disposition plan: Currently anticipate discharge back home with home health care to include ongoing wound care, medication assistance, PT and OT. Followed by a [facility] home health care who sent him to the hospital today Code Status: Full Code Plan for today, continue Levophed, plan on weaning off, receiving dialysis continue antibiotics, monitor for fluid overload requiring ICU level monitoring, due to hypotension with dialysis requiring IV pressors Attestations 2 Medical Necessity Statement*: Patient requires hospitalization for acute hypoxic respiratory failure fluid overload requiring IV dialysis hypotension requiring pressors Levophed, spoke to patient, spoke to at bedside, spoke to pulmonary, spoke to nursing staff Diagnoses Exertional dyspnea R06.09 SVT (supraventricular tachycardia) I47.1 Pleural effusion, right J90 Stage 5 chronic kidney disease on chronic dialysis N18.6; Z99.2 Chronic kidney disease stage: on chronic dialysis Acute cystitis without hematuria N30.00 Urinary tract infection type: acute cystitis Hematuria presence: without hematuria Atherosclerosis of [place] coronary artery of [place] heart without angina pectoris I25.10 Coronary Disease-Associated Artery/Lesion type: [place] artery [place] vs. transplanted heart: [place] heart Associated angina: without angina Acquired hypothyroidism E03.9 Hypothyroidism type: acquired Diabetes mellitus with peripheral vascular disease E11.51 Chronic ulcer of toe of right foot with fat layer exposed L97.512 Pressure injury of sacral region, unstageable L89.150 Panic attacks F41.0 Acute hypoxic respiratory failure J96.01 Physical deconditioning R53.81 Protein calorie malnutrition E46
[2023-10-08] MEDS: collagenase oint 30 gm 1 APPLIC TOPICAL (13:00)
[2023-10-08] MEDS: acetaminophen 325 mg Tablet 650 MG PO ×2 (15:03→21:20)
[2023-10-08 17:45] LABS: Glucose Point of Care 255 mg/dL (70-110)
[2023-10-08 21:14] LABS: Glucose Point of Care 216 mg/dL (70-110)
[2023-10-08] MEDS: aspirin 81 mg EC Tablet PO (21:20)
[2023-10-08] MEDS: clopidogrel 75 mg Tablet PO (21:20)
[2023-10-08] MEDS: zolpidem 5 mg Tablet PO (21:20)
[2023-10-09] VITALS (32 sets, daily range): BP systolic 80–148; BP diastolic 45–73; PULSE 87–98; RESP 4–43; TEMP 36.6–37.2; O2SAT 96–100
[2023-10-09] MEDS: meropenem 500 MG in sodium chloride 0.9% (plus) 50 ML 100 MG IV ×2 (01:18→12:39)
[2023-10-09 05:18] LABS: Basophils # 0.1 10^3/uL (0.0-0.1); Basophils % 1.1 %; Eosinophils # 0.5 10^3/uL (0.0-0.8); Eosinophils % 6.1 %; Hematocrit 33.7 % (37-53); Lymphocytes # 3.5 10^3/uL (0.8-4.8); Mean Corpuscular HGB Conc 29.1 g/dL (30-55); Mean Corpuscular Hemoglobin 29.1 pg (27-33); Mean Platelet Volume 9.4 fL (7.4-10.4); Monocytes # 0.6 10^3/uL (0.2-0.9); Monocytes % 6.7 %; Neutrophils # 3.84 10^3/uL (1.8-7.7); Neutrophils % 44.9 %; Nucleated Red Blood Cells % 0 %; Platelet Count 229 10^3/cmm (157-399); Red Blood Count 3.37 10^6/uL (3.85-5.65); Red Cell Distribution Width 14.5 % (12.1-15.1); White Blood Count 8.54 10^3/uL (3.29-11.43)
[2023-10-09] MEDS: heparin 5,000 unit/mL INJ 1 mL 5000 UNIT SUBCUT ×2 (05:39→17:42)
[2023-10-09] MEDS: levothyroxine 150 mcg Tablet PO (05:40)
[2023-10-09 05:49] LABS: Alanine Aminotransferase 7 U/L (0-41); Albumin Level 3.4 g/dL (3.5-5.2); Alkaline Phosphatase 72 U/L (40-130); Anion Gap 14.8 (5-19); Aspartate Amino Transferase 13 U/L (0-40); Blood Urea Nitrogen 28 mg/dL (8-23); C Reactive Protein 11.1 mg/L (0.0-4.9); Calcium 7.9 mg/dL (8.5-10.5); Carbon Dioxide 30 mmol/L (22-29); Chloride 97 mmol/L (98-107); Creatinine Clr Calc Pharmacy 26.3707; Globulin 1.6 g/dL (1.3-4.6); Glucose 119 mg/dL (65-115); Osmolality Calculated 291 mOsm/kg (285-295); Phosphorus 3.9 mg/dL (2.5-4.5); Potassium 4.8 mmol/L (3.5-5.1); Sodium 137 mmol/L (136-145); Total Bilirubin 0.2 mg/dL (0.15-1.2)
[2023-10-09 05:58] LABS: Procalcitonin 0.32 ng/mL (0-0.5)
[2023-10-09 06:20] LABS: NT Pro B Type Natriuretic Pept 31043 pg/mL (0-125)
[2023-10-09 08:23] LABS: Glucose Point of Care 146 mg/dL (70-110)
[2023-10-09] MEDS: pantoprazole DR 40 mg Tablet PO (08:31)
[2023-10-09] MEDS: insulin lispro 100 unit/1 mL SUBCUT ×3 (08:37→20:56)
[2023-10-09] MEDS: insulin glargine 100 units/1 mL 8 UNIT SUBCUT (08:39)
[2023-10-09] MEDS: acetaminophen 325 mg Tablet 650 MG PO ×2 (10:22→20:53)
[2023-10-09 11:14] LABS: Glucose Point of Care 134 mg/dL (70-110)
--- NOTE | 2023-10-09 14:16 | PM.PN ---
Subjective Subjective: Patient was seen this morning, he is alert to person, to place, not to time denies any shortness of breath, no chest pain, no palpitations, he received dialysis yesterday, Vitals/I&O/Wt Last Vital Signs Temp 97.9 F 10/09/23 06:00 Pulse 93 10/09/23 14:00 Resp 18 10/09/23 14:00 BP 117/57 10/09/23 14:00 Pulse Ox 100 10/09/23 14:00 O2 Del Method Nasal Cannula 10/09/23 08:15 O2 Flow Rate 2 10/09/23 08:15 FiO2 35 10/09/23 11:54 10/08/23 10/09/23 10/09/23 22:59 06:59 14:59 Intake Total 240 / 1201.125 50 / 1251.125 550 / 550 Output Total 100 / 2900 30 / 2930 Balance 140 / -1698.875 20 / -1678.875 550 / 550 Weight last 48 hrs Weight 88.451 kg Weight 88.451 kg Weight 90 kg Weight 87.09 kg Weight 87.09 kg Physical Exam Const: COMMON NORMALS: no acute distress and patient oriented x3 Resp: COMMON NORMALS: normal respiratory effort, No retractions, No use of accessory muscles and clear to auscultation bilaterally AUSCULTATION: clear to auscultation bilaterally Cardio: COMMON NORMALS: regular rate, regular rhythm, S1 normal heart sound present and S2 normal heart sound present RATE: regular rate RHYTHM: regular rhythm HEART SOUNDS: S1 normal heart sound present and S2 normal heart sound present GI: COMMON NORMALS: Normal to inspection, nondistended, normoactive bowel sounds present and non-tender Extremity: COMMON NORMALS: no pedal edema Neuro: COMMON NORMALS: patient oriented x3 Psych: COMMON NORMALS: mental status grossly normal Urinary Catheter Management: Kincaid: Cath Placed During This Visit: yes Reason for Continuing Indwelling Catheter: Accurate Measurement of Urinary Output in Critically Ill Patients Urinary Catheter Date of Insertion: 10/06/23 Urinary Catheter Time of Insertion: 14:22 Data 10/09/23 04:24 10/09/23 04:24 Micro: Microbiology 10/06/23 17:45 Gram Stain - Final Pleural Fluid Anaerobic Culture - Preliminary Body Fluid Culture - Final 10/06/23 17:45 Mycobacterial Smear - Preliminary Body Fluids - Pleura,Lt Lung 10/06/23 17:45 Fungal Smear - Preliminary Pleural Fluid 10/06/23 14:15 Urine Culture - Preliminary Urine,Clean Catch Yeast species A&P Assessment and plan (1) Exertional dyspnea: (2) SVT (supraventricular tachycardia): resolved I suspect it is related to #1 secondary to #3 and its impact on respiratory status. He received his usual metoprolol dosing, antibiotics and 1 dose of Lasix with clinical improvement. Has a history of atrial fibrillation with rapid ventricular response/atrial flutter during a prior hospital stay. Not on chronic anticoagulation due to concern about bleeding risk. Is on antiplatelet therapy with aspirin and Plavix. (3) Pleural effusion, right: (4) CKD (chronic kidney disease): Qualifiers: Chronic kidney disease stage: on chronic dialysis Qualified Code(s): N18.6 - End stage renal disease; Z99.2 - Dependence on renal dialysis (5) UTI (urinary tract infection): Present on admission. No reported dysuria but has had increased sediment and cloudiness noted at home. Qualifiers: Urinary tract infection type: acute cystitis Hematuria presence: without hematuria Qualified Code(s): N30.00 - Acute cystitis without hematuria (6) Atherosclerosis of coronary artery: Status post RCA stent x 3 in August of this year. Initial troponin 340. 2-hour troponin 336. Unknown baseline after prolonged hospital stay in August of this year when he had the cardiac intervention. No report of chest pain, primarily shortness of breath with palpitations and some transient lightheadedness. Cannot currently rule out a type II process but I suspect he has a baseline significant elevation in troponin currently. On chronic aspirin and Plavix along with beta-blockade. Intolerant of statin therapy. Has as needed nitroglycerin at home. Qualifiers: Coronary Disease-Associated Artery/Lesion type: [place] artery [place] vs. transplanted heart: [place] heart Associated angina: without angina Qualified Code(s): I25.10 - Atherosclerotic heart disease of [place] coronary artery without angina pectoris (7) Hypothyroidism: Suboptimally controlled with most recent TSH at 92. Dosing of levothyroxine was adjusted. Qualifiers: Hypothyroidism type: acquired Qualified Code(s): E03.9 - Hypothyroidism, unspecified (8) Diabetes mellitus with peripheral vascular disease: Insulin requiring. On both long and short acting insulin. (9) Chronic ulcer of toe of right foot with fat layer exposed: Follows with Dr. Baird (10) Pressure injury of sacral region, unstageable: Has regular wound care, currently receiving Santyl with dressing changes daily (11) Panic attacks: And difficulty sleeping. Has been tried on multiple medications none with any significant success. Hesitant to try new medications as he does not tolerate medicines the same way others do. Currently manageable. (12) Acute hypoxic respiratory failure: (13) Physical deconditioning: (14) Protein calorie malnutrition: Plan Acute hypoxic respiratory failure ? Secondary to fluid overload, end-stage renal disease, systolic and diastolic CHF exacerbation ? Plan ? Continue inpatient dialysis -requiring levophed due to hypotension ? Continue meropenem ? Follow blood cultures, follow respiratory viral panel ? Will monitor fluid status closely, next?monitor creatinine monitor electrolytes Systolic CHF, ischemic cardiomyopathy ? As above Right pleural effusion ? Status post thoracocentesis , 900 cc removed ?appears transudative ? Follow-up culture studies End-stage renal disease on dialysis ? Continue dialysis send ?currently requiring Levophed during dialysis History of COVID-19, prolonged intubation, prolonged hospitalization, ? Monitor History of CAD status post stenting x 3 Continue aspirin, Plavix Low blood pressure ? Likely requiring during dialysis Concerns for pneumonia ? CT of the chest showed right upper lobe groundglass infiltrates, with subsegmental atelectasis left lower lobe left pleural effusion ? 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 Consult dietary ? Continue protein shakes Type 2 diabetes mellitus, ? Continue insulin sliding scale Right lower extremity UTI, continue meropenem SVT ? Continue to monitor Sacral decubitus ulcer, DTI ? Continue offloading no ? Wound care Chronic ulcer of toe right foot ? Monitor VTE prophylaxis: Subcu heparin GI Prophylaxis: PPI Antibiotics: Status post 1 dose of vancomycin 3/4, meropenem initiated 3/4 Pending studies: Blood and urine cultures, thoracentesis, sputum pending collection Telemetry: Ordered secondary to arrhythmia at presentation Kincaid: Ordered secondary to need to monitor urine output and overall volume status closely Line(s): peripheral IVs, right upper chest dialysis catheter. I will note patient had a PICC line removed in September. Disposition plan: Currently anticipate discharge back home with home health care to include ongoing wound care, medication assistance, PT and OT. Followed by a [facility] care who sent him to the hospital today Code Status: Full Code Plan for today, continue Levophed, plan on weaning off, PT OT, continue antibiotics, Attestations Medical Necessity Statement*: Patient requires hospitalization, for acute hypoxic respiratory failure secondary to fluid overload, pneumonia requiring IV antibiotics and High MDM includes number and complexity of problems actively addressed during encounter, amount and/or complexity of data reviewed/ordered and described risk of complication, morbidity or mortality of management as documented Diagnoses Exertional dyspnea R06.09 SVT (supraventricular tachycardia) I47.1 Pleural effusion, right J90 Stage 5 chronic kidney disease on chronic dialysis N18.6; Z99.2 Chronic kidney disease stage: on chronic dialysis Acute cystitis without hematuria N30.00 Urinary tract infection type: acute cystitis Hematuria presence: without hematuria Atherosclerosis of [place] coronary artery of [place] heart without angina pectoris I25.10 Coronary Disease-Associated Artery/Lesion type: [place] artery [place] vs. transplanted heart: [place] heart Associated angina: without angina Acquired hypothyroidism E03.9 Hypothyroidism type: acquired Diabetes mellitus with peripheral vascular disease E11.51 Chronic ulcer of toe of right foot with fat layer exposed L97.512 Pressure injury of sacral region, unstageable L89.150 Panic attacks F41.0 Acute hypoxic respiratory failure J96.01 Physical deconditioning R53.81 Protein calorie malnutrition E46
--- NOTE | 2023-10-09 16:43 | P.PN_ITS ---
Subjective 2 Subjective: doing well on 3L NC Medications: Reviewed: Yes Vitals/I&O/Wt Last Vital Signs Temp 97.9 F 10/09/23 06:00 Pulse 93 10/09/23 14:00 Resp 18 10/09/23 14:00 BP 117/57 10/09/23 14:00 Pulse Ox 100 10/09/23 14:00 O2 Del Method Nasal Cannula 10/09/23 08:15 O2 Flow Rate 2 10/09/23 08:15 FiO2 35 10/09/23 11:54 10/09/23 10/09/23 10/09/23 06:59 14:59 22:59 Intake Total 50 / 1251.125 550 / 550 Output Total 30 / 2930 Balance 20 / -1678.875 550 / 550 Weight last 48 hrs Weight 88.451 kg Weight 88.451 kg Weight 90 kg Weight 87.09 kg Weight 87.09 kg Physical Exam 2 Narrative: awake , alert no distress + edema Urinary Catheter Management: Kincaid: Cath Placed During This Visit: yes Reason for Continuing Indwelling Catheter: Accurate Measurement of Urinary Output in Critically Ill Patients Urinary Catheter Date of Insertion: 10/06/23 Urinary Catheter Time of Insertion: 14:22 Data 10/09/23 04:24 10/09/23 04:24 Micro: Microbiology 10/06/23 17:45 Gram Stain - Final Pleural Fluid Anaerobic Culture - Preliminary Body Fluid Culture - Final 10/06/23 17:45 Mycobacterial Smear - Preliminary Body Fluids - Pleura,Lt Lung 10/06/23 17:45 Fungal Smear - Preliminary Pleural Fluid A&P Assessment and plan (1) End-stage renal disease on hemodialysis: Plan 1. End-stage renal disease: On TTS schedule as outpatient but patient presented with volume overload and respiratory distress HD [facility] 2. Large right pleural effusion S/P thoracentesis 3. Hypertension: Restart home meds 4. History of coronary artery disease and stents 5. History of atrial fibrillation 6. Anemia hemoglobin at goal Patient evaluated using audiovisual cart. Time spent 20 minutes. Attestations 2 Medical Necessity Statement*: PER [facility] Coding Level of Care Code Acute Code for Chg Fwd Diagnoses End-stage renal disease on hemodialysis N18.6; Z99.2
[2023-10-09 16:48] LABS: Glucose Point of Care 261 mg/dL (70-110)
[2023-10-09] MEDS: collagenase oint 30 gm 1 APPLIC TOPICAL (17:42)
[2023-10-09] MEDS: docusate sodium 10 mg/mL (5ml) Liq 100 MG PO (17:42)
[2023-10-09 20:31] LABS: Glucose Point of Care 201 mg/dL (70-110)
[2023-10-09] MEDS: clopidogrel 75 mg Tablet PO (20:55)
[2023-10-09] MEDS: zolpidem 5 mg Tablet PO (20:55)
[2023-10-09] MEDS: aspirin 81 mg EC Tablet PO (20:55)
[2023-10-10] VITALS (28 sets, daily range): BP systolic 106–143; BP diastolic 52–91; PULSE 87–100; RESP 13–33; TEMP 35.3–37; O2SAT 98–100
[2023-10-10] MEDS: meropenem 500 MG in sodium chloride 0.9% (plus) 50 ML 100 MG IV (01:29)
[2023-10-10 04:46] LABS: Basophils # 0.1 10^3/uL (0.0-0.1); Basophils % 0.9 %; Eosinophils # 0.5 10^3/uL (0.0-0.8); Eosinophils % 6.6 %; Hematocrit 32.8 % (37-53); Lymphocytes # 3.2 10^3/uL (0.8-4.8); Lymphocytes % 39.1 %; Mean Corpuscular Hemoglobin 28.8 pg (27-33); Mean Corpuscular Volume 99.4 fl (82-101); Mean Platelet Volume 9.1 fL (7.4-10.4); Monocytes # 0.6 10^3/uL (0.2-0.9); Monocytes % 7.4 %; Neutrophils # 3.73 10^3/uL (1.8-7.7); Neutrophils % 45.6 %; Nucleated Red Blood Cells % 0 %; Platelet Count 233 10^3/cmm (157-399); Red Cell Distribution Width 14.2 % (12.1-15.1); White Blood Count 8.16 10^3/uL (3.29-11.43)
[2023-10-10 05:13] LABS: Alanine Aminotransferase 6 U/L (0-41); Albumin Level 3.3 g/dL (3.5-5.2); Alkaline Phosphatase 78 U/L (40-130); Anion Gap 14.8 (5-19); Aspartate Amino Transferase 9 U/L (0-40); Blood Urea Nitrogen 43 mg/dL (8-23); C Reactive Protein 9.4 mg/L (0.0-4.9); Calcium 8.4 mg/dL (8.5-10.5); Carbon Dioxide 29 mmol/L (22-29); Chloride 97 mmol/L (98-107); Creatinine Clr Calc Pharmacy 19.9687; Globulin 2.2 g/dL (1.3-4.6); Glucose 129 mg/dL (65-115); Magnesium 2.1 mg/dL (1.7-2.3); Osmolality Calculated 295 mOsm/kg (285-295); Phosphorus 3.9 mg/dL (2.5-4.5); Potassium 4.8 mmol/L (3.5-5.1); Sodium 136 mmol/L (136-145); Total Bilirubin 0.2 mg/dL (0.15-1.2); Total Protein 5.5 g/dL (6.6-8.7)
[2023-10-10 05:15] LABS: Procalcitonin 0.31 ng/mL (0-0.5)
[2023-10-10] MEDS: acetaminophen 325 mg Tablet 650 MG PO ×3 (05:30→20:14)
[2023-10-10] MEDS: levothyroxine 150 mcg Tablet PO (05:32)
[2023-10-10] MEDS: heparin 5,000 unit/mL INJ 1 mL 5000 UNIT SUBCUT ×2 (05:32→18:11)
[2023-10-10 05:35] LABS: NT Pro B Type Natriuretic Pept 30884 pg/mL (0-125)
[2023-10-10 08:16] LABS: Glucose Point of Care 151 mg/dL (70-110)
--- NOTE | 2023-10-10 08:26 | P.PN_ITS ---
Subjective 2 Subjective: doing well Medications: Reviewed: Yes Vitals/I&O/Wt Last Vital Signs Temp 98.4 F 10/10/23 08:06 Pulse 96 10/10/23 08:06 Resp 24 H 10/10/23 08:06 BP 130/67 10/10/23 08:06 Pulse Ox 99 10/10/23 08:06 O2 Del Method BiPAP 10/10/23 08:06 O2 Flow Rate 3 10/10/23 06:00 FiO2 35 10/10/23 03:08 10/09/23 10/10/23 10/10/23 22:59 06:59 14:59 Intake Total 200 / 750 50 / 800 Output Total 100 / 100 16 / 116 Balance 100 / 650 34 / 684 Weight last 48 hrs Weight 91.626 kg Weight 88.451 kg Weight 88.451 kg Weight 90 kg Physical Exam 2 Narrative: awake , alert no distress + edema Urinary Catheter Management: Kincaid: Cath Placed During This Visit: yes Reason for Continuing Indwelling Catheter: Accurate Measurement of Urinary Output in Critically Ill Patients Urinary Catheter Date of Insertion: 10/06/23 Urinary Catheter Time of Insertion: 14:22 Data 10/10/23 04:16 10/10/23 04:16 Micro: Microbiology 10/06/23 17:45 Gram Stain - Final Pleural Fluid Anaerobic Culture - Preliminary Body Fluid Culture - Final A&P Assessment and plan (1) End-stage renal disease on hemodialysis: Plan 1. End-stage renal disease: On TTS schedule as outpatient but patient presented with volume overload and respiratory distress HD today 2. Large right pleural effusion S/P thoracentesis 3. Hypertension: Restart home meds 4. History of coronary artery disease and stents 5. History of atrial fibrillation 6. Anemia hemoglobin at goal Patient evaluated using audiovisual cart. Time spent 20 minutes. Attestations 2 Medical Necessity Statement*: per lucy Coding Level of Care Code Acute Code for Chg Fwd Diagnoses End-stage renal disease on hemodialysis N18.6; Z99.2
[2023-10-10] MEDS: insulin lispro 100 unit/1 mL SUBCUT ×2 (09:24→12:43)
[2023-10-10] MEDS: insulin glargine 100 units/1 mL 8 UNIT SUBCUT (09:26)
--- NOTE | 2023-10-10 11:46 | PM.PN ---
Vitals/I&O/Wt Last Vital Signs Temp 97.8 F 10/10/23 10:00 Pulse 95 10/10/23 10:02 Resp 20 H 10/10/23 10:00 BP 110/55 10/10/23 10:00 Pulse Ox 99 10/10/23 10:02 O2 Del Method BiPAP 10/10/23 10:00 O2 Flow Rate 3 10/10/23 06:00 FiO2 35 10/10/23 10:02 10/09/23 10/10/23 10/10/23 22:59 06:59 14:59 Intake Total 200 / 750 50 / 800 240 / 240 Output Total 100 / 100 16 / 116 Balance 100 / 650 34 / 684 240 / 240 Weight last 48 hrs Weight 91.626 kg Weight 88.451 kg Weight 88.451 kg Weight 90 kg Physical Exam Const: COMMON NORMALS: no acute distress and patient oriented x3 Resp: COMMON NORMALS: normal respiratory effort, No retractions, No use of accessory muscles and clear to auscultation bilaterally AUSCULTATION: clear to auscultation bilaterally Cardio: COMMON NORMALS: regular rate, regular rhythm, S1 normal heart sound present and S2 normal heart sound present RATE: regular rate RHYTHM: regular rhythm HEART SOUNDS: S1 normal heart sound present and S2 normal heart sound present GI: COMMON NORMALS: Normal to inspection, nondistended, normoactive bowel sounds present and non-tender Extremity: COMMON NORMALS: no pedal edema Neuro: COMMON NORMALS: patient oriented x3 Psych: COMMON NORMALS: mental status grossly normal Urinary Catheter Management: Kincaid: Cath Placed During This Visit: yes Reason for Continuing Indwelling Catheter: Accurate Measurement of Urinary Output in Critically Ill Patients Urinary Catheter Date of Insertion: 10/06/23 Urinary Catheter Time of Insertion: 14:22 Data 10/10/23 04:16 10/10/23 04:16 Micro: Microbiology 10/06/23 17:45 Gram Stain - Final Pleural Fluid Anaerobic Culture - Preliminary Body Fluid Culture - Final A&P Assessment and plan (1) Exertional dyspnea: (2) SVT (supraventricular tachycardia): resolved I suspect it is related to #1 secondary to #3 and its impact on respiratory status. He received his usual metoprolol dosing, antibiotics and 1 dose of Lasix with clinical improvement. Has a history of atrial fibrillation with rapid ventricular response/atrial flutter during a prior hospital stay. Not on chronic anticoagulation due to concern about bleeding risk. Is on antiplatelet therapy with aspirin and Plavix. (3) Pleural effusion, right: (4) CKD (chronic kidney disease): Qualifiers: Chronic kidney disease stage: on chronic dialysis Qualified Code(s): N18.6 - End stage renal disease; Z99.2 - Dependence on renal dialysis (5) UTI (urinary tract infection): Present on admission. No reported dysuria but has had increased sediment and cloudiness noted at home. Qualifiers: Urinary tract infection type: acute cystitis Hematuria presence: without hematuria Qualified Code(s): N30.00 - Acute cystitis without hematuria (6) Atherosclerosis of coronary artery: Status post RCA stent x 3 in August of this year. Initial troponin 340. 2-hour troponin 336. Unknown baseline after prolonged hospital stay in August of this year when he had the cardiac intervention. No report of chest pain, primarily shortness of breath with palpitations and some transient lightheadedness. Cannot currently rule out a type II process but I suspect he has a baseline significant elevation in troponin currently. On chronic aspirin and Plavix along with beta-blockade. Intolerant of statin therapy. Has as needed nitroglycerin at home. Qualifiers: Coronary Disease-Associated Artery/Lesion type: [place] artery [place] vs. transplanted heart: [place] heart Associated angina: without angina Qualified Code(s): I25.10 - Atherosclerotic heart disease of [place] coronary artery without angina pectoris (7) Hypothyroidism: Suboptimally controlled with most recent TSH at 92. Dosing of levothyroxine was adjusted. Qualifiers: Hypothyroidism type: acquired Qualified Code(s): E03.9 - Hypothyroidism, unspecified (8) Diabetes mellitus with peripheral vascular disease: Insulin requiring. On both long and short acting insulin. (9) Chronic ulcer of toe of right foot with fat layer exposed: Follows with Dr. Baird (10) Pressure injury of sacral region, unstageable: Has regular wound care, currently receiving Santyl with dressing changes daily (11) Panic attacks: And difficulty sleeping. Has been tried on multiple medications none with any significant success. Hesitant to try new medications as he does not tolerate medicines the same way others do. Currently manageable. (12) Acute hypoxic respiratory failure: (13) Physical deconditioning: (14) Protein calorie malnutrition: Plan Acute hypoxic respiratory failure ? Secondary to fluid overload, end-stage renal disease, systolic and diastolic CHF exacerbation ? Plan ? Continue inpatient dialysis -requiring levophed due to hypotension, off now ? deescalate to doxycycline ? Follow blood cultures, follow respiratory viral panel ? Will monitor fluid status closely, next ?monitor creatinine monitor electrolytes Systolic CHF, ischemic cardiomyopathy ? As above Right pleural effusion ? Status post thoracocentesis , 900 cc removed ?appears transudative ? Follow-up culture studies End-stage renal disease on dialysis ? Continue dialysis History of COVID-19, prolonged intubation, prolonged hospitalization, ? Monitor History of CAD status post stenting x 3 Continue aspirin, Plavix Low blood pressure ? Likely requiring during dialysis Concerns for pneumonia ? CT of the chest showed right upper lobe groundglass infiltrates, with subsegmental atelectasis left lower lobe left pleural effusion ? 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 Consult dietary ? Continue protein shakes Type 2 diabetes mellitus, ? Continue insulin sliding scale Right lower extremity UTI, completed meropenem for 3 days SVT ? Continue to monitor Sacral decubitus ulcer, DTI ? Continue offloading no ? Wound care Chronic ulcer of toe right foot ? Monitor VTE prophylaxis: Subcu heparin GI Prophylaxis: PPI Antibiotics: Status post 1 dose of vancomycin 3/4, meropenem initiated 3/4 Pending studies: Blood and urine cultures, thoracentesis, sputum pending collection Telemetry: Ordered secondary to arrhythmia at presentation Kincaid: Ordered secondary to need to monitor urine output and overall volume status closely Line(s): peripheral IVs, right upper chest dialysis catheter. I will note patient had a PICC line removed in September. Disposition plan: Currently anticipate discharge back home with home health care to include ongoing wound care, medication assistance, PT and OT. Followed by a [facility] home health care who sent him to the hospital today Code Status: Full Code Plan for today, will move to medical floors, Attestations Medical Necessity Statement*: Patient requires hospitalization for fluid overload requiring inpatient dialysis, clinical monitoring de-escalation of antibiotic therapy plan on continue dialysis, spoke to patient spoke to patient's , Diagnoses Exertional dyspnea R06.09 SVT (supraventricular tachycardia) I47.1 Pleural effusion, right J90 Stage 5 chronic kidney disease on chronic dialysis N18.6; Z99.2 Chronic kidney disease stage: on chronic dialysis Acute cystitis without hematuria N30.00 Urinary tract infection type: acute cystitis Hematuria presence: without hematuria Atherosclerosis of [place] coronary artery of [place] heart without angina pectoris I25.10 Coronary Disease-Associated Artery/Lesion type: [place] artery [place] vs. transplanted heart: [place] heart Associated angina: without angina Acquired hypothyroidism E03.9 Hypothyroidism type: acquired Diabetes mellitus with peripheral vascular disease E11.51 Chronic ulcer of toe of right foot with fat layer exposed L97.512 Pressure injury of sacral region, unstageable L89.150 Panic attacks F41.0 Acute hypoxic respiratory failure J96.01 Physical deconditioning R53.81 Protein calorie malnutrition E46
--- NOTE | 2023-10-10 12:07 | PC.NURSE ---
Patient refused to have telemetry placed back on him. We will not be able to do vitals without telemetry on.
[2023-10-10 12:26] LABS: Glucose Point of Care 197 mg/dL (70-110)
[2023-10-10] MEDS: collagenase oint 30 gm 1 APPLIC TOPICAL (12:44)
[2023-10-10] MEDS: heparin, porcine 1,000 unit/mL INJ 10 mL 10000 UNIT INTRACATH (15:06)
[2023-10-10] MEDS: heparin, porcine 1,000 unit/mL INJ 10 mL 1000 UNIT IV (15:07)
[2023-10-10] MEDS: epoetin alfa 1000 Unit/0.05 mL (ESRD) 20000 UNIT IVP (15:12)
--- NOTE | 2023-10-10 15:31 | PC.NURSE ---
Report called to Christine HAWTHORNE, on med surg. patient will be transferred after dialysis.
[2023-10-10] MEDS: albumin 12.5 GM/50 ML VIAL IV (15:40)
[2023-10-10 17:51] LABS: Glucose Point of Care 103 mg/dL (70-110)
[2023-10-10] MEDS: doxycycline 100 mg Tablet PO (18:10)
--- NOTE | 2023-10-10 19:01 | PC.HD ---
Redness noted to dialysis cath insertion site, photo sent to Dr Chong and shown to pt's nurse Lashonda to let hospitalist know. Site cleaned with CHG, MAHENDRA applied, and dressed with Covaderm.
[2023-10-10] MEDS: clopidogrel 75 mg Tablet PO (20:14)
[2023-10-10] MEDS: zolpidem 5 mg Tablet PO (20:14)
[2023-10-10] MEDS: aspirin 81 mg EC Tablet PO (20:14)
[2023-10-10] MEDS: docusate sodium 10 mg/mL (5ml) Liq 100 MG PO (20:14)
[2023-10-10 20:53] LABS: Glucose Point of Care 176 mg/dL (70-110)
[2023-10-11] VITALS (9 sets, daily range): BP systolic 124–154; BP diastolic 51–79; PULSE 90–102; RESP 15–28; TEMP 36.6–38.1; O2SAT 97–100
[2023-10-11 03:27] LABS: Basophils # 0.1 10^3/uL (0.0-0.1); Basophils % 1.3 %; Eosinophils # 0.4 10^3/uL (0.0-0.8); Eosinophils % 6.1 %; Hematocrit 31.8 % (37-53); Lymphocytes % 41.9 %; Mean Corpuscular HGB Conc 29.2 g/dL (30-55); Mean Corpuscular Hemoglobin 28.8 pg (27-33); Mean Corpuscular Volume 98.5 fl (82-101); Mean Platelet Volume 9.2 fL (7.4-10.4); Monocytes # 0.4 10^3/uL (0.2-0.9); Monocytes % 6.2 %; Neutrophils # 3.13 10^3/uL (1.8-7.7); Neutrophils % 44.2 %; Nucleated Red Blood Cells % 0 %; Platelet Count 222 10^3/cmm (157-399); Red Blood Count 3.23 10^6/uL (3.85-5.65); Red Cell Distribution Width 14.2 % (12.1-15.1); White Blood Count 7.08 10^3/uL (3.29-11.43)
[2023-10-11 03:42] LABS: Alanine Aminotransferase 6 U/L (0-41); Albumin Level 3.4 g/dL (3.5-5.2); Alkaline Phosphatase 76 U/L (40-130); Anion Gap 10.2 (5-19); Aspartate Amino Transferase 9 U/L (0-40); Blood Urea Nitrogen 27 mg/dL (8-23); C Reactive Protein 9.7 mg/L (0.0-4.9); Calcium 8.5 mg/dL (8.5-10.5); Carbon Dioxide 31 mmol/L (22-29); Chloride 96 mmol/L (98-107); Creatinine Clr Calc Pharmacy 27.7095; Glucose 162 mg/dL (65-115); Magnesium 1.9 mg/dL (1.7-2.3); Osmolality Calculated 285 mOsm/kg (285-295); Phosphorus 2.6 mg/dL (2.5-4.5); Potassium 4.2 mmol/L (3.5-5.1); Sodium 133 mmol/L (136-145); Total Bilirubin 0.2 mg/dL (0.15-1.2); Total Protein 5.4 g/dL (6.6-8.7)
[2023-10-11 03:57] LABS: NT Pro B Type Natriuretic Pept 30964 pg/mL (0-125); Procalcitonin 0.38 ng/mL (0-0.5)
[2023-10-11] MEDS: acetaminophen 325 mg Tablet 650 MG PO ×2 (04:49→20:57)
[2023-10-11] MEDS: heparin 5,000 unit/mL INJ 1 mL 5000 UNIT SUBCUT ×2 (04:49→17:39)
[2023-10-11] MEDS: levothyroxine 150 mcg Tablet PO (04:49)
[2023-10-11 06:30] LABS: Glucose Point of Care 147 mg/dL (70-110)
[2023-10-11 08:47] LABS: Free T4 Free Thyroxine 0.71 ng/dL (0.82-1.77); Thyroid Stimulating Hormone 73.62 uIU/mL (0.27-4.20)
[2023-10-11] MEDS: insulin lispro 100 unit/1 mL SUBCUT ×3 (09:00→20:57)
[2023-10-11] MEDS: doxycycline 100 mg Tablet PO ×2 (09:00→17:39)
[2023-10-11] MEDS: docusate sodium 10 mg/mL (5ml) Liq 100 MG PO ×2 (09:01→17:39)
[2023-10-11] MEDS: collagenase oint 30 gm 1 APPLIC TOPICAL (09:01)
[2023-10-11] MEDS: insulin glargine 100 units/1 mL 8 UNIT SUBCUT (09:25)
[2023-10-11] MEDS: polyethylene glycol 3350 Pkt 17 gm PO (09:25)
--- NOTE | 2023-10-11 11:29 | P.PN_ITS ---
Subjective 2 Subjective: Patient was seen this morning, he tells me he does not feel well this morning he has not had a bowel movement feels bloated, he did have a low-grade temperature this morning, will continue to monitor, is at bedside, spoke to patient, spoke to , spoke to nursing staff, on 3 L, normotensive Vitals/I&O/Wt Last Vital Signs Temp 98.0 F 10/11/23 08:00 Pulse 95 10/11/23 08:02 Resp 18 10/11/23 08:02 BP 126/66 10/11/23 08:00 Pulse Ox 98 10/11/23 08:02 O2 Del Method Nasal Cannula 10/11/23 08:02 O2 Flow Rate 3 10/11/23 08:02 FiO2 35 10/11/23 00:00 10/10/23 10/11/23 10/11/23 22:59 06:59 14:59 Intake Total 960 / 1420 120 / 1540 240 / 240 Output Total 2323 / 2323 200 / 2523 Balance -1363 / -903 -80 / -983 240 / 240 Weight last 48 hrs Weight 89.443 kg Weight 92.9 kg Weight 91.626 kg Physical Exam 2 Const: COMMON NORMALS: no acute distress and patient oriented x3 Resp: COMMON NORMALS: normal respiratory effort, No retractions, No use of accessory muscles and clear to auscultation bilaterally AUSCULTATION: clear to auscultation bilaterally Cardio: COMMON NORMALS: regular rate, regular rhythm, S1 normal heart sound present and S2 normal heart sound present RATE: regular rate RHYTHM: r egular rhythm HEART SOUNDS: S1 normal heart sound present and S2 normal heart sound present GI: COMMON NORMALS: Normal to inspection, nondistended, normoactive bowel sounds present and non-tender Extremity: COMMON NORMALS: no pedal edema Neuro: COMMON NORMALS: patient oriented x3 Psych: COMMON NORMALS: mental status grossly normal Urinary Catheter Management: Kincaid: Cath Placed During This Visit: yes Reason for Continuing Indwelling Catheter: Accurate Measurement of Urinary Output in Critically Ill Patients Urinary Catheter Date of Insertion: 10/06/23 Urinary Catheter Time of Insertion: 14:22 Data 10/11/23 02:52 10/11/23 02:52 Micro: Microbiology 10/06/23 17:45 Gram Stain - Final Pleural Fluid Anaerobic Culture - Preliminary Body Fluid Culture - Final A&P Assessment and plan (1) Exertional dyspnea: (2) SVT (supraventricular tachycardia): resolved I suspect it is related to #1 secondary to #3 and its impact on respiratory status. He received his usual metoprolol dosing, antibiotics and 1 dose of Lasix with clinical improvement. Has a history of atrial fibrillation with rapid ventricular response/atrial flutter during a prior hospital stay. Not on chronic anticoagulation due to concern about bleeding risk. Is on antiplatelet therapy with aspirin and Plavix. (3) Pleural effusion, right: (4) CKD (chronic kidney disease): Qualifiers: Chronic kidney disease stage: on chronic dialysis Qualified Code(s): N 18.6 - End stage renal disease; Z99.2 - Dependence on renal dialysis (5) UTI (urinary tract infection): Present on admission. No reported dysuria but has had increased sediment and cloudiness noted at home. Qualifiers: Urinary tract infection type: acute cystitis Hematuria presence: w ithout hematuria Qualified Code(s): N30.00 - Acute cystitis without hematuria (6) Atherosclerosis of coronary artery: Status post RCA stent x 3 in August of this year. Initial troponin 340. 2- hour troponin 336. Unknown baseline after prolonged hospital stay in August of this year when he had the cardiac intervention. No report of chest pain, primarily shortness of breath with palpitations and some transient lightheadedness. Cannot currently rule out a type II process but I suspect he has a baseline significant elevation in troponin currently. On chronic aspirin and Plavix along with beta-blockade. Intolerant of statin therapy. Has as needed nitroglycerin at home. Qualifiers: Coronary Disease-Associated Artery/Lesion type: [place] artery [place] vs. transplanted heart: [place] heart Associated angina: without angina Qualified Code(s): I25.10 - Atherosclerotic heart disease of [place] coronary artery without angina pectoris (7) Hypothyroidism: Suboptimally controlled with most recent TSH at 92. Dosing of levothyroxine was adjusted. Qualifiers: Hypothyroidism type: acquired Qualified Code(s): E03.9 - Hypothyroidism, unspecified (8) Diabetes mellitus with peripheral vascular disease: Insulin requiring. On both long and short acting insulin. (9) Chronic ulcer of toe of right foot with fat layer exposed: Follows with Dr. Baird (10) Pressure injury of sacral region, unstageable: Has regular wound care, currently receiving Santyl with dressing changes daily (11) Panic attacks: And difficulty sleeping. Has been tried on multiple medications none with any significant success. Hesitant to try new medications as he does not tolerate medicines the same way others do. Currently manageable. (12) Acute hypoxic respiratory failure: (13) Physical deconditioning: (14) Protein calorie malnutrition: Plan Acute hypoxic respiratory failure ? Secondary to fluid overload, end-stage renal disease, systolic and diastolic CHF exacerbation ? Plan ? Continue inpatient dialysis -requiring levophed due to hypotension, off now ? deescalate to doxycycline ? Follow blood cultures, follow respiratory viral panel ? Will monitor fluid status closely, next ?monitor creatinine monitor electrolytes Systolic CHF, ischemic cardiomyopathy ? As above Right pleural effusion ? Status post thoracocentesis , 900 cc removed ?appears transudative ? Follow-up culture studies, so far no growth End-stage renal disease on dialysis ? Continue dialysis History of COVID-19, prolonged intubation, prolonged hospitalization, ? Monitor History of CAD status post stenting x 3 Continue aspirin, Plavix Low blood pressure ? Likely requiring during dialysis Concerns for pneumonia ? CT of the chest showed right upper lobe groundglass infiltrates, with subsegmental atelectasis left lower lobe left pleural effusion ? 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 Consult dietary ? Continue protein shakes Type 2 diabetes mellitus, ? Continue insulin sliding scale Right lower extremity UTI, completed meropenem for 3 days SVT ? Continue to monitor Sacral decubitus ulcer, DTI ? Continue offloading no ? Wound care Chronic ulcer of toe right foot ? Monitor VTE prophylaxis: Subcu heparin GI Prophylaxis: PPI Antibiotics: Status post 1 dose of vancomycin 10/05, meropenem initiated 3/, now on doxycycline Pending studies: Blood and urine cultures, thoracentesis, sputum pending collection Telemetry: Ordered secondary to arrhythmia at presentation Kincaid: Ordered secondary to need to monitor urine output and overall volume status closely Line(s): peripheral IVs, right upper chest dialysis catheter. I will note patient had a PICC line removed in September. Disposition plan: Currently anticipate discharge back home with home health care to include ongoing wound care, medication assistance, PT and OT. Followed by a [facility] care who sent him to the hospital today Code Status: Full Code Plan for today, given his low-grade temperature, will monitor closely, respiratory viral panel, repeat UA, repeat chest x-ray, lack of bowel movement, lactulose, MiraLAX can consider enema, TSH has been elevated in the 90s will recheck TSH consider liothyronine, concern for myxedema coma as TSH is over 75, low T3, low T4, start Cytomel Attestations 2 Medical Necessity Statement*: Patient requires hospitalization for fevers, constipation, elevated TSH, fluid overload will get dialysis tomorrow, concerns for myxedema coma, start Cytomel, Diagnoses Exertional dyspnea R06.09 SVT (supraventricular tachycardia) I47.1 Pleural effusion, right J90 Stage 5 chronic kidney disease on chronic dialysis N18.6; Z99.2 Chronic kidney disease stage: on chronic dialysis Acute cystitis without hematuria N30.00 Urinary tract infection type: acute cystitis Hematuria presence: without hematuria Atherosclerosis of [place] coronary artery of [place] heart without angina pectoris I25.10 Coronary Disease-Associated Artery/Lesion type: [place] artery [place] vs. transplanted heart: [place] heart Associated angina: without angina Acquired hypothyroidism E03.9 Hypothyroidism type: acquired Diabetes mellitus with peripheral vascular disease E11.51 Chronic ulcer of toe of right foot with fat layer exposed L97.512 Pressure injury of sacral region, unstageable L89.150 Panic attacks F41.0 Acute hypoxic respiratory failure J96.01 Physical deconditioning R53.81 Protein calorie malnutrition E46
--- NOTE | 2023-10-11 11:32 | XRR_ITS ---
PROCEDURE INFORMATION: Exam: XR Chest Exam date and time: 10/11/2023 12:06 PM Age: 73 years old Clinical indication: Fever TECHNIQUE: Imaging protocol: Radiologic exam of the chest. Views: 1 view. COMPARISON: CR XR chest 1V portable [id number] 10/08/2023 6:21 AM FINDINGS: Tubes, catheters and devices: Stable appearance of right chest dual lumen central venous catheter. Lungs: Persistent bibasilar hazy opacities. Pleural spaces: Persistent bilateral pleural effusions. Heart/Mediastinum: Cardiomediastinal silhouette is midline and stable in size. Vasculature: Mild calcifications of the aortic knob. Bones/joints: Osseous structures are unchanged. XR/XR chest 1V portable [id number] IMPRESSION: Persistent [id number]-left bibasilar opacities, which likely represent a combination of pleural effusion, atelectasis, and infiltrate.
[2023-10-11 11:44] LABS: Glucose Point of Care 275 mg/dL (70-110)
[2023-10-11 11:44] LABS: Glucose Point of Care 586 mg/dL (70-110)
[2023-10-11] MEDS: lactulose oral liq 20 gm/30 mL UDC PO (12:21)
[2023-10-11] MEDS: fluconazole 100 mg Tablet PO (12:21)
[2023-10-11] MEDS: liothyronine 5 mcg Tablet PO (12:21)
[2023-10-11 13:50] LABS: Specific Gravity, Urine 1.015 (1.005-1.030); Urine Appearance Turbid (CLEAR); Urine Color Straw (Yellow); pH Urine 5 (5-7)
[2023-10-11 13:51] LABS: Add Urine Culture? Yes; Add Urine Microscopic? YES; Bacteria Urine 2+ /hpf; Bilirubin Urine Neg (Negative); Blood Urine 3+ (Negative); Glucose Urine UA Norm (Normal); Ketones Urine Negative (Negative); Leukocyte Esterase Urine 2+ (Negative); Nitrate Urine Negative (Negative); Protein Urine 3+ (Negative); Urobilinogen Urine Norm (Negative); WBC Urine TOO NUMEROUS TO CNT /hpf (0-5)
--- NOTE | 2023-10-11 13:55 | P.PN_ITS ---
Subjective 2 Subjective: feels well Medications: Reviewed: Yes Vitals/I&O/Wt Last Vital Signs Temp 98.0 F 10/11/23 12:00 Pulse 100 10/11/23 12:00 Resp 16 10/11/23 12:00 BP 130/51 10/11/23 12:00 Pulse Ox 97 10/11/23 12:00 O2 Del Method Nasal Cannula 10/11/23 12:00 O2 Flow Rate 3 10/11/23 08:02 FiO2 35 10/11/23 00:00 10/10/23 10/11/23 10/11/23 22:59 06:59 14:59 Intake Total 960 / 1420 120 / 1540 480 / 480 Output Total 2323 / 2323 200 / 2523 Balance -1363 / -903 -80 / -983 480 / 480 Weight last 48 hrs Weight 89.443 kg Weight 92.9 kg Weight 91.626 kg Physical Exam 2 Narrative: awake , alert no distress + edema Urinary Catheter Management: Kincaid: Cath Placed During This Visit: yes Reason for Continuing Indwelling Catheter: Accurate Measurement of Urinary Output in Critically Ill Patients Urinary Catheter Date of Insertion: 10/06/23 Urinary Catheter Time of Insertion: 14:22 Data 10/11/23 02:52 10/11/23 02:52 Micro: Microbiology 10/06/23 14:15 Urine Culture - Final Urine,Clean Catch Miriam albicans 10/06/23 12:14 Blood Culture - Final Blood NO GROWTH AFTER 5 DAYS 10/06/23 12:11 Blood Culture - Final Blood NO GROWTH AFTER 5 DAYS 10/06/23 17:45 Gram Stain - Final Pleural Fluid Anaerobic Culture - Preliminary Body Fluid Culture - Final A&P Assessment and plan (1) End-stage renal disease on hemodialysis: Plan 1. End-stage renal disease: On TTS schedule as outpatient but patient presented with volume overload and respiratory distress HD tomorrow 2. Large right pleural effusion S/P thoracentesis 3. Hypertension: Restart home meds 4. History of coronary artery disease and stents 5. History of atrial fibrillation 6. Anemia hemoglobin at goal Patient evaluated using audiovisual cart. Time spent 20 minutes. Attestations 2 Medical Necessity Statement*: per medicine Coding Level of Care Code Acute Code for Chg Fwd Diagnoses End-stage renal disease on hemodialysis N18.6; Z99.2
[2023-10-11 15:23] LABS: Adenovirus Not Detected (NOT DETECT); Chlamydia Pneumoniae Not Detected (NOT DETECT); Coronavirus 229E,HKU1,NL63,OC4 Not Detected (NOT DETECT); Human Metapneumovirus Not Detected (NOT DETECT); Human Rhinovirus/Enterovirus Not Detected (NOT DETECT); Influenza A Not Detected (NOT DETECT); Influenza A H1 Not Detected (NOT DETECT); Influenza A H1-2009 Not Detected (NOT DETECT); Influenza A H3 Not Detected (NOT DETECT); Influenza B Not Detected (NOT DETECT); Mycoplasma Pneumoniae Not Detected (NOT DETECT); Parainfluenza Virus Type 1 Not Detected (NOT DETECT); Parainfluenza Virus Type 2 Not Detected (NOT DETECT); Parainfluenza Virus Type 3 Not Detected (NOT DETECT); Parainfluenza Virus Type 4 Not Detected (NOT DETECT); Respiratory Syncytial Virus A Not Detected (NOT DETECT); Respiratory Syncytial Virus B Not Detected (NOT DETECT); SARS-COV-2 Not Detected (NOT DETECT)
[2023-10-11 20:50] LABS: Glucose Point of Care 253 mg/dL (70-110)
[2023-10-11] MEDS: zolpidem 5 mg Tablet PO (20:57)
[2023-10-11] MEDS: clopidogrel 75 mg Tablet PO (20:57)
[2023-10-11] MEDS: aspirin 81 mg EC Tablet PO (20:57)
[2023-10-12] VITALS (14 sets, daily range): BP systolic 109–143; BP diastolic 57–78; PULSE 76–99; RESP 17–36; TEMP 36.4–37.3; O2SAT 92–100
[2023-10-12] MEDS: acetaminophen 325 mg Tablet 650 MG PO ×2 (03:18→20:51)
[2023-10-12 04:49] LABS: Glucose Point of Care 116 mg/dL (70-110)
[2023-10-12] MEDS: lanolin oint 7 gm 1 APPLIC TOPICAL (05:15)
[2023-10-12] MEDS: heparin 5,000 unit/mL INJ 1 mL 5000 UNIT SUBCUT ×2 (05:15→17:05)
[2023-10-12] MEDS: levothyroxine 150 mcg Tablet PO (05:15)
[2023-10-12 06:06] LABS: Basophils # 0.1 10^3/uL (0.0-0.1); Eosinophils # 0.5 10^3/uL (0.0-0.8); Eosinophils % 5.7 %; Hematocrit 31.7 % (37-53); Lymphocytes # 4.3 10^3/uL (0.8-4.8); Lymphocytes % 45.1 %; Mean Corpuscular Hemoglobin 28.2 pg (27-33); Mean Corpuscular Volume 97.2 fl (82-101); Mean Platelet Volume 9.3 fL (7.4-10.4); Monocytes # 0.7 10^3/uL (0.2-0.9); Neutrophils # 3.86 10^3/uL (1.8-7.7); Nucleated Red Blood Cells % 0 %; Platelet Count 237 10^3/cmm (157-399); Red Blood Count 3.26 10^6/uL (3.85-5.65); Red Cell Distribution Width 14.2 % (12.1-15.1); White Blood Count 9.42 10^3/uL (3.29-11.43)
[2023-10-12 06:19] LABS: Glucose Point of Care 96 mg/dL (70-110)
[2023-10-12 06:31] LABS: Alanine Aminotransferase 7 U/L (0-41); Albumin Level 3.1 g/dL (3.5-5.2); Alkaline Phosphatase 71 U/L (40-130); Aspartate Amino Transferase 13 U/L (0-40); Blood Urea Nitrogen 43 mg/dL (8-23); C Reactive Protein 10.1 mg/L (0.0-4.9); Calcium 8.5 mg/dL (8.5-10.5); Carbon Dioxide 26 mmol/L (22-29); Chloride 102 mmol/L (98-107); Creatinine Clr Calc Pharmacy 21.7204; Glucose 80 mg/dL (65-115); Osmolality Calculated 296 mOsm/kg (285-295); Phosphorus 2.5 mg/dL (2.5-4.5); Sodium 138 mmol/L (136-145); Total Bilirubin 0.2 mg/dL (0.15-1.2); Total Protein 5.1 g/dL (6.6-8.7)
[2023-10-12 06:36] LABS: Anion Gap 14.6 (5-19); Potassium 4.6 mmol/L (3.5-5.1)
[2023-10-12 06:43] LABS: Free T4 Free Thyroxine 0.75 ng/dL (0.82-1.77); NT Pro B Type Natriuretic Pept 31704 pg/mL (0-125); Procalcitonin 0.35 ng/mL (0-0.5); T3 Free 1.2 PG/ML (2.0-4.4); Thyroid Stimulating Hormone 62.48 uIU/mL (0.27-4.20)
[2023-10-12] MEDS: fluconazole 100 mg Tablet PO (08:24)
[2023-10-12] MEDS: doxycycline 100 mg Tablet PO ×2 (08:24→17:05)
[2023-10-12] MEDS: docusate sodium 10 mg/mL (5ml) Liq 100 MG PO ×2 (08:24→17:06)
[2023-10-12] MEDS: collagenase oint 30 gm 1 APPLIC TOPICAL (08:25)
[2023-10-12] MEDS: insulin glargine 100 units/1 mL 8 UNIT SUBCUT (08:25)
[2023-10-12] MEDS: meropenem 1,000 MG in sodium chloride 0.9% (plus) 50 ML 100 MG IV ×2 (09:47→17:05)
[2023-10-12] MEDS: albumin 12.5 GM/50 ML VIAL IV ×2 (10:50→12:46)
[2023-10-12 11:17] LABS: Glucose Point of Care 203 mg/dL (70-110)
--- NOTE | 2023-10-12 12:12 | P.PN_ITS ---
Subjective 2 Subjective: Patient reports that his weakness and tiredness have significantly improved, we discussed his elevated thyroid function and low T3-T4, possibly myxedema coma could be playing a role, will give him another dose of Cytomel today, he continues to be quite constipated, he was given MiraLAX and lactulose yesterday, will give another dose of MiraLAX and then a mineral oral enema, he tells me that he continues to feel bloated as he has not had a bowel movement, we also discussed concerns for a UTI he has had yeast UTIs in the past so I am starting him back on meropenem, and continue Diflucan, is at bedside she was hoping to take him home today she tells me, my concern would be with his persistent fluid overload, will see how he does with dialysis continue antibiotics, watch his thyroid function hopefully by tomorrow he can discharge home, patient and are agreeable Vitals/I&O/Wt Last Vital Signs Temp 97.6 F 10/12/23 07:43 Pulse 99 10/12/23 11:09 Resp 23 H 10/12/23 08:46 BP 132/66 10/12/23 07:43 Pulse Ox 100 10/12/23 11:09 O2 Del Method BiPAP 10/12/23 08:46 O2 Flow Rate 3 10/11/23 08:02 FiO2 35 10/12/23 11:09 10/11/23 10/12/23 10/12/23 21:59 06:59 14:59 Intake Total 290 / 290 Output Total Balance 290 / 290 Weight last 48 hrs Weight 94.483 kg Weight 94.483 kg Weight 89.443 kg Weight 92.9 kg Physical Exam 2 Const: COMMON NORMALS: no acute distress and patient oriented x3 Resp: COMMON NORMALS: normal respiratory effort, No retractions and No use of accessory muscles AUSCULTATION: crackles Cardio: COMMON NORMALS: regular rate, regular rhythm, S1 normal heart sound present and S2 normal heart sound present RATE: regular rate RHYTHM: r egular rhythm HEART SOUNDS: S1 normal heart sound present and S2 normal heart sound present GI: COMMON NORMALS: Normal to inspection, nondistended, normoactive bowel sounds present and non-tender Extremity: COMMON NORMALS: no pedal edema Neuro: COMMON NORMALS: patient oriented x3 Psych: COMMON NORMALS: mental status grossly normal Urinary Catheter Management: Kincaid: Cath Placed During This Visit: yes Reason for Continuing Indwelling Catheter: Other Urinary Catheter Date of Insertion: 10/06/23 Urinary Catheter Time of Insertion: 14:22 Data 10/12/23 05:12 10/12/23 05:12 Micro: Microbiology 10/11/23 13:18 Urine Culture - Preliminary Urine,Clean Catch Yeast species 10/06/23 17:45 Gram Stain - Final Pleural Fluid Anaerobic Culture - Preliminary Body Fluid Culture - Final 10/06/23 14:15 Urine Culture - Final Urine,Clean Catch Miriam albicans 10/06/23 12:14 Blood Culture - Final Blood NO GROWTH AFTER 5 DAYS 10/06/23 12:11 Blood Culture - Final Blood NO GROWTH AFTER 5 DAYS A&P Assessment and plan (1) Exertional dyspnea: (2) SVT (supraventricular tachycardia): resolved I suspect it is related to #1 secondary to #3 and its impact on respiratory status. He received his usual metoprolol dosing, antibiotics and 1 dose of Lasix with clinical improvement. Has a history of atrial fibrillation with rapid ventricular response/atrial flutter during a prior hospital stay. Not on chronic anticoagulation due to concern about bleeding risk. Is on antiplatelet therapy with aspirin and Plavix. (3) Pleural effusion, right: (4) CKD (chronic kidney disease): Qualifiers: Chronic kidney disease stage: on chronic dialysis Qualified Code(s): N 18.6 - End stage renal disease; Z99.2 - Dependence on renal dialysis (5) UTI (urinary tract infection): Present on admission. No reported dysuria but has had increased sediment and cloudiness noted at home. Qualifiers: Urinary tract infection type: acute cystitis Hematuria presence: w [facility] hematuria Qualified Code(s): N30.00 - Acute cystitis without hematuria (6) Atherosclerosis of coronary artery: Status post RCA stent x 3 in August of this year. Initial troponin 340. 2- hour troponin 336. Unknown baseline after prolonged hospital stay in August of this year when he had the cardiac intervention. No report of chest pain, primarily shortness of breath with palpitations and some transient lightheadedness. Cannot currently rule out a type II process but I suspect he has a baseline significant elevation in troponin currently. On chronic aspirin and Plavix along with beta-blockade. Intolerant of statin therapy. Has as needed nitroglycerin at home. Qualifiers: Coronary Disease-Associated Artery/Lesion type: [place] artery [place] vs. transplanted heart: [place] heart Associated angina: without angina Qualified Code(s): I25.10 - Atherosclerotic heart disease of [place] coronary artery without angina pectoris (7) Hypothyroidism: Suboptimally controlled with most recent TSH at 92. Dosing of levothyroxine was adjusted. Qualifiers: Hypothyroidism type: acquired Qualified Code(s): E03.9 - Hypothyroidism, unspecified (8) Diabetes mellitus with peripheral vascular disease: Insulin requiring. On both long and short acting insulin. (9) Chronic ulcer of toe of right foot with fat layer exposed: Follows with Dr. Baird (10) Pressure injury of sacral region, unstageable: Has regular wound care, currently receiving Santyl with dressing changes daily (11) Panic attacks: And difficulty sleeping. Has been tried on multiple medications none with any significant success. Hesitant to try new medications as he does not tolerate medicines the same way others do. Currently manageable. (12) Acute hypoxic respiratory failure: (13) Physical deconditioning: (14) Protein calorie malnutrition: (15) Myxedema coma: Plan Acute hypoxic respiratory failure ? Secondary to fluid overload, end-stage renal disease, systolic and diastolic CHF exacerbation ? Plan ? Continue inpatient dialysis, -requiring levophed due to hypotension, off now ? deescalate to doxycycline ? Follow blood cultures, follow respiratory viral panel ? Will monitor fluid status closely, next ?monitor creatinine monitor electrolytes Systolic CHF, ischemic cardiomyopathy ? As above Right pleural effusion ? Status post thoracocentesis , 900 cc removed ?appears transudative ? Follow-up culture studies, so far no growth End-stage renal disease on dialysis ? Continue dialysis History of COVID-19, prolonged intubation, prolonged hospitalization, ? Monitor History of CAD status post stenting x 3 Continue aspirin, Plavix Low blood pressure ? Likely requiring during dialysis Concerns for pneumonia ? CT of the chest showed right upper lobe groundglass infiltrates, with subsegmental atelectasis left lower lobe left pleural effusion ? 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 Consult dietary ? Continue protein shakes Type 2 diabetes mellitus, ? Continue insulin sliding scale Right lower extremity SVT ? Continue to monitor Sacral decubitus ulcer, DTI ? Continue offloading no ? Wound care Chronic ulcer of toe right foot ? Monitor Myxedema coma, TSH over 94, free T40.71, free T3 1.0 status post 1 dose Cytomel yesterday, his energy and strength and mentation have improved we will give another dose of Cytomel Now with UTI concerns for yeast UTI, resume meropenem, start Diflucan VTE prophylaxis: Subcu heparin GI Prophylaxis: PPI Antibiotics: Status post 1 dose of vancomycin 10/05, meropenem initiated 10/05, now on doxycycline Pending studies: Blood and urine cultures, thoracentesis, sputum pending collection Telemetry: Ordered secondary to arrhythmia at presentation Kincaid: Ordered secondary to need to monitor urine output and overall volume status closely Line(s): peripheral IVs, right upper chest dialysis catheter. I will note patient had a PICC line removed in September. Disposition plan: Currently anticipate discharge back home with home health care to include ongoing wound care, medication assistance, PT and OT. Followed by a [facility] home health care who sent him to the hospital today Code Status: Full Code Plan for today, given his low-grade temperature, will monitor closely, respiratory viral panel, repeat UA, repeat chest x-ray, lack of bowel movement, lactulose, MiraLAX can consider enema, TSH has been elevated in the 90s will recheck TSH consider liothyronine, concern for myxedema coma as TSH is over 75, low T3, low T4, start Cytomel Attestations 2 Medical Necessity Statement*: Patient requires hospitalization for fluid overload, requiring dialysis, with consideration of myxedema coma, with concerns for recurrent UTI, spoke to patient, spoke to nursing staff spoke to at bedside and High MDM includes number and complexity of problems actively addressed during encounter, amount and/or complexity of data reviewed/ordered and described risk of complication, morbidity or mortality of management as documented Diagnoses Exertional dyspnea R06.09 SVT (supraventricular tachycardia) I47.1 Pleural effusion, right J90 Stage 5 chronic kidney disease on chronic dialysis N18.6; Z99.2 Chronic kidney disease stage: on chronic dialysis Acute cystitis without hematuria N30.00 Urinary tract infection type: acute cystitis Hematuria presence: without hematuria Atherosclerosis of [place] coronary artery of [place] heart without angina pectoris I25.10 Coronary Disease-Associated Artery/Lesion type: [place] artery [place] vs. transplanted heart: [place] heart Associated angina: without angina Acquired hypothyroidism E03.9 Hypothyroidism type: acquired Diabetes mellitus with peripheral vascular disease E11.51 Chronic ulcer of toe of right foot with fat layer exposed L97.512 Pressure injury of sacral region, unstageable L89.150 Panic attacks F41.0 Acute hypoxic respiratory failure J96.01 Physical deconditioning R53.81 Protein calorie malnutrition E46 Myxedema coma E03.5
--- NOTE | 2023-10-12 12:43 | P.PN_ITS ---
Subjective 2 Subjective: on BIPAP Medications: Reviewed: Yes Vitals/I&O/Wt Last Vital Signs Temp 97.6 F 10/12/23 07:43 Pulse 99 10/12/23 11:09 Resp 23 H 10/12/23 08:46 BP 132/66 10/12/23 07:43 Pulse Ox 100 10/12/23 11:09 O2 Del Method BiPAP 10/12/23 08:46 O2 Flow Rate 3 10/11/23 08:02 FiO2 35 10/12/23 11:09 10/11/23 10/12/23 10/12/23 21:59 06:59 14:59 Intake Total 290 / 290 Output Total Balance 290 / 290 Weight last 48 hrs Weight 94.483 kg Weight 94.483 kg Weight 89.443 kg Weight 92.9 kg Physical Exam 2 Narrative: awake , alert no distress + edema Urinary Catheter Management: Kincaid: Cath Placed During This Visit: yes Reason for Continuing Indwelling Catheter: Other Urinary Catheter Date of Insertion: 10/06/23 Urinary Catheter Time of Insertion: 14:22 Data 10/12/23 05:12 10/12/23 05:12 Micro: Microbiology 10/11/23 13:18 Urine Culture - Preliminary Urine,Clean Catch Yeast species 10/06/23 17:45 Gram Stain - Final Pleural Fluid Anaerobic Culture - Preliminary Body Fluid Culture - Final 10/06/23 14:15 Urine Culture - Final Urine,Clean Catch Miriam albicans 10/06/23 12:14 Blood Culture - Final Blood NO GROWTH AFTER 5 DAYS 10/06/23 12:11 Blood Culture - Final Blood NO GROWTH AFTER 5 DAYS A&P Assessment and plan (1) End-stage renal disease on hemodialysis: Plan 1. End-stage renal disease: On TTS schedule as outpatient but patient presented with volume overload and respiratory distress HD today 2. Large right pleural effusion S/P thoracentesis 3. Hypertension: Restart home meds 4. History of coronary artery disease and stents 5. History of atrial fibrillation 6. Anemia, RAUL with hd 7. Acute on chronic resp failure - on bipap Patient evaluated using audiovisual cart. Time spent 20 minutes. Attestations 2 Medical Necessity Statement*: PER TY Coding Level of Care Code Acute Code for Chg Fwd Diagnoses End-stage renal disease on hemodialysis N18.6; Z99.2
[2023-10-12] MEDS: heparin, porcine 1,000 unit/mL INJ 10 mL 1000 UNIT IV (15:02)
[2023-10-12] MEDS: heparin, porcine 1,000 unit/mL INJ 10 mL 10000 UNIT INTRACATH (15:02)
[2023-10-12] MEDS: polyethylene glycol 3350 Pkt 17 gm PO (15:10)
[2023-10-12] MEDS: liothyronine 5 mcg Tablet PO (15:11)
[2023-10-12] MEDS: mineral oil ENEMA 133 mL PR (15:11)
[2023-10-12 16:26] LABS: Glucose Point of Care 191 mg/dL (70-110)
[2023-10-12] MEDS: insulin lispro 100 unit/1 mL SUBCUT ×2 (17:14→20:51)
[2023-10-12 20:43] LABS: Glucose Point of Care 144 mg/dL (70-110)
[2023-10-12] MEDS: aspirin 81 mg EC Tablet PO (20:51)
[2023-10-12] MEDS: clopidogrel 75 mg Tablet PO (20:51)
[2023-10-12] MEDS: zolpidem 5 mg Tablet PO (20:51)
[2023-10-13] VITALS (13 sets, daily range): BP systolic 116–139; BP diastolic 69–84; PULSE 85–95; RESP 16–35; TEMP 36.5–36.7; O2SAT 93–100
[2023-10-13] MEDS: meropenem 1,000 MG in sodium chloride 0.9% (plus) 50 ML 100 MG IV ×3 (00:13→21:22)
[2023-10-13 03:16] LABS: Basophils # 0.1 10^3/uL (0.0-0.1); Basophils % 1.1 %; Eosinophils # 0.4 10^3/uL (0.0-0.8); Hematocrit 30.5 % (37-53); Lymphocytes # 3.3 10^3/uL (0.8-4.8); Lymphocytes % 38.9 %; Mean Corpuscular HGB Conc 29.5 g/dL (30-55); Mean Corpuscular Hemoglobin 28.8 pg (27-33); Mean Corpuscular Volume 97.4 fl (82-101); Mean Platelet Volume 9.4 fL (7.4-10.4); Monocytes # 0.6 10^3/uL (0.2-0.9); Monocytes % 7.6 %; Neutrophils # 3.98 10^3/uL (1.8-7.7); Neutrophils % 47.2 %; Nucleated Red Blood Cells % 0 %; Platelet Count 241 10^3/cmm (157-399); Red Blood Count 3.13 10^6/uL (3.85-5.65); Red Cell Distribution Width 14.5 % (12.1-15.1); White Blood Count 8.43 10^3/uL (3.29-11.43)
[2023-10-13 03:58] LABS: Alanine Aminotransferase 6 U/L (0-41); Albumin Level 3.5 g/dL (3.5-5.2); Alkaline Phosphatase 70 U/L (40-130); Anion Gap 13.4 (5-19); Aspartate Amino Transferase 10 U/L (0-40); Blood Urea Nitrogen 28 mg/dL (8-23); C Reactive Protein 9.9 mg/L (0.0-4.9); Calcium 8.5 mg/dL (8.5-10.5); Carbon Dioxide 29 mmol/L (22-29); Chloride 98 mmol/L (98-107); Globulin 1.5 g/dL (1.3-4.6); Glucose 91 mg/dL (65-115); Magnesium 1.9 mg/dL (1.7-2.3); Osmolality Calculated 287 mOsm/kg (285-295); Potassium 4.4 mmol/L (3.5-5.1); Sodium 136 mmol/L (136-145); Total Bilirubin 0.3 mg/dL (0.15-1.2)
[2023-10-13 04:03] LABS: Free T4 Free Thyroxine 0.76 ng/dL (0.82-1.77); NT Pro B Type Natriuretic Pept 29518 pg/mL (0-125); Procalcitonin 0.34 ng/mL (0-0.5); T3 Free 1.1 PG/ML (2.0-4.4); Thyroid Stimulating Hormone 51.31 uIU/mL (0.27-4.20)
[2023-10-13] MEDS: levothyroxine 150 mcg Tablet PO (06:04)
[2023-10-13] MEDS: heparin 5,000 unit/mL INJ 1 mL 5000 UNIT SUBCUT ×2 (06:04→17:18)
[2023-10-13] MEDS: acetaminophen 325 mg Tablet 650 MG PO ×2 (06:09→21:22)
[2023-10-13 06:25] LABS: Glucose Point of Care 189 mg/dL (70-110)
[2023-10-13] MEDS: insulin glargine 100 units/1 mL 8 UNIT SUBCUT (08:32)
[2023-10-13] MEDS: insulin lispro 100 unit/1 mL SUBCUT ×4 (08:33→21:22)
[2023-10-13] MEDS: fluconazole 100 mg Tablet PO (08:34)
[2023-10-13] MEDS: doxycycline 100 mg Tablet PO ×2 (08:34→17:18)
[2023-10-13] MEDS: polyethylene glycol 3350 Pkt 17 gm PO (08:35)
[2023-10-13] MEDS: docusate sodium 10 mg/mL (5ml) Liq 100 MG PO ×2 (08:49→17:17)
[2023-10-13] MEDS: collagenase oint 30 gm 1 APPLIC TOPICAL (08:58)
[2023-10-13 11:01] LABS: Glucose Point of Care 175 mg/dL (70-110)
[2023-10-13] MEDS: lactulose oral liq 20 gm/30 mL UDC PO ×2 (11:12→18:11)
--- NOTE | 2023-10-13 12:02 | PM.PN ---
Subjective Subjective: Patient was seen this morning, he doesnot feel well this morning, hasnot had a bowel movement, we discussed possibly myxedema coma as an etiology, denies any chest pain, but does report shortness of breath, no fever, no chills Vitals/I&O/Wt Last Vital Signs Temp 97.9 F 10/13/23 11:30 Pulse 95 10/13/23 11:30 Resp 20 H 10/13/23 11:30 BP 120/69 10/13/23 11:30 Pulse Ox 98 10/13/23 11:30 O2 Del Method BiPAP 10/13/23 11:30 O2 Flow Rate 3 10/13/23 08:03 FiO2 35 10/13/23 08:02 10/12/23 10/13/23 10/13/23 22:59 06:59 14:59 Intake Total 1060 / 1400 290 / 1690 650 / 650 Output Total 3135 / 3135 100 / 3235 Balance -2075 / -1735 190 / -1545 650 / 650 Weight last 48 hrs Weight 91.399 kg Weight 91.399 kg Weight 90.5 kg Weight 94.483 kg Weight 94.483 kg Physical Exam Const: COMMON NORMALS: no acute distress and patient oriented x3 Resp: COMMON NORMALS: normal respiratory effort, No retractions, No use of accessory muscles and clear to auscultation bilaterally AUSCULTATION: clear to auscultation bilaterally Cardio: COMMON NORMALS: regular rate, regular rhythm, S1 normal heart sound present and S2 normal heart sound present RATE: regular rate RHYTHM: regular rhythm HEART SOUNDS: S1 normal heart sound present and S2 normal heart sound present GI: COMMON NORMALS: Normal to inspection, nondistended, normoactive bowel sounds present and non-tender Extremity: COMMON NORMALS: no pedal edema Neuro: COMMON NORMALS: patient oriented x3 Psych: COMMON NORMALS: mental status grossly normal Urinary Catheter Management: Kincaid: Cath Placed During This Visit: yes Reason for Continuing Indwelling Catheter: Other Urinary Catheter Date of Insertion: 10/06/23 Urinary Catheter Time of Insertion: 14:22 Data 10/13/23 02:03 10/13/23 02:03 Micro: Microbiology 10/06/23 17:45 Gram Stain - Final Pleural Fluid Anaerobic Culture - Final Body Fluid Culture - Final 10/11/23 13:18 Urine Culture - Preliminary Urine,Clean Catch Yeast species A&P Assessment and plan (1) Exertional dyspnea: (2) SVT (supraventricular tachycardia): resolved I suspect it is related to #1 secondary to #3 and its impact on respiratory status. He received his usual metoprolol dosing, antibiotics and 1 dose of Lasix with clinical improvement. Has a history of atrial fibrillation with rapid ventricular response/atrial flutter during a prior hospital stay. Not on chronic anticoagulation due to concern about bleeding risk. Is on antiplatelet therapy with aspirin and Plavix. (3) Pleural effusion, right: (4) CKD (chronic kidney disease): Qualifiers: Chronic kidney disease stage: on chronic dialysis Qualified Code(s): N18.6 - End stage renal disease; Z99.2 - Dependence on renal dialysis (5) UTI (urinary tract infection): Present on admission. No reported dysuria but has had increased sediment and cloudiness noted at home. Qualifiers: Urinary tract infection type: acute cystitis Hematuria presence: without hematuria Qualified Code(s): N30.00 - Acute cystitis without hematuria (6) Atherosclerosis of coronary artery: Status post RCA stent x 3 in August of this year. Initial troponin 340. 2-hour troponin 336. Unknown baseline after prolonged hospital stay in August of this year when he had the cardiac intervention. No report of chest pain, primarily shortness of breath with palpitations and some transient lightheadedness. Cannot currently rule out a type II process but I suspect he has a baseline significant elevation in troponin currently. On chronic aspirin and Plavix along with beta-blockade. Intolerant of statin therapy. Has as needed nitroglycerin at home. Qualifiers: Coronary Disease-Associated Artery/Lesion type: [place] artery [place] vs. transplanted heart: [place] heart Associated angina: without angina Qualified Code(s): I25.10 - Atherosclerotic heart disease of [place] coronary artery without angina pectoris (7) Hypothyroidism: Suboptimally controlled with most recent TSH at 92. Dosing of levothyroxine was adjusted. Qualifiers: Hypothyroidism type: acquired Qualified Code(s): E03.9 - Hypothyroidism, unspecified (8) Diabetes mellitus with peripheral vascular disease: Insulin requiring. On both long and short acting insulin. (9) Chronic ulcer of toe of right foot with fat layer exposed: Follows with Dr. Baird (10) Pressure injury of sacral region, unstageable: Has regular wound care, currently receiving Santyl with dressing changes daily (11) Panic attacks: And difficulty sleeping. Has been tried on multiple medications none with any significant success. Hesitant to try new medications as he does not tolerate medicines the same way others do. Currently manageable. (12) Acute hypoxic respiratory failure: (13) Physical deconditioning: (14) Protein calorie malnutrition: (15) Myxedema coma: Plan Acute hypoxic respiratory failure ? Secondary to fluid overload, end-stage renal disease, systolic and diastolic CHF exacerbation ? Plan ? Continue inpatient dialysis, ? deescalate to doxycycline ? Follow blood cultures, follow respiratory viral panel ? Will monitor fluid status closely, next ?monitor creatinine monitor electrolytes Systolic CHF, ischemic cardiomyopathy ? As above Right pleural effusion ? Status post thoracocentesis , 900 cc removed ?appears transudative ? Follow-up culture studies, so far no growth End-stage renal disease on dialysis ? Continue dialysis History of COVID-19, prolonged intubation, prolonged hospitalization, ? Monitor History of CAD status post stenting x 3 Continue aspirin, Plavix Low blood pressure ? Likely requiring during dialysis Concerns for pneumonia ? CT of the chest showed right upper lobe groundglass infiltrates, with subsegmental atelectasis left lower lobe left pleural effusion ? 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 Consult dietary ? Continue protein shakes Type 2 diabetes mellitus, ? Continue insulin sliding scale Right lower extremity SVT ? Continue to monitor Sacral decubitus ulcer, DTI ? Continue offloading no ? Wound care Chronic ulcer of toe right foot ? Monitor Myxedema coma, TSH over 94, free T40.71, free T3 1.0 status post 1 dose Cytomel yesterday, his energy and strength and mentation have improved we will give another dose of Cytomel Now with UTI concerns for yeast UTI, resume meropenem, start Diflucan VTE prophylaxis: Subcut heparin GI Prophylaxis: PPI Antibiotics: , meropenem, diflucan Pending studies: Blood and urine cultures, thoracentesis, sputum so far no new growth Telemetry: Ordered secondary to arrhythmia at presentation Kincaid: Ordered secondary to need to monitor urine output and overall volume status closely Line(s): peripheral IVs, right upper chest dialysis catheter. I will note patient had a PICC line removed in September. Disposition plan: Currently anticipate discharge back home with home health care to include ongoing wound care, medication assistance, PT and OT. Followed by a [facility] home health care who sent him to the hospital today Code Status: Full Code Plan for today, will dose, bowel regimen Attestations Medical Necessity Statement*: patient requires hospitalization for fluid overload, concerns of myxedema coma, uti, yeast uti Diagnoses Exertional dyspnea R06.09 SVT (supraventricular tachycardia) I47.1 Pleural effusion, right J90 Stage 5 chronic kidney disease on chronic dialysis N18.6; Z99.2 Chronic kidney disease stage: on chronic dialysis Acute cystitis without hematuria N30.00 Urinary tract infection type: acute cystitis Hematuria presence: without hematuria Atherosclerosis of [place] coronary artery of [place] heart without angina pectoris I25.10 Coronary Disease-Associated Artery/Lesion type: [place] artery [place] vs. transplanted heart: [place] heart Associated angina: without angina Acquired hypothyroidism E03.9 Hypothyroidism type: acquired Diabetes mellitus with peripheral vascular disease E11.51 Chronic ulcer of toe of right foot with fat layer exposed L97.512 Pressure injury of sacral region, unstageable L89.150 Panic attacks F41.0 Acute hypoxic respiratory failure J96.01 Physical deconditioning R53.81 Protein calorie malnutrition E46 Myxedema coma E03.5
[2023-10-13] MEDS: liothyronine 5 mcg Tablet PO (12:12)
[2023-10-13] MEDS: magnesium hydroxide 30 mL UDC PO (12:33)
--- NOTE | 2023-10-13 12:35 | PC.PHAR ---
Renal dosing for Merrem 1000 mg q8h, changed to q12h based on CRCL of 27 and being <50 Thank you, Kyung Damian RPh
--- NOTE | 2023-10-13 13:38 | PC.SOCIAL ---
IMM Updated Updated pt & on IMM. No questions voiced. Provided pt a copy. Initialed, dated, & timed copy in chart.
[2023-10-13] MEDS: ALPRAZolam 0.5 mg Tablet 0.25 MG PO (14:39)
[2023-10-13 16:41] LABS: Glucose Point of Care 156 mg/dL (70-110)
--- NOTE | 2023-10-13 18:34 | PC.NURSE ---
SHIFT SUMMARY - Pt inquired about possible senior care placement, case management aware. is very adamant that she take him home, despite being bedbound. Pt has been on BiPap most of shift, except to eat. During mealtimes he becomes so anxious he is immediately placed back on the BiPap. Food intake is very little 0-25%. Multiple treatments given to encourage BM - MOM, lactulose, liquid Colace, and soap suds enema. Pt currently attempting BM on bedpan at this time. During this shift pt verbalizes he is anxious and breathing against BiPap. He asks for anxiety medication, but needed permission from the first to take it. is anxious and pacing around the room most of shift.
[2023-10-13 20:47] LABS: Glucose Point of Care 206 mg/dL (70-110)
[2023-10-13] MEDS: aspirin 81 mg EC Tablet PO (21:22)
[2023-10-13] MEDS: clopidogrel 75 mg Tablet PO (21:22)
[2023-10-13] MEDS: zolpidem 5 mg Tablet PO (21:22)
--- NOTE | 2023-10-13 22:34 | P.PN_ITS ---
Subjective 2 Subjective: on bipap Medications: Reviewed: Yes Vitals/I&O/Wt Last Vital Signs Temp 97.8 F 10/13/23 20:08 Pulse 91 10/13/23 20:08 Resp 18 10/13/23 20:08 BP 116/69 10/13/23 20:08 Pulse Ox 93 10/13/23 20:08 O2 Del Method BiPAP 10/13/23 20:08 O2 Flow Rate 3 10/13/23 08:03 FiO2 35 10/13/23 20:00 10/13/23 10/13/23 10/13/23 06:59 14:59 22:59 Intake Total 290 / 1690 650 / 650 480 / 1130 Output Total 100 / 3235 Balance 190 / -1545 650 / 650 480 / 1130 Weight last 48 hrs Weight 91.399 kg Weight 91.399 kg Weight 90.5 kg Weight 94.483 kg Weight 94.483 kg Physical Exam 2 Narrative: awake , alert no distress + edema Urinary Catheter Management: Kincaid: Cath Placed During This Visit: yes Reason for Continuing Indwelling Catheter: Other Urinary Catheter Date of Insertion: 10/06/23 Urinary Catheter Time of Insertion: 14:22 Data 10/13/23 02:03 10/13/23 02:03 Micro: Microbiology 10/06/23 17:45 Gram Stain - Final Pleural Fluid Anaerobic Culture - Final Body Fluid Culture - Final A&P Assessment and plan (1) End-stage renal disease on hemodialysis: Plan 1. End-stage renal disease: On TTS schedule as outpatient but patient presented with volume overload and respiratory distress HD tomorrow 2. Large right pleural effusion, S/P thoracentesis 3. Hypertension: Restart home meds 4. History of coronary artery disease and stents 5. History of atrial fibrillation 6. Anemia, RAUL with hd 7. Acute on chronic resp failure - on bipap Patient evaluated using audiovisual cart. Time spent 20 minutes. Attestations 2 Medical Necessity Statement*: per lucy Coding Level of Care Code Acute Code for Chg Fwd Diagnoses End-stage renal disease on hemodialysis N18.6; Z99.2
[2023-10-14] VITALS (16 sets, daily range): BP systolic 109–163; BP diastolic 64–77; PULSE 87–96; RESP 17–33; TEMP 36.4–37; O2SAT 98–100
[2023-10-14 05:19] LABS: Basophils # 0.1 10^3/uL (0.0-0.1); Eosinophils # 0.5 10^3/uL (0.0-0.8); Eosinophils % 5.5 %; Hematocrit 32.4 % (37-53); Lymphocytes # 3.7 10^3/uL (0.8-4.8); Lymphocytes % 37.7 %; Mean Corpuscular HGB Conc 29.9 g/dL (30-55); Mean Corpuscular Hemoglobin 29.1 pg (27-33); Mean Corpuscular Volume 97.3 fl (82-101); Mean Platelet Volume 9.3 fL (7.4-10.4); Monocytes # 0.9 10^3/uL (0.2-0.9); Monocytes % 8.9 %; Neutrophils # 4.54 10^3/uL (1.8-7.7); Neutrophils % 46.5 %; Nucleated Red Blood Cells % 0 %; Platelet Count 275 10^3/cmm (157-399); Red Blood Count 3.33 10^6/uL (3.85-5.65); Red Cell Distribution Width 14.5 % (12.1-15.1); White Blood Count 9.77 10^3/uL (3.29-11.43)
[2023-10-14] MEDS: levothyroxine 150 mcg Tablet PO (06:00)
[2023-10-14] MEDS: heparin 5,000 unit/mL INJ 1 mL 5000 UNIT SUBCUT ×2 (06:00→17:14)
[2023-10-14 06:02] LABS: Free T4 Free Thyroxine 0.76 ng/dL (0.82-1.77); T3 Free 1.2 PG/ML (2.0-4.4); Thyroid Stimulating Hormone 54.05 uIU/mL (0.27-4.20)
[2023-10-14 06:03] LABS: Alanine Aminotransferase 7 U/L (0-41); Albumin Level 3.6 g/dL (3.5-5.2); Alkaline Phosphatase 82 U/L (40-130); Anion Gap 11.6 (5-19); Aspartate Amino Transferase 14 U/L (0-40); Blood Urea Nitrogen 42 mg/dL (8-23); Calcium 8.7 mg/dL (8.5-10.5); Carbon Dioxide 31 mmol/L (22-29); Chloride 97 mmol/L (98-107); Creatinine Clr Calc Pharmacy 23.3368; Globulin 2.2 g/dL (1.3-4.6); Glucose 101 mg/dL (65-115); Magnesium 2.2 mg/dL (1.7-2.3); NT Pro B Type Natriuretic Pept 33382 pg/mL (0-125); Osmolality Calculated 291 mOsm/kg (285-295); Phosphorus 2.5 mg/dL (2.5-4.5); Potassium 4.6 mmol/L (3.5-5.1); Sodium 135 mmol/L (136-145); Total Bilirubin 0.3 mg/dL (0.15-1.2); Total Protein 5.8 g/dL (6.6-8.7)
[2023-10-14 06:04] LABS: Glucose Point of Care 104 mg/dL (70-110)
--- NOTE | 2023-10-14 07:49 | PC.HD ---
HD catheter dressing changed. Catheter insertion and stitching sites were noted to be reddened, with a small amount of alberto, dried, exudate at catheter insertion site. Area was cleansed well with Chloraprep and triple antibiotic ointment applied. [employer] Assembly Supervisor notified. Heparin 1000 units loading dose administered at 0738 per pulley man's orders.
--- NOTE | 2023-10-14 09:09 | P.PN_ITS ---
Subjective 2 Subjective: getting hD Medications: Reviewed: Yes Vitals/I&O/Wt Last Vital Signs Temp 98.2 F 10/14/23 07:47 Pulse 96 10/14/23 07:47 Resp 18 10/14/23 07:47 BP 153/74 10/14/23 07:47 Pulse Ox 100 10/14/23 07:36 O2 Del Method BiPAP 10/14/23 07:36 O2 Flow Rate 3 10/13/23 08:03 FiO2 35 10/14/23 04:00 10/13/23 10/14/23 10/14/23 22:59 06:59 14:59 Intake Total 530 / 1180 Output Total 100 / 100 Balance 530 / 1180 -100 / 1080 Weight last 48 hrs Weight 90.492 kg Weight 91.399 kg Weight 91.399 kg Weight 90.5 kg Physical Exam 2 Narrative: awake , alert no distress + edema Urinary Catheter Management: Kincaid: Cath Placed During This Visit: yes Reason for Continuing Indwelling Catheter: Other Urinary Catheter Date of Insertion: 10/06/23 Urinary Catheter Time of Insertion: 14:22 Data 10/14/23 04:18 10/14/23 04:18 Micro: Microbiology 10/06/23 17:45 Gram Stain - Final Pleural Fluid Anaerobic Culture - Final Body Fluid Culture - Final A&P Assessment and plan (1) End-stage renal disease on hemodialysis: Plan 1. End-stage renal disease: On TTS schedule as outpatient but patient presented with volume overload and respiratory distress HD today, maximize UF as tolerated 2. Large right pleural effusion, S/P thoracentesis 3. Hypertension: Restart home meds 4. History of coronary artery disease and stents 5. History of atrial fibrillation 6. Anemia, RAUL with hd 7. Acute on chronic resp failure - on bipap Patient evaluated using audiovisual cart. Time spent 20 minutes. Attestations 2 Medical Necessity Statement*: per lucy Coding Level of Care Code Acute Code for Chg Fwd Diagnoses End-stage renal disease on hemodialysis N18.6; Z99.2
[2023-10-14 09:57] LABS: Glucose Point of Care 123 mg/dL (70-110)
--- NOTE | 2023-10-14 10:44 | PC.NURSE ---
Pt left for dialysis at 0730. All morning meds are delayed until pt returns from dialysis.
[2023-10-14] MEDS: insulin glargine 100 units/1 mL 8 UNIT SUBCUT (11:02)
[2023-10-14] MEDS: docusate sodium 10 mg/mL (5ml) Liq 100 MG PO (11:03)
[2023-10-14] MEDS: fluconazole 100 mg Tablet PO (11:03)
[2023-10-14] MEDS: liothyronine 5 mcg Tablet PO (11:03)
[2023-10-14] MEDS: doxycycline 100 mg Tablet PO ×2 (11:03→17:14)
[2023-10-14] MEDS: meropenem 1,000 MG in sodium chloride 0.9% (plus) 50 ML 100 MG IV ×2 (11:04→21:00)
[2023-10-14] MEDS: polyethylene glycol 3350 Pkt 17 gm PO (11:04)
[2023-10-14 11:15] LABS: Glucose Point of Care 102 mg/dL (70-110)
[2023-10-14] MEDS: acetaminophen 325 mg Tablet 650 MG PO ×2 (11:21→21:00)
--- NOTE | 2023-10-14 11:27 | PM.PN ---
Subjective Subjective: Patient was seen this morning, currently in dialysis, he tells me that he had a bowel movement overnight, but he continues to feel fatigued and tired, no cough, no fevers, currently on BiPAP receiving dialysis Vitals/I&O/Wt Last Vital Signs Temp 98.2 F 10/14/23 07:47 Pulse 96 10/14/23 07:47 Resp 18 10/14/23 07:47 BP 153/74 10/14/23 07:47 Pulse Ox 100 10/14/23 07:36 O2 Del Method BiPAP 10/14/23 07:36 O2 Flow Rate 3 10/13/23 08:03 FiO2 35 10/14/23 04:00 10/13/23 10/14/23 10/14/23 22:59 06:59 14:59 Intake Total 530 / 1180 Output Total 100 / 100 Balance 530 / 1180 -100 / 1080 Weight last 48 hrs Weight 90.492 kg Weight 91.399 kg Weight 91.399 kg Weight 90.5 kg Physical Exam Const: COMMON NORMALS: no acute distress and patient oriented x3 Resp: COMMON NORMALS: normal respiratory effort, No retractions, No use of accessory muscles and clear to auscultation bilaterally AUSCULTATION: clear to auscultation bilaterally Cardio: COMMON NORMALS: regular rate, regular rhythm, S1 normal heart sound present and S2 normal heart sound present RATE: regular rate RHYTHM: regular rhythm HEART SOUNDS: S1 normal heart sound present and S2 normal heart sound present GI: COMMON NORMALS: Normal to inspection, nondistended, normoactive bowel sounds present and non-tender Extremity: COMMON NORMALS: no pedal edema Neuro: COMMON NORMALS: patient oriented x3 Psych: COMMON NORMALS: mental status grossly normal Urinary Catheter Management: Kincaid: Cath Placed During This Visit: yes Reason for Continuing Indwelling Catheter: Other Urinary Catheter Date of Insertion: 10/06/23 Urinary Catheter Time of Insertion: 14:22 Data 10/14/23 04:18 10/14/23 04:18 Micro: Microbiology 10/06/23 17:45 Gram Stain - Final Pleural Fluid Anaerobic Culture - Final Body Fluid Culture - Final A&P Assessment and plan (1) Exertional dyspnea: (2) SVT (supraventricular tachycardia): resolved I suspect it is related to #1 secondary to #3 and its impact on respiratory status. He received his usual metoprolol dosing, antibiotics and 1 dose of Lasix with clinical improvement. Has a history of atrial fibrillation with rapid ventricular response/atrial flutter during a prior hospital stay. Not on chronic anticoagulation due to concern about bleeding risk. Is on antiplatelet therapy with aspirin and Plavix. (3) Pleural effusion, right: (4) CKD (chronic kidney disease): Qualifiers: Chronic kidney disease stage: on chronic dialysis Qualified Code(s): N18.6 - End stage renal disease; Z99.2 - Dependence on renal dialysis (5) UTI (urinary tract infection): Present on admission. No reported dysuria but has had increased sediment and cloudiness noted at home. Qualifiers: Urinary tract infection type: acute cystitis Hematuria presence: without hematuria Qualified Code(s): N30.00 - Acute cystitis without hematuria (6) Atherosclerosis of coronary artery: Status post RCA stent x 3 in August of this year. Initial troponin 340. 2-hour troponin 336. Unknown baseline after prolonged hospital stay in August of this year when he had the cardiac intervention. No report of chest pain, primarily shortness of breath with palpitations and some transient lightheadedness. Cannot currently rule out a type II process but I suspect he has a baseline significant elevation in troponin currently. On chronic aspirin and Plavix along with beta-blockade. Intolerant of statin therapy. Has as needed nitroglycerin at home. Qualifiers: Coronary Disease-Associated Artery/Lesion type: [place] artery [place] vs. transplanted heart: [place] heart Associated angina: without angina Qualified Code(s): I25.10 - Atherosclerotic heart disease of [place] coronary artery without angina pectoris (7) Hypothyroidism: Suboptimally controlled with most recent TSH at 92. Dosing of levothyroxine was adjusted. Qualifiers: Hypothyroidism type: acquired Qualified Code(s): E03.9 - Hypothyroidism, unspecified (8) Diabetes mellitus with peripheral vascular disease: Insulin requiring. On both long and short acting insulin. (9) Chronic ulcer of toe of right foot with fat layer exposed: Follows with Dr. Baird (10) Pressure injury of sacral region, unstageable: Has regular wound care, currently receiving Santyl with dressing changes daily (11) Panic attacks: And difficulty sleeping. Has been tried on multiple medications none with any significant success. Hesitant to try new medications as he does not tolerate medicines the same way others do. Currently manageable. (12) Acute hypoxic respiratory failure: (13) Physical deconditioning: (14) Protein calorie malnutrition: (15) Myxedema coma: Plan Acute hypoxic respiratory failure ? Secondary to fluid overload, end-stage renal disease, systolic and diastolic CHF exacerbation ? Plan ? Continue inpatient dialysis, ? deescalate to doxycycline ? Follow blood cultures, follow respiratory viral panel ? Will monitor fluid status closely, next ?monitor creatinine monitor electrolytes Systolic CHF, ischemic cardiomyopathy ? As above Right pleural effusion ? Status post thoracocentesis , 900 cc removed ?appears transudative ? Follow-up culture studies, so far no growth End-stage renal disease on dialysis ? Continue dialysis History of COVID-19, prolonged intubation, prolonged hospitalization, ? Monitor History of CAD status post stenting x 3 Continue aspirin, Plavix Low blood pressure ? Likely requiring during dialysis Concerns for pneumonia ? CT of the chest showed right upper lobe groundglass infiltrates, with subsegmental atelectasis left lower lobe left pleural effusion ? 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 Consult dietary ? Continue protein shakes Type 2 diabetes mellitus, ? Continue insulin sliding scale Right lower extremity SVT ? Continue to monitor Sacral decubitus ulcer, DTI ? Continue offloading no ? Wound care Chronic ulcer of toe right foot ? Monitor Myxedema coma, TSH over 94, free T40.71, free T3 1.0 status post 1 dose Cytomel yesterday, his energy and strength and mentation have improved we will give another dose of Cytomel Now with UTI concerns for yeast UTI, resume meropenem, start Diflucan VTE prophylaxis: Subcut heparin GI Prophylaxis: PPI Antibiotics: , meropenem, diflucan Pending studies: Blood and urine cultures, thoracentesis, sputum so far no new growth Telemetry: Ordered secondary to arrhythmia at presentation Kincaid: Ordered secondary to need to monitor urine output and overall volume status closely Line(s): peripheral IVs, right upper chest dialysis catheter. I will note patient had a PICC line removed in September. Disposition plan: Currently anticipate discharge back home with home health care to include ongoing wound care, medication assistance, PT and OT. Followed by a [facility] home health care who sent him to the hospital today Code Status: Full Code Plan for today, TSH remains in the high 40s will give another dose of Cytomel, continue meropenem, continue doxycycline continue to Diflucan will get dialysis, receiving BiPAP Attestations Medical Necessity Statement*: Patient requires hospitalization for respiratory failure requiring dialysis, BiPAP therapy, UTI requiring meropenem, concerns for myxedema coma requiring Cytomel Diagnoses Exertional dyspnea R06.09 SVT (supraventricular tachycardia) I47.1 Pleural effusion, right J90 Stage 5 chronic kidney disease on chronic dialysis N18.6; Z99.2 Chronic kidney disease stage: on chronic dialysis Acute cystitis without hematuria N30.00 Urinary tract infection type: acute cystitis Hematuria presence: without hematuria Atherosclerosis of [place] coronary artery of [place] heart without angina pectoris I25.10 Coronary Disease-Associated Artery/Lesion type: [place] artery [place] vs. transplanted heart: [place] heart Associated angina: without angina Acquired hypothyroidism E03.9 Hypothyroidism type: acquired Diabetes mellitus with peripheral vascular disease E11.51 Chronic ulcer of toe of right foot with fat layer exposed L97.512 Pressure injury of sacral region, unstageable L89.150 Panic attacks F41.0 Acute hypoxic respiratory failure J96.01 Physical deconditioning R53.81 Protein calorie malnutrition E46 Myxedema coma E03.5
[2023-10-14] MEDS: collagenase oint 30 gm 1 APPLIC TOPICAL (12:29)
[2023-10-14 17:05] LABS: Glucose Point of Care 186 mg/dL (70-110)
[2023-10-14] MEDS: docusate sodium 100 mg Capsule PO (17:14)
[2023-10-14] MEDS: insulin lispro 100 unit/1 mL SUBCUT ×2 (17:14→21:00)
[2023-10-14 20:34] LABS: Glucose Point of Care 263 mg/dL (70-110)
[2023-10-14] MEDS: zolpidem 5 mg Tablet PO (21:00)
[2023-10-14] MEDS: clopidogrel 75 mg Tablet PO (21:00)
[2023-10-14] MEDS: aspirin 81 mg EC Tablet PO (21:00)
[2023-10-14] MEDS: ALPRAZolam 0.5 mg Tablet 0.25 MG PO (21:07)
[2023-10-15] VITALS (8 sets, daily range): BP systolic 119–122; BP diastolic 69–72; PULSE 89–96; RESP 18–26; TEMP 36.4–36.6; O2SAT 98–100
[2023-10-15 00:04] LABS: Glucose Point of Care 168 mg/dL (70-110)
[2023-10-15] MEDS: levothyroxine 150 mcg Tablet PO (05:12)
[2023-10-15] MEDS: heparin 5,000 unit/mL INJ 1 mL 5000 UNIT SUBCUT (05:12)
[2023-10-15 05:13] LABS: Hematocrit 33.2 % (37-53); Mean Corpuscular HGB Conc 29.8 g/dL (30-55); Mean Corpuscular Hemoglobin 29.1 pg (27-33); Mean Corpuscular Volume 97.6 fl (82-101); Mean Platelet Volume 9.3 fL (7.4-10.4); Platelet Count 290 10^3/cmm (157-399); Red Cell Distribution Width 14.5 % (12.1-15.1); White Blood Count 9.99 10^3/uL (3.29-11.43)
[2023-10-15 05:48] LABS: Alanine Aminotransferase 7 U/L (0-41); Albumin Level 3.6 g/dL (3.5-5.2); Alkaline Phosphatase 87 U/L (40-130); Anion Gap 13.7 (5-19); Aspartate Amino Transferase 14 U/L (0-40); Blood Urea Nitrogen 33 mg/dL (8-23); Calcium 8.5 mg/dL (8.5-10.5); Carbon Dioxide 31 mmol/L (22-29); Chloride 95 mmol/L (98-107); Creatinine Clr Calc Pharmacy 27.4108; Globulin 2.3 g/dL (1.3-4.6); Glucose 106 mg/dL (65-115); Magnesium 2.2 mg/dL (1.7-2.3); Osmolality Calculated 288 mOsm/kg (285-295); Phosphorus 2.7 mg/dL (2.5-4.5); Potassium 4.7 mmol/L (3.5-5.1); Sodium 135 mmol/L (136-145); Total Bilirubin 0.3 mg/dL (0.15-1.2); Total Protein 5.9 g/dL (6.6-8.7)
[2023-10-15 05:51] LABS: Slide Review Slide Review Perform
[2023-10-15 05:52] LABS: Absolute Eosinophils 0.2 10^3/cmm (0.0-0.7); Absolute Segmented Neutrophil 4.8 10/cmm (1.6-7.1); Anisocytosis 1+; Eosinophils 2 %; Lymphocytes 26 %; Lymphocytes Absolute 4.2 10^3/cmm (1.2-3.4); Monocytes Absolute 0.8 10^3/cmm (0.1-0.6); Platelet Estimate Normal (Normal); Segmented Neutrophils 48 %; Total Cells Counted 100 (0-100)
[2023-10-15 06:18] LABS: Glucose Point of Care 117 mg/dL (70-110)
[2023-10-15 06:37] LABS: NT Pro B Type Natriuretic Pept 27569 pg/mL (0-125)
[2023-10-15] MEDS: collagenase oint 30 gm 1 APPLIC TOPICAL (07:54)
[2023-10-15] MEDS: fluconazole 100 mg Tablet PO (07:54)
[2023-10-15] MEDS: doxycycline 100 mg Tablet PO (07:54)
[2023-10-15] MEDS: insulin glargine 100 units/1 mL 8 UNIT SUBCUT (07:54)
[2023-10-15] MEDS: docusate sodium 100 mg Capsule PO (07:54)
[2023-10-15] MEDS: meropenem 1,000 MG in sodium chloride 0.9% (plus) 50 ML 100 MG IV (07:55)
[2023-10-15] MEDS: polyethylene glycol 3350 Pkt 17 gm PO ×2 (08:08)
[2023-10-15] MEDS: acetaminophen 325 mg Tablet 650 MG PO (08:12)
[2023-10-15 08:30] LABS: Free T4 Free Thyroxine 0.83 ng/dL (0.82-1.77); T3 Free 1.2 PG/ML (2.0-4.4); Thyroid Stimulating Hormone 55.38 uIU/mL (0.27-4.20)
--- NOTE | 2023-10-15 10:02 | P.PN_ITS ---
Subjective 2 Subjective: on 2.5 L NC Medications: Reviewed: Yes Vitals/I&O/Wt Last Vital Signs Temp 97.8 F 10/15/23 07:48 Pulse 93 10/15/23 07:53 Resp 20 H 10/15/23 07:53 BP 119/71 10/15/23 07:48 Pulse Ox 100 10/15/23 07:53 O2 Del Method BiPAP 10/15/23 07:53 O2 Flow Rate 35 10/15/23 07:53 FiO2 35 10/15/23 07:52 10/14/23 10/15/23 10/15/23 22:59 06:59 14:59 Intake Total 170 / 640 120 / 760 410 / 410 Output Total 250 / 3326 50 / 3376 Balance -80 / -2686 70 / -2616 410 / 410 Weight last 48 hrs Weight 90.718 kg Weight 90.718 kg Weight 87.5 kg Weight 90.492 kg Physical Exam 2 Narrative: awake , alert no distress + edema Urinary Catheter Management: Kincaid: Cath Placed During This Visit: yes Reason for Continuing Indwelling Catheter: Other Urinary Catheter Date of Insertion: 10/06/23 Urinary Catheter Time of Insertion: 14:22 Data 10/15/23 04:15 10/15/23 04:15 Micro: Microbiology 10/11/23 13:18 Urine Culture - Final Urine,Clean Catch Miriam albicans A&P Assessment and plan (1) End-stage renal disease on hemodialysis: Plan 1. End-stage renal disease: On TTS schedule as outpatient but patient presented with volume overload and respiratory distress HD tomorrow , maximize UF as tolerated 2. Large right pleural effusion, S/P thoracentesis 3. Hypertension: Restart home meds 4. History of coronary artery disease and stents 5. History of atrial fibrillation 6. Anemia, RAUL with hd 7. Acute on chronic resp failure - on bipap Patient evaluated using audiovisual cart. Time spent 20 minutes. Attestations 2 Medical Necessity Statement*: per lucy Coding Level of Care Code Acute Code for Chg Fwd Diagnoses End-stage renal disease on hemodialysis N18.6; Z99.2
--- NOTE | 2023-10-15 10:55 | PC.SOCIAL ---
IMM Updated Updated pt & family on IMM. No questions voiced. Provided pt a copy. Initialed, dated, & timed copy in chart.
--- NOTE | 2023-10-15 11:24 | P.PN_ITS ---
Subjective 2 Subjective: Patient was seen this morning, is at bedside, denies any fevers, chills, no cough, he does report feeling down and depressed, denies any suicidal ideation, no homicidal ideation, he has not had a bowel movement today Vitals/I&O/Wt Last Vital Signs Temp 97.6 F 10/15/23 11:22 Pulse 96 10/15/23 11:22 Resp 18 10/15/23 11:22 BP 119/69 10/15/23 11:22 Pulse Ox 98 10/15/23 11:22 O2 Del Method Nasal Cannula 10/15/23 11:22 O2 Flow Rate 35 10/15/23 07:53 FiO2 35 10/15/23 07:52 10/14/23 10/15/23 10/15/23 22:59 06:59 14:59 Intake Total 170 / 640 120 / 760 410 / 410 Output Total 250 / 3326 50 / 3376 Balance -80 / -2686 70 / -2616 410 / 410 Weight last 48 hrs Weight 90.718 kg Weight 90.718 kg Weight 87.5 kg Weight 90.492 kg Physical Exam 2 Const: COMMON NORMALS: no acute distress and patient oriented x3 Resp: COMMON NORMALS: normal respiratory effort, No retractions, No use of accessory muscles and clear to auscultation bilaterally AUSCULTATION: clear to auscultation bilaterally Cardio: COMMON NORMALS: regular rate, regular rhythm, S1 normal heart sound present and S2 normal heart sound present RATE: regular rate RHYTHM: r egular rhythm HEART SOUNDS: S1 normal heart sound present and S2 normal heart sound present GI: COMMON NORMALS: Normal to inspection, nondistended, normoactive bowel sounds present and non-tender Extremity: COMMON NORMALS: no pedal edema Neuro: COMMON NORMALS: patient oriented x3 Psych: COMMON NORMALS: mental status grossly normal Urinary Catheter Management: Kincaid: Cath Placed During This Visit: yes Reason for Continuing Indwelling Catheter: Other Urinary Catheter Date of Insertion: 10/06/23 Urinary Catheter Time of Insertion: 14:22 Data 10/15/23 04:15 10/15/23 04:15 Micro: Microbiology 10/11/23 13:18 Urine Culture - Final Urine,Clean Catch Miriam albicans A&P Assessment and plan (1) Exertional dyspnea: (2) SVT (supraventricular tachycardia): resolved I suspect it is related to #1 secondary to #3 and its impact on respiratory status. He received his usual metoprolol dosing, antibiotics and 1 dose of Lasix with clinical improvement. Has a history of atrial fibrillation with rapid ventricular response/atrial flutter during a prior hospital stay. Not on chronic anticoagulation due to concern about bleeding risk. Is on antiplatelet therapy with aspirin and Plavix. (3) Pleural effusion, right: (4) CKD (chronic kidney disease): Qualifiers: Chronic kidney disease stage: on chronic dialysis Qualified Code(s): N 18.6 - End stage renal disease; Z99.2 - Dependence on renal dialysis (5) UTI (urinary tract infection): Present on admission. No reported dysuria but has had increased sediment and cloudiness noted at home. Qualifiers: Urinary tract infection type: acute cystitis Hematuria presence: w ithout hematuria Qualified Code(s): N30.00 - Acute cystitis without hematuria (6) Atherosclerosis of coronary artery: Status post RCA stent x 3 in August of this year. Initial troponin 340. 2- hour troponin 336. Unknown baseline after prolonged hospital stay in August of this year when he had the cardiac intervention. No report of chest pain, primarily shortness of breath with palpitations and some transient lightheadedness. Cannot currently rule out a type II process but I suspect he has a baseline significant elevation in troponin currently. On chronic aspirin and Plavix along with beta-blockade. Intolerant of statin therapy. Has as needed nitroglycerin at home. Qualifiers: Coronary Disease-Associated Artery/Lesion type: [place] artery [place] vs. transplanted heart: [place] heart Associated angina: without angina Qualified Code(s): I25.10 - Atherosclerotic heart disease of [place] coronary artery without angina pectoris (7) Hypothyroidism: Suboptimally controlled with most recent TSH at 92. Dosing of levothyroxine was adjusted. Qualifiers: Hypothyroidism type: acquired Qualified Code(s): E03.9 - Hypothyroidism, unspecified (8) Diabetes mellitus with peripheral vascular disease: Insulin requiring. On both long and short acting insulin. (9) Chronic ulcer of toe of right foot with fat layer exposed: Follows with Dr. Baird (10) Pressure injury of sacral region, unstageable: Has regular wound care, currently receiving Santyl with dressing changes daily (11) Panic attacks: And difficulty sleeping. Has been tried on multiple medications none with any significant success. Hesitant to try new medications as he does not tolerate medicines the same way others do. Currently manageable. (12) Acute hypoxic respiratory failure: (13) Physical deconditioning: (14) Protein calorie malnutrition: (15) Myxedema coma: Plan Acute hypoxic respiratory failure ? Secondary to fluid overload, end-stage renal disease, systolic and diastolic CHF exacerbation ? Plan ? Continue inpatient dialysis, ? doxycycline ? Follow blood cultures, follow respiratory viral panel ? Will monitor fluid status closely, next ?monitor creatinine monitor electrolytes Systolic CHF, ischemic cardiomyopathy ? As above Right pleural effusion ? Status post thoracocentesis , 900 cc removed ?appears transudative ? Follow-up culture studies, so far no growth End-stage renal disease on dialysis ? Continue dialysis History of COVID-19, prolonged intubation, prolonged hospitalization, ? Monitor History of CAD status post stenting x 3 Continue aspirin, Plavix Low blood pressure ? Likely requiring during dialysis Concerns for pneumonia ? CT of the chest showed right upper lobe groundglass infiltrates, with subsegmental atelectasis left lower lobe left pleural effusion ? 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 Consult dietary ? Continue protein shakes Type 2 diabetes mellitus, ? Continue insulin sliding scale Right lower extremity SVT ? Continue to monitor Sacral decubitus ulcer, DTI ? Continue offloading no ? Wound care Chronic ulcer of toe right foot ? Monitor Myxedema coma, TSH over 94, free T40.71, free T3 1.0 status post 1 dose Cytomel yesterday,will give 1 dose of levothyroxine Now with UTI concerns for yeast UTI, Diflucan VTE prophylaxis: Subcut heparin GI Prophylaxis: PPI Antibiotics: , nhan Pending studies: Blood and urine cultures, thoracentesis, sputum so far no new growth Telemetry: Ordered secondary to arrhythmia at presentation Kincaid: Ordered secondary to need to monitor urine output and overall volume status closely Line(s): peripheral IVs, right upper chest dialysis catheter. I will note patient had a PICC line removed in September. Disposition plan: Currently anticipate discharge back home with home health care to include ongoing wound care, medication assistance, PT and OT. Followed by a [facility] home health care who sent him to the hospital today Code Status: Full Code Plan for today, monitor respiratory status Attestations 2 Medical Necessity Statement*: Patient requires hospitalization fluid overload requiring dialysis Diagnoses Exertional dyspnea R06.09 SVT (supraventricular tachycardia) I47.1 Pleural effusion, right J90 Stage 5 chronic kidney disease on chronic dialysis N18.6; Z99.2 Chronic kidney disease stage: on chronic dialysis Acute cystitis without hematuria N30.00 Urinary tract infection type: acute cystitis Hematuria presence: without hematuria Atherosclerosis of [place] coronary artery of [place] heart without angina pectoris I25.10 Coronary Disease-Associated Artery/Lesion type: [place] artery [place] vs. transplanted heart: [place] heart Associated angina: without angina Acquired hypothyroidism E03.9 Hypothyroidism type: acquired Diabetes mellitus with peripheral vascular disease E11.51 Chronic ulcer of toe of right foot with fat layer exposed L97.512 Pressure injury of sacral region, unstageable L89.150 Panic attacks F41.0 Acute hypoxic respiratory failure J96.01 Physical deconditioning R53.81 Protein calorie malnutrition E46 Myxedema coma E03.5
[2023-10-15 11:33] LABS: Glucose Point of Care 286 mg/dL (70-110)
[2023-10-15] MEDS: insulin lispro 100 unit/1 mL SUBCUT (12:12)
[2023-10-15] MEDS: lactulose oral liq 20 gm/30 mL UDC 30 GM PO (12:14)
--- NOTE | 2023-10-15 12:17 | P.DS_ITS ---
Discharge Providers Date of Admission: 10/06/23 14:22 Date of Discharge: October 15, 2023 Attending Provider at Admission: Roseline Parson MD Attending Provider at Discharge: Vitaly Leyva MD Primary Care Provider: Evelin Jenkins DO Diagnoses at Discharge Discharge Diagnosis (1) Exertional dyspnea: Status: Acute (2) SVT (supraventricular tachycardia): Status: Acute (3) Pleural effusion, right: Status: Acute (4) CKD (chronic kidney disease): Status: Chronic Qualifiers: Chronic kidney disease stage: on chronic dialysis Qualified Code(s): N18.6 - End stage renal disease; Z99.2 - Dependence on renal dialysis (5) UTI (urinary tract infection): Status: Acute Qualifiers: Urinary tract infection type: acute cystitis Hematuria presence: without hematuria Qualified Code(s): N30.00 - Acute cystitis without hematuria (6) Atherosclerosis of coronary artery: Status: Chronic Qualifiers: Coronary Disease-Associated Artery/Lesion type: [place] artery [place] vs. 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 Mr. Alvarez has had a significant medical history over the last 6 months or so. He was last hospitalized here in June and July 2023. At that time he had hyperkalemia and evidence of acute kidney injury along with hypercapnic respiratory failure requiring BiPAP. He also developed atrial fibrillation with rapid ventricular response along with increasing volume overload. He required initiation of hemodialysis. There was also concern for acute coronary syndrome but further evaluation was not undertaken due to kidney dysfunction and lack of chest pain. He followed up with his primary care provider and had home health care. In August he presented to the emergency room again after an out of hospital cardiac arrest with return of spontaneous circulation. He was transferred to [facility] due to lack of ICU beds here. He was intubated there for 17 days. Outside records reviewed and he was covid positive then, received remdesivir and dexamethasoneDuring his hospital stay he required dialysis, diuresis and ultimately underwent cardiac catheterization with subsequent percutaneous intervention. Review of stent cards show that he had 3 drug-eluting stents placed in the RCA. 2 days after this procedure he was able to be extubated. He was quite deconditioned but has generally done okay since then. He does have pressure injury to the sacral area that is still requiring treatment and he still requires significant assistance with activities of daily living but had gotten to where he could stand up a bit on his own to assist in this. Over the last few days patient and his have noticed gradually worsening increased work of breathing. Home health nurses come out regularly. He had a low-grade temperature 1 day. No significant cough. Not necessarily experiencing significant edema. Oxygen saturations have been doing okay. He is usually on 3 L by nasal cannula during the day and is on BiPAP at night. Today when home health came out, they noted that Mr. Alvarez heart rate was quite high and that his work of breathing was much worse than it has been. According to his symptoms began maybe 10 minutes after he took his metoprolol dose this morning. She does not know if it had anything to do with it but did note this in talking with me. No reports of any chest pain. On arrival to the emergency room heart rate in the 130s. Normally heart rate is normal per his . Blood pressures dropped transiently but ultimately improved. Patient required initiation of BiPAP in route due to difficulty breathing. Usual dialysis schedule is Tuesdays, and Saturdays with last session on Friday. No significant change in diet or changes to medications. He is not on any diuretics. Unknown if had significant weight gain. Typically sleeps with some elevation in the bed. This patient was admitted to [facility] for acute hypoxic respiratory failure secondary fluid overload end-stage renal disease systolic diastolic CHF exacerbation, received inpatient dialysis, overall clinically improved For his right pleural effusion status post thoracocentesis, For concerns for pneumonia he was managed with broad-spectrum antibiotic therapy, discharged on doxycycline For concerns for myxedema coma, received Cytomel during his hospitalization levothyroxine dose has been increased to 175 mcg once daily, please recheck TSH in 1 week 4 sacral decubitus ulcer and DTI, continue repositioning, continue to monitor closely For Miriam UTI discharged on Diflucan Physical Exam Const: COMMON NORMALS: no acute distress and patient oriented x3 Resp: COMMON NORMALS: normal respiratory effort, No retractions, No use of accessory muscles and clear to auscultation bilaterally AUSCULTATION: clear to auscultation bilaterally Cardio: COMMON NORMALS: regular rate, regular rhythm, S1 normal heart sound present and S2 normal heart sound present RATE: regular rate RHYTHM: regular rhythm HEART SOUNDS: S1 normal heart sound present and S2 normal heart sound present GI: COMMON NORMALS: Normal to inspection, nondistended, normoactive bowel sounds present and non-tender Extremity: COMMON NORMALS: no pedal edema Neuro: COMMON NORMALS: patient oriented x3 Psych: COMMON NORMALS: mental status grossly normal Urinary Catheter Management: [place]: Cath Placed During This Visit: yes Reason for Continuing Indwelling Catheter: Other Urinary Catheter Date of Insertion: 10/06/23 Urinary Catheter Time of Insertion: 14:22 Discharge Data Studies Completed and Pending Completed Studies During Hospitalization Category Date Time Status CT angio chest PE protcl [id number] Stat Cat Scan 10/06/23 12:49 Completed XR chest 1V portable [id number] Routine Exams 10/06/23 17:49 Completed XR chest 1V portable [id number] Routine Exams 10/07/23 04:00 Completed XR chest 1V portable [id number] Routine Exams 10/08/23 07:00 Completed XR chest 1V portable [id number] Routine Exams 10/11/23 11:32 Completed XR chest 1V portable [id number] Stat Exams 10/06/23 11:35 Completed Cytology [PTH] Routine Pth 10/06/23 19:02 Completed Pending at discharge Category Date Time Status Complete Blood Count w/Auto AM LABS Lab 10/16/23 04:00 Ordered Comprehensive Metabolic Panel AM LABS Lab 10/16/23 04:00 Ordered Fungal Culture not HR/SK/BL Routine Lab 10/06/23 17:45 Results Magnesium AM LABS Lab 10/16/23 04:00 Ordered Mycobacteria, Culture w/Fluor Routine Lab 10/06/23 17:45 Results NT Pro B Type Natriuretic Pept QAM Lab 10/16/23 06:00 Ordered Phosphorus AM LABS Lab 10/16/23 04:00 Ordered SARS Covid-2 Antigen Stat Lab 10/15/23 12:01 Uncollected Sputum Culture and Gram Stain Stat Lab 10/06/23 12:26 Uncollected Radiology Impressions Chest X-Ray 10/11/23 11:32 IMPRESSION: Persistent rkyeg-[id number]-left bibasilar opacities, which likely represent a combination of pleural effusion, atelectasis, and infiltrate. Laboratory Results WBC 9.99 10^3/uL (3.29-11.43) 10/15/23 04:15 RBC 3.40 10^6/uL (3.85-5.65) L 10/15/23 04:15 Hgb 9.90 g/dL (11.27-16.99) L 10/15/23 04:15 Hct 33.2 % (37-53) L 10/15/23 04:15 MCV 97.6 fl (82-101) 10/15/23 04:15 MCH 29.1 pg (27-33) 10/15/23 04:15 MCHC 29.8 g/dL (30-55) L 10/15/23 04:15 RDW 14.5 % (12.1-15.1) 10/15/23 04:15 Plt Count 290 10^3/cmm (157-399) 10/15/23 04:15 MPV 9.3 fL (7.4-10.4) 10/15/23 04:15 Neut % (Auto) 46.5 % 10/14/23 04:18 Lymph % (Auto) Not Reportable 10/15/23 04:15 [place] % (Auto) Not Reportable 10/15/23 04:15 Eos % (Auto) 5.5 % 10/14/23 04:18 Baso % (Auto) 1.0 % 10/14/23 04:18 Neut # (Auto) 4.54 10^3/uL (1.8-7.7) 10/14/23 04:18 Lymph # (Auto) Not Reportable 10/15/23 04:15 [place] # (Auto) Not Reportable 10/15/23 04:15 Eos # (Auto) 0.5 10^3/uL (0.0-0.8) 10/14/23 04:18 Baso # (Auto) 0.1 10^3/uL (0.0-0.1) 10/14/23 04:18 Nucleated RBC % (auto) 0 % 10/14/23 04:18 Total Counted 100 (0-100) 10/15/23 04:15 Atypical Lymphs % 16.0 % (0-5) H 10/15/23 04:15 Segmented Neutrophils 48 % 10/15/23 04:15 Abs Segm Neuts (Man) 4.8 10/cmm (1.6-7.1) 10/15/23 04:15 Band Neutrophils Not Reportable 10/15/23 04:15 Absolute Lymphocytes 4.2 10^3/cmm (1.2-3.4) H 10/15/23 04:15 Lymphocytes (Manual) 26 % 10/15/23 04:15 Monocytes (Manual) 8.0 % 10/15/23 04:15 Absolute Monocytes 0.8 10^3/cmm (0.1-0.6) H 10/15/23 04:15 Eosinophils (Manual) 2 % 10/15/23 04:15 Absolute Eosinophils 0.2 10^3/cmm (0.0-0.7) 10/15/23 04:15 Basophils (Manual) 0.0 % 10/15/23 04:15 Absolute Basophils 0.0 10^3/cmm (0.0-0.2) 10/15/23 04:15 Nucleated RBCs # 0.0 /100WBC 10/14/23 04:18 Differential Comment Yes 10/06/23 17:45 Platelet Estimate Normal (Normal) 10/15/23 04:15 Anisocytosis 1+ H 10/15/23 04:15 PT 12.80 SECONDS (12.1-14.9) 10/07/23 03:38 INR 0.93 (0.8-1.2) 10/07/23 03:38 APTT 23.3 SECONDS (23.9-36.7) L 10/07/23 03:38 Specimen Type Arterial 10/07/23 04:05 Sample Site Brachial, right 10/07/23 04:05 ABG pH 7.38 (7.35-7.45) 10/07/23 04:05 ABG pCO2 52.9 mmHg (35-45) H 10/07/23 04:05 ABG pO2 129.0 mmHg (80.0-100.0) H 10/07/23 04:05 ABG PO2/FiO2 Ratio 0 10/07/23 04:05 ABG HCO3 31.3 mmol/L (22-26) H 10/07/23 04:05 ABG O2 Saturation 100.0 10/06/23 11:27 ABG Base Excess 5.2 mmol/L (-2.0-2.0) H 10/07/23 04:05 Peter Test N/a 10/07/23 04:05 A-a O2 Gradient 55.6 mmHg (5-10) H 10/06/23 11:27 Hematocrit 31.3 % (42-52) L 10/07/23 04:05 Hgb O2 Saturation 98.5 % (95-100) 10/06/23 11:27 Carboxyhemoglobin 0.9 %THgb (0.4-20.1) 10/06/23 11:27 Methemoglobin 0.6 % (0.4-1.5) 10/06/23 11:27 Total Hemoglobin 11.2 g/dL (14-18) L 10/06/23 11:27 Sodium 138.0 mmol/L (131-143) 10/06/23 11:27 Potassium 4.4 mmol/L (3.5-5.0) 10/06/23 11:27 Glucose 138.0 mg/dL (70-115) H 10/06/23 11:27 Ionized Calcium 1.2 mmol/L (1.1-1.4) 10/06/23 11:27 O2 Delivery Device Bipap 10/07/23 04:05 O2 Liters/Min 15.0 % 10/06/23 11:27 FiO2 35.0 % 10/07/23 04:05 Tidal Volume 0.50 10/07/23 04:05 Patient Access Associate ID [email or web address] 10/07/23 04:05 Sodium 135 mmol/L (136-145) L 10/15/23 04:15 Potassium 4.7 mmol/L (3.5-5.1) 10/15/23 04:15 Chloride 95 mmol/L (98-107) L 10/15/23 04:15 Carbon Dioxide 31 mmol/L (22-29) H 10/15/23 04:15 Anion Gap 13.7 (5-19) 10/15/23 04:15 BUN 33 mg/dL (8-23) H 10/15/23 04:15 Creatinine 2.8 mg/dL (0.7-1.2) H 10/15/23 04:15 GFR Calculation Not Reportable 10/15/23 04:15 Glucose 106 mg/dL (65-115) 10/15/23 04:15 POC Glucose 286 mg/dL (70-110) H 10/15/23 11:15 Calculated Osmolality 288 mOsm/kg (285-295) 10/15/23 04:15 Lactic Acid 1.0 mmol/L (0.5-2.2) 10/06/23 11:21 Calcium 8.5 mg/dL (8.5-10.5) 10/15/23 04:15 Phosphorus 2.7 mg/dL (2.5-4.5) 10/15/23 04:15 Magnesium 2.2 mg/dL (1.7-2.3) 10/15/23 04:15 Total Bilirubin 0.3 mg/dL (0.15-1.2) 10/15/23 04:15 AST 14 U/L (0-40) 10/15/23 04:15 ALT 7 U/L (0-41) 10/15/23 04:15 Alkaline Phosphatase 87 U/L (40-130) 10/15/23 04:15 Troponin T Baseline 340 ng/L (0-15) H* 10/06/23 11:21 Troponin T 120 Minute 336.6 ng/L (0-15) H 10/06/23 13:21 Delta Troponin T -3.4 ABS# (0-10) L 10/06/23 13:21 Troponin T Hi Sens 6Hr 270.5 ng/L (0-15) H 10/06/23 18:18 Troponin T Hi Sens 6Hr Delta -69.5 ng/L (0-12) L 10/06/23 18:18 C-Reactive Protein 9.9 mg/L (0.0-4.9) H 10/13/23 02:03 NT-Pro-B Natriuret Pep 83799 pg/mL (0-125) H 10/15/23 04:15 Total Protein 5.9 g/dL (6.6-8.7) L 10/15/23 04:15 Albumin 3.6 g/dL (3.5-5.2) 10/15/23 04:15 Globulin 2.3 g/dL (1.3-4.6) 10/15/23 04:15 Procalcitonin 0.34 ng/mL (0-0.5) 10/13/23 02:03 TSH 55.38 uIU/mL (0.27-4.20) H 10/15/23 04:15 Free T4 0.83 ng/dL (0.82-1.77) 10/15/23 04:15 Free T3 1.2 PG/ML (2.0-4.4) L 10/15/23 04:15 Urine Color Straw (Yellow) 10/11/23 13:18 Urine Appearance Turbid (CLEAR) A 10/11/23 13:18 Urine pH 5 (5-7) 10/11/23 13:18 Ur Specific [place] 1.015 (1.005-1.030) 10/11/23 13:18 Urine Protein 3+ (Negative) H 10/11/23 13:18 Urine Glucose (UA) Norm (Normal) 10/11/23 13:18 Urine Ketones Negative (Negative) 10/11/23 13:18 Urine Blood 3+ (Negative) H 10/11/23 13:18 Urine Nitrate Negative (Negative) 10/11/23 13:18 Urine Bilirubin Neg (Negative) 10/11/23 13:18 Urine Urobilinogen Norm mg/dL (Negative) 10/11/23 13:18 Ur Leukocyte Esterase 2+ (Negative) H 10/11/23 13:18 Urine RBC 5-10 /hpf (0-2) H 10/11/23 13:18 Urine WBC Too numerous to cnt /hpf (0-5) H 10/11/23 13:18 Ur Squamous Epith Cells None /hpf (0-5) 10/11/23 13:18 Amorphous Sediment Not Reportable 10/11/23 13:18 Urine Bacteria 2+ /hpf (NONE) H 10/11/23 13:18 Fluid Color Yellow 10/06/23 17:45 Fluid Appearance Clear 10/06/23 17:45 Fluid Specific Grav 1.010 10/06/23 17:45 Fluid pH 9.0 10/06/23 17:45 Fluid WBC 84 /uL 10/06/23 17:45 Fluid RBC 0 10^3/uL 10/06/23 17:45 Fld Polynuclear WBCs # 0.007 10/06/23 17:45 Fld Polynuclear WBCs % 8.300 % 10/06/23 17:45 Fl Mononucl WBCs #(Auto) 0.077 10/06/23 17:45 Fl Mononuclear % Auto 91.700 % 10/06/23 17:45 Fld Crystal Laterality Right pleural fluid 10/06/23 17:45 Fluid Glucose 143.0 mg/dL 10/06/23 17:45 Fluid Albumin 2.3 g/dL 10/06/23 17:45 Fluid LDH 99 U/L 10/06/23 17:45 Fluid Amylase 8 U/L 10/06/23 17:45 Fluid Alk Phosphatase 11 IU/L 10/06/23 17:45 Fluid Cholesterol 56 mg/dL (0-200) 10/06/23 17:45 Fluid Triglycerides 23 mg/dL (0-150) 10/06/23 17:45 Fluid Uric Acid 4 mg/dL 10/06/23 17:45 Pleural Total Protein 3.2 g/dL 10/06/23 17:45 Adenovirus (PCR) Not detected (NOT DETECT) 10/11/23 13:18 C. pneumoniae DNA (PCR) Not detected (NOT DETECT) 10/11/23 13:18 Coronavirus 229E (PCR) Not detected (NOT DETECT) 10/11/23 13:18 Hep Bs Antigen Non-reactive (Nonreactive) 10/06/23 11:21 Hep Bs Antibody < 3.5 (11.5-1000) L 10/06/23 11:21 Hep B Core Total Ab Non-reactive (Nonreactive) 10/06/23 11:21 Human Metapneumovir PCR Not detected (NOT DETECT) 10/11/23 13:18 Influenza A (H1) PCR Not detected (NOT DETECT) 10/11/23 13:18 Influ A (H1/09) PCR Not detected (NOT DETECT) 10/11/23 13:18 Influenza A (H3) PCR Not detected (NOT DETECT) 10/11/23 13:18 Influenza Type A Ag Negative (Negative) 10/06/23 12:05 Influenza Type A (PCR) Not detected (NOT DETECT) 10/11/23 13:18 Influenza Type B Ag Negative (Negative) 10/06/23 12:05 Influenza Type B (PCR) Not detected (NOT DETECT) 10/11/23 13:18 M. pneumoniae (PCR) Not detected (NOT DETECT) 10/11/23 13:18 Parainfluenza 1 (PCR) Not detected (NOT DETECT) 10/11/23 13:18 Parainfluenza 2 (PCR) Not detected (NOT DETECT) 10/11/23 13:18 Parainfluenza 3 (PCR) Not detected (NOT DETECT) 10/11/23 13:18 Parainfluenza 4 (PCR) Not detected (NOT DETECT) 10/11/23 13:18 RSV Type A (PCR) Not detected (NOT DETECT) 10/11/23 13:18 RSV Type B (PCR) Not detected (NOT DETECT) 10/11/23 13:18 Entero/Rhino (PCR) Not detected (NOT DETECT) 10/11/23 13:18 SARS-CoV-2 (PCR) Not detected (NOT DETECT) 10/11/23 13:18 Vitals Last Vital Signs Temp 97.6 F 10/15/23 11:22 Pulse 96 10/15/23 11:22 Resp 18 10/15/23 11:22 BP 119/69 10/15/23 11:22 Pulse Ox 98 10/15/23 11:22 O2 Del Method Nasal Cannula 10/15/23 11:22 O2 Flow Rate 35 10/15/23 07:53 FiO2 35 10/15/23 07:52 Discharge Plan Discharge Patient Disposition: Xfer SNF Condition: Stable Prescriptions: New alprazolam 0.5 mg Tablet 0.125 mg PO BID PRN (Reason: Anxiety) 6 Days Qty: 3 0RF zolpidem 5 mg Tablet 2.5 mg PO BEDTIME PRN (Reason: Sleep) 6 Days Qty: 3 0RF doxycycline monohydrate 100 mg Tablet 100 mg PO BID 5 Days Qty: 10 0RF fluconazole 100 mg Tablet 100 mg PO DAILY 7 Days Qty: 7 0RF docusate sodium 100 mg Capsule 100 mg PO BID 30 Days Qty: 60 0RF polyethylene glycol 3350 17 gram Powder In Packet 17 g PO DAILY PRN (Reason: constipation) 30 Days Qty: 30 0RF levothyroxine 175 mcg Tablet 175 mcg PO QAM 30 Days Qty: 30 0RF Continued garlic 1,000 mg capsule 1,000 mg PO DAILY (DME) [place] to the right See Rx Instructions .Route .MEDSUPPLY Qty: 1 0RF Rx Instructions: As directed (DME) [place] to Right Lower Extremity See Rx Instructions .Route .MEDSUPPLY Qty: 1 0RF Rx Instructions: As directed [place] (DME) FreeStyle [place]cial 2 Sensor Kit MISCELLANEOUS Qty: 1 0RF Rx Instructions: As directed nitroglycerin [Nitrostat] 0.4 mg Tablet, Sublingual 0.4 mg SUBLINGUAL Q5M PRN (Reason: Chest Pain) Rx Instructions: do not exceed 3 doses per episode resveratrol 100 mg Capsule 100 mg PO BID [place] Drops See Rx Instructions .ROUTE .COMPLEX Rx Instructions: one dropperful twice a day aspirin 81 mg tablet,delayed release (DR/EC) 81 mg PO BEDTIME Vitamin B Complex Liquid See Rx Instructions .ROUTE .COMPLEX Rx Instructions: one dropperful once a day clopidogrel 75 mg tablet 75 mg PO BEDTIME (DME) FreeStyle Marcial 2 [place] Misc MISCELLANEOUS fenugreek seed 610 mg Capsule 610 mg PO DAILY Changed insulin lispro [Humalog KwikPen Insulin] 100 unit/mL insulin pen See Rx Instructions .ROUTE .COMPLEX Qty: 15 0RF Dose Instruction: inject 10 units SUBCUTANEOUSLY THREE TIMES DAILY Rx Instructions: inject, subcut, tid with meals, based on low dose sliding scale metoprolol tartrate 50 mg tablet 25 mg PO Q12H 30 Days Qty: 30 0RF Levemir FlexPen 100 unit/mL (3 mL) insulin pen 8 unit SUBCUT QAM Qty: 15 0RF Discontinued levothyroxine 150 mcg tablet 150 mcg PO QAM Discharge Orders: Discharge Order (Routine); Ordered 10/15/23 Ordered By: Vitaly Leyva Referrals: Evelin Jenkins DO [Primary Care Provider] - 10/27/23 9:00 am () Discharge Diet: Cardiac Discharge Activity: Resume usual activity Patient Instructions: Dialysis Diet (DC), Hemodialysis (DC), Pain Management Activity Restrictions/Additional Instructions: - Please use alprazolam sparingly for anxiety ? Please use Ambien sparingly, do not use with alprazolam Discharge Attestations Time Spent in Discharge Care*: greater than 30 min Status at Discharge: Cognitive status at discharge: cognitively intact , Behavioral status at discharge: cooperative , Quality Metrics Clinical Quality Measures [ No reported AMI, CVA or VTE this stay] Coding Level of Care Code 34006 Total time (in minutes) for Discharge: 45 Diagnoses Exertional dyspnea R06.09 SVT (supraventricular tachycardia) I47.1 Pleural effusion, right J90 Stage 5 chronic kidney disease on chronic dialysis N18.6; Z99.2 Chronic kidney disease stage: on chronic dialysis Acute cystitis without hematuria N30.00 Urinary tract infection type: acute cystitis Hematuria presence: without hematuria Atherosclerosis of [place] coronary artery of [place] heart without angina pectoris I25.10 Coronary Disease-Associated Artery/Lesion type: [place] artery [place] vs. 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
[2023-10-15 12:51] LABS: SARS Covid-2 Antigen negative (Negative)
--- NOTE | 2023-10-15 13:15 | PC.NURSE ---
This nurse called report to Latonia at [facility]. All questions addressed and answered.
== END 2023-10-15 13:59 | disposition skilled nursing facility (03) | DRG 193 ==
LOC: ER 15:00 → ICU 16:02 → MEDSURG 10-10 18:38
PROVIDERS: Hospitalist; Internal Medicine Pulmonary Disease; Admitting Provider Hospitalist; Emergency Provider Family Medicine; PCP Family Medicine; Visit Provider Family Medicine
DX: J18.9 Pneumonia, unspecified organism (principal); E03.5 Myxedema coma; I50.41 Acute combined systolic (congestive) and diastolic (congestive) heart failure; N18.6 End stage renal disease; J96.01 Acute respiratory failure with hypoxia; I13.2 Hypertensive heart and chronic kidney disease with heart failure and with stage 5 chronic kidney disease, or end stage renal disease; J90 Pleural effusion, not elsewhere classified; B37.49 Other urogenital candidiasis; E46 Unspecified protein-calorie malnutrition; J98.11 Atelectasis; I48.92 Unspecified atrial flutter; I47.10 Supraventricular tachycardia, unspecified; E11.22 Type 2 diabetes mellitus with diabetic chronic kidney disease; Z99.2 Dependence on renal dialysis; F32.A Depression, unspecified; I25.10 Atherosclerotic heart disease of native coronary artery without angina pectoris; E03.9 Hypothyroidism, unspecified; E78.5 Hyperlipidemia, unspecified; I25.5 Ischemic cardiomyopathy; E11.42 Type 2 diabetes mellitus with diabetic polyneuropathy; E11.51 Type 2 diabetes mellitus with diabetic peripheral angiopathy without gangrene; K59.00 Constipation, unspecified; D63.1 Anemia in chronic kidney disease; I95.9 Hypotension, unspecified; E87.70 Fluid overload, unspecified; F41.0 Panic disorder [episodic paroxysmal anxiety]; L89.150 Pressure ulcer of sacral region, unstageable; E11.621 Type 2 diabetes mellitus with foot ulcer; L97.512 Non-pressure chronic ulcer of other part of right foot with fat layer exposed; Z11.52 Encounter for screening for COVID-19; Z99.81 Dependence on supplemental oxygen; Z79.82 Long term (current) use of aspirin; Z79.4 Long term (current) use of insulin; Z79.02 Long term (current) use of antithrombotics/antiplatelets; Z95.5 Presence of coronary angioplasty implant and graft; Z86.16 Personal history of COVID-19; Z68.28 Body mass index [BMI] 28.0-28.9, adult; Z87.01 Personal history of pneumonia (recurrent); Z89.421 Acquired absence of other right toe(s); Z89.411 Acquired absence of right great toe
CPT/HCPCS: 36415; 36416; 36600; 51702; 71045; 71275; 80048; 80051; 80053; 80503; 81001; 82042; 82150; 82330; 82465; 82803; 82805; 82945; 82962; 83605; 83615; 83735; 83880; 83986; 84075; 84100; 84145; 84157; 84315; 84439; 84443; 84478; 84481; 84484; 84560; 85007; 85025; 85610; 85730; 86140; 86705; 86706; 87015; 87040; 87070; 87075; 87086; 87102; 87106; 87116; 87205; 87206; 87340; 87426; 87486; 87581; 87633; 87635; 87801; 87804; 88112; 89050; 90935; 93005; 94640; 94660; 94664; 96365; 96366; 96367; 96372; 96376; 97110; 97161; 97167; 97530; 97535; 99291; J1100; J1644; J1815; J1940; J2185; J2405; J3370; J7040; J7050; P9047; Q3014; Q4081; Q9967

== ENCOUNTER → 2023-11-24 11:22 | Outpatient (BNVA) | payer MEDICARE, SELFPAY | PROVIDERS: PCP Family Medicine; Visit Provider Internal Medicine Pulmonary Disease | DX: J90 Pleural effusion, not elsewhere classified (principal); Z09 Encounter for follow-up examination after completed treatment for conditions other than malignant neoplasm; I25.5 Ischemic cardiomyopathy; J98.6 Disorders of diaphragm; I50.20 Unspecified systolic (congestive) heart failure; J98.11 Atelectasis | CPT/HCPCS: 71046; 99214 ==

== ENCOUNTER 2023-11-28 09:12 | Inpatient (IN) | payer MEDICARE, SELFPAY ==
[2023-11-28] VITALS (46 sets, daily range): BP systolic 89–178; BP diastolic 44–109; PULSE 80–132; RESP 3–36; TEMP 35.9–36.6; O2SAT 70–100; BMI 25.1
--- NOTE | 2023-11-28 07:43 | XR_ITS ---
WS: [id number] PORTABLE CHEST HISTORY: POST THORACENTESIS COMPARISON: 11/24/2023 Moderate improvement in the RIGHT pleural effusion since the prior study, status post thoracentesis. No pneumothorax is identified. Compressive atelectasis and increased opacifications at the lung bases. Better aeration of the RIGHT lung status post thoracentesis. Cardiac size: Normal. Mediastinum/Aorta: Mild atherosclerosis aorta. RIGHT dialysis catheter. No osseous abnormality seen. IMPRESSION: 1. Status post RIGHT thoracentesis. No pneumothorax. 2. Small persistent RIGHT pleural effusion but improved since the prior study along with improved ae ration of the lung.
--- NOTE | 2023-11-28 08:05 | PM.OUTPTPROC ---
Outpatient Procedures Thoracentesis Consent signed and on chart: Yes Time Out Performed: Yes Procedure: therapeutic thoracentesis Location: Right Local anesthetic used: lidocaine 1% Bedside ultrasound used: yes, pleural effusion confirmed and location marked Preparation: sterile prep and drape and 10 blade used to make delphine in skin Amount of fluid obtained (mL): 1,600 Fluid: clear and sent to lab for analysis Post Procedure Exam: awake, alert, normal BP, normal HR and normal SpO2 Post-procedure chest x-ray ordered: Yes Estimated blood loss (mL): 5 Patient Tolerated Procedure: well and no complications Procedure Note: Pulmonary & Critical Care Medicine Procedure - Ultrasound guided Thoracentesis Procedure: CPT code 72031 thoracentesis, needle or catheter, aspiration of the pleural space; with imaging guidance Indication: Worsening recurrent right pleural effusion. 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 Medication reconciliation form reviewed and any changes related this procedure resolved. Report: The procedure for thoracentesis was explained to the patient including the risks, benefits and possible complications. The patient was given the opportunity to ask questions, wished to proceed, and signed the written informed consent form. Using ultrasound guidance, a safe route of access was identified into the right pleural space. The site was then prepped and draped using maximal sterile barrier technique. The 1% lidocaine was used for local anesthetic. With sonographic guidance, a 6 Indian thoracentesis catheter was placed with return of 5 cc straw-colored pleural fluid. The catheter was slipped into the pleural cavity and approximately 1.6 L of straw-colored pleural fluid was removed and procedure aborted when patient started complaining of discomfort. Suspect there is trapped lung physiology. The patient tolerated the procedure well and postprocedure chest x-ray did not show any pneumothorax. However patient is extremely weak and continues to have dyspnea which did not improve after thoracentesis. He had a brief episode of syncope-rapid response initiated and patient admitted to ICU. Lab work revealed patient had hypercapnic respiratory acidosis. He was placed on BiPAP. Impression: 1. Successful ultrasound-guided right thoracentesis with removal of approximately 1.6 L of straw-colored pleural fluid. ICD-10 code-J90 pleural effusion, not elsewhere classified
[2023-11-28] MEDS: ALPRAZolam 0.5 mg Tablet 0.25 MG PO (08:23)
--- NOTE | 2023-11-28 09:01 | XRR_ITS ---
PROCEDURE INFORMATION: Exam: XR Chest Exam date and time: 11/28/2023 9:09 AM Age: 73 years old Clinical indication: Device placement; Other: Post thora; Additional info: Post thoracentesis rapid response TECHNIQUE: Imaging protocol: Radiologic exam of the chest. Views: 1 view. COMPARISON: CR XR chest 1V portable [id number] 11/28/2023 7:57 AM FINDINGS: Tubes, catheters and devices: A dialysis catheter is present in satisfactory position. Lungs: There is increasing right basilar opacity which is consistent with worsening right basilar consolidation and atelectasis. There is stable patchy atelectasis in the left base. Pleural spaces: Small right effusion unchanged. No pneumothorax. Heart/Mediastinum: Unremarkable. No cardiomegaly. Bones/joints: Unremarkable. XR/XR chest 1V portable [id number] IMPRESSION: Worsening right basilar opacity consistent with worsening atelectasis or consolidation.
--- NOTE | 2023-11-28 09:01 | ECG_ITS ---
[facility] Test Date: 2023-11-28 Pat Name: Usman Alvarez Department: Room: ICU12 Gender: Male Key Worker: : [id number] Requested By: Wilfredo Vogel Order Number: [id number] Diandra MD: Lito Louis M.D. Measurements Intervals [place] Rate: 114 P: 69 NC: 171 QRS: 67 QRSD: 110 T: 178 QT: 282 QTc: 388 Interpretive Statements SINUS TACHYCARDIA NONSPECIFIC ST & T-WAVE ABNORMALITY INTERPRETATION BASED ON A DEFAULT AGE OF 40 YEARS Compared to ECG 10/06/2023 17:05:20 T-wave abnormality now present Sinus rhythm no longer present Incomplete right bundle-branch block no longer present Electronically Signed On 11-29-2023 19:20:22 CDT by Lito Louis M.D. [id number] f
[2023-11-28 09:15] LABS: Arterial Blood Gas Hematocrit 37.9 % (42-52); Base Excess ABG -0.3 mmol/L (-2.0-2.0); Blood Gas Allen Test Pos; Blood Gas Operator Identificat BROMA; Blood Gas Sample Site Radial, left; Blood Gas Sample Type Arterial; Carboxyhemoglobin 1.4 %THgb (0.4-20.1); HCO3 ABG 31.6 mmol/L (22-26); HGB O2 Sat 96.9 % (95-100); Ionized Calcium Level - ABG 1.3 mmol/L (1.1-1.4); Methemoglobin 0.7 % (0.4-1.5); Oxygen Device OXY MASK; Potassium Level - ABG 4.6 mmol/L (3.5-5.0); Total Hemoglobin 12.4 g/dL (14-18)
[2023-11-28 09:16] LABS: ABG PCO2 97.6 mmHg (35-45)
--- NOTE | 2023-11-28 09:16 | PC.NURSE ---
Pt to ICU via gurleonel with Dr Pereira and nurses. Bedside report in ICU. All personal belongings with .
[2023-11-28 09:17] LABS: ABG PH Result 7.12 (7.35-7.45)
[2023-11-28 09:23] LABS: Mononuclear %, Pleural Fluid 92 %; Mononuclear, Pleural Fluid # 0.059 10^3/uL; Polynuclear Cells, Pleural # 0.005 10^3/uL; Polynuclear Cells, Pleural % 8 %
[2023-11-28 09:27] LABS: Appearance, Pleural Fluid CLEAR (CLEAR); Color, Pleural Fluid Yellow (Pale Yellow); Right Pleural Fluid Right Lung
[2023-11-28 09:28] LABS: Cyto Order Verification No Order; PATH Referral YES
[2023-11-28 09:29] LABS: Fluid Laterality Right Lower
--- NOTE | 2023-11-28 09:30 | PC.NURSE ---
PT SITTING UP ON SIDE OF BED, RN ASSISTING WITH PUTTING PTS SHIRT ON. PT BECAME UNRESPONSIVE AND DIAPHORETIC WITH PULSE PRESENT. VS TAKEN- B/P 135/77 MAP 91 HR 105. RAPID RESPONSE INITIATED. ANESTHESIA AT BEDSIDE. NOTIFIED VIA PHONE-CARE TRANSFERRED PHYSICIAN TO PHYSICIAN TO DR. ELLIS.
--- NOTE | 2023-11-28 09:39 | PM.HP ---
Providers/Chief Complaint Admitting Physician: Marciano Pereira MD Primary Care Provider: Evelin Jenkins DO Chief Complaint: J90 History of Present Illness Usman Alvarez is a 73 year old male with recurrent pleural effusion, end-stage renal disease on hemodialysis, coronary artery disease, diabetes, and multiple other medical problems who was undergoing a thoracentesis for pleural effusion today. The procedure itself went without complication, yielding over 1.5 L of fluid. Following this, he had an episode of unresponsiveness thought to be syncope. Oxygen saturation did not drop significantly. Blood pressure was adequate. Glucose was checked and normal. A rapid response was called and Dr. Mejía responded. EKG showed some minimal ST depression V4 through [address] elevation. Patient had diminished responsiveness to me. ABG was presented to me demonstrating a pCO2 of 100 and I directed BiPAP to be started. Patient's was able to relate he had not received dialysis his last 2 sessions as he skipped them. Further history was really unable to be obtained from the patient. On arrival to the ICU and initiation of BiPAP he was more alert. He denied any chest pain, or shortness of breath. Review of Systems General: Reports: ROS unobtainable due to mental status Medications/Allergies Home Medications Medication Instructions Recorded Confirmed Last Taken Type garlic 1,000 mg capsule 1,000 mg PO DAILY 08/31/19 11/26/23 11/23/23 History aspirin 81 mg tablet,delayed 81 mg PO BEDTIME 02/05/23 11/26/23 11/23/23 History release nitroglycerin 0.4 mg sublingual 0.4 mg sublingual Q5M PRN Chest 02/05/23 11/26/23 Unknown History tablet (Nitrostat) Pain resveratrol 100 mg capsule 100 mg PO BID 02/05/23 11/28/23 11/27/23 History Owls Boot to Right Lower Extremity #1 ea 03/24/23 11/26/23 Unknown Rx Cam Boot to the right #1 ea 03/26/23 11/26/23 Unknown Rx Vitamin B Complex Liquid See Rx Instructions .Route .COMPLEX 04/16/23 11/28/23 11/27/23 History flash glucose scanning reader 07/19/23 11/26/23 Unknown History (FreeStyle Marcial 2 [place]) fenugreek seed 610 mg capsule 610 mg PO DAILY 08/05/23 11/28/23 11/27/23 History insulin detemir U-100 100 unit/mL 8 unit (0.08 mL) SUBCUT QAM #15 mL 10/15/23 11/28/23 11/27/23 Rx (3 mL) subcutaneous pen (Levemir FlexPen) insulin lispro 100 unit/mL See Rx Instructions .Route 10/15/23 11/28/23 11/27/23 Rx subcutaneous pen (Humalog KwikPen .COMPLEX #15 mL (U-100) Insulin) flash glucose sensor (FreeStyle #1 ea 11/07/23 11/26/23 Unknown Rx Marcial 2 Sensor kit) clopidogrel 75 mg tablet 75 mg PO BEDTIME #90 tabs 11/18/23 11/26/23 11/23/23 Rx levothyroxine 175 mcg capsule 175 mcg PO DAILY #60 caps 11/20/23 11/28/23 11/28/23 Rx metoprolol tartrate 50 mg tablet 25 mg PO Q12H PRN high HR or high 11/26/23 11/26/23 11/25/23 History BP Allergies Allergy/AdvReac Type Severity Reaction Status Date / Time Penicillins Allergy Severe Throat Verified 11/26/23 12:47 swells amiodarone Allergy Unknown Verified 11/26/23 12:47 atorvastatin Allergy ADR-Muscle Verified 11/26/23 12:47 Pain azithromycin Allergy ADR/ALGY-Pa Verified 11/26/23 12:47 lpitations ciprofloxacin Allergy hallucinations Verified 11/26/23 12:47 and burning sensation in legs mirtazapine [From Remeron] Allergy ADR-Nightma Verified 11/26/23 12:47 re simvastatin Allergy ADR-Muscle Verified 11/26/23 12:47 Pain Cordarone Allergy Unknown Confusion Uncoded 11/26/23 12:47 PFSH Acute PFSH: Medical History (Updated 11/28/23 @ 11:40 by Marciano Pereira MD) Peripheral arterial disease Pleural effusion Protein calorie malnutrition Atherosclerosis of coronary artery Sputum culture positive for Pseudomonas and bactrim resistant stenotrophomonas in 08/2023 from [place], prolonged ventilation COVID-19 08/2023 History of pneumothorax 07/2023 iatragenic Hypothyroidism SVT (supraventricular tachycardia) Atrial flutter does not tolerate amiodarone per ESRD on hemodialysis Hopeful that he will be able to come off of dialysis Leg wound, left Aspiration pneumonitis Pulmonary edema Dehiscence of wound 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 Atelectasis, left 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 Hyperlipidemia Diabetic peripheral neuropathy associated with type 2 diabetes mellitus Gangrenous toe CKD (chronic kidney disease) Systolic heart failure Pleural effusion, left Non-healing ulcer Ischemic cardiomyopathy Diabetic ulcer of right foot Kidney stone Amputation toe Diabetes mellitus with peripheral vascular disease HTN (hypertension) Diabetes Surgical History History of thoracentesis 08/2022, 07/2023 right pleural effusion, S/P right coronary artery (RCA) stent placement 08/2023 at [facility], 3 JETT to RCA [(2) 2.5 x 38mm, (1) 2.5 x 12 mm] History of cardiac catheterization 08/2023 at [facility] History of amputation of toe S/P transmetatarsal amputation of foot all toes right foor Status post amputation of toe of right foot H/O chest tube placement S/P cholecystectomy S/P tonsillectomy S/P cataract extraction Family History Father Cancer LUNG Mother CAD (coronary artery disease) Diabetes Congestive heart failure (CHF) Myocardial infarction Social History Smoking and tobacco/nicotine status: never used tobacco/nicotine Alcohol intake: never Substance/Drug Use: never Household members: spouse Marital status: Current occupational status: retired Vitals/I&O/Wt Last Vital Signs Temp 97.3 F L 11/28/23 06:38 Pulse 108 H 11/28/23 09:36 Resp 30 H 11/28/23 07:54 BP 162/70 11/28/23 07:29 Pulse Ox 98 11/28/23 09:36 O2 Del Method Nasal Cannula 11/28/23 07:54 O2 Flow Rate 2.5 11/28/23 07:54 FiO2 28 11/28/23 09:36 11/27/23 11/28/23 11/28/23 22:59 06:59 14:59 Output Total 1600 / 1600 Balance -1600 / -1600 Weight last 48 hrs Weight 81.647 kg Physical Exam Narrative: General exam demonstrates a white male, who can now open his eyes and denies complaints. He is currently on BiPAP. He appears tired, and chronically ill. HEENT: On BiPAP. Neck is supple no lymphadenopathy thyromegaly Cardiovascular slight tachycardia, regular. Dialysis catheter noted right chest Lungs diminished breath sounds bilaterally right greater than left. No crackles. No wheezes Abdomen is soft, positive bowel sounds. No obvious organomegaly exam was deferred Extremities 1+ edema bilaterally. No cyanosis or clubbing. Neuro: No focal deficits Skin: No rash Data 11/28/23 09:11 Other Labs: CBC was ordered but not yet back. LFTs are normal Calcium 8.3, albumin 3.5 TSH 25 Magnesium normal Troponin 180, series ordered ABG repeat on AVAPS demonstrates pH 7.19, pCO2 of 85, pO2 of 82 on a tidal volume of 450 and a rate of 14. FiO2 is 28% Urinalysis ordered Chest x-ray right basilar opacity, possibly edema following thoracentesis. No pneumothorax. Previous x-ray demonstrated improvement in pleural effusion. EKG demonstrated sinus tachycardia, normal axis. Some ST flattening/depression V4 through 6 Micro: Microbiology 11/28/23 09:15 Blood Culture - Preliminary Blood SPECIMEN COLLECTED 11/28/23 09:11 Blood Culture - Preliminary Blood SPECIMEN COLLECTED A&P Assessment and plan (1) Syncope: Patient presents with a syncopal episode with his thoracentesis. From description, this is most likely secondary to CO2 narcosis. Monitor on telemetry in the ICU (2) Acute hypercapnic respiratory failure: Patient has acute hypercarbic respiratory failure Pulmonary consult appreciated Continue AVAPS Repeat blood gas later today No need for intubation currently Goal oxygen saturation 88 to 92%, especially when he comes off BiPAP/AVAPS (3) Acute encephalopathy: Acute encephalopathy secondary to acute CO2 narcosis. This appears to be improving slowly. (4) Diabetes: Sliding scale insulin No evidence of DKA Consistent carb diet when diet is started Qualifiers: Diabetes mellitus type: type 2 Diabetes mellitus continuous churn buttermaker insulin use: with continuous churn buttermaker use Diabetes mellitus complication status: with kidney complications Diabetes mellitus complication detail: with chronic kidney disease Chronic kidney disease stage: stage 5, not on chronic dialysis Qualified Code(s): E11.22 - Type 2 diabetes mellitus with diabetic chronic kidney disease; N18.5 - Chronic kidney disease, stage 5; Z79.4 - penitentiary (current) use of insulin (5) End-stage renal disease on hemodialysis: He has missed 2 dialysis sessions. 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 There is some scarring still present. (7) Pressure injury of sacral region, unstageable: There is an unstageable ulcer, with a fair amount of fibrin in his sacral region. It has some drainage. Will have surgery consult for wound care instructions, and he will need follow-up. (8) Recurrent right pleural effusion: Patient had a right pleural effusion drained today. If this recurs, a more permanent drain may be placed. Plan Elevated troponin. Patient reports no chest pain. I suspect this is a type II elevation or elevation secondary to his renal disease. Trend. Last echo in June demonstrated an EF of 45 to 50%. EKGs are similar to previous. Other medical problems as outlined in past medical history Full code currently Heparin subcutaneous for DVT prophylaxis I do not see need for antibiotics currently. Attestations Medical Necessity Statement*: Will require greater than 2 midnight stay for evaluation and treatment of syncope, recurrent pleural effusion, CO2 narcosis, respiratory failure, skipped dialysis with need for acute dialysis. Critical Care Time: The high probability of a clinically significant, sudden or life threatening deterioration of the patient's [pulmonary, cardiac, renal, musculoskeletal] system(s) required my full and direct attention, intervention and personal management. The critical care time is as shown. This time is in addition to time spent performing any reported procedures but includes the following: [x] Data and vital sign review and interpretation [x] Patient assessment, examination and intervention [x] Documentation [x] Medication orders and management Critical Care Time (min): 55 Coding Level of Care Code Critical Care >/= 30 minutes Critical care time (in minutes): 55 The high probability of a clinically significant, sudden or life threatening deterioration, as referenced in this documentation, required my full and direct attention, intervention and personal management. The critical care time shown is in addition to time spent performing any reported separately billable procedures and includes the following: [x] Data and vital sign review and interpretation [x] Patient assessment, examination and intervention [x] Medication orders and management [x] Patient/Family updates as able [x] Care Coordination and Documentation. Diagnoses Syncope R55 Acute hypercapnic respiratory failure J96.02 Acute encephalopathy G93.40 Type 2 diabetes mellitus with stage 5 chronic kidney disease not on chronic dialysis, with long-term current use of insulin E11.22; N18.5; Z79.4 Diabetes mellitus type: type 2 Diabetes mellitus skilled nursing insulin use: with skilled nursing use Diabetes mellitus complication status: with kidney complications Diabetes mellitus complication detail: with chronic kidney disease Chronic kidney disease stage: stage 5, not on chronic dialysis End-stage renal disease on hemodialysis N18.6; Z99.2 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
[2023-11-28 09:54] LABS: Alanine Aminotransferase 10 U/L (0-41); Albumin Level 3.5 g/dL (3.5-5.2); Alkaline Phosphatase 105 U/L (40-130); Anion Gap 14.8 (5-19); Aspartate Amino Transferase 11 U/L (0-40); Blood Urea Nitrogen 46 mg/dL (8-23); Calcium 8.3 mg/dL (8.5-10.5); Carbon Dioxide 29 mmol/L (22-29); Chloride 98 mmol/L (98-107); Creatinine Clr Calc Pharmacy 21.9399; Globulin 2.9 g/dL (1.3-4.6); Glucose 200 mg/dL (65-115); Magnesium 2.1 mg/dL (1.7-2.3); Osmolality Calculated 302 mOsm/kg (285-295); Potassium 4.8 mmol/L (3.5-5.1); Sodium 137 mmol/L (136-145); Total Bilirubin 0.2 mg/dL (0.15-1.2); Total Protein 6.4 g/dL (6.6-8.7)
[2023-11-28 09:59] LABS: Troponin T (5th) Once 180 ng/L (0-15)
[2023-11-28] MEDS: heparin 5,000 unit/mL INJ 1 mL 5000 UNIT SUBCUT ×2 (10:19→21:11)
[2023-11-28 10:20] LABS: Thyroid Stimulating Hormone 25.42 uIU/mL (0.27-4.20)
--- NOTE | 2023-11-28 10:30 | P.CONIM_ITS ---
Providers/Reason For Consult 2 Consulting Physician/Specialty*: Wilfredo Mejía MD FCCP/pulmonary critical care Reason for Consult*: Hypercapnic respiratory failure Requesting Physician: Marciano Pereira Attending Physician: Wilfredo Mejía MD Primary Care Provider: Evelin Jenkins DO History of Present Illness History of Present Illness Mr. Usman Alvarez is a 73 year old male with history of atrial flutter; DM, HTN, Hyperlipidemia, PAD, CHF, ESRD on hemodialysis came today for recurrent right pleural effusion thoracentesis. Drained 1.6 L of straw-colored fluid. Postthoracentesis patient continues to complain shortness of breath revealed patient had an episode of unresponsiveness thought to be syncope. Oxygen saturation did not drop significantly. Rapid response was called. His vitals were stable, blood pressure was adequate, EKG showed minimal ST depression V4 through [address] elevation. ABG demonstrated pCO2 100 and pH 7.12. Recommended admission for hypercapnic respiratory failure. He was transferred to ICU and placed on BiPAP-subsequently was more alert. Background history: I have known Mr. Alvarez from May 2022 in pulmonary clinic initially referred for persistent left lower lobe pleural effusion/consolidation after having pneumonia in April 2022. Please chest x-rays showed left hemidiaphragm elevation in 10/09/2020. Sniff test ruled out diaphragmatic paralysis. I did flexible bronchoscopy on 06/17/2022 for left lower lobe atelectasis ruled out endobronchial lesions but have seen lot of mucopurulent secretions on both sides which were suctioned right away. There was significant mucosal edema of left lower lobe airways and biopsy of these areas were reported chronic inflammation. Suspected chronic aspiration as cause of left lower airway mucosal edema leading to atelectasis and the transudative fluid accumulation-barium swallow August 2022-showed esophageal dysmotility and potential for aspiration. Patient was referred for VATS. He underwent VATS in September 2022 and [facility]- ??- is not sure if they did pleurodesis. In August 2022-he again presented to ER after an [id number] cardiac arrest with return of spontaneous circulation-transfer to [facility]-intubated for 17 days; outside records suggest he was tested positive for COVID-treated with remdesivir and dexamethasone. He underwent cardiac catheterization with subsequent placement of 3 drug-eluting stents in the RCA. According to his , patient was significantly deconditioned during August 2022 hospital admission-still requiring significant assistance with activities of daily living. Later patient had 2 admissions in June 2023 in July 2023-hyperkalemia, evidence of acute kidney injury with hypercapnic respiratory failure requiring BiPAP. He also had A-fib with RVR and increasing volume overload. He was started on hemodialysis at that time. There was a concern for underlying acute coronary syndrome but further evaluation not pursued due to kidney dysfunction. October 2023-admitted to hospital in october 2023 for acute hypoxic respiratory failure secondary fluid overload end-stage renal disease systolic diastolic CHF exacerbation, received inpatient dialysis, overall clinically improved. For right pleural effusion S/p thoracocentesis 10/26/23: successful ultrasound- guided right thoracentesis with removal of approximately 1.1 L of straw-colored pleural fluid. For concerns for pneumonia he was managed with broad-spectrum antibiotic therapy, discharged on doxycycline. For sacral decubitus ulcer and DTI, continue repositioning, continue to monitor closely. For Miriam UTI discharged on Diflucan 11/24/2023: Patient comes to pulmonary clinic after charge follow-up. C/O chest feeling tight. reported that he is using his baseline 3 L oxygen but has a short bouts of shortness of breath due to anxiety. Chest x-ray showed worsening right pleural effusion. I recommended therapeutic thoracentesis 5 days as she took his Plavix the day before. 11/28/2023: Today morning patient comes as outpatient for thoracentesis of recurrent right pleural effusion. Successfully drained 1.6 L straw-colored fluid without any complications. Postthoracentesis chest x-ray showed improvement right pleural effusion. However patient continues to complain of shortness of breath which patient attributed to his anxiety and for which she was taking low-dose Xanax as needed. reported that he did not go for 2 hemodialysis sessions this week due to shortness of breath. In the postop area patient had episode of unresponsiveness-likely syncopal episode. Vitals remained stable. EKG showed mild ST-T wave depression in lead 4-6. No ST elevation. Glucose normal. ABG showed pCO2 100 and pH 7.12. He was transferred to ICU and started on BiPAP. Pulmonary consult requested for hypercapnic respiratory failure. Patient seen at bedside-appears more alert. Labs revealed elevated white count 27,000 Plan is to do hemodialysis today Review of Systems 2 General: Reports: 10 or more systems reviewed and unremarkable except in HPI and below Medications/Allergies Home Medications Medication Instructions Recorded Confirmed Last Taken Type garlic 1,000 mg capsule 1,000 mg PO DAILY 08/31/19 11/26/23 11/23/23 History aspirin 81 mg tablet,delayed 81 mg PO BEDTIME 02/05/23 11/26/23 11/23/23 History release nitroglycerin 0.4 mg sublingual 0.4 mg sublingual Q5M PRN Chest 02/05/23 11/26/23 Unknown History tablet (Nitrostat) Pain resveratrol 100 mg capsule 100 mg PO BID 02/05/23 11/28/23 11/27/23 History Owls Boot to Right Lower Extremity #1 ea 03/24/23 11/26/23 Unknown Rx Cam Boot to the right #1 ea 03/26/23 11/26/23 Unknown Rx Vitamin B Complex Liquid See Rx Instructions .Route .COMPLEX 04/16/23 11/28/23 11/27/23 History flash glucose scanning reader 07/19/23 11/26/23 Unknown History (FreeStyle Marcial 2 [place]) fenugreek seed 610 mg capsule 610 mg PO DAILY 08/05/23 11/28/23 11/27/23 History insulin detemir U-100 100 unit/mL 8 unit (0.08 mL) SUBCUT QAM #15 mL 10/15/23 11/28/23 11/27/23 Rx (3 mL) subcutaneous pen (Levemir FlexPen) insulin lispro 100 unit/mL See Rx Instructions .Route 10/15/23 11/28/23 11/27/23 Rx subcutaneous pen (Humalog KwikPen .COMPLEX #15 mL (U-100) Insulin) flash glucose sensor (FreeStyle #1 ea 11/07/23 11/26/23 Unknown Rx Marcial 2 Sensor kit) clopidogrel 75 mg tablet 75 mg PO BEDTIME #90 tabs 11/18/23 11/26/23 11/23/23 Rx levothyroxine 175 mcg capsule 175 mcg PO DAILY #60 caps 11/20/23 11/28/23 11/28/23 Rx metoprolol tartrate 50 mg tablet 25 mg PO Q12H PRN high HR or high 11/26/23 11/26/2311/24/24 History BP Allergies Allergy/AdvReac Type Severity Reaction Status Date / Time Penicillins Allergy Severe Throat Verified 11/26/23 12:47 swells amiodarone Allergy Unknown Verified 11/26/23 12:47 atorvastatin Allergy ADR-Muscle Verified 11/26/23 12:47 Pain azithromycin Allergy ADR/ALGY-Pa Verified 11/26/23 12:47 lpitations ciprofloxacin Allergy hallucinations Verified 11/26/23 12:47 and burning sensation in legs mirtazapine [From Remeron] Allergy ADR-Nightma Verified 11/26/23 12:47 re simvastatin Allergy ADR-Muscle Verified 11/26/23 12:47 Pain Cordarone Allergy Unknown Confusion Uncoded 11/26/23 12:47 Current Medications Generic Name Dose Route Start Last Admin Trade Name Freq PRN Reason Stop Dose Admin Heparin Sodium (Porcine) 5,000 unit 11/28/23 09:30 11/28/23 10:19 Heparin 5,000 Unit/Ml Inj 1 Ml SUBCUT 5,000 unit Q12H SAHARA Administration PFSH Acute 2 PFSH: Medical History Peripheral arterial disease Pleural effusion Protein calorie malnutrition Atherosclerosis of coronary artery Sputum culture positive for Pseudomonas and bactrim resistant stenotrophomonas in 08/2023 from [place], prolonged ventilation COVID-19 08/2023 History of pneumothorax 07/2023 iatragenic Hypothyroidism SVT (supraventricular tachycardia) Atrial flutter does not tolerate amiodarone per ESRD on hemodialysis Hopeful that he will be able to come off of dialysis Leg wound, left Aspiration pneumonitis Pulmonary edema Dehiscence of wound 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 Atelectasis, left 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 Hyperlipidemia Diabetic peripheral neuropathy associated with type 2 diabetes mellitus Gangrenous toe CKD (chronic kidney disease) Systolic heart failure Pleural effusion, left Non-healing ulcer Ischemic cardiomyopathy Diabetic ulcer of right foot Kidney stone Amputation toe Diabetes mellitus with peripheral vascular disease HTN (hypertension) Diabetes Surgical History History of thoracentesis 08/2022, 07/2023 right pleural effusion, S/P right coronary artery (RCA) stent placement 08/2023 at [facility], 3 JETT to RCA [(2) 2.5 x 38mm, (1) 2.5 x 12 mm] History of cardiac catheterization 08/2023 at [facility] History of amputation of toe S/P transmetatarsal amputation of foot all toes right foor Status post amputation of toe of right foot H/O chest tube placement S/P cholecystectomy S/P tonsillectomy S/P cataract extraction Family History Father Cancer LUNG Mother CAD (coronary artery disease) Diabetes Congestive heart failure (CHF) Myocardial infarction Social History Smoking and tobacco/nicotine status: never used tobacco/nicotine Alcohol intake: never Substance/Drug Use: never Household members: spouse Marital status: Current occupational status: retired Vitals/I&O/Wt Last Vital Signs Temp 97.3 F L 11/28/23 06:38 Pulse 108 H 11/28/23 09:36 Resp 30 H 11/28/23 07:54 BP 162/70 11/28/23 07:29 Pulse Ox 98 11/28/23 09:36 O2 Del Method Nasal Cannula 11/28/23 07:54 O2 Flow Rate 2.5 11/28/23 07:54 FiO2 28 11/28/23 09:36 11/27/23 11/28/23 11/28/23 22:59 06:59 14:59 Output Total 1600 / 1600 Balance -1600 / -1600 Weight last 48 hrs Weight 180 lb Weight 180 lb Physical Exam 2 Narrative: General: alert, extremely weak, elderly man lying in bed HEENT: conj clear, EOMI, PERRL, mmm, Neck: supple, no meningismus Heme: no cervical LAP Respiratory: Inspection: No visible deformity of the chest wall Palpation: Trachea is mildly deviated to the right, bilateral symmetric expansion Percussion: Increased dullness right lower lung zone Auscultation: Reduced breath sounds right lower lung zone Cardiovascular: rrr, nl s1s2, no mrg Abdomen: soft, nt, nd, no r/g, bs+ Extremities: pulses +, 1+ pitting pedal edema, no c/c : no CVA tenderness Skin: Sacral decubitus with significant slough at the base MSK: no back or neck pain Neurologic: grossly intact Data 11/28/23 09:11 11/28/23 09:11 Other Labs: Radiology Impressions Chest X-Ray 11/28/23 09:01 IMPRESSION: Worsening right basilar opacity consistent with worsening atelectasis or consolidation. Laboratory Results WBC 27.21 10^3/uL (3.29-11.43) H 11/28/23 09:11 RBC 4.30 10^6/uL (3.85-5.65) 11/28/23 09:11 Hgb 12.70 g/dL (11.27-16.99) 11/28/23 09:11 Hct 42.9 % (37-53) 11/28/23 09:11 MCV 99.8 fl (82-101) 11/28/23 09:11 MCH 29.5 pg (27-33) 11/28/23 09:11 MCHC 29.6 g/dL (30-55) L 11/28/23 09:11 RDW 14.3 % (12.1-15.1) 11/28/23 09:11 Plt Count 501 10^3/cmm (157-399) H 11/28/23 09:11 MPV 9.4 fL (7.4-10.4) 11/28/23 09:11 Neut % (Auto) 54.5 % 11/28/23 09:11 Lymph % (Auto) 39.2 % 11/28/23 09:11 Carver % (Auto) 3.6 % 11/28/23 09:11 Eos % (Auto) 1.2 % 11/28/23 09:11 Baso % (Auto) 0.9 % 11/28/23 09:11 Neut # (Auto) 14.82 10^3/uL (1.8-7.7) H 11/28/23 09:11 Lymph # (Auto) 10.7 10^3/uL (0.8-4.8) H 11/28/23 09:11 Carver # (Auto) 1.0 10^3/uL (0.2-0.9) H 11/28/23 09:11 Eos # (Auto) 0.3 10^3/uL (0.0-0.8) 11/28/23 09:11 Baso # (Auto) 0.2 10^3/uL (0.0-0.1) H 11/28/23 09:11 Nucleated RBC % (auto) 0 % 11/28/23 09:11 Nucleated RBCs # 0.0 /100WBC 11/28/23 09:11 Specimen Type Arterial 11/28/23 10:26 Sample Site Radial, left 11/28/23 10:26 ABG pH 7.19 (7.35-7.45) L 11/28/23 10:26 ABG pCO2 85.3 mmHg (35-45) H* 11/28/23 10: ABG pO2 82.5 mmHg (80.0-100.0) 11/28/23 10: ABG PO2/FiO2 Ratio 0 11/28/23 10: ABG HCO3 32.4 mmol/L (22-26) H 11/28/23 10: ABG O2 Saturation 95.5 11/28/23 10: ABG Base Excess 2.1 mmol/L (-2.0-2.0) H 11/28/23 10:26 Peter Test Pos 11/28/23 10: A-a O2 Gradient 1.8 mmHg (5-10) L 11/28/23 10: Hematocrit 35.1 % (42-52) L 11/28/23 10: Hgb O2 Saturation 93.4 % (95-100) L 11/28/23 10:26 Carboxyhemoglobin 1.6 %THgb (0.4-20.1) 11/28/23 10: Methemoglobin 0.7 % (0.4-1.5) 11/28/23 10:26 Total Hemoglobin 11.4 g/dL (14-18) L 11/28/23 10:26 Sodium 137.0 mmol/L (131-143) 11/28/23 10: Potassium 4.6 mmol/L (3.5-5.0) 11/28/23 10:26 Glucose 197.0 mg/dL (70-115) H 11/28/23 10: Ionized Calcium 1.2 mmol/L (1.1-1.4) 11/28/23 10:26 O2 Delivery Device Bipap 11/28/23 10:26 O2 Liters/Min 6.0 % 11/28/23 09:00 FiO2 28.0 % 11/28/23 10:26 Tidal Volume 0.45 11/28/23 10:26 PEEP 8.0 cmH20 11/28/23 10:26 Hand Patcher ID Michael 11/28/23 10:26 Sodium 137 mmol/L (136-145) 11/28/23 09:11 Potassium 4.8 mmol/L (3.5-5.1) 11/28/23 09:11 Chloride 98 mmol/L (98-107) 11/28/23 09:11 Carbon Dioxide 29 mmol/L (22-29) 11/28/23 09:11 Anion Gap 14.8 (5-19) 11/28/23 09:11 BUN 46 mg/dL (8-23) H 11/28/23 09:11 Creatinine 3.4 mg/dL (0.7-1.2) H 11/28/23 09:11 GFR Calculation Not Reportable 11/28/23 09:11 Glucose 200 mg/dL (65-115) H 11/28/23 09:11 POC Glucose 95 mg/dL (70-110) 11/28/23 17:09 Calculated Osmolality 302 mOsm/kg (285-295) H 11/28/23 09:11 Lactic Acid 1.0 mmol/L (0.5-2.2) 11/28/23 09:11 Calcium 8.3 mg/dL (8.5-10.5) L 11/28/23 09:11 Magnesium 2.1 mg/dL (1.7-2.3) 11/28/23 09:11 Total Bilirubin 0.2 mg/dL (0.15-1.2) 11/28/23 09:11 AST 11 U/L (0-40) 11/28/23 09:11 ALT 10 U/L (0-41) 11/28/23 09:11 Alkaline Phosphatase 105 U/L (40-130) 11/28/23 09:11 Troponin T 5th Gen ng/L 186 ng/L (0-15) H* 11/28/23 14:15 Total Protein 6.4 g/dL (6.6-8.7) L 11/28/23 09:11 Albumin 3.5 g/dL (3.5-5.2) 11/28/23 09:11 Globulin 2.9 g/dL (1.3-4.6) 11/28/23 09:11 TSH 25.42 uIU/mL (0.27-4.20) H 11/28/23 09:11 Urine Color Yellow (Yellow) 11/28/23 15:40 Urine Appearance Sl hazy (CLEAR) A 11/28/23 15:40 Urine pH 5 (5-7) 11/28/23 15:40 Ur Specific [place] 1.010 (1.005-1.030) 11/28/23 15:40 Urine Protein 3+ (Negative) H 11/28/23 15:40 Urine Glucose (UA) Norm (Normal) 11/28/23 15:40 Urine Ketones 1+ (Negative) H 11/28/23 15:40 Urine Blood 2+ (Negative) H 11/28/23 15:40 Urine Nitrate Negative (Negative) 11/28/23 15:40 Urine Bilirubin Neg (Negative) 11/28/23 15:40 Urine Urobilinogen Norm mg/dL (Negative) 11/28/23 15:40 Ur Leukocyte Esterase 2+ (Negative) H 11/28/23 15:40 Urine RBC 0-4 /hpf (0-2) H 11/28/23 15:40 Urine WBC Too numerous to cnt /hpf (0-5) H 11/28/23 15:40 Ur Squamous Epith Cells None /hpf (0-5) 11/28/23 15:40 Amorphous Sediment Not Reportable 11/28/23 15:40 Urine Bacteria 1+ /hpf (NONE) H 11/28/23 15:40 Fld Crystal Laterality Right lower 11/28/23 07:36 Pleural Color Yellow (Pale Yellow) H 11/28/23 07:36 Pleural Appearance Clear (CLEAR) 11/28/23 07:36 Pleural WBC 64.000 /uL (0-1000) 11/28/23 07:36 Pleural RBC 0.000 10^3/uL 11/28/23 07:36 Pleural Mononuc # Auto 0.059 10^3/uL 11/28/23 07:36 Pleural Polynuclear % 8 % 11/28/23 07:36 Pleural Polynuclear # 0.005 10^3/uL 11/28/23 07:36 Pleural Mononuclear % 92 % 11/28/23 07:36 Pleural Other Cells Rt Right lung 11/28/23 07:36 Hep Bs Antigen Non-reactive (Nonreactive) 11/28/23 09:11 Hep Bs Antibody < 3.5 (11.5-1000) L 11/28/23 09:11 Pathology Message Yes 11/28/23 07:36 Micro: Microbiology 11/28/23 09:15 Blood Culture - Preliminary Blood SPECIMEN COLLECTED 11/28/23 09:11 Blood Culture - Preliminary Blood SPECIMEN COLLECTED A&P Assessment and plan (1) Recurrent right pleural effusion: Likely secondary to underlying CHF/ESRD Patient has a chronic effusion which she is worsened-missed his last 2 dialysis sessions S/p thoracentesis today yielded 1.6 straw-colored fluid Discussed with patient's -in future if it is recurrent-will plan for Pleurx catheter Encouraged to stay compliant with hemodialysis (2) Acute hypercapnic respiratory failure: Likely secondary to underlying fluid overload secondary to CHF/right pleural effusion/ESRD ABG 7.12/pCO2 97-placed on BiPAP-improved to 7.19/85-improved mental mentation- continue BiPAP Today scheduled for hemodialysis to remove fluid Monitor mentation, ABG (3) Sepsis: Worsening WBC Blood cultures, pleural cultures, urine cultures pending Started on vancomycin/meropenem Likely source-chronic sacral decubiti/abscess-General surgery consulted for debridement (4) Decubitus ulcer: General surgery to evaluate for possible debridement/abscess drainage Will continue vancomycin/meropenem for now (5) Physical deconditioning: Overall patient had multiple comorbidities and hospitalizations-leading to significant physical deconditioning Discussed at length with reports patient goals of care-for now patient is full code Staying compliant with her hemodialysis; will plan for Pleurx drain if there is recurrent right pleural effusion; will treat sepsis during this hospitalization However after discharge patient needs acute/subacute rehabilitation for his significant deconditioning Consult Attestations 2 Medical Necessity Statement: Will monitor in ICU for hypercapnic respiratory failure requiring BiPAP Time Spent in Patient Care: Greater than 35 minutes (>than 50% of time spent in counselling and/or direct pt care on unit) . Critical Care Time: This patient has a high probability of clinically significant, sudden or life threatening deterioration of the patient's (pulmonary, sepsis, cardiac) systems required my full, direct attention, the highest level of physician preparedness for urgent intervention and personal management. I managed/supervised life or organ supporting interventions that required frequent physician assessment. I devoted my full attention in the ICU to the direct care of this patient for the period of time indicated above. Time I spent with family or surrogate(s) is included only if the patient was incapable of providing necessary information or participating in decision making. This time includes the following services provided: Telemetry review Mechanical Ventilation Hemodynamic interpretation, assessment and management Review and interpretation of CXR Review and interpretation of lab values Review and interpretation of microbiologic data and culture results Review of medications and administration Review and interpretation of Nutrition requirements and management Discussion of management with other consultants and services Clinical update to family members [x] Data and vital sign review and interpretation [x] Patient assessment, examination and intervention [x] Documentation [x] Medication orders and management Time spent for teaching as well as performing procedures are billed separately and is not included in this note Critical Care Time (min): 63 Coding Level of Care Code Acute Code for Chg Fwd Diagnoses Recurrent right pleural effusion J90 Acute hypercapnic respiratory failure J96.02 Sepsis A41.9 Decubitus ulcer L89.90 Physical deconditioning R53.81 Time Spent (min) 63
[2023-11-28 10:38] LABS: ABG PH Result 7.19 (7.35-7.45); Alveolar-Arterial Oxygen Gradi 1.8 mmHg (5-10); Arterial Blood Gas Hematocrit 35.1 % (42-52); Base Excess ABG 2.1 mmol/L (-2.0-2.0); Blood Gas Allen Test Pos; Blood Gas Operator Identificat WALCI; Blood Gas Sample Site Radial, left; Blood Gas Sample Type Arterial; Blood Gas Tidal Volume 0.45; Carboxyhemoglobin 1.6 %THgb (0.4-20.1); HCO3 ABG 32.4 mmol/L (22-26); HGB O2 Sat 93.4 % (95-100); Ionized Calcium Level - ABG 1.2 mmol/L (1.1-1.4); Methemoglobin 0.7 % (0.4-1.5); Oxygen Device BIPAP; Oxygen Saturation ABG 95.5; PO2 ABG 82.5 mmHg (80.0-100.0); PO2 FiO2 Ratio Arterial Blood 0; Potassium Level - ABG 4.6 mmol/L (3.5-5.0); Total Hemoglobin 11.4 g/dL (14-18)
[2023-11-28 10:40] LABS: ABG PCO2 85.3 mmHg (35-45)
--- NOTE | 2023-11-28 11:08 | ECG_ITS ---
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 Measurements Intervals [place] Rate: 101 P: 74 NH: 180 QRS: 63 QRSD: 105 T: 87 QT: 360 QTc: 467 Interpretive Statements SINUS TACHYCARDIA NONSPECIFIC T-WAVE ABNORMALITY ABNORMAL RHYTHM ECG Compared to ECG 11/28/2023 09:02:15 No significant changes Electronically Signed On 11-29-2023 19:50:27 CDT by Lito Louis M.D. [email or web address]
[2023-11-28 11:46] LABS: Glucose Point of Care 179 mg/dL (70-110)
[2023-11-28 11:49] LABS: Hepatitis B Surface AB < 3.5 (11.5-1000); Hepatitis B Surface Antigen Non-Reactive (Nonreactive)
[2023-11-28] MEDS: insulin lispro 100 unit/1 mL SUBCUT (11:51)
--- NOTE | 2023-11-28 12:31 | P.CONIM_ITS ---
Providers/Reason For Consult 2 Consulting Physician/Specialty*: [facility]/Nephrology Reason for Consult*: ESRD Attending Physician: Wilfredo Mejía MD Primary Care Provider: Evelin Jenkins DO History of Present Illness History of Present Illness Usman Alvarez is a 73 year old male 73-year-old male with past medical history of end-stage renal disease on hemodialysis, coronary artery disease, diabetes, hypertension presented to the hospital and was undergoing thoracentesis. After thoracentesis patient had a syncopal episode and he was admitted to the hospital. He was noted to have a pCO2 of 100 and he was placed on BiPAP currently admitted to ICU. Chest x-ray showed worsening right basilar opacity consistent with worsening atelectasis or consolidation. Lab data significant for hemoglobin of 9.9, potassium 4.8. Review of Systems 2 Narrative: NEGATIVE Medications/Allergies Home Medications Medication Instructions Recorded Confirmed Last Taken Type garlic 1,000 mg capsule 1,000 mg PO DAILY 08/31/19 11/26/23 11/23/23 History aspirin 81 mg tablet,delayed 81 mg PO BEDTIME 02/05/23 11/26/23 11/23/23 History release nitroglycerin 0.4 mg sublingual 0.4 mg sublingual Q5M PRN Chest 02/05/23 11/26/23 Unknown History tablet (Nitrostat) Pain resveratrol 100 mg capsule 100 mg PO BID 02/05/23 11/28/23 11/27/23 History Owls Boot to Right Lower Extremity #1 ea 03/24/23 11/26/23 Unknown Rx Cam Boot to the right #1 ea 03/26/23 11/26/23 Unknown Rx Vitamin B Complex Liquid See Rx Instructions .Route .COMPLEX 04/16/23 11/28/23 11/27/23 History flash glucose scanning reader 07/19/23 11/26/23 Unknown History (FreeStyle Marcial 2 [place]) fenugreek seed 610 mg capsule 610 mg PO DAILY 08/05/23 11/28/23 11/27/23 History insulin detemir U-100 100 unit/mL 8 unit (0.08 mL) SUBCUT QAM #15 mL 10/15/23 11/28/23 11/27/23 Rx (3 mL) subcutaneous pen (Levemir FlexPen) insulin lispro 100 unit/mL See Rx Instructions .Route 10/15/23 11/28/23 11/27/23 Rx subcutaneous pen (Humalog KwikPen .COMPLEX #15 mL (U-100) Insulin) flash glucose sensor (FreeStyle #1 ea 11/07/23 11/26/23 Unknown Rx Marcial 2 Sensor kit) clopidogrel 75 mg tablet 75 mg PO BEDTIME #90 tabs 11/18/23 11/26/23 11/23/23 Rx levothyroxine 175 mcg capsule 175 mcg PO DAILY #60 caps 11/20/23 11/28/23 11/28/23 Rx metoprolol tartrate 50 mg tablet 25 mg PO Q12H PRN high HR or high 11/26/23 11/26/23 11/25/23 History BP Allergies Allergy/AdvReac Type Severity Reaction Status Date / Time Penicillins Allergy Severe Throat Verified 11/26/23 12:47 swells amiodarone Allergy Unknown Verified 11/26/23 12:47 atorvastatin Allergy ADR-Muscle Verified 11/26/23 12:47 Pain azithromycin Allergy ADR/ALGY-Pa Verified 11/26/23 12:47 lpitations ciprofloxacin Allergy hallucinations Verified 11/26/23 12:47 and burning sensation in legs mirtazapine [From Remeron] Allergy ADR-Nightma Verified 11/26/23 12:47 re simvastatin Allergy ADR-Muscle Verified 11/26/23 12:47 Pain Cordarone Allergy Unknown Confusion Uncoded 11/26/23 12:47 Current Medications Generic Name Dose Route Start Last Admin Trade Name Freq PRN Reason Stop Dose Admin Heparin Sodium (Porcine) 5,000 unit 11/28/23 09:30 11/28/23 10:19 Heparin 5,000 Unit/Ml Inj 1 Ml SUBCUT 5,000 unit Q12H SAHARA Administration Insulin Human Lispro 0 unit 11/28/23 12:00 11/28/23 11:51 Insulin Lispro 100 Unit/1 Ml SUBCUT 2 unit WM&BEDTIME SAHARA Administration Protocol PFSH Acute 2 PFSH: Medical History (Updated 11/28/23 @ 11:40 by Marciano Pereira MD) Peripheral arterial disease Pleural effusion Protein calorie malnutrition Atherosclerosis of coronary artery Sputum culture positive for Pseudomonas and bactrim resistant stenotrophomonas in 08/2023 from [place], prolonged ventilation COVID-19 08/2023 History of pneumothorax 07/2023 iatragenic Hypothyroidism SVT (supraventricular tachycardia) Atrial flutter does not tolerate amiodarone per ESRD on hemodialysis Hopeful that he will be able to come off of dialysis Leg wound, left Aspiration pneumonitis Pulmonary edema Dehiscence of wound 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 Atelectasis, left 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 Hyperlipidemia Diabetic peripheral neuropathy associated with type 2 diabetes mellitus Gangrenous toe CKD (chronic kidney disease) Systolic heart failure Pleural effusion, left Non-healing ulcer Ischemic cardiomyopathy Diabetic ulcer of right foot Kidney stone Amputation toe Diabetes mellitus with peripheral vascular disease HTN (hypertension) Diabetes Surgical History History of thoracentesis 08/2022, 07/2023 right pleural effusion, S/P right coronary artery (RCA) stent placement 08/2023 at [place], 3 JETT to RCA [(2) 2.5 x 38mm, (1) 2.5 x 12 mm] History of cardiac catheterization 08/2023 at [facility] History of amputation of toe S/P transmetatarsal amputation of foot all toes right foor Status post amputation of toe of right foot H/O chest tube placement S/P cholecystectomy S/P tonsillectomy S/P cataract extraction Family History Father Cancer LUNG Mother CAD (coronary artery disease) Diabetes Congestive heart failure (CHF) Myocardial infarction Social History Smoking and tobacco/nicotine status: never used tobacco/nicotine Alcohol intake: never Substance/Drug Use: never Household members: spouse Marital status: Current occupational status: retired Vitals/I&O/Wt Last Vital Signs Temp 97.9 F 11/28/23 11:15 Pulse 102 H 11/28/23 12:00 Resp 29 H 11/28/23 12:00 BP 140/67 11/28/23 12:00 Pulse Ox 99 11/28/23 12:00 O2 Del Method BiPAP 11/28/23 09:27 O2 Flow Rate 2.5 11/28/23 07:54 FiO2 28 11/28/23 11:21 0411/28/23 11/28/23 22:59 06:59 14:59 Output Total 1600 / 1600 Balance -1600 / -1600 Weight last 48 hrs Weight 81.647 kg Weight 81.647 kg Physical Exam 2 Narrative: AWAKE , ALERT HEERNT S1S2 RRR PER REPORT LUNGS CLEAR PER REPORT NO EDEMA Data 11/28/23 09:11 Micro: Microbiology 11/28/23 09:15 Blood Culture - Preliminary Blood SPECIMEN COLLECTED 11/28/23 09:11 Blood Culture - Preliminary Blood SPECIMEN COLLECTED A&P Assessment and plan (1) End-stage renal disease on hemodialysis: Plan 1. End-stage renal disease: On dialysis per MWF schedule, plan for HD today ultrafiltration as tolerated 2. Acute on chronic respiratory failure, currently on BiPAP, status post paracentesis 3. Anemia: RAUL with HD 4. History of hypertension 5. History of coronary artery disease Patient evaluated using audiovisual cart. Time spent 40 minutes Consult Attestations 2 Medical Necessity Statement: PER MEDICINE Coding Level of Care Code Acute Code for Chg Fwd Diagnoses End-stage renal disease on hemodialysis N18.6; Z99.2
[2023-11-28] MEDS: heparin, porcine 1,000 unit/mL INJ 10 mL 1000 UNIT IV (12:50)
[2023-11-28] MEDS: albumin 12.5 GM/50 ML VIAL IV (13:35)
[2023-11-28 13:51] LABS: Basophils # 0.2 10^3/uL (0.0-0.1); Basophils % 0.9 %; Eosinophils # 0.3 10^3/uL (0.0-0.8); Eosinophils % 1.2 %; Hematocrit 42.9 % (37-53); Lymphocytes # 10.7 10^3/uL (0.8-4.8); Lymphocytes % 39.2 %; Mean Corpuscular HGB Conc 29.6 g/dL (30-55); Mean Corpuscular Hemoglobin 29.5 pg (27-33); Mean Corpuscular Volume 99.8 fl (82-101); Mean Platelet Volume 9.4 fL (7.4-10.4); Monocytes % 3.6 %; Neutrophils # 14.82 10^3/uL (1.8-7.7); Neutrophils % 54.5 %; Nucleated Red Blood Cells % 0 %; Platelet Count 501 10^3/cmm (157-399); Red Cell Distribution Width 14.3 % (12.1-15.1); White Blood Count 27.21 10^3/uL (3.29-11.43)
[2023-11-28 14:44] LABS: Slide Review Slide Review Perform
[2023-11-28 15:09] LABS: Troponin T (5th) Once 186 ng/L (0-15)
--- NOTE | 2023-11-28 15:19 | ECG_ITS ---
[facility] Test Date: 2023-11-28 Pat Name: Usman Alvarez Department: Room: ICU12 Gender: Male [employer] Worker: : 1950 Requested By: Marciano Gatica Order Number: [id number] Diandra MD: Lito Louis M.D. Measurements Intervals [place] Rate: 91 P: 78 SD: 178 QRS: 58 QRSD: 104 T: 115 QT: 364 QTc: 449 Interpretive Statements SINUS RHYTHM INCOMPLETE RIGHT BUNDLE BRANCH BLOCK [90+ ms QRS DURATION, TERMINAL R IN V1/V2, 40+ ms S IN I/aVL/V4/V5/V6] ST DEVIATION AND MODERATE T-WAVE ABNORMALITY, CONSIDER ANTEROLATERAL ISCHEMIA [-0.1+ mV T-WAVE IN V3-V6] Compared to ECG 11/28/2023 11:19:39 Incomplete right bundle-branch block now present Possible ischemia now present Sinus tachycardia no longer present T-wave abnormality still present Electronically Signed On 11-29-2023 19:57:11 CDT by Lito Louis M.D. [id number]
--- NOTE | 2023-11-28 15:44 | PC.SOCIAL ---
Pg 2 IMM Explained to pt & Pg 2 IMM. No questions voiced. Provided pt a copy. Initialed, dated, & timed a copy & placed in chart.
[2023-11-28] MEDS: meropenem 1,000 MG in sodium chloride 0.9% (plus) 50 ML 100 MG IV (16:52)
[2023-11-28] MEDS: vancomycin 1,250 MG/250 ML PIGGYBACK 250 MG IV (17:11)
[2023-11-28 17:12] LABS: Glucose Point of Care 95 mg/dL (70-110)
[2023-11-28 17:59] LABS: Bilirubin Urine Neg (Negative); Blood Urine 2+ (Negative); Glucose Urine UA Norm (Normal); Ketones Urine 1+ (Negative); Nitrate Urine Negative (Negative); Protein Urine 3+ (Negative); Urine Appearance SL Hazy (CLEAR); Urine Color Yellow (Yellow); Urobilinogen Urine Norm (Negative); pH Urine 5 (5-7)
[2023-11-28 18:00] LABS: Leukocyte Esterase Urine 2+ (Negative)
--- NOTE | 2023-11-28 18:00 | PC.NURSE ---
surgeon here exam decub on bottom.. white fibrotic tissue removed and debredied at bedside under area was liquid yellowish fluid specimen sent to lab and area packed with silver infused dressing and covered with optifoam
[2023-11-28 18:01] LABS: Add Urine Culture? Yes; Bacteria Urine 1+ /hpf; RBC Urine 0-4 /hpf (0-2); WBC Urine TOO NUMEROUS TO CNT /hpf (0-5)
--- NOTE | 2023-11-28 18:26 | P.CONIM_ITS ---
Providers/Reason For Consult 2 Consulting Physician/Specialty*: General surgery Reason for Consult*: Decubitus ulcer Attending Physician: Wilfredo Mejía MD Primary Care Provider: Evelin Jenkins DO History of Present Illness History of Present Illness Usman Alvarez is a 73 year old male who was admitted to the hospital with suspected CO2 narcosis after pulmonology procedure. I have been consulted since the patient has a chronic sacral decubitus ulcer that appears to have purulent drainage. Per family member report patient moves around in a wheelchair and ambulates very minimally, they have noticed decubitus ulcer for months now but it has failed to heal with local wound care interventions. Review of Systems 2 General: Reports: ROS unobtainable due to medical condition and ROS unobtainable due to mental status Medications/Allergies Home Medications Medication Instructions Recorded Confirmed Last Taken Type garlic 1,000 mg capsule 1,000 mg PO DAILY 08/31/19 11/26/23 11/23/23 History aspirin 81 mg tablet,delayed 81 mg PO BEDTIME 02/05/23 11/26/23 11/23/23 History release nitroglycerin 0.4 mg sublingual 0.4 mg sublingual Q5M PRN Chest 02/05/23 11/26/23 Unknown History tablet (Nitrostat) Pain resveratrol 100 mg capsule 100 mg PO BID 02/05/23 11/28/23 11/27/23 History Owls Boot to Right Lower Extremity #1 ea 03/24/23 11/26/23 Unknown Rx Cam Boot to the right #1 ea 03/26/23 11/26/23 Unknown Rx Vitamin B Complex Liquid See Rx Instructions .Route .COMPLEX 04/16/23 11/28/23 11/27/23 History flash glucose scanning reader 07/19/23 11/26/23 Unknown History (FreeStyle Marcial 2 [place]) fenugreek seed 610 mg capsule 610 mg PO DAILY 08/05/23 11/28/23 11/27/23 History insulin detemir U-100 100 unit/mL 8 unit (0.08 mL) SUBCUT QAM #15 mL 10/15/23 11/28/23 11/27/23 Rx (3 mL) subcutaneous pen (Levemir FlexPen) insulin lispro 100 unit/mL See Rx Instructions .Route 10/15/23 11/28/23 11/27/23 Rx subcutaneous pen (Humalog KwikPen .COMPLEX #15 mL (U-100) Insulin) flash glucose sensor (FreeStyle #1 ea 11/07/23 11/26/23 Unknown Rx Marcial 2 Sensor kit) clopidogrel 75 mg tablet 75 mg PO BEDTIME #90 tabs 11/18/23 11/26/23 11/23/23 Rx levothyroxine 175 mcg capsule 175 mcg PO DAILY #60 caps 11/20/23 11/28/23 11/28/23 Rx metoprolol tartrate 50 mg tablet 25 mg PO Q12H PRN high HR or high 11/26/23 11/26/23 11/25/23 History BP Allergies Allergy/AdvReac Type Severity Reaction Status Date / Time Penicillins Allergy Severe Throat Verified 11/26/23 12:47 swells amiodarone Allergy Unknown Verified 11/26/23 12:47 atorvastatin Allergy ADR-Muscle Verified 11/26/23 12:47 Pain azithromycin Allergy ADR/ALGY-Pa Verified 11/26/23 12:47 lpitations ciprofloxacin Allergy hallucinations Verified 11/26/23 12:47 and burning sensation in legs mirtazapine [From Remeron] Allergy ADR-Nightma Verified 11/26/23 12:47 re simvastatin Allergy ADR-Muscle Verified 11/26/23 12:47 Pain Cordarone Allergy Unknown Confusion Uncoded 11/26/23 12:47 Current Medications Generic Name Dose Route Start Last Admin Trade Name Freq PRN Reason Stop Dose Admin Heparin Sodium (Porcine) 5,000 unit 11/28/23 09:30 11/28/23 10:19 Heparin 5,000 Unit/Ml Inj 1 Ml SUBCUT 5,000 unit Q12H SAHARA Administration Albumin Human 12.5 gm in 50 mls @ 60 mls/hr 11/28/23 11:19 11/28/23 16:29 Albumin IV Infused PRN PRN Infusion Hypotension and/or symptomatic Meropenem 1,000 mg/ Sodium 50 mls @ 100 mls/hr 11/28/23 15:45 11/28/23 16:52 Chloride IV 100 mls/hr Q12H SAHARA Administration Protocol Vancomycin/PEG/NADA/Lysine/Water 1,250 mg in 250 mls @ 250 mls/hr 11/28/23 16:00 11/28/23 17:11 Vancocin IV 250 mls/hr Q36H SAHARA Administration Insulin Human Lispro 0 unit 11/28/23 12:00 11/28/23 17:15 Insulin Lispro 100 Unit/1 Ml SUBCUT Not Given WM&BEDTIME SAHARA Protocol PFSH Acute 2 PFSH: Medical History (Updated 11/28/23 @ 18:29 by Dallas Puri MD) Peripheral arterial disease Pleural effusion Protein calorie malnutrition Atherosclerosis of coronary artery Sputum culture positive for Pseudomonas and bactrim resistant stenotrophomonas in 08/2023 from [place], prolonged ventilation COVID-19 08/2023 History of pneumothorax 07/2023 iatragenic Hypothyroidism SVT (supraventricular tachycardia) Atrial flutter does not tolerate amiodarone per ESRD on hemodialysis Hopeful that he will be able to come off of dialysis Leg wound, left Aspiration pneumonitis Pulmonary edema Dehiscence of wound 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 Atelectasis, left 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 Hyperlipidemia Diabetic peripheral neuropathy associated with type 2 diabetes mellitus Gangrenous toe CKD (chronic kidney disease) Systolic heart failure Pleural effusion, left Non-healing ulcer Ischemic cardiomyopathy Diabetic ulcer of right foot Kidney stone Amputation toe Diabetes mellitus with peripheral vascular disease HTN (hypertension) Diabetes Surgical History History of thoracentesis 08/2022, 07/2023 right pleural effusion, S/P right coronary artery (RCA) stent placement 08/2023 at [place], 3 JETT to RCA [(2) 2.5 x 38mm, (1) 2.5 x 12 mm] History of cardiac catheterization 08/2023 at [place] History of amputation of toe S/P transmetatarsal amputation of foot all toes right foor Status post amputation of toe of right foot H/O chest tube placement S/P cholecystectomy S/P tonsillectomy S/P cataract extraction Family History Father Cancer LUNG Mother CAD (coronary artery disease) Diabetes Congestive heart failure (CHF) Myocardial infarction Social History Smoking and tobacco/nicotine status: never used tobacco/nicotine Alcohol intake: never Substance/Drug Use: never Household members: spouse Marital status: Current occupational status: retired Vitals/I&O/Wt Last Vital Signs Temp 96.6 F L 11/28/23 16:36 Pulse 100 11/28/23 16:36 Resp 18 11/28/23 16:36 BP 132/62 11/28/23 16:36 Pulse Ox 98 11/28/23 16:00 O2 Del Method BiPAP 11/28/23 09:27 O2 Flow Rate 2.5 11/28/23 07:54 FiO2 28 11/28/23 15:14 11/28/23 11/28/23 11/28/23 06:59 14:59 22:59 Intake Total 400 / 400 Output Total 1600 / 1600 3500 / 5100 Balance -1600 / -1600 -3100 / -4700 Weight last 48 hrs Weight 171 lb 1.259 oz Weight 180 lb Weight 180 lb Physical Exam 2 Back/Pelvis: OTHER: Of the sacral region there is a 1.5 x 110 cm sacral decubitus ulcer with significant slough at the base. Urinary Catheter Management: Kincaid: Cath Placed During This Visit: yes Urinary Catheter Date of Insertion: 11/28/23 Urinary Catheter Time of Insertion: 16:58 Data 11/28/23 09:11 11/28/23 09:11 Micro: Microbiology 11/28/23 07:36 Gram Stain - Final Pleural Fluid 11/28/23 09:15 Blood Culture - Preliminary Blood SPECIMEN COLLECTED 11/28/23 09:11 Blood Culture - Preliminary Blood SPECIMEN COLLECTED A&P Assessment and plan (1) Sacral decubitus ulcer, stage IV: Plan After my complete assessment and physical examination showing evidence of a 1.5 x 1 cm sacral decubitus ulcer with significant slough at the base I decided to proceed with a bedside debridement after discussing this with the patient and family member. A bedside debridement was done using a curette and sharp scissors, all the slough was removed from the top of the ulcer, after removal of the slough it was noted that the underlying tissue appeared to be unhealthy with an abscess cavity and significant amount of slough at the base. The abscess was evacuated and cultures were taken. Curette was used to clean the base of the wound to healthy bleeding tissue. The wound was then packed with silver dressing and Optifoam was placed on top. The final measurements of the wound was 1.5 x 1 x 1 cm with a 5 cm undermining on the superior aspect of the wound. Patient most likely will require sequential debridements and will benefit from outpatient wound care follow-up. I will continue to follow the patient while he remains in house. No need for additional surgical debridement is expected. Coding Level of Care Code 08008 Diagnoses Sacral decubitus ulcer, stage IV L89.154
[2023-11-28 21:10] LABS: Glucose Point of Care 89 mg/dL (70-110)
[2023-11-28] MEDS: clopidogrel 75 mg Tablet PO (21:11)
[2023-11-28] MEDS: aspirin 81 mg EC Tablet PO (21:11)
[2023-11-28 21:23] LABS: Troponin 5 6HR 342.2 ng/L (0-15); Troponin 5 6HR Delta 156.2 ng/L (0-12)
[2023-11-29] VITALS (36 sets, daily range): BP systolic 98–141; BP diastolic 45–75; PULSE 82–101; RESP 14–36; TEMP 36.1–36.6; O2SAT 80–100; BMI 24.8
[2023-11-29] MEDS: meropenem 1,000 MG in sodium chloride 0.9% (plus) 50 ML 100 MG IV ×2 (03:49→14:57)
[2023-11-29 06:36] LABS: Basophils # 0.1 10^3/uL (0.0-0.1); Eosinophils # 0.1 10^3/uL (0.0-0.8); Eosinophils % 1.2 %; Hematocrit 34.8 % (37-53); Lymphocytes # 3.2 10^3/uL (0.8-4.8); Lymphocytes % 26.1 %; Mean Corpuscular HGB Conc 29.9 g/dL (30-55); Mean Corpuscular Hemoglobin 29.8 pg (27-33); Mean Corpuscular Volume 99.7 fl (82-101); Mean Platelet Volume 8.9 fL (7.4-10.4); Monocytes # 0.6 10^3/uL (0.2-0.9); Monocytes % 4.6 %; Neutrophils # 8.04 10^3/uL (1.8-7.7); Neutrophils % 66.7 %; Nucleated Red Blood Cells % 0 %; Platelet Count 288 10^3/cmm (157-399); Red Blood Count 3.49 10^6/uL (3.85-5.65); Red Cell Distribution Width 14.2 % (12.1-15.1); White Blood Count 12.05 10^3/uL (3.29-11.43)
[2023-11-29 06:55] LABS: Alanine Aminotransferase 8 U/L (0-41); Albumin Level 2.9 g/dL (3.5-5.2); Alkaline Phosphatase 74 U/L (40-130); Anion Gap 16.7 (5-19); Aspartate Amino Transferase 20 U/L (0-40); Blood Urea Nitrogen 30 mg/dL (8-23); Calcium 8.4 mg/dL (8.5-10.5); Carbon Dioxide 27 mmol/L (22-29); Chloride 100 mmol/L (98-107); Globulin 2.4 g/dL (1.3-4.6); Glucose 77 mg/dL (65-115); Magnesium 1.9 mg/dL (1.7-2.3); Osmolality Calculated 293 mOsm/kg (285-295); Potassium 4.7 mmol/L (3.5-5.1); Sodium 139 mmol/L (136-145); Total Bilirubin 0.3 mg/dL (0.15-1.2); Total Protein 5.3 g/dL (6.6-8.7)
[2023-11-29 06:58] LABS: Creatinine Clr Calc Pharmacy 30.9364
[2023-11-29 08:07] LABS: Glucose Point of Care 73 mg/dL (70-110)
--- NOTE | 2023-11-29 08:21 | P.PN_ITS ---
Subjective 2 Subjective: no new comlaints Medications: Reviewed: Yes Vitals/I&O/Wt Last Vital Signs Temp 97.8 F 11/29/23 00:00 Pulse 88 11/29/23 06:00 Resp 22 H 11/29/23 06:00 BP 127/64 11/29/23 06:00 Pulse Ox 94 11/29/23 06:00 O2 Del Method BiPAP 11/29/23 06:00 O2 Flow Rate 2 11/29/23 03:00 FiO2 28 11/29/23 04:30 11/28/23 11/29/23 11/29/23 22:59 06:59 14:59 Intake Total 710 / 710 50 / 760 Output Total 3550 / 5150 50 / 5200 Balance -2840 / -4440 0 / -4440 Weight last 48 hrs Weight 80.739 kg Weight 77.6 kg Weight 81.647 kg Weight 81.647 kg Physical Exam 2 Narrative: AWAKE , ALERT HEERNT S1S2 RRR PER REPORT LUNGS CLEAR PER REPORT NO EDEMA Urinary Catheter Management: Kincaid: Cath Placed During This Visit: yes Reason for Continuing Indwelling Catheter: Accurate Measurement of Urinary Output in Critically Ill Patients Urinary Catheter Date of Insertion: 11/28/23 Urinary Catheter Time of Insertion: 16:58 Data 11/29/23 06:22 11/29/23 06:22 Micro: Microbiology 11/28/23 07:36 Gram Stain - Final Pleural Fluid 11/28/23 09:15 Blood Culture - Preliminary Blood SPECIMEN COLLECTED 11/28/23 09:11 Blood Culture - Preliminary Blood SPECIMEN COLLECTED A&P Assessment and plan (1) End-stage renal disease on hemodialysis: Plan 1. End-stage renal disease: On dialysis per MWF schedule, plan for HD tomorrow ultrafiltration as tolerated 2. Acute on chronic respiratory failure, currently on BiPAP, status post paracentesis 3. Anemia: RAUL with HD 4. History of hypertension 5. History of coronary artery disease Patient evaluated using audiovisual cart. Time spent 40 minutes Attestations 2 Medical Necessity Statement*: per lucy Coding Level of Care Code Acute Code for Chg Fwd Diagnoses End-stage renal disease on hemodialysis N18.6; Z99.2
[2023-11-29] MEDS: levothyroxine 175 mcg Tablet PO (08:31)
[2023-11-29] MEDS: heparin 5,000 unit/mL INJ 1 mL 5000 UNIT SUBCUT ×2 (08:31→20:35)
--- NOTE | 2023-11-29 09:00 | PC.NURSE ---
pt requested protonix not be given... causes side effect of chest pain and abd pain pt agreeable to that . not given per request
[2023-11-29 10:03] LABS: ABG PCO2 52.3 mmHg (35-45); ABG PH Result 7.36 (7.35-7.45); Arterial Blood Gas Hematocrit 29.5 % (42-52); Base Excess ABG 3.3 mmol/L (-2.0-2.0); Blood Gas Allen Test Pos; Blood Gas Operator Identificat BROMA; Blood Gas Sample Site Radial, left; Blood Gas Sample Type Arterial; Carboxyhemoglobin 1.6 %THgb (0.4-20.1); HCO3 ABG 29.5 mmol/L (22-26); HGB O2 Sat 97.3 % (95-100); Ionized Calcium Level - ABG 1.1 mmol/L (1.1-1.4); Methemoglobin 0.6 % (0.4-1.5); Oxygen Device NC; Oxygen Saturation ABG 99.5; PO2 FiO2 Ratio Arterial Blood 0; Potassium Level - ABG 4.3 mmol/L (3.5-5.0); Total Hemoglobin 9.6 g/dL (14-18)
--- NOTE | 2023-11-29 10:12 | P.PN_ITS ---
Subjective 2 Subjective: Patient doing well overnight, much more responsive this morning alert and oriented. Denies any significant complaints, minimal pain on the sacral region at the area of debridement. Vitals/I&O/Wt Last Vital Signs Temp 97.8 F 11/29/23 00:00 Pulse 101 H 11/29/23 10:00 Resp 27 H 11/29/23 10:00 BP 130/65 11/29/23 10:00 Pulse Ox 98 11/29/23 10:00 O2 Del Method BiPAP 11/29/23 06:00 O2 Flow Rate 2 11/29/23 03:00 FiO2 28 11/29/23 04:30 11/28/23 11/29/23 11/29/23 22:59 06:59 14:59 Intake Total 710 / 710 50 / 760 350 / 350 Output Total 3550 / 5150 50 / 5200 Balance -2840 / -4440 0 / -4440 350 / 350 Weight last 48 hrs Weight 178 lb Weight 171 lb 1.259 oz Weight 180 lb Weight 180 lb Physical Exam 2 Back/Pelvis: OTHER: Sacral decubitus ulcer was evaluated, packing was removed, minimal purulence was noted but the base of the wound appeared to be much more healthy and with minimal cord?at the bedside I was able to remove the majority of the slough from the base. Wet-to-dry packing was then applied. Urinary Catheter Management: Kincaid: Cath Placed During This Visit: yes Reason for Continuing Indwelling Catheter: Accurate Measurement of Urinary Output in Critically Ill Patients Urinary Catheter Date of Insertion: 11/28/23 Urinary Catheter Time of Insertion: 16:58 Data 11/29/23 06:22 11/29/23 06:22 Micro: Microbiology 11/28/23 Unknown Gram Stain - Final Buttock 11/28/23 09:15 Blood Culture - Preliminary Blood NEGATIVE TO DATE 11/28/23 09:11 Blood Culture - Preliminary Blood NEGATIVE TO DATE 11/28/23 07:36 Gram Stain - Final Pleural Fluid A&P Assessment and plan (1) Sepsis: (2) Decubitus ulcer: Plan Good progression from the general surgery standpoint, patient has a stage IV sacral decubitus ulcer. After sequential debridements yesterday and today wound appears to be healthy margins are viable just covered with minimal amount of slough and there is some slough at the base of the wound. I consider that it would be appropriate to continue with wet-to-dry advanced wound care modalities. I have also advised the patient and family member that they need to keep moving him every 2 hours to avoid pressure in the sacral region that may result in worsening of this ulcer. They show understanding. Dressing changes twice a day and then patient can follow-up as outpatient in the wound care clinic for sequential debridements and Attestations 2 Medical Necessity Statement*: Per medical team Coding Level of Care Code Acute Code for [facility] Fw Diagnoses Sepsis A41.9 Decubitus ulcer L89.90
--- NOTE | 2023-11-29 13:22 | PM.PN ---
Subjective Subjective: Resting comfortably in bed, no member at bedside Was dialyzed yesterday ? Plan for another dialysis session tomorrow ? Seen by general surgery this morning and was debrided ? Says he feels better than when he was admitted. Vitals/I&O/Wt Last Vital Signs Temp 97.8 F 11/29/23 00:00 Pulse 101 H 11/29/23 10:00 Resp 27 H 11/29/23 10:00 BP 130/65 11/29/23 10:00 Pulse Ox 98 11/29/23 10:00 O2 Del Method BiPAP 11/29/23 06:00 O2 Flow Rate 2 11/29/23 03:00 FiO2 28 11/29/23 04:30 11/28/23 11/29/23 11/29/23 22:59 06:59 14:59 Intake Total 710 / 710 50 / 760 350 / 350 Output Total 3550 / 5150 50 / 5200 Balance -2840 / -4440 0 / -4440 350 / 350 Weight last 48 hrs Weight 80.739 kg Weight 77.6 kg Weight 81.647 kg Weight 81.647 kg Physical Exam Narrative: General exam demonstrates a white male, chronically ill-appearing. Cardiovascular slight tachycardia, regular. Dialysis catheter noted right chest Lungs diminished breath sounds bilaterally right greater than left. No crackles. No wheezes Abdomen is soft, positive bowel sounds. No obvious organomegaly Extremities 2+ edema bilaterally. No cyanosis or clubbing. Neuro: No focal deficits Skin: No rash Urinary Catheter Management: Kincaid: Cath Placed During This Visit: yes Reason for Continuing Indwelling Catheter: Accurate Measurement of Urinary Output in Critically Ill Patients Urinary Catheter Date of Insertion: 11/28/23 Urinary Catheter Time of Insertion: 16:58 Data 11/29/23 06:22 11/29/23 06:22 Micro: Microbiology 11/28/23 07:36 Gram Stain - Final Pleural Fluid Body Fluid Culture - Preliminary 11/28/23 Unknown Gram Stain - Final Buttock 11/28/23 09:15 Blood Culture - Preliminary Blood NEGATIVE TO DATE 11/28/23 09:11 Blood Culture - Preliminary Blood NEGATIVE TO DATE A&P Assessment and plan (1) Syncope: Patient presents with a syncopal episode with his thoracentesis. From description, this is most likely secondary to CO2 narcosis. Monitor on telemetry in the ICU (2) Acute hypercapnic respiratory failure: Patient has acute hypercarbic respiratory failure Pulmonary consult appreciated Continue AVAPS Repeat blood gas later today No need for intubation currently Goal oxygen saturation 88 to 92%, especially when he comes off BiPAP/AVAPS (3) Acute encephalopathy: Acute encephalopathy secondary to acute CO2 narcosis. This appears to be improving slowly. (4) Diabetes: Sliding scale insulin No evidence of DKA Consistent carb diet when diet is started Qualifiers: Diabetes mellitus type: type 2 Diabetes mellitus long term acute care registered nurse insulin use: with long term acute care registered nurse use Diabetes mellitus complication status: with kidney complications Diabetes mellitus complication detail: with chronic kidney disease Chronic kidney disease stage: stage 5, not on chronic dialysis Qualified Code(s): E11.22 - Type 2 diabetes mellitus with diabetic chronic kidney disease; N18.5 - Chronic kidney disease, stage 5; Z79.4 - senior care (current) use of insulin (5) End-stage renal disease on hemodialysis: He has missed 2 dialysis sessions. This could contribute to his overall encephalopathy Nephrology consulted Was dialyzed yesterday. Next dialysis session tomorrow. 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 There is some scarring still present. (7) Pressure injury of sacral region, unstageable: There is an unstageable ulcer, with a fair amount of fibrin in his sacral region. It has some drainage. Will have surgery consult for wound care instructions, and he will need follow-up. (8) Recurrent right pleural effusion: Patient had a right pleural effusion drained today. If this recurs, a more permanent drain may be placed. Plan Elevated troponin. Patient reports no chest pain. I suspect this is a type II elevation or elevation secondary to his renal disease. Trend. Last echo in June demonstrated an EF of 45 to 50%. EKGs are similar to previous. Other medical problems as outlined in past medical history Troponins elevated, delta troponin at 6 hours 156. While this may be type II UT, NSTEMI not ruled out. Will consult cardiology. Full code currently Heparin subcutaneous for DVT prophylaxis I do not see need for antibiotics currently. Attestations Medical Necessity Statement*: Will require greater than 2 midnight stay for evaluation and treatment of syncope, recurrent pleural effusion, CO2 narcosis, respiratory failure, skipped dialysis with need for acute dialysis. Critical Care Time: Critical Care Time (min): 0 Diagnoses Syncope R55 Acute hypercapnic respiratory failure J96.02 Acute encephalopathy G93.40 Type 2 diabetes mellitus with stage 5 chronic kidney disease not on chronic dialysis, with long-term current use of insulin E11.22; N18.5; Z79.4 Diabetes mellitus type: type 2 Diabetes mellitus alf insulin use: with long term acute care registered nurse use Diabetes mellitus complication status: with kidney complications Diabetes mellitus complication detail: with chronic kidney disease Chronic kidney disease stage: stage 5, not on chronic dialysis End-stage renal disease on hemodialysis N18.6; Z99.2 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
[2023-11-29] MEDS: insulin lispro 100 unit/1 mL SUBCUT ×3 (13:49→20:34)
[2023-11-29] MEDS: morphine 4 mg/mL SDV 1 mL 2 MG IVP ×2 (16:27→20:18)
--- NOTE | 2023-11-29 16:36 | PC.NURSE ---
doctor called at wifes request he hurts all over .. morphine given per order
--- NOTE | 2023-11-29 17:47 | PM.CONSULT ---
Providers/Reason For Consult Consulting Physician/Specialty*: SEVERIANO Louis MD/cardiology Reason for Consult*: Patient history of CAD, admitted to hospital with a syncope/acute encephalopathy due to CO2 narcosis and respiratory acidosis, was found to have elevated troponin T Requesting Physician: Dr. Moreno Attending Physician: Wilfredo Mejía MD Primary Care Provider: Evelin Jenkins DO History of Present Illness History of Present Illness Usman Alvarze is a 73 year old male who is admitted to hospital with an episode of syncope. He was found to have features of acute encephalopathy from CO2 narcosis. He has a history of severe COPD and recurrent right-sided pleural effusion. He also is on hemodialysis and missed 2 of his dialysis. He had an ultrasound guided thoracentesis yesterday which drained around 1.4 L of pleural fluid. Following this procedure, patient had a syncopal episode. He was found to have a pCO2 of 100 with a pH of 7.1. With the BiPAP treatment, his mental status is gradually improved. He was found to have an elevated troponin ti with a Significant delta at 6 hours. Cardiology consult is requested for further cardiac evaluation recommendations. The patient denies any chest pain at this time. He has a tight feeling in the chest, whenever his respiratory status gets worse. He has no unusual chest pain or palpitations.He has a history of atherosclerotic heart disease and had PCI of the LAD and right coronary arteries. The most recent PCI was in August. He has been compliant with medications. He has been on hemodialysis for end-stage renal disease, since June of last year. He started having recurrent right-sided pleural effusion. Yesterday was the second thoracentesis that he had. He also is known to have possible aspiration pneumonia and chronic left lower lobe atelectasis/consolidation. This patient had a PCI of the LAD in 2019. He had moderate disease in the right coronary artery at that time. The FFR on this lesion was in the normal range. So it was decided to treat him medically. He stopped taking the Plavix after a year. In August 11, 2023, he presented with an out of hospital cardiac arrest. He also had a COVID-19 infection at that time. He was transferred to [facility] for an ICU bed. He remained intubated for 17 days or so. He had a cardiac catheterization during that hospital stay which revealed a high-grade lesion in the right coronary artery for which he underwent PCI. He ended up in having 3 stents in the same artery. Details of this is not available at this time. He has a history of atrial flutter and had been on Eliquis. According to the , he had a significant bleed from his left leg without any provocation. Also the patient did not feel good while being on the medication. So he was taken off this. Pt is known to have ischemic cardiomyopathy. His LV ejection fraction was around 30 to 35% in February 2023. The repeat echocardiogram, a limited 2D echo on the revealed ejection fraction around 45%. He has an extensive history of peripheral artery disease. He had multiple peripheral arterial interventions in the right lower extremity. He ended up in having toe amputations for dry gangrene. He has a totally occluded SFA. He has diffuse disease in the popliteal artery and the infrapopliteal vessels. A surgical consult was obtained from Dr. Moraes. He was found to be not a candidate for any surgical intervention. In , he had a transmetatarsal amputation. He has a healing ulcer at the amputation site. This is being followed by Dr. Baird. He also has a decubitus ulcer with some pus collection which had to be drained during this hospital admission. He also may have a UTI and is being treated with antibiotics. Patient is known to have diabetes complicated with diabetic neuropathy. He also has a history of hypertension, dyslipidemia, contrast-induced nephropathy, pleural effusion and chronic anemia. Review of Systems Narrative: CONSTITUTIONAL: No fever or chills. EYES: No blurring of vision or other visual disturbances lately. ENT: No hoarseness of voice, auditory disturbances or sore throat. CARDIOVASCULAR: As mentioned above. RESPIRATORY: COPD with recurrent UTI, chronic aspiration pneumonia, recurrent pleural effusion GASTROINTESTINAL: No hematemesis or melena. GENITOURINARY: End-stage renal disease, requiring hemodialysis INTEGUMENTARY: Nonhealing and healing ulcers NEURO: Anxiety disorder PSYCHIATRIC: No history of psychosis or major depression. HEMATOLOGIC: Chronic anemia ENDOCRINE: No history of polyuria or polydipsia. MUSCULOSKELETAL: No recent joint pain or swelling. ALLERGY/IMMUNOLOGY: As mentioned above. Medications/Allergies Home Medications Medication Instructions Recorded Confirmed Last Taken Type garlic 1,000 mg capsule 1,000 mg PO DAILY 08/31/19 11/26/23 11/23/23 History aspirin 81 mg tablet,delayed 81 mg PO BEDTIME 02/05/23 11/26/23 11/23/23 History release nitroglycerin 0.4 mg sublingual 0.4 mg sublingual Q5M PRN Chest 02/05/23 11/26/23 Unknown History tablet (Nitrostat) Pain resveratrol 100 mg capsule 100 mg PO BID 02/05/23 11/28/23 11/27/23 History Owls Boot to Right Lower Extremity #1 ea 03/24/23 11/26/23 Unknown Rx Cam Boot to the right #1 ea 03/26/23 11/26/23 Unknown Rx Vitamin B Complex Liquid See Rx Instructions .Route .COMPLEX 04/16/23 11/28/23 11/27/23 History flash glucose scanning reader 07/19/23 11/26/23 Unknown History (FreeStyle Marcial 2 [place]) fenugreek seed 610 mg capsule 610 mg PO DAILY 08/05/23 11/28/23 11/27/23 History insulin detemir U-100 100 unit/mL 8 unit (0.08 mL) SUBCUT QAM #15 mL 10/15/23 11/28/23 11/27/23 Rx (3 mL) subcutaneous pen (Levemir FlexPen) insulin lispro 100 unit/mL See Rx Instructions .Route 10/15/23 11/28/23 11/27/23 Rx subcutaneous pen (Humalog KwikPen .COMPLEX #15 mL (U-100) Insulin) flash glucose sensor (FreeStyle #1 ea 11/07/23 11/26/23 Unknown Rx Marcial 2 Sensor kit) clopidogrel 75 mg tablet 75 mg PO BEDTIME #90 tabs 11/18/23 11/26/23 11/23/23 Rx levothyroxine 175 mcg capsule 175 mcg PO DAILY #60 caps 11/20/23 11/28/23 11/28/23 Rx metoprolol tartrate 50 mg tablet 25 mg PO Q12H PRN high HR or high 11/26/23 11/26/23 11/25/23 History BP Allergies Allergy/AdvReac Type Severity Reaction Status Date / Time Penicillins Allergy Severe Throat Verified 11/26/23 12:47 swells amiodarone Allergy Unknown Verified 11/26/23 12:47 atorvastatin Allergy ADR-Muscle Verified 11/26/23 12:47 Pain azithromycin Allergy ADR/ALGY-Pa Verified 11/26/23 12:47 lpitations ciprofloxacin Allergy hallucinations Verified 11/26/23 12:47 and burning sensation in legs mirtazapine [From Remeron] Allergy ADR-Nightma Verified 11/26/23 12:47 re simvastatin Allergy ADR-Muscle Verified 11/26/23 12:47 Pain Cordarone Allergy Unknown Confusion Uncoded 11/26/23 12:47 Current Medications Generic Name Dose Route Start Last Admin Trade Name Freq PRN Reason Stop Dose Admin Aspirin 81 mg 11/28/23 21:00 11/28/23 21:11 Aspirin 81 Mg Ec Tablet PO 81 mg BEDTIME SAHARA Administration Clopidogrel Bisulfate 75 mg 11/28/23 21:00 11/28/23 21:11 Clopidogrel 75 Mg Tablet PO 75 mg BEDTIME SAHARA Administration Heparin Sodium (Porcine) 5,000 unit 11/28/23 09:30 11/29/23 08:31 Heparin 5,000 Unit/Ml Inj 1 Ml SUBCUT 5,000 unit Q12H SAHARA Administration Albumin Human 12.5 gm in 50 mls @ 60 mls/hr 11/28/23 11:19 11/28/23 16:29 Albumin IV Infused PRN PRN Infusion Hypotension and/or symptomatic Meropenem 1,000 mg/ Sodium 50 mls @ 100 mls/hr 11/28/23 15:45 11/29/23 15:30 Chloride IV Infused Q12H SAHARA Infusion Protocol Vancomycin/PEG/NADA/Lysine/Water 1,250 mg in 250 mls @ 250 mls/hr 11/28/23 16:00 11/28/23 18:38 Vancocin IV Infused Q36H SAHARA Infusion Insulin Human Lispro 0 unit 11/28/23 12:00 11/29/23 13:49 Insulin Lispro 100 Unit/1 Ml SUBCUT 2 unit WM&BEDTIME SAHARA Administration Protocol Levothyroxine Sodium 175 mcg 11/29/23 09:00 11/29/23 08:31 Levothyroxine 175 Mcg Tablet PO 175 mcg DAILY SAHARA Administration Pantoprazole Sodium 40 mg 11/29/23 09:00 11/29/23 08:57 Pantoprazole 40 Mg Sdv IVP Not Given DAILY SAHARA PFSH Acute PFSH: Medical History Peripheral arterial disease Pleural effusion Protein calorie malnutrition Atherosclerosis of coronary artery Sputum culture positive for Pseudomonas and bactrim resistant stenotrophomonas in 08/2023 from [place], prolonged ventilation COVID-19 08/2023 History of pneumothorax 07/2023 iatragenic Hypothyroidism SVT (supraventricular tachycardia) Atrial flutter does not tolerate amiodarone per ESRD on hemodialysis Hopeful that he will be able to come off of dialysis Leg wound, left Aspiration pneumonitis Pulmonary edema Dehiscence of wound 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 Atelectasis, left 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 Hyperlipidemia Diabetic peripheral neuropathy associated with type 2 diabetes mellitus Gangrenous toe CKD (chronic kidney disease) Systolic heart failure Pleural effusion, left Non-healing ulcer Ischemic cardiomyopathy Diabetic ulcer of right foot Kidney stone Amputation toe Diabetes mellitus with peripheral vascular disease HTN (hypertension) Diabetes Surgical History History of thoracentesis 08/2022, 07/2023 right pleural effusion, S/P right coronary artery (RCA) stent placement 08/2023 at [place], 3 JETT to RCA [(2) 2.5 x 38mm, (1) 2.5 x 12 mm] History of cardiac catheterization 08/2023 at [place] History of amputation of toe S/P transmetatarsal amputation of foot all toes right foor Status post amputation of toe of right foot H/O chest tube placement S/P cholecystectomy S/P tonsillectomy S/P cataract extraction Family History Father Cancer LUNG Mother CAD (coronary artery disease) Diabetes Congestive heart failure (CHF) Myocardial infarction Social History Smoking and tobacco/nicotine status: never used tobacco/nicotine Alcohol intake: never Substance/Drug Use: never Household members: spouse Marital status: Current occupational status: retired Vitals/I&O/Wt Last Vital Signs Temp 97 F L 11/29/23 16:00 Pulse 95 11/29/23 16:00 Resp 28 H 11/29/23 16:00 BP 126/62 11/29/23 16:00 Pulse Ox 99 04/27/24 16:00 O2 Del Method BiPAP 11/29/23 06:00 O2 Flow Rate 2 11/29/23 03:00 FiO2 28 11/29/23 13:50 11/29/23 11/29/23 11/29/23 06:59 14:59 22:59 Intake Total 50 / 760 800 / 800 50 / 850 Output Total 50 / 5200 Balance 0 / -4440 800 / 800 50 / 850 Weight last 48 hrs Weight 178 lb Weight 171 lb 1.259 oz Weight 180 lb Weight 180 lb Physical Exam Narrative: GENERAL: The patient is alert and oriented times three. Not in any acute distress. HEENT: Moderate pallor. No, icterus or lymphadenopathy.Oral cavity: There are no mucous membrane lesions. NECK: Trachea appears to be central. No masses noted. No JVD or thyromegaly appreciated. RESPIRATORY: Chest is symmetrical. No intercostals muscle retraction or any accessory muscle activation. There is no chest wall tenderness. Breath sounds are heard bilaterally. Diminished breath sounds in the right base. No rales or rhonchi heard. No evidence of any consolidation. BREASTS: Deferred. HEART: The heart sounds are normal. No S3 or S4. No significant murmurs. No pericardial rub ABDOMEN: No vessel pulsations or distention. No tenderness. No organomegaly appreciated. Bowel sounds are normally heard. : Deferred. RECTAL: Deferred. LYMPHATIC: No lymphadenopathy noted in the neck. 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 1-2+ edema both lower extremities. Extremely poor pedal pulses bilaterally. MUSCULOSKELETAL: No acute joint deformities or swelling SKIN: There are no significant rashes or ecchymosis NEUROPSYCHIATRIC: The patient is alert and oriented x3. Appears to be in a good mood. No tremors or rigidity noted. Urinary Catheter Management: Kincaid: Cath Placed During This Visit: yes Reason for Continuing Indwelling Catheter: Accurate Measurement of Urinary Output in Critically Ill Patients Urinary Catheter Date of Insertion: 11/28/23 Urinary Catheter Time of Insertion: 16:58 Data 11/29/23 06:22 11/29/23 06:22 Other Labs: Laboratory Last Values WBC 12.05 10^3/uL (3.29-11.43) H 11/29/23 06:22 RBC 3.49 10^6/uL (3.85-5.65) L 11/29/23 06:22 Hgb 10.40 g/dL (11.27-16.99) L 11/29/23 06:22 Hct 34.8 % (37-53) L 11/29/23 06:22 MCV 99.7 fl (82-101) 11/29/23 06:22 MCH 29.8 pg (27-33) 11/29/23 06:22 MCHC 29.9 g/dL (30-55) L 11/29/23 06:22 RDW 14.2 % (12.1-15.1) 11/29/23 06:22 Plt Count 288 10^3/cmm (157-399) D 11/29/23 06:22 MPV 8.9 fL (7.4-10.4) 11/29/23 06:22 Neut % (Auto) 66.7 % 11/29/23 06:22 Lymph % (Auto) 26.1 % 11/29/23 06:22 Pender % (Auto) 4.6 % 11/29/23 06:22 Eos % (Auto) 1.2 % 11/29/23 06:22 Baso % (Auto) 1.0 % 11/29/23 06:22 Neut # (Auto) 8.04 10^3/uL (1.8-7.7) H 11/29/23 06:22 Lymph # (Auto) 3.2 10^3/uL (0.8-4.8) 11/29/23 06:22 Pender # (Auto) 0.6 10^3/uL (0.2-0.9) 11/29/23 06:22 Eos # (Auto) 0.1 10^3/uL (0.0-0.8) 11/29/23 06:22 Baso # (Auto) 0.1 10^3/uL (0.0-0.1) 11/29/23 06:22 Nucleated RBC % (auto) 0 % 11/29/23 06:22 Nucleated RBCs # 0.0 /100WBC 11/29/23 06:22 Specimen Type Arterial 11/29/23 09:50 Sample Site Radial, left 11/29/23 09:50 ABG pH 7.36 (7.35-7.45) 11/29/23 09:50 ABG pCO2 52.3 mmHg (35-45) H 11/29/23 09:50 ABG pO2 104.0 mmHg (80.0-100.0) H 11/29/23 09:50 ABG PO2/FiO2 Ratio 0 11/29/23 09:50 ABG HCO3 29.5 mmol/L (22-26) H 11/29/23 09:50 ABG O2 Saturation 99.5 11/29/23 09:50 ABG Base Excess 3.3 mmol/L (-2.0-2.0) H 11/29/23 09:50 Peter Test Pos 11/29/23 09:50 A-a O2 Gradient 4.0 mmHg (5-10) L 11/29/23 09:50 Hematocrit 29.5 % (42-52) L 11/29/23 09:50 Hgb O2 Saturation 97.3 % (95-100) 11/29/23 09:50 Carboxyhemoglobin 1.6 %THgb (0.4-20.1) 11/29/23 09:50 Methemoglobin 0.6 % (0.4-1.5) 11/29/23 09:50 Total Hemoglobin 9.6 g/dL (14-18) L 11/29/23 09:50 Sodium 137.0 mmol/L (131-143) 11/29/23 09:50 Potassium 4.3 mmol/L (3.5-5.0) 11/29/23 09:50 Glucose 168.0 mg/dL (70-115) H 11/29/23 09:50 Ionized Calcium 1.1 mmol/L (1.1-1.4) 11/29/23 09:50 O2 Delivery Device Nc 11/29/23 09:50 O2 Liters/Min 2.0 % 11/29/23 09:50 FiO2 28.0 % 11/29/23 09:50 Tidal Volume 0.45 11/28/23 10:26 PEEP 8.0 cmH20 11/28/23 10:26 Filler Sifter Machine ID Broma 11/29/23 09:50 Sodium 139 mmol/L (136-145) 11/29/23 06:22 Potassium 4.7 mmol/L (3.5-5.1) 11/29/23 06:22 Chloride 100 mmol/L (98-107) 11/29/23 06:22 Carbon Dioxide 27 mmol/L (22-29) 11/29/23 06:22 Anion Gap 16.7 (5-19) 11/29/23 06:22 BUN 30 mg/dL (8-23) H 11/29/23 06:22 Creatinine 2.4 mg/dL (0.7-1.2) H 11/29/23 06:22 GFR Calculation Not Reportable 11/29/23 06:22 Glucose 77 mg/dL (65-115) 11/29/23 06:22 POC Glucose 73 mg/dL (70-110) 11/29/23 08:03 Calculated Osmolality 293 mOsm/kg (285-295) 11/29/23 06:22 Lactic Acid 1.0 mmol/L (0.5-2.2) 11/28/23 09:11 Calcium 8.4 mg/dL (8.5-10.5) L 11/29/23 06:22 Magnesium 1.9 mg/dL (1.7-2.3) 11/29/23 06:22 Total Bilirubin 0.3 mg/dL (0.15-1.2) 11/29/23 06:22 AST 20 U/L (0-40) 11/29/23 06:22 ALT 8 U/L (0-41) 11/29/23 06:22 Alkaline Phosphatase 74 U/L (40-130) 11/29/23 06:22 Troponin T 5th Gen ng/L 186 ng/L (0-15) H* 11/28/23 14:15 Troponin T Hi Sens 6Hr 342.2 ng/L (0-15) H 11/28/23 20:52 Troponin T Hi Sens 6Hr Delta 156.2 ng/L (0-12) H* 11/28/23 20:52 Total Protein 5.3 g/dL (6.6-8.7) L 11/29/23 06:22 Albumin 2.9 g/dL (3.5-5.2) L 11/29/23 06:22 Globulin 2.4 g/dL (1.3-4.6) 11/29/23 06:22 TSH 25.42 uIU/mL (0.27-4.20) H 11/28/23 09:11 Urine Color Yellow (Yellow) 11/28/23 15:40 Urine Appearance Sl hazy (CLEAR) A 11/28/23 15:40 Urine pH 5 (5-7) 11/28/23 15:40 Ur Specific [place] 1.010 (1.005-1.030) 11/28/23 15:40 Urine Protein 3+ (Negative) H 11/28/23 15:40 Urine Glucose (UA) Norm (Normal) 11/28/23 15:40 Urine Ketones 1+ (Negative) H 11/28/23 15:40 Urine Blood 2+ (Negative) H 11/28/23 15:40 Urine Nitrate Negative (Negative) 11/28/23 15:40 Urine Bilirubin Neg (Negative) 11/28/23 15:40 Urine Urobilinogen Norm mg/dL (Negative) 11/28/23 15:40 Ur Leukocyte Esterase 2+ (Negative) H 11/28/23 15:40 Urine RBC 0-4 /hpf (0-2) H 11/28/23 15:40 Urine WBC Too numerous to cnt /hpf (0-5) H 11/28/23 15:40 Ur Squamous Epith Cells None /hpf (0-5) 11/28/23 15:40 Amorphous Sediment Not Reportable 11/28/23 15:40 Urine Bacteria 1+ /hpf (NONE) H 11/28/23 15:40 Fld Crystal Laterality Right lower 11/28/23 07:36 Pleural Color Yellow (Pale Yellow) H 11/28/23 07:36 Pleural Appearance Clear (CLEAR) 11/28/23 07:36 Pleural WBC 64.000 /uL (0-1000) 11/28/23 07:36 Pleural RBC 0.000 10^3/uL 11/28/23 07:36 Pleural Mononuc # Auto 0.059 10^3/uL 11/28/23 07:36 Pleural Polynuclear % 8 % 11/28/23 07:36 Pleural Polynuclear # 0.005 10^3/uL 11/28/23 07:36 Pleural Mononuclear % 92 % 11/28/23 07:36 Pleural Other Cells Rt Right lung 11/28/23 07:36 Hep Bs Antigen Non-reactive (Nonreactive) 11/28/23 09:11 Hep Bs Antibody < 3.5 (11.5-1000) L 11/28/23 09:11 Pathology Message Yes 11/28/23 07:36 Micro: Microbiology 11/28/23 07:36 Gram Stain - Final Pleural Fluid Body Fluid Culture - Preliminary 11/28/23 Unknown Gram Stain - Final Buttock 11/28/23 09:15 Blood Culture - Preliminary Blood NEGATIVE TO DATE 11/28/23 09:11 Blood Culture - Preliminary Blood NEGATIVE TO DATE Other data: EKG from 11/28/2023 Normal sinus rhythm with diffuse nonspecific T wave changes. Incomplete right bundle branch block pattern. No acute ST-T changes. Compared to the previous EKG from October of this year, there may not be a significant change Echocardiogram in number of 2022 Limited echo to assess the LV function. Mild concentric LVH. Mildly reduced LV systolic function with hypokinesis of mid anterior and anteroseptal wall segments. Estimated LVEF is mildly reduced 45 to 50%. Aortic valve appears significantly thickened with sclerosis and restricted movements of aortic valve leaflets. However any stenosis or regurgitation was not evaluated during the study. A&P Assessment and plan (1) Elevated troponin: The patient's elevated troponin T, most likely due to type II myocardial infarction. The end-stage renal disease, recent syncope, CO2 narcosis, etc. could be contributing factors. Patient is currently stable with no significant cardiac symptoms. At this point, it may be appropriate to continue the medical treatment. He has myriads of other medical problems. I discussed the patient and his about the option of doing a Myocardial perfusion imaging to further evaluate for any evidence of coronary ischemia. A shared decision was made not to undergo any further workup at this point unless the patient develops any significant chest pain or new symptoms (2) Atherosclerosis of coronary artery: Patient had intervention of the LAD lesion and right coronary artery. The EKGs show any new ischemic changes. At this point, it may be appropriate to continue the current medical treatment. Qualifiers: Coronary Disease-Associated Artery/Lesion type: [place] artery [place] vs. transplanted heart: [place] heart Associated angina: without angina Qualified Code(s): I25.10 - Atherosclerotic heart disease of [place] coronary artery without angina pectoris (3) Peripheral arterial disease: Patient was found to have nonrevascularizable lesions right lower extremity. So it was opted to treat him medically. Currently he has no specific symptoms of peripheral insufficiency. The ulcer at the amputation site seems to be healing. May continue on the current treatment. (4) End-stage renal disease on hemodialysis: Patient is on hemodialysis 3 times a week. This may be continued. (5) Acute respiratory failure: Currently respiratory status seems to be stable. Management as per the primary/pulmonology. Qualifiers: Respiratory failure complication: hypercapnia Qualified Code(s): J96.02 - Acute respiratory failure with hypercapnia (6) Recurrent right pleural effusion: Patient had thoracentesis x 2 so far. Further management as per the pulmonology. (7) Acute encephalopathy: Clinically improved. Most likely from the CO2 narcosis. May continue on the current management. (8) Atypical chest pain: Patient has feeling of tightness in the chest with respiratory distress. Currently it seems to have resolved. He never had to take any sublingual nitroglycerin for pain. (9) Diabetes mellitus with peripheral vascular disease: Continue on the current management. Plan Based on the clinical progress, further recommendations will be made. Thank for the opportunity to eval this patient and make these recommendations. Consult Attestations Medical Necessity Statement: Disposition as per the primary Coding Level of Care Code 35397 Diagnoses Elevated troponin R79.89 Atherosclerosis of [place] coronary artery of [place] heart without angina pectoris I25.10 Coronary Disease-Associated Artery/Lesion type: [place] artery [place] vs. transplanted heart: [place] heart Associated angina: without angina Peripheral arterial disease I73.9 End-stage renal disease on hemodialysis N18.6; Z99.2 Acute respiratory failure with hypercapnia J96.02 Respiratory failure complication: hypercapnia Recurrent right pleural effusion J90 Acute encephalopathy G93.40 Atypical chest pain R07.89 Diabetes mellitus with peripheral vascular disease E11.51
--- NOTE | 2023-11-29 19:09 | PC.NURSE ---
dexacon reading done 204 insulin given
[2023-11-29] MEDS: aspirin 81 mg EC Tablet PO (20:18)
[2023-11-29] MEDS: clopidogrel 75 mg Tablet PO (20:18)
--- NOTE | 2023-11-29 21:54 | PC.NURSE ---
Patient checked own blood sugar with dexicom monitor on right arm, result 177 insulin given per this reading at bedtime. ( okay per md to use this device at patient request. )
[2023-11-30] VITALS (31 sets, daily range): BP systolic 98–156; BP diastolic 53–85; PULSE 83–110; RESP 3–35; TEMP 36.1–37.4; O2SAT 79–100; BMI 25.8
[2023-11-30] MEDS: meropenem 1,000 MG in sodium chloride 0.9% (plus) 50 ML 100 MG IV ×2 (03:17→15:12)
[2023-11-30] MEDS: vancomycin 1,250 MG/250 ML PIGGYBACK 250 MG IV (05:03)
--- NOTE | 2023-11-30 05:19 | ECG_ITS ---
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 Measurements Intervals [place] Rate: 98 P: 50 WV: 151 QRS: 39 QRSD: 97 T: 60 QT: 353 QTc: 452 Interpretive Statements SINUS RHYTHM NONSPECIFIC T-WAVE ABNORMALITY Compared to ECG 11/28/2023 15:19:35 Incomplete right bundle-branch block no longer present Possible ischemia no longer present T-wave abnormality still present Electronically Signed On 11-30-2023 22:43:13 CDT by Lito Louis M.D. [id number]
[2023-11-30] MEDS: morphine 4 mg/mL SDV 1 mL 2 MG IVP ×2 (05:25→14:58)
--- NOTE | 2023-11-30 05:45 | PC.NURSE ---
Patient with chest pain 7/10 band like around front of chest non radiating, with shortness of breath. Color pink. vitals 128/64, pulse 84- sinus rhythm, RR 28 on nc 3 liters o2. Placed back on bipap at 28% fio2. Denies nausea. No palor noted. EKG obtained no st elevations noted. Morphine 2 mg given per prn order. Dr. Frances notified. Instructed to repeat morphine 2 mg ivp if pain not resolved. Then if pain still present give Nitroglycerine ointment 1/2 inch topically x 1 to chest wall. Return call if pain not resolved. Patient dozing at bedside after initial morphine given. Vitals remain stable.
--- NOTE | 2023-11-30 07:35 | P.PN_ITS ---
Subjective 2 Subjective: on bipap Medications: Reviewed: Yes Vitals/I&O/Wt Last Vital Signs Temp 99.3 F 11/30/23 05:00 Pulse 91 11/30/23 06:00 Resp 16 11/30/23 06:00 BP 128/64 11/30/23 06:00 Pulse Ox 98 11/30/23 06:00 O2 Del Method BiPAP 11/30/23 06:00 O2 Flow Rate 3 11/30/23 05:00 FiO2 28 11/30/23 06:00 11/29/23 11/30/23 11/30/23 22:59 06:59 14:59 Intake Total 700 / 1500 300 / 1800 Output Total 225 / 225 175 / 400 Balance 475 / 1275 125 / 1400 Weight last 48 hrs Weight 84 kg Weight 80.739 kg Weight 77.6 kg Weight 81.647 kg Physical Exam 2 Narrative: AWAKE , ALERT HEERNT S1S2 RRR PER REPORT LUNGS CLEAR PER REPORT NO EDEMA Urinary Catheter Management: Kincaid: Cath Placed During This Visit: yes Reason for Continuing Indwelling Catheter: Accurate Measurement of Urinary Output in Critically Ill Patients Urinary Catheter Date of Insertion: 11/28/23 Urinary Catheter Time of Insertion: 16:58 Data 11/29/23 06:22 11/29/23 06:22 Micro: Microbiology 11/28/23 07:36 Gram Stain - Final Pleural Fluid Body Fluid Culture - Preliminary 11/28/23 Unknown Gram Stain - Final Buttock 11/28/23 09:15 Blood Culture - Preliminary Blood NEGATIVE TO DATE 11/28/23 09:11 Blood Culture - Preliminary Blood NEGATIVE TO DATE A&P Assessment and plan (1) End-stage renal disease on hemodialysis: Plan 1. End-stage renal disease: On dialysis per MW schedule, hd today 2. Acute on chronic respiratory failure, currently on BiPAP, status post paracentesis 3. Anemia: RAUL with HD 4. History of hypertension 5. History of coronary artery disease Patient evaluated using audiovisual cart. Time spent 20 minutes Attestations 2 Medical Necessity Statement*: per medicine Coding Level of Care Code Acute Code for Chg Fwd Diagnoses End-stage renal disease on hemodialysis N18.6; Z99.2
--- NOTE | 2023-11-30 08:01 | PC.NURSE ---
pt bs check was 124 per anhcon
[2023-11-30] MEDS: heparin 5,000 unit/mL INJ 1 mL 5000 UNIT SUBCUT ×2 (08:27→20:46)
[2023-11-30] MEDS: levothyroxine 175 mcg Tablet PO (08:27)
--- NOTE | 2023-11-30 09:34 | PM.PN ---
Subjective Subjective: Patient is complaining of some tight feeling in the chest, when his breathing is harder. He also has generalized aches and pains. He has a baseline shortness of breath with activities. No orthopnea. No fever, chills or cough. Medications: Medication Review Details: Current Medications Aspirin (Aspirin 81 Mg Ec Tablet) 81 mg PO BEDTIME SAHARA Last Admin: 11/29/23 20:18 Dose: 81 mg Clopidogrel Bisulfate (Clopidogrel 75 Mg Tablet) 75 mg PO BEDTIME SAHARA Last Admin: 11/29/23 20:18 Dose: 75 mg Heparin Sodium (Porcine) (Heparin 5,000 Unit/Ml Inj 1 Ml) 5,000 unit SUBCUT Q12H [facility]ARA Last Admin: 11/30/23 08:27 Dose: 5,000 unit Dextrose (D5w) 500 mls @ 0 mls/hr IV ONCE PRN; Protocol PRN Reason: Adult Acute Hypoglycemia Prot Dextrose (D10w) 125 mls @ 750 mls/hr IV PRN PRN; Protocol PRN Reason: Adult Acute Hypoglycemia Nursing Protocol Dextrose (D10w) 250 mls @ 1,000 mls/hr IV PRN PRN; Protocol PRN Reason: Adult Acute Hypoglycemia Nursing Protocol Sodium Chloride (Sodium Chloride 0.9%) 1,000 mls @ 0 mls/hr IV .Q0M PRN PRN Reason: hypotension or symptomatic Albumin Human (Albumin) 12.5 gm in 50 mls @ 60 mls/hr IV PRN PRN PRN Reason: Hypotension and/or symptomatic Last Infusion: 11/28/23 16:29 Dose: Infused Meropenem 1,000 mg/ Sodium (Chloride) 50 mls @ 100 mls/hr IV Q12H SAHARA; Protocol Last Infusion: 11/30/23 04:09 Dose: Infused Vancomycin/PEG/NADA/Lysine/Water (Vancocin) 1,250 mg in 250 mls @ 250 mls/hr IV Q36H SAHARA Last Infusion: 11/30/23 06:16 Dose: Infused Sodium Chloride (Sodium Chloride 0.9%) 1,000 mls @ 0 mls/hr IV .Q0M PRN PRN Reason: hypotension or symptomatic Albumin Human (Albumin) 12.5 gm in 50 mls @ 60 mls/hr IV PRN PRN PRN Reason: Hypotension and/or symptomatic Insulin Human Lispro (Insulin Lispro 100 Unit/1 Ml) 0 unit SUBCUT WM&BEDTIME [facility]; Protocol Last Admin: 11/30/23 08:02 Dose: Not Given Levothyroxine Sodium (Levothyroxine 175 Mcg Tablet) 175 mcg PO DAILY [facility] Last Admin: 11/30/23 08:27 Dose: 175 mcg Morphine Sulfate (Morphine 4 Mg/Ml Sdv 1 Ml) 2 mg IVP Q6H PRN PRN Reason: SEVERE PAIN Last Admin: 11/30/23 05:25 Dose: 2 mg Ondansetron HCl (Ondansetron 2 Mg/Ml Sdv 2 Ml) 4 mg IVP Q6H PRN PRN Reason: NAUSEA AND VOMITING Pantoprazole Sodium (Pantoprazole 40 Mg Sdv) 40 mg IVP DAILY [facility] Last Admin: 11/30/23 08:24 Dose: Not Given Vitals/I&O/Wt Last Vital Signs Temp 99.3 F 11/30/23 05:00 Pulse 91 11/30/23 08:00 Resp 21 H 11/30/23 08:00 BP 127/72 11/30/23 08:00 Pulse Ox 95 11/30/23 08:00 O2 Del Method BiPAP 11/30/23 06:00 O2 Flow Rate 3 11/30/23 05:00 FiO2 28 11/30/23 08:00 11/29/23 11/30/23 11/30/23 22:59 06:59 14:59 Intake Total 700 / 1500 300 / 1800 300 / 300 Output Total 225 / 225 175 / 400 Balance 475 / 1275 125 / 1400 300 / 300 Weight last 48 hrs Weight 185 lb 3.013 oz Weight 178 lb Weight 171 lb 1.259 oz Physical Exam Narrative: GENERAL: The patient is alert and oriented times three. Not in any acute distress. HEENT: Moderate pallor. No, icterus or lymphadenopathy.Oral cavity: There are no mucous membrane lesions. NECK: Trachea appears to be central. No masses noted. No JVD or thyromegaly appreciated. RESPIRATORY: Chest is symmetrical. No intercostals muscle retraction or any accessory muscle activation. There is no chest wall tenderness. Breath sounds are heard bilaterally. Diminished breath sounds in the right base. No rales or rhonchi heard. No evidence of any consolidation. BREASTS: Deferred. HEART: The heart sounds are normal. No S3 or S4. No significant murmurs. No pericardial rub ABDOMEN: No vessel pulsations or distention. No tenderness. No organomegaly appreciated. Bowel sounds are normally heard. : Deferred. RECTAL: Deferred. LYMPHATIC: No lymphadenopathy noted in the neck. 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 1-2+ edema both lower extremities. Extremely poor pedal pulses bilaterally. MUSCULOSKELETAL: No acute joint deformities or swelling SKIN: There are no significant rashes or ecchymosis NEUROPSYCHIATRIC: The patient is alert and oriented x3. Appears to be in a good mood. No tremors or rigidity noted. Urinary Catheter Management: Kincaid: Cath Placed During This Visit: yes Reason for Continuing Indwelling Catheter: Accurate Measurement of Urinary Output in Critically Ill Patients Urinary Catheter Date of Insertion: 11/28/23 Urinary Catheter Time of Insertion: 16:58 Data 11/29/23 06:22 11/29/23 06:22 Other Labs: Laboratory Last Values WBC 12.05 10^3/uL (3.29-11.43) H 11/29/23 06:22 RBC 3.49 10^6/uL (3.85-5.65) L 11/29/23 06:22 Hgb 10.40 g/dL (11.27-16.99) L 11/29/23 06:22 Hct 34.8 % (37-53) L 11/29/23 06:22 MCV 99.7 fl (82-101) 11/29/23 06:22 MCH 29.8 pg (27-33) 11/29/23 06:22 MCHC 29.9 g/dL (30-55) L 11/29/23 06:22 RDW 14.2 % (12.1-15.1) 11/29/23 06:22 Plt Count 288 10^3/cmm (157-399) D 11/29/23 06:22 MPV 8.9 fL (7.4-10.4) 11/29/23 06:22 Neut % (Auto) 66.7 % 11/29/23 06:22 Lymph % (Auto) 26.1 % 11/29/23 06:22 [place] % (Auto) 4.6 % 11/29/23 06:22 Eos % (Auto) 1.2 % 11/29/23 06:22 Baso % (Auto) 1.0 % 11/29/23 06:22 Neut # (Auto) 8.04 10^3/uL (1.8-7.7) H 11/29/23 06:22 Lymph # (Auto) 3.2 10^3/uL (0.8-4.8) 11/29/23 06:22 [place] # (Auto) 0.6 10^3/uL (0.2-0.9) 11/29/23 06:22 Eos # (Auto) 0.1 10^3/uL (0.0-0.8) 11/29/23 06:22 Baso # (Auto) 0.1 10^3/uL (0.0-0.1) 11/29/23 06:22 Nucleated RBC % (auto) 0 % 11/29/23 06:22 Nucleated RBCs # 0.0 /100WBC 11/29/23 06:22 Specimen Type Arterial 11/29/23 09:50 Sample Site Radial, left 11/29/23 09:50 ABG pH 7.36 (7.35-7.45) 11/29/23 09:50 ABG pCO2 52.3 mmHg (35-45) H 11/29/23 09:50 ABG pO2 104.0 mmHg (80.0-100.0) H 11/29/23 09:50 ABG PO2/FiO2 Ratio 0 11/29/23 09:50 ABG HCO3 29.5 mmol/L (22-26) H 11/29/23 09:50 ABG O2 Saturation 99.5 11/29/23 09:50 ABG Base Excess 3.3 mmol/L (-2.0-2.0) H 11/29/23 09:50 Peter Test Pos 11/29/23 09:50 A-a O2 Gradient 4.0 mmHg (5-10) L 11/29/23 09:50 Hematocrit 29.5 % (42-52) L 11/29/23 09:50 Hgb O2 Saturation 97.3 % (95-100) 11/29/23 09:50 Carboxyhemoglobin 1.6 %THgb (0.4-20.1) 11/29/23 09:50 Methemoglobin 0.6 % (0.4-1.5) 11/29/23 09:50 Total Hemoglobin 9.6 g/dL (14-18) L 11/29/23 09:50 Sodium 137.0 mmol/L (131-143) 11/29/23 09:50 Potassium 4.3 mmol/L (3.5-5.0) 11/29/23 09:50 Glucose 168.0 mg/dL (70-115) H 11/29/23 09:50 Ionized Calcium 1.1 mmol/L (1.1-1.4) 11/29/23 09:50 O2 Delivery Device Nc 11/29/23 09:50 O2 Liters/Min 2.0 % 11/29/23 09:50 FiO2 28.0 % 11/29/23 09:50 Tidal Volume 0.45 11/28/23 10:26 PEEP 8.0 cmH20 11/28/23 10:26 Lather Apprentice ID Broma 11/29/23 09:50 Sodium 139 mmol/L (136-145) 11/29/23 06:22 Potassium 4.7 mmol/L (3.5-5.1) 11/29/23 06:22 Chloride 100 mmol/L (98-107) 11/29/23 06:22 Carbon Dioxide 27 mmol/L (22-29) 11/29/23 06:22 Anion Gap 16.7 (5-19) 11/29/23 06:22 BUN 30 mg/dL (8-23) H 11/29/23 06:22 Creatinine 2.4 mg/dL (0.7-1.2) H 11/29/23 06:22 GFR Calculation Not Reportable 11/29/23 06:22 Glucose 77 mg/dL (65-115) 11/29/23 06:22 POC Glucose 73 mg/dL (70-110) 11/29/23 08:03 Calculated Osmolality 293 mOsm/kg (285-295) 11/29/23 06:22 Lactic Acid 1.0 mmol/L (0.5-2.2) 11/28/23 09:11 Calcium 8.4 mg/dL (8.5-10.5) L 11/29/23 06:22 Magnesium 1.9 mg/dL (1.7-2.3) 11/29/23 06:22 Total Bilirubin 0.3 mg/dL (0.15-1.2) 11/29/23 06:22 AST 20 U/L (0-40) 11/29/23 06:22 ALT 8 U/L (0-41) 11/29/23 06:22 Alkaline Phosphatase 74 U/L (40-130) 11/29/23 06:22 Troponin T 5th Gen ng/L 186 ng/L (0-15) H* 11/28/23 14:15 Troponin T Hi Sens 6Hr 342.2 ng/L (0-15) H 11/28/23 20:52 Troponin T Hi Sens 6Hr Delta 156.2 ng/L (0-12) H* 11/28/23 20:52 Total Protein 5.3 g/dL (6.6-8.7) L 11/29/23 06:22 Albumin 2.9 g/dL (3.5-5.2) L 11/29/23 06:22 Globulin 2.4 g/dL (1.3-4.6) 11/29/23 06: TSH 25.42 uIU/mL (0.27-4.20) H 11/28/23 09:11 Urine Color Yellow (Yellow) 11/28/23 15:40 Urine Appearance Sl hazy (CLEAR) A 11/28/23 15:40 Urine pH 5 (5-7) 11/28/23 15:40 Ur Specific [place] 1.010 (1.005-1.030) 11/28/23 15:40 Urine Protein 3+ (Negative) H 11/28/23 15:40 Urine Glucose (UA) Norm (Normal) 11/28/23 15:40 Urine Ketones 1+ (Negative) H 11/28/23 15:40 Urine Blood 2+ (Negative) H 11/28/23 15:40 Urine Nitrate Negative (Negative) 11/28/23 15:40 Urine Bilirubin Neg (Negative) 11/28/23 15:40 Urine Urobilinogen Norm mg/dL (Negative) 11/28/23 15:40 Ur Leukocyte Esterase 2+ (Negative) H 11/28/23 15:40 Urine RBC 0-4 /hpf (0-2) H 11/28/23 15:40 Urine WBC Too numerous to cnt /hpf (0-5) H 11/28/23 15:40 Ur Squamous Epith Cells None /hpf (0-5) 11/28/23 15:40 Amorphous Sediment Not Reportable 11/28/23 15:40 Urine Bacteria 1+ /hpf (NONE) H 11/28/23 15:40 Fld Crystal Laterality Right lower 11/28/23 07:36 Pleural Color Yellow (Pale Yellow) H 11/28/23 07:36 Pleural Appearance Clear (CLEAR) 11/28/23 07:36 Pleural WBC 64.000 /uL (0-1000) 11/28/23 07:36 Pleural RBC 0.000 10^3/uL 11/28/23 07:36 Pleural Mononuc # Auto 0.059 10^3/uL 11/28/23 07:36 Pleural Polynuclear % 8 % 11/28/23 07:36 Pleural Polynuclear # 0.005 10^3/uL 11/28/23 07:36 Pleural Mononuclear % 92 % 11/28/23 07:36 Pleural Other Cells Rt Right lung 11/28/23 07:36 Hep Bs Antigen Non-reactive (Nonreactive) 11/28/23 09:11 Hep Bs Antibody < 3.5 (11.5-1000) L 11/28/23 09:11 Pathology Message Yes 11/28/23 07:36 Micro: Microbiology 11/28/23 07:36 Gram Stain - Final Pleural Fluid Body Fluid Culture - Preliminary 11/28/23 Unknown Gram Stain - Final Buttock 11/28/23 09:15 Blood Culture - Preliminary Blood NEGATIVE TO DATE 11/28/23 09:11 Blood Culture - Preliminary Blood NEGATIVE TO DATE Other data: The EKG from today, 11/30/2023 revealed sinus rhythm with diffuse nonspecific T wave changes. No significant change from the previous EKG A&P Assessment and plan (1) Elevated troponin: The patient's elevated troponin T, most likely due to type II myocardial infarction. The end-stage renal disease, recent syncope, CO2 narcosis, etc. could be contributing factors. Patient is currently stable with no significant cardiac symptoms. At this point, it may be appropriate to continue the medical treatment. He has myriads of other medical problems. I discussed the patient and his about the option of doing a Myocardial perfusion imaging to further evaluate for any evidence of coronary ischemia. A shared decision was made not to undergo any further workup at this point unless the patient develops any significant chest pain or new symptoms Patient has no change of mind. He was given some morphine for the generalized aches and pains. He has tight feeling in his chest with the breathing difficulty has been there for several months. Most likely this is related to COPD. (2) Atherosclerosis of coronary artery: Patient had intervention of the LAD lesion and right coronary artery. The EKGs show any new ischemic changes. At this point, it may be appropriate to continue the current medical treatment. Qualifiers: Coronary Disease-Associated Artery/Lesion type: [place] artery [place] vs. transplanted heart: [place] heart Associated angina: without angina Qualified Code(s): I25.10 - Atherosclerotic heart disease of [place] coronary artery without angina pectoris (3) Peripheral arterial disease: Patient was found to have nonrevascularizable lesions right lower extremity. So it was opted to treat him medically. Currently he has no specific symptoms of peripheral insufficiency. The ulcer at the amputation site seems to be healing. May continue on the current treatment. (4) End-stage renal disease on hemodialysis: Patient is on hemodialysis 3 times a week. This may be continued. (5) Acute respiratory failure: Currently respiratory status seems to be stable. Management as per the primary/pulmonology. Qualifiers: Respiratory failure complication: hypercapnia Qualified Code(s): J96.02 - Acute respiratory failure with hypercapnia (6) Recurrent right pleural effusion: Patient had thoracentesis x 2 so far. Further management as per the pulmonology. (7) Acute encephalopathy: Clinically improved. Most likely from the CO2 narcosis. May continue on the current management. (8) Diabetes mellitus with peripheral vascular disease: Continue on the current management. Plan If there is no significant change in his symptoms, it would be appropriate to continue the current medical treatment, from a cardiac standpoint. Attestations Medical Necessity Statement*: Deferred to the primary Coding Level of Care Code 93485 Diagnoses Elevated troponin R79.89 Atherosclerosis of [place] coronary artery of [place] heart without angina pectoris I25.10 Coronary Disease-Associated Artery/Lesion type: [place] artery [place] vs. transplanted heart: [place] heart Associated angina: without angina Peripheral arterial disease I73.9 End-stage renal disease on hemodialysis N18.6; Z99.2 Acute respiratory failure with hypercapnia J96.02 Respiratory failure complication: hypercapnia Recurrent right pleural effusion J90 Acute encephalopathy G93.40 Diabetes mellitus with peripheral vascular disease E11.51
[2023-11-30] MEDS: heparin, porcine 1,000 unit/mL INJ 10 mL 1000 UNIT IV (10:30)
[2023-11-30] MEDS: albumin 12.5 GM/50 ML VIAL IV ×2 (10:54→11:22)
--- NOTE | 2023-11-30 12:36 | P.PN_ITS ---
Subjective 2 Subjective: seen this morning no acute events overnight complains of chest pain and all over body pain declined stress testing Vitals/I&O/Wt Last Vital Signs Temp 98.4 F 11/30/23 10:42 Pulse 91 11/30/23 11:36 Resp 21 H 11/30/23 11:00 BP 98/56 11/30/23 11:00 Pulse Ox 100 11/30/23 11:36 O2 Del Method BiPAP 11/30/23 06:00 O2 Flow Rate 3 11/30/23 05:00 FiO2 28 11/30/23 11:36 11/29/23 11/30/23 11/30/23 22:59 06:59 14:59 Intake Total 700 / 1500 300 / 1800 328 / 328 Output Total 225 / 225 175 / 400 Balance 475 / 1275 125 / 1400 328 / 328 Weight last 48 hrs Weight 84 kg Weight 80.739 kg Weight 77.6 kg Physical Exam 2 Narrative: General exam demonstrates a white male, chronically ill-appearing. Cardiovascular slight tachycardia, regular. Dialysis catheter noted right chest Lungs diminished breath sounds bilaterally right greater than left. No crackles. No wheezes Abdomen is soft, positive bowel sounds. No obvious organomegaly Extremities 2+ edema bilaterally. No cyanosis or clubbing. Neuro: No focal deficits Skin: No rash Urinary Catheter Management: Kincaid: Cath Placed During This Visit: yes Reason for Continuing Indwelling Catheter: Accurate Measurement of Urinary Output in Critically Ill Patients Urinary Catheter Date of Insertion: 11/28/23 Urinary Catheter Time of Insertion: 16:58 Data 11/29/23 06:22 11/29/23 06:22 Micro: Microbiology 11/28/23 07:36 Gram Stain - Final Pleural Fluid Body Fluid Culture - Preliminary 11/28/23 Unknown Gram Stain - Final Buttock 11/28/23 09:15 Blood Culture - Preliminary Blood NEGATIVE TO DATE 11/28/23 09:11 Blood Culture - Preliminary Blood NEGATIVE TO DATE A&P Assessment and plan (1) Syncope: Patient presents with a syncopal episode with his thoracentesis. From description, this is most likely secondary to CO2 narcosis. Monitor on telemetry in the ICU (2) Acute hypercapnic respiratory failure: Patient has acute hypercarbic respiratory failure Pulmonary consult appreciated Continue AVAPS Repeat blood gas later today No need for intubation currently Goal oxygen saturation 88 to 92%, especially when he comes off BiPAP/AVAPS (3) Acute encephalopathy: Acute encephalopathy secondary to acute CO2 narcosis. This appears to be improving slowly. 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 This could contribute to his overall encephalopathy Nephrology consulted Was dialyzed yesterday. Next dialysis session tomorrow. 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 There is some scarring still present. (7) Pressure injury of sacral region, unstageable: There is an unstageable ulcer, with a fair amount of fibrin in his sacral region. It has some drainage. Will have surgery consult for wound care instructions, and he will need follow-up. (8) Recurrent right pleural effusion: Patient had a right pleural effusion drained today. If this recurs, a more permanent drain may be placed. Plan Elevated troponin. Patient reports no chest pain. I suspect this is a type II elevation or elevation secondary to his renal disease. Trend. Last echo in June demonstrated an EF of 45 to 50%. EKGs are similar to previous. Other medical problems as outlined in past medical history Troponins elevated, delta troponin at 6 hours 156. While this may be type II DC, NSTEMI not ruled out. Will consult cardiology. recs appreciated family declined stress testing Full code currently Heparin subcutaneous for DVT prophylaxis I do not see need for antibiotics currently. 11/29 - plan for dialysis today - hopefully dc home in AM if remains stable from chronic issues. f/u with surgery outpatient for sacral ulcer. s/p debridement cardiology following. pt declined stress testing continue morphine 2 mg iv q6h prn Attestations 2 Medical Necessity Statement*: Will require greater than 2 midnight stay for evaluation and treatment of syncope, recurrent pleural effusion, CO2 narcosis, respiratory failure, skipped dialysis with need for acute dialysis. 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
[2023-11-30] MEDS: insulin lispro 100 unit/1 mL SUBCUT ×3 (13:46→22:04)
[2023-11-30] MEDS: heparin, porcine 1,000 unit/mL INJ 10 mL 10000 UNIT INTRACATH (13:48)
[2023-11-30 14:05] LABS: Basophils # 0.1 10^3/uL (0.0-0.1); Basophils % 0.9 %; Eosinophils # 0.2 10^3/uL (0.0-0.8); Hematocrit 31.2 % (37-53); Lymphocytes # 3.4 10^3/uL (0.8-4.8); Lymphocytes % 35.7 %; Mean Corpuscular HGB Conc 29.8 g/dL (30-55); Mean Corpuscular Hemoglobin 29.4 pg (27-33); Mean Corpuscular Volume 98.7 fl (82-101); Mean Platelet Volume 9.2 fL (7.4-10.4); Monocytes # 0.6 10^3/uL (0.2-0.9); Monocytes % 6.5 %; Neutrophils # 5.13 10^3/uL (1.8-7.7); Neutrophils % 54.6 %; Nucleated Red Blood Cells % 0 %; Platelet Count 232 10^3/cmm (157-399); Red Blood Count 3.16 10^6/uL (3.85-5.65); Red Cell Distribution Width 14.6 % (12.1-15.1); White Blood Count 9.39 10^3/uL (3.29-11.43)
[2023-11-30 14:25] LABS: Anion Gap 11.7 (5-19); Blood Urea Nitrogen 15 mg/dL (8-23); Calcium 8.2 mg/dL (8.5-10.5); Carbon Dioxide 29 mmol/L (22-29); Chloride 101 mmol/L (98-107); Glucose 139 mg/dL (65-115); Osmolality Calculated 289 mOsm/kg (285-295); Potassium 3.7 mmol/L (3.5-5.1); Sodium 138 mmol/L (136-145)
--- NOTE | 2023-11-30 18:02 | PC.NURSE ---
blood sugar check done per pt machine 175
[2023-11-30] MEDS: HYDROcodone-acetaminophen 5-325 mg Tablet 1 TAB PO (18:53)
[2023-11-30] MEDS: clopidogrel 75 mg Tablet PO (20:45)
[2023-11-30] MEDS: aspirin 81 mg EC Tablet PO (20:45)
[2023-12-01] VITALS (36 sets, daily range): BP systolic 100–155; BP diastolic 51–103; PULSE 81–101; RESP 3–35; TEMP 36–37.1; O2SAT 69–100
[2023-12-01] MEDS: meropenem 1,000 MG in sodium chloride 0.9% (plus) 50 ML 100 MG IV ×2 (03:42→17:09)
[2023-12-01 06:54] LABS: Basophils # 0.1 10^3/uL (0.0-0.1); Basophils % 1.2 %; Eosinophils # 0.3 10^3/uL (0.0-0.8); Eosinophils % 3.2 %; Hematocrit 30.8 % (37-53); Lymphocytes # 3.3 10^3/uL (0.8-4.8); Lymphocytes % 38.9 %; Mean Corpuscular HGB Conc 29.9 g/dL (30-55); Mean Corpuscular Hemoglobin 29.7 pg (27-33); Mean Corpuscular Volume 99.4 fl (82-101); Mean Platelet Volume 9.3 fL (7.4-10.4); Monocytes # 0.6 10^3/uL (0.2-0.9); Monocytes % 6.7 %; Neutrophils # 4.27 10^3/uL (1.8-7.7); Neutrophils % 49.8 %; Nucleated Red Blood Cells % 0 %; Platelet Count 226 10^3/cmm (157-399); Red Cell Distribution Width 14.8 % (12.1-15.1); White Blood Count 8.56 10^3/uL (3.29-11.43)
--- NOTE | 2023-12-01 07:01 | PC.NURSE ---
2000 blood glucose 179. See MAR for insulin admin.
[2023-12-01 07:15] LABS: Anion Gap 12.6 (5-19); Blood Urea Nitrogen 24 mg/dL (8-23); Calcium 7.7 mg/dL (8.5-10.5); Carbon Dioxide 30 mmol/L (22-29); Chloride 103 mmol/L (98-107); Glucose 132 mg/dL (65-115); Magnesium 1.8 mg/dL (1.7-2.3); Osmolality Calculated 298 mOsm/kg (285-295); Phosphorus 2.5 mg/dL (2.5-4.5); Potassium 4.6 mmol/L (3.5-5.1); Sodium 141 mmol/L (136-145)
[2023-12-01 07:33] LABS: Slide Review Slide Review Perform
--- NOTE | 2023-12-01 08:16 | PC.NURSE ---
Pt and pleasantly refuse accu check. Prefer to use Dexcom instead. Current reading shows 117. No insulin required per sliding scale.
--- NOTE | 2023-12-01 08:49 | P.PN_ITS ---
Subjective 2 Subjective: feels well on 2 L O2 Medications: Reviewed: Yes Vitals/I&O/Wt Last Vital Signs Temp 96.8 F L 12/01/23 04:00 Pulse 88 12/01/23 06:00 Resp 12 12/01/23 06:00 BP 123/60 12/01/23 06:00 Pulse Ox 97 12/01/23 06:00 O2 Del Method BiPAP 11/30/23 06:00 O2 Flow Rate 3 11/30/23 05:00 FiO2 28 12/01/23 04:00 11/30/23 12/01/23 12/01/23 22:59 06:59 14:59 Intake Total 240 / 1018 50 / 1068 Output Total 150 / 3050 125 / 3175 Balance 90 / -2 -75 / -7 Weight last 48 hrs Weight 81.5 kg Weight 81.5 kg Weight 80.1 kg Weight 84 kg Physical Exam 2 Narrative: AWAKE , ALERT HEERNT S1S2 RRR PER REPORT LUNGS CLEAR PER REPORT NO EDEMA Urinary Catheter Management: Kincaid: Cath Placed During This Visit: yes Reason for Continuing Indwelling Catheter: Accurate Measurement of Urinary Output in Critically Ill Patients Urinary Catheter Date of Insertion: 11/28/23 Urinary Catheter Time of Insertion: 16:58 Data 12/01/23 06:30 12/01/23 06:30 Micro: Microbiology 11/28/23 18:04 Anaerobic Culture - Preliminary Buttock 11/28/23 Unknown Gram Stain - Final Buttock Wound Culture - Preliminary 11/28/23 07:36 Gram Stain - Final Pleural Fluid Body Fluid Culture - Preliminary A&P Assessment and plan (1) End-stage renal disease on hemodialysis: Plan 1. End-stage renal disease: On dialysis per MWF schedule, hd tomorrow 2. Acute on chronic respiratory failure, currently on BiPAP, status post paracentesis 3. Anemia: RAUL with HD 4. History of hypertension 5. History of coronary artery disease Patient evaluated using audiovisual cart. Time spent 20 minutes Attestations 2 Medical Necessity Statement*: per lucy Coding Level of Care Code Acute Code for Chg Fwd Diagnoses End-stage renal disease on hemodialysis N18.6; Z99.2
[2023-12-01] MEDS: heparin 5,000 unit/mL INJ 1 mL 5000 UNIT SUBCUT ×2 (08:54→20:46)
[2023-12-01] MEDS: levothyroxine 175 mcg Tablet PO (08:54)
--- NOTE | 2023-12-01 08:56 | PC.HD ---
Per historical interpreter, holding on ordered HD until tomorrow.
[2023-12-01 09:14] LABS: ABG PCO2 46.2 mmHg (35-45); ABG PH Result 7.44 (7.35-7.45); Arterial Blood Gas Hematocrit 29.3 % (42-52); Base Excess ABG 6.6 mmol/L (-2.0-2.0); Blood Gas Allen Test Pos; Blood Gas Operator Identificat CAK; Blood Gas Sample Site Radial, left; Blood Gas Sample Type Arterial; Carboxyhemoglobin 1.3 %THgb (0.4-20.1); HCO3 ABG 31.5 mmol/L (22-26); HGB O2 Sat 96.8 % (95-100); Ionized Calcium Level - ABG 1.2 mmol/L (1.1-1.4); Methemoglobin 0.5 % (0.4-1.5); Oxygen Device NC; Oxygen Saturation ABG 98.5; PO2 ABG 87.6 mmHg (80.0-100.0); PO2 FiO2 Ratio Arterial Blood 0; Potassium Level - ABG 4.7 mmol/L (3.5-5.0); Total Hemoglobin 9.6 g/dL (14-18)
--- NOTE | 2023-12-01 10:10 | PC.SOCIAL ---
IMM Update pg 2 of IMM updated and reviewed w/ patient. Copy provided and copy dated, initialed and placed in chart.
--- NOTE | 2023-12-01 10:48 | PM.PN ---
Subjective Subjective: Clinically improving -ABG much better -Mentation significantly improved -Patient is extremely deconditioned -Continue scheduled nebulizations and steroids-Taper steroids based on clinical response Medications: Reviewed: Yes Medication Review Details: Current Medications Aspirin (Aspirin 81 Mg Ec Tablet) 81 mg PO BEDTIME SAHARA Last Admin: 11/29/23 20:18 Dose: 81 mg Clopidogrel Bisulfate (Clopidogrel 75 Mg Tablet) 75 mg PO BEDTIME SAHARA Last Admin: 11/29/23 20:18 Dose: 75 mg Heparin Sodium (Porcine) (Heparin 5,000 Unit/Ml Inj 1 Ml) 5,000 unit SUBCUT Q12H SAHARA Last Admin: 11/30/23 08:27 Dose: 5,000 unit Dextrose (D5w) 500 mls @ 0 mls/hr IV ONCE PRN; Protocol PRN Reason: Adult Acute Hypoglycemia Prot Dextrose (D10w) 125 mls @ 750 mls/hr IV PRN PRN; Protocol PRN Reason: Adult Acute Hypoglycemia Nursing Protocol Dextrose (D10w) 250 mls @ 1,000 mls/hr IV PRN PRN; Protocol PRN Reason: Adult Acute Hypoglycemia Nursing Protocol Sodium Chloride (Sodium Chloride 0.9%) 1,000 mls @ 0 mls/hr IV .Q0M PRN PRN Reason: hypotension or symptomatic Albumin Human (Albumin) 12.5 gm in 50 mls @ 60 mls/hr IV PRN PRN PRN Reason: Hypotension and/or symptomatic Last Infusion: 11/28/23 16:29 Dose: Infused Meropenem 1,000 mg/ Sodium (Chloride) 50 mls @ 100 mls/hr IV Q12H SAHARA; Protocol Last Infusion: 11/30/23 04:09 Dose: Infused Vancomycin/PEG/NADA/Lysine/Water (Vancocin) 1,250 mg in 250 mls @ 250 mls/hr IV Q36H SAHARA Last Infusion: 11/30/23 06:16 Dose: Infused Sodium Chloride (Sodium Chloride 0.9%) 1,000 mls @ 0 mls/hr IV .Q0M PRN PRN Reason: hypotension or symptomatic Albumin Human (Albumin) 12.5 gm in 50 mls @ 60 mls/hr IV PRN PRN PRN Reason: Hypotension and/or symptomatic Insulin Human Lispro (Insulin Lispro 100 Unit/1 Ml) 0 unit SUBCUT WM&BEDTIME SAHARA; Protocol Last Admin: 11/30/23 08:02 Dose: Not Given Levothyroxine Sodium (Levothyroxine 175 Mcg Tablet) 175 mcg PO DAILY [facility] Last Admin: 11/30/23 08:27 Dose: 175 mcg Morphine Sulfate (Morphine 4 Mg/Ml Sdv 1 Ml) 2 mg IVP Q6H PRN PRN Reason: SEVERE PAIN Last Admin: 11/30/23 05:25 Dose: 2 mg Ondansetron HCl (Ondansetron 2 Mg/Ml Sdv 2 Ml) 4 mg IVP Q6H PRN PRN Reason: NAUSEA AND VOMITING Pantoprazole Sodium (Pantoprazole 40 Mg Sdv) 40 mg IVP DAILY [facility] Last Admin: 11/30/23 08:24 Dose: Not Given Vitals/I&O/Wt Last Vital Signs Temp 96.8 F L 12/01/23 04:00 Pulse 89 12/01/23 10:00 Resp 13 12/01/23 10:00 BP 130/58 12/01/23 10:00 Pulse Ox 100 12/01/23 10:00 O2 Del Method BiPAP 11/30/23 06:00 O2 Flow Rate 3 11/30/23 05:00 FiO2 28 12/01/23 04:00 11/30/23 12/01/23 12/01/23 22:59 06:59 14:59 Intake Total 240 / 1018 50 / 1068 120 / 120 Output Total 150 / 3050 125 / 3175 Balance 90 / -2032 -75 / -2107 120 / 120 Weight last 48 hrs Weight 179 lb 10.828 oz Weight 179 lb 10.828 oz Weight 176 lb 9.444 oz Weight 185 lb 3.013 oz Physical Exam Narrative: General: alert, extremely weak, elderly man lying in bed HEENT: conj clear, EOMI, PERRL, mmm, Neck: supple, no meningismus Heme: no cervical LAP Respiratory: Inspection: No visible deformity of the chest wall Palpation: Trachea is mildly deviated to the right, bilateral symmetric expansion Percussion: Increased dullness right lower lung zone Auscultation: Reduced breath sounds right lower lung zone Cardiovascular: rrr, nl s1s2, no mrg Abdomen: soft, nt, nd, no r/g, bs+ Extremities: pulses +, 1+ pitting pedal edema, no c/c : no CVA tenderness Skin: Sacral decubitus with significant slough at the base MSK: no back or neck pain Neurologic: grossly intact Urinary Catheter Management: Kincaid: Cath Placed During This Visit: yes Reason for Continuing Indwelling Catheter: Accurate Measurement of Urinary Output in Critically Ill Patients Urinary Catheter Date of Insertion: 11/28/23 Urinary Catheter Time of Insertion: 16:58 Data 12/02/23 05:07 12/02/23 05:07 Other Labs: Radiology Impressions Chest X-Ray 11/28/23 09:01 IMPRESSION: Worsening right basilar opacity consistent with worsening atelectasis or consolidation. Laboratory Results WBC 8.56 10^3/uL (3.29-11.43) 12/01/23 06:30 RBC 3.10 10^6/uL (3.85-5.65) L 12/01/23 06:30 Hgb 9.20 g/dL (11.27-16.99) L 12/01/23 06:30 Hct 30.8 % (37-53) L 12/01/23 06:30 MCV 99.4 fl (82-101) 12/01/23 06:30 MCH 29.7 pg (27-33) 12/01/23 06:30 MCHC 29.9 g/dL (30-55) L 12/01/23 06:30 RDW 14.8 % (12.1-15.1) 12/01/23 06:30 Plt Count 226 10^3/cmm (157-399) 12/01/23 06:30 MPV 9.3 fL (7.4-10.4) 12/01/23 06:30 Neut % (Auto) 49.8 % 12/01/23 06:30 Lymph % (Auto) 38.9 % 12/01/23 06:30 [place] % (Auto) 6.7 % 12/01/23 06:30 Eos % (Auto) 3.2 % 12/01/23 06:30 Baso % (Auto) 1.2 % 12/01/23 06:30 Neut # (Auto) 4.27 10^3/uL (1.8-7.7) 12/01/23 06:30 Lymph # (Auto) 3.3 10^3/uL (0.8-4.8) 12/01/23 06:30 [place] # (Auto) 0.6 10^3/uL (0.2-0.9) 12/01/23 06:30 Eos # (Auto) 0.3 10^3/uL (0.0-0.8) 12/01/23 06:30 Baso # (Auto) 0.1 10^3/uL (0.0-0.1) 12/01/23 06:30 Nucleated RBC % (auto) 0 % 12/01/23 06:30 Nucleated RBCs # 0.0 /100WBC 12/01/23 06:30 Specimen Type Arterial 12/01/23 09:03 Sample Site Radial, left 12/01/23 09:03 ABG pH 7.44 (7.35-7.45) 12/01/23 09:03 ABG pCO2 46.2 mmHg (35-45) H 12/01/23 09:03 ABG pO2 87.6 mmHg (80.0-100.0) 12/01/23 09:03 ABG PO2/FiO2 Ratio 0 12/01/23 09:03 ABG HCO3 31.5 mmol/L (22-26) H 12/01/23 09:03 ABG O2 Saturation 98.5 12/01/23 09:03 ABG Base Excess 6.6 mmol/L (-2.0-2.0) H 12/01/23 09:03 Peter Test Pos 12/01/23 09:03 A-a O2 Gradient 7.0 mmHg (5-10) 12/01/23 09:03 Hematocrit 29.3 % (42-52) L 12/01/23 09:03 Hgb O2 Saturation 96.8 % (95-100) 12/01/23 09:03 Carboxyhemoglobin 1.3 %THgb (0.4-20.1) 12/01/23 09:03 Methemoglobin 0.5 % (0.4-1.5) 12/01/23 09:03 Total Hemoglobin 9.6 g/dL (14-18) L 12/01/23 09:03 Sodium 139.0 mmol/L (131-143) 12/01/23 09:03 Potassium 4.7 mmol/L (3.5-5.0) 12/01/23 09:03 Glucose 160.0 mg/dL (70-115) H 12/01/23 09:03 Ionized Calcium 1.2 mmol/L (1.1-1.4) 12/01/23 09:03 O2 Delivery Device Nc 12/01/23 09:03 O2 Liters/Min 2.0 % 12/01/23 09:03 FiO2 28.0 % 12/01/23 09:03 Tidal Volume 0.45 11/28/23 10:26 PEEP 8.0 cmH20 11/28/23 10:26 [employer] Cak 12/01/23 09:03 Sodium 141 mmol/L (136-145) 12/01/23 06:30 Potassium 4.6 mmol/L (3.5-5.1) 12/01/23 06:30 Chloride 103 mmol/L (98-107) 12/01/23 06:30 Carbon Dioxide 30 mmol/L (22-29) H 12/01/23 06:30 Anion Gap 12.6 (5-19) 12/01/23 06:30 BUN 24 mg/dL (8-23) H 12/01/23 06:30 Creatinine 2.4 mg/dL (0.7-1.2) H 12/01/23 06:30 GFR Calculation Not Reportable 12/01/23 06:30 Glucose 132 mg/dL (65-115) H 12/01/23 06:30 POC Glucose 73 mg/dL (70-110) 11/29/23 08:03 Calculated Osmolality 298 mOsm/kg (285-295) H 12/01/23 06:30 Lactic Acid 1.0 mmol/L (0.5-2.2) 11/28/23 09:11 Calcium 7.7 mg/dL (8.5-10.5) L 12/01/23 06:30 Phosphorus 2.5 mg/dL (2.5-4.5) 12/01/23 06:30 Magnesium 1.8 mg/dL (1.7-2.3) 12/01/23 06:30 Total Bilirubin 0.3 mg/dL (0.15-1.2) 11/29/23 06:22 AST 20 U/L (0-40) 11/29/23 06:22 ALT 8 U/L (0-41) 11/29/23 06:22 Alkaline Phosphatase 74 U/L (40-130) 11/29/23 06:22 Troponin T 5th Gen ng/L 186 ng/L (0-15) H* 11/28/23 14:15 Troponin T Hi Sens 6Hr 342.2 ng/L (0-15) H 11/28/23 20:52 Troponin T Hi Sens 6Hr Delta 156.2 ng/L (0-12) H* 11/28/23 20:52 Total Protein 5.3 g/dL (6.6-8.7) L 11/29/23 06:22 Albumin 2.9 g/dL (3.5-5.2) L 11/29/23 06:22 Globulin 2.4 g/dL (1.3-4.6) 11/29/23 06:22 TSH 25.42 uIU/mL (0.27-4.20) H 11/28/23 09:11 Urine Color Yellow (Yellow) 11/28/23 15:40 Urine Appearance Sl hazy (CLEAR) A 11/28/23 15:40 Urine pH 5 (5-7) 11/28/23 15:40 Ur Specific [place] 1.010 (1.005-1.030) 11/28/23 15:40 Urine Protein 3+ (Negative) H 11/28/23 15:40 Urine Glucose (UA) Norm (Normal) 11/28/23 15:40 Urine Ketones 1+ (Negative) H 11/28/23 15:40 Urine Blood 2+ (Negative) H 11/28/23 15:40 Urine Nitrate Negative (Negative) 11/28/23 15:40 Urine Bilirubin Neg (Negative) 11/28/23 15:40 Urine Urobilinogen Norm mg/dL (Negative) 11/28/23 15:40 Ur Leukocyte Esterase 2+ (Negative) H 11/28/23 15:40 Urine RBC 0-4 /hpf (0-2) H 11/28/23 15:40 Urine WBC Too numerous to cnt /hpf (0-5) H 11/28/23 15:40 Ur Squamous Epith Cells None /hpf (0-5) 11/28/23 15:40 Amorphous Sediment Not Reportable 11/28/23 15:40 Urine Bacteria 1+ /hpf (NONE) H 11/28/23 15:40 Fld Crystal Laterality Right lower 11/28/23 07:36 Pleural Color Yellow (Pale Yellow) H 11/28/23 07:36 Pleural Appearance Clear (CLEAR) 11/28/23 07:36 Pleural WBC 64.000 /uL (0-1000) 11/28/23 07:36 Pleural RBC 0.000 10^3/uL 11/28/23 07:36 Pleural Mononuc # Auto 0.059 10^3/uL 11/28/23 07:36 Pleural Polynuclear % 8 % 11/28/23 07:36 Pleural Polynuclear # 0.005 10^3/uL 11/28/23 07:36 Pleural Mononuclear % 92 % 11/28/23 07:36 Pleural Other Cells Rt Right lung 11/28/23 07:36 Hep Bs Antigen Non-reactive (Nonreactive) 11/28/23 09:11 Hep Bs Antibody < 3.5 (11.5-1000) L 11/28/23 09:11 Pathology Message Yes 11/28/23 07:36 Micro: Microbiology 11/28/23 Unknown Gram Stain - Final Buttock Wound Culture - Preliminary 11/28/23 07:36 Gram Stain - Final Pleural Fluid Body Fluid Culture - Final 11/28/23 18:04 Anaerobic Culture - Preliminary Buttock A&P Assessment and plan (1) Recurrent right pleural effusion: Likely secondary to underlying CHF/ESRD Patient has a chronic effusion which she is worsened-missed his last 2 dialysis sessions S/p thoracentesis 11/28/2023 yielded 1.6 straw-colored fluid Discussed with patient's -in future if it is recurrent-will plan for Pleurx catheter Encouraged to stay compliant with hemodialysis (2) Acute hypercapnic respiratory failure: Likely secondary to underlying fluid overload secondary to CHF/right pleural effusion/ESRD Postthoracentesis 11/28/2023-ABG 7.12/pCO2 97-placed on BiPAP-improved to 7.19/85-improved mental mentation-continue BiPAP Underwent a scheduled hemodialysis to remove fluid over the weekend Today ABG 7.44/46/87/31/98% saturation on 2 L supplemental oxygen Significant improvement in mentation. Monitor mentation, ABG (3) Sepsis: Improvement in WBC Blood cultures, pleural cultures, urine cultures-negative so far Likely source-chronic sacral decubiti/abscess-General surgery consulted for debridement Wound cultures pending Currently on vancomycin/meropenem (4) Decubitus ulcer: General surgery performed debridement/abscess drainage continue vancomycin/meropenem for now (5) Physical deconditioning: Overall patient had multiple comorbidities and hospitalizations-leading to significant physical deconditioning Discussed at length with reports patient goals of care-for now patient is full code Staying compliant with her hemodialysis; will plan for Pleurx drain if there is recurrent right pleural effusion; will treat sepsis during this hospitalization However after discharge patient needs acute/subacute rehabilitation for his significant deconditioning Plan Patient has significantly improved from his respiratory acidosis and has better mentation. Pulmonary-critical care signing off for now and reconsult if necessary. Attestations Medical Necessity Statement*: Deferred to hospitalist Critical Care Time: The high probability of a clinically significant, sudden or life threatening deterioration of the patient's [pulmonary, renal, cardiac] system(s) required my full and direct attention, intervention and personal management. The critical care time is as shown. This time is in addition to time spent performing any reported procedures but includes the following: [x] Data and vital sign review and interpretation [x] Patient assessment, examination and intervention [x] Documentation [x] Medication orders and management Critical Care Time (min): 43 Coding Level of Care Code Acute Code for Chg Fwd Diagnoses Recurrent right pleural effusion J90 Acute hypercapnic respiratory failure J96.02 Sepsis A41.9 Decubitus ulcer L89.90 Physical deconditioning R53.81 Time Spent (min) 33
[2023-12-01] MEDS: insulin lispro 100 unit/1 mL SUBCUT ×2 (11:48→17:24)
--- NOTE | 2023-12-01 13:19 | PM.PN ---
Subjective Subjective: seen this morning no acute events overnight Vitals/I&O/Wt Last Vital Signs Temp 96.8 F L 12/01/23 04:00 Pulse 91 12/01/23 12:00 Resp 13 12/01/23 12:00 BP 127/64 12/01/23 12:00 Pulse Ox 99 12/01/23 12:00 O2 Del Method BiPAP 11/30/23 06:00 O2 Flow Rate 3 11/30/23 05:00 FiO2 28 12/01/23 04:00 11/30/23 12/01/23 12/01/23 22:59 06:59 14:59 Intake Total 240 / 1018 50 / 1068 180 / 180 Output Total 150 / 3050 125 / 3175 Balance 90 / -2032 -75 / -2107 180 / 180 Weight last 48 hrs Weight 81.5 kg Weight 81.5 kg Weight 80.1 kg Weight 84 kg Physical Exam Narrative: General exam demonstrates a white male, chronically ill-appearing. Cardiovascular slight tachycardia, regular. Dialysis catheter noted right chest Lungs diminished breath sounds bilaterally right greater than left. No crackles. No wheezes Abdomen is soft, positive bowel sounds. No obvious organomegaly Extremities 2+ edema bilaterally. No cyanosis or clubbing. Neuro: No focal deficits Skin: No rash Urinary Catheter Management: Kincaid: Cath Placed During This Visit: yes Reason for Continuing Indwelling Catheter: Accurate Measurement of Urinary Output in Critically Ill Patients Urinary Catheter Date of Insertion: 11/28/23 Urinary Catheter Time of Insertion: 16:58 Data 12/01/23 06:30 12/01/23 06:30 Micro: Microbiology 11/28/23 18:04 Anaerobic Culture - Preliminary Buttock 11/28/23 Unknown Gram Stain - Final Buttock Wound Culture - Preliminary 11/28/23 07:36 Gram Stain - Final Pleural Fluid Body Fluid Culture - Final A&P Assessment and plan (1) Syncope: Patient presents with a syncopal episode with his thoracentesis. From description, this is most likely secondary to CO2 narcosis. Monitor on telemetry in the ICU (2) Acute hypercapnic respiratory failure: Patient has acute hypercarbic respiratory failure Pulmonary consult appreciated Continue AVAPS Repeat blood gas later today No need for intubation currently Goal oxygen saturation 88 to 92%, especially when he comes off BiPAP/AVAPS (3) Acute encephalopathy: Acute encephalopathy secondary to acute CO2 narcosis. This appears to be improving slowly. (4) Diabetes: Sliding scale insulin No evidence of DKA Consistent carb diet when diet is started Qualifiers: Diabetes mellitus type: type 2 Diabetes mellitus intermission coordinator insulin use: with intermission coordinator use Diabetes mellitus complication status: with kidney complications Diabetes mellitus complication detail: with chronic kidney disease Chronic kidney disease stage: stage 5, not on chronic dialysis Qualified Code(s): E11.22 - Type 2 diabetes mellitus with diabetic chronic kidney disease; N18.5 - Chronic kidney disease, stage 5; Z79.4 - long-term (current) use of insulin (5) End-stage renal disease on hemodialysis: He has missed 2 dialysis sessions. This could contribute to his overall encephalopathy Nephrology consulted Was dialyzed yesterday. Next dialysis session tomorrow. 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 There is some scarring still present. (7) Pressure injury of sacral region, unstageable: There is an unstageable ulcer, with a fair amount of fibrin in his sacral region. It has some drainage. Will have surgery consult for wound care instructions, and he will need follow-up. (8) Recurrent right pleural effusion: Patient had a right pleural effusion drained today. If this recurs, a more permanent drain may be placed. Plan Elevated troponin. Patient reports no chest pain. I suspect this is a type II elevation or elevation secondary to his renal disease. Trend. Last echo in June demonstrated an EF of 45 to 50%. EKGs are similar to previous. Other medical problems as outlined in past medical history Troponins elevated, delta troponin at 6 hours 156. While this may be type II [place], NSTEMI not ruled out. Will consult cardiology. recs appreciated family declined stress testing Full code currently Heparin subcutaneous for DVT prophylaxis I do not see need for antibiotics currently. 11/30 - plan for dialysis tomorrow - hopefully dc home in AM if remains stable from chronic issues. f/u with surgery outpatient for sacral ulcer. s/p debridement cardiology following. pt declined stress testing continue morphine 2 mg iv q6h prn continue vanc meropenem Attestations Medical Necessity Statement*: Will require greater than 2 midnight stay for evaluation and treatment of syncope, recurrent pleural effusion, CO2 narcosis, respiratory failure, skipped dialysis with need for acute dialysis. Critical Care Time: Critical Care Time (min): 0 Diagnoses Syncope R55 Acute hypercapnic respiratory failure J96.02 Acute encephalopathy G93.40 Type 2 diabetes mellitus with stage 5 chronic kidney disease not on chronic dialysis, with long-term current use of insulin E11.22; N18.5; Z79.4 Diabetes mellitus type: type 2 Diabetes mellitus care home insulin use: with intermission coordinator use Diabetes mellitus complication status: with kidney complications Diabetes mellitus complication detail: with chronic kidney disease Chronic kidney disease stage: stage 5, not on chronic dialysis End-stage renal disease on hemodialysis N18.6; Z99.2 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
[2023-12-01] MEDS: vancomycin 1,250 MG/250 ML PIGGYBACK 250 MG IV (17:20)
[2023-12-01] MEDS: clopidogrel 75 mg Tablet PO (20:46)
[2023-12-01] MEDS: aspirin 81 mg EC Tablet PO (20:46)
--- NOTE | 2023-12-01 20:47 | PC.NURSE ---
BLOOD GLUCOSE 116
--- NOTE | 2023-12-01 22:41 | P.PN_ITS ---
Subjective 2 Subjective: The patient is feeling okay. Has a baseline shortness of breath. Occasional left-sided chest pain. According the patient the pain is somewhat chronic and stable Medications: Medication Review Details: Current Medications Aspirin (Aspirin 81 Mg Ec Tablet) 81 mg PO BEDTIME SAHARA Last Admin: 12/01/23 20:46 Dose: 81 mg Clopidogrel Bisulfate (Clopidogrel 75 Mg Tablet) 75 mg PO BEDTIME SAHARA Last Admin: 12/01/23 20:46 Dose: 75 mg Heparin Sodium (Porcine) (Heparin 5,000 Unit/Ml Inj 1 Ml) 5,000 unit SUBCUT Q12H SAHARA Last Admin: 12/01/23 20:46 Dose: 5,000 unit Dextrose (D5w) 500 mls @ 0 mls/hr IV ONCE PRN; Protocol PRN Reason: Adult Acute Hypoglycemia Prot Dextrose (D10w) 125 mls @ 750 mls/hr IV PRN PRN; Protocol PRN Reason: Adult Acute Hypoglycemia Nursing Protocol Dextrose (D10w) 250 mls @ 1,000 mls/hr IV PRN PRN; Protocol PRN Reason: Adult Acute Hypoglycemia Nursing Protocol Sodium Chloride (Sodium Chloride 0.9%) 1,000 mls @ 0 mls/hr IV .Q0M PRN PRN Reason: hypotension or symptomatic Albumin Human (Albumin) 12.5 gm in 50 mls @ 60 mls/hr IV PRN PRN PRN Reason: Hypotension and/or symptomatic Last Infusion: 11/28/23 16:29 Dose: Infused Meropenem 1,000 mg/ Sodium (Chloride) 50 mls @ 100 mls/hr IV Q12H SAHARA; Protocol Last Infusion: 12/01/23 20:49 Dose: Infused Vancomycin/PEG/NADA/Lysine/Water (Vancocin) 1,250 mg in 250 mls @ 250 mls/hr IV Q36H SAHARA Last Infusion: 12/01/23 22:20 Dose: Infused Sodium Chloride (Sodium Chloride 0.9%) 1,000 mls @ 0 mls/hr IV .Q0M PRN PRN Reason: hypotension or symptomatic Albumin Human (Albumin) 12.5 gm in 50 mls @ 60 mls/hr IV PRN PRN PRN Reason: Hypotension and/or symptomatic Last Infusion: 11/30/23 13:56 Dose: Infused Sodium Chloride (Sodium Chloride 0.9%) 1,000 mls @ 0 mls/hr IV .Q0M PRN PRN Reason: hypotension or symptomatic Albumin Human (Albumin) 12.5 gm in 50 mls @ 60 mls/hr IV PRN PRN PRN Reason: Hypotension and/or symptomatic Insulin Human Lispro (Insulin Lispro 100 Unit/1 Ml) 0 unit SUBCUT WM&BEDTIME SAHARA; Protocol Last Admin: 12/01/23 20:46 Dose: Not Given Levothyroxine Sodium (Levothyroxine 175 Mcg Tablet) 175 mcg PO DAILY [facility] Last Admin: 12/01/23 08:54 Dose: 175 mcg Morphine Sulfate (Morphine 4 Mg/Ml Sdv 1 Ml) 2 mg IVP Q6H PRN PRN Reason: SEVERE PAIN Last Admin: 11/30/23 14:58 Dose: 2 mg Ondansetron HCl (Ondansetron 2 Mg/Ml Sdv 2 Ml) 4 mg IVP Q6H PRN PRN Reason: NAUSEA AND VOMITING Pantoprazole Sodium (Pantoprazole 40 Mg Sdv) 40 mg IVP DAILY [facility] Last Admin: 12/01/23 08:49 Dose: Not Given Vitals/I&O/Wt Last Vital Signs Temp 98.2 F 12/01/23 22:00 Pulse 85 12/01/23 22:00 Resp 17 12/01/23 22:00 BP 128/73 12/01/23 22:00 Pulse Ox 100 12/01/23 22:00 O2 Del Method BiPAP 11/30/23 06:00 O2 Flow Rate 3 11/30/23 05:00 FiO2 28 12/01/23 21:15 12/01/23 12/01/23 12/01/23 06:59 14:59 22:59 Intake Total 50 / 1068 180 / 180 360 / 540 Output Total 125 / 3175 125 / 125 Balance -75 / -2107 180 / 180 235 / 415 Weight last 48 hrs Weight 179 lb 10.828 oz Weight 179 lb 10.828 oz Weight 176 lb 9.444 oz Weight 185 lb 3.013 oz Physical Exam 2 Narrative: GENERAL: The patient is alert and oriented times three. Not in any acute distress. HEENT: Moderate pallor. No, icterus or lymphadenopathy.Oral cavity: There are no mucous membrane lesions. NECK: Trachea appears to be central. No masses noted. No JVD or thyromegaly appreciated. RESPIRATORY: Chest is symmetrical. No intercostals muscle retraction or any accessory muscle activation. There is no chest wall tenderness. Breath sounds are heard bilaterally. Diminished breath sounds in the right base. No rales or rhonchi heard. No evidence of any consolidation. BREASTS: Deferred. HEART: The heart sounds are normal. No S3 or S4. No significant murmurs. No pericardial rub ABDOMEN: No vessel pulsations or distention. No tenderness. No organomegaly appreciated. Bowel sounds are normally heard. : Deferred. RECTAL: Deferred. LYMPHATIC: No lymphadenopathy noted in the neck. 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 1-2+ edema both lower extremities. Extremely poor pedal pulses bilaterally. MUSCULOSKELETAL: No acute joint deformities or swelling SKIN: There are no significant rashes or ecchymosis NEUROPSYCHIATRIC: The patient is alert and oriented x3. Appears to be in a good mood. No tremors or rigidity noted. Urinary Catheter Management: Kincaid: Cath Placed During This Visit: yes Reason for Continuing Indwelling Catheter: Accurate Measurement of Urinary Output in Critically Ill Patients Urinary Catheter Date of Insertion: 11/28/23 Urinary Catheter Time of Insertion: 16:58 Data 12/01/23 06:30 12/01/23 06:30 Other Labs: Laboratory Last Values WBC 8.56 10^3/uL (3.29-11.43) 12/01/23 06:30 RBC 3.10 10^6/uL (3.85-5.65) L 12/01/23 06:30 Hgb 9.20 g/dL (11.27-16.99) L 12/01/23 06:30 Hct 30.8 % (37-53) L 12/01/23 06:30 MCV 99.4 fl (82-101) 12/01/23 06:30 MCH 29.7 pg (27-33) 12/01/23 06:30 MCHC 29.9 g/dL (30-55) L 12/01/23 06:30 RDW 14.8 % (12.1-15.1) 12/01/23 06:30 Plt Count 226 10^3/cmm (157-399) 12/01/23 06:30 MPV 9.3 fL (7.4-10.4) 12/01/23 06:30 Neut % (Auto) 49.8 % 12/01/23 06:30 Lymph % (Auto) 38.9 % 12/01/23 06:30 Wells % (Auto) 6.7 % 12/01/23 06:30 Eos % (Auto) 3.2 % 12/01/23 06:30 Baso % (Auto) 1.2 % 12/01/23 06:30 Neut # (Auto) 4.27 10^3/uL (1.8-7.7) 12/01/23 06:30 Lymph # (Auto) 3.3 10^3/uL (0.8-4.8) 12/01/23 06:30 Wells # (Auto) 0.6 10^3/uL (0.2-0.9) 12/01/23 06:30 Eos # (Auto) 0.3 10^3/uL (0.0-0.8) 12/01/23 06:30 Baso # (Auto) 0.1 10^3/uL (0.0-0.1) 12/01/23 06:30 Nucleated RBC % (auto) 0 % 12/01/23 06:30 Nucleated RBCs # 0.0 /100WBC 12/01/23 06:30 Specimen Type Arterial 12/01/23 09:03 Sample Site Radial, left 12/01/23 09:03 ABG pH 7.44 (7.35-7.45) 12/01/23 09:03 ABG pCO2 46.2 mmHg (35-45) H 12/01/23 09:03 ABG pO2 87.6 mmHg (80.0-100.0) 12/01/23 09:03 ABG PO2/FiO2 Ratio 0 12/01/23 09:03 ABG HCO3 31.5 mmol/L (22-26) H 12/01/23 09:03 ABG O2 Saturation 98.5 12/01/23 09:03 ABG Base Excess 6.6 mmol/L (-2.0-2.0) H 12/01/23 09:03 Peter Test Pos 12/01/23 09:03 A-a O2 Gradient 7.0 mmHg (5-10) 12/01/23 09:03 Hematocrit 29.3 % (42-52) L 12/01/23 09:03 Hgb O2 Saturation 96.8 % (95-100) 12/01/23 09:03 Carboxyhemoglobin 1.3 %THgb (0.4-20.1) 12/01/23 09:03 Methemoglobin 0.5 % (0.4-1.5) 12/01/23 09:03 Total Hemoglobin 9.6 g/dL (14-18) L 12/01/23 09:03 Sodium 139.0 mmol/L (131-143) 12/01/23 09:03 Potassium 4.7 mmol/L (3.5-5.0) 12/01/23 09:03 Glucose 160.0 mg/dL (70-115) H 12/01/23 09:03 Ionized Calcium 1.2 mmol/L (1.1-1.4) 12/01/23 09:03 O2 Delivery Device Nc 12/01/23 09:03 O2 Liters/Min 2.0 % 12/01/23 09:03 FiO2 28.0 % 12/01/23 09:03 Tidal Volume 0.45 11/28/23 10:26 PEEP 8.0 cmH20 11/28/23 10:26 [employer] ID Cak 12/01/23 09:03 Sodium 141 mmol/L (136-145) 12/01/23 06:30 Potassium 4.6 mmol/L (3.5-5.1) 12/01/23 06:30 Chloride 103 mmol/L (98-107) 12/01/23 06:30 Carbon Dioxide 30 mmol/L (22-29) H 12/01/23 06:30 Anion Gap 12.6 (5-19) 12/01/23 06:30 BUN 24 mg/dL (8-23) H 12/01/23 06:30 Creatinine 2.4 mg/dL (0.7-1.2) H 12/01/23 06:30 GFR Calculation Not Reportable 12/01/23 06:30 Glucose 132 mg/dL (65-115) H 12/01/23 06:30 POC Glucose 73 mg/dL (70-110) 11/29/23 08:03 Calculated Osmolality 298 mOsm/kg (285-295) H 12/01/23 06:30 Lactic Acid 1.0 mmol/L (0.5-2.2) 11/28/23 09:11 Calcium 7.7 mg/dL (8.5-10.5) L 12/01/23 06:30 Phosphorus 2.5 mg/dL (2.5-4.5) 12/01/23 06:30 Magnesium 1.8 mg/dL (1.7-2.3) 12/01/23 06:30 Total Bilirubin 0.3 mg/dL (0.15-1.2) 11/29/23 06:22 AST 20 U/L (0-40) 11/29/23 06:22 ALT 8 U/L (0-41) 11/29/23 06:22 Alkaline Phosphatase 74 U/L (40-130) 11/29/23 06:22 Troponin T 5th Gen ng/L 186 ng/L (0-15) H* 11/28/23 14:15 Troponin T Hi Sens 6Hr 342.2 ng/L (0-15) H 11/28/23 20:52 Troponin T Hi Sens 6Hr Delta 156.2 ng/L (0-12) H* 11/28/23 20:52 Total Protein 5.3 g/dL (6.6-8.7) L 11/29/23 06:22 Albumin 2.9 g/dL (3.5-5.2) L 11/29/23 06:22 Globulin 2.4 g/dL (1.3-4.6) 11/29/23 06:22 TSH 25.42 uIU/mL (0.27-4.20) H 11/28/23 09:11 Urine Color Yellow (Yellow) 11/28/23 15:40 Urine Appearance Sl hazy (CLEAR) A 11/28/23 15:40 Urine pH 5 (5-7) 11/28/23 15:40 Ur Specific [place] 1.010 (1.005-1.030) 11/28/23 15:40 Urine Protein 3+ (Negative) H 11/28/23 15:40 Urine Glucose (UA) Norm (Normal) 11/28/23 15:40 Urine Ketones 1+ (Negative) H 11/28/23 15:40 Urine Blood 2+ (Negative) H 11/28/23 15:40 Urine Nitrate Negative (Negative) 11/28/23 15:40 Urine Bilirubin Neg (Negative) 11/28/23 15:40 Urine Urobilinogen Norm mg/dL (Negative) 11/28/23 15:40 Ur Leukocyte Esterase 2+ (Negative) H 11/28/23 15:40 Urine RBC 0-4 /hpf (0-2) H 11/28/23 15:40 Urine WBC Too numerous to cnt /hpf (0-5) H 11/28/23 15:40 Ur Squamous Epith Cells None /hpf (0-5) 11/28/23 15:40 Amorphous Sediment Not Reportable 11/28/23 15:40 Urine Bacteria 1+ /hpf (NONE) H 11/28/23 15:40 Fld Crystal Laterality Right lower 11/28/23 07:36 Pleural Color Yellow (Pale Yellow) H 11/28/23 07:36 Pleural Appearance Clear (CLEAR) 11/28/23 07:36 Pleural WBC 64.000 /uL (0-1000) 11/28/23 07:36 Pleural RBC 0.000 10^3/uL 11/28/23 07:36 Pleural Mononuc # Auto 0.059 10^3/uL 11/28/23 07:36 Pleural Polynuclear % 8 % 11/28/23 07:36 Pleural Polynuclear # 0.005 10^3/uL 11/28/23 07:36 Pleural Mononuclear % 92 % 11/28/23 07:36 Pleural Other Cells Rt Right lung 11/28/23 07:36 Vancomycin Trough 16.0 ug/mL (10-15) H 12/01/23 14:50 Hep Bs Antigen Non-reactive (Nonreactive) 11/28/23 09:11 Hep Bs Antibody < 3.5 (11.5-1000) L 11/28/23 09:11 Pathology Message Yes 11/28/23 07:36 Micro: Microbiology 11/28/23 18:04 Anaerobic Culture - Preliminary Buttock 11/28/23 Unknown Gram Stain - Final Buttock Wound Culture - Preliminary 11/28/23 07:36 Gram Stain - Final Pleural Fluid Body Fluid Culture - Final A&P Assessment and plan (1) Elevated troponin: Once again I discussed with the patient about the option of doing a stress test or angiogram to further evaluate the coronary status. Patient is not interested in pursuing any further workup at this point. If he has any change of mind he will let us know. His concurred with this plan (2) Atherosclerosis of coronary artery: Patient had intervention of the LAD lesion and right coronary artery. The EKGs show any new ischemic changes. At this point, it may be appropriate to continue the current medical treatment. Qualifiers: Coronary Disease-Associated Artery/Lesion type: [place] artery [place] vs. transplanted heart: [place] heart Associated angina: without angina Qualified Code(s): I25.10 - Atherosclerotic heart disease of [place] coronary artery without angina pectoris (3) Peripheral arterial disease: Patient was found to have nonrevascularizable lesions right lower extremity. So it was opted to treat him medically. Currently he has no specific symptoms of peripheral insufficiency. The ulcer at the amputation site seems to be healing. May continue on the current treatment. (4) End-stage renal disease on hemodialysis: Patient is on hemodialysis 3 times a week. This may be continued. (5) Acute respiratory failure: Currently respiratory status seems to be stable. Management as per the primary/pulmonology. Qualifiers: Respiratory failure complication: hypercapnia Qualified Code(s): J96.02 - Acute respiratory failure with hypercapnia (6) Recurrent right pleural effusion: Patient had thoracentesis x 2 so far. Further management as per the pulmonology. (7) Acute encephalopathy: Clinically improved. Most likely from the CO2 narcosis. May continue on the current management. (8) Diabetes mellitus with peripheral vascular disease: Continue on the current management. Plan Continue on the current treatment measures. Attestations 2 Medical Necessity Statement*: Deferred to the primary Coding Level of Care Code 23498 Diagnoses Elevated troponin R79.89 Atherosclerosis of [place] coronary artery of [place] heart without angina pectoris I25.10 Coronary Disease-Associated Artery/Lesion type: [place] artery [place] vs. transplanted heart: [place] heart Associated angina: without angina Peripheral arterial disease I73.9 End-stage renal disease on hemodialysis N18.6; Z99.2 Acute respiratory failure with hypercapnia J96.02 Respiratory failure complication: hypercapnia Recurrent right pleural effusion J90 Acute encephalopathy G93.40 Diabetes mellitus with peripheral vascular disease E11.51
[2023-12-02] VITALS (17 sets, daily range): BP systolic 123–153; BP diastolic 55–84; PULSE 84–107; RESP 16–34; TEMP 36.6–37.1; O2SAT 96–100
[2023-12-02] MEDS: meropenem 1,000 MG in sodium chloride 0.9% (plus) 50 ML 100 MG IV (05:19)
[2023-12-02 05:58] LABS: Basophils # 0.1 10^3/uL (0.0-0.1); Eosinophils # 0.3 10^3/uL (0.0-0.8); Eosinophils % 3.2 %; Hematocrit 31.2 % (37-53); Lymphocytes # 3.6 10^3/uL (0.8-4.8); Lymphocytes % 39.3 %; Mean Corpuscular HGB Conc 29.5 g/dL (30-55); Mean Corpuscular Hemoglobin 29.1 pg (27-33); Mean Corpuscular Volume 98.7 fl (82-101); Mean Platelet Volume 9.3 fL (7.4-10.4); Monocytes # 0.6 10^3/uL (0.2-0.9); Monocytes % 6.3 %; Neutrophils % 49.9 %; Nucleated Red Blood Cells % 0 %; Platelet Count 222 10^3/cmm (157-399); Red Blood Count 3.16 10^6/uL (3.85-5.65); Red Cell Distribution Width 14.8 % (12.1-15.1); White Blood Count 9.03 10^3/uL (3.29-11.43)
[2023-12-02 06:12] LABS: Alanine Aminotransferase 6 U/L (0-41); Albumin Level 3.1 g/dL (3.5-5.2); Alkaline Phosphatase 67 U/L (40-130); Anion Gap 14.8 (5-19); Aspartate Amino Transferase 8 U/L (0-40); Blood Urea Nitrogen 36 mg/dL (8-23); Calcium 8.5 mg/dL (8.5-10.5); Carbon Dioxide 28 mmol/L (22-29); Chloride 101 mmol/L (98-107); Creatinine Clr Calc Pharmacy 23.7377; Globulin 2.2 g/dL (1.3-4.6); Glucose 136 mg/dL (65-115); Magnesium 1.9 mg/dL (1.7-2.3); Osmolality Calculated 298 mOsm/kg (285-295); Potassium 4.8 mmol/L (3.5-5.1); Sodium 139 mmol/L (136-145); Total Bilirubin 0.3 mg/dL (0.15-1.2); Total Protein 5.3 g/dL (6.6-8.7)
[2023-12-02 07:01] LABS: Slide Review Slide Review Perform
[2023-12-02] MEDS: pantoprazole 40 mg SDV IVP (09:01)
[2023-12-02] MEDS: heparin 5,000 unit/mL INJ 1 mL 5000 UNIT SUBCUT (09:01)
[2023-12-02] MEDS: levothyroxine 175 mcg Tablet PO (09:02)
--- NOTE | 2023-12-02 09:05 | PC.HD ---
Heparin 1000 units loading dose administered via venous port of HD catheter at 0850 per microfilm technician's orders.
--- NOTE | 2023-12-02 09:06 | P.PN_ITS ---
Subjective 2 Subjective: on hd Medications: Reviewed: Yes Vitals/I&O/Wt Last Vital Signs Temp 98.1 F 12/02/23 09:04 Pulse 101 H 12/02/23 09:04 Resp 23 H 12/02/23 09:04 BP 153/82 12/02/23 09:04 Pulse Ox 96 12/02/23 08:49 O2 Del Method BiPAP 12/02/23 07:48 O2 Flow Rate 3 11/30/23 05:00 FiO2 28 12/02/23 08:49 12/01/23 12/02/23 12/02/23 22:59 06:59 14:59 Intake Total 360 / 540 50 / 590 Output Total 125 / 125 100 / 225 Balance 235 / 415 -50 / 365 Weight last 48 hrs Weight 79.016 kg Weight 81.5 kg Weight 81.5 kg Weight 80.1 kg Physical Exam 2 Narrative: AWAKE , ALERT HEERNT S1S2 RRR PER REPORT LUNGS CLEAR PER REPORT NO EDEMA Urinary Catheter Management: Kincaid: Cath Placed During This Visit: yes Reason for Continuing Indwelling Catheter: Other Urinary Catheter Date of Insertion: 11/28/23 Urinary Catheter Time of Insertion: 16:58 Data 12/02/23 05:07 12/02/23 05:07 Micro: Microbiology 11/28/23 18:04 Anaerobic Culture - Preliminary Buttock 11/28/23 Unknown Gram Stain - Final Buttock Wound Culture - Preliminary 11/28/23 07:36 Gram Stain - Final Pleural Fluid Body Fluid Culture - Final A&P Assessment and plan (1) End-stage renal disease on hemodialysis: Plan 1. End-stage renal disease: On dialysis per MW schedule, hd today 2. Acute on chronic respiratory failure, currently on BiPAP, status post paracentesis 3. Anemia: RAUL with HD 4. History of hypertension 5. History of coronary artery disease Patient evaluated using audiovisual cart. Time spent 20 minutes Attestations 2 Medical Necessity Statement*: per lucy Coding Level of Care Code Acute Code for Chg Fwd Diagnoses End-stage renal disease on hemodialysis N18.6; Z99.2
[2023-12-02] MEDS: albumin 12.5 GM/50 ML VIAL IV (09:37)
--- NOTE | 2023-12-02 10:00 | PM.DCS ---
Discharge Providers Date of Admission: 11/28/23 09:12 Date of Discharge: December 02, 2023 Attending Provider at Admission: Marciano Pereira MD Attending Provider at Discharge: Wilfredo Mejía MD Primary Care Provider: Evelin Jenkins DO Diagnoses at Discharge Discharge Diagnosis (1) End-stage renal disease on hemodialysis: Status: Acute Reason for Visit Reason for Visit: J90 Hospital Course Hospital Course Patient was initially admitted for period of unresponsiveness which was thought to be syncope via rapid response as he was undergoing thoracentesis for pleural effusion. He was admitted to the ICU and BiPAP was started. Patient became more alert. Patient's stated that he was not able to receive his 2 last dialysis sessions and he skipped them. Patient was placed on AVAPS and underwent dialysis in the hospital and became more euvolemic. Patient also had an unstageable sacral ulcer with some drainage which was debrided by general surgery and he was asked to follow-up outpatient for further debridement and further care. Right pleural effusion was drained. So far during hospital stay the pleural effusion did not recur however if it does he will need to have a permanent drain placed. He was also seen by pulmonology during hospital stay. Also for possible NSTEMI, chest pain patient was seen by cardiology. Plan was made to manage medically. Patient's declined any further aggressive testing including a stress test at this time. On day of discharge he was doing well and was back to his baseline. Patient discharged home in stable condition. Physical Exam Narrative: General exam demonstrates a white male, chronically ill-appearing. Cardiovascular slight tachycardia, regular. Dialysis catheter noted right chest Lungs diminished breath sounds bilaterally right greater than left. No crackles. No wheezes Abdomen is soft, positive bowel sounds. No obvious organomegaly Extremities 2+ edema bilaterally. No cyanosis or clubbing. Neuro: No focal deficits Skin: No rash Urinary Catheter Management: Kincaid: Cath Placed During This Visit: yes Reason for Continuing Indwelling Catheter: Other Urinary Catheter Date of Insertion: 11/28/23 Urinary Catheter Time of Insertion: 16:58 Discharge Data Studies Completed and Pending Completed Studies During Hospitalization Category Date Time Status CXRP [XR chest 1V portable [id number]] Routine Exams 11/28/23 07:43 Completed XR chest 1V portable [id number] Stat Exams 11/28/23 09:01 Completed Pending at discharge Category Date Time Status Anaerobic Culture Routine Lab 11/28/23 18:04 Results Blood Culture Stat Lab 11/28/23 09:15 Results Urine Culture Routine Lab 11/28/23 07:00 Results Wound Culture and Gram Stain Stat Lab 11/28/23 Results Radiology Impressions Chest X-Ray 11/28/23 09:01 IMPRESSION: Worsening right basilar opacity consistent with worsening atelectasis or consolidation. Laboratory Results WBC 9.03 10^3/uL (3.29-11.43) 12/02/23 05:07 RBC 3.16 10^6/uL (3.85-5.65) L 12/02/23 05:07 Hgb 9.20 g/dL (11.27-16.99) L 12/02/23 05:07 Hct 31.2 % (37-53) L 12/02/23 05:07 MCV 98.7 fl (82-101) 12/02/23 05:07 MCH 29.1 pg (27-33) 12/02/23 05:07 MCHC 29.5 g/dL (30-55) L 12/02/23 05:07 RDW 14.8 % (12.1-15.1) 12/02/23 05:07 Plt Count 222 10^3/cmm (157-399) 12/02/23 05:07 MPV 9.3 fL (7.4-10.4) 12/02/23 05:07 Neut % (Auto) 49.9 % 12/02/23 05:07 Lymph % (Auto) 39.3 % 12/02/23 05:07 Coffey % (Auto) 6.3 % 12/02/23 05:07 Eos % (Auto) 3.2 % 12/02/23 05:07 Baso % (Auto) 1.0 % 12/02/23 05:07 Neut # (Auto) 4.50 10^3/uL (1.8-7.7) 12/02/23 05:07 Lymph # (Auto) 3.6 10^3/uL (0.8-4.8) 12/02/23 05:07 Coffey # (Auto) 0.6 10^3/uL (0.2-0.9) 12/02/23 05:07 Eos # (Auto) 0.3 10^3/uL (0.0-0.8) 12/02/23 05:07 Baso # (Auto) 0.1 10^3/uL (0.0-0.1) 12/02/23 05:07 Nucleated RBC % (auto) 0 % 12/02/23 05:07 Nucleated RBCs # 0.0 /100WBC 12/02/23 05:07 Specimen Type Arterial 12/01/23 09:03 Sample Site Radial, left 12/01/23 09:03 ABG pH 7.44 (7.35-7.45) 12/01/23 09:03 ABG pCO2 46.2 mmHg (35-45) H 12/01/23 09:03 ABG pO2 87.6 mmHg (80.0-100.0) 12/01/23 09:03 ABG PO2/FiO2 Ratio 0 12/01/23 09:03 ABG HCO3 31.5 mmol/L (22-26) H 12/01/23 09:03 ABG O2 Saturation 98.5 12/01/23 09:03 ABG Base Excess 6.6 mmol/L (-2.0-2.0) H 12/01/23 09:03 Peter Test Pos 12/01/23 09:03 A-a O2 Gradient 7.0 mmHg (5-10) 12/01/23 09:03 Hematocrit 29.3 % (42-52) L 12/01/23 09:03 Hgb O2 Saturation 96.8 % (95-100) 12/01/23 09:03 Carboxyhemoglobin 1.3 %THgb (0.4-20.1) 12/01/23 09:03 Methemoglobin 0.5 % (0.4-1.5) 12/01/23 09:03 Total Hemoglobin 9.6 g/dL (14-18) L 12/01/23 09:03 Sodium 139.0 mmol/L (131-143) 12/01/23 09:03 Potassium 4.7 mmol/L (3.5-5.0) 12/01/23 09:03 Glucose 160.0 mg/dL (70-115) H 12/01/23 09:03 Ionized Calcium 1.2 mmol/L (1.1-1.4) 12/01/23 09:03 O2 Delivery Device Nc 12/01/23 09:03 O2 Liters/Min 2.0 % 12/01/23 09:03 FiO2 28.0 % 12/01/23 09:03 Tidal Volume 0.45 11/28/23 10:26 PEEP 8.0 cmH20 11/28/23 10:26 Mine Car Mechanic ID Cak 12/01/23 09:03 Sodium 139 mmol/L (136-145) 12/02/23 05:07 Potassium 4.8 mmol/L (3.5-5.1) 12/02/23 05:07 Chloride 101 mmol/L (98-107) 12/02/23 05:07 Carbon Dioxide 28 mmol/L (22-29) 12/02/23 05:07 Anion Gap 14.8 (5-19) 12/02/23 05:07 BUN 36 mg/dL (8-23) H 12/02/23 05:07 Creatinine 3.1 mg/dL (0.7-1.2) H 12/02/23 05:07 GFR Calculation Not Reportable 12/02/23 05:07 Glucose 136 mg/dL (65-115) H 12/02/23 05:07 POC Glucose 73 mg/dL (70-110) 11/29/23 08:03 Calculated Osmolality 298 mOsm/kg (285-295) H 12/02/23 05:07 Lactic Acid 1.0 mmol/L (0.5-2.2) 11/28/23 09:11 Calcium 8.5 mg/dL (8.5-10.5) 12/02/23 05:07 Phosphorus 2.5 mg/dL (2.5-4.5) 12/01/23 06:30 Magnesium 1.9 mg/dL (1.7-2.3) 12/02/23 05:07 Total Bilirubin 0.3 mg/dL (0.15-1.2) 12/02/23 05:07 AST 8 U/L (0-40) 12/02/23 05:07 ALT 6 U/L (0-41) 12/02/23 05:07 Alkaline Phosphatase 67 U/L (40-130) 12/02/23 05:07 Troponin T 5th Gen ng/L 186 ng/L (0-15) H* 11/28/23 14:15 Troponin T Hi Sens 6Hr 342.2 ng/L (0-15) H 11/28/23 20:52 Troponin T Hi Sens 6Hr Delta 156.2 ng/L (0-12) H* 11/28/23 20:52 Total Protein 5.3 g/dL (6.6-8.7) L 12/02/23 05:07 Albumin 3.1 g/dL (3.5-5.2) L 12/02/23 05:07 Globulin 2.2 g/dL (1.3-4.6) 12/02/23 05:07 TSH 25.42 uIU/mL (0.27-4.20) H 11/28/23 09:11 Urine Color Yellow (Yellow) 11/28/23 15:40 Urine Appearance Sl hazy (CLEAR) A 11/28/23 15:40 Urine pH 5 (5-7) 11/28/23 15:40 Ur Specific [place] 1.010 (1.005-1.030) 11/28/23 15:40 Urine Protein 3+ (Negative) H 11/28/23 15:40 Urine Glucose (UA) Norm (Normal) 11/28/23 15:40 Urine Ketones 1+ (Negative) H 11/28/23 15:40 Urine Blood 2+ (Negative) H 11/28/23 15:40 Urine Nitrate Negative (Negative) 11/28/23 15:40 Urine Bilirubin Neg (Negative) 11/28/23 15:40 Urine Urobilinogen Norm mg/dL (Negative) 11/28/23 15:40 Ur Leukocyte Esterase 2+ (Negative) H 11/28/23 15:40 Urine RBC 0-4 /hpf (0-2) H 11/28/23 15:40 Urine WBC Too numerous to cnt /hpf (0-5) H 11/28/23 15:40 Ur Squamous Epith Cells None /hpf (0-5) 11/28/23 15:40 Amorphous Sediment Not Reportable 11/28/23 15:40 Urine Bacteria 1+ /hpf (NONE) H 11/28/23 15:40 Fld Crystal Laterality Right lower 11/28/23 07:36 Pleural Color Yellow (Pale Yellow) H 11/28/23 07:36 Pleural Appearance Clear (CLEAR) 11/28/23 07:36 Pleural WBC 64.000 /uL (0-1000) 11/28/23 07:36 Pleural RBC 0.000 10^3/uL 11/28/23 07:36 Pleural Mononuc # Auto 0.059 10^3/uL 11/28/23 07:36 Pleural Polynuclear % 8 % 11/28/23 07:36 Pleural Polynuclear # 0.005 10^3/uL 11/28/23 07:36 Pleural Mononuclear % 92 % 11/28/23 07:36 Pleural Other Cells Rt Right lung 11/28/23 07:36 Vancomycin Trough 16.0 ug/mL (10-15) H 12/01/23 14:50 Hep Bs Antigen Non-reactive (Nonreactive) 11/28/23 09:11 Hep Bs Antibody < 3.5 (11.5-1000) L 11/28/23 09:11 Pathology Message Yes 11/28/23 07:36 Vitals Last Vital Signs Temp 98.1 F 12/02/23 09:04 Pulse 101 H 12/02/23 09:04 Resp 23 H 12/02/23 09:04 BP 153/82 12/02/23 09:04 Pulse Ox 96 12/02/23 08:49 O2 Del Method BiPAP 12/02/23 07:48 O2 Flow Rate 3 11/30/23 05:00 FiO2 28 12/02/23 08:49 Discharge Plan Discharge Patient Disposition: Home Health Service Condition: Stable Prescriptions: New doxycycline hyclate 100 mg capsule 100 mg PO BID 7 Days Qty: 14 0RF Continued garlic 1,000 mg capsule 1,000 mg PO DAILY (DME) [place] to the right See Rx Instructions .Route .MEDSUPPLY Qty: 1 0RF Rx Instructions: As directed (DME) [place] to Right Lower Extremity See Rx Instructions .Route .MEDSUPPLY Qty: 1 0RF Rx Instructions: As directed [employer] [facility] [place] (DME) FreeKeelr Marcial 2 Sensor Kit MISCELLANEOUS Qty: 1 2RF Rx Instructions: As directed clopidogrel 75 mg tablet 75 mg PO BEDTIME Qty: 90 0RF levothyroxine 175 mcg capsule 175 mcg PO DAILY Qty: 60 0RF nitroglycerin [Nitrostat] 0.4 mg Tablet, Sublingual 0.4 mg SUBLINGUAL Q5M PRN (Reason: Chest Pain) Rx Instructions: do not exceed 3 doses per episode resveratrol 100 mg Capsule 100 mg PO BID aspirin 81 mg tablet,delayed release (DR/EC) 81 mg PO BEDTIME Vitamin B Complex Liquid See Rx Instructions .ROUTE .COMPLEX Rx Instructions: one dropperful once a day insulin lispro [Humalog KwikPen Insulin] 100 unit/mL insulin pen See Rx Instructions .ROUTE .COMPLEX Qty: 15 0RF Dose Instruction: inject 10 units SUBCUTANEOUSLY THREE TIMES DAILY Rx Instructions: inject, subcut, tid with meals, based on low dose sliding scale Levemir FlexPen 100 unit/mL (3 mL) insulin pen 8 unit SUBCUT QAM Qty: 15 0RF (DME) FreeStyle Marcial 2 [place] Misc MISCELLANEOUS fenugreek seed 610 mg Capsule 610 mg PO DAILY metoprolol tartrate 50 mg tablet 25 mg PO Q12H PRN (Reason: high HR or high BP) Discharge Orders: Discharge Order (Routine); Ordered 12/02/23 Ordered By: Kia Moreno Referrals: [facility] [Outside] Dallas Puri MD [Physician] - 12/10/23 9:15 am (We have notified your physician's clinic of the need for a follow-up appointment to be scheduled. If you have not heard from them within the next 2 business days, please call them directly. ) GauravrWilfredo MD [Physician] - 12/11/23 10:00 am (We have notified your physician's clinic of the need for a follow-up appointment to be scheduled. If you have not heard from them within the next 2 business days, please call them directly. ) Evelin Jenkins DO [Primary Care Provider] - 12/05/23 2:30 pm Discharge Diet: Cardiac and Diabetic Discharge Activity: Resume usual activity and As per PT/OT instructions Patient Instructions: Levofloxacin (By mouth) (Levaquin, Levaquin Leva-robles), Dialysis Diet (DC), Hemodialysis (DC), Opioid Safety Discharge Attestations Time Spent in Discharge Care*: less than 30 min Status at Discharge: Cognitive status at discharge: cognitively intact, Behavioral status at discharge: cooperative, Quality Metrics Clinical Quality Measures [ No reported AMI, CVA or VTE this stay] Coding Level of Care Code Acute Code for Chg Fwd Diagnoses End-stage renal disease on hemodialysis N18.6; Z99.2
--- NOTE | 2023-12-02 11:20 | XR_ITS ---
WS: [id number] XR chest 1V portable [id number] REASON FOR EXAM: SOB FINDINGS: Right internal jugular dialysis catheter remains in position. Consolidation/atelectasis in the left lung base which appears more significant than on the previous e xamination of 11/28/2023. The appearance may be due to the significant difference in positioning of th e chest compared to the previous study. Opacity in the right lower chest appears to be combination of lung consolidation/atelectasis and remn ant pleural fluid. Right lower chest may be improved compared to the previous examination although there is significant difference in positioning of the chest. XR/XR chest 1V portable [id number] IMPRESSION: Abnormal chest which overall most likely is relatively stable.
[2023-12-02 11:28] LABS: ABG PCO2 48.4 mmHg (35-45); ABG PH Result 7.38 (7.35-7.45); Arterial Blood Gas Hematocrit 30.5 % (42-52); Base Excess ABG 3.1 mmol/L (-2.0-2.0); Blood Gas Allen Test Pos; Blood Gas Sample Type Arterial; Carboxyhemoglobin 1.2 %THgb (0.4-20.1); HCO3 ABG 28.8 mmol/L (22-26); HGB O2 Sat 97.1 % (95-100); Ionized Calcium Level - ABG 1.2 mmol/L (1.1-1.4); Methemoglobin 0.4 % (0.4-1.5); Oxygen Saturation ABG 98.6; Potassium Level - ABG 3.6 mmol/L (3.5-5.0); Total Hemoglobin 9.9 g/dL (14-18)
[2023-12-02 11:29] LABS: Alveolar-Arterial Oxygen Gradi 4.8 mmHg (5-10); Blood Gas Operator Identificat MONRO; Blood Gas Sample Site Radial, right; Oxygen Device BIPAP; PO2 FiO2 Ratio Arterial Blood 0
[2023-12-02] MEDS: insulin lispro 100 unit/1 mL SUBCUT (12:34)
[2023-12-02] MEDS: acetaminophen 325 mg Tablet 650 MG PO (12:35)
--- NOTE | 2023-12-02 12:53 | ECG_ITS ---
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 Measurements Intervals [place] Rate: 101 P: 28 ID: 148 QRS: 8 QRSD: 101 T: -1 QT: 351 QTc: 456 Interpretive Statements SINUS TACHYCARDIA INCOMPLETE RIGHT BUNDLE BRANCH BLOCK [90+ ms QRS DURATION, TERMINAL R IN V1/V2, 40+ ms S IN I/aVL/V4/V5/V6] NONSPECIFIC T-WAVE ABNORMALITY Compared to ECG 11/30/2023 05:24:17 Incomplete right bundle-branch block now present Sinus rhythm no longer present T-wave abnormality still present Electronically Signed On 12-02-2023 17:23:04 CDT by Harry Bryant M.D. [id number]
[2023-12-02] MEDS: ALPRAZolam 0.5 mg Tablet PO (13:21)
--- NOTE | 2023-12-02 16:24 | PC.NURSE ---
Discussed discharge with patient and spouse. Discussed follow up appointments, new medications and answered all questions. Verbalized understanding was noted from .
--- NOTE | 2023-12-02 17:44 | PC.NURSE ---
Talked with about patient's monroe being pulled and patient has not voided yet. stated when patient has dialysis, maybe voids 150 ml in a 24 hour period. was given instructions if patient does not void by 4 pm on patient is to come back to the hospital. verbally said she would bring him back.
--- NOTE | 2023-12-05 11:12 | P.CONIM_ITS ---
Providers/Reason For Consult 2 Consulting Physician/Specialty*: kommana/nephrology Reason for Consult*: ESRD Attending Physician: Wilfredo Mejía MD Primary Care Provider: Evelin Jenkins DO History of Present Illness History of Present Illness Usman Alvarez is a 73 year old male 73-year-old male with past medical history of end-stage renal disease on hemodialysis, coronary artery disease, diabetes, hypertension presented to the hospital after he had a syncopal episode after hD done yesterday at his HD center. Unclear if bp dropped at that time . Doing well now with out any complaints Review of Systems 2 Narrative: negative Medications/Allergies Home Medications Medication Instructions Recorded Confirmed Last Taken Type garlic 1,000 mg capsule 1,000 mg PO DAILY 08/31/19 12/04/23 12/04/23 History aspirin 81 mg tablet,delayed 81 mg PO BEDTIME 02/05/23 12/04/23 12/03/23 History release nitroglycerin 0.4 mg sublingual 0.4 mg sublingual Q5M PRN Chest 02/05/23 12/04/23 Unknown History tablet (Nitrostat) Pain resveratrol 100 mg capsule 100 mg PO BID 02/05/23 12/04/23 12/04/23 History Owls Boot to Right Lower Extremity #1 ea 03/24/23 12/04/23 Unknown Rx Cam Boot to the right #1 ea 03/26/23 12/04/23 Unknown Rx Vitamin B Complex Liquid See Rx Instructions .Route .COMPLEX 04/16/23 12/04/23 12/04/23 History flash glucose scanning reader 07/19/23 12/04/23 Unknown History (FreeStyle Marcial 2 [place]) fenugreek seed 610 mg capsule 610 mg PO DAILY 08/05/23 12/04/23 12/04/23 History insulin lispro 100 unit/mL See Rx Instructions .Route 10/15/23 12/04/23 12/04/23 Rx subcutaneous pen (Humalog KwikPen .COMPLEX #15 mL (U-100) Insulin) flash glucose sensor (FreeStyle #1 ea 11/07/23 12/04/23 Unknown Rx Marcial 2 Sensor kit) clopidogrel 75 mg tablet 75 mg PO BEDTIME #90 tabs 11/18/23 12/04/23 12/03/23 Rx levothyroxine 175 mcg capsule 175 mcg PO DAILY #60 caps 11/20/23 12/04/23 12/04/23 Rx metoprolol tartrate 50 mg tablet 25 mg PO Q12H PRN Blood Pressure 11/26/23 12/04/23 11/25/23 History doxycycline hyclate 100 mg capsule 100 mg PO BID 7 days #14 caps 12/02/23 12/04/23 12/04/23 Rx insulin detemir U-100 100 unit/mL 10 unit SUBCUT QAM 12/04/23 12/04/23 12/04/23 History (3 mL) subcutaneous pen (Levemir FlexPen) Allergies Allergy/AdvReac Type Severity Reaction Status Date / Time Penicillins Allergy Severe Throat Verified 12/04/23 14:26 swells amiodarone Allergy Unknown Verified 12/04/23 14:26 atorvastatin Allergy ADR-Muscle Verified 12/04/23 14:26 Pain azithromycin Allergy ADR/ALGY-Pa Verified 12/04/23 14:26 lpitations ciprofloxacin Allergy hallucinations Verified 12/04/23 14:26 and burning sensation in legs mirtazapine [From Remeron] Allergy ADR-Nightma Verified 12/04/23 14:26 re simvastatin Allergy ADR-Muscle Verified 12/04/23 14:26 Pain Cordarone Allergy Unknown Confusion Uncoded 12/04/23 14:26 PFSH Acute 2 PFSH: Medical History Peripheral arterial disease Pleural effusion Protein calorie malnutrition Atherosclerosis of coronary artery Sputum culture positive for Pseudomonas and bactrim resistant stenotrophomonas in 08/2023 from [place], prolonged ventilation COVID-19 08/2023 History of pneumothorax 07/2023 iatragenic Hypothyroidism SVT (supraventricular tachycardia) Atrial flutter does not tolerate amiodarone per ESRD on hemodialysis Hopeful that he will be able to come off of dialysis Leg wound, left Aspiration pneumonitis Pulmonary edema Dehiscence of wound 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 Atelectasis, left 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 Hyperlipidemia Diabetic peripheral neuropathy associated with type 2 diabetes mellitus Gangrenous toe CKD (chronic kidney disease) Systolic heart failure Pleural effusion, left Non-healing ulcer Ischemic cardiomyopathy Diabetic ulcer of right foot Kidney stone Amputation toe Diabetes mellitus with peripheral vascular disease HTN (hypertension) Diabetes Surgical History History of thoracentesis 08/2022, 07/2023 right pleural effusion, S/P right coronary artery (RCA) stent placement 08/2023 at [place], 3 JETT to RCA [(2) 2.5 x 38mm, (1) 2.5 x 12 mm] History of cardiac catheterization 08/2023 at [place] History of amputation of toe S/P transmetatarsal amputation of foot all toes right foor Status post amputation of toe of right foot H/O chest tube placement S/P cholecystectomy S/P tonsillectomy S/P cataract extraction Family History Father Cancer LUNG Mother CAD (coronary artery disease) Diabetes Congestive heart failure (CHF) Myocardial infarction Social History Smoking and tobacco/nicotine status: never used tobacco/nicotine Alcohol intake: never Substance/Drug Use: never Household members: spouse Marital status: Current occupational status: retired Vitals/I&O/Wt Last Vital Signs Temp 97.8 F 12/02/23 17:14 Pulse 94 12/02/23 17:14 Resp 18 12/02/23 17:14 BP 130/55 12/02/23 17:14 Pulse Ox 99 12/02/23 15:50 O2 Del Method Nasal Cannula 12/02/23 15:50 O2 Flow Rate 3 11/30/23 05:00 FiO2 28 12/02/23 13:30 Physical Exam 2 Narrative: AWAKE , ALERT HEERNT S1S2 RRR PER REPORT LUNGS CLEAR PER REPORT NO EDEMA Urinary Catheter Management: [place]: Cath Placed During This Visit: yes Reason for Continuing Indwelling Catheter: Other Urinary Catheter Date of Insertion: 11/28/23 Urinary Catheter Time of Insertion: 16:58 Data 12/02/23 05:07 12/02/23 05:07 Micro: Microbiology 11/28/23 18:04 Anaerobic Culture - Preliminary Buttock 11/28/23 07:00 Urine Culture - Preliminary Urine Catheterized Yeast species A&P Assessment and plan (1) End-stage renal disease on hemodialysis: Plan 1. End-stage renal disease: On dialysis per MWF schedule, hd tomorrow if not discharged If pt medically stable - can DC home today 2. Acute on chronic respiratory failure, currently on BiPAP, 3. Anemia: RAUL with HD 4. History of hypertension 5. History of coronary artery disease 6. ? syncope : bp stbale currently , check orthostatics , place on compression stockings Patient evaluated using audiovisual cart. Time spent 20 minutes Consult Attestations 2 Medical Necessity Statement: per mediicne team Coding Level of Care Code Acute Code for Chg Fwd Diagnoses End-stage renal disease on hemodialysis N18.6; Z99.2
--- NOTE | 2023-12-07 09:35 | PM.CONSULT ---
Providers/Reason For Consult Consulting Physician/Specialty*: kommana/Nephrology Reason for Consult*: ESRD Attending Physician: Wilfredo Mejía MD Primary Care Provider: Evelin Jenkins DO History of Present Illness History of Present Illness Usman Alvarez is a 73 year old male 73-year-old male with past medical history of end-stage renal disease on hemodialysis, coronary artery disease, diabetes, hypertension presented to the hospital due to AMS. ABG was obtained which showed a pH of 7.03 with CO2 of 111. Patient was placed on BiPAP Review of Systems Narrative: OTHER ROS NEGATIVE Medications/Allergies Home Medications Medication Instructions Recorded Confirmed Last Taken Type garlic 1,000 mg capsule 1,000 mg PO DAILY 08/31/19 12/06/23 12/04/23 History aspirin 81 mg tablet,delayed 81 mg PO BEDTIME 02/05/23 12/06/23 12/03/23 History release nitroglycerin 0.4 mg sublingual 0.4 mg sublingual Q5M PRN Chest 02/05/23 12/06/23 Unknown History tablet (Nitrostat) Pain resveratrol 100 mg capsule 100 mg PO BID 02/05/23 12/06/23 12/04/23 History Owls Boot to Right Lower Extremity #1 ea 03/24/23 12/06/23 Unknown Rx Cam Boot to the right #1 ea 03/26/23 12/06/23 Unknown Rx Vitamin B Complex Liquid See Rx Instructions .Route .COMPLEX 04/16/23 12/06/23 12/04/23 History flash glucose scanning reader 07/19/23 12/06/23 Unknown History (FreeStyle Marcial 2 [place]) fenugreek seed 610 mg capsule 610 mg PO DAILY 08/05/23 12/06/23 12/04/23 History insulin lispro 100 unit/mL See Rx Instructions .Route 10/15/23 12/06/23 12/04/23 Rx subcutaneous pen (Humalog KwikPen .COMPLEX #15 mL (U-100) Insulin) flash glucose sensor (FreeStyle #1 ea 11/07/23 12/06/23 Unknown Rx Marcial 2 Sensor kit) clopidogrel 75 mg tablet 75 mg PO BEDTIME #90 tabs 11/18/23 12/06/23 12/03/23 Rx doxycycline hyclate 100 mg capsule 100 mg PO BID 7 days #14 caps 12/02/23 12/06/23 12/06/23 Rx insulin detemir U-100 100 unit/mL 10 unit SUBCUT QAM 12/04/23 12/06/23 12/04/23 History (3 mL) subcutaneous pen (Levemir FlexPen) Wilber Vidal Liquid Extract 2.5 ml PO BID 12/06/23 12/06/23 Unknown History levothyroxine 175 mcg tablet 175 mcg PO QAM 12/06/23 12/06/23 12/06/23 History metoprolol tartrate 25 mg tablet 25 mg PO Q12H PRN heart rate 12/06/23 12/06/23 Unknown History thiamine HCl (vitamin B1) 500 mg 500 mg PO DAILY 12/06/23 12/06/23 Unknown History tablet Allergies Allergy/AdvReac Type Severity Reaction Status Date / Time Penicillins Allergy Severe Throat Verified 12/06/23 10:26 swells amiodarone Allergy Unknown Verified 12/06/23 10:26 atorvastatin Allergy ADR-Muscle Verified 12/06/23 10:26 Pain azithromycin Allergy ADR/ALGY-Pa Verified 12/06/23 10:26 lpitations ciprofloxacin Allergy hallucinations Verified 12/06/23 10:26 and burning sensation in legs mirtazapine [From Remeron] Allergy ADR-Nightma Verified 12/06/23 10:26 re simvastatin Allergy ADR-Muscle Verified 12/06/23 10:26 Pain Cordarone Allergy Unknown Confusion Uncoded 12/06/23 10:26 PFSH Acute PFSH: Medical History Peripheral arterial disease Pleural effusion Protein calorie malnutrition Atherosclerosis of coronary artery Sputum culture positive for Pseudomonas and bactrim resistant stenotrophomonas in 08/2023 from [place], prolonged ventilation COVID-19 08/2023 History of pneumothorax 07/2023 iatragenic Hypothyroidism SVT (supraventricular tachycardia) Atrial flutter does not tolerate amiodarone per ESRD on hemodialysis Hopeful that he will be able to come off of dialysis Leg wound, left Aspiration pneumonitis Pulmonary edema Dehiscence of wound 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 Atelectasis, left 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 Hyperlipidemia Diabetic peripheral neuropathy associated with type 2 diabetes mellitus Gangrenous toe CKD (chronic kidney disease) Systolic heart failure Pleural effusion, left Non-healing ulcer Ischemic cardiomyopathy Diabetic ulcer of right foot Kidney stone Amputation toe Diabetes mellitus with peripheral vascular disease HTN (hypertension) Diabetes Surgical History History of thoracentesis 08/2022, 07/2023 right pleural effusion, S/P right coronary artery (RCA) stent placement 08/2023 at [facility] [place], 3 JETT to RCA [(2) 2.5 x 38mm, (1) 2.5 x 12 mm] History of cardiac catheterization 08/2023 at [facility] History of amputation of toe S/P transmetatarsal amputation of foot all toes right foor Status post amputation of toe of right foot H/O chest tube placement S/P cholecystectomy S/P tonsillectomy S/P cataract extraction Family History Father Cancer LUNG Mother CAD (coronary artery disease) Diabetes Congestive heart failure (CHF) Myocardial infarction Social History Smoking and tobacco/nicotine status: never used tobacco/nicotine Alcohol intake: never Substance/Drug Use: never Household members: spouse Marital status: Current occupational status: retired Vitals/I&O/Wt Last Vital Signs Temp 97.8 F 12/02/23 17:14 Pulse 94 12/02/23 17:14 Resp 18 12/02/23 17:14 BP 130/55 12/02/23 17:14 Pulse Ox 99 12/02/23 15:50 O2 Del Method Nasal Cannula 12/02/23 15:50 O2 Flow Rate 3 11/30/23 05:00 FiO2 28 12/02/23 13:30 Physical Exam Narrative: On BIPAP Urinary Catheter Management: [place]: Cath Placed During This Visit: yes Reason for Continuing Indwelling Catheter: Other Urinary Catheter Date of Insertion: 11/28/23 Urinary Catheter Time of Insertion: 16:58 Data 12/02/23 05:07 12/02/23 05:07 Micro: Microbiology 11/28/23 18:04 Anaerobic Culture - Final Buttock A&P Assessment and plan (1) End-stage renal disease on hemodialysis: Plan 1. End-stage renal disease: On dialysis per MWF schedule, hd TODAY 2. Acute on chronic respiratory failure, currently on BiPAP, 3. Anemia: RAUL with HD 4. History of hypertension 5. History of coronary artery disease 6. recuurent syncope 7.AMS Patient evaluated using audiovisual cart. Time spent 30 minutes Consult Attestations Medical Necessity Statement: PER TY Coding Level of Care Code Acute Code for [facility] Fwd Diagnoses End-stage renal disease on hemodialysis N18.6; Z99.2
--- NOTE | 2023-12-08 09:51 | P.PN_ITS ---
Subjective 2 Subjective: s/p HD yesterday Medications: Reviewed: Yes Vitals/I&O/Wt Last Vital Signs Temp 97.8 F 12/02/23 17:14 Pulse 94 12/02/23 17:14 Resp 18 12/02/23 17:14 BP 130/55 12/02/23 17:14 Pulse Ox 99 12/02/23 15:50 O2 Del Method Nasal Cannula 12/02/23 15:50 O2 Flow Rate 3 11/30/23 05:00 FiO2 28 12/02/23 13:30 Physical Exam 2 Narrative: On BIPAP Urinary Catheter Management: [place]: Cath Placed During This Visit: yes Reason for Continuing Indwelling Catheter: Other Urinary Catheter Date of Insertion: 11/28/23 Urinary Catheter Time of Insertion: 16:58 Data 12/02/23 05:07 12/02/23 05:07 A&P Assessment and plan (1) End-stage renal disease on hemodialysis: Plan 1. End-stage renal disease: On dialysis per MWF schedule, HD done yesterday 2. Acute on chronic respiratory failure, currently on BiPAP, 3. Anemia: RAUL with HD 4. History of hypertension 5. History of coronary artery disease 6. recuurent syncope 7.AMS Patient evaluated using audiovisual cart. Time spent 30 minutes Attestations 2 Medical Necessity Statement*: per lucy Coding Level of Care Code Acute Code for Chg Fwd Diagnoses End-stage renal disease on hemodialysis N18.6; Z99.2
== END 2023-12-02 17:14 | disposition home health service (06) | DRG 186 ==
LOC: ICU 09:15 → MEDSURG 12-01 21:08
PROVIDERS: Hospitalist; Internal Medicine; Admitting Provider Internal Medicine; PCP Family Medicine; Visit Provider Internal Medicine Pulmonary Disease
PROC: 0W993ZZ Drainage of Right Pleural Cavity, Percutaneous Approach (ICD-10-PCS; CPT 32554; principal; 2023-11-28 07:00)
DX: J90 Pleural effusion, not elsewhere classified (principal); J96.02 Acute respiratory failure with hypercapnia; L89.154 Pressure ulcer of sacral region, stage 4; N18.6 End stage renal disease; I13.2 Hypertensive heart and chronic kidney disease with heart failure and with stage 5 chronic kidney disease, or end stage renal disease; G93.40 Encephalopathy, unspecified; I48.92 Unspecified atrial flutter; I50.22 Chronic systolic (congestive) heart failure; Z99.2 Dependence on renal dialysis; R55 Syncope and collapse; E03.9 Hypothyroidism, unspecified; E78.5 Hyperlipidemia, unspecified; E11.621 Type 2 diabetes mellitus with foot ulcer; L97.512 Non-pressure chronic ulcer of other part of right foot with fat layer exposed; R53.81 Other malaise; D63.1 Anemia in chronic kidney disease; I25.2 Old myocardial infarction; Z86.16 Personal history of COVID-19; I25.5 Ischemic cardiomyopathy; I25.10 Atherosclerotic heart disease of native coronary artery without angina pectoris; Z95.5 Presence of coronary angioplasty implant and graft; E11.22 Type 2 diabetes mellitus with diabetic chronic kidney disease; Z79.82 Long term (current) use of aspirin; Z79.02 Long term (current) use of antithrombotics/antiplatelets; I73.9 Peripheral vascular disease, unspecified
CPT/HCPCS: 36415; 36416; 36600; 51702; 70450; 71045; 80048; 80051; 80053; 80202; 80503; 81001; 82042; 82140; 82150; 82330; 82465; 82805; 82945; 82962; 83605; 83615; 83735; 83986; 84075; 84100; 84157; 84315; 84443; 84478; 84484; 84560; 85025; 86706; 87015; 87040; 87070; 87075; 87086; 87106; 87116; 87205; 87206; 87340; 87801; 89050; 90935; 93005; 94660; 94664; 96365; 96372; 96374; 96376; 99291; C9113; J1644; J1815; J2060; J2185; J2270; J3370; J7030; P9046; P9047; Q3014

== ENCOUNTER 2023-12-04 14:17 | Inpatient (IN) | payer MEDICARE, SELFPAY ==
[2023-12-04] VITALS (15 sets, daily range): BP systolic 123–155; BP diastolic 63–86; PULSE 95–108; RESP 4–30; TEMP 36.5; O2SAT 95–100; BMI 25.1
--- NOTE | 2023-12-04 14:19 | ECG_ITS ---
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 Measurements Intervals [place] Rate: 104 P: 58 GA: 170 QRS: 22 QRSD: 101 T: 147 QT: 306 QTc: 403 Interpretive Statements Possible sinus TACHYCARDIA WITH OCCASIONAL SUPRAVENTRICULAR PREMATURE COMPLEXES INCOMPLETE RIGHT BUNDLE BRANCH BLOCK [90+ ms QRS DURATION, TERMINAL R IN V1/V2, 40+ ms S IN I/aVL/V4/V5/V6] ST DEVIATION AND MODERATE T-WAVE ABNORMALITY, CONSIDER LATERAL ISCHEMIA [-0.1+ mV T-WAVE IN I/aVL/V5/V6] Compared to ECG 12/02/2023 12:53:08 Possible ischemia now present T-wave abnormality still present Electronically Signed On 12-04-2023 23:05:17 CDT by Lito Louis M.D. [id number]
--- NOTE | 2023-12-04 14:26 | W.ED.SYNCOPE ---
HPI - Syncope General: Chief Complaint: Syncope Stated Complaint: syncope episode Time Seen by Provider: 12/04/23 14:18 Source: patient Mode of arrival: EMS History of Present Illness: 73-year-old male presents emergency room via EMS from dialysis. Dialysis patient was sitting in his chair get dizzy lightheaded and then lost consciousness briefly. He did not strike his head and this did not occur after he stood up. Patient recently was hospitalized here he has a known history of coronary artery disease he declined several interventions and evaluations. He is having some mild chest discomfort at this time. Denies any shortness of breath no hemoptysis. Per the they did not pull any fluid off during his dialysis run he finished most of the run today. complaint: loss of consciousness and collapsed Onset (ago): minute(s) Witnessed: Yes - by Bystander Context: at rest Injuries sustained associated with event: none Associated symptoms: Reports lightheadedness and weakness; Deny abdominal pain, chest pain, fever(s) or short of breath History: history of CAD Treatments prior to arrival: none Review of Systems Const: Denies: fever(s) or chills Card: Reports: lightheadedness; Denies: chest pain Resp: Denies: dyspnea GI: Denies: abdominal pain : Denies: dysuria, urinary frequency or urinary urgency Musc: Denies: neck pain or back pain Skin/Breast: Denies: rash PFSH ED PFSH: Medical History Peripheral arterial disease Pleural effusion Protein calorie malnutrition Atherosclerosis of coronary artery Sputum culture positive for Pseudomonas and bactrim resistant stenotrophomonas in 08/2023 from [place], prolonged ventilation COVID-19 08/2023 History of pneumothorax 07/2023 iatragenic Hypothyroidism SVT (supraventricular tachycardia) Atrial flutter does not tolerate amiodarone per ESRD on hemodialysis Hopeful that he will be able to come off of dialysis Leg wound, left Aspiration pneumonitis Pulmonary edema Dehiscence of wound 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 Atelectasis, left 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 Hyperlipidemia Diabetic peripheral neuropathy associated with type 2 diabetes mellitus Gangrenous toe CKD (chronic kidney disease) Systolic heart failure Pleural effusion, left Non-healing ulcer Ischemic cardiomyopathy Diabetic ulcer of right foot Kidney stone Amputation toe Diabetes mellitus with peripheral vascular disease HTN (hypertension) Diabetes Surgical History History of thoracentesis 08/2022, 07/2023 right pleural effusion, S/P right coronary artery (RCA) stent placement 08/2023 at [place], 3 JETT to RCA [(2) 2.5 x 38mm, (1) 2.5 x 12 mm] History of cardiac catheterization 08/2023 at [place] History of amputation of toe S/P transmetatarsal amputation of foot all toes right foor Status post amputation of toe of right foot H/O chest tube placement S/P cholecystectomy S/P tonsillectomy S/P cataract extraction Family History Father Cancer LUNG Mother CAD (coronary artery disease) Diabetes Congestive heart failure (CHF) Myocardial infarction Social History Smoking and tobacco/nicotine status: never used tobacco/nicotine Alcohol intake: never Substance/Drug Use: never Household members: spouse Marital status: Current occupational status: retired Physical Exam Const: GENERAL APPEARANCE: cooperative ORIENTATION/CONSCIOUSNESS: Yes awake, Yes oriented to person, Yes oriented to place and Yes oriented to time HENMT: COMMON NORMALS: normocephalic, atraumatic and hearing grossly normal bilaterally HEAD & SCALP: normocephalic and atraumatic Resp: COMMON NORMALS: normal respiratory effort, No retractions, No use of accessory muscles and clear to auscultation bilaterally AUSCULTATION: clear to auscultation bilaterally Cardio: COMMON NORMALS: regular rate, regular rhythm and No murmurs present (Cardio) RATE: regular rate RHYTHM: regular rhythm GI: COMMON NORMALS: Soft to palpation and No hepatosplenomegaly present AUSCULTATION: Yes normoactive bowel sounds PALPATION: Yes Soft to palpation, No Tenderness to palpation present (GI), No Guarding due to palpation present (GI) and Yes No hepatosplenomegaly present Extremity: OTHER: Chronic edema and ulcers lower extremities unchanged Neuro: SENSORIUM/ORIENTATION: Yes oriented to person, Yes oriented to place and Yes oriented to time Skin: COMMON NORMALS: no rashes or lesions noted GENERAL SKIN EXAM: no rashes or lesions noted Course Vital Signs: Vital signs: Vital Signs Temperature 97.7 F 12/04/23 14:23 Pulse Rate 99 12/04/23 16:30 Respiratory Rate 29 H 12/04/23 16:00 Blood Pressure 136/86 12/04/23 16:00 Pulse Oximetry 98 12/04/23 16:30 Oxygen Delivery Me thod Room Air 12/04/23 15:55 Oxygen Flow Rate 3 12/04/23 14:23 MDM - Syncope Medical Decision Making Patient's troponin markedly elevated even off of his baseline usually accounting for his chronic renal disease today is 617 he has not been in the past his creatinine is not that significantly elevated he has known coronary disease family states they are willing to do further evaluation at this point. Patient started on heparin will admit to the hospitalist discussed with hospitalist. Medical Records I reviewed the patient's medical records. Lab Data I reviewed the patient's lab results. 12/04/23 14:39 12/04/23 14:39 Radiology Impressions Chest X-Ray 12/04/23 15:11 IMPRESSION: Opacity lower right chest with nonvisualization of the right diaphragm likely representing combination of pleural effusion with underlying atelectasis and/or consolidation, with suggestion of slight worsening from 12/02/2023 exam. Mild left basilar atelectasis. Laboratory Results WBC 9.29 10^3/uL (3.29-11.43) 12/04/23 14:39 RBC 3.77 10^6/uL (3.85-5.65) L 12/04/23 14:39 Hgb 11.10 g/dL (11.27-16.99) L 12/04/23 14:39 Hct 36.6 % (37-53) L 12/04/23 14:39 MCV 97.1 fl (82-101) 12/04/23 14:39 MCH 29.4 pg (27-33) 12/04/23 14:39 MCHC 30.3 g/dL (30-55) 12/04/23 14:39 RDW 14.6 % (12.1-15.1) 12/04/23 14:39 Plt Count 228 10^3/cmm (157-399) 12/04/23 14:39 MPV 9.0 fL (7.4-10.4) 12/04/23 14:39 Neut % (Auto) 60.1 % 12/04/23 14:39 Lymph % (Auto) 28.8 % 12/04/23 14:39 [place] % (Auto) 7.2 % 12/04/23 14:39 Eos % (Auto) 2.8 % 12/04/23 14:39 Baso % (Auto) 0.9 % 12/04/23 14:39 Neut # (Auto) 5.58 10^3/uL (1.8-7.7) 12/04/23 14:39 Lymph # (Auto) 2.7 10^3/uL (0.8-4.8) 12/04/23 14:39 [place] # (Auto) 0.7 10^3/uL (0.2-0.9) 12/04/23 14:39 Eos # (Auto) 0.3 10^3/uL (0.0-0.8) 12/04/23 14:39 Baso # (Auto) 0.1 10^3/uL (0.0-0.1) 12/04/23 14:39 Nucleated RBC % (auto) 0 % 12/04/23 14:39 Nucleated RBCs # 0.0 /100WBC 12/04/23 14:39 Sodium 134 mmol/L (136-145) L 12/04/23 14:39 Potassium 3.7 mmol/L (3.5-5.1) 12/04/23 14:39 Chloride 97 mmol/L (98-107) L 12/04/23 14:39 Carbon Dioxide 27 mmol/L (22-29) 12/04/23 14:39 Anion Gap 13.7 (5-19) 12/04/23 14:39 BUN 15 mg/dL (8-23) 12/04/23 14:39 Creatinine 1.5 mg/dL (0.7-1.2) H 12/04/23 14:39 GFR Calculation Not Reportable 12/04/23 14:39 Glucose 105 mg/dL (65-115) 12/04/23 14:39 Calculated Osmolality 279 mOsm/kg (285-295) L 12/04/23 14:39 Calcium 8.4 mg/dL (8.5-10.5) L 12/04/23 14:39 Total Bilirubin 0.3 mg/dL (0.15-1.2) 12/04/23 14:39 AST 11 U/L (0-40) 12/04/23 14:39 ALT 6 U/L (0-41) 12/04/23 14:39 Alkaline Phosphatase 81 U/L (40-130) 12/04/23 14:39 Troponin T Baseline 617 ng/L (0-15) H* 12/04/23 14:39 Total Protein 6.3 g/dL (6.6-8.7) L 12/04/23 14:39 Albumin 3.3 g/dL (3.5-5.2) L 12/04/23 14:39 Globulin 3.0 g/dL (1.3-4.6) 12/04/23 14:39 Urine Color Yellow (Yellow) 12/04/23 15:32 Urine Appearance Turbid (CLEAR) A 12/04/23 15:32 Urine pH 6 (5-7) 12/04/23 15:32 Ur Specific [place] 1.010 (1.005-1.030) 12/04/23 15:32 Urine Protein 3+ (Negative) H 12/04/23 15:32 Urine Glucose (UA) Norm (Normal) 12/04/23 15:32 Urine Ketones 1+ (Negative) H 12/04/23 15:32 Urine Blood 3+ (Negative) H 12/04/23 15:32 Urine Nitrate Negative (Negative) 12/04/23 15:32 Urine Bilirubin Neg (Negative) 12/04/23 15:32 Urine Urobilinogen Norm mg/dL (Negative) 12/04/23 15:32 Ur Leukocyte Esterase 2+ (Negative) H 12/04/23 15:32 Urine RBC 15-25 /hpf (0-2) H 12/04/23 15:32 Urine WBC Too numerous to cnt /hpf (0-5) H 12/04/23 15:32 Ur Squamous Epith Cells 0-4 /hpf (0-5) H 12/04/23 15:32 Amorphous Sediment Not Reportable 12/04/23 15:32 Urine Bacteria 1+ /hpf (NONE) H 12/04/23 15:32 Urine Mucus Trace /hpf 12/04/23 15:32 All radiology interpretation(s) finalized by discharge Discharge Plan Discharge Patient Disposition: Admitted As Inpatient Clinical Impression: Syncope, End-stage renal disease on hemodialysis, Elevated troponin I level Condition: Stable Prescriptions: No Action garlic 1,000 mg capsule 1,000 mg PO DAILY (DME) Cam Boot to the right See Rx Instructions .Route .MEDSUPPLY Qty: 1 0RF Rx Instructions: As directed (DME) Ow[place] Boot to Right Lower Extremity See Rx Instructions .Route .MEDSUPPLY Qty: 1 0RF Rx Instructions: As directed [place] (DME) FreeStyle Marcial 2 Sensor Kit MISCELLANEOUS Qty: 1 2RF Rx Instructions: As directed clopidogrel 75 mg tablet 75 mg PO BEDTIME Qty: 90 0RF levothyroxine 175 mcg capsule 175 mcg PO DAILY Qty: 60 0RF nitroglycerin [Nitrostat] 0.4 mg Tablet, Sublingual 0.4 mg SUBLINGUAL Q5M PRN (Reason: Chest Pain) Rx Instructions: do not exceed 3 doses per episode resveratrol 100 mg Capsule 100 mg PO BID aspirin 81 mg tablet,delayed release (DR/EC) 81 mg PO BEDTIME Vitamin B Complex Liquid See Rx Instructions .ROUTE .COMPLEX Rx Instructions: one dropperful once a day insulin lispro [Humalog KwikPen Insulin] 100 unit/mL insulin pen See Rx Instructions .ROUTE .COMPLEX Qty: 15 0RF Dose Instruction: inject 10 units SUBCUTANEOUSLY THREE TIMES DAILY Rx Instructions: inject, subcut, tid with meals, based on low dose sliding scale (DME) FreeStyle Marcial 2 [place] Misc MISCELLANEOUS fenugreek seed 610 mg Capsule 610 mg PO DAILY metoprolol tartrate 50 mg tablet 25 mg PO Q12H PRN (Reason: Blood Pressure) doxycycline hyclate 100 mg capsule 100 mg PO BID 7 Days Qty: 14 0RF Levemir FlexPen 100 unit/mL (3 mL) insulin pen 10 unit SUBCUT QAM Referrals: Evelin Jenkins DO [Primary Care Provider] - Coding Level of Care Code ED Balloon Maker for Abdirizak Zhou
[2023-12-04 14:50] LABS: Basophils # 0.1 10^3/uL (0.0-0.1); Basophils % 0.9 %; Eosinophils # 0.3 10^3/uL (0.0-0.8); Eosinophils % 2.8 %; Hematocrit 36.6 % (37-53); Lymphocytes # 2.7 10^3/uL (0.8-4.8); Lymphocytes % 28.8 %; Mean Corpuscular HGB Conc 30.3 g/dL (30-55); Mean Corpuscular Hemoglobin 29.4 pg (27-33); Mean Corpuscular Volume 97.1 fl (82-101); Monocytes # 0.7 10^3/uL (0.2-0.9); Monocytes % 7.2 %; Neutrophils # 5.58 10^3/uL (1.8-7.7); Neutrophils % 60.1 %; Nucleated Red Blood Cells % 0 %; Platelet Count 228 10^3/cmm (157-399); Red Blood Count 3.77 10^6/uL (3.85-5.65); Red Cell Distribution Width 14.6 % (12.1-15.1); White Blood Count 9.29 10^3/uL (3.29-11.43)
[2023-12-04 15:03] LABS: Alanine Aminotransferase 6 U/L (0-41); Albumin Level 3.3 g/dL (3.5-5.2); Alkaline Phosphatase 81 U/L (40-130); Aspartate Amino Transferase 11 U/L (0-40); Blood Urea Nitrogen 15 mg/dL (8-23); Calcium 8.4 mg/dL (8.5-10.5); Carbon Dioxide 27 mmol/L (22-29); Chloride 97 mmol/L (98-107); Creatinine Clr Calc Pharmacy 49.7303; Glucose 105 mg/dL (65-115); Osmolality Calculated 279 mOsm/kg (285-295); Sodium 134 mmol/L (136-145); Total Bilirubin 0.3 mg/dL (0.15-1.2); Total Protein 6.3 g/dL (6.6-8.7)
[2023-12-04 15:08] LABS: Anion Gap 13.7 (5-19); Potassium 3.7 mmol/L (3.5-5.1)
--- NOTE | 2023-12-04 15:11 | XRR_ITS ---
PROCEDURE INFORMATION: Exam: XR Chest Exam date and time: 12/04/2023 3:22 PM Age: 73 years old Clinical indication: Cough and dyspnea; Additional info: Dyspnea/cough TECHNIQUE: Imaging protocol: Radiologic exam of the chest. Views: 1 view. COMPARISON: CR XR chest 1V portable [id number] 12/02/2023 12:09 PM FINDINGS: Tubes, catheters and devices: Right internal jugular dialysis catheter is seen, as noted with recent prior exam. Lungs: Continued opacity within the lower right chest with nonvisualization of the right diaphragm along with mild linear type opacity left lung base. Findings on the right likely represent a combination of pleural effusion with underlying atelectasis and/or consolidation. Findings in the left lung base likely represent subsegmental atelectasis. No pneumothorax. Suggestion of a slight increase in opacity and/or effusion on the right from 12/02/2023 exam. Pleural spaces: See Lungs finding. Heart/Mediastinum: No significant cardiomegaly. Vasculature: Arteriosclerosis thoracic aorta. Bones/joints: Visualized osseous structures show no acute abnormality. XR/XR chest 1V portable [id number] IMPRESSION: Opacity lower right chest with nonvisualization of the right diaphragm likely representing combination of pleural effusion with underlying atelectasis and/or consolidation, with suggestion of slight worsening from 12/02/2023 exam. Mild left basilar atelectasis.
[2023-12-04 15:21] LABS: Troponin(5th) Baseline 617 ng/L (0-15)
[2023-12-04 15:55] LABS: Add Urine Microscopic? YES; Bilirubin Urine Neg (Negative); Blood Urine 3+ (Negative); Glucose Urine UA Norm (Normal); Ketones Urine 1+ (Negative); Leukocyte Esterase Urine 2+ (Negative); Nitrate Urine Negative (Negative); Protein Urine 3+ (Negative); Urine Appearance Turbid (CLEAR); Urine Color Yellow (Yellow); Urobilinogen Urine Norm (Negative); pH Urine 6 (5-7)
[2023-12-04 16:01] LABS: Add Urine Culture? Yes; Bacteria Urine 1+ /hpf; Mucus Urine TRACE /hpf; RBC Urine 15-25 /hpf (0-2); Squamous Epithelial Cell Urine 0-4 /hpf (0-5); WBC Urine TOO NUMEROUS TO CNT /hpf (0-5)
--- NOTE | 2023-12-04 16:19 | ECG_ITS ---
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 Measurements Intervals [place] Rate: 98 P: 54 WV: 145 QRS: 30 QRSD: 97 T: 85 QT: 337 QTc: 431 Interpretive Statements SINUS RHYTHM WITH OCCASIONAL VENTRICULAR PREMATURE COMPLEXES WITH OCCASIONAL SUPRAVENTRICULAR PREMATURE COMPLEXES INCOMPLETE RIGHT BUNDLE BRANCH BLOCK [90+ ms QRS DURATION, TERMINAL R IN V1/V2, 40+ ms S IN I/aVL/V4/V5/V6] MODERATE T-WAVE ABNORMALITY, CONSIDER LATERAL ISCHEMIA [-0.1+ mV T-WAVE IN I/aVL/V5/V6] Compared to ECG 12/04/2023 14:24:04 Ventricular premature complex(es) now present Sinus tachycardia no longer present T-wave abnormality still present Possible ischemia still present Electronically Signed On 12-04-2023 23:17:05 CDT by Lito Louis M.D. [id number]
[2023-12-04] MEDS: heparin drip 25,000 UNIT/500 ML PREMIX 37.5600000000000023 UNIT IV (16:34)
[2023-12-04] MEDS: heparin 5,000 unit/mL INJ 1 mL IV (16:35)
--- NOTE | 2023-12-04 18:47 | PM.HP ---
Providers/Chief Complaint Admitting Physician: Kia Moreno MD Primary Care Provider: Evelin Jenkins DO Chief Complaint: syncope episode History of Present Illness Usman Alvarez is a 73 year old male With past medical history of recurrent pleural effusion, end-stage renal disease on hemodialysis Friday, CAD status post 3 stents, diabetes mellitus insulin-dependent, sacral decubitus ulcer, recent NSTEMI, hypothyroidism, recurrent syncope as per presented to the hospital today after another syncopal episode. She says this happened after dialysis. This has happened before as well. She is not sure if his blood pressure drops. Patient was discharged from the hospital yesterday. Please see previous discharge summary for more details. Patient has a lot of chronic issues. In the ER today UA was obtained which was remarkably abnormal. Patient was given 1 dose of meropenem. Initial troponin also 617. Previous tropes and previous hospital stay were in 200 range. He was started on a heparin drip. Cardiology was consulted. Patient will be admitted at this time for treatment of NSTEMI, UTI, further workup of syncope. Medications/Allergies Home Medications Medication Instructions Recorded Confirmed Last Taken Type garlic 1,000 mg capsule 1,000 mg PO DAILY 08/31/19 12/04/23 12/04/23 History aspirin 81 mg tablet,delayed 81 mg PO BEDTIME 02/05/23 12/04/23 12/03/23 History release nitroglycerin 0.4 mg sublingual 0.4 mg sublingual Q5M PRN Chest 02/05/23 12/04/23 Unknown History tablet (Nitrostat) Pain resveratrol 100 mg capsule 100 mg PO BID 02/05/23 12/04/23 12/04/23 History Owls Boot to Right Lower Extremity #1 ea 03/24/23 12/04/23 Unknown Rx Cam Boot to the right #1 ea 03/26/23 12/04/23 Unknown Rx Vitamin B Complex Liquid See Rx Instructions .Route .COMPLEX 04/16/23 12/04/23 12/04/23 History flash glucose scanning reader 07/19/23 12/04/23 Unknown History (FreeStyle Marcial 2 [place]) fenugreek seed 610 mg capsule 610 mg PO DAILY 08/05/23 12/04/23 12/04/23 History insulin lispro 100 unit/mL See Rx Instructions .Route 10/15/23 12/04/23 12/04/23 Rx subcutaneous pen (Humalog KwikPen .COMPLEX #15 mL (U-100) Insulin) flash glucose sensor (FreeStyle #1 ea 11/07/23 12/04/23 Unknown Rx Marcial 2 Sensor kit) clopidogrel 75 mg tablet 75 mg PO BEDTIME #90 tabs 11/18/23 12/04/23 12/03/23 Rx levothyroxine 175 mcg capsule 175 mcg PO DAILY #60 caps 11/20/23 12/04/23 12/04/23 Rx metoprolol tartrate 50 mg tablet 25 mg PO Q12H PRN Blood Pressure 11/26/23 12/04/23 11/25/23 History doxycycline hyclate 100 mg capsule 100 mg PO BID 7 days #14 caps 12/02/23 12/04/23 12/04/23 Rx insulin detemir U-100 100 unit/mL 10 unit SUBCUT QAM 12/04/23 12/04/23 12/04/23 History (3 mL) subcutaneous pen (Levemir FlexPen) Allergies Allergy/AdvReac Type Severity Reaction Status Date / Time Penicillins Allergy Severe Throat Verified 12/04/23 14:26 swells amiodarone Allergy Unknown Verified 12/04/23 14:26 atorvastatin Allergy ADR-Muscle Verified 12/04/23 14:26 Pain azithromycin Allergy ADR/ALGY-Pa Verified 12/04/23 14:26 lpitations ciprofloxacin Allergy hallucinations Verified 12/04/23 14:26 and burning sensation in legs mirtazapine [From Remeron] Allergy ADR-Nightma Verified 12/04/23 14:26 re simvastatin Allergy ADR-Muscle Verified 12/04/23 14:26 Pain Cordarone Allergy Unknown Confusion Uncoded 12/04/23 14:26 PFSH Acute PFSH: Medical History Peripheral arterial disease Pleural effusion Protein calorie malnutrition Atherosclerosis of coronary artery Sputum culture positive for Pseudomonas and bactrim resistant stenotrophomonas in 08/2023 from [place], prolonged ventilation COVID-19 08/2023 History of pneumothorax 07/2023 iatragenic Hypothyroidism SVT (supraventricular tachycardia) Atrial flutter does not tolerate amiodarone per ESRD on hemodialysis Hopeful that he will be able to come off of dialysis Leg wound, left Aspiration pneumonitis Pulmonary edema Dehiscence of wound 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 Atelectasis, left 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 Hyperlipidemia Diabetic peripheral neuropathy associated with type 2 diabetes mellitus Gangrenous toe CKD (chronic kidney disease) Systolic heart failure Pleural effusion, left Non-healing ulcer Ischemic cardiomyopathy Diabetic ulcer of right foot Kidney stone Amputation toe Diabetes mellitus with peripheral vascular disease HTN (hypertension) Diabetes Surgical History History of thoracentesis 08/2022, 07/2023 right pleural effusion, S/P right coronary artery (RCA) stent placement 08/2023 at [place], 3 JETT to RCA [(2) 2.5 x 38mm, (1) 2.5 x 12 mm] History of cardiac catheterization 08/2023 at [place] History of amputation of toe S/P transmetatarsal amputation of foot all toes right foor Status post amputation of toe of right foot H/O chest tube placement S/P cholecystectomy S/P tonsillectomy S/P cataract extraction Family History Father Cancer LUNG Mother CAD (coronary artery disease) Diabetes Congestive heart failure (CHF) Myocardial infarction Social History Smoking and tobacco/nicotine status: never used tobacco/nicotine Alcohol intake: never Substance/Drug Use: never Household members: spouse Marital status: Current occupational status: retired Vitals/I&O/Wt Last Vital Signs Temp 97.7 F 12/04/23 14:23 Pulse 100 12/04/23 17:00 Resp 29 H 12/04/23 16:00 BP 137/70 12/04/23 17:00 Pulse Ox 100 12/04/23 17:00 O2 Del Method Room Air 12/04/23 15:55 O2 Flow Rate 3 12/04/23 14:23 Weight last 48 hrs Weight 81.647 kg Physical Exam Narrative: General exam demonstrates a white male, chronically ill-appearing. No conversational dyspnea however does appear very slightly short of breath which is chronic for him. Cardiovascular not tachycardic, regular. Dialysis catheter noted right chest Lungs diminished breath sounds bilaterally right greater than left. No crackles. No wheezes Abdomen is soft, positive bowel sounds. No obvious organomegaly Extremities 2+ edema bilaterally. No cyanosis or clubbing. Neuro: No focal deficits Data 12/04/23 14:39 12/04/23 14:39 A&P Assessment and plan (1) Elevated troponin I level: (2) Atherosclerosis of coronary artery: Qualifiers: Associated angina: without angina Coronary Disease-Associated Artery/Lesion type: [place] artery [place] vs. transplanted heart: [place] heart Qualified Code(s): I25.10 - Atherosclerotic heart disease of [place] coronary artery without angina pectoris (3) Diabetes: Qualifiers: Chronic kidney disease stage: stage 5, not on chronic dialysis Diabetes mellitus complication detail: with chronic kidney disease Diabetes mellitus complication status: with kidney complications Diabetes mellitus intermediate insulin use: with intermediate designer use Diabetes mellitus type: type 2 Qualified Code(s): E11.22 - Type 2 diabetes mellitus with diabetic chronic kidney disease; N18.5 - Chronic kidney disease, stage 5; Z79.4 - superintendent [employer] (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) use of insulin (4) CKD (chronic kidney disease): Qualifiers: Chronic kidney disease stage: on chronic dialysis Qualified Code(s): N18.6 - End stage renal disease; Z99.2 - Dependence on renal dialysis (5) Pressure injury of sacral region, unstageable: (6) Sacral decubitus ulcer, stage IV: (7) Peripheral neuropathy: (8) Syncope: (9) End-stage renal disease on hemodialysis: (10) NSTEMI (non-ST elevated myocardial infarction): Plan #UTI #CAD status post PCI x 4 stents #Syncope after dialysis #Elevated troponin, NSTEMI #Sacral decubitus ulcer #Recurrent pleural effusion with recent thoracentesis #Diabetes mellitus, insulin-dependent #Hypothyroidism ? Continue aspirin, Plavix, metoprolol tartrate, levothyroxine ? Elevated troponin. Initial troponin 617. Subsequent troponins are pending at this time. ? Urinalysis shows 3+ protein, 3+ blood, too numerous to count WBCs. Place patient on meropenem which will cover sacral decubitus ulcers and UTI. ? Most likely orthostatic positive. Will check orthostatic vitals ? Repeat chest x-ray today shows opacity lower right chest with nonvisualization of right diaphragm likely representing combination of pleural effusion with underlying atelectasis or consolidation with suggestion of slight worsening from exam. ? No pulmonary coverage available at this time. Will discuss with radiology in a.m. if patient amenable to another thoracentesis. However plan was to place a permanent drain in case effusion requires as per last discussion with director of student aid. Patient was recently discharged. ? Shortness of breath chronic present. Discussed with patient regarding palliative care possibly. He is to discuss this with his primary care doctor. ? He states morphine helped with the shortness of breath. I will order morphine 2 mg every 6 hours as needed for that ? Had an extensive discussion with patient's and patient regarding further workup with stress test versus angiogram. At previous admission he was diagnosed with an NSTEMI and was on a heparin drip for 48 hours however after seen by cardiology patient's and patient declined any further workup including a stress test. Medical management was opted for. At this point cardiology has been consulted again. Patient and will think about further cardiology workup. ? Continue on heparin drip for another 48 hours. Discussed with cardiology. ? Echo was obtained previous admission. I will repeat a limited echo at this time to assess for any gross wall motion abnormalities -Patient to follow-up with general surgery for sacral decub ulcer. He had debridement at previous admission and was discharged yesterday. -Consult nephrology for routine dialysis. Check BNP DNR/DNI?discussed with patient in detail and he does not want to be resuscitated ? DVT prophylaxis: Patient on heparin drip Patient does carry a risk of multiple admissions secondary to chronic issues. Attestations Medical Necessity Statement*: Requires greater than 2 midnight stay for management of NSTEMI, UTI. Diagnoses Elevated troponin I level R79.89 Atherosclerosis of [place] coronary artery of [place] heart without angina pectoris I25.10 Associated angina: without angina Coronary Disease-Associated Artery/Lesion type: [place] artery [place] vs. 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 not on chronic dialysis, with long-term current use of insulin E11.22; N18.5; Z79.4 Chronic kidney disease stage: stage 5, not on chronic dialysis Diabetes mellitus complication detail: with chronic kidney disease Diabetes mellitus complication status: with kidney complications Diabetes mellitus intermediate designer insulin use: with intermediate use Diabetes mellitus type: type 2 Stage 5 chronic kidney disease on chronic dialysis N18.6; Z99.2 Chronic kidney disease stage: on chronic dialysis Pressure injury of sacral region, unstageable L89.150 Sacral decubitus ulcer, stage IV L89.154 Peripheral neuropathy G62.9 Syncope R55 End-stage renal disease on hemodialysis N18.6; Z99.2 NSTEMI (non-ST elevated myocardial infarction) I21.4
[2023-12-04 18:54] LABS: Glucose Point of Care 98 mg/dL (70-110)
--- NOTE | 2023-12-04 18:54 | USCV_ITS ---
Usman Alvarez Age: 73 Gender: M : 1950 Exam Date: 12/04/2023 19:18 Ordering Phys: Kia Moreno MD Technologist: Richard Flores Exam Location: [facility] – [place] Indication: NSTEMI, syncope during dialysis today. hx CAD s/p stenting. BP: 137 / 70 HR: 97 Rhythm: Sinus Technical Quality: Adequate MEASUREMENTS (Male / Female) Normal Values 2D ECHO LV Diastolic Diameter PLAX 5.3 cm 4.2 - 5.9 / 3.9 - 5.3 cm IVS Diastolic Thickness 1.3 cm 0.6 - 1.0 / 0.6 - 0.9 cm IVS Systolic Thickness 1.5 cm LVPW Diastolic Thickness 1.3 cm 0.6 - 1.0 / 0.6 - 0.9 cm LVPW Systolic Thickness 2.1 cm LVOT Diameter 1.7 cm LV Ejection Fraction 2D Teich 49.4 % LV Ejection Fraction MOD 2C 41.2 % LV Ejection Fraction 2C AL 41.2 % LA Diameter 4.1 cm LA Sys Volume AL 66.9 cm cubed LA Sys Volume Index AL 33.0 cm cubed/m squared Aorta at Sinotubular Diameter 2.8 cm M-MODE LA Ao Ratio MM 1.1 AV Cusp Separation MM 1.5 cm DOPPLER AV Peak Velocity 176.0 cm/s LVOT Peak Velocity 57.0 cm/s AV Area Cont Eq vti 0.8 cm squared AV Area Cont Eq pk 0.7 cm squared MV Peak Velocity 178.0 cm/s MV Area PHT 7.1 cm squared Mitral E to A Ratio 1.7 TV Peak Velocity 374.0 cm/s TR Peak Velocity 397.0 cm/s TR Peak Gradient 63.0 mmHg TV Peak E Velocity 75.0 cm/s Right Atrial Pressure 10.0 mmHg Pulmonary Artery Systolic Pressu 73.0 mmHg PV Peak Velocity 83.0 cm/s FINDINGS Left Ventricle Left ventricle is normal in size. LV systolic function is mild to moderately reduced with EF of 41% . Mild to moderate global hypokinesis. Right Ventricle Normal in size and function Right Atrium Normal in size Left Atrium Dilated Mitral Valve Mitral valve is thickened and calcified. Mild mitral stenosis with a mean gradient of 5.1 mmHg. mild mitral regurgitation. Aortic Valve Aortic valve is thickened and calcified. Mild aortic stenosis with aortic valve area 1.2 cm2. Mean gradient of 7 mmHg Tricuspid Valve Mild tricuspid regurgitation. RVSP is >60mmHg. This is consistent with severe pulmonary hypertension. Pulmonic Valve Not well visualized Pericardium Small pericardial effusion Aorta Normal in size IVC Appears to be normal CONCLUSIONS LV systolic function is mild to moderately reduced with EF of 41%. Mild to moderate global hypokinesis Left atrial dilation Mild mitral stenosis. Mild aortic stenosis. Severe pulmonary hypertension Small pericardial effusion Compared to prior echocardiogram from 06/2023, LV systolic function has decreased slightly. Harry Bryant MD (Electronically Signed) Final Date: 05 Dec 2023 09:58 S
--- NOTE | 2023-12-04 18:55 | PC.NURSE ---
Heparin Gtt with incorrect documentation. ML/HR placed in wrong category. Drip is currently running at 23ml/hr. Verified with REESE Wooten.
[2023-12-04] MEDS: meropenem 1,000 MG in sodium chloride 0.9% (plus) 50 ML 100 MG IV (19:00)
--- NOTE | 2023-12-04 19:07 | PC.NURSE ---
Patient requesting to have bipap tonight as he uses one at home. Informed Dr Moreno and received telephone order to start bipap tonight.
[2023-12-04 19:10] LABS: Lactic Sepsis W/Reflex 0.6 mmol/L (0.5-2.2)
[2023-12-04 19:43] LABS: Troponin 5 2HR Delta -23.4 ABS# (0-10)
[2023-12-04 19:45] LABS: Troponin 5 2HR 593.6 ng/L (0-15)
[2023-12-04 19:51] LABS: Procalcitonin 0.29 ng/mL (0-0.5)
[2023-12-04 20:12] LABS: NT Pro B Type Natriuretic Pept 29538 pg/mL (0-125)
[2023-12-04] MEDS: atorvastatin 40 mg Tablet PO (20:17)
[2023-12-04] MEDS: clopidogrel 75 mg Tablet PO (20:17)
[2023-12-04] MEDS: aspirin 81 mg EC Tablet PO (20:17)
[2023-12-04] MEDS: sodium chloride 0.9% 1,000 ML 75 ML IV (20:17)
[2023-12-04] MEDS: morphine 4 mg/mL SDV 1 mL 2 MG IVP (20:30)
[2023-12-04 20:58] LABS: Troponin 5 6HR Delta -79.1 ng/L (0-12)
[2023-12-04 21:00] LABS: Troponin 5 6HR 537.9 ng/L (0-15)
--- NOTE | 2023-12-04 21:02 | ECG_ITS ---
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 Measurements Intervals [place] Rate: 96 P: 40 MN: 185 QRS: 41 QRSD: 99 T: 87 QT: 356 QTc: 451 Interpretive Statements SINUS RHYTHM POSSIBLE RIGHT VENTRICULAR CONDUCTION DELAY [RSR (QR) IN V1/V2] NONSPECIFIC T-WAVE ABNORMALITY Compared to ECG 12/04/2023 16:24:43 Ventricular premature complex(es) no longer present Incomplete right bundle-branch block no longer present Possible ischemia no longer present T-wave abnormality still present Electronically Signed On 12-05-2023 14:27:45 CDT by Harry Bryant M.D. [id number]
--- NOTE | 2023-12-04 23:35 | PC.NURSE ---
Observed patient to have HR of 208 briefly. Patient reports chest tightness with increased SOB. Informed Dr Pereira and he placed order to start metoprolol as ordered.
[2023-12-04] MEDS: metoprolol tartrate 50 mg Tablet 25 MG PO (23:37)
--- NOTE | 2023-12-04 23:45 | ECG_ITS ---
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 Measurements Intervals [place] Rate: 94 P: 32 TN: 184 QRS: 26 QRSD: 101 T: 82 QT: 333 QTc: 418 Interpretive Statements SINUS RHYTHM INCOMPLETE RIGHT BUNDLE BRANCH BLOCK [90+ ms QRS DURATION, TERMINAL R IN V1/V2, 40+ ms S IN I/aVL/V4/V5/V6] NONSPECIFIC T-WAVE ABNORMALITY Compared to ECG 12/04/2023 21:02:15 Incomplete right bundle-branch block now present T-wave abnormality still present Electronically Signed On 12-05-2023 14:26:36 CDT by Harry Bryant M.D. [id number]
[2023-12-05] VITALS (9 sets, daily range): BP systolic 124–147; BP diastolic 64–78; PULSE 78–99; RESP 0–25; TEMP 36.7–36.8; O2SAT 97–100
[2023-12-05 00:32] LABS: Glucose Point of Care 155 mg/dL (70-110)
[2023-12-05 00:52] LABS: Basophils # 0.1 10^3/uL (0.0-0.1); Basophils % 0.9 %; Eosinophils # 0.3 10^3/uL (0.0-0.8); Eosinophils % 2.6 %; Lymphocytes # 3.7 10^3/uL (0.8-4.8); Lymphocytes % 37.2 %; Mean Corpuscular HGB Conc 29.7 g/dL (30-55); Mean Corpuscular Hemoglobin 29.1 pg (27-33); Mean Corpuscular Volume 98.2 fl (82-101); Mean Platelet Volume 9.1 fL (7.4-10.4); Monocytes # 0.7 10^3/uL (0.2-0.9); Monocytes % 6.7 %; Neutrophils # 5.24 10^3/uL (1.8-7.7); Neutrophils % 52.3 %; Nucleated Red Blood Cells % 0 %; Platelet Count 240 10^3/cmm (157-399); Red Blood Count 3.26 10^6/uL (3.85-5.65); Red Cell Distribution Width 14.6 % (12.1-15.1); White Blood Count 10.01 10^3/uL (3.29-11.43)
[2023-12-05] MEDS: LORazepam 0.5 mg Tablet 0.25 MG PO (01:10)
[2023-12-05 01:11] LABS: Anion Gap 11.5 (5-19); Blood Urea Nitrogen 18 mg/dL (8-23); Calcium 8.2 mg/dL (8.5-10.5); Carbon Dioxide 32 mmol/L (22-29); Chloride 99 mmol/L (98-107); Glucose 139 mg/dL (65-115); Magnesium 1.8 mg/dL (1.7-2.3); Osmolality Calculated 290 mOsm/kg (285-295); Potassium 4.5 mmol/L (3.5-5.1); Sodium 138 mmol/L (136-145)
--- NOTE | 2023-12-05 01:13 | PC.NURSE ---
Patient reports feeling very scared this evening stating, When I close my eyes I feel like I am not going to wake up. Informed Dr Pereira of patient fears. MD placed order for Ativan 0.25mg PO x1 which was given as documented.
[2023-12-05 01:14] LABS: Partial Thromboplastin Time 141.4 SECONDS (23.9-36.7)
[2023-12-05 01:29] LABS: Slide Review Slide Review Perform
[2023-12-05] MEDS: meropenem 1,000 MG in sodium chloride 0.9% (plus) 50 ML 100 MG IV ×2 (02:55→10:56)
[2023-12-05 06:14] LABS: Glucose Point of Care 123 mg/dL (70-110)
[2023-12-05 07:45] LABS: Partial Thromboplastin Time 107.3 SECONDS (23.9-36.7)
--- NOTE | 2023-12-05 08:25 | P.CONIM_ITS ---
Providers/Reason For Consult 2 Consulting Physician/Specialty*: Harry Bryant MD/ Cardiology Reason for Consult*: Troponin elevation/syncope Requesting Physician: Dr Schwartz Attending Physician: Kia Moreno MD Primary Care Provider: Evelin Jenkins DO History of Present Illness History of Present Illness Usman Alvarez is a 73 year old male with past medical history of CAD who presented to hospital with syncope after dialysis. Also found to have UTI. Cardiology was consulted as initial troponin is 617 and has trended down since. Denies active chest pain. In the past has refused interventions. EKG not showing acute ST-T wave changes. Review of Systems 2 Const: Denies: fever(s) or chills Card: Reports: lightheadedness; Denies: chest pain Resp: Denies: dyspnea GI: Denies: abdominal pain : Denies: dysuria, urinary frequency or urinary urgency Musc: Denies: neck pain or back pain Skin/Breast: Denies: rash Medications/Allergies Home Medications Medication Instructions Recorded Confirmed Last Taken Type garlic 1,000 mg capsule 1,000 mg PO DAILY 08/31/19 12/06/23 12/04/23 History aspirin 81 mg tablet,delayed 81 mg PO BEDTIME 02/05/23 12/06/23 12/03/23 History release nitroglycerin 0.4 mg sublingual 0.4 mg sublingual Q5M PRN Chest 02/05/23 12/06/23 Unknown History tablet (Nitrostat) Pain resveratrol 100 mg capsule 100 mg PO BID 02/05/23 12/06/23 12/04/23 History Owls Boot to Right Lower Extremity #1 ea 03/24/23 12/06/23 Unknown Rx Cam Boot to the right #1 ea 03/26/23 12/06/23 Unknown Rx Vitamin B Complex Liquid See Rx Instructions .Route .COMPLEX 04/16/23 12/06/23 12/04/23 History flash glucose scanning reader 07/19/23 12/06/23 Unknown History (FreeStyle Marcial 2 [place]) fenugreek seed 610 mg capsule 610 mg PO DAILY 08/05/23 12/06/23 12/04/23 History insulin lispro 100 unit/mL See Rx Instructions .Route 10/15/23 12/06/23 12/04/23 Rx subcutaneous pen (Humalog KwikPen .COMPLEX #15 mL (U-100) Insulin) flash glucose sensor (FreeStyle #1 ea 11/07/23 12/06/23 Unknown Rx Marcial 2 Sensor kit) clopidogrel 75 mg tablet 75 mg PO BEDTIME #90 tabs 11/18/23 12/06/23 12/03/23 Rx insulin detemir U-100 100 unit/mL 10 unit SUBCUT QAM 12/04/23 12/06/23 12/04/23 History (3 mL) subcutaneous pen (Levemir FlexPen) [place] Liquid Extract 2.5 ml PO BID 12/06/23 12/06/23 Unknown History levothyroxine 175 mcg tablet 175 mcg PO QAM 12/06/23 12/06/23 12/06/23 History metoprolol tartrate 25 mg tablet 25 mg PO Q12H PRN heart rate 12/06/23 12/06/23 Unknown History thiamine HCl (vitamin B1) 500 mg 500 mg PO DAILY 12/06/23 12/06/23 Unknown History tablet Allergies Allergy/AdvReac Type Severity Reaction Status Date / Time Penicillins Allergy Severe Throat Verified 12/06/23 10:26 swells amiodarone Allergy Unknown Verified 12/06/23 10:26 atorvastatin Allergy ADR-Muscle Verified 12/06/23 10:26 Pain azithromycin Allergy ADR/ALGY-Pa Verified 12/06/23 10:26 lpitations ciprofloxacin Allergy hallucinations Verified 12/06/23 10:26 and burning sensation in legs mirtazapine [From Remeron] Allergy ADR-Nightma Verified 12/06/23 10:26 re simvastatin Allergy ADR-Muscle Verified 12/06/23 10:26 Pain Cordarone Allergy Unknown Confusion Uncoded 12/06/23 10:26 Current Medications Generic Name Dose Route Start Last Admin Trade Name Freq PRN Reason Stop Dose Admin Aspirin 81 mg 12/04/23 21:00 12/04/23 20:17 Aspirin 81 Mg Ec Tablet PO 81 mg BEDTIME SAHARA Administration Atorvastatin Calcium 40 mg 12/04/23 21:00 12/04/23 20:17 Atorvastatin 40 Mg Tablet PO 40 mg BEDTIME SAHARA Administration Clopidogrel Bisulfate 75 mg 12/04/23 21:00 12/04/23 20:17 Clopidogrel 75 Mg Tablet PO 75 mg BEDTIME SAHARA Administration Heparin Sodium (Porcine) 0 unit 12/04/23 15:51 12/04/23 16:35 Heparin 5,000 Unit/Ml Inj 1 Ml IV 4,100 unit PRN PRN Administration Heparin weight-base protocol Protocol Heparin Sodium/Sodium Chloride 25,000 unit in 500 mls @ 0 mls/hr 12/04/23 16:00 12/05/23 08:15 Heparin Drip IV 7.96 unit/kg/hr .Q0M SAHARA 13 mls/hr Titration Protocol Per Protocol Sodium Chloride 1,000 mls @ 75 mls/hr 12/04/23 18:35 12/05/23 06:17 Sodium Chloride 0.9% IV 75 mls/hr .[id number] SAHARA Infusion Meropenem 1,000 mg/ Sodium 50 mls @ 100 mls/hr 12/04/23 19:00 12/05/23 03:55 Chloride IV Infused Q8H SAHARA Infusion Protocol Insulin Human Lispro 0 unit 12/04/23 21:00 12/05/23 07:49 Insulin Lispro 100 Unit/1 Ml SUBCUT Not Given WM&BEDTIME SAHARA Protocol Metoprolol Tartrate 25 mg 12/04/23 23:30 12/04/23 23:37 Metoprolol Tartrate 50 Mg Tablet PO 25 mg Q12H SAHARA Administration Morphine Sulfate 2 mg 12/04/23 19:06 12/04/23 20:30 Morphine 4 Mg/Ml Sdv 1 Ml IVP 2 mg Q8H PRN Administration SEVERE PAIN PFSH Acute 2 PFSH: Medical History Peripheral arterial disease Pleural effusion Protein calorie malnutrition Atherosclerosis of coronary artery Sputum culture positive for Pseudomonas and bactrim resistant stenotrophomonas in 08/2023 from [place], prolonged ventilation COVID-19 08/2023 History of pneumothorax 07/2023 iatragenic Hypothyroidism SVT (supraventricular tachycardia) Atrial flutter does not tolerate amiodarone per ESRD on hemodialysis Hopeful that he will be able to come off of dialysis Leg wound, left Aspiration pneumonitis Pulmonary edema Dehiscence of wound 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 Atelectasis, left 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 Hyperlipidemia Diabetic peripheral neuropathy associated with type 2 diabetes mellitus Gangrenous toe CKD (chronic kidney disease) Systolic heart failure Pleural effusion, left Non-healing ulcer Ischemic cardiomyopathy Diabetic ulcer of right foot Kidney stone Amputation toe Diabetes mellitus with peripheral vascular disease HTN (hypertension) Diabetes Surgical History History of thoracentesis 08/2022, 07/2023 right pleural effusion, S/P right coronary artery (RCA) stent placement 08/2023 at [place], 3 JETT to RCA [(2) 2.5 x 38mm, (1) 2.5 x 12 mm] History of cardiac catheterization 08/2023 at [place] History of amputation of toe S/P transmetatarsal amputation of foot all toes right foor Status post amputation of toe of right foot H/O chest tube placement S/P cholecystectomy S/P tonsillectomy S/P cataract extraction Family History Father Cancer LUNG Mother CAD (coronary artery disease) Diabetes Congestive heart failure (CHF) Myocardial infarction Social History Smoking and tobacco/nicotine status: never used tobacco/nicotine Alcohol intake: never Substance/Drug Use: never Household members: spouse Marital status: Current occupational status: retired Vitals/I&O/Wt Last Vital Signs Temp 98.1 F 12/05/23 07:54 Pulse 90 12/05/23 07:54 Resp 23 H 12/05/23 07:54 BP 132/64 12/05/23 07:54 Pulse Ox 100 12/05/23 07:54 O2 Del Method BiPAP 12/05/23 07:54 O2 Flow Rate 3 12/04/23 19:31 FiO2 30 12/05/23 04:00 12/04/23 12/05/23 12/05/23 22:59 06:59 14:59 Intake Total 378.266 / 378.266 713.067 / 1091.333 125.1 / 125.1 Output Total 100 / 100 Balance 278.266 / 278.266 713.067 / 991.333 125.1 / 125.1 Weight last 48 hrs Weight 183 lb 12.8 oz Weight 180 lb Physical Exam 2 Narrative: GENERAL: Patient is alert, awake and oriented x3. [] NECK: No jugular vein distension. [] HEENT: No cyanosis. No icterus. No pallor. [] HEART: Regular S1 and S2. No murmur, rub or gallop. [] LUNGS: Clear to auscultate bilaterally. [] CENTRAL NERVOUS SYSTEM: Grossly nonfocal. [] EXTREMITIES: Lower extremities with 1+ edema bilaterally. Data 12/05/23 00:45 12/05/23 00:45 Micro: Microbiology 12/04/23 19:23 Blood Culture - Preliminary Blood SPECIMEN COLLECTED 12/04/23 17:47 Blood Culture - Preliminary Blood SPECIMEN COLLECTED A&P Assessment and plan (1) Elevated troponin: Plan Patient has presented with syncope and troponin elevation that has since trended down. Can be acute [place] type II versus type I. Patient and family do not want any invasive procedures. Continue guideline directed medical therapy. They also are considering hospice/comfort care. Will sign off. Please call with questions. Consult Attestations 2 Medical Necessity Statement: Care expected to cross 2 midnights. Coding Level of Care Code Acute Code for Chg Fwd Diagnoses Elevated troponin R79.89
[2023-12-05] MEDS: levothyroxine 175 mcg Tablet PO (08:55)
[2023-12-05] MEDS: heparin 5,000 unit/mL INJ 1 mL IV (10:48)
[2023-12-05] MEDS: metoprolol tartrate 50 mg Tablet 25 MG PO (10:56)
[2023-12-05 11:01] LABS: Glucose Point of Care 190 mg/dL (70-110)
[2023-12-05] MEDS: insulin lispro 100 unit/1 mL SUBCUT (11:42)
--- NOTE | 2023-12-05 12:29 | PM.DCS ---
Discharge Providers Date of Admission: 12/04/23 18:31 Date of Discharge: December 05, 2023 Attending Provider at Admission: Kia Moreno MD Attending Provider at Discharge: Kia Moreno MD Primary Care Provider: Evelin Jenkins DO Diagnoses at Discharge Discharge Diagnosis (1) Elevated troponin I level: Status: Acute (2) Atherosclerosis of coronary artery: Status: Chronic Qualifiers: Coronary Disease-Associated Artery/Lesion type: [place] artery [place] vs. transplanted heart: [place] heart Associated angina: without angina Qualified Code(s): I25.10 - Atherosclerotic heart disease of [place] coronary artery without angina pectoris (3) Diabetes: Status: Chronic Qualifiers: Diabetes mellitus type: type 2 Diabetes mellitus snf insulin use: with snf use Diabetes mellitus complication status: with kidney complications Diabetes mellitus complication detail: with chronic kidney disease Chronic kidney disease stage: stage 5, not on chronic dialysis Qualified Code(s): E11.22 - Type 2 diabetes mellitus with diabetic chronic kidney disease; N18.5 - Chronic kidney disease, stage 5; Z79.4 - assembler for 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 (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) use of insulin (4) CKD (chronic kidney disease): Status: Chronic Qualifiers: Chronic kidney disease stage: on chronic dialysis Qualified Code(s): N18.6 - End stage renal disease; Z99.2 - Dependence on renal dialysis (5) Pressure injury of sacral region, unstageable: Status: Acute (6) Sacral decubitus ulcer, stage IV: Status: Acute (7) Peripheral neuropathy: Status: Acute (8) Syncope: Status: Acute (9) End-stage renal disease on hemodialysis: Status: Acute (10) NSTEMI (non-ST elevated myocardial infarction): Status: Resolved Reason for Visit Reason for Visit: syncope episode Discharge Data Studies Completed and Pending Completed Studies During Hospitalization Category Date Time Status XR chest 1V portable [id number] Stat Exams 12/04/23 15:11 Completed CV echo complete* [id number] Routine Ultrasound 12/04/23 18:54 Completed Pending at discharge Category Date Time Status Blood Culture Stat Lab 12/04/23 19:23 Results Sputum Culture and Gram Stain Stat Lab 12/04/23 18:54 Uncollected Urine Culture Stat Lab 12/04/23 15:32 Received Radiology Impressions Chest X-Ray 12/04/23 15:11 IMPRESSION: Opacity lower right chest with nonvisualization of the right diaphragm likely representing combination of pleural effusion with underlying atelectasis and/or consolidation, with suggestion of slight worsening from 12/02/2023 exam. Mild left basilar atelectasis. Laboratory Results WBC 10.01 10^3/uL (3.29-11.43) 12/05/23 00:45 RBC 3.26 10^6/uL (3.85-5.65) L 12/05/23 00:45 Hgb 9.50 g/dL (11.27-16.99) L 12/05/23 00:45 Hct 32.0 % (37-53) L 12/05/23 00:45 MCV 98.2 fl (82-101) 12/05/23 00:45 MCH 29.1 pg (27-33) 12/05/23 00:45 MCHC 29.7 g/dL (30-55) L 12/05/23 00:45 RDW 14.6 % (12.1-15.1) 12/05/23 00:45 Plt Count 240 10^3/cmm (157-399) 12/05/23 00:45 MPV 9.1 fL (7.4-10.4) 12/05/23 00:45 Neut % (Auto) 52.3 % 12/05/23 00:45 Lymph % (Auto) 37.2 % 12/05/23 00:45 [place] % (Auto) 6.7 % 12/05/23 00:45 Eos % (Auto) 2.6 % 12/05/23 00:45 Baso % (Auto) 0.9 % 12/05/23 00:45 Neut # (Auto) 5.24 10^3/uL (1.8-7.7) 12/05/23 00:45 Lymph # (Auto) 3.7 10^3/uL (0.8-4.8) 12/05/23 00:45 [place] # (Auto) 0.7 10^3/uL (0.2-0.9) 12/05/23 00:45 Eos # (Auto) 0.3 10^3/uL (0.0-0.8) 12/05/23 00:45 Baso # (Auto) 0.1 10^3/uL (0.0-0.1) 12/05/23 00:45 Nucleated RBC % (auto) 0 % 12/05/23 00:45 Nucleated RBCs # 0.0 /100WBC 12/05/23 00:45 APTT 107.3 SECONDS (23.9-36.7) H 12/05/23 07:06 Sodium 138 mmol/L (136-145) 12/05/23 00:45 Potassium 4.5 mmol/L (3.5-5.1) 12/05/23 00:45 Chloride 99 mmol/L (98-107) 12/05/23 00:45 Carbon Dioxide 32 mmol/L (22-29) H 12/05/23 00:45 Anion Gap 11.5 (5-19) 12/05/23 00:45 BUN 18 mg/dL (8-23) 12/05/23 00:45 Creatinine 2.0 mg/dL (0.7-1.2) H 12/05/23 00:45 GFR Calculation Not Reportable 12/05/23 00:45 Glucose 139 mg/dL (65-115) H 12/05/23 00:45 POC Glucose 190 mg/dL (70-110) H 12/05/23 10:56 Calculated Osmolality 290 mOsm/kg (285-295) 12/05/23 00:45 Lactic Acid 0.6 mmol/L (0.5-2.2) 12/04/23 17:47 Calcium 8.2 mg/dL (8.5-10.5) L 12/05/23 00:45 Magnesium 1.8 mg/dL (1.7-2.3) 12/05/23 00:45 Total Bilirubin 0.3 mg/dL (0.15-1.2) 12/04/23 14:39 AST 11 U/L (0-40) 12/04/23 14:39 ALT 6 U/L (0-41) 12/04/23 14:39 Alkaline Phosphatase 81 U/L (40-130) 12/04/23 14:39 Troponin T Baseline 617 ng/L (0-15) H* 12/04/23 14:39 Troponin T 120 Minute 593.6 ng/L (0-15) H 12/04/23 17:47 Delta Troponin T -23.4 ABS# (0-10) L 12/04/23 17:47 Troponin T Hi Sens 6Hr 537.9 ng/L (0-15) H 12/04/23 20:09 Troponin T Hi Sens 6Hr Delta -79.1 ng/L (0-12) L 12/04/23 20:09 NT-Pro-B Natriuret Pep 42052 pg/mL (0-125) H 12/04/23 17:47 Total Protein 6.3 g/dL (6.6-8.7) L 12/04/23 14:39 Albumin 3.3 g/dL (3.5-5.2) L 12/04/23 14:39 Globulin 3.0 g/dL (1.3-4.6) 12/04/23 14:39 Procalcitonin 0.29 ng/mL (0-0.5) 12/04/23 17:47 Urine Color Yellow (Yellow) 12/04/23 15:32 Urine Appearance Turbid (CLEAR) A 12/04/23 15:32 Urine pH 6 (5-7) 12/04/23 15:32 Ur Specific [place] 1.010 (1.005-1.030) 12/04/23 15:32 Urine Protein 3+ (Negative) H 12/04/23 15:32 Urine Glucose (UA) Norm (Normal) 12/04/23 15:32 Urine Ketones 1+ (Negative) H 12/04/23 15:32 Urine Blood 3+ (Negative) H 12/04/23 15:32 Urine Nitrate Negative (Negative) 12/04/23 15:32 Urine Bilirubin Neg (Negative) 12/04/23 15:32 Urine Urobilinogen Norm mg/dL (Negative) 12/04/23 15:32 Ur Leukocyte Esterase 2+ (Negative) H 12/04/23 15:32 Urine RBC 15-25 /hpf (0-2) H 12/04/23 15:32 Urine WBC Too numerous to cnt /hpf (0-5) H 12/04/23 15:32 Ur Squamous Epith Cells 0-4 /hpf (0-5) H 12/04/23 15:32 Amorphous Sediment Not Reportable 12/04/23 15:32 Urine Bacteria 1+ /hpf (NONE) H 12/04/23 15:32 Urine Mucus Trace /hpf 12/04/23 15:32 Vitals Last Vital Signs Temp 98.3 F 12/05/23 12:00 Pulse 99 12/05/23 12:00 Resp 21 H 12/05/23 12:00 BP 147/71 12/05/23 12:00 Pulse Ox 97 12/05/23 12:00 O2 Del Method BiPAP 12/05/23 12:00 O2 Flow Rate 3 12/04/23 19:31 FiO2 30 12/05/23 07:22 Discharge Plan Discharge Patient Disposition: Home Condition: Stable Prescriptions: No Action garlic 1,000 mg capsule 1,000 mg PO DAILY (DME) [place] to the right See Rx Instructions .Route .MEDSUPPLY Qty: 1 0RF Rx Instructions: As directed (DME) [place] to Right Lower Extremity See Rx Instructions .Route .MEDSUPPLY Qty: 1 0RF Rx Instructions: As directed [employer] (DME) FreeStyle Marcial 2 Sensor Kit MISCELLANEOUS Qty: 1 2RF Rx Instructions: As directed clopidogrel 75 mg tablet 75 mg PO BEDTIME Qty: 90 0RF levothyroxine 175 mcg capsule 175 mcg PO DAILY Qty: 60 0RF nitroglycerin [Nitrostat] 0.4 mg Tablet, Sublingual 0.4 mg SUBLINGUAL Q5M PRN (Reason: Chest Pain) Rx Instructions: do not exceed 3 doses per episode resveratrol 100 mg Capsule 100 mg PO BID aspirin 81 mg tablet,delayed release (DR/EC) 81 mg PO BEDTIME Vitamin B Complex Liquid See Rx Instructions .ROUTE .COMPLEX Rx Instructions: one dropperful once a day insulin lispro [Humalog KwikPen Insulin] 100 unit/mL insulin pen See Rx Instructions .ROUTE .COMPLEX Qty: 15 0RF Dose Instruction: inject 10 units SUBCUTANEOUSLY THREE TIMES DAILY Rx Instructions: inject, subcut, tid with meals, based on low dose sliding scale (DME) FreeStyle Marcial 2 [place] Misc MISCELLANEOUS fenugreek seed 610 mg Capsule 610 mg PO DAILY metoprolol tartrate 50 mg tablet 25 mg PO Q12H PRN (Reason: Blood Pressure) doxycycline hyclate 100 mg capsule 100 mg PO BID 7 Days Qty: 14 0RF Levemir FlexPen 100 unit/mL (3 mL) insulin pen 10 unit SUBCUT QAM Referrals: Evelin Jenkins DO [Primary Care Provider] - Patient Instructions: Heart Failure (DC), CHF Stoplight, Post Heart Attack Stoplight, Opioid Safety Discharge Attestations Status at Discharge: Cognitive status at discharge: cognitively intact, Behavioral status at discharge: cooperative, Coding Level of Care Code Acute Code for Chg Fwd Diagnoses Elevated troponin I level R79.89 Atherosclerosis of [place] coronary artery of [place] heart without angina pectoris I25.10 Coronary Disease-Associated Artery/Lesion type: [place] artery [place] vs. transplanted heart: [place] heart Associated angina: without angina Type 2 diabetes mellitus with stage 5 chronic kidney disease not on chronic dialysis, with long-term current use of insulin E11.22; N18.5; Z79.4 Diabetes mellitus type: type 2 Diabetes mellitus insurance customer service specialist insulin use: with insurance customer service specialist use Diabetes mellitus complication status: with kidney complications Diabetes mellitus complication detail: with chronic kidney disease Chronic kidney disease stage: stage 5, not on chronic dialysis Stage 5 chronic kidney disease on chronic dialysis N18.6; Z99.2 Chronic kidney disease stage: on chronic dialysis Pressure injury of sacral region, unstageable L89.150 Sacral decubitus ulcer, stage IV L89.154 Peripheral neuropathy G62.9 Syncope R55 End-stage renal disease on hemodialysis N18.6; Z99.2 NSTEMI (non-ST elevated myocardial infarction) I21.4
== END 2023-12-05 13:39 | disposition home health service (06) | DRG 280 ==
LOC: ER 17:21 → CSU 18:32
PROVIDERS: Admitting Provider Internal Medicine; Emergency Provider Family Medicine; PCP Family Medicine; Visit Provider Internal Medicine
DX: I21.4 Non-ST elevation (NSTEMI) myocardial infarction (principal); N18.6 End stage renal disease; N39.0 Urinary tract infection, site not specified; I25.10 Atherosclerotic heart disease of native coronary artery without angina pectoris; Z95.5 Presence of coronary angioplasty implant and graft; E11.22 Type 2 diabetes mellitus with diabetic chronic kidney disease; Z79.4 Long term (current) use of insulin; E11.42 Type 2 diabetes mellitus with diabetic polyneuropathy; E03.9 Hypothyroidism, unspecified; Z99.2 Dependence on renal dialysis; Z79.82 Long term (current) use of aspirin; Z79.02 Long term (current) use of antithrombotics/antiplatelets; Z66 Do not resuscitate; L89.159 Pressure ulcer of sacral region, unspecified stage
CPT/HCPCS: 36415; 36416; 71045; 80048; 80053; 81001; 81015; 82962; 83605; 83735; 83880; 84145; 84484; 85025; 85730; 87040; 87086; 87106; 93005; 93306; 94660; 96365; 96367; 96372; 96375; 96376; 97110; 97161; 99285; J1644; J1815; J2185; J2270; J7030

== ENCOUNTER 2023-12-06 10:16 | Inpatient (IN) | payer MEDICARE, SELFPAY ==
[2023-12-06] VITALS (43 sets, daily range): BP systolic 106–149; BP diastolic 47–119; PULSE 87–105; RESP 12–37; TEMP 36.1–37.3; O2SAT 79–100
--- NOTE | 2023-12-06 10:23 | XRR_ITS ---
PROCEDURE INFORMATION: Exam: XR Chest Exam date and time: 12/06/2023 10:29 AM Age: 73 years old Clinical indication: Other: AMS; Additional info: Shortness of breath TECHNIQUE: Imaging protocol: Radiologic exam of the chest. Views: 1 view. COMPARISON: CR XR chest 1V portable [id number] 12/04/2023 3:22 PM FINDINGS: Tubes, catheters and devices: There is a right internal jugular tunneled central venous dialysis catheter present with its tip projected over the cavoatrial junction. Lungs: There is opacity at the right lung base likely representing effusion and/or parenchymal disease. Hazy opacity is noted at the left lung base. Pleural spaces: No pneumothorax. Heart/Mediastinum: Unremarkable. No cardiomegaly. Bones/joints: Unremarkable. XR/XR chest 1V [id number] IMPRESSION: No significant change from the prior study.
--- NOTE | 2023-12-06 10:23 | CTR_ITS ---
PROCEDURE INFORMATION: Exam: CT Head Without Contrast Exam date and time: 12/06/2023 10:33 AM Age: 73 years old Clinical indication: Altered mental status/memory loss; Additional info: Encephalopathy, altered mental status TECHNIQUE: Imaging protocol: Computed tomography of the head without contrast. Radiation optimization: All CT scans at this facility use at least one of these dose optimization techniques: automated exposure control; mA and/or kV adjustment per patient size (includes targeted exams where dose is matched to clinical indication); or iterative reconstruction. COMPARISON: CT head wo con* [id number] 08/05/2023 7:42 PM RADIATION DOSE METRICS: Total DLP (mGy-cm): 1211.05 FINDINGS: Brain: There is no mass effect, midline shift, acute hemorrhage, extra axial fluid collection, or acute lobar infarct. Scattered hemispheric white matter disease is noted, likely representing chronic white matter disease. Cerebral ventricles: No ventriculomegaly. Paranasal sinuses: Visualized sinuses are unremarkable. No fluid levels. Mastoid air cells: Visualized mastoid air cells are well aerated. Bones: Unremarkable. No acute fracture. Soft tissues: Unremarkable. CT/CT head wo con* [id number] IMPRESSION: No acute intracranial process.
--- NOTE | 2023-12-06 10:26 | ED_ITS ---
HPI - Altered Mental Status 2 General: Chief Complaint: Altered Mental Status Stated Complaint: AMS Time Seen by Provider: 12/06/23 10:18 History of Present Illness: 73-year-old man with a history of end-st age renal disease on dialysis Friday, coronary artery disease, diabetes, hypertension who was discharged from the hospital yesterday after being admitted after having a syncopal episode and according to family he was treated for UTI and a wound with doxycycline. She says he went home and was active and was doing well and then about 4 PM put his BiPAP on which she always has to wear when he sleeps and he slept from 4 until this morning when they went to go to dialysis. She says he was kind of groggy when they left the house and thymic at the dialysis he would hardly wake up. She was thinking maybe he was having extremely bad anxiety. And that he become locked in. She says since he has become so ill he has had very bad anxiety. No focal motor deficits. No fever. On my exam he is extremely somnolent. Review of Systems 2 General: Reports: ROS unobtainable due to medical condition and ROS unobtainable due to mental status PFS ED 2 PFSH: Medical History Peripheral arterial disease Pleural effusion Protein calorie malnutrition Atherosclerosis of coronary artery Sputum culture positive for Pseudomonas and bactrim resistant stenotrophomonas in 08/2023 from [place], prolonged ventilation COVID-19 08/2023 History of pneumothorax 07/2023 iatragenic Hypothyroidism SVT (supraventricular tachycardia) Atrial flutter does not tolerate amiodarone per ESRD on hemodialysis Hopeful that he will be able to come off of dialysis Leg wound, left Aspiration pneumonitis Pulmonary edema Dehiscence of wound 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 Atelectasis, left 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 Hyperlipidemia Diabetic peripheral neuropathy associated with type 2 diabetes mellitus Gangrenous toe CKD (chronic kidney disease) Systolic heart failure Pleural effusion, left Non-healing ulcer Ischemic cardiomyopathy Diabetic ulcer of right foot Kidney stone Amputation toe Diabetes mellitus with peripheral vascular disease HTN (hypertension) Diabetes Surgical History History of thoracentesis 08/2022, 07/2023 right pleural effusion, S/P right coronary artery (RCA) stent placement 08/2023 at [place], 3 JETT to RCA [(2) 2.5 x 38mm, (1) 2.5 x 12 mm] History of cardiac catheterization 08/2023 at [place] History of amputation of toe S/P transmetatarsal amputation of foot all toes right foor Status post amputation of toe of right foot H/O chest tube placement S/P cholecystectomy S/P tonsillectomy S/P cataract extraction Family History Father Cancer LUNG Mother CAD (coronary artery disease) Diabetes Congestive heart failure (CHF) Myocardial infarction Social History Smoking and tobacco/nicotine status: never used tobacco/nicotine Alcohol intake: never Substance/Drug Use: never Household members: spouse Marital status: Current occupational status: retired Physical Exam 2 Narrative: General: Patient is very somnolent, appears chronically ill. Skin: Warm, dry. Head: Normocephalic, atraumatic. Neck: Supple, trachea midline. Eye: Extraocular movements are intact. Ears, nose, mouth and throat: Dry oral mucosa Cardiovascular: Regular, Normal peripheral perfusion. Respiratory: Lungs are clear to auscultation, respirations are non-labored, breath sounds are equal, Symmetrical chest wall expansion. Gastrointestinal: Soft, Nontender, Non distended, Normal bowel sounds. Musculoskeletal: Normal ROM, no deformity. Neurological: Somnolent, no obvious focal motor deficits.. Psychiatric: Unable to assess Course 2 Vital Signs: Vital signs: Vital Signs Temperature 97.6 F 12/06/23 10:21 Pulse Rate 98 12/06/23 13:15 Respiratory Rate 20 H 12/06/23 13:15 Blood Pressure 127/59 12/06/23 12:57 Pulse Oximetry 95 12/06/23 13:20 Oxygen Delivery Me thod BiPAP 12/06/23 13:15 Oxygen Flow Rate 5 12/06/23 10:21 Fraction of Inspir ed Oxygen 30 12/06/23 13:20 MDM - Altered Mental Status Medical Decision Making Medical decision making: Differential diagnosis including but not limited to and based on the above HPI, review of systems and physical exam: With patient's increased somnolence and having been on a BiPAP all night first concern would be hypercapnic respiratory failure. Also have concern for infection such as a UTI or pneumonia. However he is already on antibiotics. Orders placed to evaluate differential diagnosis based on the above differential, HPI and physical exam CT head: No acute intracranial process. no intracranial hemorrhage, no evidence of infarct. no evidence of acute fracture.This was reviewed and interpreted by myself the ER physician. Chest x-ray: N right-sided dialysis catheter is in place. Large right pleural effusion. There are some atelectasis. This appears slightly larger than previous.. This was reviewed and interpreted by myself the ER physician. Lab Review: Laboratory results were reviewed and interpreted by myself the emergency room physician. Patient has an increased white count at 19,000. Lactate is only 1.6. Hemoglobin is 10.6. BUN and creatinine are 29 and 2.8. Potassium is 5.3. Patient did not get dialysis this morning. EKG: Time 1045 rate 103. Sinus tachycardia. Nonspecific ST changes, no ectopy, normal [place] & QRS intervals, This was reviewed and interpreted by myself the ER physician at 1048. I reviewed the patient's medical record. Reexamination: Patient remains stable on a BiPAP. I discussed intubation with the and she says she would like to first try BiPAP and see if he does not improve. She is concerned that there must be something wrong with his BiPAP at home. Assessment and plan: Chronic hypercapnic respiratory failure Metabolic encephalopathy End-stage renal disease on dialysis Insulin-dependent diabetes -Placing BiPAP for now. wants to try this and patient is tolerating although he is very somnolent. -I discussed the patient with the hospitalist on-call who is admitting the patient. - Discussed findings and plan with patient. Answered any questions. - All laboratory values were reviewed and interpreted personally by myself, the ER physician - All imaging was reviewed and interpreted personally by myself, the ER physician. - Evaluation and treatment of this problem were appropriate in the emergency setting -I spent a total of >35 minutes of critical care time managing the patient, independent of any other practitioner. -The time involved in the performance of separately reportable procedures was not counted towards critical care time. Lab Data 12/06/23 10:52 12/06/23 10:52 Radiology Impressions Chest X-Ray 12/06/23 10:23 IMPRESSION: No significant change from the prior study. Head CT 12/06/23 10:23 IMPRESSION: No acute intracranial process. Laboratory Results WBC 19.08 10^3/uL (3.29-11.43) H 12/06/23 10:52 RBC 3.63 10^6/uL (3.85-5.65) L 12/06/23 10:52 Hgb 10.60 g/dL (11.27-16.99) L 12/06/23 10:52 Hct 36.5 % (37-53) L 12/06/23 10:52 MCV 100.6 fl (82-101) 12/06/23 10:52 MCH 29.2 pg (27-33) 12/06/23 10:52 MCHC 29.0 g/dL (30-55) L 12/06/23 10:52 RDW 14.2 % (12.1-15.1) 12/06/23 10:52 Plt Count 358 10^3/cmm (157-399) 12/06/23 10:52 MPV 9.4 fL (7.4-10.4) 12/06/23 10:52 Neut % (Auto) 51.6 % 12/06/23 10:52 Lymph % (Auto) 41.2 % 12/06/23 10:52 [place] % (Auto) 4.5 % 12/06/23 10:52 Eos % (Auto) 1.3 % 12/06/23 10:52 Baso % (Auto) 0.9 % 12/06/23 10:52 Neut # (Auto) 9.86 10^3/uL (1.8-7.7) H 12/06/23 10:52 Lymph # (Auto) 7.9 10^3/uL (0.8-4.8) H 12/06/23 10:52 [place] # (Auto) 0.9 10^3/uL (0.2-0.9) 12/06/23 10:52 Eos # (Auto) 0.2 10^3/uL (0.0-0.8) 12/06/23 10:52 Baso # (Auto) 0.2 10^3/uL (0.0-0.1) H 12/06/23 10:52 Nucleated RBC % (auto) 0 % 12/06/23 10:52 Nucleated RBCs # 0.0 /100WBC 12/06/23 10:52 Specimen Type Arterial 12/06/23 12:55 Sample Site Brachial, right 12/06/23 12:55 ABG pH 7.03 (7.35-7.45) L* 12/06/23 12:55 ABG pCO2 111.0 mmHg (35-45) H* 12/06/23 12:55 ABG pO2 111.0 mmHg (80.0-100.0) H 12/06/23 12:55 ABG PO2/FiO2 Ratio 0 12/06/23 12:55 ABG HCO3 29.3 mmol/L (22-26) H 12/06/23 12:55 ABG O2 Saturation 97.4 12/06/23 12:55 ABG Base Excess -3.2 mmol/L (-2.0-2.0) L 12/06/23 12:55 Peter Test N/a 12/06/23 12:55 A-a O2 Gradient 5.6 mmHg (5-10) 12/06/23 12:55 Hematocrit 31.2 % (42-52) L 12/06/23 12:55 Hgb O2 Saturation 95.1 % (95-100) 12/06/23 12:55 Carboxyhemoglobin 1.7 %THgb (0.4-20.1) 12/06/23 12:55 Methemoglobin 0.7 % (0.4-1.5) 12/06/23 12:55 Total Hemoglobin 10.2 g/dL (14-18) L 12/06/23 12:55 Sodium 139.0 mmol/L (131-143) 12/06/23 12:55 Potassium 5.5 mmol/L (3.5-5.0) H 12/06/23 12:55 Glucose 186.0 mg/dL (70-115) H 12/06/23 12:55 Ionized Calcium 1.3 mmol/L (1.1-1.4) 12/06/23 12:55 O2 Delivery Device Nc 12/06/23 12:55 O2 Liters/Min 5.0 % 12/06/23 12:55 FiO2 40.0 % 12/06/23 12:55 Distributor Sales Manager ID Amh 12/06/23 12:55 Sodium 135 mmol/L (136-145) L 12/06/23 10:52 Potassium 5.3 mmol/L (3.5-5.1) H 12/06/23 10:52 Chloride 94 mmol/L (98-107) L 12/06/23 10:52 Carbon Dioxide 26 mmol/L (22-29) 12/06/23 10:52 Anion Gap 20.3 (5-19) H 12/06/23 10:52 BUN 29 mg/dL (8-23) H 12/06/23 10:52 Creatinine 2.8 mg/dL (0.7-1.2) H 12/06/23 10:52 GFR Calculation Not Reportable 12/06/23 10:52 Glucose 163 mg/dL (65-115) H 12/06/23 10:52 Calculated Osmolality 289 mOsm/kg (285-295) 12/06/23 10:52 Lactic Acid 1.6 mmol/L (0.5-2.2) 12/06/23 10:52 Calcium 9.1 mg/dL (8.5-10.5) 12/06/23 10:52 Total Bilirubin 0.3 mg/dL (0.15-1.2) 12/06/23 10:52 AST 13 U/L (0-40) 12/06/23 10:52 ALT 7 U/L (0-41) 12/06/23 10:52 Alkaline Phosphatase 92 U/L (40-130) 12/06/23 10:52 Ammonia 90 umol/L (16-60) H 12/06/23 10:52 Troponin T Baseline 476 ng/L (0-15) H* 12/06/23 10:52 Troponin T 120 Minute 446.5 ng/L (0-15) H 12/06/23 13:20 Delta Troponin T -29.5 ABS# (0-10) L 12/06/23 13:20 Total Protein 6.2 g/dL (6.6-8.7) L 12/06/23 10:52 Albumin 4.0 g/dL (3.5-5.2) 12/06/23 10:52 Globulin 2.2 g/dL (1.3-4.6) 12/06/23 10:52 All radiology interpretation(s) finalized by discharge Discharge Plan Discharge Patient Disposition: Admitted As Inpatient Clinical Impression: Acute and chronic respiratory failure with hypercapnia, Encephalopathy acute, End stage renal disease on dialysis, Insulin dependent diabetes mellitus Condition: Stable Coding Level of Care Code ED Foster Care Therapist for Abdirizak Zhou
--- NOTE | 2023-12-06 10:45 | ECG_ITS ---
[facility] Test Date: 2023-12-06 Pat Name: Usman Alvarez Department: Room: Gender: Male Cms Expert: : 1950 Requested By: Daria Viveros Order Number: [id number] Diandra MD: Harry Bryant M.D. Measurements Intervals [place] Rate: 103 P: 31 MO: 141 QRS: 41 QRSD: 110 T: -7 QT: 349 QTc: 458 Interpretive Statements SINUS TACHYCARDIA POSSIBLE RIGHT VENTRICULAR CONDUCTION DELAY [RSR (QR) IN V1/V2] ST DEVIATION AND MODERATE T-WAVE ABNORMALITY, CONSIDER ANTERIOR ISCHEMIA [-0.1+ mV T-WAVE IN V3/V4] Compared to ECG 12/04/2023 23:45:18 Possible ischemia now present Sinus rhythm no longer present Incomplete right bundle-branch block no longer present T-wave abnormality still present Electronically Signed On 12-07-2023 12:13:22 CDT by Harry Bryant M.D. [id number]
[2023-12-06 10:58] LABS: Basophils # 0.2 10^3/uL (0.0-0.1); Basophils % 0.9 %; Eosinophils # 0.2 10^3/uL (0.0-0.8); Eosinophils % 1.3 %; Hematocrit 36.5 % (37-53); Lymphocytes # 7.9 10^3/uL (0.8-4.8); Lymphocytes % 41.2 %; Mean Corpuscular Hemoglobin 29.2 pg (27-33); Mean Corpuscular Volume 100.6 fl (82-101); Mean Platelet Volume 9.4 fL (7.4-10.4); Monocytes # 0.9 10^3/uL (0.2-0.9); Monocytes % 4.5 %; Neutrophils # 9.86 10^3/uL (1.8-7.7); Neutrophils % 51.6 %; Nucleated Red Blood Cells % 0 %; Platelet Count 358 10^3/cmm (157-399); Red Blood Count 3.63 10^6/uL (3.85-5.65); Red Cell Distribution Width 14.2 % (12.1-15.1); White Blood Count 19.08 10^3/uL (3.29-11.43)
[2023-12-06 11:18] LABS: Alanine Aminotransferase 7 U/L (0-41); Alkaline Phosphatase 92 U/L (40-130); Anion Gap 20.3 (5-19); Aspartate Amino Transferase 13 U/L (0-40); Blood Urea Nitrogen 29 mg/dL (8-23); Calcium 9.1 mg/dL (8.5-10.5); Carbon Dioxide 26 mmol/L (22-29); Chloride 94 mmol/L (98-107); Globulin 2.2 g/dL (1.3-4.6); Glucose 163 mg/dL (65-115); Osmolality Calculated 289 mOsm/kg (285-295); Potassium 5.3 mmol/L (3.5-5.1); Sodium 135 mmol/L (136-145); Total Bilirubin 0.3 mg/dL (0.15-1.2); Total Protein 6.2 g/dL (6.6-8.7)
[2023-12-06 11:19] LABS: Lactic Sepsis W/Reflex 1.6 mmol/L (0.5-2.2)
[2023-12-06 11:22] LABS: Ammonia 90 umol/L (16-60)
[2023-12-06 11:27] LABS: Creatinine Clr Calc Pharmacy 26.6413
[2023-12-06 11:35] LABS: Troponin(5th) Baseline 476 ng/L (0-15)
[2023-12-06 11:45] LABS: Slide Review Slide Review Perform
--- NOTE | 2023-12-06 12:05 | PC.PHAR ---
pts verified pts medications-states the pt was just here and discharged and states no medications changed
--- NOTE | 2023-12-06 12:30 | PC.NURSE ---
attempted to staight cath patient for urine sample, unable to get urine return. Dr. Huerta notified.
[2023-12-06 13:07] LABS: ABG PH Result 7.03 (7.35-7.45); Alveolar-Arterial Oxygen Gradi 5.6 mmHg (5-10); Arterial Blood Gas Hematocrit 31.2 % (42-52); Base Excess ABG -3.2 mmol/L (-2.0-2.0); Blood Gas Operator Identificat AMH; Blood Gas Sample Site Brachial, right; Blood Gas Sample Type Arterial; Carboxyhemoglobin 1.7 %THgb (0.4-20.1); HCO3 ABG 29.3 mmol/L (22-26); HGB O2 Sat 95.1 % (95-100); Ionized Calcium Level - ABG 1.3 mmol/L (1.1-1.4); Methemoglobin 0.7 % (0.4-1.5); Oxygen Device NC; Oxygen Saturation ABG 97.4; PO2 FiO2 Ratio Arterial Blood 0; Potassium Level - ABG 5.5 mmol/L (3.5-5.0); Total Hemoglobin 10.2 g/dL (14-18)
[2023-12-06 13:56] LABS: Troponin 5 2HR 446.5 ng/L (0-15); Troponin 5 2HR Delta -29.5 ABS# (0-10)
--- NOTE | 2023-12-06 14:14 | P.HP_ITS ---
Providers/Chief Complaint 2 Primary Care Provider: Evelin Jenkins DO Chief Complaint: AMS History of Present Illness Usman Alvarez is a 73 year old male Usman Alvarez is a 73 year old male With past medical history of recurrent pleural effusion, end-stage renal disease on hemodialysis Friday, CAD status post 3 stents, diabetes mellitus insulin-dependent, sacral decubitus ulcer, recent NSTEMI, hypothyroidism, recurrent syncope as per presented to the hospital today for complaint that patient was groggy and hard to wake up. He normally wears BiPAP at home when he sleeps. She says he slept from 4 until this morning when they went to dialysis. She thought he was having anxiety however he was unable to respond. He is extremely somnolent. He was sent to the hospital. ABG was obtained which showed a pH of 7.03 with CO2 of 111. Patient was placed on BiPAP immediately. Possibility that patient's BiPAP machine was not working properly at home. Checks x-ray shows large right pleural effusion with some atelectasis. WBC 19,000, lactate 1.6, hemoglobin 10.6. Potassium 5.3. Patient did not get dialysis today. EKG shows sinus tachycardia. Patient's says that she would not want to intubate him at this time. At previous admission she told me that he was DNR/DNI including the patient who told me he was DNR/DNI. Patient will be admitted to ICU at this time. We will continue BiPAP and repeat a gas. in agreement. Medications/Allergies Home Medications Medication Instructions Recorded Confirmed Last Taken Type garlic 1,000 mg capsule 1,000 mg PO DAILY 08/31/19 12/06/23 12/04/23 History aspirin 81 mg tablet,delayed 81 mg PO BEDTIME 02/05/23 12/06/23 12/03/23 History release nitroglycerin 0.4 mg sublingual 0.4 mg sublingual Q5M PRN Chest 02/05/23 12/06/23 Unknown History tablet (Nitrostat) Pain resveratrol 100 mg capsule 100 mg PO BID 02/05/23 12/06/23 12/04/23 History Owls Boot to Right Lower Extremity #1 ea 03/24/23 12/06/23 Unknown Rx Cam Boot to the right #1 ea 03/26/23 12/06/23 Unknown Rx Vitamin B Complex Liquid See Rx Instructions .Route .COMPLEX 04/16/23 12/06/23 12/04/23 History flash glucose scanning reader 07/19/23 12/06/23 Unknown History (FreeStyle Marcila 2 Bangs) fenugreek seed 610 mg capsule 610 mg PO DAILY 08/05/23 12/06/23 12/04/23 History insulin lispro 100 unit/mL See Rx Instructions .Route 10/15/23 12/06/23 12/04/23 Rx subcutaneous pen (Humalog KwikPen .COMPLEX #15 mL (U-100) Insulin) flash glucose sensor (FreeStyle #1 ea 11/07/23 12/06/23 Unknown Rx Marcial 2 Sensor kit) clopidogrel 75 mg tablet 75 mg PO BEDTIME #90 tabs 11/18/23 12/06/23 12/03/23 Rx doxycycline hyclate 100 mg capsule 100 mg PO BID 7 days #14 caps 12/02/23 12/06/23 12/06/23 Rx insulin detemir U-100 100 unit/mL 10 unit SUBCUT QAM 12/04/23 12/06/23 12/04/23 History (3 mL) subcutaneous pen (Levemir FlexPen) Ranson Vidal Liquid Extract 2.5 ml PO BID 12/06/23 12/06/23 Unknown History levothyroxine 175 mcg tablet 175 mcg PO QAM 12/06/23 12/06/23 12/06/23 History metoprolol tartrate 25 mg tablet 25 mg PO Q12H PRN heart rate 12/06/23 12/06/23 Unknown History thiamine HCl (vitamin B1) 500 mg 500 mg PO DAILY 12/06/23 12/06/23 Unknown History tablet Allergies Allergy/AdvReac Type Severity Reaction Status Date / Time Penicillins Allergy Severe Throat Verified 12/06/23 10:26 swells amiodarone Allergy Unknown Verified 12/06/23 10:26 atorvastatin Allergy ADR-Muscle Verified 12/06/23 10:26 Pain azithromycin Allergy ADR/ALGY-Pa Verified 12/06/23 10:26 lpitations ciprofloxacin Allergy hallucinations Verified 12/06/23 10:26 and burning sensation in legs mirtazapine [From Remeron] Allergy ADR-Nightma Verified 12/06/23 10:26 re simvastatin Allergy ADR-Muscle Verified 12/06/23 10:26 Pain Cordarone Allergy Unknown Confusion Uncoded 12/06/23 10:26 PFSH Acute 2 PFSH: Medical History Peripheral arterial disease Pleural effusion Protein calorie malnutrition Atherosclerosis of coronary artery Sputum culture positive for Pseudomonas and bactrim resistant stenotrophomonas in 08/2023 from [facility], prolonged ventilation COVID-19 08/2023 History of pneumothorax 07/2023 iatragenic Hypothyroidism SVT (supraventricular tachycardia) Atrial flutter does not tolerate amiodarone per ESRD on hemodialysis Hopeful that he will be able to come off of dialysis Leg wound, left Aspiration pneumonitis Pulmonary edema Dehiscence of wound 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 Atelectasis, left 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 Hyperlipidemia Diabetic peripheral neuropathy associated with type 2 diabetes mellitus Gangrenous toe CKD (chronic kidney disease) Systolic heart failure Pleural effusion, left Non-healing ulcer Ischemic cardiomyopathy Diabetic ulcer of right foot Kidney stone Amputation toe Diabetes mellitus with peripheral vascular disease HTN (hypertension) Diabetes Surgical History History of thoracentesis 08/2022, 07/2023 right pleural effusion, S/P right coronary artery (RCA) stent placement 08/2023 at [facility], 3 JETT to RCA [(2) 2.5 x 38mm, (1) 2.5 x 12 mm] History of cardiac catheterization 08/2023 at [facility] History of amputation of toe S/P transmetatarsal amputation of foot all toes right foor Status post amputation of toe of right foot H/O chest tube placement S/P cholecystectomy S/P tonsillectomy S/P cataract extraction Family History Father Cancer LUNG Mother CAD (coronary artery disease) Diabetes Congestive heart failure (CHF) Myocardial infarction Social History Smoking and tobacco/nicotine status: never used tobacco/nicotine Alcohol intake: never Substance/Drug Use: never Household members: spouse Marital status: Current occupational status: retired Vitals/I&O/Wt Last Vital Signs Temp 97.6 F 12/06/23 10:21 Pulse 98 12/06/23 13:15 Resp 20 H 12/06/23 13:15 BP 127/59 12/06/23 12:57 Pulse Ox 95 12/06/23 13:20 O2 Del Method BiPAP 12/06/23 13:15 O2 Flow Rate 5 12/06/23 10:21 FiO2 30 12/06/23 13:20 Weight last 48 hrs Weight 81.647 kg Physical Exam 2 Narrative: General exam demonstrates a white male, chronically ill-appearing. Not very responsive, currently on BiPAP. Cardiovascular slightly tachycardic regular. Dialysis catheter noted right chest Lungs diminished breath sounds bilaterally right greater than left. No crackles. No wheezes Abdomen is soft, positive bowel sounds. No obvious organomegaly Extremities 2+ edema bilaterally. No cyanosis or clubbing. Neuro: No focal deficits Data 12/06/23 10:52 12/06/23 10:52 Micro: Microbiology 12/06/23 11:27 Blood Culture - Preliminary Blood SPECIMEN COLLECTED 12/06/23 11:25 Blood Culture - Preliminary Blood SPECIMEN COLLECTED A&P Assessment and plan (1) Elevated troponin I level: (2) Atherosclerosis of coronary artery: Qualifiers: Associated angina: without angina Coronary Disease-Associated Artery/Lesion type: [place] artery [place] vs. transplanted heart: [place] heart Qualified Code(s): I25.10 - Atherosclerotic heart disease of [place] coronary artery without angina pectoris (3) Diabetes: Qualifiers: Chronic kidney disease stage: stage 5, not on chronic dialysis Diabetes mellitus complication detail: with chronic kidney disease Diabetes mellitus complication status: with kidney complications Diabetes mellitus salvage determiner insulin use: with senior care use Diabetes mellitus type: type 2 Qualified Code(s): E11.22 - Type 2 diabetes mellitus with diabetic chronic kidney disease; N18.5 - Chronic kidney disease, stage 5; Z79.4 - shelter (current) use of insulin (4) CKD (chronic kidney disease): Qualifiers: Chronic kidney disease stage: on chronic dialysis Qualified Code(s): N 18.6 - End stage renal disease; Z99.2 - Dependence on renal dialysis (5) Pressure injury of sacral region, unstageable: (6) Sacral decubitus ulcer, stage IV: (7) Peripheral neuropathy: (8) Syncope: (9) End-stage renal disease on hemodialysis: (10) NSTEMI (non-ST elevated myocardial infarction): Plan # Acute hypercarbic on chronic hypercarbic respiratory failure #Metabolic encephalopathy #CAD status post PCI x 4 stents #Syncope after dialysis #Elevated troponin, NSTEMI #Sacral decubitus ulcer #Recurrent pleural effusion with recent thoracentesis #Diabetes mellitus, insulin-dependent #Hypothyroidism ? Continue aspirin, Plavix, metoprolol tartrate, levothyroxine ? Elevated troponin NSTEMI most likely secondary to renal disease. Type II demand ischemia ? Continue treatment for UTI as per previous admission. Will place on meropenem while in the hospital and discharged on doxycycline once able ? Repeat chest x-ray today shows large right pleural effusion. Patient unable to get dialyzed today. ? Will consult nephrology for dialysis. ? Will order thoracentesis for therapeutic purposes. Pulmonology coverage not available over the weekend. Patient may need permanent drain. Will discuss with general surgery if they are able to place 1. Otherwise pulm may be available Friday versus Friday. ? Palliative care/hospice was suggested to baseline at previous discharge. ? Continue on BiPAP for now. Repeat a gas in another hour. First repeated gas does show mild improvement. ? Patient's is not interested in intubation at this time. We will try to manage conservatively with BiPAP. -Patient to follow-up with general surgery for sacral decub ulcer. He had debridement at previous admission and was discharged yesterday. -Had a long discussion with patient's and explained to her patient's condition. I gave her [address] keep on BiPAP and watch patient and hope that he improves and what ever happens happens or the second option is we intubate the patient and potentially transfer to another facility where critical care mailroom personnel will be available. There he can also have the drain placed for pleural effusion as well. However did explain to her that we are unsure if we will be able to extubate the patient successfully. And once extubated he will most likely need rehab. Patient has been in the hospital quite frequently in the last few weeks and he does have poor quality of life at this time. Patient himself does not like to go to dialysis secondary to weakness. She states that she does not want his ribs to be broken and does not want him resuscitated via CPR. She said in terms of intubation she would like to hold off for now and watch and wait to see what happens. She also understands if she decides to intubate at a later time we may have taken a step back and patient might not improve. At this point the patient's venous pH is 7.08/26.3. She stated that she would prefer to wait on the intubation at this time and she does not want to put him through more procedures. She does understand that it will be Friday before we can do a thoracentesis. We currently do not have a physician with that expertise. Currently patient is too unstable for transferring to another facility and if we transfer he will need to be intubated. She understands the above and is okay with waiting till Friday for thoracentesis. DNR/DNI ? DVT prophylaxis: Heparin SQ twice daily Patient does carry a risk of multiple admissions secondary to chronic issues. Attestations 2 Medical Necessity Statement*: Greater than 2 midnight stay for management of acute hypercapnic respiratory failure requiring BiPAP. pH 7.03. Critical Care Time: The high probability of a clinically significant, sudden or life threatening deterioration of the patient's [] system(s) required my full and direct attention, intervention and personal management. The critical care time is as shown. This time is in addition to time spent performing any reported procedures but includes the following: [x] Data and vital sign review and interpretation [x] Patient assessment, examination and intervention [x] Documentation [x] Medication orders and management Critical Care Time (min): 60 Coding Level of Care Code Acute Code for [facility] Diagnoses Elevated troponin I level R79.89 Atherosclerosis of [place] coronary artery of [place] heart without angina pectoris I25.10 Associated angina: without angina Coronary Disease-Associated Artery/Lesion type: [place] artery [place] vs. transplanted heart: [place] heart Type 2 diabetes mellitus with stage 5 chronic kidney disease not on chronic dialysis, with long-term current use of insulin E11.22; N18.5; Z79.4 Chronic kidney disease stage: stage 5, not on chronic dialysis Diabetes mellitus complication detail: with chronic kidney disease Diabetes mellitus complication status: with kidney complications Diabetes mellitus salvage determiner insulin use: with salvage determiner use Diabetes mellitus type: type 2 Stage 5 chronic kidney disease on chronic dialysis N18.6; Z99.2 Chronic kidney disease stage: on chronic dialysis Pressure injury of sacral region, unstageable L89.150 Sacral decubitus ulcer, stage IV L89.154 Peripheral neuropathy G62.9 Syncope R55 End-stage renal disease on hemodialysis N18.6; Z99.2 NSTEMI (non-ST elevated myocardial infarction) I21.4
[2023-12-06 14:33] LABS: Arterial Blood Gas Hematocrit 30.3 % (42-52); Base Excess ABG -3.1 mmol/L (-2.0-2.0); Blood Gas Operator Identificat AMH; Blood Gas Sample Site Brachial, left; Blood Gas Sample Type Arterial; Carboxyhemoglobin 1.8 %THgb (0.4-20.1); HCO3 ABG 28.3 mmol/L (22-26); HGB O2 Sat 88.6 % (95-100); Ionized Calcium Level - ABG 1.3 mmol/L (1.1-1.4); Methemoglobin 0.8 % (0.4-1.5); Oxygen Device BIPAP; PO2 ABG 68.4 mmHg (80.0-100.0); PO2 FiO2 Ratio Arterial Blood 0; Potassium Level - ABG 5.6 mmol/L (3.5-5.0); Total Hemoglobin 9.9 g/dL (14-18)
[2023-12-06 14:34] LABS: ABG PCO2 96.3 mmHg (35-45); ABG PH Result 7.08 (7.35-7.45)
[2023-12-06] MEDS: meropenem 1,000 MG in sodium chloride 0.9% (plus) 50 ML 100 MG IV ×2 (15:17→21:21)
[2023-12-06] MEDS: sodium chloride 0.9% 1,000 ML 75 ML IV (15:18)
[2023-12-06] MEDS: heparin 5,000 unit/mL INJ 1 mL 5000 UNIT SUBCUT (15:20)
--- NOTE | 2023-12-06 18:14 | PC.NURSE ---
REceived patient from ER staff at 1641. Patient will open his eyes to calling his name, but will quickly fall back asleep. WIll mumbls his name. HR: 97, BP: 120/69, SPPO2: 96% on Bipap (30% fio2), Temp: 96.9 axillary. Patient has multiple wounds. Sacral ulcer which has a dressing and packing, this was changed upon arrival. Unstageable pressure injury to right heel - heels floated. All toes on right foot are amputated and theres large scab/slow healing wound.
--- NOTE | 2023-12-06 19:15 | PC.NURSE ---
Patient currently NPO, however when patient is able to eat, Dr. Chong ordered low potassium diet.
[2023-12-06] MEDS: clopidogrel 75 mg Tablet PO (21:21)
[2023-12-06] MEDS: aspirin 81 mg EC Tablet PO (21:21)
[2023-12-06 21:37] LABS: Glucose Point of Care 202 mg/dL (70-110)
[2023-12-06 22:50] LABS: Anion Gap 21.1 (5-19); Blood Urea Nitrogen 39 mg/dL (8-23); Calcium 8.4 mg/dL (8.5-10.5); Carbon Dioxide 27 mmol/L (22-29); Chloride 96 mmol/L (98-107); Creatinine Clr Calc Pharmacy 22.5098; Glucose 218 mg/dL (65-115); Osmolality Calculated 302 mOsm/kg (285-295); Potassium 6.1 mmol/L (3.5-5.1); Sodium 138 mmol/L (136-145)
[2023-12-07] VITALS (37 sets, daily range): BP systolic 105–157; BP diastolic 40–109; PULSE 85–124; RESP 17–37; TEMP 37–37.9; O2SAT 93–100
[2023-12-07] MEDS: LORazepam 2 mg/mL INJ 10 mL MDV 0.5 MG IVP (00:32)
[2023-12-07] MEDS: heparin 5,000 unit/mL INJ 1 mL 5000 UNIT SUBCUT (02:10)
[2023-12-07] MEDS: sodium chloride 0.9% 1,000 ML 75 ML IV (02:13)
[2023-12-07 05:07] LABS: Alveolar-Arterial Oxygen Gradi 7.4 mmHg (5-10); Arterial Blood Gas Hematocrit 27.6 % (42-52); Base Excess ABG 4.6 mmol/L (-2.0-2.0); Blood Gas Allen Test Pos; Blood Gas Sample Site Radial, left; Blood Gas Sample Type Arterial; Blood Gas Tidal Volume 0.45; Carboxyhemoglobin 1.8 %THgb (0.4-20.1); HCO3 ABG 32.2 mmol/L (22-26); HGB O2 Sat 93.7 % (95-100); Ionized Calcium Level - ABG 1.2 mmol/L (1.1-1.4); Methemoglobin 1.1 % (0.4-1.5); Oxygen Device BIPAP; Oxygen Saturation ABG 96.5; PO2 FiO2 Ratio Arterial Blood 0; Potassium Level - ABG 5.4 mmol/L (3.5-5.0)
[2023-12-07 05:09] LABS: ABG PCO2 65.3 mmHg (35-45)
[2023-12-07] MEDS: meropenem 1,000 MG in sodium chloride 0.9% (plus) 50 ML 100 MG IV (05:13)
[2023-12-07 07:40] LABS: Glucose Point of Care 121 mg/dL (70-110)
--- OUTSIDE RECORDS SUMMARY | 2023-12-07 07:54 | XMS_ITS | Encounter Summary ---
Author Name Unknown Organization [facility] Address [facility] [place] [address] Encounter Details Date Type Department Care Team Description 2023-09-30 Telephone [facility] [address] [place] [address] Shreya Salamanca The [facility] care team was unable to complete a Medication Reconciliation with the patient following discharge. ASSESSMENT No Information TREATMENT PLAN No Information
--- OUTSIDE RECORDS SUMMARY | 2023-12-07 07:54 | XMS_ITS ---
Author Name Philly Julio Address [address] [place] [id number] Phone [phone] Organization [facility], NA DOCUMENT DISCLAIMER Multiple document versions may exist, please be sure you review the latest version. The information in the [facility] Progress Note Document represents a providers documented clinical note containing certain health and medical information. It may not contain the complete medical history for the patient and should be independently verified. The represented time in the document is Eastern Time PROVIDER ROUNDING NOTE SALLY Patient:?Usman?Kim,?1950,?73y,?M Dialysis?Location:?[facility] Attending?Gun Perforator Loader:?[facility]?Date:?11/11/2023 Service?Provider:?Philly?Sumanth,? I?met?face?to?face?with?the?patient?today. OVERVIEW The?patient?presented?with?SALLY?on?dialysis. 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 He?has?been?in?the?hospital?again?since?07/2023.?He&#16 0;has?been?dialysis?dependent?since.?Still?making?urine?but& #160;no?signs?of?renal?recovery?as?is?still?~3.4. VSS,?seen?on?HD?machine,?denies?needs?for?me?today Now?dnr.?? Will?make?ESRD?today. Medications?and?labs?reviewed. LAST?HOSPITALIZATION Discharge?Diagnosis:?J90?Pleural?effusion,?not?elsewhere?classified Admission?Date?10/06/23 Discharge?Date?10/15/23 DIALYSIS?PRESCRIPTION ??IHD?3x?Week?Start?date:?11/08/23 ??Dialyzer:?180NRe?Optiflux ??BFR:?450 ??DFR:?Autoflow?1.5 ??Potassium:?2.0 ??Sodium:?138 ??EDW:?85 ??Duration:?3:30 ??Calcium:?2.5 ??Bicarb:?36 ??Rx?updated?on:?11/08/2023 TREATMENT?ASSESSMENT Blood?pressure?controlled.?No?changes?indicated.? BP?Sit?Pre ??11/08/2023:?105/66 ??11/06/2023:?136/78 ??11/04/2023:?104/69 BP?Sit?Post ??11/08/2023:?170/82 ??11/06/2023:?154/83 ??11/04/2023:?171/90 Tx?Duration ??11/08/2023:?3:30 ??11/06/2023:?3:30 ??11/04/2023:?3:30 Missed?Treatments 0?-?last?30?days 0?-?last?60?days FLUID?ASSESSMENT Comments:?Lower?faustino?leg?edema?2+ UF?as?BP?tolerates;?avoid?hypotension EDW?(kg) ??11/08/2023:?84.0 ??11/06/2023:?84.0 ??11/04/2023:?84.0 Weight?Pre?(kg) ??11/08/2023:?85.6 ??11/06/2023:?85.0 ??11/04/2023:?85.2 Weight?Post?(kg) ??11/08/2023:?84.6 ??11/06/2023:?84.0 ??11/04/2023:?84.0 PWV?(kg) ??11/08/2023:?0.6 ??11/06/2023:?0.0 ??11/04/2023:?0.0 UF?Rate?(mL/kg/hr) ??11/08/2023:?3.4 ??11/06/2023:?3.4 ??11/04/2023:?4.1 ADEQUACY?ASSESSMENT Comments:?Will?make?ESRD kt/v?at?goal. spKt/V,?URR,?Creatinine ??11/06/2023:?1.36,?71,?3.37 ??10/30/2023:?1.55,?76,?3.3 ??10/23/2023:?-,?-,?3.06 ACCESS?ASSESSMENT ??Access?Type:?CVCatheter ??Access?SubType:?Tunneled ??Access?Status:?Active?(In?Use)?-?07/15/2023 ??Access?Location:?Chest ??Placed:?07/10/2023 Vascular?access?reviewed. ANEMIA?ASSESSMENT Comments:?On?IV?iron?and?RAUL?protocol. HGB,?TSAT ??11/06/2023:?11.1,?18.0 ??10/30/2023:?10.2,?- ??10/23/2023:?10.0,?- ?? Ferritin ??11/06/2023:?264.0 ??10/21/2023:?156.0 ??07/23/2023:?59.0 Mircera,?IVP?(mcg) ??10/30/2023:?30 Iron?Sucrose?(Venofer)?(mg) ??11/06/2023:?100 ??11/01/2023:?100 ??10/30/2023:?100 BMM?ASSESSMENT PTH?controlled.?Calcium?controlled.?Phosphorus?controlled.?BMM?me ds?adherence?acceptable.?No?changes?indicated.? Phosphorus,?Calcium ??11/06/2023:?3.4,?8.3 ??10/21/2023:?5.5,?8.3 ??09/23/2023:?6.1,?8.2 ?? Magnesium ??11/06/2023:?2.1 ??10/21/2023:?2.2 ??09/23/2023:?3.1 ?? PTH,?Intact ??10/21/2023:?180.0 NUTRITION?ASSESSMENT Comments:?Is?on?2?K?bath.?May?have?to?change?to&#1 60;3?K?bath?if?potassium?trends?<?3.5. Potassium?controlled.?Albumin?below?goal.?Referred?to?dietitian. Albumin,?Potassium ??11/06/2023:?3.4,?3.8 ??10/21/2023:?3.4,?4.1 ??09/30/2023:?-,?6.2 ?? eNPCR ??11/06/2023:?0.58 ??10/30/2023:?0.59 ??09/30/2023:?0.67 PHYSICAL?EXAM Exam?Performed.?Vital?Signs?Reviewed.?Lungs?-?Clear.?CV&#160 ;-?Blood?pressure?noted.?CV?-?RRR.?EXT?-?2+?edema.?EXT?-?No?ulcers. DIAGNOSIS Chief?Complaint:?N17.9?Acute?kidney?failure,?unspecified Patient?is?stable.?Patient?needs?to?transition?to?ESRD. Patient?data?updated?11/11/2023?at?1:58?PM Signed?By:?Sumanth,?Philly,???on?11/11/2023?2:02:30?PM END OF DOCUMENT
--- OUTSIDE RECORDS SUMMARY | 2023-12-07 07:54 | XMS_ITS | Encounter Summary ---
Author Name Unknown Organization [facility] Address [facility] [place] [address] Encounter Details Date Type Department Care Team Description 2023-12-04 Telephone [facility] [address] [place] [address] Shreya Salamanca The [facility] care team was unable to complete a Medication Reconciliation with the patient following discharge. ASSESSMENT No Information TREATMENT PLAN No Information
--- OUTSIDE RECORDS SUMMARY | 2023-12-07 07:54 | XMS_ITS ---
Author Name Dionisio Lowry Address [address] [place] [id number] Organization Unknown Address [address] [place] [address] ALLERGIES AND ADVERSE REACTIONS No information ASSESSMENT No information CHIEF COMPLAINT No information MEDICATIONS No information OBJECTIVE DATA No information PHYSICAL EXAMINATION No information TREATMENT PLAN Planned Care Start Date Provider Encounter for Check-up [id number] [facility] PROBLEMS No information RESULTS No information REVIEW OF SYSTEMS No information SUBJECTIVE DATA No information VITAL SIGNS No information
--- OUTSIDE RECORDS SUMMARY | 2023-12-07 07:54 | XMS_ITS ---
Author Name Sumanth Philly Address [address] [place] [address] Phone [phone] Organization [facility], NA DOCUMENT DISCLAIMER Multiple document versions may exist, please be sure you review the latest version. The information in the [facility] Progress Note Document represents a providers documented clinical note containing certain health and medical information. It may not contain the complete medical history for the patient and should be independently verified. The represented time in the document is Eastern Time PROVIDER ROUNDING NOTE SALLY Patient:?Usman?Kim,?1950,?73y,?M Dialysis?Location:?[facility] Attending?Yarn Salvager:?[facility]?Date:?07/23/2023 Service?Provider:?Philly?Sumanth,? I?met?face?to?face?with?the?patient?today. OVERVIEW The?patient?presented?with?SALLY?on?dialysis. Cause?of?SALLY:?ATN?Tubular?Necrosis;?Date?of?first?dialy sis?in?inpatient?setting:?07/23/2023 Comments:?SALLY?on?CKD?3?secondary?to?sepsis?and?BRIAN&#160 ;after?right?leg?angiogram.?He?had?DM?vascular?ulcers?t o?right?foot?with?osteo?s/p?transmetatarsal?amputation. He?is?still?making?urine. BPs?stable?today. Labs?being?drawn?today. Medications?and?labs?reviewed. DIALYSIS?PRESCRIPTION ??IHD?3x?Week?Start?date:?07/21/23 ??Dialyzer:?180NRe?Optiflux ??BFR:?450 ??DFR:?Autoflow?1.5 ??Potassium:?3.0 ??Sodium:?138 ??EDW:?101 ??Duration:?3:30 ??Calcium:?2.5 ??Bicarb:?36 ??Rx?updated?on:?07/17/2023 FLUID?ASSESSMENT Comments:?Lower?faustino?leg?edema?2+ UF?as?BP?tolerates;?avoid?hypotension ACCESS?ASSESSMENT ??Access?Type:?CVCatheter ??Access?SubType:?Tunneled ??Access?Status:?Active?(In?Use)?-?07/15/2023 ??Access?Location:?Chest ??Placed:?07/10/2023 Vascular?access?reviewed.?Current?access?is?functioning?well. PHYSICAL?EXAM Exam?Performed.?Vital?Signs?Reviewed.?Lungs?-?Clear.?CV&#160 ;-?Blood?pressure?noted.?CV?-?Murmur?present.?CV?- RRR.?EXT?-?2+?edema. DIAGNOSIS Chief?Complaint:?N17.9?Acute?kidney?failure,?unspecified Patient?is?stable. Patient?data?updated?07/23/2023?at?2:56?PM Signed?By:?Sumanth,?Philly???on?07/23/2023?2:58:21?PM END OF DOCUMENT
--- OUTSIDE RECORDS SUMMARY | 2023-12-07 07:54 | XMS_ITS | Encounter Summary ---
Author Name Unknown Organization [facility] Address [facility] [place] [address] Encounter Details Date Type Department Care Team Description 2023-08-07 Telephone [facility] [address] [place] [address] Shreya Salamanca The [facility] care team was unable to complete a Medication Reconciliation with the patient following discharge. ASSESSMENT No Information TREATMENT PLAN No Information
--- OUTSIDE RECORDS SUMMARY | 2023-12-07 07:54 | XMS_ITS | Encounter Summary ---
Author Name Unknown Organization [facility] Address [facility] [place] [address] Encounter Details Date Type Department Care Team Description 2023-09-04 Telephone [facility] [address] [place] [address] Shreya Patel Medication Reconciliation was successfully completed by the [facility] Care Team. ASSESSMENT No Information TREATMENT PLAN No Information
--- OUTSIDE RECORDS SUMMARY | 2023-12-07 07:54 | XMS_ITS ---
Author Name Debra Maddox Address [address] [place] [address] Phone [phone] Organization [facility] e, NA DOCUMENT DISCLAIMER Multiple document versions may exist, please be sure you review the latest version. The information in the [facility] Progress Note Document represents a providers documented clinical note containing certain health and medical information. It may not contain the complete medical history for the patient and should be independently verified. The represented time in the document is Eastern Time PROVIDER ROUNDING NOTE SALLY Patient:?Usman?Kim,?1950,?73y,?M Dialysis?Location:?[place] Attending?Brain Picker:?[place]?Sumanth Service?Date:?10/02/2023 Service?Provider:?Debra?Tan,?SECURITY SUPPORT ANALYST I?met?face?to?face?with?the?patient?today. OVERVIEW The?patient?presented?with?SALLY?on?dialysis. 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 He?is?still?making?urine. BPs?stable?today. VSS,?seen?on?HD?machine,?denies?needs?for?me?today Drinks?around?50?ounces?water?daily,?negative?for?symptoms of?fluid?excess Medications?and?labs?reviewed. LAST?HOSPITALIZATION Discharge?Diagnosis:?I25.5?Ischemic?cardiomyopathy I21.4?Non-ST?elevation?(NSTEMI)?myocardial?infarction I50.30?Unspecified?diastolic?(congestive)?heart?failure Admission?Date?08/05/23 Discharge?Date?09/18/23 DIALYSIS?PRESCRIPTION ??IHD?3x?Week?Start?date:?09/30/23 ??Dialyzer:?180NRe?Optiflux ??BFR:?450 ??DFR:?Autoflow?1.5 ??Potassium:?3.0 ??Sodium:?138 ??EDW:?89.3 ??Duration:?3:30 ??Calcium:?2.5 ??Bicarb:?36 ??Rx?updated?on:?09/27/2023 TREATMENT?ASSESSMENT BP?Sit?Pre ??09/30/2023:?127/70 ??09/27/2023:?139/71 ??09/25/2023:?138/76 BP?Sit?Post ??09/30/2023:?138/105 ??09/27/2023:?163/91 ??09/25/2023:?161/78 Tx?Duration ??09/30/2023:?3:35 ??09/27/2023:?3:32 ??09/25/2023:?3:30 Missed?Treatments 0?-?last?30?days 0?-?last?60?days FLUID?ASSESSMENT Comments:?Lower?faustino?leg?edema?2+ UF?as?BP?tolerates;?avoid?hypotension EDW?(kg) ??09/30/2023:?89.3 ??09/27/2023:?89.8 ??09/25/2023:?89.8 Weight?Pre?(kg) ??09/30/2023:?89.2 ??09/27/2023:?91.4 ??09/25/2023:?90.6 Weight?Post?(kg) ??09/30/2023:?89.0 ??09/27/2023:?89.0 ??09/25/2023:?89.4 PWV?(kg) ??09/30/2023:?-0.3 ??09/27/2023:?-0.8 ??09/25/2023:?-0.4 UF?Rate?(mL/kg/hr) ??09/30/2023:?0.6 ??09/27/2023:?7.6 ??09/25/2023:?3.8 ADEQUACY?ASSESSMENT Comments:?Awaiting?current?lab?results: spKt/V,?URR,?Creatinine ??09/30/2023:?1.35,?71,?- ??09/25/2023:?-,?-,?5.18 ??09/23/2023:?1.3,?70,?6.5 ACCESS?ASSESSMENT ??Access?Type:?CVCatheter ??Access?SubType:?Tunneled ??Access?Status:?Active?(In?Use)?-?07/15/2023 ??Access?Location:?Chest ??Placed:?07/10/2023 Vascular?access?reviewed. ANEMIA?ASSESSMENT HGB?at?goal.?Iron?parameters?acceptable.?RAUL?dose?adequate. HGB,?TSAT ??09/25/2023:?12.3,?- ??09/23/2023:?12.3,?10.0 ??07/30/2023:?11.1,?- ?? Ferritin ??07/23/2023:?59.0 Iron?Sucrose?(Venofer)?(mg) ??09/25/2023:?100 ??08/03/2023:?100 ??08/01/2023:?100 BMM?ASSESSMENT Phosphorus,?Calcium ??09/23/2023:?6.1,?8.2 ??07/23/2023:?3.5,?8.3 ?? Magnesium ??09/23/2023:?3.1 ??07/23/2023:?2.1 NUTRITION?ASSESSMENT Comments:?Change?bath?to?2k Albumin,?Potassium ??09/30/2023:?-,?6.2 ??09/23/2023:?3.8,?6.4 ??07/23/2023:?3.9,?4.7 ?? eNPCR ??09/30/2023:?0.67 PHYSICAL?EXAM Exam?Not?Performed. DIAGNOSIS Chief?Complaint:?N17.9?Acute?kidney?failure,?unspecified Patient?data?updated?10/02/2023?at?12:22?PM Signed?By:?Tan,?Debra,?SECURITY SUPPORT ANALYST??on?10/02/2023?12:28:58 PM END OF DOCUMENT
--- OUTSIDE RECORDS SUMMARY | 2023-12-07 07:54 | XMS_ITS ---
Author Name Debra Maddox Address [address] [place] [address] Phone [phone] Organization [facility] e, NA DOCUMENT DISCLAIMER Multiple document versions may exist, please be sure you review the latest version. The information in the [facility] Progress Note Document represents a providers documented clinical note containing certain health and medical information. It may not contain the complete medical history for the patient and should be independently verified. The represented time in the document is Eastern Time PROVIDER ROUNDING NOTE SALLY Patient:?Usman?Kim,?1950,?73y,?M Dialysis?Location:?[place] Attending?Heliotherapist:?Delta Service?Date:?08/13/2023 Service?Provider:?Debra?Tan,?DEVELOPMENTAL MATHEMATICS INSTRUCTOR I?met?face?to?face?with?the?patient?today. OVERVIEW The?patient?presented?with?SALLY?on?dialysis. 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 He?is?still?making?urine. BPs?stable?today. VSS,?seen?on?HD?machine,?denies?needs?for?me?today Medications?and?labs?reviewed. DIALYSIS?PRESCRIPTION ??IHD?3x?Week?Start?date:?08/04/23 ??Dialyzer:?180NRe?Optiflux ??BFR:?450 ??DFR:?Autoflow?1.5 ??Potassium:?3.0 ??Sodium:?138 ??EDW:?94 ??Duration:?3:30 ??Calcium:?2.5 ??Bicarb:?36 ??Rx?updated?on:?08/03/2023 TREATMENT?ASSESSMENT BP?Sit?Pre ??08/03/2023:?114/66 ??08/01/2023:?149/71 ??07/30/2023:?161/76 BP?Sit?Post ??08/03/2023:?136/62 ??08/01/2023:?158/98 ??07/30/2023:?110/68 Tx?Duration ??08/03/2023:?3:24 ??08/01/2023:?3:30 ??07/30/2023:?3:31 Missed?Treatments 0?-?last?30?days 0?-?last?60?days FLUID?ASSESSMENT Comments:?Lower?faustino?leg?edema?2+ UF?as?BP?tolerates;?avoid?hypotension EDW?(kg) ??08/03/2023:?91.9 ??08/01/2023:?91.9 ??07/30/2023:?91.9 Weight?Pre?(kg) ??08/03/2023:?91.4 ??08/01/2023:?93.8 ??07/30/2023:?93.0 Weight?Post?(kg) ??08/03/2023:?94.0 ??08/01/2023:?91.7 ??07/30/2023:?91.7 PWV?(kg) ??08/03/2023:?2.1 ??08/01/2023:?-0.2 ??07/30/2023:?-0.2 UF?Rate?(mL/kg/hr) ??08/03/2023:?-8.1 ??08/01/2023:?6.5 ??07/30/2023:?4 ADEQUACY?ASSESSMENT Comments:?Awaiting?current?lab?results spKt/V,?URR,?Creatinine ??07/30/2023:?-,?-,?3.34 ??07/23/2023:?1.38,?68,?2.48 ACCESS?ASSESSMENT ??Access?Type:?CVCatheter ??Access?SubType:?Tunneled ??Access?Status:?Active?(In?Use)?-?07/15/2023 ??Access?Location:?Chest ??Placed:?07/10/2023 ANEMIA?ASSESSMENT HGB?at?goal.? HGB,?TSAT ??07/30/2023:?11.1,?- ??07/23/2023:?9.8,?24.0 ?? Ferritin ??07/23/2023:?59.0 Iron?Sucrose?(Venofer)?(mg) ??08/03/2023:?100 ??08/01/2023:?100 ??07/30/2023:?100 BMM?ASSESSMENT PTH?controlled.?Calcium?controlled.?Phosphorus?controlled.?No?tristen nges?indicated.? Phosphorus,?Calcium ??07/23/2023:?3.5,?8.3 ?? Magnesium ??07/23/2023:?2.1 NUTRITION?ASSESSMENT Potassium?controlled.?Albumin?controlled.?No?changes?indicated.? Albumin,?Potassium ??07/23/2023:?3.9,?4.7 PHYSICAL?EXAM Exam?Not?Performed. DIAGNOSIS Chief?Complaint:?N17.9?Acute?kidney?failure,?unspecified Patient?data?updated?08/14/2023?at?7:49?AM Signed?By:?Tan,?Debra,?DEVELOPMENTAL MATHEMATICS INSTRUCTOR??on?08/14/2023?7:51:02 AM END OF DOCUMENT
--- OUTSIDE RECORDS SUMMARY | 2023-12-07 07:54 | XMS_ITS ---
Author Name Debra Maddox Address [address] [place] [address] Phone [phone] Organization [facility] e, NA DOCUMENT DISCLAIMER Multiple document versions may exist, please be sure you review the latest version. The information in the [facility] Progress Note Document represents a providers documented clinical note containing certain health and medical information. It may not contain the complete medical history for the patient and should be independently verified. The represented time in the document is Eastern Time PROVIDER ROUNDING NOTE SALLY Patient:?Usman?Kim,?1950,?73y,?M Dialysis?Location:?[place] Attending?Wood Floor Layer:?Delta Service?Date:?10/23/2023 Service?Provider:?Debra?Tan,?RETAIL ACCOUNT SPECIALIST I?met?face?to?face?with?the?patient?today. OVERVIEW The?patient?presented?with?SALLY?on?dialysis. 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 He?is?still?making?urine. BPs?stable?today. VSS,?seen?on?HD?machine,?denies?needs?for?me?today Now?dnr.?? Medications?and?labs?reviewed. LAST?HOSPITALIZATION Discharge?Diagnosis:?J90?Pleural?effusion,?not?elsewhere?classified Admission?Date?10/06/23 Discharge?Date?10/15/23 DIALYSIS?PRESCRIPTION ??IHD?3x?Week?Start?date:?10/18/23 ??Dialyzer:?180NRe?Optiflux ??BFR:?450 ??DFR:?Autoflow?1.5 ??Potassium:?2.0 ??Sodium:?138 ??EDW:?86.6 ??Duration:?3:30 ??Calcium:?2.5 ??Bicarb:?36 ??Rx?updated?on:?10/16/2023 TREATMENT?ASSESSMENT BP?Sit?Pre ??10/21/2023:?150/81 ??10/18/2023:?130/78 ??10/16/2023:?147/63 BP?Sit?Post ??10/21/2023:?154/75 ??10/18/2023:?163/88 ??10/16/2023:?108/94 Tx?Duration ??10/21/2023:?3:30 ??10/18/2023:?3:30 ??10/16/2023:?3:31 Missed?Treatments 0?-?last?30?days 0?-?last?60?days FLUID?ASSESSMENT Comments:?Lower?faustino?leg?edema?2+ UF?as?BP?tolerates;?avoid?hypotension EDW?(kg) ??10/21/2023:?86.6 ??10/18/2023:?86.6 ??10/16/2023:?88.8 Weight?Pre?(kg) ??10/21/2023:?89.2 ??10/18/2023:?87.6 ??10/16/2023:?85.8 Weight?Post?(kg) ??10/21/2023:?86.8 ??10/18/2023:?87.6 ??10/16/2023:?86.6 PWV?(kg) ??10/21/2023:?0.2 ??10/18/2023:?1.0 ??10/16/2023:?-2.2 UF?Rate?(mL/kg/hr) ??10/21/2023:?7.9 ??10/18/2023:?0 ??10/16/2023:?-2.6 ADEQUACY?ASSESSMENT Comments:?No?significant?creatinine?change.??Drawing?today spKt/V,?URR,?Creatinine ??10/21/2023:?-,?-,?3.34 ??10/16/2023:?-,?-,?3.89 ??09/30/2023:?1.35,?71,?- ACCESS?ASSESSMENT ??Access?Type:?CVCatheter ??Access?SubType:?Tunneled ??Access?Status:?Active?(In?Use)?-?07/15/2023 ??Access?Location:?Chest ??Placed:?07/10/2023 ANEMIA?ASSESSMENT HGB,?TSAT ??10/21/2023:?10.9,?25.0 ??10/16/2023:?10.3,?- ??09/25/2023:?12.3,?- ?? Ferritin ??10/21/2023:?156.0 ??07/23/2023:?59.0 Iron?Sucrose?(Venofer)?(mg) ??10/21/2023:?100 ??09/25/2023:?100 ??08/03/2023:?100 BMM?ASSESSMENT Comments:?No?new?labs?to?reveiw:?drawing?today Phosphorus,?Calcium ??10/21/2023:?5.5,?8.3 ??09/23/2023:?6.1,?8.2 ??07/23/2023:?3.5,?8.3 ?? Magnesium ??10/21/2023:?2.2 ??09/23/2023:?3.1 ??07/23/2023:?2.1 ?? PTH,?Intact ??10/21/2023:?180.0 NUTRITION?ASSESSMENT Comments:?Change?bath?to?2k:?potassium?improved Albumin,?Potassium ??10/21/2023:?3.4,?4.1 ??09/30/2023:?-,?6.2 ??09/23/2023:?3.8,?6.4 ?? eNPCR ??09/30/2023:?0.67 PHYSICAL?EXAM Exam?Not?Performed. DIAGNOSIS Chief?Complaint:?N17.9?Acute?kidney?failure,?unspecified Patient?data?updated?10/23/2023?at?12:44?PM Signed?By:?Tan,?Debra,?RETAIL ACCOUNT SPECIALIST??on?10/23/2023?12:46:35 PM END OF DOCUMENT
--- OUTSIDE RECORDS SUMMARY | 2023-12-07 07:54 | XMS_ITS | Encounter Summary ---
Author Name Unknown Organization [facility] Address [facility] [place] [address] Encounter Details Date Type Department Care Team Description 2023-10-29 Telephone [facility] [address] [place] [address] Shreya Patel Medication Reconciliation was successfully completed by the [facility]. ASSESSMENT No Information TREATMENT PLAN No Information
[2023-12-07 08:02] LABS: Basophils % 0.4 %; Eosinophils # 0.1 10^3/uL (0.0-0.8); Eosinophils % 0.8 %; Lymphocytes % 37.9 %; Mean Corpuscular Hemoglobin 29.5 pg (27-33); Mean Corpuscular Volume 98.3 fl (82-101); Mean Platelet Volume 9.7 fL (7.4-10.4); Monocytes % 9.1 %; Neutrophils # 5.48 10^3/uL (1.8-7.7); Neutrophils % 51.5 %; Nucleated Red Blood Cells % 0 %; Platelet Count 245 10^3/cmm (157-399); Red Blood Count 2.95 10^6/uL (3.85-5.65); Red Cell Distribution Width 14.5 % (12.1-15.1); White Blood Count 10.63 10^3/uL (3.29-11.43)
[2023-12-07 08:26] LABS: Alanine Aminotransferase 6 U/L (0-41); Albumin Level 3.2 g/dL (3.5-5.2); Alkaline Phosphatase 81 U/L (40-130); Anion Gap 16.3 (5-19); Aspartate Amino Transferase 11 U/L (0-40); Blood Urea Nitrogen 41 mg/dL (8-23); Calcium 8.6 mg/dL (8.5-10.5); Carbon Dioxide 30 mmol/L (22-29); Chloride 100 mmol/L (98-107); Globulin 2.3 g/dL (1.3-4.6); Glucose 121 mg/dL (65-115); Osmolality Calculated 303 mOsm/kg (285-295); Potassium 5.3 mmol/L (3.5-5.1); Sodium 141 mmol/L (136-145); Total Bilirubin 0.2 mg/dL (0.15-1.2); Total Protein 5.5 g/dL (6.6-8.7)
[2023-12-07 08:53] LABS: Creatinine Clr Calc Pharmacy 22.0022
[2023-12-07 11:53] LABS: Glucose Point of Care 109 mg/dL (70-110)
--- NOTE | 2023-12-07 14:12 | P.PN_ITS ---
Subjective 2 Subjective: seen this morning morning ABG reviewed: Vitals/I&O/Wt Last Vital Signs Temp 98.6 F 12/07/23 02:00 Pulse 97 12/07/23 13:46 Resp 29 H 12/07/23 12:00 BP 108/70 12/07/23 12:00 Pulse Ox 100 12/07/23 13:46 O2 Del Method BiPAP 12/07/23 12:00 O2 Flow Rate 5 12/06/23 10:21 FiO2 30 12/07/23 13:46 12/06/23 12/07/23 12/07/23 22:59 06:59 14:59 Intake Total 220 / 220 1050 / 1270 Output Total 0 / 0 Balance 220 / 220 1050 / 1270 Weight last 48 hrs Weight 82.2 kg Weight 80.83 kg Weight 81.647 kg Physical Exam 2 Narrative: General exam demonstrates a white male, chronically ill-appearing.awake, on bipap, follows commands. CardiovascularRRR Dialysis catheter noted right chest Lungs diminished breath sounds bilaterally right greater than left. No crackles. No wheezes Abdomen is soft, positive bowel sounds. No obvious organomegaly Extremities 2+ edema bilaterally. No cyanosis or clubbing. Neuro: No focal deficits Data 12/07/23 07:02 12/07/23 07:02 Micro: Microbiology 12/06/23 11:27 Blood Culture - Preliminary Blood NEGATIVE TO DATE 12/06/23 11:25 Blood Culture - Preliminary Blood NEGATIVE TO DATE A&P Assessment and plan (1) Elevated troponin I level: (2) Atherosclerosis of coronary artery: Qualifiers: Coronary Disease-Associated Artery/Lesion type: [place] artery [place] vs. transplanted heart: [place] heart Associated angina: without angina Qualified Code(s): I25.10 - Atherosclerotic heart disease of [place] coronary artery without angina pectoris (3) Diabetes: Qualifiers: Diabetes mellitus type: type 2 Diabetes mellitus intermediate insulin use: with intermediate designer use Diabetes mellitus complication status: with kidney complications Diabetes mellitus complication detail: with chronic kidney disease Chronic kidney disease stage: stage 5, not on chronic dialysis Qualified Code(s): E11.22 - Type 2 diabetes mellitus with diabetic chronic kidney disease; N18.5 - Chronic kidney disease, stage 5; Z79.4 - assisted (current) use of insulin (4) CKD (chronic kidney disease): Qualifiers: Chronic kidney disease stage: on chronic dialysis Qualified Code(s): N 18.6 - End stage renal disease; Z99.2 - Dependence on renal dialysis (5) Pressure injury of sacral region, unstageable: (6) Sacral decubitus ulcer, stage IV: (7) Peripheral neuropathy: (8) Syncope: (9) End-stage renal disease on hemodialysis: (10) NSTEMI (non-ST elevated myocardial infarction): Plan # Acute hypercarbic on chronic hypercarbic respiratory failure #Metabolic encephalopathy #CAD status post PCI x 4 stents #Syncope after dialysis #Elevated troponin, NSTEMI #Sacral decubitus ulcer #Recurrent pleural effusion with recent thoracentesis #Diabetes mellitus, insulin-dependent #Hypothyroidism ? Continue aspirin, Plavix, metoprolol tartrate, levothyroxine ? Elevated troponin NSTEMI most likely secondary to renal disease. Type II demand ischemia ? Continue treatment for UTI as per previous admission. Will place on meropenem while in the hospital and discharged on doxycycline once able ? Repeat chest x-ray today shows large right pleural effusion. Patient unable to get dialyzed today. ? Will consult nephrology for dialysis. ? Will order thoracentesis for therapeutic purposes. Hold plavix. Consult pulm in AM for thora vs drain placement ? Palliative care/hospice was suggested to baseline at previous discharge. - Continue bipap as needed - Plan for dialysis today DNR/DNI ? DVT prophylaxis: Heparin SQ twice daily Patient does carry a risk of multiple admissions secondary to chronic issues. Attestations 2 Medical Necessity Statement*: Will require greater than 2 midnight stay for mgmt of recurrant pleural effusion,co2 narcosis Critical Care Time: Critical Care Time (min): 0 Diagnoses Elevated troponin I level R79.89 Atherosclerosis of [place] coronary artery of [place] heart without angina pectoris I25.10 Coronary Disease-Associated Artery/Lesion type: [place] artery [place] vs. 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 not on chronic dialysis, with long-term current use of insulin E11.22; N18.5; Z79.4 Diabetes mellitus type: type 2 Diabetes mellitus intermediate designer insulin use: with intermediate use Diabetes mellitus complication status: with kidney complications Diabetes mellitus complication detail: with chronic kidney disease Chronic kidney disease stage: stage 5, not on chronic dialysis Stage 5 chronic kidney disease on chronic dialysis N18.6; Z99.2 Chronic kidney disease stage: on chronic dialysis Pressure injury of sacral region, unstageable L89.150 Sacral decubitus ulcer, stage IV L89.154 Peripheral neuropathy G62.9 Syncope R55 End-stage renal disease on hemodialysis N18.6; Z99.2 NSTEMI (non-ST elevated myocardial infarction) I21.4
[2023-12-07] MEDS: albumin 25 G/100 ML BAG 60 G IV (14:40)
[2023-12-07] MEDS: heparin, porcine 1,000 unit/mL INJ 10 mL 10000 UNIT HE (16:36)
[2023-12-07] MEDS: heparin, porcine 1,000 unit/mL INJ 10 mL 10000 UNIT INTRACATH (16:37)
[2023-12-07 20:50] LABS: Glucose Point of Care 104 mg/dL (70-110)
[2023-12-08] VITALS (45 sets, daily range): BP systolic 85–148; BP diastolic 47–103; PULSE 94–140; RESP 6–42; TEMP 37.2–37.6; O2SAT 88–100; BMI 24.7
--- NOTE | 2023-12-08 03:30 | PC.NURSE ---
Patient removed his bipap mask and stated help me. help me . I cant breathe . O2 sat 99%. Placed patient on nasal cannula 2 liters of O2 and offered him a drink of water, which he refused.
[2023-12-08] MEDS: levothyroxine 175 mcg Tablet PO (06:23)
[2023-12-08 07:43] LABS: Alanine Aminotransferase 7 U/L (0-41); Albumin Level 3.4 g/dL (3.5-5.2); Alkaline Phosphatase 76 U/L (40-130); Aspartate Amino Transferase 16 U/L (0-40); Blood Urea Nitrogen 24 mg/dL (8-23); Calcium 8.3 mg/dL (8.5-10.5); Carbon Dioxide 23 mmol/L (22-29); Chloride 98 mmol/L (98-107); Creatinine Clr Calc Pharmacy 30.8983; Globulin 2.4 g/dL (1.3-4.6); Glucose 123 mg/dL (65-115); Osmolality Calculated 293 mOsm/kg (285-295); Sodium 139 mmol/L (136-145); Total Bilirubin 0.3 mg/dL (0.15-1.2); Total Protein 5.8 g/dL (6.6-8.7)
[2023-12-08 07:45] LABS: Anion Gap 22.3 (5-19); Potassium 4.3 mmol/L (3.5-5.1)
[2023-12-08 07:48] LABS: Glucose Point of Care 140 mg/dL (70-110)
--- NOTE | 2023-12-08 07:58 | XRR_ITS ---
PROCEDURE INFORMATION: Exam: XR Chest Exam date and time: 12/08/2023 8:14 AM Age: 73 years old Clinical indication: Condition or disease; Lung condition and disease; Pleural effusion; Other: Not specified; Prior surgery; Surgery date: 6+ months; Surgery type: Stents; Additional info: Re-assess pleural effusion TECHNIQUE: Imaging protocol: Radiologic exam of the chest. Views: 1 view. COMPARISON: CR XR chest 1V [id number] 12/06/2023 10:29 AM FINDINGS: Lungs: Persistent bibasilar consolidation worse on the right versus the left. Pleural spaces: Persistent bilateral pleural effusions worse on the right versus the left. Heart/Mediastinum: The cardiomediastinal silhouette is within normal limits. Vasculature: Large bore right-sided central venous tunneled line with the distal tip in the right atrium. Bones/joints: Unremarkable. XR/XR chest 1V portable [id number] IMPRESSION: 1. Persistent bilateral pleural effusions worse on the right versus the left. 2. Persistent bibasilar consolidation worse on the right versus the left.
[2023-12-08 10:49] LABS: Basophils # 0.1 10^3/uL (0.0-0.1); Basophils % 0.7 %; Eosinophils # 0.2 10^3/uL (0.0-0.8); Eosinophils % 1.2 %; Hematocrit 31.6 % (37-53); Lymphocytes # 4.2 10^3/uL (0.8-4.8); Lymphocytes % 30.7 %; Mean Corpuscular HGB Conc 28.8 g/dL (30-55); Mean Corpuscular Hemoglobin 29.6 pg (27-33); Mean Corpuscular Volume 102.9 fl (82-101); Mean Platelet Volume 9.6 fL (7.4-10.4); Monocytes % 7.3 %; Neutrophils # 8.18 10^3/uL (1.8-7.7); Neutrophils % 59.9 %; Nucleated Red Blood Cells % 0 %; Platelet Count 248 10^3/cmm (157-399); Red Blood Count 3.07 10^6/uL (3.85-5.65); Red Cell Distribution Width 14.8 % (12.1-15.1); White Blood Count 13.64 10^3/uL (3.29-11.43)
--- NOTE | 2023-12-08 10:50 | PC.NURSE ---
Dressing change to sacral wound per orders
[2023-12-08 11:13] LABS: Slide Review Slide Review Perform
--- NOTE | 2023-12-08 11:13 | PM.PN ---
Subjective Subjective: repeat xray this am complete, report pending pt awake alert laying in bed appearing comfortble. at bedside Vitals/I&O/Wt Last Vital Signs Temp 99.4 F 12/08/23 04:00 Pulse 106 H 12/08/23 10:08 Resp 27 H 12/08/23 10:00 BP 129/60 12/08/23 10:00 Pulse Ox 98 12/08/23 10:08 O2 Del Method BiPAP 12/08/23 10:00 O2 Flow Rate 3 12/07/23 18:00 FiO2 30 12/08/23 10:08 12/07/23 12/08/23 12/08/23 22:59 06:59 14:59 Intake Total 600 / 1542.5 50 / 1592.5 Output Total 2412 / 2412 Balance -1812 / -869.5 50 / -819.5 Weight last 48 hrs Weight 80.5 kg Weight 80.5 kg Weight 80.5 kg Weight 82.2 kg Weight 80.83 kg Physical Exam Narrative: General exam demonstrates a white male, chronically ill-appearing.awake, on bipap, follows commands. CardiovascularRRR Dialysis catheter noted right chest Lungs diminished breath sounds bilaterally right greater than left. No crackles. No wheezes Abdomen is soft, positive bowel sounds. Extremities 2+ edema bilaterally which is chronic. No cyanosis or clubbing. Neuro: No focal deficits Data 12/07/23 07:02 12/08/23 05:53 Micro: Microbiology 12/06/23 11:27 Blood Culture - Preliminary Blood NEGATIVE TO DATE 12/06/23 11:25 Blood Culture - Preliminary Blood NEGATIVE TO DATE A&P Assessment and plan (1) Elevated troponin I level: (2) Atherosclerosis of coronary artery: Qualifiers: Coronary Disease-Associated Artery/Lesion type: [place] artery [place] vs. transplanted heart: [place] heart Associated angina: without angina Qualified Code(s): I25.10 - Atherosclerotic heart disease of [place] coronary artery without angina pectoris (3) Diabetes: Qualifiers: Diabetes mellitus type: type 2 Diabetes mellitus penitentiary insulin use: with penitentiary use Diabetes mellitus complication status: with kidney complications Diabetes mellitus complication detail: with chronic kidney disease Chronic kidney disease stage: stage 5, not on chronic dialysis Qualified Code(s): E11.22 - Type 2 diabetes mellitus with diabetic chronic kidney disease; N18.5 - Chronic kidney disease, stage 5; Z79.4 - residential (current) use of insulin (4) CKD (chronic kidney disease): Qualifiers: Chronic kidney disease stage: on chronic dialysis Qualified Code(s): N18.6 - End stage renal disease; Z99.2 - Dependence on renal dialysis (5) Pressure injury of sacral region, unstageable: (6) Sacral decubitus ulcer, stage IV: (7) Peripheral neuropathy: (8) Syncope: (9) End-stage renal disease on hemodialysis: (10) NSTEMI (non-ST elevated myocardial infarction): Plan # Acute hypercarbic on chronic hypercarbic respiratory failure #Metabolic encephalopathy #CAD status post PCI x 4 stents #Syncope after dialysis #Elevated troponin, NSTEMI #Sacral decubitus ulcer #Recurrent pleural effusion with recent thoracentesis #Diabetes mellitus, insulin-dependent #Hypothyroidism ? Continue aspirin, Plavix, metoprolol tartrate, levothyroxine ? Elevated troponin NSTEMI most likely secondary to renal disease. Type II demand ischemia ? Continue treatment for UTI as per previous admission. - pt has completed 7 days of meropenem. Stop antibiotics at this point. ? Repeat chest x-ray today shows large right pleural effusion. ? Will consult nephrology for dialysis. ? Will order thoracentesis for therapeutic purposes. Hold plavix. consult pulm for possible drain placement ? Palliative care/hospice was suggested to baseline at previous discharge. - Continue bipap as needed DNR/DNI ? DVT prophylaxis: Heparin SQ twice daily Patient does carry a risk of multiple admissions secondary to chronic issues. Attestations Medical Necessity Statement*: Will require greater than 2 midnight stay for mgmt of recurrant pleural effusion,co2 narcosis Critical Care Time: Critical Care Time (min): 0 Diagnoses Elevated troponin I level R79.89 Atherosclerosis of [place] coronary artery of [place] heart without angina pectoris I25.10 Coronary Disease-Associated Artery/Lesion type: [place] artery [place] vs. transplanted heart: [place] heart Associated angina: without angina Type 2 diabetes mellitus with stage 5 chronic kidney disease not on chronic dialysis, with long-term current use of insulin E11.22; N18.5; Z79.4 Diabetes mellitus type: type 2 Diabetes mellitus terminal system operator insulin use: with terminal system operator use Diabetes mellitus complication status: with kidney complications Diabetes mellitus complication detail: with chronic kidney disease Chronic kidney disease stage: stage 5, not on chronic dialysis Stage 5 chronic kidney disease on chronic dialysis N18.6; Z99.2 Chronic kidney disease stage: on chronic dialysis Pressure injury of sacral region, unstageable L89.150 Sacral decubitus ulcer, stage IV L89.154 Peripheral neuropathy G62.9 Syncope R55 End-stage renal disease on hemodialysis N18.6; Z99.2 NSTEMI (non-ST elevated myocardial infarction) I21.4
[2023-12-08 13:36] LABS: Glucose Point of Care 159 mg/dL (70-110)
[2023-12-08] MEDS: heparin 5,000 unit/mL INJ 1 mL 5000 UNIT SUBCUT (15:25)
--- NOTE | 2023-12-08 17:58 | XRR_ITS ---
PROCEDURE INFORMATION: Exam: XR Chest Exam date and time: 12/08/2023 6:15 PM Age: 73 years old Clinical indication: Other: Post thoracentesis; Prior surgery; Surgery date: 6+ months; Surgery type: Dialysis cath TECHNIQUE: Imaging protocol: Radiologic exam of the chest. Views: 1 view. COMPARISON: CR XR chest 1V portable [id number] 12/08/2023 8:14 AM FINDINGS: Tubes, catheters and devices: Right IJ approach central venous catheter redemonstrated. Lungs: Subtle irregular opacities in the left lung base. Pleural spaces: Small to moderate-sized right-sided pleural effusion. Heart/Mediastinum: Unremarkable. No cardiomegaly. Bones/joints: Unremarkable. XR/XR chest 1V portable [id number] IMPRESSION: 1. Small to moderate-sized right-sided pleural effusion. 2. Subtle irregular opacities in the left lung base.
--- NOTE | 2023-12-08 18:16 | PC.NURSE ---
Right Thoracentesis performed at bedside by Dr. Mejía with at bedside. 1900 ml clear, light yellow fluid drained from right side of chest. Pt remained stable throughtout procedure and tolerated well. VSS upon completion. Radiology now at bedside for PCXR.
[2023-12-08 18:42] LABS: Glucose Point of Care 148 mg/dL (70-110)
--- NOTE | 2023-12-08 19:30 | P.CONIM_ITS ---
Providers/Reason For Consult 2 Consulting Physician/Specialty*: Wilfredo Mejía MD/pulmonary critical care Reason for Consult*: Recurrent right pleural effusion Requesting Physician: Kia Moreno MD Attending Physician: Kia Moreno MD Primary Care Provider: Evelin Jenkins DO History of Present Illness History of Present Illness Mr. Usman Alvarez is a 73 year old male with history of atrial flutter; DM, HTN, Hyperlipidemia, PAD, CHF, ESRD on hemodialysis came today for recurrent right pleural effusion thoracentesis. Drained 1.6 L of straw-colored fluid. Postthoracentesis patient continues to complain shortness of breath revealed patient had an episode of unresponsiveness thought to be syncope. Oxygen saturation did not drop significantly. Rapid response was called. His vitals were stable, blood pressure was adequate, EKG showed minimal ST depression V4 through [address] elevation. ABG demonstrated pCO2 100 and pH 7.12. Recommended admission for hypercapnic respiratory failure. He was transferred to ICU and placed on BiPAP-subsequently was more alert. Background history: I have known Mr. Alvarez from May 2022 in pulmonary clinic initially referred for persistent left lower lobe pleural effusion/consolidation after having pneumonia in April 2022. Please chest x-rays showed left hemidiaphragm elevation in 10/09/2020. Sniff test ruled out diaphragmatic paralysis. I did flexible bronchoscopy on 06/17/2022 for left lower lobe atelectasis ruled out endobronchial lesions but have seen lot of mucopurulent secretions on both sides which were suctioned right away. There was significant mucosal edema of left lower lobe airways and biopsy of these areas were reported chronic inflammation. Suspected chronic aspiration as cause of left lower airway mucosal edema leading to atelectasis and the transudative fluid accumulation-barium swallow August 2022-showed esophageal dysmotility and potential for aspiration. Patient was referred for VATS. He underwent VATS in September 2022 and [facility]- ??- is not sure if they did pleurodesis. In August 2022-he again presented to ER after an [id number] cardiac arrest with return of spontaneous circulation-transfer to [facility]-intubated for 17 days; outside records suggest he was tested positive for COVID-treated with remdesivir and dexamethasone. He underwent cardiac catheterization with subsequent placement of 3 drug-eluting stents in the RCA. According to his , patient was significantly deconditioned during August 2022 hospital admission-still requiring significant assistance with activities of daily living. Later patient had 2 admissions in June 2023 in July 2023-hyperkalemia, evidence of acute kidney injury with hypercapnic respiratory failure requiring BiPAP. He also had A-fib with RVR and increasing volume overload. He was started on hemodialysis at that time. There was a concern for underlying acute coronary syndrome but further evaluation not pursued due to kidney dysfunction. October 2023-admitted to hospital in october 2023 for acute hypoxic respiratory failure secondary fluid overload end-stage renal disease systolic diastolic CHF exacerbation, received inpatient dialysis, overall clinically improved. For right pleural effusion S/p thoracocentesis 10/26/23: successful ultrasound- guided right thoracentesis with removal of approximately 1.1 L of straw-colored pleural fluid. For concerns for pneumonia he was managed with broad-spectrum antibiotic therapy, discharged on doxycycline. For sacral decubitus ulcer and DTI, continue repositioning, continue to monitor closely. For Miriam UTI discharged on Diflucan 11/24/2023: Patient comes to pulmonary clinic after charge follow-up. C/O chest feeling tight. reported that he is using his baseline 3 L oxygen but has a short bouts of shortness of breath due to anxiety. Chest x-ray showed worsening right pleural effusion. I recommended therapeutic thoracentesis 5 days as she took his Plavix the day before. 11/28/2023: I scheduled him as outpatient for thoracentesis of recurrent right pleural effusion. Successfully drained 1.6 L straw-colored fluid without any complications. Postthoracentesis chest x-ray showed improvement right pleural effusion. However patient continues to complain of shortness of breath which patient attributed to his anxiety and for which she was taking low-dose Xanax as needed. reported that he did not go for 2 hemodialysis sessions this week due to shortness of breath. In the postop area patient had episode of unresponsiveness-likely syncopal episode. Vitals remained stable. EKG showed mild ST-T wave depression in lead 4-6. No ST elevation. Glucose normal. ABG showed pCO2 100 and pH 7.12. He was transferred to ICU and started on BiPAP his mentation improved . He placed on AVAPS and underwent dialysis in the hospital and became more euvolemic. Patient also had an unstageable sacral ulcer with some drainage which was debrided by general surgery and he was asked to follow- up outpatient for further debridement and further care. Right pleural effusion was drained. So far during hospital stay the pleural effusion did not recur however if it does he will need to have a permanent drain placed. Also for possible NSTEMI, chest pain patient was seen by cardiology. Plan was made to manage medically. Patient's declined any further aggressive testing including a stress test at this time. 12/02/2023-day of discharge he was doing well and was back to his baseline. Patient discharged home in stable condition. 12/06/2023: Patient was brought to ER for decreased mentation. Normally wears BiPAP at home. He was sent from his dialysis center. ABG showed pH 7.03 with CO2 111. Despite this sleeping with BiPAP at home; doubt if it is dysfunctional. He was placed on BiPAP and chest x-ray showed large right pleural effusion. CODE STATUS was changed to DNR/DNI. Pulmonary consult requested for thoracentesis/Pleurx drain catheter. For recurring right pleural effusion Patient Plavix was held yesterday I have seen patient at bedside he is extremely tired, severely deconditioned and intermittently confused. ABG showed pH 7.3 0/CO2 65 Review of Systems 2 General: Reports: 10 or more systems reviewed and unremarkable except in HPI and below Medications/Allergies Home Medications Medication Instructions Recorded Confirmed Last Taken Type garlic 1,000 mg capsule 1,000 mg PO DAILY 08/31/19 12/06/23 12/04/23 History aspirin 81 mg tablet,delayed 81 mg PO BEDTIME 02/05/23 12/06/23 12/03/23 History release nitroglycerin 0.4 mg sublingual 0.4 mg sublingual Q5M PRN Chest 02/05/23 12/06/23 Unknown History tablet (Nitrostat) Pain resveratrol 100 mg capsule 100 mg PO BID 02/05/23 12/06/23 12/04/23 History Owls Boot to Right Lower Extremity #1 ea 03/24/23 12/06/23 Unknown Rx Cam Boot to the right #1 ea 03/26/23 12/06/23 Unknown Rx Vitamin B Complex Liquid See Rx Instructions .Route .COMPLEX 04/16/23 12/06/23 12/04/23 History flash glucose scanning reader 07/19/23 12/06/23 Unknown History (FreeStyle Marcial 2 [place]) fenugreek seed 610 mg capsule 610 mg PO DAILY 08/05/23 12/06/23 12/04/23 History insulin lispro 100 unit/mL See Rx Instructions .Route 10/15/23 12/06/23 12/04/23 Rx subcutaneous pen (Humalog KwikPen .COMPLEX #15 mL (U-100) Insulin) flash glucose sensor (FreeStyle #1 ea 11/07/23 12/06/23 Unknown Rx Marcial 2 Sensor kit) clopidogrel 75 mg tablet 75 mg PO BEDTIME #90 tabs 11/18/23 12/06/23 12/03/23 Rx doxycycline hyclate 100 mg capsule 100 mg PO BID 7 days #14 caps 12/02/23 12/06/23 12/06/23 Rx insulin detemir U-100 100 unit/mL 10 unit SUBCUT QAM 12/04/23 12/06/23 12/04/23 History (3 mL) subcutaneous pen (Levemir FlexPen) [place] Liquid Extract 2.5 ml PO BID 12/06/23 12/06/23 Unknown History levothyroxine 175 mcg tablet 175 mcg PO QAM 12/06/23 12/06/23 12/06/23 History metoprolol tartrate 25 mg tablet 25 mg PO Q12H PRN heart rate 12/06/23 12/06/23 Unknown History thiamine HCl (vitamin B1) 500 mg 500 mg PO DAILY 12/06/23 12/06/23 Unknown History tablet Allergies Allergy/AdvReac Type Severity Reaction Status Date / Time Penicillins Allergy Severe Throat Verified 12/06/23 10:26 swells amiodarone Allergy Unknown Verified 12/06/23 10:26 atorvastatin Allergy ADR-Muscle Verified 12/06/23 10:26 Pain azithromycin Allergy ADR/ALGY-Pa Verified 12/06/23 10:26 lpitations ciprofloxacin Allergy hallucinations Verified 12/06/23 10:26 and burning sensation in legs mirtazapine [From Remeron] Allergy ADR-Nightma Verified 12/06/23 10:26 re simvastatin Allergy ADR-Muscle Verified 12/06/23 10:26 Pain Cordarone Allergy Unknown Confusion Uncoded 12/06/23 10:26 Current Medications Generic Name Dose Route Start Last Admin Trade Name Freq PRN Reason Stop Dose Admin Aspirin 81 mg 12/06/23 21:00 12/07/23 22:51 Aspirin 81 Mg Ec Tablet PO Not Given BEDTIME [facility] Clopidogrel Bisulfate 75 mg 12/06/23 21:00 12/06/23 21:21 Clopidogrel 75 Mg Tablet PO 75 mg BEDTIME SAHARA Administration Heparin Sodium (Porcine) 5,000 unit 12/06/23 14:15 12/08/23 15:25 Heparin 5,000 Unit/Ml Inj 1 Ml SUBCUT 5,000 unit Q12H SAHARA Administration Levothyroxine Sodium 175 mcg 12/07/23 06:00 12/08/23 06:23 Levothyroxine 175 Mcg Tablet PO 175 mcg QAM SAHARA Administration PFSH Acute 2 PFSH: Medical History Peripheral arterial disease Pleural effusion Protein calorie malnutrition Atherosclerosis of coronary artery Sputum culture positive for Pseudomonas and bactrim resistant stenotrophomonas in 08/2023 from [place], prolonged ventilation COVID-19 08/2023 History of pneumothorax 07/2023 iatragenic Hypothyroidism SVT (supraventricular tachycardia) Atrial flutter does not tolerate amiodarone per ESRD on hemodialysis Hopeful that he will be able to come off of dialysis Leg wound, left Aspiration pneumonitis Pulmonary edema Dehiscence of wound 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 Atelectasis, left 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 Hyperlipidemia Diabetic peripheral neuropathy associated with type 2 diabetes mellitus Gangrenous toe CKD (chronic kidney disease) Systolic heart failure Pleural effusion, left Non-healing ulcer Ischemic cardiomyopathy Diabetic ulcer of right foot Kidney stone Amputation toe Diabetes mellitus with peripheral vascular disease HTN (hypertension) Diabetes Surgical History History of thoracentesis 08/2022, 07/2023 right pleural effusion, S/P right coronary artery (RCA) stent placement 08/2023 at [place], 3 JETT to RCA [(2) 2.5 x 38mm, (1) 2.5 x 12 mm] History of cardiac catheterization 08/2023 at [place] History of amputation of toe S/P transmetatarsal amputation of foot all toes right foor Status post amputation of toe of right foot H/O chest tube placement S/P cholecystectomy S/P tonsillectomy S/P cataract extraction Family History Father Cancer LUNG Mother CAD (coronary artery disease) Diabetes Congestive heart failure (CHF) Myocardial infarction Social History Smoking and tobacco/nicotine status: never used tobacco/nicotine Alcohol intake: never Substance/Drug Use: never Household members: spouse Marital status: Current occupational status: retired Vitals/I&O/Wt Last Vital Signs Temp 99 F 12/08/23 18:10 Pulse 107 H 12/08/23 19:25 Resp 22 H 12/08/23 18:10 BP 140/69 12/08/23 18:10 Pulse Ox 97 12/08/23 19:25 O2 Del Method Nasal Cannula 12/08/23 18:10 O2 Flow Rate 3 12/08/23 18:18 FiO2 30 12/08/23 19:25 12/08/23 12/08/23 12/08/23 06:59 14:59 22:59 Intake Total 50 / 1592.5 Balance 50 / -819.5 Weight last 48 hrs Weight 177 lb 7.554 oz Weight 177 lb 7.554 oz Weight 177 lb 7.554 oz Weight 181 lb 3.52 oz Physical Exam 2 Narrative: General: alert, extremely weak, elderly man lying in bed HEENT: conj clear, EOMI, PERRL, mmm, Neck: supple, no meningismus Heme: no cervical LAP Respiratory: Inspection: No visible deformity of the chest wall Palpation: Trachea is mildly deviated to the right, bilateral symmetric expansion Percussion: Increased dullness right lower lung zone Auscultation: Reduced breath sounds right lower lung zone Cardiovascular: rrr, nl s1s2, no mrg Abdomen: soft, nt, nd, no r/g, bs+ Extremities: pulses +, 1+ pitting pedal edema, no c/c : no CVA tenderness Skin: Sacral decubitus with significant slough at the base MSK: no back or neck pain Neurologic: grossly intact Urinary Catheter Management: Kincaid: Cath Placed During This Visit: yes Reason for Continuing Indwelling Catheter: Accurate Measurement of Urinary Output in Critically Ill Patients Urinary Catheter Date of Insertion: 11/28/23 Urinary Catheter Time of Insertion: 16:58 Data 12/08/23 05:53 12/08/23 05:53 Other Labs: Radiology Impressions Head CT 12/06/23 10:23 IMPRESSION: No acute intracranial process. Chest X-Ray 12/08/23 22:41 IMPRESSION: 1. No pneumothorax. 2. Small bilateral pleural effusions. Laboratory Results WBC 13.64 10^3/uL (3.29-11.43) H 12/08/23 05:53 RBC 3.07 10^6/uL (3.85-5.65) L 12/08/23 05:53 Hgb 9.10 g/dL (11.27-16.99) L 12/08/23 05:53 Hct 31.6 % (37-53) L 12/08/23 05:53 MCV 102.9 fl (82-101) H 12/08/23 05:53 MCH 29.6 pg (27-33) 12/08/23 05:53 MCHC 28.8 g/dL (30-55) L 12/08/23 05:53 RDW 14.8 % (12.1-15.1) 12/08/23 05:53 Plt Count 248 10^3/cmm (157-399) 12/08/23 05:53 MPV 9.6 fL (7.4-10.4) 12/08/23 05:53 Neut % (Auto) 59.9 % 12/08/23 05:53 Lymph % (Auto) 30.7 % 12/08/23 05:53 [place] % (Auto) 7.3 % 12/08/23 05:53 Eos % (Auto) 1.2 % 12/08/23 05:53 Baso % (Auto) 0.7 % 12/08/23 05:53 Neut # (Auto) 8.18 10^3/uL (1.8-7.7) H 12/08/23 05:53 Lymph # (Auto) 4.2 10^3/uL (0.8-4.8) 12/08/23 05:53 [place] # (Auto) 1.0 10^3/uL (0.2-0.9) H 12/08/23 05:53 Eos # (Auto) 0.2 10^3/uL (0.0-0.8) 12/08/23 05:53 Baso # (Auto) 0.1 10^3/uL (0.0-0.1) 12/08/23 05:53 Nucleated RBC % (auto) 0 % 12/08/23 05:53 Nucleated RBCs # 0.0 /100WBC 12/08/23 05:53 Differential Comment Yes 12/08/23 18:00 Specimen Type Arterial 12/07/23 05:00 Sample Site Radial, left 12/07/23 05:00 ABG pH 7.30 (7.35-7.45) L 12/07/23 05:00 ABG pCO2 65.3 mmHg (35-45) H* 12/07/23 05:00 ABG pO2 78.0 mmHg (80.0-100.0) L 12/07/23 05:00 ABG PO2/FiO2 Ratio 0 12/07/23 05:00 ABG HCO3 32.2 mmol/L (22-26) H 12/07/23 05:00 ABG O2 Saturation 96.5 12/07/23 05:00 ABG Base Excess 4.6 mmol/L (-2.0-2.0) H 12/07/23 05:00 Peter Test Pos 12/07/23 05:00 A-a O2 Gradient 7.4 mmHg (5-10) 12/07/23 05:00 Hematocrit 27.6 % (42-52) L 12/07/23 05:00 Hgb O2 Saturation 93.7 % (95-100) L 12/07/23 05:00 Carboxyhemoglobin 1.8 %THgb (0.4-20.1) 12/07/23 05:00 Methemoglobin 1.1 % (0.4-1.5) 12/07/23 05:00 Total Hemoglobin 9.0 g/dL (14-18) L 12/07/23 05:00 Sodium 140.0 mmol/L (131-143) 12/07/23 05:00 Potassium 5.4 mmol/L (3.5-5.0) H 12/07/23 05:00 Glucose 132.0 mg/dL (70-115) H 12/07/23 05:00 Ionized Calcium 1.2 mmol/L (1.1-1.4) 12/07/23 05:00 O2 Delivery Device Bipap 12/07/23 05:00 O2 Liters/Min 5.0 % 12/06/23 12:55 FiO2 30.0 % 12/07/23 05:00 Tidal Volume 0.45 12/07/23 05:00 PEEP 8.0 cmH20 12/07/23 05:00 Inside Sales Trainer ID [email or web address] 12/07/23 05:00 Sodium 139 mmol/L (136-145) 12/08/23 05:53 Potassium 4.3 mmol/L (3.5-5.1) 12/08/23 05:53 Chloride 98 mmol/L (98-107) 12/08/23 05:53 Carbon Dioxide 23 mmol/L (22-29) 12/08/23 05:53 Anion Gap 22.3 (5-19) H 12/08/23 05:53 BUN 24 mg/dL (8-23) H 12/08/23 05:53 Creatinine 2.4 mg/dL (0.7-1.2) H 12/08/23 05:53 GFR Calculation Not Reportable 12/08/23 05:53 Glucose 123 mg/dL (65-115) H 12/08/23 05:53 POC Glucose 171 mg/dL (70-110) H 12/08/23 22:19 Calculated Osmolality 293 mOsm/kg (285-295) 12/08/23 05:53 Lactic Acid 1.6 mmol/L (0.5-2.2) 12/06/23 10:52 Calcium 8.3 mg/dL (8.5-10.5) L 12/08/23 05:53 Magnesium 2.0 mg/dL (1.7-2.3) 12/07/23 07:02 Total Bilirubin 0.3 mg/dL (0.15-1.2) 12/08/23 05:53 AST 16 U/L (0-40) 12/08/23 05:53 ALT 7 U/L (0-41) 12/08/23 05:53 Alkaline Phosphatase 76 U/L (40-130) 12/08/23 05:53 Ammonia 90 umol/L (16-60) H 12/06/23 10:52 Troponin T Baseline 476 ng/L (0-15) H* 12/06/23 10:52 Troponin T 120 Minute 446.5 ng/L (0-15) H 12/06/23 13:20 Delta Troponin T -29.5 ABS# (0-10) L 12/06/23 13:20 Total Protein 5.8 g/dL (6.6-8.7) L 12/08/23 05:53 Albumin 3.4 g/dL (3.5-5.2) L 12/08/23 05:53 Globulin 2.4 g/dL (1.3-4.6) 12/08/23 05:53 Fluid Color Yellow 12/08/23 18:00 Fluid Appearance Clear 12/08/23 18:00 Fluid Specific Grav 1.010 12/08/23 18:00 Fluid pH 8.0 12/08/23 18:00 Fluid WBC 101 /uL 12/08/23 18:00 Fluid RBC 0 10^3/uL 12/08/23 18:00 Fld Polynuclear WBCs # 0.007 12/08/23 18:00 Fld Polynuclear WBCs % 6.900 % 12/08/23 18:00 Fl Mononucl WBCs #(Auto) 0.094 12/08/23 18:00 Fl Mononuclear % Auto 93.100 % 12/08/23 18:00 Fld Crystal Laterality Right middle upper 12/08/23 18:00 Fluid Glucose 157.0 mg/dL 12/08/23 18:00 Fluid Albumin 2.1 g/dL 12/08/23 18:00 Fluid LDH 103 U/L 12/08/23 18:00 Fluid Alk Phosphatase 20 IU/L 12/08/23 18:00 Fluid Cholesterol 46 mg/dL (0-200) 12/08/23 18:00 Fluid Triglycerides 25 mg/dL (0-150) 12/08/23 18:00 Fluid Uric Acid 4 mg/dL 12/08/23 18:00 Pleural Total Protein 3.0 g/dL 12/08/23 18:00 A&P Assessment and plan (1) Recurrent right pleural effusion: Patient had right-sided thoracentesis in October 2023 admission as well as on 11/26/2023-fluid analysis showed transudative effusion likely secondary to ESRD/heart failure Family is yet to make a decision about comfort care options. For now is DNR/DNI As patient was on Plavix until yesterday-currently followed Pleurx catheter placement instructed performed thoracentesis For thoracentesis-drained to 2 L straw-colored fluid-fluid analysis again showed transudative effusion Chest x-ray showed significant improvement in chest x-ray. (2) Acute and chronic respiratory failure with hypercapnia: Patient is severely deconditioned Large recurrent right pleural effusion, ESRD, CHF-all contributing to his hypoventilation leading to hypercapnic respiratory failure Recommended to continue BiPAP (3) Goals of care, counseling/discussion: I had a extensive goals of care discussion with and patient has 4 children- given he is repeated admissions-severe deconditioning, multiple comorbidities with ESRD dependent on hemodialysis; recurrent transudative pleural effusion contributing to his hypoventilation as well as his underlying CAD-discussed about comfort care options. Coding Level of Care Code Acute Code for Chg Fwd Diagnoses Recurrent right pleural effusion J90 Acute and chronic respiratory failure with hypercapnia J96.22 Goals of care, counseling/discussion Z71.89 Time Spent (min) 41
--- NOTE | 2023-12-08 19:30 | P.PCN_ITS ---
Procedure/Consent Time out: Time Out Performed: Yes Consent: Consent for Procedure: Consent obtained from other (indicate), Risks & Benefits reviewed and Agrees to proceed with procedure Procedure Narrative: Procedure: CPT code 64292 thoracentesis, needle or catheter, aspiration of the pleural space; with imaging guidance Indication: Worsening recurrent right pleural effusion. C56.2 Scale And Skip Car Operator(s): Wilfredo Mejía MD [facility] Clinical history: 73-year-old male with past medical history of ESRD on dialysis, recent CAD s/p 3 stents placement, has increasing shortness of breath secondary to recurrent right pleural effusion Technique: The study was performed in an ACR accredited facility. Medication reconciliation form reviewed and any changes related this procedure resolved. Report: The procedure for thoracentesis was explained to the patient including the risks, benefits and possible complications. The patient was given the opportunity to ask questions, wished to proceed, and signed the written informed consent form. Using ultrasound guidance, a safe route of access was identified into the right pleural space. The site was then prepped and draped using maximal sterile barrier technique. The 1% lidocaine was used for local anesthetic. With sonographic guidance, a 6 Maltese thoracentesis catheter was placed with return of 5 cc straw-colored pleural fluid. The catheter was slipped into the pleural cavity and approximately 1.9 L of straw-colored pleural fluid was removed and procedure aborted when patient started complaining of discomfort. Suspect there is trapped lung physiology. The patient tolerated the procedure well and postprocedure chest x-ray did not show any pneumothorax. However patient is extremely weak and continues to have dyspnea which did not improve after thoracentesis. Impression: 1. Successful ultrasound-guided right t horacentesis with removal of approximately 1.9 L of straw-colored pleural fluid. ICD-10 code-J90 pleural effusion, not elsewhere classified Acute Procedures Epistaxis Control: Time out performed: Yes
[2023-12-08 20:38] LABS: Apprearance, Body Fluid CLEAR; Color, Body Fluid YELLOW
[2023-12-08 20:39] LABS: Cyto Order Verification No Order; PATH Referral YES
--- NOTE | 2023-12-08 20:41 | PC.NURSE ---
Per Dr. Leyva keep pt NPO until speech eval due to pt high aspiration
[2023-12-08 21:10] LABS: Albumin Body Fluid 2.1 g/dL; Cholesterol Body Fluid 46 mg/dL (0-200); LDH Body Fluid 103 U/L
[2023-12-08 21:11] LABS: Body Fluid Polynuclear #Cells 0.007; Body Fluid WBC 101 /uL; Fluid Alkaline Phos. 20 IU/L; Monocytes # Body Fluid 0.094; RBC, Body Fluid 0 10^3/uL; Triglycerides Body Fluid 25 mg/dL (0-150); Uric Acid Body Fluid 4 mg/dL
--- NOTE | 2023-12-08 22:37 | ECG_ITS ---
[facility] Test Date: 2023-12-08 Pat Name: Usman Alvarez Department: Room: 253 Gender: Male Managed Services Consultant: : 1950 Requested By: Vitaly Leyva Order Number: [id number] Diandra MD: Harry Bryant M.D. Measurements Intervals [place] Rate: 133 P: 42 SD: 169 QRS: 42 QRSD: 110 T: -27 QT: 309 QTc: 460 Interpretive Statements SINUS TACHYCARDIA POSSIBLE RIGHT VENTRICULAR CONDUCTION DELAY [RSR (QR) IN V1/V2] ST DEVIATION AND MODERATE T-WAVE ABNORMALITY, CONSIDER LATERAL ISCHEMIA [-0.1+ mV T-WAVE IN I/aVL/V5/V6] ST DEVIATION AND MODERATE T-WAVE ABNORMALITY, CONSIDER INFERIOR ISCHEMIA [-0.1+ mV T-WAVE IN II/aVF] Compared to ECG 12/06/2023 10:45:37 No significant changes Electronically Signed On 12-08-2023 23:20:59 CDT by Harry Bryant M.D. [id number]
--- NOTE | 2023-12-08 22:41 | XRR_ITS ---
PROCEDURE INFORMATION: Exam: XR Chest Exam date and time: 12/08/2023 10:45 PM Age: 73 years old Clinical indication: Shortness of breath; Additional info: Post thoracenthesis TECHNIQUE: Imaging protocol: Radiologic exam of the chest. Views: 1 view. COMPARISON: CR (CHEST, ) 12/08/2023 6:15 PM FINDINGS: Tubes, catheters and devices: Right IJ approach central venous catheter positioned with its tip near the upper cavoatrial junction. Lungs: Unremarkable. No consolidation. Pleural spaces: Small bilateral pleural effusions. Heart/Mediastinum: Unremarkable. No cardiomegaly. Bones/joints: Unremarkable. XR/XR chest 1V portable [id number] IMPRESSION: 1. No pneumothorax. 2. Small bilateral pleural effusions.
[2023-12-08 22:45] LABS: Glucose Point of Care 171 mg/dL (70-110)
[2023-12-08 23:28] LABS: Fluid Laterality Right Middle Upper
--- NOTE | 2023-12-09 00:20 | PC.NURSE ---
pt family refused blood draw
--- NOTE | 2023-12-09 00:31 | ECG_ITS ---
[facility] Test Date: 2023-12-09 Pat Name: Usman Alvarez Department: Room: 253 Gender: Male Vice President Digital Strategist: : 1950 Requested By: Wilfredo Vogel Order Number: [id number] Diandra MD: Lito Louis M.D. Measurements Intervals [place] Rate: 157 P: 0 MI: 0 QRS: 52 QRSD: 112 T: 239 QT: 296 QTc: 478 Interpretive Statements ATRIAL FIBRILLATION WITH RAPID VENTRICULAR RESPONSE POSSIBLE RIGHT VENTRICULAR CONDUCTION DELAY [RSR (QR) IN V1/V2] ST DEVIATION AND MODERATE T-WAVE ABNORMALITY, CONSIDER ANTEROLATERAL ISCHEMIA [-0.1+ mV T-WAVE IN V3-V6] ST DEVIATION AND MODERATE T-WAVE ABNORMALITY, CONSIDER INFERIOR ISCHEMIA [-0.1+ mV T-WAVE IN II/aVF] CRITICAL TEST RESULT Compared to ECG 12/08/2023 22:41:40 Sinus tachycardia no longer present T-wave abnormality still present Possible ischemia still present Electronically Signed On 12-09-2023 23:02:22 CDT by Lito Louis M.D. [id number]
--- NOTE | 2023-12-09 01:22 | PC.NURSE ---
Dr Leyva at bedside with and several other family members. Additional treatments options discussed. Pt and family ultimately decided to transition pt to [facility].
--- NOTE | 2023-12-09 01:22 | PM.CCNAC ---
Critical Care Event Note The high probability of a clinically significant, sudden or life threatening deterioration of the patient's [] system(s) required my full and direct attention, intervention and personal management. The critical care time is as shown. This time is in addition to time spent performing any reported procedures but includes the following: [x] Data and vital sign review and interpretation [x] Patient assessment, examination and intervention [x] Documentation [x] Medication orders and management Critical Care Time Code activated: No Critical Care Time (min): 35 Additional information about critical care time: Evening, nursing staff had reported that patient looked more lethargic, heart rates into the 120s, -EKG at that time showed sinus tachycardia, -I had asked the nursing staff to order CBC, CMP, chest x-ray, however patient's refused ? Later on patient's heart rates and went into the 170s, A-fib with RVR, I requested patient to move down to cardiac stepdown unit for amiodarone drip, with amiodarone push however patient's refused, due to concerns for adverse reaction to amiodarone, switched patient to Cardizem drip however patient's refused Cardizem drip ? Spoke to nursing staff, patient's family wants patient to stay on MedSurg, currently heart rates in the 140s A-fib with RVR ? Seen on telemetry heart rates in 140s, on BiPAP at 40%, nonresponsive, having intermittent costal retraction suprasternal retractions, nasal flaring, and moderate respiratory distress ? Likely patient is in acute flash pulm edema, acute CHF exacerbation, with fluid overload with A-fib with RVR, with acute hypoxic respiratory failure, with acute encephalopathy, he is a DNR/DNI ? Had a detailed discussion with patient's family, patient has a recent history of cardiac arrest status post CPR in early August, history of recent cardiac stenting, end-stage renal disease recently started on hemodialysis, he is in a deconditioned state chronically, when he arrived here he was in severe acidemia, with acute respiratory failure, with recurrent pleural effusion, severe deconditioning, protein, malnutrition, he has had multiple hospitalizations in the last few months, overall his prognosis is poor, status is critical ? Patient's tells me that this morning, he he has told her that he is done, that he is tired, he is tired to fight with every breath ? Options I discussed was continued medical intervention, moving him down to CSU starting him on Cardizem drip, potentially dialyzing him further tonight, as he as he continues to be in A-fib with RVR, he will develop worsening flash pulm edema, NSTEMI, respiratory failure, morbidity and mortality associated and suffering associated, if I do not start treatment on him now, I am worried that he will suffer because of the complications such as flash pulm edema, pulm edema, heart rates in the 170s, NSTEMI ? Other options I discussed was was what family was alluding to, they just want him to be comfortable, they do want him to suffer, they do not want aggressive inventions, they do not want him to continue on this revolving door of hospitalizations, and recurrence of his fluid overload A-fib, they just want him to be comfortable rest to ease his pain and ease his suffering ? Had a detailed discussion with the patient's family patient's patient's daughters at bedside about what comfort care entails which is easing his pain, easing his suffering, but not hastening his , but allowing him to be comfortable, and allowing him to pass away comfortably ? We discussed comfort care, discussed risk and benefits, they voiced understanding, all consents are, agreed to proceed, will start morphine for air hunger, ? Currently he is on BiPAP, family wants him to be on BiPAP for now, as he appears more comfortable on BiPAP, but did advise family that we could put him on simple nasal cannula as the BiPAP can make him more claustrophobic, but for now they want to keep keep him on BiPAP as he appears more comfortable on it, but if he starts becoming agitated or ripping off the BiPAP they are okay with nasal cannula ? Will start comfort care order set, Coding Level of Care Code Acute Code for Abdirizak Zhou
--- NOTE | 2023-12-09 02:06 | PC.NURSE ---
Patient's heart rate up to 170. EKG taken. Dr. Leyva notified. Order to transfer patient to CSU. Family refusing to have patient transferred. Dr. Leyva up to see patient and speak with family. Comfort cares measures ordered. Patient to stay on Med-Surg.
[2023-12-09 02:19] VITALS: RESP 28; O2SAT 94
[2023-12-09] MEDS: morphine 4 mg/mL SDV 1 mL IVP ×4 (02:19→16:04)
[2023-12-09 05:51] VITALS: PULSE 132
[2023-12-09 08:00] VITALS: BP 95/60; PULSE 112; RESP 10
--- NOTE | 2023-12-09 11:47 | P.PN_ITS ---
Subjective 2 Subjective: seen this am overnight events noted pt appears to be comfortable at bedside now on comfort measures Vitals/I&O/Wt Last Vital Signs Temp 98.9 F 12/08/23 19:54 Pulse 112 H 12/09/23 08:00 Resp 10 L 12/09/23 08:00 BP 95/60 12/09/23 08:00 Pulse Ox 94 12/09/23 02:19 O2 Del Method BiPAP 12/08/23 19:54 O2 Flow Rate 3 12/09/23 08:00 FiO2 40 12/08/23 23:00 Weight last 48 hrs Weight 80.5 kg Weight 80.5 kg Weight 80.5 kg Physical Exam 2 Narrative: General exam demonstrates a white male, chronically ill-appearing, unresponsive, on 2L NC. Cardiovascular RRR Dialysis catheter noted right chest Lungs diminished breath sounds bilaterally right greater than left. Abdomen is soft, positive bowel sounds. Extremities edema bilaterally which is chronic. Limited exam due to comfort care status Data 12/08/23 05:53 12/08/23 05:53 A&P Assessment and plan (1) Elevated troponin I level: (2) Atherosclerosis of coronary artery: Qualifiers: Coronary Disease-Associated Artery/Lesion type: [place] artery [place] vs. transplanted heart: [place] heart Associated angina: without angina Qualified Code(s): I25.10 - Atherosclerotic heart disease of [place] coronary artery without angina pectoris (3) Diabetes: Qualifiers: Diabetes mellitus type: type 2 Diabetes mellitus middle or intermediate school principal insulin use: with chcf use Diabetes mellitus complication status: with kidney complications Diabetes mellitus complication detail: with chronic kidney disease Chronic kidney disease stage: stage 5, not on chronic dialysis Qualified Code(s): E11.22 - Type 2 diabetes mellitus with diabetic chronic kidney disease; N18.5 - Chronic kidney disease, stage 5; Z79.4 - care home (current) use of insulin (4) CKD (chronic kidney disease): Qualifiers: Chronic kidney disease stage: on chronic dialysis Qualified Code(s): N 18.6 - End stage renal disease; Z99.2 - Dependence on renal dialysis (5) Pressure injury of sacral region, unstageable: (6) Sacral decubitus ulcer, stage IV: (7) Peripheral neuropathy: (8) Syncope: (9) End-stage renal disease on hemodialysis: (10) NSTEMI (non-ST elevated myocardial infarction): Plan #COMFORT MEASURES # Acute hypercarbic on chronic hypercarbic respiratory failure #Metabolic encephalopathy #CAD status post PCI x 4 stents #Syncope after dialysis #Elevated troponin, NSTEMI #Sacral decubitus ulcer #Recurrent pleural effusion with recent thoracentesis #Diabetes mellitus, insulin-dependent #Hypothyroidism ? Continue aspirin, Plavix, metoprolol tartrate, levothyroxine ? Elevated troponin NSTEMI most likely secondary to renal disease. Type II demand ischemia ? Continue treatment for UTI as per previous admission. - pt has completed 7 days of meropenem. Stop antibiotics at this point. ? Repeat chest x-ray today shows large right pleural effusion. ? Will consult nephrology for dialysis. ? Will order thoracentesis for therapeutic purposes. Hold plavix. consult pulm for possible drain placement ? Palliative care/hospice was suggested to baseline at previous discharge. - Continue bipap as needed Patient is now comfort measures in accordance with family's wishes. He appears comfortable. DNR/DNI ? DVT prophylaxis: NONE Patient does carry a risk of multiple admissions secondary to chronic issues. Attestations 2 Medical Necessity Statement*: Comfort measures Diagnoses Elevated troponin I level R79.89 Atherosclerosis of [place] coronary artery of [place] heart without angina pectoris I25.10 Coronary Disease-Associated Artery/Lesion type: [place] artery [place] vs. transplanted heart: [place] heart Associated angina: without angina Type 2 diabetes mellitus with stage 5 chronic kidney disease not on chronic dialysis, with long-term current use of insulin E11.22; N18.5; Z79.4 Diabetes mellitus type: type 2 Diabetes mellitus middle or intermediate school principal insulin use: with middle or intermediate school principal use Diabetes mellitus complication status: with kidney complications Diabetes mellitus complication detail: with chronic kidney disease Chronic kidney disease stage: stage 5, not on chronic dialysis Stage 5 chronic kidney disease on chronic dialysis N18.6; Z99.2 Chronic kidney disease stage: on chronic dialysis Pressure injury of sacral region, unstageable L89.150 Sacral decubitus ulcer, stage IV L89.154 Peripheral neuropathy G62.9 Syncope R55 End-stage renal disease on hemodialysis N18.6; Z99.2 NSTEMI (non-ST elevated myocardial infarction) I21.4
[2023-12-09 12:54] VITALS: RESP 20
[2023-12-09 16:04] VITALS: RESP 12
[2023-12-09 18:08] VITALS: RESP 8
--- NOTE | 2023-12-09 19:21 | PC.NURSE ---
Patient pronounced at 191 by this nurse and Sugar Vicente RN. Twist Tester notified.
--- NOTE | 2023-12-09 20:19 | PC.NURSE ---
EFRAÍN John is candidate for [facility] donation. Ref # [id number]
--- NOTE | 2023-12-09 20:41 | PM.DDS ---
Discharge Providers DDS Date of Admission: 12/06/23 15:59 Date Summary Completed: 12/14/23 Attending Provider at Admission: Arnulfo Frances MD Attending Provider at Discharge: Kia Moreno MD Primary Care Provider: Evelin Jenkins DO DS Diagnoses Hospital Diagnoses (1) Acute and chronic respiratory failure with hypercapnia: (2) Goals of care, counseling/discussion: Reason for Visit Reason for Visit AMS Summary Summary Summary: Comfort measures 12/09/2023 at 1918 Additional Data Family: at bedside Advance directives?: No Discharge Plan Discharge Patient Disposition: Condition: Stable Probable Cause of Probable cause of : Renal failure DS Attestations Time Spent in /Discharge Care*: less than 30 min Quality - AMI: AMI present?: No Quality - Stroke: CVA present?: No Quality - VTE: VTE present?: No Coding Level of Care Code 17457 Diagnoses Acute and chronic respiratory failure with hypercapnia J96.22 Goals of care, counseling/discussion Z71.89
--- NOTE | 2023-12-09 23:15 | P.PN_ITS ---
Subjective 2 Subjective: Overnight patient went into A-fib RVR- Family decided to go for withdrawal of care Patient is lying on bed in no respiratory distress-family at bedside Patient is on morphine as needed for respiratory distress Medications: Reviewed: Yes Vitals/I&O/Wt Last Vital Signs Temp 98.9 F 12/08/23 19:54 Pulse 112 H 12/09/23 08:00 Resp 8 L 12/09/23 18:08 BP 95/60 12/09/23 08:00 Pulse Ox 94 12/09/23 02:19 O2 Del Method BiPAP 12/08/23 19:54 O2 Flow Rate 3 12/09/23 08:00 FiO2 40 12/08/23 23:00 Weight last 48 hrs Weight 177 lb 7.554 oz Weight 177 lb 7.554 oz Data 12/08/23 05:53 12/08/23 05:53 Micro: Microbiology 12/08/23 18:00 Gram Stain - Final Pleural Fluid A&P Assessment and plan (1) Acute and chronic respiratory failure with hypercapnia: Family decided to go for withdrawal of care Currently on morphine as needed for respiratory distress (2) Goals of care, counseling/discussion: Attestations 2 Medical Necessity Statement*: Patient is comfort care Coding Level of Care Code Acute Code for Chg Fwd Diagnoses Acute and chronic respiratory failure with hypercapnia J96.22 Goals of care, counseling/discussion Z71.89 Time Spent (min) 21
--- NOTE | 2023-12-09 23:46 | PC.NURSE ---
[place] time: 2405
--- NOTE | 2023-12-10 00:45 | PC.NURSE ---
loss prevention supervisor [place] [facility] [place].
--- NOTE | 2023-12-10 12:33 | P.DS_ITS ---
Discharge Providers Date of Admission: 12/06/23 15:59 Date of Discharge: December 10, 2023 Attending Provider at Admission: Arnulfo Frances MD Attending Provider at Discharge: Kia Moreno MD Primary Care Provider: Evelin Jenkins DO Diagnoses at Discharge Discharge Diagnosis (1) Elevated troponin I level: Status: Acute (2) Atherosclerosis of coronary artery: Status: Chronic Qualifiers: Coronary Disease-Associated Artery/Lesion type: [place] artery [place] vs. transplanted heart: [place] heart Associated angina: without angina Qualified Code(s): I25.10 - Atherosclerotic heart disease of [place] coronary artery without angina pectoris (3) Diabetes: Status: Chronic Qualifiers: Diabetes mellitus type: type 2 Diabetes mellitus terminal worker insulin use: with terminal worker use Diabetes mellitus complication status: with kidney complications Diabetes mellitus complication detail: with chronic kidney disease Chronic kidney disease stage: stage 5, not on chronic dialysis Qualified Code(s): E11.22 - Type 2 diabetes mellitus with diabetic chronic kidney disease; N18.5 - Chronic kidney disease, stage 5; Z79.4 - [facility] (current) use of insulin (4) CKD (chronic kidney disease): Status: Chronic Qualifiers: Chronic kidney disease stage: on chronic dialysis Qualified Code(s): N18.6 - End stage renal disease; Z99.2 - Dependence on renal dialysis (5) Pressure injury of sacral region, unstageable: Status: Acute (6) Sacral decubitus ulcer, stage IV: Status: Acute (7) Peripheral neuropathy: Status: Acute (8) Syncope: Status: Acute (9) End-stage renal disease on hemodialysis: Status: Acute (10) NSTEMI (non-ST elevated myocardial infarction): Status: Resolved Reason for Visit Reason for Visit: [facility] Hospital Course Hospital Course patient on comfort measures, time of 19:19 please see progress notes for details proposal writer not on shift when pt passed. Discharge Data Studies Completed and Pending Completed Studies During Hospitalization Category Date Time Status CT head wo con* [id number] Stat Cat Scan 12/06/23 10:23 Completed XR chest 1V [id number] Stat Exams 12/06/23 10:23 Completed XR chest 1V portable [id number] Stat Exams 12/08/23 07:58 Completed XR chest 1V portable [id number] Stat Exams 12/08/23 17:58 Completed XR chest 1V portable [id number] Stat Exams 12/08/23 22:41 Completed Pending at discharge Category Date Time Status Amylase, Peritoneal Fluid Routine Lab 12/08/23 18:00 Received Amylase, Pleural Fluid Routine Lab 12/08/23 18:00 Received Anaerobic Culture Routine Lab 12/08/23 18:00 Results Blood Culture Stat Lab 12/06/23 11:27 Results Body Fluid Culture & GS Routine Lab 12/08/23 18:00 Results Mycobacteria, Culture w/Fluor Routine Lab 12/08/23 18:00 Received Radiology Impressions Head CT 12/06/23 10:23 IMPRESSION: No acute intracranial process. Chest X-Ray 12/08/23 22:41 IMPRESSION: 1. No pneumothorax. 2. Small bilateral pleural effusions. Laboratory Results WBC 13.64 10^3/uL (3.29-11.43) H 12/08/23 05:53 RBC 3.07 10^6/uL (3.85-5.65) L 12/08/23 05:53 Hgb 9.10 g/dL (11.27-16.99) L 12/08/23 05:53 Hct 31.6 % (37-53) L 12/08/23 05:53 MCV 102.9 fl (82-101) H 12/08/23 05:53 MCH 29.6 pg (27-33) 12/08/23 05:53 MCHC 28.8 g/dL (30-55) L 12/08/23 05:53 RDW 14.8 % (12.1-15.1) 12/08/23 05:53 Plt Count 248 10^3/cmm (157-399) 12/08/23 05:53 MPV 9.6 fL (7.4-10.4) 12/08/23 05:53 Neut % (Auto) 59.9 % 12/08/23 05:53 Lymph % (Auto) 30.7 % 12/08/23 05:53 [place] % (Auto) 7.3 % 12/08/23 05:53 Eos % (Auto) 1.2 % 12/08/23 05:53 Baso % (Auto) 0.7 % 12/08/23 05:53 Neut # (Auto) 8.18 10^3/uL (1.8-7.7) H 12/08/23 05:53 Lymph # (Auto) 4.2 10^3/uL (0.8-4.8) 12/08/23 05:53 [place] # (Auto) 1.0 10^3/uL (0.2-0.9) H 12/08/23 05:53 Eos # (Auto) 0.2 10^3/uL (0.0-0.8) 12/08/23 05:53 Baso # (Auto) 0.1 10^3/uL (0.0-0.1) 12/08/23 05:53 Nucleated RBC % (auto) 0 % 12/08/23 05:53 Nucleated RBCs # 0.0 /100WBC 12/08/23 05:53 Differential Comment Yes 12/08/23 18:00 Specimen Type Arterial 12/07/23 05:00 Sample Site Radial, left 12/07/23 05:00 ABG pH 7.30 (7.35-7.45) L 12/07/23 05:00 ABG pCO2 65.3 mmHg (35-45) H* 12/07/23 05:00 ABG pO2 78.0 mmHg (80.0-100.0) L 12/07/23 05:00 ABG PO2/FiO2 Ratio 0 12/07/23 05:00 ABG HCO3 32.2 mmol/L (22-26) H 12/07/23 05:00 ABG O2 Saturation 96.5 12/07/23 05:00 ABG Base Excess 4.6 mmol/L (-2.0-2.0) H 12/07/23 05:00 Peter Test Pos 12/07/23 05:00 A-a O2 Gradient 7.4 mmHg (5-10) 12/07/23 05:00 Hematocrit 27.6 % (42-52) L 12/07/23 05:00 Hgb O2 Saturation 93.7 % (95-100) L 12/07/23 05:00 Carboxyhemoglobin 1.8 %THgb (0.4-20.1) 12/07/23 05:00 Methemoglobin 1.1 % (0.4-1.5) 12/07/23 05:00 Total Hemoglobin 9.0 g/dL (14-18) L 12/07/23 05:00 Sodium 140.0 mmol/L (131-143) 12/07/23 05:00 Potassium 5.4 mmol/L (3.5-5.0) H 12/07/23 05:00 Glucose 132.0 mg/dL (70-115) H 12/07/23 05:00 Ionized Calcium 1.2 mmol/L (1.1-1.4) 12/07/23 05:00 O2 Delivery Device Bipap 12/07/23 05:00 O2 Liters/Min 5.0 % 12/06/23 12:55 FiO2 30.0 % 12/07/23 05:00 Tidal Volume 0.45 12/07/23 05:00 PEEP 8.0 cmH20 12/07/23 05:00 Infrastructure Solutions Architect ID [email or web address] 12/07/23 05:00 Sodium 139 mmol/L (136-145) 12/08/23 05:53 Potassium 4.3 mmol/L (3.5-5.1) 12/08/23 05:53 Chloride 98 mmol/L (98-107) 12/08/23 05:53 Carbon Dioxide 23 mmol/L (22-29) 12/08/23 05:53 Anion Gap 22.3 (5-19) H 12/08/23 05:53 BUN 24 mg/dL (8-23) H 12/08/23 05:53 Creatinine 2.4 mg/dL (0.7-1.2) H 12/08/23 05:53 GFR Calculation Not Reportable 12/08/23 05:53 Glucose 123 mg/dL (65-115) H 12/08/23 05:53 POC Glucose 171 mg/dL (70-110) H 12/08/23 22:19 Calculated Osmolality 293 mOsm/kg (285-295) 12/08/23 05:53 Lactic Acid 1.6 mmol/L (0.5-2.2) 12/06/23 10:52 Calcium 8.3 mg/dL (8.5-10.5) L 12/08/23 05:53 Magnesium 2.0 mg/dL (1.7-2.3) 12/07/23 07:02 Total Bilirubin 0.3 mg/dL (0.15-1.2) 12/08/23 05:53 AST 16 U/L (0-40) 12/08/23 05:53 ALT 7 U/L (0-41) 12/08/23 05:53 Alkaline Phosphatase 76 U/L (40-130) 12/08/23 05:53 Ammonia 90 umol/L (16-60) H 12/06/23 10:52 Troponin T Baseline 476 ng/L (0-15) H* 12/06/23 10:52 Troponin T 120 Minute 446.5 ng/L (0-15) H 12/06/23 13:20 Delta Troponin T -29.5 ABS# (0-10) L 12/06/23 13:20 Total Protein 5.8 g/dL (6.6-8.7) L 12/08/23 05:53 Albumin 3.4 g/dL (3.5-5.2) L 12/08/23 05:53 Globulin 2.4 g/dL (1.3-4.6) 12/08/23 05:53 Fluid Color Yellow 12/08/23 18:00 Fluid Appearance Clear 12/08/23 18:00 Fluid Specific Grav 1.010 12/08/23 18:00 Fluid pH 8.0 12/08/23 18:00 Fluid WBC 101 /uL 12/08/23 18:00 Fluid RBC 0 10^3/uL 12/08/23 18:00 Fld Polynuclear WBCs # 0.007 12/08/23 18:00 Fld Polynuclear WBCs % 6.900 % 12/08/23 18:00 Fl Mononucl WBCs #(Auto) 0.094 12/08/23 18:00 Fl Mononuclear % Auto 93.100 % 12/08/23 18:00 Fld Crystal Laterality Right middle upper 12/08/23 18:00 Fluid Glucose 157.0 mg/dL 12/08/23 18:00 Fluid Albumin 2.1 g/dL 12/08/23 18:00 Fluid LDH 103 U/L 12/08/23 18:00 Fluid Alk Phosphatase 20 IU/L 12/08/23 18:00 Fluid Cholesterol 46 mg/dL (0-200) 12/08/23 18:00 Fluid Triglycerides 25 mg/dL (0-150) 12/08/23 18:00 Fluid Uric Acid 4 mg/dL 12/08/23 18:00 Pleural Total Protein 3.0 g/dL 12/08/23 18:00 Vitals Last Vital Signs Temp 98.9 F 12/08/23 19:54 Pulse 112 H 12/09/23 08:00 Resp 8 L 12/09/23 18:08 BP 95/60 12/09/23 08:00 Pulse Ox 94 12/09/23 02:19 O2 Del Method BiPAP 12/08/23 19:54 O2 Flow Rate 3 12/09/23 08:00 FiO2 40 12/08/23 23:00 Discharge Plan Discharge Patient Disposition: Condition: Stable Discharge Attestations Time Spent in Discharge Care*: less than 30 min Status at Discharge: Cognitive status at discharge: cognitively intact , Behavioral status at discharge: cooperative , Quality Metrics Clinical Quality Measures [ No reported AMI, CVA or VTE this stay] Coding Level of Care Code 14444 Total time (in minutes) for Discharge: 30 Diagnoses Elevated troponin I level R79.89 Atherosclerosis of [place] coronary artery of [place] heart without angina pectoris I25.10 Coronary Disease-Associated Artery/Lesion type: [place] artery [place] vs. transplanted heart: [place] heart Associated angina: without angina Type 2 diabetes mellitus with stage 5 chronic kidney disease not on chronic dialysis, with long-term current use of insulin E11.22; N18.5; Z79.4 Diabetes mellitus type: type 2 Diabetes mellitus terminal worker insulin use: with retirement use Diabetes mellitus complication status: with kidney complications Diabetes mellitus complication detail: with chronic kidney disease Chronic kidney disease stage: stage 5, not on chronic dialysis Stage 5 chronic kidney disease on chronic dialysis N18.6; Z99.2 Chronic kidney disease stage: on chronic dialysis Pressure injury of sacral region, unstageable L89.150 Sacral decubitus ulcer, stage IV L89.154 Peripheral neuropathy G62.9 Syncope R55 End-stage renal disease on hemodialysis N18.6; Z99.2 NSTEMI (non-ST elevated myocardial infarction) I21.4
--- NOTE | 2023-12-10 13:11 | P.DS_ITS ---
Discharge Providers Date of Admission: 12/04/23 15:59 Date of Discharge: December 05, 2023 Attending Provider at Admission: Arnulfo Frances MD Attending Provider at Discharge: Kia Moreno MD Primary Care Provider: Evelin Jenkins DO Diagnoses at Discharge Discharge Diagnosis (1) Elevated troponin I level: Status: Acute (2) Atherosclerosis of coronary artery: Status: Chronic Qualifiers: Coronary Disease-Associated Artery/Lesion type: [place] artery [place] vs. 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: with long chain dyeing machine operator use Diabetes mellitus complication status: with kidney complications Diabetes mellitus complication detail: with chronic kidney disease Chronic kidney disease stage: stage 5, not on chronic dialysis Qualified Code(s): E11.22 - Type 2 diabetes mellitus with diabetic chronic kidney disease; N18.5 - Chronic kidney disease, stage 5; Z79.4 - shelter (current) use of insulin (4) CKD (chronic kidney disease): Status: Chronic Qualifiers: Chronic kidney disease stage: on chronic dialysis Qualified Code(s): N18.6 - End stage renal disease; Z99.2 - Dependence on renal dialysis (5) Pressure injury of sacral region, unstageable: Status: Acute (6) Sacral decubitus ulcer, stage IV: Status: Acute (7) Peripheral neuropathy: Status: Acute (8) Syncope: Status: Acute (9) End-stage renal disease on hemodialysis: Status: Acute (10) NSTEMI (non-ST elevated myocardial infarction): Status: Resolved Reason for Visit Reason for Visit: [facility] Hospital Course Hospital Course Patient was admitted for syncope. Ruled in for NSTEMI. Heparin drip was started. Cardiology was consulted. Patient's and patient did not want to pursue any further management at this time. Next day patient was discharged hanna with medical management. Did recommend palliative care/hospice to the patient. They will be seeing their primary care today to discuss the above. Physical Exam Narrative: General exam demonstrates a white male, chronically ill-appearing. No conversational dyspnea however does appear very slightly short of breath which is chronic for him. Cardiovascular not tachycardic, regular. Dialysis catheter noted right chest Lungs diminished breath sounds bilaterally right greater than left. No crackles . No wheezes Abdomen is soft, positive bowel sounds. No obvious organomegaly Extremities 2+ edema bilaterally. No cyanosis or clubbing. Neuro: No focal deficits Discharge Data Studies Completed and Pending Completed Studies During Hospitalization Category Date Time Status CT head wo con* [id number] Stat Cat Scan 12/06/23 10:23 Completed XR chest 1V [id number] Stat Exams 12/06/23 10:23 Completed XR chest 1V portable [id number] Stat Exams 12/08/23 07:58 Completed XR chest 1V portable [id number] Stat Exams 12/08/23 17:58 Completed XR chest 1V portable [id number] Stat Exams 12/08/23 22:41 Completed Pending at discharge Category Date Time Status Amylase, Peritoneal Fluid Routine Lab 12/08/23 18:00 Received Amylase, Pleural Fluid Routine Lab 12/08/23 18:00 Received Anaerobic Culture Routine Lab 12/08/23 18:00 Results Blood Culture Stat Lab 12/06/23 11:27 Results Body Fluid Culture & GS Routine Lab 12/08/23 18:00 Results Mycobacteria, Culture w/Fluor Routine Lab 12/08/23 18:00 Received Radiology Impressions Head CT 12/06/23 10:23 IMPRESSION: No acute intracranial process. Chest X-Ray 12/08/23 22:41 IMPRESSION: 1. No pneumothorax. 2. Small bilateral pleural effusions. Laboratory Results WBC 13.64 10^3/uL (3.29-11.43) H 12/08/23 05:53 RBC 3.07 10^6/uL (3.85-5.65) L 12/08/23 05:53 Hgb 9.10 g/dL (11.27-16.99) L 12/08/23 05:53 Hct 31.6 % (37-53) L 12/08/23 05:53 MCV 102.9 fl (82-101) H 12/08/23 05:53 MCH 29.6 pg (27-33) 12/08/23 05:53 MCHC 28.8 g/dL (30-55) L 12/08/23 05:53 RDW 14.8 % (12.1-15.1) 12/08/23 05:53 Plt Count 248 10^3/cmm (157-399) 12/08/23 05:53 MPV 9.6 fL (7.4-10.4) 12/08/23 05:53 Neut % (Auto) 59.9 % 12/08/23 05:53 Lymph % (Auto) 30.7 % 12/08/23 05:53 [place] % (Auto) 7.3 % 12/08/23 05:53 Eos % (Auto) 1.2 % 12/08/23 05:53 Baso % (Auto) 0.7 % 12/08/23 05:53 Neut # (Auto) 8.18 10^3/uL (1.8-7.7) H 12/08/23 05:53 Lymph # (Auto) 4.2 10^3/uL (0.8-4.8) 12/08/23 05:53 [place] # (Auto) 1.0 10^3/uL (0.2-0.9) H 12/08/23 05:53 Eos # (Auto) 0.2 10^3/uL (0.0-0.8) 12/08/23 05:53 Baso # (Auto) 0.1 10^3/uL (0.0-0.1) 12/08/23 05:53 Nucleated RBC % (auto) 0 % 12/08/23 05:53 Nucleated RBCs # 0.0 /100WBC 12/08/23 05:53 Differential Comment Yes 12/08/23 18:00 Specimen Type Arterial 12/07/23 05:00 Sample Site Radial, left 12/07/23 05:00 ABG pH 7.30 (7.35-7.45) L 12/07/23 05:00 ABG pCO2 65.3 mmHg (35-45) H* 12/07/23 05:00 ABG pO2 78.0 mmHg (80.0-100.0) L 12/07/23 05:00 ABG PO2/FiO2 Ratio 0 12/07/23 05:00 ABG HCO3 32.2 mmol/L (22-26) H 12/07/23 05:00 ABG O2 Saturation 96.5 12/07/23 05:00 ABG Base Excess 4.6 mmol/L (-2.0-2.0) H 12/07/23 05:00 Peter Test Pos 12/07/23 05:00 A-a O2 Gradient 7.4 mmHg (5-10) 12/07/23 05:00 Hematocrit 27.6 % (42-52) L 12/07/23 05:00 Hgb O2 Saturation 93.7 % (95-100) L 12/07/23 05:00 Carboxyhemoglobin 1.8 %THgb (0.4-20.1) 12/07/23 05:00 Methemoglobin 1.1 % (0.4-1.5) 12/07/23 05:00 Total Hemoglobin 9.0 g/dL (14-18) L 12/07/23 05:00 Sodium 140.0 mmol/L (131-143) 12/07/23 05:00 Potassium 5.4 mmol/L (3.5-5.0) H 12/07/23 05:00 Glucose 132.0 mg/dL (70-115) H 12/07/23 05:00 Ionized Calcium 1.2 mmol/L (1.1-1.4) 12/07/23 05:00 O2 Delivery Device Bipap 12/07/23 05:00 O2 Liters/Min 5.0 % 12/06/23 12:55 FiO2 30.0 % 12/07/23 05:00 Tidal Volume 0.45 12/07/23 05:00 PEEP 8.0 cmH20 12/07/23 05:00 Cnc Lathe Machine Operator ID [email or web address] 12/07/23 05:00 Sodium 139 mmol/L (136-145) 12/08/23 05:53 Potassium 4.3 mmol/L (3.5-5.1) 12/08/23 05:53 Chloride 98 mmol/L (98-107) 12/08/23 05:53 Carbon Dioxide 23 mmol/L (22-29) 12/08/23 05:53 Anion Gap 22.3 (5-19) H 12/08/23 05:53 BUN 24 mg/dL (8-23) H 12/08/23 05:53 Creatinine 2.4 mg/dL (0.7-1.2) H 12/08/23 05:53 GFR Calculation Not Reportable 12/08/23 05:53 Glucose 123 mg/dL (65-115) H 12/08/23 05:53 POC Glucose 171 mg/dL (70-110) H 12/08/23 22:19 Calculated Osmolality 293 mOsm/kg (285-295) 12/08/23 05:53 Lactic Acid 1.6 mmol/L (0.5-2.2) 12/06/23 10:52 Calcium 8.3 mg/dL (8.5-10.5) L 12/08/23 05:53 Magnesium 2.0 mg/dL (1.7-2.3) 12/07/23 07:02 Total Bilirubin 0.3 mg/dL (0.15-1.2) 12/08/23 05:53 AST 16 U/L (0-40) 12/08/23 05:53 ALT 7 U/L (0-41) 12/08/23 05:53 Alkaline Phosphatase 76 U/L (40-130) 12/08/23 05:53 Ammonia 90 umol/L (16-60) H 12/06/23 10:52 Troponin T Baseline 476 ng/L (0-15) H* 12/06/23 10:52 Troponin T 120 Minute 446.5 ng/L (0-15) H 12/06/23 13:20 Delta Troponin T -29.5 ABS# (0-10) L 12/06/23 13:20 Total Protein 5.8 g/dL (6.6-8.7) L 12/08/23 05:53 Albumin 3.4 g/dL (3.5-5.2) L 12/08/23 05:53 Globulin 2.4 g/dL (1.3-4.6) 12/08/23 05:53 Fluid Color Yellow 12/08/23 18:00 Fluid Appearance Clear 12/08/23 18:00 Fluid Specific Grav 1.010 12/08/23 18:00 Fluid pH 8.0 12/08/23 18:00 Fluid WBC 101 /uL 12/08/23 18:00 Fluid RBC 0 10^3/uL 12/08/23 18:00 Fld Polynuclear WBCs # 0.007 12/08/23 18:00 Fld Polynuclear WBCs % 6.900 % 12/08/23 18:00 Fl Mononucl WBCs #(Auto) 0.094 12/08/23 18:00 Fl Mononuclear % Auto 93.100 % 12/08/23 18:00 Fld Crystal Laterality Right middle upper 12/08/23 18:00 Fluid Glucose 157.0 mg/dL 12/08/23 18:00 Fluid Albumin 2.1 g/dL 12/08/23 18:00 Fluid LDH 103 U/L 12/08/23 18:00 Fluid Alk Phosphatase 20 IU/L 12/08/23 18:00 Fluid Cholesterol 46 mg/dL (0-200) 12/08/23 18:00 Fluid Triglycerides 25 mg/dL (0-150) 12/08/23 18:00 Fluid Uric Acid 4 mg/dL 12/08/23 18:00 Pleural Total Protein 3.0 g/dL 12/08/23 18:00 Vitals Last Vital Signs Temp 98.9 F 12/08/23 19:54 Pulse 112 H 12/09/23 08:00 Resp 8 L 12/09/23 18:08 BP 95/60 12/09/23 08:00 Pulse Ox 94 12/09/23 02:19 O2 Del Method BiPAP 12/08/23 19:54 O2 Flow Rate 3 12/09/23 08:00 FiO2 40 12/08/23 23:00 Discharge Plan Discharge Patient Disposition: Home Condition: Stable Prescriptions: No Action garlic 1,000 mg capsule 1,000 mg PO DAILY (DME) [place] to the right See Rx Instructions .Route .MEDSUPPLY Qty: 1 0RF Rx Instructions: As directed (DME) [place] to Right Lower Extremity See Rx Instructions .Route .MEDSUPPLY Qty: 1 0RF Rx Instructions: As directed [facility] [place] [place] [place] FreeStyle [place]cial 2 Sensor Kit MISCELLANEOUS Qty: 1 2RF Rx Instructions: As directed clopidogrel 75 mg tablet 75 mg PO BEDTIME Qty: 90 0RF nitroglycerin [Nitrostat] 0.4 mg Tablet, Sublingual 0.4 mg SUBLINGUAL Q5M PRN (Reason: Chest Pain) Rx Instructions: do not exceed 3 doses per episode resveratrol 100 mg Capsule 100 mg PO BID aspirin 81 mg tablet,delayed release (DR/EC) 81 mg PO BEDTIME Vitamin B Complex Liquid See Rx Instructions .ROUTE .COMPLEX Rx Instructions: one dropperful once a day insulin lispro [Humalog KwikPen Insulin] 100 unit/mL insulin pen See Rx Instructions .ROUTE .COMPLEX Qty: 15 0RF Dose Instruction: inject 10 units SUBCUTANEOUSLY THREE TIMES DAILY Rx Instructions: inject, subcut, tid with meals, based on low dose sliding scale as needed (DME) FreeStyle Marcial 2 [place] Misc MISCELLANEOUS fenugreek seed 610 mg Capsule 610 mg PO DAILY doxycycline hyclate 100 mg capsule 100 mg PO BID 7 Days Qty: 14 0RF Rx Instructions: for 7 days (rx filled 12/02/23) Levemir FlexPen 100 unit/mL (3 mL) insulin pen 10 unit SUBCUT QAM Vitamin B-1 500 mg Tablet 500 mg PO DAILY levothyroxine 175 mcg tablet 175 mcg PO QAM metoprolol tartrate 25 mg tablet 25 mg PO Q12H PRN (Reason: heart rate) [place] Liquid Extract 2.5 ml PO BID Referrals: Evelin Jenkins DO [Primary Care Provider] - Patient Instructions: Altered Mental Status (ED), Opioid Safety Discharge Attestations Time Spent in Discharge Care*: greater than 30 min Status at Discharge: Cognitive status at discharge: cognitively intact , Behavioral status at discharge: cooperative , Quality Metrics Clinical Quality Measures [ No reported AMI, CVA or VTE this stay] Coding Level of Care Code 38081 Total time (in minutes) for Discharge: 35 Diagnoses Elevated troponin I level R79.89 Atherosclerosis of [place] coronary artery of [place] heart without angina pectoris I25.10 Coronary Disease-Associated Artery/Lesion type: [place] artery [place] vs. 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
[2023-12-13 21:00] LABS: Amylase, Peritoneal Fluid <10 U/L; Amylase, Pleural Fluid <10 U/L
== END 2023-12-09 19:18 | disposition expired | DRG 189 ==
LOC: ER 13:29 → ICU 16:00 → MEDSURG 12-08 17:25
PROVIDERS: Hospitalist; Internal Medicine Pulmonary Disease; Admitting Provider Internal Medicine; Emergency Provider Emergency Medicine; PCP Family Medicine; Visit Provider Internal Medicine
DX: J96.22 Acute and chronic respiratory failure with hypercapnia (principal); L89.154 Pressure ulcer of sacral region, stage 4; N18.6 End stage renal disease; I21.4 Non-ST elevation (NSTEMI) myocardial infarction; G93.41 Metabolic encephalopathy; I13.2 Hypertensive heart and chronic kidney disease with heart failure and with stage 5 chronic kidney disease, or end stage renal disease; E46 Unspecified protein-calorie malnutrition; J90 Pleural effusion, not elsewhere classified; R55 Syncope and collapse; E11.22 Type 2 diabetes mellitus with diabetic chronic kidney disease; I50.9 Heart failure, unspecified; Z99.2 Dependence on renal dialysis; I25.10 Atherosclerotic heart disease of native coronary artery without angina pectoris; Z79.4 Long term (current) use of insulin; E03.9 Hypothyroidism, unspecified; R00.0 Tachycardia, unspecified; Z66 Do not resuscitate; E11.51 Type 2 diabetes mellitus with diabetic peripheral angiopathy without gangrene; I25.5 Ischemic cardiomyopathy; E87.70 Fluid overload, unspecified; R09.02 Hypoxemia; Z51.5 Encounter for palliative care; Z79.82 Long term (current) use of aspirin; I48.91 Unspecified atrial fibrillation; Z79.02 Long term (current) use of antithrombotics/antiplatelets; Z95.5 Presence of coronary angioplasty implant and graft; Z86.16 Personal history of COVID-19; Z89.411 Acquired absence of right great toe; Z89.421 Acquired absence of other right toe(s)
CPT/HCPCS: 36415; 36416; 36600; 70450; 71045; 80048; 80051; 80053; 80503; 82042; 82140; 82150; 82330; 82465; 82805; 82945; 82962; 83605; 83615; 83735; 83986; 84075; 84157; 84315; 84478; 84484; 84560; 85025; 87015; 87040; 87070; 87075; 87116; 87205; 87206; 87801; 89050; 90935; 93005; 94660; 94664; 96365; 96372; 96376; 99291; J1644; J2060; J2185; J2270; J7030; P9046; Q3014